=== PATIENT | male | born 1960 | race Caucasian/White ===

== ENCOUNTER → 2018-04-22 05:47 | Outpatient (CLI) | payer OTHER, SELFPAY ==
[2018-04-22 08:19] LABS: Hemoglobin A1c 6.1 % (4.2-6.3)
[2018-04-22 08:27] LABS: Microalbumin:Creatinine Ratio 58.2 mg/g CRE (<30 mg/g CRE)
[2018-04-22 08:35] LABS: ALB/GLOB Ratio 1.2 RATIO (0.9-2.4); AST(SGOT) 22 U/L (15-37); Alanine Aminotransfer ALT/SGPT 28 U/L (16-61); Albumin, Serum 4.3 g/dL (3.2-5.0); Alkaline Phosphatase 85 U/L (45-117); Anion Gap 7 (5-15); BUN 14 mg/dL (7-18); BUN/Creat Ratio 15.3 RATIO (10-20); Calcium,Total 9.4 mg/dL (8.5-10.1); Chloride 90 mmol/L (98-107); Cholesterol 161 mg/dL (200); Creatinine, Serum 0.92 mg/dL (0.70-1.30); EST Glomerular Filtration Rate 90 mL/min (>60); Est Glom Filt Rate - Afr Amer 109 mL/min (>60); Globulin 3.7 g/dL (2.2-4.2); Glucose 115 mg/dL (74-106); High Density Lipoprotein 64 mg/dL; Potassium 3.8 mmol/L (3.5-5.1); Sodium Level 126 mmol/L (136-145); Thyroid Stim Hormone (TSH) 2.23 uIU/mL (0.358-3.74); Triglycerides 52 mg/dL; Very Low Density Lipoprotein 10 mg/dL (5-40)
== END ==
PROVIDERS: Family Provider Family Medicine; PCP Family Medicine; Visit Provider Family Medicine
DX: I10 Essential (primary) hypertension (principal); E78.00 Pure hypercholesterolemia, unspecified; E11.69 Type 2 diabetes mellitus with other specified complication; R80.9 Proteinuria, unspecified
CPT/HCPCS: 36415; 80053; 80061; 82043; 82570; 83036; 84443

== ENCOUNTER → 2019-07-15 | Outpatient (CLI) | payer OTHER, SELFPAY ==
[2019-07-15 08:04] LABS: Microalbumin:Creatinine Ratio 56.5 mg/g CRE (<30 mg/g CRE)
[2019-07-15 08:13] LABS: ALB/GLOB Ratio 1.1 RATIO (0.9-2.4); AST(SGOT) 21 U/L (15-37); Alanine Aminotransfer ALT/SGPT 38 U/L (16-61); Alkaline Phosphatase 107 U/L (45-117); Anion Gap 10 (5-15); BUN 14 mg/dL (7-18); BUN/Creat Ratio 15.6 RATIO (10-20); Calcium,Total 9.4 mg/dL (8.5-10.1); Chloride 92 mmol/L (98-107); Cholesterol 148 mg/dL (200); EST Glomerular Filtration Rate 91 mL/min (>60); Est Glom Filt Rate - Afr Amer 110 mL/min (>60); Globulin 3.7 g/dL (2.2-4.2); Glucose 159 mg/dL (74-106); High Density Lipoprotein 42 mg/dL; Potassium 4.1 mmol/L (3.5-5.1); Protein, Total 7.7 g/dL (6.4-8.2); Sodium Level 130 mmol/L (136-145); Triglycerides 66 mg/dL; Very Low Density Lipoprotein 13 mg/dL (5-40)
[2019-07-15 08:32] LABS: Hemoglobin A1c 6.8 % (4.2-6.3)
[2019-07-27 12:07] LABS: Testosterone, Free 3.71 ng/dL (5.00-21.00)
[2019-07-27 16:50] LABS: Testosterone, % Free 1.67 % (1.50-4.20); Testosterone, Total 222 ng/dL (264-916)
== END | disposition home or self-care (01) ==
LOC: LAB 05:58
PROVIDERS: Family Provider Family Medicine; PCP Family Medicine; Referring Provider Family Medicine; Visit Provider Family Medicine
DX: I10 Essential (primary) hypertension (principal); E29.1 Testicular hypofunction; E11.29 Type 2 diabetes mellitus with other diabetic kidney complication; N28.9 Disorder of kidney and ureter, unspecified
CPT/HCPCS: 36415; 80053; 80061; 82043; 82570; 83036; 84402; 84403

== ENCOUNTER → 2019-09-16 06:07 | Outpatient (CLI) | payer OTHER, SELFPAY ==
[2019-09-16 07:46] LABS: Anion Gap 5 (5-15); BUN 11 mg/dL (7-18); BUN/Creat Ratio 11.6 RATIO (10-20); Calcium,Total 9.2 mg/dL (8.5-10.1); Chloride 95 mmol/L (98-107); Creatinine, Serum 0.95 mg/dL (0.70-1.30); EST Glomerular Filtration Rate 86 mL/min (>60); Est Glom Filt Rate - Afr Amer 104 mL/min (>60); Glucose 293 mg/dL (74-106); Potassium 4.1 mmol/L (3.5-5.1); Sodium Level 129 mmol/L (136-145)
[2019-09-16 08:28] LABS: Osmolality, Serum 283 mOsm/KG (280-301)
[2019-09-16 08:32] LABS: Osmolality, Urine 609 mOsm/KG
[2019-09-20 09:07] LABS: Testosterone, Free 5.63 ng/dL (5.00-21.00)
[2019-09-20 09:47] LABS: Testosterone, % Free 2.67 % (1.50-4.20); Testosterone, Total 211 ng/dL (264-916)
== END ==
PROVIDERS: Family Provider Family Medicine; PCP Family Medicine; Referring Provider Family Medicine; Visit Provider Family Medicine
DX: E87.1 Hypo-osmolality and hyponatremia (principal); R79.89 Other specified abnormal findings of blood chemistry; R53.83 Other fatigue
CPT/HCPCS: 36415; 80048; 83930; 83935; 84402; 84403

== ENCOUNTER → 2019-09-23 12:16 | Outpatient (CLI) | payer OTHER, SELFPAY ==
[2019-09-23 13:24] LABS: Absolute Lymphocyte Count 1.27 X10^3/uL (0.83-4.51); Absolute Neutrophil Count 3.7 X10^3/uL (2.0-7.7); Basophil# 0.09 X10^3/uL; Basophil% 1.5 % (0-1); Eosinophil# 0.22 X10^3/uL; Eosinophils% 3.8 % (0-5); Hematocrit 40.6 % (40-54); Hemoglobin 13.5 g/dL (13.0-16.5); Lymphocyte # 1.27 X10^3/ul (4.0); Lymphocyte % 21.8 % (19-41); Mean Corp Hgb Conc 33.3 g/dL (32-36); Mean Corpuscular Hgb 30.1 pg (27.0-32.0); Mean Corpuscular Volume 90.4 fL (80-94); Mean Platelet Vol. 10.8 fl (6.2-12.0); Monocyte# 0.55 X10^3/uL; Monocyte% 9.5 % (0-10); NRBC Flagged by Analyzer 0 % (0-5); Neutrophil # 3.68 X10^3/uL (2.7-7.7); Neutrophil % 63.2 % (47-70); Platelet Count 350 K/mm3 (150-450); RBC Distribution Width CV 12.8 % (11.6-14.6); RBC Distribution Width SD 42.3 fl (35.1-43.9); Red Blood Count 4.49 M/mm3 (4.6-6.2); White Blood Count 5.8 K/mm3 (4.4-11.0)
[2019-09-23 13:43] LABS: Hemoglobin A1c 9.1 % (4.2-6.3)
[2019-09-23 14:16] LABS: AST(SGOT) 21 U/L (15-37); Alanine Aminotransfer ALT/SGPT 54 U/L (16-61); Albumin, Serum 3.8 g/dL (3.2-5.0); Alkaline Phosphatase 122 U/L (45-117); Anion Gap 7 (5-15); BUN 17 mg/dL (7-18); Calcium,Total 9.1 mg/dL (8.5-10.1); Chloride 99 mmol/L (98-107); EST Glomerular Filtration Rate 81 mL/min (>60); Est Glom Filt Rate - Afr Amer 98 mL/min (>60); Globulin 3.9 g/dL (2.2-4.2); Glucose 239 mg/dL (74-106); Potassium 4.3 mmol/L (3.5-5.1); Protein, Total 7.7 g/dL (6.4-8.2); Sodium Level 132 mmol/L (136-145); Thyroid Stim Hormone (TSH) 1.66 uIU/mL (0.358-3.74)
[2019-09-23 14:39] LABS: Microalbumin:Creatinine Ratio 84.9 mg/g CRE (<30 mg/g CRE)
[2019-09-26 09:40] LABS: PSA,Total - Annual Screen 0.18 ng/mL (0.00-4.00)
== END ==
PROVIDERS: PCP Family Medicine; Referring Provider Family Medicine; Visit Provider Family Medicine
DX: I10 Essential (primary) hypertension (principal); E34.9 Endocrine disorder, unspecified; E11.21 Type 2 diabetes mellitus with diabetic nephropathy
CPT/HCPCS: 36415; 80053; 82043; 82570; 83036; 84153; 84443; 85025; G0103

== ENCOUNTER 2019-11-17 08:01 | Inpatient (IN) | payer OTHER, SELFPAY ==
[2019-11-17] VITALS (14 sets, daily range): BP systolic 135–193; BP diastolic 84–110; PULSE 71–105; RESP 17–27; TEMP 36.5–37.1; O2SAT 79–96; BMI 45.5; BMI 42.8
--- NOTE | 2019-11-17 08:12 | RAD_ITS ---
STUDY: X-RAY CHEST REASON FOR EXAM: Male, 59 years old. Increase SOB TECHNIQUE: Single AP portable view of the chest. COMPARISON: None. FINDINGS: EKG electrodes are seen. There is evidence of vascular congestion and increased interstitial markings in keeping with CHF. There is no demonstrated pleural abnormality. There is mild cardiac enlargement. Normal mediastinum and riana. Normal visualized pulmonary arteries. Normal visualized aortic arch and descending thoracic aorta. There are diffuse degenerative changes of the visualized thoracic spine. Normal visualized ribs, clavicles, and shoulders. There is no demonstrated abnormality of the visualized soft tissue structures of the upper abdomen. RAD/Chest 1 View (Portable) IMPRESSION: Mild cardiomegaly and CHF. Electronically Signed: Tutu Royal, at 8:43 EDT , Service support ,
--- NOTE | 2019-11-17 08:13 | EKG12_ITS ---
Test Reason : SOB Blood Pressure : / mmHG Vent. Rate : 102 BPM Atrial Rate : 102 BPM P-R Int : 208 ms QRS Dur : 102 ms QT Int : 342 ms P-R-T Axes : 000 048 037 degrees QTc Int : 445 ms Sinus tachycardia with occasional Premature ventricular complexes ST depression, consider subendocardial injury Abnormal ECG Confirmed by JOHN CHAPPELL, PHYLLIS ([id number]), editorial specialist SHAW HERNANDEZ ([id number]) on 11/18/2019 1:04:46 PM Referred By: ADELA Confirmed By:ROSALINDA LOPEZ MD
--- NOTE | 2019-11-17 08:15 | ED.VIS.GEN ---
History of Present Illness Chief Complaint: Shortness of Breath Informant: Patient Onset: Days Context: Gradual Onset Timing: Continuous Narrative: Patient is a 59 year old male with history of HTN and DM presenting from home for worsening shortness of breath. He states he is had worsening shortness of breath for the past week or so. He states he has had worsening dyspnea on exertion it was especially bad this morning which is why he came to the emergency room. He had a cough is been productive of sputum that is ranged from green to brown. He does have chest tightness and he states he has chest pain as if he just ran a lot and his lungs hurt. He states he has had some sweating associate with the shortness of breath but is not had any fever. He denies any nausea, vomiting or bowel changes. He denies any swelling of his legs or weight change. Denies any urinary symptoms. He denies any sick contacts. States he is never had problems with his breathing before. He denies any tobacco history. Past Medical History - Allergies and Home Meds Allergies/Adverse Reactions: Allergies No Known Allergies Allergy (Verified 11/17/19 08:02) Primary Care Physician: Josué Rodriguez MD [Primary Care Provider] - Past Medical History: - - Hypertension, hyperlipidemia Surgical History: noncontributory Smoking Status: Never smoker Alcohol: None Drugs: None Review of Systems General: Reports: Malaise, Sweats. Denies: Chills, Fever Eyes: Denies: Visual changes - bilaterally, Diplopia ENT: Denies: Rhinorrhea, Sore throat Cardiovascular: Reports: Chest pain. Denies: Palpitations Respiratory: Reports: Dyspnea, Cough, Sputum, Dyspnea on exertion Gastrointestinal: Denies: Abdominal pain, Nausea, Vomiting, Diarrhea, Melena, Hematochezia Genitourinary: Denies: Dysuria, Hematuria, Frequency Musculoskeletal: Denies: Back pain, Extremity Pain Skin: Denies: Rash, Wounds Neurological: Denies: Headache, Weakness, Numbness Physical Exam Vital Signs/Narrative: Vital Signs Temp Pulse Resp BP Pulse Ox 11/17/19 08:03 98.5 F 105 H 27 H 193/110 H 89 Inital Vital Signs reviewed: Yes General: Well nourished, Well developed, Obese, Acute Distress Head: Normocephalic, Atraumatic Eyes: Perrl, EOMI ENT: Moist mucous membranes, No rhinorrhea Neck: Supple, Nontender, No JVD Cardiovascular: Regular rhythm, No murmurs, Tachycardia Respiratory: Chest nontender, Diminished, Decreased Air Movement. Negative for: Wheezing, Retractions Abdomen: Soft, Nontender, Nondistended, Normal bowel sounds Back: Nontender, Normal Inspection Extremities: Nontender, No edema Skin: Normal color, No rash, Diaphoresis Neurological: Alert, Oriented x3, Cranial nerves II-XII grossly intact, Normal Strength, Normal Sensation Psychological: Normal affect, Normal Mood Diagnostic/Tx/Re-eval Chest X-Ray - ED: 1 View, Read by ED Physician, Read by Radiologist, Cardiomegaly, CHF Clinical Impression(s) from Imaging Studies Chest X-Ray 11/17/19 08:12 IMPRESSION: Mild cardiomegaly and CHF. Electronically Signed: Tutu Lele, at 8:43 EDT , Service support , Laboratory Data 11/17/19 11/17/19 11/17/19 08:10 08:10 08:10 WBC 11.5 H RBC 4.94 Hgb 14.8 Hct 45.5 MCV 92.1 MCH 30.0 MCHC 32.5 RDW Std Deviation 44.2 H RDW Coeff of [place] 13.2 Plt Count 384 MPV 10.9 Immature Gran % (Auto) 0.400 Neut % (Auto) 69.2 Lymph % (Auto) 18.0 L [place] % (Auto) 8.6 Eos % (Auto) 2.8 Baso % (Auto) 1.0 Absolute Neuts (auto) 7.9 H Absolute Lymphs (auto) 2.06 Nucleated RBC % 0 Sodium 136 Potassium 3.7 Chloride 102 Carbon Dioxide 26.0 Anion Gap 8 BUN 17 Creatinine 1.08 Estim Creat Clear Calc 76.50 Est GFR (MDRD) Af Amer 89 Est GFR (MDRD) Non-Af 74 BUN/Creatinine Ratio 15.7 Glucose 342 H Lactic Acid 3.8 H* Calcium 9.2 Troponin I 0.375 H B-Natriuretic Peptide 11/17/19 08:10 WBC RBC Hgb Hct MCV MCH MCHC RDW Std Deviation RDW Coeff of [place] Plt Count MPV Immature Gran % (Auto) Neut % (Auto) Lymph % (Auto) [place] % (Auto) Eos % (Auto) Baso % (Auto) Absolute Neuts (auto) Absolute Lymphs (auto) Nucleated RBC % Sodium Potassium Chloride Carbon Dioxide Anion Gap BUN Creatinine Estim Creat Clear Calc Est GFR (MDRD) Af Amer Est GFR (MDRD) Non-Af BUN/Creatinine Ratio Glucose Lactic Acid Calcium Troponin I B-Natriuretic Peptide 261.9 H - Rhythm Strip Rhythm Strip: Sinus Tach Rate: 102 Ectopy: PVC(s) - EKG Initial EKG Interpretation: Sinus Tachycardia, - - Sinus tachycardia at a rate of 102 with PVCs present Normal axis TX interval [address] depression in lateral leads, no reciprocal changes - Medical Decision Making Patient is evaluated for hypoxia and increased work of breathing. Patient is initially requiring 5 L of O2 it is still only at 90% saturation. Physical exam is more concerning for respiratory infection. Chest x-ray is consistent with cardiomegaly and pulmonary vascular congestion/CHF. His proBNP is also elevated. A fluids which were initially ordered are discontinued. Patient does have an elevated lactic acid but I suspect this is secondary to his hypoxia and not necessarily infectious. Because of the time of year with respiratory illnesses I did order a flu swab and respiratory viral panel however. Patient does have bumped troponin as well. He is given aspirin and IV Lasix in the emergency room. He does have improvement of his respiratory symptoms while in the emergency room and is weaned down on his oxygen. He will be admitted to the PCU for further cardiac evaluation. He is agreeable with this plan. He stable for PCU at time of disposition. Case is discussed with Dr. Wise. ED Disposition - Plan for ED Patient: Disposition: Acute Care Hospital [facility] Diagnosis: Acute exacerbation of CHF (congestive heart failure), Elevated troponin, Acute respiratory failure with hypoxia Referrals: Josué Rodriguez MD [Primary Care Provider] -
[2019-11-17 08:32] LABS: Absolute Lymphocyte Count 2.06 X10^3/uL (0.83-4.51); Absolute Neutrophil Count 7.9 X10^3/uL (2.0-7.7); Basophil# 0.12 X10^3/uL; Eosinophil# 0.32 X10^3/uL; Eosinophils% 2.8 % (0-5); Hematocrit 45.5 % (40-54); Hemoglobin 14.8 g/dL (13.0-16.5); Lymphocyte # 2.06 X10^3/ul (4.0); Mean Corp Hgb Conc 32.5 g/dL (32-36); Mean Corpuscular Volume 92.1 fL (80-94); Mean Platelet Vol. 10.9 fl (6.2-12.0); Monocyte# 0.99 X10^3/uL; Monocyte% 8.6 % (0-10); NRBC Flagged by Analyzer 0 % (0-5); Neutrophil # 7.91 X10^3/uL (2.7-7.7); Neutrophil % 69.2 % (47-70); Platelet Count 384 K/mm3 (150-450); RBC Distribution Width CV 13.2 % (11.6-14.6); RBC Distribution Width SD 44.2 fl (35.1-43.9); Red Blood Count 4.94 M/mm3 (4.6-6.2); White Blood Count 11.5 K/mm3 (4.4-11.0)
[2019-11-17 08:50] LABS: BNP,B-Type NATRIURETIC PEPTIDE 261.9 pg/mL (0-100)
[2019-11-17 08:52] LABS: Anion Gap 8 (5-15); BUN 17 mg/dL (7-18); BUN/Creat Ratio 15.7 RATIO (10-20); Calcium,Total 9.2 mg/dL (8.5-10.1); Chloride 102 mmol/L (98-107); Creatinine, Serum 1.08 mg/dL (0.70-1.30); EST Glomerular Filtration Rate 74 mL/min (>60); Est Glom Filt Rate - Afr Amer 89 mL/min (>60); Glucose 342 mg/dL (74-106); Potassium 3.7 mmol/L (3.5-5.1); Sodium Level 136 mmol/L (136-145)
[2019-11-17 08:53] LABS: Lactic Acid 3.8 mmol/L (0.4-1.9)
[2019-11-17] MEDS: Albuterol 2.5 MG/3 ML VIAL.NEB. INHALATION (08:53)
--- NOTE | 2019-11-17 09:10 | HP.PCM_ITS ---
History of Present Illness Date of Admission: 11/17/19 Chief Complaint: shortness of breath The patient is a 59 year old M with a past medical history which includes diabetes and high blood pressure. He was admitted through the ED on 11/17/2019 with a complaint of shortness of breath which have been going on for a few days but at worsened. Shortness of breath was worsened by exertion and relieved by rest. With exertion he also had chest tightness. He says he has been sleeping with 2 pillows for a while now because of shortness of breath but denied any PND. He did admit to swelling in his lower extremities. He denied any palpitations, dizziness, nausea vomiting or diarrhea. Review of systems other vázquez negative. On review, temperature was 98.8 with blood pressure of 149/90 and pulse rate of 88 as well as respiratory of 17. Blood pressure has been up at 193/110 at time he presented in the ED. Was saturating at 95% on 2 L of oxygen. Chemistry showed lactic acid of 3.8 and initial troponin of 0.375. BNP was 261.9. CBC showed WBC of 11.5 but was otherwise unremarkable. EKG showed mild ST depression in the lateral leads. Chest x-ray showed mild cardiomegaly and CHF. He has been admitted to be managed for acute heart failure with unknown EF and intermediate troponins. [] Past Medical History Past Medical History (Chronic Problems): Chronic Problems Acute exacerbation of CHF (congestive heart failure) (Chronic) Allergies No Known Allergies Allergy (Verified 11/17/19 08:02) Home Medications: Ambulatory Orders Medication Instructions Recorded Acarbose 100 mg PO QHS 11/17/19 Amlodipine [Norvasc] 10 mg PO DAILY 11/17/19 Atorvastatin Calcium [Lipitor] 80 mg PO QHS 11/17/19 Fluticasone 0.05% [Flonase Nasal 2 spray INHALATION DAILY 11/17/19 [place]] Glimepiride 2 mg PO DAILY 11/17/19 Ipratropium [place] 1 spray INHALATION DAILY 11/17/19 Levocetirizine Dihydrochloride 5 mg PO DAILY 11/17/19 Losartan Potassium 100 mg PO QHS 11/17/19 Temazepam 15 mg PO QHS PRN 11/17/19 Testosterone Cypionate 200 mg IM Q14D 11/17/19 metFORMIN HCl [Glucophage] 1,000 mg PO BIDCM 11/17/19 Surgical History: noncontributory Psychiatric History: No pertinent psych hx Lives: Spouse/ Significant Other Smoking Status: Never smoker Alcohol: None Drugs: None - *Family History Maternal History Items: Hypertension Paternal History Items: Heart Disease, Hypertension Review of Systems Constitutional: Denies: Chills, Fever, Malaise, Weakness, Weight Change Eyes: Denies: Blurred vision HEENT: Denies: Head Aches, Sinus Congestion, Sinus Drainage Cardiovascular: Reports: Chest Pressure, Edema. Denies: Chest Pain, Heaviness, Light Headedness, Orthopnea, Palpitations, Paroxysmal Noc. Dyspnea Respiratory: Reports: Shortness of Breath, Shortness of breath upon exertion. Denies: Cough, Shortness of breath at rest, Sputum production Gastrointestinal: Denies: Abdominal Pain, Nausea, Vomiting Genitourinary: Denies: Dysuria Musculoskeletal: Denies: Joint Pain, Joint Tenderness Skin: Denies: Rash, Wounds Neurological: Denies: Numbness, Tingling, Focal weakness Psychiatric: Denies: Anxiety, Depression, Homicidal Ideations, Suicidal Ideations Hematologic/ Lymphatic: Denies: Easy Bruising, Easy Bleeding VTE Information - Inpt Only VTE Present on Admission: No VTE Pharm Prophylaxis ordered?: Yes Patient Problems: Active and Suspected Problems Elevated troponin (Acute) Acute respiratory failure with hypoxia (Acute) - Physical Exam Vitals/I&O's: Vital Signs Temp Pulse Resp BP Pulse Ox 98 F 85 20 H 193/110 H 93 11/17/19 08:04 11/17/19 08:50 11/17/19 08:50 11/17/19 08:04 11/17/19 08:50 Oxygen Flow Rate (L/min) 3.5 Oxygen Delivery Method Nasal Cannula Weight: 326 lb 4.546 oz Body Mass Index (BMI) 45.5 General: Alert, Oriented x3, Cooperative, No apparent distress HEENT: Atraumatic, PERRLA, EOMI, Normocephalic Oral: Moist Mucosa Neck: Supple, No JVD, Negative Carotid Bruits Lungs: - - diminished breath sounds bibasally, no wheezes or crackles. on 2L of oxygen Cardiovascular: Regular rate, Regular Rhythm, Normal S1, Normal S2, No murmurs Abdomen: Bowel Sounds Present, Soft, Non Tender, Non-Distended, No Hepato- splenomegaly Extremities: No clubbing, No cyanosis, Capillary Refill Less than 3 Seconds, - - minimal 1+ pitting pedal edema Skin: No rashes, No breakdown Musculoskeletal: No Tenderness to Palpation of Joints or Extremities Lymphatic: No Cervical, Supraclavicular, or Inguinal Adenopathy Neurological: Cranial nerves II-XII grossly intact, Neuro grossly intact, Motor Exam 5/5 strength throughout Psych/Mental Status: Normal Affect, Appropriate, Alert and oriented to time, place, person, mood and affect Laboratory Results 11/17/19 08:10: WBC 11.5 H, RBC 4.94, Hgb 14.8, Hct 45.5, MCV 92.1, MCH 30.0, MCHC 32.5, RDW Std Deviation 44.2 H, RDW Coeff of [place] 13.2, Plt Count 384, MPV 10.9, Immature Gran % (Auto) 0.400, Neut % (Auto) 69.2, Lymph % (Auto) 18.0 L, [place] % (Auto) 8.6, Eos % (Auto) 2.8, Baso % (Auto) 1.0, Absolute Neuts (auto) 7.9 H, Absolute Lymphs (auto) 2.06, Nucleated RBC % 0 11/17/19 08:10: Sodium 136, Potassium 3.7, Chloride 102, Carbon Dioxide 26.0, Anion Gap 8, BUN 17, Creatinine 1.08, Estim Creat Clear Calc 76.50, Est GFR (MDRD) Af Amer 89, Est GFR (MDRD) Non-Af 74, BUN/Creatinine Ratio 15.7, Glucose 342 H, Calcium 9.2, Troponin I 0.375 H 11/17/19 08:10: Lactic Acid 3.8 H* 11/17/19 08:10: B-Natriuretic Peptide 261.9 H Diagnostic Data Chest X-Ray 11/17/19 08:12 IMPRESSION: Mild cardiomegaly and CHF. Electronically Signed: Tutu Royal, at 8:43 EDT , Service support , Assessment/Plan All Active Problems Elevated troponin (Acute) Acute respiratory failure with hypoxia (Acute) 59 y/o admitted with a complaint of shortness of breath adn chest tightness with exertion 1. Acute heart failure of unknown EF * BNP is 261, it must be noted the patient is obese. * Chest x-ray shows mild cardiomegaly and CHF. * Initial troponin was 0.375 and peaked at 0.384. * No echo on file and patient has no known history of CHF. * Admit to PCU with telemetry * Diuresed with IV Lasix 40 mg twice daily. Monitor intake and output. * Fluid restrictions thousand 500 cc daily. * 2D echo ordered. * Cardiology consulted in light of mild elevated troponins. * 2. Chest pain to r./o ACS * Does complain of exertional chest tightness relieved by rest and is associated with exertional shortness of breath. * Patient symptoms appear to be classic for chest pain of cardiac origin. Initial troponin was 0.375 and peaked at 0.384. * Consult cardiology. Patient is very high risk with his obesity and risk factors of hypertension and diabetes as well as high cholesterol. * I think he will benefit from a cath as he is already high risk. * 3. Hypertension: * Fully controlled * BP was 193/110 at time of admission in ED.On amlodipine 10 mg daily and indapamide 1.25 mg daily. * Also on losartan 100 mg nightly. * IV hydralazine PRN for blood pressure more than 1 60/110. * 4. Type 2 diabetes mellitus: * We will check A1c. * Hold home acarbose and home metformin as well as home glimepiride. * Insulin sliding scale. * Accu-Cheks AC at bedtime. 5. Hyperlipidemia: * We will check lipid panel. * On atorvastatin 80 mg nightly. * DVT prophylaxis; lovenox Code status: full code * Patient and counseled extensively about different types of CODE STATUS including full code, DNR CCA and DNR CCA. Patient elects to be full code. Total [id number] time 18 minutes. Inpatient E&M: 86495 Init Hosp L3 Procedures: 72142 Advncd Care Plan 30 Min
--- NOTE | 2019-11-17 09:13 | ED.RN ---
SEPSIS ALERT INITIATED, LACTIC AND CULTURES ALREADY DRAWN, PER DR CHAPMAN PT HAS CHF
[2019-11-17] MEDS: Furosemide 40 MG/4 ML Vial IV ×2 (09:25→17:25)
[2019-11-17 12:24] LABS: Reflex Lactate? Y
--- NOTE | 2019-11-17 13:17 | ECHOCS_ITS ---
Reason For Study: heart failure Procedure This was a 2D Doppler, Color Flow transthoracic echocardiogram. The study was technically difficult. Due to body habitus. Contrast injection was performed. Exam performed portable in patient room. Left Ventricle Normal LV size. Mild concentric left ventricular hypertrophy. Left ventricular systolic function is normal. The estimated ejection fraction is 65 %. Stage 2 diastolic dysfunction. No regional wall motion abnormalities noted. Right Ventricle Normal RV size. Normal systolic function. Atria The left atrium is moderately enlarged. Normal right atrium. Mitral Valve Mitral valve not well visualized. Tricuspid Valve The tricuspid valve is not well visualized. Aortic Valve The aortic valve is not well visualized. Peak aortic valve gradient 25 mmHg. Mean aortic valve gradient 15 mmHg. Mild aortic stenosis. Great Vessels Normal aortic root. Pericardium/Pleural No pericardial effusion. Medication Diluted definity 3.0ml given slow IV push to enhance endocardial definition. MMode/2D Measurements & Calculations LVIDd: 5.8 cm IVSd: 1.3 cm LVOT diam: 2.3 cm LVIDs: 4.7 cm LVPWd: 1.3 cm LVOT area: 4.3 cm2 RVDd: 3.3 cm FS: 18.8 % Ao root diam: 3.7 cm LAV(MOD-bp): 84.6 ml LA A4 area: 23.5 cm2 LAV(MOD-bp) Indexed: 32.6 ml/m2 LAV(MOD-sp2): 87.6 ml LAV(MOD-sp4): 82.0 ml LA dimension(2D): 5.0 cm RA A4 area: 17.2 cm2 Time Measurements MV dec time: 0.14 sec Doppler Measurements & Calculations MV E max nhan: 90.8 cm/sec Lat Peak E' Nhan: 11.4 cm/sec Med Peak E' Nhan: 5.1 cm/sec MV A max nhan: 75.3 cm/sec E/E' lat: 8.0 E/E' med: 17.9 MV E/A: 1.2 Ao V2 max: 258.5 cm/sec LV V1 max: 101.2 cm/sec SV(LVOT): 81.2 ml Ao max P.4 mmHg LV V1 max P.1 mmHg Ao V2 mean: 193.7 cm/sec LV V1 mean P.4 mmHg Ao mean P.1 mmHg LV V1 mean: 73.7 cm/sec Ao V2 VTI: 49.6 cm LV V1 VTI: 19.0 cm ALBINO(I,D): 1.6 cm2 ALBINO(V,D): 1.7 cm2 PA V2 max: 110.6 cm/sec Interpretation Summary Normal LV size. Mild concentric left ventricular hypertrophy. Left ventricular systolic function is normal. The estimated ejection fraction is 65 %. The left atrium is moderately enlarged. Stage 2 diastolic dysfunction. Ordering Physician: Marilyn Wise Referring Physician: Josué Rodriguez Performed By: Abi Koch, VANNESA, RVT
[2019-11-17 13:19] LABS: Lactic Acid 1.9 mmol/L (0.4-1.9)
[2019-11-17 13:58] LABS: Cholesterol 181 mg/dL (200); High Density Lipoprotein 42 mg/dL; Triglycerides 116 mg/dL; Very Low Density Lipoprotein 23 mg/dL (5-40)
[2019-11-17] MEDS: 0.9% Saline Lock 10 ML Syringe IV (17:25)
--- NOTE | 2019-11-17 17:31 | CON.PCM_ITS ---
Reason for Consult Date of Consultation: 11/17/19 Reason for Consultation: Shortness of breath and chest pain History of Present Illness: The patient is a 59 year old M with a past medical history which includes diabetes, hyperlipidemia, obesity and high blood pressure. He was admitted through the ED on 11/17/2019 with a complaint of shortness of breath which have been going on for a few days but at worsened. Shortness of breath was worsened by exertion and relieved by rest. With exertion he also had chest tightness. He says he has been sleeping with 2 pillows for a while now because of shortness of breath but denied any PND. He did admit to swelling in his lower extremit ies. He denied any palpitations, dizziness, nausea vomiting or diarrhea. He has not had any near syncope or syncope. He says that his exertional capacity has reduced quite a bit. Due to the concerns of the above he presented to the emergency room. He was evaluated he was noted to have mildly elevated blood pressure, elevated natruretic peptide level as well as EKG changes with lateral ST depression. Troponins were also noted to be abnormal. Cardiology was called for further evaluation and management. Past Medical History Allergies/Adverse Reactions: Allergies No Known Allergies Allergy (Verified 11/17/19 08:02) Home Medications: Ambulatory Orders Medication Instructions Recorded Acarbose 100 mg PO QHS 11/17/19 Amlodipine [Norvasc] 10 mg PO DAILY 11/17/19 Atorvastatin Calcium [Lipitor] 80 mg PO QHS 11/17/19 Fluticasone 0.05% [Flonase Nasal 2 spray INHALATION DAILY 11/17/19 [place]] Glimepiride 2 mg PO DAILY 11/17/19 Ipratropium [place] 1 spray INHALATION DAILY 11/17/19 Levocetirizine Dihydrochloride 5 mg PO DAILY 11/17/19 Losartan Potassium 100 mg PO QHS 11/17/19 Temazepam 15 mg PO QHS PRN 11/17/19 Testosterone Cypionate 200 mg IM Q14D 11/17/19 metFORMIN HCl [Glucophage] 1,000 mg PO BIDCM 11/17/19 Past Medical History (Chronic Problems): Chronic Problems Acute exacerbation of CHF (congestive heart failure) (Chronic) Surgical History: noncontributory Psychiatric History: No pertinent psych hx - *Family History Maternal History Items: Hypertension Paternal History Items: Heart Disease, Hypertension Lives: Spouse/ Significant Other Smoking Status: Never smoker Tobacco Use: Non-smoker Alcohol: None Drugs: None Review of Systems - Review of Systems General: Denies: Fever, Night Sweats, Fatigue HEENT: Denies: Vision Change Cardiovascular: Reports: Chest Discomfort, Chest Discomfort with Exertion, Shortness of Breath, Shortness of Breath at Rest, Shortness of Breath with Exertion, Peripheral Edema. Denies: Orthopnea, PND, Palpitations, Lightheadedness, Dizziness, Near Syncope, Syncope Respiratory: Denies: Cough, Sputum Production, Hemoptysis Gastrointestinal: Denies: Hematemesis, Hematochezia, Melena Genitourinary: Denies: Dysuria, Hematuria Muscoloskeletal: Denies: Myalgias Skin: Denies: Rash Neurological: Denies: Dizziness Psychiatric: Denies: Anxiety Endocrine: Denies: Unexplained Weight Loss Hematologic/ Lymphatic: Denies: Anemia Subjectve: Pleasant gentleman in no distress at this time sitting in bed Objective: Vital Signs Temp Pulse Resp BP Pulse Ox 97.7 F L 81 18 143/90 H 95 11/17/19 13:20 11/17/19 13:25 11/17/19 13:20 11/17/19 13:20 11/17/19 13:20 Oxygen Flow Rate (L/min) 2 Oxygen Delivery Method Room Air Weight: 307 lb 1.663 oz Body Mass Index (BMI) 42.8 Intake and Output for Last 24 Hours 11/15/19 11/16/19 11/17/19 23:59 23:59 23:59 Intake Total 240 / 240 Output Total 300 / 300 Balance -60 / -60 General: Awake, Alert, Oriented x 3 HEENT: PERRL, EOMI, Sclera Non Icteric Neck: Supple, Good ROM, No Lymph Node Enlargement Lungs: Diminished Sam Bases Cardiovascular: Regular Rhythm, Normal S1, Normal S2, No Murmurs, No Rubs, No Gallops Vascular: No Carotid Bruits, Normal Femoral Pulses, Normal Radial Pulses, Normal Dorsalis Pedal Pulse, Normal Posterior Tibial Pulses Abdomen: Bowel Sounds Present, Soft, Non Tender, No HSM, No Organomegaly Extremities: No Cyanosis, No Clubbing, Trace RLE Edema, Trace LLE Edema Musculoskeletal: No Erythema Skin: No Rashes Lymphatic: No Lymph Node Enlargement Neurological: No Focal Motor or Sensory Deficit Psych/Mental Status: Appropriate 11/17/19 08:10: WBC 11.5 H, RBC 4.94, Hgb 14.8, Hct 45.5, MCV 92.1, MCH 30.0, MCHC 32.5, Plt Count 384, MPV 10.9, Immature Gran % (Auto) 0.400, Neut % (Auto) 69.2, Lymph % (Auto) 18.0 L, [place] % (Auto) 8.6, Eos % (Auto) 2.8, Baso % (Auto) 1.0, Absolute Neuts (auto) 7.9 H, Nucleated RBC % 0 11/17/19 08:10: Sodium 136, Potassium 3.7, Chloride 102, Carbon Dioxide 26.0, An ion Gap 8, BUN 17, Creatinine 1.08, Est GFR (MDRD) Af Amer 89, Est GFR (MDRD) Non-Af 74, BUN/Creatinine Ratio 15.7, Glucose 342 H, Calcium 9.2, Troponin I 0.375 H 11/17/19 08:10: Lactic Acid 3.8 H* 11/17/19 08:10: B-Natriuretic Peptide 261.9 H 11/17/19 08:10: Triglycerides 116, Cholesterol 181, LDL Cholesterol 116, VLDL Cholesterol 23, HDL Cholesterol 42 11/17/19 12:10: Troponin I 0.368 H 11/17/19 12:35: Lactic Acid 1.9 11/17/19 15:08: Troponin I 0.384 H Rhythm: EKG: Normal sinus rhythm with lateral ST changes ECHO: Preserved left ventricular systolic function. Estimated EF 65% Stress Test: Cardiac Cath: PCI: CT Surgery: Holter monitor: EPS: PPM: CXR: Chest CT Scan: Assessment/Plan 1. Shortness of breath-congestive heart failure with preserved ejection fraction * Patient presents with progressive shortness of breath and noted to have an elevated natruretic peptide level. The above appears to be consistent with congestive heart failure with preserved ejection fraction. My recommendation would be to institute diuresis with intravenous Lasix. * The exact etiology is unclear at this particular time. It could be secondary to hypertension or occult coronary artery disease. * 2. Abnormal cardiac enzymes * Patient presents with shortness of breath and is noted to have abnormal cardiac enzymes together with EKG changes in the lateral leads. With his risk factors of obesity, hypertension, diabetes mellitus, hyperlipidemia my suspicion for coronary artery disease is high. I would recommend at this time that we consider a left heart catheterization. The risk benefits and alternatives of been explained to them they understand and agreed to proceed. This was discussed with the patient and his . * 3. Hypertension * Continue current medical therapy with amlodipine, losartan, and consider metoprolol 50 mg long-acting daily * 4. Risk factor modification * Patient will need aggressive risk factor modification. This would include diet, exercise as well as continuation of his lipid-lowering therapy. * * Thank you for allowing me to participate in the care of your patient. Please don't hesitate to call if any issues arise
[2019-11-17] MEDS: Insulin Lispro 100 UNIT/ML INSULN.PEN SC ×2 (18:05→21:10)
[2019-11-17 18:15] LABS: Bedside Glucose 228 mg/dL (70-110)
[2019-11-17] MEDS: Clopidogrel Bisulfate 300 MG Tablet PO (18:44)
[2019-11-17 20:21] LABS: Bacteria 0 SEEN /hpf (None Seen); Mucous, Urine 0 SEEN /hpf (<or=2+); Red Blood Cells-Urine 0 SEEN /hpf (0-5); Squamous Epithelial Cells - UA 0 SEEN /hpf (0-5); White Blood Cells 0 SEEN /hpf (0-5)
[2019-11-17 20:23] LABS: Color, Urine Yellow (Yellow); Glucose, Dipstick 250 mg/dl (Normal); Ketone-Dipstick Negative (Negative); Leukocyte Esterase-Dipstick Negative /ul (Negative); Nitrite-Dipstick Negative (Negative); Occult Blood-Urine 10 /ul (Negative); Protein-Dipstick 100 mg/dl (Negative); Specific Gravity, Urine 1.015 (1.002-1.030); Urine Bilirubin Dipstick Negative (Negative); Urine Clarity Sl. Cloudy (Clear); Urine Urobilinogen Normal (Normal)
[2019-11-17] MEDS: Metoprolol(XL)Succ 50 MG Tablet PO (21:00)
[2019-11-17] MEDS: Atorvastatin Calcium 80 MG Tablet PO (21:05)
[2019-11-17] MEDS: Losartan Potassium 100 MG Tablet PO (21:05)
[2019-11-17] MEDS: Temazepam 15 MG Capsule PO (21:10)
[2019-11-17 23:26] LABS: Bedside Glucose 271 mg/dL (70-110)
[2019-11-18] VITALS (17 sets, daily range): BP systolic 125–156; BP diastolic 78–106; PULSE 62–75; RESP 16–20; TEMP 36.6–36.8; O2SAT 90–97
--- NOTE | 2019-11-18 05:55 | EKG12_ITS ---
Test Reason : AM EKG Blood Pressure : / mmHG Vent. Rate : 069 BPM Atrial Rate : 069 BPM P-R Int : 246 ms QRS Dur : 100 ms QT Int : 422 ms P-R-T Axes : 038 033 064 degrees QTc Int : 452 ms Sinus rhythm with 1st degree A-V block Nonspecific ST and T wave abnormality Abnormal ECG When compared with ECG of 17-NOV-2019 08:07, MANUAL COMPARISON REQUIRED, DATA IS UNCONFIRMED Confirmed by ELDA CHAPPELL, GALI ([id number]), material expeditor SHAW HERNANDEZ ([id number]) on 11/22/2019 7:50:49 AM Referred By: CHELSEY Confirmed By:GALI SCHROEDER MD
[2019-11-18 05:58] LABS: Absolute Lymphocyte Count 1.31 X10^3/uL (0.83-4.51); Absolute Neutrophil Count 4.8 X10^3/uL (2.0-7.7); Basophil# 0.09 X10^3/uL; Basophil% 1.2 % (0-1); Eosinophil# 0.23 X10^3/uL; Eosinophils% 3.2 % (0-5); Hematocrit 40.3 % (40-54); Hemoglobin 13.1 g/dL (13.0-16.5); Lymphocyte # 1.31 X10^3/ul (4.0); Lymphocyte % 18.1 % (19-41); Mean Corp Hgb Conc 32.5 g/dL (32-36); Mean Corpuscular Hgb 29.8 pg (27.0-32.0); Mean Corpuscular Volume 91.6 fL (80-94); Mean Platelet Vol. 10.9 fl (6.2-12.0); Monocyte% 11.1 % (0-10); NRBC Flagged by Analyzer 0 % (0-5); Neutrophil # 4.78 X10^3/uL (2.7-7.7); Neutrophil % 66.1 % (47-70); Platelet Count 317 K/mm3 (150-450); RBC Distribution Width CV 13.2 % (11.6-14.6); RBC Distribution Width SD 44.2 fl (35.1-43.9); White Blood Count 7.2 K/mm3 (4.4-11.0)
[2019-11-18 06:45] LABS: Anion Gap 6 (5-15); BUN 17 mg/dL (7-18); BUN/Creat Ratio 15.9 RATIO (10-20); Calcium,Total 8.4 mg/dL (8.5-10.1); Chloride 100 mmol/L (98-107); Creatinine, Serum 1.07 mg/dL (0.70-1.30); EST Glomerular Filtration Rate 75 mL/min (>60); Est Glom Filt Rate - Afr Amer 90 mL/min (>60); Estimated Creatinine Clearance 77.22 ml/min; Glucose 258 mg/dL (74-106); Potassium 3.7 mmol/L (3.5-5.1); Sodium Level 136 mmol/L (136-145)
[2019-11-18] MEDS: Metoprolol(XL)Succ 50 MG Tablet PO (06:50)
[2019-11-18] MEDS: Clopidogrel Bisulfate 75 MG Tablet PO (06:50)
[2019-11-18] MEDS: amLODIPine 10 MG Tablet PO (06:50)
[2019-11-18] MEDS: Aspirin 81 MG TAB.CHEW PO (06:50)
[2019-11-18 07:21] LABS: Bedside Glucose 264 mg/dL (70-110)
[2019-11-18] MEDS: Insulin Lispro 100 UNIT/ML INSULN.PEN SC (07:21)
--- NOTE | 2019-11-18 09:13 | CASEMGMT ---
According to the [employer] website, the following are in-network tertiary facilities: [facility], [place], [place], [facility], [facility], [facility], and . Bakari PENNINGTON CM
[2019-11-18 11:15] LABS: Bedside Glucose 239 mg/dL (70-110)
--- NOTE | 2019-11-18 11:19 | NURSING ---
report called to catheterization laboratory technician.
--- NOTE | 2019-11-18 12:00 | CASEMGMT ---
This RN CM to room to complete CM assessment at this time and pt is out of the dept for heart cath at this time. Will attempt again later. SStlynda PENNINGTON CM
--- NOTE | 2019-11-18 12:49 | PN.CARD_ITS ---
Subjectve: patient seen and evaluated Objective: Vital Signs Temp Pulse Resp BP Pulse Ox 97.8 F 66 18 143/81 H 94 11/18/19 10:15 11/18/19 10:15 11/18/19 10:15 11/18/19 10:15 11/18/19 10:15 Oxygen Flow Rate (L/min) 2 Oxygen Delivery Method Room Air Weight: 308 lb 3.3 oz Body Mass Index (BMI) 42.8 Intake and Output for Last 24 Hours 11/16/19 11/17/19 11/18/19 23:59 23:59 23:59 Intake Total 480 / 480 Output Total 1700 / 1700 750 / 750 Balance -1220 / -1220 -750 / -750 General: Awake, Alert, Oriented x 3 HEENT: PERRL, EOMI, Sclera Non Icteric Neck: Supple, Good ROM, No Lymph Node Enlargement Lungs: Clear to auscultation Cardiovascular: Regular Rhythm, Normal S1, Normal S2, No Murmurs, No Rubs, No Gallops Vascular: No Carotid Bruits, Normal Femoral Pulses, Normal Radial Pulses, Normal Dorsalis Pedal Pulse, Normal Posterior Tibial Pulses Abdomen: Bowel Sounds Present, Soft, Non Tender, No HSM, No Organomegaly Extremities: No Cyanosis, No Clubbing, No edema Musculoskeletal: No Erythema Skin: No Rashes Lymphatic: No Lymph Node Enlargement Neurological: No Focal Motor or Sensory Deficit Psych/Mental Status: Appropriate 11/17/19 08:10: Triglycerides 116, Cholesterol 181, LDL Cholesterol 116, VLDL Cholesterol 23, HDL Cholesterol 42 11/17/19 12:35: Lactic Acid 1.9 11/17/19 15:08: Troponin I 0.384 H 11/17/19 16:25: Urine Color Yellow, Urine Clarity Sl. Cloudy, Urine pH 6.0, Ur Specific [place] 1.015, Urine Protein 100 H, Urine Glucose (UA) 250 H, Urine Ketones Negative, Urine Occult Blood 10 H, Urine Nitrite Negative, Urine Bilirubin Negative, Urine Urobilinogen Normal, Ur Leukocyte Esterase Negative, Urine RBC 0 SEEN, Urine WBC 0 SEEN 11/18/19 05:30: WBC 7.2, RBC 4.40 L, Hgb 13.1, Hct 40.3, MCV 91.6, MCH 29.8, MCHC 32.5, Plt Count 317, MPV 10.9, Immature Gran % (Auto) 0.300, Neut % (Auto) 66.1, Lymph % (Auto) 18.1 L, [place] % (Auto) 11.1 H, Eos % (Auto) 3.2, Baso % (Auto) 1.2 H, Absolute Neuts (auto) 4.8, Nucleated RBC % 0 11/18/19 05:30: Sodium 136, Potassium 3.7, Chloride 100, Carbon Dioxide 30.0, Anion Gap 6, BUN 17, Creatinine 1.07, Est GFR (MDRD) Af Amer 90, Est GFR (MDRD) Non-Af 75, BUN/Creatinine Ratio 15.9, Glucose 258 H, Calcium 8.4 L Rhythm: EKG: ECHO: Stress Test: Cardiac Cath: PCI: CT Surgery: Holter monitor: EPS: PPM: CXR: Chest CT Scan: Medical Necessity - Tobacco Use Smoking Status: Never smoker Tobacco Use: Non-smoker Assessment/Plan 1. Shortness of breath-congestive heart failure with preserved ejection fraction * Patient presents with progressive shortness of breath and noted to have an elevated natruretic peptide level. The above appears to be consistent with congestive heart failure with preserved ejection fraction. My recommendation would be to institute diuresis with intravenous Lasix. * The exact etiology is unclear at this particular time. It could be secondary to hypertension or occult coronary artery disease. * 2. Abnormal cardiac enzymes * Patient presents with shortness of breath and is noted to have abnormal cardiac enzymes together with EKG changes in the lateral leads. With his risk factors of obesity, hypertension, diabetes mellitus, hyperlipidemia my suspicion for coronary artery disease is high. * Cardiac catheterization demonstrated evidence of triple-vessel disease with a totally occluded right and severely diseased LAD and circumflex artery. Based on the above angiographic findings the patient will be considered for coronary artery bypass surgery electively. The patient will be discharged and followed up as an outpatient. The surgeon has been contacted. 3. Hypertension * Continue current medical therapy with amlodipine, losartan, and consider metoprolol 50 mg long-acting daily * 4. Risk factor modification * Patient will need aggressive risk factor modification. This would include diet, exercise as well as continuation of his lipid-lowering therapy. * * Thank you for allowing me to participate in the care of your patient. Please don't hesitate to call if any issues arise
[2019-11-18] MEDS: 0.9% Normal Saline 1,000 ML 75 ML IV (13:14)
[2019-11-18] MEDS: Furosemide 40 MG Tablet PO (13:58)
--- NOTE | 2019-11-18 14:39 | CL.D_ITS ---
Patient Name: HILARIA MOREIRA Study Date: 11/18/2019 Performing: Ian Rondon MD Ht: 71 inches 180 cm : 1960 Wt: 309.1 lbs 140 kg Age: 59 Gender: male BSA: 2.53 PROCEDURE(S) PERFORMED [id number] CLINICAL PROFILE AND INDICATIONS Indications: Suspected CAD Heart Failure: NYHA Class: 2, Newly Diagnosed: Yes, Heart Failure Type: Diastolic Stress/Imaging Stress/Image Study Performed: No CONCLUSIONS Triple-vessel disease involving a totally occluded dominant right coronary artery, moderately severe disease noted in the left anterior descending artery, ramus intermedius, and circumflex artery. Pres erved ejection fraction RECOMMENDATIONS Surgery consult for coronary revascularization DESCRIPTION OF PROCEDURE The patient arrived to the procedure lab. The risks and benefits of the procedure as well as a full d escription of our services here and current unavailability of surgical backup were fully explained to the patient and/or their significant other prior to the catheterization. The Timeout was completed, verifying the correct patient and procedure. The patient's procedural site was prepped and draped in the usual fashion. Local anesthetic was given subcutaneously to right radial region with Lidocaine 2% . Using a modified Seldinger technique, arterial access was obtained via the right radial artery, a 6 Fr sheath was inserted. Left Coronary Artery selective angiography was performed in multiple views u sing a 5 Fr. JL 5 catheter.The arterial sheath was pulled and a TR Band was applied for hemostasis CORONARY ANGIOGRAPHY DOMINANCE: Right Dominant LEFT HEART ASSESSMENT Left Ventricular Ejection Fraction: by Echo 65 % Normal LV wall motion LEFT MAIN: Moderate calcification LEFT ANTERIOR DESCENDING ARTERY: PROX LAD: Moderate calcification, 70 % Stenosis CIRCUMFLEX ARTERY: Diffusely diseased up to 70 % RAMUS: Moderate luminal irregularities up to 50% RIGHT CORONARY ARTERY: is occluded COLLATERAL FLOW: Collateral flow from Left to Right COMPLICATIONS No Complications PROCEDURE MEDICATIONS Versed 1 mg IV Fentanyl 50 mcg IV Heparin diluted in 23cc Heparinized saline. Patient given 10cc IA of this solution. 11/18/2019 12:10: 19 Verapamil 2.5mg, Ntg 100mcgs, 2000 units of Heparin diluted in 23cc Heparinized saline. Patient give n 10cc IA of this solution. 11/18/2019 12:10:19 SUMMARY OF HEMODYNAMIC DATA Time AIR REST ECG 11:51:39 AO 119/82 (98) SA 12:15:26 AO 133/83 (105) 12:33:39 Signed By Ian Rondon MD On 11/18/2019 14:38:09 Ian Rondon MD
--- NOTE | 2019-11-18 15:01 | PCM.DC ---
- Discharge Diagnoses Current Active Problems: Current Active and Chronic Problems Acute exacerbation of CHF (congestive heart failure) (Chronic) Elevated troponin (Acute) Acute respiratory failure with hypoxia (Acute) You will use the following diet at home:: Cardiac Discharge Activity: Return to Normal Activity Call your doctor if you observe: Shortness of breath, Dizziness, Fainting spells, Chest pain Additional Instructions: HOLD metformin 48 hours following heart cath. Allergies/Adverse Reactions: Allergies No Known Allergies Allergy (Verified 11/17/19 08:02) Medications to take at Discharge Acarbose 100 mg PO QHS 11/17/19 Amlodipine [Norvasc] 10 mg PO DAILY 11/17/19 Atorvastatin Calcium [Lipitor] 80 mg PO QHS 11/17/19 Fluticasone 0.05% [Flonase Nasal Jay] 2 spray INHALATION DAILY 11/17/19 Glimepiride 2 mg PO DAILY 11/17/19 Ipratropium [place] 1 spray INHALATION DAILY 11/17/19 Levocetirizine Dihydrochloride 5 mg PO DAILY 11/17/19 Losartan Potassium 100 mg PO QHS 11/17/19 Temazepam 15 mg PO QHS PRN 11/17/19 Testosterone Cypionate 200 mg IM Q14D 11/17/19 metFORMIN HCl [Glucophage] 1,000 mg PO BIDCM 11/17/19 Aspirin [Aspirin, Baby] 81 mg PO DAILY@0800 #30 tab.chew 11/18/19 Furosemide [Lasix] 40 mg PO BID@1000,1800 #60 tab 11/18/19 Metoprolol(XL)Succ [Toprol Xl (Beta Chidi)] 50 mg PO DAILY #30 tab 11/18/19 The following prescriptions were given: Aspirin [Aspirin, Baby] 81 mg PO DAILY@0800 #30 tab.chew Transmission Status: Pending to [facility] Furosemide [Lasix] 40 mg PO BID@1000,1800 #60 tab Transmission Status: Pending to [facility] Metoprolol(XL)Succ [Toprol Xl (Beta Chidi)] 50 mg PO DAILY #30 tab Transmission Status: Pending to [facility] Primary Care Physician: Josué Rodriguez MD [Primary Care Provider] - Please follow up with your Primary Care Physician in: 1 Week Test Results: Test results from this visit will be discussed in further detail at your follow-up appointment, if applicable. Please Follow Up With: Bishop Ledesma When: Office to call you to set up appt. Tentatively for Thursday Please Follow Up With: Ian Rondon MD When: 4-6 weeks following surgery for routine cardiology follow up Proposed Discharge Date: 11/18/19
--- NOTE | 2019-11-18 15:08 | PCM.DC.SUM ---
<Qian Mckeon - Last Filed: 11/18/19 15:22> Discharge Date and Diagnosis Date of Admission: 11/17/19 Date of Discharge: 11/18/19 - Primary Discharge Diagnosis Active and Suspected Problems 1. Acute heart failure with preserved ejection fraction with associated acute hypoxic respiratory insufficiency 2. Abnormal cardiac enzymes/CAD, triple-vessel disease 3. Type 2 diabetes mellitus 4. Hypertension 5. Hyperlipidemia 6. Morbid obesity - Secondary Discharge Diagnosis Chronic Problems History of left heart catheterization (Chronic 11/18/19) Triple-vessel disease involving a totally occluded dominant right coronary artery, moderately severe disease noted in the left anterior descending artery, ramus intermedius, and circumflex artery. Preserved ejection fraction. Surgery consult for coronary revascularization. 11/18/2019 per [employer] C[employer]TING SUPERVISOR @ [facility] Triple vessel coronary artery disease (Chronic) Arteriosclerotic cardiovascular disease (Chronic) Triple-vessel disease involving a totally occluded dominant right coronary artery, moderately severe disease noted in the left anterior descending artery, ramus intermedius, and circumflex artery. Preserved ejection fraction. Surgery consult for coronary revascularization. 11/18/2019 per CORD[employer] C[employer]TING SUPERVISOR @ [facility] Acute exacerbation of CHF (congestive heart failure) (Chronic) Hospital Course and Treatment Imaging Results: Diagnostic Data Chest X-Ray 11/17/19 08:12 IMPRESSION: Mild cardiomegaly and CHF. Electronically Signed: Tutu Royal, at 8:43 EDT , Service support , Dr. Rondon- Cardiology Operations: None Procedures: 2-D Echocardiogram, Cardiac catheterization Summary of Care Provided: The patient is a 59 year old M admitted 11/17/2019 due to shortness of breath. 1. Acute heart failure with preserved ejection fraction with associated acute hypoxic respiratory insufficiency-BNP 261. CXR with mild CHF. Echocardiogram demonstrated EF 65%, stage II diastolic dysfunction. IV Lasix during admission. Transition to oral Lasix 40 mg twice daily at discharge. Oxygen stable on room air. Walking pulse ox to be completed prior to discharge. Patient referred to tertiary facility on outpatient basis for coronary revascularization. Follow-up with primary care physician and cardiology upon discharge from surgery. 2. Abnormal cardiac enzymes/CAD, triple-vessel disease- Cardiac catheterization demonstrated triple-vessel disease involving a totally occluded dominant right coronary artery, moderately severe disease noted in the left anterior descending artery, ramus intermedius and circumflex artery. Referred to [facility], Dr. Ledesma for coronary revascularization. Patient will follow-up as outpatient to have this scheduled. Continue aspirin, statin, beta-chidi, losartan, Lasix. 3. Type 2 diabetes mellitus-continue home oral regimen. Hold metformin for 48 hours following cath. 4. Hypertension-stable, continue amlodipine, losartan. Additionally added on Lasix and metoprolol. 5. Hyperlipidemia-continue high-dose statin. 6. Morbid obesity-encouraged diet lifestyle modifications. Patient seen and examined prior to discharge. Physical assessment as noted below. Patient is stable for discharge with follow up recommendations as noted above. This patient was seen by ADALID Landeros under the supervision of Dr. Dejesus. - Physical Exam Vitals/I&O's: Vital Signs Temp Pulse Resp BP Pulse Ox 98.3 F 69 18 144/79 H 92 11/18/19 15:00 11/18/19 15:00 11/18/19 15:00 11/18/19 15:00 11/18/19 15:00 Oxygen Flow Rate (L/min) 2 Oxygen Delivery Method Room Air Weight: 308 lb 3.3 oz Body Mass Index (BMI) 42.8 Intake and Output for Last 24 Hours 11/16/19 11/17/19 11/18/19 23:59 23:59 23:59 Intake Total 480 / 480 Output Total 1700 / 1700 750 / 750 Balance -1220 / -1220 -750 / -750 General: Alert, Oriented x3, Cooperative HEENT: Atraumatic, PERRLA, EOMI, Normocephalic Neck: Supple, No JVD, Negative Carotid Bruits Lungs: Clear to auscultation, Normal air movement Cardiovascular: Regular rate, Regular Rhythm, Normal S1, Normal S2, No murmurs Abdomen: Bowel Sounds Present, Soft, Non Tender, Non-Distended, Obese Extremities: No clubbing, No cyanosis, No edema, Capillary Refill Less than 3 Seconds Skin: No rashes, No breakdown Musculoskeletal: No Tenderness to Palpation of Joints or Extremities Neurological: Cranial nerves II-XII grossly intact, Neuro grossly intact Psych/Mental Status: Normal Affect, Appropriate Microbiology Past 72 Hours 11/17/19 09:00 Mucosa - Throat Respiratory Panel (PCR) - Final 11/17/19 09:00 Mucosa - Nose Influenza Types A,B Direct FA (BRANDON) - Final Laboratory Results 11/17/19 15:08: Troponin I 0.384 H 11/17/19 16:25: Urine Color Yellow, Urine Clarity Sl. Cloudy, Urine pH 6.0, Ur Specific [place] 1.015, Urine Protein 100 H, Urine Glucose (UA) 250 H, Urine Ketones Negative, Urine Occult Blood 10 H, Urine Nitrite Negative, Urine Bilirubin Negative, Urine Urobilinogen Normal, Ur Leukocyte Esterase Negative, Urine RBC 0 SEEN, Urine WBC 0 SEEN, Ur Squamous Epith Cells 0 SEEN, Urine Bacteria 0 SEEN, Urine Mucus 0 SEEN 11/17/19 16:49: POC Glucose 228 H 11/17/19 21:07: POC Glucose 271 H 11/18/19 05:30: WBC 7.2, RBC 4.40 L, Hgb 13.1, Hct 40.3, MCV 91.6, MCH 29.8, MCHC 32.5, RDW Std Deviation 44.2 H, RDW Coeff of [place] 13.2, Plt Count 317, MPV 10.9, Immature Gran % (Auto) 0.300, Neut % (Auto) 66.1, Lymph % (Auto) 18.1 L, Major % (Auto) 11.1 H, Eos % (Auto) 3.2, Baso % (Auto) 1.2 H, Absolute Neuts (auto) 4.8, Absolute Lymphs (auto) 1.31, Nucleated RBC % 0 11/18/19 05:30: Sodium 136, Potassium 3.7, Chloride 100, Carbon Dioxide 30.0, Anion Gap 6, BUN 17, Creatinine 1.07, Estim Creat Clear Calc 77.22, Est GFR (MDRD) Af Amer 90, Est GFR (MDRD) Non-Af 75, BUN/Creatinine Ratio 15.9, Glucose 258 H, Calcium 8.4 L 11/18/19 06:48: POC Glucose 264 H 11/18/19 11:08: POC Glucose 239 H Current Medications Albuterol Sulfate (Ventolin Aerosols) 2.5 mg INHALATION Q2H PRN PRN PRN Reason: SOB/Wheezing Amlodipine Besylate (Norvasc) 10 mg PO DAILY [facility] Last Admin: 11/18/19 06:50 Dose: 10 mg Documented by: Aspirin (Aspirin, Baby) 81 mg PO DAILY@0800 [facility] Last Admin: 11/18/19 06:50 Dose: 81 mg Documented by: Atorvastatin Calcium (Lipitor) 80 mg PO QHS [facility] Last Admin: 11/17/19 21:05 Dose: 80 mg Documented by: Dextrose (D50w Syringe) 0 gm IV X1 PRN; Protocol PRN Reason: Hypoglycemia Enoxaparin Sodium (Lovenox) 40 mg SC DAILY [facility] Last Admin: 11/18/19 07:00 Dose: Not Given Documented by: Fluticasone Propionate (Flonase Nasal [place]) 2 spray NASAL DAILY [facility] Last Admin: 11/18/19 11:09 Dose: Not Given Documented by: Furosemide (Lasix) 40 mg PO BID@1000,1800 [facility] Last Admin: 11/18/19 13:58 Dose: 40 mg Documented by: Glucagon () 1 mg IM .X1 PRN PRN Reason: Hypoglycemia Sodium Chloride () 1,000 mls @ 0 mls/hr IV .Q0M [facility] Sodium Chloride () 1,000 mls @ 75 mls/hr IV .[id number] [facility] Last Admin: 11/18/19 13:14 Dose: 75 mls/hr Documented by: Insulin Human Lispro (Humalog Kwikpen (Bkc)) 0 unit SC ACHS [facility]; Protocol Last Admin: 11/18/19 11:13 Dose: Not Given Documented by: Ipratropium [place] (Atrovent Nasal [place] (G)) 1 spray NASAL DAILY [facility] Last Admin: 11/18/19 11:09 Dose: Not Given Documented by: Loratadine (Claritin) 10 mg PO DAILY [facility] Last Admin: 11/18/19 13:14 Dose: Not Given Documented by: Losartan Potassium (Cozaar) 100 mg PO QHS [facility] Last Admin: 11/17/19 21:05 Dose: 100 mg Documented by: Metoprolol Succinate (Toprol Xl (Beta Chidi)) 50 mg PO DAILY [facility] Last Admin: 11/18/19 06:50 Dose: 50 mg Documented by: Nitroglycerin (Nitrostat) 0.4 mg SUBLINGUAL Q5M PRN PRN Reason: CARDIAC/CHEST PAIN Ondansetron HCl (Zofran) 4 mg IV Q8H PRN PRN PRN Reason: NAUSEA/VOMITING Sodium Chloride () 10 - 40 ml IV UD PRN PRN Reason: SALINE FLUSH Last Admin: 11/17/19 17:25 Dose: 10 ml Documented by: Temazepam (Restoril) 15 mg PO QHS [facility] Last Admin: 11/17/19 21:10 Dose: 15 mg Documented by: Discharge Diet: Low fat/ Low Cholesterol, 1800 Calorie Control Diet, Carb Control Diet Discharge Activity: Return to Normal Activity Call your doctor if you observe: Shortness of breath, Dizziness, Fainting spells, Chest pain Home Medications: Medications to take at Discharge Acarbose 100 mg PO QHS 11/17/19 Amlodipine [Norvasc] 10 mg PO DAILY 11/17/19 Atorvastatin Calcium [Lipitor] 80 mg PO QHS 11/17/19 Fluticasone 0.05% [Flonase Nasal [place]] 2 spray INHALATION DAILY 11/17/19 Glimepiride 2 mg PO DAILY 11/17/19 Ipratropium [place] 1 spray INHALATION DAILY 11/17/19 Levocetirizine Dihydrochloride 5 mg PO DAILY 11/17/19 Losartan Potassium 100 mg PO QHS 11/17/19 Temazepam 15 mg PO QHS PRN 11/17/19 Testosterone Cypionate 200 mg IM Q14D 11/17/19 metFORMIN HCl [Glucophage] 1,000 mg PO BIDCM 11/17/19 Aspirin [Aspirin, Baby] 81 mg PO DAILY@0800 #30 tab.chew 11/18/19 Furosemide [Lasix] 40 mg PO BID@1000,1800 #60 tab 11/18/19 Metoprolol(XL)Succ [Toprol Xl (Beta Chidi)] 50 mg PO DAILY #30 tab 11/18/19 Following Prescrptions Were Given to Patient: Aspirin [Aspirin, Baby] 81 mg PO DAILY@0800 #30 tab.chew Transmission Status: Received by [facility] Furosemide [Lasix] 40 mg PO BID@1000,1800 #60 tab Transmission Status: Received by [facility] Metoprolol(XL)Succ [Toprol Xl (Beta Chidi)] 50 mg PO DAILY #30 tab Transmission Status: Received by [facility] Primary Care Physician: Josué Rodriguez MD [Primary Care Provider] - Please follow up with your Primary Care Physician in: 1 Week Please Follow Up With: Bishop Ledesma When: Office to call you to set up appt. Tentatively for Thursday Please Follow Up With: Ian Rondon MD When: 4-6 weeks following surgery for routine cardiology follow up Disposition: Home Minutes spent on discharge:: 35 Patient Condition:: Stable Medical Necessity - Tobacco Use Smoking Status: Never smoker Tobacco Use: Non-smoker Meaningful Use Info Meaningful Use Diagnoses (Choose all that apply): CHF - CHF KARISSA/ARB ordered at discharge?: Yes Documented LVEF (%): 65 <Jose Dejesus F - Last Filed: 11/18/19 16:23> Discharge Date and Diagnosis - Secondary Discharge Diagnosis Chronic Problems (Last Updated 11/18/19 @ 15:08 by ADALID Landeros) History of left heart catheterization (Chronic 11/18/19) Triple-vessel disease involving a totally occluded dominant right coronary artery, moderately severe disease noted in the left anterior descending artery, ramus intermedius, and circumflex artery. Preserved ejection fraction. Surgery consult for coronary revascularization. 11/18/2019 per [employer]ORD[employer] C[employer]TING SUPERVISOR @ [facility] Triple vessel coronary artery disease (Chronic) Arteriosclerotic cardiovascular disease (Chronic) Triple-vessel disease involving a totally occluded dominant right coronary artery, moderately severe disease noted in the left anterior descending artery, ramus intermedius, and circumflex artery. Preserved ejection fraction. Surgery consult for coronary revascularization. 11/18/2019 per CORD[employer]OY C[employer]TING SUPERVISOR @ [facility] Acute exacerbation of CHF (congestive heart failure) (Chronic) Hospital Course and Treatment Summary of Care Provided: The patient is a 59 year old M [] - Physical Exam Vitals/I&O's: Vital Signs Temp Pulse Resp BP Pulse Ox 97.8 F 71 18 152/97 H 92 11/18/19 16:09 11/18/19 16:09 11/18/19 16:09 11/18/19 16:09 11/18/19 16:09 Oxygen Flow Rate (L/min) [ 0 AMBULATING on Room Air] Oxygen Flow Rate (L/min) [At 0 REST on Room Air] Oxygen Flow Rate (L/min) 2 Oxygen Delivery Method Room Air Weight: 308 lb 3.3 oz Body Mass Index (BMI) 42.8 Intake and Output for Last 24 Hours 11/16/19 11/17/19 11/18/19 23:59 23:59 23:59 Intake Total 480 / 480 223.75 / 223.75 Output Total 1700 / 1700 750 / 750 Balance -1220 / -1220 -526.25 / -526.25 Microbiology Past 72 Hours 11/17/19 09:00 Mucosa - Throat Respiratory Panel (PCR) - Final 11/17/19 09:00 Mucosa - Nose Influenza Types A,B Direct FA (BRANDON) - Final Laboratory Results 11/17/19 16:25: Urine Color Yellow, Urine Clarity Sl. Cloudy, Urine pH 6.0, Ur Specific [place] 1.015, Urine Protein 100 H, Urine Glucose (UA) 250 H, Urine Ketones Negative, Urine Occult Blood 10 H, Urine Nitrite Negative, Urine Bilirubin Negative, Urine Urobilinogen Normal, Ur Leukocyte Esterase Negative, Urine RBC 0 SEEN, Urine WBC 0 SEEN, Ur Squamous Epith Cells 0 SEEN, Urine Bacteria 0 SEEN, Urine Mucus 0 SEEN 11/17/19 16:49: POC Glucose 228 H 11/17/19 21:07: POC Glucose 271 H 11/18/19 05:30: WBC 7.2, RBC 4.40 L, Hgb 13.1, Hct 40.3, MCV 91.6, MCH 29.8, MCHC 32.5, RDW Std Deviation 44.2 H, RDW Coeff of [place] 13.2, Plt Count 317, MPV 10.9, Immature Gran % (Auto) 0.300, Neut % (Auto) 66.1, Lymph % (Auto) 18.1 L, Major % (Auto) 11.1 H, Eos % (Auto) 3.2, Baso % (Auto) 1.2 H, Absolute Neuts (auto) 4.8, Absolute Lymphs (auto) 1.31, Nucleated RBC % 0 11/18/19 05:30: Sodium 136, Potassium 3.7, Chloride 100, Carbon Dioxide 30.0, Anion Gap 6, BUN 17, Creatinine 1.07, Estim Creat Clear Calc 77.22, Est GFR (MDRD) Af Amer 90, Est GFR (MDRD) Non-Af 75, BUN/Creatinine Ratio 15.9, Glucose 258 H, Calcium 8.4 L 11/18/19 06:48: POC Glucose 264 H 11/18/19 11:08: POC Glucose 239 H Current Medications Albuterol Sulfate (Ventolin Aerosols) 2.5 mg INHALATION Q2H PRN PRN PRN Reason: SOB/Wheezing Amlodipine Besylate (Norvasc) 10 mg PO DAILY [facility] Last Admin: 11/18/19 06:50 Dose: 10 mg Documented by: Aspirin (Aspirin, Baby) 81 mg PO DAILY@0800 [facility] Last Admin: 11/18/19 06:50 Dose: 81 mg Documented by: Atorvastatin Calcium (Lipitor) 80 mg PO QHS [facility] Last Admin: 11/17/19 21:05 Dose: 80 mg Documented by: Dextrose (D50w Syringe) 0 gm IV X1 PRN; Protocol PRN Reason: Hypoglycemia Enoxaparin Sodium (Lovenox) 40 mg SC DAILY [facility] Last Admin: 11/18/19 07:00 Dose: Not Given Documented by: Fluticasone Propionate (Flonase Nasal [place]) 2 spray NASAL DAILY [facility] Last Admin: 11/18/19 11:09 Dose: Not Given Documented by: Furosemide (Lasix) 40 mg PO BID@1000,1800 [facility] Last Admin: 11/18/19 13:58 Dose: 40 mg Documented by: Glucagon () 1 mg IM .X1 PRN PRN Reason: Hypoglycemia Sodium Chloride () 1,000 mls @ 0 mls/hr IV .Q0M [facility] Sodium Chloride () 1,000 mls @ 75 mls/hr IV .[id number] [facility] Last Infusion: 11/18/19 16:13 Dose: Infused Documented by: Insulin Human Lispro (Humalog Kwikpen (Bkc)) 0 unit SC ACHS [facility]; Protocol Last Admin: 11/18/19 11:13 Dose: Not Given Documented by: Ipratropium [place] (Atrovent Nasal [place] (G)) 1 spray NASAL DAILY [facility] Last Admin: 11/18/19 11:09 Dose: Not Given Documented by: Loratadine (Claritin) 10 mg PO DAILY [facility] Last Admin: 11/18/19 13:14 Dose: Not Given Documented by: Losartan Potassium (Cozaar) 100 mg PO QHS [facility] Last Admin: 11/17/19 21:05 Dose: 100 mg Documented by: Metoprolol Succinate (Toprol Xl (Beta Chidi)) 50 mg PO DAILY [facility] Last Admin: 11/18/19 06:50 Dose: 50 mg Documented by: Nitroglycerin (Nitrostat) 0.4 mg SUBLINGUAL Q5M PRN PRN Reason: CARDIAC/CHEST PAIN Ondansetron HCl (Zofran) 4 mg IV Q8H PRN PRN PRN Reason: NAUSEA/VOMITING Sodium Chloride () 10 - 40 ml IV UD PRN PRN Reason: SALINE FLUSH Last Admin: 11/17/19 17:25 Dose: 10 ml Documented by: Temazepam (Restoril) 15 mg PO QHS [facility] Last Admin: 11/17/19 21:10 Dose: 15 mg Documented by: Addendum: Dr. Dejesus I personally examined the patient and reviewed the chart. I agree with the above. 59-year-old male presents with lower extremity edema, chest tightness with exertion, and shortness of breath. His BNP was 261 and he never had a previous history of heart failure however he does have an echo which shows a normal EF and stage II diastolic dysfunction. He did have a slight troponin leak 12.375 that peaked 2.384. He was taken for cardiac cath today and found to have triple-vessel disease however because of the concern with coronavirus and his stability. He is discharged home on aggressive medical management cardiothoracic surgeon Leonel with consult to [facility] and they agreed to see him potentially on Thursday, for possible surgery on Thursday. We will continue with Lasix, losartan, metoprolol, Lipitor. Plan will be discharged today with outpatient follow-up with cardiothoracic surgery on Thursday. Inpatient E&M: 22525 Disch Hosp
--- NOTE | 2019-11-18 15:11 | CASEMGMT ---
ADITI SAINI assessment: Face to Face with patient for initial transition planning/care coordination assessment. ADITI SAINI introduced self and role at [facility], pt voices understanding and consents to assessment at this time. Pt is sitting up in bed in no distress at this time. Pt is A/Ox4 at this time and answers all questions appropriately at this time. Pt's is at bedside during assessment. Care providers, pharmacy, and demographics verified at this time. Presentation: Chronic SOB, worse within the last week, palpitations Admitting dx: HF PCP: Josué Rodriguez Specialists: Pt states no current specialists. Preferred Pharmacy: [facility]-pt states would like meds sent to [facility] today at discharge Insurance: [employer] Prescription Benefit: [employer] Living Will/HPOA: Pt states does not have LW/HPOA but would like info on AD's at this time. Pt provided with copy of LW/HPOA and SW rack card at this time. LNOK: Shirin Woo, Living Arrangements: Pt states lives with in 2 story home and states no concerns at home at this time. Pt states is independent with ADL's. Transportation: Pt states drives self and states no transportation concerns at this time. DME/HHC: Pt states does have a walker and w/c at home but does not use. Pt states no need for any further DME at this time. Pt states no hx of HHC or SNF at this time. Pt states no concerns with going home at time of discharge. 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 Pt states was drinking ETOH every weekend but quit about a week ago. Pt states does not smoke cigarettes. Pt states no further concerns/needs at this time. CM to follow for any further discharge planning/needs. Advised pt to ask for CM if any further questions/concerns/needs arise, voices understanding. Pt Goal: Home Plan[place] ADITI SAINI
== END 2019-11-18 16:40 | disposition home or self-care (01) | DRG 286 ==
LOC: ED 09:19 → PCU 12:35
PROVIDERS: Admitting Provider Student in an Organized Health Care Education/Training Program; Emergency Provider Emergency Medicine; PCP Family Medicine; Visit Provider Family Medicine
DX: I11.0 Hypertensive heart disease with heart failure (principal); I50.31 Acute diastolic (congestive) heart failure; Z68.41 Body mass index [BMI] 40.0-44.9, adult; I25.10 Atherosclerotic heart disease of native coronary artery without angina pectoris; E11.9 Type 2 diabetes mellitus without complications; R06.89 Other abnormalities of breathing; E78.5 Hyperlipidemia, unspecified; E66.01 Morbid (severe) obesity due to excess calories; R09.02 Hypoxemia; Z79.84 Long term (current) use of oral hypoglycemic drugs
CPT/HCPCS: 36415; 71045; 80048; 80061; 81001; 82962; 83605; 83880; 84484; 85025; 87040; 87633; 87804; 93005; 93306; 93454; 94640; 97802; 99152; 99153; 99285; J7030; J7040; Q9957; Q9967; A4216; C1769; C1894; C8929; J1940

== ENCOUNTER 2020-01-04 09:05 | Inpatient (IN) | payer OTHER, SELFPAY ==
[2019-11-17 13:16] VITALS: BMI 42.8
[2020-01-04] VITALS (33 sets, daily range): BP systolic 96–162; BP diastolic 62–114; PULSE 83–123; RESP 12–36; TEMP 36.1–37.4; O2SAT 94–100; BMI 46.0; BMI 46.1
--- NOTE | 2020-01-04 09:08 | RAD_ITS ---
STUDY: X-RAY CHEST REASON FOR EXAM: Male, 59 years old. aspiratory failure w/ hypoxia. CABG - DECEMBER 26, 2019 TECHNIQUE: Single AP portable view of the chest. COMPARISON: Comparison is made with prior examination dated November 17, 2019. FINDINGS: EKG electrodes are seen. There is evidence of vascular congestion and mild degree of CHF. Blunting of both arthritic angles. Mild increased markings at the lung bases suggestive of bibasilar atelectasis. Sternal cerclage wires and vascular clips are present from a prior sternotomy and coronary artery bypass graft procedure (CABG). Moderate degree of cardiomegaly. Normal mediastinum and riana. Normal visualized pulmonary arteries. Normal visualized aortic arch and descending thoracic aorta. There are diffuse degenerative changes of the visualized thoracic spine. Normal visualized ribs, clavicles, and shoulders. There is no demonstrated abnormality of the visualized soft tissue structures of the upper abdomen. RAD/Chest 1 View (Portable) IMPRESSION: Status post CABG with evidence of CHF and blunting of both costophrenic angle. Electronically Signed: Tutu Royal, at 10:08 EDT , Service support ,
--- NOTE | 2020-01-04 09:08 | EKG12_ITS ---
Test Reason : SOB Blood Pressure : / mmHG Vent. Rate : 116 BPM Atrial Rate : 352 BPM P-R Int : 000 ms QRS Dur : 082 ms QT Int : 308 ms P-R-T Axes : 000 023 048 degrees QTc Int : 428 ms Atrial flutter with variable A-V block Possible Inferior infarct , age undetermined Poor R wave progression Abnormal ECG Confirmed by TATIANA CHAPPELL, DAVINA ([id number]), supervising editor news reel RAGHAVENDRA MARCOS ([id number]) on 01/09/2020 2:14:54 PM Referred By: WILEY Confirmed By:DAVINA SIMPSON MD
--- NOTE | 2020-01-04 09:19 | ED.DCSUM_ITS ---
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 on December 25. He was discharged in the hospital on December 31. He presents because of shortness of breath. Squad states his saturation was as low as 70% on room air. He arrived wearing a nonrebreather mask. Pulse ox in the mid 90s. Patient is in obvious respiratory distress. Able to say 1 word at a time. He denies infectious symptoms. He denies chest discomfort. He does report shortness of breath. He also reports swelling. He states he is compliant with his meds. He denies GI symptoms. He does not know his EF. Prior similar symptoms: No Recent Illness/Hospitalization: Yes - Past Medical History (1) Type 2 diabetes mellitus Status: Chronic (2) Hypercholesterolemia Status: Chronic (3) Atherosclerosis of coronary artery of elim [place] heart without angina pectoris Status: Chronic (4) Chronic diastolic (congestive) heart failure Status: Chronic (5) Essential (primary) hypertension Status: Chronic (6) Nonrheumatic aortic (valve) stenosis Status: Chronic Comment: mild per echo 17519 Past Medical History - Allergies and Home Meds Allergies/Adverse Reactions: Allergies No Known Allergies Allergy (Verified 01/04/20 09:09) Primary Care Physician: Josué Rodriguez MD [Primary Care Provider] - Prior records reviewed: Yes Surgical History: noncontributory, coronary bypass surgery - Four-vessel bypass surgery December 25 Lives: Alone Smoking Status: Never smoker Alcohol: None Drugs: None - Family History Maternal Family History: Family History (Last Updated 12/03/19 @ 12:26 by Serena Wilson) Mother Hypertension Father Hypertension Heart disease Family History: Reports: Hypertension Paternal Family History: Family History (Last Updated 12/03/19 @ 12:26 by Serena Wilson) Mother Hypertension Father Hypertension Heart disease Family History: Reports: Heart Disease, Hypertension Review of Systems General: Reports: Malaise. Denies: Chills, Fever, Subjective, Sweats Eyes: Denies: Visual changes - bilaterally, Blurred Vision - bilaterally ENT: Denies: Rhinorrhea, Sore throat Cardiovascular: Reports: Heart racing. Denies: Chest pain, Palpitations Respiratory: Reports: Dyspnea, Dyspnea on exertion, Orthopnea. Denies: Cough Gastrointestinal: Denies: Abdominal pain, Nausea, Vomiting, Diarrhea, Melena, Hematochezia Genitourinary: Denies: Dysuria, Hematuria, Frequency Musculoskeletal: Reports: Swelling. Denies: Myalgias, Arthralgias, Neck pain, Back pain, Extremity Pain, -, - Endocrine: Denies: Polyuria, Polydipsia Hematologic: Denies: Easy bruising, Easy bleeding Allergy: Denies: Uticaria, Swelling of the mouth, Swelling of the tongue Physical Exam Vital Signs/Narrative: Vital Signs Temp Pulse Resp BP Pulse Ox 01/04/20 09:10 99.4 F H 115 H 28 H 161/77 H 96 Inital Vital Signs reviewed: Yes General: Well nourished, Well developed, Obese, Acute Distress Head: Normocephalic, Atraumatic Eyes: Perrl, EOMI. Negative for: Pale conjunctiva, Scleral icterus ENT: Moist mucous membranes, No rhinorrhea. Negative for: Nasal congestion Neck: Supple, Nontender, No lymphadenopathy, No JVD Cardiovascular: Regular rhythm, No murmurs, Normal S1, Normal S2, Tachycardia Respiratory: Chest nontender, Rales, Decreased Air Movement, - - There is use of accessory muscles and mild retractions.. Negative for: No distress, CTA bilaterally Abdomen: Soft, Nontender, Nondistended, Normal bowel sounds, No masses Rectal: Deferred Back: Nontender, Normal Inspection Extremities: Nontender, Edema - 2+ pitting, - - There is no asymmetry or discoloration. There is no palpable cords, tenderness on the distribution of deep venous system or distended leg veins.. Negative for: No edema Skin: Normal color, No rash, No Trauma. Negative for: Cyanosis, Diaphoresis, Jaundice Neurological: Alert, Oriented x3, Cranial nerves II-XII grossly intact, Normal Strength, Normal Sensation Psychological: Normal affect Diagnostic/Tx/Re-eval Chest X-Ray - ED: 1 View, Read by ED Physician, - - Single view chest x-ray was obtained. This is compared to x-ray performed on November 17, 2019. Expiratory volume is limited. There are sternal wires which were not noted prior x-ray. Study is limited because of the poor inspiratory volume. There appears to be bilateral pleural effusion and evidence of heart failure. This was interpreted by me at 0956 01/04/20 09:08 Chest 1 View (Portable) [RAD] Stat Laboratory Results 01/04/20 01/04/20 01/04/20 09:13 09:13 09:13 WBC 13.6 H RBC 3.75 L Hgb 10.9 L Hct 36.0 L MCV 96.0 H MCH 29.1 MCHC 30.3 L RDW Std Deviation 49.2 H RDW Coeff of [place] 14.1 Plt Count 574 H MPV 10.2 Immature Gran % (Auto) 1.100 H Neut % (Auto) 77.6 H Lymph % (Auto) 11.3 L Placer % (Auto) 7.9 Eos % (Auto) 1.4 Baso % (Auto) 0.7 Absolute Neuts (auto) 10.6 H Absolute Lymphs (auto) 1.54 Nucleated RBC % 0 Sodium 136 Potassium 5.4 H Chloride 100 Carbon Dioxide 32.0 Anion Gap 4 L BUN 25 H Creatinine 0.95 Estim Creat Clear Calc 86.97 Est GFR (MDRD) Af Amer 104 Est GFR (MDRD) Non-Af 86 BUN/Creatinine Ratio 26.4 H Glucose 144 H Lactic Acid 1.1 Calcium 8.7 Total Bilirubin 0.60 AST 86 H ALT 104 H Alkaline Phosphatase 109 Troponin I 0.137 H B-Natriuretic Peptide Total Protein 7.6 Albumin 2.6 L Globulin 5.0 H Albumin/Globulin Ratio 0.5 L POC Glucose 01/04/20 01/04/20 09:13 09:17 WBC RBC Hgb Hct MCV MCH MCHC RDW Std Deviation RDW Coeff of [place] Plt Count MPV Immature Gran % (Auto) Neut % (Auto) Lymph % (Auto) Placer % (Auto) Eos % (Auto) Baso % (Auto) Absolute Neuts (auto) Absolute Lymphs (auto) Nucleated RBC % Sodium Potassium Chloride Carbon Dioxide Anion Gap BUN Creatinine Estim Creat Clear Calc Est GFR (MDRD) Af Amer Est GFR (MDRD) Non-Af BUN/Creatinine Ratio Glucose Lactic Acid Calcium Total Bilirubin AST ALT Alkaline Phosphatase Troponin I B-Natriuretic Peptide 376.6 H Total Protein Albumin Globulin Albumin/Globulin Ratio POC Glucose 128 H Work is marked for an elevated glucose. CO2 and anion gap are normal. Renal function is normal. Troponin is slightly elevated which in all likelihood is due to the recent surgery. BNP is 376.6. ABG is pending. Patient did receive 40 mg of Lasix since he is clinically fluid overloaded. He has improved with regards to respiratory status after BiPAP. Page placed to call worker person to discuss treatment of his A. fib. ABG reveals a pH of 7.389, PCO2 50.1, PaO2 of 107, base excess 5 and bicarb of 30.3 with a saturation 98% on 35%. Case was discussed with Dr. Milner on-call for Dr. Ian Rondon. Plan is amiodarone. Stat echo to evaluate for pericardial effusion/tamponade. Until echo has been performed we will hold on heparin. In differential need to consider pulmonary embolus. - Rhythm Strip Rhythm Strip: A-fib Rate: 122 Ectopy: None - EKG Initial EKG Interpretation: Atrial Fibrillation - Patient has atrial fibrillation with a ventricular to 116. QRS duration 82 ms. QT duration 308 ms. [place] is normal. The ST segments and QRS morphology is unchanged from EKG that was performed on November 18, 2019. EKG revealed a sinus rhythm in November. - Medical Decision Making Presents with respiratory failure. Clinically he is fluid overloaded. Suspect congestive heart failure. Need to determine etiology. EKG, chest x-ray and appropriate blood work was ordered. His local physician is Dr. Josué Rodriguez. His local call worker person is Dr. Ian Rondon. Patient was informed he will require admission. He states he prefers to stay at [facility]. He was told he may require transfer back to [facility]. Stat echo does not reveal pericardial effusion. Therefore, will anticoagulate with heparin. Dr. Milner is presently seeing patient. The hospitalist has been paged for admission to ICU. - Critical Care Time Critical care time (excluding procedures): 30-74 minutes - Critical care time 37 minutes, Discussing w/Patient &/or Family/Impress Associate, Discussing w/Consultants, Arranging Admission or Transfer ED Disposition - Plan for ED Patient: Disposition: Acute Care Hospital [facility] Diagnosis: Respiratory failure with hypoxia and hypercapnia, Atrial fibrillation with rapid ventricular response, Type 2 diabetes mellitus Referrals: Josué Rodriguez MD [Primary Care Provider] -
--- NOTE | 2020-01-04 09:20 | NURSING ---
per MD, pt is to be placed on the Non respiratory side.
[2020-01-04 09:21] LABS: Bedside Glucose 128 mg/dL (70-110)
[2020-01-04 09:26] LABS: Absolute Lymphocyte Count 1.54 X10^3/uL (0.83-4.51); Absolute Neutrophil Count 10.6 X10^3/uL (2.0-7.7); Basophil# 0.09 X10^3/uL; Basophil% 0.7 % (0-1); Eosinophil# 0.19 X10^3/uL; Eosinophils% 1.4 % (0-5); Hemoglobin 10.9 g/dL (13.0-16.5); Lymphocyte # 1.54 X10^3/ul (4.0); Lymphocyte % 11.3 % (19-41); Mean Corp Hgb Conc 30.3 g/dL (32-36); Mean Corpuscular Hgb 29.1 pg (27.0-32.0); Mean Platelet Vol. 10.2 fl (6.2-12.0); Monocyte# 1.07 X10^3/uL; Monocyte% 7.9 % (0-10); NRBC Flagged by Analyzer 0 % (0-5); Neutrophil # 10.55 X10^3/uL (2.7-7.7); Neutrophil % 77.6 % (47-70); Platelet Count 574 K/mm3 (150-450); RBC Distribution Width CV 14.1 % (11.6-14.6); RBC Distribution Width SD 49.2 fl (35.1-43.9); Red Blood Count 3.75 M/mm3 (4.6-6.2); White Blood Count 13.6 K/mm3 (4.4-11.0)
[2020-01-04 09:46] LABS: International Normalized Ratio 1.2; Partial Thromboplast Time 32.4 Seconds (24.1-36.2); Prothrombin Time (Protime)PT. 14.7 SECONDS (11.7-14.9)
[2020-01-04 09:48] LABS: BNP,B-Type NATRIURETIC PEPTIDE 376.6 pg/mL (0-100)
[2020-01-04] MEDS: Furosemide 40 MG/4 ML Vial IV (09:53)
[2020-01-04 09:54] LABS: Lactic Acid 1.1 mmol/L (0.4-1.9)
[2020-01-04 09:55] LABS: ALB/GLOB Ratio 0.5 RATIO (0.9-2.4); AST(SGOT) 86 U/L (15-37); Alanine Aminotransfer ALT/SGPT 104 U/L (16-61); Albumin, Serum 2.6 g/dL (3.2-5.0); Alkaline Phosphatase 109 U/L (45-117); Anion Gap 4 (5-15); BUN 25 mg/dL (7-18); BUN/Creat Ratio 26.4 RATIO (10-20); Calcium,Total 8.7 mg/dL (8.5-10.1); Chloride 100 mmol/L (98-107); Creatinine, Serum 0.95 mg/dL (0.70-1.30); EST Glomerular Filtration Rate 86 mL/min (>60); Est Glom Filt Rate - Afr Amer 104 mL/min (>60); Estimated Creatinine Clearance 86.97 ml/min; Glucose 144 mg/dL (74-106); Potassium 5.4 mmol/L (3.5-5.1); Protein, Total 7.6 g/dL (6.4-8.2); Sodium Level 136 mmol/L (136-145)
[2020-01-04 10:26] LABS: Base Excess 5 mmol/L (-2 to +2); Bicarbonate 30.3 mmol/L (22-26); PO2 107 mmHG (75-100); SO2 98 % (95-99); Total Carbon Dioxide 32 mmol/L; pCO2 50.1 mmHg (35-45); pH 7.39 (7.35-7.45)
[2020-01-04 10:32] LABS: Allen Test POS; Blood Gas Specimen Type ART; SITE R RADIAL
[2020-01-04 10:33] LABS: O2 Delivery Device Bi Pap
[2020-01-04 10:34] LABS: EPAP 8; FI02 35; IPAP 16; Time Given 956
--- NOTE | 2020-01-04 10:46 | CON.PCM_ITS ---
Problem List (1) S/P CABG x 4 Status: Acute (2) Type 2 diabetes mellitus Status: Chronic (3) Hypercholesterolemia Status: Chronic (4) Respiratory failure with hypoxia and hypercapnia Status: Acute (5) Atrial fibrillation with rapid ventricular response Status: Acute (6) Atherosclerosis of coronary artery of [place] heart without angina pectoris Status: Chronic (7) Essential (primary) hypertension Status: Chronic Reason for Consult Date of Consultation: 01/04/20 Reason for Consultation: Atrial fibrillation with rapid ventricular response, respiratory distress, coronary disease status post recent CABG, hypertension, diabetes, hypercholesterolemia History of Present Illness: The patient is a 59 year old M, patient of Dr. Rondon's, with a history of hypertension, diabetes, hyperlipidemia, severe obesity, recently admitted to [facility] on 11/17/2019 with unstable anginal symptoms. Patient had abnormal troponins and underwent a left heart catheterization by Dr. Rondon which demonstrated an occluded right coronary artery, 70% LAD and 70% left circumflex. Patient was referred to Dr. Kent at [facility] and apparently underwent bypass surgery x4 per the patient on 12/26/2019. He remained there until 01/01/2020 and was subsequently sent home. To the best of his knowledge he had had no atrial fibrillation during his stay, and denies previous known atrial fibrillation. Patient symptoms began almost immediately after arriving home, and complained of progressively worsening shortness of breath, dyspnea, and tachypnea. The patien t sought medical attention in the emergency room this morning where he was found to be in atrial fibrillation with rapid ventricular response of unknown duration, tachycardia, and respiratory distress with hypercapnia. Patient was placed on BiPAP therapy. A chest x-ray was obtained which was suboptimal due to the angle, but he appears to have poor inspiratory effort, and possible bilateral subpulmonic effusions with loss of costophrenic angles as compared to chest x-rays from 2016. The patient denies any anginal symptoms and is tolerating BiPAP well conversing without difficulty. A stat limited bedside echo with Definity agent demonstrated normal LV function with an EF of 65%, relatively normal size of RV, no evidence of pericardial effusion. Patient was started on IV heparin drip, as well as IV amiodarone drip for heart rate and/or rhythm control. We do not have the records from his bypass surgery so it is uncertain whether she has had a atrial clip. Patient is currently hemodynamically stable and will be transferred to the ICU on BiPAP therapy. [] Past Medical History Allergies/Adverse Reactions: Allergies No Known Allergies Allergy (Verified 01/04/20 09:09) Home Medications: Ambulatory Orders Medication Instructions Recorded Acarbose 100 mg PO TIDCM 11/17/19 Atorvastatin Calcium [Lipitor] 80 mg PO QHS 11/17/19 Fluticasone 0.05% [Flonase Nasal 1 spray NASAL DAILY 11/17/19 [place]] Ipratropium [place] 1 spray INHALATION DAILY 11/17/19 Levocetirizine Dihydrochloride 5 mg PO DAILY 11/17/19 Losartan Potassium 50 mg PO DAILY 11/17/19 Temazepam 15 mg PO QHS PRN 11/17/19 Testosterone Cypionate 200 mg IM X1 11/17/19 metFORMIN HCl [Glucophage] 1,000 mg PO BIDCM 11/17/19 Acetaminophen [Acetaminophen Extra 1,000 mg PO Q6H PRN PRN 01/04/20 Strength] Aspirin [Aspirin, Baby] 2 tab PO DAILY@0800 01/04/20 Bisacodyl [Dulcolax] 10 mg PO QHS 01/04/20 Furosemide [Lasix] 40 mg PO DAILY 01/04/20 Gabapentin [Neurontin] 200 mg PO DAILY 01/04/20 Guaifenesin [Mucinex] 600 mg PO BID 01/04/20 Insulin Glargine [Lantus (BKC)] 45 units SUBCUT BID 01/04/20 Insulin Lispro [Insulin Lispro 22 unit SQ TIDCM 01/04/20 Kwikpen U-100] Lidocaine [Salonpas] 1 ea TP DAILY 01/04/20 Magnesium Oxide 400 mg PO DAILY 01/04/20 Metoprolol Tartrate [Lopressor 50 mg PO TID 01/04/20 (Beta Chidi)] Oxycodone [Oxyir] 5 mg PO Q6H PRN PRN 01/04/20 Polyethylene Glycol 3350 [Miralax] 17 gm PO DAILY 01/04/20 Sennosides [Senna] 8.6 mg PO BID 01/04/20 Past Medical History (Chronic Problems): Chronic Problems (Last Updated 12/03/19 @ 12:27 by Serena Wilson) Type 2 diabetes mellitus (Chronic) Hypercholesterolemia (Chronic) Atherosclerosis of coronary artery of campo heart without angina pectoris (Chronic) Chronic diastolic (congestive) heart failure (Chronic) Nonrheumatic aortic (valve) stenosis (Chronic) mild per echo [id number] Essential (primary) hypertension (Chronic) Surgical History: noncontributory, coronary bypass surgery - Four-vessel bypass surgery December 25 Psychiatric History: No pertinent psych hx - *Family History Maternal Family History: Family History (Last Updated 12/03/19 @ 12:26 by Serena Wilson) Mother Hypertension Father Hypertension Heart disease History Items: Hypertension Paternal Family History: Family History (Last Updated 12/03/19 @ 12:26 by Serena Wilson) Mother Hypertension Father Hypertension Heart disease History Items: Heart Disease, Hypertension Lives: Alone Smoking Status: Never smoker Tobacco Use: Non-smoker Alcohol: None Drugs: None Review of Systems - Review of Systems General: Denies: Fever, Night Sweats, Fatigue Cardiovascular: Reports: Shortness of Breath, Shortness of Breath at Rest, Orthopnea, PND, Peripheral Edema. Denies: Chest Discomfort, Palpitations, Lightheadedness, Dizziness, Near Syncope, Syncope Respiratory: Denies: Cough, Sputum Production, Hemoptysis Gastrointestinal: Denies: Hematemesis, Hematochezia, Melena Genitourinary: Denies: Dysuria, Hematuria Skin: Denies: Rash Subjectve: Patient currently on BiPAP therapy. His sternal wound is clean/dry/intact without evidence of crepitance, or instability. Hemodynamically stable. Objective: Vital Signs Temp Pulse Resp BP Pulse Ox 99.4 F H 115 H 22 H 162/69 H 97 01/04/20 09:10 01/04/20 09:48 01/04/20 09:48 01/04/20 09:48 01/04/20 09:48 Oxygen Flow Rate (L/min) 3.5 Oxygen Delivery Method Bi-pap Weight: 329 lb 12.984 oz Body Mass Index (BMI) 46.0 Finger Stick Blood Glucose 128 General: Awake, Alert, Oriented x 3 HEENT: PERRL, EOMI, Sclera Non Icteric Neck: Supple, Good ROM, No Lymph Node Enlargement Lungs: Diminished Sam Bases, Rales - Sam Bases Cardiovascular: Irregular Rhythm, Normal S1, Normal S2, No Murmurs, No Rubs, No Gallops Vascular: No Carotid Bruits, Normal Femoral Pulses, Normal Radial Pulses, Normal Dorsalis Pedal Pulse, Normal Posterior Tibial Pulses Abdomen: Bowel Sounds Present, Soft, Non Tender, No HSM, No Organomegaly Extremities: No Cyanosis, No Clubbing, Bilateral Edema +2 Neurological: No Focal Motor or Sensory Deficit 01/04/20 09:13: WBC 13.6 H, RBC 3.75 L, Hgb 10.9 L, Hct 36.0 L, MCV 96.0 H, MCH 29.1, MCHC 30.3 L, Plt Count 574 H, MPV 10.2, Immature Gran % (Auto) 1.100 H, Neut % (Auto) 77.6 H, Lymph % (Auto) 11.3 L, [place] % (Auto) 7.9, Eos % (Auto) 1.4, Baso % (Auto) 0.7, Absolute Neuts (auto) 10.6 H, Nucleated RBC % 0 01/04/20 09:13: Sodium 136, Potassium 5.4 H, Chloride 100, Carbon Dioxide 32.0, Anion Gap 4 L, BUN 25 H, Creatinine 0.95, Est GFR (MDRD) Af Amer 104, Est GFR (MDRD) Non-Af 86, BUN/Creatinine Ratio 26.4 H, Glucose 144 H, Calcium 8.7, Total Bilirubin 0.60, Troponin I 0.137 H 01/04/20 09:13: Lactic Acid 1.1 01/04/20 09:13: B-Natriuretic Peptide 376.6 H 01/04/20 09:56: pH 7.39, Bicarbonate Actual 30.3 H, POC Total CO2 32, Base Excess 5 H, O2 Saturation 98, ABG pCO2 50.1 H, ABG pO2 107 H, Gustavo Test POS Rhythm: EKG: ECHO: Stat limited bedside echo demonstrated intact LV function with an EF of 65%, no pericardial effusion, final result pending. Stress Test: Cardiac Cath: PCI: CT Surgery: Holter monitor: EPS: PPM: CXR: Chest CT Scan: Assessment/Plan 1. Atrial fibrillation: The patient presents with new onset atrial fibrillation of unknown duration with rapid ventricular response with associated respiratory distress, anasarca, and possible bilateral pleural effusions postop day #9 from multivessel bypass surgery at [facility]. Stat limited bedside echo demonstrates intact LV function with an EF of 65%, no significant RV enlargement noted although images were suboptimal, no evidence of pericardial effusion. At this point I would recommend starting patient on IV heparin drip to keep his PTT between 50?70, and IV amiodarone drip. We will attempt to get the patient's bypass report to determine how many vessels were bypassed, and whether or not he had left atrial clip device. If the patient does not spontaneously convert or chemically convert, he will require long-term anticoagulation therapy for at least 3 to 4 weeks time prior to elective DC cardioversion. 2. Coronary artery disease: The patient denies any chest pain symptoms, and his EKG other than atrial fibrillation has no significant dynamic changes. He is recently undergone multivessel bypass surgery on 12/26/2019. We will attempt to obtain that report. The meantime will continue baby aspirin, metoprolol 50 mg 3 times daily, and losartan 50 mg a day. Final echo result pending. 3. Fluid overload: Patient has evidence of anasarca with fluid overload and evidence of probable bilateral pleural effusions. Recommend starting him on Lasix 40 mg IV twice daily in an attempt to extract between 1.5 and 2 L of net negative fluid per day. Recommend keeping his potassium above 4.0 and magnesium of 2.0. 4. Hyperlipidemia: Continue statin based medications with Lipitor 80 mg p.o. nightly. 5. Patient may be followed up with Dr. Rondon. Thank you very much for the opportunity to participate in the cardiac care of your patient. Discussed with Dr. Cross. Inpatient E&M: 32395 Init Hosp L2
[2020-01-04] MEDS: Amiodarone 360 MG in Dextrose 5% Viaflo Bag 192.8 ML 33.3 MG CONT INF (10:47)
--- NOTE | 2020-01-04 11:13 | NURSING ---
DR CARMEN FOR DR JAMA
--- NOTE | 2020-01-04 11:14 | NURSING ---
ICU PAINTSIL RESP FAILURE, CHF, AFIB WITH RVR
[2020-01-04] MEDS: Heparin Injection (Vial) 5,000 UNIT/ML VIAL 12000 UNIT IV (11:40)
[2020-01-04] MEDS: HEPARIN/D5w 25,000 UNITS 25,000 UNITS/250 ML IV.SOLN. 19 UNITS IV (11:43)
--- NOTE | 2020-01-04 12:48 | EKG12_ITS ---
Test Reason : EKG CHANGE Blood Pressure : / mmHG Vent. Rate : 104 BPM Atrial Rate : 104 BPM P-R Int : 000 ms QRS Dur : 090 ms QT Int : 334 ms P-R-T Axes : 000 044 083 degrees QTc Int : 439 ms Atrial fibrillation Inferior infarct , possibly acute Lateral injury pattern * ACUTE PR Abnormal ECG Confirmed by TATIANA CHAPPELL, DAVINA ([id number]), proposal editor RAGHAVENDRA MARCOS ([id number] on 01/09/2020 3:00:00 PM Referred By: NELLA Confirmed By:DAVINA SIMPSON MD
--- NOTE | 2020-01-04 14:50 | CON.PCM_ITS ---
Problem List (1) Type 2 diabetes mellitus Status: Chronic Qualifiers: Diabetes mellitus fpc insulin use: with fpc use (2) Hypercholesterolemia Status: Chronic (3) Respiratory failure with hypoxia and hypercapnia Status: Acute Qualifiers: Chronicity: acute on chronic Qualified Code(s): J96.21 - Acute and chronic respiratory failure with hypoxia; J96.22 - Acute and chronic respiratory failure with hypercapnia (4) Atrial fibrillation with rapid ventricular response Status: Acute (5) S/P CABG x 4 Status: Acute (6) Nonrheumatic aortic (valve) stenosis Status: Chronic Comment: mild per echo 67628 (7) Essential (primary) hypertension Status: Chronic Reason for Consult Date of Consultation: 01/04/20 Reason for Consultation: ST elevation, possible intubation History of Present Illness: The patient is a 59 year old M, with past medical history listed below, who presented [facility] in 01/04/2020 secondary to shortness of breath. Patient was reportedly 70% on room air by EMS and arrived wearing a nonrebreather with adequate oxygenation. Patient had significant respiratory distress and had stated that he had just had surgery with a four-vessel bypass at [facility] on December 25. In the ER, patient was noted to have a slightly elevated glucose and a BNP of 376. ABG showed adequate oxygenation and ventilation on 35% FiO2. Patient did receive 40 mg of Lasix in the ER and was placed on BiPAP therapy. Patient was also placed on amiodarone. There was a stat limited echo completed in the ER showing no pericardial effusion or tamponade. Patient was then initiated on heparin and admitted to the intensive care unit for further evaluation. While I was in the intensive care unit, the patient had complained of worsening shortness of breath. An EKG was obtained showing changes. This was brought to me by the nurse and was consistent with significant ST elevation of the inferior leads and changes from presentation. Dr. Milner was called by myself personally and the case was discussed. There was some concern that the patient would not be able to lie flat, so I was asked to evaluate the patient for possible intubation. On presentation to the patient's room, he had reported a heaviness of the left chest that was initiated while on BiPAP therapy. Patient was placed flat in the bed and started to have some increased shortness of breath. BiPAP was increased from 16 to 20 cm of water IPAP. Patient was saturating well, so EPAP was not changed. Patient was able to tolerate this pressure well. Patient was personally escorted down to the Machines Technician by myself with intubation supplies. Patient was monitored during the cardiac catheterization and tolerated this well. No interventions were noted, but I did not discussed with Dr. Milner prior to leaving. Unable to obtain a full review of systems on presentation secondary to the acute nature of findings. Patient did have some conversational dyspnea noted even with BiPAP therapy. Past Medical History Past Medical History (Chronic Problems): Chronic Problems (Last Updated 12/03/19 @ 12:27 by Serena Wilson) Type 2 diabetes mellitus (Chronic) Hypercholesterolemia (Chronic) Atherosclerosis of coronary artery of [place] heart without angina pectoris (Chronic) Chronic diastolic (congestive) heart failure (Chronic) Nonrheumatic aortic (valve) stenosis (Chronic) mild per echo 07144 Essential (primary) hypertension (Chronic) Medical History: Medical History (Last Updated 12/03/19 @ 12:27 by Serena Wilson) Atherosclerosis of coronary artery of [place] heart without angina pectoris (Chronic) I25.10 Chronic diastolic (congestive) heart failure (Chronic) I50.32 Nonrheumatic aortic (valve) stenosis (Chronic) I35.0 mild per echo 73681 Essential (primary) hypertension (Chronic) I10 Obesity E66.9 Type 2 diabetes mellitus E11.9 Acute exacerbation of CHF (congestive heart failure) (Resolved) I50.9 Acute respiratory failure with hypoxia Onset Date: 11/17/19 J96.01 Elevated troponin Onset Date: 11/17/19 R79.89 Arteriosclerotic cardiovascular disease (Inactive) I25.10 Triple vessel coronary artery disease (Inactive) I25.10 Allergies No Known Allergies Allergy (Verified 01/04/20 09:09) Home Medications: Ambulatory Orders Medication Instructions Recorded Acarbose 100 mg PO TIDCM 11/17/19 Atorvastatin Calcium [Lipitor] 80 mg PO QHS 11/17/19 Fluticasone 0.05% [Flonase Nasal 1 spray NASAL DAILY 11/17/19 [place]] Ipratropium [place] 1 spray INHALATION DAILY 11/17/19 Levocetirizine Dihydrochloride 5 mg PO DAILY 11/17/19 Losartan Potassium 50 mg PO DAILY 11/17/19 Temazepam 15 mg PO QHS PRN 11/17/19 Testosterone Cypionate 200 mg IM X1 11/17/19 metFORMIN HCl [Glucophage] 1,000 mg PO BIDCM 11/17/19 Acetaminophen [Acetaminophen Extra 1,000 mg PO Q6H PRN PRN 01/04/20 Strength] Aspirin [Aspirin, Baby] 2 tab PO DAILY@0800 01/04/20 Bisacodyl [Dulcolax] 10 mg PO QHS 01/04/20 Furosemide [Lasix] 40 mg PO DAILY 01/04/20 Gabapentin [Neurontin] 200 mg PO DAILY 01/04/20 Guaifenesin [Mucinex] 600 mg PO BID 01/04/20 Insulin Glargine [Lantus (BKC)] 45 units SUBCUT BID 01/04/20 Insulin Lispro [Insulin Lispro 22 unit SQ TIDCM 01/04/20 Kwikpen U-100] Lidocaine [Salonpas] 1 ea TP DAILY 01/04/20 Magnesium Oxide 400 mg PO DAILY 01/04/20 Metoprolol Tartrate [Lopressor 50 mg PO TID 01/04/20 (Beta Chidi)] Oxycodone [Oxyir] 5 mg PO Q6H PRN PRN 01/04/20 Polyethylene Glycol 3350 [Miralax] 17 gm PO DAILY 01/04/20 Sennosides [Senna] 8.6 mg PO BID 01/04/20 Surgical History: Surgical History (Last Updated 12/03/19 @ 12:20 by Serena Wilson) History of left heart catheterization Onset Date: 11/18/19 Z98.890 Surgical History: noncontributory, coronary bypass surgery - Four-vessel bypass surgery December 25 Psychiatric History: No pertinent psych hx Lives: Alone Smoking Status: Never smoker Tobacco Use: Non-smoker Alcohol: None Drugs: None - *Family History Maternal Family History: Family History (Last Updated 12/03/19 @ 12:26 by Serena Wilson) Mother Hypertension Father Hypertension Heart disease History Items: Hypertension Paternal Family History: Family History (Last Updated 12/03/19 @ 12:26 by Serena Wilson) Mother Hypertension Father Hypertension Heart disease History Items: Heart Disease, Hypertension Review of Systems Unable to obtain accurate/complete ROS d/t: See HPI Patient Problems: Active and Suspected Problems (Last Updated 03/28/20 @ 12:20 by Serena Wilson) Respiratory failure with hypoxia and hypercapnia (Acute) Atrial fibrillation with rapid ventricular response (Acute) S/P CABG x 4 (Acute) - Physical Exam Vitals/I&O's: Vital Signs Temp Pulse Resp BP Pulse Ox 36.7 C 95 30 H 144/82 H 99 01/04/20 12:30 01/04/20 13:15 01/04/20 13:15 01/04/20 13:15 01/04/20 13:15 Oxygen Flow Rate (L/min) 4 Oxygen Delivery Method Bi-pap Weight: 149.6 kg Body Mass Index (BMI) 46.0 Finger Stick Blood Glucose 128 General: Alert, Oriented x3, Cooperative, - - Morbidly obese HEENT: Atraumatic, PERRLA, EOMI, Normocephalic Oral: No Gingival or Mucosal Lesions/ Ulcerations, Dry Mucosa Neck: Supple, No Nodes, Trachea Midline, JVD, Right Lungs: No rhonchi, No wheeze, No rales, Diminished Cardiovascular: Normal S1, Normal S2, Irregular Rate, - - Afib on tele. Sternal sutures are clean, dry and intact Abdomen: Bowel Sounds Present, Soft, Non Tender, Non-Distended, Obese Extremities: No clubbing, No cyanosis, Edema - 3+ lower extremity edema Skin: No rashes, No breakdown, Incision - Clean, dry and intact Musculoskeletal: No Tenderness to Palpation of Joints or Extremities Lymphatic: No Cervical, Supraclavicular, or Inguinal Adenopathy Neurological: Cranial nerves II-XII grossly intact, Neuro grossly intact, Motor Exam 5/5 strength throughout Psych/Mental Status: Alert and oriented to time, place, person, mood and affect Laboratory Results 01/04/20 09:13: WBC 13.6 H, RBC 3.75 L, Hgb 10.9 L, Hct 36.0 L, MCV 96.0 H, MCH 29.1, MCHC 30.3 L, RDW Std Deviation 49.2 H, RDW Coeff of [place] 14.1, Plt Count 574 H, MPV 10.2, Immature Gran % (Auto) 1.100 H, Neut % (Auto) 77.6 H, Lymph % (Auto) 11.3 L, [place] % (Auto) 7.9, Eos % (Auto) 1.4, Baso % (Auto) 0.7, Absolute Neuts (auto) 10.6 H, Absolute Lymphs (auto) 1.54, Nucleated RBC % 0 01/04/20 09:13: PT 14.7, INR 1.2, APTT 32.4 01/04/20 09:13: Sodium 136, Potassium 5.4 H, Chloride 100, Carbon Dioxide 32.0, Anion Gap 4 L, BUN 25 H, Creatinine 0.95, Estim Creat Clear Calc 86.97, Est GFR (MDRD) Af Amer 104, Est GFR (MDRD) Non-Af 86, BUN/Creatinine Ratio 26.4 H, Glucose 144 H, Calcium 8.7, Total Bilirubin 0.60, AST 86 H, ALT 104 H, Alkaline Phosphatase 109, Troponin I 0.137 H, Total Protein 7.6, Albumin 2.6 L, Globulin 5.0 H, Albumin/Globulin Ratio 0.5 L 01/04/20 09:13: Lactic Acid 1.1 01/04/20 09:13: B-Natriuretic Peptide 376.6 H 01/04/20 09:17: POC Glucose 128 H 01/04/20 09:56: Specimen Type ART, Sample Site R RADIAL, pH 7.39, Bicarbonate Actual 30.3 H, POC Total CO2 32, Base Excess 5 H, O2 Saturation 98, O2 % 35, ABG pCO2 50.1 H, ABG pO2 107 H, Gustavo Test POS, O2 Delivery Device Bi Pap, EPAP 8, IPAP 16, Blood Gas Notified Whom ED MD, Blood Gas Notified Time 956 01/04/20 13:30: Sodium Cancelled, Potassium Cancelled, Chloride Cancelled, Carbon Dioxide Cancelled, Anion Gap Cancelled, BUN Cancelled, Creatinine Cancelled, Estim Creat Clear Calc Cancelled, Est GFR (MDRD) Af Amer Cancelled, Est GFR (MDRD) Non-Af Cancelled, BUN/Creatinine Ratio Cancelled, Glucose Cancelled, Calcium Cancelled Current Medications Acetaminophen (Tylenol) 1,000 mg PO Q8H PRN PRN PRN Reason: Pain 1-10 or Fever Aspirin (Aspirin, Baby) 162 mg PO DAILY@0800 [facility] Atorvastatin Calcium (Lipitor) 80 mg PO QHS [facility] Bisacodyl (Dulcolax) 10 mg PO QHS [facility] Dextrose (D50w Syringe) 0 gm IV X1 PRN; Protocol PRN Reason: Hypoglycemia Fluticasone Propionate (Flonase Nasal [place]) 1 spray NASAL DAILY [facility] Furosemide (Lasix) 40 mg IV BID [facility] Last Admin: 01/04/20 13:22 Dose: Not Given Documented by: Gabapentin (Neurontin) 200 mg PO DAILY [facility] Glucagon () 1 mg IM .X1 PRN PRN Reason: Hypoglycemia Guaifenesin (Mucinex) 600 mg PO BID [facility] Heparin Sodium (Beef Lung) (Heparin 500 Unit/5 Ml (100/Ml)) 500 unit IV UD PRN PRN Reason: HEPARIN FLUSH Heparin Sodium (Porcine) (Heparin Na) 0 unit IV UD PRN; Protocol Amiodarone HCl 360 mg/ (Dextrose) 200 mls @ 33.333 mls/hr CONT INF .Q6H [facility] Stop: 01/04/20 16:09 Last Admin: 01/04/20 10:47 Dose: 1 mg/min, 33.3 mls/hr Documented by: Heparin Sodium/Dextrose () 25,000 units in 250 mls @ 19 mls/hr IV .[id number] [facility]; Protocol Last Admin: 01/04/20 11:43 Dose: 1,900 units/hr, 19 mls/hr Documented by: Sodium Chloride () 250 mls @ 15 mls/hr IV .[id number] PRN PRN Reason: Saline Flush Sodium Chloride () 250 mls @ 15 mls/hr IV .[id number] PRN PRN Reason: Additional IVPB Infusion Insulin Human Lispro (Humalog Kwikpen (Bkc)) 0 unit SC ACHS [facility]; Protocol Labetalol HCl (Trandate) 5 mg IV X1 PRN PRN Reason: SBP > 160 prior to sheath pull Stop: 01/06/20 14:48 Losartan Potassium (Cozaar) 50 mg PO DAILY [facility] Magnesium Oxide (Mag-Ox 400) 400 mg PO DAILY [facility] Metoprolol Tartrate (Lopressor (Beta Chidi)) 50 mg PO TID [facility] Ondansetron HCl (Zofran) 4 mg IV Q8H PRN PRN PRN Reason: NAUSEA/VOMITING Polyethylene Glycol (Miralax) 17 gm PO DAILY [facility] Senna (Senokot) 1 tablet PO BID [facility] Sodium Chloride () 10 - 40 ml IV UD PRN PRN Reason: SALINE FLUSH Clinical Impression(s) from Imaging Studies Chest X-Ray 01/04/20 09:08 IMPRESSION: Status post CABG with evidence of CHF and blunting of both costophrenic angle. Electronically Signed: Tutu Royal, at 10:08 EDT , Service support , Assessment/Plan Active and Suspected Problems (Last Updated 12/03/19 @ 12:20 by Serena Wilson) Respiratory failure with hypoxia and hypercapnia (Acute) Atrial fibrillation with rapid ventricular response (Acute) S/P CABG x 4 (Acute) RECOMMENDATIONS: 1. Appreciate cardiology recommendations 2. Decrease IPAP to 16 cm of water once back on the intensive care unit 3. Continue diuresis as tolerated 4. Wean oxygen as tolerated 5. Continue BiPAP with sleep. Okay to attempt breaks during the day while awake IMPRESSIONS: 1. Acute hypoxic respiratory failure secondary to acute on chronic diastolic congestive heart failure secondary to A. fib with RVR Patient appears to be clinically overloaded at this time. Patient is appropriately on diuretic therapy along with amiodarone. This does appear to be helping with rate control. Patient had preserved ejection fraction reported on previous echocardiogram. Continue to monitor in the intensive care unit. Patient should continue BiPAP with sleep, but may take breaks during the day. Patient does not have any history of smoking or other obstructive lung disease, so steroids are likely not indicated at this time. Patient has no external signs of complications of CABG at this time. 2. ST segment elevations on EKG with recent quadruple CABG secondary to CAD Unclear etiology. Patient did have some decreased flow noted through 1 of the grafts. Another possible etiology would be the increased intrathoracic pressure associated with BiPAP therapy leading to partial collapse of an immature vein graft. Would recommend decreasing IPAP to 16 cm of water once back in the intensive care unit. Breaks as tolerated. This may improve with continued diuresis. 3. Probable untreated obstructive sleep apnea Patient does not carry a diagnosis of obstructive sleep apnea that I have been able to find. Patient does have a body habitus suggestive of obstructive sleep apnea. Given patient's increased volume status, significant desaturation would be expected with untreated sleep apnea. Empiric BiPAP therapy would be indicated. 4. Hyperlipidemia/morbid obesity/diabetes mellitus type 2/hypertension Complicates care, management, recovery and prognosis. Will need to watch blood sugars closely given probable endogenous steroid production. Patient has received aspirin and statin. Monitor blood pressure closely. Echo does not show any tamponade physiology. TIME: 37 minutes critical care time spent addressing patient's acute hypoxic respiratory failure, ST elevations, review of all data and collaboration with care team. (2 PM to 3:17 PM) 9xxxx: [id number] Critical care first hour
[2020-01-04] MEDS: Nitroglycerin Infusion 250 ML 3 MG CONT INF (15:00)
--- NOTE | 2020-01-04 15:07 | CL.D_ITS ---
Patient Name: HILARIA MOREIRA Study Date: 01/04/2020 Performing: Olegario Milner MD Ht: 70.87 inches 180 cm : 1960 Wt: 330.69 lbs 150 kg Age: 59 Gender: male BSA: 2.61 PROCEDURE(S) PERFORMED [id number]/LV/CABG CLINICAL PROFILE AND INDICATIONS Indications: Stable Known CAD, Cardiac Arrythmia Heart Failure: NYHA Class: 3, Newly Diagnosed: Yes, Heart Failure Type: Diastolic Stress/Imaging Stress/Image Study Performed: No CAD Presentations: STEMI. Symptom onset Date/Time: 01/04/2020 1331 Comorbidities/Risk Factors: Hypertension Dyslipidemia Prior CABG Diabetes Mellitus: Diabetes Therapy: Oral CONCLUSIONS Normal Left Ventricular systolic function LVEF: by LV gram 65 % Elevated Left Ventricular End Diastolic Pressure Triple vessel CAD of the RCA, LAD and LCX/OM Widely patent ARREDONDO To LAD Widely patent composite graft of SVG attached to free ISAK, with grafts to DIAG and OM Widely patent SVG to PDA (small) with distal 60% anastamotic narrowing; no PCI recommended given rece nt CABG and anastomotic narrowing perfusing a small vessel,. No overt lesion that required PCI; ST elevation was most likely due to pt's cardiac supply/demand mi smatch due to rapid afib and outstripping L to R collaterals to previously known occluded RCA; not a true STEMI. RECOMMENDATIONS Management as per referring Railway Signal Operator Hold heparin gtt, start Nitro gtt, continue amio gtt. Attempt IV diuresis with IV lasix; wean bipap therapy. Successful Mynx Control to RFA. D/w Drs. Rondon and Audrey. DESCRIPTION OF PROCEDURE The patient arrived to the procedure lab. The risks and benefits of the procedure as well as a full d escription of our services here and current unavailability of surgical backup were fully explained to the patient and/or their significant other prior to the catheterization. The Timeout was completed, verifying the correct patient and procedure. The patient's procedural site was prepped and draped in the usual fashion. Local anesthetic was given subcutaneously to right groin region with Lidocaine 2%. Using a modified Seldinger technique, arterial access was obtained via the right femoral artery, a 6 Fr sheath was inserted. Left Coronary Artery selective angiography was performed in multiple views u sing a 6 Fr. JL4 catheter. Right Coronary Artery selective angiography was then performed in multiple views using a 6 Fr. 3DRC (Reg) catheter. Saphenous Vein graft to the RCA selective angiography was performed in multiple views using a 6 Fr. 3DRC (Reg) catheter. Saphenous Vein graft to the DIAG 1 selective angiography was performed in multiple views using a 6 Fr. 3DRC (Shashank alexandra) catheter. Left internal mammary artery graft to the LAD selective angiography was performed in mul tiple views using a 6 Fr. 3DRC (Reg) catheter. Left Ventriculography was performed in BOWLING projec tion using a 6 Fr. Pigtail catheter.Contrast was injected through the sheath and the Right Iliac and Femoral artery were assessed for possible closure device.The arterial sheath was pulled and a Mynx cl osure device was deployed for hemostasis CORONARY ANGIOGRAPHY DOMINANCE: Right Dominant LEFT HEART ASSESSMENT Left Ventricular Ejection Fraction: by LV Gram 65 % Inferior Basal Hypokinesis - Mild Normal Left Ventricular systolic function LVEDP: 21 mmHg Elevated Left Ventricular End Diastolic Pressure LEFT MAIN: Angiographically normal LEFT ANTERIOR DESCENDING ARTERY: PROX LAD: Mild calcification, 75 % Stenosis CIRCUMFLEX ARTERY: MID CIRC: Moderate luminal irregularities up to 50% RIGHT CORONARY ARTERY: DISTAL RCA: is occluded GRAFTS: ARREDONDO graft to the Mid LAD is patent Saphenous Vein graft to the RPDA is patent Saphenous Vein graft to the RPDA has a distal anastomotic lesion of 60 %, feeds a very small portion of PDA and has REID III flow. Sequential graft to the DIAG and OM is widely patent (composed of an SVG sutured into the free ISAK) COLLATERAL FLOW: Collateral flow from Left to Right COMPLICATIONS No Complications PROCEDURE MEDICATIONS Lasix 80 mg IV 01/04/2020 14:37:47 Heparin 25,000u / 250ml D5W @ discontinued 01/04/2020 14:44:00 SUMMARY OF HEMODYNAMIC DATA Time AIR REST AO 139/84 (105) SA 14:23:21 LV 164/-11, 21 14:31:31 LVp 166/-7, 19 14:31:42 AOp 138/63 (86) 14:31:47 Signed By Olegario Milner MD On 01/04/2020 15:10:43 Signed By Olegario Milner MD On 01/04/2020 15:06:50 Olegario Milner MD
[2020-01-04 15:16] LABS: ACT Activated Clotting Time 180 sec (74-137)
--- NOTE | 2020-01-04 15:20 | CPS ---
transferred back from pit laborer on BIPAP, pt maynor well.
--- NOTE | 2020-01-04 16:03 | PCM.HP.STD ---
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 (3) Hypercholesterolemia Status: Chronic (4) Respiratory failure with hypoxia and hypercapnia Status: Acute Qualifiers: Chronicity: acute on chronic Qualified Code(s): J96.21 - Acute and chronic respiratory failure with hypoxia; J96.22 - Acute and chronic respiratory failure with hypercapnia (5) Atherosclerosis of coronary artery of [place] heart without angina pectoris Status: Chronic Qualifiers: Coronary Disease-Associated Artery/Lesion type: unspecified vessel or lesion type Qualified Code(s): I25.10 - Atherosclerotic heart disease of [place] coronary artery without angina pectoris (6) Essential (primary) hypertension Status: Chronic History of Present Illness Date of Admission: 01/04/20 Chief Complaint: Shortness of breath - 2 day The patient is a 59 year old M with past medical history significant for CAD status post CABG x4, Hypertension, type II DM,, morbid obesity who rece he admits to orthopnea and PND with bilateral leg swelling. Patient had his CABG procedure done on 12/26/19. Patient recently had a left heart cath done which showed severe CAD involving LAD, ramus, circumflex with an occluded RCA. Patient was sent to [facility] for CABG. Patient was discharged on 12/31/19. Since his discharge he has been progressively short of breath. He admits to orthopnea, PND and bilateral leg swelling. In the ED, temperature was 90 9.4F, heart rate 115, blood pressure 161/77, respiratory rate 28, oxygen saturation was 96% on 4 L of oxygen. Is not on oxygen at baseline. BC count of 13.6, hemoglobin 10.9, platelet count 574, INR 1.2, urine was 136, potassium 5.4, chloride 100, bicarbonate 32, BUN 25, creatinine 0.95, glucose 144, lactic acid 1.1, LFTs showed elevated AST of 86, ALT 104, ALP 109, troponin was 0.137, BNPep was 376.6 Patient's initial EKG showed a flutter with RVR. He was seen by cardiology in the ED and started on IV amiodarone drip as well as IV heparin and Lasix. Admitting chest x-ray was consistent with acute CHF. Patient was also started on BiPAP with improvement in oxygenation. In the intensive care unit, patient however had chest pain with ST segment elevation in the inferolateral leads consistent with acute STEMI. Was taken to the [facility] and findings showed widely patent vessels except for distal 60% anastomotic narrowing of the SVG to PDA. No PCI was performed. Past Medical History Past Medical History (Chronic Problems): Chronic Problems (Last Updated 12/03/19 @ 12:27 by Serena Wilson) Type 2 diabetes mellitus (Chronic) Hypercholesterolemia (Chronic) Obesity (Chronic) History of left heart catheterization (Chronic 01/04/20) 11/18/19 per [facility]: Triple-vessel disease involving a totally occluded dominant right coronary artery, moderately severe disease noted in the left anterior descending artery, ramus intermedius, and circumflex artery. Recommend surgical consult for revascularization. 01/04/2020:Normal Left Ventricular systolic function; LVEF: by LV gram 65 %. Elevated Left Ventricular End Diastolic Pressure. Triple vessel CAD of the RCA, LAD and LCX/OM; Widely patent ARREDONDO To LAD Widely patent composite graft of SVG attached to free ISAK, with grafts to DIAG and OM; Widely patent SVG to PDA (small) with distal 60% anastamotic narrowing; no PCI recommended given recent CABG and anastomotic narrowing perfusing a small vessel. No overt lesion that required PCI; ST elevation was most likely due to pt's cardiac supply/demand mismatch due to rapid afib and outstripping L to R collaterals to previously known occluded RCA; not a true STEMI. 01/04/20 per [facility] Type 2 diabetes mellitus (Chronic) Atherosclerosis of coronary artery of [place] heart without angina pectoris (Chronic) Chronic diastolic (congestive) heart failure (Chronic) Nonrheumatic aortic (valve) stenosis (Chronic) mild per echo 74134 Essential (primary) hypertension (Chronic) Medical History: Medical History (Last Updated 12/03/19 @ 12:27 by Serena Wilson) Obesity (Chronic) E66.9 Type 2 diabetes mellitus (Chronic) E11.9 Atherosclerosis of coronary artery of [place] heart without angina pectoris (Chronic) I25.10 Chronic diastolic (congestive) heart failure (Chronic) I50.32 Nonrheumatic aortic (valve) stenosis (Chronic) I35.0 mild per echo 75808 Essential (primary) hypertension (Chronic) I10 Acute exacerbation of CHF (congestive heart failure) (Resolved) I50.9 Acute respiratory failure with hypoxia Onset Date: 11/17/19 J96.01 Elevated troponin Onset Date: 11/17/19 R79.89 Arteriosclerotic cardiovascular disease (Inactive) I25.10 Triple vessel coronary artery disease (Inactive) I25.10 Allergies No Known Allergies Allergy (Verified 01/04/20 09:09) Home Medications: Ambulatory Orders Medication Instructions Recorded Acarbose 100 mg PO TIDCM 11/17/19 Atorvastatin Calcium [Lipitor] 80 mg PO QHS 11/17/19 Fluticasone 0.05% [Flonase Nasal 1 spray NASAL DAILY 11/17/19 [place]] Ipratropium [place] 1 spray INHALATION DAILY 11/17/19 Levocetirizine Dihydrochloride 5 mg PO DAILY 11/17/19 Losartan Potassium 50 mg PO DAILY 11/17/19 Temazepam 15 mg PO QHS PRN 11/17/19 Testosterone Cypionate 200 mg IM X1 11/17/19 metFORMIN HCl [Glucophage] 1,000 mg PO BIDCM 11/17/19 Acetaminophen [Acetaminophen Extra 1,000 mg PO Q6H PRN PRN 01/04/20 Strength] Aspirin [Aspirin, Baby] 2 tab PO DAILY@0800 01/04/20 Bisacodyl [Dulcolax] 10 mg PO QHS 01/04/20 Furosemide [Lasix] 40 mg PO DAILY 01/04/20 Gabapentin [Neurontin] 200 mg PO DAILY 01/04/20 Guaifenesin [Mucinex] 600 mg PO BID 01/04/20 Insulin Glargine [Lantus (BKC)] 45 units SUBCUT BID 01/04/20 Insulin Lispro [Insulin Lispro 22 unit SQ TIDCM 01/04/20 Kwikpen U-100] Lidocaine [Salonpas] 1 ea TP DAILY 01/04/20 Magnesium Oxide 400 mg PO DAILY 01/04/20 Metoprolol Tartrate [Lopressor 50 mg PO TID 01/04/20 (Beta Chidi)] Oxycodone [Oxyir] 5 mg PO Q6H PRN PRN 04/29/20 Polyethylene Glycol 3350 [Miralax] 17 gm PO DAILY 01/04/20 Sennosides [Senna] 8.6 mg PO BID 01/04/20 Surgical History: Surgical History (Last Updated 01/04/20 @ 15:34 by Fiorella Cespedes) History of left heart catheterization (Chronic) Onset Date: 01/04/20 Z98.890 11/18/19 per [facility] @ [facility]: Triple-vessel disease involving a totally occluded dominant right coronary artery, moderately severe disease noted in the left anterior descending artery, ramus intermedius, and circumflex artery. Recommend surgical consult for revascularization. 01/04/2020:Normal Left Ventricular systolic function; LVEF: by LV gram 65 %. Elevated Left Ventricular End Diastolic Pressure. Triple vessel CAD of the RCA, LAD and LCX/OM; Widely patent ARREDONDO To LAD Widely patent composite graft of SVG attached to free ISAK, with grafts to DIAG and OM; Widely patent SVG to PDA (small) with distal 60% anastamotic narrowing; no PCI recommended given recent CABG and anastomotic narrowing perfusing a small vessel. No overt lesion that required PCI; ST elevation was most likely due to pt's cardiac supply/demand mismatch due to rapid afib and outstripping L to R collaterals to previously known occluded RCA; not a true STEMI. 01/04/20 per [facility] @ [facility] Surgical History: coronary bypass surgery - Four-vessel bypass surgery December 25 Psychiatric History: No pertinent psych hx Lives: Alone Smoking Status: Never smoker Tobacco Use: Non-smoker Alcohol: None Drugs: None - *Family History Maternal Family History: Family History (Last Updated 12/03/19 @ 12:26 by Serena Wilson) Mother Hypertension Father Hypertension Heart disease History Items: Cancer - breast cancer, Hypertension Paternal Family History: Family History (Last Updated 12/03/19 @ 12:26 by Serena Wilson) Mother Hypertension Father Hypertension Heart disease History Items: Heart Disease, Hypertension Review of Systems Constitutional: Reports: Weakness. Denies: Anorexia, Chills, Fever, Night Sweats, Malaise, Weight Change, Fatigue Eyes: Denies: Blurred vision, Cataracts, Conjunctivae Inflammation, Pain, Redness HEENT: Denies: Difficulty Hearing, Difficulty Swallowing, Head Aches, Hearing Changes, Sinus Congestion, Sinus Drainage Cardiovascular: Denies: Chest Pain, Claudication, Light Headedness, Orthopnea, Palpitations, Paroxysmal Noc. Dyspnea Respiratory: Reports: Cough, Shortness of Breath, Shortness of breath at rest, Shortness of breath upon exertion. Denies: Sputum production Gastrointestinal: Denies: Abdominal Pain, Constipation, Hematemesis, Hematochezia, Nausea, Vomiting Genitourinary: Denies: Dysuria, Frequency, Incontinence, Nocturia Musculoskeletal: Denies: Joint Pain, Joint stiffness, Joint swelling, Joint Tenderness Skin: Denies: Rash, Wounds Neurological: Denies: Difficulty swallowing, Focal weakness, Numbness, Tingling Psychiatric: Denies: Anxiety, Depression, Homicidal Ideations, Suicidal Ideations Hematologic/ Lymphatic: Denies: Easy Bruising, Easy Bleeding VTE Information - Inpt Only VTE Present on Admission: No VTE Pharm Prophylaxis ordered?: Yes Patient Problems: Active and Suspected Problems (Last Updated 01/04/20 @ 15:34 by Fiorella Cespedes) Atrial flutter with rapid ventricular response (Acute) Respiratory failure with hypoxia and hypercapnia (Acute) Atrial fibrillation with rapid ventricular response (Acute) S/P CABG x 4 (Acute) - Physical Exam Vitals/I&O's: Vital Signs Temp Pulse Resp BP Pulse Ox 98.1 F 93 28 H 110/75 100 01/04/20 15:00 01/04/20 16:00 01/04/20 15:45 01/04/20 15:45 01/04/20 15:45 Oxygen Flow Rate (L/min) 4 Oxygen Delivery Method Bi-pap Weight: 149.6 kg Body Mass Index (BMI) 46.1 Finger Stick Blood Glucose 128 General: Alert, Oriented x3, Cooperative, - - in moderate respiratory distress, RR >35, use of accessory muscles of respiration, super morbidly obese HEENT: Atraumatic, PERRLA, EOMI, Normocephalic Neck: Supple Lungs: Diminished, Rales - in the lower lung zones Cardiovascular: Regular rate, Regular Rhythm, Normal S1, Normal S2, No murmurs Abdomen: Bowel Sounds Present, Soft, Non Tender, Non-Distended, No Hepato-splenomegaly Extremities: No edema Skin: No rashes Musculoskeletal: No Tenderness to Palpation of Joints or Extremities Lymphatic: No Cervical, Supraclavicular, or Inguinal Adenopathy Neurological: Cranial nerves II-XII grossly intact, Neuro grossly intact Psych/Mental Status: Normal Affect, Appropriate Laboratory Results 01/04/20 09:13: WBC 13.6 H, RBC 3.75 L, Hgb 10.9 L, Hct 36.0 L, MCV 96.0 H, MCH 29.1, MCHC 30.3 L, RDW Std Deviation 49.2 H, RDW Coeff of [place] 14.1, Plt Count 574 H, MPV 10.2, Immature Gran % (Auto) 1.100 H, Neut % (Auto) 77.6 H, Lymph % (Auto) 11.3 L, [place] % (Auto) 7.9, Eos % (Auto) 1.4, Baso % (Auto) 0.7, Absolute Neuts (auto) 10.6 H, Absolute Lymphs (auto) 1.54, Nucleated RBC % 0 01/04/20 09:13: PT 14.7, INR 1.2, APTT 32.4 01/04/20 09:13: Sodium 136, Potassium 5.4 H, Chloride 100, Carbon Dioxide 32.0, Anion Gap 4 L, BUN 25 H, Creatinine 0.95, Estim Creat Clear Calc 86.97, Est GFR (MDRD) Af Amer 104, Est GFR (MDRD) Non-Af 86, BUN/Creatinine Ratio 26.4 H, Glucose 144 H, Calcium 8.7, Total Bilirubin 0.60, AST 86 H, ALT 104 H, Alkaline Phosphatase 109, Troponin I 0.137 H, Total Protein 7.6, Albumin 2.6 L, Globulin 5.0 H, Albumin/Globulin Ratio 0.5 L 01/04/20 09:13: Lactic Acid 1.1 01/04/20 09:13: B-Natriuretic Peptide 376.6 H 01/04/20 09:17: POC Glucose 128 H 01/04/20 09:56: Specimen Type ART, Sample Site R RADIAL, pH 7.39, Bicarbonate Actual 30.3 H, POC Total CO2 32, Base Excess 5 H, O2 Saturation 98, O2 % 35, ABG pCO2 50.1 H, ABG pO2 107 H, Gustavo Test POS, O2 Delivery Device Bi Pap, EPAP 8, IPAP 16, Blood Gas Notified Whom ED , Blood Gas Notified Time 956 01/04/20 13:30: Sodium Cancelled, Potassium Cancelled, Chloride Cancelled, Carbon Dioxide Cancelled, Anion Gap Cancelled, BUN Cancelled, Creatinine Cancelled, Estim Creat Clear Calc Cancelled, Est GFR (MDRD) Af Amer Cancelled, Est GFR (MDRD) Non-Af Cancelled, BUN/Creatinine Ratio Cancelled, Glucose Cancelled, Calcium Cancelled 01/04/20 14:20: Activated Clotting Time 180 H Current Medications Acetaminophen (Tylenol) 1,000 mg PO Q8H PRN PRN PRN Reason: Pain 1-10 or Fever Atorvastatin Calcium (Lipitor) 80 mg PO QHS [facility] Bisacodyl (Dulcolax) 10 mg PO QHS [facility] Dextrose (D50w Syringe) 0 gm IV X1 PRN; Protocol PRN Reason: Hypoglycemia Fluticasone Propionate (Flonase Nasal [place]) 1 spray NASAL DAILY [facility] Furosemide (Lasix) 80 mg IV BID@1000,1800 [facility] Gabapentin (Neurontin) 200 mg PO DAILY [facility] Glucagon () 1 mg IM .X1 PRN PRN Reason: Hypoglycemia Guaifenesin (Mucinex) 600 mg PO BID [facility] Heparin Sodium (Beef Lung) (Heparin 500 Unit/5 Ml (100/Ml)) 500 unit IV UD PRN PRN Reason: HEPARIN FLUSH Heparin Sodium (Porcine) (Heparin Na) 0 unit IV UD PRN; Protocol Amiodarone HCl 360 mg/ (Dextrose) 200 mls @ 33.333 mls/hr CONT INF .Q6H [facility] Stop: 01/04/20 16:09 Last Admin: 01/04/20 10:47 Dose: 1 mg/min, 33.3 mls/hr Documented by: Heparin Sodium/Dextrose () 25,000 units in 250 mls @ 19 mls/hr IV .[id number] [facility]; Protocol Last Admin: 01/04/20 11:43 Dose: 1,900 units/hr, 19 mls/hr Documented by: Sodium Chloride () 250 mls @ 15 mls/hr IV .[id number] PRN PRN Reason: Saline Flush Sodium Chloride () 250 mls @ 15 mls/hr IV .[id number] PRN PRN Reason: Additional IVPB Infusion Nitroglycerin/Dextrose () 250 mls @ 3 mls/hr CONT INF .[id number] [facility]; Protocol Insulin Human Lispro (Humalog Kwikpen (Bkc)) 0 unit SC ACHS [facility]; Protocol Labetalol HCl (Trandate) 5 mg IV X1 PRN PRN Reason: SBP > 160 prior to sheath pull Stop: 01/06/20 14:48 Magnesium Oxide (Mag-Ox 400) 400 mg PO DAILY [facility] Metoprolol Tartrate (Lopressor (Beta Chidi)) 50 mg PO TID [facility] Ondansetron HCl (Zofran) 4 mg IV Q8H PRN PRN PRN Reason: NAUSEA/VOMITING Polyethylene Glycol (Miralax) 17 gm PO DAILY [facility] Senna (Senokot) 1 tablet PO BID [facility] Sodium Chloride () 10 - 40 ml IV UD PRN PRN Reason: SALINE FLUSH Assessment/Plan All Active Problems (Last Updated 12/03/19 @ 12:27 by Serena Wilson) Atrial flutter with rapid ventricular response (Acute) Respiratory failure with hypoxia and hypercapnia (Acute) Atrial fibrillation with rapid ventricular response (Acute) S/P CABG x 4 (Acute) Acute exacerbation of CHF (congestive heart failure) (Resolved) 1. Acute inferolateral STEMI, status post cardiac cath No PCI performed. Recent CABG (12/26/19), widely patent grafts except for small region in SVG to PDA not amendable Discussed with cardiology; will discontinue aspirin, continue on heparin 6 hours after PCI 2. Acute CHF likely secondary to A flutter with RVR Started on IV Lasix, will continue on BiPAP and Lasix 3. A flutter with RVR, started on IV amiodarone, heparin Continue on metoprolol 4. Type II DM, on insulin Will hold home insulin regimen Continue on accuchecks with ISS 5. Hyperkalemia, potassium 5.4, likely secondary to fluid shifts Home losartan is held for now Will repeat BMP in am 6. Morbid obesity, BMI 46.2, probable VASILIY 7. DVT PPx- on heparin drip Inpatient E&M: [id number] [facility] L3
[2020-01-04 17:31] LABS: Bedside Glucose 72 mg/dL (70-110)
[2020-01-04] MEDS: Amiodarone 360 MG in Dextrose 5% Viaflo Bag 192.8 ML 16.7 MG CONT INF (17:33)
[2020-01-04] MEDS: Furosemide 100 MG/10 ML Vial 80 MG IV (18:21)
[2020-01-04] MEDS: Acetaminophen 500 MG Tablet 1000 MG PO (18:27)
[2020-01-04] MEDS: Temazepam 15 MG Capsule PO (21:37)
[2020-01-04] MEDS: Metoprolol Tartrate 50 MG Tablet PO (21:38)
[2020-01-04] MEDS: Atorvastatin Calcium 80 MG Tablet PO (21:38)
[2020-01-04] MEDS: Senna Tablet 1 TABLET PO (21:39)
[2020-01-04 22:01] LABS: Bedside Glucose 140 mg/dL (70-110)
[2020-01-05] VITALS (32 sets, daily range): BP systolic 96–158; BP diastolic 62–118; PULSE 71–97; RESP 18–38; TEMP 35.7–37.1; O2SAT 90–99
[2020-01-05] MEDS: Acetaminophen 500 MG Tablet 1000 MG PO ×3 (01:27→18:42)
[2020-01-05 03:49] LABS: Absolute Lymphocyte Count 1.34 X10^3/uL (0.83-4.51); Absolute Neutrophil Count 11.5 X10^3/uL (2.0-7.7); Basophil# 0.07 X10^3/uL; Basophil% 0.5 % (0-1); Eosinophil# 0.13 X10^3/uL; Eosinophils% 0.9 % (0-5); Hematocrit 31.8 % (40-54); Hemoglobin 9.9 g/dL (13.0-16.5); Lymphocyte # 1.34 X10^3/ul (4.0); Lymphocyte % 9.4 % (19-41); Mean Corp Hgb Conc 31.1 g/dL (32-36); Mean Corpuscular Volume 93.3 fL (80-94); Monocyte% 7.7 % (0-10); NRBC Flagged by Analyzer 0 % (0-5); Neutrophil # 11.45 X10^3/uL (2.7-7.7); Neutrophil % 80.6 % (47-70); Platelet Count 465 K/mm3 (150-450); RBC Distribution Width CV 14.2 % (11.6-14.6); RBC Distribution Width SD 48.6 fl (35.1-43.9); Red Blood Count 3.41 M/mm3 (4.6-6.2); White Blood Count 14.2 K/mm3 (4.4-11.0)
[2020-01-05 03:59] LABS: Partial Thromboplast Time 83.7 Seconds (24.1-36.2)
[2020-01-05 04:11] LABS: ALB/GLOB Ratio 0.5 RATIO (0.9-2.4); AST(SGOT) 146 U/L (15-37); Alanine Aminotransfer ALT/SGPT 96 U/L (16-61); Albumin, Serum 2.3 g/dL (3.2-5.0); Alkaline Phosphatase 99 U/L (45-117); Anion Gap 5 (5-15); BUN 28 mg/dL (7-18); BUN/Creat Ratio 26.7 RATIO (10-20); Calcium,Total 8.7 mg/dL (8.5-10.1); Chloride 98 mmol/L (98-107); Creatinine, Serum 1.05 mg/dL (0.70-1.30); EST Glomerular Filtration Rate 76 mL/min (>60); Est Glom Filt Rate - Afr Amer 92 mL/min (>60); Estimated Creatinine Clearance 76.28 ml/min; Globulin 4.7 g/dL (2.2-4.2); Glucose 138 mg/dL (74-106); Potassium 4.6 mmol/L (3.5-5.1); Sodium Level 136 mmol/L (136-145)
[2020-01-05] MEDS: Amiodarone 360 MG in Dextrose 5% Viaflo Bag 192.8 ML 16.7 MG CONT INF ×2 (06:13→18:40)
[2020-01-05] MEDS: Metoprolol Tartrate 50 MG Tablet PO ×3 (06:13→20:59)
[2020-01-05] MEDS: HEPARIN/D5w 25,000 UNITS 25,000 UNITS/250 ML IV.SOLN. 18 UNITS IV (06:19)
--- NOTE | 2020-01-05 07:34 | PN_ITS ---
Subjective: Patient did well overnight. Patient states he feels subjectively improved compared to yesterday. Patient was on nasal cannula yesterday evening and used BiPAP for approximately 2 hours overnight. Patient was on minimal nasal cannula this morning. Patient denied any chest pain, nausea or vomiting. Patient currently asking to go home. Objective: Discussed with Dr. Milner about heart catheterization. No intervention was required. ST segments had normalized by return to the intensive care unit General: Alert, Oriented x3, Cooperative, No apparent distress, - - Morbidly obese. Speaking in full sentences. HEENT: Atraumatic, PERRLA, EOMI, Normocephalic, - - No scleral icterus or injection noted Oral: Moist Mucosa, No Gingival or Mucosal Lesions/ Ulcerations Neck: Supple, No JVD, No Nodes, Trachea Midline Lungs: No rhonchi, No wheeze, No rales, Diminished, - - Symmetric expansion. No dullness to percussion. No cough with use of incentive spirometer. Cardiovascular: Regular Rhythm, Normal S1, Normal S2, No murmurs, No rub noted, No Gallop, Tachycardic, - - Sternotomy incision appears clean, dry and intact Abdomen: Bowel Sounds Present, Soft, Non Tender, Non-Distended, Obese Extremities: No clubbing, No cyanosis, Edema Skin: - - No change compared to yesterday Musculoskeletal: No Tenderness to Palpation of Joints or Extremities Lymphatic: No Cervical, Supraclavicular, or Inguinal Adenopathy Neurological: Cranial nerves II-XII grossly intact, Neuro grossly intact, Motor Exam 5/5 strength throughout Psych/Mental Status: Alert and oriented to time, place, person, mood and affect Vital Signs Temp Pulse Resp BP Pulse Ox 37.1 C 90 26 H 99/86 H 94 01/05/20 04:00 01/05/20 07:00 01/05/20 07:00 01/05/20 07:00 01/05/20 07:00 Oxygen Flow Rate (L/min) 2 Oxygen Delivery Method Room Air Weight: 149.6 kg Body Mass Index (BMI) 46.1 Finger Stick Blood Glucose 128 Intake and Output for Last 24 Hours 01/03/20 01/04/20 01/05/20 23:59 23:59 23:59 Intake Total 409.42 / 649.42 644.02 / 644.02 Output Total 1200 / 1900 900 / 900 Balance -790.58 / -1250.58 -255.98 / -255.98 Labs (Last 48 Hours) 01/04/20 01/04/20 01/04/20 09:13 09:13 09:13 WBC 13.6 H RBC 3.75 L Hgb 10.9 L Hct 36.0 L MCV 96.0 H MCH 29.1 MCHC 30.3 L RDW Std Deviation 49.2 H RDW Coeff of [place] 14.1 Plt Count 574 H MPV 10.2 Immature Gran % (Auto) 1.100 H Neut % (Auto) 77.6 H Lymph % (Auto) 11.3 L [place] % (Auto) 7.9 Eos % (Auto) 1.4 Baso % (Auto) 0.7 Absolute Neuts (auto) 10.6 H Absolute Lymphs (auto) 1.54 Nucleated RBC % 0 PT 14.7 INR 1.2 APTT 32.4 Activated Clotting Time Specimen Type Sample Site pH Bicarbonate Actual POC Total CO2 Base Excess O2 Saturation O2 % ABG pCO2 ABG pO2 Gustavo Test O2 Delivery Device EPAP IPAP Blood Gas Notified Whom Blood Gas Notified Time Sodium 136 Potassium 5.4 H Chloride 100 Carbon Dioxide 32.0 Anion Gap 4 L BUN 25 H Creatinine 0.95 Estim Creat Clear Calc 86.97 Est GFR (MDRD) Af Amer 104 Est GFR (MDRD) Non-Af 86 BUN/Creatinine Ratio 26.4 H Glucose 144 H Lactic Acid Calcium 8.7 Total Bilirubin 0.60 AST 86 H ALT 104 H Alkaline Phosphatase 109 Troponin I 0.137 H B-Natriuretic Peptide Total Protein 7.6 Albumin 2.6 L Globulin 5.0 H Albumin/Globulin Ratio 0.5 L POC Glucose 01/04/20 01/04/20 01/04/20 09:13 09:13 09:17 WBC RBC Hgb Hct MCV MCH MCHC RDW Std Deviation RDW Coeff of [place] Plt Count MPV Immature Gran % (Auto) Neut % (Auto) Lymph % (Auto) [place] % (Auto) Eos % (Auto) Baso % (Auto) Absolute Neuts (auto) Absolute Lymphs (auto) Nucleated RBC % PT INR APTT Activated Clotting Time Specimen Type Sample Site pH Bicarbonate Actual POC Total CO2 Base Excess O2 Saturation O2 % ABG pCO2 ABG pO2 Gustavo Test O2 Delivery Device EPAP IPAP Blood Gas Notified Whom Blood Gas Notified Time Sodium Potassium Chloride Carbon Dioxide Anion Gap BUN Creatinine Estim Creat Clear Calc Est GFR (MDRD) Af Amer Est GFR (MDRD) Non-Af BUN/Creatinine Ratio Glucose Lactic Acid 1.1 Calcium Total Bilirubin AST ALT Alkaline Phosphatase Troponin I B-Natriuretic Peptide 376.6 H Total Protein Albumin Globulin Albumin/Globulin Ratio POC Glucose 128 H 01/04/20 01/04/20 01/04/20 09:56 13:30 14:20 WBC RBC Hgb Hct MCV MCH MCHC RDW Std Deviation RDW Coeff of [place] Plt Count MPV Immature Gran % (Auto) Neut % (Auto) Lymph % (Auto) [place] % (Auto) Eos % (Auto) Baso % (Auto) Absolute Neuts (auto) Absolute Lymphs (auto) Nucleated RBC % PT INR APTT Activated Clotting Time 180 H Specimen Type ART Sample Site R RADIAL pH 7.39 Bicarbonate Actual 30.3 H POC Total CO2 32 Base Excess 5 H O2 Saturation 98 O2 % 35 ABG pCO2 50.1 H ABG pO2 107 H Gustavo Test POS O2 Delivery Device Bi Pap EPAP 8 IPAP 16 Blood Gas Notified Whom ED MD Blood Gas Notified Time 956 Sodium Cancelled Potassium Cancelled Chloride Cancelled Carbon Dioxide Cancelled Anion Gap Cancelled BUN Cancelled Creatinine Cancelled Estim Creat Clear Calc Cancelled Est GFR (MDRD) Af Amer Cancelled Est GFR (MDRD) Non-Af Cancelled BUN/Creatinine Ratio Cancelled Glucose Cancelled Lactic Acid Calcium Cancelled Total Bilirubin AST ALT Alkaline Phosphatase Troponin I B-Natriuretic Peptide Total Protein Albumin Globulin Albumin/Globulin Ratio POC Glucose 01/04/20 01/04/20 01/05/20 17:23 21:36 03:45 WBC 14.2 H RBC 3.41 L Hgb 9.9 L Hct 31.8 L MCV 93.3 MCH 29.0 MCHC 31.1 L RDW Std Deviation 48.6 H RDW Coeff of [place] 14.2 Plt Count 465 H MPV 10.0 Immature Gran % (Auto) 0.900 Neut % (Auto) 80.6 H Lymph % (Auto) 9.4 L [place] % (Auto) 7.7 Eos % (Auto) 0.9 Baso % (Auto) 0.5 Absolute Neuts (auto) 11.5 H Absolute Lymphs (auto) 1.34 Nucleated RBC % 0 PT INR APTT Activated Clotting Time Specimen Type Sample Site pH Bicarbonate Actual POC Total CO2 Base Excess O2 Saturation O2 % ABG pCO2 ABG pO2 Gustavo Test O2 Delivery Device EPAP IPAP Blood Gas Notified Whom Blood Gas Notified Time Sodium Potassium Chloride Carbon Dioxide Anion Gap BUN Creatinine Estim Creat Clear Calc Est GFR (MDRD) Af Amer Est GFR (MDRD) Non-Af BUN/Creatinine Ratio Glucose Lactic Acid Calcium Total Bilirubin AST ALT Alkaline Phosphatase Troponin I B-Natriuretic Peptide Total Protein Albumin Globulin Albumin/Globulin Ratio POC Glucose 72 140 H 01/05/20 01/05/20 03:45 03:45 WBC RBC Hgb Hct MCV MCH MCHC RDW Std Deviation RDW Coeff of [place] Plt Count MPV Immature Gran % (Auto) Neut % (Auto) Lymph % (Auto) [place] % (Auto) Eos % (Auto) Baso % (Auto) Absolute Neuts (auto) Absolute Lymphs (auto) Nucleated RBC % PT INR APTT 83.7 H Activated Clotting Time Specimen Type Sample Site pH Bicarbonate Actual POC Total CO2 Base Excess O2 Saturation O2 % ABG pCO2 ABG pO2 Gustavo Test O2 Delivery Device EPAP IPAP Blood Gas Notified Whom Blood Gas Notified Time Sodium 136 Potassium 4.6 Chloride 98 Carbon Dioxide 33.0 H Anion Gap 5 BUN 28 H Creatinine 1.05 Estim Creat Clear Calc 76.28 Est GFR (MDRD) Af Amer 92 Est GFR (MDRD) Non-Af 76 BUN/Creatinine Ratio 26.7 H Glucose 138 H Lactic Acid Calcium 8.7 Total Bilirubin 0.60 AST 146 H ALT 96 H Alkaline Phosphatase 99 Troponin I B-Natriuretic Peptide Total Protein 7.0 Albumin 2.3 L Globulin 4.7 H Albumin/Globulin Ratio 0.5 L POC Glucose Clinical Impression(s) from Imaging Studies Chest X-Ray 01/04/20 09:08 IMPRESSION: Status post CABG with evidence of CHF and blunting of both costophrenic angle. Electronically Signed: Tutu Royal, at 10:08 EDT , Service support , Medical Necessity - Tobacco Use Smoking Status: Never smoker Tobacco Use: Non-smoker Assessment/Plan All Active Problems (Last Updated 12/03/19 @ 12:27 by Serena Wilson) Atrial flutter with rapid ventricular response (Acute) Respiratory failure with hypoxia and hypercapnia (Acute) Atrial fibrillation with rapid ventricular response (Acute) S/P CABG x 4 (Acute) Acute exacerbation of CHF (congestive heart failure) (Resolved) RECOMMENDATIONS: 1. Appreciate cardiology recommendations 2. Patient should be evaluated for obstructive sleep apnea as an outpatient 3. Continue diuresis as tolerated 4. Walking oximetry prior to discharge 5. Okay to leave the intensive care unit from my perspective. Defer discharge to cardiology. IMPRESSIONS: 1. Acute hypoxic respiratory failure secondary to acute on chronic diastolic congestive heart failure secondary to A. fib with RVR Patient appears to be doing well at this time. Patient likely had an element of atelectasis and CHF. Patient has responded to diuretic therapy well. Heart catheterization showed no intervention was required. Clinical suspicion for underlying obstructive sleep apnea, so outpatient evaluation would be appropriate. 2. ST segment elevations on EKG with recent quadruple CABG secondary to CAD Unclear etiology. Patient did have some decreased flow noted through 1 of the grafts. Another possible etiology would be the increased intrathoracic pressure associated with BiPAP therapy leading to partial collapse of an immature vein graft. Patient has not required much BiPAP rescue since coming back from the intervention. 3. Probable untreated obstructive sleep apnea Patient does not carry a diagnosis of obstructive sleep apnea that I have been able to find. Patient does have a body habitus suggestive of obstructive sleep apnea. Given patient's increased volume status, significant desaturation would be expected with untreated sleep apnea. Empiric BiPAP therapy would be indicated. Happy to follow-up with patient as an outpatient for obstructive sleep apnea if requested. 4. Hyperlipidemia/morbid obesity/diabetes mellitus type 2/hypertension Complicates care, management, recovery and prognosis. Will need to watch blood sugars closely given probable endogenous steroid production. Patient has received aspirin and statin. Monitor blood pressure closely. Echo does not show any tamponade physiology. Inpatient E&M: 73383 Subs Hosp L2
--- NOTE | 2020-01-05 07:37 | PCM.PN.HOSP ---
Patient Problems: Active and Suspected Problems (Last Updated 01/04/20 @ 15:34 by Fiorella Cespedes) Atrial flutter with rapid ventricular response (Acute) Respiratory failure with hypoxia and hypercapnia (Acute) Atrial fibrillation with rapid ventricular response (Acute) S/P CABG x 4 (Acute) Reason for Visit: Follow-up on Acute CHF/A flutter with RVR/Hypoxic respiratory failure Subjective: Patient seen and examined. He denied any chest pain, dizziness. He is still slightly short of breath. Objective: Physical exam: General: Alert, Oriented x3, Cooperative, super morbidly obese, comfortable on room air HEENT: Atraumatic, PERRLA, EOMI, Normocephalic Neck: Supple Lungs: Diminished, Rales - in the lower lung zones Cardiovascular: Regular rate, Regular Rhythm, Normal S1, Normal S2, No murmurs Abdomen: Bowel Sounds Present, Soft, Non Tender, Non-Distended, No Hepato-splenomegaly Extremities: No edema Skin: No rashes Musculoskeletal: No Tenderness to Palpation of Joints or Extremities Lymphatic: No Cervical, Supraclavicular, or Inguinal Adenopathy Neurological: Cranial nerves II-XII grossly intact, Neuro grossly intact Psych/Mental Status: Normal Affect, Appropriate Vitals/I&O's: Vital Signs Temp Pulse Resp BP Pulse Ox 98.8 F 90 26 H 99/86 H 94 01/05/20 04:00 01/05/20 07:00 01/05/20 07:00 01/05/20 07:00 01/05/20 07:00 Oxygen Flow Rate (L/min) 2 Oxygen Delivery Method Room Air Weight: 149.6 kg Body Mass Index (BMI) 46.1 Finger Stick Blood Glucose 128 Intake and Output for Last 24 Hours 01/03/20 01/04/20 01/05/20 23:59 23:59 23:59 Intake Total 409.42 / 649.42 644.02 / 644.02 Output Total 1200 / 1900 900 / 900 Balance -790.58 / -1250.58 -255.98 / -255.98 Laboratory Results 01/04/20 09:13: WBC 13.6 H, RBC 3.75 L, Hgb 10.9 L, Hct 36.0 L, MCV 96.0 H, MCH 29.1, MCHC 30.3 L, RDW Std Deviation 49.2 H, RDW Coeff of [place] 14.1, Plt Count 574 H, MPV 10.2, Immature Gran % (Auto) 1.100 H, Neut % (Auto) 77.6 H, Lymph % (Auto) 11.3 L, [place] % (Auto) 7.9, Eos % (Auto) 1.4, Baso % (Auto) 0.7, Absolute Neuts (auto) 10.6 H, Absolute Lymphs (auto) 1.54, Nucleated RBC % 0 01/04/20 09:13: PT 14.7, INR 1.2, APTT 32.4 01/04/20 09:13: Sodium 136, Potassium 5.4 H, Chloride 100, Carbon Dioxide 32.0, Anion Gap 4 L, BUN 25 H, Creatinine 0.95, Estim Creat Clear Calc 86.97, Est GFR (MDRD) Af Amer 104, Est GFR (MDRD) Non-Af 86, BUN/Creatinine Ratio 26.4 H, Glucose 144 H, Calcium 8.7, Total Bilirubin 0.60, AST 86 H, ALT 104 H, Alkaline Phosphatase 109, Troponin I 0.137 H, Total Protein 7.6, Albumin 2.6 L, Globulin 5.0 H, Albumin/Globulin Ratio 0.5 L 01/04/20 09:13: Lactic Acid 1.1 01/04/20 09:13: B-Natriuretic Peptide 376.6 H 01/04/20 09:17: POC Glucose 128 H 01/04/20 09:56: Specimen Type ART, Sample Site R RADIAL, pH 7.39, Bicarbonate Actual 30.3 H, POC Total CO2 32, Base Excess 5 H, O2 Saturation 98, O2 % 35, ABG pCO2 50.1 H, ABG pO2 107 H, Gustavo Test POS, O2 Delivery Device Bi Pap, EPAP 8, IPAP 16, Blood Gas Notified Whom ED , Blood Gas Notified Time 956 01/04/20 13:30: Sodium Cancelled, Potassium Cancelled, Chloride Cancelled, Carbon Dioxide Cancelled, Anion Gap Cancelled, BUN Cancelled, Creatinine Cancelled, Estim Creat Clear Calc Cancelled, Est GFR (MDRD) Af Amer Cancelled, Est GFR (MDRD) Non-Af Cancelled, BUN/Creatinine Ratio Cancelled, Glucose Cancelled, Calcium Cancelled 01/04/20 14:20: Activated Clotting Time 180 H 01/04/20 17:23: POC Glucose 72 01/04/20 21:36: POC Glucose 140 H 01/05/20 03:45: WBC 14.2 H, RBC 3.41 L, Hgb 9.9 L, Hct 31.8 L, MCV 93.3, MCH 29.0, MCHC 31.1 L, RDW Std Deviation 48.6 H, RDW Coeff of [place] 14.2, Plt Count 465 H, MPV 10.0, Immature Gran % (Auto) 0.900, Neut % (Auto) 80.6 H, Lymph % (Auto) 9.4 L, [place] % (Auto) 7.7, Eos % (Auto) 0.9, Baso % (Auto) 0.5, Absolute Neuts (auto) 11.5 H, Absolute Lymphs (auto) 1.34, Nucleated RBC % 0 01/05/20 03:45: Sodium 136, Potassium 4.6, Chloride 98, Carbon Dioxide 33.0 H, Anion Gap 5, BUN 28 H, Creatinine 1.05, Estim Creat Clear Calc 76.28, Est GFR (MDRD) Af Amer 92, Est GFR (MDRD) Non-Af 76, BUN/Creatinine Ratio 26.7 H, Glucose 138 H, Calcium 8.7, Total Bilirubin 0.60, AST 146 H, ALT 96 H, Alkaline Phosphatase 99, Total Protein 7.0, Albumin 2.3 L, Globulin 4.7 H, Albumin/Globulin Ratio 0.5 L 01/05/20 03:45: APTT 83.7 H Current Medications Acetaminophen (Tylenol) 1,000 mg PO Q8H PRN PRN PRN Reason: Pain 1-10 or Fever Last Admin: 01/05/20 01:27 Dose: 1,000 mg Documented by: Atorvastatin Calcium (Lipitor) 80 mg PO QHS [facility] Last Admin: 01/04/20 21:38 Dose: 80 mg Documented by: Bisacodyl (Dulcolax) 10 mg PO QHS [facility] Last Admin: 01/04/20 21:37 Dose: Not Given Documented by: Dextrose (D50w Syringe) 0 gm IV X1 PRN; Protocol PRN Reason: Hypoglycemia Fluticasone Propionate (Flonase Nasal [place]) 1 spray NASAL DAILY [facility] Furosemide (Lasix) 80 mg IV BID@1000,1800 [facility] Last Admin: 01/04/20 18:21 Dose: 80 mg Documented by: Gabapentin (Neurontin) 200 mg PO DAILY [facility] Glucagon () 1 mg IM .X1 PRN PRN Reason: Hypoglycemia Guaifenesin (Mucinex) 600 mg PO BID [facility] Last Admin: 01/04/20 21:41 Dose: Not Given Documented by: Heparin Sodium (Beef Lung) (Heparin 500 Unit/5 Ml (100/Ml)) 500 unit IV UD PRN PRN Reason: HEPARIN FLUSH Heparin Sodium (Porcine) (Heparin Na) 0 unit IV UD PRN; Protocol Heparin Sodium/Dextrose () 25,000 units in 250 mls @ 19 mls/hr IV .[id number] [facility]; Protocol Last Admin: 01/05/20 06:19 Dose: 1,800 units/hr, 18 mls/hr Documented by: Sodium Chloride () 250 mls @ 15 mls/hr IV .[id number] PRN PRN Reason: Saline Flush Sodium Chloride () 250 mls @ 15 mls/hr IV .[id number] PRN PRN Reason: Additional IVPB Infusion Nitroglycerin/Dextrose () 250 mls @ 3 mls/hr CONT INF .[id number] [facility]; Protocol Last Titration: 01/04/20 20:00 Dose: 0 mcg/min, 0 mls/hr Documented by: Amiodarone HCl 360 mg/ (Dextrose) 200 mls @ 16.667 mls/hr CONT INF .Q12H [facility] Stop: 01/05/20 11:21 Last Admin: 01/05/20 06:13 Dose: 0.5 mg/min, 16.7 mls/hr Documented by: Insulin Human Lispro (Humalog Kwikpen (Bkc)) 0 unit SC ACHS [facility]; Protocol Last Admin: 01/04/20 21:37 Dose: Not Given Documented by: Labetalol HCl (Trandate) 5 mg IV X1 PRN PRN Reason: SBP > 160 prior to sheath pull Stop: 01/06/20 14:48 Magnesium Oxide (Mag-Ox 400) 400 mg PO DAILY [facility] Metoprolol Tartrate (Lopressor (Beta Chidi)) 50 mg PO TID [facility] Last Admin: 01/05/20 06:13 Dose: 50 mg Documented by: Ondansetron HCl (Zofran) 4 mg IV Q8H PRN PRN PRN Reason: NAUSEA/VOMITING Polyethylene Glycol (Miralax) 17 gm PO DAILY [facility] Senna (Senokot) 1 tablet PO BID [facility] Last Admin: 01/04/20 21:39 Dose: 1 tablet Documented by: Sodium Chloride () 10 - 40 ml IV UD PRN PRN Reason: SALINE FLUSH Temazepam (Restoril) 15 mg PO QHS PRN PRN Reason: INSOMNIA Last Admin: 01/04/20 21:37 Dose: 15 mg Documented by: STROKE Vital Signs/Narrative: Vital Signs Temp Pulse Resp BP Pulse Ox 01/05/20 07:00 90 26 H 99/86 H 94 01/05/20 06:13 93 01/05/20 06:00 81 28 H 131/95 H 96 01/05/20 05:00 78 20 H 124/84 H 96 01/05/20 04:00 98.8 F 76 20 H 130/72 H 99 Medical Necessity - Tobacco Use Smoking Status: Never smoker Tobacco Use: Non-smoker Assessment/Plan All Active Problems (Last Updated 12/03/19 @ 12:27 by Serena Wilson) Atrial flutter with rapid ventricular response (Acute) Respiratory failure with hypoxia and hypercapnia (Acute) Atrial fibrillation with rapid ventricular response (Acute) S/P CABG x 4 (Acute) Acute exacerbation of CHF (congestive heart failure) (Resolved) 1. Acute inferolateral STEMI, status post cardiac cath No PCI performed. Recent CABG (12/26/19), widely patent grafts except for small region in SVG to PDA not amendable Off heparin drip 2. Acute CHF likely secondary to A flutter with RVR On Lasix 40mg IV BID, will continue with CHF protocol 3. A flutter with RVR, rate controlled Continue on metoprolol, IV amiodarone, heparin 4. Type II DM, on insulin Will resume home insulin regimen but continue to hold metformin since patient received contrast Continue on accuchecks with ISS 5. Hyperkalemia, resolved Will resume home Losartan Repeat CBCD and CMP in am 6. Morbid obesity, BMI 46.2, probable VASILIY 7. DVT PPx- on heparin drip Inpatient E&M: 73220 Subs Hosp L2
[2020-01-05] MEDS: Furosemide 40 MG/4 ML Vial IV ×2 (09:44→17:27)
[2020-01-05] MEDS: APIXABAN 5 MG TABLET PO ×2 (09:44→20:59)
[2020-01-05] MEDS: Aspirin 81 MG TAB.CHEW PO (09:45)
[2020-01-05] MEDS: Isosorbide Mononitrate 30 MG Tablet PO (09:45)
[2020-01-05] MEDS: Gabapentin 100 MG Capsule 200 MG PO (09:45)
[2020-01-05] MEDS: Fluticasone 0.05% 1 SPRAY NASAL.SRY NASAL (09:46)
[2020-01-05] MEDS: Magnesium Oxide 400 MG Tablet PO (09:48)
--- NOTE | 2020-01-05 10:20 | CASEMGMT ---
RN CM Assessment Note Presentation: Afib, RVR. Hypoxia requiring Biapa on admission to ICU. Pt had CABG x 4 surgery on 12/26/19, returned home on 01/01/20. Intro role of CM and purpose of RN CM assessment. Demographics, PCP and Pharmacy verified. Pt returned home from [facility] 01/01/2020. States he has been short of breath on dc, but did not require home oxygen prior. Pt has HHC services through [facility] and nurse came out this week. -Heart Cath on 01/04/2020- no intervention. PCP: Dr. Josué Rodriguez Specialists: Dr. Kent, [facility]. Preferred Pharmacy: [facility], [place] Insurance: [employer] Prescription Benefit: yes. Pt will need Eliquis on dc. Savings card given and explained to patient for free trial. LNOK : , Shirin Woo Living Arrangements: Lives with in 2 story home. Since returning home from surgery, states has been assisting with any care needs. Pt states he is ambulating without assistive devices at home. Transportation: drives, but is on restriction and can drive if needed. DME: walker, cane- not using HHC: [facility]. Call to notify pt is here and they request notification on dc along with dc summary and instructions. H/P faxed to [facility]. PH: . FX: Patient DC goals: Home on discharge, resume Home Health. DC PLAN: Home, resume HHC. May need Home oxygen testing prior to dc. Pt states he has no preference as long as is In-Network @ insurance. Insurance provider lookup for DME/[employer]: Taty [facility], [facility]. Pt is agreeable to [facility]. RN CM advised to contact cm for any concerns/needs that may arise. Alok HAWKINSN RN ACM
--- NOTE | 2020-01-05 10:50 | PN.CARD_ITS ---
Subjectve: Patient seen and evaluated. Appears to be doing better this morning. Events of yesterday noted. He does not feel the atrial fibrillation. Objective: Vital Signs Temp Pulse Resp BP Pulse Ox 96.3 F L 74 35 H 119/75 98 01/05/20 08:00 01/05/20 10:00 01/05/20 10:00 01/05/20 10:00 01/05/20 10:40 Oxygen Flow Rate (L/min) 2 Oxygen Delivery Method Room Air Weight: 329 lb 12.984 oz Body Mass Index (BMI) 46.1 Finger Stick Blood Glucose 128 Intake and Output for Last 24 Hours 01/03/20 01/04/20 01/05/20 23:59 23:59 23:59 Intake Total 409.42 / 649.42 884.02 / 884.02 Output Total 1200 / 1900 900 / 900 Balance -790.58 / -1250.58 -15.98 / -15.98 General: Awake, Alert, Oriented x 3 HEENT: PERRL, EOMI, Sclera Non Icteric Neck: Supple, Good ROM, No Lymph Node Enlargement Lungs: Diminished Sam Bases Cardiovascular: Irregular Rhythm, Normal S1, Normal S2, No Murmurs, No Rubs, No Gallops Vascular: No Carotid Bruits, Normal Femoral Pulses, Normal Radial Pulses, Normal Dorsalis Pedal Pulse, Normal Posterior Tibial Pulses Abdomen: Bowel Sounds Present, Soft, Non Tender, No HSM, No Organomegaly Extremities: No Cyanosis, No Clubbing, No edema Musculoskeletal: No Erythema Skin: No Rashes Neurological: No Focal Motor or Sensory Deficit 01/04/20 13:30: Sodium Cancelled, Potassium Cancelled, Chloride Cancelled, Carbon Dioxide Cancelled, Anion Gap Cancelled, BUN Cancelled, Creatinine Cancelled, Est GFR (MDRD) Af Amer Cancelled, Est GFR (MDRD) Non-Af Cancelled, BUN/Creatinine Ratio Cancelled, Glucose Cancelled, Calcium Cancelled 01/05/20 03:45: WBC 14.2 H, RBC 3.41 L, Hgb 9.9 L, Hct 31.8 L, MCV 93.3, MCH 29.0, MCHC 31.1 L, Plt Count 465 H, MPV 10.0, Immature Gran % (Auto) 0.900, Neut % (Auto) 80.6 H, Lymph % (Auto) 9.4 L, [place] % (Auto) 7.7, Eos % (Auto) 0.9, Baso % (Auto) 0.5, Absolute Neuts (auto) 11.5 H, Nucleated RBC % 0 01/05/20 03:45: Sodium 136, Potassium 4.6, Chloride 98, Carbon Dioxide 33.0 H, Anion Gap 5, BUN 28 H, Creatinine 1.05, Est GFR (MDRD) Af Amer 92, Est GFR (MDRD) Non-Af 76, BUN/Creatinine Ratio 26.7 H, Glucose 138 H, Calcium 8.7, Total Bilirubin 0.60 01/05/20 03:45: APTT 83.7 H Rhythm: EKG: ECHO: Stress Test: Cardiac Cath: PCI: CT Surgery: Holter monitor: EPS: PPM: CXR: Chest CT Scan: Medical Necessity - Tobacco Use Smoking Status: Never smoker Tobacco Use: Non-smoker Assessment/Plan 1. Atrial fibrillation: The patient presents with new onset atrial fibrillation of unknown duration with rapid ventricular response with associated respiratory distress, anasarca, and possible bilateral pleural effusions postop day #9 from multivessel bypass surgery at [facility]. * His ejection fraction is noted to be preserved. His rate is better controlled at this time * Would recommend continuing the IV amiodarone at this time * Will start anticoagulation with Eliquis * Will continue beta-ronen * Will hope to wean of IV amiodarone in the next 24 hours * If patient does not convert within 3 to 4 weeks will consider DC cardioversion. * IV heparin can be discontinued 2. Coronary artery disease: The patient did develop EKG changes yesterday suggestive of an inferior myocardial infarction. An urgent cardiac catheterization demonstrated patency of the saphenous vein graft to the right coronary artery and patency of the saphenous vein graft to the diagonal vessel and obtuse marginal vessel. The [place] right coronary artery was subtotally occluded. It was determined to continue with aggressive medical therapy. * No intervention was performed * Anticoagulation will be continued * Aspirin will be resumed. 3. Fluid overload: Patient has evidence of anasarca with fluid overload and evidence of probable bilateral pleural effusions. Recommend starting him on Lasix 40 mg IV twice daily in an attempt to extract between 1.5 and 2 L of net negative fluid per day. Recommend keeping his potassium above 4.0 and magnesium of 2.0. 4. Hyperlipidemia: Continue statin based medications with Lipitor 80 mg p.o. nightly.
[2020-01-05] MEDS: Insulin Lispro 100 UNIT/ML INSULN.PEN SC ×3 (11:56→21:00)
[2020-01-05] MEDS: Losartan Potassium 100 MG Tablet PO (13:02)
[2020-01-05] MEDS: oxyCODONE 5 MG Tablet PO ×2 (13:02→20:11)
[2020-01-05] MEDS: Ipratropium/Albuterol Sulfate 3 ML AMPUL.NEB INHALATION ×2 (14:53→19:59)
[2020-01-05 16:40] LABS: Bedside Glucose 231 mg/dL (70-110)
[2020-01-05] MEDS: 0.9% Saline Lock 10 ML Syringe IV (17:25)
[2020-01-05] MEDS: Insulin Lispro 100 UNIT/ML INSULN.PEN 22 UNIT SC (17:26)
[2020-01-05] MEDS: Atorvastatin Calcium 80 MG Tablet PO (21:02)
[2020-01-05] MEDS: Temazepam 15 MG Capsule PO (21:06)
[2020-01-05 21:10] LABS: Bedside Glucose 176 mg/dL (70-110)
[2020-01-06] VITALS (29 sets, daily range): BP systolic 98–159; BP diastolic 52–100; PULSE 65–101; RESP 16–32; TEMP 36.3–36.9; O2SAT 93–100
--- NOTE | 2020-01-06 01:21 | CPS ---
pt declined use of bipap
[2020-01-06] MEDS: Acetaminophen 500 MG Tablet 1000 MG PO ×2 (03:18→15:58)
[2020-01-06] MEDS: Amiodarone 360 MG in Dextrose 5% Viaflo Bag 192.8 ML 16.7 MG CONT INF (05:11)
[2020-01-06 06:03] LABS: Absolute Lymphocyte Count 1.21 X10^3/uL (0.83-4.51); Absolute Neutrophil Count 10.9 X10^3/uL (2.0-7.7); Basophil# 0.09 X10^3/uL; Basophil% 0.7 % (0-1); Eosinophils% 1.5 % (0-5); Hematocrit 33.4 % (40-54); Hemoglobin 9.6 g/dL (13.0-16.5); Lymphocyte # 1.21 X10^3/ul (4.0); Mean Corp Hgb Conc 28.7 g/dL (32-36); Mean Corpuscular Hgb 28.3 pg (27.0-32.0); Mean Corpuscular Volume 98.5 fL (80-94); Mean Platelet Vol. 10.1 fl (6.2-12.0); Monocyte# 1.02 X10^3/uL; Monocyte% 7.5 % (0-10); NRBC Flagged by Analyzer 0 % (0-5); Neutrophil # 10.87 X10^3/uL (2.7-7.7); Neutrophil % 80.4 % (47-70); Platelet Count 513 K/mm3 (150-450); RBC Distribution Width CV 14.1 % (11.6-14.6); RBC Distribution Width SD 50.7 fl (35.1-43.9); Red Blood Count 3.39 M/mm3 (4.6-6.2); White Blood Count 13.5 K/mm3 (4.4-11.0)
[2020-01-06 06:39] LABS: ALB/GLOB Ratio 0.5 RATIO (0.9-2.4); AST(SGOT) 108 U/L (15-37); Alanine Aminotransfer ALT/SGPT 103 U/L (16-61); Albumin, Serum 2.2 g/dL (3.2-5.0); Alkaline Phosphatase 100 U/L (45-117); Anion Gap 8 (5-15); BUN 41 mg/dL (7-18); BUN/Creat Ratio 30.8 RATIO (10-20); Calcium,Total 8.3 mg/dL (8.5-10.1); Chloride 101 mmol/L (98-107); Creatinine, Serum 1.33 mg/dL (0.70-1.30); EST Glomerular Filtration Rate 58 mL/min (>60); Est Glom Filt Rate - Afr Amer 70 mL/min (>60); Estimated Creatinine Clearance 60.22 ml/min; Globulin 4.6 g/dL (2.2-4.2); Glucose 100 mg/dL (74-106); Potassium 4.7 mmol/L (3.5-5.1); Protein, Total 6.8 g/dL (6.4-8.2); Sodium Level 134 mmol/L (136-145)
[2020-01-06] MEDS: Ipratropium/Albuterol Sulfate 3 ML AMPUL.NEB INHALATION ×4 (06:45→19:01)
--- NOTE | 2020-01-06 07:52 | CPS ---
PT DECREASED TO 3 LPM...100%. NURSE AWARE OF CHANGE
[2020-01-06] MEDS: Insulin Lispro 100 UNIT/ML INSULN.PEN 22 UNIT SC ×3 (07:55→16:14)
[2020-01-06] MEDS: Loratadine 10 MG Tablet PO (08:02)
[2020-01-06] MEDS: Losartan Potassium 100 MG Tablet PO (08:03)
[2020-01-06] MEDS: Gabapentin 100 MG Capsule 200 MG PO (08:03)
[2020-01-06] MEDS: Magnesium Oxide 400 MG Tablet PO (08:03)
[2020-01-06] MEDS: APIXABAN 5 MG TABLET PO ×2 (08:03→21:59)
[2020-01-06] MEDS: Senna Tablet 1 TABLET PO ×2 (08:03→22:00)
[2020-01-06] MEDS: Fluticasone 0.05% 1 SPRAY NASAL.SRY NASAL (08:04)
[2020-01-06] MEDS: Furosemide 20 MG/2 ML VIAL IV (08:04)
[2020-01-06] MEDS: Isosorbide Mononitrate 30 MG Tablet PO (08:05)
[2020-01-06 08:15] LABS: Bedside Glucose 106 mg/dL (70-110)
--- NOTE | 2020-01-06 09:29 | PCM.PN.CARD ---
Subjectve: Patient continues to improve. Still has bilateral lower extremity edema. Breathing is much better. Atrial fibrillation is better controlled with IV amiodarone drip. Patient is been on IV amiodarone for 2 days. Telemetry shows atrial fibrillation/atrial flutter with controlled ventricular response. Objective: Vital Signs Temp Pulse Resp BP Pulse Ox 98.4 F 73 24 H 118/83 H 96 01/06/20 08:00 01/06/20 08:00 01/06/20 08:00 01/06/20 08:00 01/06/20 08:00 Oxygen Flow Rate (L/min) 3 Oxygen Delivery Method Nasal Cannula Weight: 329 lb 12.984 oz Body Mass Index (BMI) 46.1 Finger Stick Blood Glucose 128 Intake and Output for Last 24 Hours 01/04/20 01/05/20 01/06/20 23:59 23:59 23:59 Intake Total 409.42 / 649.42 1680.90 / 1697.60 150.30 / 150.30 Output Total 1200 / 1900 1150 / 1150 250 / 250 Balance -790.58 / -1250.58 530.90 / 547.60 -99.70 / -99.70 General: Awake, Alert, Oriented x 3 HEENT: PERRL, EOMI, Sclera Non Icteric Neck: Supple, Good ROM, No Lymph Node Enlargement Lungs: Clear to auscultation Cardiovascular: Irregular Rhythm, Normal S1, Normal S2, No Murmurs, No Rubs, No Gallops Vascular: No Carotid Bruits, Normal Femoral Pulses, Normal Radial Pulses, Normal Dorsalis Pedal Pulse, Normal Posterior Tibial Pulses Abdomen: Bowel Sounds Present, Soft, Non Tender, No HSM, No Organomegaly Extremities: No Cyanosis, No Clubbing, Bilateral Edema +1 Neurological: No Focal Motor or Sensory Deficit 01/06/20 05:32: WBC 13.5 H, RBC 3.39 L, Hgb 9.6 L, Hct 33.4 L, MCV 98.5 H D, MCH 28.3, MCHC 28.7 L D, Plt Count 513 H, MPV 10.1, Immature Gran % (Auto) 0.900, Neut % (Auto) 80.4 H, Lymph % (Auto) 9.0 L, [place] % (Auto) 7.5, Eos % (Auto) 1.5, Baso % (Auto) 0.7, Absolute Neuts (auto) 10.9 H, Nucleated RBC % 0 01/06/20 05:32: Sodium 134 L, Potassium 4.7, Chloride 101, Carbon Dioxide 25.0, Anion Gap 8, BUN 41 H, Creatinine 1.33 H, Est GFR (MDRD) Af Amer 70, Est GFR (MDRD) Non-Af 58 L, BUN/Creatinine Ratio 30.8 H, Glucose 100, Calcium 8.3 L, Total Bilirubin 0.40 Rhythm: EKG: ECHO: Stress Test: Cardiac Cath: PCI: CT Surgery: Holter monitor: EPS: PPM: CXR: Chest CT Scan: Medical Necessity - Tobacco Use Smoking Status: Never smoker Tobacco Use: Non-smoker Assessment/Plan 1. Atrial fibrillation: The patient presents with new onset atrial fibrillation of unknown duration with rapid ventricular response with associated respiratory distress, anasarca, and possible bilateral pleural effusions on postop day #9 from multivessel bypass surgery at [facility]. Stat limited bedside echo demonstrates intact LV function with an EF of 65%, no significant RV enlargement noted although images were suboptimal, no evidence of pericardial effusion. After the patient was admitted initially he developed left upper chest pain with associated inferior ST segment elevation. He was brought emergently to the [facility] under code STEMI protocol, and underwent emergent left heart catheterization with graft angiography. This demonstrated widely patent grafts except for a distal anastomotic stenosis of the saphenous vein graft to the PDA. Patient had REID-3 flow, and had no further pain, and his EKG had normalized. No PCI was performed given the newness of the patient's bypass surgery. His symptoms completely resolved and have not recurred. At this point I will continue the patient on baby aspirin, Eliquis. I do not believe he requires Plavix or Brilinta going forward. Should the patient have recurrent anginal symptoms, I have a low threshold for elective angioplasty and stenting of the distal saphenous vein graft to the PDA for symptomatic relief but would only do so after at least 2 to 3 months of healing. 2. Coronary artery disease: The patient denies any chest pain symptoms, and his EKG other than atrial fibrillation has no significant dynamic changes. He is recently undergone multivessel bypass surgery on 12/26/2019. The meantime will continue baby aspirin, metoprolol 50 mg 3 times daily, and losartan 50 mg a day. Echocardiogram dated 01/04/2020 is as follows: Normal LV size. Mild concentric left ventricular hypertrophy. Left ventricular systolic function is normal. The estimated ejection fraction is 65 %. The left atrium is moderately enlarged. Stage 2 diastolic dysfunction. 3. Fluid overload: Patient has evidence of anasarca with fluid overload and evidence of probable bilateral pleural effusions. Patient still has significant edema, recommend increasing Lasix to 40 mg IV twice daily till he has met his dry weight.. Recommend keeping his potassium above 4.0 and magnesium of 2.0. 4. Hyperlipidemia: Continue statin based medications with Lipitor 80 mg p.o. nightly. 5. Atrial fibrillation: The patient continues to have atrial fibrillation but it is better controlled on IV amiodarone. He has been on IV amiodarone for 48 hours. Recommend switching him to p.o. amiodarone 400 mg p.o. twice daily for 3 days followed by 200 mg a day. Assuming the patient does not chemically cardiovert on his own, he will be set up for elective DC cardioversion in 3 to 4 weeks time. 6. Thank you very much for the opportunity to participate in the cardiac care of your patient. Patient may follow-up with Dr. Rondon as an outpatient. Inpatient E&M: [id number] [facility] Hosp L2
[2020-01-06] MEDS: oxyCODONE 5 MG Tablet PO ×2 (10:15→22:02)
[2020-01-06] MEDS: guaiFENesin 600 MG Tablet PO ×2 (10:15→22:02)
[2020-01-06] MEDS: Furosemide 40 MG/4 ML Vial IV ×2 (10:16→17:00)
[2020-01-06] MEDS: Insulin Lispro 100 UNIT/ML INSULN.PEN SC (11:09)
[2020-01-06] MEDS: Amiodarone 200 MG Tablet 400 MG PO ×2 (11:10→21:59)
[2020-01-06 11:21] LABS: Bedside Glucose 163 mg/dL (70-110)
--- NOTE | 2020-01-06 11:47 | CPS ---
PT DECREASED TO 2 LPM....NURSE AWARE
--- NOTE | 2020-01-06 14:36 | PN_ITS ---
Patient Problems: Active and Suspected Problems (Last Updated 01/04/20 @ 15:34 by Fiorella Cespedes) Atrial flutter with rapid ventricular response (Acute) Respiratory failure with hypoxia and hypercapnia (Acute) Atrial fibrillation with rapid ventricular response (Acute) S/P CABG x 4 (Acute) Reason for Visit: Follow-up on Acute CHF/A flutter with RVR/Hypoxic respiratory failure Subjective: Patient was seen and examined. He feels improved. Slightly short of breath. HR is not controlled. Denies chest pain, dizziness, palpitations. Objective: Physical exam: General: Alert, Oriented x3, Cooperative, super morbidly obese, comfortable on room air HEENT: Atraumatic, PERRLA, EOMI, Normocephalic Neck: Supple Lungs: Diminished, Rales - in the lower lung zones Cardiovascular: Regular rate, Regular Rhythm, Normal S1, Normal S2, No murmurs Abdomen: Bowel Sounds Present, Soft, Non Tender, Non-Distended, No Hepato- splenomegaly Extremities: No edema Skin: No rashes Musculoskeletal: No Tenderness to Palpation of Joints or Extremities Lymphatic: No Cervical, Supraclavicular, or Inguinal Adenopathy Neurological: Cranial nerves II-XII grossly intact, Neuro grossly intact Psych/Mental Status: Normal Affect, Appropriate Vitals/I&O's: Vital Signs Temp Pulse Resp BP Pulse Ox 98.0 F 85 23 H 100/60 96 01/06/20 14:00 01/06/20 14:00 01/06/20 14:00 01/06/20 14:00 01/06/20 14:00 Oxygen Flow Rate (L/min) 2 Oxygen Delivery Method Nasal Cannula Weight: 149.6 kg Body Mass Index (BMI) 46.1 Finger Stick Blood Glucose 128 Intake and Output for Last 24 Hours 01/04/20 01/05/20 01/06/20 23:59 23:59 23:59 Intake Total 409.42 / 649.42 1680.90 / 1697.60 713.80 / 713.80 Output Total 1200 / 1900 1150 / 1150 735 / 735 Balance -790.58 / -1250.58 530.90 / 547.60 -21.20 / -21.20 Laboratory Results 01/05/20 16:36: POC Glucose 231 H 01/05/20 20:55: POC Glucose 176 H 01/06/20 05:32: WBC 13.5 H, RBC 3.39 L, Hgb 9.6 L, Hct 33.4 L, MCV 98.5 H D, MCH 28.3, MCHC 28.7 L D, RDW Std Deviation 50.7 H, RDW Coeff of [place] 14.1, Plt Count 513 H, MPV 10.1, Immature Gran % (Auto) 0.900, Neut % (Auto) 80.4 H, Lymph % (Auto) 9.0 L, [place] % (Auto) 7.5, Eos % (Auto) 1.5, Baso % (Auto) 0.7, Absolute Neuts (auto) 10.9 H, Absolute Lymphs (auto) 1.21, Nucleated RBC % 0 01/06/20 05:32: Sodium 134 L, Potassium 4.7, Chloride 101, Carbon Dioxide 25.0, Anion Gap 8, BUN 41 H, Creatinine 1.33 H, Estim Creat Clear Calc 60.22, Est GFR (MDRD) Af Amer 70, Est GFR (MDRD) Non-Af 58 L, BUN/Creatinine Ratio 30.8 H, Glucose 100, Calcium 8.3 L, Total Bilirubin 0.40, AST 108 H, ALT 103 H, Alkaline Phosphatase 100, Total Protein 6.8, Albumin 2.2 L, Globulin 4.6 H, Albumin/Globulin Ratio 0.5 L 01/06/20 07:45: POC Glucose 106 01/06/20 11:08: POC Glucose 163 H Current Medications Acarbose (Precose) 100 mg PO TIDCM [facility] Last Admin: 01/06/20 13:20 Dose: Not Given Documented by: Acetaminophen (Tylenol) 1,000 mg PO Q8H PRN PRN PRN Reason: Pain 1-10 or Fever Last Admin: 01/06/20 03:18 Dose: 1,000 mg Documented by: Albuterol/Ipratropium (Duoneb) 3 ml INHALATION Q4HWA.RT [facility] Last Admin: 01/06/20 10:56 Dose: 3 ml Documented by: Amiodarone HCl (Cordarone) 400 mg PO BID [facility] Stop: 01/09/20 10:00 Last Admin: 01/06/20 11:10 Dose: 400 mg Documented by: Apixaban (Eliquis) 5 mg PO BID [facility] Last Admin: 01/06/20 08:03 Dose: 5 mg Documented by: Atorvastatin Calcium (Lipitor) 80 mg PO QHS [facility] Last Admin: 01/05/20 21:02 Dose: 80 mg Documented by: Bisacodyl (Dulcolax) 10 mg PO QHS [facility] Last Admin: 01/05/20 20:09 Dose: Not Given Documented by: Dextrose (D50w Syringe) 0 gm IV X1 PRN; Protocol PRN Reason: Hypoglycemia Fluticasone Propionate (Flonase Nasal [place]) 1 spray NASAL DAILY [facility] Last Admin: 01/06/20 08:04 Dose: 1 spray Documented by: Furosemide (Lasix) 40 mg IV BID@1000,1800 [facility] Last Admin: 01/06/20 10:16 Dose: 20 mg Documented by: Gabapentin (Neurontin) 200 mg PO DAILY [facility] Last Admin: 01/06/20 08:03 Dose: 200 mg Documented by: Glucagon () 1 mg IM .X1 PRN PRN Reason: Hypoglycemia Guaifenesin (Mucinex) 600 mg PO BID [facility] Last Admin: 01/06/20 10:15 Dose: 600 mg Documented by: Sodium Chloride () 250 mls @ 15 mls/hr IV .[id number] PRN PRN Reason: Saline Flush Sodium Chloride () 250 mls @ 15 mls/hr IV .[id number] PRN PRN Reason: Additional IVPB Infusion Amiodarone HCl 360 mg/ (Dextrose) 200 mls @ 16.667 mls/hr CONT INF .Q12H [facility] Last Infusion: 01/06/20 13:00 Dose: 0.5 mg/min, 16.7 mls/hr Documented by: Insulin Glargine (Lantus (Bkc)) 45 units SC BIDAC [facility] Last Admin: 01/06/20 07:55 Dose: 45 u Documented by: Insulin Human Lispro (Humalog Kwikpen (Bkc)) 0 unit SC ACHS [facility]; Protocol Last Admin: 01/06/20 11:09 Dose: 1 u Documented by: Insulin Human Lispro (Humalog Kwikpen (Bkc)) 22 unit SC TIDCM [facility] Last Admin: 01/06/20 11:09 Dose: 22 u Documented by: Isosorbide Mononitrate (Imdur) 30 mg PO DAILY [facility] Last Admin: 01/06/20 08:05 Dose: 30 mg Documented by: Labetalol HCl (Trandate) 5 mg IV X1 PRN PRN Reason: SBP > 160 prior to sheath pull Stop: 01/06/20 14:48 Loratadine (Claritin) 10 mg PO DAILY [facility] Last Admin: 01/06/20 08:02 Dose: 10 mg Documented by: Losartan Potassium (Cozaar) 100 mg PO DAILY [facility] Last Admin: 01/06/20 08:03 Dose: 100 mg Documented by: Magnesium Oxide (Mag-Ox 400) 400 mg PO DAILY [facility] Last Admin: 01/06/20 08:03 Dose: 400 mg Documented by: Metoprolol Tartrate (Lopressor (Beta Chidi)) 50 mg PO TID [facility] Last Admin: 01/06/20 05:11 Dose: Not Given Documented by: Ondansetron HCl (Zofran) 4 mg IV Q8H PRN PRN PRN Reason: NAUSEA/VOMITING Oxycodone HCl (Oxyir) 5 mg PO Q6H PRN PRN PRN Reason: Pain Score 1-10/10 Last Admin: 01/06/20 10:15 Dose: 5 mg Documented by: Polyethylene Glycol (Miralax) 17 gm PO DAILY [facility] Last Admin: 01/06/20 08:03 Dose: Not Given Documented by: Senna (Senokot) 1 tablet PO BID [facility] Last Admin: 01/06/20 08:03 Dose: 1 tablet Documented by: Sodium Chloride () 10 - 40 ml IV UD PRN PRN Reason: SALINE FLUSH Last Admin: 01/05/20 17:25 Dose: 10 ml Documented by: Temazepam (Restoril) 15 mg PO QHS PRN PRN Reason: INSOMNIA Last Admin: 01/05/20 21:06 Dose: 15 mg Documented by: STROKE Vital Signs/Narrative: Vital Signs Temp Pulse Resp BP Pulse Ox 01/06/20 14:00 98.0 F 85 23 H 100/60 96 01/06/20 13:00 100 29 H 98/61 93 01/06/20 12:00 80 21 H 111/66 95 01/06/20 11:00 84 32 H 141/100 H 96 01/06/20 10:56 101 H 18 98 Medical Necessity - Tobacco Use Smoking Status: Never smoker Tobacco Use: Non-smoker Assessment/Plan All Active Problems (Last Updated 12/03/19 @ 12:27 by Serena Wilson) Atrial flutter with rapid ventricular response (Acute) Respiratory failure with hypoxia and hypercapnia (Acute) Atrial fibrillation with rapid ventricular response (Acute) S/P CABG x 4 (Acute) Acute exacerbation of CHF (congestive heart failure) (Resolved) 1. Acute inferolateral STEMI, status post cardiac cath No PCI performed. Recent CABG (12/26/19); widely patent grafts except for small region in SVG to PDA not amendable Off heparin drip 2. Acute CHF likely secondary to A.flutter with RVR, improving Slight increase in Cr, will decrease to Lasix 20mg IV BID, Will continue with CHF protocol 3. A flutter with RVR, on metoprolol, IV amiodarone, Eliquis Being switched to po amiodarone by cardiology 4. Hypertensive emergency, resolved BP is better controlled on Losartan, metoprolol Will continue to monitor 5. Type II DM, on insulin BS is controlled, continue on home insulin regimen Will resume metformin tomorrow Continue on accuchecks with ISS 6. Hyperkalemia, resolved 7. Morbid obesity, BMI 46.2, probable VASILIY 8. DVT PPx- on eliquis Inpatient E&M: [id number] Subs Hosp L2
[2020-01-06 16:21] LABS: Bedside Glucose 125 mg/dL (70-110)
[2020-01-06] MEDS: Atorvastatin Calcium 80 MG Tablet PO (22:01)
[2020-01-06] MEDS: Temazepam 15 MG Capsule PO (22:02)
[2020-01-06] MEDS: Metoprolol Tartrate 50 MG Tablet PO (22:02)
[2020-01-07] VITALS (9 sets, daily range): BP systolic 105–125; BP diastolic 52–72; PULSE 65–73; RESP 14–23; TEMP 36.4–36.9; O2SAT 86–97
[2020-01-07 00:16] LABS: Bedside Glucose 78 mg/dL (70-110)
[2020-01-07] MEDS: Acetaminophen 500 MG Tablet 1000 MG PO ×2 (02:14→10:30)
[2020-01-07] MEDS: Metoprolol Tartrate 50 MG Tablet PO ×2 (05:10→13:51)
[2020-01-07] MEDS: Ipratropium/Albuterol Sulfate 3 ML AMPUL.NEB INHALATION ×2 (07:04→11:12)
[2020-01-07] MEDS: Insulin Lispro 100 UNIT/ML INSULN.PEN 22 UNIT SC ×2 (08:01→11:46)
[2020-01-07] MEDS: Amiodarone 200 MG Tablet 400 MG PO (08:03)
[2020-01-07] MEDS: Loratadine 10 MG Tablet PO (08:03)
[2020-01-07] MEDS: Losartan Potassium 100 MG Tablet PO (08:04)
[2020-01-07] MEDS: Fluticasone 0.05% 1 SPRAY NASAL.SRY NASAL (08:04)
[2020-01-07] MEDS: APIXABAN 5 MG TABLET PO (08:04)
[2020-01-07] MEDS: Isosorbide Mononitrate 30 MG Tablet PO (08:05)
[2020-01-07] MEDS: Furosemide 40 MG/4 ML Vial IV (08:05)
[2020-01-07] MEDS: Magnesium Oxide 400 MG Tablet PO (08:06)
[2020-01-07] MEDS: guaiFENesin 600 MG Tablet PO (08:06)
[2020-01-07] MEDS: Gabapentin 100 MG Capsule 200 MG PO (08:07)
[2020-01-07] MEDS: Senna Tablet 1 TABLET PO (08:07)
[2020-01-07 08:42] LABS: Absolute Lymphocyte Count 1.06 X10^3/uL (0.83-4.51); Absolute Neutrophil Count 9.8 X10^3/uL (2.0-7.7); Basophil# 0.07 X10^3/uL; Basophil% 0.6 % (0-1); Eosinophil# 0.22 X10^3/uL; Eosinophils% 1.8 % (0-5); Hematocrit 32.2 % (40-54); Hemoglobin 9.4 g/dL (13.0-16.5); Lymphocyte # 1.06 X10^3/ul (4.0); Lymphocyte % 8.7 % (19-41); Mean Corp Hgb Conc 29.2 g/dL (32-36); Mean Corpuscular Hgb 28.3 pg (27.0-32.0); Mean Platelet Vol. 10.1 fl (6.2-12.0); Monocyte# 0.89 X10^3/uL; Monocyte% 7.3 % (0-10); NRBC Flagged by Analyzer 0 % (0-5); Neutrophil # 9.81 X10^3/uL (2.7-7.7); Neutrophil % 80.9 % (47-70); Platelet Count 585 K/mm3 (150-450); RBC Distribution Width CV 14.2 % (11.6-14.6); RBC Distribution Width SD 49.5 fl (35.1-43.9); Red Blood Count 3.32 M/mm3 (4.6-6.2); White Blood Count 12.1 K/mm3 (4.4-11.0)
[2020-01-07 09:11] LABS: Bedside Glucose 113 mg/dL (70-110)
[2020-01-07 09:11] LABS: ALB/GLOB Ratio 0.5 RATIO (0.9-2.4); AST(SGOT) 85 U/L (15-37); Alanine Aminotransfer ALT/SGPT 101 U/L (16-61); Albumin, Serum 2.3 g/dL (3.2-5.0); Alkaline Phosphatase 98 U/L (45-117); Anion Gap 3 (5-15); BUN 41 mg/dL (7-18); Calcium,Total 8.5 mg/dL (8.5-10.1); Chloride 101 mmol/L (98-107); Creatinine, Serum 1.28 mg/dL (0.70-1.30); EST Glomerular Filtration Rate 61 mL/min (>60); Est Glom Filt Rate - Afr Amer 73 mL/min (>60); Estimated Creatinine Clearance 62.58 ml/min; Globulin 4.7 g/dL (2.2-4.2); Glucose 111 mg/dL (74-106); Potassium 4.7 mmol/L (3.5-5.1); Sodium Level 136 mmol/L (136-145)
--- NOTE | 2020-01-07 09:41 | PCM.PN.HOSP ---
Patient Problems: Active and Suspected Problems (Last Updated 01/04/20 @ 15:34 by Fiorella Cespedes) Atrial flutter with rapid ventricular response (Acute) Respiratory failure with hypoxia and hypercapnia (Acute) Atrial fibrillation with rapid ventricular response (Acute) S/P CABG x 4 (Acute) Reason for Visit: Follow-up on Acute CHF/A flutter with RVR/Hypoxic respiratory failure Subjective: Patient seen and examined. He feels improved. Denies chest pain, dizziness, SOB. Objective: Physical exam: General: Alert, Oriented x3, Cooperative, super morbidly obese, comfortable on room air HEENT: Atraumatic, PERRLA, EOMI, Normocephalic Neck: Supple Lungs: Diminished, Rales - in the lower lung zones Cardiovascular: Regular rate, Regular Rhythm, Normal S1, Normal S2, No murmurs Abdomen: Bowel Sounds Present, Soft, Non Tender, Non-Distended, No Hepato-splenomegaly Extremities: No edema Skin: No rashes Musculoskeletal: No Tenderness to Palpation of Joints or Extremities Lymphatic: No Cervical, Supraclavicular, or Inguinal Adenopathy Neurological: Cranial nerves II-XII grossly intact, Neuro grossly intact Psych/Mental Status: Normal Affect, Appropriate Vitals/I&O's: Vital Signs Temp Pulse Resp BP Pulse Ox 97.5 F L 65 18 125/70 H 95 01/07/20 04:02 01/07/20 07:04 01/07/20 07:04 01/07/20 04:02 01/07/20 07:04 Oxygen Flow Rate (L/min) 2 Oxygen Delivery Method Room Air Weight: 149.6 kg Body Mass Index (BMI) 46.1 Finger Stick Blood Glucose 128 Intake and Output for Last 24 Hours 01/05/20 01/06/20 01/07/20 23:59 23:59 23:59 Intake Total 1680.90 / 1697.60 1276.41 / 1276.41 200 / 200 Output Total 1150 / 1150 1185 / 1185 Balance 530.90 / 547.60 91.41 / 91.41 200 / 200 Laboratory Results 01/06/20 11:08: POC Glucose 163 H 01/06/20 15:58: POC Glucose 125 H 01/06/20 21:57: POC Glucose 78 01/07/20 07:57: POC Glucose 113 H 01/07/20 08:23: WBC 12.1 H, RBC 3.32 L, Hgb 9.4 L, Hct 32.2 L, MCV 97.0 H, MCH 28.3, MCHC 29.2 L, RDW Std Deviation 49.5 H, RDW Coeff of [place] 14.2, Plt Count 585 H, MPV 10.1, Immature Gran % (Auto) 0.700, Neut % (Auto) 80.9 H, Lymph % (Auto) 8.7 L, [place] % (Auto) 7.3, Eos % (Auto) 1.8, Baso % (Auto) 0.6, Absolute Neuts (auto) 9.8 H, Absolute Lymphs (auto) 1.06, Nucleated RBC % 0 01/07/20 08:23: Sodium 136, Potassium 4.7, Chloride 101, Carbon Dioxide 32.0, Anion Gap 3 L, BUN 41 H, Creatinine 1.28, Estim Creat Clear Calc 62.58, Est GFR (MDRD) Af Amer 73, Est GFR (MDRD) Non-Af 61, BUN/Creatinine Ratio 32.0 H, Glucose 111 H, Calcium 8.5, Total Bilirubin 0.40, AST 85 H, ALT 101 H, Alkaline Phosphatase 98, Total Protein 7.0, Albumin 2.3 L, Globulin 4.7 H, Albumin/Globulin Ratio 0.5 L Current Medications Acarbose (Precose) 100 mg PO TIDCM [facility] Last Admin: 01/07/20 08:13 Dose: Not Given Documented by: Acetaminophen (Tylenol) 1,000 mg PO Q8H PRN PRN PRN Reason: Pain 1-10 or Fever Last Admin: 01/07/20 02:14 Dose: 1,000 mg Documented by: Albuterol/Ipratropium (Duoneb) 3 ml INHALATION Q4HWA.RT [facility] Last Admin: 01/07/20 07:04 Dose: 3 ml Documented by: Amiodarone HCl (Cordarone) 400 mg PO BID [facility] Stop: 01/09/20 10:00 Last Admin: 01/07/20 08:03 Dose: 400 mg Documented by: Apixaban (Eliquis) 5 mg PO BID [facility] Last Admin: 01/07/20 08:04 Dose: 5 mg Documented by: Atorvastatin Calcium (Lipitor) 80 mg PO QHS [facility] Last Admin: 01/06/20 22:01 Dose: 80 mg Documented by: Bisacodyl (Dulcolax) 10 mg PO QHS [facility] Last Admin: 01/06/20 21:53 Dose: Not Given Documented by: Dextrose (D50w Syringe) 0 gm IV X1 PRN; Protocol PRN Reason: Hypoglycemia Fluticasone Propionate (Flonase Nasal [place]) 1 spray NASAL DAILY [facility] Last Admin: 01/07/20 08:04 Dose: 1 spray Documented by: Furosemide (Lasix) 40 mg IV BID@1000,1800 [facility] Last Admin: 01/07/20 08:05 Dose: 40 mg Documented by: Gabapentin (Neurontin) 200 mg PO DAILY [facility] Last Admin: 01/07/20 08:07 Dose: 200 mg Documented by: Glucagon () 1 mg IM .X1 PRN PRN Reason: Hypoglycemia Guaifenesin (Mucinex) 600 mg PO BID [facility] Last Admin: 01/07/20 08:06 Dose: 600 mg Documented by: Sodium Chloride () 250 mls @ 15 mls/hr IV .[id number] PRN PRN Reason: Saline Flush Sodium Chloride () 250 mls @ 15 mls/hr IV .[id number] PRN PRN Reason: Additional IVPB Infusion Insulin Glargine (Lantus (Bkc)) 45 units SC BIDAC [facility] Last Admin: 01/07/20 08:01 Dose: 45 u Documented by: Insulin Human Lispro (Humalog Kwikpen (Bkc)) 0 unit SC ACHS [facility]; Protocol Last Admin: 01/07/20 07:59 Dose: Not Given Documented by: Insulin Human Lispro (Humalog Kwikpen (Bkc)) 22 unit SC TIDCM [facility] Last Admin: 01/07/20 08:01 Dose: 22 u Documented by: Isosorbide Mononitrate (Imdur) 30 mg PO DAILY [facility] Last Admin: 01/07/20 08:05 Dose: 30 mg Documented by: Loratadine (Claritin) 10 mg PO DAILY [facility] Last Admin: 01/07/20 08:03 Dose: 10 mg Documented by: Losartan Potassium (Cozaar) 100 mg PO DAILY [facility] Last Admin: 01/07/20 08:04 Dose: 100 mg Documented by: Magnesium Oxide (Mag-Ox 400) 400 mg PO DAILY [facility] Last Admin: 01/07/20 08:06 Dose: 400 mg Documented by: Metoprolol Tartrate (Lopressor (Beta Chidi)) 50 mg PO TID [facility] Last Admin: 01/07/20 05:10 Dose: 50 mg Documented by: Ondansetron HCl (Zofran) 4 mg IV Q8H PRN PRN PRN Reason: NAUSEA/VOMITING Oxycodone HCl (Oxyir) 5 mg PO Q6H PRN PRN PRN Reason: Pain Score 1-10/10 Last Admin: 01/06/20 22:02 Dose: 5 mg Documented by: Polyethylene Glycol (Miralax) 17 gm PO DAILY [facility] Last Admin: 01/07/20 08:06 Dose: Not Given Documented by: Senna (Senokot) 1 tablet PO BID [facility] Last Admin: 01/07/20 08:07 Dose: 1 tablet Documented by: Sodium Chloride () 10 - 40 ml IV UD PRN PRN Reason: SALINE FLUSH Last Admin: 01/05/20 17:25 Dose: 10 ml Documented by: Temazepam (Restoril) 15 mg PO QHS PRN PRN Reason: INSOMNIA Last Admin: 01/06/20 22:02 Dose: 15 mg Documented by: STROKE Vital Signs/Narrative: Vital Signs Pulse Resp Pulse Ox 01/07/20 07:04 65 18 95 01/07/20 07:00 65 Medical Necessity - Tobacco Use Smoking Status: Never smoker Tobacco Use: Non-smoker Assessment/Plan All Active Problems (Last Updated 12/03/19 @ 12:27 by Serena Wilson) Atrial flutter with rapid ventricular response (Acute) Respiratory failure with hypoxia and hypercapnia (Acute) Atrial fibrillation with rapid ventricular response (Acute) S/P CABG x 4 (Acute) Acute exacerbation of CHF (congestive heart failure) (Resolved) 1. Acute inferolateral STEMI, status post cardiac cath No PCI performed. Recent CABG (12/26/19); widely patent grafts except for small region in SVG to PDA not amendable Off heparin drip 2. Acute CHF likely secondary to A.flutter with RVR, improving On Lasix 40mg IV BID, cardiology following BMP in am 3. New onset A flutter, On metoprolol, IV amiodarone, Eliquis Being switched to po amiodarone by cardiology 4. Hypertensive emergency, resolved BP is better controlled on Losartan, metoprolol Will continue to monitor 5. Type II DM, on insulin BS is controlled, continue on home insulin regimen Restarted on metformin tomorrow Continue on accuchecks with ISS 6. Hyperkalemia, resolved 7. Morbid obesity, BMI 46.2, probable VASILIY 8. DVT PPx- on [facility] Inpatient E&M: [id number] Subs Hosp L2
[2020-01-07 11:46] LABS: Bedside Glucose 107 mg/dL (70-110)
--- NOTE | 2020-01-07 11:54 | PCM.DC ---
- Discharge Diagnoses Current Active Problems: Current Active and Chronic Problems (Last Updated 01/04/20 @ 15:34 by Fiorella Cespedes) Atrial flutter with rapid ventricular response (Acute) Type 2 diabetes mellitus (Chronic) Respiratory failure with hypoxia and hypercapnia (Acute) Atrial fibrillation with rapid ventricular response (Acute) S/P CABG x 4 (Acute) Reason(s) for Visit for Discharge Instructions: Shortness of breath You will use the following diet at home:: Calorie/Carbohydrate Controlled (specify 1200, 1400, etc) - 1800 calories, Cardiac Your food should be the consistency of: Regular Your liquids should be the consistency of: Regular/Thin Discharge Activity: Return to Normal Activity Additional Instructions: Follow-up with Dr. Rondon in 1-2 weeks. You need repeat blood work done to check on your kidney function within 1 week. Weigh your self everyday. 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 Follow-up with your cardio-thoracic surgeon as scheduled. Continue to remain active Allergies/Adverse Reactions: Allergies No Known Allergies Allergy (Verified 01/04/20 09:09) Medications to take at Discharge Atorvastatin Calcium [Lipitor] 80 mg PO QHS 11/17/19 Fluticasone 0.05% [Flonase Nasal [place]] 1 spray NASAL DAILY 11/17/19 Ipratropium [place] 1 spray INHALATION DAILY 11/17/19 Levocetirizine Dihydrochloride 5 mg PO DAILY 11/17/19 Losartan Potassium 50 mg PO DAILY 11/17/19 Temazepam 15 mg PO QHS PRN 11/17/19 Testosterone Cypionate 200 mg IM X1 11/17/19 metFORMIN HCl [Glucophage] 1,000 mg PO BIDCM 11/17/19 Acetaminophen [Acetaminophen Extra Strength] 1,000 mg PO Q6H PRN PRN 01/04/20 Aspirin [Aspirin, Baby] 2 tab PO DAILY@0800 01/04/20 Bisacodyl [Dulcolax] 10 mg PO QHS 01/04/20 Gabapentin [Neurontin] 200 mg PO DAILY 01/04/20 Guaifenesin [Mucinex] 600 mg PO BID 01/04/20 Insulin Glargine [Lantus SoloStar Pen] 45 units SUBCUT BID 01/04/20 Insulin Lispro [Insulin Lispro Kwikpen U-100] 22 unit SQ TIDCM 01/04/20 Lidocaine [Salonpas] 1 ea TP DAILY 01/04/20 Magnesium Oxide 400 mg PO DAILY 01/04/20 Metoprolol Tartrate [Lopressor (beta ronen)] 50 mg PO TID 01/04/20 Oxycodone [Oxyir] 5 mg PO Q6H PRN PRN 01/04/20 Polyethylene Glycol 3350 [Miralax] 17 gm PO DAILY 01/04/20 Sennosides [Senna] 8.6 mg PO BID 01/04/20 Amiodarone HCl 200 mg PO DAILY 30 Days #30 tab 01/07/20 Amiodarone HCl [Cordarone] 400 mg PO BID 2 Days #4 tab 01/07/20 Apixaban [Eliquis] 5 mg PO BID 30 Days #60 tab 01/07/20 Furosemide [Lasix] 40 mg PO BIDLX 30 Days #60 tab 01/07/20 The following prescriptions were given: Apixaban [Eliquis] 5 mg PO BID 30 Days #60 tab Transmission Status: [id number] Furosemide [Lasix] 40 mg PO BIDLX 30 Days #60 tab Transmission Status: [id number] Orders to be completed after discharge: Phase II, Outpatient Cardiac Rehab Location: None Selected Primary Care Physician: Josué Rodriguez MD [Primary Care Provider] - Please follow up with your Primary Care Physician in: within 1-2 weeks Test Results: Test results from this visit will be discussed in further detail at your follow-up appointment, if applicable. Please Follow Up With: Ian Rondon MD When: within 2 weeks When: Cardiothoracic surgery as scheduled Proposed Discharge Date: 01/07/20
--- NOTE | 2020-01-07 12:04 | PCM.DC.SUM ---
Discharge Date and Diagnosis - Problem List Patient Problems: Active and Suspected Problems (Last Updated 01/04/20 @ 15:34 by Fiorella Cespedes) Atrial flutter with rapid ventricular response (Acute) Respiratory failure with hypoxia and hypercapnia (Acute) Atrial fibrillation with rapid ventricular response (Acute) S/P CABG x 4 (Acute) Date of Admission: 01/04/20 Date of Discharge: 01/07/20 - Primary Discharge Diagnosis Active and Suspected Problems (Last Updated 01/04/20 @ 15:34 by Fiorella Cespedes) Atrial flutter with rapid ventricular response (Acute) Respiratory failure with hypoxia and hypercapnia (Acute) Acute inferolateral STEMI Acute CHF, diastolic, EF 65% - Secondary Discharge Diagnosis Chronic Problems (Last Updated 12/03/19 @ 12:27 by Serena Wilson) Type 2 diabetes mellitus (Chronic) Hypercholesterolemia (Chronic) Obesity (Chronic) History of left heart catheterization (Chronic 01/04/20) 11/18/19 per [facility] @ [facility]: Triple-vessel disease involving a totally occluded dominant right coronary artery, moderately severe disease noted in the left anterior descending artery, ramus intermedius, and circumflex artery. Recommend surgical consult for revascularization. 01/04/2020:Normal Left Ventricular systolic function; LVEF: by LV gram 65 %. Elevated Left Ventricular End Diastolic Pressure. Triple vessel CAD of the RCA, LAD and LCX/OM; Widely patent ARREDONDO To LAD Widely patent composite graft of SVG attached to free ISAK, with grafts to DIAG and OM; Widely patent SVG to PDA (small) with distal 60% anastamotic narrowing; no PCI recommended given recent CABG and anastomotic narrowing perfusing a small vessel. No overt lesion that required PCI; ST elevation was most likely due to pt's cardiac supply/demand mismatch due to rapid afib and outstripping L to R collaterals to previously known occluded RCA; not a true STEMI. 01/04/20 per DJN @ [facility] Type 2 diabetes mellitus (Chronic) Atherosclerosis of coronary artery of [place] heart without angina pectoris (Chronic) Chronic diastolic (congestive) heart failure (Chronic) Nonrheumatic aortic (valve) stenosis (Chronic) mild per echo 45260 Essential (primary) hypertension (Chronic) Hospital Course and Treatment Imaging Results: Clinical Impression(s) from Imaging Studies Chest X-Ray 01/04/20 09:08 IMPRESSION: Status post CABG with evidence of CHF and blunting of both costophrenic angle. Electronically Signed: Tutu Royal, at 10:08 EDT , Service support , Cardiology Critical care Operations: None Procedures: 2-D Echocardiogram, Cardiac catheterization Summary of Care Provided: 59 year old M with past medical history significant for recent CAD status post CABG x4 (done on 12/26/19), hypertension, type II DM, morbid obesity who presents with progressive shortness of breath, orthopnea and PND with bilateral leg swelling. Patient was discharged from [facility] on 12/31/19. He stated that since his discharge he has been progressively short of breath. His troponins were slightly elevated and CXR was suggestive of acute CHF. He was also found to be in A. flutter with RVR, started on amiodarone and heparin drip and started on Bipap and admitted to ICU. Cardiology was consulted from the ED. Soon after admission, patient developed chest pain and EKG was suggestive of acute inferolateral STEMI. Patient had an emergent cardiac cath which showed widely patent graft with widely patent SVG to PDA with distal 60% anastomotic narrowing, His STEMI was likely secondary to patient's cardiac supply/demand mismatch secondary to rapid A. fib and outstripping L to R collaterals to previously known occluded RCA; not a true STEMI. He improved and was transferred out of ICU the next day. 2D-ECHO shows EF 65%, unable to determine RVSP. Patient had ROBERT during this hospital stay that was related to hemodynamic instability. This improved but was not at his baseline at discharge. He was transitioned off IV Amiodarone to oral. Patient continued to do well. On the day of discharge, he was evaluated for home oxygen and qualified. Patient Problems: Active and Suspected Problems (Last Updated 01/04/20 @ 15:34 by Fiorella Cespedes) Atrial flutter with rapid ventricular response (Acute) Respiratory failure with hypoxia and hypercapnia (Acute) Atrial fibrillation with rapid ventricular response (Acute) S/P CABG x 4 (Acute) Subjective: See Progress note of the day Objective: See Progress note of the day - Physical Exam Vitals/I&O's: Vital Signs Temp Pulse Resp BP Pulse Ox 98.5 F 67 16 124/72 H 86 01/07/20 09:10 01/07/20 09:10 01/07/20 09:10 01/07/20 09:10 01/07/20 09:55 Oxygen Flow Rate (L/min) [ 3 AMBULATION with Oxygen] Oxygen Flow Rate (L/min) 2 Oxygen Delivery Method Room Air Weight: 149.6 kg Body Mass Index (BMI) 46.1 Finger Stick Blood Glucose 128 Intake and Output for Last 24 Hours 01/05/20 01/06/20 01/07/20 23:59 23:59 23:59 Intake Total 1680.90 / 1697.60 1276.41 / 1276.41 200 / 200 Output Total 1150 / 1150 1185 / 1185 Balance 530.90 / 547.60 91.41 / 91.41 200 / 200 Laboratory Results 01/06/20 15:58: POC Glucose 125 H 01/06/20 21:57: POC Glucose 78 01/07/20 07:57: POC Glucose 113 H 01/07/20 08:23: WBC 12.1 H, RBC 3.32 L, Hgb 9.4 L, Hct 32.2 L, MCV 97.0 H, MCH 28.3, MCHC 29.2 L, RDW Std Deviation 49.5 H, RDW Coeff of [place] 14.2, Plt Count 585 H, MPV 10.1, Immature Gran % (Auto) 0.700, Neut % (Auto) 80.9 H, Lymph % (Auto) 8.7 L, [place] % (Auto) 7.3, Eos % (Auto) 1.8, Baso % (Auto) 0.6, Absolute Neuts (auto) 9.8 H, Absolute Lymphs (auto) 1.06, Nucleated RBC % 0 01/07/20 08:23: Sodium 136, Potassium 4.7, Chloride 101, Carbon Dioxide 32.0, Anion Gap 3 L, BUN 41 H, Creatinine 1.28, Estim Creat Clear Calc 62.58, Est GFR (MDRD) Af Amer 73, Est GFR (MDRD) Non-Af 61, BUN/Creatinine Ratio 32.0 H, Glucose 111 H, Calcium 8.5, Total Bilirubin 0.40, AST 85 H, ALT 101 H, Alkaline Phosphatase 98, Total Protein 7.0, Albumin 2.3 L, Globulin 4.7 H, Albumin/Globulin Ratio 0.5 L 01/07/20 11:25: POC Glucose 107 Current Medications Acarbose (Precose) 100 mg PO TIDCM [facility] Last Admin: 01/07/20 10:27 Dose: Not Given Documented by: Acetaminophen (Tylenol) 1,000 mg PO Q8H PRN PRN PRN Reason: Pain 1-10 or Fever Last Admin: 01/07/20 10:30 Dose: 1,000 mg Documented by: Albuterol/Ipratropium (Duoneb) 3 ml INHALATION Q4HWA.RT [facility] Last Admin: 01/07/20 11:12 Dose: 3 ml Documented by: Amiodarone HCl (Cordarone) 400 mg PO BID [facility] Stop: 01/09/20 10:00 Last Admin: 01/07/20 08:03 Dose: 400 mg Documented by: Apixaban (Eliquis) 5 mg PO BID [facility] Last Admin: 01/07/20 08:04 Dose: 5 mg Documented by: Atorvastatin Calcium (Lipitor) 80 mg PO QHS [facility] Last Admin: 01/06/20 22:01 Dose: 80 mg Documented by: Bisacodyl (Dulcolax) 10 mg PO QHS [facility] Last Admin: 01/06/20 21:53 Dose: Not Given Documented by: Dextrose (D50w Syringe) 0 gm IV X1 PRN; Protocol PRN Reason: Hypoglycemia Fluticasone Propionate (Flonase Nasal [place]) 1 spray NASAL DAILY [facility] Last Admin: 01/07/20 08:04 Dose: 1 spray Documented by: Furosemide (Lasix) 40 mg IV BID@1000,1800 [facility] Last Admin: 01/07/20 08:05 Dose: 40 mg Documented by: Gabapentin (Neurontin) 200 mg PO DAILY [facility] Last Admin: 01/07/20 08:07 Dose: 200 mg Documented by: Glucagon () 1 mg IM .X1 PRN PRN Reason: Hypoglycemia Guaifenesin (Mucinex) 600 mg PO BID [facility] Last Admin: 01/07/20 08:06 Dose: 600 mg Documented by: Sodium Chloride () 250 mls @ 15 mls/hr IV .[id number] PRN PRN Reason: Saline Flush Sodium Chloride () 250 mls @ 15 mls/hr IV .[id number] PRN PRN Reason: Additional IVPB Infusion Insulin Glargine (Lantus (Bk)) 45 units SC BIDAC [facility] Last Admin: 01/07/20 08:01 Dose: 45 u Documented by: Insulin Human Lispro (Humalog Kwikpen ([facility])) 0 unit SC ACHS [facility]; Protocol Last Admin: 01/07/20 11:25 Dose: Not Given Documented by: Insulin Human Lispro (Humalog Kwikpen ([facility])) 22 unit SC TIDCM [facility] Last Admin: 01/07/20 11:46 Dose: 22 u Documented by: Isosorbide Mononitrate (Imdur) 30 mg PO DAILY [facility] Last Admin: 01/07/20 08:05 Dose: 30 mg Documented by: Loratadine (Claritin) 10 mg PO DAILY [facility] Last Admin: 01/07/20 08:03 Dose: 10 mg Documented by: Losartan Potassium (Cozaar) 100 mg PO DAILY [facility] Last Admin: 01/07/20 08:04 Dose: 100 mg Documented by: Magnesium Oxide (Mag-Ox 400) 400 mg PO DAILY [facility] Last Admin: 01/07/20 08:06 Dose: 400 mg Documented by: Metformin [facility] (Glucophage) [facility] Metoprolol Tartrate (Lopressor (Beta Chidi)) 50 mg PO TID [facility] Last Admin: 01/07/20 05:10 Dose: 50 mg Documented by: Ondansetron HCl (Zofran) 4 mg IV Q8H PRN PRN PRN Reason: NAUSEA/VOMITING Oxycodone HCl (Oxyir) 5 mg PO Q6H PRN PRN PRN Reason: Pain Score 1-10/10 Last Admin: 01/06/20 22:02 Dose: 5 mg Documented by: Polyethylene Glycol (Miralax) 17 gm PO DAILY [facility] Last Admin: 01/07/20 08:06 Dose: Not Given Documented by: Senna (Senokot) 1 tablet PO BID [facility] Last Admin: 01/07/20 08:07 Dose: 1 tablet Documented by: Sodium Chloride () 10 - 40 ml IV UD PRN PRN Reason: SALINE FLUSH Last Admin: 01/05/20 17:25 Dose: 10 ml Documented by: Temazepam (Restoril) 15 mg PO QHS PRN PRN Reason: INSOMNIA Last Admin: 01/06/20 22:02 Dose: 15 mg Documented by: Discharge Diet: Low fat/ Low Cholesterol, 8 Cup Fluid Restriciton, 2000 mg Sodium Diet Discharge Activity: Return to Normal Activity Home Medications: Medications to take at Discharge Atorvastatin Calcium [Lipitor] 80 mg PO QHS 11/17/19 Fluticasone 0.05% [Flonase Nasal [place]] 1 spray NASAL DAILY 11/17/19 Ipratropium [place] 1 spray INHALATION DAILY 11/17/19 Levocetirizine Dihydrochloride 5 mg PO DAILY 11/17/19 Losartan Potassium 50 mg PO DAILY 11/17/19 Temazepam 15 mg PO QHS PRN 11/17/19 Testosterone Cypionate 200 mg IM X1 11/17/19 metFORMIN HCl [Glucophage] 1,000 mg PO BIDCM 11/17/19 Acetaminophen [Acetaminophen Extra Strength] 1,000 mg PO Q6H PRN PRN 01/04/20 Aspirin [Aspirin, Baby] 2 tab PO DAILY@0800 01/04/20 Bisacodyl [Dulcolax] 10 mg PO QHS 01/04/20 Gabapentin [Neurontin] 200 mg PO DAILY 01/04/20 Guaifenesin [Mucinex] 600 mg PO BID 01/04/20 Insulin Glargine [Lantus SoloStar Pen] 45 units SUBCUT BID 01/04/20 Insulin Lispro [Insulin Lispro Kwikpen U-100] 22 unit SQ TIDCM 01/04/20 Lidocaine [Salonpas] 1 ea TP DAILY 01/04/20 Magnesium Oxide 400 mg PO DAILY 01/04/20 Metoprolol Tartrate [Lopressor (beta chidi)] 50 mg PO TID 01/04/20 Oxycodone [Oxyir] 5 mg PO Q6H PRN PRN 01/04/20 Polyethylene Glycol 3350 [Miralax] 17 gm PO DAILY 01/04/20 Sennosides [Senna] 8.6 mg PO BID 01/04/20 Amiodarone HCl 200 mg PO DAILY 30 Days #30 tab 01/07/20 Amiodarone HCl [Cordarone] 400 mg PO BID 2 Days #4 tab 01/07/20 Apixaban [Eliquis] 5 mg PO BID 30 Days #60 tab 01/07/20 Furosemide [Lasix] 40 mg PO BIDLX 30 Days #60 tab 01/07/20 Following Prescrptions Were Given to Patient: Amiodarone HCl 200 mg PO DAILY 30 Days #30 tab Transmission Status: Received by [facility]/pharmacy #[id number] Amiodarone HCl [Cordarone] 400 mg PO BID 2 Days #4 tab Transmission Status: Received by [facility]/pharmacy #[id number] Apixaban [Eliquis] 5 mg PO BID 30 Days #60 tab Transmission [facility]: [id number] Furosemide [Lasix] 40 mg PO BIDLX 30 Days #60 tab Transmission Status: Received by [facility]/pharmacy #[id number] Other Amb Orders: Phase II, Outpatient Cardiac Rehab Location: None Selected Primary Care Physician: Josué Rodriguez MD [Primary Care Provider] - Please follow up with your Primary Care Physician in: within 1-2 weeks Please Follow Up With: Ian Rondon MD When: within 2 weeks When: Cardiothoracic surgery as scheduled Disposition: Home Minutes spent on discharge:: 40 Patient Condition:: Stable Medical Necessity - Tobacco Use Smoking Status: Never smoker Tobacco Use: Non-smoker Meaningful Use Info Meaningful Use Diagnoses (Choose all that apply): CHF - CHF KARISSA/ARB ordered at discharge?: No Reason KARISSA/ARB not ordered?: Worsening renal function Documented LVEF (%): 65 Inpatient E&M: 44681 Disch Hosp
--- NOTE | 2020-01-07 12:31 | PCM.PN.CARD ---
Subjectve: The patient appears to be resting comfortably. He states overall he is doing better. He denies any ongoing chest discomfort separate from his postsurgical chest soreness. He notes his breathing has improved. He notes his lower extremity edema has improved. He requests release home for continued outpatient follow-up. Objective: Vital Signs Temp Pulse Resp BP Pulse Ox 98.5 F 70 18 124/72 H 86 01/07/20 09:10 01/07/20 11:12 01/07/20 11:12 01/07/20 09:10 01/07/20 09:55 Oxygen Flow Rate (L/min) [ 3 AMBULATION with Oxygen] Oxygen Flow Rate (L/min) 2 Oxygen Delivery Method Room Air Weight: 329 lb 12.984 oz Body Mass Index (BMI) 46.1 Finger Stick Blood Glucose 128 Intake and Output for Last 24 Hours 01/05/20 01/06/20 01/07/20 23:59 23:59 23:59 Intake Total 1680.90 / 1697.60 1276.41 / 1276.41 700 / 700 Output Total 1150 / 1150 1185 / 1185 Balance 530.90 / 547.60 91.41 / 91.41 700 / 700 General: Awake, Alert, Oriented x 3, Cooperative, No Acute Distress, Obese HEENT: Atraumatic, Normocephalic, PERRL, EOMI Oral: Moist Mucosa Neck: Supple, No JVD Chest Wall: Midline Sternotomy Incision Lungs: Clear to auscultation Cardiovascular: Irregular Rhythm, Normal S1, Normal S2 Abdomen: Bowel Sounds Present, Soft, Non Tender Extremities: - - Bilateral support stockings: Bilateral mild peripheral pitting edema (left greater than right) Neurological: No Focal Motor or Sensory Deficit Psych/Mental Status: Appropriate 01/07/20 08:23: WBC 12.1 H, RBC 3.32 L, Hgb 9.4 L, Hct 32.2 L, MCV 97.0 H, MCH 28.3, MCHC 29.2 L, Plt Count 585 H, MPV 10.1, Immature Gran % (Auto) 0.700, Neut % (Auto) 80.9 H, Lymph % (Auto) 8.7 L, [place] % (Auto) 7.3, Eos % (Auto) 1.8, Baso % (Auto) 0.6, Absolute Neuts (auto) 9.8 H, Nucleated RBC % 0 01/07/20 08:23: Sodium 136, Potassium 4.7, Chloride 101, Carbon Dioxide 32.0, Anion Gap 3 L, BUN 41 H, Creatinine 1.28, Est GFR (MDRD) Af Amer 73, Est GFR (MDRD) Non-Af 61, BUN/Creatinine Ratio 32.0 H, Glucose 111 H, Calcium 8.5, Total Bilirubin 0.40 Rhythm: Atrial flutter; PVCs Medical Necessity - Tobacco Use Smoking Status: Never smoker Tobacco Use: Non-smoker Assessment/Plan 1. CAD status post CABG The patient has undergone evaluation and care with recent CAD status post CABG. He did have concerns of a recurrent acute coronary syndrome. Thus he underwent repeat diagnostic cardiac catheterization. He did not require percutaneous revascularization therapy. He has been recuperating without any obvious recurrent symptoms. 2. Atrial fibrillation/flutter He appears to have atrial fibrillation/flutter. He has been on medical management. He will continue medical therapy and depending upon his future rate and rhythm consideration can be given to attempt at regaining sinus rhythm with synchronized biphasic DC cardioversion once he has had adequate anticoagulation therapy. 3. Hyperlipidemia He will continue risk factor modification medical management. 4. Hypertension He should continue to monitor his blood pressure and have his medications adjusted as deemed appropriate. Overall the patient appears to be symptomatically improved. He did request release home for continued outpatient follow-up. Comment: The patient's case was discussed and reviewed with patient and Dr. Ventura. This note was generated using a voice recognition system and there may be incorrect words, spelling or punctuation that were not noted when reviewing the office note prior to saving.
--- NOTE | 2020-01-07 12:32 | CASEMGMT ---
Addendum entered by Marito Simon 01/07/20 14:13: Attempted two calls to [facility] to verify time of delivery of portable tank. Rep was able to put CM through to project scheduler. They are currently going to meet pt's @ home to set up, then will bring portable tank to hospital. Pt updated. Alok CHAVES Addendum entered by Marito Simon 01/07/20 14:04: Information for 30 day free Eliquis trial called to Pt's pharmacy. Per pharmacist, card went through. Original Note: RN PARVEEN Note: reintroduced role of CM to patient who will be dc'd today, needs home oxygen. Has Eliquis card. Updated that [facility] is [facility] and pt is agreeable to this. Script/Demographics, Insurance card and testing faxed to Riccardo @ [phone]. Physician documentation for home oxygen will be faxed when available. Call to [facility] answering service to update on oxygen need. Alok SMITHM
== END 2020-01-07 15:00 | disposition home or self-care (01) | DRG 189 ==
LOC: ED 10:38 → ICU 11:34 → PCU 01-05 11:21
PROVIDERS: Admitting Provider Internal Medicine; Emergency Provider Emergency Medicine; PCP Family Medicine; Visit Provider Internal Medicine
DX: J96.21 Acute and chronic respiratory failure with hypoxia (principal); I21.19 ST elevation (STEMI) myocardial infarction involving other coronary artery of inferior wall; I50.33 Acute on chronic diastolic (congestive) heart failure; I48.92 Unspecified atrial flutter; Z68.42 Body mass index [BMI] 45.0-49.9, adult; I25.810 Atherosclerosis of coronary artery bypass graft(s) without angina pectoris; I16.1 Hypertensive emergency; N17.9 Acute kidney failure, unspecified; J96.22 Acute and chronic respiratory failure with hypercapnia; I48.91 Unspecified atrial fibrillation; Z95.1 Presence of aortocoronary bypass graft; Z79.4 Long term (current) use of insulin; E78.00 Pure hypercholesterolemia, unspecified; I35.0 Nonrheumatic aortic (valve) stenosis; I25.10 Atherosclerotic heart disease of native coronary artery without angina pectoris; E66.01 Morbid (severe) obesity due to excess calories; Z79.51 Long term (current) use of inhaled steroids; Z79.82 Long term (current) use of aspirin; Z79.899 Other long term (current) drug therapy; I11.0 Hypertensive heart disease with heart failure; E11.69 Type 2 diabetes mellitus with other specified complication; E87.5 Hyperkalemia
CPT/HCPCS: 36415; 36600; 71045; 80053; 82803; 82962; 83605; 83880; 84484; 85025; 85347; 85610; 85730; 93005; 93308; 93459; 94002; 94640; 94762; 99251; 99285; C1760; Q9957; Q9967; A4216; C1769; C8924; G0463; J1940

== ENCOUNTER 2020-01-09 07:40 | Inpatient (IN) | payer OTHER, SELFPAY ==
[2020-01-04 12:09] VITALS: BMI 46.1
[2020-01-09] VITALS (29 sets, daily range): BP systolic 70–186; BP diastolic 50–122; PULSE 62–86; RESP 12–32; TEMP 35.4–38.4; O2SAT 88–100; BMI 46.0; BMI 45.0; BMI 45.1
--- NOTE | 2020-01-09 07:46 | EKG12_ITS ---
Test Reason : Blood Pressure : / mmHG Vent. Rate : 060 BPM Atrial Rate : 250 BPM P-R Int : 000 ms QRS Dur : 110 ms QT Int : 392 ms P-R-T Axes : 000 046 069 degrees QTc Int : 392 ms Undetermined rhythm Otherwise normal ECG Confirmed by YUNG ENRIQUEZ ([id number]), web editor SHAW HERNANDEZ ([id number]) on 01/12/2020 3:11:31 PM Referred By: SOUMYA Confirmed By:YUNG ENRIQUEZ
--- NOTE | 2020-01-09 07:46 | RAD_ITS ---
STUDY: X-RAY CHEST REASON FOR EXAM: Male, 59 years old. RESPIRATORY DISTRESS, ARRIVES ON NON-REBREATHER, ALTERED CONSCIOUSNESS TECHNIQUE: Single AP portable view of the chest. COMPARISON: Comparison is made with prior examination dated January 04, 2020. FINDINGS: EKG electrodes are seen. There is evidence of vascular congestion mild CHF with superimposed bibasilar atelectasis and/or infiltrates more prominent on the left side. This has worsened as compared to prior study. Blunting of both costophrenic angles. Sternal cerclage wires and vascular clips are present from a prior sternotomy and coronary artery bypass graft procedure (CABG). Cardiomegaly. Normal mediastinum and riana. Normal visualized pulmonary arteries. There is atherosclerotic tortuosity of the aortic arch and descending thoracic aorta. Normal visualized thoracic spine. Normal visualized ribs, clavicles, and shoulders. There is no demonstrated abnormality of the visualized soft tissue structures of the upper abdomen. RAD/Chest 1 View (Portable) IMPRESSION: Status post CABG. Vascular congestion and mild CHF with small bilateral pleural effusions and bibasilar atelectasis and/or infiltrates worse on the left side. This has worsened as compared to prior study. Electronically Signed: Tutu Royal, at 8:29 EDT , Service support ,
--- NOTE | 2020-01-09 07:54 | ED.DCSUM_ITS ---
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 Patient was actually just seen here and discharged 2 days ago. At that point, he was found to be in new onset atrial fibrillation with rapid ventricular response. The patient underwent repeat heart catheterization which showed patent grafts. There was no percutaneous intervention necessary. The patient was diuresed and was feeling improved. He was discharged home. Today, squad was called because the patient could not breathe. On arrival, the patient was found to have a pulse ox in the 70s. Squad states that he had a difficult time following commands. He denies any fevers or chills. He denies any chest pain. He states this feels very similar to when he was hospitalized the last time. Prior similar symptoms: Yes Recent Illness/Hospitalization: Yes Past Medical History - Allergies and Home Meds Allergies/Adverse Reactions: Allergies No Known Allergies Allergy (Verified 01/09/20 07:48) Prior records reviewed: Yes Past Medical History: - - Hypertension, hyperlipidemia Surgical History: coronary bypass surgery - Four-vessel bypass surgery December 25 Smoking Status: Never smoker - Family History Maternal Family History: Family History (Last Updated 12/03/19 @ 12:26 by Serena Wilson) Mother Hypertension Father Hypertension Heart disease Family History: Reports: Cancer - breast cancer, Hypertension Paternal Family History: Family History (Last Updated 12/03/19 @ 12:26 by Serena Wilson) Mother Hypertension Father Hypertension Heart disease Family History: Reports: Heart Disease, Hypertension Review of Systems General: Denies: Chills, Fever, Sweats Eyes: Denies: Visual changes - bilaterally, Diplopia ENT: Denies: Rhinorrhea, Sore throat Cardiovascular: Denies: Chest pain, Palpitations Respiratory: Reports: Dyspnea, Cough, Dyspnea on exertion Gastrointestinal: Denies: Abdominal pain, Nausea, Vomiting, Diarrhea, Melena, H ematochezia Genitourinary: Denies: Dysuria, Hematuria, Frequency Musculoskeletal: Denies: Back pain, Extremity Pain Skin: Denies: Rash, Wounds Neurological: Denies: Headache, Weakness, Numbness Physical Exam Vital Signs/Narrative: Vital Signs Temp Pulse Resp BP Pulse Ox 01/09/20 07:41 95.8 F L 78 29 H 157/64 H 100 Inital Vital Signs reviewed: Yes General: Well nourished, Well developed, Acute Distress Head: Normocephalic, Atraumatic Eyes: Perrl, EOMI ENT: Moist mucous membranes, No rhinorrhea Neck: Supple, Nontender Cardiovascular: Regular rate, Regular rhythm, No murmurs Respiratory: No distress, Chest nontender, Rales, Decreased Air Movement Abdomen: Soft, Nontender, Nondistended, Normal bowel sounds Back: Nontender, Normal Inspection Extremities: Nontender, Edema Skin: Normal color, No rash Neurological: Alert, Cranial nerves II-XII grossly intact, Normal Strength, Normal Sensation Psychological: Normal affect, Normal Mood Diagnostic/Tx/Re-eval Chest X-Ray - ED: 1 View, Cardiomegaly, CHF, Right Effusion, Left Effusion Clinical Impression(s) from Imaging Studies Chest X-Ray 01/09/20 07:46 IMPRESSION: Status post CABG. Vascular congestion and mild CHF with small bilateral pleural effusions and bibasilar atelectasis and/or infiltrates worse on the left side. This has worsened as compared to prior study. Electronically Signed: Tutu Royal, at 8:29 EDT , Service support , Abnormal Lab Results 01/09/20 01/09/20 01/09/20 07:45 07:45 07:45 WBC 19.2 H RBC 3.40 L Hgb 9.8 L Hct 35.1 L MCV 103.2 H D MCH 28.8 MCHC 27.9 L RDW Std Deviation 53.7 H RDW Coeff of [place] 14.2 Plt Count 798 H* MPV 9.6 Immature Gran % (Auto) 1.100 H Neut % (Auto) 84.1 H Lymph % (Auto) 7.3 L Whitfield % (Auto) 6.9 Eos % (Auto) 0.2 Baso % (Auto) 0.4 Absolute Neuts (auto) 16.1 H Absolute Lymphs (auto) 1.40 Nucleated RBC % 0 Differential Comment SCANNED Platelet Estimate MKD INC PT 16.7 H INR 1.4 Specimen Type Sample Site pH Bicarbonate Actual POC Total CO2 Base Excess O2 Saturation O2 % ABG pCO2 ABG pO2 Gustavo Test Respiration Rate O2 Delivery Device EPAP IPAP Blood Gas Notified Whom Blood Gas Notified Time Sodium 135 L Potassium 6.8 H* Chloride 99 Carbon Dioxide 36.0 H Anion Gap 0 L BUN 35 H Creatinine 1.22 Estim Creat Clear Calc 67.72 Est GFR (MDRD) Af Amer 78 Est GFR (MDRD) Non-Af 64 BUN/Creatinine Ratio 28.7 H Glucose 179 H Lactic Acid Calcium 8.8 Total Bilirubin 0.30 AST 56 H ALT 101 H Alkaline Phosphatase 122 H Troponin I 4.410 H* B-Natriuretic Peptide Total Protein 8.0 Albumin 2.7 L Globulin 5.3 H Albumin/Globulin Ratio 0.5 L Urine Color Urine Clarity Urine pH Ur Specific [place] Urine Protein Urine Glucose (UA) Urine Ketones Urine Occult Blood Urine Nitrite Urine Bilirubin Urine Urobilinogen Ur Leukocyte Esterase Urine RBC Urine WBC Ur Squamous Epith Cells Urine Bacteria Urine Mucus 01/09/20 01/09/20 01/09/20 07:45 07:45 08:00 WBC RBC Hgb Hct MCV MCH MCHC RDW Std Deviation RDW Coeff of [place] Plt Count MPV Immature Gran % (Auto) Neut % (Auto) Lymph % (Auto) [place] % (Auto) Eos % (Auto) Baso % (Auto) Absolute Neuts (auto) Absolute Lymphs (auto) Nucleated RBC % Differential Comment Platelet Estimate PT INR Specimen Type Sample Site pH Bicarbonate Actual POC Total CO2 Base Excess O2 Saturation O2 % ABG pCO2 ABG pO2 Gustavo Test Respiration Rate O2 Delivery Device EPAP IPAP Blood Gas Notified Whom Blood Gas Notified Time Sodium Potassium Chloride Carbon Dioxide Anion Gap BUN Creatinine Estim Creat Clear Calc Est GFR (MDRD) Af Amer Est GFR (MDRD) Non-Af BUN/Creatinine Ratio Glucose Lactic Acid 0.8 Calcium Total Bilirubin AST ALT Alkaline Phosphatase Troponin I B-Natriuretic Peptide 635.8 H Total Protein Albumin Globulin Albumin/Globulin Ratio Urine Color Yellow Urine Clarity Clear Urine pH 6.0 Ur Specific [place] 1.020 Urine Protein 15 H Urine Glucose (UA) Normal Urine Ketones Negative Urine Occult Blood 10 H Urine Nitrite Positive H Urine Bilirubin Negative Urine Urobilinogen Normal Ur Leukocyte Esterase 25 H Urine RBC 0-5 SEEN Urine WBC 5-10 SEEN Ur Squamous Epith Cells 0 SEEN Urine Bacteria 3+ Urine Mucus 0 SEEN 01/09/20 08:05 WBC RBC Hgb Hct MCV MCH MCHC RDW Std Deviation RDW Coeff of [place] Plt Count MPV Immature Gran % (Auto) Neut % (Auto) Lymph % (Auto) [place] % (Auto) Eos % (Auto) Baso % (Auto) Absolute Neuts (auto) Absolute Lymphs (auto) Nucleated RBC % Differential Comment Platelet Estimate PT INR Specimen Type ART Sample Site L RADIAL pH 7.18 L* Bicarbonate Actual 35.1 H POC Total CO2 38 Base Excess 7 H O2 Saturation 92 L O2 % 60 ABG pCO2 94.6 H* ABG pO2 82 Gustavo Test POS Respiration Rate 12 O2 Delivery Device Bi Pap EPAP 10 IPAP 18 Blood Gas Notified Whom ED MD Blood Gas Notified Time 805 Sodium Potassium Chloride Carbon Dioxide Anion Gap BUN Creatinine Estim Creat Clear Calc Est GFR (MDRD) Af Amer Est GFR (MDRD) Non-Af BUN/Creatinine Ratio Glucose Lactic Acid Calcium Total Bilirubin AST ALT Alkaline Phosphatase Troponin I B-Natriuretic Peptide Total Protein Albumin Globulin Albumin/Globulin Ratio Urine Color Urine Clarity Urine pH Ur Specific [place] Urine Protein Urine Glucose (UA) Urine Ketones Urine Occult Blood Urine Nitrite Urine Bilirubin Urine Urobilinogen Ur Leukocyte Esterase Urine RBC Urine WBC Ur Squamous Epith Cells Urine Bacteria Urine Mucus - Rhythm Strip Rhythm Strip: A-fib Rate: 65 Ectopy: PAC(s) - EKG Initial EKG Interpretation: Atrial Fibrillation, Non-Specific ST Changes Prior: Unchanged - Medical Decision Making The patient presents to the emergency department with significant shortness of breath, hypoxia, and confusion. He did not have a fever. His symptoms do seem consistent with volume overload. Chest x-ray was obtained. It does show significant cephalization with large effusions and CHF. EKG demonstrated atrial fibrillation without rapid ventricular response. There was some slight elevation in lead II and III, but unchanged from prior. The patient recently had heart catheterization with no requirement of intervention. He was placed on BiPAP and ABG was obtained. This did demonstrate hypercapnic respiratory failure. With the BiPAP, his mental status had continued to improve. Patient was found to have leukocytosis and a urinary tract infection. Blood cultures and urine culture was obtained. His cardiac enzymes are elevated, but he also had recent catheterization and was globally hypoxic. The patient was discussed with cardiology, the radiology rn, and the hospitalist. He will be admitted at this time. Impression 1. Acute hypoxic and hypercapnic respiratory failure 2. Decompensated CHF 3. Elevated troponin 4. Hyperkalemia 5. Urinary tract infection 6. Sepsis - Critical Care Time Critical care time (excluding procedures): 30-74 minutes, Discussing w/Patient &/or Family/Product Safety Manager, Discussing w/Consultants, Arranging Admission or Transfer, Performing Direct Patient Care at Bedside ED Disposition - Plan for ED Patient:
[2020-01-09 08:00] LABS: Absolute Neutrophil Count 16.1 X10^3/uL (2.0-7.7); Basophil# 0.08 X10^3/uL; Basophil% 0.4 % (0-1); Eosinophil# 0.04 X10^3/uL; Eosinophils% 0.2 % (0-5); Hematocrit 35.1 % (40-54); Hemoglobin 9.8 g/dL (13.0-16.5); Lymphocyte % 7.3 % (19-41); Mean Corp Hgb Conc 27.9 g/dL (32-36); Mean Corpuscular Hgb 28.8 pg (27.0-32.0); Mean Corpuscular Volume 103.2 fL (80-94); Mean Platelet Vol. 9.6 fl (6.2-12.0); Monocyte# 1.32 X10^3/uL; Monocyte% 6.9 % (0-10); NRBC Flagged by Analyzer 0 % (0-5); Neutrophil # 16.14 X10^3/uL (2.7-7.7); Neutrophil % 84.1 % (47-70); POSITIVE COUNT YES; RBC Distribution Width CV 14.2 % (11.6-14.6); RBC Distribution Width SD 53.7 fl (35.1-43.9); White Blood Count 19.2 K/mm3 (4.4-11.0)
[2020-01-09 08:02] LABS: Differential Indicated SCAN CRITERIA MET; Platelet Count 798 K/mm3 (150-450)
[2020-01-09 08:08] LABS: Mucous, Urine 0 SEEN /hpf (<or=2+); Squamous Epithelial Cells - UA 0 SEEN /hpf (0-5)
[2020-01-09 08:09] LABS: Color, Urine Yellow (Yellow); Glucose, Dipstick Normal (Normal); Ketone-Dipstick Negative (Negative); Leukocyte Esterase-Dipstick 25 /ul (Negative); Nitrite-Dipstick Positive (Negative); Occult Blood-Urine 10 /ul (Negative); Protein-Dipstick 15 mg/dl (Negative); Urine Bilirubin Dipstick Negative (Negative); Urine Clarity Clear (Clear); Urine Urobilinogen Normal (Normal)
[2020-01-09] MEDS: Nitroglycerin Infusion 250 ML 6 MG CONT INF (08:13)
[2020-01-09 08:14] LABS: White Blood Cells 5-10 SEEN /hpf (0-5)
[2020-01-09 08:15] LABS: Bacteria 3+ /hpf (None Seen); Red Blood Cells-Urine 0-5 SEEN /hpf (0-5)
[2020-01-09 08:16] LABS: Base Excess 7 mmol/L (-2 to +2); Bicarbonate 35.1 mmol/L (22-26); PO2 82 mmHG (75-100); SO2 92 % (95-99); Total Carbon Dioxide 38 mmol/L
[2020-01-09 08:18] LABS: Differential Comment SCANNED; Platelet Estimate MKD INC (ADEQ)
[2020-01-09 08:20] LABS: BNP,B-Type NATRIURETIC PEPTIDE 635.8 pg/mL (0-100); International Normalized Ratio 1.4; Prothrombin Time (Protime)PT. 16.7 SECONDS (11.7-14.9)
[2020-01-09 08:21] LABS: Allen Test POS; Blood Gas Specimen Type ART; SITE L RADIAL
[2020-01-09 08:22] LABS: ALB/GLOB Ratio 0.5 RATIO (0.9-2.4); AST(SGOT) 56 U/L (15-37); Alanine Aminotransfer ALT/SGPT 101 U/L (16-61); Albumin, Serum 2.7 g/dL (3.2-5.0); Alkaline Phosphatase 122 U/L (45-117); Anion Gap 0 (5-15); BUN 35 mg/dL (7-18); BUN/Creat Ratio 28.7 RATIO (10-20); Calcium,Total 8.8 mg/dL (8.5-10.1); Chloride 99 mmol/L (98-107); Creatinine, Serum 1.22 mg/dL (0.70-1.30); EST Glomerular Filtration Rate 64 mL/min (>60); Est Glom Filt Rate - Afr Amer 78 mL/min (>60); Estimated Creatinine Clearance 67.72 ml/min; Globulin 5.3 g/dL (2.2-4.2); Glucose 179 mg/dL (74-106); Potassium 6.8 mmol/L (3.5-5.1); Sodium Level 135 mmol/L (136-145)
[2020-01-09 08:22] LABS: EPAP 10; FI02 60; IPAP 18; O2 Delivery Device Bi Pap; RR 12; Time Given 805
[2020-01-09 08:23] LABS: Lactic Acid 0.8 mmol/L (0.4-1.9)
[2020-01-09 08:23] LABS: pCO2 94.6 mmHg (35-45); pH 7.18 (7.35-7.45)
--- NOTE | 2020-01-09 08:55 | PCM.HP.STD ---
History of Present Illness Date of Admission: 01/09/20 Chief Complaint: shortness of breath, fever The patient is a 59 year old M with an extensive past medical history as outlined was admitted through the ED on 01/09/2020 with a complaint of acute onset shortness of breath. Patient recently had CABG done in November at [facility]. He had been seen at [facility] and discharged just 2 days prior to this presentation when he presented for new onset A. fib with RVR. He had a repeat heart cath which showed patent grafts not requiring any PCI. He was also diuresed and improved and was discharged home on on 01/09/2020. However patient states he became acutely short of breath today and when the squad arrived, he was found to have a pulse ox in the 70s. He was also confused. Patient also said that he had had some subjective fever and a new onset cough which is productive of clear sputum. He denied any nausea vomiting or diarrhea. Review of symptoms otherwise negative. On admission in the ED, she had a low-grade fever of 99.6 Fahrenheit. He was tachypneic with respiratory rate going up into the 30s. Pulse rate was normal at 74 and blood pressure was 109/58. Patient had to be emergently put on BiPAP. Labs done in the ED showed potassium of 6.8 with sodium of 135 and bicarb of 36. BNP was 635.8. Initial troponin was 4.41 because it was 0.8. CBC showed white cell count of 19.2 with hemoglobin of 9.8 and platelets of 798. ABG done emergently in the ED also patient was on BiPAP showed pH of 7.18 with bicarb of 35.1 and PCO2 of 94.6 with PO2 of 82. Repeat ABG done in the ED after patient had been on BiPAP for about an hour still showed pH of 7.18 with PCO2 of 91.9 and PO2 of 111. Urinalysis showed 3+ bacteria and positive nitrites. Chest x-ray done showed vascular congestion and mild CHF with small bilateral pleural effusions and bibasilar atelectasis and/or infiltrates worse on the left side which had worsened compared to prior study. Patient was admitted to the ICU and is being managed for acute hypercapnic respiratory failure due to CHF exacerbation and pneumonia to rule out COVID as well as UTI. [] Past Medical History Past Medical History (Chronic Problems): Chronic Problems (Last Updated 12/03/19 @ 12:27 by Serena Wilson) Type 2 diabetes mellitus (Chronic) Hypercholesterolemia (Chronic) Obesity (Chronic) History of left heart catheterization (Chronic 01/04/20) 11/18/19 per [facility]: Triple-vessel disease involving a totally occluded dominant right coronary artery, moderately severe disease noted in the left anterior descending artery, ramus intermedius, and circumflex artery. Recommend surgical consult for revascularization. 01/04/2020:Normal Left Ventricular systolic function; LVEF: by LV gram 65 %. Elevated Left Ventricular End Diastolic Pressure. Triple vessel CAD of the RCA, LAD and LCX/OM; Widely patent ARREDONDO To LAD Widely patent composite graft of SVG attached to free ISAK, with grafts to DIAG and OM; Widely patent SVG to PDA (small) with distal 60% anastamotic narrowing; no PCI recommended given recent CABG and anastomotic narrowing perfusing a small vessel. No overt lesion that required PCI; ST elevation was most likely due to pt's cardiac supply/demand mismatch due to rapid afib and outstripping L to R collaterals to previously known occluded RCA; not a true STEMI. 01/04/20 per [facility] Type 2 diabetes mellitus (Chronic) Atherosclerosis of coronary artery of [place] heart without angina pectoris (Chronic) Chronic diastolic (congestive) heart failure (Chronic) Nonrheumatic aortic (valve) stenosis (Chronic) mild per echo 70844 Essential (primary) hypertension (Chronic) Medical History: Medical History (Last Updated 12/03/19 @ 12:27 by Serena Wilson) Obesity (Chronic) E66.9 Type 2 diabetes mellitus (Chronic) E11.9 Atherosclerosis of coronary artery of [place] heart without angina pectoris (Chronic) I25.10 Chronic diastolic (congestive) heart failure (Chronic) I50.32 Nonrheumatic aortic (valve) stenosis (Chronic) I35.0 mild per echo 38562 Essential (primary) hypertension (Chronic) I10 Acute exacerbation of CHF (congestive heart failure) (Resolved) I50.9 Acute respiratory failure with hypoxia Onset Date: 11/17/19 J96.01 Elevated troponin Onset Date: 11/17/19 R79.89 Arteriosclerotic cardiovascular disease (Inactive) I25.10 Triple vessel coronary artery disease (Inactive) I25.10 Allergies No Known Allergies Allergy (Verified 01/09/20 07:48) Home Medications: Ambulatory Orders Medication Instructions Recorded Atorvastatin Calcium [Lipitor] 80 mg PO QHS 11/17/19 Fluticasone 0.05% [Flonase Nasal 1 spray NASAL DAILY 11/17/19 [place]] Ipratropium [place] 1 spray INHALATION DAILY 11/17/19 Levocetirizine Dihydrochloride 5 mg PO DAILY 11/17/19 Losartan Potassium 50 mg PO DAILY 11/17/19 Temazepam 15 mg PO QHS PRN 11/17/19 Testosterone Cypionate 200 mg IM X1 11/17/19 metFORMIN HCl [Glucophage] 1,000 mg PO BIDCM 11/17/19 Acetaminophen [Acetaminophen Extra 1,000 mg PO Q6H PRN PRN 01/04/20 Strength] Aspirin [Aspirin, Baby] 2 tab PO DAILY@0800 01/04/20 Bisacodyl [Dulcolax] 10 mg PO QHS 01/04/20 Gabapentin [Neurontin] 200 mg PO DAILY 01/04/20 Guaifenesin [Mucinex] 600 mg PO BID 01/04/20 Insulin Glargine [Lantus SoloStar 45 units SUBCUT BID 01/04/20 Pen] Insulin Lispro [Insulin Lispro 22 unit SQ TIDCM 01/04/20 Kwikpen U-100] Lidocaine [Salonpas] 1 ea TP DAILY 01/04/20 Magnesium Oxide 400 mg PO DAILY 01/04/20 Metoprolol Tartrate [Lopressor 50 mg PO TID 01/04/20 (beta ronen)] Oxycodone [Oxyir] 5 mg PO Q6H PRN PRN 01/04/20 Polyethylene Glycol 3350 [Miralax] 17 gm PO DAILY 01/04/20 Sennosides [Senna] 8.6 mg PO BID 01/04/20 Amiodarone HCl 200 mg PO DAILY 30 Days #30 tab 01/07/20 Amiodarone HCl [Cordarone] 400 mg PO BID 2 Days #4 tab 01/07/20 Apixaban [Eliquis] 5 mg PO BID 30 Days #60 tab 01/07/20 Furosemide [Lasix] 40 mg PO BIDLX 30 Days #60 tab 01/07/20 Surgical History: Surgical History (Last Updated 01/04/20 @ 15:34 by Fiorella Cespedes) History of left heart catheterization (Chronic) Onset Date: 01/04/20 Z98.890 11/18/19 per [facility] @ [facility]: Triple-vessel disease involving a totally occluded dominant right coronary artery, moderately severe disease noted in the left anterior descending artery, ramus intermedius, and circumflex artery. Recommend surgical consult for revascularization. 01/04/2020:Normal Left Ventricular systolic function; LVEF: by LV gram 65 %. Elevated Left Ventricular End Diastolic Pressure. Triple vessel CAD of the RCA, LAD and LCX/OM; Widely patent ARREDONDO To LAD Widely patent composite graft of SVG attached to free ISAK, with grafts to DIAG and OM; Widely patent SVG to PDA (small) with distal 60% anastamotic narrowing; no PCI recommended given recent CABG and anastomotic narrowing perfusing a small vessel. No overt lesion that required PCI; ST elevation was most likely due to pt's cardiac supply/demand mismatch due to rapid afib and outstripping L to R collaterals to previously known occluded RCA; not a true STEMI. 01/04/20 per [facility] @ [facility] Surgical History: coronary bypass surgery - Four-vessel bypass surgery December 25 Psychiatric History: No pertinent psych hx Smoking Status: Never smoker - *Family History Maternal Family History: Family History (Last Updated 12/03/19 @ 12:26 by Serena Wilson) Mother Hypertension Father Hypertension Heart disease History Items: Cancer - breast cancer, Hypertension Paternal Family History: Family History (Last Updated 12/03/19 @ 12:26 by Serena Wilson) Mother Hypertension Father Hypertension Heart disease History Items: Heart Disease, Hypertension Review of Systems Constitutional: Reports: Chills, Fever, Malaise, Weakness, Fatigue. Denies: Anorexia, Weight Change Eyes: Denies: Blurred vision HEENT: Denies: Head Aches, Sinus Congestion, Sinus Drainage Cardiovascular: Denies: Chest Pain, Chest Pressure, Heaviness, Light Headedness, Orthopnea, Palpitations, Paroxysmal Noc. Dyspnea, Syncope Respiratory: Reports: Cough, Shortness of Breath, Shortness of breath at rest, Shortness of breath upon exertion, Sputum production Gastrointestinal: Denies: Abdominal Pain, Nausea, Vomiting Genitourinary: Denies: Dysuria Musculoskeletal: Denies: Joint Pain, Joint Tenderness Skin: Denies: Rash, Wounds Neurological: Denies: Numbness, Tingling, Focal weakness Psychiatric: Denies: Anxiety, Depression, Homicidal Ideations, Suicidal Ideations Hematologic/ Lymphatic: Denies: Easy Bruising, Easy Bleeding VTE Information - Inpt Only VTE Present on Admission: No VTE Pharm Prophylaxis ordered?: Yes - Physical Exam Vitals/I&O's: Vital Signs Temp Pulse Resp BP Pulse Ox 99.3 F H 68 30 H 163/68 H 97 01/09/20 08:22 01/09/20 08:22 01/09/20 08:22 01/09/20 08:22 01/09/20 08:22 Oxygen Delivery Method Bi-pap Weight: 330 lb 4.039 oz Body Mass Index (BMI) 46.0 Finger Stick Blood Glucose 128 General: Alert, Oriented x3, Cooperative, - - on BIPAP HEENT: Atraumatic, PERRLA, EOMI, Normocephalic Oral: Dry Mucosa Neck: Supple Lungs: - - markedly diminished breath sounds in all lung roe, no wheezes or crackles. On BIPAP Cardiovascular: Regular rate, Regular Rhythm, Normal S1, Normal S2, No murmurs Abdomen: Bowel Sounds Present, Soft, Non Tender, Non-Distended, No Hepato-splenomegaly, Obese Extremities: No clubbing, No cyanosis, Capillary Refill Less than 3 Seconds, - - bipedal 2+ pitting edema Skin: No rashes, No breakdown Musculoskeletal: No Tenderness to Palpation of Joints or Extremities Lymphatic: No Cervical, Supraclavicular, or Inguinal Adenopathy Neurological: Cranial nerves II-XII grossly intact, Neuro grossly intact, Motor Exam 5/5 strength throughout Psych/Mental Status: Normal Affect, Appropriate, Alert and oriented to time, place, person, mood and affect Laboratory Results 01/09/20 07:45: WBC 19.2 H, RBC 3.40 L, Hgb 9.8 L, Hct 35.1 L, MCV 103.2 H D, MCH 28.8, MCHC 27.9 L, RDW Std Deviation 53.7 H, RDW Coeff of [place] 14.2, Plt Count 798 H*, MPV 9.6, Immature Gran % (Auto) 1.100 H, Neut % (Auto) 84.1 H, Lymph % (Auto) 7.3 L, [place] % (Auto) 6.9, Eos % (Auto) 0.2, Baso % (Auto) 0.4, Absolute Neuts (auto) 16.1 H, Absolute Lymphs (auto) 1.40, Nucleated RBC % 0, Differential Comment SCANNED, Platelet Estimate MKD INC 01/09/20 07:45: PT 16.7 H, INR 1.4 01/09/20 07:45: Sodium 135 L, Potassium 6.8 H*, Chloride 99, Carbon Dioxide 36.0 H, Anion Gap 0 L, BUN 35 H, Creatinine 1.22, Estim Creat Clear Calc 67.72, Est GFR (MDRD) Af Amer 78, Est GFR (MDRD) Non-Af 64, BUN/Creatinine Ratio 28.7 H, Glucose 179 H, Calcium 8.8, Total Bilirubin 0.30, AST 56 H, ALT 101 H, Alkaline Phosphatase 122 H, Troponin I 4.410 H*, Total Protein 8.0, Albumin 2.7 L, Globulin 5.3 H, Albumin/Globulin Ratio 0.5 L 01/09/20 07:45: Lactic Acid 0.8 01/09/20 07:45: B-Natriuretic Peptide 635.8 H 01/09/20 08:00: Urine Color Yellow, Urine Clarity Clear, Urine pH 6.0, Ur Specific [place] 1.020, Urine Protein 15 H, Urine Glucose (UA) Normal, Urine Ketones Negative, Urine Occult Blood 10 H, Urine Nitrite Positive H, Urine Bilirubin Negative, Urine Urobilinogen Normal, Ur Leukocyte Esterase 25 H, Urine RBC 0-5 SEEN, Urine WBC 5-10 SEEN, Ur Squamous Epith Cells 0 SEEN, Urine Bacteria 3+, Urine Mucus 0 SEEN 01/09/20 08:05: Specimen Type ART, Sample Site L RADIAL, pH 7.18 L*, Bicarbonate Actual 35.1 H, POC Total CO2 38, Base Excess 7 H, O2 Saturation 92 L, O2 % 60, ABG pCO2 94.6 H*, ABG pO2 82, Gustavo Test POS, Respiration Rate 12, O2 Delivery Device Bi Pap, EPAP 10, IPAP 18, Blood Gas Notified Whom ED , Blood Gas Notified Time 805 Diagnostic Data Chest X-Ray 01/09/20 07:46 IMPRESSION: Status post CABG. Vascular congestion and mild CHF with small bilateral pleural effusions and bibasilar atelectasis and/or infiltrates worse on the left side. This has worsened as compared to prior study. Electronically Signed: Tutu Royal, at 8:29 EDT , Service support , Current Medications Nitroglycerin/Dextrose () 250 mls @ 6 mls/hr CONT INF .[id number] [facility]; Protocol Last Admin: 01/09/20 08:13 Dose: 10 mcg/min, 6 mls/hr Documented by: Ceftriaxone Sodium (Rocephin) 1 gm in 50 mls @ 100 mls/hr IV X1 ONE Stop: 01/09/20 08:58 Assessment/Plan All Active Problems (Last Updated 12/03/19 @ 12:27 by Serena Wilson) Atrial flutter with rapid ventricular response (Acute) Respiratory failure with hypoxia and hypercapnia (Acute) Atrial fibrillation with rapid ventricular response (Acute) S/P CABG x 4 (Acute) Acute exacerbation of CHF (congestive heart failure) (Resolved) 59-year-old admitted with a complaint of acute onset shortness of breath and mild fever. 1. Acute hypoxic and hypercapnic respiratory failure likely due to heart failure and health associated pneumonia and probable COVID infection admit to ICU continue BIPAP. Inspiratory pressure increased to [id number] due to elevated pCO2 per ABG give breathing treatments with duonebs get blood culture, sputum cultre, urine for strep and legionella consult critical care on IV vancomycin and zosyn 2. Nonstemi Troponin was up to 4.4. This is likely due to demand ischemia from severe hypoxia. Patient recently had a cath a few days ago which showed patent grafts and did not require PCI. Troponin has also trended down to 3.3. Cardiology on board. Advocated conservative management for now. On board, atorvastatin and Lipitor as well as metoprolol losartan. 3. Acute on chronic HFpEF BNP was around 635. Being diuresed with IV Lasix 40 mg twice daily. Monitor intake and output. Fluid restrictions thousand 500 cc daily. 4. UTI: UA showed 3+ bacteria. Currently on IV vancomycin and Zosyn. Blood cultures and urine cultures ordered. 5. Sepsis due to UTI and health associated pneumonia As under 1. We will hold off on IV fluid hydration due to CHF. 6. Health associated pneumonia, to r/o COVID Was recently discharged from the hospital 2 days ago. Chest x-ray showed vascular congestion and mild CHF with small bilateral pleural effusions and bibasilar atelectasis and/or infiltrates worse on the left side Currently on IV vancomycin and Zosyn. Blood cultures and sputum cultures are pending. COVID screen pending. 7. Hyperkalemia: K was 6.8. Patient received some depleting cocktail in the ED and received Kayexalate. We will repeat potassium level. 8. Type 2 diabetes mellitus: on lantus. ISS. Accuchecks ACHS 9. A. fib: Currently rate controlled. On amiodarone and metoprolol as well as Eliquis DVT prophylaxis: Already on Eliquis CODE STATUS: Full code Patient counseled extensively about different types of CODE STATUS including full code, DNR CCA and DNR CCA. Patient elects to be full code. Total [id number] time 17 minutes. Inpatient E&M: 17960 Init Hosp L3 Procedures: 29515 Advncd Care Plan 30 Min
[2020-01-09] MEDS: Calcium Gluconate 1 GM/10 ML Vial IV (09:22)
[2020-01-09] MEDS: Dextrose 50%-Water 25 GM/50 ML DISP.SYRIN IV (09:22)
[2020-01-09] MEDS: Insulin Lispro 5 UNIT in Syringe 0 ML 3 UNIT IV (09:22)
[2020-01-09] MEDS: Furosemide 40 MG/4 ML Vial IV (09:23)
[2020-01-09] MEDS: Ceftriaxone 1 GM/50 ML BAG IV (09:23)
--- NOTE | 2020-01-09 09:30 | CPS ---
CRITICAL PH VALUE OF 7.[address]. DR[address] DOOLEY AWARE
[2020-01-09 09:35] LABS: Base Excess 6 mmol/L (-2 to +2); Bicarbonate 34.5 mmol/L (22-26); PO2 111 mmHG (75-100); SO2 96 % (95-99); Total Carbon Dioxide 37 mmol/L; pCO2 91.9 mmHg (35-45); pH 7.18 (7.35-7.45)
[2020-01-09] MEDS: Sodium Polystyrene Sulfonate 15 GM/60 ML UDC 30 GM PO ×2 (09:36→19:07)
[2020-01-09 09:55] LABS: Allen Test POS; Blood Gas Specimen Type ART; O2 Delivery Device Bi Pap; SITE L RADIAL
[2020-01-09 09:56] LABS: EPAP 10; FI02 60; IPAP 18; RR 12; Time Given 919
[2020-01-09 11:40] LABS: Base Excess 8 mmol/L (-2 to +2); Bicarbonate 35.1 mmol/L (22-26); PO2 67 mmHG (75-100); SO2 89 % (95-99); Total Carbon Dioxide 37 mmol/L; pH 7.26 (7.35-7.45)
--- NOTE | 2020-01-09 11:43 | CON.PCM_ITS ---
Reason for Consult Date of Consultation: 01/09/20 Reason for Consultation: Acute combined respiratory failure History of Present Illness: The patient is a 59-year-old male, with a history as outlined below, who presented to the emergency department on January 08 with complaints of shortness of breath. The patient was just admitted to the hospital January 03 through January 06 after having been admitted for atrial fibrillation, respiratory failure, ST segment elevation GA and acute decompensated heart failure. In addition to the aforementioned, the patient recently underwent a four-vessel bypass surgery on December 25 at [facility]. On presentation to the emergency department, the patient was noted to be afebrile and hemodynamically stable. He was, nevertheless tachypneic and hypoxemic. Laboratory evaluation revealed an elevated white blood cell count to 19,000. Platelet count was elevated to 798,000. Troponin was elevated to 4.4. BNP was increased to 635. Urinalysis was positive for nitrites, leukocyte esterase and 3+ urine bacteria. Chest x-ray was of relatively poor quality but did reveal bilateral pleural effusions along with pulmonary vascular congestion and a possible left-sided pulmonary infiltrate. The patient was subsequently placed on BiPAP therapy and provided with antimicrobials. He was then admitted to the medical intensive care unit for further management. The patient was maintained on noninvasive positive pressure ventilatory support for several hours following his arrival to the ICU. However, at approximately 1400 hrs., I was notified by nursing staff that the patient had become combative and was no longer tolerating BiPAP therapy. He was also significantly hypertensive at that time. Therefore, the decision was made to proceed with emergent intubation. The patient was transferred to a negative airflow room in preparation. Intubation Indication: Impending respiratory failure Consent was obtained from: Done emergently The patient was placed in the appropriate sniffing position. Preoxygenated sedation via BIPAP was provided for a minimum of 3 minutes. The patient had continuous cardiac as well as pulse oximetry monitoring during the procedure. Procedure sedation was provided by the administration of 4 mg of Versed and 20 mg of etomidate. Video laryngoscopy was then performed using a number 4 MAC blade, which revealed a grade 1 view. A 8.0 mm endotracheal tube was visualized advancing between the cords to the level of 22 cm at the lip. The stylette was then removed and discarded. Tube placement was confirmed by fogging in the tube along with equal and bilateral breath sounds. Colorimetric change was visualized on the CO2 meter. The cuff was then inflated and the tube secured using a commercially available device. A good pulse oximetry waveform was seen on the monitor throughout the procedure. A portable chest x-ray has been ordered to confirm appropriate placement. The patient tolerated the procedure well. Past Medical History Past Medical History (Chronic Problems): Chronic Problems (Last Updated 12/03/19 @ 12:27 by Serena Wilson) Type 2 diabetes mellitus (Chronic) Hypercholesterolemia (Chronic) Obesity (Chronic) History of left heart catheterization (Chronic 01/04/20) 11/18/19 per [facility]: Triple-vessel disease involving a totally occluded dominant right coronary artery, moderately severe disease noted in the left anterior descending artery, ramus intermedius, and circumflex artery. Recommend surgical consult for revascularization. 01/04/2020:Normal Left Ventricular systolic function; LVEF: by LV gram 65 %. Elevated Left Ventricular End Diastolic Pressure. Triple vessel CAD of the RCA, LAD and LCX/OM; Widely patent ARREDONDO To LAD Widely patent composite graft of SVG attached to free ISAK, with grafts to DIAG and OM; Widely patent SVG to PDA (small) with distal 60% anastamotic narrowing; no PCI recommended given recent CABG and anastomotic narrowing perfusing a small vessel. No overt lesion that required PCI; ST elevation was most likely due to pt's cardiac supply/demand mismatch due to rapid afib and outstripping L to R collaterals to previously known occluded RCA; not a true STEMI. 01/04/20 per [facility] Type 2 diabetes mellitus (Chronic) Atherosclerosis of coronary artery of [place] heart without angina pectoris (Chronic) Chronic diastolic (congestive) heart failure (Chronic) Nonrheumatic aortic (valve) stenosis (Chronic) mild per echo 70840 Essential (primary) hypertension (Chronic) Medical History: Medical History (Last Updated 12/03/19 @ 12:27 by Serena Wilson) Obesity (Chronic) E66.9 Type 2 diabetes mellitus (Chronic) E11.9 Atherosclerosis of coronary artery of [place] heart without angina pectoris (Chronic) I25.10 Chronic diastolic (congestive) heart failure (Chronic) I50.32 Nonrheumatic aortic (valve) stenosis (Chronic) I35.0 mild per echo 35184 Essential (primary) hypertension (Chronic) I10 Acute exacerbation of CHF (congestive heart failure) (Resolved) I50.9 Acute respiratory failure with hypoxia Onset Date: 11/17/19 J96.01 Elevated troponin Onset Date: 11/17/19 R79.89 Arteriosclerotic cardiovascular disease (Inactive) I25.10 Triple vessel coronary artery disease (Inactive) I25.10 Allergies No Known Allergies Allergy (Verified 01/09/20 07:48) Home Medications: Ambulatory Orders Medication Instructions Recorded Atorvastatin Calcium [Lipitor] 80 mg PO QHS 11/17/19 Fluticasone 0.05% [Flonase Nasal 1 spray NASAL DAILY 11/17/19 [place]] Ipratropium [place] 1 spray INHALATION DAILY 11/17/19 Levocetirizine Dihydrochloride 5 mg PO DAILY 11/17/19 Losartan Potassium 50 mg PO DAILY 11/17/19 Temazepam 15 mg PO QHS PRN 11/17/19 Testosterone Cypionate 200 mg IM X1 11/17/19 metFORMIN HCl [Glucophage] 1,000 mg PO BIDCM 11/17/19 Acetaminophen [Acetaminophen Extra 1,000 mg PO Q6H PRN PRN 01/04/20 Strength] Aspirin [Aspirin, Baby] 2 tab PO DAILY@0800 01/04/20 Bisacodyl [Dulcolax] 10 mg PO QHS 01/04/20 Gabapentin [Neurontin] 200 mg PO DAILY 01/04/20 Guaifenesin [Mucinex] 600 mg PO BID 01/04/20 Insulin Glargine [Lantus SoloStar 45 units SUBCUT BID 01/04/20 Pen] Insulin Lispro [Insulin Lispro 22 unit SQ TIDCM 01/04/20 Kwikpen U-100] Lidocaine [Salonpas] 1 ea TP DAILY 01/04/20 Magnesium Oxide 400 mg PO DAILY 01/04/20 Metoprolol Tartrate [Lopressor 50 mg PO TID 01/04/20 (beta chidi)] Oxycodone [Oxyir] 5 mg PO Q6H PRN PRN 01/04/20 Polyethylene Glycol 3350 [Miralax] 17 gm PO DAILY 01/04/20 Sennosides [Senna] 8.6 mg PO BID 01/04/20 Amiodarone HCl 200 mg PO DAILY 30 Days #30 tab 01/07/20 Amiodarone HCl [Cordarone] 400 mg PO BID 2 Days #4 tab 01/07/20 Apixaban [Eliquis] 5 mg PO BID 30 Days #60 tab 01/07/20 Furosemide [Lasix] 40 mg PO BIDLX 30 Days #60 tab 01/07/20 Surgical History: Surgical History (Last Updated 01/04/20 @ 15:34 by Fiorella Cespedes) History of left heart catheterization (Chronic) Onset Date: 01/04/20 Z98.890 11/18/19 per [facility] @ [facility]: Triple-vessel disease involving a totally occluded dominant right coronary artery, moderately severe disease noted in the left anterior descending artery, ramus intermedius, and circumflex artery. Recommend surgical consult for revascularization. 01/04/2020:Normal Left Ventricular systolic function; LVEF: by LV gram 65 %. Elevated Left Ventricular End Diastolic Pressure. Triple vessel CAD of the RCA, LAD and LCX/OM; Widely patent ARREDONDO To LAD Widely patent composite graft of SVG attached to free ISAK, with grafts to DIAG and OM; Widely patent SVG to PDA (small) with distal 60% anastamotic narrowing; no PCI recommended given recent CABG and anastomotic narrowing perfusing a small vessel. No overt lesion that required PCI; ST elevation was most likely due to pt's cardiac supply/demand mismatch due to rapid afib and outstripping L to R collaterals to previously known occluded RCA; not a true STEMI. 01/04/20 per [facility] @ [facility] Surgical History: coronary bypass surgery - Four-vessel bypass surgery December 25 Psychiatric History: No pertinent psych hx Smoking Status: Never smoker - *Family History Maternal Family History: Family History (Last Updated 12/03/19 @ 12:26 by Serena Wilson) Mother Hypertension Father Hypertension Heart disease History Items: Cancer - breast cancer, Hypertension Paternal Family History: Family History (Last Updated 12/03/19 @ 12:26 by Serena Wilson) Mother Hypertension Father Hypertension Heart disease History Items: Heart Disease, Hypertension Review of Systems Constitutional: Denies: Chills, Fever Eyes: Denies: Blurred vision, Double vision HEENT: Denies: Head Aches, Sinus Congestion, Sinus Drainage Cardiovascular: Reports: Edema. Denies: Chest Pain Respiratory: Reports: Cough, Shortness of Breath Gastrointestinal: Denies: Abdominal Pain, Nausea, Vomiting Genitourinary: Denies: Dysuria Musculoskeletal: Denies: Joint Pain, Joint Tenderness Skin: Denies: Rash, Wounds Neurological: Denies: Numbness, Tingling, Focal weakness Psychiatric: Denies: Anxiety, Depression, Homicidal Ideations, Suicidal Ideations Hematologic/ Lymphatic: Denies: Easy Bruising, Easy Bleeding Objective: The patient's most recent lab work, culture data and imaging studies have all been personally reviewed. - Physical Exam Vitals/I&O's: Vital Signs Temp Pulse Resp BP Pulse Ox 99.7 F H 71 21 H 145/65 H 88 01/09/20 09:50 01/09/20 10:17 01/09/20 10:17 01/09/20 09:50 01/09/20 10:17 Oxygen Delivery Method Bi-pap Weight: 321 lb 13.998 oz Body Mass Index (BMI) 45.0 Finger Stick Blood Glucose 128 Intake and Output for Last 24 Hours 01/07/20 01/08/20 01/09/20 23:59 23:59 23:59 Intake Total 50.05 / 50.05 Balance 50.05 / 50.05 General: - - The patient is somnolent but arousable to verbal stimulation. Morbidly obese. HEENT: Atraumatic, PERRLA, Normocephalic Oral: No Gingival or Mucosal Lesions/ Ulcerations Neck: Supple, No Nodes, Trachea Midline Lungs: No rhonchi, No wheeze, No rales, Diminished Cardiovascular: Normal S1, Normal S2, Irregular Rate Abdomen: Bowel Sounds Present, Soft, Non Tender, Obese Extremities: No clubbing, No cyanosis, Edema Skin: No breakdown Musculoskeletal: No Muscle Wasting Lymphatic: No Cervical, Supraclavicular, or Inguinal Adenopathy Neurological: - - No focal neurological deficits. Psych/Mental Status: Flat Affect Labs (Last 48 Hours) 01/09/20 01/09/20 01/09/20 07:45 07:45 07:45 WBC 19.2 H RBC 3.40 L Hgb 9.8 L Hct 35.1 L MCV 103.2 H D MCH 28.8 MCHC 27.9 L RDW Std Deviation 53.7 H RDW Coeff of [place] 14.2 Plt Count 798 H* MPV 9.6 Immature Gran % (Auto) 1.100 H Neut % (Auto) 84.1 H Lymph % (Auto) 7.3 L [place]elope % (Auto) 6.9 Eos % (Auto) 0.2 Baso % (Auto) 0.4 Absolute Neuts (auto) 16.1 H Absolute Lymphs (auto) 1.40 Nucleated RBC % 0 Differential Comment SCANNED Platelet Estimate MKD INC PT 16.7 H INR 1.4 Specimen Type Sample Site pH Bicarbonate Actual POC Total CO2 Base Excess O2 Saturation O2 % ABG pCO2 ABG pO2 Gustavo Test Respiration Rate O2 Delivery Device EPAP IPAP Blood Gas Notified Whom Blood Gas Notified Time Sodium 135 L Potassium 6.8 H* Chloride 99 Carbon Dioxide 36.0 H Anion Gap 0 L BUN 35 H Creatinine 1.22 Estim Creat Clear Calc 67.72 Est GFR (MDRD) Af Amer 78 Est GFR (MDRD) Non-Af 64 BUN/Creatinine Ratio 28.7 H Glucose 179 H Lactic Acid Calcium 8.8 Total Bilirubin 0.30 AST 56 H ALT 101 H Alkaline Phosphatase 122 H Troponin I 4.410 H* B-Natriuretic Peptide Total Protein 8.0 Albumin 2.7 L Globulin 5.3 H Albumin/Globulin Ratio 0.5 L Urine Color Urine Clarity Urine pH Ur Specific [place] Urine Protein Urine Glucose (UA) Urine Ketones Urine Occult Blood Urine Nitrite Urine Bilirubin Urine Urobilinogen Ur Leukocyte Esterase Urine RBC Urine WBC Ur Squamous Epith Cells Urine Bacteria Urine Mucus 01/09/20 01/09/20 01/09/20 07:45 07:45 08:00 WBC RBC Hgb Hct MCV MCH MCHC RDW Std Deviation RDW Coeff of [place] Plt Count MPV Immature Gran % (Auto) Neut % (Auto) Lymph % (Auto) [place]elope % (Auto) Eos % (Auto) Baso % (Auto) Absolute Neuts (auto) Absolute Lymphs (auto) Nucleated RBC % Differential Comment Platelet Estimate PT INR Specimen Type Sample Site pH Bicarbonate Actual POC Total CO2 Base Excess O2 Saturation O2 % ABG pCO2 ABG pO2 Gustavo Test Respiration Rate O2 Delivery Device EPAP IPAP Blood Gas Notified Whom Blood Gas Notified Time Sodium Potassium Chloride Carbon Dioxide Anion Gap BUN Creatinine Estim Creat Clear Calc Est GFR (MDRD) Af Amer Est GFR (MDRD) Non-Af BUN/Creatinine Ratio Glucose Lactic Acid 0.8 Calcium Total Bilirubin AST ALT Alkaline Phosphatase Troponin I B-Natriuretic Peptide 635.8 H Total Protein Albumin Globulin Albumin/Globulin Ratio Urine Color Yellow Urine Clarity Clear Urine pH 6.0 Ur Specific [place] 1.020 Urine Protein 15 H Urine Glucose (UA) Normal Urine Ketones Negative Urine Occult Blood 10 H Urine Nitrite Positive H Urine Bilirubin Negative Urine Urobilinogen Normal Ur Leukocyte Esterase 25 H Urine RBC 0-5 SEEN Urine WBC 5-10 SEEN Ur Squamous Epith Cells 0 SEEN Urine Bacteria 3+ Urine Mucus 0 SEEN 01/09/20 01/09/20 01/09/20 08:05 09:19 10:45 WBC RBC Hgb Hct MCV MCH MCHC RDW Std Deviation RDW Coeff of [place] Plt Count MPV Immature Gran % (Auto) Neut % (Auto) Lymph % (Auto) [place] % (Auto) Eos % (Auto) Baso % (Auto) Absolute Neuts (auto) Absolute Lymphs (auto) Nucleated RBC % Differential Comment Platelet Estimate PT INR Specimen Type ART ART Sample Site L RADIAL L RADIAL pH 7.18 L* 7.18 L* Bicarbonate Actual 35.1 H 34.5 H POC Total CO2 38 37 Base Excess 7 H 6 H O2 Saturation 92 L 96 O2 % 60 60 ABG pCO2 94.6 H* 91.9 H* ABG pO2 82 111 H Gustavo Test POS POS Respiration Rate 12 12 O2 Delivery Device Bi Pap Bi Pap EPAP 10 10 IPAP 18 18 Blood Gas Notified Whom ED MD ED MD Blood Gas Notified Time 805 919 Sodium Potassium Chloride Carbon Dioxide Anion Gap BUN Creatinine Estim Creat Clear Calc Est GFR (MDRD) Af Amer Est GFR (MDRD) Non-Af BUN/Creatinine Ratio Glucose Lactic Acid Calcium Total Bilirubin AST ALT Alkaline Phosphatase Troponin I Pending B-Natriuretic Peptide Total Protein Albumin Globulin Albumin/Globulin Ratio Urine Color Urine Clarity Urine pH Ur Specific [place] Urine Protein Urine Glucose (UA) Urine Ketones Urine Occult Blood Urine Nitrite Urine Bilirubin Urine Urobilinogen Ur Leukocyte Esterase Urine RBC Urine WBC Ur Squamous Epith Cells Urine Bacteria Urine Mucus 01/09/20 11:27 WBC RBC Hgb Hct MCV MCH MCHC RDW Std Deviation RDW Coeff of [place] Plt Count MPV Immature Gran % (Auto) Neut % (Auto) Lymph % (Auto) [place] % (Auto) Eos % (Auto) Baso % (Auto) Absolute Neuts (auto) Absolute Lymphs (auto) Nucleated RBC % Differential Comment Platelet Estimate PT INR Specimen Type Sample Site pH 7.26 L Bicarbonate Actual 35.1 H POC Total CO2 37 Base Excess 8 H O2 Saturation 89 L O2 % ABG pCO2 78.0 H* ABG pO2 67 L Gustavo Test Respiration Rate O2 Delivery Device EPAP IPAP Blood Gas Notified Whom Blood Gas Notified Time Sodium Potassium Chloride Carbon Dioxide Anion Gap BUN Creatinine Estim Creat Clear Calc Est GFR (MDRD) Af Amer Est GFR (MDRD) Non-Af BUN/Creatinine Ratio Glucose Lactic Acid Calcium Total Bilirubin AST ALT Alkaline Phosphatase Troponin I B-Natriuretic Peptide Total Protein Albumin Globulin Albumin/Globulin Ratio Urine Color Urine Clarity Urine pH Ur Specific [place] Urine Protein Urine Glucose (UA) Urine Ketones Urine Occult Blood Urine Nitrite Urine Bilirubin Urine Urobilinogen Ur Leukocyte Esterase Urine RBC Urine WBC Ur Squamous Epith Cells Urine Bacteria Urine Mucus Clinical Impression(s) from Imaging Studies Chest X-Ray 01/09/20 07:46 IMPRESSION: Status post CABG. Vascular congestion and mild CHF with small bilateral pleural effusions and bibasilar atelectasis and/or infiltrates worse on the left side. This has worsened as compared to prior study. Electronically Signed: Tutu Royal, at 8:29 EDT , Service support , Current Medications Amiodarone HCl (Cordarone) 200 mg PO DAILY [facility] Amiodarone HCl (Cordarone) 400 mg PO BID [facility] Apixaban (Eliquis) 5 mg PO BID [facility] Aspirin (Aspirin, Baby) 162 mg PO DAILY@0800 [facility] Atorvastatin Calcium (Lipitor) 80 mg PO QHS [facility] Bisacodyl (Dulcolax) 10 mg PO QHS [facility] Fluticasone Propionate (Flonase Nasal [place]) 1 spray NASAL DAILY [facility] Furosemide (Lasix) 40 mg PO BIDLX [facility] Furosemide (Lasix) 40 mg IV BID@1000,1800 [facility] Gabapentin (Neurontin) 200 mg PO DAILY [facility] Guaifenesin (Mucinex) 600 mg PO BID [facility] Nitroglycerin/Dextrose () 250 mls @ 6 mls/hr CONT INF .[id number] [facility]; Protocol Last Admin: 01/09/20 08:13 Dose: 10 mcg/min, 6 mls/hr Documented by: Vancomycin IV Pharmacy to Dose (1 ea/ Sodium Chloride) 500 mls @ 250 mls/hr IV X1 PRN; Protocol PRN Reason: Rx to Dose Piperacillin Sod/Tazobactam (Sod 3.375 gm/ Sodium Chloride) 50 mls @ 12.5 mls/hr IV Q8 [facility] Vancomycin HCl 2,000 mg/ (Sodium Chloride) 540 mls @ 250 mls/hr IV X1 ONE Stop: 01/09/20 14:09 Sodium Chloride () 250 mls @ 15 mls/hr IV .[id number] PRN PRN Reason: Saline Flush Sodium Chloride () 250 mls @ 15 mls/hr IV .[id number] PRN PRN Reason: Additional IVPB Infusion Insulin Glargine (Lantus (Bkc)) 45 units SC BID [facility] Insulin Human Lispro (Humalog Kwikpen (Bk)) 22 unit SC TIDCM [facility] Loratadine (Claritin) 5 mg PO DAILY [facility] Losartan Potassium (Cozaar) 50 mg PO DAILY [facility] Magnesium Oxide (Mag-Ox 400) 400 mg PO DAILY [facility] Metoprolol Tartrate (Lopressor (Beta Chidi)) 50 mg PO TID [facility] Non-Formulary Medication (Lidocaine [Salonpas]) 1 ea TP DAILY [facility] Non-Formulary Medication (Testosterone Cypionate) 200 mg IM X1 [facility] Polyethylene Glycol (Miralax) 17 gm PO DAILY [facility] Senna (Senokot) 1 tablet PO BID [facility] Sodium Chloride () 10 - 40 ml IV UD PRN PRN Reason: SALINE FLUSH Temazepam (Restoril) 15 mg PO QHS PRN PRN Reason: INSOMNIA Assessment/Plan RECOMMENDATIONS: 1. Broaden antimicrobials to include vancomycin and Zosyn. Check MRSA screen as well. 2. Check strep and urine Legionella antigens. COVID testing is currently pending. 3. Start scheduled diuretic therapy. 4. Transition from BiPAP to AVAPS, given suboptimal tidal volumes. Low threshold for intubation. 5. Continue amiodarone, beta-blockade and Eliquis per cardiology recommendations. IMPRESSIONS: 1. Acute combined respiratory failure Unclear precipitating etiology. However, the patient does appear to be in a state of CHF exacerbation. I cannot definitively rule out the possibility of an underlying pulmonary infectious etiology either. Therefore, the patient will remain on empiric antimicrobial therapy along with scheduled diuretics. He seems to be responding to the use of noninvasive positive pressure ventilatory support. Nevertheless, given his suboptimal tidal volumes noted on BiPAP, will transition the patient to AVAPS. Plan to obtain repeat arterial blood gas with any change in mentation. 2. Acute decompensated heart failure/troponin elevation Cardiology is currently following. Continue current medical management with amiodarone, beta-chidi and scheduled diuretic therapy. The patient will also remain on systemic anticoagulation. 3. Severe sepsis Appears to be either secondary to a urinary tract source of infection or underlying healthcare associated pneumonia. The patient is on appropriate antimicrobials at this time. Fluid resuscitation is not indicated over concerns for decompensated heart failure. The patient is currently hemodynamically stable. 4. Thrombocytosis Unclear etiology. Platelet count appears to have been increasing since the end of December. Will monitor clinically. If indicated, consultation will be obtained from hematology. 5. Hyperkalemia Continue medical management of hyperkalemia. Recheck potassium level. 6. Probable obstructive sleep apnea The patient would be considered high risk for underlying sleep disordered breathing. I would recommend an outpatient polysomnogram be completed upon discharge from the hospital. 7. Morbid obesity/hypertension/hyperlipidemia/diabetes mellitus Complicates care, management, recovery and prognosis. Hold long-acting insulin, given n.p.o. status. TIME: 65 minutes of critical care time, inclusive of procedures, was spent addressing the patient's acute combined respiratory failure, acute decompensated heart failure, severe sepsis, thrombocytosis, hyperkalemia,, review of all data and collaboration with the care team. [phone], [phone]) [phone]: [id number] Critical care first hour
--- NOTE | 2020-01-09 11:52 | CON.PCM_ITS ---
Reason for Consult Date of Consultation: 01/09/20 Reason for Consultation: Shortness of breath History of Present Illness: The patient is a 59 year old M with a known cardiac history who had undergone cardiac catheterization in November 2019. He had triple-vessel disease and underwent a cardiac bypass surgery in December 2019. He was discharged and was recently admitted to the hospital on 01/04/2020. He was noted to be dyspneic when he presented was noted to be in atrial fibrillation with a rapid ventricular response rate had evidence of respiratory distress and hypercapnia poor inspiratory effort requiring BiPAP. He was evaluated and underwent an echocardiogram which demonstrated preserved ejection fraction of 65% normal RV size and no evidence of pericardial effusion. He was treated with intravenous heparin and amiodarone and during the hospitalization developed chest pain and EKG changes necessitating an emergent cardiac catheterization. It demonstrated a patent left internal mammary artery to the left anterior descending artery, a saphenous vein graft attached to the right internal mammary artery and subsequently attached to the diagonal vessel and obtuse marginal vessels which were patent and a saphenous vein graft to the right coronary artery. The anastomotic zone was noted to have a probable moderate to severe stenosis but it was determined that it should be left on touched due to distal mild disease as well as small vessels. He recovered and was subsequently discharged. He presented back to the hospital 2 days later with shortness of breath was noted to be hypercapnic requiring BiPAP and still had elevated troponin. His EKG demonstrated atrial fibrillation with a controlled ventricular response rate no acute EKG changes were noted. Cardiology was called for further evaluation and management. [] Past Medical History Allergies/Adverse Reactions: Allergies No Known Allergies Allergy (Verified 01/09/20 07:48) Home Medications: Ambulatory Orders Medication Instructions Recorded Atorvastatin Calcium [Lipitor] 80 mg PO QHS 11/17/19 Fluticasone 0.05% [Flonase Nasal 1 spray NASAL DAILY 11/17/19 [place]] Ipratropium [place] 1 spray INHALATION DAILY 11/17/19 Levocetirizine Dihydrochloride 5 mg PO DAILY 11/17/19 Losartan Potassium 50 mg PO DAILY 11/17/19 Temazepam 15 mg PO QHS PRN 11/17/19 Testosterone Cypionate 200 mg IM X1 11/17/19 metFORMIN HCl [Glucophage] 1,000 mg PO BIDCM 11/17/19 Acetaminophen [Acetaminophen Extra 1,000 mg PO Q6H PRN PRN 01/04/20 Strength] Aspirin [Aspirin, Baby] 2 tab PO DAILY@0800 01/04/20 Bisacodyl [Dulcolax] 10 mg PO QHS 01/04/20 Gabapentin [Neurontin] 200 mg PO DAILY 01/04/20 Guaifenesin [Mucinex] 600 mg PO BID 01/04/20 Insulin Glargine [Lantus SoloStar 45 units SUBCUT BID 01/04/20 Pen] Insulin Lispro [Insulin Lispro 22 unit SQ TIDCM 01/04/20 Kwikpen U-100] Lidocaine [Salonpas] 1 ea TP DAILY 01/04/20 Magnesium Oxide 400 mg PO DAILY 01/04/20 Metoprolol Tartrate [Lopressor 50 mg PO TID 01/04/20 (beta ronen)] Oxycodone [Oxyir] 5 mg PO Q6H PRN PRN 01/04/20 Polyethylene Glycol 3350 [Miralax] 17 gm PO DAILY 01/04/20 Sennosides [Senna] 8.6 mg PO BID 01/04/20 Amiodarone HCl 200 mg PO DAILY 30 Days #30 tab 01/07/20 Amiodarone HCl [Cordarone] 400 mg PO BID 2 Days #4 tab 01/07/20 Apixaban [Eliquis] 5 mg PO BID 30 Days #60 tab 01/07/20 Furosemide [Lasix] 40 mg PO BIDLX 30 Days #60 tab 01/07/20 Past Medical History (Chronic Problems): Chronic Problems (Last Updated 12/03/19 @ 12:27 by Serena Wilson) Type 2 diabetes mellitus (Chronic) Hypercholesterolemia (Chronic) Obesity (Chronic) History of left heart catheterization (Chronic 01/04/20) 11/18/19 per [facility] @ [facility]: Triple-vessel disease involving a totally occluded dominant right coronary artery, moderately severe disease noted in the left anterior descending artery, ramus intermedius, and circumflex artery. Recommend surgical consult for revascularization. 01/04/2020:Normal Left Ventricular systolic function; LVEF: by LV gram 65 %. Elevated Left Ventricular End Diastolic Pressure. Triple vessel CAD of the RCA, LAD and LCX/OM; Widely patent ARREDONDO To LAD Widely patent composite graft of SVG attached to free ISAK, with grafts to DIAG and OM; Widely patent SVG to PDA (small) with distal 60% anastamotic narrowing; no PCI recommended given recent CABG and anastomotic narrowing perfusing a small vessel. No overt lesion that required PCI; ST elevation was most likely due to pt's cardiac supply/demand mismatch due to rapid afib and outstripping L to R collaterals to previously known occluded RCA; not a true STEMI. 01/04/20 per [facility] @ [facility] Type 2 diabetes mellitus (Chronic) Atherosclerosis of coronary artery of [place] heart without angina pectoris (Chronic) Chronic diastolic (congestive) heart failure (Chronic) Nonrheumatic aortic (valve) stenosis (Chronic) mild per echo [id number] Essential (primary) hypertension (Chronic) Surgical History: coronary bypass surgery - Four-vessel bypass surgery December 25 Psychiatric History: No pertinent psych hx - *Family History Maternal Family History: Family History (Last Updated 12/03/19 @ 12:26 by Serena Wilson) Mother Hypertension Father Hypertension Heart disease History Items: Cancer - breast cancer, Hypertension Paternal Family History: Family History (Last Updated 12/03/19 @ 12:26 by Serena Wilson) Mother Hypertension Father Hypertension Heart disease History Items: Heart Disease, Hypertension Smoking Status: Never smoker Alcohol: None Drugs: None Review of Systems - Review of Systems General: Denies: Fever, Night Sweats, Fatigue HEENT: Denies: Vision Change Cardiovascular: Reports: Shortness of Breath, Shortness of Breath at Rest, Shortness of Breath with Exertion, Peripheral Edema. Denies: Chest Discomfort, Orthopnea, PND, Palpitations, Lightheadedness, Dizziness, Near Syncope, Syncope Respiratory: Denies: Cough, Sputum Production, Hemoptysis Gastrointestinal: Denies: Indigestion, Hematemesis, Hematochezia, Melena Genitourinary: Denies: Dysuria, Hematuria Muscoloskeletal: Denies: Myalgias Skin: Denies: Rash Neurological: Denies: Dizziness Psychiatric: Denies: Anxiety Hematologic/ Lymphatic: Reports: Anemia Subjectve: Pleasant gentleman in no distress Objective: Vital Signs Temp Pulse Resp BP Pulse Ox 99.7 F H 71 21 H 145/65 H 88 01/09/20 09:50 01/09/20 10:17 01/09/20 10:17 01/09/20 09:50 01/09/20 10:17 Oxygen Delivery Method Bi-pap Weight: 321 lb 13.998 oz Body Mass Index (BMI) 45.0 Finger Stick Blood Glucose 128 Intake and Output for Last 24 Hours 01/07/20 01/08/20 01/09/20 23:59 23:59 23:59 Intake Total 50.05 / 50.05 Balance 50.05 / 50.05 General: Awake, Alert, Oriented x 3 HEENT: PERRL, EOMI, Sclera Non Icteric Neck: Supple, Good ROM, No Lymph Node Enlargement Lungs: Diminished Sam Bases Cardiovascular: Irregular Rhythm, Normal S1, Normal S2, No Murmurs, No Rubs, No Gallops Vascular: No Carotid Bruits, Normal Femoral Pulses, Normal Radial Pulses, Normal Dorsalis Pedal Pulse, Normal Posterior Tibial Pulses Abdomen: Bowel Sounds Present, Soft, Non Tender, No HSM, No Organomegaly Extremities: No Cyanosis, No Clubbing, Bilateral Edema +1 Musculoskeletal: No Erythema Skin: No Rashes Lymphatic: No Lymph Node Enlargement Neurological: No Focal Motor or Sensory Deficit Psych/Mental Status: Appropriate 01/09/20 07:45: WBC 19.2 H, RBC 3.40 L, Hgb 9.8 L, Hct 35.1 L, MCV 103.2 H D, MCH 28.8, MCHC 27.9 L, Plt Count 798 H*, MPV 9.6, Immature Gran % (Auto) 1.100 H , Neut % (Auto) 84.1 H, Lymph % (Auto) 7.3 L, [place] % (Auto) 6.9, Eos % (Auto) 0.2, Baso % (Auto) 0.4, Absolute Neuts (auto) 16.1 H, Nucleated RBC % 0 01/09/20 07:45: PT 16.7 H, INR 1.4 01/09/20 07:45: Sodium 135 L, Potassium 6.8 H*, Chloride 99, Carbon Dioxide 36.0 H, Anion Gap 0 L, BUN 35 H, Creatinine 1.22, Est GFR (MDRD) Af Amer 78, Est GFR (MDRD) Non-Af 64, BUN/Creatinine Ratio 28.7 H, Glucose 179 H, Calcium 8.8, Total Bilirubin 0.30, Troponin I 4.410 H* 01/09/20 07:45: Lactic Acid 0.8 01/09/20 07:45: B-Natriuretic Peptide 635.8 H 01/09/20 08:00: Urine Color Yellow, Urine Clarity Clear, Urine pH 6.0, Ur Specific [place] 1.020, Urine Protein 15 H, Urine Glucose (UA) Normal, Urine Ketones Negative, Urine Occult Blood 10 H, Urine Nitrite Positive H, Urine Bilirubin Negative, Urine Urobilinogen Normal, Ur Leukocyte Esterase 25 H, Urine RBC 0-5 SEEN, Urine WBC 5-10 SEEN 01/09/20 08:05: pH 7.18 L*, Bicarbonate Actual 35.1 H, POC Total CO2 38, Base Excess 7 H, O2 Saturation 92 L, ABG pCO2 94.6 H*, ABG pO2 82, Gustavo Test POS 01/09/20 09:19: pH 7.18 L*, Bicarbonate Actual 34.5 H, POC Total CO2 37, Base Excess 6 H, O2 Saturation 96, ABG pCO2 91.9 H*, ABG pO2 111 H, Gustavo Test POS 01/09/20 11:27: pH 7.26 L, Bicarbonate Actual 35.1 H, POC Total CO2 37, Base Excess 8 H, O2 Saturation 89 L, ABG pCO2 78.0 H*, ABG pO2 67 L Rhythm: EKG: Atrial fibrillation with controlled ventricular response rate. No acute changes noted ECHO: Previous echocardiogram demonstrated preserved left ventricular ejection fraction Stress Test: Cardiac Cath: PCI: CT Surgery: Holter monitor: EPS: PPM: CXR: Chest CT Scan: Assessment/Plan 1. Acute decompensated heart failure * He presents within 72 hours post discharge with a decompensation of his heart failure. The above appears to be diastolic in nature. The exact precipitating etiology is not entirely clear to me at this time. * Would recommend continuing intravenous Lasix for diuresis * Previous echocardiogram was reviewed * It does not appear that patient has had an acute ST elevation myocardial infarction but continued coronary ischemia cannot be completely excluded * Would resume beta-ronen * It appears COVID testing is pending 2. Hypertension * His blood pressure is under good control and no changes were made with respect to the above * 3. Atrial fibrillation * His ventricular response rate is controlled at this particular time. * We will continue with anticoagulation and the amiodarone * 4. Coronary artery disease * He has known coronary artery disease status post recent coronary artery bypass surgery. His bypass anatomy was recently evaluated. He does have a tenuous saphenous vein graft to the right coronary artery but it appears the distal vessel is small and intervention is not being contemplated based on his cardiac catheterization from a week ago. Will recommend aggressive medical therapy. * Continue intravenous nitrates for now * Will transition to oral nitrates * 5. Hyperlipidemia * Patient will continue with lipid-lowering risk factor modification
[2020-01-09 12:28] LABS: Blood Gas Specimen Type ART
[2020-01-09 12:29] LABS: Allen Test POS; EPAP 12; FI02 40; IPAP 24; O2 Delivery Device Bi Pap; RR 12; SITE L RADIAL; Time Given 1127
[2020-01-09] MEDS: Midazolam 2 MG/2 ML Syringe 4 MG IV (14:00)
[2020-01-09] MEDS: Etomidate 20 MG/10 ML Vial IV (14:02)
[2020-01-09] MEDS: fentaNYL drip 100 ML 5 MCG IV (14:06)
[2020-01-09] MEDS: Propofol 10MG/Ml 1,000 MG/100 ML Bottle 8.8 MG CONT INF (14:06)
--- NOTE | 2020-01-09 14:10 | NURSING ---
1340 Dr. Heaton notified patient is restless, pulling at lines/tubes and bipap, unable to redirect with diversion or leave patient in isolation with acute confusion. 1400 Pt transported to [id number] for emergent intubation per Dr. Heaton. This RN, Mauricio Perez, RN, Nidhi, RT at the bedside to assist. Pt verification done x2. 4mg IVP Versed given per Dr. Heaton's orders 1402 20mg IVP Etomidate given per Dr. Heaton's orders 1405 ETT tube inserted per Dr. Heaton, #7.5, 22 @ lip, positive color change noted, b/l breath sounds noted, tube secured with commercial tube bateman 1406 50mcg Propofol bolus via cont infusion vial given per Dr. Heaton d/t patient biting down on tube before bite block secured.
--- NOTE | 2020-01-09 14:48 | RAD_ITS ---
STUDY: X-RAY CHEST REASON FOR EXAM: Male, 59 years old. ETT PLACEMENT TECHNIQUE: Single AP portable view of the chest. COMPARISON: Comparison is made with prior radiograph done earlier in the day at 7:55 AM. FINDINGS: An endotracheal tube is in situ. The tip is at 5.9 cm proximal to the kyra. EKG electrodes are seen. Persistent vascular congestion and CHF. Blank in both breasts and angles with the bibasilar atelectasis worse on the left side. Sternal cerclage wires and vascular clips are present from a prior sternotomy and coronary artery bypass graft procedure (CABG). Cardiomegaly. Normal mediastinum and riana. Normal visualized pulmonary arteries. Normal visualized aortic arch and descending thoracic aorta. Normal visualized thoracic spine. Normal visualized ribs, clavicles, and shoulders. There is no demonstrated abnormality of the visualized soft tissue structures of the upper abdomen. RAD/Chest 1 View (Portable) IMPRESSION: Stable CHF with blunting of both costophrenic angles and bibasilar atelectasis worse on the left side. The tip of the endotracheal tube is at 5.9 cm proximal to the kyra. Electronically Signed: Tutu Royal, at 15:27 EDT , Service support ,
[2020-01-09 15:10] LABS: Anion Gap 2 (5-15); BUN 39 mg/dL (7-18); BUN/Creat Ratio 29.1 RATIO (10-20); Calcium,Total 8.4 mg/dL (8.5-10.1); Chloride 100 mmol/L (98-107); Creatinine, Serum 1.34 mg/dL (0.70-1.30); EST Glomerular Filtration Rate 58 mL/min (>60); Est Glom Filt Rate - Afr Amer 70 mL/min (>60); Estimated Creatinine Clearance 59.77 ml/min; Glucose 154 mg/dL (74-106); Sodium Level 136 mmol/L (136-145); Triglycerides 178 mg/dL
[2020-01-09 15:12] LABS: CPK Total, Creatine Kinase 123 U/L (39-308)
--- NOTE | 2020-01-09 15:18 | RAD_ITS ---
STUDY: X-RAY - ABDOMEN/PELVIS REASON FOR EXAM: Male, 59 years old. og placement TECHNIQUE: Single AP view of the abdomen / pelvis. COMPARISON: None. FINDINGS: The tip of the orogastric tube is in the body of the stomach just distal to the gastroesophageal junction. RAD/Abdomen Single View IMPRESSION: The tip of the oral gastric tube is in the body of the stomach just distal to the gastroesophageal junction. Electronically Signed: Tutu Royal, at 15:28 EDT , Service support ,
--- NOTE | 2020-01-09 15:34 | PCM.RX.CS ---
Consult Pharmacy has been consulted to manage selected antiobiotic: Vancomycin Type of Consult: New start Suspected Infection: Sepsis, Pneumonia Prior Doses of Antibiotics Received/Current Regimen: Received 2gm loading dose 01.09.20 @1430. Labs: Sodium 136 mmol/L (136-145) 01/09/20 14:25 Potassium 6.0 mmol/L (3.5-5.1) H* 01/09/20 14:25 Chloride 100 mmol/L (98-107) 01/09/20 14:25 Carbon Dioxide 34.0 mmol/L (21.0-32.0) H 01/09/20 14:25 Anion Gap 2 (5-15) L 01/09/20 14:25 BUN 39 mg/dL (7-18) H 01/09/20 14:25 Creatinine 1.34 mg/dL (0.70-1.30) H 01/09/20 14:25 Est GFR (MDRD) Af Amer 70 mL/min (>60) 01/09/20 14:25 Est GFR (MDRD) Non-Af 58 mL/min (>60) L 01/09/20 14:25 BUN/Creatinine Ratio 29.1 RATIO (10-20) H 01/09/20 14:25 Glucose 154 mg/dL (74-106) H 01/09/20 14:25 Microbiology: Microbiology 01/09/20 08:00 Urine Catheter - Catheter Legionella Antigen - Final 01/09/20 08:00 Urine Catheter - Catheter Streptococcus pneumoniae Antigen (M - Final Weight used for dosin kg Estimated Creatinine Clearance: ~60ml/min Goal Trough: 15-20 mcg/mL Pharmacy Plan for Drug Dosing: Will begin 1500mg iv q12h per pharmacokinetic protocol. Trough level ordered for before 4th total dose on 01.11.20. Pharmacy Service will continue to monitor and adjust dosing as required. Follow-Up Labs: Trough Vancomycin - .02.24@0130 before 0200 dose
--- NOTE | 2020-01-09 16:26 | CT_ITS ---
STUDY: CTA CHEST REASON FOR EXAM: Male, 59 years old. RESP FAILURE/? COVID RADIATION DOSAGE (If Supplied By Facility): CTDIvol = ( 38.11 ) mGy, DLP = ( 647.74 ) mGycm TECHNIQUE: The examination was performed with the intravenous administration of 100CC ISOVUE 370. Post-processing of the angiographic images was performed, with multiplanar reformation and 3D reconstruction. Individualized dose optimization techniques were used for this CT. COMPARISON: X-ray 01/09/2020. FINDINGS: ET tube 3.5 cm above the kyra. Nasogastric tube in the stomach. The heart and pericardium are normal. The aorta is normal in caliber. No aneurysm or dissection. There is no mediastinal mass or adenopathy. There is no hilar or axillary adenopathy. There is no evidence of pulmonary embolus. Moderate bilateral pleural effusions with upper lobe loculation on the right. Bilateral compressive atelectasis. There is no pulmonary consolidation. Visualized abdomen is unremarkable. There is no osseous abnormality. CT/CTA Chest W/WO Contrast IMPRESSION: 1. No pulmonary embolus or aortic dissection. 2. Bilateral pleural effusions. 3. No demonstrated pneumonia. Electronically Signed: Monica Worley MD at 17:56 EDT Tel , Service support ,
[2020-01-09 17:51] LABS: M R Staph aureus DNA By PCR Negative (Negative); Probe Check PASS; Specimen Processing Control PASS
[2020-01-09 19:15] LABS: Bedside Glucose 155 mg/dL (70-110)
[2020-01-09] MEDS: fentaNYL drip 100 ML 25 MCG IV (19:15)
[2020-01-09] MEDS: Dexmedetomidine 1,000 mcg in 0.9% NS 240 mL 18.3 MCG CONT INF (20:45)
[2020-01-09] MEDS: guaiFENesin 10 ML UDC (200MG/10ML) GT (23:18)
[2020-01-09] MEDS: Atorvastatin Calcium 80 MG Tablet GT (23:19)
[2020-01-09] MEDS: APIXABAN 5 MG TABLET GT (23:19)
[2020-01-09] MEDS: fentaNYL drip 100 ML 20 MCG IV (23:20)
[2020-01-10] VITALS (37 sets, daily range): BP systolic 78–168; BP diastolic 40–132; PULSE 66–121; RESP 12–33; TEMP 37.6–38.3; O2SAT 90–100; BMI 45.1
[2020-01-10 03:15] LABS: Absolute Lymphocyte Count 0.87 X10^3/uL (0.83-4.51); Absolute Neutrophil Count 10.1 X10^3/uL (2.0-7.7); Basophil# 0.06 X10^3/uL; Basophil% 0.5 % (0-1); Eosinophil# 0.09 X10^3/uL; Eosinophils% 0.7 % (0-5); Hematocrit 26.7 % (40-54); Hemoglobin 7.8 g/dL (13.0-16.5); Lymphocyte # 0.87 X10^3/ul (4.0); Lymphocyte % 7.2 % (19-41); Mean Corp Hgb Conc 29.2 g/dL (32-36); Mean Corpuscular Hgb 28.9 pg (27.0-32.0); Mean Corpuscular Volume 98.9 fL (80-94); Mean Platelet Vol. 9.9 fl (6.2-12.0); Monocyte# 0.87 X10^3/uL; Monocyte% 7.2 % (0-10); NRBC Flagged by Analyzer 0 % (0-5); Neutrophil # 10.06 X10^3/uL (2.7-7.7); Neutrophil % 83.7 % (47-70); Platelet Count 533 K/mm3 (150-450); RBC Distribution Width CV 14.2 % (11.6-14.6); RBC Distribution Width SD 50.5 fl (35.1-43.9)
[2020-01-10 03:31] LABS: Anion Gap 2 (5-15); BUN 45 mg/dL (7-18); BUN/Creat Ratio 26.5 RATIO (10-20); Calcium,Total 8.2 mg/dL (8.5-10.1); Chloride 101 mmol/L (98-107); EST Glomerular Filtration Rate 44 mL/min (>60); Est Glom Filt Rate - Afr Amer 53 mL/min (>60); Estimated Creatinine Clearance 47.12 ml/min; Glucose 146 mg/dL (74-106); Magnesium 2.4 mg/dL (1.6-2.6); Phosphorus 3.1 mg/dL (2.5-4.9); Potassium 5.3 mmol/L (3.5-5.1); Sodium Level 137 mmol/L (136-145)
--- NOTE | 2020-01-10 05:55 | PN_ITS ---
Subjective: The patient was seen and examined at the bedside this morning. Events from the last 24 hours have been reviewed. The patient is currently febrile with a T-max overnight of 101.1 ?F. The patient is hemodynamically stable on assist control mode of mechanical ventilation with an FiO2 requirement of 35% and PEEP of 5. The patient did decompensate yesterday afternoon on noninvasive positive pressure ventilatory support, requiring semi-emergent intubation. White blood cell count is improved this morning. However, hemoglobin has dropped by 2 g. Platelet count remains elevated at 533,000. Creatinine has increased to 1.7. Troponin peaked yesterday at 4.4. COVID testing is currently pending. CTA chest obtained yesterday afternoon revealed no evidence for pulmonary embolism. There was evidence of bilateral pleural effusions with some upper lobe loculation on the right side and associated compressive atelectasis. Due to issues with hypotension, the patient is currently only sedated on Precedex at 0.2 and fentanyl at 50 mcg. Objective: The patient's most recent lab work, culture data and imaging studies have all been personally reviewed. Surface echocardiogram revealed normal LV size and function with an ejection fraction of 65%. Pulmonary artery systolic pressure was estimated to be 42 mmHg. Strep and urine Legionella antigens were negative. MRSA screen was negative. Blood and urine cultures are pending. General: - - Intubated, minimally sedated and mechanically ventilated. HEENT: Atraumatic, PERRLA, Normocephalic Oral: No Gingival or Mucosal Lesions/ Ulcerations Neck: Supple, No Nodes, Trachea Midline Lungs: Diminished Cardiovascular: Normal S1, Normal S2, No murmurs, Irregular Rate Abdomen: Bowel Sounds Present, Soft, Non Tender, Obese Extremities: No clubbing, No cyanosis, Edema Skin: No breakdown Musculoskeletal: No Muscle Wasting Lymphatic: No Cervical, Supraclavicular, or Inguinal Adenopathy Neurological: - - No focal neurological deficits. Vital Signs Temp Pulse Resp BP Pulse Ox 100.3 F H 84 14 121/79 H 94 01/10/20 04:00 01/10/20 05:00 01/10/20 05:00 01/10/20 05:00 01/10/20 05:00 Oxygen Delivery Method Mechanical Ventilator Weight: 322 lb 8.58 oz Body Mass Index (BMI) 45.0 Finger Stick Blood Glucose 128 Intake and Output for Last 24 Hours 01/08/20 01/09/20 01/10/20 23:59 23:59 23:59 Intake Total 1234.32 / 1247.97 727.67 / 727.67 Output Total 1125 / 1125 Balance 109.32 / 122.97 727.67 / 727.67 Labs (Last 48 Hours) 01/09/20 01/09/20 01/09/20 07:45 07:45 07:45 WBC 19.2 H RBC 3.40 L Hgb 9.8 L Hct 35.1 L MCV 103.2 H D MCH 28.8 MCHC 27.9 L RDW Std Deviation 53.7 H RDW Coeff of [place] 14.2 Plt Count 798 H* MPV 9.6 Immature Gran % (Auto) 1.100 H Neut % (Auto) 84.1 H Lymph % (Auto) 7.3 L [place] % (Auto) 6.9 Eos % (Auto) 0.2 Baso % (Auto) 0.4 Absolute Neuts (auto) 16.1 H Absolute Lymphs (auto) 1.40 Nucleated RBC % 0 Differential Comment SCANNED Platelet Estimate MKD INC PT 16.7 H INR 1.4 Specimen Type Sample Site pH Bicarbonate Actual POC Total CO2 Base Excess O2 Saturation O2 % ABG pCO2 ABG pO2 Gustavo Test Respiration Rate O2 Delivery Device EPAP IPAP Blood Gas Notified Whom Blood Gas Notified Time Sodium 135 L Potassium 6.8 H* Chloride 99 Carbon Dioxide 36.0 H Anion Gap 0 L BUN 35 H Creatinine 1.22 Estim Creat Clear Calc 67.72 Est GFR (MDRD) Af Amer 78 Est GFR (MDRD) Non-Af 64 BUN/Creatinine Ratio 28.7 H Glucose 179 H Lactic Acid Calcium 8.8 Phosphorus Magnesium Total Bilirubin 0.30 AST 56 H ALT 101 H Alkaline Phosphatase 122 H Total Creatine Kinase Troponin I 4.410 H* B-Natriuretic Peptide Total Protein 8.0 Albumin 2.7 L Globulin 5.3 H Albumin/Globulin Ratio 0.5 L Triglycerides Urine Color Urine Clarity Urine pH Ur Specific [place] Urine Protein Urine Glucose (UA) Urine Ketones Urine Occult Blood Urine Nitrite Urine Bilirubin Urine Urobilinogen Ur Leukocyte Esterase Urine RBC Urine WBC Ur Squamous Epith Cells Urine Bacteria Urine Mucus COVID-19 ([place]) MRSA (PCR) POC Glucose 01/09/20 01/09/20 01/09/20 07:45 07:45 08:00 WBC RBC Hgb Hct MCV MCH MCHC RDW Std Deviation RDW Coeff of [place] Plt Count MPV Immature Gran % (Auto) Neut % (Auto) Lymph % (Auto) [place] % (Auto) Eos % (Auto) Baso % (Auto) Absolute Neuts (auto) Absolute Lymphs (auto) Nucleated RBC % Differential Comment Platelet Estimate PT INR Specimen Type Sample Site pH Bicarbonate Actual POC Total CO2 Base Excess O2 Saturation O2 % ABG pCO2 ABG pO2 Gustavo Test Respiration Rate O2 Delivery Device EPAP IPAP Blood Gas Notified Whom Blood Gas Notified Time Sodium Potassium Chloride Carbon Dioxide Anion Gap BUN Creatinine Estim Creat Clear Calc Est GFR (MDRD) Af Amer Est GFR (MDRD) Non-Af BUN/Creatinine Ratio Glucose Lactic Acid 0.8 Calcium Phosphorus Magnesium Total Bilirubin AST ALT Alkaline Phosphatase Total Creatine Kinase Troponin I B-Natriuretic Peptide 635.8 H Total Protein Albumin Globulin Albumin/Globulin Ratio Triglycerides Urine Color Yellow Urine Clarity Clear Urine pH 6.0 Ur Specific [place] 1.020 Urine Protein 15 H Urine Glucose (UA) Normal Urine Ketones Negative Urine Occult Blood 10 H Urine Nitrite Positive H Urine Bilirubin Negative Urine Urobilinogen Normal Ur Leukocyte Esterase 25 H Urine RBC 0-5 SEEN Urine WBC 5-10 SEEN Ur Squamous Epith Cells 0 SEEN Urine Bacteria 3+ Urine Mucus 0 SEEN COVID-19 ([place]) MRSA (PCR) POC Glucose 01/09/20 01/09/20 01/09/20 08:05 09:19 10:45 WBC RBC Hgb Hct MCV MCH MCHC RDW Std Deviation RDW Coeff of [place] Plt Count MPV Immature Gran % (Auto) Neut % (Auto) Lymph % (Auto) [place] % (Auto) Eos % (Auto) Baso % (Auto) Absolute Neuts (auto) Absolute Lymphs (auto) Nucleated RBC % Differential Comment Platelet Estimate PT INR Specimen Type ART ART Sample Site L RADIAL L RADIAL pH 7.18 L* 7.18 L* Bicarbonate Actual 35.1 H 34.5 H POC Total CO2 38 37 Base Excess 7 H 6 H O2 Saturation 92 L 96 O2 % 60 60 ABG pCO2 94.6 H* 91.9 H* ABG pO2 82 111 H Gustavo Test POS POS Respiration Rate 12 12 O2 Delivery Device Bi Pap Bi Pap EPAP 10 10 IPAP 18 18 Blood Gas Notified Whom ED MD ED MD Blood Gas Notified Time 805 919 Sodium Potassium Chloride Carbon Dioxide Anion Gap BUN Creatinine Estim Creat Clear Calc Est GFR (MDRD) Af Amer Est GFR (MDRD) Non-Af BUN/Creatinine Ratio Glucose Lactic Acid Calcium Phosphorus Magnesium Total Bilirubin AST ALT Alkaline Phosphatase Total Creatine Kinase Troponin I 3.650 H* B-Natriuretic Peptide Total Protein Albumin Globulin Albumin/Globulin Ratio Triglycerides Urine Color Urine Clarity Urine pH Ur Specific [place] Urine Protein Urine Glucose (UA) Urine Ketones Urine Occult Blood Urine Nitrite Urine Bilirubin Urine Urobilinogen Ur Leukocyte Esterase Urine RBC Urine WBC Ur Squamous Epith Cells Urine Bacteria Urine Mucus COVID-19 ([place]) MRSA (PCR) POC Glucose 01/09/20 01/09/20 01/09/20 11:27 14:25 14:25 WBC RBC Hgb Hct MCV MCH MCHC RDW Std Deviation RDW Coeff of [place] Plt Count MPV Immature Gran % (Auto) Neut % (Auto) Lymph % (Auto) [place] % (Auto) Eos % (Auto) Baso % (Auto) Absolute Neuts (auto) Absolute Lymphs (auto) Nucleated RBC % Differential Comment Platelet Estimate PT INR Specimen Type ART Sample Site L RADIAL pH 7.26 L Bicarbonate Actual 35.1 H POC Total CO2 37 Base Excess 8 H O2 Saturation 89 L O2 % 40 ABG pCO2 78.0 H* ABG pO2 67 L Gustavo Test POS Respiration Rate 12 O2 Delivery Device Bi Pap EPAP 12 IPAP 24 Blood Gas Notified Whom ICU Blood Gas Notified Time 1127 Sodium 136 Potassium 6.0 H* Chloride 100 Carbon Dioxide 34.0 H Anion Gap 2 L BUN 39 H Creatinine 1.34 H Estim Creat Clear Calc 59.77 Est GFR (MDRD) Af Amer 70 Est GFR (MDRD) Non-Af 58 L BUN/Creatinine Ratio 29.1 H Glucose 154 H Lactic Acid Calcium 8.4 L Phosphorus Magnesium Total Bilirubin AST ALT Alkaline Phosphatase Total Creatine Kinase Troponin I 3.360 H* B-Natriuretic Peptide Total Protein Albumin Globulin Albumin/Globulin Ratio Triglycerides 178 Urine Color Urine Clarity Urine pH Ur Specific [place] Urine Protein Urine Glucose (UA) Urine Ketones Urine Occult Blood Urine Nitrite Urine Bilirubin Urine Urobilinogen Ur Leukocyte Esterase Urine RBC Urine WBC Ur Squamous Epith Cells Urine Bacteria Urine Mucus COVID-19 ([place]) MRSA (PCR) Negative POC Glucose 01/09/20 01/09/20 01/09/20 14:25 14:30 19:00 WBC RBC Hgb Hct MCV MCH MCHC RDW Std Deviation RDW Coeff of [place] Plt Count MPV Immature Gran % (Auto) Neut % (Auto) Lymph % (Auto) [place] % (Auto) Eos % (Auto) Baso % (Auto) Absolute Neuts (auto) Absolute Lymphs (auto) Nucleated RBC % Differential Comment Platelet Estimate PT INR Specimen Type Sample Site pH Bicarbonate Actual POC Total CO2 Base Excess O2 Saturation O2 % ABG pCO2 ABG pO2 Gustavo Test Respiration Rate O2 Delivery Device EPAP IPAP Blood Gas Notified Whom Blood Gas Notified Time Sodium Potassium Chloride Carbon Dioxide Anion Gap BUN Creatinine Estim Creat Clear Calc Est GFR (MDRD) Af Amer Est GFR (MDRD) Non-Af BUN/Creatinine Ratio Glucose Lactic Acid Calcium Phosphorus Magnesium Total Bilirubin AST ALT Alkaline Phosphatase Total Creatine Kinase 123 Troponin I B-Natriuretic Peptide Total Protein Albumin Globulin Albumin/Globulin Ratio Triglycerides Urine Color Urine Clarity Urine pH Ur Specific [place] Urine Protein Urine Glucose (UA) Urine Ketones Urine Occult Blood Urine Nitrite Urine Bilirubin Urine Urobilinogen Ur Leukocyte Esterase Urine RBC Urine WBC Ur Squamous Epith Cells Urine Bacteria Urine Mucus COVID-19 ([place]) Pending MRSA (PCR) POC Glucose 155 H 01/10/20 01/10/20 03:00 03:00 WBC 12.0 H RBC 2.70 L Hgb 7.8 L Hct 26.7 L MCV 98.9 H MCH 28.9 MCHC 29.2 L RDW Std Deviation 50.5 H RDW Coeff of [place] 14.2 Plt Count 533 H MPV 9.9 Immature Gran % (Auto) 0.700 Neut % (Auto) 83.7 H Lymph % (Auto) 7.2 L [place] % (Auto) 7.2 Eos % (Auto) 0.7 Baso % (Auto) 0.5 Absolute Neuts (auto) 10.1 H Absolute Lymphs (auto) 0.87 Nucleated RBC % 0 Differential Comment Platelet Estimate PT INR Specimen Type Sample Site pH Bicarbonate Actual POC Total CO2 Base Excess O2 Saturation O2 % ABG pCO2 ABG pO2 Gustavo Test Respiration Rate O2 Delivery Device EPAP IPAP Blood Gas Notified Whom Blood Gas Notified Time Sodium 137 Potassium 5.3 H Chloride 101 Carbon Dioxide 34.0 H Anion Gap 2 L BUN 45 H Creatinine 1.70 H Estim Creat Clear Calc 47.12 Est GFR (MDRD) Af Amer 53 L Est GFR (MDRD) Non-Af 44 L BUN/Creatinine Ratio 26.5 H Glucose 146 H Lactic Acid Calcium 8.2 L Phosphorus 3.1 Magnesium 2.4 Total Bilirubin AST ALT Alkaline Phosphatase Total Creatine Kinase Troponin I B-Natriuretic Peptide Total Protein Albumin Globulin Albumin/Globulin Ratio Triglycerides Urine Color Urine Clarity Urine pH Ur Specific [place] Urine Protein Urine Glucose (UA) Urine Ketones Urine Occult Blood Urine Nitrite Urine Bilirubin Urine Urobilinogen Ur Leukocyte Esterase Urine RBC Urine WBC Ur Squamous Epith Cells Urine Bacteria Urine Mucus COVID-19 ([place]) MRSA (PCR) POC Glucose Microbiology 01/09/20 08:00 Urine Catheter - Catheter Legionella Antigen - Final 01/09/20 08:00 Urine Catheter - Catheter Streptococcus pneumoniae Antigen (M - Final Clinical Impression(s) from Imaging Studies Chest X-Ray 01/09/20 07:46 IMPRESSION: Status post CABG. Vascular congestion and mild CHF with small bilateral pleural effusions and bibasilar atelectasis and/or infiltrates worse on the left side. This has worsened as compared to prior study. Electronically Signed: Tutu Royal at 8:29 EDT , Service support , Chest CTA 01/09/20 16:26 IMPRESSION: 1. No pulmonary embolus or aortic dissection. 2. Bilateral pleural effusions. 3. No demonstrated pneumonia. Electronically Signed: Monica Worley MD at 17:56 EDT Tel , Service support , Medical Necessity - Tobacco Use Smoking Status: Never smoker Assessment/Plan All Active Problems (Last Updated 12/03/19 @ 12:27 by Serena Wilson) Atrial flutter with rapid ventricular response (Acute) Respiratory failure with hypoxia and hypercapnia (Acute) Atrial fibrillation with rapid ventricular response (Acute) S/P CABG x 4 (Acute) Acute exacerbation of CHF (congestive heart failure) (Resolved) RECOMMENDATIONS: 1. Continue empiric antimicrobials, pending infectious work-up. 2. Resume scheduled IV Lasix. 3. Wean FiO2 and PEEP to maintain oxygen saturations at or above 90%. 4. Continue patient on spontaneous mode of mechanical ventilation throughout t dinora. Place back on assist control for overnight support. 5. Start tube feeds today. 6. Continue appropriate ICU prophylaxis 7. Send type and screen, given anemia. IMPRESSIONS: 1. Acute combined respiratory failure Unclear precipitating etiology. However, the patient does appear to be in a state of CHF exacerbation. I cannot definitively rule out the possibility of an underlying pulmonary infectious etiology either. Therefore, the patient will remain on empiric antimicrobial therapy along with scheduled diuretics. Continue current supportive measures with invasive mechanical ventilatory support and wean FiO2 and PEEP to maintain oxygen saturations at or above 90%. Okay to begin tube feeds today. Plan for daily paired spontaneous awakening and breathing trials. 2. Acute decompensated heart failure/troponin elevation Cardiology is currently following. Continue current medical management with amiodarone, beta-ronen and scheduled diuretic therapy. The patient will also remain on systemic anticoagulation. 3. Severe sepsis Appears to be either secondary to a urinary tract source of infection or underlying healthcare associated pneumonia. The patient is on appropriate antimicrobials at this time. Fluid resuscitation is not indicated over concerns for decompensated heart failure. The patient is currently hemodynamically stable. 4. Thrombocytosis Unclear etiology. Platelet count appears to have been increasing since the end of December. Will monitor clinically. If indicated, consultation will be obtained from hematology. 5. Probable obstructive sleep apnea The patient would be considered high risk for underlying sleep disordered breathing. I would recommend an outpatient polysomnogram be completed upon discharge from the hospital. 6. Morbid obesity/hypertension/hyperlipidemia/diabetes mellitus Complicates care, management, recovery and prognosis. Continue basal and sliding scale insulin coverage. TIME: 40 minutes of critical care time, inclusive of procedures, was spent addressing the patient's acute combined respiratory failure, acute decompensated heart failure, severe sepsis, thrombocytosis, review of all data and collaboration with the care team. [id number]) [id number] Critical care first hour
[2020-01-10] MEDS: guaiFENesin 10 ML UDC (200MG/10ML) GT ×3 (06:38→17:38)
[2020-01-10] MEDS: fentaNYL drip 100 ML 5 MCG IV (06:53)
[2020-01-10] MEDS: Loratadine 10 MG Tablet 5 MG GT (08:49)
[2020-01-10] MEDS: Furosemide 40 MG/4 ML Vial IV ×2 (08:49→17:38)
[2020-01-10] MEDS: Gabapentin 100 MG Capsule 200 MG GT (08:50)
[2020-01-10] MEDS: Senna Tablet 1 TABLET GT (08:50)
[2020-01-10] MEDS: Aspirin 81 MG TAB.CHEW 162 MG GT (08:50)
[2020-01-10] MEDS: Losartan Potassium 50 MG Tablet GT (08:51)
[2020-01-10] MEDS: Amiodarone 200 MG Tablet GT (08:51)
[2020-01-10] MEDS: APIXABAN 5 MG TABLET GT ×2 (08:51→21:49)
[2020-01-10] MEDS: Magnesium Oxide 400 MG Tablet GT (08:51)
[2020-01-10] MEDS: Polyethylene Glycol 3350 17 GM PACKET GT (08:52)
[2020-01-10] MEDS: Fluticasone 0.05% 1 SPRAY NASAL.SRY NASAL (08:53)
[2020-01-10 09:25] LABS: Pathologist Review Reviewed
--- NOTE | 2020-01-10 10:17 | PCM.NTREPORT ---
Nutrition Therapy Report - History Nutrition Services has been consulted to:: Manage enteral nutrition Current diet / nutrition support order:: none ordered- intubated. - Anthropometric Measurements Height:: 5 ft 10.87 in Weight:: 146.3 kg Body Mass Index (BMI):: 45.1 - Relevant Labs Relevant Labs:: WBC 12.0 K/mm3 (4.4-11.0) H 01/10/20 03:00 RBC 2.70 M/mm3 (4.6-6.2) L 01/10/20 03:00 Hgb 7.8 g/dL (13.0-16.5) L 01/10/20 03:00 Hct 26.7 % (40-54) L 01/10/20 03:00 MCV 98.9 fL (80-94) H 01/10/20 03:00 MCHC 29.2 g/dL (32-36) L 01/10/20 03:00 RDW Std Deviation 50.5 fl (35.1-43.9) H 01/10/20 03:00 Plt Count 533 K/mm3 (150-450) H 01/10/20 03:00 Immature Gran % (Auto) 1.100 % (0.0-0.9) H 01/09/20 07:45 Neut % (Auto) 83.7 % (47-70) H 01/10/20 03:00 Lymph % (Auto) 7.2 % (19-41) L 01/10/20 03:00 Absolute Neuts (auto) 10.1 X10^3/uL (2.0-7.7) H 01/10/20 03:00 PT 16.7 SECONDS (11.7-14.9) H 01/09/20 07:45 Sodium 135 mmol/L (136-145) L 01/09/20 07:45 Potassium 5.3 mmol/L (3.5-5.1) H 01/10/20 03:00 Carbon Dioxide 34.0 mmol/L (21.0-32.0) H 01/10/20 03:00 Anion Gap 2 (5-15) L 01/10/20 03:00 BUN 45 mg/dL (7-18) H 01/10/20 03:00 Creatinine 1.70 mg/dL (0.70-1.30) H 01/10/20 03:00 Est GFR (MDRD) Af Amer 53 mL/min (>60) L 01/10/20 03:00 Est GFR (MDRD) Non-Af 44 mL/min (>60) L 01/10/20 03:00 BUN/Creatinine Ratio 26.5 RATIO (10-20) H 01/10/20 03:00 Glucose 146 mg/dL (74-106) H 01/10/20 03:00 Calcium 8.2 mg/dL (8.5-10.1) L 01/10/20 03:00 AST 56 U/L (15-37) H 01/09/20 07:45 ALT 101 U/L (16-61) H 01/09/20 07:45 Alkaline Phosphatase 122 U/L (45-117) H 01/09/20 07:45 Troponin I 3.360 ng/mL (<0.045) H* 01/09/20 14:25 B-Natriuretic Peptide 635.8 pg/mL (0-100) H 01/09/20 07:45 Albumin 2.7 g/dL (3.2-5.0) L 01/09/20 07:45 Globulin 5.3 g/dL (2.2-4.2) H 01/09/20 07:45 Albumin/Globulin Ratio 0.5 RATIO (0.9-2.4) L 01/09/20 07:45 - Assessment Food / Nutrition-Related History:: Discussed in ICU rounds. Pt intubated yesterday. OG in place. Currently in isolation pending COVID-19 testing. No plans for extubation today. Wt increase of 0.3 kg since last review. Has BLE 2+ pitting edema per nursing documentation. Pt familiar to this scientific technical writer from recent admission. During 01/04/20 admission- reported UBW as 310# w/ wt gain since CABG. Was SMBG 3-4x/day w/ high blood sugars since CABG. - Nutrition Diagnosis Problem / Etiology / Signs & Symptoms (PES):: Inadequate oral intake related to intubation as evidenced by no PO intake/nutrition support >24 hours Evidence of Malnutrition Exists:: No - Nutrition Intervention Nutrition Prescription:: 8089-8769 calories/day, 154-192 g protein/day - Food / Nutrient Delivery Interventions Summary of nutrition intervention:: Will order enteral nutrition support. Estimated nutritional needs using ASPEN guidelines for critically ill obese patients: 3265-6111 calories/day (11-14 calories/kg current wt) and 154-194 g protein/day (2-2.5 g protein/kg ideal body wt (77kg)). Nutrition support ordered as / adjusted to:: Vital AF 1.2 via OG at goal rate of 70mL/hour w/ 100mL H2O flush every 4 hours to provide 2016 calories, 126 g protein, and 1962mL total fluid/day. Would start tube feeds at 20mL/hour and increase by 15mL every 8 to 12 hours as pt tolerates until goal rate achieved. Nutrition education provided?: No - MNT Monitoring Further MNT monitoring and evaluation required?: Yes MNT Follow-up in:: 1-2 days
--- NOTE | 2020-01-10 10:23 | CASEMGMT ---
RN CM Readmission Note Previous Admission: 01/03-01/07/20 Diagnosis: CHF AFIB RVR (pt had CABG in November @ [facility], neg heart cath 01/03 @ [facility]) DC Disposition: Home w/HHC through [facility] Home Care and Home oxygen through [facility], [place] Current Admission Presentation: Respiratory Failure with intubatio/ventilator support. CHF, pneumonia, COVID-19 testing Intro role of CM and purpose of RN CM assessment to via phone. is able to assist with readmission assessment. states pt was having increasing shortness of breath. Pt was compliant with medications and home oxygen. She states pt would weigh daily, but did not have more than 2# weight gain. states [facility] nurse did visit one time prior to admission. [facility]: [facility] Call to notify pt is here and they request notification on dc along with dc summary and instructions. Resume order placed. PH: . FX: Patient DC goals: Home on discharge, resume Home Health. DC PLAN: undetermined. Pt on ventilator @ this time. Alok HAWKINSN RN ACM
--- NOTE | 2020-01-10 12:06 | PCM.PN.HOSP ---
Reason for Visit: Shortness of breath, acute hypoxic and hypercarbic combined respiratory failure, acute decompensated heart failure and severe sepsis Objective: Patient still having fever, T-max 101 Fahrenheit yesterday 4 PM and still 100.5 Fahrenheit. Patient was intubated. Respiratory rate 27. Blood pressure 111/51. Vitals/I&O's: Vital Signs Temp Pulse Resp BP Pulse Ox 100.2 F H 98 20 H 127/83 H 96 01/10/20 11:00 01/10/20 11:00 01/10/20 11:00 01/10/20 11:00 01/10/20 11:00 Oxygen Delivery Method Mechanical Ventilator Weight: 322 lb 8.58 oz Body Mass Index (BMI) 45.1 Finger Stick Blood Glucose 128 Intake and Output for Last 24 Hours 01/08/20 01/09/20 01/10/20 23:59 23:59 23:59 Intake Total 1234.32 / 1247.97 845.32 / 845.32 Output Total 1125 / 1125 450 / 450 Balance 109.32 / 122.97 395.32 / 395.32 General: - - Intubated. HEENT: Atraumatic, PERRLA, EOMI, Normocephalic, - - ET and OG tube Neck: Supple, No JVD, Negative Carotid Bruits Lungs: No wheeze, No rales, Diminished, Rhonchi Cardiovascular: Regular rate, Regular Rhythm, Normal S1, Normal S2, No murmurs Abdomen: Bowel Sounds Present, Soft, Non Tender, Non-Distended Extremities: No edema, Capillary Refill Less than 3 Seconds Musculoskeletal: Arthritic Changes Neurological: - - Neuro exam unobtainable because of Intubation and sedation Microbiology Past 72 Hours 01/10/20 06:45 Sputum, Tracheal Aspirate Gram Stain - Final 01/09/20 08:00 Urine Catheter - Catheter Urine Culture - Preliminary GNR lactose line leader 01/09/20 08:00 Urine Catheter - Catheter Legionella Antigen - Final 01/09/20 08:00 Urine Catheter - Catheter Streptococcus pneumoniae Antigen (M - Final Laboratory Results 01/09/20 07:45: Diff Path Review Reviewed 01/09/20 10:45: Troponin I 3.650 H* 01/09/20 11:27: Specimen Type ART, Sample Site L RADIAL, pH 7.26 L, Bicarbonate Actual 35.1 H, POC Total CO2 37, Base Excess 8 H, O2 Saturation 89 L, O2 % 40, ABG pCO2 78.0 H*, ABG pO2 67 L, Gustavo Test POS, Respiration Rate 12, O2 Delivery Device Bi Pap, EPAP 12, IPAP 24, Blood Gas Notified Whom ICU , Blood Gas Notified Time 1127 01/09/20 14:25: Sodium 136, Potassium 6.0 H*, Chloride 100, Carbon Dioxide 34.0 H, Anion Gap 2 L, BUN 39 H, Creatinine 1.34 H, Estim Creat Clear Calc 59.77, Est GFR (MDRD) Af Amer 70, Est GFR (MDRD) Non-Af 58 L, BUN/Creatinine Ratio 29.1 H, Glucose 154 H, Calcium 8.4 L, Troponin I 3.360 H*, Triglycerides 178 01/09/20 14:25: MRSA (PCR) Negative 01/09/20 14:25: Total Creatine Kinase 123 01/09/20 14:30: COVID-19 ([place]) Pending 01/09/20 19:00: POC Glucose 155 H 01/10/20 03:00: WBC 12.0 H, RBC 2.70 L, Hgb 7.8 L, Hct 26.7 L, MCV 98.9 H, MCH 28.9, MCHC 29.2 L, RDW Std Deviation 50.5 H, RDW Coeff of Clayton 14.2, Plt Count 533 H, MPV 9.9, Immature Gran % (Auto) 0.700, Neut % (Auto) 83.7 H, Lymph % (Auto) 7.2 L, Cook % (Auto) 7.2, Eos % (Auto) 0.7, Baso % (Auto) 0.5, Absolute Neuts (auto) 10.1 H, Absolute Lymphs (auto) 0.87, Nucleated RBC % 0 01/10/20 03:00: Sodium 137, Potassium 5.3 H, Chloride 101, Carbon Dioxide 34.0 H, Anion Gap 2 L, BUN 45 H, Creatinine 1.70 H, Estim Creat Clear Calc 47.12, Est GFR (MDRD) Af Amer 53 L, Est GFR (MDRD) Non-Af 44 L, BUN/Creatinine Ratio 26.5 H, Glucose 146 H, Calcium 8.2 L, Phosphorus 3.1, Magnesium 2.4 01/10/20 08:30: Blood Type O POSITIVE, Antibody Screen NEGATIVE Current Medications Acetaminophen (Tylenol) 650 mg RECTAL Q6H PRN PRN PRN Reason: FEVER Amiodarone HCl (Cordarone) 200 mg GT DAILY [facility] Last Admin: 01/10/20 08:51 Dose: 200 mg Documented by: Apixaban (Eliquis) 5 mg GT BID [facility] Last Admin: 01/10/20 08:51 Dose: 5 mg Documented by: Aspirin (Aspirin, Baby) 162 mg GT DAILY@0800 [facility] Last Admin: 01/10/20 08:50 Dose: 162 mg Documented by: Atorvastatin Calcium (Lipitor) 80 mg GT QHS [facility] Last Admin: 01/09/20 23:19 Dose: 80 mg Documented by: Bisacodyl (Dulcolax) 10 mg PO QHS [facility] Last Admin: 01/09/20 22:43 Dose: Not Given Documented by: Fluticasone Propionate (Flonase Nasal [place]) 1 spray NASAL DAILY [facility] Last Admin: 01/10/20 08:53 Dose: 1 spray Documented by: Furosemide (Lasix) 40 mg IV BID@1000,1800 [facility] Last Admin: 01/10/20 08:49 Dose: 40 mg Documented by: Gabapentin (Neurontin) 200 mg GT DAILYCM [facility] Last Admin: 01/10/20 08:50 Dose: 200 mg Documented by: Guaifenesin (Robitussin) 10 ml GT Q6 [facility] Last Admin: 01/10/20 06:38 Dose: 10 ml Documented by: Vancomycin IV Pharmacy to Dose (1 ea/ Sodium Chloride) 500 mls @ 250 mls/hr IV PRN PRN; Protocol PRN Reason: Rx to Dose Piperacillin Sod/Tazobactam (Sod 3.375 gm/ Sodium Chloride) 50 mls @ 12.5 mls/hr IV Q8 [facility] Last Infusion: 01/10/20 11:23 Dose: Infused Documented by: Sodium Chloride () 250 mls @ 15 mls/hr IV .[id number] PRN PRN Reason: Saline Flush Sodium Chloride () 250 mls @ 15 mls/hr IV .[id number] PRN PRN Reason: Additional IVPB Infusion Fentanyl () 100 mls @ 5 mls/hr IV UD [facility]; Protocol Last Titration: 01/10/20 11:00 Dose: 50 mcg/hr, 5 mls/hr Documented by: Vancomycin HCl 1,500 mg/ (Sodium Chloride) 530 mls @ 250 mls/hr IV Q12H [facility] Last Infusion: 01/10/20 05:55 Dose: Infused Documented by: Dexmedetomidine HCl 1,000 mcg/ (Sodium Chloride) 250 mls @ 18.25 mls/hr CONT INF .[id number] [facility]; Protocol Last Titration: 01/10/20 11:00 Dose: 0.2 mcg/kg/hr, 7.3 mls/hr Documented by: Enteral Nutritional Formula (Vital Af 1.2 Alli Liquid) 1,000 mls @ 70 mls/hr GT .[id number] [facility] Insulin Glargine (Lantus ([facility])) 45 units SC BID@0800,1700 [facility] Last Admin: 01/10/20 10:07 Dose: Not Given Documented by: Insulin Human Lispro (Humalog Kwikpen ([facility])) 22 unit SC TIDCM [facility] Last Admin: 01/10/20 10:06 Dose: Not Given Documented by: Lidocaine (Lidoderm Patch) 1 patch TOPICAL DAILY PRN PRN Reason: PAIN 1-06/16 Loratadine (Claritin) 5 mg GT DAILY [facility] Last Admin: 01/10/20 08:49 Dose: 5 mg Documented by: Losartan Potassium (Cozaar) 50 mg GT DAILY [facility] Last Admin: 01/10/20 08:51 Dose: 50 mg Documented by: Magnesium Oxide (Mag-Ox 400) 400 mg GT DAILY [facility] Last Admin: 01/10/20 08:51 Dose: 400 mg Documented by: Metoprolol Tartrate (Lopressor (Beta Chidi)) 50 mg GT TID [facility] Last Admin: 01/10/20 04:04 Dose: Not Given Documented by: Polyethylene Glycol (Miralax) 17 gm GT DAILY [facility] Last Admin: 01/10/20 08:52 Dose: 17 gm Documented by: Senna (Senokot) 1 tablet GT BID [facility] Last Admin: 01/10/20 08:50 Dose: 1 tablet Documented by: Sodium Chloride () 10 - 40 ml IV UD PRN PRN Reason: SALINE FLUSH Temazepam (Restoril) 15 mg GT QHS PRN PRN Reason: INSOMNIA STROKE Vital Signs/Narrative: Vital Signs Temp Pulse Resp BP Pulse Ox 01/10/20 11:00 100.2 F H 98 20 H 127/83 H 96 01/10/20 10:00 99.9 F H 90 18 114/90 H 95 01/10/20 09:00 100.1 F H 91 20 H 120/55 L 95 Medical Necessity - Tobacco Use Smoking Status: Never smoker Assessment/Plan All Active Problems (Last Updated 12/03/19 @ 12:27 by Serena Wilson) Atrial flutter with rapid ventricular response (Acute) Respiratory failure with hypoxia and hypercapnia (Acute) Atrial fibrillation with rapid ventricular response (Acute) S/P CABG x 4 (Acute) Acute exacerbation of CHF (congestive heart failure) (Resolved) This is a 59-year-old admitted with a complaint of acute onset shortness of breath and mild fever. 1. Acute hypoxic and hypercapnic respiratory failure status post intubation: Currently patient is on 35% FiO2, PEEP 5. Vent management as per soyfreeze operator. ABG 7.26/78/67 on BiPAP 24/12 on 40% FiO2 on 01/09/2020. 2. Severe sepsis possible secondary to healthcare associated pneumonia or UTI: On IV vancomycin and Zosyn. Patient was discharged 2 days ago. Chest x-ray independently reviewed and shows vascular congestion and mild CHF with small bilateral pleural effusion, bibasilar atelectasis and/or infiltrate worse on the left side. Patient has leukocytosis and thrombocytosis which is improving. UA shows WBC 5-10 cells, positive nitrite and LE 25. 3+ bacteria. Urine culture shows preliminary more than 100,000 gram-negative flavio lactose line leader. Micky antigens are negative. COVID test pending. Gram stain of sputum culture shows 3+ WBC, rare gram-negative rods. Lactic acid normal. 3. Nonstemi with history of coronary artery disease status post CAB.4, trended down to 3.3. Seems secondary to demand ischemia from severe hypoxia. Patient recently had a cath few days ago showed patent graft and did not require PCI. Troponin was up to 4.4. This is likely due to demand ischemia from severe hypoxia. Patient recently had a cath a few days ago which showed patent grafts and did not require PCI. System Operator on board. On Lipitor and atorvastatin. On aspirin, Eliquis, metoprolol, losartan. 4. Acute on chronic HFpEF BNP was around 635. Continue IV Lasix 40 mg twice daily. Monitor intake and output. Fluid restrictions 1500 cc daily. 5. Hyperkalemia: K was 6.8. Patient had Kayexalate. Repeat K5.3. 6 Type 2 diabetes mellitus: on lantus. ISS. Accuchecks ACHS 7 Chronic A. fib: Currently rate controlled. On amiodarone and metoprolol as well as Eliquis 8 DVT prophylaxis: Already on Eliquis CODE STATUS: Full code Active Medications Acetaminophen (Tylenol) 650 mg RECTAL Q6H PRN PRN PRN Reason: FEVER Amiodarone HCl (Cordarone) 200 mg GT DAILY [facility] Last Admin: 01/10/20 08:51 Dose: 200 mg Documented by: Apixaban (Eliquis) 5 mg GT BID [facility] Last Admin: 01/10/20 08:51 Dose: 5 mg Documented by: Aspirin (Aspirin, Baby) 162 mg GT DAILY@0800 [facility] Last Admin: 01/10/20 08:50 Dose: 162 mg Documented by: Atorvastatin Calcium (Lipitor) 80 mg GT QHS [facility] Last Admin: 01/09/20 23:19 Dose: 80 mg Documented by: Bisacodyl (Dulcolax) 10 mg PO QHS [facility] Last Admin: 01/09/20 22:43 Dose: Not Given Documented by: Fluticasone Propionate (Flonase Nasal [place]) 1 spray NASAL DAILY [facility] Last Admin: 01/10/20 08:53 Dose: 1 spray Documented by: Furosemide (Lasix) 40 mg IV BID@1000,1800 [facility] Last Admin: 01/10/20 08:49 Dose: 40 mg Documented by: Gabapentin (Neurontin) 200 mg GT DAILYCM [facility] Last Admin: 01/10/20 08:50 Dose: 200 mg Documented by: Guaifenesin (Robitussin) 10 ml GT Q6 [facility] Last Admin: 01/10/20 13:08 Dose: 10 ml Documented by: Vancomycin IV Pharmacy to Dose (1 ea/ Sodium Chloride) 500 mls @ 250 mls/hr IV PRN PRN; Protocol PRN Reason: Rx to Dose Piperacillin Sod/Tazobactam (Sod 3.375 gm/ Sodium Chloride) 50 mls @ 12.5 mls/hr IV Q8 [facility] Last Admin: 01/10/20 13:05 Dose: 12.5 mls/hr Documented by: Sodium Chloride () 250 mls @ 15 mls/hr IV .[id number] PRN PRN Reason: Saline Flush Sodium Chloride () 250 mls @ 15 mls/hr IV .[id number] PRN PRN Reason: Additional IVPB Infusion Fentanyl () 100 mls @ 5 mls/hr IV UD [facility]; Protocol Last Titration: 01/10/20 15:00 Dose: 50 mcg/hr, 5 mls/hr Documented by: Vancomycin HCl 1,500 mg/ (Sodium Chloride) 530 mls @ 250 mls/hr IV Q12H [facility] Last Infusion: 01/10/20 15:29 Dose: Infused Documented by: Dexmedetomidine HCl 1,000 mcg/ (Sodium Chloride) 250 mls @ 18.25 mls/hr CONT INF .[id number] [facility]; Protocol Last Titration: 01/10/20 15:05 Dose: 0.01 mcg/kg/hr, 0.2 mls/hr Documented by: Enteral Nutritional Formula (Vital Af 1.2 Alli Liquid) 1,000 mls @ 70 mls/hr GT .[id number] [facility] Last Admin: 01/10/20 13:08 Dose: 70 mls/hr Documented by: Insulin Glargine (Lantus ([facility])) 45 units SC BID@0800,1700 [facility] Last Admin: 01/10/20 10:07 Dose: Not Given Documented by: Insulin Human Lispro (Humalog Kwikpen ([facility])) 22 unit SC TIDCM [facility] Last Admin: 01/10/20 13:09 Dose: 22 u Documented by: Lidocaine (Lidoderm Patch) 1 patch TOPICAL DAILY PRN PRN Reason: PAIN 1-06/16 Loratadine (Claritin) 5 mg GT DAILY [facility] Last Admin: 01/10/20 08:49 Dose: 5 mg Documented by: Losartan Potassium (Cozaar) 50 mg GT DAILY [facility] Last Admin: 01/10/20 08:51 Dose: 50 mg Documented by: Magnesium Oxide (Mag-Ox 400) 400 mg GT DAILY [facility] Last Admin: 01/10/20 08:51 Dose: 400 mg Documented by: Metoprolol Tartrate (Lopressor (Beta Chidi)) 50 mg GT TID [facility] Last Admin: 01/10/20 12:53 Dose: Not Given Documented by: Polyethylene Glycol (Miralax) 17 gm GT DAILY [facility] Last Admin: 01/10/20 08:52 Dose: 17 gm Documented by: Merritt (Senokot) 1 tablet GT BID [facility] Last Admin: 01/10/20 08:50 Dose: 1 tablet Documented by: Sodium Chloride () 10 - 40 ml IV UD PRN PRN Reason: SALINE FLUSH Temazepam (Restoril) 15 mg GT QHS PRN PRN Reason: INSOMNIA Inpatient E&M: 80550 Subs Hosp L3
[2020-01-10] MEDS: Vital AF 1.2 Cal Liquid 1,000 ML 70 ML GT (13:08)
[2020-01-10] MEDS: Insulin Lispro 100 UNIT/ML INSULN.PEN 22 UNIT SC ×2 (13:09→17:38)
[2020-01-10 17:25] LABS: Bedside Glucose 164 mg/dL (70-110)
[2020-01-10 17:50] LABS: Bedside Glucose 160 mg/dL (70-110)
[2020-01-10] MEDS: Dexmedetomidine 1,000 mcg in 0.9% NS 240 mL 3.7 MCG CONT INF (20:46)
[2020-01-10] MEDS: Atorvastatin Calcium 80 MG Tablet GT (21:49)
[2020-01-10] MEDS: Metoprolol Tartrate 50 MG Tablet GT (21:49)
[2020-01-11] VITALS (37 sets, daily range): BP systolic 95–187; BP diastolic 31–108; PULSE 71–122; RESP 12–31; TEMP 37.7–38; O2SAT 92–100
[2020-01-11] MEDS: guaiFENesin 10 ML UDC (200MG/10ML) GT ×3 (00:07→11:04)
[2020-01-11 00:11] LABS: Bedside Glucose 76 mg/dL (70-110)
[2020-01-11 01:47] LABS: Vancomycin, Trough Level 16.8 ug/mL (5.0-15.0)
[2020-01-11] MEDS: fentaNYL drip 100 ML 5 MCG IV (02:07)
--- NOTE | 2020-01-11 02:09 | PHA.PHARE_ITS ---
Consult Pharmacy has been consulted to manage selected antiobiotic: Vancomycin Type of Consult: Follow-up Suspected Infection: Sepsis, Pneumonia Prior Doses of Antibiotics Received/Current Regimen: Medications Vancomycin HCl 1,500 mg/ (Sodium Chloride) 530 mls @ 250 mls/hr IV Q12H [facility] Last Admin: 01/11/20 02:05 Dose: 250 mls/hr Labs: Sodium 137 mmol/L (136-145) 01/10/20 03:00 Potassium 5.3 mmol/L (3.5-5.1) H 01/10/20 03:00 Chloride 101 mmol/L (98-107) 01/10/20 03:00 Carbon Dioxide 34.0 mmol/L (21.0-32.0) H 01/10/20 03:00 Anion Gap 2 (5-15) L 01/10/20 03:00 BUN 45 mg/dL (7-18) H 01/10/20 03:00 Creatinine 1.70 mg/dL (0.70-1.30) H 01/10/20 03:00 Est GFR (MDRD) Af Amer 53 mL/min (>60) L 01/10/20 03:00 Est GFR (MDRD) Non-Af 44 mL/min (>60) L 01/10/20 03:00 BUN/Creatinine Ratio 26.5 RATIO (10-20) H 01/10/20 03:00 Glucose 146 mg/dL (74-106) H 01/10/20 03:00 Vancomycin Trough 16.8 ug/mL (5.0-15.0) H 01/11/20 01:00 Microbiology: Microbiology 01/10/20 06:45 Sputum, Tracheal Aspirate Gram Stain - Final 01/09/20 08:00 Urine Catheter - Catheter Urine Culture - Preliminary GNR lactose teacher of the handicapped 01/09/20 08:00 Urine Catheter - Catheter Legionella Antigen - Final 01/09/20 08:00 Urine Catheter - Catheter Streptococcus pneumoniae Antigen (M - Final Weight used for dosin kg Estimated Creatinine Clearance: 47 Goal Trough: 15-20 mcg/mL Pharmacy Plan for Drug Dosing: Vancomycin trough was 16.8, within target range of 15-20. Will continue same dosing and re-draw trough 01/14/20. Pharmacy Service will continue to monitor and adjust dosing as required. Follow-Up Labs: Trough Vancomycin Labs to be done on [date and time ordered]: 01/14/20 @[id number]
[2020-01-11 02:54] LABS: Absolute Lymphocyte Count 1.22 X10^3/uL (0.83-4.51); Absolute Neutrophil Count 11.5 X10^3/uL (2.0-7.7); Basophil# 0.07 X10^3/uL; Basophil% 0.5 % (0-1); Eosinophil# 0.09 X10^3/uL; Eosinophils% 0.6 % (0-5); Lymphocyte # 1.22 X10^3/ul (4.0); Lymphocyte % 8.6 % (19-41); Mean Corp Hgb Conc 29.6 g/dL (32-36); Mean Corpuscular Hgb 28.6 pg (27.0-32.0); Mean Corpuscular Volume 96.4 fL (80-94); Mean Platelet Vol. 9.5 fl (6.2-12.0); Monocyte# 1.11 X10^3/uL; Monocyte% 7.9 % (0-10); NRBC Flagged by Analyzer 0 % (0-5); Neutrophil # 11.51 X10^3/uL (2.7-7.7); Neutrophil % 81.6 % (47-70); Platelet Count 596 K/mm3 (150-450); RBC Distribution Width CV 14.2 % (11.6-14.6); RBC Distribution Width SD 50.4 fl (35.1-43.9); White Blood Count 14.1 K/mm3 (4.4-11.0)
[2020-01-11 03:08] LABS: ALB/GLOB Ratio 0.4 RATIO (0.9-2.4); AST(SGOT) 51 U/L (15-37); Alanine Aminotransfer ALT/SGPT 76 U/L (16-61); Alkaline Phosphatase 95 U/L (45-117); Anion Gap 5 (5-15); BUN 42 mg/dL (7-18); BUN/Creat Ratio 31.1 RATIO (10-20); Calcium,Total 7.8 mg/dL (8.5-10.1); Chloride 103 mmol/L (98-107); Creatinine, Serum 1.35 mg/dL (0.70-1.30); EST Glomerular Filtration Rate 57 mL/min (>60); Est Glom Filt Rate - Afr Amer 69 mL/min (>60); Estimated Creatinine Clearance 59.33 ml/min; Ferritin 682 ng/mL (26-388); Globulin 4.6 g/dL (2.2-4.2); Glucose 90 mg/dL (74-106); Protein, Total 6.6 g/dL (6.4-8.2); Sodium Level 141 mmol/L (136-145)
[2020-01-11 05:35] LABS: Bedside Glucose 94 mg/dL (70-110)
[2020-01-11] MEDS: Metoprolol Tartrate 50 MG Tablet GT (05:39)
--- NOTE | 2020-01-11 05:57 | PN_ITS ---
Subjective: The patient was seen and examined at the bedside this morning. Events from the last 24 hours have been reviewed. The patient continues to have low-grade fevers, but remains hemodynamically stable. The patient passed his spontaneous awakening and breathing trials this morning. He is currently documented to be overall net -348 mL's for the hospital admission. COVID testing is still pending. The patient remains on twice daily scheduled IV Lasix, along with vancomycin and Zosyn. The patient is currently alert on pressure support mode mechanical ventilation. He is following commands appropriately. Objective: The patient's most recent lab work, culture data and imaging studies have all been personally reviewed. Surface echocardiogram revealed normal LV size and function with an ejection fraction of 65%. Pulmonary artery systolic pressure was estimated to be 42 mmHg. Strep and urine Legionella antigens were negative. MRSA screen was negative. Blood and urine cultures are pending. General: Alert, Cooperative, No apparent distress, - - Remains intubated and mechanically ventilated. HEENT: Atraumatic, PERRLA, Normocephalic Oral: No Gingival or Mucosal Lesions/ Ulcerations, - - Endotracheal and OG tubes remain in place. Neck: Supple, No Nodes, Trachea Midline Lungs: No rhonchi, No wheeze, No rales, Diminished Cardiovascular: Normal S1, Normal S2, No murmurs, Irregular Rate Abdomen: Bowel Sounds Present, Soft, Non Tender, Distended, Obese Extremities: No clubbing, No cyanosis, Edema Skin: No breakdown Musculoskeletal: No Muscle Wasting Lymphatic: No Cervical, Supraclavicular, or Inguinal Adenopathy Neurological: - - No focal neurological deficits. Currently alert and following commands appropriately. Vital Signs Temp Pulse Resp BP Pulse Ox 100.0 F H 101 H 22 H 157/66 H 99 01/11/20 05:00 01/11/20 05:39 01/11/20 05:00 01/11/20 05:39 01/11/20 05:00 Oxygen Delivery Method Mechanical Ventilator Weight: 322 lb 8.58 oz Body Mass Index (BMI) 45.1 Finger Stick Blood Glucose 128 Intake and Output for Last 24 Hours 01/09/20 01/10/20 01/11/20 23:59 23:59 23:59 Intake Total 1234.32 / 1247.97 1513.25 / 1581.12 678.97 / 678.97 Output Total 1125 / 1125 2200 / 2200 450 / 450 Balance 109.32 / 122.97 -686.75 / -618.88 228.97 / 228.97 Labs (Last 48 Hours) 01/09/20 01/09/20 01/09/20 07:45 07:45 07:45 WBC 19.2 H RBC 3.40 L Hgb 9.8 L Hct 35.1 L MCV 103.2 H D MCH 28.8 MCHC 27.9 L RDW Std Deviation 53.7 H RDW Coeff of [place] 14.2 Plt Count 798 H* MPV 9.6 Immature Gran % (Auto) 1.100 H Neut % (Auto) 84.1 H Lymph % (Auto) 7.3 L [place] % (Auto) 6.9 Eos % (Auto) 0.2 Baso % (Auto) 0.4 Absolute Neuts (auto) 16.1 H Absolute Lymphs (auto) 1.40 Nucleated RBC % 0 Differential Comment SCANNED Diff Path Review Reviewed Platelet Estimate MKD INC PT 16.7 H INR 1.4 Specimen Type Sample Site pH Bicarbonate Actual POC Total CO2 Base Excess O2 Saturation O2 % ABG pCO2 ABG pO2 Gustavo Test Respiration Rate O2 Delivery Device EPAP IPAP Blood Gas Notified Whom Blood Gas Notified Time Sodium 135 L Potassium 6.8 H* Chloride 99 Carbon Dioxide 36.0 H Anion Gap 0 L BUN 35 H Creatinine 1.22 Estim Creat Clear Calc 67.72 Est GFR (MDRD) Af Amer 78 Est GFR (MDRD) Non-Af 64 BUN/Creatinine Ratio 28.7 H Glucose 179 H Lactic Acid Calcium 8.8 Phosphorus Magnesium Ferritin Total Bilirubin 0.30 AST 56 H ALT 101 H Alkaline Phosphatase 122 H Total Creatine Kinase Troponin I 4.410 H* C-React Prot Ext Range B-Natriuretic Peptide Total Protein 8.0 Albumin 2.7 L Globulin 5.3 H Albumin/Globulin Ratio 0.5 L Triglycerides Urine Color Urine Clarity Urine pH Ur Specific [place] Urine Protein Urine Glucose (UA) Urine Ketones Urine Occult Blood Urine Nitrite Urine Bilirubin Urine Urobilinogen Ur Leukocyte Esterase Urine RBC Urine WBC Ur Squamous Epith Cells Urine Bacteria Urine Mucus Vancomycin Trough COVID-19 ([place]) MRSA (PCR) POC Glucose Blood Type Antibody Screen 01/09/20 01/09/20 01/09/20 07:45 07:45 08:00 WBC RBC Hgb Hct MCV MCH MCHC RDW Std Deviation RDW Coeff of [place] Plt Count MPV Immature Gran % (Auto) Neut % (Auto) Lymph % (Auto) [place] % (Auto) Eos % (Auto) Baso % (Auto) Absolute Neuts (auto) Absolute Lymphs (auto) Nucleated RBC % Differential Comment Diff Path Review Platelet Estimate PT INR Specimen Type Sample Site pH Bicarbonate Actual POC Total CO2 Base Excess O2 Saturation O2 % ABG pCO2 ABG pO2 Gustavo Test Respiration Rate O2 Delivery Device EPAP IPAP Blood Gas Notified Whom Blood Gas Notified Time Sodium Potassium Chloride Carbon Dioxide Anion Gap BUN Creatinine Estim Creat Clear Calc Est GFR (MDRD) Af Amer Est GFR (MDRD) Non-Af BUN/Creatinine Ratio Glucose Lactic Acid 0.8 Calcium Phosphorus Magnesium Ferritin Total Bilirubin AST ALT Alkaline Phosphatase Total Creatine Kinase Troponin I C-React Prot Ext Range B-Natriuretic Peptide 635.8 H Total Protein Albumin Globulin Albumin/Globulin Ratio Triglycerides Urine Color Yellow Urine Clarity Clear Urine pH 6.0 Ur Specific [place] 1.020 Urine Protein 15 H Urine Glucose (UA) Normal Urine Ketones Negative Urine Occult Blood 10 H Urine Nitrite Positive H Urine Bilirubin Negative Urine Urobilinogen Normal Ur Leukocyte Esterase 25 H Urine RBC 0-5 SEEN Urine WBC 5-10 SEEN Ur Squamous Epith Cells 0 SEEN Urine Bacteria 3+ Urine Mucus 0 SEEN Vancomycin Trough COVID-19 ([place]) MRSA (PCR) POC Glucose Blood Type Antibody Screen 01/09/20 01/09/20 01/09/20 08:05 09:19 10:45 WBC RBC Hgb Hct MCV MCH MCHC RDW Std Deviation RDW Coeff of [place] Plt Count MPV Immature Gran % (Auto) Neut % (Auto) Lymph % (Auto) [place] % (Auto) Eos % (Auto) Baso % (Auto) Absolute Neuts (auto) Absolute Lymphs (auto) Nucleated RBC % Differential Comment Diff Path Review Platelet Estimate PT INR Specimen Type ART ART Sample Site L RADIAL L RADIAL pH 7.18 L* 7.18 L* Bicarbonate Actual 35.1 H 34.5 H POC Total CO2 38 37 Base Excess 7 H 6 H O2 Saturation 92 L 96 O2 % 60 60 ABG pCO2 94.6 H* 91.9 H* ABG pO2 82 111 H Gustavo Test POS POS Respiration Rate 12 12 O2 Delivery Device Bi Pap Bi Pap EPAP 10 10 IPAP 18 18 Blood Gas Notified Whom ED ED Blood Gas Notified Time 805 919 Sodium Potassium Chloride Carbon Dioxide Anion Gap BUN Creatinine Estim Creat Clear Calc Est GFR (MDRD) Af Amer Est GFR (MDRD) Non-Af BUN/Creatinine Ratio Glucose Lactic Acid Calcium Phosphorus Magnesium Ferritin Total Bilirubin AST ALT Alkaline Phosphatase Total Creatine Kinase Troponin I 3.650 H* C-React Prot Ext Range B-Natriuretic Peptide Total Protein Albumin Globulin Albumin/Globulin Ratio Triglycerides Urine Color Urine Clarity Urine pH Ur Specific [place] Urine Protein Urine Glucose (UA) Urine Ketones Urine Occult Blood Urine Nitrite Urine Bilirubin Urine Urobilinogen Ur Leukocyte Esterase Urine RBC Urine WBC Ur Squamous Epith Cells Urine Bacteria Urine Mucus Vancomycin Trough COVID-19 ([place]) MRSA (PCR) POC Glucose Blood Type Antibody Screen 01/09/20 01/09/20 01/09/20 11:27 14:25 14:25 WBC RBC Hgb Hct MCV MCH MCHC RDW Std Deviation RDW Coeff of [place] Plt Count MPV Immature Gran % (Auto) Neut % (Auto) Lymph % (Auto) [place] % (Auto) Eos % (Auto) Baso % (Auto) Absolute Neuts (auto) Absolute Lymphs (auto) Nucleated RBC % Differential Comment Diff Path Review Platelet Estimate PT INR Specimen Type ART Sample Site L RADIAL pH 7.26 L Bicarbonate Actual 35.1 H POC Total CO2 37 Base Excess 8 H O2 Saturation 89 L O2 % 40 ABG pCO2 78.0 H* ABG pO2 67 L Gustavo Test POS Respiration Rate 12 O2 Delivery Device Bi Pap EPAP 12 IPAP 24 Blood Gas Notified Whom ICU Blood Gas Notified Time 1127 Sodium 136 Potassium 6.0 H* Chloride 100 Carbon Dioxide 34.0 H Anion Gap 2 L BUN 39 H Creatinine 1.34 H Estim Creat Clear Calc 59.77 Est GFR (MDRD) Af Amer 70 Est GFR (MDRD) Non-Af 58 L BUN/Creatinine Ratio 29.1 H Glucose 154 H Lactic Acid Calcium 8.4 L Phosphorus Magnesium Ferritin Total Bilirubin AST ALT Alkaline Phosphatase Total Creatine Kinase Troponin I 3.360 H* C-React Prot Ext Range B-Natriuretic Peptide Total Protein Albumin Globulin Albumin/Globulin Ratio Triglycerides 178 Urine Color Urine Clarity Urine pH Ur Specific [place] Urine Protein Urine Glucose (UA) Urine Ketones Urine Occult Blood Urine Nitrite Urine Bilirubin Urine Urobilinogen Ur Leukocyte Esterase Urine RBC Urine WBC Ur Squamous Epith Cells Urine Bacteria Urine Mucus Vancomycin Trough COVID-19 ([place]) MRSA (PCR) Negative POC Glucose Blood Type Antibody Screen 01/09/20 01/09/20 01/09/20 14:25 14:30 19:00 WBC RBC Hgb Hct MCV MCH MCHC RDW Std Deviation RDW Coeff of [place] Plt Count MPV Immature Gran % (Auto) Neut % (Auto) Lymph % (Auto) [place] % (Auto) Eos % (Auto) Baso % (Auto) Absolute Neuts (auto) Absolute Lymphs (auto) Nucleated RBC % Differential Comment Diff Path Review Platelet Estimate PT INR Specimen Type Sample Site pH Bicarbonate Actual POC Total CO2 Base Excess O2 Saturation O2 % ABG pCO2 ABG pO2 Gustavo Test Respiration Rate O2 Delivery Device EPAP IPAP Blood Gas Notified Whom Blood Gas Notified Time Sodium Potassium Chloride Carbon Dioxide Anion Gap BUN Creatinine Estim Creat Clear Calc Est GFR (MDRD) Af Amer Est GFR (MDRD) Non-Af BUN/Creatinine Ratio Glucose Lactic Acid Calcium Phosphorus Magnesium Ferritin Total Bilirubin AST ALT Alkaline Phosphatase Total Creatine Kinase 123 Troponin I C-React Prot Ext Range B-Natriuretic Peptide Total Protein Albumin Globulin Albumin/Globulin Ratio Triglycerides Urine Color Urine Clarity Urine pH Ur Specific [place] Urine Protein Urine Glucose (UA) Urine Ketones Urine Occult Blood Urine Nitrite Urine Bilirubin Urine Urobilinogen Ur Leukocyte Esterase Urine RBC Urine WBC Ur Squamous Epith Cells Urine Bacteria Urine Mucus Vancomycin Trough COVID-19 ([place]) Pending MRSA (PCR) POC Glucose 155 H Blood Type Antibody Screen 01/10/20 01/10/20 01/10/20 03:00 03:00 08:30 WBC 12.0 H RBC 2.70 L Hgb 7.8 L Hct 26.7 L MCV 98.9 H MCH 28.9 MCHC 29.2 L RDW Std Deviation 50.5 H RDW Coeff of [place] 14.2 Plt Count 533 H MPV 9.9 Immature Gran % (Auto) 0.700 Neut % (Auto) 83.7 H Lymph % (Auto) 7.2 L [place] % (Auto) 7.2 Eos % (Auto) 0.7 Baso % (Auto) 0.5 Absolute Neuts (auto) 10.1 H Absolute Lymphs (auto) 0.87 Nucleated RBC % 0 Differential Comment Diff Path Review Platelet Estimate PT INR Specimen Type Sample Site pH Bicarbonate Actual POC Total CO2 Base Excess O2 Saturation O2 % ABG pCO2 ABG pO2 Gustavo Test Respiration Rate O2 Delivery Device EPAP IPAP Blood Gas Notified Whom Blood Gas Notified Time Sodium 137 Potassium 5.3 H Chloride 101 Carbon Dioxide 34.0 H Anion Gap 2 L BUN 45 H Creatinine 1.70 H Estim Creat Clear Calc 47.12 Est GFR (MDRD) Af Amer 53 L Est GFR (MDRD) Non-Af 44 L BUN/Creatinine Ratio 26.5 H Glucose 146 H Lactic Acid Calcium 8.2 L Phosphorus 3.1 Magnesium 2.4 Ferritin Total Bilirubin AST ALT Alkaline Phosphatase Total Creatine Kinase Troponin I C-React Prot Ext Range B-Natriuretic Peptide Total Protein Albumin Globulin Albumin/Globulin Ratio Triglycerides Urine Color Urine Clarity Urine pH Ur Specific [place] Urine Protein Urine Glucose (UA) Urine Ketones Urine Occult Blood Urine Nitrite Urine Bilirubin Urine Urobilinogen Ur Leukocyte Esterase Urine RBC Urine WBC Ur Squamous Epith Cells Urine Bacteria Urine Mucus Vancomycin Trough COVID-19 ([place]) MRSA (PCR) POC Glucose Blood Type O POSITIVE Antibody Screen NEGATIVE 01/10/20 01/10/20 01/10/20 13:02 17:34 23:59 WBC RBC Hgb Hct MCV MCH MCHC RDW Std Deviation RDW Coeff of [place] Plt Count MPV Immature Gran % (Auto) Neut % (Auto) Lymph % (Auto) [place] % (Auto) Eos % (Auto) Baso % (Auto) Absolute Neuts (auto) Absolute Lymphs (auto) Nucleated RBC % Differential Comment Diff Path Review Platelet Estimate PT INR Specimen Type Sample Site pH Bicarbonate Actual POC Total CO2 Base Excess O2 Saturation O2 % ABG pCO2 ABG pO2 Gustavo Test Respiration Rate O2 Delivery Device EPAP IPAP Blood Gas Notified Whom Blood Gas Notified Time Sodium Potassium Chloride Carbon Dioxide Anion Gap BUN Creatinine Estim Creat Clear Calc Est GFR (MDRD) Af Amer Est GFR (MDRD) Non-Af BUN/Creatinine Ratio Glucose Lactic Acid Calcium Phosphorus Magnesium Ferritin Total Bilirubin AST ALT Alkaline Phosphatase Total Creatine Kinase Troponin I C-React Prot Ext Range B-Natriuretic Peptide Total Protein Albumin Globulin Albumin/Globulin Ratio Triglycerides Urine Color Urine Clarity Urine pH Ur Specific [place] Urine Protein Urine Glucose (UA) Urine Ketones Urine Occult Blood Urine Nitrite Urine Bilirubin Urine Urobilinogen Ur Leukocyte Esterase Urine RBC Urine WBC Ur Squamous Epith Cells Urine Bacteria Urine Mucus Vancomycin Trough COVID-19 ([place]) MRSA (PCR) POC Glucose 164 H 160 H 76 Blood Type Antibody Screen 01/11/20 01/11/2020 01:00 02:40 02:40 WBC 14.1 H RBC 2.80 L Hgb 8.0 L Hct 27.0 L MCV 96.4 H MCH 28.6 MCHC 29.6 L RDW Std Deviation 50.4 H RDW Coeff of [place] 14.2 Plt Count 596 H MPV 9.5 Immature Gran % (Auto) 0.800 Neut % (Auto) 81.6 H Lymph % (Auto) 8.6 L [place] % (Auto) 7.9 Eos % (Auto) 0.6 Baso % (Auto) 0.5 Absolute Neuts (auto) 11.5 H Absolute Lymphs (auto) 1.22 Nucleated RBC % 0 Differential Comment Diff Path Review Platelet Estimate PT INR Specimen Type Sample Site pH Bicarbonate Actual POC Total CO2 Base Excess O2 Saturation O2 % ABG pCO2 ABG pO2 Gustavo Test Respiration Rate O2 Delivery Device EPAP IPAP Blood Gas Notified Whom Blood Gas Notified Time Sodium 141 Potassium 4.0 Chloride 103 Carbon Dioxide 33.0 H Anion Gap 5 BUN 42 H Creatinine 1.35 H Estim Creat Clear Calc 59.33 Est GFR (MDRD) Af Amer 69 Est GFR (MDRD) Non-Af 57 L BUN/Creatinine Ratio 31.1 H Glucose 90 Lactic Acid Calcium 7.8 L Phosphorus Magnesium Ferritin 682 H Total Bilirubin 0.60 AST 51 H ALT 76 H Alkaline Phosphatase 95 Total Creatine Kinase Troponin I C-React Prot Ext Range 141.00 H B-Natriuretic Peptide Total Protein 6.6 Albumin 2.0 L Globulin 4.6 H Albumin/Globulin Ratio 0.4 L Triglycerides Urine Color Urine Clarity Urine pH Ur Specific [place] Urine Protein Urine Glucose (UA) Urine Ketones Urine Occult Blood Urine Nitrite Urine Bilirubin Urine Urobilinogen Ur Leukocyte Esterase Urine RBC Urine WBC Ur Squamous Epith Cells Urine Bacteria Urine Mucus Vancomycin Trough 16.8 H COVID-19 ([place]) MRSA (PCR) POC Glucose Blood Type Antibody Screen 01/11/20 05:26 WBC RBC Hgb Hct MCV MCH MCHC RDW Std Deviation RDW Coeff of [place] Plt Count MPV Immature Gran % (Auto) Neut % (Auto) Lymph % (Auto) [place] % (Auto) Eos % (Auto) Baso % (Auto) Absolute Neuts (auto) Absolute Lymphs (auto) Nucleated RBC % Differential Comment Diff Path Review Platelet Estimate PT INR Specimen Type Sample Site pH Bicarbonate Actual POC Total CO2 Base Excess O2 Saturation O2 % ABG pCO2 ABG pO2 Gustavo Test Respiration Rate O2 Delivery Device EPAP IPAP Blood Gas Notified Whom Blood Gas Notified Time Sodium Potassium Chloride Carbon Dioxide Anion Gap BUN Creatinine Estim Creat Clear Calc Est GFR (MDRD) Af Amer Est GFR (MDRD) Non-Af BUN/Creatinine Ratio Glucose Lactic Acid Calcium Phosphorus Magnesium Ferritin Total Bilirubin AST ALT Alkaline Phosphatase Total Creatine Kinase Troponin I C-React Prot Ext Range B-Natriuretic Peptide Total Protein Albumin Globulin Albumin/Globulin Ratio Triglycerides Urine Color Urine Clarity Urine pH Ur Specific [place] Urine Protein Urine Glucose (UA) Urine Ketones Urine Occult Blood Urine Nitrite Urine Bilirubin Urine Urobilinogen Ur Leukocyte Esterase Urine RBC Urine WBC Ur Squamous Epith Cells Urine Bacteria Urine Mucus Vancomycin Trough COVID-19 ([place]) MRSA (PCR) POC Glucose 94 Blood Type Antibody Screen Microbiology 01/10/20 06:45 Sputum, Tracheal Aspirate Gram Stain - Final 01/09/20 08:00 Urine Catheter - Catheter Urine Culture - Preliminary GNR lactose filter helper 01/09/20 08:00 Urine Catheter - Catheter Legionella Antigen - Final 01/09/20 08:00 Urine Catheter - Catheter Streptococcus pneumoniae Antigen (M - Final Clinical Impression(s) from Imaging Studies Chest X-Ray 01/09/20 07:46 IMPRESSION: Status post CABG. Vascular congestion and mild CHF with small bilateral pleural effusions and bibasilar atelectasis and/or infiltrates worse on the left side. This has worsened as compared to prior study. Electronically Signed: Tutu Royal, at 8:29 EDT , Service support , Chest X-Ray 01/09/20 14:48 IMPRESSION: Stable CHF with blunting of both costophrenic angles and bibasilar atelectasis worse on the left side. The tip of the endotracheal tube is at 5.9 cm proximal to the kyra. Electronically Signed: Tutu Royal, at 15:27 EDT , Service support , KUB X-Ray 01/09/20 15:18 IMPRESSION: The tip of the oral gastric tube is in the body of the stomach just distal to the gastroesophageal junction. Electronically Signed: Tutu Lele, at 15:28 EDT , Service support , Chest CTA 01/09/20 16:26 IMPRESSION: 1. No pulmonary embolus or aortic dissection. 2. Bilateral pleural effusions. 3. No demonstrated pneumonia. Electronically Signed: Monica Worley MD at 17:56 EDT Tel , Service support , Medical Necessity - Tobacco Use Smoking Status: Never smoker Assessment/Plan All Active Problems (Last Updated 12/03/19 @ 12:27 by Serena Wilson) Atrial flutter with rapid ventricular response (Acute) Respiratory failure with hypoxia and hypercapnia (Acute) Atrial fibrillation with rapid ventricular response (Acute) S/P CABG x 4 (Acute) Acute exacerbation of CHF (congestive heart failure) (Resolved) RECOMMENDATIONS: 1. Proceed with a trial of extubation this morning. Once extubated, wean supplemental oxygen to maintain saturations at or above 90%. 2. Perform bedside swallow evaluation and advance diet accordingly. 3. Recommend empiric BiPAP utilization with naps and nightly. 4. Continue Zosyn. We will plan to discontinue vancomycin today. 5. Continue scheduled IV Lasix. 6. Continue appropriate ICU prophylaxis. 7. Encourage incentive spirometer use once extubated and mobilize patient as tolerated. IMPRESSIONS: 1. Acute combined respiratory failure Unclear precipitating etiology. However, the patient does appear to be in a state of CHF exacerbation. I cannot definitively rule out the possibility of an underlying pulmonary infectious etiology either. Therefore, the patient will remain on empiric antimicrobial therapy along with scheduled diuretics. Continue current supportive measures with invasive mechanical ventilatory support and wean FiO2 and PEEP to maintain oxygen saturations at or above 90%. The patient is currently a candidate for a trial of extubation. 2. Acute decompensated heart failure/troponin elevation Cardiology is currently following. Continue current medical management with amiodarone, beta-ronen and scheduled diuretic therapy. The patient will also remain on systemic anticoagulation. 3. Severe sepsis Appears to be either secondary to a urinary tract source of infection or underlying healthcare associated pneumonia. The patient is on appropriate antimicrobials at this time. Fluid resuscitation is not indicated over concerns for decompensated heart failure. The patient is currently hemodynamically stable. 4. Thrombocytosis Unclear etiology. Platelet count appears to have been increasing since the end of December. Will monitor clinically. If indicated, consultation will be obtained from hematology. 5. Probable obstructive sleep apnea The patient would be considered high risk for underlying sleep disordered breathing. I would recommend an outpatient polysomnogram be completed upon discharge from the hospital. 6. Morbid obesity/hypertension/hyperlipidemia/diabetes mellitus Complicates care, management, recovery and prognosis. Continue basal and sliding scale insulin coverage. TIME: 40 minutes of critical care time, inclusive of procedures, was spent addressing the patient's acute combined respiratory failure, acute decompensated heart failure, severe sepsis, thrombocytosis, review of all data and collaboration with the care team. [id number]) [phone] Critical care first hour
--- NOTE | 2020-01-11 09:30 | CASEMGMT ---
RN PARVEEN Note: Participated in ICU interdisciplinary rounding. Pt has been extubated and is now w/O2 via N/C @ 2 L/M. PT/OT to work with pt today. CM will continue to follow and assist with transition of care. Christelle BSN RN CM
[2020-01-11] MEDS: Aspirin 81 MG TAB.CHEW 162 MG GT (10:59)
[2020-01-11] MEDS: Gabapentin 100 MG Capsule 200 MG GT (11:01)
[2020-01-11] MEDS: Loratadine 10 MG Tablet 5 MG GT (11:02)
[2020-01-11] MEDS: Amiodarone 200 MG Tablet GT (11:02)
[2020-01-11] MEDS: Losartan Potassium 50 MG Tablet GT (11:03)
[2020-01-11] MEDS: Fluticasone 0.05% 1 SPRAY NASAL.SRY NASAL (11:03)
[2020-01-11] MEDS: APIXABAN 5 MG TABLET GT (11:03)
[2020-01-11] MEDS: Magnesium Oxide 400 MG Tablet GT (11:04)
[2020-01-11] MEDS: Furosemide 40 MG/4 ML Vial IV ×2 (11:04→17:09)
[2020-01-11 11:30] LABS: Bedside Glucose 118 mg/dL (70-110)
[2020-01-11] MEDS: Albuterol 2.5 MG/3 ML VIAL.NEB. INHALATION ×3 (13:20→21:50)
--- NOTE | 2020-01-11 13:47 | PCM.PN.HOSP ---
Reason for Visit: Acute hypoxic respiratory failure Low-grade fever, T-max 100.8 Fahrenheit Vitals/I&O's: Vital Signs Temp Pulse Resp BP Pulse Ox 99.9 F H 122 H 25 H 164/69 H 98 01/11/20 12:00 01/11/20 13:20 01/11/20 13:20 01/11/20 13:00 01/11/20 13:00 Oxygen Flow Rate (L/min) 2 Oxygen Delivery Method Nasal Cannula Weight: 322 lb 8.58 oz Body Mass Index (BMI) 45.1 Finger Stick Blood Glucose 128 Intake and Output for Last 24 Hours 01/09/20 01/10/20 01/11/20 23:59 23:59 23:59 Intake Total 1234.32 / 1247.97 1513.25 / 1581.12 968.97 / 968.97 Output Total 1125 / 1125 2200 / 2200 800 / 800 Balance 109.32 / 122.97 -686.75 / -618.88 168.97 / 168.97 General: Alert, Oriented x3, Cooperative HEENT: Atraumatic, PERRLA, EOMI, Normocephalic Oral: - - Was extubated. Neck: Supple, No JVD, Negative Carotid Bruits Lungs: Diminished, Rhonchi, - - On rescue BiPAP as needed Cardiovascular: Regular rate, Regular Rhythm, Normal S1, Normal S2, No murmurs Abdomen: Bowel Sounds Present, Soft, Non Tender, Non-Distended Extremities: Capillary Refill Less than 3 Seconds, Edema Skin: No rashes, No breakdown Musculoskeletal: No Tenderness to Palpation of Joints or Extremities, Arthritic Changes Neurological: Cranial nerves II-XII grossly intact, Deep Tendon Reflexes 2+/4 and Symmetrical, Neuro grossly intact Psych/Mental Status: Normal Affect, Appropriate Microbiology Past 72 Hours 01/10/20 06:45 Sputum, Tracheal Aspirate Gram Stain - Final 01/10/20 06:45 Sputum, Tracheal Aspirate Respiratory Culture - Preliminary Culture exhibits no growth. 01/09/20 07:45 Blood Culture (Wb) - Anticubital Left Blood Culture - Preliminary No growth in 48 hours. 01/09/20 07:45 Blood Culture (Wb) - Anticubital Right Blood Culture - Preliminary No growth in 48 hours. 01/09/20 08:00 Urine Catheter - Catheter Urine Culture - Final Klebsiella pneumoniae sp pneum 01/09/20 08:00 Urine Catheter - Catheter Legionella Antigen - Final 01/09/20 08:00 Urine Catheter - Catheter Streptococcus pneumoniae Antigen (M - Final Laboratory Results 01/09/20 14:30: COVID-19 ([place]) Not Detected 01/10/20 13:02: POC Glucose 164 H 01/10/20 17:34: POC Glucose 160 H 01/10/20 23:59: POC Glucose 76 01/11/20 01:00: Vancomycin Trough 16.8 H 01/11/20 02:40: WBC 14.1 H, RBC 2.80 L, Hgb 8.0 L, Hct 27.0 L, MCV 96.4 H, MCH 28.6, MCHC 29.6 L, RDW Std Deviation 50.4 H, RDW Coeff of [place] 14.2, Plt Count 596 H, MPV 9.5, Immature Gran % (Auto) 0.800, Neut % (Auto) 81.6 H, Lymph % (Auto) 8.6 L, Ector % (Auto) 7.9, Eos % (Auto) 0.6, Baso % (Auto) 0.5, Absolute Neuts (auto) 11.5 H, Absolute Lymphs (auto) 1.22, Nucleated RBC % 0 01/11/20 02:40: Sodium 141, Potassium 4.0, Chloride 103, Carbon Dioxide 33.0 H, Anion Gap 5, BUN 42 H, Creatinine 1.35 H, Estim Creat Clear Calc 59.33, Est GFR (MDRD) Af Amer 69, Est GFR (MDRD) Non-Af 57 L, BUN/Creatinine Ratio 31.1 H, Glucose 90, Calcium 7.8 L, Ferritin 682 H, Total Bilirubin 0.60, AST 51 H, ALT 76 H, Alkaline Phosphatase 95, C-React Prot Ext Range 141.00 H, Total Protein 6.6, Albumin 2.0 L, Globulin 4.6 H, Albumin/Globulin Ratio 0.4 L 01/11/20 05:26: POC Glucose 94 01/11/20 10:56: POC Glucose 118 H Current Medications Acetaminophen (Tylenol) 650 mg RECTAL Q6H PRN PRN PRN Reason: FEVER Albuterol Sulfate (Ventolin Aerosols) 2.5 mg INHALATION Q2H PRN PRN PRN Reason: SOB &/OR WHEEZING Last Admin: 01/11/20 13:20 Dose: 2.5 mg Documented by: Amiodarone HCl (Cordarone) 200 mg PO DAILY [facility] Apixaban (Eliquis) 5 mg PO BID [facility] Aspirin (Aspirin, Baby) 162 mg PO DAILY@0800 [facility] Atorvastatin Calcium (Lipitor) 80 mg PO QHS [facility] Bisacodyl (Dulcolax) 10 mg PO QHS [facility] Last Admin: 01/10/20 21:33 Dose: Not Given Documented by: Fluticasone Propionate (Flonase Nasal [place]) 1 spray NASAL DAILY [facility] Last Admin: 01/11/20 11:03 Dose: 1 spray Documented by: Furosemide (Lasix) 40 mg IV BID@1000,1800 [facility] Last Admin: 01/11/20 11:04 Dose: 40 mg Documented by: Gabapentin (Neurontin) 200 mg [facility] Guaifenesin (Mucinex) 600 mg PO BID [facility] Piperacillin Sod/Tazobactam (Sod 3.375 gm/ Sodium Chloride) 50 mls @ 12.5 mls/hr IV Q8 [facility] Last Infusion: 01/11/20 09:39 Dose: Infused Documented by: Sodium Chloride () 250 mls @ 15 mls/hr IV .[id number] PRN PRN Reason: Saline Flush Sodium Chloride () 250 mls @ 15 mls/hr IV .[id number] PRN PRN Reason: Additional IVPB Infusion Insulin Glargine (Lantus ([facility])) 45 units SC BID@0800,1700 [facility] Last Admin: 01/11/20 11:01 Dose: Not Given Documented by: Insulin Human Lispro (Humalog Kwikpen ([facility])) 22 unit SC TIDCM [facility] Last Admin: 01/11/20 11:50 Dose: Not Given Documented by: Lidocaine (Lidoderm Patch) 1 patch TOPICAL DAILY PRN PRN Reason: PAIN 1-06/16 Loratadine (Claritin) 5 mg PO DAILY [facility] Losartan Potassium (Cozaar) 50 mg PO DAILY [facility] Magnesium Oxide (Mag-Ox 400) 400 mg PO DAILY [facility] Metoprolol Tartrate (Lopressor (Beta Chidi)) 50 mg PO TID [facility] Polyethylene Glycol (Miralax) 17 gm PO DAILY [facility] Senna (Senokot) 1 tablet PO BID [facility] Sodium Chloride () 10 - 40 ml IV UD PRN PRN Reason: SALINE FLUSH Temazepam (Restoril) 15 mg PO QHS PRN PRN Reason: INSOMNIA STROKE Vital Signs/Narrative: Vital Signs Temp Pulse Resp BP BP Pulse Ox 01/11/20 13:20 122 H 25 H 01/11/20 13:00 109 H 31 H 164/69 H 98 01/11/20 12:01 115 H 01/11/20 12:00 99.9 F H 109 H 30 H 141/69 H 98 01/11/20 11:00 100.1 F H 112 H 22 H 187/72 H 94 01/11/20 10:00 100.1 F H 106 H 28 H 164/69 H 95 Medical Necessity - Tobacco Use Smoking Status: Never smoker Assessment/Plan All Active Problems (Last Updated 12/03/19 @ 12:27 by Serena Wilson) Atrial flutter with rapid ventricular response (Acute) Respiratory failure with hypoxia and hypercapnia (Acute) Atrial fibrillation with rapid ventricular response (Acute) S/P CABG x 4 (Acute) Acute exacerbation of CHF (congestive heart failure) (Resolved) This is a 59-year-old admitted with a complaint of acute onset shortness of breath and mild fever. 1. Acute hypoxic and hypercapnic respiratory failure status post intubation: Currently patient is on 35% FiO2, PEEP 5. Vent management as per train crew member. ABG 7.26/78/67 on BiPAP 24/12 on 40% FiO2 on 01/09/2020. 5/6: Patient is extubated on supplemental oxygen. BiPAP rescue therapy as needed. 2. Severe sepsis possible secondary to healthcare associated pneumonia or UTI: On IV vancomycin and Zosyn. Patient was discharged 2 days ago. Chest x-ray independently reviewed and shows vascular congestion and mild CHF with small bilateral pleural effusion, bibasilar atelectasis and/or infiltrate worse on the left side. Patient has leukocytosis and thrombocytosis which is improving. UA shows WBC 5-10 cells, positive nitrite and LE 25. 3+ bacteria. 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 Urinary antigens are negative. COVID test pending. Gram stain of sputum culture shows 3+ WBC, rare gram-negative rods. Lactic acid normal. 5/6: Continue IV antibiotic. Urine culture Klebsiella pneumoniae. Sputum culture, tracheal aspirate preliminary shows no growth. Blood cultures no growth for more than 48 hours. Leukocytosis improving. 3. Nonstemi with history of coronary artery disease status post CAB.4, trended down to 3.3. Seems secondary to demand ischemia from severe hypoxia. Patient recently had a cath few days ago showed patent graft and did not require PCI. Troponin was up to 4.4. This is likely due to demand ischemia from severe hypoxia. Patient recently had a cath a few days ago which showed patent grafts and did not require PCI. Eyelet Maker on board. On Lipitor and atorvastatin. On aspirin, Eliquis, metoprolol, losartan. 4. Acute on chronic HFpEF BNP was around 635. Continue IV Lasix 40 mg twice daily. Monitor intake and output. Fluid restrictions 1500 cc daily. 5/6: Echo reported as normal LV size with EF 65%. Mild to moderate TR, PASP 42 mmHg 5. Hyperkalemia: K was 6.8. Patient had Kayexalate. Repeat K5.3. 6 Type 2 diabetes mellitus: on lantus. ISS. Accuchecks ACHS 7 Chronic A. fib: Currently rate controlled. On amiodarone and metoprolol as well as Eliquis 8 normocytic normochromic anemia, acute on chronic: Stool for occult blood ordered. Hemoglobin dropped from 9.8-8.0. DVT prophylaxis: Already on Eliquis CODE STATUS: Full code Microbiology Past 72 Hours 01/10/20 06:45 Sputum, Tracheal Aspirate Gram Stain - Final 01/10/20 06:45 Sputum, Tracheal Aspirate Respiratory Culture - Preliminary Culture exhibits no growth. 01/09/20 07:45 Blood Culture (Wb) - Anticubital Left Blood Culture - Preliminary No growth in 48 hours. 01/09/20 07:45 Blood Culture (Wb) - Anticubital Right Blood Culture - Preliminary No growth in 48 hours. 01/09/20 08:00 Urine Catheter - Catheter Urine Culture - Final Klebsiella pneumoniae sp pneum 01/09/20 08:00 Urine Catheter - Catheter Legionella Antigen - Final 01/09/20 08:00 Urine Catheter - Catheter Streptococcus pneumoniae Antigen (M - Final Laboratory Results 01/09/20 14:30: COVID-19 ([place]) Not Detected 01/10/20 13:02: POC Glucose 164 H 01/10/20 17:34: POC Glucose 160 H 01/10/20 23:59: POC Glucose 76 01/11/20 01:00: Vancomycin Trough 16.8 H 01/11/20 02:40: WBC 14.1 H, RBC 2.80 L, Hgb 8.0 L, Hct 27.0 L, MCV 96.4 H, MCH 28.6, MCHC 29.6 L, RDW Std Deviation 50.4 H, RDW Coeff of [place] 14.2, Plt Count 596 H, MPV 9.5, Immature Gran % (Auto) 0.800, Neut % (Auto) 81.6 H, Lymph % (Auto) 8.6 L, Ector % (Auto) 7.9, Eos % (Auto) 0.6, Baso % (Auto) 0.5, Absolute Neuts (auto) 11.5 H, Absolute Lymphs (auto) 1.22, Nucleated RBC % 0 01/11/20 02:40: Sodium 141, Potassium 4.0, Chloride 103, Carbon Dioxide 33.0 H, Anion Gap 5, BUN 42 H, Creatinine 1.35 H, Estim Creat Clear Calc 59.33, Est GFR (MDRD) Af Amer 69, Est GFR (MDRD) Non-Af 57 L, BUN/Creatinine Ratio 31.1 H, Glucose 90, Calcium 7.8 L, Ferritin 682 H, Total Bilirubin 0.60, AST 51 H, ALT 76 H, Alkaline Phosphatase 95, C-React Prot Ext Range 141.00 H, Total Protein 6.6, Albumin 2.0 L, Globulin 4.6 H, Albumin/Globulin Ratio 0.4 L 01/11/20 05:26: POC Glucose 94 01/11/20 10:56: POC Glucose 118 H Active Medications Acetaminophen (Tylenol) 650 mg RECTAL Q6H PRN PRN PRN Reason: FEVER Albuterol Sulfate (Ventolin Aerosols) 2.5 mg INHALATION Q2H PRN PRN PRN Reason: SOB &/OR WHEEZING Last Admin: 01/11/20 13:20 Dose: 2.5 mg Documented by: Amiodarone HCl (Cordarone) 200 mg PO DAILY [facility] Apixaban (Eliquis) 5 mg PO BID [facility] Aspirin (Aspirin, Baby) 162 mg PO DAILY@0800 [facility] Atorvastatin Calcium (Lipitor) 80 mg PO QHS [facility] Bisacodyl (Dulcolax) 10 mg PO QHS [facility] Last Admin: 01/10/20 21:33 Dose: Not Given Documented by: Fluticasone Propionate (Flonase Nasal [place]) 1 spray NASAL DAILY [facility] Last Admin: 01/11/20 11:03 Dose: 1 spray Documented by: Furosemide (Lasix) 40 mg IV BID@1000,1800 [facility] Last Admin: 01/11/20 11:04 Dose: 40 mg Documented by: Gabapentin (Neurontin) 200 mg [facility] Guaifenesin (Mucinex) 600 mg PO BID [facility] Piperacillin Sod/Tazobactam (Sod 3.375 gm/ Sodium Chloride) 50 mls @ 12.5 mls/hr IV Q8 [facility] Last Infusion: 01/11/20 09:39 Dose: Infused Documented by: Sodium Chloride () 250 mls @ 15 mls/hr IV .[id number] PRN PRN Reason: Saline Flush Sodium Chloride () 250 mls @ 15 mls/hr IV .[id number] PRN PRN Reason: Additional IVPB Infusion Insulin Glargine (Lantus ([facility])) 45 units SC BID@0800,1700 [facility] Last Admin: 01/11/20 11:01 Dose: Not Given Documented by: Insulin Human Lispro (Humalog Kwikpen ([facility])) 22 unit SC TIDCM [facility] Last Admin: 01/11/20 11:50 Dose: Not Given Documented by: Lidocaine (Lidoderm Patch) 1 patch TOPICAL DAILY PRN PRN Reason: PAIN 1-06/16 Loratadine (Claritin) 5 mg PO DAILY [facility] Losartan Potassium (Cozaar) 50 mg PO DAILY [facility] Magnesium Oxide (Mag-Ox 400) 400 mg PO DAILY [facility] Metoprolol Tartrate (Lopressor (Beta Chidi)) 50 mg PO TID [facility] Polyethylene Glycol (Miralax) 17 gm PO DAILY [facility] Senna (Senokot) 1 tablet PO BID [facility] Sodium Chloride () 10 - 40 ml IV UD PRN PRN Reason: SALINE FLUSH Temazepam (Restoril) 15 mg PO QHS PRN PRN Reason: INSOMNIA Inpatient E&M: 33429 [facility] L3
--- NOTE | 2020-01-11 14:56 | PN.CARD_ITS ---
Subjectve: Patient seen and evaluated. Recently extubated and appears to be doing much better at this time. Objective: Vital Signs Temp Pulse Resp BP Pulse Ox 100.1 F H 116 H 20 H 144/62 H 99 01/11/20 14:00 01/11/20 14:00 01/11/20 14:00 01/11/20 14:00 01/11/20 14:00 Oxygen Flow Rate (L/min) 2 Oxygen Delivery Method Nasal Cannula Weight: 322 lb 8.58 oz Body Mass Index (BMI) 45.1 Finger Stick Blood Glucose 128 Intake and Output for Last 24 Hours 01/09/20 01/10/20 01/11/20 23:59 23:59 23:59 Intake Total 1234.32 / 1247.97 1513.25 / 1581.12 968.97 / 968.97 Output Total 1125 / 1125 2200 / 2200 800 / 800 Balance 109.32 / 122.97 -686.75 / -618.88 168.97 / 168.97 General: Awake, Alert, Oriented x 3 HEENT: PERRL, EOMI, Sclera Non Icteric Neck: Supple, Good ROM, No Lymph Node Enlargement Extremities: Bilateral Edema +2 Skin: No Rashes 01/11/20 02:40: WBC 14.1 H, RBC 2.80 L, Hgb 8.0 L, Hct 27.0 L, MCV 96.4 H, MCH 28.6, MCHC 29.6 L, Plt Count 596 H, MPV 9.5, Immature Gran % (Auto) 0.800, Neut % (Auto) 81.6 H, Lymph % (Auto) 8.6 L, [place] % (Auto) 7.9, Eos % (Auto) 0.6, Baso % (Auto) 0.5, Absolute Neuts (auto) 11.5 H, Nucleated RBC % 0 01/11/20 02:40: Sodium 141, Potassium 4.0, Chloride 103, Carbon Dioxide 33.0 H, Anion Gap 5, BUN 42 H, Creatinine 1.35 H, Est GFR (MDRD) Af Amer 69, Est GFR (MDRD) Non-Af 57 L, BUN/Creatinine Ratio 31.1 H, Glucose 90, Calcium 7.8 L, Ferritin 682 H, Total Bilirubin 0.60 Rhythm: EKG: ECHO: Stress Test: Cardiac Cath: PCI: CT Surgery: Holter monitor: EPS: PPM: CXR: Chest CT Scan: Medical Necessity - Tobacco Use Smoking Status: Never smoker Assessment/Plan 1. Acute decompensated heart failure * He presented within 72 hours post discharge with a decompensation of his heart failure. The above appears to be diastolic in nature. The exact precipitating etiology is not entirely clear to me at this time. * Would recommend continuing intravenous Lasix for diuresis * Previous echocardiogram was reviewed, and a repeat echocardiogram demonstrated preserved ejection fraction. * It does not appear that patient has had an acute ST elevation myocardial infarction but continued coronary ischemia cannot be completely excluded * Would resume beta-ronen * Will continue fluid restriction. 2. Hypertension * His blood pressure is under good control and no changes were made with respect to the above * 3. Atrial fibrillation * His ventricular response rate is controlled at this particular time. * We will continue with anticoagulation and the amiodarone * 4. Coronary artery disease * He has known coronary artery disease status post recent coronary artery bypass surgery. His bypass anatomy was recently evaluated. He does have a tenuous saphenous vein graft to the right coronary artery but it appears the distal vessel is small and intervention is not being contemplated based on his cardiac catheterization from a week ago. Will recommend aggressive medical therapy. * Continue nitrates for now * Will transition to oral nitrates * 5. Hyperlipidemia * Patient will continue with lipid-lowering risk factor modification * * Overall he appears to be doing fairly well. It is not quite clear to me why he decompensates at this time.
[2020-01-11] MEDS: Metoprolol Tartrate 50 MG Tablet PO ×2 (15:49→21:14)
[2020-01-11] MEDS: 0.9% Saline Lock 10 ML Syringe IV ×3 (15:50→17:09)
[2020-01-11] MEDS: Insulin Lispro 100 UNIT/ML INSULN.PEN 22 UNIT SC (17:08)
[2020-01-11 17:21] LABS: Bedside Glucose 218 mg/dL (70-110)
[2020-01-11] MEDS: Atorvastatin Calcium 80 MG Tablet PO (21:14)
[2020-01-11] MEDS: APIXABAN 5 MG TABLET PO (21:14)
[2020-01-11] MEDS: guaiFENesin 600 MG Tablet PO (21:14)
[2020-01-11 21:35] LABS: Bedside Glucose 198 mg/dL (70-110)
[2020-01-12] VITALS (24 sets, daily range): BP systolic 100–126; BP diastolic 49–83; PULSE 70–101; RESP 12–25; TEMP 36.7–37.7; O2SAT 93–99
[2020-01-12] MEDS: 0.9% Saline Lock 10 ML Syringe IV ×3 (04:27→23:37)
[2020-01-12 04:31] LABS: Absolute Lymphocyte Count 0.87 X10^3/uL (0.83-4.51); Absolute Neutrophil Count 8.2 X10^3/uL (2.0-7.7); Basophil# 0.04 X10^3/uL; Basophil% 0.4 % (0-1); Eosinophil# 0.22 X10^3/uL; Eosinophils% 2.2 % (0-5); Lymphocyte # 0.87 X10^3/ul (4.0); Lymphocyte % 8.6 % (19-41); Mean Corp Hgb Conc 29.6 g/dL (32-36); Mean Corpuscular Hgb 28.7 pg (27.0-32.0); Mean Corpuscular Volume 96.8 fL (80-94); Mean Platelet Vol. 9.9 fl (6.2-12.0); Monocyte# 0.78 X10^3/uL; Monocyte% 7.7 % (0-10); NRBC Flagged by Analyzer 0 % (0-5); Neutrophil # 8.15 X10^3/uL (2.7-7.7); Neutrophil % 80.4 % (47-70); Platelet Count 584 K/mm3 (150-450); RBC Distribution Width CV 14.3 % (11.6-14.6); RBC Distribution Width SD 50.9 fl (35.1-43.9); Red Blood Count 2.79 M/mm3 (4.6-6.2); White Blood Count 10.1 K/mm3 (4.4-11.0)
[2020-01-12 04:49] LABS: ALB/GLOB Ratio 0.4 RATIO (0.9-2.4); AST(SGOT) 65 U/L (15-37); Alanine Aminotransfer ALT/SGPT 80 U/L (16-61); Alkaline Phosphatase 98 U/L (45-117); Anion Gap 4 (5-15); BUN 35 mg/dL (7-18); Calcium,Total 8.2 mg/dL (8.5-10.1); Chloride 100 mmol/L (98-107); Creatinine, Serum 1.25 mg/dL (0.70-1.30); EST Glomerular Filtration Rate 62 mL/min (>60); Est Glom Filt Rate - Afr Amer 75 mL/min (>60); Estimated Creatinine Clearance 64.08 ml/min; Globulin 4.6 g/dL (2.2-4.2); Glucose 201 mg/dL (74-106); Potassium 4.1 mmol/L (3.5-5.1); Protein, Total 6.6 g/dL (6.4-8.2); Sodium Level 140 mmol/L (136-145)
[2020-01-12] MEDS: Metoprolol Tartrate 50 MG Tablet PO ×3 (05:00→22:49)
--- NOTE | 2020-01-12 06:17 | PCM.PN.INT ---
Subjective: The patient was seen and examined at the bedside this morning. Events from the last 24 hours have been reviewed. The patient is currently afebrile, hemodynamically stable and maintaining appropriate oxygen saturations on 2 L/min via nasal cannula. The patient has done well from a respiratory perspective following extubation yesterday. The patient did tolerate BiPAP overnight with a pressure support of 18/8 centimeters of water. Objective: The patient's most recent lab work, culture data and imaging studies have all been personally reviewed. Surface echocardiogram revealed normal LV size and function with an ejection fraction of 65%. Pulmonary artery systolic pressure was estimated to be 42 mmHg. Strep and urine Legionella antigens were negative. MRSA screen was negative. Blood and urine cultures have shown no growth to date. General: Alert, No apparent distress HEENT: Atraumatic, Normocephalic Oral: No Gingival or Mucosal Lesions/ Ulcerations Neck: Supple, No Nodes, Trachea Midline Lungs: No rhonchi, No wheeze, No rales, Diminished Cardiovascular: Normal S1, Normal S2, Irregular Rate Abdomen: Bowel Sounds Present, Soft, Non Tender, Obese Extremities: No clubbing, No cyanosis Skin: No breakdown Musculoskeletal: No Muscle Wasting Lymphatic: No Cervical, Supraclavicular, or Inguinal Adenopathy Neurological: Neuro grossly intact Psych/Mental Status: Normal Affect, Appropriate Vital Signs Temp Pulse Resp BP Pulse Ox 99.0 F 85 25 H 118/72 99 01/12/20 06:00 01/12/20 06:00 01/12/20 06:00 01/12/20 06:00 01/12/20 06:00 Oxygen Flow Rate (L/min) 2 Oxygen Delivery Method Nasal Cannula Weight: 316 lb 9.341 oz Body Mass Index (BMI) 45.1 Finger Stick Blood Glucose 128 Intake and Output for Last 24 Hours 01/10/20 01/11/20 01/12/20 23:59 23:59 23:59 Intake Total 1513.25 / 1581.12 1618.97 / 1618.97 290 / 290 Output Total 2200 / 2200 2850 / 2850 400 / 400 Balance -686.75 / -618.88 -1231.03 / -1231.03 -110 / -110 Labs (Last 48 Hours) 01/09/20 01/09/20 01/10/20 07:45 14:30 08:30 WBC RBC Hgb Hct MCV MCH MCHC RDW Std Deviation RDW Coeff of [place] Plt Count MPV Immature Gran % (Auto) Neut % (Auto) Lymph % (Auto) [place] % (Auto) Eos % (Auto) Baso % (Auto) Absolute Neuts (auto) Absolute Lymphs (auto) Nucleated RBC % Diff Path Review Reviewed Sodium Potassium Chloride Carbon Dioxide Anion Gap BUN Creatinine Estim Creat Clear Calc Est GFR (MDRD) Af Amer Est GFR (MDRD) Non-Af BUN/Creatinine Ratio Glucose Calcium Ferritin Total Bilirubin AST ALT Alkaline Phosphatase C-React Prot Ext Range Total Protein Albumin Globulin Albumin/Globulin Ratio Vancomycin Trough COVID-19 ([place]) Not Detected POC Glucose Blood Type O POSITIVE Antibody Screen NEGATIVE 01/10/20 01/10/20 01/10/20 13:02 17:34 23:59 WBC RBC Hgb Hct MCV MCH MCHC RDW Std Deviation RDW Coeff of [place] Plt Count MPV Immature Gran % (Auto) Neut % (Auto) Lymph % (Auto) [place] % (Auto) Eos % (Auto) Baso % (Auto) Absolute Neuts (auto) Absolute Lymphs (auto) Nucleated RBC % Diff Path Review Sodium Potassium Chloride Carbon Dioxide Anion Gap BUN Creatinine Estim Creat Clear Calc Est GFR (MDRD) Af Amer Est GFR (MDRD) Non-Af BUN/Creatinine Ratio Glucose Calcium Ferritin Total Bilirubin AST ALT Alkaline Phosphatase C-React Prot Ext Range Total Protein Albumin Globulin Albumin/Globulin Ratio Vancomycin Trough COVID-19 ([place]) POC Glucose 164 H 160 H 76 Blood Type Antibody Screen 01/11/20 01/11/20 01/11/20 01:00 02:40 02:40 WBC 14.1 H RBC 2.80 L Hgb 8.0 L Hct 27.0 L MCV 96.4 H MCH 28.6 MCHC 29.6 L RDW Std Deviation 50.4 H RDW Coeff of [place] 14.2 Plt Count 596 H MPV 9.5 Immature Gran % (Auto) 0.800 Neut % (Auto) 81.6 H Lymph % (Auto) 8.6 L [place] % (Auto) 7.9 Eos % (Auto) 0.6 Baso % (Auto) 0.5 Absolute Neuts (auto) 11.5 H Absolute Lymphs (auto) 1.22 Nucleated RBC % 0 [address] Review Sodium 141 Potassium 4.0 Chloride 103 Carbon Dioxide 33.0 H Anion Gap 5 BUN 42 H Creatinine 1.35 H Estim Creat Clear Calc 59.33 Est GFR (MDRD) Af Amer 69 Est GFR (MDRD) Non-Af 57 L BUN/Creatinine Ratio 31.1 H Glucose 90 Calcium 7.8 L Ferritin 682 H Total Bilirubin 0.60 AST 51 H ALT 76 H Alkaline Phosphatase 95 C-React Prot Ext Range 141.00 H Total Protein 6.6 Albumin 2.0 L Globulin 4.6 H Albumin/Globulin Ratio 0.4 L Vancomycin Trough 16.8 H COVID-19 ([place]) POC Glucose Blood Type Antibody Screen 01/11/20 01/11/20 01/11/20 05:26 10:56 17:05 WBC RBC Hgb Hct MCV MCH MCHC RDW Std Deviation RDW Coeff of [place] Plt Count MPV Immature Gran % (Auto) Neut % (Auto) Lymph % (Auto) [place] % (Auto) Eos % (Auto) Baso % (Auto) Absolute Neuts (auto) Absolute Lymphs (auto) Nucleated RBC % Diff Path Review Sodium Potassium Chloride Carbon Dioxide Anion Gap BUN Creatinine Estim Creat Clear Calc Est GFR (MDRD) Af Amer Est GFR (MDRD) Non-Af BUN/Creatinine Ratio Glucose Calcium Ferritin Total Bilirubin AST ALT Alkaline Phosphatase C-React Prot Ext Range Total Protein Albumin Globulin Albumin/Globulin Ratio Vancomycin Trough COVID-19 ([place]) POC Glucose 94 118 H 218 H Blood Type Antibody Screen 01/11/20 01/12/20 01/12/20 21:31 04:20 04:20 WBC 10.1 RBC 2.79 L Hgb 8.0 L Hct 27.0 L MCV 96.8 H MCH 28.7 MCHC 29.6 L RDW Std Deviation 50.9 H RDW Coeff of [place] 14.3 Plt Count 584 H MPV 9.9 Immature Gran % (Auto) 0.700 Neut % (Auto) 80.4 H Lymph % (Auto) 8.6 L [place] % (Auto) 7.7 Eos % (Auto) 2.2 Baso % (Auto) 0.4 Absolute Neuts (auto) 8.2 H Absolute Lymphs (auto) 0.87 Nucleated RBC % [address] Review Sodium 140 Potassium 4.1 Chloride 100 Carbon Dioxide 36.0 H Anion Gap 4 L BUN 35 H Creatinine 1.25 Estim Creat Clear Calc 64.08 Est GFR (MDRD) Af Amer 75 Est GFR (MDRD) Non-Af 62 BUN/Creatinine Ratio 28.0 H Glucose 201 H Calcium 8.2 L Ferritin Total Bilirubin 0.40 AST 65 H ALT 80 H Alkaline Phosphatase 98 C-React Prot Ext Range Total Protein 6.6 Albumin 2.0 L Globulin 4.6 H Albumin/Globulin Ratio 0.4 L Vancomycin Trough COVID-19 ([place]) POC Glucose 198 H Blood Type Antibody Screen Microbiology 01/10/20 06:45 Sputum, Tracheal Aspirate Gram Stain - Final 01/10/20 06:45 Sputum, Tracheal Aspirate Respiratory Culture - Preliminary Culture exhibits no growth. 01/09/20 07:45 Blood Culture (Wb) - Anticubital Left Blood Culture - Preliminary No growth in 48 hours. 01/09/20 07:45 Blood Culture (Wb) - Anticubital Right Blood Culture - Preliminary No growth in 48 hours. 01/09/20 08:00 Urine Catheter - Catheter Urine Culture - Final Klebsiella pneumoniae sp pneum Clinical Impression(s) from Imaging Studies Chest X-Ray 01/09/20 07:46 IMPRESSION: Status post CABG. Vascular congestion and mild CHF with small bilateral pleural effusions and bibasilar atelectasis and/or infiltrates worse on the left side. This has worsened as compared to prior study. Electronically Signed: Tutu Royal at 8:29 EDT , Service support , Chest X-Ray 01/09/20 14:48 IMPRESSION: Stable CHF with blunting of both costophrenic angles and bibasilar atelectasis worse on the left side. The tip of the endotracheal tube is at 5.9 cm proximal to the kyra. Electronically Signed: Tutu Royal at 15:27 EDT , Service support , KUB X-Ray 01/09/20 15:18 IMPRESSION: The tip of the oral gastric tube is in the body of the stomach just distal to the gastroesophageal junction. Electronically Signed: Tutu Royal at 15:28 EDT , Service support , Chest CTA 01/09/20 16:26 IMPRESSION: 1. No pulmonary embolus or aortic dissection. 2. Bilateral pleural effusions. 3. No demonstrated pneumonia. Electronically Signed: Monica Worley MD at 17:56 EDT Tel , Service support , Medical Necessity - Tobacco Use Smoking Status: Never smoker Assessment/Plan All Active Problems (Last Updated 12/03/19 @ 12:27 by Serena Wilson) Atrial flutter with rapid ventricular response (Acute) Respiratory failure with hypoxia and hypercapnia (Acute) Atrial fibrillation with rapid ventricular response (Acute) S/P CABG x 4 (Acute) Acute exacerbation of CHF (congestive heart failure) (Resolved) RECOMMENDATIONS: 1. Consider de-escalation of Zosyn to p.o. Levaquin to complete 7-day treatment course. 2. Continue amiodarone, Eliquis, diuretics and beta-ronen per cardiology recommendations. 3. Wean supplemental oxygen to maintain saturations at or above 90%. 4. Encourage incentive spirometer use and mobilize patient as tolerated. 5. Perform walking oximetry study prior to consideration for discharge home. 6. Recommend outpatient pulmonary follow-up and dedicated polysomnogram to establish diagnosis of sleep apnea. 7. Given the lack of further ICU needs, will sign off. Please call with any additional questions. IMPRESSIONS: 1. Acute combined respiratory failure Improved. Unclear precipitating etiology. However, the patient does appear to be in a state of CHF exacerbation. I cannot definitively rule out the possibility of an underlying pulmonary infectious etiology either. Therefore, the patient will remain on empiric antimicrobial therapy along with scheduled diuretics. The patient has done well from a respiratory perspective following extubation on January 10. Continue to wean supplemental oxygen as tolerated to maintain saturations at or above 90%. Encourage incentive spirometer use and mobilize patient as tolerated. 2. Acute decompensated heart failure/troponin elevation Cardiology is currently following. Continue current medical management with amiodarone, beta-ronen and scheduled diuretic therapy. The patient will also remain on systemic anticoagulation. 3. Severe sepsis Appears to be either secondary to a urinary tract source of infection or underlying healthcare associated pneumonia. The patient is on appropriate antimicrobials at this time. Given the patient's urine culture results, he can likely be transitioned to p.o. Levaquin to complete a 7-day treatment course. The patient remains hemodynamically stable. 4. Thrombocytosis Unclear etiology. Platelet count appears to have been increasing since the end of December. Will monitor clinically. If indicated, consultation will be obtained from hematology. 5. Probable obstructive sleep apnea The patient would be considered high risk for underlying sleep disordered breathing. I would recommend an outpatient polysomnogram be completed upon discharge from the hospital. 6. Morbid obesity/hypertension/hyperlipidemia/diabetes mellitus Complicates care, management, recovery and prognosis. Continue basal and sliding scale insulin coverage. This note was generated with [employer] dictation software. It may contain incorrect words, spelling, and punctuation that were not noted in checking the note before signing. Inpatient E&M: [id number] [facility] Hosp L3
[2020-01-12] MEDS: Albuterol 2.5 MG/3 ML VIAL.NEB. INHALATION ×3 (06:59→19:05)
--- NOTE | 2020-01-12 07:13 | NURSING ---
Report given to Hua buck on pcu at this time.
[2020-01-12] MEDS: Insulin Lispro 100 UNIT/ML INSULN.PEN 22 UNIT SC ×3 (08:39→17:06)
[2020-01-12] MEDS: Fluticasone 0.05% 1 SPRAY NASAL.SRY NASAL (08:43)
[2020-01-12] MEDS: Furosemide 40 MG/4 ML Vial IV ×2 (08:43→17:10)
[2020-01-12] MEDS: Gabapentin 100 MG Capsule 200 MG PO (08:46)
[2020-01-12] MEDS: Loratadine 10 MG Tablet 5 MG PO (08:47)
[2020-01-12] MEDS: Amiodarone 200 MG Tablet PO (08:48)
[2020-01-12] MEDS: Aspirin 81 MG TAB.CHEW 162 MG PO (08:48)
[2020-01-12] MEDS: Magnesium Oxide 400 MG Tablet PO (08:48)
[2020-01-12] MEDS: guaiFENesin 600 MG Tablet PO ×2 (08:49→22:49)
[2020-01-12] MEDS: APIXABAN 5 MG TABLET PO ×2 (08:49→22:50)
[2020-01-12] MEDS: Losartan Potassium 50 MG Tablet PO (08:49)
--- NOTE | 2020-01-12 08:59 | PN.CARD_ITS ---
Subjectve: patient seen and evaluated Objective: Vital Signs Temp Pulse Resp BP Pulse Ox 98.0 F 74 16 113/72 97 01/12/20 08:42 01/12/20 08:42 01/12/20 08:42 01/12/20 08:42 01/12/20 08:42 Oxygen Flow Rate (L/min) 2 Oxygen Delivery Method Nasal Cannula Weight: 316 lb 9.341 oz Body Mass Index (BMI) 45.1 Finger Stick Blood Glucose 128 Intake and Output for Last 24 Hours 01/10/20 01/11/20 01/12/20 23:59 23:59 23:59 Intake Total 1513.25 / 1581.12 1618.97 / 1618.97 290 / 290 Output Total 2200 / 2200 2850 / 2850 400 / 400 Balance -686.75 / -618.88 -1231.03 / -1231.03 -110 / -110 General: Awake, Alert, Oriented x 3 HEENT: PERRL, EOMI, Sclera Non Icteric Neck: Supple, Good ROM, No Lymph Node Enlargement Lungs: Clear to auscultation Cardiovascular: Irregular Rhythm, Normal S1, Normal S2, No Murmurs, No Rubs, No Gallops Vascular: No Carotid Bruits, Normal Femoral Pulses, Normal Radial Pulses, Normal Dorsalis Pedal Pulse, Normal Posterior Tibial Pulses Abdomen: Bowel Sounds Present, Soft, Non Tender, No HSM, No Organomegaly Extremities: No Cyanosis, No Clubbing, No edema Neurological: No Focal Motor or Sensory Deficit 01/12/20 04:20: WBC 10.1, RBC 2.79 L, Hgb 8.0 L, Hct 27.0 L, MCV 96.8 H, MCH 28.7, MCHC 29.6 L, Plt Count 584 H, MPV 9.9, Immature Gran % (Auto) 0.700, Neut % (Auto) 80.4 H, Lymph % (Auto) 8.6 L, [place] % (Auto) 7.7, Eos % (Auto) 2.2, Baso % (Auto) 0.4, Absolute Neuts (auto) 8.2 H, Nucleated RBC % 0 01/12/20 04:20: Sodium 140, Potassium 4.1, Chloride 100, Carbon Dioxide 36.0 H, Anion Gap 4 L, BUN 35 H, Creatinine 1.25, Est GFR (MDRD) Af Amer 75, Est GFR (MDRD) Non-Af 62, BUN/Creatinine Ratio 28.0 H, Glucose 201 H, Calcium 8.2 L, Total Bilirubin 0.40 Rhythm: EKG: ECHO: Stress Test: Cardiac Cath: PCI: CT Surgery: Holter monitor: EPS: PPM: CXR: Chest CT Scan: Medical Necessity - Tobacco Use Smoking Status: Never smoker Assessment/Plan 1. Acute decompensated heart failure * He presented within 72 hours post discharge with a decompensation of his heart failure. The above appears to be diastolic in nature. The exact precipit ating etiology is not entirely clear to me at this time. * Would recommend continuing intravenous Lasix for diuresis * Previous echocardiogram was reviewed, and a repeat echocardiogram demonstrated preserved ejection fraction. * It does not appear that patient has had an acute ST elevation myocardial infarction but continued coronary ischemia cannot be completely excluded * Would resume beta-ronen * Will continue fluid restriction. 2. Hypertension * His blood pressure is under good control and no changes were made with respect to the above * 3. Atrial fibrillation * His ventricular response rate is controlled at this particular time. * We will continue with anticoagulation and the amiodarone * 4. Coronary artery disease * He has known coronary artery disease status post recent coronary artery bypass surgery. His bypass anatomy was recently evaluated. He does have a tenuous saphenous vein graft to the right coronary artery but it appears the distal vessel is small and intervention is not being contemplated based on his cardiac catheterization from a week ago. Will recommend aggressive medical therapy. * Continue nitrates for now * Will transition to oral nitrates * 5. Hyperlipidemia * Patient will continue with lipid-lowering risk factor modification * * Overall he appears to be doing fairly well.
[2020-01-12 09:06] LABS: Bedside Glucose 175 mg/dL (70-110)
[2020-01-12 12:05] LABS: Bedside Glucose 204 mg/dL (70-110)
[2020-01-12] MEDS: oxyCODONE 5 MG Tablet PO (14:30)
--- NOTE | 2020-01-12 16:02 | PCM.PN.HOSP ---
Reason for Visit: Acute hypoxic and hypercarbic respiratory failure, severe sepsis with acute on chronic heart failure Objective: Seen and examined. Patient shortness of breath is better but he still gets dyspneic on exertion. Morbid obesity. Possible sleep apnea and COPD also is a non-smoker but had PFT or sleep study No fever or chills. Pulse ox 94% on 2 L of oxygen. General: Alert, Oriented x3, Cooperative HEENT: Atraumatic, PERRLA, EOMI, Normocephalic Oral: -Oral mucosa moist. Neck: Supple, No JVD, Negative Carotid Bruits Lungs: Diminished air entry and bilateral lung bases, Rhonchi, On rescue BiPAP as needed Cardiovascular: Regular rate, Regular Rhythm, Normal S1, Normal S2, No murmurs Abdomen: Bowel Sounds Present, Soft, Non Tender, Non-Distended Extremities: Capillary Refill Less than 3 Seconds, lateral leg edema Skin: No rashes, No breakdown Musculoskeletal: No Tenderness to Palpation of Joints or Extremities, Arthritic Changes Neurological: Cranial nerves II-XII grossly intact, Deep Tendon Reflexes 2+/4 and Symmetrical, Neuro grossly intact Psych/Mental Status: Normal Affect, Appropriate Vitals/I&O's: Vital Signs Temp Pulse Resp BP Pulse Ox 98.3 F 98 18 113/59 L 94 01/12/20 14:29 01/12/20 14:30 01/12/20 14:29 01/12/20 14:29 01/12/20 14:29 Oxygen Flow Rate (L/min) 2 Oxygen Delivery Method Nasal Cannula Weight: 316 lb 9.341 oz Body Mass Index (BMI) 45.1 Finger Stick Blood Glucose 128 Intake and Output for Last 24 Hours 01/10/20 01/11/20 01/12/20 23:59 23:59 23:59 Intake Total 1513.25 / 1581.12 1618.97 / 1618.97 1090 / 1090 Output Total 2200 / 2200 2850 / 2850 900 / 900 Balance -686.75 / -618.88 -1231.03 / -1231.03 190 / 190 Microbiology Past 72 Hours 01/10/20 06:45 Sputum, Tracheal Aspirate Gram Stain - Final 01/10/20 06:45 Sputum, Tracheal Aspirate Respiratory Culture - Preliminary Culture exhibits no growth. 01/09/20 07:45 Blood Culture (Wb) - Anticubital Left Blood Culture - Preliminary No growth in 48 hours. 01/09/20 07:45 Blood Culture (Wb) - Anticubital Right Blood Culture - Preliminary No growth in 48 hours. 01/09/20 08:00 Urine Catheter - Catheter Urine Culture - Final Klebsiella pneumoniae sp pneum 01/09/20 08:00 Urine Catheter - Catheter Legionella Antigen - Final 01/09/20 08:00 Urine Catheter - Catheter Streptococcus pneumoniae Antigen (M - Final Laboratory Results 01/11/20 17:05: POC Glucose 218 H 01/11/20 21:31: POC Glucose 198 H 01/12/20 04:20: WBC 10.1, RBC 2.79 L, Hgb 8.0 L, Hct 27.0 L, MCV 96.8 H, MCH 28.7, MCHC 29.6 L, RDW Std Deviation 50.9 H, RDW Coeff of [place] 14.3, Plt Count 584 H, MPV 9.9, Immature Gran % (Auto) 0.700, Neut % (Auto) 80.4 H, Lymph % (Auto) 8.6 L, [place] % (Auto) 7.7, Eos % (Auto) 2.2, Baso % (Auto) 0.4, Absolute Neuts (auto) 8.2 H, Absolute Lymphs (auto) 0.87, Nucleated RBC % 0 01/12/20 04:20: Sodium 140, Potassium 4.1, Chloride 100, Carbon Dioxide 36.0 H, Anion Gap 4 L, BUN 35 H, Creatinine 1.25, Estim Creat Clear Calc 64.08, Est GFR (MDRD) Af Amer 75, Est GFR (MDRD) Non-Af 62, BUN/Creatinine Ratio 28.0 H, Glucose 201 H, Calcium 8.2 L, Total Bilirubin 0.40, AST 65 H, ALT 80 H, Alkaline Phosphatase 98, Total Protein 6.6, Albumin 2.0 L, Globulin 4.6 H, Albumin/Globulin Ratio 0.4 L 01/12/20 08:31: POC Glucose 175 H 01/12/20 11:58: POC Glucose 204 H Current Medications Acetaminophen (Tylenol) 650 mg PO Q6H PRN PRN PRN Reason: Pain Score 1-3 /Temp>100.7 Albuterol Sulfate (Ventolin Aerosols) 2.5 mg INHALATION Q2H PRN PRN PRN Reason: SOB &/OR WHEEZING Last Admin: 01/12/20 14:06 Dose: 2.5 mg Documented by: Amiodarone HCl (Cordarone) 200 mg PO DAILY [facility] Last Admin: 01/12/20 08:48 Dose: 200 mg Documented by: Apixaban (Eliquis) 5 mg PO BID [facility] Last Admin: 01/12/20 08:49 Dose: 5 mg Documented by: Aspirin (Aspirin, Baby) 162 mg PO DAILY@0800 [facility] Last Admin: 01/12/20 08:48 Dose: 162 mg Documented by: Atorvastatin Calcium (Lipitor) 80 mg PO QHS [facility] Last Admin: 01/11/20 21:14 Dose: 80 mg Documented by: Bisacodyl (Dulcolax) 10 mg PO QHS [facility] Last Admin: 01/11/20 21:15 Dose: Not Given Documented by: Fluticasone Propionate (Flonase Nasal [place]) 1 spray NASAL DAILY [facility] Last Admin: 01/12/20 08:43 Dose: 1 spray Documented by: Furosemide (Lasix) 40 mg IV BID@1000,1800 [facility] Last Admin: 01/12/20 08:43 Dose: 40 mg Documented by: Gabapentin (Neurontin) 200 mg PO DAILYCM [facility] Last Admin: 01/12/20 08:46 Dose: 200 mg Documented by: Guaifenesin (Mucinex) 600 mg PO BID [facility] Last Admin: 01/12/20 08:49 Dose: 600 mg Documented by: Piperacillin Sod/Tazobactam (Sod 3.375 gm/ Sodium Chloride) 50 mls @ 12.5 mls/hr IV Q8 [facility] Last Admin: 01/12/20 14:30 Dose: 12.5 mls/hr Documented by: Sodium Chloride () 250 mls @ 15 mls/hr IV .[id number] PRN PRN Reason: Saline Flush Sodium Chloride () 250 mls @ 15 mls/hr IV .[id number] PRN PRN Reason: Additional IVPB Infusion Insulin Glargine (Lantus ([facility])) 45 units SC BID@0800,1700 [facility] Last Admin: 01/12/20 08:39 Dose: 45 units Documented by: Insulin Human Lispro (Humalog Kwikpen (Bkc)) 22 unit SC TIDCM [facility] Last Admin: 01/12/20 11:59 Dose: 22 u Documented by: Lidocaine (Lidoderm Patch) 1 patch TOPICAL DAILY PRN PRN Reason: PAIN 1-10/10 Loratadine (Claritin) 5 mg PO DAILY [facility] Last Admin: 01/12/20 08:47 Dose: 5 mg Documented by: Losartan Potassium (Cozaar) 50 mg PO DAILY [facility] Last Admin: 01/12/20 08:49 Dose: 50 mg Documented by: Magnesium Oxide (Mag-Ox 400) 400 mg PO DAILY [facility] Last Admin: 01/12/20 08:48 Dose: 400 mg Documented by: Metoprolol Tartrate (Lopressor (Beta Chidi)) 50 mg PO TID [facility] Last Admin: 01/12/20 14:30 Dose: 50 mg Documented by: Morphine Sulfate () 1 - 2 mg IV Q4H PRN PRN PRN Reason: Pain Score 6-10/10 Oxycodone HCl (Oxyir) 5 mg PO Q4H PRN PRN PRN Reason: Pain Score 4-5/10 Last Admin: 01/12/20 14:30 Dose: 5 mg Documented by: Polyethylene Glycol (Miralax) 17 gm PO DAILY [facility] Last Admin: 01/12/20 08:33 Dose: Not Given Documented by: Senna (Senokot) 1 tablet PO BID [facility] Last Admin: 01/12/20 08:33 Dose: Not Given Documented by: Sodium Chloride () 10 - 40 ml IV UD PRN PRN Reason: SALINE FLUSH Last Admin: 01/12/20 04:27 Dose: 20 ml Documented by: Temazepam (Restoril) 15 mg PO QHS PRN PRN Reason: INSOMNIA STROKE Vital Signs/Narrative: Vital Signs Temp Pulse Resp BP Pulse Ox 01/12/20 14:30 98 01/12/20 14:29 98.3 F 98 18 113/59 L 94 01/12/20 14:06 101 H 16 Medical Necessity - Tobacco Use Smoking Status: Never smoker Assessment/Plan All Active Problems (Last Updated 12/03/19 @ 12:27 by Serena Wilson) Atrial flutter with rapid ventricular response (Acute) Respiratory failure with hypoxia and hypercapnia (Acute) Atrial fibrillation with rapid ventricular response (Acute) S/P CABG x 4 (Acute) Acute exacerbation of CHF (congestive heart failure) (Resolved) This is a 59-year-old admitted with a complaint of acute onset shortness of breath and mild fever. 1. Acute hypoxic and hypercapnic respiratory failure status post intubation: Currently patient is on 35% FiO2, PEEP 5. Vent management as per metallurgical inspector. ABG 7.26/78/67 on BiPAP 24/12 on 40% FiO2 on 01/09/2020. 01/10: Patient is extubated on supplemental oxygen. BiPAP rescue therapy as needed. 2. Severe sepsis possible secondary to healthcare associated pneumonia or UTI: On IV vancomycin and Zosyn. Patient was discharged 2 days ago. Chest x-ray independently reviewed and shows vascular congestion and mild CHF with small bilateral pleural effusion, bibasilar atelectasis and/or infiltrate worse on the left side. Patient has leukocytosis and thrombocytosis which is improving. UA shows WBC 5-10 cells, positive nitrite and LE 25. 3+ bacteria. 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 Urinary antigens are negative. COVID test pending. Gram stain of sputum culture shows 3+ WBC, rare gram-negative rods. Lactic acid normal. 01/10: Continue IV antibiotic. Urine culture Klebsiella pneumoniae. Sputum culture, tracheal aspirate preliminary shows no growth. Blood cultures no growth for more than 48 hours. Leukocytosis improving. 01/11: Patient is on antibiotic. Narrow down antibiotic to IV ceftriaxone. 3. Nonstemi with history of coronary artery disease status post CAB.4, trended down to 3.3. Seems secondary to demand ischemia from severe hypoxia. Patient recently had a cath few days ago showed patent graft and did not require PCI. Troponin was up to 4.4. This is likely due to demand ischemia from severe hypoxia. Patient recently had a cath a few days ago which showed patent grafts and did not require PCI. Cereal Maker on board. On Lipitor and atorvastatin. On aspirin, Eliquis, metoprolol, losartan. 4. Acute on chronic HFpEF BNP was around 635. Continue IV Lasix 40 mg twice daily. Monitor intake and output. Fluid restrictions 1500 cc daily. 56: Echo reported as normal LV size with EF 65%. Mild to moderate TR, PASP 42 mmHg 5. Hyperkalemia: K was 6.8. Patient had Kayexalate. Repeat K5.3. 6 Type 2 diabetes mellitus: on lantus. ISS. Accuchecks ACHS 7 Chronic A. fib: Currently rate controlled. On amiodarone and metoprolol as well as Eliquis 8 normocytic normochromic anemia, acute on chronic: Stool for occult blood ordered. Hemoglobin dropped from 9.8-8.0. DVT prophylaxis: Already on Eliquis CODE STATUS: Full code Patient is eager to have outpatient sleep study and PFT. Discussed with Dr. Heaton and caser shoe parts. Microbiology Past 72 Hours 01/10/20 06:45 Sputum, Tracheal Aspirate Gram Stain - Final 01/10/20 06:45 Sputum, Tracheal Aspirate Respiratory Culture - Preliminary Culture exhibits no growth. 01/09/20 07:45 Blood Culture (Wb) - Anticubital Left Blood Culture - Preliminary No growth in 48 hours. 01/09/20 07:45 Blood Culture (Wb) - Anticubital Right Blood Culture - Preliminary No growth in 48 hours. 01/09/20 08:00 Urine Catheter - Catheter Urine Culture - Final Klebsiella pneumoniae sp pneum 01/09/20 08:00 Urine Catheter - Catheter Legionella Antigen - Final 01/09/20 08:00 Urine Catheter - Catheter Streptococcus pneumoniae Antigen (M - Final Laboratory Results 01/11/20 17:05: POC Glucose 218 H 01/11/20 21:31: POC Glucose 198 H 01/12/20 04:20: WBC 10.1, RBC 2.79 L, Hgb 8.0 L, Hct 27.0 L, MCV 96.8 H, MCH 28.7, MCHC 29.6 L, RDW Std Deviation 50.9 H, RDW Coeff of [place] 14.3, Plt Count 584 H, MPV 9.9, Immature Gran % (Auto) 0.700, Neut % (Auto) 80.4 H, Lymph % (Auto) 8.6 L, [place] % (Auto) 7.7, Eos % (Auto) 2.2, Baso % (Auto) 0.4, Absolute Neuts (auto) 8.2 H, Absolute Lymphs (auto) 0.87, Nucleated RBC % 0 01/12/20 04:20: Sodium 140, Potassium 4.1, Chloride 100, Carbon Dioxide 36.0 H, Anion Gap 4 L, BUN 35 H, Creatinine 1.25, Estim Creat Clear Calc 64.08, Est GFR (MDRD) Af Amer 75, Est GFR (MDRD) Non-Af 62, BUN/Creatinine Ratio 28.0 H, Glucose 201 H, Calcium 8.2 L, Total Bilirubin 0.40, AST 65 H, ALT 80 H, Alkaline Phosphatase 98, Total Protein 6.6, Albumin 2.0 L, Globulin 4.6 H, Albumin/Globulin Ratio 0.4 L 01/12/20 08:31: POC Glucose 175 H 01/12/20 11:58: POC Glucose 204 H Inpatient E&M: 76204 Subs Hosp L2
[2020-01-12 17:26] LABS: Bedside Glucose 122 mg/dL (70-110)
[2020-01-12] MEDS: Acetaminophen 325 MG Tablet 650 MG PO (20:32)
[2020-01-12] MEDS: Atorvastatin Calcium 80 MG Tablet PO (22:49)
[2020-01-12 23:06] LABS: Bedside Glucose 45 mg/dL (70-110)
[2020-01-12 23:26] LABS: Bedside Glucose 38 mg/dL (70-110)
[2020-01-12] MEDS: Dextrose 50%-Water 25 GM/50 ML DISP.SYRIN IV (23:30)
[2020-01-12 23:51] LABS: Bedside Glucose 99 mg/dL (70-110)
[2020-01-13] VITALS (21 sets, daily range): BP systolic 97–127; BP diastolic 46–84; PULSE 70–140; RESP 12–40; TEMP 36.6–37; O2SAT 92–98
[2020-01-13 00:09] LABS: Glucose 106 mg/dL (74-106)
[2020-01-13 01:00] LABS: Bedside Glucose 93 mg/dL (70-110)
[2020-01-13] MEDS: 0.9% Saline Lock 10 ML Syringe IV ×2 (02:21→05:17)
[2020-01-13] MEDS: Dicyclomine 10 MG Capsule 20 MG PO (02:21)
[2020-01-13] MEDS: Morphine 2 MG/ML Syringe IV (02:22)
[2020-01-13 02:31] LABS: Bedside Glucose 90 mg/dL (70-110)
--- NOTE | 2020-01-13 05:00 | RAD_ITS ---
STUDY: X-RAY - ABDOMEN/PELVIS REASON FOR EXAM: Male, 59 years old. Patient complains of lower abdominal pain TECHNIQUE: Single AP view of the abdomen / pelvis. COMPARISON: January 09, 2020 abdomen study FINDINGS: The lung bases are mostly on the [id number]. Is a nonspecific bowel gas pattern is moderate stool within the colon. There is no demonstrated free abdominal air. Allowing for technique the renal silhouettes are not well-visualized. There is a suggestion of a stone overlying the left renal silhouette a visualized. There are calcified phleboliths in the pelvis. There are diffuse degenerative changes of the visualized lumbar spine. There is visualized degenerative change in the SI joints and bilateral hip joints. RAD/Abdomen Single View IMPRESSION: Limited study. Constipation nonspecific bowel gas pattern. Findings suggest possible punctate stone left kidney. Electronically Signed: Barbara Read MD at 5:29 EDT Tel , Service support ,
[2020-01-13] MEDS: Morphine 4 MG/ML Syringe IV (05:16)
[2020-01-13] MEDS: Metoprolol Tartrate 50 MG Tablet PO (05:29)
[2020-01-13 06:12] LABS: Absolute Lymphocyte Count 0.46 X10^3/uL (0.83-4.51); Basophil# 0.02 X10^3/uL; Basophil% 0.3 % (0-1); Eosinophil# 0.05 X10^3/uL; Eosinophils% 0.7 % (0-5); Hematocrit 30.1 % (40-54); Lymphocyte # 0.46 X10^3/ul (4.0); Lymphocyte % 6.6 % (19-41); Mean Corp Hgb Conc 29.9 g/dL (32-36); Mean Corpuscular Hgb 28.2 pg (27.0-32.0); Mean Corpuscular Volume 94.4 fL (80-94); Mean Platelet Vol. 9.4 fl (6.2-12.0); Monocyte# 0.38 X10^3/uL; Monocyte% 5.5 % (0-10); NRBC Flagged by Analyzer 0 % (0-5); Neutrophil # 6.04 X10^3/uL (2.7-7.7); Neutrophil % 86.6 % (47-70); POSITIVE DIFFERENTIAL YES; POSITIVE MORPHOLOGY YES; Platelet Count 654 K/mm3 (150-450); RBC Distribution Width CV 14.4 % (11.6-14.6); RBC Distribution Width SD 48.6 fl (35.1-43.9); Red Blood Count 3.19 M/mm3 (4.6-6.2)
[2020-01-13 06:16] LABS: Differential Indicated SCAN CRITERIA MET
[2020-01-13 06:34] LABS: Differential Comment SCANNED; Reactive Lymphocyte RARE
[2020-01-13 06:38] LABS: Anion Gap 5 (5-15); BUN 35 mg/dL (7-18); BUN/Creat Ratio 25.5 RATIO (10-20); Calcium,Total 8.3 mg/dL (8.5-10.1); Chloride 100 mmol/L (98-107); Creatinine, Serum 1.37 mg/dL (0.70-1.30); EST Glomerular Filtration Rate 56 mL/min (>60); Est Glom Filt Rate - Afr Amer 68 mL/min (>60); Estimated Creatinine Clearance 58.47 ml/min; Glucose 109 mg/dL (74-106); Potassium 3.8 mmol/L (3.5-5.1); Sodium Level 138 mmol/L (136-145)
[2020-01-13 07:11] LABS: Bedside Glucose 92 mg/dL (70-110)
[2020-01-13] MEDS: Albuterol 2.5 MG/3 ML VIAL.NEB. INHALATION ×3 (07:25→18:58)
--- NOTE | 2020-01-13 08:55 | PN.CARD_ITS ---
Subjectve: Patient seen and evaluated. Appears to be doing well from the cardiac standpoint. Still in A. fib unbeknownst to him. Complaining of abdominal dis tention. Objective: Vital Signs Temp Pulse Resp BP Pulse Ox 98.1 F 103 H 18 118/73 92 01/13/20 06:56 01/13/20 07:25 01/13/20 07:25 01/13/20 06:56 01/13/20 07:25 Oxygen Flow Rate (L/min) 2.5 Oxygen Delivery Method Nasal Cannula Weight: 317 lb 14.505 oz Body Mass Index (BMI) 45.1 Finger Stick Blood Glucose 128 Intake and Output for Last 24 Hours 01/11/20 01/12/20 01/13/20 23:59 23:59 23:59 Intake Total 1618.97 / 1618.97 1565 / 1565 480 / 480 Output Total 2850 / 2850 1225 / 1225 500 / 500 Balance -1231.03 / -1231.03 340 / 340 -20 / -20 General: Awake, Alert, Oriented x 3 HEENT: PERRL, EOMI, Sclera Non Icteric Neck: Supple, Good ROM, No Lymph Node Enlargement Lungs: Clear to auscultation Cardiovascular: Regular Rhythm, Normal S1, Normal S2, No Murmurs, No Rubs, No Gallops Vascular: No Carotid Bruits, Normal Femoral Pulses, Normal Radial Pulses, Normal Dorsalis Pedal Pulse, Normal Posterior Tibial Pulses Abdomen: Bowel Sounds Present, Soft, Non Tender, No HSM, No Organomegaly, Distended Extremities: No Cyanosis, No Clubbing, Bilateral Edema +1 Neurological: No Focal Motor or Sensory Deficit Psych/Mental Status: Appropriate 01/12/20 23:45: Glucose 106 01/13/20 06:05: WBC 7.0, RBC 3.19 L, Hgb 9.0 L, Hct 30.1 L, MCV 94.4 H, MCH 28.2, MCHC 29.9 L, Plt Count 654 H, MPV 9.4, Immature Gran % (Auto) 0.300, Neut % (Auto) 86.6 H, Lymph % (Auto) 6.6 L, [place] % (Auto) 5.5, Eos % (Auto) 0.7, Baso % (Auto) 0.3, Absolute Neuts (auto) 6.0, Nucleated RBC % 0 01/13/20 06:05: Sodium 138, Potassium 3.8, Chloride 100, Carbon Dioxide 33.0 H, Anion Gap 5, BUN 35 H, Creatinine 1.37 H, Est GFR (MDRD) Af Amer 68, Est GFR (MDRD) Non-Af 56 L, BUN/Creatinine Ratio 25.5 H, Glucose 109 H, Calcium 8.3 L, Magnesium 2.0 Rhythm: EKG: ECHO: Stress Test: Cardiac Cath: PCI: CT Surgery: Holter monitor: EPS: PPM: CXR: Chest CT Scan: Medical Necessity - Tobacco Use Smoking Status: Never smoker Assessment/Plan 1. Acute decompensated heart failure * He presented within 72 hours post discharge with a decompensation of his heart failure. The above appears to be diastolic in nature. The exact precipitating etiology is not entirely clear to me at this time. * Would recommend continuing Lasix which would be converted to oral. * Previous echocardiogram was reviewed, and a repeat echocardiogram demonstrated preserved ejection fraction. * It does not appear that patient has had an acute ST elevation myocardial infarction but continued coronary ischemia cannot be completely excluded * Would resume beta-ronen * Will continue fluid restriction. 2. Hypertension * His blood pressure is under good control and no changes were made with respect to the above * 3. Atrial fibrillation * His ventricular response rate is uncontrolled at this particular time. * We will continue with anticoagulation and the amiodarone * I would suggest increasing the metoprolol to 100 twice daily instead of 75 mg 3 times daily 4. Coronary artery disease * He has known coronary artery disease status post recent coronary artery bypass surgery. His bypass anatomy was recently evaluated. He does have a tenuous saphenous vein graft to the right coronary artery but it appears the distal vessel is small and intervention is not being contemplated based on his cardiac catheterization from 2 week ago. Will recommend aggressive medical therapy. * Continue nitrates for now * Will transition to oral nitrates as well * 5. Hyperlipidemia * Patient will continue with lipid-lowering risk factor modification * * Overall he appears to be doing fairly well. I will however suggest that we keep him in the hospital for at least another day.
[2020-01-13] MEDS: Aspirin 81 MG TAB.CHEW 162 MG PO (09:15)
[2020-01-13] MEDS: Gabapentin 100 MG Capsule 200 MG PO (09:16)
[2020-01-13] MEDS: Loratadine 10 MG Tablet 5 MG PO (09:16)
[2020-01-13] MEDS: Losartan Potassium 50 MG Tablet PO (09:17)
[2020-01-13] MEDS: Amiodarone 200 MG Tablet PO (09:17)
[2020-01-13] MEDS: guaiFENesin 600 MG Tablet PO ×2 (09:18→20:59)
[2020-01-13] MEDS: APIXABAN 5 MG TABLET PO ×2 (09:18→20:59)
[2020-01-13] MEDS: Magnesium Oxide 400 MG Tablet PO (09:18)
[2020-01-13] MEDS: Senna/Docusate Sodium 1 Tablet 2 TABLET PO ×2 (09:19→20:59)
[2020-01-13] MEDS: Insulin Lispro 100 UNIT/ML INSULN.PEN 18 UNIT SC (09:22)
[2020-01-13] MEDS: Fluticasone 0.05% 1 SPRAY NASAL.SRY NASAL (09:23)
[2020-01-13] MEDS: Polyethylene Glycol 3350 17 GM PACKET PO (11:44)
[2020-01-13] MEDS: Ceftriaxone 1 GM/50 ML BAG IV (11:44)
[2020-01-13] MEDS: Furosemide 20 MG Tablet 60 MG PO ×2 (11:44→17:28)
--- NOTE | 2020-01-13 12:06 | PCM.PROGNOTE ---
<Qian Mckeon - Last Filed: 01/13/20 12:31> Subjective: Patient seen and examined. Complains of abdominal distention and constipation. Denies shortness of breath, chest pain. - Physical Exam Vitals/I&O's: Vital Signs Temp Pulse Resp BP Pulse Ox 98.1 F 111 H 22 H 121/84 H 97 01/13/20 11:23 01/13/20 11:23 01/13/20 11:23 01/13/20 11:23 01/13/20 11:23 Oxygen Flow Rate (L/min) 2.5 Oxygen Delivery Method Bi-pap Weight: 317 lb 14.505 oz Body Mass Index (BMI) 45.1 Finger Stick Blood Glucose 128 Intake and Output for Last 24 Hours 01/11/20 01/12/20 01/13/20 23:59 23:59 23:59 Intake Total 1618.97 / 1618.97 1565 / 1565 720 / 720 Output Total 2850 / 2850 1225 / 1225 500 / 500 Balance -1231.03 / -1231.03 340 / 340 220 / 220 General: Alert, Oriented x3, Cooperative HEENT: Atraumatic, PERRLA, EOMI, Normocephalic Neck: Supple, No JVD, Negative Carotid Bruits Lungs: Clear to auscultation, Diminished Cardiovascular: - - Atrial fibrillation, tachycardic Abdomen: Bowel Sounds Present, Soft, Non Tender, Non-Distended, Distended, Obese Extremities: Capillary Refill Less than 3 Seconds, Edema - +2 bilateral lower extremities Skin: No rashes, No breakdown Musculoskeletal: No Tenderness to Palpation of Joints or Extremities Neurological: Cranial nerves II-XII grossly intact, Neuro grossly intact Psych/Mental Status: Normal Affect, Appropriate Microbiology Past 72 Hours 01/10/20 06:45 Sputum, Tracheal Aspirate Gram Stain - Final 01/10/20 06:45 Sputum, Tracheal Aspirate Respiratory Culture - Final Culture exhibits no growth. 01/09/20 07:45 Blood Culture (Wb) - Anticubital Left Blood Culture - Preliminary No growth in 48 hours. 01/09/20 07:45 Blood Culture (Wb) - Anticubital Right Blood Culture - Preliminary No growth in 48 hours. 01/09/20 08:00 Urine Catheter - Catheter Urine Culture - Final Klebsiella pneumoniae sp pneum Laboratory Results 01/12/20 17:03: POC Glucose 122 H 01/12/20 22:58: POC Glucose 45 L 01/12/20 23:21: POC Glucose 38 L* 01/12/20 23:43: POC Glucose 99 01/12/20 23:45: Glucose 106 01/13/20 00:55: POC Glucose 93 01/13/20 02:04: POC Glucose 90 01/13/20 06:05: WBC 7.0, RBC 3.19 L, Hgb 9.0 L, Hct 30.1 L, MCV 94.4 H, MCH 28.2, MCHC 29.9 L, RDW Std Deviation 48.6 H, RDW Coeff of [place] 14.4, Plt Count 654 H, MPV 9.4, Immature Gran % (Auto) 0.300, Neut % (Auto) 86.6 H, Lymph % (Auto) 6.6 L, [place] % (Auto) 5.5, Eos % (Auto) 0.7, Baso % (Auto) 0.3, Absolute Neuts (auto) 6.0, Absolute Lymphs (auto) 0.46 L, Nucleated RBC % 0, Differential Comment SCANNED, Reactive Lymphocytes RARE 01/13/20 06:05: Sodium 138, Potassium 3.8, Chloride 100, Carbon Dioxide 33.0 H, Anion Gap 5, BUN 35 H, Creatinine 1.37 H, Estim Creat Clear Calc 58.47, Est GFR (MDRD) Af Amer 68, Est GFR (MDRD) Non-Af 56 L, BUN/Creatinine Ratio 25.5 H, Glucose 109 H, Calcium 8.3 L, Magnesium 2.0 01/13/20 07:02: POC Glucose 92 Current Medications Acetaminophen (Tylenol) 650 mg PO Q6H PRN PRN PRN Reason: Pain Score 1-3 /Temp>100.7 Last Admin: 01/12/20 20:32 Dose: 650 mg Documented by: Albuterol Sulfate (Ventolin Aerosols) 2.5 mg INHALATION Q2H PRN PRN PRN Reason: SOB &/OR WHEEZING Last Admin: 01/13/20 11:09 Dose: 2.5 mg Documented by: Amiodarone HCl (Cordarone) 200 mg PO DAILY [facility] Last Admin: 01/13/20 09:17 Dose: 200 mg Documented by: Apixaban (Eliquis) 5 mg PO BID [facility] Last Admin: 01/13/20 09:18 Dose: 5 mg Documented by: Aspirin (Aspirin, Baby) 162 mg PO DAILY@0800 [facility] Last Admin: 01/13/20 09:15 Dose: 162 mg Documented by: Atorvastatin Calcium (Lipitor) 80 mg PO QHS [facility] Last Admin: 01/12/20 22:49 Dose: 80 mg Documented by: Bisacodyl (Dulcolax) 10 mg PO QHS [facility] Last Admin: 01/12/20 23:20 Dose: Not Given Documented by: Bisacodyl (Dulcolax) 10 mg RECTAL DAILY [facility] Stop: 01/14/20 10:01 Fluticasone Propionate (Flonase Nasal [place]) 1 spray NASAL DAILY [facility] Last Admin: 01/13/20 09:23 Dose: 1 spray Documented by: Furosemide (Lasix) 60 mg PO BID@1000,1800 [facility] Last Admin: 01/13/20 11:44 Dose: 60 mg Documented by: [facility] Last Admin: 01/13/20 09:16 Dose: 200 mg Documented by: Guaifenesin (Mucinex) 600 mg PO BID [facility] Last Admin: 01/13/20 09:18 Dose: 600 mg Documented by: Sodium Chloride () 250 mls @ 15 mls/hr IV .[id number] PRN PRN Reason: Saline Flush Sodium Chloride () 250 mls @ 15 mls/hr IV .[id number] PRN PRN Reason: Additional IVPB Infusion Ceftriaxone Sodium (Rocephin) 1 gm in 50 mls @ 100 mls/hr IV Q24 [facility] Last Admin: 01/13/20 11:44 Dose: 100 mls/hr Documented by: Insulin Glargine (Lantus (Bkc)) 30 units SC BID@0800,1700 [facility] Insulin Human Lispro (Humalog Kwikpen (Bkc)) 18 unit SC TIDCM [facility] Last Admin: 01/13/20 11:45 Dose: Not Given Documented by: Insulin Human Lispro (Humalog Kwikpen (Bkc)) 0 unit SC ACHS [facility]; Protocol Last Admin: 01/13/20 11:45 Dose: Not Given Documented by: Lidocaine (Lidoderm Patch) 1 patch TOPICAL DAILY PRN PRN Reason: PAIN 1-10 Loratadine (Claritin) 5 mg PO DAILY [facility] Last Admin: 01/13/20 09:16 Dose: 5 mg Documented by: Losartan Potassium (Cozaar) 50 mg PO DAILY [facility] Last Admin: 01/13/20 09:17 Dose: 50 mg Documented by: Magnesium Oxide (Mag-Ox 400) 400 mg PO DAILY [facility] Last Admin: 01/13/20 09:18 Dose: 400 mg Documented by: Metoprolol Tartrate (Lopressor (Beta Chidi)) 100 mg PO BID [facility] Morphine Sulfate () 2 - 4 mg IV Q4H PRN PRN PRN Reason: Pain Score 1-10 Last Admin: 01/13/20 05:16 Dose: 4 mg Documented by: Oxycodone HCl (Oxyir) 5 mg PO Q4H PRN PRN PRN Reason: Pain Score 4-510 Last Admin: 01/12/20 14:30 Dose: 5 mg Documented by: Polyethylene Glycol (Miralax) 17 gm PO DAILY [facility] Last Admin: 01/13/20 11:44 Dose: 17 gm Documented by: Senna/Docusate Sodium (Senokot-S, Leela-Colace) 2 tablet PO BID [facility] Last Admin: 01/13/20 09:19 Dose: 2 tablet Documented by: Sodium Chloride () 10 - 40 ml IV UD PRN PRN Reason: SALINE FLUSH Last Admin: 01/13/20 05:17 Dose: 20 ml Documented by: Temazepam (Restoril) 15 mg PO QHS PRN PRN Reason: INSOMNIA Medical Necessity - Tobacco Use Smoking Status: Never smoker Assessment/Plan All Active Problems (Last Updated 12/03/19 @ 12:27 by Serena Wilson) Atrial flutter with rapid ventricular response (Acute) Respiratory failure with hypoxia and hypercapnia (Acute) Atrial fibrillation with rapid ventricular response (Acute) S/P CABG x 4 (Acute) Acute exacerbation of CHF (congestive heart failure) (Resolved) 1. Acute combined hypoxic and hypercapnic respiratory failure secondary to acute on chronic CHF with preserved ejection fraction and suspected healthcare associated pneumonia-cardiology and pulmonary medicine following. Echocardiogram demonstrates an EF of 65%. Chest CT without PE or aortic dissection. Bilateral pleural effusions. BNP greater than 600. Patient with initial fever and leukocytosis which has improved. Patient extubated 01/11/2020. Oxygen now stable on nasal cannula and intermittent BiPAP. Transition from IV Zosyn to oral Levaquin to complete course of antibiotics. Continue Lasix. Strict I&O. Daily weight. Cayden wraps bilateral lower extremities. Ambulatory pulse ox prior to discharge. 2. Severe sepsis secondary to Klebsiella UTI and suspected healthcare associated pneumonia-transition from IV Zosyn to oral Levaquin to complete course as noted above. Blood culture showed no growth. 3. Constipation-KUB demonstrates nonspecific bowel gas pattern, constipation. Bowel regimen ordered. Encourage ambulation. 4. Recent new onset atrial fibrillation with RVR-rate improved. Continue Eliquis, amiodarone, metoprolol. 5. NSTEMI/CAD-recent CABG in November 2019 at [facility] due to triple vessel disease. Continue aspirin, metoprolol, statin, losartan. Cardiology following. 6. Thrombocytosis-unclear etiology. Trend CBC. Recommend outpatient follow-up with hematology. 7. Macrocytic anemia-stable. Trend CBC. Stool for occult blood pending. 8. Type 2 diabetes mellitus-continue insulin regimen. Lantus decreased to 30 units twice daily due to hypoglycemia overnight. Continue sliding scale and scheduled Humalog. 9. Hypertension-stable, continue amlodipine, losartan. Additionally added on Lasix and metoprolol. 10. Hyperlipidemia-continue high-dose statin. 11. Morbid obesity-encouraged diet lifestyle modifications. 12. Suspected VASILIY-recommend outpatient pulmonary follow-up, PSG. DVT prophylaxis- Eliquis This patient was seen by ADALID Landeros under the supervision of Dr. Perry. <Mark Perry - Last Filed: 01/13/20 14:08> Subjective: Patient complain of abdominal distention. Patient has history of constipation and has small inadequate bowel movement 1 to 2 days ago. Denies shortness of breath or chest pain. Complaining of bilateral lower quadrant abdominal pain. Discussed with the night hospitalist and had ordered KUB x-ray which was reviewed. Mild tachycardia and tachypnea probably secondary to pain. Pulse ox 96% on 2 L of oxygen Objective: On exam General: Alert, Oriented x3, Cooperative HEENT: Atraumatic, PERRLA, EOMI, Normocephalic Oral: -Oral mucosa moist. Neck: Supple, No JVD, Negative Carotid Bruits Lungs: Diminished air entry and bilateral lung bases, Rhonchi, On rescue BiPAP as needed Cardiovascular: Regular rate, Regular Rhythm, Normal S1, Normal S2, No murmurs Abdomen: Bowel Sounds Present but sluggish, distention of abdomen. Tenderness present on both lower quadrants mainly in the right side. Extremities: Capillary Refill Less than 3 Seconds, Bilateral leg edema Skin: No rashes, No breakdown Musculoskeletal: No Tenderness to Palpation of Joints or Extremities, Arthritic Changes Neurological: Cranial nerves II-XII grossly intact, Deep Tendon Reflexes 2+/4 and Symmetrical, Neuro grossly intact Psych/Mental Status: Normal Affect, Appropriate - Physical Exam Vitals/I&O's: Vital Signs Temp Pulse Resp BP Pulse Ox 97.9 F 140 H 22 H 109/79 96 01/13/20 12:57 01/13/20 13:31 01/13/20 12:57 01/13/20 12:57 01/13/20 12:57 Oxygen Flow Rate (L/min) 2 Oxygen Delivery Method Nasal Cannula Weight: 317 lb 14.505 oz Body Mass Index (BMI) 45.1 Finger Stick Blood Glucose 128 Intake and Output for Last 24 Hours 01/11/20 01/12/20 01/13/20 23:59 23:59 23:59 Intake Total 1618.97 / 1618.97 1565 / 1565 770 / 770 Output Total 2850 / 2850 1225 / 1225 500 / 500 Balance -1231.03 / -1231.03 340 / 340 270 / 270 Microbiology Past 72 Hours 01/10/20 06:45 Sputum, Tracheal Aspirate Gram Stain - Final 01/10/20 06:45 Sputum, Tracheal Aspirate Respiratory Culture - Final Culture exhibits no growth. 01/09/20 07:45 Blood Culture (Wb) - Anticubital Left Blood Culture - Preliminary No growth in 48 hours. 01/09/20 07:45 Blood Culture (Wb) - Anticubital Right Blood Culture - Preliminary No growth in 48 hours. 01/09/20 08:00 Urine Catheter - Catheter Urine Culture - Final Klebsiella pneumoniae sp pneum Laboratory Results 01/12/20 17:03: POC Glucose 122 H 01/12/20 22:58: POC Glucose 45 L 01/12/20 23:21: POC Glucose 38 L* 01/12/20 23:43: POC Glucose 99 01/12/20 23:45: Glucose 106 01/13/20 00:55: POC Glucose 93 01/13/20 02:04: POC Glucose 90 01/13/20 06:05: WBC 7.0, RBC 3.19 L, Hgb 9.0 L, Hct 30.1 L, MCV 94.4 H, MCH 28.2, MCHC 29.9 L, RDW Std Deviation 48.6 H, RDW Coeff of [place] 14.4, Plt Count 654 H, MPV 9.4, Immature Gran % (Auto) 0.300, Neut % (Auto) 86.6 H, Lymph % (Auto) 6.6 L, [place] % (Auto) 5.5, Eos % (Auto) 0.7, Baso % (Auto) 0.3, Absolute Neuts (auto) 6.0, Absolute Lymphs (auto) 0.46 L, Nucleated RBC % 0, Differential Comment SCANNED, Reactive Lymphocytes RARE 01/13/20 06:05: Sodium 138, Potassium 3.8, Chloride 100, Carbon Dioxide 33.0 H, Anion Gap 5, BUN 35 H, Creatinine 1.37 H, Estim Creat Clear Calc 58.47, Est GFR (MDRD) Af Amer 68, Est GFR (MDRD) Non-Af 56 L, BUN/Creatinine Ratio 25.5 H, Glucose 109 H, Calcium 8.3 L, Magnesium 2.0 01/13/20 07:02: POC Glucose 92 01/13/20 11:43: POC Glucose 104 01/13/20 13:35: POC Glucose 134 H Current Medications Acetaminophen (Tylenol) 650 mg PO Q6H PRN PRN PRN Reason: Pain Score 1-3 /Temp>100.7 Last Admin: 01/12/20 20:32 Dose: 650 mg Documented by: Albuterol Sulfate (Ventolin Aerosols) 2.5 mg INHALATION Q2H PRN PRN PRN Reason: SOB &/OR WHEEZING Last Admin: 01/13/20 11:09 Dose: 2.5 mg Documented by: Amiodarone HCl (Cordarone) 200 mg PO DAILY [facility] Last Admin: 01/13/20 09:17 Dose: 200 mg Documented by: Apixaban (Eliquis) 5 mg PO BID [facility] Last Admin: 01/13/20 09:18 Dose: 5 mg Documented by: Aspirin (Aspirin, Baby) 162 mg PO DAILY@0800 [facility] Last Admin: 01/13/20 09:15 Dose: 162 mg Documented by: Atorvastatin Calcium (Lipitor) 80 mg PO QHS [facility] Last Admin: 01/12/20 22:49 Dose: 80 mg Documented by: Bisacodyl (Dulcolax) 10 mg PO QHS [facility] Last Admin: 01/12/20 23:20 Dose: Not Given Documented by: Bisacodyl (Dulcolax) 10 mg RECTAL DAILY [facility] Stop: 01/14/20 10:01 Last Admin: 01/13/20 12:54 Dose: 10 mg Documented by: Calcium Carbonate (Tums) 500 mg PO Q6H PRN PRN PRN Reason: INDIGESTION Fluticasone Propionate (Flonase Nasal Marion) 1 spray NASAL DAILY [facility] Last Admin: 01/13/20 09:23 Dose: 1 spray Documented by: Furosemide (Lasix) 60 mg PO BID@1000,1800 [facility] Last Admin: 01/13/20 11:44 Dose: 60 mg Documented by: [facility]) [facility] Last Admin: 01/13/20 09:16 Dose: 200 mg Documented by: Guaifenesin (Mucinex) 600 mg PO BID [facility] Last Admin: 01/13/20 09:18 Dose: 600 mg Documented by: Sodium Chloride () 250 mls @ 15 mls/hr IV .[id number] PRN PRN Reason: Saline Flush Sodium Chloride () 250 mls @ 15 mls/hr IV .[id number] PRN PRN Reason: Additional IVPB Infusion Insulin Glargine (Lantus (Bkc)) 30 units SC BID@0800,1700 [facility] Insulin Human Lispro (Humalog Kwikpen (Bkc)) 18 unit SC TIDCM [facility] Last Admin: 01/13/20 11:45 Dose: Not Given Documented by: Insulin Human Lispro (Humalog Kwikpen (Bkc)) 0 unit SC ACHS [facility]; Protocol Last Admin: 01/13/20 11:45 Dose: Not Given Documented by: Levofloxacin (Levaquin Tablet) 750 mg PO DAILY@0600 [facility] Stop: 01/17/20 06:01 Lidocaine (Lidoderm Patch) 1 patch TOPICAL DAILY PRN PRN Reason: PAIN 1-10/10 Loratadine (Claritin) 5 mg PO DAILY [facility] Last Admin: 01/13/20 09:16 Dose: 5 mg Documented by: Losartan Potassium (Cozaar) 50 mg PO DAILY [facility] Last Admin: 01/13/20 09:17 Dose: 50 mg Documented by: Magnesium Oxide (Mag-Ox 400) 400 mg PO DAILY [facility] Last Admin: 01/13/20 09:18 Dose: 400 mg Documented by: Metoprolol Tartrate (Lopressor (Beta Chidi)) 100 mg PO BID [facility] Morphine Sulfate () 2 - 4 mg IV Q4H PRN PRN PRN Reason: Pain Score 1-10/10 Last Admin: 01/13/20 05:16 Dose: 4 mg Documented by: Oxycodone HCl (Oxyir) 5 mg PO Q4H PRN PRN PRN Reason: Pain Score 4-5/10 Last Admin: 01/12/20 14:30 Dose: 5 mg Documented by: Polyethylene Glycol (Miralax) 17 gm PO DAILY [facility] Last Admin: 01/13/20 11:44 Dose: 17 gm Documented by: Senna/Docusate Sodium (Senokot-S, Leela-Colace) 2 tablet PO BID [facility] Last Admin: 01/13/20 09:19 Dose: 2 tablet Documented by: Sodium Chloride () 10 - 40 ml IV UD PRN PRN Reason: SALINE FLUSH Last Admin: 01/13/20 05:17 Dose: 20 ml Documented by: Temazepam (Restoril) 15 mg PO QHS PRN PRN Reason: INSOMNIA Assessment/Plan This patient was seen in conjunction with INTERNAL CONTROL SPECIALIST, Qian. I have independently interviewed and examined the patient and reviewed pertinent history, examination findings, laboratory and plan of management. I have reviewed the note and agree with the documented findings with the few additional points. This is a 59-year-old admitted with a complaint of acute onset shortness of breath and mild fever. 1. Acute hypoxic and hypercapnic respiratory failure status post intubation: Currently patient is on 35% FiO2, PEEP 5. Vent management as per source water protection specialist. ABG 7.26/78/67 on BiPAP 24/12 on 40% FiO2 on 01/09/2020. The patient was extubated on 01/10 and is on rescue BiPAP therapy as needed and at night. 2. Severe sepsis possible secondary to suspected healthcare associated pneumonia and/or Klebsiella pneumoniae UTI: On IV vancomycin and Zosyn. Patient was discharged 2 days ago. Chest x-ray independently reviewed and shows vascular congestion and mild CHF with small bilateral pleural effusion, bibasilar atelectasis and/or infiltrate worse on the left side. Patient has leukocytosis and thrombocytosis which is improving. UA shows WBC 5-10 cells, positive nitrite and LE 25. 3+ bacteria.Urinary antigens are negative. COVID test negative. Sputum tracheal aspirate shows no growth. Lactic acid normal. Urine culture shows Klebsiella pneumonia. On IV ceftriaxone. 3. Nonstemi with history of coronary artery disease status post CAB.4, trended down to 3.3. Seems secondary to demand ischemia from severe hypoxia. Patient recently had a cath few days ago showed patent graft and did not require PCI. Troponin was up to 4.4. This is likely due to demand ischemia from severe hypoxia. Patient recently had a cath a few days ago which showed patent grafts and did not require PCI. 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 On Lipitor and atorvastatin. On aspirin, Eliquis, metoprolol, losartan. Nitrate added. 4. Acute on chronic HFpEF BNP was around 635. Continue IV Lasix 40 mg twice daily. Monitor intake and output. Fluid restrictions 1500 cc daily. 5/6: Echo reported as normal LV size with EF 65%. Mild to moderate TR, PASP 42 mmHg 5. Hyperkalemia: K was 6.8. Patient had Kayexalate. Repeat K5.3. 6 Type 2 diabetes mellitus: on lantus. ISS. Accuchecks ACHS 7 recent A. fib during early postoperative CABG: Currently rate controlled. On amiodarone and metoprolol as well as Eliquis 8 normocytic normochromic anemia, acute on chronic: Stool for occult blood ordered. Hemoglobin dropped from 9.8-8.0. 9. Abdominal pain distention mostly secondary to his severe constipation. KUB reviewed. Shows nonspecific bowel gas and colonic feces. On bowel regimen of senna S, Dulcolax suppository and soapsuds enema. If not better, will add Dulcolax tablets. DVT prophylaxis: Already on Eliquis CODE STATUS: Full code Patient want outpatient sleep study and PFT. Discussed with Dr. Heaton and skilled nursing case manager. I have discussed my assessment with INTERNAL CONTROL SPECIALIST, Qian and orders have been reviewed. Inpatient E&M: 86789 Subs Hosp L2
[2020-01-13] MEDS: Bisacodyl 10 MG Suppository RECTAL (12:54)
[2020-01-13 13:01] LABS: Bedside Glucose 104 mg/dL (70-110)
[2020-01-13] MEDS: Magnesium Citrate 300 ML PO (13:25)
[2020-01-13 13:40] LABS: Bedside Glucose 134 mg/dL (70-110)
--- NOTE | 2020-01-13 13:58 | CASEMGMT ---
Per Dr. Perry/Dr. Heaton, they would like pt set up for OP sleep study after discharge. This RN CM spoke with Felisha in the sleep lab and she states that pt will need precert for sleep study and the soonest opening is 01/26/2020 at 2000. Pt set up for this time and Sleep study instructions as well as date/time provided to pt at this time and copy left on pt chart for reference. Hang FIRST GRADE TEACHER-C updated at this time, voices understanding. H&P faxed to [facility] at this time. Green sheet left on pt chart for [facility]. Bakari PENNINGTON CM
[2020-01-13] MEDS: Insulin Lispro 100 UNIT/ML INSULN.PEN SC (17:25)
[2020-01-13 17:35] LABS: Bedside Glucose 194 mg/dL (70-110)
[2020-01-13] MEDS: Calcium Carbonate 500 MG Tablet PO (18:16)
[2020-01-13] MEDS: Atorvastatin Calcium 80 MG Tablet PO (20:59)
[2020-01-13] MEDS: Bisacodyl 5 MG Tablet 10 MG PO (20:59)
[2020-01-13] MEDS: Metoprolol Tartrate 100 MG Tablet PO (21:01)
[2020-01-13 21:40] LABS: Bedside Glucose 196 mg/dL (70-110)
[2020-01-14] VITALS (43 sets, daily range): BP systolic 78–111; BP diastolic 37–88; PULSE 50–100; RESP 12–41; TEMP 35.9–37.4; O2SAT 91–100
[2020-01-14] MEDS: levoFLOXacin 750 MG Tablet PO (05:56)
[2020-01-14 06:55] LABS: Absolute Lymphocyte Count 0.72 X10^3/uL (0.83-4.51); Absolute Neutrophil Count 13.4 X10^3/uL (2.0-7.7); Basophil# 0.04 X10^3/uL; Basophil% 0.3 % (0-1); Eosinophil# 0.02 X10^3/uL; Eosinophils% 0.1 % (0-5); Hematocrit 27.7 % (40-54); Hemoglobin 8.1 g/dL (13.0-16.5); Lymphocyte # 0.72 X10^3/ul (4.0); Lymphocyte % 4.7 % (19-41); Mean Corp Hgb Conc 29.2 g/dL (32-36); Mean Corpuscular Hgb 27.8 pg (27.0-32.0); Mean Corpuscular Volume 95.2 fL (80-94); Mean Platelet Vol. 9.8 fl (6.2-12.0); Monocyte# 0.87 X10^3/uL; Monocyte% 5.7 % (0-10); NRBC Flagged by Analyzer 0 % (0-5); Neutrophil # 13.42 X10^3/uL (2.7-7.7); Neutrophil % 88.3 % (47-70); POSITIVE MORPHOLOGY YES; Platelet Count 546 K/mm3 (150-450); RBC Distribution Width CV 14.5 % (11.6-14.6); RBC Distribution Width SD 50.3 fl (35.1-43.9); Red Blood Count 2.91 M/mm3 (4.6-6.2); White Blood Count 15.2 K/mm3 (4.4-11.0)
[2020-01-14 06:56] LABS: Differential Indicated SCAN CRITERIA MET
[2020-01-14 07:12] LABS: Differential Comment SCANNED
[2020-01-14 07:15] LABS: Anion Gap 6 (5-15); BUN 44 mg/dL (7-18); BUN/Creat Ratio 15.3 RATIO (10-20); Calcium,Total 8.2 mg/dL (8.5-10.1); Chloride 95 mmol/L (98-107); Creatinine, Serum 2.88 mg/dL (0.70-1.30); EST Glomerular Filtration Rate 24 mL/min (>60); Est Glom Filt Rate - Afr Amer 29 mL/min (>60); Estimated Creatinine Clearance 27.81 ml/min; Glucose 199 mg/dL (74-106); Potassium 5.2 mmol/L (3.5-5.1); Sodium Level 134 mmol/L (136-145)
[2020-01-14] MEDS: Albuterol 2.5 MG/3 ML VIAL.NEB. INHALATION (07:37)
[2020-01-14 08:20] LABS: Bedside Glucose 188 mg/dL (70-110)
[2020-01-14] MEDS: Aspirin 81 MG TAB.CHEW 162 MG PO (08:25)
[2020-01-14] MEDS: Insulin Lispro 100 UNIT/ML INSULN.PEN 18 UNIT SC ×2 (08:27→12:26)
[2020-01-14] MEDS: Insulin Lispro 100 UNIT/ML INSULN.PEN SC ×2 (08:28→12:27)
[2020-01-14] MEDS: Gabapentin 100 MG Capsule 200 MG PO (08:35)
--- NOTE | 2020-01-14 09:49 | PN.CARD_ITS ---
Subjectve: Patient seen and evaluated. Appears to be doing well. Breathing better. Objective: Vital Signs Temp Pulse Resp BP Pulse Ox 98.9 F 100 20 H 94/50 L 95 01/14/20 08:39 01/14/20 08:39 01/14/20 08:39 01/14/20 08:39 01/14/20 08:39 Oxygen Flow Rate (L/min) 3 Oxygen Delivery Method Nasal Cannula Weight: 317 lb 14.505 oz Body Mass Index (BMI) 45.1 Finger Stick Blood Glucose 128 Intake and Output for Last 24 Hours 01/12/20 01/13/20 01/14/20 23:59 23:59 23:59 Intake Total 1565 / 1565 1700 / 1700 200 / 200 Output Total 1225 / 1225 500 / 500 0 / 0 Balance 340 / 340 1200 / 1200 200 / 200 General: Awake, Alert, Oriented x 3 HEENT: PERRL, EOMI, Sclera Non Icteric Neck: Supple, Good ROM, No Lymph Node Enlargement Lungs: Clear to auscultation Cardiovascular: Irregular Rhythm, Normal S1, Normal S2, No Murmurs, No Rubs, No Gallops Vascular: No Carotid Bruits, Normal Femoral Pulses, Normal Radial Pulses, Normal Dorsalis Pedal Pulse, Normal Posterior Tibial Pulses Abdomen: Bowel Sounds Present, Soft, Non Tender, No HSM, No Organomegaly Extremities: No Cyanosis, No Clubbing, Trace RLE Edema, Trace LLE Edema Musculoskeletal: No Erythema Skin: No Rashes Lymphatic: No Lymph Node Enlargement Neurological: No Focal Motor or Sensory Deficit Psych/Mental Status: Appropriate 01/14/20 06:32: WBC 15.2 H, RBC 2.91 L, Hgb 8.1 L, Hct 27.7 L, MCV 95.2 H, MCH 27.8, MCHC 29.2 L, Plt Count 546 H, MPV 9.8, Immature Gran % (Auto) 0.900, Neut % (Auto) 88.3 H, Lymph % (Auto) 4.7 L, [place] % (Auto) 5.7, Eos % (Auto) 0.1, Baso % (Auto) 0.3, Absolute Neuts (auto) 13.4 H, Nucleated RBC % 0 01/14/20 06:32: Sodium 134 L, Potassium 5.2 H, Chloride 95 L, Carbon Dioxide 33.0 H, Anion Gap 6, BUN 44 H, Creatinine 2.88 H, Est GFR (MDRD) Af Amer 29 L, Est GFR (MDRD) Non-Af 24 L, BUN/Creatinine Ratio 15.3, Glucose 199 H, Calcium 8.2 L Rhythm: EKG: ECHO: Stress Test: Cardiac Cath: PCI: CT Surgery: Holter monitor: EPS: PPM: CXR: Chest CT Scan: Medical Necessity - Tobacco Use Smoking Status: Never smoker Assessment/Plan 1. Acute decompensated heart failure * He presented within 72 hours post discharge with a decompensation of his heart failure. The above appears to be diastolic in nature. The exact precipitating etiology is not entirely clear to me at this time. * Would recommend continuing Lasix which would be converted to oral. * Previous echocardiogram was reviewed, and a repeat echocardiogram demonstrated preserved ejection fraction. * It does not appear that patient has had an acute ST elevation myocardial infarction but continued coronary ischemia cannot be completely excluded * Would resume beta-ronen * Will continue fluid restriction. 2. Hypertension * His blood pressure is under good control and no changes were made with respect to the above * 3. Atrial fibrillation * His ventricular response rate is uncontrolled at this particular time. * We will continue with anticoagulation and the amiodarone * I would suggest increasing the metoprolol to 100 twice daily 4. Coronary artery disease * He has known coronary artery disease status post recent coronary artery bypass surgery. His bypass anatomy was recently evaluated. He does have a tenuous saphenous vein graft to the right coronary artery but it appears the distal vessel is small and intervention is not being contemplated based on his cardiac catheterization from 2 week ago. Will recommend aggressive medical therapy. * Continue nitrates for now * Will transition to oral nitrates as well * 5. Hyperlipidemia * Patient will continue with lipid-lowering risk factor modification * * Overall he appears to be doing fairly well. I will however suggest that he be followed up as an outpatient
--- NOTE | 2020-01-14 09:56 | RAD_ITS ---
STUDY: X-RAY - ABDOMEN/PELVIS REASON FOR EXAM: Male, 59 years old. DISTENTION TECHNIQUE: 3 views COMPARISON: None. FINDINGS: Slight effusion/atelectasis at the visualized lung bases. There is an unremarkable bowel gas pattern. There is no demonstrated free abdominal air. Possible 5 mm stone over the lower pole of the left kidney. Normal soft tissue structures. The degenerative vertebral changes. RAD/Abdomen Single View IMPRESSION: No sign of bowel obstruction. Mild effusion/atelectasis at the lung bases. Possible left renal calculus. Electronically Signed: Valdez Parekh DO at 11:02 EDT Tel [phone], Service support ,
--- NOTE | 2020-01-14 10:30 | RAD_ITS ---
STUDY: X-RAY CHEST REASON FOR EXAM: Male, 59 years old. SOB, LEUKOCYTOSIS TECHNIQUE: Frontal and lateral views COMPARISON: January 09, 2020 FINDINGS: Stable sternotomy wires. The lungs are not fully expanded. Left basilar effusion with infiltrate/atelectasis. Cardiomegaly. Normal mediastinum and riana. Normal visualized pulmonary arteries. Normal visualized aortic arch and descending thoracic aorta. Normal visualized thoracic spine. Normal visualized ribs, clavicles, and shoulders. There is no demonstrated abnormality of the visualized soft tissue structures of the upper abdomen. RAD/Chest PA and Lateral IMPRESSION: Left basilar effusion with infiltrate/atelectasis, left more than right. Cardiomegaly. Electronically Signed: Valdez Parekh DO at 11:02 EDT Tel [phone], Service support ,
[2020-01-14] MEDS: Aspirin 81 MG TAB.CHEW PO (11:06)
[2020-01-14] MEDS: APIXABAN 5 MG TABLET PO (11:06)
[2020-01-14] MEDS: Amiodarone 200 MG Tablet PO (11:06)
[2020-01-14] MEDS: Metoprolol Tartrate 100 MG Tablet PO (11:06)
[2020-01-14] MEDS: Magnesium Oxide 400 MG Tablet PO (11:06)
[2020-01-14] MEDS: Loratadine 10 MG Tablet 5 MG PO (11:07)
[2020-01-14] MEDS: Fluticasone 0.05% 1 SPRAY NASAL.SRY NASAL (11:08)
[2020-01-14] MEDS: guaiFENesin 600 MG Tablet PO (11:08)
[2020-01-14 12:31] LABS: Bedside Glucose 200 mg/dL (70-110)
--- NOTE | 2020-01-14 12:46 | PN_ITS ---
<Qian Mckoen - Last Filed: 01/14/20 13:06> Subjective: Patient seen and examined. Has had multiple bowel movements overnight and this morning. Denies further abdominal pain. Patient appears dyspneic however states he does not feel short of breath. Denies cough, fever, chills. Denies chest pain. Patient very adamant that he would like to go home today, discussed in length that his kidney function has significantly increased and feel he should stay another day to have this monitored closely. Plan to repeat lab work this afternoon and pending repeat results, will discuss this further. - Physical Exam Vitals/I&O's: Vital Signs Temp Pulse Resp BP Pulse Ox 98.6 F 70 20 H 95/51 L 94 01/14/20 12:13 01/14/20 12:13 01/14/20 12:13 01/14/20 12:13 01/14/20 12:13 Oxygen Flow Rate (L/min) 3 Oxygen Delivery Method Nasal Cannula Weight: 317 lb 14.505 oz Body Mass Index (BMI) 45.1 Finger Stick Blood Glucose 128 Intake and Output for Last 24 Hours 01/12/20 01/13/20 01/14/20 23:59 23:59 23:59 Intake Total 1565 / 1565 1700 / 1700 680 / 680 Output Total 1225 / 1225 500 / 500 0 / 0 Balance 340 / 340 1200 / 1200 680 / 680 General: Alert, Oriented x3, Cooperative HEENT: Atraumatic, PERRLA, EOMI, Normocephalic Neck: Supple, No JVD, Negative Carotid Bruits Lungs: Clear to auscultation, Diminished, Tachypneic Cardiovascular: - - Atrial fibrillation, rate controlled Abdomen: Bowel Sounds Present, Soft, Non Tender, Non-Distended, Obese Extremities: No clubbing, No cyanosis, Edema - +2 bilateral lower extremities Skin: No rashes, No breakdown Musculoskeletal: No Tenderness to Palpation of Joints or Extremities Neurological: Cranial nerves II-XII grossly intact, Neuro grossly intact Psych/Mental Status: Anxious Microbiology Past 72 Hours 01/13/20 18:40 Sputum, Expectorated/Coughed Gram Stain - Final 01/09/20 07:45 Blood Culture (Wb) - Anticubital Left Blood Culture - Final No growth in 5 days. 01/09/20 07:45 Blood Culture (Wb) - Anticubital Right Blood Culture - Final No growth in 5 days. 01/10/20 06:45 Sputum, Tracheal Aspirate Gram Stain - Final 01/10/20 06:45 Sputum, Tracheal Aspirate Respiratory Culture - Final Culture exhibits no growth. Laboratory Results 01/13/20 11:43: POC Glucose 104 01/13/20 13:35: POC Glucose 134 H 01/13/20 17:21: POC Glucose 194 H 01/13/20 20:54: POC Glucose 196 H 01/14/20 06:32: WBC 15.2 H, RBC 2.91 L, Hgb 8.1 L, Hct 27.7 L, MCV 95.2 H, MCH 27.8, MCHC 29.2 L, RDW Std Deviation 50.3 H, RDW Coeff of [place] 14.5, Plt Count 546 H, MPV 9.8, Immature Gran % (Auto) 0.900, Neut % (Auto) 88.3 H, Lymph % (Auto) 4.7 L, [place] % (Auto) 5.7, Eos % (Auto) 0.1, Baso % (Auto) 0.3, Absolute Neuts (auto) 13.4 H, Absolute Lymphs (auto) 0.72 L, Nucleated RBC % 0, Differential Comment SCANNED 01/14/20 06:32: Sodium 134 L, Potassium 5.2 H, Chloride 95 L, Carbon Dioxide 33.0 H, Anion Gap 6, BUN 44 H, Creatinine 2.88 H, Estim Creat Clear Calc 27.81, Est GFR (MDRD) Af Amer 29 L, Est GFR (MDRD) Non-Af 24 L, BUN/Creatinine Ratio 15.3, Glucose 199 H, Calcium 8.2 L 01/14/20 08:16: POC Glucose 188 H 01/14/20 12:25: POC Glucose 200 H Current Medications Acetaminophen (Tylenol) 650 mg PO Q6H PRN PRN PRN Reason: Pain Score 1-3 /Temp>100.7 Last Admin: 01/12/20 20:32 Dose: 650 mg Documented by: Albuterol Sulfate (Ventolin Aerosols) 2.5 mg INHALATION Q2H PRN PRN PRN Reason: SOB &/OR WHEEZING Last Admin: 01/14/20 07:37 Dose: 2.5 mg Documented by: Amiodarone HCl (Cordarone) 200 mg PO DAILY [facility] Last Admin: 01/14/20 11:06 Dose: 200 mg Documented by: Apixaban (Eliquis) 5 mg PO BID [facility] Last Admin: 01/14/20 11:06 Dose: 5 mg Documented by: Aspirin (Aspirin, Baby) 81 mg PO DAILY@0800 [facility] Last Admin: 01/14/20 11:06 Dose: 81 mg Documented by: Atorvastatin Calcium (Lipitor) 80 mg PO QHS [facility] Last Admin: 01/13/20 20:59 Dose: 80 mg Documented by: Calcium Carbonate (Tums) 500 mg PO Q6H PRN PRN PRN Reason: INDIGESTION Last Admin: 01/13/20 18:16 Dose: 500 mg Documented by: Fluticasone Propionate (Flonase Nasal [place]) 1 spray NASAL DAILY [facility] Last Admin: 01/14/20 11:08 Dose: 1 spray Documented by: [facility] Last Admin: 01/14/20 08:35 Dose: 200 mg Documented by: Guaifenesin (Mucinex) 600 mg PO BID [facility] Last Admin: 01/14/20 11:08 Dose: 600 mg Documented by: Sodium Chloride () 250 mls @ 15 mls/hr IV .[id number] PRN PRN Reason: Saline Flush Sodium Chloride () 250 mls @ 15 mls/hr IV .[id number] PRN PRN Reason: Additional IVPB Infusion Insulin Glargine (Lantus (Bkc)) 30 units SC BID@0800,1700 [facility] Last Admin: 01/14/20 08:29 Dose: 30 u Documented by: Insulin Human Lispro (Humalog Kwikpen (Bkc)) 18 unit SC TIDCM [facility] Last Admin: 01/14/20 12:26 Dose: 18 u Documented by: Insulin Human Lispro (Humalog Kwikpen (Bkc)) 0 unit SC ACHS [facility]; Protocol Last Admin: 01/14/20 12:27 Dose: 4 u Documented by: Levofloxacin (Levaquin Tablet) 750 mg PO DAILY@0600 [facility] Stop: 01/17/20 06:01 Last Admin: 01/14/20 05:56 Dose: 750 mg Documented by: Lidocaine (Lidoderm Patch) 1 patch TOPICAL DAILY PRN PRN Reason: PAIN 1-06/16 Loratadine (Claritin) 5 mg PO DAILY [facility] Last Admin: 01/14/20 11:07 Dose: 5 mg Documented by: Losartan Potassium (Cozaar) 50 mg PO DAILY [facility] Last Admin: 01/13/20 09:17 Dose: 50 mg Documented by: Magnesium Oxide (Mag-Ox 400) 400 mg PO DAILY [facility] Last Admin: 01/14/20 11:06 Dose: 400 mg Documented by: Metoprolol Tartrate (Lopressor (Beta Chidi)) 100 mg PO BID [facility] Last Admin: 01/14/20 11:06 Dose: 100 mg Documented by: Morphine Sulfate () 2 - 4 mg IV Q4H PRN PRN PRN Reason: Pain Score 1-10 Last Admin: 01/13/20 05:16 Dose: 4 mg Documented by: Oxycodone HCl (Oxyir) 5 mg PO Q4H PRN PRN PRN Reason: Pain Score 4-10 Last Admin: 01/12/20 14:30 Dose: 5 mg Documented by: Sodium Chloride () 10 - 40 ml IV UD PRN PRN Reason: SALINE FLUSH Last Admin: 01/13/20 05:17 Dose: 20 ml Documented by: Temazepam (Restoril) 15 mg PO QHS PRN PRN Reason: INSOMNIA Medical Necessity - Tobacco Use Smoking Status: Never smoker Assessment/Plan All Active Problems (Last Updated 12/03/19 @ 12:27 by Serena Wilson) Atrial flutter with rapid ventricular response (Acute) Respiratory failure with hypoxia and hypercapnia (Acute) Atrial fibrillation with rapid ventricular response (Acute) S/P CABG x 4 (Acute) Acute exacerbation of CHF (congestive heart failure) (Resolved) 1. Acute combined hypoxic and hypercapnic respiratory failure secondary to acute on chronic CHF with preserved ejection fraction and suspected healthcare associated pneumonia-cardiology and pulmonary medicine following. Echocardiogram demonstrates an EF of 65%. Chest CT without PE or aortic dissection. Bilateral pleural effusions. BNP greater than 600. Patient with initial fever and leukocytosis which has improved. Patient extubated 01/11/2020. Oxygen now stable on nasal cannula and intermittent BiPAP. Transition from IV Zosyn to oral Levaquin to complete course of antibiotics. Lasix held today due to acute kidney injury. Strict I&O. Daily weight. Cayden wraps bilateral lower extremities. Ambulatory pulse ox prior to discharge. Patient has upcoming sleep study scheduled for 01/26/2020. Repeat chest x-ray today shows left basilar effusion with infiltrate/atelectasis, left more than right. 2. Severe sepsis secondary to Klebsiella UTI and suspected healthcare associated pneumonia-transition from IV Zosyn to oral Levaquin to complete course as noted above. Blood culture showed no growth. 3. Constipation-KUB demonstrates nonspecific bowel gas pattern, constipation. Bowel regimen ordered. Patient has since had multiple bowel movements. 4. Acute kidney injury with hyperkalemia-suspect secondary to diuretic regimen along with multiple episodes of diarrhea. Plan to hold diuretic regimen today, repeat BMP in a.m. Consult nephrology. 5. Recent new onset atrial fibrillation with RVR-rate improved. Continue Eliquis, amiodarone, metoprolol. 6. NSTEMI/CAD-recent CABG in November 2019 at [facility] due to triple vessel disease. Continue aspirin, metoprolol, statin, losartan. Cardiology following. 7. Thrombocytosis-unclear etiology. Trend CBC. Recommend outpatient follow-up with hematology. 8. Macrocytic anemia-stable. Trend CBC. Stool for occult blood pending. 9. Type 2 diabetes mellitus-continue insulin regimen. Lantus decreased to 30 units twice daily due to hypoglycemia overnight. Continue sliding scale and scheduled Humalog. 10. Hypertension-stable, continue amlodipine, losartan. Additionally added on Lasix and metoprolol. 11. Hyperlipidemia-continue high-dose statin. 12. Morbid obesity-encouraged diet lifestyle modifications. 13. Suspected VASILIY-recommend outpatient pulmonary follow-up, PSG. Patient has sleep study scheduled 01/26/2020. DVT prophylaxis- Eliquis This patient was seen by ADALID Landeros under the supervision of Dr. Perry. <Mark Perry - Last Filed: 01/14/20 14:32> Subjective: Seen and examined. Patient had multiple bowel movements after he was given stool softener, magnesium citrate and Dulcolax suppository. Patient denies abdominal pain but has mild abdominal gaseous distention. Patient denies shortness of breath but is short of breath on observation. Objective: On physical exam Blood pressure is slightly on the lower side 95/51 has been negative for last 2 days. Pulse ox 94% on 3 L and uses BiPAP at night. General: Alert, Oriented x3, Cooperative HEENT: Atraumatic, PERRLA, EOMI, Normocephalic Oral: -Oral mucosa moist. Neck: Supple, No JVD, Negative Carotid Bruits Lungs: Diminished air entry and bilateral lung bases, Rhonchi, On rescue BiPAP as needed and at night Cardiovascular: Regular rate, Regular Rhythm, Normal S1, Normal S2, No murmurs. CABG scar is healing. Abdomen: Bowel Sounds Present but gaseous distention of abdomen. No tenderness. Extremities: Capillary Refill Less than 3 Seconds, Bilateral leg edema Skin: No rashes, No breakdown Musculoskeletal: No Tenderness to Palpation of Joints or Extremities, Arthritic Changes Neurological: Cranial nerves II-XII grossly intact, Deep Tendon Reflexes 2+/4 and Symmetrical, Neuro grossly intact Psych/Mental Status: Normal Affect, Appropriate - Physical Exam Vitals/I&O's: Vital Signs Temp Pulse Resp BP Pulse Ox 98.6 F 70 22 H 95/51 L 94 01/14/20 12:13 01/14/20 12:13 01/14/20 13:15 01/14/20 12:13 01/14/20 12:13 Oxygen Flow Rate (L/min) 3 Oxygen Delivery Method Nasal Cannula Weight: 317 lb 14.505 oz Body Mass Index (BMI) 45.1 Finger Stick Blood Glucose 128 Intake and Output for Last 24 Hours 01/12/20 01/13/20 01/14/20 23:59 23:59 23:59 Intake Total 1565 / 1565 1700 / 1700 680 / 680 Output Total 1225 / 1225 500 / 500 0 / 0 Balance 340 / 340 1200 / 1200 680 / 680 Microbiology Past 72 Hours 01/13/20 18:40 Sputum, Expectorated/Coughed Gram Stain - Final 01/09/20 07:45 Blood Culture (Wb) - Anticubital Left Blood Culture - Final No growth in 5 days. 01/09/20 07:45 Blood Culture (Wb) - Anticubital Right Blood Culture - Final No growth in 5 days. 01/10/20 06:45 Sputum, Tracheal Aspirate Gram Stain - Final 01/10/20 06:45 Sputum, Tracheal Aspirate Respiratory Culture - Final Culture exhibits no growth. Laboratory Results 01/13/20 17:21: POC Glucose 194 H 01/13/20 20:54: POC Glucose 196 H 01/14/20 06:32: WBC 15.2 H, RBC 2.91 L, Hgb 8.1 L, Hct 27.7 L, MCV 95.2 H, MCH 27.8, MCHC 29.2 L, RDW Std Deviation 50.3 H, RDW Coeff of [place] 14.5, Plt Count 546 H, MPV 9.8, Immature Gran % (Auto) 0.900, Neut % (Auto) 88.3 H, Lymph % (Auto) 4.7 L, [place] % (Auto) 5.7, Eos % (Auto) 0.1, Baso % (Auto) 0.3, Absolute Neuts (auto) 13.4 H, Absolute Lymphs (auto) 0.72 L, Nucleated RBC % 0, Differential Comment SCANNED 01/14/20 06:32: Sodium 134 L, Potassium 5.2 H, Chloride 95 L, Carbon Dioxide 33.0 H, Anion Gap 6, BUN 44 H, Creatinine 2.88 H, Estim Creat Clear Calc 27.81, Est GFR (MDRD) Af Amer 29 L, Est GFR (MDRD) Non-Af 24 L, BUN/Creatinine Ratio 15.3, Glucose 199 H, Calcium 8.2 L 01/14/20 08:16: POC Glucose 188 H 01/14/20 12:25: POC Glucose 200 H 01/14/20 13:50: WBC 16.4 H, RBC 2.73 L, Hgb 7.7 L, Hct 25.9 L, MCV 94.9 H, MCH 28.2, MCHC 29.7 L, RDW Std Deviation 50.1 H, RDW Coeff of [place] 14.6, Plt Count 529 H, MPV 9.6 01/14/20 13:50: Sodium 134 L, Potassium 4.2, Chloride 95 L, Carbon Dioxide 33.0 H, Anion Gap 6, BUN 54 H, Creatinine 2.69 H, Estim Creat Clear Calc 29.78, Est GFR (MDRD) Af Amer 31 L, Est GFR (MDRD) Non-Af 26 L, BUN/Creatinine Ratio 20.1 H , Glucose 169 H, Calcium 8.3 L Current Medications Acetaminophen (Tylenol) 650 mg PO Q6H PRN PRN PRN Reason: Pain Score 1-3 /Temp>100.7 Last Admin: 01/12/20 20:32 Dose: 650 mg Documented by: Albuterol Sulfate (Ventolin Aerosols) 2.5 mg INHALATION Q2H PRN PRN PRN Reason: SOB &/OR WHEEZING Last Admin: 01/14/20 07:37 Dose: 2.5 mg Documented by: Amiodarone HCl (Cordarone) 200 mg PO DAILY [facility] Last Admin: 01/14/20 11:06 Dose: 200 mg Documented by: Aspirin (Aspirin, Baby) 81 mg PO DAILY@0800 [facility] Last Admin: 01/14/20 11:06 Dose: 81 mg Documented by: Atorvastatin Calcium (Lipitor) 80 mg PO QHS [facility] Last Admin: 01/13/20 20:59 Dose: 80 mg Documented by: Calcium Carbonate (Tums) 500 mg PO Q6H PRN PRN PRN Reason: INDIGESTION Last Admin: 01/13/20 18:16 Dose: 500 mg Documented by: Fluticasone Propionate (Flonase Nasal [place]) 1 spray NASAL DAILY [facility] Last Admin: 01/14/20 11:08 Dose: 1 spray Documented by: Gabapentin (Neurontin) 200 mg PO DAILYCM [facility] Last Admin: 01/14/20 08:35 Dose: 200 mg Documented by: Guaifenesin (Mucinex) 600 mg PO BID [facility] Last Admin: 01/14/20 11:08 Dose: 600 mg Documented by: Sodium Chloride () 250 mls @ 15 mls/hr IV .[id number] PRN PRN Reason: Saline Flush Sodium Chloride () 250 mls @ 15 mls/hr IV .[id number] PRN PRN Reason: Additional IVPB Infusion Pantoprazole Sodium 40 mg/ (Sodium Chloride) 110 mls @ 330 mls/hr IV Q12 [facility] Insulin Glargine (Lantus (Bkc)) 30 units SC BID@0800,1700 [facility] Last Admin: 01/14/20 08:29 Dose: 30 u Documented by: Insulin Human Lispro (Humalog Kwikpen (Bkc)) 18 unit SC TIDCM [facility] Last Admin: 01/14/20 12:26 Dose: 18 u Documented by: Insulin Human Lispro (Humalog Kwikpen (Bkc)) 0 unit SC ACHS [facility]; Protocol Last Admin: 01/14/20 12:27 Dose: 4 u Documented by: Levofloxacin (Levaquin Tablet) 750 mg PO DAILY@0600 [facility] Stop: 01/17/20 06:01 Last Admin: 01/14/20 05:56 Dose: 750 mg Documented by: Lidocaine (Lidoderm Patch) 1 patch TOPICAL DAILY PRN PRN Reason: PAIN 1-06/16 Loratadine (Claritin) 5 mg PO DAILY [facility] Last Admin: 01/14/20 11:07 Dose: 5 mg Documented by: Losartan Potassium (Cozaar) 50 mg PO DAILY [facility] Last Admin: 01/13/20 09:17 Dose: 50 mg Documented by: Magnesium Oxide (Mag-Ox 400) 400 mg PO DAILY [facility] Last Admin: 01/14/20 11:06 Dose: 400 mg Documented by: Metoprolol Tartrate (Lopressor (Beta Chidi)) 100 mg PO BID [facility] Last Admin: 01/14/20 11:06 Dose: 100 mg Documented by: Morphine Sulfate () 2 - 4 mg IV Q4H PRN PRN PRN Reason: Pain Score 1-1010 Last Admin: 01/13/20 05:16 Dose: 4 mg Documented by: Oxycodone HCl (Oxyir) 5 mg PO Q4H PRN PRN PRN Reason: Pain Score 4-5/10 Last Admin: 01/12/20 14:30 Dose: 5 mg Documented by: Sodium Chloride () 10 - 40 ml IV UD PRN PRN Reason: SALINE FLUSH Last Admin: 01/13/20 05:17 Dose: 20 ml Documented by: Temazepam (Restoril) 15 mg PO QHS PRN PRN Reason: INSOMNIA Assessment/Plan This patient was seen in conjunction with FLANGING MACHINE OPERATORQian. I have independently interviewed and examined the patient and reviewed pertinent history, examination findings, laboratory and plan of management. I have reviewed the note and agree with the documented findings with the few additional points. This is a 59-year-old admitted with a complaint of acute onset shortness of breath and mild fever. 1. Acute hypoxic and hypercapnic respiratory failure status post intubation: Currently patient is on 35% FiO2, PEEP 5. Vent management as per spray i painter. ABG 7.26/78/67 on BiPAP 24/12 on 40% FiO2 on 01/09/2020. The patient was extubated on 01/10 and is on rescue BiPAP therapy as needed and at night. 2. Severe sepsis possible secondary to suspected healthcare associated pneumonia and/or Klebsiella pneumoniae UTI: Initially, patient started on IV vancomycin and Zosyn. Chest x-ray independently reviewed and shows vascular congestion and mild CHF with small bilateral pleural effusion, bibasilar atelectasis and/or infiltrate worse on the left side. UA shows WBC 5-10 cells, positive nitrite and LE 25. 3+ bacteria.Urinary antigens are negative. COVID test negative. Sputum tracheal aspirate shows no growth. Lactic acid normal. Urine culture shows Klebsiella pneumonia. Antibiotic changed to Levaquin 3. Acute kidney injury on CKD stage II with hyperkalemia: Potassium went up to 5.2 but repeat BMP in afternoon shows 4.2. Increasing BUN/creatinine most probably over diuresis. Lasix discontinued. Patient adamant about going home although advised and strongly recommended to stay because of acute kidney injury and anemia. Jackscrew Worker is consulted and discussed with Dr. Robles and informed Dr. Grant will see the patient. If patient wants to leave he has to sign AMA 4. Acute on chronic anemia, normocytic normochromic in nature with leukocytosis: Etiology of leukocytosis unclear but may be related to abdomen as patient had abdominal pain which is resolved now but is still abdominal distention. CT abdomen and pelvis with oral contrast ordered. If significant positive finding in CT abdomen will consult general surgery. Eliquis on hold for now. Closely monitor H&H about 2200 hrs. 5. Nonstemi with history of coronary artery disease status post CAB.4, trended down to 3.3. Seems secondary to demand ischemia from severe hypoxia. Patient recently had a cath few days ago showed patent graft and did not require PCI. * Troponin was up to 4.4. This is likely due to demand ischemia from severe hyp oxia. Patient recently had a cath a few days ago which showed patent grafts and did not require PCI. * Harvest Worker on board. On Lipitor and atorvastatin. On aspirin, metoprolol, losartan. Nitrate added. 4. Acute on chronic HFpEF * BNP was around 635. Continue IV Lasix 40 mg twice daily. * Monitor intake and output. Fluid restrictions 1500 cc daily. 5/6: Echo reported as normal LV size with EF 65%. Mild to moderate TR, PASP 42 mmHg 5. Hyperkalemia: K was 6.8. Patient had Kayexalate. Patient had repeat hyperkalemia, 5.2 but repeat shows normal 4.2. Exact etiology unclear but patient was getting hypokalemia. 6 Type 2 diabetes mellitus: on lantus. ISS. Accuchecks ACHS 7 recent A. fib during early postoperative CABG: Currently rate controlled. On amiodarone and metoprolol as well as Eliquis 8 normocytic normochromic anemia, acute on chronic: Stool for occult blood ordered. Hemoglobin dropped from 9.8-8.0. 9. Abdominal pain distention mostly secondary to his severe constipation. KUB reviewed. Shows nonspecific bowel gas and colonic feces. On bowel regimen of senna S, Dulcolax suppository and soapsuds enema. And on Dulcolax tablets. As mentioned above, CT abdomen is ordered. DVT prophylaxis: Bilateral SCDs CODE STATUS: Full code Outpatient sleep study has been scheduled. Total time of the visit including total time spent in counseling or coordination of care, (more than 50% of the total time, spent in obtaining medical information from nurses and other ancillary care providers), discussion with benefits consultant, doctor of nurse anesthesia practice and campaign management specialist, review of labs and imaging is 30 minutes Inpatient E&M: [id number] [facility] L[facility]
[2020-01-14 13:56] LABS: Hematocrit 25.9 % (40-54); Hemoglobin 7.7 g/dL (13.0-16.5); Mean Corp Hgb Conc 29.7 g/dL (32-36); Mean Corpuscular Hgb 28.2 pg (27.0-32.0); Mean Corpuscular Volume 94.9 fL (80-94); Mean Platelet Vol. 9.6 fl (6.2-12.0); Platelet Count 529 K/mm3 (150-450); RBC Distribution Width CV 14.6 % (11.6-14.6); RBC Distribution Width SD 50.1 fl (35.1-43.9); Red Blood Count 2.73 M/mm3 (4.6-6.2); White Blood Count 16.4 K/mm3 (4.4-11.0)
--- NOTE | 2020-01-14 14:04 | CT_ITS ---
STUDY: CT ABDOMEN AND PELVIS WITHOUT CONTRAST REASON FOR EXAM: Male, 59 years old. Abdominal pain. Distention. RADIATION DOSAGE (If Supplied By Facility): CTDIvol = ( 24.18 ) mGy, DLP = ( 1437.76 ) mGycm TECHNIQUE: Transaxial images were obtained from the dome of the diaphragm to the symphysis pubis without oral contrast, and without intravenous contrast. Sagittal and coronal images were reconstructed. Individualized dose optimization techniques were used for this CT. COMPARISON: None. FINDINGS: Exam is limited by improper positioning of the patient''s arms alongside the torso. Limited views through the lower chest show bilateral small to moderate pleural effusions and prominent compressive atelectasis of both lower lobes. Mild cardiomegaly. Previous CABG. Small pericardial effusion. Images through the abdomen and pelvis are limited by improper positioning of the patient''s arms and also degraded by patient''s size causing decreased resolution and artifact. Grossly negative liver. Incompletely distended gallbladder, there may be gallstones. Pancreas and spleen are unremarkable. Adrenal glands are unremarkable. No gross acute abnormality of the kidneys. Bilateral small nonobstructing renal stones. No gross renal masses. Evaluation of the GI tract is limited by absence of oral contrast. Cannot exclude stomach wall thickening. No dilated loops of bowel or evidence for obstruction. Cannot exclude segmental thickening of the wilder of the small or large bowel. Cannot exclude enteritis or colitis. Moderate diffuse fecal retention. Appendix within normal limits. There is diffuse atherosclerotic calcification of the abdominal aorta, without a demonstrated aneurysm. Normal inferior vena cava. Normal retroperitoneum. A small amount of fluid is seen adjacent to the inferior edge of the liver along the right paracolic gutter, the left paracolic gutter, and with small pools of fluid in the pelvis. There is a Pimentel catheter emptying the bladder. . Normal abdominal wall. There are diffuse degenerative changes of the visualized lumbar spine. CT/Abdomen/Pel W ORAL Cont Only IMPRESSION: Exam limited by patient''s size and improper positioning of the patient''s arms. Bilateral [id number] pleural effusions and compressive atelectasis of the lower lobes. Small amounts of free fluid in the abdomen and pelvis. No evidence of retroperitoneal hemorrhage. Bilateral nonobstructing renal stones. Electronically Signed: Gbariel Chang MD at 23:33 EDT , Service support ,
[2020-01-14 14:09] LABS: Anion Gap 6 (5-15); BUN 54 mg/dL (7-18); BUN/Creat Ratio 20.1 RATIO (10-20); Calcium,Total 8.3 mg/dL (8.5-10.1); Chloride 95 mmol/L (98-107); Creatinine, Serum 2.69 mg/dL (0.70-1.30); EST Glomerular Filtration Rate 26 mL/min (>60); Est Glom Filt Rate - Afr Amer 31 mL/min (>60); Estimated Creatinine Clearance 29.78 ml/min; Glucose 169 mg/dL (74-106); Potassium 4.2 mmol/L (3.5-5.1); Sodium Level 134 mmol/L (136-145)
[2020-01-14 15:11] LABS: Base Excess 9 mmol/L (-2 to +2); Bicarbonate 34.7 mmol/L (22-26); PO2 90 mmHG (75-100); SO2 96 % (95-99); Total Carbon Dioxide 37 mmol/L; pCO2 66.4 mmHg (35-45); pH 7.33 (7.35-7.45)
[2020-01-14 15:13] LABS: Allen Test POS; Blood Gas Specimen Type ART; O2 Delivery Device Nasal Can; SITE R RADIAL; Time Given 1448
[2020-01-14] MEDS: 0.9% Normal Saline 1,000 ML 999 ML IV (16:04)
--- NOTE | 2020-01-14 16:13 | PCM.HOSP.N ---
Hospitalist Note Patient is more short of breath in the afternoon, blood pressure very dropped from 94/50 to 80/61, respiratory rate 32/min, pulse ox 96% on 3 L of oxygen and afebrile. I came and examined the patient. Patient denies chest pain or tightness but obviously very short of breath and tachypneic. He does not want to get intubated and that was explained to the patient. He wants his blood pressure resuscitation, vasopressor if needed. Therefore DNR CCA no intubation. On exam Air entry bilateral equal. Heart rate is controlled. Recommendations Patient is moved to the ICU. IV fluid normal saline 1 L bolus is ordered along with troponin, EKG, H&H. Afternoon CBC shows H&H dropping from 9 g to 7.7, leukocytosis 16.4 thousand. ABG 7.33/60 6/90 on 3 to of oxygen. BMP shows BUN/creatinine 54/2.69. Lasix and Eliquis are already been discontinued in the morning. Aspirin discontinued. Stool for occult blood ordered. ICU owner professional engineer was texted and called and notified.
--- NOTE | 2020-01-14 16:24 | NURSING ---
1543 pt vss and breathing changed, BP-80/61 resp 32, pox 96% on 3L, pulse 88. pt breath sounds decreased in bases, working hard to breath, using accessory muscles. Qian Mckeon NP notified via text. Isaac Malin RN
--- NOTE | 2020-01-14 16:28 | NURSING ---
1600 Dr Rizvi up to see pt, ordered 1000cc NS bolus now, see MAR. pt will be transferred to ICU. Isaac Malin RN
--- NOTE | 2020-01-14 16:35 | RAD_ITS ---
STUDY: X-RAY CHEST REASON FOR EXAM: Male, 59 years old. INCREASED SOB TECHNIQUE: Single AP portable view of the chest. COMPARISON: Same day, 10:43 AM. FINDINGS: Definite change since earlier today. Low lung volumes. Prominent atelectasis or infiltrate of the mid and lower left lung. Probable small left pleural effusion. Moderate cardiomegaly. RAD/Chest 1 View (Portable) IMPRESSION: No change since earlier today. Electronically Signed: Gabriel Chang MD at 17:13 EDT , Service support ,
[2020-01-14 17:12] LABS: Hematocrit 24.3 % (40-54); Hemoglobin 7.2 g/dL (13.0-16.5)
--- NOTE | 2020-01-14 17:17 | PCM.CONS.R ---
Consultation - Renal 01/14/20 PCP/ Referring MD: Requesting physician: [] Primary care physician: Dr. Josué Rodriguez MD Reason for Consultation:: chris - History of Present Illness History of Present Illness: The patient is a 59 year old M pmh of coronary artery disease s/p CABG 3 weeks ago who presented with a chief complaint of's of breath after discharge just 2 days prior for A. fib RVR. He ruled out for COVID-19 mission. He was initially intubated now extubated. After diuresis yesterday evening his blood pressure started to drop in the 90s and her creatinine went up from 1.37 in the 2 range which prompted renal consult. Currently the patient is in the ICU for hypotension. He received a liter of fluid normal saline with improvement in his blood pressure from 80-98 but right now his blood pressure is dropping again in the low 90s high 80s. The patient is confused he can be aroused with strong painful or verbal stimuli. Except some abdominal discomfort but not pain denies nausea vomiting diarrhea shortness of breath or chest pain. He denies dysuria hematuria. His creatinine on admission was 1.2. He has no complaints but again the patient is currently confused. - Allergies Allergies: Allergies No Known Allergies Allergy (Verified 01/09/20 07:48) - Current Medications Current Medications: Current Medications Acetaminophen (Tylenol) 650 mg PO Q6H PRN PRN PRN Reason: Pain Score 1-3 /Temp>100.7 Last Admin: 01/12/20 20:32 Dose: 650 mg Documented by: Albuterol Sulfate (Ventolin Aerosols) 2.5 mg INHALATION Q2H PRN PRN PRN Reason: SOB &/OR WHEEZING Last Admin: 01/14/20 07:37 Dose: 2.5 mg Documented by: Amiodarone HCl (Cordarone) 200 mg PO DAILY [facility] Last Admin: 01/14/20 11:06 Dose: 200 mg Documented by: Atorvastatin Calcium (Lipitor) 80 mg PO QHS [facility] Last Admin: 01/13/20 20:59 Dose: 80 mg Documented by: Calcium Carbonate (Tums) 500 mg PO Q6H PRN PRN PRN Reason: INDIGESTION Last Admin: 01/13/20 18:16 Dose: 500 mg Documented by: Fluticasone Propionate (Flonase Nasal [place]) 1 spray NASAL DAILY [facility] Last Admin: 01/14/20 11:08 Dose: 1 spray Documented by: Gabapentin (Neurontin) 200 mg PO DAILYCM [facility] Last Admin: 01/14/20 08:35 Dose: 200 mg Documented by: Guaifenesin (Mucinex) 600 mg PO BID [facility] Last Admin: 01/14/20 11:08 Dose: 600 mg Documented by: Sodium Chloride () 250 mls @ 15 mls/hr IV .[id number] PRN PRN Reason: Saline Flush Sodium Chloride () 250 mls @ 15 mls/hr IV .[id number] PRN PRN Reason: Additional IVPB Infusion Pantoprazole Sodium 40 mg/ (Sodium Chloride) 110 mls @ 330 mls/hr IV Q12 [facility] Piperacillin Sod/Tazobactam (Sod 3.375 gm/ Sodium Chloride) 50 mls @ 12.5 mls/hr IV Q8 [facility] Piperacillin Sod/Tazobactam (Sod 3.375 gm/ Sodium Chloride) 50 mls @ 100 mls/hr IV X1 ONE Stop: 01/14/20 17:29 Insulin Glargine (Lantus (Bkc)) 30 units SC BID@0800,1700 [facility] Last Admin: 01/14/20 08:29 Dose: 30 u Documented by: Insulin Human Lispro (Humalog Kwikpen (Bkc)) 18 unit SC TIDCM [facility] Last Admin: 01/14/20 12:26 Dose: 18 u Documented by: Insulin Human Lispro (Humalog Kwikpen (Bkc)) 0 unit SC ACHS [facility]; Protocol Last Admin: 01/14/20 12:27 Dose: 4 u Documented by: Levofloxacin (Levaquin Tablet) 750 mg PO DAILY@0600 [facility] Stop: 01/17/20 06:01 Last Admin: 01/14/20 05:56 Dose: 750 mg Documented by: Lidocaine (Lidoderm Patch) 1 patch TOPICAL DAILY PRN PRN Reason: PAIN -06/16 Loratadine (Claritin) 5 mg PO DAILY [facility] Last Admin: 01/14/20 11:07 Dose: 5 mg Documented by: Losartan Potassium (Cozaar) 50 mg PO DAILY [facility] Last Admin: 01/13/20 09:17 Dose: 50 mg Documented by: Magnesium Oxide (Mag-Ox 400) 400 mg PO DAILY [facility] Last Admin: 01/14/20 11:06 Dose: 400 mg Documented by: Metoprolol Tartrate (Lopressor (Beta Chidi)) 100 mg PO BID [facility] Last Admin: 01/14/20 11:06 Dose: 100 mg Documented by: Morphine Sulfate () 2 - 4 mg IV Q4H PRN PRN PRN Reason: Pain Score 1-10/10 Last Admin: 01/13/20 05:16 Dose: 4 mg Documented by: Oxycodone HCl (Oxyir) 5 mg PO Q4H PRN PRN PRN Reason: Pain Score 4-5/10 Last Admin: 01/12/20 14:30 Dose: 5 mg Documented by: Sodium Chloride () 10 - 40 ml IV UD PRN PRN Reason: SALINE FLUSH Last Admin: 01/13/20 05:17 Dose: 20 ml Documented by: Temazepam (Restoril) 15 mg PO QHS PRN PRN Reason: INSOMNIA - Past Medical History Past Medical History (Chronic Problems): Chronic Problems (Last Updated 12/03/19 @ 12:27 by Serena Wilson) Type 2 diabetes mellitus (Chronic) Hypercholesterolemia (Chronic) Obesity (Chronic) History of left heart catheterization (Chronic 01/04/20) 11/18/19 per [facility] @ [facility]: Triple-vessel disease involving a totally occluded dominant right coronary artery, moderately severe disease noted in the left anterior descending artery, ramus intermedius, and circumflex artery. Recommend surgical consult for revascularization. 01/04/2020:Normal Left Ventricular systolic function; LVEF: by LV gram 65 %. Elevated Left Ventricular End Diastolic Pressure. Triple vessel CAD of the RCA, LAD and LCX/OM; Widely patent ARREDONDO To LAD Widely patent composite graft of SVG attached to free ISAK, with grafts to DIAG and OM; Widely patent SVG to PDA (small) with distal 60% anastamotic narrowing; no PCI recommended given recent CABG and anastomotic narrowing perfusing a small vessel. No overt lesion that required PCI; ST elevation was most likely due to pt's cardiac supply/demand mismatch due to rapid afib and outstripping L to R collaterals to previously known occluded RCA; not a true STEMI. 01/04/20 per [facility] @ [facility] Type 2 diabetes mellitus (Chronic) Atherosclerosis of coronary artery of [place] heart without angina pectoris (Chronic) Chronic diastolic (congestive) heart failure (Chronic) Nonrheumatic aortic (valve) stenosis (Chronic) mild per echo [id number] Essential (primary) hypertension (Chronic) - Past Surgical History Surgical History: coronary bypass surgery - Social History Smoking Status: Never smoker Alcohol: None Drugs: None - Family History Maternal Family History: Family History (Last Updated 12/03/19 @ 12:26 by Serena Wilson) Mother Hypertension Father Hypertension Heart disease History Items: Cancer - breast cancer, Hypertension Paternal Family History: Family History (Last Updated 12/03/19 @ 12:26 by Serena Wilson) Mother Hypertension Father Hypertension Heart disease History Items: Heart Disease, Hypertension Review of Systems Eyes: Reports: - - As per HPI otherwise essentially negative - Physical Exam Vitals/I&O's: Vital Signs Temp Pulse Resp BP Pulse Ox 98.2 F 96 28 H 80/61 L 95 01/14/20 15:35 01/14/20 16:20 01/14/20 16:20 01/14/20 15:35 01/14/20 16:20 Oxygen Flow Rate (L/min) 3 Oxygen Delivery Method Nasal Cannula Weight: 144.2 kg Body Mass Index (BMI) 45.1 Finger Stick Blood Glucose 128 Intake and Output for Last 24 Hours 01/12/20 01/13/20 01/14/20 23:59 23:59 23:59 Intake Total 1565 / 1565 1700 / 1700 680 / 680 Output Total 1225 / 1225 500 / 500 0 / 0 Balance 340 / 340 1200 / 1200 680 / 680 General: Alert HEENT: Atraumatic, PERRLA, EOMI, Normocephalic Neck: Supple, No JVD, Negative Carotid Bruits Lungs: Clear to auscultation, Normal air movement Cardiovascular: No murmurs, Irregular Rate Abdomen: Bowel Sounds Present, Soft, Non Tender, Obese Extremities: Capillary Refill Less than 3 Seconds, Edema Skin: No rashes Musculoskeletal: No Tenderness to Palpation of Joints or Extremities Neurological: Cranial nerves II-XII grossly intact, - - The patient is snoring and he can be aroused with strong verbal stimuli but falls asleep almost immediately Psych/Mental Status: Normal Affect, Appropriate Microbiology Past 72 Hours 01/13/20 18:40 Sputum, Expectorated/Coughed Gram Stain - Final 01/09/20 07:45 Blood Culture (Wb) - Anticubital Left Blood Culture - Final No growth in 5 days. 01/09/20 07:45 Blood Culture (Wb) - Anticubital Right Blood Culture - Final No growth in 5 days. 01/10/20 06:45 Sputum, Tracheal Aspirate Gram Stain - Final 01/10/20 06:45 Sputum, Tracheal Aspirate Respiratory Culture - Final Culture exhibits no growth. Laboratory Results 01/13/20 17:21: POC Glucose 194 H 01/13/20 20:54: POC Glucose 196 H 01/14/20 06:32: WBC 15.2 H, RBC 2.91 L, Hgb 8.1 L, Hct 27.7 L, MCV 95.2 H, MCH 27.8, MCHC 29.2 L, RDW Std Deviation 50.3 H, RDW Coeff of [place] 14.5, Plt Count 546 H, MPV 9.8, Immature Gran % (Auto) 0.900, Neut % (Auto) 88.3 H, Lymph % (Auto) 4.7 L, [facility] % (Auto) 5.7, Eos % (Auto) 0.1, Baso % (Auto) 0.3, Absolute Neuts (auto) 13.4 H, Absolute Lymphs (auto) 0.72 L, Nucleated RBC % 0, Differential Comment SCANNED 01/14/20 06:32: Sodium 134 L, Potassium 5.2 H, Chloride 95 L, Carbon Dioxide 33.0 H, Anion Gap 6, BUN 44 H, Creatinine 2.88 H, Estim Creat Clear Calc 27.81, Est GFR (MDRD) Af Amer 29 L, Est GFR (MDRD) Non-Af 24 L, BUN/Creatinine Ratio 15.3, Glucose 199 H, Calcium 8.2 L 01/14/20 08:16: POC Glucose 188 H 01/14/20 12:25: POC Glucose 200 H 01/14/20 13:50: WBC 16.4 H, RBC 2.73 L, Hgb 7.7 L, Hct 25.9 L, MCV 94.9 H, MCH 28.2, MCHC 29.7 L, RDW Std Deviation 50.1 H, RDW Coeff of [place] 14.6, Plt Count 529 H, MPV 9.6 01/14/20 13:50: Sodium 134 L, Potassium 4.2, Chloride 95 L, Carbon Dioxide 33.0 H, Anion Gap 6, BUN 54 H, Creatinine 2.69 H, Estim Creat Clear Calc 29.78, Est GFR (MDRD) Af Amer 31 L, Est GFR (MDRD) Non-Af 26 L, BUN/Creatinine Ratio 20.1 H, Glucose 169 H, Calcium 8.3 L 01/14/20 14:48: Specimen Type ART, Sample Site R RADIAL, pH 7.33 L, Bicarbonate Actual 34.7 H, POC Total CO2 37, Base Excess 9 H, O2 Saturation 96, ABG pCO2 66.4 H, ABG pO2 90, Gustavo Test POS, O2 Delivery Device Nasal Can, Liter Flow 3.0, Blood Gas Notified Whom OTHER, Blood Gas Notified Time 1448 01/14/20 15:46: Blood Type O POSITIVE, Antibody Screen NEGATIVE, Crossmatch See Detail 01/14/20 17:00: Hgb 7.2 L, Hct 24.3 L 01/14/20 17:00: Troponin I Pending 01/14/20 17:00: PT Pending, INR Pending, APTT Pending Current Medications Acetaminophen (Tylenol) 650 mg PO Q6H PRN PRN PRN Reason: Pain Score 1-3 /Temp>100.7 Last Admin: 01/12/20 20:32 Dose: 650 mg Documented by: Albuterol Sulfate (Ventolin Aerosols) 2.5 mg INHALATION Q2H PRN PRN PRN Reason: SOB &/OR WHEEZING Last Admin: 01/14/20 07:37 Dose: 2.5 mg Documented by: Amiodarone HCl (Cordarone) 200 mg PO DAILY [facility] Last Admin: 01/14/20 11:06 Dose: 200 mg Documented by: Atorvastatin Calcium (Lipitor) 80 mg PO QHS [facility] Last Admin: 01/13/20 20:59 Dose: 80 mg Documented by: Calcium Carbonate (Tums) 500 mg PO Q6H PRN PRN PRN Reason: INDIGESTION Last Admin: 01/13/20 18:16 Dose: 500 mg Documented by: Fluticasone Propionate (Flonase Nasal [place]) 1 spray NASAL DAILY [facility] Last Admin: 01/14/20 11:08 Dose: 1 spray Documented by: [facility] Last Admin: 01/14/20 08:35 Dose: 200 mg Documented by: Guaifenesin (Mucinex) 600 mg PO BID [facility] Last Admin: 01/14/20 11:08 Dose: 600 mg Documented by: Sodium Chloride () 250 mls @ 15 mls/hr IV .[id number] PRN PRN Reason: Saline Flush Sodium Chloride () 250 mls @ 15 mls/hr IV .[id number] PRN PRN Reason: Additional IVPB Infusion Pantoprazole Sodium 40 mg/ (Sodium Chloride) 110 mls @ 330 mls/hr IV Q12 [facility] Piperacillin Sod/Tazobactam (Sod 3.375 gm/ Sodium Chloride) 50 mls @ 12.5 mls/hr IV Q8 [facility] Piperacillin Sod/Tazobactam (Sod 3.375 gm/ Sodium Chloride) 50 mls @ 100 mls/hr IV X1 ONE Stop: 01/14/20 17:29 Insulin Glargine (Lantus (Bkc)) 30 units SC BID@0800,1700 [facility] Last Admin: 01/14/20 08:29 Dose: 30 u Documented by: Insulin Human Lispro (Humalog Kwikpen (Bkc)) 18 unit SC TIDCM [facility] Last Admin: 01/14/20 12:26 Dose: 18 u Documented by: Insulin Human Lispro (Humalog Kwikpen (Bkc)) 0 unit SC ACHS [facility]; Protocol Last Admin: 01/14/20 12:27 Dose: 4 u Documented by: Levofloxacin (Levaquin Tablet) 750 mg PO DAILY@0600 [facility] Stop: 01/17/20 06:01 Last Admin: 01/14/20 05:56 Dose: 750 mg Documented by: Lidocaine (Lidoderm Patch) 1 patch TOPICAL DAILY PRN PRN Reason: PAIN 1-06/16 Loratadine (Claritin) 5 mg PO DAILY [facility] Last Admin: 01/14/20 11:07 Dose: 5 mg Documented by: Losartan Potassium (Cozaar) 50 mg PO DAILY [facility] Last Admin: 01/13/20 09:17 Dose: 50 mg Documented by: Magnesium Oxide (Mag-Ox 400) 400 mg PO DAILY [facility] Last Admin: 01/14/20 11:06 Dose: 400 mg Documented by: Metoprolol Tartrate (Lopressor (Beta Chidi)) 100 mg PO BID [facility] Last Admin: 01/14/20 11:06 Dose: 100 mg Documented by: Morphine Sulfate () 2 - 4 mg IV Q4H PRN PRN PRN Reason: Pain Score 1-1010 Last Admin: 01/13/20 05:16 Dose: 4 mg Documented by: Oxycodone HCl (Oxyir) 5 mg PO Q4H PRN PRN PRN Reason: Pain Score 4-5/10 Last Admin: 01/12/20 14:30 Dose: 5 mg Documented by: Sodium Chloride () 10 - 40 ml IV UD PRN PRN Reason: SALINE FLUSH Last Admin: 01/13/20 05:17 Dose: 20 ml Documented by: Temazepam (Restoril) 15 mg PO QHS PRN PRN Reason: INSOMNIA Assessment/Plan All Active Problems (Last Updated 12/03/19 @ 12:27 by Serena Wilson) Atrial flutter with rapid ventricular response (Acute) Respiratory failure with hypoxia and hypercapnia (Acute) Atrial fibrillation with rapid ventricular response (Acute) S/P CABG x 4 (Acute) Acute exacerbation of CHF (congestive heart failure) (Resolved) CHRIS?likely ATN with hypotension and overdiuresis Lower extremity edema Hypotension Leukocytosis Respiratory failure Anemia Coronary artery disease A. fib Check renal ultrasound UA FENA Hold ARB all blood pressure meds hold diuretics keep MAP>65 might need pressors now on ivf avoid nephrotoxins Further work-up and management as indicated by clinical course check PVR d/w with Dr. Perry and JARROD Laughlin Thank you for consult. We will follow-up.
[2020-01-14 17:18] LABS: International Normalized Ratio 2.3; Prothrombin Time (Protime)PT. 24.5 SECONDS (11.7-14.9)
[2020-01-14 17:20] LABS: Partial Thromboplast Time 55.6 Seconds (24.1-36.2)
--- NOTE | 2020-01-14 18:00 | NURSING ---
Pt's in to visit as pt was DNRCC-A w/no intubation and very critical upon transfer to ICU. After visiting w/, pt stated he would be willing to be a full code for his families sake. He did not like being intubated and being awake. Assured pt that sedation meds would be used but also explained ICU liberation and how we work to get patients off the ventilator sooner rather than later. Pt verbalizes understanding as well as . Dr Perry was paged and came to talk w/ & patient. Both & patient are agreeable to full code status. 1st unit of blood was transfused wide open w/MD in room w/pt. 2nd unit to be hung in normal fashion as bp has stabilized per Dr. Perry. Pt remains drowsy but is arousable to name calling and is alert and oriented.
[2020-01-14 20:46] LABS: Bacteria 0 SEEN /hpf (None Seen); Mucous, Urine 0 SEEN /hpf (<or=2+); White Blood Cells 0 SEEN /hpf (0-5)
--- NOTE | 2020-01-14 20:52 | NURSING ---
Zosyn bolus dose due at 1700 which was not given, discussed with pharmacy and will hold bolus dose and give zosyn 2200 dose as scheduled.
[2020-01-14 21:08] LABS: Urine Sodium 11 mmol/L (Not Establ.)
[2020-01-14 21:16] LABS: Color, Urine Yellow (Yellow); Glucose, Dipstick Normal (Normal); Ketone-Dipstick 5 mg/dl (Negative); Leukocyte Esterase-Dipstick Negative /ul (Negative); Nitrite-Dipstick Negative (Negative); Occult Blood-Urine 10 /ul (Negative); Protein-Dipstick 30 mg/dl (Negative); Specific Gravity, Urine 1.025 (1.002-1.030); Urine Bilirubin Dipstick Negative (Negative); Urine Clarity Sl. Cloudy (Clear); Urine Urobilinogen Normal (Normal)
[2020-01-14 21:19] LABS: Red Blood Cells-Urine 0-5 SEEN /hpf (0-5); Squamous Epithelial Cells - UA 0-5 SEEN /hpf (0-5)
[2020-01-14 21:20] LABS: Fine Granular Cast- Urine 0-5 SEEN /lpf (0-5); Hyaline Cast 5-10 SEEN /lpf (0-5)
--- NOTE | 2020-01-14 23:15 | NURSING ---
This RN and respiratory therapist transferred patient to CT at 2240 and returned to floor at 2312.
[2020-01-15] VITALS (35 sets, daily range): BP systolic 92–151; BP diastolic 41–98; PULSE 74–122; RESP 12–37; TEMP 36.9–37.7; O2SAT 92–100
[2020-01-15 01:06] LABS: Bedside Glucose 95 mg/dL (70-110)
[2020-01-15 01:36] LABS: Bedside Glucose 72 mg/dL (70-110)
[2020-01-15 03:26] LABS: Bedside Glucose 75 mg/dL (70-110)
[2020-01-15 05:05] LABS: Hematocrit 30.5 % (40-54); Hemoglobin 9.3 g/dL (13.0-16.5); Mean Corp Hgb Conc 30.5 g/dL (32-36); Mean Corpuscular Hgb 28.4 pg (27.0-32.0); Mean Corpuscular Volume 93.3 fL (80-94); Mean Platelet Vol. 9.7 fl (6.2-12.0); Platelet Count 467 K/mm3 (150-450); RBC Distribution Width CV 14.8 % (11.6-14.6); RBC Distribution Width SD 50.7 fl (35.1-43.9); Red Blood Count 3.27 M/mm3 (4.6-6.2); White Blood Count 14.8 K/mm3 (4.4-11.0)
[2020-01-15] MEDS: 0.9% Saline Lock 10 ML Syringe IV (05:16)
[2020-01-15 05:32] LABS: Anion Gap 6 (5-15); BUN 57 mg/dL (7-18); BUN/Creat Ratio 27.3 RATIO (10-20); Chloride 97 mmol/L (98-107); Creatinine, Serum 2.09 mg/dL (0.70-1.30); EST Glomerular Filtration Rate 34 mL/min (>60); Est Glom Filt Rate - Afr Amer 42 mL/min (>60); Estimated Creatinine Clearance 38.32 ml/min; Glucose 82 mg/dL (74-106); Sodium Level 136 mmol/L (136-145)
--- NOTE | 2020-01-15 06:07 | PN_ITS ---
Subjective: The patient was seen and examined at the bedside this morning. Events from the last 24 hours have been reviewed. The patient is currently afebrile, hemodynamically stable and maintaining appropriate oxygen saturations on 4 L/min via nasal cannula. The patient was transferred back to the medical intensive care unit yesterday afternoon with increased work of breathing and hypotension. The patient was anemic with a hemoglobin of 7.2 g/dL. He was subsequently transfused 3 units of packed red blood cells overnight. Hemoglobin this morning was noted to be 9.3 g/dL. The patient tolerated BiPAP overnight with a pressure support of 18/8. He has since been weaned back to nasal cannula supplemental oxygen as of this morning. Creatinine has improved. Lasix, Eliquis and losartan are currently on hold. CT abdomen obtained yesterday revealed small to moderate size pleural effusions with associated compressive atelectasis. A small amount of free fluid in the abdomen and pelvis was noted without evidence of retroperitoneal hemorrhage. Bilateral nonobstructing renal stones were also noted. General surgery has been consulted to evaluate the patient as well. The patient denies any shortness of breath or cough this morning. Objective: The patient's most recent lab work, culture data and imaging studies have all been personally reviewed. Surface echocardiogram revealed normal LV size and function with an ejection fraction of 65%. Pulmonary artery systolic pressure was estimated to be 42 mmHg. Strep and urine Legionella antigens were negative. MRSA screen was negative. Urine culture was positive for Klebsiella pneumonia. General: Alert, Cooperative, - - Morbidly obese. HEENT: Atraumatic, PERRLA, Normocephalic Oral: Moist Mucosa Neck: Supple, No Nodes, Trachea Midline Lungs: No rhonchi, No wheeze, No rales, Diminished Cardiovascular: Normal S1, Normal S2, Irregular Rate, - - + Sternotomy scar Abdomen: Soft, Hypoactive Bowel Sounds, Distended, Obese Extremities: No clubbing, No cyanosis, Edema Skin: - - No significant change from previous Musculoskeletal: No Muscle Wasting Lymphatic: No Cervical, Supraclavicular, or Inguinal Adenopathy Neurological: Cranial nerves II-XII grossly intact, Neuro grossly intact Psych/Mental Status: Normal Affect, Appropriate Vital Signs Temp Pulse Resp BP Pulse Ox 98.7 F 91 25 H 109/51 L 98 01/15/20 04:00 01/15/20 06:00 01/15/20 06:00 01/15/20 06:00 01/15/20 06:00 Oxygen Flow Rate (L/min) 4 Oxygen Delivery Method Nasal Cannula Weight: 328 lb 7.82 oz Body Mass Index (BMI) 45.1 Finger Stick Blood Glucose 128 Intake and Output for Last 24 Hours 01/13/20 01/14/20 01/15/20 23:59 23:59 23:59 Intake Total 1700 / 1700 2700 / 2700 450 / 450 Output Total 500 / 500 250 / 250 300 / 300 Balance 1200 / 1200 2450 / 2450 150 / 150 Labs (Last 48 Hours) 01/13/20 01/13/20 01/13/20 06:05 06:05 07:02 WBC 7.0 RBC 3.19 L Hgb 9.0 L Hct 30.1 L MCV 94.4 H MCH 28.2 MCHC 29.9 L RDW Std Deviation 48.6 H RDW Coeff of [place] 14.4 Plt Count 654 H MPV 9.4 Immature Gran % (Auto) 0.300 Neut % (Auto) 86.6 H Lymph % (Auto) 6.6 L [place] % (Auto) 5.5 Eos % (Auto) 0.7 Baso % (Auto) 0.3 Absolute Neuts (auto) 6.0 Absolute Lymphs (auto) 0.46 L Nucleated RBC % 0 Differential Comment SCANNED Reactive Lymphocytes RARE PT INR APTT Specimen Type Sample Site pH Bicarbonate Actual POC Total CO2 Base Excess O2 Saturation ABG pCO2 ABG pO2 Gustavo Test O2 Delivery Device Liter Flow Blood Gas Notified Whom Blood Gas Notified Time Sodium 138 Potassium 3.8 Chloride 100 Carbon Dioxide 33.0 H Anion Gap 5 BUN 35 H Creatinine 1.37 H Estim Creat Clear Calc 58.47 Est GFR (MDRD) Af Amer 68 Est GFR (MDRD) Non-Af 56 L BUN/Creatinine Ratio 25.5 H Glucose 109 H Calcium 8.3 L Magnesium 2.0 Troponin I Urine Color Urine Clarity Urine pH Ur Specific [place] Urine Protein Urine Glucose (UA) Urine Ketones Urine Occult Blood Urine Nitrite Urine Bilirubin Urine Urobilinogen Ur Leukocyte Esterase Urine RBC Urine WBC Ur Squamous Epith Cells Urine Bacteria Hyaline Casts Fine Granular Casts Urine Mucus Ur Random Sodium Urine Creatinine POC Glucose 92 Blood Type Antibody Screen Crossmatch 01/13/20 01/13/20 01/13/20 11:43 13:35 17:21 WBC RBC Hgb Hct MCV MCH MCHC RDW Std Deviation RDW Coeff of [place] Plt Count MPV Immature Gran % (Auto) Neut % (Auto) Lymph % (Auto) [place] % (Auto) Eos % (Auto) Baso % (Auto) Absolute Neuts (auto) Absolute Lymphs (auto) Nucleated RBC % Differential Comment Reactive Lymphocytes PT INR APTT Specimen Type Sample Site pH Bicarbonate Actual POC Total CO2 Base Excess O2 Saturation ABG pCO2 ABG pO2 Gustavo Test O2 Delivery Device Liter Flow Blood Gas Notified Whom Blood Gas Notified Time Sodium Potassium Chloride Carbon Dioxide Anion Gap BUN Creatinine Estim Creat Clear Calc Est GFR (MDRD) Af Amer Est GFR (MDRD) Non-Af BUN/Creatinine Ratio Glucose Calcium Magnesium Troponin I Urine Color Urine Clarity Urine pH Ur Specific [place] Urine Protein Urine Glucose (UA) Urine Ketones Urine Occult Blood Urine Nitrite Urine Bilirubin Urine Urobilinogen Ur Leukocyte Esterase Urine RBC Urine WBC Ur Squamous Epith Cells Urine Bacteria Hyaline Casts Fine Granular Casts Urine Mucus Ur Random Sodium Urine Creatinine POC Glucose 104 134 H 194 H Blood Type Antibody Screen Crossmatch 01/13/20 01/14/20 01/14/20 20:54 06:32 06:32 WBC 15.2 H RBC 2.91 L Hgb 8.1 L Hct 27.7 L MCV 95.2 H MCH 27.8 MCHC 29.2 L RDW Std Deviation 50.3 H RDW Coeff of [place] 14.5 Plt Count 546 H MPV 9.8 Immature Gran % (Auto) 0.900 Neut % (Auto) 88.3 H Lymph % (Auto) 4.7 L [place] % (Auto) 5.7 Eos % (Auto) 0.1 Baso % (Auto) 0.3 Absolute Neuts (auto) 13.4 H Absolute Lymphs (auto) 0.72 L Nucleated RBC % 0 Differential Comment SCANNED Reactive Lymphocytes PT INR APTT Specimen Type Sample Site pH Bicarbonate Actual POC Total CO2 Base Excess O2 Saturation ABG pCO2 ABG pO2 Gustavo Test O2 Delivery Device Liter Flow Blood Gas Notified Whom Blood Gas Notified Time Sodium 134 L Potassium 5.2 H Chloride 95 L Carbon Dioxide 33.0 H Anion Gap 6 BUN 44 H Creatinine 2.88 H Estim Creat Clear Calc 27.81 Est GFR (MDRD) Af Amer 29 L Est GFR (MDRD) Non-Af 24 L BUN/Creatinine Ratio 15.3 Glucose 199 H Calcium 8.2 L Magnesium Troponin I Urine Color Urine Clarity Urine pH Ur Specific [place] Urine Protein Urine Glucose (UA) Urine Ketones Urine Occult Blood Urine Nitrite Urine Bilirubin Urine Urobilinogen Ur Leukocyte Esterase Urine RBC Urine WBC Ur Squamous Epith Cells Urine Bacteria Hyaline Casts Fine Granular Casts Urine Mucus Ur Random Sodium Urine Creatinine POC Glucose 196 H Blood Type Antibody Screen Crossmatch 01/14/20 01/14/20 01/14/20 08:16 12:25 13:50 WBC 16.4 H RBC 2.73 L Hgb 7.7 L Hct 25.9 L MCV 94.9 H MCH 28.2 MCHC 29.7 L RDW Std Deviation 50.1 H RDW Coeff of [place] 14.6 Plt Count 529 H MPV 9.6 Immature Gran % (Auto) Neut % (Auto) Lymph % (Auto) [place] % (Auto) Eos % (Auto) Baso % (Auto) Absolute Neuts (auto) Absolute Lymphs (auto) Nucleated RBC % Differential Comment Reactive Lymphocytes PT INR APTT Specimen Type Sample Site pH Bicarbonate Actual POC Total CO2 Base Excess O2 Saturation ABG pCO2 ABG pO2 Gustavo Test O2 Delivery Device Liter Flow Blood Gas Notified Whom Blood Gas Notified Time Sodium Potassium Chloride Carbon Dioxide Anion Gap BUN Creatinine Estim Creat Clear Calc Est GFR (MDRD) Af Amer Est GFR (MDRD) Non-Af BUN/Creatinine Ratio Glucose Calcium Magnesium Troponin I Urine Color Urine Clarity Urine pH Ur Specific [place] Urine Protein Urine Glucose (UA) Urine Ketones Urine Occult Blood Urine Nitrite Urine Bilirubin Urine Urobilinogen Ur Leukocyte Esterase Urine RBC Urine WBC Ur Squamous Epith Cells Urine Bacteria Hyaline Casts Fine Granular Casts Urine Mucus Ur Random Sodium Urine Creatinine POC Glucose 188 H 200 H Blood Type Antibody Screen Crossmatch 01/14/20 01/14/20 01/14/20 13:50 14:48 15:46 WBC RBC Hgb Hct MCV MCH MCHC RDW Std Deviation RDW Coeff of [place] Plt Count MPV Immature Gran % (Auto) Neut % (Auto) Lymph % (Auto) [place] % (Auto) Eos % (Auto) Baso % (Auto) Absolute Neuts (auto) Absolute Lymphs (auto) Nucleated RBC % Differential Comment Reactive Lymphocytes PT INR APTT Specimen Type ART Sample Site R RADIAL pH 7.33 L Bicarbonate Actual 34.7 H POC Total CO2 37 Base Excess 9 H O2 Saturation 96 ABG pCO2 66.4 H ABG pO2 90 Gustavo Test POS O2 Delivery Device Nasal Can Liter Flow 3.0 Blood Gas Notified Whom OTHER Blood Gas Notified Time 1448 Sodium 134 L Potassium 4.2 Chloride 95 L Carbon Dioxide 33.0 H Anion Gap 6 BUN 54 H Creatinine 2.69 H Estim Creat Clear Calc 29.78 Est GFR (MDRD) Af Amer 31 L Est GFR (MDRD) Non-Af 26 L BUN/Creatinine Ratio 20.1 H Glucose 169 H Calcium 8.3 L Magnesium Troponin I Urine Color Urine Clarity Urine pH Ur Specific [place] Urine Protein Urine Glucose (UA) Urine Ketones Urine Occult Blood Urine Nitrite Urine Bilirubin Urine Urobilinogen Ur Leukocyte Esterase Urine RBC Urine WBC Ur Squamous Epith Cells Urine Bacteria Hyaline Casts Fine Granular Casts Urine Mucus Ur Random Sodium Urine Creatinine POC Glucose Blood Type O POSITIVE Antibody Screen NEGATIVE Crossmatch See Detail 01/14/20 01/14/20 01/14/20 15:46 15:46 17:00 WBC RBC Hgb 7.2 L Hct 24.3 L MCV MCH MCHC RDW Std Deviation RDW Coeff of [place] Plt Count MPV Immature Gran % (Auto) Neut % (Auto) Lymph % (Auto) [place] % (Auto) Eos % (Auto) Baso % (Auto) Absolute Neuts (auto) Absolute Lymphs (auto) Nucleated RBC % Differential Comment Reactive Lymphocytes PT INR APTT Specimen Type Sample Site pH Bicarbonate Actual POC Total CO2 Base Excess O2 Saturation ABG pCO2 ABG pO2 Gustavo Test O2 Delivery Device Liter Flow Blood Gas Notified Whom Blood Gas Notified Time Sodium Potassium Chloride Carbon Dioxide Anion Gap BUN Creatinine Estim Creat Clear Calc Est GFR (MDRD) Af Amer Est GFR (MDRD) Non-Af BUN/Creatinine Ratio Glucose Calcium Magnesium Troponin I Urine Color Urine Clarity Urine pH Ur Specific [place] Urine Protein Urine Glucose (UA) Urine Ketones Urine Occult Blood Urine Nitrite Urine Bilirubin Urine Urobilinogen Ur Leukocyte Esterase Urine RBC Urine WBC Ur Squamous Epith Cells Urine Bacteria Hyaline Casts Fine Granular Casts Urine Mucus Ur Random Sodium Urine Creatinine POC Glucose Blood Type Antibody Screen Crossmatch See Detail See Detail 01/14/20 01/14/20 01/14/20 17:00 17:00 20:30 WBC RBC Hgb Hct MCV MCH MCHC RDW Std Deviation RDW Coeff of [place] Plt Count MPV Immature Gran % (Auto) Neut % (Auto) Lymph % (Auto) [place] % (Auto) Eos % (Auto) Baso % (Auto) Absolute Neuts (auto) Absolute Lymphs (auto) Nucleated RBC % Differential Comment Reactive Lymphocytes PT 24.5 H INR 2.3 APTT 55.6 H Specimen Type Sample Site pH Bicarbonate Actual POC Total CO2 Base Excess O2 Saturation ABG pCO2 ABG pO2 Gustavo Test O2 Delivery Device Liter Flow Blood Gas Notified Whom Blood Gas Notified Time Sodium Potassium Chloride Carbon Dioxide Anion Gap BUN Creatinine Estim Creat Clear Calc Est GFR (MDRD) Af Amer Est GFR (MDRD) Non-Af BUN/Creatinine Ratio Glucose Calcium Magnesium Troponin I 0.176 H Urine Color Yellow Urine Clarity Sl. Cloudy Urine pH 5.0 Ur Specific [place] 1.025 Urine Protein 30 H Urine Glucose (UA) Normal Urine Ketones 5 H Urine Occult Blood 10 H Urine Nitrite Negative Urine Bilirubin Negative Urine Urobilinogen Normal Ur Leukocyte Esterase Negative Urine RBC 0-5 SEEN Urine WBC 0 SEEN Ur Squamous Epith Cells 0-5 SEEN Urine Bacteria 0 SEEN Hyaline Casts 5-10 SEEN Fine Granular Casts 0-5 SEEN Urine Mucus 0 SEEN Ur Random Sodium Urine Creatinine POC Glucose Blood Type Antibody Screen Crossmatch 01/14/20 01/14/20 01/14/20 20:30 20:30 21:46 WBC RBC Hgb Hct MCV MCH MCHC RDW Std Deviation RDW Coeff of [place] Plt Count MPV Immature Gran % (Auto) Neut % (Auto) Lymph % (Auto) [place] % (Auto) Eos % (Auto) Baso % (Auto) Absolute Neuts (auto) Absolute Lymphs (auto) Nucleated RBC % Differential Comment Reactive Lymphocytes PT INR APTT Specimen Type Sample Site pH Bicarbonate Actual POC Total CO2 Base Excess O2 Saturation ABG pCO2 ABG pO2 Gustavo Test O2 Delivery Device Liter Flow Blood Gas Notified Whom Blood Gas Notified Time Sodium Potassium Chloride Carbon Dioxide Anion Gap BUN Creatinine Estim Creat Clear Calc Est GFR (MDRD) Af Amer Est GFR (MDRD) Non-Af BUN/Creatinine Ratio Glucose Calcium Magnesium Troponin I Urine Color Urine Clarity Urine pH Ur Specific [place] Urine Protein Urine Glucose (UA) Urine Ketones Urine Occult Blood Urine Nitrite Urine Bilirubin Urine Urobilinogen Ur Leukocyte Esterase Urine RBC Urine WBC Ur Squamous Epith Cells Urine Bacteria Hyaline Casts Fine Granular Casts Urine Mucus Ur Random Sodium 11 Urine Creatinine 295.00 POC Glucose 95 Blood Type Antibody Screen Crossmatch 01/15/20 01/15/20 01/15/20 01:29 03:17 04:40 WBC 14.8 H RBC 3.27 L Hgb 9.3 L Hct 30.5 L MCV 93.3 MCH 28.4 MCHC 30.5 L RDW Std Deviation 50.7 H RDW Coeff of [place] 14.8 H Plt Count 467 H MPV 9.7 Immature Gran % (Auto) Neut % (Auto) Lymph % (Auto) [place] % (Auto) Eos % (Auto) Baso % (Auto) Absolute Neuts (auto) Absolute Lymphs (auto) Nucleated RBC % Differential Comment Reactive Lymphocytes PT INR APTT Specimen Type Sample Site pH Bicarbonate Actual POC Total CO2 Base Excess O2 Saturation ABG pCO2 ABG pO2 Gustavo Test O2 Delivery Device Liter Flow Blood Gas Notified Whom Blood Gas Notified Time Sodium Potassium Chloride Carbon Dioxide Anion Gap BUN Creatinine Estim Creat Clear Calc Est GFR (MDRD) Af Amer Est GFR (MDRD) Non-Af BUN/Creatinine Ratio Glucose Calcium Magnesium Troponin I Urine Color Urine Clarity Urine pH Ur Specific [place] Urine Protein Urine Glucose (UA) Urine Ketones Urine Occult Blood Urine Nitrite Urine Bilirubin Urine Urobilinogen Ur Leukocyte Esterase Urine RBC Urine WBC Ur Squamous Epith Cells Urine Bacteria Hyaline Casts Fine Granular Casts Urine Mucus Ur Random Sodium Urine Creatinine POC Glucose 72 75 Blood Type Antibody Screen Crossmatch 01/15/20 04:40 WBC RBC Hgb Hct MCV MCH MCHC RDW Std Deviation RDW Coeff of [place] Plt Count MPV Immature Gran % (Auto) Neut % (Auto) Lymph % (Auto) [place] % (Auto) Eos % (Auto) Baso % (Auto) Absolute Neuts (auto) Absolute Lymphs (auto) Nucleated RBC % Differential Comment Reactive Lymphocytes PT INR APTT Specimen Type Sample Site pH Bicarbonate Actual POC Total CO2 Base Excess O2 Saturation ABG pCO2 ABG pO2 Gustavo Test O2 Delivery Device Liter Flow Blood Gas Notified Whom Blood Gas Notified Time Sodium 136 Potassium 4.0 Chloride 97 L Carbon Dioxide 33.0 H Anion Gap 6 BUN 57 H Creatinine 2.09 H Estim Creat Clear Calc 38.32 Est GFR (MDRD) Af Amer 42 L Est GFR (MDRD) Non-Af 34 L BUN/Creatinine Ratio 27.3 H Glucose 82 Calcium 8.0 L Magnesium Troponin I Urine Color Urine Clarity Urine pH Ur Specific [place] Urine Protein Urine Glucose (UA) Urine Ketones Urine Occult Blood Urine Nitrite Urine Bilirubin Urine Urobilinogen Ur Leukocyte Esterase Urine RBC Urine WBC Ur Squamous Epith Cells Urine Bacteria Hyaline Casts Fine Granular Casts Urine Mucus Ur Random Sodium Urine Creatinine POC Glucose Blood Type Antibody Screen Crossmatch Microbiology 01/13/20 18:40 Sputum, Expectorated/Coughed Gram Stain - Final 01/09/20 07:45 Blood Culture (Wb) - Anticubital Left Blood Culture - Final No growth in 5 days. 01/09/20 07:45 Blood Culture (Wb) - Anticubital Right Blood Culture - Final No growth in 5 days. 01/10/20 06:45 Sputum, Tracheal Aspirate Gram Stain - Final 01/10/20 06:45 Sputum, Tracheal Aspirate Respiratory Culture - Final Culture exhibits no growth. Clinical Impression(s) from Imaging Studies Chest X-Ray 01/09/20 07:46 IMPRESSION: Status post CABG. Vascular congestion and mild CHF with small bilateral pleural effusions and bibasilar atelectasis and/or infiltrates worse on the left side. This has worsened as compared to prior study. Electronically Signed: Tutu Royal, at 8:29 EDT , Service support , Chest X-Ray 01/09/20 14:48 IMPRESSION: Stable CHF with blunting of both costophrenic angles and bibasilar atelectasis worse on the left side. The tip of the endotracheal tube is at 5.9 cm proximal to the kyra. Electronically Signed: Tutu Royal, at 15:27 EDT , Service support , KUB X-Ray 01/09/20 15:18 IMPRESSION: The tip of the oral gastric tube is in the body of the stomach just distal to the gastroesophageal junction. Electronically Signed: Tutu Royal, at 15:28 EDT , Service support , Chest CTA 01/09/20 16:26 IMPRESSION: 1. No pulmonary embolus or aortic dissection. 2. Bilateral pleural effusions. 3. No demonstrated pneumonia. Electronically Signed: Monica Worley MD at 17:56 EDT Tel , Service support , KUB X-Ray 01/13/20 05:00 IMPRESSION: Limited study. Constipation nonspecific bowel gas pattern. Findings suggest possible punctate stone left kidney. Electronically Signed: Barbara Read MD at 5:29 EDT Tel , Service support , KUB X-Ray 01/14/20 09:56 IMPRESSION: No sign of bowel obstruction. Mild effusion/atelectasis at the lung bases. Possible left renal calculus. Electronically Signed: Valdez Parekh DO at 11:02 EDT Tel [phone], Service support , Chest X-Ray 01/14/20 10:30 IMPRESSION: Left basilar effusion with infiltrate/atelectasis, left more than right. Cardiomegaly. Electronically Signed: Valdez Parekh DO at 11:02 EDT Tel [phone], Service support , Abdomen CT 01/14/20 14:04 IMPRESSION: Exam limited by patient''s size and improper positioning of the patient''s arms. Bilateral [id number] pleural effusions and compressive atelectasis of the lower lobes. Small amounts of free fluid in the abdomen and pelvis. No evidence of retroperitoneal hemorrhage. Bilateral nonobstructing renal stones. Electronically Signed: Gabriel Chang MD at 23:33 EDT , Service support , ADDENDUM: 01/15/20 0005 Chest X-Ray 01/14/20 16:35 IMPRESSION: No change since earlier today. Electronically Signed: Gabriel Chang MD at 17:13 EDT , Service support , Medical Necessity - Tobacco Use Smoking Status: Never smoker Assessment/Plan All Active Problems (Last Updated 12/03/19 @ 12:27 by Serena Wilson) Atrial flutter with rapid ventricular response (Acute) Respiratory failure with hypoxia and hypercapnia (Acute) Atrial fibrillation with rapid ventricular response (Acute) S/P CABG x 4 (Acute) Acute exacerbation of CHF (congestive heart failure) (Resolved) RECOMMENDATIONS: 1. Continue antimicrobials. 2. Continue twice daily PPI therapy. 3. Resume Eliquis, diuretics and beta-ronen therapy once medically appropriate. 4. Monitor blood counts daily and transfuse if hemoglobin drops below 7 g/dL. 5. Await general surgery evaluation. 6. Continue empiric BiPAP therapy nightly. Plan for outpatient polysomnogram later this month. 7. Wean supplemental oxygen to maintain saturations at or above 90%. 8. Encourage incentive spirometer use and mobilize patient as tolerated. IMPRESSIONS: 1. Acute combined respiratory failure The patient was initially admitted to the ICU with respiratory failure of unclear precipitating etiology. However, it was felt to be mostly secondary to a state of CHF exacerbation, as opposed to a pulmonary infectious etiology. The patient was able to be weaned from invasive mechanical ventilatory support on January 10. He was maintained on empiric antimicrobials along with scheduled diuretics and transferred out of the ICU on the . He then developed increased work of breathing and anemia, which prompted his transfer back to the ICU on January 13. He remained stable from a respiratory perspective on nasal cannula supplemental oxygen and empiric BiPAP therapy nightly, over concerns for obstructive sleep apnea. We will plan to wean supplemental oxygen to maintain saturations at or above 90%. Encourage incentive spirometer use and mobilize patient as tolerated. 2. Acute decompensated heart failure/troponin elevation Cardiology is currently following. Continue current medical management. The patient's Eliquis, Lasix, beta-ronen and ARB are currently on hold due to hypotension, anemia and renal insufficiency. 3. Anemia The patient presented to the hospital on January 03 with a hemoglobin of 10.9. There has been a slow downward decline in his blood counts over the course of the hospitalization with a rebekah hemoglobin of 7.2 g/dL on January 13. The patient has received a total of 3 units of packed red blood cells. Hemoglobin has improved to 9.3 this morning. The patient remains on twice daily PPI therapy with general surgery evaluation pending. There are no overt signs of active blood loss at this time. 4. Severe sepsis Resolved. Appeared to be either secondary to a urinary tract source of infection or underlying healthcare associated pneumonia. The patient is on appropriate antimicrobials at this time. The patient was initially completing a treatment course of Levaquin due to Klebsiella isolated from his urine culture. His antibiotics were subsequently broadened upon his transfer back to the ICU. 5. Thrombocytosis Unclear etiology. Platelet count appears to have been increasing since the end of December. Will monitor clinically. If indicated, consultation will be obtained from hematology. 6. Probable obstructive sleep apnea The patient would be considered high risk for underlying sleep disordered breat sonal. I would recommend an outpatient polysomnogram be completed upon discharge from the hospital. He is currently scheduled to undergo a diagnostic polysomnogram on January 25. 7. Morbid obesity/hypertension/hyperlipidemia/diabetes mellitus Complicates care, management, recovery and prognosis. Continue basal and sliding scale insulin coverage. This note was generated with [employer] dictation software. It may contain incorrect words, spelling, and punctuation that were not noted in checking the note before signing. Inpatient E&M: [id number] [facility] L3
--- NOTE | 2020-01-15 08:55 | PN.CARD_ITS ---
Subjectve: Patient seen and evaluated. Events of yesterday noted. Overall appears to have improved since yesterday. Objective: Vital Signs Temp Pulse Resp BP Pulse Ox 98.7 F 96 32 H 126/49 H 97 01/15/20 04:00 01/15/20 07:00 01/15/20 07:00 01/15/20 07:00 01/15/20 07:00 Oxygen Flow Rate (L/min) 4 Oxygen Delivery Method Nasal Cannula Weight: 328 lb 7.82 oz Body Mass Index (BMI) 45.1 Finger Stick Blood Glucose 128 Intake and Output for Last 24 Hours 01/13/20 01/14/20 01/15/20 23:59 23:59 23:59 Intake Total 1700 / 1700 2700 / 2700 450 / 450 Output Total 500 / 500 250 / 250 300 / 300 Balance 1200 / 1200 2450 / 2450 150 / 150 General: Awake, Alert HEENT: PERRL, EOMI, Sclera Non Icteric Neck: Supple, Good ROM, No Lymph Node Enlargement Cardiovascular: Regular Rhythm Abdomen: Distended Extremities: Bilateral Edema +1 Psych/Mental Status: Appropriate 01/14/20 13:50: WBC 16.4 H, RBC 2.73 L, Hgb 7.7 L, Hct 25.9 L, MCV 94.9 H, MCH 28.2, MCHC 29.7 L, Plt Count 529 H, MPV 9.6 01/14/20 13:50: Sodium 134 L, Potassium 4.2, Chloride 95 L, Carbon Dioxide 33.0 H, Anion Gap 6, BUN 54 H, Creatinine 2.69 H, Est GFR (MDRD) Af Amer 31 L, Est GFR (MDRD) Non-Af 26 L, BUN/Creatinine Ratio 20.1 H, Glucose 169 H, Calcium 8.3 L 01/14/20 14:48: pH 7.33 L, Bicarbonate Actual 34.7 H, POC Total CO2 37, Base Excess 9 H, O2 Saturation 96, ABG pCO2 66.4 H, ABG pO2 90, Gustavo Test POS 01/14/20 17:00: Hgb 7.2 L, Hct 24.3 L 01/14/20 17:00: Troponin I 0.176 H 01/14/20 17:00: PT 24.5 H, INR 2.3, APTT 55.6 H 01/14/20 20:30: Urine Color Yellow, Urine Clarity Sl. Cloudy, Urine pH 5.0, Ur Specific [place] 1.025, Urine Protein 30 H, Urine Glucose (UA) Normal, Urine Ketones 5 H, Urine Occult Blood 10 H, Urine Nitrite Negative, Urine Bilirubin Negative, Urine Urobilinogen Normal, Ur Leukocyte Esterase Negative, Urine RBC 0-5 SEEN, Urine WBC 0 SEEN 01/15/20 04:40: WBC 14.8 H, RBC 3.27 L, Hgb 9.3 L, Hct 30.5 L, MCV 93.3, MCH 28.4, MCHC 30.5 L, Plt Count 467 H, MPV 9.7 01/15/20 04:40: Sodium 136, Potassium 4.0, Chloride 97 L, Carbon Dioxide 33.0 H, Anion Gap 6, BUN 57 H, Creatinine 2.09 H, Est GFR (MDRD) Af Amer 42 L, Est GFR (MDRD) Non-Af 34 L, BUN/Creatinine Ratio 27.3 H, Glucose 82, Calcium 8.0 L Rhythm: EKG: ECHO: Stress Test: Cardiac Cath: PCI: CT Surgery: Holter monitor: EPS: PPM: CXR: Chest CT Scan: Medical Necessity - Tobacco Use Smoking Status: Never smoker Assessment/Plan 1. Acute decompensated heart failure * He presented within 72 hours post discharge with a decompensation of his heart failure. The above appears to be diastolic in nature. The exact precipitating etiology is not entirely clear to me at this time. It appears that he had a similar event last night which may have been worsened by his anemia * Would recommend discontinuing Lasix for now due to the worsening renal function. This appears to have improved somewhat since his blood transfusion. * Previous echocardiogram was reviewed, and a repeat echocardiogram demonstrated preserved ejection fraction. * It does not appear that patient has had an acute ST elevation myocardial infarction but continued coronary ischemia cannot be completely excluded * Would resume beta-ronen later this evening * Will continue fluid restriction. 2. Hypertension * His blood pressure is under good control and no changes were made with respect to the above * 3. Atrial fibrillation * His ventricular response rate is uncontrolled at this particular time. * We will continue with the amiodarone * I would suggest increasing the metoprolol to 100 twice daily but would hold off giving this until later this evening when his blood pressure has stabilized * He appears to have developed a severe anemia. This will be presumed to be from a GI bleed. I would therefore recommend that we hold the Eliquis at this particular time. * 4. Coronary artery disease * He has known coronary artery disease status post recent coronary artery bypass surgery. His bypass anatomy was recently evaluated. He does have a tenuous saphenous vein graft to the right coronary artery but it appears the distal vessel is small and intervention is not being contemplated based on his cardiac catheterization from 2 week ago. Will recommend aggressive medical therapy. * DisContinue nitrates for now * 5. Hyperlipidemia * Patient will continue with lipid-lowering risk factor modification * 6. Anemia * The etiology of the above is likely secondary to a GI pathology. * Would recommend holding Eliquis at this particular time. * * Overall currently stable.
--- NOTE | 2020-01-15 11:37 | PCM.PROGNOTE ---
<Qian Mckeon - Last Filed: 01/15/20 12:15> Subjective: Patient seen and examined. Reports improvement in breathing. Alert and talking appropriately. Placed on nasal cannula early this morning with intermittent BiPAP. Denies chest pain. - Physical Exam Vitals/I&O's: Vital Signs Temp Pulse Resp BP Pulse Ox 98.7 F 96 32 H 126/49 H 97 01/15/20 04:00 01/15/20 07:00 01/15/20 07:00 01/15/20 07:00 01/15/20 07:00 Oxygen Flow Rate (L/min) 4 Oxygen Delivery Method Nasal Cannula Weight: 328 lb 7.82 oz Body Mass Index (BMI) 45.1 Finger Stick Blood Glucose 128 Intake and Output for Last 24 Hours 01/13/20 01/14/20 01/15/20 23:59 23:59 23:59 Intake Total 1700 / 1700 2700 / 2700 500 / 500 Output Total 500 / 500 250 / 250 300 / 300 Balance 1200 / 1200 2450 / 2450 200 / 200 General: Alert, Oriented x3, Cooperative, No apparent distress HEENT: Atraumatic, PERRLA, EOMI, Normocephalic Neck: Supple, No JVD, Negative Carotid Bruits Lungs: Clear to auscultation, Diminished, Tachypneic Cardiovascular: - - a.fib, rate controlled Abdomen: Bowel Sounds Present, Soft, Non Tender, Non-Distended, Obese Extremities: No clubbing, No cyanosis, Edema - +2 BLLE Skin: No rashes, No breakdown Musculoskeletal: No Tenderness to Palpation of Joints or Extremities Neurological: Cranial nerves II-XII grossly intact, Neuro grossly intact Psych/Mental Status: Normal Affect, Appropriate Microbiology Past 72 Hours 01/13/20 18:40 Sputum, Expectorated/Coughed Gram Stain - Final 01/13/20 18:40 Sputum, Expectorated/Coughed Respiratory Culture - Preliminary Appears to be normal respiratory triny. Further studies to follow. 01/09/20 07:45 Blood Culture (Wb) - Anticubital Left Blood Culture - Final No growth in 5 days. 01/09/20 07:45 Blood Culture (Wb) - Anticubital Right Blood Culture - Final No growth in 5 days. 01/10/20 06:45 Sputum, Tracheal Aspirate Gram Stain - Final 01/10/20 06:45 Sputum, Tracheal Aspirate Respiratory Culture - Final Culture exhibits no growth. Laboratory Results 01/14/20 12:25: POC Glucose 200 H 01/14/20 13:50: WBC 16.4 H, RBC 2.73 L, Hgb 7.7 L, Hct 25.9 L, MCV 94.9 H, MCH 28.2, MCHC 29.7 L, RDW Std Deviation 50.1 H, RDW Coeff of Clayton 14.6, Plt Count 529 H, MPV 9.6 01/14/20 13:50: Sodium 134 L, Potassium 4.2, Chloride 95 L, Carbon Dioxide 33.0 H, Anion Gap 6, BUN 54 H, Creatinine 2.69 H, Estim Creat Clear Calc 29.78, Est GFR (MDRD) Af Amer 31 L, Est GFR (MDRD) Non-Af 26 L, BUN/Creatinine Ratio 20.1 H, Glucose 169 H, Calcium 8.3 L 01/14/20 14:48: Specimen Type ART, Sample Site R RADIAL, pH 7.33 L, Bicarbonate Actual 34.7 H, POC Total CO2 37, Base Excess 9 H, O2 Saturation 96, ABG pCO2 66.4 H, ABG pO2 90, Gustavo Test POS, O2 Delivery Device Nasal Can, Liter Flow 3.0, Blood Gas Notified Whom OTHER, Blood Gas Notified Time 1448 01/14/20 15:46: Blood Type O POSITIVE, Antibody Screen NEGATIVE, Crossmatch See Detail 01/14/20 15:46: Crossmatch See Detail 01/14/20 15:46: Crossmatch See Detail 01/14/20 17:00: Hgb 7.2 L, Hct 24.3 L 01/14/20 17:00: Troponin I 0.176 H 01/14/20 17:00: PT 24.5 H, INR 2.3, APTT 55.6 H 01/14/20 20:30: Urine Color Yellow, Urine Clarity Sl. Cloudy, Urine pH 5.0, Ur Specific Mart 1.025, Urine Protein 30 H, Urine Glucose (UA) Normal, Urine Ketones 5 H, Urine Occult Blood 10 H, Urine Nitrite Negative, Urine Bilirubin Negative, Urine Urobilinogen Normal, Ur Leukocyte Esterase Negative, Urine RBC 0-5 SEEN, Urine WBC 0 SEEN, Ur Squamous Epith Cells 0-5 SEEN, Urine Bacteria 0 SEEN, Hyaline Casts 5-10 SEEN, Fine Granular Casts 0-5 SEEN, Urine Mucus 0 SEEN 01/14/20 20:30: Urine Creatinine 295.00 01/14/20 20:30: Ur Random Sodium 11 01/14/20 21:46: POC Glucose 95 01/15/20 01:29: POC Glucose 72 01/15/20 03:17: POC Glucose 75 01/15/20 04:40: WBC 14.8 H, RBC 3.27 L, Hgb 9.3 L, Hct 30.5 L, MCV 93.3, MCH 28.4, MCHC 30.5 L, RDW Std Deviation 50.7 H, RDW Coeff of Clayton 14.8 H, Plt Count 467 H, MPV 9.7 01/15/20 04:40: Sodium 136, Potassium 4.0, Chloride 97 L, Carbon Dioxide 33.0 H, Anion Gap 6, BUN 57 H, Creatinine 2.09 H, Estim Creat Clear Calc 38.32, Est GFR (MDRD) Af Amer 42 L, Est GFR (MDRD) Non-Af 34 L, BUN/Creatinine Ratio 27.3 H, Glucose 82, Calcium 8.0 L Current Medications Acetaminophen (Tylenol) 650 mg PO Q6H PRN PRN PRN Reason: Pain Score 1-3 /Temp>100.7 Last Admin: 01/12/20 20:32 Dose: 650 mg Documented by: Albuterol Sulfate (Ventolin Aerosols) 2.5 mg INHALATION Q2H PRN PRN PRN Reason: SOB &/OR WHEEZING Last Admin: 01/14/20 07:37 Dose: 2.5 mg Documented by: Amiodarone HCl (Cordarone) 200 mg PO DAILY [facility] Last Admin: 01/14/20 11:06 Dose: 200 mg Documented by: Atorvastatin Calcium (Lipitor) 80 mg PO QHS [facility] Last Admin: 01/14/20 21:39 Dose: Not Given Documented by: Calcium Carbonate (Tums) 500 mg PO Q6H PRN PRN PRN Reason: INDIGESTION Last Admin: 01/13/20 18:16 Dose: 500 mg Documented by: Fluticasone Propionate (Flonase Nasal [place]) 1 spray NASAL DAILY [facility] Last Admin: 01/14/20 11:08 Dose: 1 spray Documented by: Furosemide (Lasix) 40 mg IV X1 PRN PRN Reason: SOB/resp distress Gabapentin (Neurontin) 200 mg PO DAILYCM [facility] Last Admin: 01/14/20 08:35 Dose: 200 mg Documented by: Sodium Chloride () 250 mls @ 15 mls/hr IV .[id number] PRN PRN Reason: Saline Flush Sodium Chloride () 250 mls @ 15 mls/hr IV .[id number] PRN PRN Reason: Additional IVPB Infusion Pantoprazole Sodium 40 mg/ (Sodium Chloride) 110 mls @ 330 mls/hr IV Q12 [facility] Last Infusion: 01/14/20 22:20 Dose: Infused Documented by: Piperacillin Sod/Tazobactam (Sod 3.375 gm/ Sodium Chloride) 50 mls @ 12.5 mls/hr IV Q8 [facility] Last Infusion: 01/15/20 09:15 Dose: Infused Documented by: Insulin Glargine (Lantus (Bk)) 30 units SC BID@0800,1700 [facility] Last Admin: 01/15/20 11:33 Dose: Not Given Documented by: Insulin Human Lispro (Humalog Kwikpen (Bk)) 0 unit SC Q6H [facility]; Protocol Levofloxacin (Levaquin Tablet) 750 mg PO DAILY@0600 [facility] Stop: 01/17/20 06:01 Last Admin: 01/15/20 05:15 Dose: Not Given Documented by: Lidocaine (Lidoderm Patch) 1 patch TOPICAL DAILY PRN PRN Reason: PAIN 1-10/10 Loratadine (Claritin) 5 mg PO DAILY [facility] Last Admin: 01/14/20 11:07 Dose: 5 mg Documented by: Losartan Potassium (Cozaar) 50 mg PO DAILY [facility] Last Admin: 01/13/20 09:17 Dose: 50 mg Documented by: Magnesium Oxide (Mag-Ox 400) 400 mg PO DAILY [facility] Last Admin: 01/14/20 11:06 Dose: 400 mg Documented by: Metoprolol Tartrate (Lopressor (Beta Chidi)) 100 mg PO BID [facility] Last Admin: 01/14/20 21:39 Dose: Not Given Documented by: Morphine Sulfate () 2 - 4 mg IV Q4H PRN PRN PRN Reason: Pain Score 1-10/10 Last Admin: 01/13/20 05:16 Dose: 4 mg Documented by: Oxycodone HCl (Oxyir) 5 mg PO Q4H PRN PRN PRN Reason: Pain Score 4-01/14 Last Admin: 01/12/20 14:30 Dose: 5 mg Documented by: Sodium Chloride () 10 - 40 ml IV UD PRN PRN Reason: SALINE FLUSH Last Admin: 01/15/20 05:16 Dose: 40 ml Documented by: Temazepam (Restoril) 15 mg PO QHS PRN PRN Reason: INSOMNIA Medical Necessity - Tobacco Use Smoking Status: Never smoker Assessment/Plan All Active Problems (Last Updated 12/03/19 @ 12:27 by Serena Wilson) Atrial flutter with rapid ventricular response (Acute) Respiratory failure with hypoxia and hypercapnia (Acute) Atrial fibrillation with rapid ventricular response (Acute) S/P CABG x 4 (Acute) Acute exacerbation of CHF (congestive heart failure) (Resolved) 1. Acute combined hypoxic and hypercapnic respiratory failure secondary to acute on chronic CHF with preserved ejection fraction and suspected healthcare associated pneumonia-cardiology and pulmonary medicine following. Echocardiogram demonstrates an EF of 65%. Chest CT without PE or aortic dissection. Bilateral pleural effusions. BNP greater than 600. Patient with initial fever and leukocytosis which has improved. Patient extubated 01/11/2020. Patient developed increased shortness of breath 01/14/2020 and was transferred to intensive care unit. Patient placed on BiPAP with improvement this morning. Continue IV Zosyn. Lasix on hold due to acute kidney injury. Strict I&O. Daily weight. Cayden wraps bilateral lower extremities. Ambulatory pulse ox prior to discharge. Patient has upcoming sleep study scheduled for 01/26/2020. Repeat chest x-ray 01/14/2020 showed left basilar effusion with infiltrate/atelectasis, left more than right. 2. Acute on chronic macrocytic anemia, suspect GI bleed with associated hypotension-stool for occult blood pending. Status post 3 units PRBC for hemoglobin 7.2. Hemoglobin now stable. Trend H&H. Continue IV PPI. Continue holding aspirin, Eliquis. Dr. Qiu consulted. 3. Severe sepsis secondary to Klebsiella UTI and suspected healthcare associated pneumonia-resume IV Zosyn given ICU transition. Blood culture showed no growth. Patient remains afebrile. 4. Acute kidney injury-Lasix on hold. Nephrology consulted. Renal ultrasound pending. FENa 0.1% suggesting prerenal. Creatinine improving. 5. Recent new onset atrial fibrillation with RVR-rate improved. Continue amiodarone, metoprolol with BP hold parameters. Eliquis on hold due to acute anemia. 6. NSTEMI/CAD-recent CABG in November 2019 at [facility] due to triple vessel disease. On aspirin, metoprolol, statin, losartan. Cardiology following. Aspirin on hold. BP regimen on hold pending improvement in hypotension. 7. Thrombocytosis-unclear etiology. Trend CBC. Recommend outpatient follow-up with hematology. 8. Constipation-KUB demonstrates nonspecific bowel gas pattern, constipation. Resolved following initiation of bowel regimen. 9. Type 2 diabetes mellitus-continue insulin regimen. Lantus decreased to 20 units twice daily due to hypoglycemia overnight. Continue sliding scale insulin. 10. Hypertension-resume BP regimen when hypotension improved. 11. Hyperlipidemia-continue high-dose statin. 12. Morbid obesity-encouraged diet lifestyle modifications. 13. Suspected VASILIY-recommend outpatient pulmonary follow-up, PSG. Patient has sleep study scheduled 01/26/2020 at 2000. DVT prophylaxis-SCDs, Eliquis on hold This patient was seen by ADALID Landeros under the supervision of Dr. Perry. <Mark Perry - Last Filed: 01/15/20 12:50> Subjective: Afebrile. On 4 L of oxygen, pulse ox 97%. Respiratory 25 to 32/min. Blood pressure is stable. Overnight events were noted. Patient had 3 PRBC transfusion and hemoglobin increased from 7.2-9.3. Patient also had multiple bowel movement, responded good with stool softeners after had constipation. No abdominal pain. Patient was on BiPAP yesterday night. Patient feels better. Denies obvious external GI bleed, melena hematochezia or hematemesis. Seen by surgeon Dr. Qiu. Total positive fluid balance 2.3 L. Objective: General: Alert, Oriented x3, Cooperative HEENT: Atraumatic, PERRLA, EOMI, Normocephalic Neck: Supple, No JVD, Negative Carotid Bruits Lungs: air entry diminished in bilateral posterior half lungs. Bilateral pleural effusion, Tachypneic, no crepitations Cardiovascular: - Atrial fibrillation, rate controlled Abdomen: Bowel Sounds Present, Soft, Non Tender, Non-Distended, Obese Extremities: No clubbing, No cyanosis, Edema - +2 bilateral lower extremities Skin: No rashes, No breakdown Musculoskeletal: No Tenderness to Palpation of Joints or Extremities Neurological: Cranial nerves II-XII grossly intact, Neuro grossly intact Psych/Mental Status: Anxious - Physical Exam Vitals/I&O's: Vital Signs Temp Pulse Resp BP Pulse Ox 98.7 F 96 32 H 126/49 H 97 01/15/20 04:00 01/15/20 07:00 01/15/20 07:00 01/15/20 07:00 01/15/20 07:00 Oxygen Flow Rate (L/min) 4 Oxygen Delivery Method Nasal Cannula Weight: 328 lb 7.82 oz Body Mass Index (BMI) 45.1 Finger Stick Blood Glucose 128 Intake and Output for Last 24 Hours 01/13/20 01/14/20 01/15/20 23:59 23:59 23:59 Intake Total 1700 / 1700 2700 / 2700 500 / 500 Output Total 500 / 500 250 / 250 300 / 300 Balance 1200 / 1200 2450 / 2450 200 / 200 Microbiology Past 72 Hours 01/13/20 18:40 Sputum, Expectorated/Coughed Gram Stain - Final 01/13/20 18:40 Sputum, Expectorated/Coughed Respiratory Culture - Preliminary Appears to be normal respiratory triny. Further studies to follow. 01/09/20 07:45 Blood Culture (Wb) - Anticubital Left Blood Culture - Final No growth in 5 days. 01/09/20 07:45 Blood Culture (Wb) - Anticubital Right Blood Culture - Final No growth in 5 days. 01/10/20 06:45 Sputum, Tracheal Aspirate Gram Stain - Final 01/10/20 06:45 Sputum, Tracheal Aspirate Respiratory Culture - Final Culture exhibits no growth. Laboratory Results 01/14/20 13:50: WBC 16.4 H, RBC 2.73 L, Hgb 7.7 L, Hct 25.9 L, MCV 94.9 H, MCH 28.2, MCHC 29.7 L, RDW Std Deviation 50.1 H, RDW Coeff of Clayton 14.6, Plt Count 529 H, MPV 9.6 01/14/20 13:50: Sodium 134 L, Potassium 4.2, Chloride 95 L, Carbon Dioxide 33.0 H, Anion Gap 6, BUN 54 H, Creatinine 2.69 H, Estim Creat Clear Calc 29.78, Est GFR (MDRD) Af Amer 31 L, Est GFR (MDRD) Non-Af 26 L, BUN/Creatinine Ratio 20.1 H, Glucose 169 H, Calcium 8.3 L 01/14/20 14:48: Specimen Type ART, Sample Site R RADIAL, pH 7.33 L, Bicarbonate Actual 34.7 H, POC Total CO2 37, Base Excess 9 H, O2 Saturation 96, ABG pCO2 66.4 H, ABG pO2 90, Gustavo Test POS, O2 Delivery Device Nasal Can, Liter Flow 3.0, Blood Gas Notified Whom OTHER, Blood Gas Notified Time 1448 01/14/20 15:46: Blood Type O POSITIVE, Antibody Screen NEGATIVE, Crossmatch See Detail 01/14/20 15:46: Crossmatch See Detail 01/14/20 15:46: Crossmatch See Detail 01/14/20 17:00: Hgb 7.2 L, Hct 24.3 L 01/14/20 17:00: Troponin I 0.176 H 01/14/20 17:00: PT 24.5 H, INR 2.3, APTT 55.6 H 01/14/20 20:30: Urine Color Yellow, Urine Clarity Sl. Cloudy, Urine pH 5.0, Ur Specific Mart 1.025, Urine Protein 30 H, Urine Glucose (UA) Normal, Urine Ketones 5 H, Urine Occult Blood 10 H, Urine Nitrite Negative, Urine Bilirubin Negative, Urine Urobilinogen Normal, Ur Leukocyte Esterase Negative, Urine RBC 0-5 SEEN, Urine WBC 0 SEEN, Ur Squamous Epith Cells 0-5 SEEN, Urine Bacteria 0 SEEN, Hyaline Casts 5-10 SEEN, Fine Granular Casts 0-5 SEEN, Urine Mucus 0 SEEN 01/14/20 20:30: Urine Creatinine 295.00 01/14/20 20:30: Ur Random Sodium 11 01/14/20 21:46: POC Glucose 95 01/15/20 01:29: POC Glucose 72 01/15/20 03:17: POC Glucose 75 01/15/20 04:40: WBC 14.8 H, RBC 3.27 L, Hgb 9.3 L, Hct 30.5 L, MCV 93.3, MCH 28.4, MCHC 30.5 L, RDW Std Deviation 50.7 H, RDW Coeff of Clayton 14.8 H, Plt Count 467 H, MPV 9.7 01/15/20 04:40: Sodium 136, Potassium 4.0, Chloride 97 L, Carbon Dioxide 33.0 H, Anion Gap 6, BUN 57 H, Creatinine 2.09 H, Estim Creat Clear Calc 38.32, Est GFR (MDRD) Af Amer 42 L, Est GFR (MDRD) Non-Af 34 L, BUN/Creatinine Ratio 27.3 H, Glucose 82, Calcium 8.0 L Current Medications Acetaminophen (Tylenol) 650 mg PO Q6H PRN PRN PRN Reason: Pain Score 1-3 /Temp>100.7 Last Admin: 01/12/20 20:32 Dose: 650 mg Documented by: Albuterol Sulfate (Ventolin Aerosols) 2.5 mg INHALATION Q2H PRN PRN PRN Reason: SOB &/OR WHEEZING Last Admin: 01/14/20 07:37 Dose: 2.5 mg Documented by: Amiodarone HCl (Cordarone) 200 mg PO DAILY [facility] Last Admin: 01/14/20 11:06 Dose: 200 mg Documented by: Atorvastatin Calcium (Lipitor) 80 mg PO QHS [facility] Last Admin: 01/14/20 21:39 Dose: Not Given Documented by: Calcium Carbonate (Tums) 500 mg PO Q6H PRN PRN PRN Reason: INDIGESTION Last Admin: 01/13/20 18:16 Dose: 500 mg Documented by: Fluticasone Propionate (Flonase Nasal [place]) 1 spray NASAL DAILY [facility] Last Admin: 01/14/20 11:08 Dose: 1 spray Documented by: Furosemide (Lasix) 40 mg IV X1 PRN PRN Reason: SOB/resp distress [facility]) [facility] Last Admin: 01/14/20 08:35 Dose: 200 mg Documented by: Sodium Chloride () 250 mls @ 15 mls/hr IV .[id number] PRN PRN Reason: Saline Flush Sodium Chloride () 250 mls @ 15 mls/hr IV .[id number] PRN PRN Reason: Additional IVPB Infusion Pantoprazole Sodium 40 mg/ (Sodium Chloride) 110 mls @ 330 mls/hr IV Q12 [facility] Last Infusion: 01/14/20 22:20 Dose: Infused Documented by: Piperacillin Sod/Tazobactam (Sod 3.375 gm/ Sodium Chloride) 50 mls @ 12.5 mls/hr IV Q8 [facility] Last Infusion: 01/15/20 09:15 Dose: Infused Documented by: Insulin Glargine (Lantus (Bk)) 20 units SC BID@0800,1700 [facility] Insulin Human Lispro (Humalog Kwikpen ([facility])) 0 unit SC Q6H [facility]; Protocol Lidocaine (Lidoderm Patch) 1 patch TOPICAL DAILY PRN PRN Reason: PAIN 1-06/16 Loratadine (Claritin) 5 mg PO DAILY [facility] Last Admin: 01/14/20 11:07 Dose: 5 mg Documented by: Losartan Potassium (Cozaar) 50 mg PO DAILY [facility] Last Admin: 01/13/20 09:17 Dose: 50 mg Documented by: Magnesium Oxide (Mag-Ox 400) 400 mg PO DAILY [facility] Last Admin: 01/14/20 11:06 Dose: 400 mg Documented by: Metoprolol Tartrate (Lopressor (Beta Chidi)) 100 mg PO BID [facility] Last Admin: 01/14/20 21:39 Dose: Not Given Documented by: Morphine Sulfate () 2 - 4 mg IV Q4H PRN PRN PRN Reason: Pain Score 1-10/10 Last Admin: 01/13/20 05:16 Dose: 4 mg Documented by: Oxycodone HCl (Oxyir) 5 mg PO Q4H PRN PRN PRN Reason: Pain Score 4-5/10 Last Admin: 01/12/20 14:30 Dose: 5 mg Documented by: Sodium Chloride () 10 - 40 ml IV UD PRN PRN Reason: SALINE FLUSH Last Admin: 01/15/20 05:16 Dose: 40 ml Documented by: Temazepam (Restoril) 15 mg PO QHS PRN PRN Reason: INSOMNIA Assessment/Plan This patient was seen in conjunction with RN COMPLEX CAREQian. I have independently interviewed and examined the patient and reviewed pertinent history, examination findings, laboratory and plan of management. I have reviewed the note and agree with the documented findings This is a 59-year-old admitted with a complaint of acute onset shortness of breath and mild fever. 1. Acute hypoxic and hypercapnic respiratory failure status post intubation: Currently patient is on 35% FiO2, PEEP 5. Vent management as per electrical instrument repairer. ABG 7.26/78/67 on BiPAP 24/12 on 40% FiO2 on 01/09/2020. The patient was extubated on 01/10 and is on rescue BiPAP therapy as needed and at night. Patient was transferred to ICU yesterday afternoon and was on BiPAP at night. Currently on nasal cannula, 4 L/min. Respiratory status improved as compared to yesterday 2. Acute on chronic macrocytic anemia suspected GI bleed in view of Eliquis and baby aspirin associated with hypotension: Blood pressure has recovered with 1 L of normal saline bolus. Repeat H&H 9.3 from 7.2 after 3 units of PRBC. Seen by Dr. Qiu. Severe sepsis possible secondary to suspected healthcare associated pneumonia and/or Klebsiella pneumoniae UTI: Initially, patient started on IV vancomycin and Zosyn. Chest x-ray independently reviewed and shows vascular congestion and mild CHF with small bilateral pleural effusion, bibasilar atelectasis and/or infiltrate worse on the left side. UA shows WBC 5-10 cells, positive nitrite and LE 25. 3+ bacteria.Urinary antigens are negative. COVID test negative. Sputum tracheal aspirate shows no growth. Lactic acid normal. Urine culture shows Klebsiella pneumonia. 01/14: Yesterday antibiotic was broadened from Levaquin to Zosyn. Patient did not had fever but had significant leukocytosis from 7000-16,400 on 01/13 and today 14.8 thousand. 3. Acute kidney injury on CKD stage II with hyperkalemia: Potassium went up to 5.2 but repeat BMP in afternoon shows 4.2. Increasing BUN/creatinine most probably over diuresis. Lasix discontinued. 01/14: Patient was seen by java programmer. Pimentel catheter was reinserted after initial removal. UA shows hyaline cast 5-12, few granular 0-5 otherwise bland microscopic colitis. WBC 07. LE and nitrite negative. FeNa less than 1, 0.07 possible prerenal or diuretic effect. BUN/creatinine 57/2.09 improved since yesterday. 4. Acute on chronic anemia, normocytic normochromic in nature with leukocytosis: Etiology of leukocytosis unclear but may be related to abdomen as patient had abdominal pain which is resolved now but is still abdominal distention. CT abdomen and pelvis with oral contrast ordered. If significant positive finding in CT abdomen will consult general surgery. Eliquis on hold for now. C 01/14: H&H improved, 9.3 after series PRBC transfusion. 5. Nonstemi with history of coronary artery disease status post CAB.4, trended down to 3.3. Seems secondary to demand ischemia from severe hypoxia. Patient recently had a cath few days ago showed patent graft and did not require PCI. Troponin was up to 4.4. This is likely due to demand ischemia from severe hypoxia. Patient recently had a cath a few days ago which showed patent grafts and did not require PCI. It Communications Manager on board. On Lipitor and atorvastatin. On aspirin, metoprolol, losartan. Nitrate added. 4. Acute on chronic HFpEF BNP was around 635. Continue IV Lasix 40 mg twice daily. Monitor intake and output. Fluid restrictions 1500 cc daily. 01/10: Echo reported as normal LV size with EF 65%. Mild to moderate TR, PASP 42 mmHg 01/14: Discussed with Dr. Rondon. If patient gets more short of breath, Lasix 40 mg IVP PRN ordered. May resume scheduled Lasix from tomorrow a.m. 5. Hyperkalemia: K was 6.8. Patient had Kayexalate. Patient had repeat hyperkalemia, 5.2 but repeat shows normal 4.2. 01/14: Repeat potassium 4.0 today. 6 Type 2 diabetes mellitus: on lantus. ISS. Accuchecks ACHS 01/14: Blood sugars are running low. Discontinue scheduled Lantus and Humalog scale 7 recent A. fib during early postoperative CABG: Currently rate controlled. On amiodarone and metoprolol as well as Eliquis 8. Abdominal pain distention mostly secondary to his severe constipation. KUB reviewed. Shows nonspecific bowel gas and colonic feces. On bowel regimen of senna S, Dulcolax suppository and soapsuds enema. And on Dulcolax tablets. 01/14: CT scan imaging reviewed. Bilateral moderate pleural effusion and compressive atelectasis of lower lobes. No evidence of retroperitoneal hemorrhage. Oral contrast which is in the right lower quadrant. Nondilated bowel loops or evidence of obstruction. Moderate diffuse fecal retention. Patient had good bowel movement. DVT prophylaxis: Bilateral SCDs CODE STATUS: Full code Outpatient sleep study has been scheduled. Total time of the visit including total time spent in counseling or coordination of care, (more than 50% of the total time, spent in obtaining medical information from nurses and other ancillary care providers), discussion with vendor management consultant, dining room helper and java programmer, review of labs and imaging is 30 minutes Inpatient E&M: [id number] [place] [id number]
[2020-01-15] MEDS: Fluticasone 0.05% 1 SPRAY NASAL.SRY NASAL (12:38)
[2020-01-15] MEDS: Amiodarone 200 MG Tablet PO (12:39)
[2020-01-15] MEDS: Loratadine 10 MG Tablet 5 MG PO (12:39)
[2020-01-15] MEDS: Gabapentin 100 MG Capsule 200 MG PO (12:39)
[2020-01-15] MEDS: Magnesium Oxide 400 MG Tablet PO (12:39)
[2020-01-15 12:51] LABS: Bedside Glucose 82 mg/dL (70-110)
--- NOTE | 2020-01-15 15:32 | PCM.CONS.GEN ---
Problem List (1) Anemia Status: Acute Qualifiers: Anemia type: iron deficiency Iron deficiency anemia type: unspecified iron deficiency Qualified Code(s): D50.9 - Iron deficiency anemia, unspecified Reason for Consult Date of Consultation: 01/15/20 History of Present Illness: The patient is a 59 year old M with an extensive past medical history as outlined was admitted through the ED on 01/09/2020 with a complaint of acute onset shortness of breath. Patient recently had CABG done in November at [facility]. He had been seen at [facility] and discharged just 2 days prior to this presentation when he presented for new onset A. fib with RVR. He had a repeat heart cath which showed patent grafts not requiring any PCI. He was also diuresed and improved and was discharged home on on 01/09/2020. However patient states he became acutely short of breath today and when the squad arrived, he was found to have a pulse ox in the 70s. He was also confused. Patient also said that he had had some subjective fever and a new onset cough which is productive of clear sputum. He denied any nausea vomiting or diarrhea. Review of symptoms otherwise negative. On admission in the ED, she had a low-grade fever of 99.6 Fahrenheit. He was tachypneic with respiratory rate going up into the 30s. Pulse rate was normal at 74 and blood pressure was 109/58. Patient had to be emergently put on BiPAP. Labs done in the ED showed potassium of 6.8 with sodium of 135 and bicarb of 36. BNP was 635.8. Initial troponin was 4.41 because it was 0.8. CBC showed white cell count of 19.2 with hemoglobin of 9.8 and platelets of 798. ABG done emergently in the ED also patient was on BiPAP showed pH of 7.18 with bicarb of 35.1 and PCO2 of 94.6 with PO2 of 82. Repeat ABG done in the ED after patient had been on BiPAP for about an hour still showed pH of 7.18 with PCO2 of 91.9 and PO2 of 111. Urinalysis showed 3+ bacteria and positive nitrites. Chest x-ray done showed vascular congestion and mild CHF with small bilateral pleural effusions and bibasilar atelectasis and/or infiltrates worse on the left side which had worsened compared to prior study. Patient was admitted to the ICU and is being managed for acute hypercapnic respiratory failure due to CHF exacerbation and pneumonia to rule out COVID as well as UTI. During his hospitalization he had a drop in his hemoglobin which required 3 units of blood. Patient states that he has not been having any hematemesis he has not had any dark or black stools. And his stool for occult blood has been negative. He is on IV Protonix. Past Medical History Past Medical History (Chronic Problems): Chronic Problems (Last Updated 12/03/19 @ 12:27 by Serena Wilson) Type 2 diabetes mellitus (Chronic) Hypercholesterolemia (Chronic) Obesity (Chronic) History of left heart catheterization (Chronic 01/04/20) 11/18/19 per [facility] @ [facility]: Triple-vessel disease involving a totally occluded dominant right coronary artery, moderately severe disease noted in the left anterior descending artery, ramus intermedius, and circumflex artery. Recommend surgical consult for revascularization. 01/04/2020:Normal Left Ventricular systolic function; LVEF: by LV gram 65 %. Elevated Left Ventricular End Diastolic Pressure. Triple vessel CAD of the RCA, LAD and LCX/OM; Widely patent ARREDONDO To LAD Widely patent composite graft of SVG attached to free ISAK, with grafts to DIAG and OM; Widely patent SVG to PDA (small) with distal 60% anastamotic narrowing; no PCI recommended given recent CABG and anastomotic narrowing perfusing a small vessel. No overt lesion that required PCI; ST elevation was most likely due to pt's cardiac supply/demand mismatch due to rapid afib and outstripping L to R collaterals to previously known occluded RCA; not a true STEMI. 01/04/20 per [facility] @ [facility] Type 2 diabetes mellitus (Chronic) Atherosclerosis of coronary artery of [place] heart without angina pectoris (Chronic) Chronic diastolic (congestive) heart failure (Chronic) Nonrheumatic aortic (valve) stenosis (Chronic) mild per echo 65153 Essential (primary) hypertension (Chronic) Medical History: Medical History (Last Reviewed 01/15/20 @ 15:[address] Olegario Qiu MD) Obesity (Chronic) E66.9 Type 2 diabetes mellitus (Chronic) E11.9 Atherosclerosis of coronary artery of [place] heart without angina pectoris (Chronic) I25.10 Chronic diastolic (congestive) heart failure (Chronic) I50.32 Nonrheumatic aortic (valve) stenosis (Chronic) I35.0 mild per echo 49548 Essential (primary) hypertension (Chronic) I10 Acute exacerbation of CHF (congestive heart failure) (Resolved) I50.9 Acute respiratory failure with hypoxia Onset Date: 11/17/19 J96.01 Elevated troponin Onset Date: 11/17/19 R79.89 Arteriosclerotic cardiovascular disease (Inactive) I25.10 Triple vessel coronary artery disease (Inactive) I25.10 Allergies No Known Allergies Allergy (Verified 01/09/20 07:48) Home Medications: Ambulatory Orders Medication Instructions Recorded Atorvastatin Calcium [Lipitor] 80 mg PO QHS 11/17/19 Fluticasone 0.05% [Flonase Nasal 1 spray NASAL DAILY 11/17/19 [place]] Ipratropium [place] 1 spray INHALATION DAILY 11/17/19 Levocetirizine Dihydrochloride 5 mg PO DAILY 11/17/19 Losartan Potassium 50 mg PO DAILY 11/17/19 Temazepam 15 mg PO QHS PRN 11/17/19 Testosterone Cypionate 200 mg IM X1 11/17/19 metFORMIN HCl [Glucophage] 1,000 mg PO BIDCM 11/17/19 Acetaminophen [Acetaminophen Extra 1,000 mg PO Q6H PRN PRN 01/04/20 Strength] Aspirin [Aspirin, Baby] 2 tab PO DAILY@0800 01/04/20 Bisacodyl [Dulcolax] 10 mg PO QHS 01/04/20 Gabapentin [Neurontin] 200 mg PO DAILY 01/04/20 Guaifenesin [Mucinex] 600 mg PO BID 01/04/20 Insulin Glargine [Lantus SoloStar 45 units SUBCUT BID 01/04/20 Pen] Insulin Lispro [Insulin Lispro 22 unit SQ TIDCM 01/04/20 Kwikpen U-100] Lidocaine [Salonpas] 1 ea TP DAILY 01/04/20 Magnesium Oxide 400 mg PO DAILY 01/04/20 Metoprolol Tartrate [Lopressor 50 mg PO TID 01/04/20 (beta chidi)] Oxycodone [Oxyir] 5 mg PO Q6H PRN PRN 01/04/20 Polyethylene Glycol 3350 [Miralax] 17 gm PO DAILY 01/04/20 Sennosides [Senna] 8.6 mg PO BID 01/04/20 Amiodarone HCl 200 mg PO DAILY 30 Days #30 tab 01/07/20 Amiodarone HCl [Cordarone] 400 mg PO BID 2 Days #4 tab 01/07/20 Apixaban [Eliquis] 5 mg PO BID 30 Days #60 tab 01/07/20 Furosemide [Lasix] 40 mg PO BIDLX 30 Days #60 tab 01/07/20 Surgical History: Surgical History (Last Reviewed 01/15/20 @ 15:[address] Olegario Qiu MD) History of left heart catheterization (Chronic) Onset Date: 01/04/20 Z98.890 11/18/19 per [facility] @ [facility]: Triple-vessel disease involving a totally occluded dominant right coronary artery, moderately severe disease noted in the left anterior descending artery, ramus intermedius, and circumflex artery. Recommend surgical consult for revascularization. 01/04/2020:Normal Left Ventricular systolic function; LVEF: by LV gram 65 %. Elevated Left Ventricular End Diastolic Pressure. Triple vessel CAD of the RCA, LAD and LCX/OM; Widely patent ARREDONDO To LAD Widely patent composite graft of SVG attached to free ISAK, with grafts to DIAG and OM; Widely patent SVG to PDA (small) with distal 60% anastamotic narrowing; no PCI recommended given recent CABG and anastomotic narrowing perfusing a small vessel. No overt lesion that required PCI; ST elevation was most likely due to pt's cardiac supply/demand mismatch due to rapid afib and outstripping L to R collaterals to previously known occluded RCA; not a true STEMI. 01/04/20 per [facility] @ [facility] Surgical History: coronary bypass surgery Psychiatric History: No pertinent psych hx Smoking Status: Never smoker Alcohol: None Drugs: None - *Family History Maternal Family History: Family History (Last Updated 12/03/19 @ 12:26 by Serena Wilson) Mother Hypertension Father Hypertension Heart disease History Items: Cancer - breast cancer, Hypertension Paternal Family History: Family History (Last Updated 12/03/19 @ 12:26 by Serena Wilson) Mother Hypertension Father Hypertension Heart disease History Items: Heart Disease, Hypertension Review of Systems Constitutional: Reports: Malaise Respiratory: Reports: Shortness of Breath Gastrointestinal: Denies: Abdominal Pain, Constipation, Diarrhea, Hematemesis, Nausea, Melena, Vomiting Patient Problems: Active and Suspected Problems (Last Updated 12/03/19 @ 12:27 by Serena Wilson) Anemia (Acute) - Physical Exam Vitals/I&O's: Vital Signs Temp Pulse Resp BP Pulse Ox 98.7 F 93 25 H 126/49 H 94 01/15/20 04:00 01/15/20 11:00 01/15/20 11:00 01/15/20 07:00 01/15/20 11:00 Oxygen Flow Rate (L/min) 4 Oxygen Delivery Method Nasal Cannula Weight: 328 lb 7.82 oz Body Mass Index (BMI) 45.1 Finger Stick Blood Glucose 128 Intake and Output for Last 24 Hours 01/13/20 01/14/20 01/15/20 23:59 23:59 23:59 Intake Total 1700 / 1700 2700 / 2700 500 / 500 Output Total 500 / 500 250 / 250 300 / 300 Balance 1200 / 1200 2450 / 2450 200 / 200 General: Alert, Oriented x3 Lungs: Clear to auscultation Cardiovascular: Regular rate, Regular Rhythm, No murmurs, Tachycardic Abdomen: Bowel Sounds Present, Soft, Non Tender, Obese Microbiology Past 72 Hours 01/15/20 12:15 Stool Stool Occult Blood (BRANDON) - Final 01/13/20 18:40 Sputum, Expectorated/Coughed Gram Stain - Final 01/13/20 18:40 Sputum, Expectorated/Coughed Respiratory Culture - Preliminary Appears to be normal respiratory triny. Further studies to follow. 01/09/20 07:45 Blood Culture (Wb) - Anticubital Left Blood Culture - Final No growth in 5 days. 01/09/20 07:45 Blood Culture (Wb) - Anticubital Right Blood Culture - Final No growth in 5 days. 01/10/20 06:45 Sputum, Tracheal Aspirate Gram Stain - Final 01/10/20 06:45 Sputum, Tracheal Aspirate Respiratory Culture - Final Culture exhibits no growth. Laboratory Results 01/14/20 15:46: Blood Type O POSITIVE, Antibody Screen NEGATIVE, Crossmatch See Detail 01/14/20 15:46: Crossmatch See Detail 01/14/20 15:46: Crossmatch See Detail 01/14/20 17:00: Hgb 7.2 L, Hct 24.3 L 01/14/20 17:00: Troponin I 0.176 H 01/14/20 17:00: PT 24.5 H, INR 2.3, APTT 55.6 H 01/14/20 20:30: Urine Color Yellow, Urine Clarity Sl. Cloudy, Urine pH 5.0, Ur Specific [place] 1.025, Urine Protein 30 H, Urine Glucose (UA) Normal, Urine Ketones 5 H, Urine Occult Blood 10 H, Urine Nitrite Negative, Urine Bilirubin Negative, Urine Urobilinogen Normal, Ur Leukocyte Esterase Negative, Urine RBC 0-5 SEEN, Urine WBC 0 SEEN, Ur Squamous Epith Cells 0-5 SEEN, Urine Bacteria 0 SEEN, Hyaline Casts 5-10 SEEN, Fine Granular Casts 0-5 SEEN, Urine Mucus 0 SEEN 01/14/20 20:30: Urine Creatinine 295.00 01/14/20 20:30: Ur Random Sodium 11 01/14/20 21:46: POC Glucose 95 01/15/20 01:29: POC Glucose 72 01/15/20 03:17: POC Glucose 75 01/15/20 04:40: WBC 14.8 H, RBC 3.27 L, Hgb 9.3 L, Hct 30.5 L, MCV 93.3, MCH 28.4, MCHC 30.5 L, RDW Std Deviation 50.7 H, RDW Coeff of [place] 14.8 H, Plt Count 467 H, MPV 9.7 01/15/20 04:40: Sodium 136, Potassium 4.0, Chloride 97 L, Carbon Dioxide 33.0 H, Anion Gap 6, BUN 57 H, Creatinine 2.09 H, Estim Creat Clear Calc 38.32, Est GFR (MDRD) Af Amer 42 L, Est GFR (MDRD) Non-Af 34 L, BUN/Creatinine Ratio 27.3 H, Glucose 82, Calcium 8.0 L 01/15/20 12:09: POC Glucose 82 Current Medications Acetaminophen (Tylenol) 650 mg PO Q6H PRN PRN PRN Reason: Pain Score 1-3 /Temp>100.7 Last Admin: 01/12/20 20:32 Dose: 650 mg Documented by: Albuterol Sulfate (Ventolin Aerosols) 2.5 mg INHALATION Q2H PRN PRN PRN Reason: SOB &/OR WHEEZING Last Admin: 01/14/20 07:37 Dose: 2.5 mg Documented by: Amiodarone HCl (Cordarone) 200 mg PO DAILY [facility] Last Admin: 01/15/20 12:39 Dose: 200 mg Documented by: Atorvastatin Calcium (Lipitor) 80 mg PO QHS [facility] Last Admin: 01/14/20 21:39 Dose: Not Given Documented by: Calcium Carbonate (Tums) 500 mg PO Q6H PRN PRN PRN Reason: INDIGESTION Last Admin: 01/13/20 18:16 Dose: 500 mg Documented by: Furosemide (Lasix) 40 mg IV X1 PRN PRN Reason: SOB/resp distress Gabapentin (Neurontin) 200 mg PO DAILYCM [facility] Last Admin: 01/15/20 12:39 Dose: 200 mg Documented by: Sodium Chloride () 250 mls @ 15 mls/hr IV .[id number] PRN PRN Reason: Saline Flush Sodium Chloride () 250 mls @ 15 mls/hr IV .[id number] PRN PRN Reason: Additional IVPB Infusion Pantoprazole Sodium 40 mg/ (Sodium Chloride) 110 mls @ 330 mls/hr IV Q12 [facility] Last Admin: 01/15/20 14:07 Dose: 330 mls/hr Documented by: Piperacillin Sod/Tazobactam (Sod 3.375 gm/ Sodium Chloride) 50 mls @ 12.5 mls/hr IV Q8 [facility] Last Infusion: 01/15/20 09:15 Dose: Infused Documented by: Insulin Human Lispro (Humalog Kwikpen (Bkc)) 0 unit SC Q6H [facility]; Protocol Last Admin: 01/15/20 12:44 Dose: Not Given Documented by: Lidocaine (Lidoderm Patch) 1 patch TOPICAL DAILY PRN PRN Reason: PAIN -06/16 Loratadine (Claritin) 5 mg PO DAILY [facility] Last Admin: 01/15/20 12:39 Dose: 5 mg Documented by: Losartan Potassium (Cozaar) 50 mg PO DAILY [facility] Last Admin: 01/13/20 09:17 Dose: 50 mg Documented by: Magnesium Oxide (Mag-Ox 400) 400 mg PO DAILY [facility] Last Admin: 01/15/20 12:39 Dose: 400 mg Documented by: Metoprolol Tartrate (Lopressor (Beta Chidi)) 100 mg PO BID [facility] Last Admin: 01/14/20 21:39 Dose: Not Given Documented by: Morphine Sulfate () 2 - 4 mg IV Q4H PRN PRN PRN Reason: Pain Score 1-1010 Last Admin: 01/13/20 05:16 Dose: 4 mg Documented by: Oxycodone HCl (Oxyir) 5 mg PO Q4H PRN PRN PRN Reason: Pain Score 4-5/10 Last Admin: 01/12/20 14:30 Dose: 5 mg Documented by: Sodium Chloride () 10 - 40 ml IV UD PRN PRN Reason: SALINE FLUSH Last Admin: 01/15/20 05:16 Dose: 40 ml Documented by: Temazepam (Restoril) 15 mg PO QHS PRN PRN Reason: INSOMNIA Assessment/Plan All Active Problems (Last Updated 12/03/19 @ 12:27 by Serena Wilson) Atrial flutter with rapid ventricular response (Acute) Anemia (Acute) Respiratory failure with hypoxia and hypercapnia (Acute) Atrial fibrillation with rapid ventricular response (Acute) S/P CABG x 4 (Acute) Acute exacerbation of CHF (congestive heart failure) (Resolved) At this point I do not think that performing an upper scope was then his benefit. He really does not show any signs of active bleeding. Once he is recovered from this hospitalization possibly doing an upper and lower scope might show some benefit but at the present time with his condition being in the intensive care unit I think observation is the better course of hua here. If he were to develop melanotic stool then possibly doing an upper scope on him on a semiurgent nature would be benefit but at the present time I am going to hold. Office Visits / Consults: [id number] IP Consult L4
[2020-01-15] MEDS: Albuterol 2.5 MG/3 ML VIAL.NEB. INHALATION (16:20)
[2020-01-15 17:50] LABS: Hematocrit 30.5 % (40-54); Hemoglobin 9.6 g/dL (13.0-16.5)
[2020-01-15 19:26] LABS: Bedside Glucose 85 mg/dL (70-110)
[2020-01-15] MEDS: Atorvastatin Calcium 80 MG Tablet PO (21:00)
[2020-01-15] MEDS: Metoprolol Tartrate 100 MG Tablet PO (21:01)
[2020-01-16] VITALS (32 sets, daily range): BP systolic 94–145; BP diastolic 46–88; PULSE 79–109; RESP 12–33; TEMP 36.7–37.4; O2SAT 91–99
[2020-01-16 03:11] LABS: Bedside Glucose 141 mg/dL (70-110)
[2020-01-16 03:45] LABS: Absolute Lymphocyte Count 0.77 X10^3/uL (0.83-4.51); Absolute Neutrophil Count 13.3 X10^3/uL (2.0-7.7); Basophil# 0.02 X10^3/uL; Basophil% 0.1 % (0-1); Eosinophil# 0.13 X10^3/uL; Eosinophils% 0.9 % (0-5); Hematocrit 29.6 % (40-54); Hemoglobin 9.1 g/dL (13.0-16.5); Lymphocyte # 0.77 X10^3/ul (4.0); Mean Corp Hgb Conc 30.7 g/dL (32-36); Mean Corpuscular Hgb 28.5 pg (27.0-32.0); Mean Corpuscular Volume 92.8 fL (80-94); Mean Platelet Vol. 9.5 fl (6.2-12.0); Monocyte% 5.2 % (0-10); NRBC Flagged by Analyzer 0 % (0-5); Neutrophil # 13.28 X10^3/uL (2.7-7.7); Platelet Count 483 K/mm3 (150-450); RBC Distribution Width CV 14.5 % (11.6-14.6); RBC Distribution Width SD 49.1 fl (35.1-43.9); Red Blood Count 3.19 M/mm3 (4.6-6.2); White Blood Count 15.3 K/mm3 (4.4-11.0)
[2020-01-16 04:05] LABS: ALB/GLOB Ratio 0.3 RATIO (0.9-2.4); AST(SGOT) 47 U/L (15-37); Alanine Aminotransfer ALT/SGPT 50 U/L (16-61); Albumin, Serum 1.6 g/dL (3.2-5.0); Alkaline Phosphatase 92 U/L (45-117); Anion Gap 5 (5-15); BUN 48 mg/dL (7-18); BUN/Creat Ratio 33.3 RATIO (10-20); Calcium,Total 8.2 mg/dL (8.5-10.1); Chloride 97 mmol/L (98-107); Creatinine, Serum 1.44 mg/dL (0.70-1.30); EST Glomerular Filtration Rate 53 mL/min (>60); Est Glom Filt Rate - Afr Amer 64 mL/min (>60); Estimated Creatinine Clearance 55.62 ml/min; Globulin 4.9 g/dL (2.2-4.2); Glucose 136 mg/dL (74-106); Potassium 4.1 mmol/L (3.5-5.1); Protein, Total 6.5 g/dL (6.4-8.2); Sodium Level 136 mmol/L (136-145)
[2020-01-16 05:16] LABS: Bedside Glucose 134 mg/dL (70-110)
--- NOTE | 2020-01-16 06:49 | PN_ITS ---
Subjective: Patient did okay overnight. Patient slept in the chair for most of the evening. Patient was compliant with BiPAP therapy. No bleeding has been reported. Patient reports he has not walked much recently, but does feel somewhat weak with standing Patient continues to be noted by nursing to have witnessed apneas and snoring when not on empiric BiPAP therapy. Patient does report significant sleepiness during the day prior to hospitalization. General: Alert, Oriented x3, Cooperative, No apparent distress, Well developed, Well nourished, - - Morbidly obese. Speaking in full sentences. HEENT: Atraumatic, PERRLA, EOMI, Normocephalic, - - No scleral icterus or injection noted Oral: Moist Mucosa, No Gingival or Mucosal Lesions/ Ulcerations Neck: Supple, No JVD, No Nodes, Trachea Midline Lungs: No rhonchi, No wheeze, No rales, Diminished, - - Symmetric expansion. Cardiovascular: Regular rate, Regular Rhythm, Normal S1, Normal S2, No murmurs, No rub noted, No Gallop, - - Sternum is healing well Abdomen: Bowel Sounds Present, Soft, Non Tender, Non-Distended, Obese Extremities: No clubbing, No cyanosis, Edema - Cayden bandages in place Skin: - - No change compared to previous Musculoskeletal: No Tenderness to Palpation of Joints or Extremities Lymphatic: No Cervical, Supraclavicular, or Inguinal Adenopathy Neurological: Cranial nerves II-XII grossly intact, Neuro grossly intact, Motor Exam 5/5 strength throughout Psych/Mental Status: Alert and oriented to time, place, person, mood and affect Vital Signs Temp Pulse Resp BP Pulse Ox 37.3 C H 79 27 H 116/49 L 93 01/16/20 05:00 01/16/20 06:00 01/16/20 06:00 01/16/20 06:00 01/16/20 06:00 Oxygen Flow Rate (L/min) 4 Oxygen Delivery Method Nasal Cannula Weight: 148.5 kg Body Mass Index (BMI) 45.1 Finger Stick Blood Glucose 128 Intake and Output for Last 24 Hours 01/14/20 01/15/20 01/16/20 23:59 23:59 23:59 Intake Total 2700 / 2700 1390 / 1390 240 / 240 Output Total 250 / 250 1650 / 1650 350 / 350 Balance 2450 / 2450 -260 / -260 -110 / -110 Labs (Last 48 Hours) 01/14/20 01/14/20 01/14/20 06:32 06:32 08:16 WBC 15.2 H RBC 2.91 L Hgb 8.1 L Hct 27.7 L MCV 95.2 H MCH 27.8 MCHC 29.2 L RDW Std Deviation 50.3 H RDW Coeff of [place] 14.5 Plt Count 546 H MPV 9.8 Immature Gran % (Auto) 0.900 Neut % (Auto) 88.3 H Lymph % (Auto) 4.7 L [place] % (Auto) 5.7 Eos % (Auto) 0.1 Baso % (Auto) 0.3 Absolute Neuts (auto) 13.4 H Absolute Lymphs (auto) 0.72 L Nucleated RBC % 0 Differential Comment SCANNED PT INR APTT Specimen Type Sample Site pH Bicarbonate Actual POC Total CO2 Base Excess O2 Saturation ABG pCO2 ABG pO2 Gustavo Test O2 Delivery Device Liter Flow Blood Gas Notified Whom Blood Gas Notified Time Sodium 134 L Potassium 5.2 H Chloride 95 L Carbon Dioxide 33.0 H Anion Gap 6 BUN 44 H Creatinine 2.88 H Estim Creat Clear Calc 27.81 Est GFR (MDRD) Af Amer 29 L Est GFR (MDRD) Non-Af 24 L BUN/Creatinine Ratio 15.3 Glucose 199 H Calcium 8.2 L Total Bilirubin AST ALT Alkaline Phosphatase Troponin I Total Protein Albumin Globulin Albumin/Globulin Ratio Urine Color Urine Clarity Urine pH Ur Specific [place] Urine Protein Urine Glucose (UA) Urine Ketones Urine Occult Blood Urine Nitrite Urine Bilirubin Urine Urobilinogen Ur Leukocyte Esterase Urine RBC Urine WBC Ur Squamous Epith Cells Urine Bacteria Hyaline Casts Fine Granular Casts Urine Mucus Ur Random Sodium Urine Creatinine POC Glucose 188 H Blood Type Antibody Screen Crossmatch 01/14/20 01/14/20 01/14/20 12:25 13:50 13:50 WBC 16.4 H RBC 2.73 L Hgb 7.7 L Hct 25.9 L MCV 94.9 H MCH 28.2 MCHC 29.7 L RDW Std Deviation 50.1 H RDW Coeff of [place] 14.6 Plt Count 529 H MPV 9.6 Immature Gran % (Auto) Neut % (Auto) Lymph % (Auto) [place] % (Auto) Eos % (Auto) Baso % (Auto) Absolute Neuts (auto) Absolute Lymphs (auto) Nucleated RBC % Differential Comment PT INR APTT Specimen Type Sample Site pH Bicarbonate Actual POC Total CO2 Base Excess O2 Saturation ABG pCO2 ABG pO2 Gustavo Test O2 Delivery Device Liter Flow Blood Gas Notified Whom Blood Gas Notified Time Sodium 134 L Potassium 4.2 Chloride 95 L Carbon Dioxide 33.0 H Anion Gap 6 BUN 54 H Creatinine 2.69 H Estim Creat Clear Calc 29.78 Est GFR (MDRD) Af Amer 31 L Est GFR (MDRD) Non-Af 26 L BUN/Creatinine Ratio 20.1 H Glucose 169 H Calcium 8.3 L Total Bilirubin AST ALT Alkaline Phosphatase Troponin I Total Protein Albumin Globulin Albumin/Globulin Ratio Urine Color Urine Clarity Urine pH Ur Specific [place] Urine Protein Urine Glucose (UA) Urine Ketones Urine Occult Blood Urine Nitrite Urine Bilirubin Urine Urobilinogen Ur Leukocyte Esterase Urine RBC Urine WBC Ur Squamous Epith Cells Urine Bacteria Hyaline Casts Fine Granular Casts Urine Mucus Ur Random Sodium Urine Creatinine POC Glucose 200 H Blood Type Antibody Screen Crossmatch 01/14/20 01/14/20 01/14/20 14:48 15:46 15:46 WBC RBC Hgb Hct MCV MCH MCHC RDW Std Deviation RDW Coeff of [place] Plt Count MPV Immature Gran % (Auto) Neut % (Auto) Lymph % (Auto) [place] % (Auto) Eos % (Auto) Baso % (Auto) Absolute Neuts (auto) Absolute Lymphs (auto) Nucleated RBC % Differential Comment PT INR APTT Specimen Type ART Sample Site R RADIAL pH 7.33 L Bicarbonate Actual 34.7 H POC Total CO2 37 Base Excess 9 H O2 Saturation 96 ABG pCO2 66.4 H ABG pO2 90 Gustavo Test POS O2 Delivery Device Nasal Can Liter Flow 3.0 Blood Gas Notified Whom OTHER Blood Gas Notified Time 1448 Sodium Potassium Chloride Carbon Dioxide Anion Gap BUN Creatinine Estim Creat Clear Calc Est GFR (MDRD) Af Amer Est GFR (MDRD) Non-Af BUN/Creatinine Ratio Glucose Calcium Total Bilirubin AST ALT Alkaline Phosphatase Troponin I Total Protein Albumin Globulin Albumin/Globulin Ratio Urine Color Urine Clarity Urine pH Ur Specific [place] Urine Protein Urine Glucose (UA) Urine Ketones Urine Occult Blood Urine Nitrite Urine Bilirubin Urine Urobilinogen Ur Leukocyte Esterase Urine RBC Urine WBC Ur Squamous Epith Cells Urine Bacteria Hyaline Casts Fine Granular Casts Urine Mucus Ur Random Sodium Urine Creatinine POC Glucose Blood Type O POSITIVE Antibody Screen NEGATIVE Crossmatch See Detail See Detail 01/14/20 01/14/20 01/14/20 15:46 17:00 17:00 WBC RBC Hgb 7.2 L Hct 24.3 L MCV MCH MCHC RDW Std Deviation RDW Coeff of [place] Plt Count MPV Immature Gran % (Auto) Neut % (Auto) Lymph % (Auto) [place] % (Auto) Eos % (Auto) Baso % (Auto) Absolute Neuts (auto) Absolute Lymphs (auto) Nucleated RBC % Differential Comment PT INR APTT Specimen Type Sample Site pH Bicarbonate Actual POC Total CO2 Base Excess O2 Saturation ABG pCO2 ABG pO2 Gustavo Test O2 Delivery Device Liter Flow Blood Gas Notified Whom Blood Gas Notified Time Sodium Potassium Chloride Carbon Dioxide Anion Gap BUN Creatinine Estim Creat Clear Calc Est GFR (MDRD) Af Amer Est GFR (MDRD) Non-Af BUN/Creatinine Ratio Glucose Calcium Total Bilirubin AST ALT Alkaline Phosphatase Troponin I 0.176 H Total Protein Albumin Globulin Albumin/Globulin Ratio Urine Color Urine Clarity Urine pH Ur Specific [place] Urine Protein Urine Glucose (UA) Urine Ketones Urine Occult Blood Urine Nitrite Urine Bilirubin Urine Urobilinogen Ur Leukocyte Esterase Urine RBC Urine WBC Ur Squamous Epith Cells Urine Bacteria Hyaline Casts Fine Granular Casts Urine Mucus Ur Random Sodium Urine Creatinine POC Glucose Blood Type Antibody Screen Crossmatch See Detail 01/14/20 01/14/20 01/14/20 17:00 20:30 20:30 WBC RBC Hgb Hct MCV MCH MCHC RDW Std Deviation RDW Coeff of [place] Plt Count MPV Immature Gran % (Auto) Neut % (Auto) Lymph % (Auto) [place] % (Auto) Eos % (Auto) Baso % (Auto) Absolute Neuts (auto) Absolute Lymphs (auto) Nucleated RBC % Differential Comment PT 24.5 H INR 2.3 APTT 55.6 H Specimen Type Sample Site pH Bicarbonate Actual POC Total CO2 Base Excess O2 Saturation ABG pCO2 ABG pO2 Gustavo Test O2 Delivery Device Liter Flow Blood Gas Notified Whom Blood Gas Notified Time Sodium Potassium Chloride Carbon Dioxide Anion Gap BUN Creatinine Estim Creat Clear Calc Est GFR (MDRD) Af Amer Est GFR (MDRD) Non-Af BUN/Creatinine Ratio Glucose Calcium Total Bilirubin AST ALT Alkaline Phosphatase Troponin I Total Protein Albumin Globulin Albumin/Globulin Ratio Urine Color Yellow Urine Clarity Sl. Cloudy Urine pH 5.0 Ur Specific [place] 1.025 Urine Protein 30 H Urine Glucose (UA) Normal Urine Ketones 5 H Urine Occult Blood 10 H Urine Nitrite Negative Urine Bilirubin Negative Urine Urobilinogen Normal Ur Leukocyte Esterase Negative Urine RBC 0-5 SEEN Urine WBC 0 SEEN Ur Squamous Epith Cells 0-5 SEEN Urine Bacteria 0 SEEN Hyaline Casts 5-10 SEEN Fine Granular Casts 0-5 SEEN Urine Mucus 0 SEEN Ur Random Sodium Urine Creatinine 295.00 POC Glucose Blood Type Antibody Screen Crossmatch 01/14/20 01/14/20 01/15/20 20:30 21:46 01:29 WBC RBC Hgb Hct MCV MCH MCHC RDW Std Deviation RDW Coeff of [place] Plt Count MPV Immature Gran % (Auto) Neut % (Auto) Lymph % (Auto) [place] % (Auto) Eos % (Auto) Baso % (Auto) Absolute Neuts (auto) Absolute Lymphs (auto) Nucleated RBC % Differential Comment PT INR APTT Specimen Type Sample Site pH Bicarbonate Actual POC Total CO2 Base Excess O2 Saturation ABG pCO2 ABG pO2 Gustavo Test O2 Delivery Device Liter Flow Blood Gas Notified Whom Blood Gas Notified Time Sodium Potassium Chloride Carbon Dioxide Anion Gap BUN Creatinine Estim Creat Clear Calc Est GFR (MDRD) Af Amer Est GFR (MDRD) Non-Af BUN/Creatinine Ratio Glucose Calcium Total Bilirubin AST ALT Alkaline Phosphatase Troponin I Total Protein Albumin Globulin Albumin/Globulin Ratio Urine Color Urine Clarity Urine pH Ur Specific [place] Urine Protein Urine Glucose (UA) Urine Ketones Urine Occult Blood Urine Nitrite Urine Bilirubin Urine Urobilinogen Ur Leukocyte Esterase Urine RBC Urine WBC Ur Squamous Epith Cells Urine Bacteria Hyaline Casts Fine Granular Casts Urine Mucus Ur Random Sodium 11 Urine Creatinine POC Glucose 95 72 Blood Type Antibody Screen Crossmatch 01/15/20 01/15/20 01/15/20 03:17 04:40 04:40 WBC 14.8 H RBC 3.27 L Hgb 9.3 L Hct 30.5 L MCV 93.3 MCH 28.4 MCHC 30.5 L RDW Std Deviation 50.7 H RDW Coeff of [place] 14.8 H Plt Count 467 H MPV 9.7 Immature Gran % (Auto) Neut % (Auto) Lymph % (Auto) [place] % (Auto) Eos % (Auto) Baso % (Auto) Absolute Neuts (auto) Absolute Lymphs (auto) Nucleated RBC % Differential Comment PT INR APTT Specimen Type Sample Site pH Bicarbonate Actual POC Total CO2 Base Excess O2 Saturation ABG pCO2 ABG pO2 Gustavo Test O2 Delivery Device Liter Flow Blood Gas Notified Whom Blood Gas Notified Time Sodium 136 Potassium 4.0 Chloride 97 L Carbon Dioxide 33.0 H Anion Gap 6 BUN 57 H Creatinine 2.09 H Estim Creat Clear Calc 38.32 Est GFR (MDRD) Af Amer 42 L Est GFR (MDRD) Non-Af 34 L BUN/Creatinine Ratio 27.3 H Glucose 82 Calcium 8.0 L Total Bilirubin AST ALT Alkaline Phosphatase Troponin I Total Protein Albumin Globulin Albumin/Globulin Ratio Urine Color Urine Clarity Urine pH Ur Specific [place] Urine Protein Urine Glucose (UA) Urine Ketones Urine Occult Blood Urine Nitrite Urine Bilirubin Urine Urobilinogen Ur Leukocyte Esterase Urine RBC Urine WBC Ur Squamous Epith Cells Urine Bacteria Hyaline Casts Fine Granular Casts Urine Mucus Ur Random Sodium Urine Creatinine POC Glucose 75 Blood Type Antibody Screen Crossmatch 01/15/20 01/15/20 01/15/20 12:09 17:45 19:23 WBC RBC Hgb 9.6 L Hct 30.5 L MCV MCH MCHC RDW Std Deviation RDW Coeff of [place] Plt Count MPV Immature Gran % (Auto) Neut % (Auto) Lymph % (Auto) [place] % (Auto) Eos % (Auto) Baso % (Auto) Absolute Neuts (auto) Absolute Lymphs (auto) Nucleated RBC % Differential Comment PT INR APTT Specimen Type Sample Site pH Bicarbonate Actual POC Total CO2 Base Excess O2 Saturation ABG pCO2 ABG pO2 Gustavo Test O2 Delivery Device Liter Flow Blood Gas Notified Whom Blood Gas Notified Time Sodium Potassium Chloride Carbon Dioxide Anion Gap BUN Creatinine Estim Creat Clear Calc Est GFR (MDRD) Af Amer Est GFR (MDRD) Non-Af BUN/Creatinine Ratio Glucose Calcium Total Bilirubin AST ALT Alkaline Phosphatase Troponin I Total Protein Albumin Globulin Albumin/Globulin Ratio Urine Color Urine Clarity Urine pH Ur Specific [place] Urine Protein Urine Glucose (UA) Urine Ketones Urine Occult Blood Urine Nitrite Urine Bilirubin Urine Urobilinogen Ur Leukocyte Esterase Urine RBC Urine WBC Ur Squamous Epith Cells Urine Bacteria Hyaline Casts Fine Granular Casts Urine Mucus Ur Random Sodium Urine Creatinine POC Glucose 82 85 Blood Type Antibody Screen Crossmatch 01/15/20 01/16/20 01/16/20 23:16 03:30 03:30 WBC 15.3 H RBC 3.19 L Hgb 9.1 L Hct 29.6 L MCV 92.8 MCH 28.5 MCHC 30.7 L RDW Std Deviation 49.1 H RDW Coeff of [place] 14.5 Plt Count 483 H MPV 9.5 Immature Gran % (Auto) 1.800 H Neut % (Auto) 87.0 H Lymph % (Auto) 5.0 L [place] % (Auto) 5.2 Eos % (Auto) 0.9 Baso % (Auto) 0.1 Absolute Neuts (auto) 13.3 H Absolute Lymphs (auto) 0.77 L Nucleated RBC % 0 Differential Comment PT INR APTT Specimen Type Sample Site pH Bicarbonate Actual POC Total CO2 Base Excess O2 Saturation ABG pCO2 ABG pO2 Gustavo Test O2 Delivery Device Liter Flow Blood Gas Notified Whom Blood Gas Notified Time Sodium 136 Potassium 4.1 Chloride 97 L Carbon Dioxide 34.0 H Anion Gap 5 BUN 48 H Creatinine 1.44 H Estim Creat Clear Calc 55.62 Est GFR (MDRD) Af Amer 64 Est GFR (MDRD) Non-Af 53 L BUN/Creatinine Ratio 33.3 H Glucose 136 H Calcium 8.2 L Total Bilirubin 0.50 AST 47 H ALT 50 Alkaline Phosphatase 92 Troponin I Total Protein 6.5 Albumin 1.6 L Globulin 4.9 H Albumin/Globulin Ratio 0.3 L Urine Color Urine Clarity Urine pH Ur Specific [place] Urine Protein Urine Glucose (UA) Urine Ketones Urine Occult Blood Urine Nitrite Urine Bilirubin Urine Urobilinogen Ur Leukocyte Esterase Urine RBC Urine WBC Ur Squamous Epith Cells Urine Bacteria Hyaline Casts Fine Granular Casts Urine Mucus Ur Random Sodium Urine Creatinine POC Glucose 141 H Blood Type Antibody Screen Crossmatch 01/16/20 04:56 WBC RBC Hgb Hct MCV MCH MCHC RDW Std Deviation RDW Coeff of [place] Plt Count MPV Immature Gran % (Auto) Neut % (Auto) Lymph % (Auto) [place] % (Auto) Eos % (Auto) Baso % (Auto) Absolute Neuts (auto) Absolute Lymphs (auto) Nucleated RBC % Differential Comment PT INR APTT Specimen Type Sample Site pH Bicarbonate Actual POC Total CO2 Base Excess O2 Saturation ABG pCO2 ABG pO2 Gustavo Test O2 Delivery Device Liter Flow Blood Gas Notified Whom Blood Gas Notified Time Sodium Potassium Chloride Carbon Dioxide Anion Gap BUN Creatinine Estim Creat Clear Calc Est GFR (MDRD) Af Amer Est GFR (MDRD) Non-Af BUN/Creatinine Ratio Glucose Calcium Total Bilirubin AST ALT Alkaline Phosphatase Troponin I Total Protein Albumin Globulin Albumin/Globulin Ratio Urine Color Urine Clarity Urine pH Ur Specific [place] Urine Protein Urine Glucose (UA) Urine Ketones Urine Occult Blood Urine Nitrite Urine Bilirubin Urine Urobilinogen Ur Leukocyte Esterase Urine RBC Urine WBC Ur Squamous Epith Cells Urine Bacteria Hyaline Casts Fine Granular Casts Urine Mucus Ur Random Sodium Urine Creatinine POC Glucose 134 H Blood Type Antibody Screen Crossmatch Microbiology 01/15/20 12:15 Stool Stool Occult Blood (BRANDON) - Final 01/13/20 18:40 Sputum, Expectorated/Coughed Gram Stain - Final 01/13/20 18:40 Sputum, Expectorated/Coughed Respiratory Culture - Preliminary Appears to be normal respiratory triny. Further studies to follow. 01/09/20 07:45 Blood Culture (Wb) - Anticubital Left Blood Culture - Final No growth in 5 days. 01/09/20 07:45 Blood Culture (Wb) - Anticubital Right Blood Culture - Final No growth in 5 days. Medical Necessity - Tobacco Use Smoking Status: Never smoker Assessment/Plan All Active Problems (Last Reviewed 01/15/20 @ 15:[address] Olegario Qiu MD) Atrial flutter with rapid ventricular response (Acute) Anemia (Acute) Respiratory failure with hypoxia and hypercapnia (Acute) Atrial fibrillation with rapid ventricular response (Acute) S/P CABG x 4 (Acute) Acute exacerbation of CHF (congestive heart failure) (Resolved) RECOMMENDATIONS: 1. Patient can likely be taken off of antibiotics after completion of a 7- day course 2. Continue twice daily PPI therapy. 3. Okay to resume Eliquis, diuretics and beta-ronen therapy from my perspective 4. Monitor blood counts daily and transfuse if hemoglobin drops below 7 g/dL. 5. Possibly transfer from the intensive care unit if okay with surgery 6. Continue empiric BiPAP therapy nightly. Plan for outpatient polysomnogram later this month. 7. Wean supplemental oxygen to maintain saturations at or above 90%. 8. Encourage incentive spirometer use and mobilize patient as tolerated. IMPRESSIONS: 1. Acute combined respiratory failure The patient was initially admitted to the ICU with respiratory failure of unclear precipitating etiology. However, it was felt to be mostly secondary to a state of CHF exacerbation, as opposed to a pulmonary infectious etiology. The patient was able to be weaned from invasive mechanical ventilatory support on January 10. He was maintained on empiric antimicrobials along with scheduled diuretics and transferred out of the ICU on the . He then developed in creased work of breathing and anemia, which prompted his transfer back to the ICU on January 13. He remained stable from a respiratory perspective on nasal cannula supplemental oxygen and empiric BiPAP therapy nightly, over concerns for obstructive sleep apnea. We will plan to wean supplemental oxygen to maintain saturations at or above 90%. Encourage incentive spirometer use and mobilize patient as tolerated. 2. Acute decompensated heart failure/troponin elevation Cardiology is currently following. Continue current medical management. Likely okay to reinitiate patient's Eliquis from my perspective. Diuretics and beta-ronen can be reinitiated in a stepwise fashion. Renal function continues to improve. 3. Anemia The patient presented to the hospital on January 03 with a hemoglobin of 10.9. There has been a slow downward decline in his blood counts over the course of the hospitalization with a rebekah hemoglobin of 7.2 g/dL on January 13. The patient has received a total of 3 units of packed red blood cells. Hemoglobin has improved to 9.1 this morning. The patient remains on twice daily PPI therapy. If okay with surgery, would recommend transfer from the intensive care unit there are no overt signs of active blood loss at this time. 4. Severe sepsis Resolved. Appeared to be either secondary to a urinary tract source of infection or underlying healthcare associated pneumonia. The patient is on appropriate antimicrobials at this time. The patient was initially completing a treatment course of Levaquin due to Klebsiella isolated from his urine culture. Patient can likely be taken off of antibiotics from my perspective. 5. Thrombocytosis Unclear etiology. Platelet count appears to have been increasing since the end of December. Possible consumptive process versus sequestration. Will monitor clinically. If indicated, consultation will be obtained from hematology. 6. Probable obstructive sleep apnea The patient would be considered high risk for underlying sleep disordered breathing. I would recommend an outpatient polysomnogram be completed upon discharge from the hospital. He is currently scheduled to undergo a diagnostic polysomnogram on January 25. 7. Morbid obesity/hypertension/hyperlipidemia/diabetes mellitus Complicates care, management, recovery and prognosis. Continue basal and sliding scale insulin coverage. Inpatient E&M: 44077 [facility] L[facility]
--- NOTE | 2020-01-16 07:00 | US_ITS ---
STUDY: RENAL ULTRASOUND - COMPLETE REASON FOR EXAM: Male, 59 years old. ARF TECHNIQUE: Ultrasound evaluation of the kidneys was performed with real-time and static khalil-scale imaging. COMPARISON: None. FINDINGS: RIGHT KIDNEY: Normal location of the right kidney, which is normal in size. The right kidney measures 13.5 cm x 7 cm x 6.8 cm. There is a normal cortex of the right kidney. The renal cortex measures 1.8 cm. There is no right renal mass or cyst. There are no right renal calculi. There is no right hydronephrosis. DISTAL RIGHT URETER: There is non-visualization of the distal right ureter. There is no demonstrated right ureterovesical junction calculus. There is no demonstrated right ureteral jet. LEFT KIDNEY: Normal location of the left kidney, which is normal in size. The left kidney measures 13.4 cm x 6.3 cm x 7.1 cm. There is a normal cortex of the left kidney. The renal cortex measures 2.1 cm. There is no left renal mass or cyst. A 5 mm nonobstructive intrarenal calculus is seen. There is no left hydronephrosis. DISTAL LEFT URETER: There is non-visualization of the distal left ureter. There is no demonstrated left ureterovesical junction calculus. There is no demonstrated left ureteral jet. BLADDER: A Pimentel catheter is seen within the urinary bladder. Urinary bladder is empty. US/Kidney and Bladder IMPRESSION: 5 mm nonobstructive left intrarenal calculus. Electronically Signed: Tutu Royal, at 8:42 EDT , Service support ,
[2020-01-16] MEDS: Loratadine 10 MG Tablet 5 MG PO (09:12)
[2020-01-16] MEDS: Gabapentin 100 MG Capsule 200 MG PO (09:12)
[2020-01-16] MEDS: Magnesium Oxide 400 MG Tablet PO (09:12)
[2020-01-16] MEDS: Metoprolol Tartrate 100 MG Tablet PO ×2 (09:12→21:56)
[2020-01-16] MEDS: Amiodarone 200 MG Tablet PO (09:12)
--- NOTE | 2020-01-16 09:48 | CASEMGMT ---
This RN CM received message from Viji at [facility] to call her back. Viji's call back # [phone]. This RN CM placed call back to Viji at this time and message left for her to call this RN CM back directly. Bakari PENNINGTON CM
[2020-01-16] MEDS: guaiFENesin 1,200 MG Tablet 1200 MG PO ×2 (10:07→21:57)
[2020-01-16] MEDS: Albuterol 2.5 MG/3 ML VIAL.NEB. INHALATION ×2 (10:42→21:05)
[2020-01-16 11:06] LABS: Bedside Glucose 184 mg/dL (70-110)
[2020-01-16] MEDS: Insulin Lispro 100 UNIT/ML INSULN.PEN SC ×3 (11:34→21:54)
--- NOTE | 2020-01-16 13:41 | PN_ITS ---
<Qian Mckeon - Last Filed: 01/16/20 14:19> Patient Problems: Active and Suspected Problems (Last Reviewed 01/15/20 @ 15:[address] Olegario Qiu MD) Anemia (Acute) Subjective: Patient seen and examined. Denies shortness of breath. Reports he feels improved. - Physical Exam Vitals/I&O's: Vital Signs Temp Pulse Resp BP Pulse Ox 99.4 F H 105 H 24 H 144/88 H 94 01/16/20 12:00 01/16/20 12:00 01/16/20 12:00 01/16/20 12:00 01/16/20 12:00 Oxygen Flow Rate (L/min) 2 Oxygen Delivery Method Nasal Cannula Weight: 327 lb 6.183 oz Body Mass Index (BMI) 45.1 Finger Stick Blood Glucose 128 Intake and Output for Last 24 Hours 01/14/20 01/15/20 01/16/20 23:59 23:59 23:59 Intake Total 2700 / 2700 1390 / 1390 880 / 880 Output Total 250 / 250 1650 / 1650 650 / 650 Balance 2450 / 2450 -260 / -260 230 / 230 General: Alert, Oriented x3, Cooperative HEENT: Atraumatic, PERRLA, EOMI, Normocephalic Neck: Supple, No JVD, Negative Carotid Bruits Lungs: Clear to auscultation, Normal air movement Cardiovascular: - - Atrial fibrillation, rate controlled Abdomen: Bowel Sounds Present, Soft, Non Tender, Non-Distended, Obese Extremities: No clubbing, No cyanosis, Edema - +2 bilateral lower extremities Skin: No rashes, No breakdown Musculoskeletal: No Tenderness to Palpation of Joints or Extremities Neurological: Cranial nerves II-XII grossly intact, Neuro grossly intact Psych/Mental Status: Normal Affect, Appropriate Microbiology Past 72 Hours 01/13/20 18:40 Sputum, Expectorated/Coughed Gram Stain - Final 01/13/20 18:40 Sputum, Expectorated/Coughed Respiratory Culture - Final 01/15/20 12:15 Stool Stool Occult Blood (BRANDON) - Final 01/09/20 07:45 Blood Culture (Wb) - Anticubital Left Blood Culture - Final No growth in 5 days. 01/09/20 07:45 Blood Culture (Wb) - Anticubital Right Blood Culture - Final No growth in 5 days. Laboratory Results 01/14/20 15:46: Crossmatch See Detail 01/15/20 17:45: Hgb 9.6 L, Hct 30.5 L 01/15/20 19:23: POC Glucose 85 01/15/20 23:16: POC Glucose 141 H 01/16/20 03:30: WBC 15.3 H, RBC 3.19 L, Hgb 9.1 L, Hct 29.6 L, MCV 92.8, MCH 28.5, MCHC 30.7 L, RDW Std Deviation 49.1 H, RDW Coeff of Clayton 14.5, Plt Count 483 H, MPV 9.5, Immature Gran % (Auto) 1.800 H, Neut % (Auto) 87.0 H, Lymph % (Auto) 5.0 L, Snyder % (Auto) 5.2, Eos % (Auto) 0.9, Baso % (Auto) 0.1, Absolute Neuts (auto) 13.3 H, Absolute Lymphs (auto) 0.77 L, Nucleated RBC % 0 01/16/20 03:30: Sodium 136, Potassium 4.1, Chloride 97 L, Carbon Dioxide 34.0 H, Anion Gap 5, BUN 48 H, Creatinine 1.44 H, Estim Creat Clear Calc 55.62, Est GFR (MDRD) Af Amer 64, Est GFR (MDRD) Non-Af 53 L, BUN/Creatinine Ratio 33.3 H, Glucose 136 H, Calcium 8.2 L, Total Bilirubin 0.50, AST 47 H, ALT 50, Alkaline Phosphatase 92, Total Protein 6.5, Albumin 1.6 L, Globulin 4.9 H, Albumin/Globulin Ratio 0.3 L 01/16/20 04:56: POC Glucose 134 H 01/16/20 10:57: POC Glucose 184 H Current Medications Acetaminophen (Tylenol) 650 mg PO Q6H PRN PRN PRN Reason: Pain Score 1-3 /Temp>100.7 Last Admin: 01/12/20 20:32 Dose: 650 mg Documented by: Albuterol Sulfate (Ventolin Aerosols) 2.5 mg INHALATION Q2H PRN PRN PRN Reason: SOB &/OR WHEEZING Last Admin: 01/16/20 10:42 Dose: 2.5 mg Documented by: Amiodarone HCl (Cordarone) 200 mg PO DAILY [facility] Last Admin: 01/16/20 09:12 Dose: 200 mg Documented by: Atorvastatin Calcium (Lipitor) 80 mg PO QHS [facility] Last Admin: 01/15/20 21:00 Dose: 80 mg Documented by: Calcium Carbonate (Tums) 500 mg PO Q6H PRN PRN PRN Reason: INDIGESTION Last Admin: 01/13/20 18:16 Dose: 500 mg Documented by: Furosemide (Lasix) 40 mg IV X1 PRN PRN Reason: SOB/resp distress Gabapentin (Neurontin) 200 mg PO DAILYCM [facility] Last Admin: 01/16/20 09:12 Dose: 200 mg Documented by: Guaifenesin (Mucinex) 1,200 mg PO BID PRN PRN PRN Reason: COUGH Last Admin: 01/16/20 10:07 Dose: 1,200 mg Documented by: Sodium Chloride () 250 mls @ 15 mls/hr IV .[id number] PRN PRN Reason: Saline Flush Sodium Chloride () 250 mls @ 15 mls/hr IV .[id number] PRN PRN Reason: Additional IVPB Infusion Piperacillin Sod/Tazobactam (Sod 3.375 gm/ Sodium Chloride) 50 mls @ 12.5 mls/hr IV Q8 [facility] Stop: 01/16/20 22:01 Last Infusion: 01/16/20 09:02 Dose: Infused Documented by: Insulin Human Lispro (Humalog Kwikpen (Bkc)) 0 unit SC [facility]; Protocol Last Admin: 01/16/20 11:34 Dose: 1 u Documented by: Lidocaine (Lidoderm Patch) 1 patch TOPICAL DAILY PRN PRN Reason: PAIN -06/16 Loratadine (Claritin) 5 mg PO DAILY [facility] Last Admin: 01/16/20 09:12 Dose: 5 mg Documented by: Losartan Potassium (Cozaar) 50 mg PO DAILY [facility] Last Admin: 01/13/20 09:17 Dose: 50 mg Documented by: Magnesium Oxide (Mag-Ox 400) 400 mg PO DAILY [facility] Last Admin: 01/16/20 09:12 Dose: 400 mg Documented by: Metoprolol Tartrate (Lopressor (Beta Chidi)) 100 mg PO BID [facility] Last Admin: 01/16/20 09:12 Dose: 100 mg Documented by: Morphine Sulfate () 2 - 4 mg IV Q4H PRN PRN PRN Reason: Pain Score 1-10/10 Last Admin: 01/13/20 05:16 Dose: 4 mg Documented by: Oxycodone HCl (Oxyir) 5 mg PO Q4H PRN PRN PRN Reason: Pain Score 4-5/10 Last Admin: 01/12/20 14:30 Dose: 5 mg Documented by: Pantoprazole Sodium (Protonix) 40 mg PO Q12 [facility] Sodium Chloride () 10 - 40 ml IV UD PRN PRN Reason: SALINE FLUSH Last Admin: 01/15/20 05:16 Dose: 40 ml Documented by: Temazepam (Restoril) 15 mg PO QHS PRN PRN Reason: INSOMNIA Medical Necessity - Tobacco Use Smoking Status: Never smoker Assessment/Plan All Active Problems (Last Reviewed 01/15/20 @ 15:[address] Olegario Qiu MD) Atrial flutter with rapid ventricular response (Acute) Anemia (Acute) Respiratory failure with hypoxia and hypercapnia (Acute) Atrial fibrillation with rapid ventricular response (Acute) S/P CABG x 4 (Acute) Acute exacerbation of CHF (congestive heart failure) (Resolved) 1. Acute combined hypoxic and hypercapnic respiratory failure secondary to acute on chronic CHF with preserved ejection fraction and suspected healthcare associated pneumonia-cardiology and pulmonary medicine following. Echocardiogram demonstrates an EF of 65%. Chest CT without PE or aortic dissection. Bilateral pleural effusions. BNP greater than 600. Patient with initial fever and leukocytosis which has improved. Patient extubated 01/11/2020. Patient developed increased shortness of breath 01/14/2020 and was transferred to intensive care unit. Continue IV Zosyn. Lasix on hold due to acute kidney injury. Strict I&O. Daily weight. Cayden wraps bilateral lower extremities. Ambulatory pulse ox prior to discharge. Patient has upcoming sleep study scheduled for 01/26/2020. Repeat chest x-ray 01/14/2020 showed left basilar effusion with infiltrate/atelectasis, left more than right. 2. Acute on chronic macrocytic anemia, suspect GI bleed with associated hypotension-stool for occult blood negative. Status post 3 units PRBC for hemoglobin 7.2. Hemoglobin now stable. Trend CBC. Continue IV PPI. Continue holding aspirin, Eliquis. Dr. Qiu consulted. Given hemoglobin stable, plan for outpatient scopes. If H&H stable in a.m., plan to resume aspirin/Eliquis. 3. Severe sepsis secondary to Klebsiella UTI and suspected healthcare associated pneumonia-continue IV Zosyn. Blood culture showed no growth. Patient remains afebrile. Discontinue antibiotics following 7-day course. 4. Acute kidney injury-Lasix on hold. Nephrology consulted. Renal ultrasound demonstrates 5 mm nonobstructive left intrarenal calculus. FENa 0.1% suggesting prerenal. Creatinine improved. Plan to resume Lasix in a.m. 5. Recent new onset atrial fibrillation with RVR-rate improved. Continue amiodarone, metoprolol with BP hold parameters. Eliquis on hold due to acute anemia. 6. NSTEMI/CAD-recent CABG in November [address] [facility] due to triple vessel disease. On aspirin, metoprolol, statin, losartan. Cardiology following. Aspirin on hold. 7. Thrombocytosis-unclear etiology. Trend CBC. Recommend outpatient follow-up with hematology. 8. Constipation-KUB demonstrates nonspecific bowel gas pattern, constipation. Resolved following initiation of bowel regimen. 9. Type 2 diabetes mellitus-continue insulin regimen. Lantus discontinued due to hypoglycemia. Continue sliding scale insulin. 10. Hypertension-stable, continue current regimen. 11. Hyperlipidemia-continue high-dose statin. 12. Morbid obesity-encouraged diet lifestyle modifications. 13. Suspected VASILIY-recommend outpatient pulmonary follow-up, PSG. Patient has sleep study scheduled 01/26/2020 at 2000. DVT prophylaxis-SCDs, Eliquis on hold This patient was seen by ADALID Landeros under the supervision of Dr. Ventura. <Maria Del Carmen Ventura - Last Filed: 01/16/20 15:06> - Physical Exam Vitals/I&O's: Vital Signs Temp Pulse Resp BP Pulse Ox 99.4 F H 105 H 24 H 144/88 H 94 01/16/20 12:00 01/16/20 12:00 01/16/20 12:00 01/16/20 12:00 01/16/20 12:00 Oxygen Flow Rate (L/min) 2 Oxygen Delivery Method Nasal Cannula Weight: 148.5 kg Body Mass Index (BMI) 45.1 Finger Stick Blood Glucose 128 Intake and Output for Last 24 Hours 0501/15/20 01/16/20 23:59 23:59 23:59 Intake Total 2700 / 2700 1390 / 1390 1120.75 / 1120.75 Output Total 250 / 250 1650 / 1650 650 / 650 Balance 2450 / 2450 -260 / -260 470.75 / 470.75 Microbiology Past 72 Hours 01/13/20 18:40 Sputum, Expectorated/Coughed Gram Stain - Final 01/13/20 18:40 Sputum, Expectorated/Coughed Respiratory Culture - Final 01/15/20 12:15 Stool Stool Occult Blood (BRANDON) - Final 01/09/20 07:45 Blood Culture (Wb) - Anticubital Left Blood Culture - Final No growth in 5 days. 01/09/20 07:45 Blood Culture (Wb) - Anticubital Right Blood Culture - Final No growth in 5 days. Laboratory Results 01/14/20 15:46: Crossmatch See Detail 01/15/20 17:45: Hgb 9.6 L, Hct 30.5 L 01/15/20 19:23: POC Glucose 85 01/15/20 23:16: POC Glucose 141 H 01/16/20 03:30: WBC 15.3 H, RBC 3.19 L, Hgb 9.1 L, Hct 29.6 L, MCV 92.8, MCH 28.5, MCHC 30.7 L, RDW Std Deviation 49.1 H, RDW Coeff of Clayton 14.5, Plt Count 483 H, MPV 9.5, Immature Gran % (Auto) 1.800 H, Neut % (Auto) 87.0 H, Lymph % (Auto) 5.0 L, Snyder % (Auto) 5.2, Eos % (Auto) 0.9, Baso % (Auto) 0.1, Absolute Neuts (auto) 13.3 H, Absolute Lymphs (auto) 0.77 L, Nucleated RBC % 0 01/16/20 03:30: Sodium 136, Potassium 4.1, Chloride 97 L, Carbon Dioxide 34.0 H, Anion Gap 5, BUN 48 H, Creatinine 1.44 H, Estim Creat Clear Calc 55.62, Est GFR (MDRD) Af Amer 64, Est GFR (MDRD) Non-Af 53 L, BUN/Creatinine Ratio 33.3 H, Glucose 136 H, Calcium 8.2 L, Total Bilirubin 0.50, AST 47 H, ALT 50, Alkaline Phosphatase 92, Total Protein 6.5, Albumin 1.6 L, Globulin 4.9 H, Albumin/Globulin Ratio 0.3 L 01/16/20 04:56: POC Glucose 134 H 01/16/20 10:57: POC Glucose 184 H 01/16/20 14:33: POC Glucose 187 H Current Medications Acetaminophen (Tylenol) 650 mg PO Q6H PRN PRN PRN Reason: Pain Score 1-3 /Temp>100.7 Last Admin: 01/12/20 20:32 Dose: 650 mg Documented by: Albuterol Sulfate (Ventolin Aerosols) 2.5 mg INHALATION Q2H PRN PRN PRN Reason: SOB &/OR WHEEZING Last Admin: 01/16/20 10:42 Dose: 2.5 mg Documented by: Amiodarone HCl (Cordarone) 200 mg PO DAILY [facility] Last Admin: 01/16/20 09:12 Dose: 200 mg Documented by: Atorvastatin Calcium (Lipitor) 80 mg PO QHS [facility] Last Admin: 01/15/20 21:00 Dose: 80 mg Documented by: Calcium Carbonate (Tums) 500 mg PO Q6H PRN PRN PRN Reason: INDIGESTION Last Admin: 01/13/20 18:16 Dose: 500 mg Documented by: Furosemide (Lasix) 40 mg IV X1 PRN PRN Reason: SOB/resp distress [facility] Last Admin: 01/16/20 09:12 Dose: 200 mg Documented by: Guaifenesin (Mucinex) 1,200 mg PO BID PRN PRN PRN Reason: COUGH Last Admin: 01/16/20 10:07 Dose: 1,200 mg Documented by: Sodium Chloride () 250 mls @ 15 mls/hr IV .[id number] PRN PRN Reason: Saline Flush Last Infusion: 01/16/20 14:40 Dose: 0 mls/hr Documented by: Sodium Chloride () 250 mls @ 15 mls/hr IV .[id number] PRN PRN Reason: Additional IVPB Infusion Piperacillin Sod/Tazobactam (Sod 3.375 gm/ Sodium Chloride) 50 mls @ 12.5 mls/hr IV Q8 [facility] Stop: 01/16/20 22:01 Last Admin: 01/16/20 14:32 Dose: 12.5 mls/hr Documented by: Insulin Human Lispro (Humalog Kwikpen (Bkc)) 0 unit SC [facility]; Protocol Last Admin: 01/16/20 11:34 Dose: 1 u Documented by: Lidocaine (Lidoderm Patch) 1 patch TOPICAL DAILY PRN PRN Reason: PAIN 1-06/16 Loratadine (Claritin) 5 mg PO DAILY [facility] Last Admin: 01/16/20 09:12 Dose: 5 mg Documented by: Losartan Potassium (Cozaar) 50 mg PO DAILY [facility] Last Admin: 01/13/20 09:17 Dose: 50 mg Documented by: Magnesium Oxide (Mag-Ox 400) 400 mg PO DAILY [facility] Last Admin: 01/16/20 09:12 Dose: 400 mg Documented by: Metoprolol Tartrate (Lopressor (Beta Chidi)) 100 mg PO BID [facility] Last Admin: 01/16/20 09:12 Dose: 100 mg Documented by: Morphine Sulfate () 2 - 4 mg IV Q4H PRN PRN PRN Reason: Pain Score 1-10/10 Last Admin: 01/13/20 05:16 Dose: 4 mg Documented by: Oxycodone HCl (Oxyir) 5 mg PO Q4H PRN PRN PRN Reason: Pain Score 4-5/10 Last Admin: 01/12/20 14:30 Dose: 5 mg Documented by: Pantoprazole Sodium (Protonix) 40 mg PO Q12 [facility] Sodium Chloride () 10 - 40 ml IV UD PRN PRN Reason: SALINE FLUSH Last Admin: 01/16/20 14:32 Dose: 10 ml Documented by: Temazepam (Restoril) 15 mg PO QHS PRN PRN Reason: INSOMNIA Assessment/Plan This patient was seen in conjunction with Qian Mckeon NP. I have independently interviewed and examined the patient and reviewed pertinent histo rical, laboratory, and other data. Please refer to her note for patient's presentation, findings, and recommendations. Patient was seen and examined. No acute events overnight. Admits to breathing a little better today. Denies any chest pain or dizziness or palpitations Remains in atrial flutter, rate controlled. Vitals were reviewed -stable Physical Exam: Gen: Morbidly obese, comfortable, not pale, not jaundiced, alert oriented x3, on 2 L of oxygen CVS:HS I +II, regular, no murmurs RESP: Diminished at lung bases GI: BS present and normal, nontender, no palpable organs EXT: Bilateral lower extremity edema, Cayden wrap Labs reviewed: ASSESSMENT: 1. Acute on chronic anemia 2. Acute on chronic combined respiratory failure status post extubation on 01/10 3. Severe sepsis secondary to pneumonia/UTI 4. ROBERT on CKD stage III 5. Hyperkalemia 6. NSTEMI 7. Type II DM 8. A flutter, rate controlled 9. Right intrarenal calculus, 5mm Meds reviewed Plan: We will continue to wean off oxygen Continue with CHF protocol Complete antibiotics Will continue PPI Will trend BMP in am Continue with PRN Inpatient E&M: 26404 Subs Hosp L2
[2020-01-16] MEDS: 0.9% Saline Lock 10 ML Syringe IV ×2 (14:32→19:50)
[2020-01-16 14:41] LABS: Bedside Glucose 187 mg/dL (70-110)
--- NOTE | 2020-01-16 14:44 | PN.RENAL_ITS ---
Patient Problems: Active and Suspected Problems (Last Reviewed 01/15/20 @ 15:[address] Olegario Qiu MD) Anemia (Acute) Subjective: no new complaints. on nasal cannula. munoz in. breathing is ok. slept ok. LE edema present - Physical Exam Vitals/I&O's: Vital Signs Temp Pulse Resp BP Pulse Ox 99.4 F H 105 H 24 H 144/88 H 94 01/16/20 12:00 01/16/20 12:00 01/16/20 12:00 01/16/20 12:00 01/16/20 12:00 Oxygen Flow Rate (L/min) 2 Oxygen Delivery Method Nasal Cannula Weight: 148.5 kg Body Mass Index (BMI) 45.1 Finger Stick Blood Glucose 128 Intake and Output for Last 24 Hours 01/14/20 01/15/20 01/16/20 23:59 23:59 23:59 Intake Total 2700 / 2700 1390 / 1390 1120.75 / 1120.75 Output Total 250 / 250 1650 / 1650 650 / 650 Balance 2450 / 2450 -260 / -260 470.75 / 470.75 General: Alert, Oriented x3, Cooperative HEENT: Atraumatic, PERRLA, EOMI, Normocephalic Neck: Supple, No JVD, Negative Carotid Bruits Lungs: Clear to auscultation, Normal air movement Cardiovascular: Regular rate, No murmurs Abdomen: Bowel Sounds Present, Soft, Non Tender Extremities: Capillary Refill Less than 3 Seconds, Edema Skin: No rashes, No breakdown Musculoskeletal: No Tenderness to Palpation of Joints or Extremities Neurological: Cranial nerves II-XII grossly intact Psych/Mental Status: Normal Affect, Appropriate Microbiology Past 72 Hours 01/13/20 18:40 Sputum, Expectorated/Coughed Gram Stain - Final 01/13/20 18:40 Sputum, Expectorated/Coughed Respiratory Culture - Final 01/15/20 12:15 Stool Stool Occult Blood (BRANDON) - Final 01/09/20 07:45 Blood Culture (Wb) - Anticubital Left Blood Culture - Final No growth in 5 days. 01/09/20 07:45 Blood Culture (Wb) - Anticubital Right Blood Culture - Final No growth in 5 days. Laboratory Results 01/14/20 15:46: Crossmatch See Detail 01/15/20 17:45: Hgb 9.6 L, Hct 30.5 L 01/15/20 19:23: POC Glucose 85 01/15/20 23:16: POC Glucose 141 H 01/16/20 03:30: WBC 15.3 H, RBC 3.19 L, Hgb 9.1 L, Hct 29.6 L, MCV 92.8, MCH 28.5, MCHC 30.7 L, RDW Std Deviation 49.1 H, RDW Coeff of Clayton 14.5, Plt Count 483 H, MPV 9.5, Immature Gran % (Auto) 1.800 H, Neut % (Auto) 87.0 H, Lymph % (Auto) 5.0 L, Walton % (Auto) 5.2, Eos % (Auto) 0.9, Baso % (Auto) 0.1, Absolute Neuts (auto) 13.3 H, Absolute Lymphs (auto) 0.77 L, Nucleated RBC % 0 01/16/20 03:30: Sodium 136, Potassium 4.1, Chloride 97 L, Carbon Dioxide 34.0 H, Anion Gap 5, BUN 48 H, Creatinine 1.44 H, Estim Creat Clear Calc 55.62, Est GFR (MDRD) Af Amer 64, Est GFR (MDRD) Non-Af 53 L, BUN/Creatinine Ratio 33.3 H, Glucose 136 H, Calcium 8.2 L, Total Bilirubin 0.50, AST 47 H, ALT 50, Alkaline Phosphatase 92, Total Protein 6.5, Albumin 1.6 L, Globulin 4.9 H, Albumin/Globulin Ratio 0.3 L 01/16/20 04:56: POC Glucose 134 H 01/16/20 10:57: POC Glucose 184 H 01/16/20 14:33: POC Glucose 187 H Current Medications Acetaminophen (Tylenol) 650 mg PO Q6H PRN PRN PRN Reason: Pain Score 1-3 /Temp>100.7 Last Admin: 01/12/20 20:32 Dose: 650 mg Documented by: Albuterol Sulfate (Ventolin Aerosols) 2.5 mg INHALATION Q2H PRN PRN PRN Reason: SOB &/OR WHEEZING Last Admin: 01/16/20 10:42 Dose: 2.5 mg Documented by: Amiodarone HCl (Cordarone) 200 mg PO DAILY [facility] Last Admin: 01/16/20 09:12 Dose: 200 mg Documented by: Atorvastatin Calcium (Lipitor) 80 mg PO QHS [facility] Last Admin: 01/15/20 21:00 Dose: 80 mg Documented by: Calcium Carbonate (Tums) 500 mg PO Q6H PRN PRN PRN Reason: INDIGESTION Last Admin: 01/13/20 18:16 Dose: 500 mg Documented by: Furosemide (Lasix) 40 mg IV X1 PRN PRN Reason: SOB/resp distress [facility]) [facility] Last Admin: 01/16/20 09:12 Dose: 200 mg Documented by: Guaifenesin (Mucinex) 1,200 mg PO BID PRN PRN PRN Reason: COUGH Last Admin: 01/16/20 10:07 Dose: 1,200 mg Documented by: Sodium Chloride () 250 mls @ 15 mls/hr IV .[id number] PRN PRN Reason: Saline Flush Last Infusion: 01/16/20 14:40 Dose: 0 mls/hr Documented by: Sodium Chloride () 250 mls @ 15 mls/hr IV .[id number] PRN PRN Reason: Additional IVPB Infusion Piperacillin Sod/Tazobactam (Sod 3.375 gm/ Sodium Chloride) 50 mls @ 12.5 mls/hr IV Q8 [facility] Stop: 01/16/20 22:01 Last Admin: 01/16/20 14:32 Dose: 12.5 mls/hr Documented by: Insulin Human Lispro (Humalog Kwikpen (Bkc)) 0 unit SC [facility]; Protocol Last Admin: 01/16/20 11:34 Dose: 1 u Documented by: Lidocaine (Lidoderm Patch) 1 patch TOPICAL DAILY PRN PRN Reason: PAIN -06/16 Loratadine (Claritin) 5 mg PO DAILY [facility] Last Admin: 01/16/20 09:12 Dose: 5 mg Documented by: Losartan Potassium (Cozaar) 50 mg PO DAILY [facility] Last Admin: 01/13/20 09:17 Dose: 50 mg Documented by: Magnesium Oxide (Mag-Ox 400) 400 mg PO DAILY [facility] Last Admin: 01/16/20 09:12 Dose: 400 mg Documented by: Metoprolol Tartrate (Lopressor (Beta Chidi)) 100 mg PO BID [facility] Last Admin: 01/16/20 09:12 Dose: 100 mg Documented by: Morphine Sulfate () 2 - 4 mg IV Q4H PRN PRN PRN Reason: Pain Score 1-1010 Last Admin: 01/13/20 05:16 Dose: 4 mg Documented by: Oxycodone HCl (Oxyir) 5 mg PO Q4H PRN PRN PRN Reason: Pain Score 4-5/10 Last Admin: 01/12/20 14:30 Dose: 5 mg Documented by: Pantoprazole Sodium (Protonix) 40 mg PO Q12 [facility] Sodium Chloride () 10 - 40 ml IV UD PRN PRN Reason: SALINE FLUSH Last Admin: 01/16/20 14:32 Dose: 10 ml Documented by: Temazepam (Restoril) 15 mg PO QHS PRN PRN Reason: INSOMNIA Medical Necessity - Tobacco Use Smoking Status: Never smoker Assessment/Plan All Active Problems (Last Reviewed 01/15/20 @ 15:[address] Olegario Qiu MD) Atrial flutter with rapid ventricular response (Acute) Anemia (Acute) Respiratory failure with hypoxia and hypercapnia (Acute) Atrial fibrillation with rapid ventricular response (Acute) S/P CABG x 4 (Acute) Acute exacerbation of CHF (congestive heart failure) (Resolved) ROBERT CKD 3 volume overload recent CABG clinically significantly better renal US shows non obstructive stone UA shows trace protein and blood, not very impressive isauro 99.4 F noted. munoz can come out still clinically overloaded. can resume lasix if ok with cardiology
[2020-01-16 16:45] LABS: Bedside Glucose 181 mg/dL (70-110)
--- NOTE | 2020-01-16 18:13 | PN.CARD_ITS ---
Subjectve: Patient seen and evaluated. Appears to be doing well. Breathing on his own Objective: Vital Signs Temp Pulse Resp BP Pulse Ox 98.1 F 83 20 H 110/59 L 99 01/16/20 15:33 01/16/20 15:33 01/16/20 15:33 01/16/20 15:33 01/16/20 15:33 Oxygen Flow Rate (L/min) 2 Oxygen Delivery Method Nasal Cannula Weight: 327 lb 6.183 oz Body Mass Index (BMI) 45.1 Finger Stick Blood Glucose 128 Intake and Output for Last 24 Hours 01/14/20 01/15/20 01/16/20 23:59 23:59 23:59 Intake Total 2700 / 2700 1390 / 1390 1120.75 / 1120.75 Output Total 250 / 250 1650 / 1650 650 / 650 Balance 2450 / 2450 -260 / -260 470.75 / 470.75 General: Awake, Alert, Oriented x 3 HEENT: PERRL, EOMI, Sclera Non Icteric Neck: Supple, Good ROM, No Lymph Node Enlargement Lungs: Diminished Sam Bases Cardiovascular: Regular Rhythm, Normal S1, Normal S2, No Murmurs, No Rubs, No Gallops Vascular: No Carotid Bruits, Normal Femoral Pulses, Normal Radial Pulses, Normal Dorsalis Pedal Pulse, Normal Posterior Tibial Pulses Abdomen: Bowel Sounds Present, Soft, Non Tender, No HSM, No Organomegaly Extremities: No Cyanosis, No Clubbing, Bilateral Edema +1 Musculoskeletal: No Erythema Skin: No Rashes Lymphatic: No Lymph Node Enlargement Neurological: No Focal Motor or Sensory Deficit Psych/Mental Status: Appropriate 01/16/20 03:30: WBC 15.3 H, RBC 3.19 L, Hgb 9.1 L, Hct 29.6 L, MCV 92.8, MCH 28.5, MCHC 30.7 L, Plt Count 483 H, MPV 9.5, Immature Gran % (Auto) 1.800 H, Neut % (Auto) 87.0 H, Lymph % (Auto) 5.0 L, [place] % (Auto) 5.2, Eos % (Auto) 0.9, Baso % (Auto) 0.1, Absolute Neuts (auto) 13.3 H, Nucleated RBC % 0 01/16/20 03:30: Sodium 136, Potassium 4.1, Chloride 97 L, Carbon Dioxide 34.0 H, Anion Gap 5, BUN 48 H, Creatinine 1.44 H, Est GFR (MDRD) Af Amer 64, Est GFR (MDRD) Non-Af 53 L, BUN/Creatinine Ratio 33.3 H, Glucose 136 H, Calcium 8.2 L, Total Bilirubin 0.50 Rhythm: EKG: ECHO: Stress Test: Cardiac Cath: PCI: CT Surgery: Holter monitor: EPS: PPM: CXR: Chest CT Scan: Medical Necessity - Tobacco Use Smoking Status: Never smoker Assessment/Plan 1. Acute decompensated heart failure * He presented within 72 hours post discharge with a decompensation of his heart failure. The above appears to be diastolic in nature. The exact precipitating etiology is not entirely clear to me at this time. It appears that he had a similar event in hospital which may have been worsened by his anemia * Would recommend resuming Lasix now at 40 mg twice a day. His renal function appears to have improved. Also concur with renal inputs. * Previous echocardiogram was reviewed, and a repeat echocardiogram demonstrated preserved ejection fraction. * It does not appear that patient has had an acute ST elevation myocardial infarction but continued coronary ischemia cannot be completely excluded * Would resume beta-ronen * Will continue fluid restriction. 2. Hypertension * His blood pressure is under good control and no changes were made with respect to the above * 3. Atrial fibrillation * His ventricular response rate is uncontrolled at this particular time. * We will continue with the amiodarone * I would suggest increasing the metoprolol to 100 twice daily but would hold off giving this until later this evening when his blood pressure has stabilized * He appears to have developed a severe anemia. This will be presumed to be from a GI bleed. I would therefore recommend that we hold the Eliquis at this particular time. * 4. Coronary artery disease * He has known coronary artery disease status post recent coronary artery bypass surgery. His bypass anatomy was recently evaluated. He does have a tenuous saphenous vein graft to the right coronary artery but it appears the distal vessel is small and intervention is not being contemplated based on his cardiac catheterization from 2 week ago. Will recommend aggressive medical therapy. * DisContinue nitrates for now * 5. Hyperlipidemia * Patient will continue with lipid-lowering risk factor modification * 6. Anemia * The etiology of the above is likely secondary to a GI pathology. * Would recommend holding Eliquis at this particular time. * Surgeons notes seen. No EGD or colonoscopy at this particular time. * Overall currently stable.
[2020-01-16] MEDS: Furosemide 40 MG/4 ML Vial IV (19:50)
[2020-01-16] MEDS: Atorvastatin Calcium 80 MG Tablet PO (21:56)
[2020-01-16] MEDS: Pantoprazole Sodium 40 MG Tablet PO (21:57)
[2020-01-16 22:05] LABS: Bedside Glucose 202 mg/dL (70-110)
[2020-01-17] VITALS (15 sets, daily range): BP systolic 125–153; BP diastolic 54–98; PULSE 65–96; RESP 12–32; TEMP 36.5–37.2; O2SAT 92–100
[2020-01-17] MEDS: Insulin Lispro 100 UNIT/ML INSULN.PEN SC ×4 (06:54→21:14)
[2020-01-17 08:28] LABS: Absolute Neutrophil Count 7.2 X10^3/uL (2.0-7.7); Basophil# 0.02 X10^3/uL; Basophil% 0.2 % (0-1); Eosinophil# 0.11 X10^3/uL; Eosinophils% 1.2 % (0-5); Hemoglobin 10.2 g/dL (13.0-16.5); Lymphocyte % 6.8 % (19-41); Mean Corp Hgb Conc 30.9 g/dL (32-36); Mean Corpuscular Hgb 28.5 pg (27.0-32.0); Mean Corpuscular Volume 92.2 fL (80-94); Mean Platelet Vol. 9.7 fl (6.2-12.0); Monocyte# 0.86 X10^3/uL; Monocyte% 9.7 % (0-10); NRBC Flagged by Analyzer 0 % (0-5); Neutrophil # 7.19 X10^3/uL (2.7-7.7); Neutrophil % 81.5 % (47-70); POSITIVE DIFFERENTIAL YES; Platelet Count 489 K/mm3 (150-450); RBC Distribution Width CV 14.6 % (11.6-14.6); RBC Distribution Width SD 48.9 fl (35.1-43.9); Red Blood Count 3.58 M/mm3 (4.6-6.2); White Blood Count 8.8 K/mm3 (4.4-11.0)
[2020-01-17 08:29] LABS: Differential Indicated SCAN CRITERIA MET
[2020-01-17 08:56] LABS: Hypochromasia 1+; Platelet Estimate ADEQUATE (ADEQ)
[2020-01-17] MEDS: Amiodarone 200 MG Tablet PO (08:56)
[2020-01-17] MEDS: Gabapentin 100 MG Capsule 200 MG PO (08:56)
[2020-01-17] MEDS: guaiFENesin 1,200 MG Tablet 1200 MG PO ×2 (08:56→21:13)
[2020-01-17] MEDS: Magnesium Oxide 400 MG Tablet PO (08:57)
[2020-01-17] MEDS: Metoprolol Tartrate 100 MG Tablet PO ×2 (08:57→21:12)
[2020-01-17] MEDS: Loratadine 10 MG Tablet 5 MG PO (08:57)
[2020-01-17] MEDS: Losartan Potassium 50 MG Tablet PO (08:57)
[2020-01-17] MEDS: Furosemide 40 MG Tablet PO ×2 (08:59→17:07)
[2020-01-17] MEDS: Pantoprazole Sodium 40 MG Tablet PO ×2 (08:59→21:13)
--- NOTE | 2020-01-17 09:31 | PN.SURG_ITS ---
Patient Problems: Active and Suspected Problems (Last Reviewed 01/15/20 @ 15:[address] Olegario Qiu MD) Anemia (Acute) Subjective: No bleeding identified patient states stools are brown. Objective: No physical exam today. - Physical Exam Vitals/I&O's: Vital Signs Temp Pulse Resp BP Pulse Ox 98.7 F 96 22 H 137/54 H 94 01/17/20 09:00 01/17/20 09:00 01/17/20 09:00 01/17/20 09:00 01/17/20 09:00 Oxygen Flow Rate (L/min) 2 Oxygen Delivery Method Nasal Cannula Weight: 321 lb 3.416 oz Body Mass Index (BMI) 45.1 Finger Stick Blood Glucose 128 Intake and Output for Last 24 Hours 01/15/20 01/16/20 01/17/20 23:59 23:59 23:59 Intake Total 1390 / 1390 1542.00 / 1542.00 260 / 260 Output Total 1650 / 1650 975 / 975 Balance -260 / -260 567.00 / 567.00 260 / 260 Microbiology Past 72 Hours 01/13/20 18:40 Sputum, Expectorated/Coughed Gram Stain - Final 01/13/20 18:40 Sputum, Expectorated/Coughed Respiratory Culture - Final 01/15/20 12:15 Stool Stool Occult Blood (BRANDON) - Final 01/09/20 07:45 Blood Culture (Wb) - Anticubital Left Blood Culture - Final No growth in 5 days. 01/09/20 07:45 Blood Culture (Wb) - Anticubital Right Blood Culture - Final No growth in 5 days. Laboratory Results 01/14/20 15:46: Crossmatch See Detail 01/16/20 10:57: POC Glucose 184 H 01/16/20 14:33: POC Glucose 187 H 01/16/20 16:26: POC Glucose 181 H 01/16/20 21:50: POC Glucose 202 H 01/17/20 08:17: WBC 8.8, RBC 3.58 L, Hgb 10.2 L, Hct 33.0 L, MCV 92.2, MCH 28.5, MCHC 30.9 L, RDW Std Deviation 48.9 H, RDW Coeff of [place] 14.6, Plt Count 489 H, MPV 9.7, Immature Gran % (Auto) 0.600, Neut % (Auto) 81.5 H, Lymph % (Auto) 6.8 L, [place] % (Auto) 9.7, Eos % (Auto) 1.2, Baso % (Auto) 0.2, Absolute Neuts (auto) 7.2, Absolute Lymphs (auto) 0.60 L, Nucleated RBC % 0, Platelet Estimate ADEQUATE, Hypochromasia 1+ 01/17/20 08:17: Sodium Pending, Potassium Pending, Chloride Pending, Carbon Dioxide Pending, Anion Gap Pending, BUN Pending, Creatinine Pending, Est GFR (MDRD) Af Amer Pending, Est GFR (MDRD) Non-Af Pending, BUN/Creatinine Ratio Pending, Glucose Pending, Calcium Pending, Total Bilirubin Pending, AST Pending, ALT Pending, Alkaline Phosphatase Pending, Total Protein Pending, Albumin Pending Current Medications Acetaminophen (Tylenol) 650 mg PO Q6H PRN PRN PRN Reason: Pain Score 1-3 /Temp>100.7 Last Admin: 01/12/20 20:32 Dose: 650 mg Documented by: Albuterol Sulfate (Ventolin Aerosols) 2.5 mg INHALATION Q2H PRN PRN PRN Reason: SOB &/OR WHEEZING Last Admin: 01/16/20 21:05 Dose: 2.5 mg Documented by: Amiodarone HCl (Cordarone) 200 mg PO DAILY [facility] Last Admin: 01/17/20 08:56 Dose: 200 mg Documented by: Atorvastatin Calcium (Lipitor) 80 mg PO QHS [facility] Last Admin: 01/16/20 21:56 Dose: 80 mg Documented by: Calcium Carbonate (Tums) 500 mg PO Q6H PRN PRN PRN Reason: INDIGESTION Last Admin: 01/13/20 18:16 Dose: 500 mg Documented by: Furosemide (Lasix) 40 mg PO BID@1000,1800 [facility] Last Admin: 01/17/20 08:59 Dose: 40 mg Documented by: [facility] Last Admin: 01/17/20 08:56 Dose: 200 mg Documented by: Guaifenesin (Mucinex) 1,200 mg PO BID PRN PRN PRN Reason: COUGH Last Admin: 05/12/20 08:56 Dose: 1,200 mg Documented by: Sodium Chloride () 250 mls @ 15 mls/hr IV .[id number] PRN PRN Reason: Saline Flush Last Infusion: 01/17/20 01:57 Dose: 15 mls/hr Documented by: Sodium Chloride () 250 mls @ 15 mls/hr IV .[id number] PRN PRN Reason: Additional IVPB Infusion Insulin Human Lispro (Humalog Kwikpen (Bkc)) 0 unit SC ACHS [facility]; Protocol Last Admin: 01/17/20 06:54 Dose: 1 u Documented by: Lidocaine (Lidoderm Patch) 1 patch TOPICAL DAILY PRN PRN Reason: PAIN 1-1010 Loratadine (Claritin) 5 mg PO DAILY [facility] Last Admin: 01/17/20 08:57 Dose: 5 mg Documented by: Losartan Potassium (Cozaar) 50 mg PO DAILY [facility] Last Admin: 01/17/20 08:57 Dose: 50 mg Documented by: Magnesium Oxide (Mag-Ox 400) 400 mg PO DAILY [facility] Last Admin: 01/17/20 08:57 Dose: 400 mg Documented by: Metoprolol Tartrate (Lopressor (Beta Chidi)) 100 mg PO BID [facility] Last Admin: 01/17/20 08:57 Dose: 100 mg Documented by: Morphine Sulfate () 2 - 4 mg IV Q4H PRN PRN PRN Reason: Pain Score 1-10/10 Last Admin: 01/13/20 05:16 Dose: 4 mg Documented by: Oxycodone HCl (Oxyir) 5 mg PO Q4H PRN PRN PRN Reason: Pain Score 4-5/10 Last Admin: 01/12/20 14:30 Dose: 5 mg Documented by: Pantoprazole Sodium (Protonix) 40 mg PO Q12 [facility] Last Admin: 01/17/20 08:59 Dose: 40 mg Documented by: Sodium Chloride () 10 - 40 ml IV UD PRN PRN Reason: SALINE FLUSH Last Admin: 01/16/20 19:50 Dose: 20 ml Documented by: Temazepam (Restoril) 15 mg PO QHS PRN PRN Reason: INSOMNIA Medical Necessity - Tobacco Use Smoking Status: Never smoker Assessment/Plan All Active Problems (Last Reviewed 01/15/20 @ 15:[address] Olegario Qiu MD) Atrial flutter with rapid ventricular response (Acute) Anemia (Acute) Respiratory failure with hypoxia and hypercapnia (Acute) Atrial fibrillation with rapid ventricular response (Acute) S/P CABG x 4 (Acute) Acute exacerbation of CHF (congestive heart failure) (Resolved) We will see the patient in our patient setting and schedule him for colonoscopy and upper scope at that time. We will sign off now.
[2020-01-17 09:50] LABS: ALB/GLOB Ratio 0.2 RATIO (0.9-2.4); AST(SGOT) 60 U/L (15-37); Alanine Aminotransfer ALT/SGPT 60 U/L (16-61); Albumin, Serum 1.3 g/dL (3.2-5.0); Alkaline Phosphatase 96 U/L (45-117); Anion Gap 4 (5-15); BUN 33 mg/dL (7-18); BUN/Creat Ratio 28.2 RATIO (10-20); Calcium,Total 8.6 mg/dL (8.5-10.1); Chloride 99 mmol/L (98-107); Creatinine, Serum 1.17 mg/dL (0.70-1.30); EST Glomerular Filtration Rate 67 mL/min (>60); Est Glom Filt Rate - Afr Amer 81 mL/min (>60); Estimated Creatinine Clearance 68.46 ml/min; Globulin 5.8 g/dL (2.2-4.2); Glucose 186 mg/dL (74-106); Potassium 3.6 mmol/L (3.5-5.1); Protein, Total 7.1 g/dL (6.4-8.2); Sodium Level 137 mmol/L (136-145)
--- NOTE | 2020-01-17 09:54 | PN_ITS ---
Patient Problems: Active and Suspected Problems (Last Reviewed 01/15/20 @ 15:[address] Olegario Qiu MD) Anemia (Acute) Subjective: Patient did well overnight. Patient reports no subjective change in overall condition. Still requiring minimal nasal cannula oxygen at rest. Patient did use BiPAP overnight. - Physical Exam Vitals/I&O's: Vital Signs Temp Pulse Resp BP Pulse Ox 37.1 C 96 22 H 137/54 H 94 01/17/20 09:00 01/17/20 09:00 01/17/20 09:00 01/17/20 09:00 01/17/20 09:00 Oxygen Flow Rate (L/min) 2 Oxygen Delivery Method Nasal Cannula Weight: 145.7 kg Body Mass Index (BMI) 45.1 Finger Stick Blood Glucose 128 Intake and Output for Last 24 Hours 01/15/20 01/16/20 01/17/20 23:59 23:59 23:59 Intake Total 1390 / 1390 1542.00 / 1542.00 260 / 260 Output Total 1650 / 1650 975 / 975 Balance -260 / -260 567.00 / 567.00 260 / 260 General: Alert, Oriented x3, Cooperative, No apparent distress, - - Morbidly obese. Speaking in full sentences. HEENT: Atraumatic, PERRLA, EOMI, Normocephalic, - - No scleral icterus or injection noted Oral: Moist Mucosa, No Gingival or Mucosal Lesions/ Ulcerations Neck: Supple, No JVD, No Nodes, Trachea Midline Lungs: No rhonchi, No wheeze, No rales, Diminished, - - Symmetric expansion Cardiovascular: Regular rate, Regular Rhythm, Normal S1, Normal S2, No murmurs, No rub noted, No Gallop Abdomen: Bowel Sounds Present, Soft, Non Tender, Non-Distended, Obese Extremities: No clubbing, No cyanosis, Edema - Trace Skin: - - No change compared to previous Musculoskeletal: No Tenderness to Palpation of Joints or Extremities Lymphatic: No Cervical, Supraclavicular, or Inguinal Adenopathy Neurological: Cranial nerves II-XII grossly intact, Neuro grossly intact, Motor Exam 5/5 strength throughout Psych/Mental Status: Alert and oriented to time, place, person, mood and affect Microbiology Past 72 Hours 01/13/20 18:40 Sputum, Expectorated/Coughed Gram Stain - Final 01/13/20 18:40 Sputum, Expectorated/Coughed Respiratory Culture - Final 01/15/20 12:15 Stool Stool Occult Blood (BRANDON) - Final 01/09/20 07:45 Blood Culture (Wb) - Anticubital Left Blood Culture - Final No growth in 5 days. 01/09/20 07:45 Blood Culture (Wb) - Anticubital Right Blood Culture - Final No growth in 5 days. Laboratory Results 01/14/20 15:46: Crossmatch See Detail 01/16/20 10:57: POC Glucose 184 H 01/16/20 14:33: POC Glucose 187 H 01/16/20 16:26: POC Glucose 181 H 01/16/20 21:50: POC Glucose 202 H 01/17/20 08:17: WBC 8.8, RBC 3.58 L, Hgb 10.2 L, Hct 33.0 L, MCV 92.2, MCH 28.5, MCHC 30.9 L, RDW Std Deviation 48.9 H, RDW Coeff of [place] 14.6, Plt Count 489 H, MPV 9.7, Immature Gran % (Auto) 0.600, Neut % (Auto) 81.5 H, Lymph % (Auto) 6.8 L, [place] % (Auto) 9.7, Eos % (Auto) 1.2, Baso % (Auto) 0.2, Absolute Neuts (auto) 7.2, Absolute Lymphs (auto) 0.60 L, Nucleated RBC % 0, Platelet Estimate ADEQUATE, Hypochromasia 1+ 01/17/20 08:17: Sodium 137, Potassium 3.6, Chloride 99, Carbon Dioxide 34.0 H, Anion Gap 4 L, BUN 33 H, Creatinine 1.17, Estim Creat Clear Calc 68.46, Est GFR (MDRD) Af Amer 81, Est GFR (MDRD) Non-Af 67, BUN/Creatinine Ratio 28.2 H, Glucose 186 H, Calcium 8.6, Total Bilirubin 0.50, AST 60 H, ALT 60, Alkaline Phosphatase 96, Total Protein 7.1, Albumin 1.3 L, Globulin 5.8 H, Albumin/Globulin Ratio 0.2 L Current Medications Acetaminophen (Tylenol) 650 mg PO Q6H PRN PRN PRN Reason: Pain Score 1-3 /Temp>100.7 Last Admin: 01/12/20 20:32 Dose: 650 mg Documented by: Albuterol Sulfate (Ventolin Aerosols) 2.5 mg INHALATION Q2H PRN PRN PRN Reason: SOB &/OR WHEEZING Last Admin: 01/16/20 21:05 Dose: 2.5 mg Documented by: Amiodarone HCl (Cordarone) 200 mg PO DAILY [facility] Last Admin: 01/17/20 08:56 Dose: 200 mg Documented by: Atorvastatin Calcium (Lipitor) 80 mg PO QHS [facility] Last Admin: 01/16/20 21:56 Dose: 80 mg Documented by: Calcium Carbonate (Tums) 500 mg PO Q6H PRN PRN PRN Reason: INDIGESTION Last Admin: 01/13/20 18:16 Dose: 500 mg Documented by: Furosemide (Lasix) 40 mg PO BID@1000,1800 [facility] Last Admin: 01/17/20 08:59 Dose: 40 mg Documented by: [facility] Last Admin: 01/17/20 08:56 Dose: 200 mg Documented by: Guaifenesin (Mucinex) 1,200 mg PO BID PRN PRN PRN Reason: COUGH Last Admin: 01/17/20 08:56 Dose: 1,200 mg Documented by: Sodium Chloride () 250 mls @ 15 mls/hr IV .[id number] PRN PRN Reason: Saline Flush Last Infusion: 01/17/20 01:57 Dose: 15 mls/hr Documented by: Sodium Chloride () 250 mls @ 15 mls/hr IV .[id number] PRN PRN Reason: Additional IVPB Infusion Insulin Human Lispro (Humalog Kwikpen (Bkc)) 0 unit SC ACHS [facility]; Protocol Last Admin: 01/17/20 06:54 Dose: 1 u Documented by: Lidocaine (Lidoderm Patch) 1 patch TOPICAL DAILY PRN PRN Reason: PAIN 1-10 Loratadine (Claritin) 5 mg PO DAILY [facility] Last Admin: 01/17/20 08:57 Dose: 5 mg Documented by: Losartan Potassium (Cozaar) 50 mg PO DAILY [facility] Last Admin: 01/17/20 08:57 Dose: 50 mg Documented by: Magnesium Oxide (Mag-Ox 400) 400 mg PO DAILY [facility] Last Admin: 01/17/20 08:57 Dose: 400 mg Documented by: Metoprolol Tartrate (Lopressor (Beta Chidi)) 100 mg PO BID [facility] Last Admin: 01/17/20 08:57 Dose: 100 mg Documented by: Morphine Sulfate () 2 - 4 mg IV Q4H PRN PRN PRN Reason: Pain Score 1-10/10 Last Admin: 01/13/20 05:16 Dose: 4 mg Documented by: Oxycodone HCl (Oxyir) 5 mg PO Q4H PRN PRN PRN Reason: Pain Score 4-5/10 Last Admin: 01/12/20 14:30 Dose: 5 mg Documented by: Pantoprazole Sodium (Protonix) 40 mg PO Q12 [facility] Last Admin: 01/17/20 08:59 Dose: 40 mg Documented by: Sodium Chloride () 10 - 40 ml IV UD PRN PRN Reason: SALINE FLUSH Last Admin: 01/16/20 19:50 Dose: 20 ml Documented by: Temazepam (Restoril) 15 mg PO QHS PRN PRN Reason: INSOMNIA Medical Necessity - Tobacco Use Smoking Status: Never smoker Assessment/Plan All Active Problems (Last Reviewed 01/15/20 @ 15:[address] Olegario Qiu MD) Atrial flutter with rapid ventricular response (Acute) Anemia (Acute) Respiratory failure with hypoxia and hypercapnia (Acute) Atrial fibrillation with rapid ventricular response (Acute) S/P CABG x 4 (Acute) Acute exacerbation of CHF (congestive heart failure) (Resolved) RECOMMENDATIONS: 1. Pleated antibiotic course 2. Continue twice daily PPI therapy. 3. Okay to resume Eliquis, diuretics and beta-chidi therapy from my perspective 4. Monitor blood counts daily and transfuse if hemoglobin drops below 7 g/dL. 5. Walking oximetry prior to discharge 6. Continue empiric BiPAP therapy nightly. Plan for outpatient polysomnogram later this month. 7. Wean supplemental oxygen to maintain saturations at or above 90%. 8. Encourage incentive spirometer use and mobilize patient as tolerated. IMPRESSIONS: 1. Acute combined respiratory failure The patient was initially admitted to the ICU with respiratory failure of unclear precipitating etiology. However, it was felt to be mostly secondary to a state of CHF exacerbation, as opposed to a pulmonary infectious etiology. The patient was able to be weaned from invasive mechanical ventilatory support on January 10. He was maintained on empiric antimicrobials along with scheduled diuretics and transferred out of the ICU on the . He then developed increased work of breathing and anemia, which prompted his transfer back to the ICU on January 13. He remained stable from a respiratory perspective on nasal cannula supplemental oxygen and empiric BiPAP therapy nightly, over concerns for obstructive sleep apnea. We will plan to wean supplemental oxygen to maintain saturations at or above 90%. Encourage incentive spirometer use and mobilize patient as tolerated. 2. Acute decompensated heart failure/troponin elevation Cardiology is currently following. Continue current medical management. Likely okay to reinitiate patient's Eliquis from my perspective. Defer to surgery. Diuretics and beta-chidi can be reinitiated in a stepwise fashion. Renal function continues to improve. 3. Anemia The patient presented to the hospital on January 03 with a hemoglobin of 10.9. There has been a slow downward decline in his blood counts over the course of the hospitalization with a rebekah hemoglobin of 7.2 g/dL on January 13. The patient has received a total of 3 units of packed red blood cells. Hemoglobin has improved to 10.2 this morning. The patient remains on twice daily PPI therapy. If okay with surgery, would recommend transfer from the intensive care unit there are no overt signs of active blood loss at this time. 4. Severe sepsis Resolved. Appeared to be either secondary to a urinary tract source of infection or underlying healthcare associated pneumonia. The patient is on appropriate antimicrobials at this time. The patient was initially completing a treatment course of Levaquin due to Klebsiella isolated from his urine culture. Patient can likely be taken off of antibiotics from my perspective. 5. Thrombocytosis Unclear etiology. Platelet count appears to have been increasing since the end of December. Possible consumptive process versus sequestration. Will monitor clinically. If indicated, consultation will be obtained from hematol goyo. 6. Probable obstructive sleep apnea The patient would be considered high risk for underlying sleep disordered breathing. I would recommend an outpatient polysomnogram be completed upon discharge from the hospital. He is currently scheduled to undergo a diagnostic polysomnogram on January 25. 7. Morbid obesity/hypertension/hyperlipidemia/diabetes mellitus Complicates care, management, recovery and prognosis. Continue basal and sliding scale insulin coverage. Inpatient E&M: 36715 Subs Hosp L2
[2020-01-17 11:26] LABS: Bedside Glucose 175 mg/dL (70-110)
--- NOTE | 2020-01-17 11:47 | PCM.PROGNOTE ---
<Qian Mckeon - Last Filed: 01/17/20 12:02> Patient Problems: Active and Suspected Problems (Last Reviewed 01/15/20 @ 15:[address] Olegario Qiu MD) Anemia (Acute) Subjective: Patient seen and examined. Feels improved. Denies significant shortness of breath. Denies chest pain. - Physical Exam Vitals/I&O's: Vital Signs Temp Pulse Resp BP Pulse Ox 98.7 F 96 22 H 137/54 H 94 01/17/20 09:00 01/17/20 09:00 01/17/20 09:00 01/17/20 09:00 01/17/20 09:00 Oxygen Flow Rate (L/min) 2 Oxygen Delivery Method Nasal Cannula Weight: 321 lb 3.416 oz Body Mass Index (BMI) 45.1 Finger Stick Blood Glucose 128 Intake and Output for Last 24 Hours 01/15/20 01/16/20 01/17/20 23:59 23:59 23:59 Intake Total 1390 / 1390 1542.00 / 1542.00 260 / 260 Output Total 1650 / 1650 975 / 975 Balance -260 / -260 567.00 / 567.00 260 / 260 General: Alert, Oriented x3, Cooperative HEENT: Atraumatic, PERRLA, EOMI, Normocephalic Neck: Supple, No JVD, Negative Carotid Bruits Lungs: Clear to auscultation, Diminished Cardiovascular: - - Atrial fibrillation, rate controlled Abdomen: Bowel Sounds Present, Soft, Non Tender, Non-Distended, Obese Extremities: No clubbing, No cyanosis, Edema - Bilateral lower extremities, improved Skin: No rashes, No breakdown Musculoskeletal: No Tenderness to Palpation of Joints or Extremities Neurological: Cranial nerves II-XII grossly intact, Neuro grossly intact Psych/Mental Status: Normal Affect, Appropriate Microbiology Past 72 Hours 01/13/20 18:40 Sputum, Expectorated/Coughed Gram Stain - Final 01/13/20 18:40 Sputum, Expectorated/Coughed Respiratory Culture - Final 01/15/20 12:15 Stool Stool Occult Blood (BRANDON) - Final 01/09/20 07:45 Blood Culture (Wb) - Anticubital Left Blood Culture - Final No growth in 5 days. 01/09/20 07:45 Blood Culture (Wb) - Anticubital Right Blood Culture - Final No growth in 5 days. Laboratory Results 01/16/20 14:33: POC Glucose 187 H 01/16/20 16:26: POC Glucose 181 H 01/16/20 21:50: POC Glucose 202 H 01/17/20 06:52: POC Glucose 175 H 01/17/20 08:17: WBC 8.8, RBC 3.58 L, Hgb 10.2 L, Hct 33.0 L, MCV 92.2, MCH 28.5, MCHC 30.9 L, RDW Std Deviation 48.9 H, RDW Coeff of [place] 14.6, Plt Count 489 H, MPV 9.7, Immature Gran % (Auto) 0.600, Neut % (Auto) 81.5 H, Lymph % (Auto) 6.8 L, Lawrence % (Auto) 9.7, Eos % (Auto) 1.2, Baso % (Auto) 0.2, Absolute Neuts (auto) 7.2, Absolute Lymphs (auto) 0.60 L, Nucleated RBC % 0, Platelet Estimate ADEQUATE, Hypochromasia 1+ 01/17/20 08:17: Sodium 137, Potassium 3.6, Chloride 99, Carbon Dioxide 34.0 H, Anion Gap 4 L, BUN 33 H, Creatinine 1.17, Estim Creat Clear Calc 68.46, Est GFR (MDRD) Af Amer 81, Est GFR (MDRD) Non-Af 67, BUN/Creatinine Ratio 28.2 H, Glucose 186 H, Calcium 8.6, Total Bilirubin 0.50, AST 60 H, ALT 60, Alkaline Phosphatase 96, Total Protein 7.1, Albumin 1.3 L, Globulin 5.8 H, Albumin/Globulin Ratio 0.2 L Current Medications Acetaminophen (Tylenol) 650 mg PO Q6H PRN PRN PRN Reason: Pain Score 1-3 /Temp>100.7 Last Admin: 01/12/20 20:32 Dose: 650 mg Documented by: Albuterol Sulfate (Ventolin Aerosols) 2.5 mg INHALATION Q2H PRN PRN PRN Reason: SOB &/OR WHEEZING Last Admin: 01/16/20 21:05 Dose: 2.5 mg Documented by: Amiodarone HCl (Cordarone) 200 mg PO DAILY [facility] Last Admin: 01/17/20 08:56 Dose: 200 mg Documented by: Atorvastatin Calcium (Lipitor) 80 mg PO QHS COUNTS INCLUDE 234 BEDS AT [facility] Last Admin: 01/16/20 21:56 Dose: 80 mg Documented by: Calcium Carbonate (Tums) 500 mg PO Q6H PRN PRN PRN Reason: INDIGESTION Last Admin: 01/13/20 18:16 Dose: 500 mg Documented by: Furosemide (Lasix) 40 mg PO BID@1000,1800 COUNTS INCLUDE 234 BEDS AT [facility] Last Admin: 01/17/20 08:59 Dose: 40 mg Documented by: [facility] Last Admin: 01/17/20 08:56 Dose: 200 mg Documented by: Guaifenesin (Mucinex) 1,200 mg PO BID PRN PRN PRN Reason: COUGH Last Admin: 01/17/20 08:56 Dose: 1,200 mg Documented by: Sodium Chloride () 250 mls @ 15 mls/hr IV .[id number] PRN PRN Reason: Saline Flush Last Infusion: 01/17/20 01:57 Dose: 15 mls/hr Documented by: Sodium Chloride () 250 mls @ 15 mls/hr IV .[id number] PRN PRN Reason: Additional IVPB Infusion Insulin Human Lispro (Humalog Kwikpen (Bkc)) 0 unit SC [facility]; Protocol Last Admin: 01/17/20 06:54 Dose: 1 u Documented by: Lidocaine (Lidoderm Patch) 1 patch TOPICAL DAILY PRN PRN Reason: PAIN 1-10/10 Loratadine (Claritin) 5 mg PO DAILY COUNTS INCLUDE 234 BEDS AT [facility] Last Admin: 01/17/20 08:57 Dose: 5 mg Documented by: Losartan Potassium (Cozaar) 50 mg PO DAILY COUNTS INCLUDE 234 BEDS AT [facility] Last Admin: 01/17/20 08:57 Dose: 50 mg Documented by: Magnesium Oxide (Mag-Ox 400) 400 mg PO DAILY COUNTS INCLUDE 234 BEDS AT [facility] Last Admin: 01/17/20 08:57 Dose: 400 mg Documented by: Metoprolol Tartrate (Lopressor (Beta Chidi)) 100 mg PO BID COUNTS INCLUDE 234 BEDS AT [facility] Last Admin: 01/17/20 08:57 Dose: 100 mg Documented by: Morphine Sulfate () 2 - 4 mg IV Q4H PRN PRN PRN Reason: Pain Score 1-10/10 Last Admin: 01/13/20 05:16 Dose: 4 mg Documented by: Oxycodone HCl (Oxyir) 5 mg PO Q4H PRN PRN PRN Reason: Pain Score 4-5/10 Last Admin: 01/12/20 14:30 Dose: 5 mg Documented by: Pantoprazole Sodium (Protonix) 40 mg PO Q12 [facility] Last Admin: 01/17/20 08:59 Dose: 40 mg Documented by: Sodium Chloride () 10 - 40 ml IV UD PRN PRN Reason: SALINE FLUSH Last Admin: 01/16/20 19:50 Dose: 20 ml Documented by: Temazepam (Restoril) 15 mg PO QHS PRN PRN Reason: INSOMNIA Medical Necessity - Tobacco Use Smoking Status: Never smoker Assessment/Plan All Active Problems (Last Reviewed 01/15/20 @ 15:[address] Olegario Qiu MD) Atrial flutter with rapid ventricular response (Acute) Anemia (Acute) Respiratory failure with hypoxia and hypercapnia (Acute) Atrial fibrillation with rapid ventricular response (Acute) S/P CABG x 4 (Acute) Acute exacerbation of CHF (congestive heart failure) (Resolved) 1. Acute combined hypoxic and hypercapnic respiratory failure secondary to acute on chronic CHF with preserved ejection fraction and suspected healthcare associated pneumonia-cardiology and pulmonary medicine following. Echocardiogram demonstrates an EF of 65%. Chest CT without PE or aortic dissection. Bilateral pleural effusions. BNP greater than 600. Patient with initial fever and leukocytosis which has improved. Patient extubated 01/11/2020. Patient developed increased shortness of breath 01/14/2020 and was transferred to intensive care unit. Patient now improved and transitioned back to progressive care unit. Further antibiotics discontinued. Resume Lasix 40 mg p.o. twice daily. Strict I&O. Daily weight. Cayden wraps to lower extremities. Amatory pulse ox prior to discharge. Patient has upcoming sleep study scheduled for 01/26/2020. 2. Acute on chronic macrocytic anemia, suspect GI bleed with associated hypotension-stool for occult blood negative. Status post 3 units PRBC for hemoglobin 7.2. Hemoglobin now stable. Trend CBC. Continue twice daily PPI. Will resume aspirin, Eliquis today and monitor CBC. Dr. Qiu consulted. Given hemoglobin stable, plan for outpatient evaluation for scopes. Hypotension resolved. 3. Severe sepsis secondary to Klebsiella UTI and suspected healthcare associated pneumonia-Blood culture showed no growth. Patient remains afebrile. Discontinue antibiotics following 7-day course. 4. Acute kidney injury-Nephrology consulted. Renal ultrasound demonstrates 5 mm nonobstructive left intrarenal calculus. FENa 0.1% suggesting prerenal. Creatinine now normal. Lasix resumed. Spoke with Dr. Loja regarding renal calculus, plan for outpatient follow-up. Trend BMP. 5. Recent new onset atrial fibrillation with RVR-Continue amiodarone, metoprolol, Eliquis. 6. NSTEMI/CAD-recent CABG in November 2019 at [facility] due to triple vessel disease. On aspirin, metoprolol, statin, losartan. Cardiology following. 7. Thrombocytosis-unclear etiology. Trend CBC. Recommend outpatient follow-up with hematology. 8. Constipation-KUB demonstrates nonspecific bowel gas pattern, constipation. Resolved following initiation of bowel regimen. 9. Type 2 diabetes [id number]-[id number] with sliding scale insulin. Lantus 10 units nightly. 10. Hypertension-stable, continue current regimen. 11. Hyperlipidemia-continue high-dose statin. 12. Morbid obesity-encouraged diet lifestyle modifications. 13. Suspected VASILIY-recommend outpatient pulmonary follow-up, PSG. Patient has sleep study scheduled 01/26/2020 at 2000. DVT prophylaxis-Eliquis This patient was seen by ADALID Landeros under the supervision of Dr. Ventura. <Maria Del Carmen Ventura - Last Filed: 01/17/20 16:44> - Physical Exam Vitals/I&O's: Vital Signs Temp Pulse Resp BP Pulse Ox 98.7 F 80 22 H 137/54 H 94 01/17/20 09:00 01/17/20 14:47 01/17/20 09:00 01/17/20 09:00 01/17/20 09:00 Oxygen Flow Rate (L/min) 2 Oxygen Delivery Method Nasal Cannula Weight: 145.7 kg Body Mass Index (BMI) 45.1 Finger Stick Blood Glucose 128 Intake and Output for Last 24 Hours 01/15/20 01/16/20 01/17/20 23:59 23:59 23:59 Intake Total 1390 / 1390 1542.00 / 1542.00 450.75 / 450.75 Output Total 1650 / 1650 975 / 975 Balance -260 / -260 567.00 / 567.00 450.75 / 450.75 Microbiology Past 72 Hours 01/13/20 18:40 Sputum, Expectorated/Coughed Gram Stain - Final 01/13/20 18:40 Sputum, Expectorated/Coughed Respiratory Culture - Final 01/15/20 12:15 Stool Stool Occult Blood (BRANDON) - Final Laboratory Results 01/16/20 16:26: POC Glucose 181 H 01/16/20 21:50: POC Glucose 202 H 01/17/20 06:52: POC Glucose 175 H 01/17/20 08:17: WBC 8.8, RBC 3.58 L, Hgb 10.2 L, Hct 33.0 L, MCV 92.2, MCH 28.5, MCHC 30.9 L, RDW Std Deviation 48.9 H, RDW Coeff of [place] 14.6, Plt Count 489 H, MPV 9.7, Immature Gran % (Auto) 0.600, Neut % (Auto) 81.5 H, Lymph % (Auto) 6.8 L, Lawrence % (Auto) 9.7, Eos % (Auto) 1.2, Baso % (Auto) 0.2, Absolute Neuts (auto) 7.2, Absolute Lymphs (auto) 0.60 L, Nucleated RBC % 0, Platelet Estimate ADEQUATE, Hypochromasia 1+ 01/17/20 08:17: Sodium 137, Potassium 3.6, Chloride 99, Carbon Dioxide 34.0 H, Anion Gap 4 L, BUN 33 H, Creatinine 1.17, Estim Creat Clear Calc 68.46, Est GFR (MDRD) Af Amer 81, Est GFR (MDRD) Non-Af 67, BUN/Creatinine Ratio 28.2 H, Glucose 186 H, Calcium 8.6, Total Bilirubin 0.50, AST 60 H, ALT 60, Alkaline Phosphatase 96, Total Protein 7.1, Albumin 1.3 L, Globulin 5.8 H, Albumin/Globulin Ratio 0.2 L 01/17/20 12:18: POC Glucose 190 H Current Medications Acetaminophen (Tylenol) 650 mg PO Q6H PRN PRN PRN Reason: Pain Score 1-3 /Temp>100.7 Last Admin: 01/12/20 20:32 Dose: 650 mg Documented by: Albuterol Sulfate (Ventolin Aerosols) 2.5 mg INHALATION Q2H PRN PRN PRN Reason: SOB &/OR WHEEZING Last Admin: 01/16/20 21:05 Dose: 2.5 mg Documented by: Amiodarone HCl (Cordarone) 200 mg PO DAILY COUNTS INCLUDE 234 BEDS AT [facility] Last Admin: 01/17/20 08:56 Dose: 200 mg Documented by: Apixaban (Eliquis) 5 mg PO BID COUNTS INCLUDE 234 BEDS AT [facility] Last Admin: 01/17/20 14:08 Dose: 5 mg Documented by: Aspirin (Ecotrin) 81 mg PO DAILY@0800 COUNTS INCLUDE 234 BEDS AT [facility] Atorvastatin Calcium (Lipitor) 80 mg PO QHS COUNTS INCLUDE 234 BEDS AT [facility] Last Admin: 01/16/20 21:56 Dose: 80 mg Documented by: Calcium Carbonate (Tums) 500 mg PO Q6H PRN PRN PRN Reason: INDIGESTION Last Admin: 01/13/20 18:16 Dose: 500 mg Documented by: Furosemide (Lasix) 40 mg PO BID@1000,1800 COUNTS INCLUDE 234 BEDS AT [facility] Last Admin: 01/17/20 08:59 Dose: 40 mg Documented by: [facility]) [facility] Last Admin: 01/17/20 08:56 Dose: 200 mg Documented by: Guaifenesin (Mucinex) 1,200 mg PO BID PRN PRN PRN Reason: COUGH Last Admin: 01/17/20 08:56 Dose: 1,200 mg Documented by: Sodium Chloride () 250 mls @ 15 mls/hr IV .[id number] PRN PRN Reason: Saline Flush Last Infusion: 01/17/20 14:40 Dose: Infused Documented by: Sodium Chloride () 250 mls @ 15 mls/hr IV .[id number] PRN PRN Reason: Additional IVPB Infusion Insulin Glargine (Lantus (Bkc)) 10 units SC QHS COUNTS INCLUDE 234 BEDS AT [facility] Insulin Human Lispro (Humalog Kwikpen (Bkc)) 0 unit SC [facility]; Protocol Last Admin: 01/17/20 12:20 Dose: 2 u Documented by: Lidocaine (Lidoderm Patch) 1 patch TOPICAL DAILY PRN PRN Reason: PAIN 1-1010 Loratadine (Claritin) 5 mg PO DAILY COUNTS INCLUDE 234 BEDS AT [facility] Last Admin: 01/17/20 08:57 Dose: 5 mg Documented by: Losartan Potassium (Cozaar) 50 mg PO DAILY COUNTS INCLUDE 234 BEDS AT [facility] Last Admin: 01/17/20 08:57 Dose: 50 mg Documented by: Magnesium Oxide (Mag-Ox 400) 400 mg PO DAILY COUNTS INCLUDE 234 BEDS AT [facility] Last Admin: 01/17/20 08:57 Dose: 400 mg Documented by: Metoprolol Tartrate (Lopressor (Beta Chidi)) 100 mg PO BID COUNTS INCLUDE 234 BEDS AT [facility] Last Admin: 01/17/20 08:57 Dose: 100 mg Documented by: Morphine Sulfate () 2 - 4 mg IV Q4H PRN PRN PRN Reason: Pain Score 1-10/10 Last Admin: 01/13/20 05:16 Dose: 4 mg Documented by: Oxycodone HCl (Oxyir) 5 mg PO Q4H PRN PRN PRN Reason: Pain Score 4-5/10 Last Admin: 01/12/20 14:30 Dose: 5 mg Documented by: Pantoprazole Sodium (Protonix) 40 mg PO Q12 COUNTS INCLUDE 234 BEDS AT [facility] Last Admin: 01/17/20 08:59 Dose: 40 mg Documented by: Sodium Chloride () 10 - 40 ml IV UD PRN PRN Reason: SALINE FLUSH Last Admin: 01/16/20 19:50 Dose: 20 ml Documented by: Temazepam (Restoril) 15 mg PO QHS PRN PRN Reason: INSOMNIA Assessment/Plan This patient was seen in conjunction with Qian Mckeon [employer]. I have independently interviewed and examined the patient and reviewed pertinent historical, laboratory, and other data. Please refer to her note for patient's presentation, findings, and recommendations. Patient was seen and examined. No acute events overnight. Feels improved Physical Exam: Gen: Morbidly obese, comfortable, not pale, not jaundiced, alert oriented x3, on 2 L of oxygen CVS:HS I +II, regular, no murmurs RESP: Diminished at lung bases GI: BS present and normal, nontender, no palpable organs EXT: Bilateral lower extremity edema, Cayden wrap Labs reviewed: ASSESSMENT: 1. Acute on chronic anemia 2. Acute on chronic combined respiratory failure status post extubation on 01/10 3. Severe sepsis secondary to pneumonia/UTI 4. ROBERT on CKD stage III 5. Hyperkalemia 6. NSTEMI 7. Type II DM 8. A flutter, rate controlled 9. Right intrarenal calculus, 5mm 10. Morbid obesity Meds reviewed Plan: Completed antibiotics. Continue on resumed Lasix Repeat blood work in am Daily weight Inpatient E&M: 00180 Subs Hosp L2
[2020-01-17 12:35] LABS: Bedside Glucose 190 mg/dL (70-110)
[2020-01-17] MEDS: APIXABAN 5 MG TABLET PO ×2 (14:08→21:11)
--- NOTE | 2020-01-17 16:27 | PCM.PN.REN ---
Patient Problems: Active and Suspected Problems (Last Reviewed 01/15/20 @ 15:[address] Olegario Qiu MD) Anemia (Acute) Subjective: no new complaints edema better still on O2 munoz out - Physical Exam Vitals/I&O's: Vital Signs Temp Pulse Resp BP Pulse Ox 98.7 F 80 22 H 137/54 H 94 01/17/20 09:00 01/17/20 14:47 01/17/20 09:00 01/17/20 09:00 01/17/20 09:00 Oxygen Flow Rate (L/min) 2 Oxygen Delivery Method Nasal Cannula Weight: 145.7 kg Body Mass Index (BMI) 45.1 Finger Stick Blood Glucose 128 Intake and Output for Last 24 Hours 01/15/20 01/16/20 01/17/20 23:59 23:59 23:59 Intake Total 1390 / 1390 1542.00 / 1542.00 450.75 / 450.75 Output Total 1650 / 1650 975 / 975 Balance -260 / -260 567.00 / 567.00 450.75 / 450.75 General: Alert, Oriented x3, Cooperative HEENT: Atraumatic, PERRLA, EOMI, Normocephalic Neck: Supple, No JVD, Negative Carotid Bruits Lungs: Clear to auscultation, Normal air movement Cardiovascular: Regular rate, No murmurs Abdomen: Bowel Sounds Present, Soft, Non Tender Extremities: No edema, Capillary Refill Less than 3 Seconds Skin: No rashes, No breakdown Musculoskeletal: No Tenderness to Palpation of Joints or Extremities Neurological: Cranial nerves II-XII grossly intact Psych/Mental Status: Normal Affect, Appropriate Microbiology Past 72 Hours 01/13/20 18:40 Sputum, Expectorated/Coughed Gram Stain - Final 01/13/20 18:40 Sputum, Expectorated/Coughed Respiratory Culture - Final 01/15/20 12:15 Stool Stool Occult Blood (BRANDON) - Final Laboratory Results 01/16/20 16:26: POC Glucose 181 H 01/16/20 21:50: POC Glucose 202 H 01/17/20 06:52: POC Glucose 175 H 01/17/20 08:17: WBC 8.8, RBC 3.58 L, Hgb 10.2 L, Hct 33.0 L, MCV 92.2, MCH 28.5, MCHC 30.9 L, RDW Std Deviation 48.9 H, RDW Coeff of [place] 14.6, Plt Count 489 H, MPV 9.7, Immature Gran % (Auto) 0.600, Neut % (Auto) 81.5 H, Lymph % (Auto) 6.8 L, [place] % (Auto) 9.7, Eos % (Auto) 1.2, Baso % (Auto) 0.2, Absolute Neuts (auto) 7.2, Absolute Lymphs (auto) 0.60 L, Nucleated RBC % 0, Platelet Estimate ADEQUATE, Hypochromasia 1+ 01/17/20 08:17: Sodium 137, Potassium 3.6, Chloride 99, Carbon Dioxide 34.0 H, Anion Gap 4 L, BUN 33 H, Creatinine 1.17, Estim Creat Clear Calc 68.46, Est GFR (MDRD) Af Amer 81, Est GFR (MDRD) Non-Af 67, BUN/Creatinine Ratio 28.2 H, Glucose 186 H, Calcium 8.6, Total Bilirubin 0.50, AST 60 H, ALT 60, Alkaline Phosphatase 96, Total Protein 7.1, Albumin 1.3 L, Globulin 5.8 H, Albumin/Globulin Ratio 0.2 L 01/17/20 12:18: POC Glucose 190 H Current Medications Acetaminophen (Tylenol) 650 mg PO Q6H PRN PRN PRN Reason: Pain Score 1-3 /Temp>100.7 Last Admin: 01/12/20 20:32 Dose: 650 mg Documented by: Albuterol Sulfate (Ventolin Aerosols) 2.5 mg INHALATION Q2H PRN PRN PRN Reason: SOB &/OR WHEEZING Last Admin: 01/16/20 21:05 Dose: 2.5 mg Documented by: Amiodarone HCl (Cordarone) 200 mg PO DAILY [facility] Last Admin: 01/17/20 08:56 Dose: 200 mg Documented by: Apixaban (Eliquis) 5 mg PO BID [facility] Last Admin: 01/17/20 14:08 Dose: 5 mg Documented by: Aspirin (Ecotrin) 81 mg PO DAILY@0800 [facility] Atorvastatin Calcium (Lipitor) 80 mg PO QHS [facility] Last Admin: 01/16/20 21:56 Dose: 80 mg Documented by: Calcium Carbonate (Tums) 500 mg PO Q6H PRN PRN PRN Reason: INDIGESTION Last Admin: 01/13/20 18:16 Dose: 500 mg Documented by: Furosemide (Lasix) 40 mg PO BID@1000,1800 [facility] Last Admin: 01/17/20 08:59 Dose: 40 mg Documented by: [facility]) [facility] Last Admin: 01/17/20 08:56 Dose: 200 mg Documented by: Guaifenesin (Mucinex) 1,200 mg PO BID PRN PRN PRN Reason: COUGH Last Admin: 01/17/20 08:56 Dose: 1,200 mg Documented by: Sodium Chloride () 250 mls @ 15 mls/hr IV .[id number] PRN PRN Reason: Saline Flush Last Infusion: 01/17/20 14:40 Dose: Infused Documented by: Sodium Chloride () 250 mls @ 15 mls/hr IV .[id number] PRN PRN Reason: Additional IVPB Infusion Insulin Glargine (Lantus (Bkc)) 10 units SC QHS [facility] Insulin Human Lispro (Humalog Kwikpen (Bkc)) [facility]; Protocol Last Admin: 01/17/20 12:20 Dose: 2 u Documented by: Lidocaine (Lidoderm Patch) 1 patch TOPICAL DAILY PRN PRN Reason: PAIN 1-1010 Loratadine (Claritin) 5 mg PO DAILY [facility] Last Admin: 01/17/20 08:57 Dose: 5 mg Documented by: Losartan Potassium (Cozaar) 50 mg PO DAILY [facility] Last Admin: 01/17/20 08:57 Dose: 50 mg Documented by: Magnesium Oxide (Mag-Ox 400) 400 mg PO DAILY [facility] Last Admin: 01/17/20 08:57 Dose: 400 mg Documented by: Metoprolol Tartrate (Lopressor (Beta Chidi)) 100 mg PO BID [facility] Last Admin: 01/17/20 08:57 Dose: 100 mg Documented by: Morphine Sulfate () 2 - 4 mg IV Q4H PRN PRN PRN Reason: Pain Score 1-10/10 Last Admin: 01/13/20 05:16 Dose: 4 mg Documented by: Oxycodone HCl (Oxyir) 5 mg PO Q4H PRN PRN PRN Reason: Pain Score 4-5/10 Last Admin: 01/12/20 14:30 Dose: 5 mg Documented by: Pantoprazole Sodium (Protonix) 40 mg PO Q12 [facility] Last Admin: 01/17/20 08:59 Dose: 40 mg Documented by: Sodium Chloride () 10 - 40 ml IV UD PRN PRN Reason: SALINE FLUSH Last Admin: 01/16/20 19:50 Dose: 20 ml Documented by: Temazepam (Restoril) 15 mg PO QHS PRN PRN Reason: INSOMNIA Medical Necessity - Tobacco Use Smoking Status: Never smoker Assessment/Plan All Active Problems (Last Reviewed 01/15/20 @ 15:[address] Olegario Qiu MD) Atrial flutter with rapid ventricular response (Acute) Anemia (Acute) Respiratory failure with hypoxia and hypercapnia (Acute) Atrial fibrillation with rapid ventricular response (Acute) S/P CABG x 4 (Acute) Acute exacerbation of CHF (congestive heart failure) (Resolved) ROBERT CKD 3 volume overload recent CABG clinically significantly better renal US shows non obstructive stone UA shows trace protein and blood, not very impressive started back on lasix 40 mg BID
[2020-01-17 17:30] LABS: Bedside Glucose 204 mg/dL (70-110)
[2020-01-17] MEDS: Atorvastatin Calcium 80 MG Tablet PO (21:13)
[2020-01-17 22:51] LABS: Bedside Glucose 210 mg/dL (70-110)
[2020-01-18] VITALS (7 sets, daily range): BP systolic 127–132; BP diastolic 64–70; PULSE 69–86; RESP 20; TEMP 36.4–36.7; O2SAT 86–100
[2020-01-18 05:51] LABS: Hematocrit 35.9 % (40-54); Hemoglobin 10.7 g/dL (13.0-16.5); Mean Corp Hgb Conc 29.8 g/dL (32-36); Mean Corpuscular Hgb 27.9 pg (27.0-32.0); Mean Corpuscular Volume 93.7 fL (80-94); Platelet Count 532 K/mm3 (150-450); RBC Distribution Width CV 14.6 % (11.6-14.6); RBC Distribution Width SD 49.9 fl (35.1-43.9); Red Blood Count 3.83 M/mm3 (4.6-6.2); White Blood Count 10.5 K/mm3 (4.4-11.0)
[2020-01-18 06:14] LABS: Anion Gap 7 (5-15); BUN 26 mg/dL (7-18); BUN/Creat Ratio 26.6 RATIO (10-20); Calcium,Total 8.6 mg/dL (8.5-10.1); Chloride 99 mmol/L (98-107); Creatinine, Serum 0.98 mg/dL (0.70-1.30); EST Glomerular Filtration Rate 83 mL/min (>60); Est Glom Filt Rate - Afr Amer 100 mL/min (>60); Estimated Creatinine Clearance 81.73 ml/min; Glucose 191 mg/dL (74-106); Potassium 3.7 mmol/L (3.5-5.1); Sodium Level 140 mmol/L (136-145)
[2020-01-18] MEDS: Insulin Lispro 100 UNIT/ML INSULN.PEN SC (06:30)
[2020-01-18 06:35] LABS: Bedside Glucose 166 mg/dL (70-110)
[2020-01-18] MEDS: guaiFENesin 1,200 MG Tablet 1200 MG PO (08:02)
[2020-01-18] MEDS: Furosemide 40 MG Tablet PO (08:02)
[2020-01-18] MEDS: Gabapentin 100 MG Capsule 200 MG PO (08:02)
[2020-01-18] MEDS: Loratadine 10 MG Tablet 5 MG PO (08:03)
[2020-01-18] MEDS: Amiodarone 200 MG Tablet PO (08:03)
[2020-01-18] MEDS: Metoprolol Tartrate 100 MG Tablet PO (08:04)
[2020-01-18] MEDS: Losartan Potassium 50 MG Tablet PO (08:04)
[2020-01-18] MEDS: Pantoprazole Sodium 40 MG Tablet PO (08:04)
[2020-01-18] MEDS: APIXABAN 5 MG TABLET PO (08:05)
[2020-01-18] MEDS: Magnesium Oxide 400 MG Tablet PO (08:05)
[2020-01-18] MEDS: Aspirin E.C. 81 MG Tablet PO (08:06)
--- NOTE | 2020-01-18 08:58 | PCM.DC ---
- Discharge Diagnoses Current Active Problems: Current Active and Chronic Problems (Last Reviewed 01/15/20 @ 15:[address] Olegario Qiu MD) 1. Acute combined hypoxic and hypercapnic respiratory failure secondary to acute on chronic heart failure and healthcare associated pneumonia 2. Acute on chronic anemia 3. Severe sepsis secondary to Klebsiella UTI and healthcare associated pneumonia 4. Acute kidney injury 5. Recent new onset atrial fibrillation with RVR 6. NSTEMI/CAD-recent CABG in November 2019 7. Suspected VASILIY You will use the following diet at home:: Calorie/Carbohydrate Controlled (specify 1200, 1400, etc), Cardiac Discharge Activity: Return to Normal Activity Call your doctor if you observe: Shortness of breath, Dizziness, Fainting spells, Chest pain Allergies/Adverse Reactions: Allergies No Known Allergies Allergy (Verified 01/09/20 07:48) Medications to take at Discharge Atorvastatin Calcium [Lipitor] 80 mg PO QHS 11/17/19 Ipratropium [place] 1 spray INHALATION DAILY 11/17/19 Levocetirizine Dihydrochloride 5 mg PO DAILY 11/17/19 Losartan Potassium 50 mg PO DAILY 11/17/19 Temazepam 15 mg PO QHS PRN 11/17/19 Testosterone Cypionate 200 mg IM X1 11/17/19 metFORMIN HCl [Glucophage] 1,000 mg PO BIDCM 11/17/19 Aspirin [Aspirin, Baby] 2 tab PO DAILY@0800 01/04/20 Gabapentin [Neurontin] 200 mg PO DAILY 01/04/20 Magnesium Oxide 400 mg PO DAILY 01/04/20 Polyethylene Glycol 3350 [Miralax] 17 gm PO DAILY 01/04/20 Amiodarone HCl 200 mg PO DAILY 30 Days #30 tab 01/07/20 Apixaban [Eliquis] 5 mg PO BID 30 Days #60 tab 01/07/20 Furosemide [Lasix] 40 mg PO BIDLX 30 Days #60 tab 01/07/20 Insulin Glargine [Lantus SoloStar Pen] 10 units SUBCUT QHS pen 01/18/20 Metoprolol Tartrate [Lopressor (beta ronen)] 100 mg PO BID #60 tab 01/18/20 Pantoprazole Sodium [Protonix] 40 mg PO Q12 #60 tab 01/18/20 The following prescriptions were given: Metoprolol Tartrate [Lopressor (beta ronen)] 100 mg PO BID #60 tab Transmission Status: Received by [facility][id number] Pantoprazole Sodium [Protonix] 40 mg PO Q12 #60 tab Transmission Status: Received by [id number] Primary Care Physician: Josué Rodriguez MD [Primary Care Provider] - Please follow up with your Primary Care Physician in: 1 Week Test Results: Test results from this visit will be discussed in further detail at your follow-up appointment, if applicable. Please Follow Up With: Ian Rondon MD When: As scheduled 01/20/2020 Please Follow Up With: Kelvin Heaton DO When: Sleep study 01/26/2020 at 8pm Please Follow Up With: Morro Loja MD When: 1 Week, call to establish for follow up 5 mm left kidney stone Proposed Discharge Date: 01/18/20
--- NOTE | 2020-01-18 08:59 | PCM.PN.PUL ---
Patient Problems: Active and Suspected Problems (Last Reviewed 01/15/20 @ 15:[address] Olegario Qiu MD) Anemia (Acute) Subjective: Patient did well overnight. Patient reports subjective improvement in dyspnea. No significant pain has been reported. Patient reports he was able to walk in the hallway yesterday. Patient does have stairs in his home, but was able to tolerate this previously on discharge. - Physical Exam Vitals/I&O's: Vital Signs Temp Pulse Resp BP Pulse Ox 36.7 C 86 20 H 127/64 H 90 01/18/20 08:27 01/18/20 08:27 01/18/20 08:27 01/18/20 08:27 01/18/20 08:28 Oxygen Flow Rate (L/min) [ 2 AMBULATION with Oxygen] Oxygen Flow Rate (L/min) 2 Oxygen Delivery Method Nasal Cannula Weight: 144.4 kg Body Mass Index (BMI) 45.1 Finger Stick Blood Glucose 128 Intake and Output for Last 24 Hours 01/16/20 01/17/20 01/18/20 23:59 23:59 23:59 Intake Total 1542.00 / 1542.00 1170.75 / 1170.75 220 / 220 Output Total 975 / 975 625 / 625 Balance 567.00 / 567.00 1170.75 / 1170.75 -405 / -405 General: Alert, Oriented x3, Cooperative, No apparent distress, - - Morbidly obese. Speaking in full sentences HEENT: Atraumatic, PERRLA, EOMI, Normocephalic, - - Nasal cannula in place. No epistaxis noted. Oral: Moist Mucosa, No Gingival or Mucosal Lesions/ Ulcerations, - - Crowded posterior pharynx Neck: Supple, No JVD, No Nodes, Trachea Midline Lungs: No rhonchi, No wheeze, No rales, Diminished, - - Symmetric expansion Cardiovascular: Regular rate, Regular Rhythm, Normal S1, Normal S2, No murmurs, No rub noted, No Gallop Abdomen: Bowel Sounds Present, Soft, Non Tender, Non-Distended, Obese Extremities: No clubbing, No cyanosis, Edema - Wrapped with Cayden bandages lower extremities Skin: - - No change compared to previous Musculoskeletal: No Tenderness to Palpation of Joints or Extremities Lymphatic: No Cervical, Supraclavicular, or Inguinal Adenopathy Neurological: Cranial nerves II-XII grossly intact, Neuro grossly intact, Motor Exam 5/5 strength throughout Psych/Mental Status: Alert and oriented to time, place, person, mood and affect Microbiology Past 72 Hours 01/13/20 18:40 Sputum, Expectorated/Coughed Gram Stain - Final 01/13/20 18:40 Sputum, Expectorated/Coughed Respiratory Culture - Final 01/15/20 12:15 Stool Stool Occult Blood (BRANDON) - Final Laboratory Results 01/17/20 06:52: POC Glucose 175 H 01/17/20 08:17: Sodium 137, Potassium 3.6, Chloride 99, Carbon Dioxide 34.0 H, Anion Gap 4 L, BUN 33 H, Creatinine 1.17, Estim Creat Clear Calc 68.46, Est GFR (MDRD) Af Amer 81, Est GFR (MDRD) Non-Af 67, BUN/Creatinine Ratio 28.2 H, Glucose 186 H, Calcium 8.6, Total Bilirubin 0.50, AST 60 H, ALT 60, Alkaline Phosphatase 96, Total Protein 7.1, Albumin 1.3 L, Globulin 5.8 H, Albumin/Globulin Ratio 0.2 L 01/17/20 12:18: POC Glucose 190 H 01/17/20 16:40: POC Glucose 204 H 01/17/20 21:09: POC Glucose 210 H 01/18/20 05:24: WBC 10.5, RBC 3.83 L, Hgb 10.7 L, Hct 35.9 L, MCV 93.7, MCH 27.9, MCHC 29.8 L, RDW Std Deviation 49.9 H, RDW Coeff of [place] 14.6, Plt Count 532 H, MPV 10.0 01/18/20 05:24: Sodium 140, Potassium 3.7, Chloride 99, Carbon Dioxide 34.0 H, Anion Gap 7, BUN 26 H, Creatinine 0.98, Estim Creat Clear Calc 81.73, Est GFR (MDRD) Af Amer 100, Est GFR (MDRD) Non-Af 83, BUN/Creatinine Ratio 26.6 H, Glucose 191 H, Calcium 8.6 01/18/20 06:28: POC Glucose 166 H Current Medications Acetaminophen (Tylenol) 650 mg PO Q6H PRN PRN PRN Reason: Pain Score 1-3 /Temp>100.7 Last Admin: 01/12/20 20:32 Dose: 650 mg Documented by: Albuterol Sulfate (Ventolin Aerosols) 2.5 mg INHALATION Q2H PRN PRN PRN Reason: SOB &/OR WHEEZING Last Admin: 01/16/20 21:05 Dose: 2.5 mg Documented by: Amiodarone HCl (Cordarone) 200 mg PO DAILY [facility] Last Admin: 01/18/20 08:03 Dose: 200 mg Documented by: Apixaban (Eliquis) 5 mg PO BID [facility] Last Admin: 01/18/20 08:05 Dose: 5 mg Documented by: Aspirin (Ecotrin) 81 mg PO DAILY@0800 [facility] Last Admin: 01/18/20 08:06 Dose: 81 mg Documented by: Atorvastatin Calcium (Lipitor) 80 mg PO QHS [facility] Last Admin: 01/17/20 21:13 Dose: 80 mg Documented by: Calcium Carbonate (Tums) 500 mg PO Q6H PRN PRN PRN Reason: INDIGESTION Last Admin: 01/13/20 18:16 Dose: 500 mg Documented by: Furosemide (Lasix) 40 mg PO BID@1000,1800 [facility] Last Admin: 01/18/20 08:02 Dose: 40 mg Documented by: [facility] Admin: 01/18/20 08:02 Dose: 200 mg Documented by: Guaifenesin (Mucinex) 1,200 mg PO BID PRN PRN PRN Reason: COUGH Last Admin: 01/18/20 08:02 Dose: 1,200 mg Documented by: Sodium Chloride () 250 mls @ 15 mls/hr IV .[id number] PRN PRN Reason: Saline Flush Last Infusion: 01/17/20 14:40 Dose: Infused Documented by: Sodium Chloride () 250 mls @ 15 mls/hr IV .[id number] PRN PRN Reason: Additional IVPB Infusion Insulin Glargine (Lantus (Bk)) 10 units SC QHS [facility] Last Admin: 01/17/20 21:15 Dose: 10 units Documented by: Insulin Human Lispro (Humalog Kwikpen (Bk)) 0 unit SC ACHS [facility]; Protocol Last Admin: 01/18/20 06:30 Dose: 1 u Documented by: Lidocaine (Lidoderm Patch) 1 patch TOPICAL DAILY PRN PRN Reason: PAIN 1-10 Loratadine (Claritin) 5 mg PO DAILY [facility] Last Admin: 01/18/20 08:03 Dose: 5 mg Documented by: Losartan Potassium (Cozaar) 50 mg PO DAILY [facility] Last Admin: 01/18/20 08:04 Dose: 50 mg Documented by: Magnesium Oxide (Mag-Ox 400) 400 mg PO DAILY [facility] Last Admin: 01/18/20 08:05 Dose: 400 mg Documented by: Metoprolol Tartrate (Lopressor (Beta Chidi)) 100 mg PO BID [facility] Last Admin: 01/18/20 08:04 Dose: 100 mg Documented by: Morphine Sulfate () 2 - 4 mg IV Q4H PRN PRN PRN Reason: Pain Score 1-10 Last Admin: 01/13/20 05:16 Dose: 4 mg Documented by: Oxycodone HCl (Oxyir) 5 mg PO Q4H PRN PRN PRN Reason: Pain Score 4-5/10 Last Admin: 01/12/20 14:30 Dose: 5 mg Documented by: Pantoprazole Sodium (Protonix) 40 mg PO Q12 [facility] Last Admin: 01/18/20 08:04 Dose: 40 mg Documented by: Sodium Chloride () 10 - 40 ml IV UD PRN PRN Reason: SALINE FLUSH Last Admin: 01/16/20 19:50 Dose: 20 ml Documented by: Temazepam (Restoril) 15 mg PO QHS PRN PRN Reason: INSOMNIA Medical Necessity - Tobacco Use Smoking Status: Never smoker Assessment/Plan All Active Problems (Last Reviewed 01/15/20 @ 15:[address] Olegario Qiu MD) Atrial flutter with rapid ventricular response (Acute) Anemia (Acute) Respiratory failure with hypoxia and hypercapnia (Acute) Atrial fibrillation with rapid ventricular response (Acute) S/P CABG x 4 (Acute) Acute exacerbation of CHF (congestive heart failure) (Resolved) RECOMMENDATIONS: 1. Completed antibiotic course 2. Continue twice daily PPI therapy. 3. Continue Eliquis, diuretics and beta-chidi therapy from my perspective 4. Monitor blood counts daily and transfuse if hemoglobin drops below 7 g/dL. 5. Walking oximetry prior to discharge 6. Continue empiric BiPAP therapy nightly. Plan for outpatient polysomnogram later this month. 7. Wean supplemental oxygen to maintain saturations at or above 90%. 8. Encourage incentive spirometer use and mobilize patient as tolerated. IMPRESSIONS: 1. Acute combined respiratory failure The patient was initially admitted to the ICU with respiratory failure of unclear precipitating etiology. However, it was felt to be mostly secondary to a state of CHF exacerbation, as opposed to a pulmonary infectious etiology. The patient was able to be weaned from invasive mechanical ventilatory support on January 10. He was maintained on empiric antimicrobials along with scheduled diuretics and transferred out of the ICU on the . He then developed increased work of breathing and anemia, which prompted his transfer back to the ICU on January 13. He remained stable from a respiratory perspective on nasal cannula supplemental oxygen and empiric BiPAP therapy nightly, over concerns for obstructive sleep apnea. We will plan to wean supplemental oxygen to maintain saturations at or above 90%. Encourage incentive spirometer use and mobilize patient as tolerated. Do anticipate supplemental oxygen requirements at discharge 2. Acute decompensated heart failure/troponin elevation Cardiology is currently following. Continue current medical management. Continue patient's Eliquis from my perspective. Defer to surgery. Renal function has normalized. 3. Anemia The patient presented to the hospital on January 03 with a hemoglobin of 10.9. There has been a slow downward decline in his blood counts over the course of the hospitalization with a rebekah hemoglobin of 7.2 g/dL on January 13. The patient has received a total of 3 units of packed red blood cells. Hemoglobin has improved to 10.7 this morning. The patient remains on twice daily PPI therapy. 4. Severe sepsis Resolved. Appeared to be either secondary to a urinary tract source of infection or underlying healthcare associated pneumonia. The patient is on appropriate antimicrobials at this time. The patient was initially completing a treatment course of Levaquin due to Klebsiella isolated from his urine culture. Patient can likely be taken off of antibiotics from my perspective. 5. Thrombocytosis Resolved. Unclear etiology. Platelet count appears to have been increasing since the end of December. Possible consumptive process versus sequestration. Will monitor clinically. If indicated, consultation will be obtained from hematology. 6. Probable obstructive sleep apnea The patient would be considered high risk for underlying sleep disordered breathing. I would recommend an outpatient polysomnogram be completed upon discharge from the hospital. He is currently scheduled to undergo a diagnostic polysomnogram on January 25. Patient should use supplemental oxygen with sleep until sleep study is performed if BiPAP is not available on discharge 7. Morbid obesity/hypertension/hyperlipidemia/diabetes mellitus Complicates care, management, recovery and prognosis. Continue basal and sliding scale insulin coverage. Inpatient E&M: 25365 Subs Hosp L2
--- NOTE | 2020-01-18 09:22 | CASEMGMT ---
Addendum entered by Catie Guy 01/18/20 10:26: This ADITI CM to room to discuss discharge plan with pt at this time. Pt is aware that [facility] to resume and states has sleep study paper and study scheduled for 01/26/2020 at 2000, voices understanding. Pt aware to continue on 2-3liters home oxygen as previously prescribed, voices understanding. Pt voices no further questions/concerns/needs at this time. Bakari PENNINGTON CM Original Note: H&P and discharge instructions faxed to [facility] at this time. Message left with Viji at [facility] in regards to same with this ADITI SAINI's contact info. Pt still requires 2liters home oxygen via nc and he was set up with oxygen during last visit. Bakari PENNINGTON CM
--- NOTE | 2020-01-18 10:03 | PCA ---
Dr. Loja's office is only open Thursday, Thursday, and , left a message for them to call patient to schedule apt.
--- NOTE | 2020-01-18 10:23 | PCM.DC.SUM ---
<Qian Mckeon - Last Filed: 01/18/20 11:03> Discharge Date and Diagnosis Date of Admission: 01/09/20 Date of Discharge: 01/18/20 - Primary Discharge Diagnosis Active and Suspected Problems (Last Reviewed 01/15/20 @ 15:[address] Olegario Qiu MD) 1. Acute combined hypoxic and hypercapnic respiratory failure secondary to acute on chronic CHF with preserved ejection fraction and suspected healthcare associated pneumonia 2. Acute on chronic macrocytic anemia, suspect GI bleed with associated hypotension 3. Severe sepsis secondary to Klebsiella UTI and suspected healthcare associated pneumonia 4. Acute kidney injury 5. Recent new onset atrial fibrillation with RVR 6. NSTEMI/CAD-recent CABG in November 2019 at [facility] due to triple vessel disease. 7. Thrombocytosis-unclear etiology. 8. Constipation-resolved. 9. Type 2 diabetes mellitus 10. Hypertension 11. Hyperlipidemia 12. Morbid obesity 13. Suspected VASILIY - Secondary Discharge Diagnosis Chronic Problems (Last Reviewed 01/15/20 @ 15:[address] Olegario Qiu MD) Type 2 diabetes mellitus (Chronic) Hypercholesterolemia (Chronic) Obesity (Chronic) History of left heart catheterization (Chronic 01/04/20) 11/18/19 per DJN @ [facility]: Triple-vessel disease involving a totally occluded dominant right coronary artery, moderately severe disease noted in the left anterior descending artery, ramus intermedius, and circumflex artery. Recommend surgical consult for revascularization. 01/04/2020:Normal Left Ventricular systolic function; LVEF: by LV gram 65 %. Elevated Left Ventricular End Diastolic Pressure. Triple vessel CAD of the RCA, LAD and LCX/OM; Widely patent ARREDONDO To LAD Widely patent composite graft of SVG attached to free ISAK, with grafts to DIAG and OM; Widely patent SVG to PDA (small) with distal 60% anastamotic narrowing; no PCI recommended given recent CABG and anastomotic narrowing perfusing a small vessel. No overt lesion that required PCI; ST elevation was most likely due to pt's cardiac supply/demand mismatch due to rapid afib and outstripping L to R collaterals to previously known occluded RCA; not a true STEMI. 01/04/20 per DJN @ [facility] Type 2 diabetes mellitus (Chronic) Atherosclerosis of coronary artery of [place] heart without angina pectoris (Chronic) Chronic diastolic (congestive) heart failure (Chronic) Nonrheumatic aortic (valve) stenosis (Chronic) mild per echo 30168 Essential (primary) hypertension (Chronic) Hospital Course and Treatment Imaging Results: Diagnostic Data Chest CTA 01/09/20 16:26 IMPRESSION: 1. No pulmonary embolus or aortic dissection. 2. Bilateral pleural effusions. 3. No demonstrated pneumonia. Electronically Signed: Monica Worley MD at 17:56 EDT Tel , Service support , KUB X-Ray 01/14/20 09:56 IMPRESSION: No sign of bowel obstruction. Mild effusion/atelectasis at the lung bases. Possible left renal calculus. Electronically Signed: Valdez Parekh DO at 11:02 EDT Tel [phone], Service support , Abdomen CT 01/14/20 14:04 IMPRESSION: Exam limited by patient''s size and improper positioning of the patient''s arms. Bilateral [id number] pleural effusions and compressive atelectasis of the lower lobes. Small amounts of free fluid in the abdomen and pelvis. No evidence of retroperitoneal hemorrhage. Bilateral nonobstructing renal stones. Electronically Signed: Gabriel Chang MD at 23:33 EDT , Service support , ADDENDUM: 01/15/20 0005 Chest X-Ray 01/14/20 16:35 IMPRESSION: No change since earlier today. Electronically Signed: Gabriel Chang MD at 17:13 EDT , Service support , Renal Ultrasound 01/16/20 07:00 IMPRESSION: 5 mm nonobstructive left intrarenal calculus. Electronically Signed: Tutu Royal, at 8:42 EDT , Service support , [facility]- Cardiology Dr. Grant- Nephrology Dr. Qiu- General surgery Operations: None Procedures: 2-D Echocardiogram Summary of Care Provided: The patient is a 59 year old M admitted 01/09/2020 due to shortness of breath, fever. 1. Acute combined hypoxic and hypercapnic respiratory failure secondary to acute on chronic CHF with preserved ejection fraction and suspected healthcare associated pneumonia-cardiology and pulmonary medicine following. Echocardiogram demonstrates an EF of 65%. Chest CT without PE or aortic dissection. Bilateral pleural effusions. BNP greater than 600. Patient with initial fever and leukocytosis resolved. Patient extubated 01/11/2020. Patient developed increased shortness of breath 01/14/2020 and was transferred to intensive care unit. Patient significantly improved and has remained stable on PCU. Further antibiotics discontinued following 7-day course. Resume Lasix 40 mg p.o. twice daily. Patient recently prescribed home O2 which he will still require at discharge. Continue supplement oxygen to maintain O2 sat above 90%. 2. Acute on chronic macrocytic anemia, suspect GI bleed with associated hypotension-stool for occult blood negative. Status post 3 units PRBC for hemoglobin 7.2. Hemoglobin has since remained stable. Hemoglobin at discharge 10.7. Continue twice daily PPI. Aspirin, Eliquis resumed and repeat CBC remained stable. Dr. Qiu consulted during admission. Given hemoglobin stable, plan for outpatient evaluation for scopes. Hypotension resolved. Patient will call Dr. Qiu's office for further outpatient follow-up. 3. Severe sepsis secondary to Klebsiella UTI and suspected healthcare associated pneumonia-Blood culture showed no growth. Patient remains afebrile. Discontinued antibiotics following 7-day course. 4. Acute kidney injury-Nephrology consulted. Renal ultrasound demonstrates 5 mm nonobstructive left intrarenal calculus. FENa 0.1% suggesting prerenal. Creatinine now normal. Lasix resumed. Spoke with Dr. Loja regarding renal calculus, plan for outpatient follow-up. 5. Recent new onset atrial fibrillation with RVR-Continue amiodarone, metoprolol, Eliquis. 6. NSTEMI/CAD-recent CABG in November 2019 at [facility] due to triple vessel disease. On aspirin, metoprolol, statin, losartan. Cardiology following. 7. Thrombocytosis-unclear etiology. Trend CBC. Recommend outpatient follow-up with hematology. This referral can be arranged by primary care provider. 8. Constipation-KUB demonstrates nonspecific bowel gas pattern, constipation. Resolved following initiation of bowel regimen. Continue daily MiraLAX at discharge. 9. Type 2 diabetes mellitus-hemoglobin A1c 9.1% in September 2019. Continue home metformin regimen 1000 mg twice daily. Lantus 10 units nightly. Recommend repeat hemoglobin A1c by primary care provider. He may require further adjustment of insulin pending repeat A1c. 10. Hypertension-stable, continue current regimen. 11. Hyperlipidemia-continue high-dose statin. 12. Morbid obesity-encouraged diet lifestyle modifications. 13. Suspected VASILIY-recommend outpatient pulmonary follow-up, PSG. Patient has sleep study scheduled 01/26/2020 at 2000. General: Alert, Oriented x3, Cooperative HEENT: Atraumatic, PERRLA, EOMI, Normocephalic Neck: Supple, No JVD, Negative Carotid Bruits Lungs: Clear to auscultation, Diminished Cardiovascular: Atrial fibrillation, rate controlled Abdomen: Bowel Sounds Present, Soft, Non Tender, Non-Distended, Obese Extremities: No clubbing, No cyanosis, Edema - Bilateral lower extremities, improved Skin: No rashes, No breakdown Musculoskeletal: No Tenderness to Palpation of Joints or Extremities Neurological: Cranial nerves II-XII grossly intact, Neuro grossly intact Psych/Mental Status: Normal Affect, Appropriate Patient seen and examined prior to discharge. Physical assessment as noted above. Patient is stable for discharge with follow up recommendations as noted above. This patient was seen by ADALID Landeros under the supervision of Dr. Ventura. - Physical Exam Vitals/I&O's: Vital Signs Temp Pulse Resp BP Pulse Ox 98.0 F 86 20 H 127/64 H 90 01/18/20 08:27 01/18/20 08:27 01/18/20 08:27 01/18/20 08:27 01/18/20 08:28 Oxygen Flow Rate (L/min) [ 2 AMBULATION with Oxygen] Oxygen Flow Rate (L/min) 2 Oxygen Delivery Method Nasal Cannula Weight: 318 lb 5.56 oz Body Mass Index (BMI) 45.1 Finger Stick Blood Glucose 128 Intake and Output for Last 24 Hours 01/16/20 01/17/20 01/18/20 23:59 23:59 23:59 Intake Total 1542.00 / 1542.00 1170.75 / 1170.75 220 / 220 Output Total 975 / 975 625 / 625 Balance 567.00 / 567.00 1170.75 / 1170.75 -405 / -405 Microbiology Past 72 Hours 01/13/20 18:40 Sputum, Expectorated/Coughed Gram Stain - Final 01/13/20 18:40 Sputum, Expectorated/Coughed Respiratory Culture - Final 01/15/20 12:15 Stool Stool Occult Blood (BRANDON) - Final Laboratory Results 01/17/20 06:52: POC Glucose 175 H 01/17/20 12:18: POC Glucose 190 H 01/17/20 16:40: POC Glucose 204 H 01/17/20 21:09: POC Glucose 210 H 01/18/20 05:24: WBC 10.5, RBC 3.83 L, Hgb 10.7 L, Hct 35.9 L, MCV 93.7, MCH 27.9, MCHC 29.8 L, RDW Std Deviation 49.9 H, RDW Coeff of [place] 14.6, Plt Count 532 H, MPV 10.0 01/18/20 05:24: Sodium 140, Potassium 3.7, Chloride 99, Carbon Dioxide 34.0 H, Anion Gap 7, BUN 26 H, Creatinine 0.98, Estim Creat Clear Calc 81.73, Est GFR (MDRD) Af Amer 100, Est GFR (MDRD) Non-Af 83, BUN/Creatinine Ratio 26.6 H, Glucose 191 H, Calcium 8.6 01/18/20 06:28: POC Glucose 166 H Current Medications Acetaminophen (Tylenol) 650 mg PO Q6H PRN PRN PRN Reason: Pain Score 1-3 /Temp>100.7 Last Admin: 01/12/20 20:32 Dose: 650 mg Documented by: Albuterol Sulfate (Ventolin Aerosols) 2.5 mg INHALATION Q2H PRN PRN PRN Reason: SOB &/OR WHEEZING Last Admin: 01/16/20 21:05 Dose: 2.5 mg Documented by: Amiodarone HCl (Cordarone) 200 mg PO DAILY [facility] Last Admin: 01/18/20 08:03 Dose: 200 mg Documented by: Apixaban (Eliquis) 5 mg PO BID [facility] Last Admin: 01/18/20 08:05 Dose: 5 mg Documented by: Aspirin (Ecotrin) 81 mg PO DAILY@0800 [facility] Last Admin: 01/18/20 08:06 Dose: 81 mg Documented by: Atorvastatin Calcium (Lipitor) 80 mg PO QHS [facility] Last Admin: 01/17/20 21:13 Dose: 80 mg Documented by: Calcium Carbonate (Tums) 500 mg PO Q6H PRN PRN PRN Reason: INDIGESTION Last Admin: 01/13/20 18:16 Dose: 500 mg Documented by: Furosemide (Lasix) 40 mg PO BID@1000,1800 [facility] Last Admin: 01/18/20 08:02 Dose: 40 mg Documented by: Gabapentin (Neurontin) 200 mg PO DAILYCM [facility] Last Admin: 01/18/20 08:02 Dose: 200 mg Documented by: Guaifenesin (Mucinex) 1,200 mg PO BID PRN PRN PRN Reason: COUGH Last Admin: 01/18/20 08:02 Dose: 1,200 mg Documented by: Sodium Chloride () 250 mls @ 15 mls/hr IV .[id number] PRN PRN Reason: Saline Flush Last Infusion: 01/17/20 14:40 Dose: Infused Documented by: Sodium Chloride () 250 mls @ 15 mls/hr IV .[id number] PRN PRN Reason: Additional IVPB Infusion Insulin Glargine (Lantus (Bkc)) 10 units SC QHS [facility] Last Admin: 01/17/20 21:15 Dose: 10 units Documented by: Insulin Human Lispro (Humalog Kwikpen (Bk)) 0 unit SC [facility]; Protocol Last Admin: 01/18/20 06:30 Dose: 1 u Documented by: Lidocaine (Lidoderm Patch) 1 patch TOPICAL DAILY PRN PRN Reason: PAIN 1-06/16 Loratadine (Claritin) 5 mg PO DAILY [facility] Last Admin: 01/18/20 08:03 Dose: 5 mg Documented by: Losartan Potassium (Cozaar) 50 mg PO DAILY [facility] Last Admin: 01/18/20 08:04 Dose: 50 mg Documented by: Magnesium Oxide (Mag-Ox 400) 400 mg PO DAILY [facility] Last Admin: 01/18/20 08:05 Dose: 400 mg Documented by: Metoprolol Tartrate (Lopressor (Beta Chidi)) 100 mg PO BID [facility] Last Admin: 01/18/20 08:04 Dose: 100 mg Documented by: Morphine Sulfate () 2 - 4 mg IV Q4H PRN PRN PRN Reason: Pain Score 1-10/10 Last Admin: 01/13/20 05:16 Dose: 4 mg Documented by: Oxycodone HCl (Oxyir) 5 mg PO Q4H PRN PRN PRN Reason: Pain Score 4-5/10 Last Admin: 01/12/20 14:30 Dose: 5 mg Documented by: Pantoprazole Sodium (Protonix) 40 mg PO Q12 [facility] Last Admin: 01/18/20 08:04 Dose: 40 mg Documented by: Sodium Chloride () 10 - 40 ml IV UD PRN PRN Reason: SALINE FLUSH Last Admin: 01/16/20 19:50 Dose: 20 ml Documented by: Temazepam (Restoril) 15 mg PO QHS PRN PRN Reason: INSOMNIA Discharge Diet: Low fat/ Low Cholesterol, Carb Control Diet Discharge Activity: Return to Normal Activity Call your doctor if you observe: Shortness of breath, Dizziness, Fainting spells, Chest pain Home Medications: Medications to take at Discharge Atorvastatin Calcium [Lipitor] 80 mg PO QHS 11/17/19 Ipratropium [place] 1 spray INHALATION DAILY 11/17/19 Levocetirizine Dihydrochloride 5 mg PO DAILY 11/17/19 Losartan Potassium 50 mg PO DAILY 11/17/19 Temazepam 15 mg PO QHS PRN 11/17/19 Testosterone Cypionate 200 mg IM X1 11/17/19 metFORMIN HCl [Glucophage] 1,000 mg PO BIDCM 11/17/19 Aspirin [Aspirin, Baby] 2 tab PO DAILY@0800 01/04/20 Gabapentin [Neurontin] 200 mg PO DAILY 01/04/20 Magnesium Oxide 400 mg PO DAILY 01/04/20 Polyethylene Glycol 3350 [Miralax] 17 gm PO DAILY 01/04/20 Amiodarone HCl 200 mg PO DAILY 30 Days #30 tab 01/07/20 Apixaban [Eliquis] 5 mg PO BID 30 Days #60 tab 01/07/20 Furosemide [Lasix] 40 mg PO BIDLX 30 Days #60 tab 01/07/20 Insulin Glargine [Lantus SoloStar Pen] 10 units SUBCUT QHS pen 01/18/20 Metoprolol Tartrate [Lopressor (beta chidi)] 100 mg PO BID #60 tab 01/18/20 Pantoprazole Sodium [Protonix] 40 mg PO BID #60 tab 01/18/20 Following Prescrptions Were Given to Patient: Metoprolol Tartrate [Lopressor (beta chidi)] 100 mg PO BID #60 tab Transmission Status: Received by [facility]/pharmacy #[id number] Pantoprazole Sodium [Protonix] 40 mg PO BID #60 tab Transmission Status: Received by [facility] Primary Care Physician: Josué Rodriguez MD [Primary Care Provider] - Please follow up with your Primary Care Physician in: 1 Week Please Follow Up With: Ian Rondon MD When: As scheduled 01/20/2020 Please Follow Up With: Kelvin Heaton DO When: Sleep study 01/26/2020 at 8pm Please Follow Up With: Morro Loja MD When: 1 Week, call to establish for follow up 5 mm left kidney stone Please Follow Up With: Olegario Qiu MD When: Call for follow-up regarding outpatient scopes Disposition: Home Minutes spent on discharge:: 35 Patient Condition:: Stable Medical Necessity - Tobacco Use Smoking Status: Never smoker Meaningful Use Info Meaningful Use Diagnoses (Choose all that apply): CHF - CHF CAYDEN/ARB ordered at discharge?: Yes Documented LVEF (%): 65 <Audrey,Adams - Last Filed: 01/18/20 13:49> Discharge Date and Diagnosis - Secondary Discharge Diagnosis Chronic Problems (Last Reviewed 01/15/20 @ 15:[address] Olegario Qiu MD) Type 2 diabetes mellitus (Chronic) Hypercholesterolemia (Chronic) Obesity (Chronic) History of left heart catheterization (Chronic 01/04/20) 11/18/19 per DJN @ [facility]: Triple-vessel disease involving a totally occluded dominant right coronary artery, moderately severe disease noted in the left anterior descending artery, ramus intermedius, and circumflex artery. Recommend surgical consult for revascularization. 01/04/2020:Normal Left Ventricular systolic function; LVEF: by LV gram 65 %. Elevated Left Ventricular End Diastolic Pressure. Triple vessel CAD of the RCA, LAD and LCX/OM; Widely patent ARREDONDO To LAD Widely patent composite graft of SVG attached to free ISAK, with grafts to DIAG and OM; Widely patent SVG to PDA (small) with distal 60% anastamotic narrowing; no PCI recommended given recent CABG and anastomotic narrowing perfusing a small vessel. No overt lesion that required PCI; ST elevation was most likely due to pt's cardiac supply/demand mismatch due to rapid afib and outstripping L to R collaterals to previously known occluded RCA; not a true STEMI. 01/04/20 per DJN @ [facility] Type 2 diabetes mellitus (Chronic) Atherosclerosis of coronary artery of [place] heart without angina pectoris (Chronic) Chronic diastolic (congestive) heart failure (Chronic) Nonrheumatic aortic (valve) stenosis (Chronic) mild per echo 52877 Essential (primary) hypertension (Chronic) Hospital Course and Treatment Summary of Care Provided: This patient was seen in conjunction with Qian Mckeon NP. I have independently interviewed and examined the patient and reviewed pertinent historical, laboratory, and other data. Please refer to her note for patient's presentation, findings, and recommendations. 59-year-old male with past medical history of CAD status post recent CABG, recent atrial flutter/atrial fibrillation, who comes in with progressive acute combined hypercapnic respiratory failure secondary to acute and chronic CHF with preserved EF and presumed pneumonia. Patient was recently discharged and readmitted with progressive worsening shortness of breath. He was resumed on Lasix. He was transferred to ICU during this hospital stay on 01/14/20, monitored, improved and transferred back to PCU. He developed acute kidney injury for which Lasix was put on hold briefly and resumed at discharge. He completed antibiotics for severe sepsis secondary to Klebsiella UTI and pneumonia. Cardiology, pulmonology, nephrology were consulted during this hospital stay. Patient's creatinine was back to the baseline at the time of discharge. He required the use of BiPAP throughout his stay and has outpatient plan sleep study for later on in the month. He was reevaluated for oxygen and qualified for home oxygen. He will continue to be on oxygen [id number]. He will follow-up with cardiology, pulmonology and nephrology as well as his primary care doctor On the day of discharge, patient was seen and examined. Denied any new complaints. Seems to have lost 4 kg of fluid from 01/16/20 Physical Exam: Gen: Morbidly obese, comfortable, not pale, not jaundiced, alert oriented x3, on 2 L of oxygen CVS:HS I +II, regular, no murmurs RESP: Diminished at lung bases GI: BS present and normal, nontender, no palpable organs EXT: Bilateral lower extremity edema, Cayden wrap - Physical Exam Vitals/I&O's: Vital Signs Temp Pulse Resp BP Pulse Ox 98.0 F 86 20 H 127/64 H 90 01/18/20 08:27 01/18/20 08:27 01/18/20 08:27 01/18/20 08:27 01/18/20 08:28 Oxygen Flow Rate (L/min) [ 2 AMBULATION with Oxygen] Oxygen Flow Rate (L/min) 2 Oxygen Delivery Method Nasal Cannula Weight: 144.4 kg Body Mass Index (BMI) 45.1 Finger Stick Blood Glucose 128 Intake and Output for Last 24 Hours 01/16/20 01/17/20 01/18/20 23:59 23:59 23:59 Intake Total 1542.00 / 1542.00 1170.75 / 1170.75 220 / 220 Output Total 975 / 975 625 / 625 Balance 567.00 / 567.00 1170.75 / 1170.75 -405 / -405 Microbiology Past 72 Hours 01/13/20 18:40 Sputum, Expectorated/Coughed Gram Stain - Final 01/13/20 18:40 Sputum, Expectorated/Coughed Respiratory Culture - Final 01/15/20 12:15 Stool Stool Occult Blood (BRANDON) - Final Laboratory Results 01/17/20 16:40: POC Glucose 204 H 01/17/20 21:09: POC Glucose 210 H 01/18/20 05:24: WBC 10.5, RBC 3.83 L, Hgb 10.7 L, Hct 35.9 L, MCV 93.7, MCH 27.9, MCHC 29.8 L, RDW Std Deviation 49.9 H, RDW Coeff of [place] 14.6, Plt Count 532 H, MPV 10.0 01/18/20 05:24: Sodium 140, Potassium 3.7, Chloride 99, Carbon Dioxide 34.0 H, Anion Gap 7, BUN 26 H, Creatinine 0.98, Estim Creat Clear Calc 81.73, Est GFR (MDRD) Af Amer 100, Est GFR (MDRD) Non-Af 83, BUN/Creatinine Ratio 26.6 H, Glucose 191 H, Calcium 8.6 01/18/20 06:28: POC Glucose 166 H Inpatient E&M: 75263 Disch Hosp
--- NOTE | 2020-01-18 11:03 | PHA.DC.MC ---
Pharmacy Service has performed discharge medication reconciliation and counseling for this patient. 1. METOPROLOL TARTRATE 100MG PO BID 2. PANTOPRAZOLE 40MG PO BID The patient's discharge medication list was reviewed for discrepancies and discrepancies were resolved. Qian asked this PharmD to have the meds transferred from [facility] to [facility]. I called [facility] and they will call [facility]. Home Medications Atorvastatin Calcium [Lipitor] 80 mg PO QHS 11/17/19 Ipratropium [place] 1 spray INHALATION DAILY 11/17/19 Levocetirizine Dihydrochloride 5 mg PO DAILY 11/17/19 Losartan Potassium 50 mg PO DAILY 11/17/19 Temazepam 15 mg PO QHS PRN 11/17/19 Testosterone Cypionate 200 mg IM X1 11/17/19 metFORMIN HCl [Glucophage] 1,000 mg PO BIDCM 11/17/19 Aspirin [Aspirin, Baby] 2 tab PO DAILY@0800 01/04/20 Gabapentin [Neurontin] 200 mg PO DAILY 01/04/20 Magnesium Oxide 400 mg PO DAILY 01/04/20 Polyethylene Glycol 3350 [Miralax] 17 gm PO DAILY 01/04/20 Amiodarone HCl 200 mg PO DAILY 30 Days #30 tab 01/07/20 Apixaban [Eliquis] 5 mg PO BID 30 Days #60 tab 01/07/20 Furosemide [Lasix] 40 mg PO BIDLX 30 Days #60 tab 01/07/20 Insulin Glargine [Lantus SoloStar Pen] 10 units SUBCUT QHS pen 01/18/20 Metoprolol Tartrate [Lopressor (beta ronen)] 100 mg PO BID #60 tab 01/18/20 Pantoprazole Sodium [Protonix] 40 mg PO Q12 #60 tab 01/18/20 The patient was counseled on the following discharge medications and changes in medications for homegoing were reviewed. The Reason for Use, instructions for use, and potential side effects were reviewed for all new medications. The patient's questions regarding all of their medications were answered. The patient was able to verbally demonstrate an understanding of their discharge medications.
--- NOTE | 2020-01-18 11:43 | PCM.PN.REN ---
Subjective: No new complaints - Physical Exam Vitals/I&O's: Vital Signs Temp Pulse Resp BP Pulse Ox 98.0 F 86 20 H 127/64 H 90 01/18/20 08:27 01/18/20 08:27 01/18/20 08:27 01/18/20 08:27 01/18/20 08:28 Oxygen Flow Rate (L/min) [ 2 AMBULATION with Oxygen] Oxygen Flow Rate (L/min) 2 Oxygen Delivery Method Nasal Cannula Weight: 144.4 kg Body Mass Index (BMI) 45.1 Finger Stick Blood Glucose 128 Intake and Output for Last 24 Hours 01/16/20 01/17/20 01/18/20 23:59 23:59 23:59 Intake Total 1542.00 / 1542.00 1170.75 / 1170.75 220 / 220 Output Total 975 / 975 625 / 625 Balance 567.00 / 567.00 1170.75 / 1170.75 -405 / -405 General: Alert, Oriented x3, Cooperative HEENT: Atraumatic, PERRLA, EOMI, Normocephalic Neck: Supple, No JVD, Negative Carotid Bruits Lungs: Clear to auscultation, Normal air movement Cardiovascular: Regular rate, No murmurs Abdomen: Bowel Sounds Present, Soft, Non Tender Extremities: No edema, Capillary Refill Less than 3 Seconds Skin: No rashes, No breakdown Musculoskeletal: No Tenderness to Palpation of Joints or Extremities Neurological: Cranial nerves II-XII grossly intact Psych/Mental Status: Normal Affect, Appropriate Microbiology Past 72 Hours 01/13/20 18:40 Sputum, Expectorated/Coughed Gram Stain - Final 01/13/20 18:40 Sputum, Expectorated/Coughed Respiratory Culture - Final 01/15/20 12:15 Stool Stool Occult Blood (BRANDON) - Final Laboratory Results 01/17/20 12:18: POC Glucose 190 H 01/17/20 16:40: POC Glucose 204 H 01/17/20 21:09: POC Glucose 210 H 01/18/20 05:24: WBC 10.5, RBC 3.83 L, Hgb 10.7 L, Hct 35.9 L, MCV 93.7, MCH 27.9, MCHC 29.8 L, RDW Std Deviation 49.9 H, RDW Coeff of [place] 14.6, Plt Count 532 H, MPV 10.0 01/18/20 05:24: Sodium 140, Potassium 3.7, Chloride 99, Carbon Dioxide 34.0 H, Anion Gap 7, BUN 26 H, Creatinine 0.98, Estim Creat Clear Calc 81.73, Est GFR (MDRD) Af Amer 100, Est GFR (MDRD) Non-Af 83, BUN/Creatinine Ratio 26.6 H, Glucose 191 H, Calcium 8.6 01/18/20 06:28: POC Glucose 166 H Medical Necessity - Tobacco Use Smoking Status: Never smoker Assessment/Plan All Active Problems (Last Reviewed 01/15/20 @ 15:[address] Olegario Qiu MD) Atrial flutter with rapid ventricular response (Acute) Anemia (Acute) Respiratory failure with hypoxia and hypercapnia (Acute) Atrial fibrillation with rapid ventricular response (Acute) S/P CABG x 4 (Acute) Acute exacerbation of CHF (congestive heart failure) (Resolved) ROBERT CKD 3 volume overload recent CABG clinically significantly better renal US shows non obstructive stone UA shows trace protein and blood, not very impressive started back on lasix 40 mg BID dc today
--- NOTE | 2020-01-19 15:14 | CASEMGMT ---
Addendum entered by Catie Scruggs 01/19/20 15:19: ADITI SAINI received call back from patient. He states that he is tired. Patient had no questions or concerns regarding discharge instructions and was able to fill prescriptions without any issues. Patient states that C has been out today to see patient. Patient had no further questions or concerns at this time. Original Note: ADITI SAINI Discharge Follow-up Phone Call: VICTOR MANUEL: 15 Strata: 4 Call Date: 01/19/2020 Discharge Date: 01/18/2020 Time of Call: 1515 Duration: 1 min Admitting Diagnosis: Acute Respiratory Failure, CHF exacerbation, UTI ADITI SAINI attempted to complete follow-up phone call after recent hospitalization. No answer, voice message left with return contact information. Patient had follow-up appts scheduled prior to discharge. HHC resumed at discharge.
== END 2020-01-18 11:41 | disposition home or self-care (01) | DRG 208 ==
LOC: ED 08:04 → ICU 09:45 → PCU 01-12 12:48 → ICU 01-14 16:15 → PCU 01-18 07:11
PROVIDERS: Internal Medicine; Internal Medicine Critical Care Medicine; Nurse Practitioner Family; Admitting Provider Student in an Organized Health Care Education/Training Program; Emergency Provider Emergency Medicine; PCP Family Medicine; Visit Provider Internal Medicine
DX: J96.21 Acute and chronic respiratory failure with hypoxia (principal); A41.59 Other Gram-negative sepsis; I50.33 Acute on chronic diastolic (congestive) heart failure; I21.A1 Myocardial infarction type 2; J18.9 Pneumonia, unspecified organism; N17.0 Acute kidney failure with tubular necrosis; R65.20 Severe sepsis without septic shock; N39.0 Urinary tract infection, site not specified; I13.0 Hypertensive heart and chronic kidney disease with heart failure and stage 1 through stage 4 chronic kidney disease, or unspecified chronic kidney disease; Z68.42 Body mass index [BMI] 45.0-49.9, adult; I48.20 Chronic atrial fibrillation, unspecified; I48.92 Unspecified atrial flutter; J96.22 Acute and chronic respiratory failure with hypercapnia; Z95.1 Presence of aortocoronary bypass graft; I25.10 Atherosclerotic heart disease of native coronary artery without angina pectoris; K59.00 Constipation, unspecified; N18.3 Chronic kidney disease, stage 3 (moderate); E11.22 Type 2 diabetes mellitus with diabetic chronic kidney disease; E78.5 Hyperlipidemia, unspecified; E66.01 Morbid (severe) obesity due to excess calories; E87.5 Hyperkalemia; Z79.4 Long term (current) use of insulin; Z79.899 Other long term (current) drug therapy; Z79.82 Long term (current) use of aspirin; Z79.02 Long term (current) use of antithrombotics/antiplatelets; Y95 Nosocomial condition; D47.3 Essential (hemorrhagic) thrombocythemia; B96.1 Klebsiella pneumoniae [K. pneumoniae] as the cause of diseases classified elsewhere; I95.9 Hypotension, unspecified; N20.0 Calculus of kidney; D50.9 Iron deficiency anemia, unspecified
CPT/HCPCS: 31720; 36415; 36600; 51702; 71045; 71046; 71275; 74018; 74176; 76770; 80048; 80053; 80202; 81001; 82274; 82550; 82570; 82728; 82803; 82947; 82962; 83605; 83735; 83880; 84100; 84300; 84478; 84484; 85014; 85018; 85025; 85027; 85610; 85730; 86140; 86850; 86900; 86901; 86920; 86922; 87040; 87070; 87077; 87086; 87088; 87186; 87205; 87449; 87635; 87641; 93005; 93308; 94002; 94003; 94640; 94660; 96365; 97116; 97162; 97166; 97530; 97802; 97803; 99251; 99285; J7030; J7040; J7050; P9016; Q9957; Q9967; A4216; C8924; G0463; J0610; J1940; U0004

== ENCOUNTER 2020-01-20 16:17 | Inpatient (IN) | payer OTHER, SELFPAY ==
[2020-01-20] VITALS (29 sets, daily range): BP systolic 65–166; BP diastolic 38–126; PULSE 60–98; RESP 8–33; TEMP 36.8–38.6; O2SAT 83–100; BMI 44.3; BMI 44.4; BMI 44.6
[2020-01-20] MEDS: Etomidate 20 MG/10 ML Vial IV (16:25)
[2020-01-20] MEDS: Rocuronium Bromide 50 MG/5 ML Vial 100 MG IV (16:25)
--- NOTE | 2020-01-20 16:34 | EKG12_ITS ---
Test Reason : UNRESPONSIVE Blood Pressure : / mmHG Vent. Rate : 093 BPM Atrial Rate : 258 BPM P-R Int : 000 ms QRS Dur : 096 ms QT Int : 340 ms P-R-T Axes : 000 161 076 degrees QTc Int : 422 ms Atrial flutter with variable A-V block with premature ventricular or aberrantly conducted complexes Left posterior fascicular block Inferior infarct , age undetermined Abnormal ECG Confirmed by JOHN CHAPPELL, PHYLLIS ([id number]), content editor RAGHAVENDRA MARCOS ([id number]) on 01/24/2020 3:17:30 PM Referred By: YESY Confirmed By:ROSALINDA LOPEZ MD
[2020-01-20 16:49] LABS: Absolute Lymphocyte Count 0.76 X10^3/uL (0.83-4.51); Absolute Neutrophil Count 9.4 X10^3/uL (2.0-7.7); Basophil# 0.05 X10^3/uL; Basophil% 0.5 % (0-1); Eosinophil# 0.05 X10^3/uL; Eosinophils% 0.5 % (0-5); Hematocrit 39.9 % (40-54); Lymphocyte # 0.76 X10^3/ul (4.0); Lymphocyte % 6.9 % (19-41); Mean Corp Hgb Conc 27.6 g/dL (32-36); Mean Corpuscular Hgb 28.1 pg (27.0-32.0); Mean Platelet Vol. 10.1 fl (6.2-12.0); Monocyte# 0.58 X10^3/uL; Monocyte% 5.3 % (0-10); NRBC Flagged by Analyzer 0 % (0-5); Neutrophil # 9.41 X10^3/uL (2.7-7.7); Neutrophil % 85.3 % (47-70); Platelet Count 652 K/mm3 (150-450); RBC Distribution Width CV 14.2 % (11.6-14.6); Red Blood Count 3.91 M/mm3 (4.6-6.2)
--- NOTE | 2020-01-20 16:50 | RAD_ITS ---
STUDY: X-RAY CHEST REASON FOR EXAM: Male, 59 years old. et tube placement TECHNIQUE: Single frontal view of the chest. COMPARISON: 01/14/2020 FINDINGS: Endotracheal tube tip is 4.7 cm from kyra. Enteric tube tip is excluded from view in the abdomen. Median sternotomy wires and plates. Stable bilateral alveolar disease and bilateral pleural effusions, more extensive on the left. Stable cardiomediastinal silhouette. Normal mediastinum and riana. Normal visualized pulmonary arteries. Normal visualized aortic arch and descending thoracic aorta. Normal visualized thoracic spine. Normal visualized ribs, clavicles, and shoulders. There is no demonstrated abnormality of the visualized soft tissue structures of the upper abdomen. RAD/Chest 1 View (Portable) IMPRESSION: Endotracheal tube tip is 4.7 cm from kyra. Stable bilateral alveolar disease and bilateral pleural effusions, more extensive on the left. Electronically Signed: Shashank Bustamante MD at 17:10 EDT Tel , Service support ,
--- NOTE | 2020-01-20 16:50 | CM.ED ---
Social Work Consult: Support Telephone call to patient spouse, Shirin. Support provided. [place] stating to have family with her. [place] voicing no further questions. Doctor to call [place] with patient update when able, [place] updated to this. Confirming contact number for [place]. This social service liaison provided Dr. Merino with contact number for [place]. Yuan LEON, ERIS
--- NOTE | 2020-01-20 16:57 | RAD_ITS ---
STUDY: X-RAY - ABDOMEN/PELVIS REASON FOR EXAM: Male, 59 years old. og placement TECHNIQUE: Single AP view of the abdomen / pelvis. COMPARISON: 01/14/2020 FINDINGS: Enteric tube tip excluded from view in the mid to lower abdomen. Median sternotomy wires and plates. Visualized bowel gas pattern is nonobstructive in appearance. Bilateral pleural effusions. Prominent cardiac silhouette. No free air is visible. RAD/Abdomen Single View IMPRESSION: Enteric tube tip excluded from view in the mid to lower abdomen. Electronically Signed: Shashank Bustamante MD at 17:09 EDT Tel , Service support ,
[2020-01-20 17:01] LABS: Lactic Acid 0.9 mmol/L (0.4-1.9)
[2020-01-20 17:09] LABS: ALB/GLOB Ratio 0.3 RATIO (0.9-2.4); AST(SGOT) 29 U/L (15-37); Alanine Aminotransfer ALT/SGPT 39 U/L (16-61); Albumin, Serum 1.9 g/dL (3.2-5.0); Alkaline Phosphatase 97 U/L (45-117); Anion Gap 2 (5-15); BUN 32 mg/dL (7-18); BUN/Creat Ratio 18.9 RATIO (10-20); Calcium,Total 8.6 mg/dL (8.5-10.1); Chloride 96 mmol/L (98-107); Creatinine, Serum 1.69 mg/dL (0.70-1.30); EST Glomerular Filtration Rate 44 mL/min (>60); Est Glom Filt Rate - Afr Amer 53 mL/min (>60); Estimated Creatinine Clearance 50.38 ml/min; Globulin 5.6 g/dL (2.2-4.2); Glucose 256 mg/dL (74-106); Potassium 5.2 mmol/L (3.5-5.1); Protein, Total 7.5 g/dL (6.4-8.2); Sodium Level 136 mmol/L (136-145)
[2020-01-20 17:10] LABS: BNP,B-Type NATRIURETIC PEPTIDE 548.4 pg/mL (0-100)
--- NOTE | 2020-01-20 17:17 | CPS ---
Critical CO2 value of 73.1 Dr. Merino aware
--- NOTE | 2020-01-20 17:28 | RAD_ITS ---
STUDY: X-RAY CHEST REASON FOR EXAM: Male, 59 years old. line placement TECHNIQUE: Single frontal view of the chest. COMPARISON: 4:40 PM FINDINGS: Right central catheter tip in right atrium. If SVC location is desired, withdrawal of the catheter by 3 to 4 cm. The other support devices are stable. Median sternotomy plates and wires. Stable left basilar alveolar disease and bilateral pleural effusions. Stable cardiomediastinal silhouette. Normal mediastinum and riana. Normal visualized pulmonary arteries. Normal visualized aortic arch and descending thoracic aorta. Normal visualized thoracic spine. Remote right rib trauma. There is no demonstrated abnormality of the visualized soft tissue structures of the upper abdomen. RAD/Chest 1 View (Portable) IMPRESSION: Right central catheter tip in right atrium. If SVC location is desired, withdrawal of the catheter by 3 to 4 cm. Stable left basilar alveolar disease and bilateral pleural effusions. There is no demonstrated pleural abnormality. Electronically Signed: Shashank Bustamante MD at 17:54 EDT Tel , Service support ,
[2020-01-20] MEDS: Albuterol 2.5 MG/3 ML VIAL.NEB. INHALATION ×3 (17:34→17:35)
[2020-01-20] MEDS: fentaNYL 100 MCG/2 ML Ampul IV (17:42)
[2020-01-20 17:49] LABS: Mucous, Urine 0 SEEN /hpf (<or=2+); Squamous Epithelial Cells - UA 0 SEEN /hpf (0-5)
[2020-01-20] MEDS: Etomidate 20 MG/10 ML Vial 10 MG IV (17:55)
[2020-01-20 17:57] LABS: Color, Urine Yellow (Yellow); Glucose, Dipstick Normal (Normal); Ketone-Dipstick Negative (Negative); Leukocyte Esterase-Dipstick Negative /ul (Negative); Nitrite-Dipstick Negative (Negative); Occult Blood-Urine 10 /ul (Negative); Protein-Dipstick 30 mg/dl (Negative); Specific Gravity, Urine 1.025 (1.002-1.030); Urine Bilirubin Dipstick Negative (Negative); Urine Clarity Cloudy (Clear); Urine Urobilinogen Normal (Normal)
[2020-01-20 18:00] LABS: Base Excess 10 mmol/L (-2 to +2); Bicarbonate 36.3 mmol/L (22-26); PO2 144 mmHG (75-100); SO2 99 % (95-99); Total Carbon Dioxide 38 mmol/L; pCO2 73.1 mmHg (35-45)
--- NOTE | 2020-01-20 18:03 | ED.VIS.GEN ---
History of Present Illness Chief Complaint: Unresponsive Informant: Family, Significant Other, Tack Cleaner Limited by: Coma Onset: Today Context: Sudden Onset Timing: Continuous Current Severity: Severe Maximum Severity: Severe Narrative: The patient is a 59-year-old male who cannot give any history given severe respiratory distress. Patient's history is gathered from review of the records. He does have a history of four-vessel bypass done at [facility] in November. The patient was admitted with pulmonary edema at the end of December. He had a repeat heart catheterization which was negative for ischemic change, but was in A. fib RVR. This was thought to be the cause of his edema. Patient was diuresed and discharged home. He returned here 2 days later with worsening edema and hypercapnia. He was placed on BiPAP, but did not tolerate it. He was then intubated, diuresed, and able to be transitioned to nasal cannula. The patient was discharged from this facility 2 days ago. The patient has been at home. He had a virtual visit with cardiology today. He was complaining of increasing dyspnea lower extremity edema. Shortly thereafter his visit, he became acutely dyspneic and unresponsive. Squad was called. He was found to be rather significantly hypoxic and hypercapnic. He was placed on CPAP and brought in. On arrival, the patient is in distress so no further history was able to be gathered. Prior similar symptoms: Yes Recent Illness/Hospitalization: Yes Past Medical History - Allergies and Home Meds Allergies/Adverse Reactions: Allergies No Known Allergies Allergy (Verified 01/20/20 08:35) Primary Care Physician: Josué Rodriguez MD [Primary Care Provider] - Prior records reviewed: Yes Past Medical History: - - Coronary vascular disease, CHF, acute kidney injury, atrial flutter Surgical History: coronary bypass surgery Smoking Status: Never smoker - Family History Maternal Family History: Family History (Last Reviewed 01/20/20 @ 09:[address] Ian Rondon MD) Mother Hypertension Father Hypertension Heart disease Family History: Reports: Cancer - breast cancer, Hypertension Paternal Family History: Family History (Last Reviewed 01/20/20 @ 09:[address] Ian Rondon MD) Mother Hypertension Father Hypertension Heart disease Family History: Reports: Heart Disease, Hypertension Review of Systems ROS: Unable to Obtain Physical Exam Vital Signs/Narrative: Vital Signs Temp Pulse Resp BP Pulse Ox 01/20/20 17:35 90 18 01/20/20 16:30 90 18 100 01/20/20 16:23 90 33 H 135/82 H 90 01/20/20 16:18 98.7 F Inital Vital Signs reviewed: Yes General: Well developed, Obese, Acute Distress Head: Normocephalic, Atraumatic Eyes: Perrl, EOMI ENT: Moist mucous membranes, No rhinorrhea Neck: Supple, Nontender. Negative for: No JVD Cardiovascular: Regular rhythm, No murmurs, Irregular Respiratory: Chest nontender, Rales, Diminished, Retractions Abdomen: Soft, Nontender, Nondistended, Normal bowel sounds Back: Nontender, Normal Inspection Extremities: Nontender, Edema Skin: No rash, Cyanosis Neurological: Confused, Disoriented, Lethargic Diagnostic/Tx/Re-eval - Medical Decision Making The patient presents in acute respiratory distress. Decision was made to intubate him emergently. He was intubated with an 8-0 tube with a glide scope. There was good color change and bilateral breath sounds. X-ray did confirm placement of the tube. He was mildly hypertensive on arrival, but after intubation became hypotensive. I did place ultrasound-guided right IJ. There was small hematoma, but the x-ray shows no pneumothorax and good placement. Broad metabolic work-up was pursued. EKG shows atrial flutter with intermittent conduction, but no acute ischemia. Screening labs do show mild kidney disease, mild hyperkalemia, but his hemoglobin has improved. X-ray does show florid pulmonary edema with a left lower lobe infiltrate. The patient was covered with broad-spectrum antibiotics. He was discussed with cardiology, ICU, and the hospitalist. He will be admitted to the ICU at this time. Impression 1. Acute respiratory failure 2. Hypercapnia 3. Acute decompensated CHF 4. HCAP 5. History of CABG 6. Intubation by ED physician 7. Ultrasound-guided central line by ED physician - Critical Care Time Critical care time (excluding procedures): 30-74 minutes, Discussing w/Patient &/or Family/Glass Processing Worker, Discussing w/Consultants, Arranging Admission or Transfer, Performing Direct Patient Care at Bedside ED Disposition - Plan for ED Patient: Referrals: Josué Rodriguez MD [Primary Care Provider] -
--- NOTE | 2020-01-20 18:04 | NURSING ---
ICU PAINTSIL ACUTE RESP FAILURE
[2020-01-20 18:06] LABS: Allen Test POS; Blood Gas Specimen Type ART; FI02 100; Mode A-C; PEEP 10; RR 18; SITE L RADIAL; Vt 500
[2020-01-20] MEDS: fentaNYL drip 100 ML 5 MCG IV (18:06)
[2020-01-20 18:07] LABS: Time Given 1545
--- NOTE | 2020-01-20 18:09 | CPS ---
CRITICAL RESULTS GIVEN TO DR. DOOLEY BY HAND IN ED AT [id number]
[2020-01-20 18:23] LABS: Fine Granular Cast- Urine 5-10 SEEN /lpf (0-5)
[2020-01-20 18:24] LABS: Hyaline Cast 10-25 SEEN /lpf (0-5)
--- NOTE | 2020-01-20 18:24 | PCM.HP.STD ---
Problem List (1) Respiratory failure with hypoxia and hypercapnia Status: Chronic Qualifiers: Chronicity: acute on chronic Qualified Code(s): J96.21 - Acute and chronic respiratory failure with hypoxia; J96.22 - Acute and chronic respiratory failure with hypercapnia (2) History of non-ST elevation myocardial infarction (NSTEMI) Status: Chronic Comment: 11/17/2019, 01/04/2020 (3) Atherosclerosis of coronary artery of [place] heart without angina pectoris Status: Chronic Qualifiers: Coronary Disease-Associated Artery/Lesion type: unspecified vessel or lesion type Qualified Code(s): I25.10 - Atherosclerotic heart disease of [place] coronary artery without angina pectoris (4) H/O coronary artery bypass surgery Status: Chronic Comment: CABG x 4: ARREDONDO-LAD, Free ISAK from the D1 SVG-OM1, SVG-D1, SVG-RPDA 12/26/19 (5) Chronic diastolic (congestive) heart failure Status: Chronic (6) Secondary pulmonary arterial hypertension Status: Chronic (7) Essential (primary) hypertension Status: Chronic (8) Anemia Status: Chronic Qualifiers: Anemia type: iron deficiency Iron deficiency anemia type: unspecified iron deficiency Qualified Code(s): D50.9 - Iron deficiency anemia, unspecified History of Present Illness Date of Admission: 01/20/20 Chief Complaint: Altered mental status, syncope - 1 day The patient is a 59 year old M with PMHx of CAD status post CABG, newly diagnosed atrial fibrillation, chronic diastolic CHF, hypertension, type II DM, recently discharged on 01/18/20 after a long and tortuous hospital stay for hypercapnic respiratory failure, acute on chronic CHF, severe anemia. Patient was intubated on the day of admission(01/09/20). He was later extubated and managed on BiPAP which he used mostly during the day and also at night. Patient however could not be discharged home on BiPAP because the earliest date for sleep study was 01/31/20. Acute kidney injury as well as his anemia had improved and was stable at the time of discharge. Patient reportedly was not feeling well at home since discharge. 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 Patient reportedly after the visit had a syncopal episode in the EMS was called. In the ED, patient was found to be minimally responsive on CPAP and subsequently intubated. Labs in the ED showed temperature of 90 8.7F, heart rate 90, blood pressure 135/82, respiratory rate was 33, SPO2 was 90% on venturi mask. His WBC count 11.0, hemoglobin 11.0, platelets 652, pH was 7.30, PO2 100%, PCO2 of 73.1, sodium was 136, chloride 96, potassium 5.2, bicarbonate 38, BUN 32, creatinine 1.69, baseline creatinine 0.98, BNPep was 548.4 Chest X-ray showed bilateral alveolar disease and bilateral pleural effusions. Past Medical History Past Medical History (Chronic Problems): Chronic Problems (Last Reviewed 01/20/20 @ 09:[address] Ian Rondon MD) Respiratory failure with hypoxia and hypercapnia (Chronic) History of non-ST elevation myocardial infarction (NSTEMI) (Chronic 01/04/20) 11/17/2019, 01/04/2020 Atherosclerosis of coronary artery of [place] heart without angina pectoris (Chronic) H/O coronary artery bypass surgery (Chronic 12/26/19) CABG x 4: ARREDONDO-LAD, Free ISAK from the D1 SVG-OM1, SVG-D1, SVG-RPDA 12/26/19 Chronic diastolic (congestive) heart failure (Chronic) Secondary pulmonary arterial hypertension (Chronic) Essential (primary) hypertension (Chronic) Hypercholesterolemia (Chronic) Anemia (Chronic) Medical History: Medical History (Last Reviewed 01/20/20 @ 09:[address] Ian Rondon MD) Respiratory failure with hypoxia and hypercapnia (Chronic) J96.91, J96.92 History of non-ST elevation myocardial infarction (NSTEMI) (Chronic) Onset Date: 01/04/20 I25.2 11/17/2019, 01/04/2020 Atherosclerosis of coronary artery of [place] heart without angina pectoris (Chronic) I25.10 Chronic diastolic (congestive) heart failure (Chronic) I50.32 Secondary pulmonary arterial hypertension (Chronic) I27.21 Essential (primary) hypertension (Chronic) I10 Hypercholesterolemia (Chronic) E78.00 Anemia (Chronic) D64.9 Thrombocytosis (Acute) D47.3 Nonrheumatic aortic (valve) stenosis I35.0 mild Obesity E66.9 Type 2 diabetes mellitus E11.9 Acute exacerbation of CHF (congestive heart failure) (Resolved) I50.9 Acute respiratory failure with hypoxia Onset Date: 11/17/19 J96.01 Atrial fibrillation with rapid ventricular response Onset Date: 01/04/20 I48.91 Elevated troponin Onset Date: 11/17/19 R79.89 Atrial flutter with rapid ventricular response I48.92 Arteriosclerotic cardiovascular disease (Inactive) I25.10 Triple vessel coronary artery disease (Inactive) I25.10 Allergies No Known Allergies Allergy (Verified 01/20/20 08:35) Home Medications: Ambulatory Orders Medication Instructions Recorded Atorvastatin Calcium [Lipitor] 80 mg PO QHS 11/17/19 Ipratropium Magnolia 0.06% 1 spray INHALATION DAILY PRN PRN 11/17/19 [ATROVENT NASAL SPRAY] Temazepam 15 mg PO QHS PRN PRN 11/17/19 Gabapentin [Neurontin] 200 mg PO DAILY 01/04/20 Magnesium Oxide 400 mg PO DAILY 01/04/20 Polyethylene Glycol 3350 [Miralax] 17 gm PO DAILY 01/04/20 Amiodarone HCl 200 mg PO DAILY 01/20/20 Apixaban [Eliquis] 5 mg PO BID 01/20/20 Furosemide 40 mg PO DAILY@1500 01/20/20 Insulin Glargine [Lantus SoloStar 10 units SUBCUT QHS 01/20/20 Pen] Metoprolol Tartrate [Lopressor 100 mg PO BID 01/20/20 (beta ronen)] Pantoprazole Sodium [Protonix] 40 mg PO BID 01/20/20 aspirin 81 mg chewable tablet 1 tab PO DAILY@0800 tab 01/20/20 furosemide 40 mg tablet 80 mg PO DAILY@0900 tab 01/20/20 levocetirizine 5 mg tablet 5 mg PO DAILY 01/20/20 losartan 50 mg tablet 50 mg PO DAILY 01/20/20 metformin 1,000 mg tablet 1,000 mg PO BIDCM tab 01/20/20 Surgical History: Surgical History (Last Reviewed 01/20/20 @ 09:[address] Ian Rondon MD) H/O coronary artery bypass surgery (Chronic) Onset Date: 12/26/19 Z95.1 CABG x 4: ARREDONDO-LAD, Free ISAK from the D1 SVG-OM1, SVG-D1, SVG-RPDA 12/26/19 History of left heart catheterization Onset Date: 01/04/20 Z98.890 11/18/2019, 01/04/20 Surgical History: coronary bypass surgery Psychiatric History: No pertinent psych hx Smoking Status: Never smoker - *Family History Maternal Family History: Family History (Last Reviewed 01/20/20 @ 09:[address] Ian Rondon MD) Mother Hypertension Father Hypertension Heart disease History Items: Cancer - breast cancer, Hypertension Paternal Family History: Family History (Last Reviewed 01/20/20 @ 09:[address] Ian Rondon MD) Mother Hypertension Father Hypertension Heart disease History Items: Heart Disease, Hypertension Review of Systems Cardiovascular: Denies: Chest Pain Respiratory: Reports: Cough Unable to obtain accurate/complete ROS d/t: Unable to do review of system because patient is intubated VTE Information - Inpt Only VTE Present on Admission: No VTE Pharm Prophylaxis ordered?: Yes Patient Problems: Active and Suspected Problems (Last Reviewed 01/20/20 @ 09:[address] Ian Rondon MD) Thrombocytosis (Acute) - Physical Exam Vitals/I&O's: Vital Signs Temp Pulse Resp BP Pulse Ox 98.7 F 90 18 135/82 H 100 01/20/20 16:18 01/20/20 17:35 01/20/20 17:35 01/20/20 16:23 01/20/20 16:30 Oxygen Flow Rate (L/min) 15 Oxygen Delivery Method Venturi Mask Weight: 148.7 kg Body Mass Index (BMI) 44.4 Finger Stick Blood Glucose 128 General: Alert, Lethargic, - - intubated, on mechanical ventilator, sedated HEENT: Atraumatic, PERRLA, EOMI, Normocephalic Oral: Moist Mucosa Neck: Supple Lungs: Diminished Cardiovascular: Regular rate, Regular Rhythm, Normal S1, Normal S2, Irregular Rate Abdomen: Bowel Sounds Present, Soft, Non Tender, No Hepato-splenomegaly, Distended, Obese Extremities: Edema - Bipedal edema +1-2 Skin: No rashes Musculoskeletal: No Tenderness to Palpation of Joints or Extremities Lymphatic: No Cervical, Supraclavicular, or Inguinal Adenopathy Neurological: Cranial nerves II-XII grossly intact, Neuro grossly intact Psych/Mental Status: Normal Affect Laboratory Results 01/20/20 16:20: WBC 11.0, RBC 3.91 L, Hgb 11.0 L, Hct 39.9 L, MCV 102.0 H D, MCH 28.1, MCHC 27.6 L D, RDW Std Deviation 53.0 H, RDW Coeff of [place] 14.2, Plt Count 652 H, MPV 10.1, Immature Gran % (Auto) 1.500 H, Neut % (Auto) 85.3 H, Lymph % (Auto) 6.9 L, Motley % (Auto) 5.3, Eos % (Auto) 0.5, Baso % (Auto) 0.5, Absolute Neuts (auto) 9.4 H, Absolute Lymphs (auto) 0.76 L, Nucleated RBC % 0 01/20/20 16:20: Sodium 136, Potassium 5.2 H, Chloride 96 L, Carbon Dioxide 38.0 H, Anion Gap 2 L, BUN 32 H, Creatinine 1.69 H, Estim Creat Clear Calc 50.38, Est GFR (MDRD) Af Amer 53 L, Est GFR (MDRD) Non-Af 44 L, BUN/Creatinine Ratio 18.9, Glucose 256 H, Calcium 8.6, Total Bilirubin 0.30, AST 29, ALT 39, Alkaline Phosphatase 97, Troponin I 0.051 H, Total Protein 7.5, Albumin 1.9 L, Globulin 5.6 H, Albumin/Globulin Ratio 0.3 L 01/20/20 16:20: Lactic Acid 0.9 01/20/20 16:20: B-Natriuretic Peptide 548.4 H 01/20/20 16:43: COVID-19 ([facility]) Cancelled 01/20/20 17:04: Specimen Type ART, Sample Site L RADIAL, pH 7.30 L, Bicarbonate Actual 36.3 H, POC Total CO2 38, Base Excess 10 H, O2 Saturation 99, O2 % 100, ABG pCO2 73.1 H*, ABG pO2 144 H, Gustavo Test POS, Respiration Rate 18, Minute Volume 9.00, Vent Mode A-C, Tidal Volume 500, POC PEEP 10, Blood Gas Notified Whom ED , Blood Gas Notified Time 1545 01/20/20 17:40: Urine Color Yellow, Urine Clarity Cloudy, Urine pH 6.0, Ur Specific Bennett 1.025, Urine Protein 30 H, Urine Glucose (UA) Normal, Urine Ketones Negative, Urine Occult Blood 10 H, Urine Nitrite Negative, Urine Bilirubin Negative, Urine Urobilinogen Normal, Ur Leukocyte Esterase Negative, Urine RBC Pending, Urine WBC Pending, Ur Squamous Epith Cells Pending, Urine Bacteria Pending, Urine Mucus Pending Current Medications Propofol (Diprivan) 1,000 mg in 100 mls @ 8.922 mls/hr CONT INF .[id number] [facility]; Protocol Vancomycin HCl 2,000 mg/ (Sodium Chloride) 540 mls @ 250 mls/hr IV X1 ONE Stop: 01/20/20 20:09 Fentanyl () 100 mls @ 5 mls/hr IV UD [facility]; Protocol Norepinephrine Bitartrate 8 mg (/ Sodium Chloride) 250 mls @ 9.375 mls/hr CONT INF .[id number] [facility]; Protocol Assessment/Plan All Active Problems (Last Reviewed 01/20/20 @ 09:[address] Ian Rondon MD) Thrombocytosis (Acute) Acute exacerbation of CHF (congestive heart failure) (Resolved) 59 year old M with PMHx of CAD status post CABG, atrial fibrillation, chronic diastolic CHF, hypertension, type II DM, recently discharged on 01/18/20 comes in with worsening shortness of breath and has been intubated today 01/20/20. 1. Acute combined respiratory failure secondary to CO2 retention/acute on chronic diastolic CHF/undiagnosed VASILIY Patient was on BiPAP during the last hospital stay. Fortunately BiPAP could not be arranged for him on discharge because he needed a sleep study He has sleep study was 01/31/20. Patient was discharged on oxygen Comes in with respiratory acidosis and has been intubated; patient had a drop in blood pressure soon after start of sedatives, started on levophed via RIJ Continue mechanical ventilator, numerical control nesting operator consult 2. ROBERT, admitting creatinine 1.69, likely prerenal, Discharge at baseline creatinine 0.98 Would hold off Lasix for tonight Repeat blood work, resume Lasix in a.m. Nephrology consult 3. Hyperkalemia, K 5.2, likely secondary to #2 Repeat blood work in a.m. 4. Acute on chronic diastolic CHF, Patient had to be off Lasix in the last admission on account of ROBERT Resumed on oral Lasix 2 days before discharge. 5. CAD status post CABG/atrial fibrillation, rate controlled/hypertension, all remain stable Will continue on aspirin, apixaban, amiodarone, statin Will hold off on losartan on account of current hypotension 6. Type II DM, on insulin and metformin Will hold both; continue with blood glucose checks with insulin sliding scale every 6 hourly 7. DVT prophylaxis-apixaban Inpatient E&M: 50907 In Hosp L3
[2020-01-20 18:26] LABS: Amorphous Sediment 1+
--- NOTE | 2020-01-20 18:26 | NURSING ---
ICU 1
[2020-01-20 18:27] LABS: Calcium Oxalate Crystals Ur 1+ /hpf (<or=2+); Red Blood Cells-Urine 0-5 SEEN /hpf (0-5); White Blood Cells 0-5 SEEN /hpf (0-5)
[2020-01-20 18:28] LABS: Bacteria RARE /hpf (None Seen); Renal Epithelial Cells 0-5 SEEN /hpf (0-5)
[2020-01-20] MEDS: Propofol 10MG/Ml 1,000 MG/100 ML Bottle 8.9 MG CONT INF (18:42)
[2020-01-20] MEDS: Ipratropium/Albuterol Sulfate 3 ML AMPUL.NEB INHALATION (23:24)
[2020-01-20] MEDS: 0.9% Saline Lock 10 ML Syringe IV (23:54)
[2020-01-21] VITALS (51 sets, daily range): BP systolic 72–146; BP diastolic 48–81; PULSE 83–114; RESP 18–20; TEMP 37.3–38.6; O2SAT 88–100; BMI 44.6
[2020-01-21] MEDS: Chlorhexidine 15 ML PO ×3 (00:05→21:34)
[2020-01-21] MEDS: Insulin Lispro 100 UNIT/ML INSULN.PEN SC ×5 (00:24→21:22)
[2020-01-21 00:36] LABS: Bedside Glucose 175 mg/dL (70-110)
[2020-01-21] MEDS: Propofol 10MG/Ml 1,000 MG/100 ML Bottle 9 MG CONT INF ×3 (00:56→22:28)
[2020-01-21] MEDS: Ipratropium/Albuterol Sulfate 3 ML AMPUL.NEB INHALATION ×6 (02:48→23:10)
[2020-01-21 04:12] LABS: Absolute Lymphocyte Count 1.21 X10^3/uL (0.83-4.51); Basophil# 0.06 X10^3/uL; Basophil% 0.5 % (0-1); Eosinophil# 0.26 X10^3/uL; Eosinophils% 2.3 % (0-5); Hemoglobin 9.5 g/dL (13.0-16.5); Lymphocyte # 1.21 X10^3/ul (4.0); Lymphocyte % 10.6 % (19-41); Mean Corp Hgb Conc 29.7 g/dL (32-36); Mean Corpuscular Hgb 28.4 pg (27.0-32.0); Mean Corpuscular Volume 95.5 fL (80-94); Mean Platelet Vol. 10.1 fl (6.2-12.0); Monocyte# 0.74 X10^3/uL; Monocyte% 6.5 % (0-10); NRBC Flagged by Analyzer 0 % (0-5); Neutrophil % 78.9 % (47-70); Platelet Count 623 K/mm3 (150-450); RBC Distribution Width CV 14.2 % (11.6-14.6); Red Blood Count 3.35 M/mm3 (4.6-6.2); White Blood Count 11.4 K/mm3 (4.4-11.0)
[2020-01-21 04:15] LABS: POSITIVE COUNT NO; POSITIVE DIFFERENTIAL NO; POSITIVE MORPHOLOGY NO
[2020-01-21 04:38] LABS: ALB/GLOB Ratio 0.3 RATIO (0.9-2.4); AST(SGOT) 24 U/L (15-37); Alanine Aminotransfer ALT/SGPT 31 U/L (16-61); Albumin, Serum 1.6 g/dL (3.2-5.0); Alkaline Phosphatase 84 U/L (45-117); Anion Gap 7 (5-15); BUN 34 mg/dL (7-18); BUN/Creat Ratio 23.1 RATIO (10-20); Calcium,Total 7.8 mg/dL (8.5-10.1); Chloride 97 mmol/L (98-107); Creatinine, Serum 1.47 mg/dL (0.70-1.30); EST Glomerular Filtration Rate 52 mL/min (>60); Est Glom Filt Rate - Afr Amer 63 mL/min (>60); Estimated Creatinine Clearance 57.92 ml/min; Globulin 4.9 g/dL (2.2-4.2); Glucose 203 mg/dL (74-106); Potassium 3.8 mmol/L (3.5-5.1); Protein, Total 6.5 g/dL (6.4-8.2); Sodium Level 137 mmol/L (136-145)
--- NOTE | 2020-01-21 07:27 | PN_ITS ---
Patient Problems: Active and Suspected Problems (Last Reviewed 01/20/20 @ 09:[address] Ian Rondon MD) Thrombocytosis (Acute) Reason for Visit: Follow-up on respiratory failure/Acute on chronic CHF Subjective: Patient was seen and examined. He remains intubated, sedated. Remains hypotensive, on vasopressors. Objective: Physical exam: General: Alert, Lethargic, - - intubated, on mechanical ventilator, sedated HEENT: Atraumatic, PERRLA, EOMI, Normocephalic Oral: Moist Mucosa Neck: Supple Lungs: Diminished Cardiovascular: Regular rate, Regular Rhythm, Normal S1, Normal S2, Irregular Rate Abdomen: Bowel Sounds Present, Soft, Non Tender, No Hepato-splenomegaly, Distended, Obese Extremities: Edema - Bipedal edema +1-2 Skin: No rashes Musculoskeletal: No Tenderness to Palpation of Joints or Extremities Lymphatic: No Cervical, Supraclavicular, or Inguinal Adenopathy Neurological: Cranial nerves II-XII grossly intact, Neuro grossly intact Psych/Mental Status: Normal Affect Vitals/I&O's: Vital Signs Temp Pulse Resp BP Pulse Ox 100.3 F H 96 18 91/57 L 96 01/21/20 06:00 01/21/20 06:00 01/21/20 06:00 01/21/20 06:00 01/21/20 06:00 Oxygen Flow Rate (L/min) 15 Oxygen Delivery Method Mechanical Ventilator Weight: 149.5 kg Body Mass Index (BMI) 44.6 Finger Stick Blood Glucose 128 Intake and Output for Last 24 Hours 01/19/20 01/20/20 01/21/20 23:59 23:59 23:59 Intake Total 775.95 / 808.65 242.58 / 242.58 Output Total 725 / 725 Balance 775.95 / 308.65 -482.42 / -482.42 Microbiology Past 72 Hours 01/20/20 16:43 Mucosa - Nasopharyngeal Coronavirus COVID-19 PCR - Final Laboratory Results 01/20/20 16:20: WBC 11.0, RBC 3.91 L, Hgb 11.0 L, Hct 39.9 L, MCV 102.0 H D, MCH 28.1, MCHC 27.6 L D, RDW Std Deviation 53.0 H, RDW Coeff of [place] 14.2, Plt Count 652 H, MPV 10.1, Immature Gran % (Auto) 1.500 H, Neut % (Auto) 85.3 H, Lymph % (Auto) 6.9 L, [place] % (Auto) 5.3, Eos % (Auto) 0.5, Baso % (Auto) 0.5, Absolute Neuts (auto) 9.4 H, Absolute Lymphs (auto) 0.76 L, Nucleated RBC % 0 01/20/20 16:20: Sodium 136, Potassium 5.2 H, Chloride 96 L, Carbon Dioxide 38.0 H, Anion Gap 2 L, BUN 32 H, Creatinine 1.69 H, Estim Creat Clear Calc 50.38, Est GFR (MDRD) Af Amer 53 L, Est GFR (MDRD) Non-Af 44 L, BUN/Creatinine Ratio 18.9, Glucose 256 H, Calcium 8.6, Total Bilirubin 0.30, AST 29, ALT 39, Alkaline Phosphatase 97, Troponin I 0.051 H, Total Protein 7.5, Albumin 1.9 L, Globulin 5.6 H, Albumin/Globulin Ratio 0.3 L 01/20/20 16:20: Lactic Acid 0.9 01/20/20 16:20: B-Natriuretic Peptide 548.4 H 01/20/20 16:43: COVID-19 ([facility]) Cancelled 01/20/20 17:04: Specimen Type ART, Sample Site L RADIAL, pH 7.30 L, Bicarbonate Actual 36.3 H, POC Total CO2 38, Base Excess 10 H, O2 Saturation 99, O2 % 100, ABG pCO2 73.1 H*, ABG pO2 144 H, Gustavo Test POS, Respiration Rate 18, Minute Vo lume 9.00, Vent Mode A-C, Tidal Volume 500, POC PEEP 10, Blood Gas Notified Whom ED , Blood Gas Notified Time 1545 01/20/20 17:40: Urine Color Yellow, Urine Clarity Cloudy, Urine pH 6.0, Ur Specific [place] 1.025, Urine Protein 30 H, Urine Glucose (UA) Normal, Urine Ketones Negative, Urine Occult Blood 10 H, Urine Nitrite Negative, Urine Bilirubin Negative, Urine Urobilinogen Normal, Ur Leukocyte Esterase Negative, Urine RBC 0-5 SEEN, Urine WBC 0-5 SEEN, Ur Squamous Epith Cells 0 SEEN, Ur Renal Epithelial Cell 0-5 SEEN, Calcium Oxalate Crystal 1+, Amorphous Sediment 1+, Urine Bacteria RARE, Hyaline Casts 10-25 SEEN, Fine Granular Casts 5-10 SEEN, Urine Mucus 0 SEEN 01/21/20 00:22: POC Glucose 175 H 01/21/20 03:50: WBC 11.4 H, RBC 3.35 L, Hgb 9.5 L, Hct 32.0 L, MCV 95.5 H D, MCH 28.4, MCHC 29.7 L D, RDW Std Deviation 50.0 H, RDW Coeff of [place] 14.2, Plt Count 623 H, MPV 10.1, Immature Gran % (Auto) 1.200 H, Neut % (Auto) 78.9 H, Lymph % (Auto) 10.6 L, [place] % (Auto) 6.5, Eos % (Auto) 2.3, Baso % (Auto) 0.5, Absolute Neuts (auto) 9.0 H, Absolute Lymphs (auto) 1.21, Nucleated RBC % 0 01/21/20 03:50: Sodium 137, Potassium 3.8, Chloride 97 L, Carbon Dioxide 33.0 H, Anion Gap 7, BUN 34 H, Creatinine 1.47 H, Estim Creat Clear Calc 57.92, Est GFR (MDRD) Af Amer 63, Est GFR (MDRD) Non-Af 52 L, BUN/Creatinine Ratio 23.1 H, Glucose 203 H, Calcium 7.8 L, Total Bilirubin 0.60, AST 24, ALT 31, Alkaline Phosphatase 84, Total Protein 6.5, Albumin 1.6 L, Globulin 4.9 H, Albumin/Globulin Ratio 0.3 L Current Medications Acetaminophen (Tylenol) 650 mg RECTAL Q4H PRN PRN PRN Reason: Pain Score 1-10/Temp > 100.7 F Albuterol/Ipratropium (Duoneb) 3 ml INHALATION Q4H.RT [facility] Last Admin: 01/21/20 07:12 Dose: 3 ml Documented by: Amiodarone HCl (Cordarone) 200 mg GT DAILY [facility] Apixaban (Eliquis) 5 mg GT BID [facility] Last Admin: 01/20/20 22:44 Dose: Not Given Documented by: Aspirin (Aspirin, Baby) 81 mg GT DAILY@0800 [facility] Atorvastatin Calcium (Lipitor) 80 mg GT QHS [facility] Last Admin: 01/20/20 22:44 Dose: Not Given Documented by: Chlorhexidine Gluconate () 15 ml PO BID [facility] Last Admin: 01/21/20 00:05 Dose: 15 ml Documented by: Dextrose (D50w Syringe) 0 gm IV X1 PRN; Protocol PRN Reason: Hypoglycemia Furosemide (Lasix) 40 mg IV Q8@0200,1000,1800 [facility]) [facility] Glucagon () 1 mg IM .X1 PRN PRN Reason: Hypoglycemia Fentanyl () 100 mls @ 5 mls/hr IV UD [facility]; Protocol Last Titration: 01/21/20 06:00 Dose: 50 mcg/hr, 5 mls/hr Documented by: Norepinephrine Bitartrate 8 mg (/ Sodium Chloride) 250 mls @ 9.375 mls/hr CONT INF .[id number] [facility]; Protocol Last Titration: 01/21/20 06:00 Dose: 15 mcg/min, 28.1 mls/hr Documented by: Sodium Chloride () 250 mls @ 15 mls/hr IV .[id number] PRN PRN Reason: Saline Flush Sodium Chloride () 250 mls @ 15 mls/hr IV .[id number] PRN PRN Reason: Additional IVPB Infusion Propofol (Diprivan) 1,000 mg in 100 mls @ 8.97 mls/hr CONT INF .Q11H9M [facility]; Protocol Last Titration: 01/21/20 06:00 Dose: 10 mcg/kg/min, 9 mls/hr Documented by: Insulin Human Lispro (Humalog Litopen (Bkc)) 0 unit SC Q6 [facility]; Protocol Last Admin: 01/21/20 05:49 Dose: 1 units Documented by: Polyethylene Glycol (Miralax) 17 gm GT DAILY [facility] Potassium Chloride (K-Dur) 20 meq [facility] Sodium Chloride () 10 - 40 ml IV UD PRN PRN Reason: SALINE FLUSH Last Admin: 01/20/20 23:54 Dose: 10 ml Documented by: STROKE Vital Signs/Narrative: Vital Signs Temp Pulse Resp BP Pulse Ox 01/21/20 06:00 100.3 F H 96 18 91/57 L 96 01/21/20 05:45 97 01/21/20 05:29 99 20 H 94 01/21/20 05:14 20 H 01/21/20 05:00 100.4 F H 105 H 18 121/65 H 93 01/21/20 04:00 100.6 F H 101 H 18 95/65 92 01/21/20 03:45 100.6 F H 95 20 H 111/64 94 01/21/20 03:30 100.7 F H 101 H 18 94/53 L 94 Medical Necessity - Tobacco Use Smoking Status: Smoker, status unknown Tobacco Use: Non-smoker Assessment/Plan All Active Problems (Last Reviewed 01/20/20 @ 09:[address] Ian Rondon MD) Thrombocytosis (Acute) Acute exacerbation of CHF (congestive heart failure) (Resolved) 59 year old M with PMHx of CAD status post CABG, atrial fibrillation, chronic diastolic CHF, hypertension, type II DM, recently discharged on 01/18/20 comes in with worsening shortness of breath and has been intubated 01/20/20. 1. Acute combined respiratory failure secondary to CO2 retention/acute on chronic diastolic CHF/undiagnosed VASILIY Patient was on BiPAP during the last hospital stay. Fortunately BiPAP could not be arranged for him on discharge because he needed a sleep study. The earliest scheduled sleep study date was 10 days from last discharge. Patient was discharged on oxygen Admitted with respiratory acidosis and has been intubated Continue mechanical ventilator, tool liaison consulted 2. Hypotension, likely sedative medication side-effects( propofol) Remains on pressors, will continue to wean off propofol and increase fentanyl 2. ROBERT, admitting creatinine 1.69, likely prerenal, improving Cr today is 1.47. Recent creatinine at discharge was 0.98 Resumed on Lasix, will follow-up with labs in am 3. Hyperkalemia, resolved, K is 3.8 Repeat blood work in a.m. 4. Acute on chronic diastolic CHF, on Lasix, Will trend labs 5. CAD status post CABG/atrial fibrillation, rate controlled/hypertension, all remain stable Will continue on aspirin, apixaban, amiodarone, statin Will hold off on losartan on account of current hypotension 6. Type II DM, on insulin and metformin Will hold both; continue with blood glucose checks with insulin sliding scale every 6 hourly 7. DVT prophylaxis-apixaban Patient will need a sleep study scheduled before discharge so he can be discharge directly to it. He cannot be without Bipap. Inpatient E&M: 25145 Subs Hosp L2
--- NOTE | 2020-01-21 07:45 | CON.PCM_ITS ---
Problem List (1) Respiratory failure with hypoxia and hypercapnia Status: Chronic Qualifiers: Chronicity: acute on chronic Qualified Code(s): J96.21 - Acute and chronic respiratory failure with hypoxia; J96.22 - Acute and chronic respiratory failure with hypercapnia (2) History of non-ST elevation myocardial infarction (NSTEMI) Status: Chronic Comment: 11/17/2019, 01/04/2020 (3) H/O coronary artery bypass surgery Status: Chronic Comment: CABG x 4: ARREDONDO-LAD, Free ISAK from the D1 SVG-OM1, SVG-D1, SVG-RPDA 12/26/19 (4) Chronic diastolic (congestive) heart failure Status: Chronic (5) Secondary pulmonary arterial hypertension Status: Chronic (6) Essential (primary) hypertension Status: Chronic (7) Hypercholesterolemia Status: Chronic (8) Anemia Status: Chronic Qualifiers: Anemia type: iron deficiency Iron deficiency anemia type: unspecified iron deficiency Qualified Code(s): D50.9 - Iron deficiency anemia, unspecified (9) Thrombocytosis Status: Acute Reason for Consult Date of Consultation: 01/21/20 Reason for Consultation: Respiratory failure History of Present Illness: The patient is a 59 year old M, with past medical history listed below and well- known to me from recent hospitalizations, who presented to [facility] on 01/20/2020 secondary to severe respiratory distress. Patient had a four-vessel CABG completed at [facility] in November and has had multiple admissions since that time. Patient has had issues with A. fib with RVR in the past that was thought to be secondary to anasarca. Patient was diuresed and responded well. Patient was just recently discharged 2 days ago and had a virtual visit with cardiology. Patient was noted to have significant dyspnea and lower extremity edema. EMS was called and patient was placed on CPAP and brought in. On arrival to the emergency room, patient respiratory status was severe. ABG showed combined respiratory failure, so patient was intubated emergently without complications. Following intubation, patient became hypotensive, so a central line and pressors were initiated. Chest x-ray shows fluid with residual left lower lobe infiltrate, so patient was placed on broad-spectrum antibiotics and admitted to the intensive care unit. Overnight, patient did have a fever and has required pressor therapy throughout. Patient's oxygenation status has done okay on minimal O2, but patient was only able to tolerate 20 to 30 minutes of a spontaneous breathing trial this morning before asking to go back on sedation. Patient was not able to provide a review of systems secondary to his acute status and sedation. Of note, patient has gained 5 kg since his discharge 2 days ago. Patient was noted to have significant anasarca without new skin wounds. Past Medical History Past Medical History (Chronic Problems): Chronic Problems (Last Reviewed 01/20/20 @ 09:[address] Ian Rondon MD) Respiratory failure with hypoxia and hypercapnia (Chronic) History of non-ST elevation myocardial infarction (NSTEMI) (Chronic 01/04/20) 11/17/2019, 01/04/2020 Atherosclerosis of coronary artery of [place] heart without angina pectoris (Chronic) H/O coronary artery bypass surgery (Chronic 12/26/19) CABG x 4: ARREDONDO-LAD, Free ISAK from the D1 SVG-OM1, SVG-D1, SVG-RPDA 12/26/19 Chronic diastolic (congestive) heart failure (Chronic) Secondary pulmonary arterial hypertension (Chronic) Essential (primary) hypertension (Chronic) Hypercholesterolemia (Chronic) Anemia (Chronic) Medical History: Medical History (Last Reviewed 01/20/20 @ 09:[address] Ian Rondon MD) Respiratory failure with hypoxia and hypercapnia (Chronic) J96.91, J96.92 History of non-ST elevation myocardial infarction (NSTEMI) (Chronic) Onset Date: 01/04/20 I25.2 11/17/2019, 01/04/2020 Atherosclerosis of coronary artery of [place] heart without angina pectoris (Chronic) I25.10 Chronic diastolic (congestive) heart failure (Chronic) I50.32 Secondary pulmonary arterial hypertension (Chronic) I27.21 Essential (primary) hypertension (Chronic) I10 Hypercholesterolemia (Chronic) E78.00 Anemia (Chronic) D64.9 Thrombocytosis (Acute) D47.3 Nonrheumatic aortic (valve) stenosis I35.0 mild Obesity E66.9 Type 2 diabetes mellitus E11.9 Acute exacerbation of CHF (congestive heart failure) (Resolved) I50.9 Acute respiratory failure with hypoxia Onset Date: 11/17/19 J96.01 Atrial fibrillation with rapid ventricular response Onset Date: 01/04/20 I48.91 Elevated troponin Onset Date: 11/17/19 R79.89 Atrial flutter with rapid ventricular response I48.92 Arteriosclerotic cardiovascular disease (Inactive) I25.10 Triple vessel coronary artery disease (Inactive) I25.10 Allergies No Known Allergies Allergy (Verified 01/20/20 08:35) Home Medications: Ambulatory Orders Medication Instructions Recorded Atorvastatin Calcium [Lipitor] 80 mg PO QHS 11/17/19 Ipratropium [place] 0.06% 1 spray INHALATION DAILY PRN PRN 11/17/19 [ATROVENT NASAL SPRAY] Temazepam 15 mg PO QHS PRN PRN 11/17/19 Gabapentin [Neurontin] 200 mg PO DAILY 01/04/20 Magnesium Oxide 400 mg PO DAILY 01/04/20 Polyethylene Glycol 3350 [Miralax] 17 gm PO DAILY 01/04/20 Amiodarone HCl 200 mg PO DAILY 01/20/20 Apixaban [Eliquis] 5 mg PO BID 01/20/20 Furosemide 40 mg PO DAILY@1500 01/20/20 Insulin Glargine [Lantus SoloStar 10 units SUBCUT QHS 01/20/20 Pen] Metoprolol Tartrate [Lopressor 100 mg PO BID 01/20/20 (beta ronen)] Pantoprazole Sodium [Protonix] 40 mg PO BID 01/20/20 aspirin 81 mg chewable tablet 1 tab PO DAILY@0800 tab 01/20/20 furosemide 40 mg tablet 80 mg PO DAILY@0900 tab 01/20/20 levocetirizine 5 mg tablet 5 mg PO DAILY 01/20/20 losartan 50 mg tablet 50 mg PO DAILY 01/20/20 metformin 1,000 mg tablet 1,000 mg PO BIDCM tab 01/20/20 Surgical History: Surgical History (Last Reviewed 01/20/20 @ 09:[address] Ian Rondon MD) H/O coronary artery bypass surgery (Chronic) Onset Date: 12/26/19 Z95.1 CABG x 4: ARREDONDO-LAD, Free ISAK from the D1 SVG-OM1, SVG-D1, SVG-RPDA 12/26/19 History of left heart catheterization Onset Date: 01/04/20 Z98.890 11/18/2019, 01/04/20 Surgical History: coronary bypass surgery Psychiatric History: No pertinent psych hx Lives: Spouse/ Significant Other Smoking Status: Smoker, status unknown Tobacco Use: Non-smoker Alcohol: None Drugs: None - *Family History Maternal Family History: Family History (Last Reviewed 01/20/20 @ 09:[address] Ian Rondon MD) Mother Hypertension Father Hypertension Heart disease History Items: Cancer - breast cancer, Hypertension Paternal Family History: Family History (Last Reviewed 01/20/20 @ 09:[address] Ian Rondon MD) Mother Hypertension Father Hypertension Heart disease History Items: Heart Disease, Hypertension Review of Systems Unable to obtain accurate/complete ROS d/t: Intubated and sedated Patient Problems: Active and Suspected Problems (Last Reviewed 01/20/20 @ 09:[address] Ian Rondon MD) Thrombocytosis (Acute) Objective: All imaging was personally reviewed. Chest x-ray appears unchanged in the left lower lobe, but does have cephalization consistent with overload. Central line is in the right atrium. - Physical Exam Vitals/I&O's: Vital Signs Temp Pulse Resp BP Pulse Ox 37.9 C H 89 18 121/59 H 96 01/21/20 06:00 01/21/20 07:00 01/21/20 07:00 01/21/20 07:00 01/21/20 07:00 Oxygen Flow Rate (L/min) 15 Oxygen Delivery Method Mechanical Ventilator Weight: 149.5 kg Body Mass Index (BMI) 44.6 Finger Stick Blood Glucose 128 Intake and Output for Last 24 Hours 01/19/20 01/20/20 01/21/20 23:59 23:59 23:59 Intake Total 775.95 / 808.65 284.68 / 284.68 Output Total 725 / 725 Balance 775.95 / 308.65 -440.32 / -440.32 General: - - Intubated and sedated. Anasarca. Appears older than stated age. Good vent synchrony. HEENT: Atraumatic, PERRLA, EOMI, Normocephalic, - - Slight scleral injection without icterus Oral: Moist Mucosa, No Gingival or Mucosal Lesions/ Ulcerations Neck: Supple, No Nodes, Trachea Midline, - - Some hematoma associated with right IJ Lungs: No rhonchi, No wheeze, Diminished, Rales - Bilateral Cardiovascular: Normal S1, Normal S2, No murmurs, Irregular Rate, No rub noted, No Gallop, - - A. fib noted on telemetry Abdomen: Bowel Sounds Present, Soft, Non Tender, Distended, Obese, - - Potential fluid wave noted. Difficult to assess secondary to body habitus Extremities: No clubbing, No cyanosis, Edema - 3-4+ anasarca noted Skin: No rashes, No breakdown Musculoskeletal: No Tenderness to Palpation of Joints or Extremities Lymphatic: No Cervical, Supraclavicular, or Inguinal Adenopathy Neurological: Cranial nerves II-XII grossly intact, Neuro grossly intact, Motor Exam 5/5 strength throughout Psych/Mental Status: Appropriate, Flat Affect Microbiology Past 72 Hours 01/20/20 16:43 Mucosa - Nasopharyngeal Coronavirus COVID-19 PCR - Final Laboratory Results 01/20/20 16:20: WBC 11.0, RBC 3.91 L, Hgb 11.0 L, Hct 39.9 L, MCV 102.0 H D, MCH 28.1, MCHC 27.6 L D, RDW Std Deviation 53.0 H, RDW Coeff of [place] 14.2, Plt Count 652 H, MPV 10.1, Immature Gran % (Auto) 1.500 H, Neut % (Auto) 85.3 H, Lymph % (Auto) 6.9 L, Coles % (Auto) 5.3, Eos % (Auto) 0.5, Baso % (Auto) 0.5, Absolute Neuts (auto) 9.4 H, Absolute Lymphs (auto) 0.76 L, Nucleated RBC % 0 01/20/20 16:20: Sodium 136, Potassium 5.2 H, Chloride 96 L, Carbon Dioxide 38.0 H, Anion Gap 2 L, BUN 32 H, Creatinine 1.69 H, Estim Creat Clear Calc 50.38, Est GFR (MDRD) Af Amer 53 L, Est GFR (MDRD) Non-Af 44 L, BUN/Creatinine Ratio 18.9, Glucose 256 H, Calcium 8.6, Total Bilirubin 0.30, AST 29, ALT 39, Alkaline Phosphatase 97, Troponin I 0.051 H, Total Protein 7.5, Albumin 1.9 L, Globulin 5.6 H, Albumin/Globulin Ratio 0.3 L 01/20/20 16:20: Lactic Acid 0.9 01/20/20 16:20: B-Natriuretic Peptide 548.4 H 01/20/20 16:43: COVID-19 ([place]) Cancelled 01/20/20 17:04: Specimen Type ART, Sample Site L RADIAL, pH 7.30 L, Bicarbonate Actual 36.3 H, POC Total CO2 38, Base Excess 10 H, O2 Saturation 99, O2 % 100, ABG pCO2 73.1 H*, ABG pO2 144 H, Gustavo Test POS, Respiration Rate 18, Minute Volume 9.00, Vent Mode A-C, Tidal Volume 500, POC PEEP 10, Blood Gas Notified Whom ED , Blood Gas Notified Time 1545 01/20/20 17:40: Urine Color Yellow, Urine Clarity Cloudy, Urine pH 6.0, Ur Specific [place] 1.025, Urine Protein 30 H, Urine Glucose (UA) Normal, Urine Ketones Negative, Urine Occult Blood 10 H, Urine Nitrite Negative, Urine Bilirubin Negative, Urine Urobilinogen Normal, Ur Leukocyte Esterase Negative, Urine RBC 0-5 SEEN, Urine WBC 0-5 SEEN, Ur Squamous Epith Cells 0 SEEN, Ur Renal Epithelial Cell 0-5 SEEN, Calcium Oxalate Crystal 1+, Amorphous Sediment 1+, Urine Bacteria RARE, Hyaline Casts 10-25 SEEN, Fine Granular Casts 5-10 SEEN, Urine Mucus 0 SEEN 01/21/20 00:22: POC Glucose 175 H 01/21/20 03:50: WBC 11.4 H, RBC 3.35 L, Hgb 9.5 L, Hct 32.0 L, MCV 95.5 H D, MCH 28.4, MCHC 29.7 L D, RDW Std Deviation 50.0 H, RDW Coeff of [place] 14.2, Plt Count 623 H, MPV 10.1, Immature Gran % (Auto) 1.200 H, Neut % (Auto) 78.9 H, Lymph % (Auto) 10.6 L, Coles % (Auto) 6.5, Eos % (Auto) 2.3, Baso % (Auto) 0.5, Absolute Neuts (auto) 9.0 H, Absolute Lymphs (auto) 1.21, Nucleated RBC % 0 01/21/20 03:50: Sodium 137, Potassium 3.8, Chloride 97 L, Carbon Dioxide 33.0 H, Anion Gap 7, BUN 34 H, Creatinine 1.47 H, Estim Creat Clear Calc 57.92, Est GFR (MDRD) Af Amer 63, Est GFR (MDRD) Non-Af 52 L, BUN/Creatinine Ratio 23.1 H, Glucose 203 H, Calcium 7.8 L, Total Bilirubin 0.60, AST 24, ALT 31, Alkaline Phosphatase 84, Total Protein 6.5, Albumin 1.6 L, Globulin 4.9 H, Albumin/Globulin Ratio 0.3 L Current Medications Acetaminophen (Tylenol) 650 mg RECTAL Q4H PRN PRN PRN Reason: Pain Score 1-10/Temp > 100.7 F Albuterol/Ipratropium (Duoneb) 3 ml INHALATION Q4H.RT [facility] Last Admin: 01/21/20 07:12 Dose: 3 ml Documented by: Amiodarone HCl (Cordarone) 200 mg GT DAILY [facility] Apixaban (Eliquis) 5 mg GT BID [facility] Last Admin: 01/20/20 22:44 Dose: Not Given Documented by: Aspirin (Aspirin, Baby) 81 mg GT DAILY [facility] Atorvastatin Calcium (Lipitor) 80 mg GT QHS [facility] Last Admin: 01/20/20 22:44 Dose: Not Given Documented by: Chlorhexidine Gluconate () 15 ml PO BID [facility] Last Admin: 01/21/20 00:05 Dose: 15 ml Documented by: Dextrose (D50w Syringe) 0 gm IV X1 PRN; Protocol PRN Reason: Hypoglycemia Furosemide (Lasix) 40 mg IV Q8@0200,1000,1800 [facility] Gabapentin (Neurontin) 200 mg GT DAILY [facility] Glucagon () 1 mg IM .X1 PRN PRN Reason: Hypoglycemia Fentanyl () 100 mls @ 5 mls/hr IV UD [facility]; Protocol Last Titration: 01/21/20 07:00 Dose: 50 mcg/hr, 5 mls/hr Documented by: Norepinephrine Bitartrate 8 mg (/ Sodium Chloride) 250 mls @ 9.375 mls/hr CONT INF .[id number] [facility]; Protocol Last Titration: 01/21/20 07:00 Dose: 15 mcg/min, 28.1 mls/hr Documented by: Sodium Chloride () 250 mls @ 15 mls/hr IV .[id number] PRN PRN Reason: Saline Flush Sodium Chloride () 250 mls @ 15 mls/hr IV .[id number] PRN PRN Reason: Additional IVPB Infusion Propofol (Diprivan) 1,000 mg in 100 mls @ 8.97 mls/hr CONT INF .Q11H9M [facility]; Protocol Last Titration: 01/21/20 07:00 Dose: 10 mcg/kg/min, 9 mls/hr Documented by: Insulin Human Lispro (Humalog Kwikpen (Bkc)) 0 unit SC Q6H [facility]; Protocol Polyethylene Glycol (Miralax) 17 gm GT DAILY [facility] Potassium Chloride (K-Dur) 20 meq PO DAILY [facility] Sodium Chloride () 10 - 40 ml IV UD PRN PRN Reason: SALINE FLUSH Last Admin: 01/20/20 23:54 Dose: 10 ml Documented by: Clinical Impression(s) from Imaging Studies Chest X-Ray 01/20/20 16:50 IMPRESSION: Endotracheal tube tip is 4.7 cm from kyra. Stable bilateral alveolar disease and bilateral pleural effusions, more extensive on the left. Electronically Signed: Shashank Bustamante MD at 17:10 EDT Tel , Service support , KUB X-Ray 01/20/20 16:57 IMPRESSION: Enteric tube tip excluded from view in the mid to lower abdomen. Electronically Signed: Shashank Bustamante MD at 17:09 EDT Tel , Service support , Chest X-Ray 01/20/20 17:28 IMPRESSION: Right central catheter tip in right atrium. If SVC location is desired, withdrawal of the catheter by 3 to 4 cm. Stable left basilar alveolar disease and bilateral pleural effusions. There is no demonstrated pleural abnormality. Electronically Signed: Shashank Bustamante MD at 17:54 EDT Tel , Service support , Assessment/Plan Active and Suspected Problems (Last Reviewed 01/20/20 @ 09:[address] Ian Rondon MD) Thrombocytosis (Acute) RECOMMENDATIONS: 1. Consider cardiology consult 2. Initiate active diuresis 3. Spontaneous breathing and awakening trials per protocol 4. Wean oxygen as tolerated 5. Continue empiric antibiotics until culture negative 6. Wean pressors as tolerated IMPRESSIONS: 1. Acute hypoxic respiratory failure secondary to acute on chronic diastolic congestive heart failure secondary to A. fib with RVR Patient appears to be clinically overloaded at this time. Patient with significant weight gain over the last 2 days following discharge. Previous echocardiograms have shown preserved ejection fraction. It is unclear if this needs to be repeated. Patient may have an element of worsening secondary to RVR associated with uncontrolled sleep apnea. Low clinical suspicion for coronavirus as an etiology. 2. Shock Unclear etiology. Patient may have an element of cardiogenic shock secondary to significant fluid overload with 5 kg of weight gain over the last 2 days. Will attempt diuresis with pressors. Patient should be covered with empiric antibiotics. Patient has not had MRSA cultured in the past, so vancomycin is likely not necessary. Patient may have an element of adrenal insufficiency, but will monitor and only initiate stress dose steroids if patient starts to need increased pressor requirements. Another possibility is medication effect, but patient has persisted in hypotension for some time after intubation. 3. Probable untreated obstructive sleep apnea Patient does not carry a diagnosis of obstructive sleep apnea that I have been able to find. Patient does have a body habitus suggestive of obstructive sleep apnea. Patient had a sleep study scheduled for the . Patient currently intubated. Likely will need to be discharged to the sleep center to ensure that noninvasive therapy can be continued to avoid future complications. 4. Acute kidney injury Clinical suspicion for prerenal etiology. Clinically, patient is overloaded and this may be secondary to poor [place] forces with poor renal perfusion. Will attempt Lasix therapy given high volume status noted on physical exam. Patient will be given some potassium, but this will need to be monitored. 5. Hyperlipidemia/morbid obesity/diabetes mellitus type 2/hypertension Complicates care, management, recovery and prognosis. Will need to watch blood sugars closely given probable endogenous steroid production. Patient has received aspirin and statin. Monitor blood pressure closely. Echo does not show any tamponade physiology. TIME: 45 minutes critical care time spent addressing patient's acute hypoxic respiratory failure, shock, review of all data and collaboration with care team. (2 PM to 3:17 PM) [phone]: [id number] Critical care first hour
[2020-01-21] MEDS: Aspirin 81 MG TAB.CHEW GT (09:52)
[2020-01-21] MEDS: Amiodarone 200 MG Tablet GT (09:52)
[2020-01-21] MEDS: Polyethylene Glycol 3350 17 GM PACKET GT (09:52)
[2020-01-21] MEDS: Gabapentin 100 MG Capsule 200 MG GT (09:52)
[2020-01-21] MEDS: APIXABAN 5 MG TABLET GT ×2 (09:52→21:22)
--- NOTE | 2020-01-21 09:55 | PCM.NTREPORT ---
Nutrition Therapy Report - History Nutrition Services has been consulted to:: Manage enteral nutrition Current diet / nutrition support order:: NPO - Anthropometric Measurements Height:: 6 ft 0.05 in Weight:: 149.5 kg Body Mass Index (BMI):: 44.6 - Relevant Labs Relevant Labs:: WBC 11.4 K/mm3 (4.4-11.0) H 01/21/20 03:50 RBC 3.35 M/mm3 (4.6-6.2) L 01/21/20 03:50 Hgb 9.5 g/dL (13.0-16.5) L 01/21/20 03:50 Hct 32.0 % (40-54) L 01/21/20 03:50 MCV 95.5 fL (80-94) H D 01/21/20 03:50 MCHC 29.7 g/dL (32-36) L D 01/21/20 03:50 RDW Std Deviation 50.0 fl (35.1-43.9) H 01/21/20 03:50 Plt Count 623 K/mm3 (150-450) H 01/21/20 03:50 Immature Gran % (Auto) 1.200 % (0.0-0.9) H 01/21/20 03:50 Neut % (Auto) 78.9 % (47-70) H 01/21/20 03:50 Lymph % (Auto) 10.6 % (19-41) L 01/21/20 03:50 Absolute Neuts (auto) 9.0 X10^3/uL (2.0-7.7) H 01/21/20 03:50 Absolute Lymphs (auto) 0.76 X10^3/uL (0.83-4.51) L 01/20/20 16:20 Potassium 5.2 mmol/L (3.5-5.1) H 01/20/20 16:20 Chloride 97 mmol/L (98-107) L 01/21/20 03:50 Carbon Dioxide 33.0 mmol/L (21.0-32.0) H 01/21/20 03:50 Anion Gap 2 (5-15) L 01/20/20 16:20 BUN 34 mg/dL (7-18) H 01/21/20 03:50 Creatinine 1.47 mg/dL (0.70-1.30) H 01/21/20 03:50 Est GFR (MDRD) Af Amer 53 mL/min (>60) L 01/20/20 16:20 Est GFR (MDRD) Non-Af 52 mL/min (>60) L 01/21/20 03:50 BUN/Creatinine Ratio 23.1 RATIO (10-20) H 01/21/20 03:50 Glucose 203 mg/dL (74-106) H 01/21/20 03:50 Calcium 7.8 mg/dL (8.5-10.1) L 01/21/20 03:50 Troponin I 0.051 ng/mL (<0.045) H 01/20/20 16:20 B-Natriuretic Peptide 548.4 pg/mL (0-100) H 01/20/20 16:20 Albumin 1.6 g/dL (3.2-5.0) L 01/21/20 03:50 Globulin 4.9 g/dL (2.2-4.2) H 01/21/20 03:50 Albumin/Globulin Ratio 0.3 RATIO (0.9-2.4) L 01/21/20 03:50 - Assessment Food / Nutrition-Related History:: RDN familiar w/ pt from recent admin- discharged 01/17. Pt intubated w/ OG in place. Per Dr. Koko velasquez for RDN to order TF, TF to be intiated today. Pt wt 11/17/19 306.5#, 01/04/20 329.1#- CBW 329.6#. Per RN note pt w/ BLE 3+ pitting edema- anticipate wt loss as fluid status improves. 01/04/20 admission pt reported UBW as 310# w/ wt gain since CABG. Was SMBG 3-4x/day w/ high blood sugars since CABG. - Nutrition Diagnosis Problem / Etiology / Signs & Symptoms (PES):: Inadequate oral intake related to respiratory failure resulting in intubation as evidenced by NPO status w/ OG in place. Evidence of Malnutrition Exists:: No - Nutrition Intervention Nutrition Prescription:: 3414-4421 calories, 160-200 g protein - Food / Nutrient Delivery Interventions Summary of nutrition intervention:: Estimated nutritional needs using ASPEN guidelines for critically ill obese patients: 7116-9745 calories/day (11-14 calories/kg current wt) and 160-200 g protein/day (2-2.5 g protein/kg ideal body wt (80kg)). Nutrition support ordered as / adjusted to:: Vital AF 1.2 at goal rate of 70ml/hour w/ 70ml H2O flush every 4 hours to provide 2016 calories, 126 g protein, and 1783 total fluid/day. Would start tube feeds at 20mL/hour and increase by 20mL every 8 to 12 hours as pt tolerates until goal rate achieved. Nutrition education provided?: No - MNT Monitoring Further MNT monitoring and evaluation required?: Yes MNT Follow-up in:: 3-5 days
[2020-01-21 10:36] LABS: Bedside Glucose 179 mg/dL (70-110)
[2020-01-21] MEDS: Vital AF 1.2 Cal Liquid 1,000 ML 70 ML GT (12:24)
--- NOTE | 2020-01-21 13:49 | CASEMGMT ---
ADITI SAINI Chart Review: Patient was admitted 01/09/20-01/18/20 for respiratory failure, CHF, UTI. Patient was discharged home with with resumption of HHC and home oxgyen. Patient had telehealth follow-up with sheet cutter on 01/20/20, increased lower extremity swelling. After visit had syncopal episode and EMS was called. Patient was minimally responsive on Cpap and was intubated. Patient was scheduled to have sleep study on 01/31/20 for Bipap setup. Patient is currently intubated with FIO2 @ 30%. CM will continue to follow this patient and plan for a safe discharge. Disposition Plan: TBD
[2020-01-21] MEDS: Furosemide 40 MG/4 ML Vial IV ×2 (14:07→21:22)
[2020-01-21] MEDS: fentaNYL drip 100 ML 5 MCG IV (15:16)
--- NOTE | 2020-01-21 16:29 | PCM.CONS.R ---
Consultation - Renal PCP/ Referring MD: Requesting physician: [] Primary care physician: Dr. Josué Rodriguez MD - History of Present Illness History of Present Illness: The patient is a 59 year old M with past medical history of morbid obesity, recent CABG at [facility], diastolic heart failure, hypertension, and diabetes, patient was discharged 2 days ago after he was treated for acute respiratory failure, and acute kidney injury. Kidney function improved with a blood pressure improvement and holding diuretics patient was discharged with nasal cannula and Lasix 40 mg twice a day. Patient presented again for confusion. He was found to have hypoxic and hypercapnic respiratory failure and was intubated. Blood pressure dropped with sedation. Patient admitted to the ICU and started on Levophed. Patient presented with a serum creatinine 1.6 mg/dL. 2 days ago at discharge creatinine was 0.98. Kidney function improved today. Patient has 1300 cc urine output. Lasix was started by Dr. Phi Sutherland this morning. Patient is currently intubated. Levophed dose is 5 MCG per minute Patient had thousand cc urine output so far today. Patient is awake alert follows command but cannot talk because he is intubated. He is asking for the tube to come out. No recent IV contrast exposure. No NSAIDs use. Patient has Pimentel catheter. Review of system: Unobtainable because the patient is intubated. Patient denied acute complaints by gestures [] - Allergies Allergies: Allergies No Known Allergies Allergy (Verified 01/20/20 08:35) - Current Medications Current Medications: Current Medications Acetaminophen (Tylenol) 650 mg RECTAL Q4H PRN PRN PRN Reason: Pain Score 1-10/Temp > 100.7 F Albuterol/Ipratropium (Duoneb) 3 ml INHALATION Q4H.RT [facility] Last Admin: 01/21/20 15:28 Dose: 3 ml Documented by: Amiodarone HCl (Cordarone) 200 mg GT DAILY [facility] Last Admin: 01/21/20 09:52 Dose: 200 mg Documented by: Apixaban (Eliquis) 5 mg GT BID [facility] Last Admin: 01/21/20 09:52 Dose: 5 mg Documented by: Aspirin (Aspirin, Baby) 81 mg GT DAILY [facility] Last Admin: 01/21/20 09:52 Dose: 81 mg Documented by: Atorvastatin Calcium (Lipitor) 80 mg GT QHS [facility] Last Admin: 01/20/20 22:44 Dose: Not Given Documented by: Chlorhexidine Gluconate () 15 ml PO BID [facility] Last Admin: 01/21/20 10:33 Dose: 15 ml Documented by: Dextrose (D50w Syringe) 0 gm IV X1 PRN; Protocol PRN Reason: Hypoglycemia Furosemide (Lasix) 40 mg IV Q8 [facility] Last Admin: 01/21/20 14:07 Dose: 40 mg Documented by: Gabapentin (Neurontin) 200 mg GT DAILY [facility] Last Admin: 01/21/20 09:52 Dose: 200 mg Documented by: Glucagon () 1 mg IM .X1 PRN PRN Reason: Hypoglycemia Fentanyl () 100 mls @ 5 mls/hr IV UD [facility]; Protocol Last Titration: 01/21/20 16:00 Dose: 100 mcg/hr, 10 mls/hr Documented by: Norepinephrine Bitartrate 8 mg (/ Sodium Chloride) 250 mls @ 9.375 mls/hr CONT INF .[id number] [facility]; Protocol Last Titration: 01/21/20 16:00 Dose: 5 mcg/min, 9.4 mls/hr Documented by: Sodium Chloride () 250 mls @ 15 mls/hr IV .[id number] PRN PRN Reason: Saline Flush Sodium Chloride () 250 mls @ 15 mls/hr IV .[id number] PRN PRN Reason: Additional IVPB Infusion Propofol (Diprivan) 1,000 mg in 100 mls @ 8.97 mls/hr CONT INF .Q11H9M [facility]; Protocol Last Titration: 01/21/20 16:00 Dose: 5.57 mcg/kg/min, 5 mls/hr Documented by: Piperacillin Sod/Tazobactam (Sod 3.375 gm/ Sodium Chloride) 50 mls @ 12.5 mls/hr IV Q8 [facility] Last Admin: 01/21/20 14:07 Dose: 12.5 mls/hr Documented by: Enteral Nutritional Formula (Vital Af 1.2 Alli Liquid) 1,000 mls @ 70 mls/hr GT .[id number] [facility] Last Admin: 01/21/20 12:24 Dose: 70 mls/hr Documented by: Insulin Human Lispro (Humalog Kwikpen (Bkc)) 0 unit SC Q6H [facility]; Protocol Last Admin: 01/21/20 10:39 Dose: 1 u Documented by: Polyethylene Glycol (Miralax) 17 gm GT DAILY [facility] Last Admin: 01/21/20 09:52 Dose: 17 gm Documented by: Potassium Chloride (K-Dur) 20 meq PO DAILY [facility] Last Admin: 01/21/20 09:52 Dose: 20 meq Documented by: Sodium Chloride () 10 - 40 ml IV UD PRN PRN Reason: SALINE FLUSH Last Admin: 01/20/20 23:54 Dose: 10 ml Documented by: - Past Medical History Past Medical History (Chronic Problems): Chronic Problems (Last Reviewed 01/20/20 @ 09:[address] Ian Rondon MD) Respiratory failure with hypoxia and hypercapnia (Chronic) History of non-ST elevation myocardial infarction (NSTEMI) (Chronic 01/04/20) 11/17/2019, 01/04/2020 Atherosclerosis of coronary artery of [place] heart without angina pectoris (Chronic) H/O coronary artery bypass surgery (Chronic 12/26/19) CABG x 4: ARREDONDO-LAD, Free ISAK from the D1 SVG-OM1, SVG-D1, SVG-RPDA 12/26/19 Chronic diastolic (congestive) heart failure (Chronic) Secondary pulmonary arterial hypertension (Chronic) Essential (primary) hypertension (Chronic) Hypercholesterolemia (Chronic) Anemia (Chronic) - Past Surgical History Surgical History: coronary bypass surgery - Social History Smoking Status: Smoker, status unknown Alcohol: None Drugs: None - Family History Maternal Family History: Family History (Last Reviewed 01/20/20 @ 09:[address] Ian Rondon MD) Mother Hypertension Father Hypertension Heart disease History Items: Cancer - breast cancer, Hypertension Paternal Family History: Family History (Last Reviewed 01/20/20 @ 09:[address] Ian Rondon MD) Mother Hypertension Father Hypertension Heart disease History Items: Heart Disease, Hypertension Patient Problems: Active and Suspected Problems (Last Reviewed 01/20/20 @ 09:[address] Ian Rondon MD) Thrombocytosis (Acute) - Physical Exam Vitals/I&O's: Vital Signs Temp Pulse Resp BP Pulse Ox 99.7 F H 92 18 105/70 98 01/21/20 16:00 01/21/20 16:00 01/21/20 16:00 01/21/20 16:00 01/21/20 16:00 Oxygen Flow Rate (L/min) 15 Oxygen Delivery Method Mechanical Ventilator Weight: 149.5 kg Body Mass Index (BMI) 44.6 Finger Stick Blood Glucose 128 Intake and Output for Last 24 Hours 01/19/20 01/20/20 01/21/20 23:59 23:59 23:59 Intake Total 775.95 / 808.65 527.02 / 527.02 Output Total 1325 / 1325 Balance 775.95 / 308.65 -797.98 / -797.98 General: Cooperative, - - Intubated HEENT: Atraumatic Oral: Moist Mucosa Neck: Supple, No JVD Lungs: - - Bilateral rhonchi. Equal air entry Cardiovascular: Regular rate, Regular Rhythm, Normal S1, Normal S2 Abdomen: - - Abdomen is distended no tenderness. No rebound tenderness. Positive bowel sounds Extremities: No clubbing, No cyanosis Skin: No rashes Musculoskeletal: No Tenderness to Palpation of Joints or Extremities Lymphatic: No Cervical, Supraclavicular, or Inguinal Adenopathy Psych/Mental Status: Normal Affect, - Microbiology Past 72 Hours 01/20/20 16:43 Mucosa - Nasopharyngeal Coronavirus COVID-19 PCR - Final Laboratory Results 01/20/20 16:20: WBC 11.0, RBC 3.91 L, Hgb 11.0 L, Hct 39.9 L, MCV 102.0 H D, MCH 28.1, MCHC 27.6 L D, RDW Std Deviation 53.0 H, RDW Coeff of [place] 14.2, Plt Count 652 H, MPV 10.1, Immature Gran % (Auto) 1.500 H, Neut % (Auto) 85.3 H, Lymph % (Auto) 6.9 L, [place] % (Auto) 5.3, Eos % (Auto) 0.5, Baso % (Auto) 0.5, Absolute Neuts (auto) 9.4 H, Absolute Lymphs (auto) 0.76 L, Nucleated RBC % 0 01/20/20 16:20: Sodium 136, Potassium 5.2 H, Chloride 96 L, Carbon Dioxide 38.0 H, Anion Gap 2 L, BUN 32 H, Creatinine 1.69 H, Estim Creat Clear Calc 50.38, Est GFR (MDRD) Af Amer 53 L, Est GFR (MDRD) Non-Af 44 L, BUN/Creatinine Ratio 18.9, Glucose 256 H, Calcium 8.6, Total Bilirubin 0.30, AST 29, ALT 39, Alkaline Phosphatase 97, Troponin I 0.051 H, Total Protein 7.5, Albumin 1.9 L, Globulin 5.6 H, Albumin/Globulin Ratio 0.3 L 01/20/20 16:20: Lactic Acid 0.9 01/20/20 16:20: B-Natriuretic Peptide 548.4 H 01/20/20 16:43: COVID-19 ([place]) Cancelled 01/20/20 17:04: Specimen Type ART, Sample Site L RADIAL, pH 7.30 L, Bicarbonate Actual 36.3 H, POC Total CO2 38, Base Excess 10 H, O2 Saturation 99, O2 % 100, ABG pCO2 73.1 H*, ABG pO2 144 H, Gustavo Test POS, Respiration Rate 18, Minute Volume 9.00, Vent Mode A-C, Tidal Volume 500, POC PEEP 10, Blood Gas Notified Whom ED , Blood Gas Notified Time 1545 01/20/20 17:40: Urine Color Yellow, Urine Clarity Cloudy, Urine pH 6.0, Ur Specific [place] 1.025, Urine Protein 30 H, Urine Glucose (UA) Normal, Urine Ketones Negative, Urine Occult Blood 10 H, Urine Nitrite Negative, Urine Bilirubin Negative, Urine Urobilinogen Normal, Ur Leukocyte Esterase Negative, Urine RBC 0-5 SEEN, Urine WBC 0-5 SEEN, Ur Squamous Epith Cells 0 SEEN, Ur Renal Epithelial Cell 0-5 SEEN, Calcium Oxalate Crystal 1+, Amorphous Sediment 1+, Urine Bacteria RARE, Hyaline Casts 10-25 SEEN, Fine Granular Casts 5-10 SEEN, Urine Mucus 0 SEEN 01/21/20 00:22: POC Glucose 175 H 01/21/20 03:50: WBC 11.4 H, RBC 3.35 L, Hgb 9.5 L, Hct 32.0 L, MCV 95.5 H D, MCH 28.4, MCHC 29.7 L D, RDW Std Deviation 50.0 H, RDW Coeff of [place] 14.2, Plt Count 623 H, MPV 10.1, Immature Gran % (Auto) 1.200 H, Neut % (Auto) 78.9 H, Lymph % (Auto) 10.6 L, [place] % (Auto) 6.5, Eos % (Auto) 2.3, Baso % (Auto) 0.5, Absolute Neuts (auto) 9.0 H, Absolute Lymphs (auto) 1.21, Nucleated RBC % 0 01/21/20 03:50: Sodium 137, Potassium 3.8, Chloride 97 L, Carbon Dioxide 33.0 H, Anion Gap 7, BUN 34 H, Creatinine 1.47 H, Estim Creat Clear Calc 57.92, Est GFR (MDRD) Af Amer 63, Est GFR (MDRD) Non-Af 52 L, BUN/Creatinine Ratio 23.1 H, Glucose 203 H, Calcium 7.8 L, Total Bilirubin 0.60, AST 24, ALT 31, Alkaline Phosphatase 84, Total Protein 6.5, Albumin 1.6 L, Globulin 4.9 H, Albumin/Globulin Ratio 0.3 L 01/21/20 10:19: POC Glucose 179 H Current Medications Acetaminophen (Tylenol) 650 mg RECTAL Q4H PRN PRN PRN Reason: Pain Score 1-10/Temp > 100.7 F Albuterol/Ipratropium (Duoneb) 3 ml INHALATION Q4H.RT [facility] Last Admin: 01/21/20 15:28 Dose: 3 ml Documented by: Amiodarone HCl (Cordarone) 200 mg GT DAILY [facility] Last Admin: 01/21/20 09:52 Dose: 200 mg Documented by: Apixaban (Eliquis) 5 mg GT BID [facility] Last Admin: 01/21/20 09:52 Dose: 5 mg Documented by: Aspirin (Aspirin, Baby) 81 mg GT DAILY [facility] Last Admin: 01/21/20 09:52 Dose: 81 mg Documented by: Atorvastatin Calcium (Lipitor) 80 mg GT QHS [facility] Last Admin: 01/20/20 22:44 Dose: Not Given Documented by: Chlorhexidine Gluconate () 15 ml PO BID [facility] Last Admin: 01/21/20 10:33 Dose: 15 ml Documented by: Dextrose (D50w Syringe) 0 gm IV X1 PRN; Protocol PRN Reason: Hypoglycemia Furosemide (Lasix) 40 mg IV Q8 [facility] Last Admin: 01/21/20 14:07 Dose: 40 mg Documented by: Gabapentin (Neurontin) 200 mg GT DAILY [facility] Last Admin: 01/21/20 09:52 Dose: 200 mg Documented by: Glucagon () 1 mg IM .X1 PRN PRN Reason: Hypoglycemia Fentanyl () 100 mls @ 5 mls/hr IV UD [facility]; Protocol Last Titration: 01/21/20 16:00 Dose: 100 mcg/hr, 10 mls/hr Documented by: Norepinephrine Bitartrate 8 mg (/ Sodium Chloride) 250 mls @ 9.375 mls/hr CONT INF .[id number] [facility]; Protocol Last Titration: 01/21/20 16:00 Dose: 5 mcg/min, 9.4 mls/hr Documented by: Sodium Chloride () 250 mls @ 15 mls/hr IV .[id number] PRN PRN Reason: Saline Flush Sodium Chloride () 250 mls @ 15 mls/hr IV .[id number] PRN PRN Reason: Additional IVPB Infusion Propofol (Diprivan) 1,000 mg in 100 mls @ 8.97 mls/hr CONT INF .Q11H9M [facility]; Protocol Last Titration: 01/21/20 16:00 Dose: 5.57 mcg/kg/min, 5 mls/hr Documented by: Piperacillin Sod/Tazobactam (Sod 3.375 gm/ Sodium Chloride) 50 mls @ 12.5 mls/hr IV Q8 [facility] Last Admin: 01/21/20 14:07 Dose: 12.5 mls/hr Documented by: Enteral Nutritional Formula (Vital Af 1.2 Alli Liquid) 1,000 mls @ 70 mls/hr GT .[id number] [facility] Last Admin: 01/21/20 12:24 Dose: 70 mls/hr Documented by: Insulin Human Lispro (Humalog Kwikpen (Bkc)) 0 unit SC Q6H [facility]; Protocol Last Admin: 01/21/20 10:39 Dose: 1 u Documented by: Polyethylene Glycol (Miralax) 17 gm GT DAILY [facility] Last Admin: 01/21/20 09:52 Dose: 17 gm Documented by: Potassium Chloride (K-Dur) 20 meq PO DAILY [facility] Last Admin: 01/21/20 09:52 Dose: 20 meq Documented by: Sodium Chloride () 10 - 40 ml IV UD PRN PRN Reason: SALINE FLUSH Last Admin: 01/20/20 23:54 Dose: 10 ml Documented by: Assessment/Plan All Active Problems (Last Reviewed 01/20/20 @ 09:[address] Ian Rondon MD) Thrombocytosis (Acute) Acute exacerbation of CHF (congestive heart failure) (Resolved) 1-acute kidney injury. Creatinine was 0.98 mg/dL on January 16. ROBERT is likely prerenal from hemodynamic instability related to dynamic shock. Serum creatinine peaked at 1.6 at admission and improved to 1.4 this morning. Patient is making adequate amount of urine. I am okay to resume diuretics as long map more than 65. No need for renal placement therapy. I will continue to monitor renal function panel and urine output. Please avoid KARISSA inhibitor or ARB for now. No IV contrast unless absolutely necessary. 2-acute hypoxic and hypercapnic respiratory failure. Okay to diuresis patient from nephrology standpoint. I will defer vent management to the material engineer. 3-hemodynamic shock. Likely related to sedation. Patient might also be septic possible pneumonia. I will defer hemodynamic support and IV antibiotics to the ICU team. Thank you for the consult, renal team will continue to follow. Please call if any question at [phone] Braden Whitley MD
[2020-01-21 17:05] LABS: Bedside Glucose 194 mg/dL (70-110)
[2020-01-21] MEDS: Atorvastatin Calcium 80 MG Tablet GT (21:23)
[2020-01-21] MEDS: 0.9% Saline Lock 10 ML Syringe IV (21:24)
[2020-01-21 21:31] LABS: Bedside Glucose 201 mg/dL (70-110)
[2020-01-22] VITALS (38 sets, daily range): BP systolic 84–152; BP diastolic 50–83; PULSE 18–132; RESP 18–26; TEMP 37.2–37.7; O2SAT 91–99
[2020-01-22] MEDS: fentaNYL drip 100 ML 10 MCG IV ×2 (00:49→14:00)
[2020-01-22 00:50] LABS: Bedside Glucose 221 mg/dL (70-110)
[2020-01-22] MEDS: Ipratropium/Albuterol Sulfate 3 ML AMPUL.NEB INHALATION ×6 (02:41→22:10)
[2020-01-22 04:38] LABS: Absolute Lymphocyte Count 1.26 X10^3/uL (0.83-4.51); Absolute Neutrophil Count 9.3 X10^3/uL (2.0-7.7); Basophil# 0.04 X10^3/uL; Basophil% 0.3 % (0-1); Eosinophils% 1.7 % (0-5); Hematocrit 29.9 % (40-54); Hemoglobin 9.2 g/dL (13.0-16.5); Lymphocyte # 1.26 X10^3/ul (4.0); Lymphocyte % 10.9 % (19-41); Mean Corp Hgb Conc 30.8 g/dL (32-36); Mean Corpuscular Hgb 28.2 pg (27.0-32.0); Mean Corpuscular Volume 91.7 fL (80-94); Mean Platelet Vol. 10.3 fl (6.2-12.0); Monocyte# 0.62 X10^3/uL; Monocyte% 5.4 % (0-10); NRBC Flagged by Analyzer 0 % (0-5); Neutrophil # 9.27 X10^3/uL (2.7-7.7); Neutrophil % 80.6 % (47-70); Platelet Count 459 K/mm3 (150-450); RBC Distribution Width CV 14.6 % (11.6-14.6); RBC Distribution Width SD 49.1 fl (35.1-43.9); Red Blood Count 3.26 M/mm3 (4.6-6.2); White Blood Count 11.5 K/mm3 (4.4-11.0)
[2020-01-22 04:49] LABS: ALB/GLOB Ratio 0.3 RATIO (0.9-2.4); AST(SGOT) 27 U/L (15-37); Alanine Aminotransfer ALT/SGPT 29 U/L (16-61); Albumin, Serum 1.6 g/dL (3.2-5.0); Alkaline Phosphatase 81 U/L (45-117); Anion Gap 8 (5-15); BUN 32 mg/dL (7-18); Calcium,Total 7.8 mg/dL (8.5-10.1); Chloride 96 mmol/L (98-107); Creatinine, Serum 1.39 mg/dL (0.70-1.30); EST Glomerular Filtration Rate 55 mL/min (>60); Est Glom Filt Rate - Afr Amer 67 mL/min (>60); Estimated Creatinine Clearance 61.25 ml/min; Globulin 4.7 g/dL (2.2-4.2); Glucose 256 mg/dL (74-106); Potassium 3.6 mmol/L (3.5-5.1); Protein, Total 6.3 g/dL (6.4-8.2); Sodium Level 138 mmol/L (136-145)
--- NOTE | 2020-01-22 05:15 | EKG12_ITS ---
Test Reason : TACHYCARDIA Blood Pressure : / mmHG Vent. Rate : 118 BPM Atrial Rate : 144 BPM P-R Int : 000 ms QRS Dur : 108 ms QT Int : 336 ms P-R-T Axes : 000 035 250 degrees QTc Int : 470 ms Atrial fibrillation Inferior infarct , age undetermined ST & T wave abnormality, consider lateral ischemia or digitalis effect Abnormal ECG When compared with ECG of 20-JAN-2020 17:24, MANUAL COMPARISON REQUIRED, DATA IS UNCONFIRMED Confirmed by ELDA CHAPPELL, GALI ([id number]), editor trade journal RAGHAVENDRA MARCOS ([id number] on 01/24/2020 3:50:45 PM Referred By: NELLA Confirmed By:GALI SCHROEDER MD
[2020-01-22] MEDS: Insulin Lispro 100 UNIT/ML INSULN.PEN SC ×4 (05:39→21:22)
[2020-01-22] MEDS: Furosemide 40 MG/4 ML Vial IV ×3 (05:40→21:21)
--- NOTE | 2020-01-22 06:52 | PCM.PN.INT ---
Subjective: Patient did okay overnight. Patient was able to come off of pressor therapy despite diuretics. Patient did have a spontaneous breathing trial this morning, but was unable to complete a full hour, so was reinitiated on sedation. Patient has remained in A. fib with intermittent RVR. Patient is tolerating tube feeds. No fevers have been noted. General: Alert, Cooperative, No apparent distress, - - Good vent synchrony. RASS -1. HEENT: Atraumatic, PERRLA, EOMI, Normocephalic, - - No scleral icterus or injection noted Oral: Moist Mucosa, No Gingival or Mucosal Lesions/ Ulcerations Neck: Supple, No Nodes, Trachea Midline, JVD, Right Lungs: No rhonchi, No wheeze, Diminished, Rales, - - Symmetric expansion. Cardiovascular: Normal S1, Normal S2, No murmurs, Irregular Rate, No rub noted, No Gallop Abdomen: Bowel Sounds Present, Soft, Non Tender, Distended, Obese, - - Possible fluid wave Extremities: No clubbing, No cyanosis, Capillary Refill Less than 3 Seconds, Edema - 3+ anasarca Skin: No rashes, No breakdown Musculoskeletal: No Tenderness to Palpation of Joints or Extremities Lymphatic: No Cervical, Supraclavicular, or Inguinal Adenopathy Neurological: Cranial nerves II-XII grossly intact, Neuro grossly intact, Motor Exam 5/5 strength throughout Psych/Mental Status: Normal Affect, Appropriate Vital Signs Temp Pulse Resp BP Pulse Ox 37.4 C H 115 H 18 115/70 95 01/22/20 06:00 01/22/20 06:00 01/22/20 06:00 01/22/20 06:00 01/22/20 06:00 Oxygen Flow Rate (L/min) 15 Oxygen Delivery Method Mechanical Ventilator Weight: 147.7 kg Body Mass Index (BMI) 44.6 Finger Stick Blood Glucose 128 Intake and Output for Last 24 Hours 01/20/20 01/21/20 01/22/20 23:59 23:59 23:59 Intake Total 775.95 / 808.65 693.69 / 782.69 1051.00 / 1051.00 Output Total 5 / 5 1850 / 1850 Balance 775.95 / 308.65 -1331.31 / -2342.31 -799.00 / -799.00 Labs (Last 48 Hours) 01/20/20 01/20/20 01/20/20 16:20 16:20 16:20 WBC 11.0 RBC 3.91 L Hgb 11.0 L Hct 39.9 L MCV 102.0 H D MCH 28.1 MCHC 27.6 L D RDW Std Deviation 53.0 H RDW Coeff of [place] 14.2 Plt Count 652 H MPV 10.1 Immature Gran % (Auto) 1.500 H Neut % (Auto) 85.3 H Lymph % (Auto) 6.9 L [place] % (Auto) 5.3 Eos % (Auto) 0.5 Baso % (Auto) 0.5 Absolute Neuts (auto) 9.4 H Absolute Lymphs (auto) 0.76 L Nucleated RBC % 0 Specimen Type Sample Site pH Bicarbonate Actual POC Total CO2 Base Excess O2 Saturation O2 % ABG pCO2 ABG pO2 Gustavo Test Respiration Rate Minute Volume Vent Mode Tidal Volume POC PEEP Blood Gas Notified Whom Blood Gas Notified Time Sodium 136 Potassium 5.2 H Chloride 96 L Carbon Dioxide 38.0 H Anion Gap 2 L BUN 32 H Creatinine 1.69 H Estim Creat Clear Calc 50.38 Est GFR (MDRD) Af Amer 53 L Est GFR (MDRD) Non-Af 44 L BUN/Creatinine Ratio 18.9 Glucose 256 H Lactic Acid 0.9 Calcium 8.6 Total Bilirubin 0.30 AST 29 ALT 39 Alkaline Phosphatase 97 Troponin I 0.051 H B-Natriuretic Peptide Total Protein 7.5 Albumin 1.9 L Globulin 5.6 H Albumin/Globulin Ratio 0.3 L Urine Color Urine Clarity Urine pH Ur Specific [place] Urine Protein Urine Glucose (UA) Urine Ketones Urine Occult Blood Urine Nitrite Urine Bilirubin Urine Urobilinogen Ur Leukocyte Esterase Urine RBC Urine WBC Ur Squamous Epith Cells Ur Renal Epithelial Cell Calcium Oxalate Crystal Amorphous Sediment Urine Bacteria Hyaline Casts Fine Granular Casts Urine Mucus COVID-19 ([place]) POC Glucose 01/20/20 01/20/20 01/20/20 16:20 16:43 17:04 WBC RBC Hgb Hct MCV MCH MCHC RDW Std Deviation RDW Coeff of [place] Plt Count MPV Immature Gran % (Auto) Neut % (Auto) Lymph % (Auto) [place] % (Auto) Eos % (Auto) Baso % (Auto) Absolute Neuts (auto) Absolute Lymphs (auto) Nucleated RBC % Specimen Type ART Sample Site L RADIAL pH 7.30 L Bicarbonate Actual 36.3 H POC Total CO2 38 Base Excess 10 H O2 Saturation 99 O2 % 100 ABG pCO2 73.1 H* ABG pO2 144 H Gustavo Test POS Respiration Rate 18 Minute Volume 9.00 Vent Mode A-C Tidal Volume 500 POC PEEP 10 Blood Gas Notified Whom ED MD Blood Gas Notified Time 1545 Sodium Potassium Chloride Carbon Dioxide Anion Gap BUN Creatinine Estim Creat Clear Calc Est GFR (MDRD) Af Amer Est GFR (MDRD) Non-Af BUN/Creatinine Ratio Glucose Lactic Acid Calcium Total Bilirubin AST ALT Alkaline Phosphatase Troponin I B-Natriuretic Peptide 548.4 H Total Protein Albumin Globulin Albumin/Globulin Ratio Urine Color Urine Clarity Urine pH Ur Specific [place] Urine Protein Urine Glucose (UA) Urine Ketones Urine Occult Blood Urine Nitrite Urine Bilirubin Urine Urobilinogen Ur Leukocyte Esterase Urine RBC Urine WBC Ur Squamous Epith Cells Ur Renal Epithelial Cell Calcium Oxalate Crystal Amorphous Sediment Urine Bacteria Hyaline Casts Fine Granular Casts Urine Mucus COVID-19 ([place]) Cancelled POC Glucose 01/20/20 01/21/20 01/21/20 17:40 00:22 03:50 WBC 11.4 H RBC 3.35 L Hgb 9.5 L Hct 32.0 L MCV 95.5 H D MCH 28.4 MCHC 29.7 L D RDW Std Deviation 50.0 H RDW Coeff of [place] 14.2 Plt Count 623 H MPV 10.1 Immature Gran % (Auto) 1.200 H Neut % (Auto) 78.9 H Lymph % (Auto) 10.6 L [place] % (Auto) 6.5 Eos % (Auto) 2.3 Baso % (Auto) 0.5 Absolute Neuts (auto) 9.0 H Absolute Lymphs (auto) 1.21 Nucleated RBC % 0 Specimen Type Sample Site pH Bicarbonate Actual POC Total CO2 Base Excess O2 Saturation O2 % ABG pCO2 ABG pO2 Gustavo Test Respiration Rate Minute Volume Vent Mode Tidal Volume POC PEEP Blood Gas Notified Whom Blood Gas Notified Time Sodium Potassium Chloride Carbon Dioxide Anion Gap BUN Creatinine Estim Creat Clear Calc Est GFR (MDRD) Af Amer Est GFR (MDRD) Non-Af BUN/Creatinine Ratio Glucose Lactic Acid Calcium Total Bilirubin AST ALT Alkaline Phosphatase Troponin I B-Natriuretic Peptide Total Protein Albumin Globulin Albumin/Globulin Ratio Urine Color Yellow Urine Clarity Cloudy Urine pH 6.0 Ur Specific [place] 1.025 Urine Protein 30 H Urine Glucose (UA) Normal Urine Ketones Negative Urine Occult Blood 10 H Urine Nitrite Negative Urine Bilirubin Negative Urine Urobilinogen Normal Ur Leukocyte Esterase Negative Urine RBC 0-5 SEEN Urine WBC 0-5 SEEN Ur Squamous Epith Cells 0 SEEN Ur Renal Epithelial Cell 0-5 SEEN Calcium Oxalate Crystal 1+ Amorphous Sediment 1+ Urine Bacteria RARE Hyaline Casts 10-25 SEEN Fine Granular Casts 5-10 SEEN Urine Mucus 0 SEEN COVID-19 ([place]) POC Glucose 175 H 01/21/20 01/21/20 01/21/20 03:50 10:19 17:01 WBC RBC Hgb Hct MCV MCH MCHC RDW Std Deviation RDW Coeff of [place] Plt Count MPV Immature Gran % (Auto) Neut % (Auto) Lymph % (Auto) [place] % (Auto) Eos % (Auto) Baso % (Auto) Absolute Neuts (auto) Absolute Lymphs (auto) Nucleated RBC % Specimen Type Sample Site pH Bicarbonate Actual POC Total CO2 Base Excess O2 Saturation O2 % ABG pCO2 ABG pO2 Gustavo Test Respiration Rate Minute Volume Vent Mode Tidal Volume POC PEEP Blood Gas Notified Whom Blood Gas Notified Time Sodium 137 Potassium 3.8 Chloride 97 L Carbon Dioxide 33.0 H Anion Gap 7 BUN 34 H Creatinine 1.47 H Estim Creat Clear Calc 57.92 Est GFR (MDRD) Af Amer 63 Est GFR (MDRD) Non-Af 52 L BUN/Creatinine Ratio 23.1 H Glucose 203 H Lactic Acid Calcium 7.8 L Total Bilirubin 0.60 AST 24 ALT 31 Alkaline Phosphatase 84 Troponin I B-Natriuretic Peptide Total Protein 6.5 Albumin 1.6 L Globulin 4.9 H Albumin/Globulin Ratio 0.3 L Urine Color Urine Clarity Urine pH Ur Specific [place] Urine Protein Urine Glucose (UA) Urine Ketones Urine Occult Blood Urine Nitrite Urine Bilirubin Urine Urobilinogen Ur Leukocyte Esterase Urine RBC Urine WBC Ur Squamous Epith Cells Ur Renal Epithelial Cell Calcium Oxalate Crystal Amorphous Sediment Urine Bacteria Hyaline Casts Fine Granular Casts Urine Mucus COVID-19 ([place]) POC Glucose 179 H 194 H 01/21/20 01/22/20 01/22/20 21:21 00:42 04:15 WBC 11.5 H RBC 3.26 L Hgb 9.2 L Hct 29.9 L MCV 91.7 MCH 28.2 MCHC 30.8 L RDW Std Deviation 49.1 H RDW Coeff of [place] 14.6 Plt Count 459 H MPV 10.3 Immature Gran % (Auto) 1.100 H Neut % (Auto) 80.6 H Lymph % (Auto) 10.9 L [place] % (Auto) 5.4 Eos % (Auto) 1.7 Baso % (Auto) 0.3 Absolute Neuts (auto) 9.3 H Absolute Lymphs (auto) 1.26 Nucleated RBC % 0 Specimen Type Sample Site pH Bicarbonate Actual POC Total CO2 Base Excess O2 Saturation O2 % ABG pCO2 ABG pO2 Gustavo Test Respiration Rate Minute Volume Vent Mode Tidal Volume POC PEEP Blood Gas Notified Whom Blood Gas Notified Time Sodium Potassium Chloride Carbon Dioxide Anion Gap BUN Creatinine Estim Creat Clear Calc Est GFR (MDRD) Af Amer Est GFR (MDRD) Non-Af BUN/Creatinine Ratio Glucose Lactic Acid Calcium Total Bilirubin AST ALT Alkaline Phosphatase Troponin I B-Natriuretic Peptide Total Protein Albumin Globulin Albumin/Globulin Ratio Urine Color Urine Clarity Urine pH Ur Specific [place] Urine Protein Urine Glucose (UA) Urine Ketones Urine Occult Blood Urine Nitrite Urine Bilirubin Urine Urobilinogen Ur Leukocyte Esterase Urine RBC Urine WBC Ur Squamous Epith Cells Ur Renal Epithelial Cell Calcium Oxalate Crystal Amorphous Sediment Urine Bacteria Hyaline Casts Fine Granular Casts Urine Mucus COVID-19 ([place]) POC Glucose 201 H 221 H 01/22/20 04:15 WBC RBC Hgb Hct MCV MCH MCHC RDW Std Deviation RDW Coeff of [place] Plt Count MPV Immature Gran % (Auto) Neut % (Auto) Lymph % (Auto) [place] % (Auto) Eos % (Auto) Baso % (Auto) Absolute Neuts (auto) Absolute Lymphs (auto) Nucleated RBC % Specimen Type Sample Site pH Bicarbonate Actual POC Total CO2 Base Excess O2 Saturation O2 % ABG pCO2 ABG pO2 Gustavo Test Respiration Rate Minute Volume Vent Mode Tidal Volume POC PEEP Blood Gas Notified Whom Blood Gas Notified Time Sodium 138 Potassium 3.6 Chloride 96 L Carbon Dioxide 34.0 H Anion Gap 8 BUN 32 H Creatinine 1.39 H Estim Creat Clear Calc 61.25 Est GFR (MDRD) Af Amer 67 Est GFR (MDRD) Non-Af 55 L BUN/Creatinine Ratio 23.0 H Glucose 256 H Lactic Acid Calcium 7.8 L Total Bilirubin 0.60 AST 27 ALT 29 Alkaline Phosphatase 81 Troponin I B-Natriuretic Peptide Total Protein 6.3 L Albumin 1.6 L Globulin 4.7 H Albumin/Globulin Ratio 0.3 L Urine Color Urine Clarity Urine pH Ur Specific [place] Urine Protein Urine Glucose (UA) Urine Ketones Urine Occult Blood Urine Nitrite Urine Bilirubin Urine Urobilinogen Ur Leukocyte Esterase Urine RBC Urine WBC Ur Squamous Epith Cells Ur Renal Epithelial Cell Calcium Oxalate Crystal Amorphous Sediment Urine Bacteria Hyaline Casts Fine Granular Casts Urine Mucus COVID-19 ([place]) POC Glucose Microbiology 01/20/20 16:43 Mucosa - Nasopharyngeal Coronavirus COVID-19 PCR - Final Medical Necessity - Tobacco Use Smoking Status: Smoker, status unknown Tobacco Use: Non-smoker Assessment/Plan All Active Problems (Last Reviewed 01/20/20 @ 09:[address] Ian Rondon MD) Thrombocytosis (Acute) Acute exacerbation of CHF (congestive heart failure) (Resolved) RECOMMENDATIONS: 1. Consider cardiology consult 2. Continue active diuresis 3. Spontaneous breathing and awakening trials per protocol 4. Wean oxygen as tolerated 5. Discontinue antibiotics 6. Potassium supplementation given active diuresis IMPRESSIONS: 1. Acute hypoxic respiratory failure secondary to acute on chronic diastolic congestive heart failure secondary to A. fib with RVR Patient appears to be clinically overloaded at this time. Patient with significant weight gain of over 5 kg over the last 2 days following discharge. Previous echocardiograms have shown preserved ejection fraction. It is unclear if this needs to be repeated. Patient may have an element of worsening secondary to RVR associated with uncontrolled sleep apnea. Low clinical suspicion for infectious etiology, so will discontinue antibiotics. Spontaneous breathing and awakening trials per protocol 2. Shock Resolved. Patient may have an element of cardiogenic shock secondary to significant fluid overload with 5 kg of weight gain over the last 2 days. Patient currently is off of pressor therapy despite active diuresis indicating probable cardiac distention with cardiogenic shock as an etiology. Continue active diuresis. 3. Probable untreated obstructive sleep apnea Patient does not carry a diagnosis of obstructive sleep apnea that I have been able to find. Patient does have a body habitus suggestive of obstructive sleep apnea. Patient had a sleep study scheduled for the . Patient currently intubated. Likely will need to be discharged to the sleep center to ensure that noninvasive therapy can be continued to avoid future complications. 4. Acute kidney injury Clinical suspicion for prerenal etiology. Clinically, improving with diuresis indicating patient is overloaded and this may be secondary to poor [place] forces with poor renal perfusion. Will continue Lasix therapy given high volume status noted on physical exam. Patient will be given some potassium, but this will need to be monitored. 5. Hyperlipidemia/morbid obesity/diabetes mellitus type 2/hypertension Complicates care, management, recovery and prognosis. Will need to watch blood sugars closely given probable endogenous steroid production. Patient has received aspirin and statin. Monitor blood pressure closely. Echo has not shown any tamponade physiology. TIME: 37 minutes critical care time spent addressing patient's acute hypoxic respiratory failure, shock, review of all data and collaboration with care team. (5:30 AM to 6:30 AM) 9xxxx: [id number] Critical care first hour
--- NOTE | 2020-01-22 07:39 | PN_ITS ---
Patient Problems: Active and Suspected Problems (Last Reviewed 01/20/20 @ 09:[address] Ian Rondon MD) Thrombocytosis (Acute) Reason for Visit: Follow-up on respiratory failure/Acute on chronic CHF Subjective: Patient seen and examined. He is alert, interactive. Off pressors. No otehr acute events overnight. Objective: Physical exam: General: Alert, Lethargic, - - intubated, on mechanical ventilator HEENT: Atraumatic, PERRLA, EOMI, Normocephalic Oral: Moist Mucosa Neck: Supple Lungs: Diminished Cardiovascular: Regular rate, Regular Rhythm, Normal S1, Normal S2, Irregular Rate Abdomen: Bowel Sounds Present, Soft, Non Tender, No Hepato-splenomegaly, Distended, Obese Extremities: Edema - Bipedal edema +1-2 Skin: No rashes Musculoskeletal: No Tenderness to Palpation of Joints or Extremities Lymphatic: No Cervical, Supraclavicular, or Inguinal Adenopathy Neurological: Cranial nerves II-XII grossly intact, Neuro grossly intact Psych/Mental Status: Normal Affect Vitals/I&O's: Vital Signs Temp Pulse Resp BP Pulse Ox 99.3 F H 107 H 18 118/77 97 01/22/20 07:09 01/22/20 07:09 01/22/20 07:09 01/22/20 07:09 01/22/20 07:09 Oxygen Flow Rate (L/min) 15 Oxygen Delivery Method Mechanical Ventilator Weight: 147.7 kg Body Mass Index (BMI) 44.6 Finger Stick Blood Glucose 128 Intake and Output for Last 24 Hours 01/20/20 01/21/20 01/22/20 23:59 23:59 23:59 Intake Total 775.95 / 808.65 693.69 / 782.69 1070.00 / 1070.00 Output Total 5 / 5 1850 / 1850 Balance 775.95 / 308.65 -1331.31 / -2342.31 -780.00 / -780.00 Microbiology Past 72 Hours 01/20/20 16:43 Mucosa - Nasopharyngeal Coronavirus COVID-19 PCR - Final Laboratory Results 01/21/20 10:19: POC Glucose 179 H 01/21/20 17:01: POC Glucose 194 H 01/21/20 21:21: POC Glucose 201 H 01/22/20 00:42: POC Glucose 221 H 01/22/20 04:15: WBC 11.5 H, RBC 3.26 L, Hgb 9.2 L, Hct 29.9 L, MCV 91.7, MCH 28.2, MCHC 30.8 L, RDW Std Deviation 49.1 H, RDW Coeff of [place] 14.6, Plt Count 459 H, MPV 10.3, Immature Gran % (Auto) 1.100 H, Neut % (Auto) 80.6 H, Lymph % (Auto) 10.9 L, [place] % (Auto) 5.4, Eos % (Auto) 1.7, Baso % (Auto) 0.3, Absolute Neuts (auto) 9.3 H, Absolute Lymphs (auto) 1.26, Nucleated RBC % 0 01/22/20 04:15: Sodium 138, Potassium 3.6, Chloride 96 L, Carbon Dioxide 34.0 H, Anion Gap 8, BUN 32 H, Creatinine 1.39 H, Estim Creat Clear Calc 61.25, Est GFR (MDRD) Af Amer 67, Est GFR (MDRD) Non-Af 55 L, BUN/Creatinine Ratio 23.0 H, Glucose 256 H, Calcium 7.8 L, Total Bilirubin 0.60, AST 27, ALT 29, Alkaline Phosphatase 81, Total Protein 6.3 L, Albumin 1.6 L, Globulin 4.7 H, Albumin/Globulin Ratio 0.3 L Current Medications Acetaminophen (Tylenol) 650 mg RECTAL Q4H PRN PRN PRN Reason: Pain Score 1-10/Temp > 100.7 F Albuterol/Ipratropium (Duoneb) 3 ml INHALATION Q4H.RT [facility] Last Admin: 01/22/20 07:05 Dose: 3 ml Documented by: Amiodarone HCl (Cordarone) 200 mg GT DAILY [facility] Last Admin: 01/21/20 09:52 Dose: 200 mg Documented by: Apixaban (Eliquis) 5 mg GT BID [facility] Last Admin: 01/21/20 21:22 Dose: 5 mg Documented by: Aspirin (Aspirin, Baby) 81 mg GT DAILY [facility] Last Admin: 01/21/20 09:52 Dose: 81 mg Documented by: Atorvastatin Calcium (Lipitor) 80 mg GT QHS [facility] Last Admin: 01/21/20 21:23 Dose: 80 mg Documented by: Chlorhexidine Gluconate () 15 ml PO BID [facility] Last Admin: 01/21/20 21:34 Dose: 15 ml Documented by: Dextrose (D50w Syringe) 0 gm IV X1 PRN; Protocol PRN Reason: Hypoglycemia Furosemide (Lasix) 40 mg IV Q8 [facility] Last Admin: 01/22/20 05:40 Dose: 40 mg Documented by: Gabapentin (Neurontin) 200 mg GT DAILY [facility] Last Admin: 01/21/20 09:52 Dose: 200 mg Documented by: Glucagon () 1 mg IM .X1 PRN PRN Reason: Hypoglycemia Fentanyl () 100 mls @ 5 mls/hr IV UD [facility]; Protocol Last Titration: 01/22/20 07:00 Dose: 100 mcg/hr, 10 mls/hr Documented by: Sodium Chloride () 250 mls @ 15 mls/hr IV .[id number] PRN PRN Reason: Saline Flush Sodium Chloride () 250 mls @ 15 mls/hr IV .[id number] PRN PRN Reason: Additional IVPB Infusion Propofol (Diprivan) 1,000 mg in 100 mls @ 8.97 mls/hr CONT INF .[id number] [facility]; Protocol Last Admin: 01/22/20 07:35 Dose: Not Given Documented by: Enteral Nutritional Formula (Vital Af 1.2 Alli Liquid) 1,000 mls @ 70 mls/hr GT .[id number] [facility] Last Admin: 01/22/20 01:33 Dose: Not Given Documented by: Insulin Human Lispro (Humalog Kwikpen (Bkc)) 0 unit SC Q6H [facility]; Protocol Last Admin: 01/22/20 05:39 Dose: 2 u Documented by: Polyethylene Glycol (Miralax) 17 gm GT DAILY [facility] Last Admin: 01/21/20 09:52 Dose: 17 gm Documented by: Potassium Chloride (Potassium Chl Soln) 20 meq GT BIDCM [facility] Sodium Chloride () 10 - 40 ml IV UD PRN PRN Reason: SALINE FLUSH Last Admin: 01/21/20 21:24 Dose: 10 ml Documented by: STROKE Vital Signs/Narrative: Vital Signs Temp Pulse Resp BP BP Pulse Ox 01/22/20 07:09 99.3 F H 107 H 18 118/77 97 01/22/20 07:00 99.3 F H 107 H 18 118/77 97 01/22/20 06:00 99.3 F H 115 H 18 115/70 95 01/22/20 05:00 99.0 F 129 H 18 152/83 H 91 01/22/20 04:30 130 H 22 H 92 01/22/20 04:00 99.0 F 101 H 18 106/57 L 94 01/22/20 03:47 94 Medical Necessity - Tobacco Use Smoking Status: Smoker, status unknown Tobacco Use: Non-smoker Assessment/Plan All Active Problems (Last Reviewed 01/20/20 @ 09:[address] Ian Rondon MD) Thrombocytosis (Acute) Acute exacerbation of CHF (congestive heart failure) (Resolved) 59 year old M with PMHx of CAD status post CABG, atrial fibrillation, chronic diastolic CHF, hypertension, type II DM, recently discharged on 01/18/20 comes in with worsening shortness of breath and has been intubated 01/20/20. 1. Acute combined respiratory failure secondary to CO2 retention/acute on chronic diastolic CHF/undiagnosed VASILIY Patient was on BiPAP during the last hospital stay. Fortunately BiPAP could not be arranged for him on discharge because he needed a sleep study. The earliest scheduled sleep study date was 10 days from last discharge. Patient was discharged on oxygen Admitted with respiratory acidosis and has been intubated Continue mechanical ventilator, patient transition specialist consulted 2. Hypotension, likely sedative medication side-effects( propofol), improved Off pressors, will continue to monitor 2. ROBERT, admitting creatinine 1.69, likely prerenal, improving Cr today is 1.39. Recent creatinine at discharge was 0.98 Continue on Lasix, will follow-up with labs in am 3. Hyperkalemia, resolved Repeat blood work in a.m. 4. Acute on chronic diastolic CHF, on Lasix, Will trend labs 5. CAD status post CABG/atrial fibrillation, rate controlled/hypertension, all remain stable Will continue on aspirin, apixaban, amiodarone, statin Will hold off on losartan on account of current hypotension 6. Type II DM, on insulin and metformin Will hold both; continue with blood glucose checks with insulin sliding scale every 6 hourly 7. DVT prophylaxis-apixaban Will need to be discharged directly to a sleep study. He cannot be without Bipap. Inpatient E&M: [id number] [facility] Hosp L2
[2020-01-22] MEDS: Polyethylene Glycol 3350 17 GM PACKET GT (08:25)
[2020-01-22] MEDS: Chlorhexidine 15 ML PO ×2 (08:25→21:19)
[2020-01-22] MEDS: Gabapentin 100 MG Capsule 200 MG GT (08:26)
[2020-01-22] MEDS: APIXABAN 5 MG TABLET GT ×2 (08:26→21:22)
[2020-01-22] MEDS: Amiodarone 200 MG Tablet GT (08:26)
[2020-01-22] MEDS: Aspirin 81 MG TAB.CHEW GT (08:26)
[2020-01-22] MEDS: Propofol 10MG/Ml 1,000 MG/100 ML Bottle 9 MG CONT INF (09:28)
[2020-01-22] MEDS: 0.9% Saline Lock 10 ML Syringe IV ×3 (09:29→21:21)
[2020-01-22] MEDS: Famotidine 20 MG Tablet GT ×2 (09:29→21:23)
[2020-01-22 09:46] LABS: Bedside Glucose 276 mg/dL (70-110)
[2020-01-22] MEDS: Senna/Docusate Sodium 1 Tablet 2 TABLET GT ×2 (12:09→21:20)
[2020-01-22] MEDS: Propofol 10MG/Ml 1,000 MG/100 ML Bottle 13.3 MG CONT INF ×2 (15:07→21:33)
[2020-01-22] MEDS: Vital AF 1.2 Cal Liquid 1,000 ML 70 ML GT (15:57)
[2020-01-22 16:16] LABS: Bedside Glucose 280 mg/dL (70-110)
[2020-01-22] MEDS: Atorvastatin Calcium 80 MG Tablet GT (21:21)
[2020-01-22 21:31] LABS: Bedside Glucose 244 mg/dL (70-110)
[2020-01-23] VITALS (50 sets, daily range): BP systolic 77–142; BP diastolic 46–74; PULSE 66–121; RESP 14–27; TEMP 36.8–37.7; O2SAT 91–100
--- NOTE | 2020-01-23 00:45 | NURSING ---
Tube feed residual high (>250) for last two checks. Dr. Davidson informed. Tube feed on hold and will restart when residual is <100.
[2020-01-23] MEDS: fentaNYL drip 100 ML 10 MCG IV (00:52)
[2020-01-23] MEDS: Insulin Lispro 100 UNIT/ML INSULN.PEN SC ×4 (03:12→22:40)
[2020-01-23 03:16] LABS: Bedside Glucose 274 mg/dL (70-110)
[2020-01-23] MEDS: Ipratropium/Albuterol Sulfate 3 ML AMPUL.NEB INHALATION ×5 (03:23→19:10)
[2020-01-23 04:09] LABS: Absolute Lymphocyte Count 1.19 X10^3/uL (0.83-4.51); Absolute Neutrophil Count 8.9 X10^3/uL (2.0-7.7); Basophil# 0.05 X10^3/uL; Basophil% 0.5 % (0-1); Eosinophil# 0.13 X10^3/uL; Eosinophils% 1.2 % (0-5); Hematocrit 29.8 % (40-54); Hemoglobin 9.2 g/dL (13.0-16.5); Lymphocyte # 1.19 X10^3/ul (4.0); Lymphocyte % 10.9 % (19-41); Mean Corp Hgb Conc 30.9 g/dL (32-36); Mean Corpuscular Hgb 28.2 pg (27.0-32.0); Mean Corpuscular Volume 91.4 fL (80-94); Mean Platelet Vol. 10.3 fl (6.2-12.0); Monocyte# 0.54 X10^3/uL; NRBC Flagged by Analyzer 0 % (0-5); Neutrophil # 8.89 X10^3/uL (2.7-7.7); Neutrophil % 81.7 % (47-70); Platelet Count 433 K/mm3 (150-450); RBC Distribution Width CV 14.8 % (11.6-14.6); RBC Distribution Width SD 49.5 fl (35.1-43.9); Red Blood Count 3.26 M/mm3 (4.6-6.2); White Blood Count 10.9 K/mm3 (4.4-11.0)
[2020-01-23 04:23] LABS: Anion Gap 6 (5-15); BUN 31 mg/dL (7-18); BUN/Creat Ratio 22.1 RATIO (10-20); Calcium,Total 7.9 mg/dL (8.5-10.1); Chloride 98 mmol/L (98-107); EST Glomerular Filtration Rate 55 mL/min (>60); Est Glom Filt Rate - Afr Amer 66 mL/min (>60); Estimated Creatinine Clearance 60.82 ml/min; Glucose 266 mg/dL (74-106); Magnesium 1.7 mg/dL (1.6-2.6); Phosphorus 2.8 mg/dL (2.5-4.9); Potassium 3.6 mmol/L (3.5-5.1); Sodium Level 139 mmol/L (136-145)
[2020-01-23] MEDS: Furosemide 40 MG/4 ML Vial IV ×2 (05:36→22:35)
[2020-01-23] MEDS: 0.9% Saline Lock 10 ML Syringe IV ×2 (05:37→14:42)
[2020-01-23] MEDS: Propofol 10MG/Ml 1,000 MG/100 ML Bottle 13.3 MG CONT INF (06:38)
--- NOTE | 2020-01-23 07:09 | PCM.PN.INT ---
Subjective: The patient was seen and examined at the bedside this morning. Events from the last 24 hours have been reviewed. The patient currently has a low-grade fever with borderline hemodynamics. The patient failed his spontaneous breathing trial this morning as he developed significant SVT. Ventilator parameters are stable with an FiO2 requirement of 30% and PEEP of 5. Creatinine is stable at 1.4. The patient has not been diuresing well. He is currently documented to be less than 1 L negative overall for the hospital admission. The patient is currently scheduled to undergo a sleep study on the evening of January 25. Objective: The patient's most recent lab work, culture data and imaging studies have all been personally reviewed. Surface echocardiogram dated January 08 revealed normal LV size and function with an ejection fraction of 65%. Pulmonary artery systolic pressure was estimated to be 42 mmHg. Coronavirus PCR was negative. General: - - Intubated, sedated and mechanically ventilated. HEENT: Atraumatic, PERRLA, Normocephalic Oral: No Gingival or Mucosal Lesions/ Ulcerations, - - Endotracheal and OG tubes in place Neck: Supple, No Nodes, Trachea Midline Lungs: Diminished Cardiovascular: Normal S1, Normal S2, Irregular Rate Abdomen: Bowel Sounds Present, Soft, Distended, Obese Extremities: No clubbing, No cyanosis, Edema Skin: No breakdown Musculoskeletal: No Tenderness to Palpation of Joints or Extremities Lymphatic: No Cervical, Supraclavicular, or Inguinal Adenopathy Neurological: - - No focal neurological deficits. Currently sedated with a RASS of -1 Vital Signs Temp Pulse Resp BP Pulse Ox 99.6 F H 98 18 95/46 L 99 01/23/20 07:00 01/23/20 07:00 01/23/20 07:00 01/23/20 07:00 01/23/20 07:00 Oxygen Flow Rate (L/min) 15 Oxygen Delivery Method Mechanical Ventilator Weight: 323 lb 13.745 oz Body Mass Index (BMI) 44.6 Finger Stick Blood Glucose 128 Intake and Output for Last 24 Hours 01/21/20 01/22/20 01/23/20 23:59 23:59 23:59 Intake Total 693.69 / 782.69 2544.58 / 3015.88 620.01 / 620.01 Output Total 2024 / 3125 2700 / 3100 625 / 625 Balance -1331.31 / -2342.31 -155.42 / -84.12 -4.99 / -4.99 Labs (Last 48 Hours) 01/21/20 01/21/20 01/21/20 10:19 17:01 21:21 WBC RBC Hgb Hct MCV MCH MCHC RDW Std Deviation RDW Coeff of [place] Plt Count MPV Immature Gran % (Auto) Neut % (Auto) Lymph % (Auto) [place] % (Auto) Eos % (Auto) Baso % (Auto) Absolute Neuts (auto) Absolute Lymphs (auto) Nucleated RBC % Sodium Potassium Chloride Carbon Dioxide Anion Gap BUN Creatinine Estim Creat Clear Calc Est GFR (MDRD) Af Amer Est GFR (MDRD) Non-Af BUN/Creatinine Ratio Glucose Calcium Phosphorus Magnesium Total Bilirubin AST ALT Alkaline Phosphatase Total Protein Albumin Globulin Albumin/Globulin Ratio POC Glucose 179 H 194 H 201 H 01/22/20 01/22/20 01/22/20 00:42 04:15 04:15 WBC 11.5 H RBC 3.26 L Hgb 9.2 L Hct 29.9 L MCV 91.7 MCH 28.2 MCHC 30.8 L RDW Std Deviation 49.1 H RDW Coeff of [place] 14.6 Plt Count 459 H MPV 10.3 Immature Gran % (Auto) 1.100 H Neut % (Auto) 80.6 H Lymph % (Auto) 10.9 L [place] % (Auto) 5.4 Eos % (Auto) 1.7 Baso % (Auto) 0.3 Absolute Neuts (auto) 9.3 H Absolute Lymphs (auto) 1.26 Nucleated RBC % 0 Sodium 138 Potassium 3.6 Chloride 96 L Carbon Dioxide 34.0 H Anion Gap 8 BUN 32 H Creatinine 1.39 H Estim Creat Clear Calc 61.25 Est GFR (MDRD) Af Amer 67 Est GFR (MDRD) Non-Af 55 L BUN/Creatinine Ratio 23.0 H Glucose 256 H Calcium 7.8 L Phosphorus Magnesium Total Bilirubin 0.60 AST 27 ALT 29 Alkaline Phosphatase 81 Total Protein 6.3 L Albumin 1.6 L Globulin 4.7 H Albumin/Globulin Ratio 0.3 L POC Glucose 221 H 01/22/20 01/22/20 01/22/20 09:35 16:00 21:19 WBC RBC Hgb Hct MCV MCH MCHC RDW Std Deviation RDW Coeff of [place] Plt Count MPV Immature Gran % (Auto) Neut % (Auto) Lymph % (Auto) [place] % (Auto) Eos % (Auto) Baso % (Auto) Absolute Neuts (auto) Absolute Lymphs (auto) Nucleated RBC % Sodium Potassium Chloride Carbon Dioxide Anion Gap BUN Creatinine Estim Creat Clear Calc Est GFR (MDRD) Af Amer Est GFR (MDRD) Non-Af BUN/Creatinine Ratio Glucose Calcium Phosphorus Magnesium Total Bilirubin AST ALT Alkaline Phosphatase Total Protein Albumin Globulin Albumin/Globulin Ratio POC Glucose 276 H 280 H 244 H 01/23/20 01/23/20 01/23/20 03:10 04:00 04:00 WBC 10.9 RBC 3.26 L Hgb 9.2 L Hct 29.8 L MCV 91.4 MCH 28.2 MCHC 30.9 L RDW Std Deviation 49.5 H RDW Coeff of [place] 14.8 H Plt Count 433 MPV 10.3 Immature Gran % (Auto) 0.700 Neut % (Auto) 81.7 H Lymph % (Auto) 10.9 L [place] % (Auto) 5.0 Eos % (Auto) 1.2 Baso % (Auto) 0.5 Absolute Neuts (auto) 8.9 H Absolute Lymphs (auto) 1.19 Nucleated RBC % 0 Sodium 139 Potassium 3.6 Chloride 98 Carbon Dioxide 35.0 H Anion Gap 6 BUN 31 H Creatinine 1.40 H Estim Creat Clear Calc 60.82 Est GFR (MDRD) Af Amer 66 Est GFR (MDRD) Non-Af 55 L BUN/Creatinine Ratio 22.1 H Glucose 266 H Calcium 7.9 L Phosphorus 2.8 Magnesium 1.7 Total Bilirubin AST ALT Alkaline Phosphatase Total Protein Albumin Globulin Albumin/Globulin Ratio POC Glucose 274 H Clinical Impression(s) from Imaging Studies Chest X-Ray 01/20/20 16:50 IMPRESSION: Endotracheal tube tip is 4.7 cm from kyra. Stable bilateral alveolar disease and bilateral pleural effusions, more extensive on the left. Electronically Signed: Shashank Bustamante MD at 17:10 EDT Tel , Service support , KUB X-Ray 01/20/20 16:57 IMPRESSION: Enteric tube tip excluded from view in the mid to lower abdomen. Electronically Signed: Shashank Bustamante MD at 17:09 EDT Tel , Service support , Chest X-Ray 01/20/20 17:28 IMPRESSION: Right central catheter tip in right atrium. If SVC location is desired, withdrawal of the catheter by 3 to 4 cm. Stable left basilar alveolar disease and bilateral pleural effusions. There is no demonstrated pleural abnormality. Electronically Signed: Shashank Bustamante MD at 17:54 EDT Tel , Service support , Medical Necessity - Tobacco Use Smoking Status: Smoker, status unknown Tobacco Use: Non-smoker Assessment/Plan All Active Problems (Last Reviewed 01/20/20 @ 09:[address] Ian Rondon MD) Thrombocytosis (Acute) Acute exacerbation of CHF (congestive heart failure) (Resolved) RECOMMENDATIONS: 1. Transition patient from propofol to Precedex to facilitate weaning from invasive mechanical ventilatory support. 2. Wean FiO2 to maintain oxygen saturations at or above 90%. 3. Continue diuretic therapy as tolerated by renal function and hemodynamics. 4. Continue amiodarone and systemic anticoagulation with Eliquis. 5. Transition from Pepcid to Protonix for GI prophylaxis. 6. Continue to hold tube feeds. 7. Plan for spontaneous awakening and breathing trial tomorrow morning. IMPRESSIONS: 1. Acute on chronic combined respiratory failure secondary to chronic heart failure with preserved ejection fraction and atrial fibrillation with RVR The patient presented to the hospital in the volume overloaded state with 5 kg of weight gain. The patient is clinically in a state of heart failure exacerbation. He was also noted to be in atrial fibrillation with a rapid ventricular rate, which may have been worsened by his uncontrolled sleep apnea. Low clinical index of suspicion for underlying pulmonary infectious process. Recommend continuing volume optimization with IV diuretic therapy as tolerated by renal function and hemodynamic status. Wean FiO2 to maintain oxygen saturations at or above 90%. 2. Probable untreated obstructive sleep apnea The patient is currently scheduled for a sleep study on January 25. The patient can most likely be discharged directly from the hospital to the sleep lab to facilitate the completion of testing. 3. Hyperlipidemia/morbid obesity/diabetes mellitus/hypertension Complicates care, management, recovery and prognosis. Continue home medications as indicated. TIME: 38 minutes of critical care time, independent of procedures, was spent addressing the patient's acute on chronic combined respiratory failure, heart failure with preserved ejection fraction, atrial fibrillation with rapid ventricular rate, probable untreated sleep apnea, review of all data and collaboration with the care team. ([id number]) [id number] Critical care first hour
--- NOTE | 2020-01-23 07:22 | CON.PCM_ITS ---
Reason for Consult Date of Consultation: 01/23/20 Reason for Consultation: Shortness of breath History of Present Illness: The patient is a 59 year old M who was readmitted to the hospital this weekend on the day after his Zoom office visit. He is rather complicated and has had a stormy postoperative course. He is a gentleman with a known cardiac history who had undergone cardiac catheterization in November 2019. He had triple-vessel disease and underwent a cardiac bypass surgery in December 2019. He was discharged and was recently admitted to the hospital on 01/04/2020. He was noted to be dyspneic when he presented was noted to be in atrial fibrillation with a rapid ventricular response rate had evidence of respiratory distress and hypercapnia poor inspiratory effort requiring BiPAP. He was evaluated and underwent an echocardiogram which demonstrated preserved ejection fraction of 65% normal RV size and no evidence of pericardial effusion. He was treated with intravenous heparin and amiodarone and during the hospitalization developed chest pain and EKG changes necessitating an emergent cardiac catheterization. It demonstrated a patent left internal mammary artery to the left anterior descending artery, a saphenous vein graft attached to the right internal mammary artery and subsequently attached to the diagonal vessel and obtuse marginal vessels which were patent and a saphenous vein graft to the right coronary artery. The anastomotic zone was noted to have a probable moderate to severe stenosis but it was determined that it should be left on touched due to distal mild disease as well as small vessels. He recovered and was subsequently discharged. He presented back to the hospital 2 days later with shortness of breath was noted to be hypercapnic requiring BiPAP and still had elevated troponin. His EKG demonstrated atrial fibrillation with a controlled ventricular response rate no acute EKG changes were noted. He was treated medically and subsequently transferred to the progressive care unit. He developed acute respiratory failure severe anemia with a hemoglobin down to 7.2 and needed to be transferred back to the intensive care unit. He was transfused with 3 units of packed red blood cells. COVID testing was negative again. There was a plan to possibly perform an endoscopy but this was deferred by the surgeon. He did better after his transfusion was diuresed his kidney function which had deteriorated actually improved and on the day of discharge his creatinine was noted to be 0.98. His hemoglobin was up to 10.7. He did participate in an office visit and then later on his apparently found him unresponsive his CO2 was noted to be markedly elevated he was brought into the hospital appeared to be in pulmonary edema once again was transferred to the ICU and intubated. His hemoglobin has been stable and his renal status also stable. Past Medical History Allergies/Adverse Reactions: Allergies No Known Allergies Allergy (Verified 01/20/20 08:35) Home Medications: Ambulatory Orders Medication Instructions Recorded Atorvastatin Calcium [Lipitor] 80 mg PO QHS 11/17/19 Ipratropium [place] 0.06% 1 spray INHALATION DAILY PRN PRN 11/17/19 [ATROVENT NASAL SPRAY] Temazepam 15 mg PO QHS PRN PRN 11/17/19 Gabapentin [Neurontin] 200 mg PO DAILY 01/04/20 Magnesium Oxide 400 mg PO DAILY 01/04/20 Polyethylene Glycol 3350 [Miralax] 17 gm PO DAILY 01/04/20 Amiodarone HCl 200 mg PO DAILY 01/20/20 Apixaban [Eliquis] 5 mg PO BID 01/20/20 Furosemide 40 mg PO DAILY@1500 01/20/20 Insulin Glargine [Lantus SoloStar 10 units SUBCUT QHS 01/20/20 Pen] Metoprolol Tartrate [Lopressor 100 mg PO BID 01/20/20 (beta ronen)] Pantoprazole Sodium [Protonix] 40 mg PO BID 01/20/20 aspirin 81 mg chewable tablet 1 tab PO DAILY@0800 tab 01/20/20 furosemide 40 mg tablet 80 mg PO DAILY@0900 tab 01/20/20 levocetirizine 5 mg tablet 5 mg PO DAILY 01/20/20 losartan 50 mg tablet 50 mg PO DAILY 01/20/20 metformin 1,000 mg tablet 1,000 mg PO BIDCM tab 01/20/20 Past Medical History (Chronic Problems): Chronic Problems (Last Reviewed 01/20/20 @ 09:[address] Ian Rondon MD) Respiratory failure with hypoxia and hypercapnia (Chronic) History of non-ST elevation myocardial infarction (NSTEMI) (Chronic 01/04/20) 11/17/2019, 01/04/2020 Atherosclerosis of coronary artery of [place] heart without angina pectoris (Chronic) H/O coronary artery bypass surgery (Chronic 12/26/19) CABG x 4: ARREDONDO-LAD, Free ISAK from the D1 SVG-OM1, SVG-D1, SVG-RPDA 12/26/19 Chronic diastolic (congestive) heart failure (Chronic) Secondary pulmonary arterial hypertension (Chronic) Essential (primary) hypertension (Chronic) Hypercholesterolemia (Chronic) Anemia (Chronic) Surgical History: coronary bypass surgery Psychiatric History: No pertinent psych hx - *Family History Maternal Family History: Family History (Last Reviewed 01/20/20 @ 09:[address] Ian Rondon MD) Mother Hypertension Father Hypertension Heart disease History Items: Cancer - breast cancer, Hypertension Paternal Family History: Family History (Last Reviewed 01/20/20 @ 09:[address] Ian Rondon MD) Mother Hypertension Father Hypertension Heart disease History Items: Heart Disease, Hypertension Lives: Spouse/ Significant Other Smoking Status: Smoker, status unknown Tobacco Use: Non-smoker Alcohol: None Drugs: None Review of Systems - Review of Systems General: Denies: Fever, Night Sweats, Fatigue HEENT: Denies: Vision Change Cardiovascular: Reports: Shortness of Breath. Denies: Chest Discomfort, Orthopnea, PND, Peripheral Edema, Palpitations, Lightheadedness, Dizziness, Near Syncope, Syncope Respiratory: Denies: Cough, Sputum Production, Hemoptysis Gastrointestinal: Denies: Hematemesis, Hematochezia, Melena Genitourinary: Denies: Dysuria, Hematuria Skin: Denies: Rash Psychiatric: Reports: Anxiety Hematologic/ Lymphatic: Reports: Anemia Subjectve: Intubated in no distress Objective: Vital Signs Temp Pulse Resp BP Pulse Ox 99.6 F H 98 18 95/46 L 99 01/23/20 07:00 01/23/20 07:00 01/23/20 07:00 01/23/20 07:00 01/23/20 07:00 Oxygen Flow Rate (L/min) 15 Oxygen Delivery Method Mechanical Ventilator Weight: 323 lb 13.745 oz Body Mass Index (BMI) 44.6 Finger Stick Blood Glucose 128 Intake and Output for Last 24 Hours 01/21/20 01/22/20 01/23/20 23:59 23:59 23:59 Intake Total 693.69 / 782.69 2544.58 / 3015.88 620.01 / 620.01 Output Total 2024 / 5 2700 / 3100 625 / 625 Balance -1331.31 / -2342.31 -155.42 / -84.12 -4.99 / -4.99 HEENT: PERRL, EOMI, Sclera Non Icteric Neck: Supple, Good ROM, No Lymph Node Enlargement Lungs: Clear to auscultation Cardiovascular: Regular Rhythm, Normal S1, Normal S2, No Murmurs, No Rubs, No Gallops 01/23/20 04:00: Sodium 139, Potassium 3.6, Chloride 98, Carbon Dioxide 35.0 H, Anion Gap 6, BUN 31 H, Creatinine 1.40 H, Est GFR (MDRD) Af Amer 66, Est GFR (MDRD) Non-Af 55 L, BUN/Creatinine Ratio 22.1 H, Glucose 266 H, Calcium 7.9 L, Phosphorus 2.8, Magnesium 1.7 01/23/20 04:00: WBC 10.9, RBC 3.26 L, Hgb 9.2 L, Hct 29.8 L, MCV 91.4, MCH 28.2, MCHC 30.9 L, Plt Count 433, MPV 10.3, Immature Gran % (Auto) 0.700, Neut % (Auto) 81.7 H, Lymph % (Auto) 10.9 L, [place] % (Auto) 5.0, Eos % (Auto) 1.2, Baso % (Auto) 0.5, Absolute Neuts (auto) 8.9 H, Nucleated RBC % 0 Rhythm: EKG: ECHO: Stress Test: Cardiac Cath: PCI: CT Surgery: Holter monitor: EPS: PPM: CXR: Chest CT Scan: Assessment/Plan 1. Acute on chronic diastolic (congestive) heart failure I50.32 He does appear to have chronic congestive heart failure which is diastolic. He has clearly had 2 acute events which have led to rehospitalization's as well as an event during the hospital. In all these episodes it appears that he has CO2 issues. He has had echocardiograms performed twice in the last month both of which have demonstrated ejection fractions of 65%. The exact precipitating factor of these events is not entirely clear but it ap pears to be secondary to respiratory depression leading to CO2 elevation and narcosis and then pulmonary edema. He has undergone cardiac catheterization recently which has not demonstrated ischemia as an etiology. His hemoglobin also remains fairly stable. On discussion with the hospitalist as well as the high school drafting teacher it may be important for him to have a BiPAP or CPAP mask before he leaves the hospital. * Will continue with aggressive diuresis at this time. Discussed with high school drafting teacher. 2. H/O coronary artery bypass surgery Z95.1 CABG x 4: ARREDONDO-LAD, Free ISAK from the D1 SVG-OM1, SVG-D1, SVG-RPDA 12/26/19 Plan He is status post coronary artery bypass surgery as noted above. His bypass grafts were recently evaluated and were noted to be patent. The saphenous vein graft to the posterior descending artery has an anastomotic lesion but this is being treated medically. 3. History of non-ST elevation myocardial infarction (NSTEMI) I25.2 11/17/2019, 01/04/2020 Plan He had a recent non-ST elevation myocardial infarction. I recommendation at this time is to continue with medical therapy. No changes will be made. 4. Essential (primary) hypertension I10 Plan He does have a history of hypertension which appears to be under good control on the current medical therapy. I would not suggest that we make any changes at this particular time. He remains on metoprolol as well as losartan. 5. Iron deficiency anemia, unspecified iron deficiency anemia type D50.9 Plan He does have evidence of anemia. The exact precipitating etiology is not known I suspect it was due to the Eliquis. However we did not scope him and so we do not know where the source of bleeding may be. I will recommend that we obtain a hemoglobin in approximately a week. 6. Atrial fibrillation I48.91 Plan He does have atrial fibrillation the rate of which is controlled at this time it was seen in the emergency room and in the hospital to be fairly controlled I would like him to be on the 200 mg once a day and continue to monitor his heart rate and pulse. Further recommendations will be made after his next visit. He is also on metoprolol 100 mg twice a day.
--- NOTE | 2020-01-23 07:58 | RAD_ITS ---
STUDY: X-RAY CHEST REASON FOR EXAM: Male, 59 years old. Respiratory Failure TECHNIQUE: Single AP portable view of the chest. COMPARISON: June 21, 2020 FINDINGS: Right central catheter tip in right atrium. The other support devices are stable. Median sternotomy plates and wires. Stable left basilar alveolar disease and bilateral pleural effusions. Stable cardiomediastinal silhouette. Normal mediastinum and riana. Normal visualized pulmonary arteries. Normal visualized aortic arch and descending thoracic aorta. Normal visualized thoracic spine. Remote right rib trauma. There is no demonstrated abnormality of the visualized soft tissue structures of the upper abdomen. RAD/Chest 1 View (Portable) IMPRESSION: Stable left basilar alveolar disease and bilateral pleural effusions. There is no demonstrated pleural abnormality. Electronically Signed: Andreas Thacker, at 9:42 EDT Tel , Service support ,
--- NOTE | 2020-01-23 08:02 | PCM.PN.HOSP ---
Reason for Visit: Acute hypoxic and hypercarbic combined respiratory failure, status post intubation. CHF exacerbation Objective: Patient was discharged last week and will be admitted 2 days on 19 January. Had prolonged hospital stay last time with A. fib with RVR, acute hypoxic respiratory failure intubation, ileus with constipation, hypotension with severe anemia which required 3 unit of PRBC transfusion and fluid overload. Vitals/I&O's: Vital Signs Temp Pulse Resp BP Pulse Ox 99.6 F H 104 H 18 95/46 L 99 01/23/20 07:00 01/23/20 07:00 01/23/20 07:00 01/23/20 07:00 01/23/20 07:00 Oxygen Flow Rate (L/min) 15 Oxygen Delivery Method Mechanical Ventilator Weight: 323 lb 13.745 oz Body Mass Index (BMI) 44.6 Finger Stick Blood Glucose 128 Intake and Output for Last 24 Hours 01/21/20 01/22/20 01/23/20 23:59 23:59 23:59 Intake Total 693.69 / 782.69 2544.58 / 3015.88 620.01 / 620.01 Output Total 2025 / 3125 2700 / 3100 625 / 625 Balance -1331.31 / -2342.31 -155.42 / -84.12 -4.99 / -4.99 General: Alert, Cooperative, - - Intubated but awake follow simple command. HEENT: Atraumatic, PERRLA, EOMI, Normocephalic Oral: - - ET and OG tube Neck: Supple, No JVD, Negative Carotid Bruits Lungs: - - On vent support. Cardiovascular: Regular rate, Normal S1, Normal S2, No murmurs, - - panel monitor shows pulses bigeminy. Frequent PVCs. Sinus rhythm Abdomen: Bowel Sounds Present, Soft, Non Tender Extremities: Capillary Refill Less than 3 Seconds, Edema Skin: No rashes, No breakdown Musculoskeletal: No Tenderness to Palpation of Joints or Extremities, Arthritic Changes Neurological: Cranial nerves II-XII grossly intact, Neuro grossly intact Psych/Mental Status: Normal Affect, Appropriate Microbiology Past 72 Hours 01/20/20 16:43 Mucosa - Nasopharyngeal Coronavirus COVID-19 PCR - Final Laboratory Results 01/22/20 09:35: POC Glucose 276 H 01/22/20 16:00: POC Glucose 280 H 01/22/20 21:19: POC Glucose 244 H 01/23/20 03:10: POC Glucose 274 H 01/23/20 04:00: Sodium 139, Potassium 3.6, Chloride 98, Carbon Dioxide 35.0 H, Anion Gap 6, BUN 31 H, Creatinine 1.40 H, Estim Creat Clear Calc 60.82, Est GFR (MDRD) Af Amer 66, Est GFR (MDRD) Non-Af 55 L, BUN/Creatinine Ratio 22.1 H, Glucose 266 H, Calcium 7.9 L, Phosphorus 2.8, Magnesium 1.7 01/23/20 04:00: WBC 10.9, RBC 3.26 L, Hgb 9.2 L, Hct 29.8 L, MCV 91.4, MCH 28.2, MCHC 30.9 L, RDW Std Deviation 49.5 H, RDW Coeff of [place] 14.8 H, Plt Count 433, MPV 10.3, Immature Gran % (Auto) 0.700, Neut % (Auto) 81.7 H, Lymph % (Auto) 10.9 L, [place] % (Auto) 5.0, Eos % (Auto) 1.2, Baso % (Auto) 0.5, Absolute Neuts (auto) 8.9 H, Absolute Lymphs (auto) 1.19, Nucleated RBC % 0 Current Medications Acetaminophen (Tylenol) 650 mg RECTAL Q4H PRN PRN PRN Reason: Pain Score 1-10/Temp > 100.7 F Albuterol/Ipratropium (Duoneb) 3 ml INHALATION Q4H.RT [facility] Last Admin: 01/23/20 06:51 Dose: 3 ml Documented by: Amiodarone HCl (Cordarone) 200 mg GT DAILY [facility] Last Admin: 01/22/20 08:26 Dose: 200 mg Documented by: Apixaban (Eliquis) 5 mg GT BID [facility] Last Admin: 01/22/20 21:22 Dose: 5 mg Documented by: Aspirin (Aspirin, Baby) 81 mg GT DAILY [facility] Last Admin: 01/22/20 08:26 Dose: 81 mg Documented by: Atorvastatin Calcium (Lipitor) 80 mg GT QHS [facility] Last Admin: 01/22/20 21:21 Dose: 80 mg Documented by: Chlorhexidine Gluconate () 15 ml PO BID [facility] Last Admin: 01/22/20 21:19 Dose: 15 ml Documented by: Dextrose (D50w Syringe) 0 gm IV X1 PRN; Protocol PRN Reason: Hypoglycemia Famotidine (Pepcid) 20 mg GT BID [facility] Last Admin: 01/22/20 21:23 Dose: 20 mg Documented by: Furosemide (Lasix) 40 mg IV Q8 [facility] Last Admin: 01/23/20 05:36 Dose: 40 mg Documented by: Gabapentin (Neurontin) 200 mg GT DAILY [facility] Last Admin: 01/22/20 08:26 Dose: 200 mg Documented by: Glucagon () 1 mg IM .X1 PRN PRN Reason: Hypoglycemia Fentanyl () 100 mls @ 5 mls/hr IV UD [facility]; Protocol Last Titration: 01/23/20 06:38 Dose: 100 mcg/hr, 10 mls/hr Documented by: Sodium Chloride () 250 mls @ 15 mls/hr IV .[id number] PRN PRN Reason: Saline Flush Sodium Chloride () 250 mls @ 15 mls/hr IV .[id number] PRN PRN Reason: Additional IVPB Infusion Propofol (Diprivan) 1,000 mg in 100 mls @ 8.862 mls/hr CONT INF .[id number] [facility]; Protocol Last Admin: 01/23/20 06:38 Dose: 15 mcg/kg/min, 13.3 mls/hr Documented by: Enteral Nutritional Formula (Vital Af 1.2 Alli Liquid) 1,000 mls @ 70 mls/hr GT .[id number] [facility] Last Admin: 01/23/20 07:10 Dose: Not Given Documented by: Insulin Human Lispro (Humalog Kwikpen (Bkc)) 0 unit SC Q6H [facility]; Protocol Last Admin: 01/23/20 03:12 Dose: 6 u Documented by: Polyethylene Glycol (Miralax) 17 gm GT DAILY PRN PRN PRN Reason: CONSTIPATION Potassium Chlor[facility] ([facility]l [facility]n) [facility] Last Admin: 01/22/20 16:02 Dose: 20 meq Documented by: Senna/Docusate Sodium (Senokot-S, Leela-Colace) 2 tablet GT BID [facility] Last Admin: 01/22/20 21:20 Dose: 2 tablet Documented by: Sodium Chloride () 10 - 40 ml IV UD PRN PRN Reason: SALINE FLUSH Last Admin: 01/23/20 05:37 Dose: 10 ml Documented by: STROKE Vital Signs/Narrative: Vital Signs Temp Pulse Resp BP Pulse Ox 01/23/20 07:00 99.6 F H 104 H 18 95/46 L 99 01/23/20 06:51 108 H 18 01/23/20 06:42 115 H 21 H 91 01/23/20 06:00 99.2 F H 121 H 19 H 126/59 H 92 01/23/20 05:00 99.4 F H 93 16 142/56 H 97 Medical Necessity - Tobacco Use Smoking Status: Smoker, status unknown Tobacco Use: Non-smoker Assessment/Plan All Active Problems (Last Reviewed 01/20/20 @ 09:[address] Ian Rondon MD) Thrombocytosis (Acute) Acute exacerbation of CHF (congestive heart failure) (Resolved) This is a 59 year old M with PMHx of CAD status post CABG, atrial fibrillation, chronic diastolic CHF with EF 65%, hypertension, type II DM, recently discharged on 01/18/20 after prolonged hospital stay was admitted with progressive worsening shortness of breath, consistent with acute combined respiratory failure secondary to acute on chronic diastolic heart failure. 1. Acute combined respiratory failure secondary to CO2 retention/acute on chronic diastolic CHF/undiagnosed VASILIY: Patient was intubated on 01/20/2020. Last time patient was discharged on oxygen. Currently intubated. On mechanical ventilator. FiO2 30%. Higher Education Administrator consulted. Patient will need direct sleep study after discharge. At home, patient cannot live with on BiPAP. 2. Hypotension, likely sedative medication side-effects( propofol), improved: Patient is off pressors. Blood pressure 105/65. Will continue to monitor 2. ROBERT, admitting creatinine 1.69, likely prerenal, improving: Last night patient creatinine went up to 2.88 which was resolved to normal at time of discharge 0.98. This time admitted with creatinine 1.69. Creatinine is 1.4.continue Lasix. Electrolytes within acceptable limits. CO2 35 Continue on Lasix, follow-up labs. 3. Hyperkalemia, resolved 4. Acute on chronic diastolic CHF, on Lasix, On amiodarone, aspirin. Not on beta-ronen and KARISSA/ARB because of acute kidney injury and blood pressure on lower side and fluid overload/CHF exacerbation. Once euvolemic, consider beta-ronen. 5. CAD status post CABG/atrial fibrillation, rate controlled/hypertension, all remain stable. CABG x 4: ARREDONDO-LAD, Free ISAK from the D1 SVG-OM1, SVG-D1, SVG-RPDA 12/26/19 continue on aspirin, apixaban, amiodarone, statin. panel monitor shows pulses bigeminy with frequent PVCs. hold off on losartan on account of current hypotension 6. Type II DM, on insulin and metformin continue with blood glucose checks with insulin sliding scale every 6 hourly. Hold oral hypoglycemic agents. 7. Iron deficiency anemia with episode of recent possible acute blood loss anemia status post 2 units of transfusion during previous hospital stay. Patient was not scoped secondary to hemodynamic instability. DVT prophylaxis-apixaban Inpatient E&M: [id number] [facility] Hosp L3
--- NOTE | 2020-01-23 09:45 | NURSING ---
Called pt's Shirin and updated on pt's status. Also that pt is requesting his cell phone.
[2020-01-23] MEDS: Chlorhexidine 15 ML PO ×2 (10:26→22:35)
[2020-01-23] MEDS: Amiodarone 200 MG Tablet GT (10:26)
[2020-01-23] MEDS: Aspirin 81 MG TAB.CHEW GT (10:26)
[2020-01-23] MEDS: APIXABAN 5 MG TABLET GT ×2 (10:26→22:36)
[2020-01-23] MEDS: Famotidine 20 MG Tablet GT (10:27)
[2020-01-23] MEDS: Gabapentin 100 MG Capsule 200 MG GT (10:27)
[2020-01-23] MEDS: Polyethylene Glycol 3350 17 GM PACKET GT (10:28)
[2020-01-23] MEDS: Senna/Docusate Sodium 1 Tablet 2 TABLET GT ×2 (10:33→22:36)
[2020-01-23 11:01] LABS: Bedside Glucose 259 mg/dL (70-110)
--- NOTE | 2020-01-23 11:23 | CASEMGMT ---
RN PARVEEN Note: participated in ICU rounds. Pt remains on ventilator. Pt has sleep study appointment on 01/26/20- ADITI SAINI called to sleep lab, spoke with Felisha to update pt is in hospital, on ventilator. Per Dr. Heaton, plan is to extubate and if pt is medically ready, can dc to sleep lab for study. Updated that pt has oxygen @ home through [facility]. Felisha will check insurance. Per Felisha, if pt requires equipment, they attempt to get this to patient same day or next day if able to process through insurance. Alok HAWKINSN RN ACM
--- NOTE | 2020-01-23 13:03 | PN.RENAL_ITS ---
Subjective: The patient is intubated cannot obtain review of systems. - Physical Exam Vitals/I&O's: Vital Signs Temp Pulse Resp BP Pulse Ox 99.8 F H 94 18 102/52 L 99 01/23/20 11:00 01/23/20 11:21 01/23/20 11:00 01/23/20 11:00 01/23/20 11:00 Oxygen Flow Rate (L/min) 15 Oxygen Delivery Method Mechanical Ventilator Weight: 146.9 kg Body Mass Index (BMI) 44.6 Finger Stick Blood Glucose 128 Intake and Output for Last 24 Hours 01/21/20 01/22/20 01/23/20 23:59 23:59 23:59 Intake Total 693.69 / 782.69 2544.58 / 3015.88 822.86 / 822.86 Output Total 2024 / 3124 2700 / 3100 1625 / 1625 Balance -1331.31 / -2342.31 -155.42 / -84.12 -802.14 / -802.14 General: Alert, Cooperative HEENT: Atraumatic, - - Intubated Neck: Supple, Trachea Midline Lungs: Clear to auscultation, Normal air movement, - - Breath sounds anteriorly are coarse Abdomen: Bowel Sounds Present, Soft, Obese Extremities: Edema Microbiology Past 72 Hours 01/20/20 16:43 Mucosa - Nasopharyngeal Coronavirus COVID-19 PCR - Final Laboratory Results 01/22/20 16:00: POC Glucose 280 H 01/22/20 21:19: POC Glucose 244 H 01/23/20 03:10: POC Glucose 274 H 01/23/20 04:00: Sodium 139, Potassium 3.6, Chloride 98, Carbon Dioxide 35.0 H, Anion Gap 6, BUN 31 H, Creatinine 1.40 H, Estim Creat Clear Calc 60.82, Est GFR (MDRD) Af Amer 66, Est GFR (MDRD) Non-Af 55 L, BUN/Creatinine Ratio 22.1 H, Glucose 266 H, Calcium 7.9 L, Phosphorus 2.8, Magnesium 1.7 01/23/20 04:00: WBC 10.9, RBC 3.26 L, Hgb 9.2 L, Hct 29.8 L, MCV 91.4, MCH 28.2, MCHC 30.9 L, RDW Std Deviation 49.5 H, RDW Coeff of [place] 14.8 H, Plt Count 433, MPV 10.3, Immature Gran % (Auto) 0.700, Neut % (Auto) 81.7 H, Lymph % (Auto) 10.9 L, [place] % (Auto) 5.0, Eos % (Auto) 1.2, Baso % (Auto) 0.5, Absolute Neuts (auto) 8.9 H, Absolute Lymphs (auto) 1.19, Nucleated RBC % 0 01/23/20 10:35: POC Glucose 259 H Current Medications Acetaminophen (Tylenol) 650 mg RECTAL Q4H PRN PRN PRN Reason: Pain Score 1-10/Temp > 100.7 F Albuterol/Ipratropium (Duoneb) 3 ml INHALATION Q4H.RT [facility] Last Admin: 01/23/20 10:25 Dose: 3 ml Documented by: Amiodarone HCl (Cordarone) 200 mg GT DAILY [facility] Last Admin: 01/23/20 10:26 Dose: 200 mg Documented by: Apixaban (Eliquis) 5 mg GT BID [facility] Last Admin: 01/23/20 10:26 Dose: 5 mg Documented by: Aspirin (Aspirin, Baby) 81 mg GT DAILY [facility] Last Admin: 01/23/20 10:26 Dose: 81 mg Documented by: Atorvastatin Calcium (Lipitor) 80 mg GT QHS [facility] Last Admin: 01/22/20 21:21 Dose: 80 mg Documented by: Chlorhexidine Gluconate () 15 ml PO BID [facility] Last Admin: 01/23/20 10:26 Dose: 15 ml Documented by: Dextrose (D50w Syringe) 0 gm IV X1 PRN; Protocol PRN Reason: Hypoglycemia Furosemide (Lasix) 40 mg IV Q8 [facility] Last Admin: 01/23/20 05:36 Dose: 40 mg Documented by: Gabapentin (Neurontin) 200 mg GT DAILY [facility] Last Admin: 01/23/20 10:27 Dose: 200 mg Documented by: Glucagon () 1 mg IM .X1 PRN PRN Reason: Hypoglycemia Fentanyl () 100 mls @ 5 mls/hr IV UD [facility]; Protocol Last Titration: 01/23/20 12:00 Dose: 100 mcg/hr, 10 mls/hr Documented by: Sodium Chloride () 250 mls @ 15 mls/hr IV .[id number] PRN PRN Reason: Saline Flush Sodium Chloride () 250 mls @ 15 mls/hr IV .[id number] PRN PRN Reason: Additional IVPB Infusion Propofol (Diprivan) 1,000 mg in 100 mls @ 8.862 mls/hr CONT INF .[id number] [facility]; Protocol Last Titration: 01/23/20 12:15 Dose: 0 mcg/kg/min, 0 mls/hr Documented by: Enteral Nutritional Formula (Vital Af 1.2 Alli Liquid) 1,000 mls @ 70 mls/hr GT .[id number] [facility] Last Admin: 01/23/20 07:10 Dose: Not Given Documented by: Dexmedetomidine HCl 400 mcg/ (Sodium Chloride) 100 mls @ 18.363 mls/hr CONT INF .[id number] [facility]; Protocol Last Titration: 01/23/20 12:15 Dose: 0.5 mcg/kg/hr, 18.4 mls/hr Documented by: Pantoprazole Sodium 40 mg/ (Sodium Chloride) 110 mls @ 330 mls/hr IV Q12 [facility] Insulin Human Lispro (Humalog Kwikpen (Bkc)) 0 unit SC Q6H [facility]; Protocol Last Admin: 01/23/20 10:37 Dose: 4 u Documented by: Polyethylene Glycol (Miralax) 17 gm GT DAILY PRN PRN PRN Reason: CONSTIPATION Last Admin: 01/23/20 10:28 Dose: 17 gm Documented by: Potassium Chloride (Potassium Chl Soln) [facility] meq [facility] Last Admin: 01/23/20 10:25 Dose: 20 meq Documented by: Senna/Docusate Sodium (Senokot-S, Leela-Colace) 2 tablet GT BID [facility] Last Admin: 01/23/20 10:33 Dose: 2 tablet Documented by: Sodium Chloride () 10 - 40 ml IV UD PRN PRN Reason: SALINE FLUSH Last Admin: 01/23/20 05:37 Dose: 10 ml Documented by: Medical Necessity - Tobacco Use Smoking Status: Smoker, status unknown Tobacco Use: Non-smoker Assessment/Plan All Active Problems (Last Reviewed 01/20/20 @ 09:[address] Ian Rondon MD) Thrombocytosis (Acute) Acute exacerbation of CHF (congestive heart failure) (Resolved) ROBERT prerenal ATN with hypotension Respiratory failure s/p intubation Scr 1.4 stable On Lasix IV good urine output he has a Pimentel catheter in place. keep MAP more than 65 Avoid nephrotoxins and overdiuresis
[2020-01-23] MEDS: fentaNYL drip 100 ML 7.5 MCG IV (16:00)
[2020-01-23] MEDS: Dexmedetomidine 1,000 mcg in 0.9% NS 240 mL 18.4 MCG CONT INF (16:13)
[2020-01-23 17:45] LABS: Bedside Glucose 237 mg/dL (70-110)
[2020-01-23] MEDS: Atorvastatin Calcium 80 MG Tablet GT (22:36)
[2020-01-23 22:51] LABS: Bedside Glucose 228 mg/dL (70-110)
[2020-01-24] VITALS (40 sets, daily range): BP systolic 92–138; BP diastolic 43–91; PULSE 62–106; RESP 12–29; TEMP 35.9–37.9; O2SAT 20–100
[2020-01-24] MEDS: Dexmedetomidine 1,000 mcg in 0.9% NS 240 mL 22 MCG CONT INF (03:02)
[2020-01-24] MEDS: Metoprolol Tartrate 25 MG Tablet GT (04:18)
[2020-01-24 04:26] LABS: Absolute Lymphocyte Count 0.84 X10^3/uL (0.83-4.51); Absolute Neutrophil Count 7.1 X10^3/uL (2.0-7.7); Basophil# 0.05 X10^3/uL; Basophil% 0.6 % (0-1); Eosinophil# 0.18 X10^3/uL; Eosinophils% 2.1 % (0-5); Hematocrit 30.3 % (40-54); Hemoglobin 9.1 g/dL (13.0-16.5); Lymphocyte # 0.84 X10^3/ul (4.0); Lymphocyte % 9.7 % (19-41); Mean Corpuscular Hgb 28.1 pg (27.0-32.0); Mean Corpuscular Volume 93.5 fL (80-94); Monocyte# 0.45 X10^3/uL; Monocyte% 5.2 % (0-10); NRBC Flagged by Analyzer 0 % (0-5); Neutrophil # 7.06 X10^3/uL (2.7-7.7); Neutrophil % 81.8 % (47-70); Platelet Count 423 K/mm3 (150-450); RBC Distribution Width CV 14.6 % (11.6-14.6); RBC Distribution Width SD 49.8 fl (35.1-43.9); Red Blood Count 3.24 M/mm3 (4.6-6.2); White Blood Count 8.6 K/mm3 (4.4-11.0)
[2020-01-24 04:44] LABS: ALB/GLOB Ratio 0.3 RATIO (0.9-2.4); AST(SGOT) 25 U/L (15-37); Alanine Aminotransfer ALT/SGPT 32 U/L (16-61); Albumin, Serum 1.6 g/dL (3.2-5.0); Alkaline Phosphatase 84 U/L (45-117); Anion Gap 5 (5-15); BUN 26 mg/dL (7-18); Calcium,Total 8.3 mg/dL (8.5-10.1); Chloride 99 mmol/L (98-107); Creatinine, Serum 1.13 mg/dL (0.70-1.30); EST Glomerular Filtration Rate 70 mL/min (>60); Est Glom Filt Rate - Afr Amer 85 mL/min (>60); Estimated Creatinine Clearance 75.35 ml/min; Globulin 5.1 g/dL (2.2-4.2); Glucose 226 mg/dL (74-106); Potassium 3.9 mmol/L (3.5-5.1); Protein, Total 6.7 g/dL (6.4-8.2); Sodium Level 140 mmol/L (136-145)
[2020-01-24] MEDS: Furosemide 40 MG/4 ML Vial IV ×3 (05:53→21:12)
[2020-01-24] MEDS: Insulin Lispro 100 UNIT/ML INSULN.PEN SC ×4 (05:53→21:16)
--- NOTE | 2020-01-24 06:11 | PCM.PN.INT ---
Subjective: The patient was seen and examined at the bedside this morning. Events from the last 24 hours have been reviewed. The patient is currently afebrile, hemodynamically stable and maintaining appropriate oxygen saturations with an FiO2 requirement of 30%. The patient is currently documented to be overall net -1.9 L for the hospital admission. Creatinine has improved this morning to 1.13. The patient passed his spontaneous breathing trial this morning as well. He is currently alert, appropriately interactive and following commands. Objective: The patient's most recent lab work, culture data and imaging studies have all been personally reviewed. Coronavirus PCR was negative. Blood cultures have shown no growth to date. General: - - Remains intubated and mechanically ventilated. Currently tolerating spontaneous mode of mechanical ventilation. HEENT: Atraumatic, PERRLA, Normocephalic Oral: No Gingival or Mucosal Lesions/ Ulcerations, - - Endotracheal and OG tubes remain in place Neck: Supple, No Nodes, Trachea Midline Lungs: No rhonchi, No wheeze, No rales, Diminished Cardiovascular: Normal S1, Normal S2, Irregular Rate Abdomen: Bowel Sounds Present, Soft, Obese Extremities: No clubbing, No cyanosis, Edema Skin: - - No significant change from previous. Musculoskeletal: No Muscle Wasting Lymphatic: No Cervical, Supraclavicular, or Inguinal Adenopathy Neurological: Cranial nerves II-XII grossly intact, Neuro grossly intact, - - Alert and following commands appropriately. Vital Signs Temp Pulse Resp BP Pulse Ox 96.6 F L 68 16 121/81 H 98 01/24/20 02:00 01/24/20 06:00 01/24/20 06:00 01/24/20 06:00 01/24/20 06:00 Oxygen Flow Rate (L/min) 15 Oxygen Delivery Method Mechanical Ventilator Weight: 323 lb 13.745 oz Body Mass Index (BMI) 44.6 Finger Stick Blood Glucose 128 Intake and Output for Last 24 Hours 01/22/20 01/23/20 01/24/20 23:59 23:59 23:59 Intake Total 2544.58 / 3015.88 1506.68 / 1506.68 297.75 / 297.75 Output Total 2700 / 3100 2075 / 2075 950 / 950 Balance -155.42 / -84.12 -568.32 / -568.32 -652.25 / -652.25 Labs (Last 48 Hours) 01/22/20 01/22/20 01/22/20 09:35 16:00 21:19 WBC RBC Hgb Hct MCV MCH MCHC RDW Std Deviation RDW Coeff of [place] Plt Count MPV Immature Gran % (Auto) Neut % (Auto) Lymph % (Auto) [place] % (Auto) Eos % (Auto) Baso % (Auto) Absolute Neuts (auto) Absolute Lymphs (auto) Nucleated RBC % Sodium Potassium Chloride Carbon Dioxide Anion Gap BUN Creatinine Estim Creat Clear Calc Est GFR (MDRD) Af Amer Est GFR (MDRD) Non-Af BUN/Creatinine Ratio Glucose Calcium Phosphorus Magnesium Total Bilirubin AST ALT Alkaline Phosphatase Total Protein Albumin Globulin Albumin/Globulin Ratio POC Glucose 276 H 280 H 244 H 01/23/20 01/23/20 01/23/20 03:10 04:00 04:00 WBC 10.9 RBC 3.26 L Hgb 9.2 L Hct 29.8 L MCV 91.4 MCH 28.2 MCHC 30.9 L RDW Std Deviation 49.5 H RDW Coeff of [place] 14.8 H Plt Count 433 MPV 10.3 Immature Gran % (Auto) 0.700 Neut % (Auto) 81.7 H Lymph % (Auto) 10.9 L [place] % (Auto) 5.0 Eos % (Auto) 1.2 Baso % (Auto) 0.5 Absolute Neuts (auto) 8.9 H Absolute Lymphs (auto) 1.19 Nucleated RBC % 0 Sodium 139 Potassium 3.6 Chloride 98 Carbon Dioxide 35.0 H Anion Gap 6 BUN 31 H Creatinine 1.40 H Estim Creat Clear Calc 60.82 Est GFR (MDRD) Af Amer 66 Est GFR (MDRD) Non-Af 55 L BUN/Creatinine Ratio 22.1 H Glucose 266 H Calcium 7.9 L Phosphorus 2.8 Magnesium 1.7 Total Bilirubin AST ALT Alkaline Phosphatase Total Protein Albumin Globulin Albumin/Globulin Ratio POC Glucose 274 H 01/23/20 01/23/20 01/23/20 10:35 17:16 22:39 WBC RBC Hgb Hct MCV MCH MCHC RDW Std Deviation RDW Coeff of [place] Plt Count MPV Immature Gran % (Auto) Neut % (Auto) Lymph % (Auto) [place] % (Auto) Eos % (Auto) Baso % (Auto) Absolute Neuts (auto) Absolute Lymphs (auto) Nucleated RBC % Sodium Potassium Chloride Carbon Dioxide Anion Gap BUN Creatinine Estim Creat Clear Calc Est GFR (MDRD) Af Amer Est GFR (MDRD) Non-Af BUN/Creatinine Ratio Glucose Calcium Phosphorus Magnesium Total Bilirubin AST ALT Alkaline Phosphatase Total Protein Albumin Globulin Albumin/Globulin Ratio POC Glucose 259 H 237 H 228 H 01/24/20 01/24/20 04:20 04:20 WBC 8.6 RBC 3.24 L Hgb 9.1 L Hct 30.3 L MCV 93.5 MCH 28.1 MCHC 30.0 L RDW Std Deviation 49.8 H RDW Coeff of [place] 14.6 Plt Count 423 MPV 10.0 Immature Gran % (Auto) 0.600 Neut % (Auto) 81.8 H Lymph % (Auto) 9.7 L [place] % (Auto) 5.2 Eos % (Auto) 2.1 Baso % (Auto) 0.6 Absolute Neuts (auto) 7.1 Absolute Lymphs (auto) 0.84 Nucleated RBC % 0 Sodium 140 Potassium 3.9 Chloride 99 Carbon Dioxide 36.0 H Anion Gap 5 BUN 26 H Creatinine 1.13 Estim Creat Clear Calc 75.35 Est GFR (MDRD) Af Amer 85 Est GFR (MDRD) Non-Af 70 BUN/Creatinine Ratio 23.0 H Glucose 226 H Calcium 8.3 L Phosphorus Magnesium Total Bilirubin 0.40 AST 25 ALT 32 Alkaline Phosphatase 84 Total Protein 6.7 Albumin 1.6 L Globulin 5.1 H Albumin/Globulin Ratio 0.3 L POC Glucose Microbiology 01/20/20 16:45 Blood Culture (Wb) #2 - Anticubital Right Blood Culture - Preliminary No growth in 48 hours. 01/20/20 16:20 Blood Culture (Wb) - Anticubital Right Blood Culture - Preliminary No growth in 48 hours. Clinical Impression(s) from Imaging Studies Chest X-Ray 01/20/20 16:50 IMPRESSION: Endotracheal tube tip is 4.7 cm from kyra. Stable bilateral alveolar disease and bilateral pleural effusions, more extensive on the left. Electronically Signed: Shashank Bustamante MD at 17:10 EDT Tel , Service support , KUB X-Ray 01/20/20 16:57 IMPRESSION: Enteric tube tip excluded from view in the mid to lower abdomen. Electronically Signed: Shashank Bustamante MD at 17:09 EDT Tel , Service support , Chest X-Ray 01/20/20 17:28 IMPRESSION: Right central catheter tip in right atrium. If SVC location is desired, withdrawal of the catheter by 3 to 4 cm. Stable left basilar alveolar disease and bilateral pleural effusions. There is no demonstrated pleural abnormality. Electronically Signed: Shashank Bustamante MD at 17:54 EDT Tel , Service support , Chest X-Ray 01/23/20 07:58 IMPRESSION: Stable left basilar alveolar disease and bilateral pleural effusions. There is no demonstrated pleural abnormality. Electronically Signed: Andreas Thacker at 9:42 EDT Tel , Service support , Medical Necessity - Tobacco Use Smoking Status: Smoker, status unknown Tobacco Use: Non-smoker Assessment/Plan All Active Problems (Last Reviewed 01/20/20 @ 09:[address] Ian Rondon MD) Thrombocytosis (Acute) Acute exacerbation of CHF (congestive heart failure) (Resolved) RECOMMENDATIONS: 1. Proceed with a trial of extubation this morning. 2. Once extubated, wean supplemental oxygen as tolerated. Perform bedside swallow evaluation and advance diet accordingly. 3. Recommend BiPAP utilization with naps and nightly. 4. Continue amiodarone and Eliquis as ordered. 5. Continue scheduled Lasix as tolerated by renal function and hemodynamics. 6. Physical therapy to work with the patient. 7. Recommend discharge directly to sleep lab for a polysomnogram on January 25, if feasible. IMPRESSIONS: 1. Acute on chronic combined respiratory failure secondary to chronic heart failure with preserved ejection fraction and atrial fibrillation with RVR The patient presented to the hospital in the volume overloaded state with 5 kg of weight gain. The patient is clinically in a state of heart failure exacerbation. He was also noted to be in atrial fibrillation with a rapid ventricular rate, which may have been worsened by his uncontrolled sleep apnea. Low clinical index of suspicion for underlying pulmonary infectious process. Recommend continuing volume optimization with IV diuretic therapy as tolerated by renal function and hemodynamic status. The patient is currently a candidate for a trial of extubation this morning. Once extubated, supplemental oxygen will be weaned accordingly. Bedside swallow evaluation will be performed and diet advanced accordingly. 2. Probable untreated obstructive sleep apnea The patient is currently scheduled for a sleep study on January 25. The patient can most likely be discharged directly from the hospital to the sleep lab to facilitate the completion of testing. 3. Hyperlipidemia/morbid obesity/diabetes mellitus/hypertension Complicates care, management, recovery and prognosis. Continue home medications as indicated. TIME: 38 minutes of critical care time, independent of procedures, was spent addressing the patient's acute on chronic combined respiratory failure, heart failure with preserved ejection fraction, atrial fibrillation with rapid ventricular rate, probable untreated sleep apnea, review of all data and collaboration with the care team. ([id number]) [id number] Critical care first hour
[2020-01-24] MEDS: Ipratropium/Albuterol Sulfate 3 ML AMPUL.NEB INHALATION ×4 (06:35→22:27)
--- NOTE | 2020-01-24 07:56 | PN.CARD_ITS ---
Subjectve: Patient seen and evaluated. Appears to be doing better. Recently extubated. Objective: Vital Signs Temp Pulse Resp BP Pulse Ox 96.6 F L 62 19 H 108/77 20 01/24/20 02:00 01/24/20 07:00 01/24/20 07:00 01/24/20 07:00 01/24/20 07:00 Oxygen Flow Rate (L/min) 2 Oxygen Delivery Method Nasal Cannula Weight: 321 lb 6.943 oz Body Mass Index (BMI) 44.6 Finger Stick Blood Glucose 128 Intake and Output for Last 24 Hours 01/22/20 01/23/20 01/24/20 23:59 23:59 23:59 Intake Total 2544.58 / 3015.88 1506.68 / 1506.68 314.25 / 314.25 Output Total 2700 / 3100 2075 / 2075 950 / 950 Balance -155.42 / -84.12 -568.32 / -568.32 -635.75 / -635.75 General: Awake, Alert, Oriented x 3 HEENT: PERRL, EOMI, Sclera Non Icteric Neck: Supple, Good ROM, No Lymph Node Enlargement Lungs: Diminished Sam Bases Cardiovascular: Irregular Rhythm, Normal S1, Normal S2, No Murmurs, No Rubs, No Gallops Vascular: No Carotid Bruits, Normal Femoral Pulses, Normal Radial Pulses, Normal Dorsalis Pedal Pulse, Normal Posterior Tibial Pulses Abdomen: Bowel Sounds Present, Soft, Non Tender, No HSM, No Organomegaly Extremities: No Cyanosis, No Clubbing, Bilateral Edema +1 Musculoskeletal: No Erythema Neurological: No Focal Motor or Sensory Deficit Psych/Mental Status: Appropriate 01/24/20 04:20: WBC 8.6, RBC 3.24 L, Hgb 9.1 L, Hct 30.3 L, MCV 93.5, MCH 28.1, MCHC 30.0 L, Plt Count 423, MPV 10.0, Immature Gran % (Auto) 0.600, Neut % (Auto) 81.8 H, Lymph % (Auto) 9.7 L, [place] % (Auto) 5.2, Eos % (Auto) 2.1, Baso % (Auto) 0.6, Absolute Neuts (auto) 7.1, Nucleated RBC % 0 01/24/20 04:20: Sodium 140, Potassium 3.9, Chloride 99, Carbon Dioxide 36.0 H, Anion Gap 5, BUN 26 H, Creatinine 1.13, Est GFR (MDRD) Af Amer 85, Est GFR (MDRD) Non-Af 70, BUN/Creatinine Ratio 23.0 H, Glucose 226 H, Calcium 8.3 L, Total Bilirubin 0.40 Rhythm: EKG: ECHO: Stress Test: Cardiac Cath: PCI: CT Surgery: Holter monitor: EPS: PPM: CXR: Chest CT Scan: Medical Necessity - Tobacco Use Smoking Status: Smoker, status unknown Tobacco Use: Non-smoker Assessment/Plan 1. Acute on chronic diastolic (congestive) heart failure I50.32 He does appear to have chronic congestive heart failure which is diastolic. He has clearly had 2 acute events which have led to rehospitalization's as well as an event during the hospital. In all these episodes it appears that he has CO2 issues. He has had echocardiograms performed twice in the last month both of which have demonstrated ejection fractions of 65%. The exact precipitating factor of these events is not entirely clear but it appears to be secondary to respiratory depression leading to CO2 elevation and narcosis and then pulmonary edema. He has undergone cardiac catheterization recently which has not demonstrated ischemia as an etiology. His hemoglobin also remains fairly stable. On discussion with the hospitalist as well as the spray unit feeder it may be important for him to have a BiPAP or CPAP mask before he leaves the hospital. * Will continue with aggressive diuresis at this time. 2. H/O coronary artery bypass surgery Z95.1 CABG x 4: ARREDONDO-LAD, Free ISAK from the D1 SVG-OM1, SVG-D1, SVG-RPDA 12/26/19 Plan He is status post coronary artery bypass surgery as noted above. His bypass grafts were recently evaluated and were noted to be patent. The saphenous vein graft to the posterior descending artery has an anastomotic lesion but this is being treated medically. 3. History of non-ST elevation myocardial infarction (NSTEMI) I25.2 11/17/2019, 01/04/2020 Plan He had a recent non-ST elevation myocardial infarction. I recommendation at this time is to continue with medical therapy. No changes will be made. 4. Essential (primary) hypertension I10 Plan He does have a history of hypertension which appears to be under good control on the current medical therapy. I would not suggest that we make any changes at this particular time. He remains on metoprolol as well as losartan. 5. Iron deficiency anemia, unspecified iron deficiency anemia type D50.9 Plan He does have evidence of anemia. The exact precipitating etiology is not known I suspect it was due to the Eliquis. However we did not scope him and so we do not know where the source of bleeding may be. I will recommend that we obtain a hemoglobin in approximately a week. 6. Atrial fibrillation I48.91 Plan He does have atrial fibrillation the rate of which is controlled at this time it was seen in the emergency room and in the hospital to be fairly controlled I would like him to be on the 200 mg once a day and continue to monitor his heart rate and pulse. He is also on metoprolol 100 mg twice a day. Thank you for allowing me to participate in the care of your patient. Please don't hesitate to call if any issues arise.
--- NOTE | 2020-01-24 10:12 | CASEMGMT ---
RN CM Note: participated in ICU interdisciplinary rounds. Pt is extubated, on Bipap currently. Passed mobility screen. Per physician, recommendation is to see if pt can go to sleep study on 01/26/2020, then to TCU. MOR Weinstein working with dc plan to TCU. Alok HAWKINSN RN ACM
--- NOTE | 2020-01-24 10:20 | CASEMGMT ---
Patient has had numerous readmissions due to not having equipment at home for his sleep apnea. However, he cannot get the equipment until he has a sleep study and his insurance approves it. Therefore, SW spoke with patient about going to [facility] TCU after his sleep study for rehab and when his home equipment is set up he would go home. He was in agreement with this plan as he does not want to keep coming back and forth to the hospital until he has the home equipment. He asked SW to call his and let her know. SW called patient's and explained the plan and she was in agreement. SW did explain to both patient and his that insurance will have to approve in order to do this plan. They verbalized understanding. MOR spoke with Rae in [place] and she will work on obtaining insurance authorization. Plan: d/c to [facility] sleep lab on the then d/c to [facility] TCU Thursday pending insurance approval. Bety LEON
--- NOTE | 2020-01-24 10:59 | PN_ITS ---
Reason for Visit: Acute combined respiratory failure secondary to pulmonary edema/obstructive sleep apnea/obesity hypoventilation syndrome Subjective: Seen and examined. Patient extubated in the morning. Has mild cough although weak. Advised to do incentive spirometry and pep. On 3 L of oxygen with rescue BiPAP during nap naps and night On exam General: Alert, Cooperative, Morbid obesity HEENT: Atraumatic, PERRLA, EOMI, Normocephalic Oral: Oral mucosa dry. Neck: Supple, No JVD, Negative Carotid Bruits Lungs: -Air entry diminished bilateral lungs. No crepitation/rhonchi.. Cardiovascular: Regular rate, Normal S1, Normal S2, No murmurs, esters and emulsifiers supervisor shows Frequent PVCs. Sinus rhythm Abdomen: Bowel Sounds Present, Soft, Non Tender Extremities: Capillary Refill Less than 3 Seconds, 2+ bilateral lower legs edema Skin: No rashes, No breakdown Musculoskeletal: No Tenderness to Palpation of Joints or Extremities, Arthritic Changes Neurological: Cranial nerves II-XII grossly intact, Neuro grossly intact Psych/Mental Status: Normal Affect, Appropriate Vitals/I&O's: Vital Signs Temp Pulse Resp BP Pulse Ox 98.1 F 76 16 134/91 H 99 01/24/20 08:00 01/24/20 10:55 01/24/20 10:55 01/24/20 10:00 01/24/20 10:55 Oxygen Flow Rate (L/min) 3 Oxygen Delivery Method Nasal Cannula Weight: 321 lb 6.943 oz Body Mass Index (BMI) 44.6 Finger Stick Blood Glucose 128 Intake and Output for Last 24 Hours 01/22/20 01/23/20 01/24/20 23:59 23:59 23:59 Intake Total 2544.58 / 3015.88 1506.68 / 1506.68 314.25 / 314.25 Output Total 2700 / 3100 2075 / 2075 950 / 950 Balance -155.42 / -84.12 -568.32 / -568.32 -635.75 / -635.75 Microbiology Past 72 Hours 01/20/20 16:45 Blood Culture (Wb) #2 - Anticubital Right Blood Culture - Preliminary No growth in 48 hours. 01/20/20 16:20 Blood Culture (Wb) - Anticubital Right Blood Culture - Preliminary No growth in 48 hours. Laboratory Results 01/23/20 10:35: POC Glucose 259 H 01/23/20 17:16: POC Glucose 237 H 01/23/20 22:39: POC Glucose 228 H 01/24/20 04:20: WBC 8.6, RBC 3.24 L, Hgb 9.1 L, Hct 30.3 L, MCV 93.5, MCH 28.1, MCHC 30.0 L, RDW Std Deviation 49.8 H, RDW Coeff of [place] 14.6, Plt Count 423, MPV 10.0, Immature Gran % (Auto) 0.600, Neut % (Auto) 81.8 H, Lymph % (Auto) 9.7 L, [place] % (Auto) 5.2, Eos % (Auto) 2.1, Baso % (Auto) 0.6, Absolute Neuts (auto) 7.1, Absolute Lymphs (auto) 0.84, Nucleated RBC % 0 01/24/20 04:20: Sodium 140, Potassium 3.9, Chloride 99, Carbon Dioxide 36.0 H, Anion Gap 5, BUN 26 H, Creatinine 1.13, Estim Creat Clear Calc 75.35, Est GFR (MDRD) Af Amer 85, Est GFR (MDRD) Non-Af 70, BUN/Creatinine Ratio 23.0 H, Glucose 226 H, Calcium 8.3 L, Total Bilirubin 0.40, AST 25, ALT 32, Alkaline P hosphatase 84, Total Protein 6.7, Albumin 1.6 L, Globulin 5.1 H, Albumin/Globulin Ratio 0.3 L Current Medications Acetaminophen (Tylenol) 650 mg RECTAL Q4H PRN PRN PRN Reason: Pain Score 1-10/Temp > 100.7 F Albuterol/Ipratropium (Duoneb) 3 ml INHALATION Q4H.RT [facility] Last Admin: 01/24/20 10:54 Dose: 3 ml Documented by: Amiodarone HCl (Cordarone) 200 mg GT DAILY [facility] Last Admin: 01/23/20 10:26 Dose: 200 mg Documented by: Apixaban (Eliquis) 5 mg GT BID [facility] Last Admin: 01/23/20 22:36 Dose: 5 mg Documented by: Aspirin (Aspirin, Baby) 81 mg GT DAILY [facility] Last Admin: 01/23/20 10:26 Dose: 81 mg Documented by: Atorvastatin Calcium (Lipitor) 80 mg GT QHS [facility] Last Admin: 01/23/20 22:36 Dose: 80 mg Documented by: Chlorhexidine Gluconate () 15 ml PO BID [facility] Last Admin: 01/23/20 22:35 Dose: 15 ml Documented by: Dextrose (D50w Syringe) 0 gm IV X1 PRN; Protocol PRN Reason: Hypoglycemia Furosemide (Lasix) 40 mg IV Q8 [facility] Last Admin: 01/24/20 05:53 Dose: 40 mg Documented by: Gabapentin (Neurontin) 200 mg GT DAILY [facility] Last Admin: 01/23/20 10:27 Dose: 200 mg Documented by: Glucagon () 1 mg IM .X1 PRN PRN Reason: Hypoglycemia Sodium Chloride () 250 mls @ 15 mls/hr IV .[id number] PRN PRN Reason: Saline Flush Last Infusion: 01/23/20 14:42 Dose: 0 mls/hr Documented by: Sodium Chloride () 250 mls @ 15 mls/hr IV .[id number] PRN PRN Reason: Additional IVPB Infusion Pantoprazole Sodium 40 mg/ (Sodium Chloride) 110 mls @ 330 mls/hr IV Q12 [facility] Last Infusion: 01/23/20 23:08 Dose: Infused Documented by: Insulin Human Lispro (Humalog Kwikpen (Bkc)) 0 unit SC Q6H [facility]; Protocol Last Admin: 01/24/20 05:53 Dose: 4 u Documented by: Polyethylene Glycol (Miralax) 17 gm GT DAILY PRN PRN PRN Reason: CONSTIPATION Last Admin: 01/23/20 10:28 Dose: 17 gm Documented by: Potassium Chloride (Potassium Chl Soln) 20 meq GT BIDCM [facility] Last Admin: 01/23/20 17:20 Dose: 20 meq Documented by: Senna/Docusate Sodium (Senokot-S, Leela-Colace) 2 tablet GT BID [facility] Last Admin: 01/23/20 22:36 Dose: 2 tablet Documented by: Sodium Chloride () 10 - 40 ml IV UD PRN PRN Reason: SALINE FLUSH Last Admin: 01/23/20 14:42 Dose: 10 ml Documented by: STROKE Vital Signs/Narrative: Vital Signs Temp Pulse Resp BP Pulse Ox 01/24/20 10:55 76 16 99 01/24/20 10:13 72 17 97 01/24/20 10:00 74 24 H 134/91 H 99 01/24/20 09:30 68 18 99 01/24/20 09:00 70 17 109/76 99 01/24/20 08:00 98.1 F 71 14 101/63 100 01/24/20 07:00 70 19 H 108/77 20 Medical Necessity - Tobacco Use Smoking Status: Smoker, status unknown Tobacco Use: Non-smoker Assessment/Plan All Active Problems (Last Reviewed 01/20/20 @ 09:[address] Ian Rondon MD) Thrombocytosis (Acute) Acute exacerbation of CHF (congestive heart failure) (Resolved) This is a 59 year old M with PMHx of CAD status post CABG, atrial fibrillation, chronic diastolic CHF with EF 65%, hypertension, type II DM, recently discharged on 01/18/20 after prolonged hospital stay was admitted with progressive worsening shortness of breath, consistent with acute combined respiratory failure secondary to acute on chronic diastolic heart failure. 1. Acute combined respiratory failure secondary to CO2 retention/acute on chronic diastolic CHF/undiagnosed VASILIY: Patient was intubated on 01/20/2020. Last time patient was discharged on oxygen. Currently intubated. On mechanical ventilator. FiO2 30%. Network Support Administrator consulted. Patient will need direct sleep study after discharge. At home, patient cannot live with on BiPAP. 01/23: Patient extubated. On rescue BiPAP and at night. Continue diuresis. Incentive spirometry and pep. 2. Hypotension, likely sedative medication side-effects( propofol), improved: Patient is off pressors. Blood pressure 105/65. 01/23: Patient blood pressure is better. 2. ROBERT, admitting creatinine 1.69, likely prerenal, improving: Last night patient creatinine went up to 2.88 which was resolved to normal at time of discharge 0.98. This time admitted with creatinine 1.69. Creatinine is 1.4.continue Lasix. Electrolytes within acceptable limits. CO2 35 01/23: Kidney function is improving. BUN/creatinine 26/1.13. Urine output 2000 mL in last 24 hours. Fluid balance net negative -1800 mL. Seen by extraction operator. 3. Hyperkalemia, resolved 4. Acute on chronic diastolic CHF, on Lasix, On amiodarone, aspirin. Not on beta-ronen and KARISSA/ARB because of acute kidney injury and blood pressure on lower side and fluid overload/CHF exacerbat ion. 01/23: Metoprolol resumed. 5. CAD status post CABG/atrial fibrillation, rate controlled/hypertension, all remain stable. CABG x 4: ARERDONDO-LAD, Free ISAK from the D1 SVG-OM1, SVG-D1, SVG- RPDA 12/26/19 continue on aspirin, apixaban, amiodarone, statin. esters and emulsifiers supervisor shows pulses bigeminy with frequent PVCs. hold off on losartan on account of current hypotension 6. Type II DM, on insulin and metformin continue with blood glucose checks with insulin sliding scale every 6 hourly. Hold oral hypoglycemic agents. 7. Iron deficiency anemia with episode of recent possible acute blood loss anemia status post 2 units of transfusion during previous hospital stay. Patient was not scoped secondary to hemodynamic instability. DVT prophylaxis-apixaban Inpatient E&M: [id number] [facility] Hosp L3
[2020-01-24] MEDS: Amiodarone 200 MG Tablet GT (12:26)
[2020-01-24] MEDS: Gabapentin 100 MG Capsule 200 MG GT (12:26)
[2020-01-24] MEDS: Aspirin 81 MG TAB.CHEW GT (12:26)
[2020-01-24] MEDS: APIXABAN 5 MG TABLET GT (12:26)
--- NOTE | 2020-01-24 12:41 | PCM.PN.REN ---
Subjective: The patient was just extubated this morning at 6:45 AM. He denies shortness of breath or chest pain or any complaints at this time. - Physical Exam Vitals/I&O's: Vital Signs Temp Pulse Resp BP Pulse Ox 98.1 F 76 16 134/91 H 99 01/24/20 08:00 01/24/20 10:55 01/24/20 10:55 01/24/20 10:00 01/24/20 10:55 Oxygen Flow Rate (L/min) 3 Oxygen Delivery Method Nasal Cannula Weight: 145.8 kg Body Mass Index (BMI) 44.6 Finger Stick Blood Glucose 128 Intake and Output for Last 24 Hours 01/22/20 01/23/20 01/24/20 23:59 23:59 23:59 Intake Total 2544.58 / 3015.88 1506.68 / 1506.68 314.25 / 314.25 Output Total 2700 / 3100 2075 / 2075 950 / 950 Balance -155.42 / -84.12 -568.32 / -568.32 -635.75 / -635.75 General: Alert, Cooperative HEENT: Atraumatic, Normocephalic Oral: Moist Mucosa Neck: Supple, Trachea Midline Lungs: Clear to auscultation, No rhonchi Cardiovascular: Regular rate, Regular Rhythm, Normal S1, Normal S2 Abdomen: Bowel Sounds Present, Soft, Obese Microbiology Past 72 Hours 01/20/20 16:45 Blood Culture (Wb) #2 - Anticubital Right Blood Culture - Preliminary No growth in 48 hours. 01/20/20 16:20 Blood Culture (Wb) - Anticubital Right Blood Culture - Preliminary No growth in 48 hours. Laboratory Results 01/23/20 17:16: POC Glucose 237 H 01/23/20 22:39: POC Glucose 228 H 01/24/20 04:20: WBC 8.6, RBC 3.24 L, Hgb 9.1 L, Hct 30.3 L, MCV 93.5, MCH 28.1, MCHC 30.0 L, RDW Std Deviation 49.8 H, RDW Coeff of [place] 14.6, Plt Count 423, MPV 10.0, Immature Gran % (Auto) 0.600, Neut % (Auto) 81.8 H, Lymph % (Auto) 9.7 L, [place] % (Auto) 5.2, Eos % (Auto) 2.1, Baso % (Auto) 0.6, Absolute Neuts (auto) 7.1, Absolute Lymphs (auto) 0.84, Nucleated RBC % 0 01/24/20 04:20: Sodium 140, Potassium 3.9, Chloride 99, Carbon Dioxide 36.0 H, Anion Gap 5, BUN 26 H, Creatinine 1.13, Estim Creat Clear Calc 75.35, Est GFR (MDRD) Af Amer 85, Est GFR (MDRD) Non-Af 70, BUN/Creatinine Ratio 23.0 H, Glucose 226 H, Calcium 8.3 L, Total Bilirubin 0.40, AST 25, ALT 32, Alkaline Phosphatase 84, Total Protein 6.7, Albumin 1.6 L, Globulin 5.1 H, Albumin/Globulin Ratio 0.3 L Current Medications Acetaminophen (Tylenol) 650 mg RECTAL Q4H PRN PRN PRN Reason: Pain Score 1-10/Temp > 100.7 F Albuterol/Ipratropium (Duoneb) 3 ml INHALATION Q4H.RT [facility] Last Admin: 01/24/20 10:54 Dose: 3 ml Documented by: Amiodarone HCl (Cordarone) 200 mg GT DAILY [facility] Last Admin: 01/24/20 12:26 Dose: 200 mg Documented by: Apixaban (Eliquis) 5 mg GT BID [facility] Last Admin: 01/24/20 12:26 Dose: 5 mg Documented by: Aspirin (Aspirin, Baby) 81 mg GT DAILY [facility] Last Admin: 01/24/20 12:26 Dose: 81 mg Documented by: Atorvastatin Calcium (Lipitor) 80 mg GT QHS [facility] Last Admin: 01/23/20 22:36 Dose: 80 mg Documented by: Chlorhexidine Gluconate () 15 ml PO BID [facility] Last Admin: 01/23/20 22:35 Dose: 15 ml Documented by: Dextrose (D50w Syringe) 0 gm IV X1 PRN; Protocol PRN Reason: Hypoglycemia Furosemide (Lasix) 40 mg IV Q8 [facility] Last Admin: 01/24/20 05:53 Dose: 40 mg Documented by: Gabapentin (Neurontin) 200 mg GT DAILY [facility] Last Admin: 01/24/20 12:26 Dose: 200 mg Documented by: Glucagon () 1 mg IM .X1 PRN PRN Reason: Hypoglycemia Sodium Chloride () 250 mls @ 15 mls/hr IV .[id number] PRN PRN Reason: Saline Flush Last Infusion: 01/23/20 14:42 Dose: 0 mls/hr Documented by: Sodium Chloride () 250 mls @ 15 mls/hr IV .[id number] PRN PRN Reason: Additional IVPB Infusion Pantoprazole Sodium 40 mg/ (Sodium Chloride) 110 mls @ 330 mls/hr IV Q12 [facility] Last Infusion: 01/23/20 23:08 Dose: Infused Documented by: Insulin Human Lispro (Humalog Kwikpen (Bkc)) 0 unit SC Q6H [facility]; Protocol Last Admin: 01/24/20 05:53 Dose: 4 u Documented by: Polyethylene Glycol (Miralax) 17 gm GT DAILY PRN PRN PRN Reason: CONSTIPATION Last Admin: 01/23/20 10:28 Dose: 17 gm Documented by: Potassium Chloride ([facility]l [facility]n) [facility] Last Admin: 01/23/20 17:20 Dose: 20 meq Documented by: Senna/Docusate Sodium (Senokot-S, Leela-Colace) 2 tablet GT BID [facility] Last Admin: 01/23/20 22:36 Dose: 2 tablet Documented by: Sodium Chloride () 10 - 40 ml IV UD PRN PRN Reason: SALINE FLUSH Last Admin: 01/23/20 14:42 Dose: 10 ml Documented by: Medical Necessity - Tobacco Use Smoking Status: Smoker, status unknown Tobacco Use: Non-smoker Assessment/Plan All Active Problems (Last Reviewed 01/20/20 @ 09:[address] Ian Rondon MD) Thrombocytosis (Acute) Acute exacerbation of CHF (congestive heart failure) (Resolved) ROBERT prerenal ATN with hypotension Respiratory failure s/p intubation Scr 1.1 better On Lasix IV rec to switch to po in 1-2 days and decrease overall dose keep MAP more than 65 Avoid nephrotoxins and overdiuresis
[2020-01-24] MEDS: 0.9% Saline Lock 10 ML Syringe IV ×3 (13:01→21:17)
[2020-01-24 13:11] LABS: Bedside Glucose 191 mg/dL (70-110)
[2020-01-24] MEDS: Metoprolol Tartrate 25 MG Tablet PO (13:40)
[2020-01-24] MEDS: Acetaminophen 325 MG Tablet 650 MG PO ×2 (13:41→21:12)
--- NOTE | 2020-01-24 13:55 | CASEMGMT ---
ADITI CM Note: Call received from [facility]. They have hospital bed reserved for pt on . Updated that current dc plan is for pt to go to sleep lab on 01.26.2020 if medically stable, then referral is being made for transfer from sleep lab to TCU pending insurance precert. Bipap will be available for pt on TCU, and 48 hours prior to TCU discharge, Riccardo can be updated to set up Bipap for pt to go home with. ADITI Fonseca and MOR Albert updated. Alok HAWKINSN RN ACM
[2020-01-24 17:15] LABS: Bedside Glucose 234 mg/dL (70-110)
[2020-01-24] MEDS: APIXABAN 5 MG TABLET PO (21:10)
[2020-01-24] MEDS: Atorvastatin Calcium 80 MG Tablet PO (21:11)
[2020-01-24] MEDS: Pantoprazole Sodium 40 MG Tablet PO (21:11)
[2020-01-24] MEDS: Metoprolol Tartrate 50 MG Tablet PO (21:11)
[2020-01-24 21:30] LABS: Bedside Glucose 250 mg/dL (70-110)
[2020-01-25] VITALS (31 sets, daily range): BP systolic 90–133; BP diastolic 50–86; PULSE 47–107; RESP 12–28; TEMP 37.1–37.3; O2SAT 88–100
[2020-01-25 03:13] LABS: Absolute Neutrophil Count 6.3 X10^3/uL (2.0-7.7); Basophil# 0.04 X10^3/uL; Basophil% 0.5 % (0-1); Eosinophil# 0.17 X10^3/uL; Eosinophils% 2.1 % (0-5); Hematocrit 29.3 % (40-54); Hemoglobin 8.9 g/dL (13.0-16.5); Lymphocyte % 13.4 % (19-41); Mean Corp Hgb Conc 30.4 g/dL (32-36); Mean Corpuscular Hgb 28.2 pg (27.0-32.0); Mean Corpuscular Volume 92.7 fL (80-94); Mean Platelet Vol. 10.4 fl (6.2-12.0); Monocyte% 7.3 % (0-10); NRBC Flagged by Analyzer 0 % (0-5); Neutrophil # 6.27 X10^3/uL (2.7-7.7); Neutrophil % 76.3 % (47-70); Platelet Count 456 K/mm3 (150-450); RBC Distribution Width CV 14.6 % (11.6-14.6); RBC Distribution Width SD 49.3 fl (35.1-43.9); Red Blood Count 3.16 M/mm3 (4.6-6.2); White Blood Count 8.2 K/mm3 (4.4-11.0)
[2020-01-25 03:26] LABS: Anion Gap 3 (5-15); BUN 24 mg/dL (7-18); BUN/Creat Ratio 20.5 RATIO (10-20); Chloride 99 mmol/L (98-107); Creatinine, Serum 1.17 mg/dL (0.70-1.30); EST Glomerular Filtration Rate 67 mL/min (>60); Est Glom Filt Rate - Afr Amer 81 mL/min (>60); Estimated Creatinine Clearance 72.77 ml/min; Glucose 229 mg/dL (74-106); Magnesium 1.8 mg/dL (1.6-2.6); Potassium 3.7 mmol/L (3.5-5.1); Sodium Level 140 mmol/L (136-145)
[2020-01-25] MEDS: Furosemide 40 MG/4 ML Vial IV (05:23)
[2020-01-25] MEDS: 0.9% Saline Lock 10 ML Syringe IV ×2 (05:24→18:33)
[2020-01-25] MEDS: Insulin Lispro 100 UNIT/ML INSULN.PEN SC ×4 (05:24→21:06)
--- NOTE | 2020-01-25 06:16 | PCM.PN.INT ---
Subjective: The patient was seen and examined at the bedside this morning. Events from the last 24 hours have been reviewed. The patient is currently afebrile, hemodynamically stable and maintaining appropriate oxygen saturations on 2 L/min via nasal cannula. The patient once again tolerated BiPAP all night. He is currently documented to be overall net -2.4 L for the hospital admission. Creatinine remains stable. Objective: The patient's most recent lab work, culture data and imaging studies have all been personally reviewed. Coronavirus PCR was negative. Blood cultures have shown no growth to date. General: Alert, Cooperative HEENT: Atraumatic, Normocephalic Oral: No Gingival or Mucosal Lesions/ Ulcerations Neck: Supple, No Nodes, Trachea Midline Lungs: No rhonchi, No wheeze, No rales, Diminished Cardiovascular: Normal S1, Normal S2, Irregular Rate Abdomen: Bowel Sounds Present, Soft, Non Tender, Distended, Obese Extremities: No clubbing, No cyanosis, Edema Skin: - - No significant change from previous Musculoskeletal: No Tenderness to Palpation of Joints or Extremities, No Muscle Wasting Lymphatic: No Cervical, Supraclavicular, or Inguinal Adenopathy Neurological: Cranial nerves II-XII grossly intact, Neuro grossly intact Psych/Mental Status: Normal Affect, Appropriate Vital Signs Temp Pulse Resp BP Pulse Ox 98.8 F 71 21 H 96/53 L 100 01/25/20 06:00 01/25/20 06:00 01/25/20 06:00 01/25/20 06:00 01/25/20 06:00 Oxygen Flow Rate (L/min) 2 Oxygen Delivery Method Bi-pap Weight: 319 lb 0.142 oz Body Mass Index (BMI) 44.6 Finger Stick Blood Glucose 128 Intake and Output for Last 24 Hours 01/23/20 01/24/20 01/25/20 23:59 23:59 23:59 Intake Total 1506.68 / 1506.68 1124.25 / 1364.25 480 / 480 Output Total 2075 / 2075 2075 / 2425 725 / 725 Balance -568.32 / -568.32 -950.75 / -1060.75 -245 / -245 Labs (Last 48 Hours) 01/23/20 01/23/20 01/23/20 10:35 17:16 22:39 WBC RBC Hgb Hct MCV MCH MCHC RDW Std Deviation RDW Coeff of [place] Plt Count MPV Immature Gran % (Auto) Neut % (Auto) Lymph % (Auto) [place] % (Auto) Eos % (Auto) Baso % (Auto) Absolute Neuts (auto) Absolute Lymphs (auto) Nucleated RBC % Sodium Potassium Chloride Carbon Dioxide Anion Gap BUN Creatinine Estim Creat Clear Calc Est GFR (MDRD) Af Amer Est GFR (MDRD) Non-Af BUN/Creatinine Ratio Glucose Calcium Magnesium Total Bilirubin AST ALT Alkaline Phosphatase Total Protein Albumin Globulin Albumin/Globulin Ratio POC Glucose 259 H 237 H 228 H 01/24/20 01/24/20 01/24/20 04:20 04:20 12:47 WBC 8.6 RBC 3.24 L Hgb 9.1 L Hct 30.3 L MCV 93.5 MCH 28.1 MCHC 30.0 L RDW Std Deviation 49.8 H RDW Coeff of [place] 14.6 Plt Count 423 MPV 10.0 Immature Gran % (Auto) 0.600 Neut % (Auto) 81.8 H Lymph % (Auto) 9.7 L [place] % (Auto) 5.2 Eos % (Auto) 2.1 Baso % (Auto) 0.6 Absolute Neuts (auto) 7.1 Absolute Lymphs (auto) 0.84 Nucleated RBC % 0 Sodium 140 Potassium 3.9 Chloride 99 Carbon Dioxide 36.0 H Anion Gap 5 BUN 26 H Creatinine 1.13 Estim Creat Clear Calc 75.35 Est GFR (MDRD) Af Amer 85 Est GFR (MDRD) Non-Af 70 BUN/Creatinine Ratio 23.0 H Glucose 226 H Calcium 8.3 L Magnesium Total Bilirubin 0.40 AST 25 ALT 32 Alkaline Phosphatase 84 Total Protein 6.7 Albumin 1.6 L Globulin 5.1 H Albumin/Globulin Ratio 0.3 L POC Glucose 191 H 01/24/20 01/24/20 01/25/20 17:03 21:15 03:00 WBC 8.2 RBC 3.16 L Hgb 8.9 L Hct 29.3 L MCV 92.7 MCH 28.2 MCHC 30.4 L RDW Std Deviation 49.3 H RDW Coeff of [place] 14.6 Plt Count 456 H MPV 10.4 Immature Gran % (Auto) 0.400 Neut % (Auto) 76.3 H Lymph % (Auto) 13.4 L [place] % (Auto) 7.3 Eos % (Auto) 2.1 Baso % (Auto) 0.5 Absolute Neuts (auto) 6.3 Absolute Lymphs (auto) 1.10 Nucleated RBC % 0 Sodium Potassium Chloride Carbon Dioxide Anion Gap BUN Creatinine Estim Creat Clear Calc Est GFR (MDRD) Af Amer Est GFR (MDRD) Non-Af BUN/Creatinine Ratio Glucose Calcium Magnesium Total Bilirubin AST ALT Alkaline Phosphatase Total Protein Albumin Globulin Albumin/Globulin Ratio POC Glucose 234 H 250 H 01/25/20 03:00 WBC RBC Hgb Hct MCV MCH MCHC RDW Std Deviation RDW Coeff of [place] Plt Count MPV Immature Gran % (Auto) Neut % (Auto) Lymph % (Auto) [place] % (Auto) Eos % (Auto) Baso % (Auto) Absolute Neuts (auto) Absolute Lymphs (auto) Nucleated RBC % Sodium 140 Potassium 3.7 Chloride 99 Carbon Dioxide 38.0 H Anion Gap 3 L BUN 24 H Creatinine 1.17 Estim Creat Clear Calc 72.77 Est GFR (MDRD) Af Amer 81 Est GFR (MDRD) Non-Af 67 BUN/Creatinine Ratio 20.5 H Glucose 229 H Calcium 8.0 L Magnesium 1.8 Total Bilirubin AST ALT Alkaline Phosphatase Total Protein Albumin Globulin Albumin/Globulin Ratio POC Glucose Microbiology 01/20/20 16:45 Blood Culture (Wb) #2 - Anticubital Right Blood Culture - Preliminary No growth in 48 hours. 01/20/20 16:20 Blood Culture (Wb) - Anticubital Right Blood Culture - Preliminary No growth in 48 hours. Clinical Impression(s) from Imaging Studies Chest X-Ray 01/20/20 16:50 IMPRESSION: Endotracheal tube tip is 4.7 cm from kyra. Stable bilateral alveolar disease and bilateral pleural effusions, more extensive on the left. Electronically Signed: Shashank Bustamante MD at 17:10 EDT Tel , Service support , [facility] X-Ray 01/20/20 16:57 IMPRESSION: Enteric tube tip excluded from view in the mid to lower abdomen. Electronically Signed: Shashank Bustamante MD at 17:09 EDT Tel , Service support , Chest X-Ray 01/20/20 17:28 IMPRESSION: Right central catheter tip in right atrium. If SVC location is desired, withdrawal of the catheter by 3 to 4 cm. Stable left basilar alveolar disease and bilateral pleural effusions. There is no demonstrated pleural abnormality. Electronically Signed: Shashank Bustamante MD at 17:54 EDT Tel , Service support , Chest X-Ray 01/23/20 07:58 IMPRESSION: Stable left basilar alveolar disease and bilateral pleural effusions. There is no demonstrated pleural abnormality. Electronically Signed: Andreas Thacker, at 9:42 EDT Tel , Service support , Medical Necessity - Tobacco Use Smoking Status: Smoker, status unknown Tobacco Use: Non-smoker Assessment/Plan All Active Problems (Last Reviewed 01/20/20 @ 09:[address] Ian Rondon MD) Thrombocytosis (Acute) Acute exacerbation of CHF (congestive heart failure) (Resolved) RECOMMENDATIONS: 1. Continue to wean supplemental oxygen as tolerated. Encourage incentive spirometer use and mobilize patient as tolerated. 2. Continue amiodarone and systemic anticoagulation with Eliquis. 3. Continue scheduled Lasix. Consider transitioning to p.o. regimen. 4. Continue BiPAP utilization with naps and nightly. 5. The patient is currently scheduled for his sleep study tomorrow evening. IMPRESSIONS: 1. Acute on chronic combined respiratory failure secondary to chronic heart failure with preserved ejection fraction and atrial fibrillation with RVR Improved. The patient presented to the hospital in the volume overloaded state with 5 kg of weight gain. The patient is clinically in a state of heart failure exacerbation. He was also noted to be in atrial fibrillation with a rapid ventricular rate, which may have been worsened by his uncontrolled sleep apnea. Low clinical index of suspicion for underlying pulmonary infectious process. Recommend continuing volume optimization with IV diuretic therapy as tolerated by renal function and hemodynamic status. Continue to wean supplemental oxygen to maintain saturations at or above 90%. Encourage incentive spirometer use and mobilize patient as tolerated. 2. Probable untreated obstructive sleep apnea The patient is currently scheduled for a sleep study on January 25. The patient can most likely be discharged directly from the hospital to the sleep lab to facilitate the completion of testing. 3. Hyperlipidemia/morbid obesity/diabetes mellitus/hypertension Complicates care, management, recovery and prognosis. Continue home medications as indicated. This note was generated with [employer] software. It may contain incorrect words, spelling, and punctuation that were not noted in checking the note before signing. Inpatient E&M: 41914 Subs Hosp L3
[2020-01-25] MEDS: Ipratropium/Albuterol Sulfate 3 ML AMPUL.NEB INHALATION ×4 (07:08→19:31)
--- NOTE | 2020-01-25 08:20 | PCM.PN.CARD ---
Subjectve: Patient seen and evaluated. Appears to be doing well. Sitting in chair today on nasal cannula oxygen. Objective: Vital Signs Temp Pulse Resp BP Pulse Ox 98.8 F 71 21 H 96/53 L 100 01/25/20 06:00 01/25/20 06:00 01/25/20 06:00 01/25/20 06:00 01/25/20 06:00 Oxygen Flow Rate (L/min) 2 Oxygen Delivery Method Bi-pap Weight: 319 lb 0.142 oz Body Mass Index (BMI) 44.6 Finger Stick Blood Glucose 128 Intake and Output for Last 24 Hours 01/23/20 01/24/20 01/25/20 23:59 23:59 23:59 Intake Total 1506.68 / 1506.68 1124.25 / 1364.25 480 / 480 Output Total 2075 / 2075 2075 / 2425 725 / 725 Balance -568.32 / -568.32 -950.75 / -1060.75 -245 / -245 General: Awake, Alert, Oriented x 3 HEENT: PERRL, EOMI, Sclera Non Icteric Neck: Supple, Good ROM, No Lymph Node Enlargement Lungs: Clear to auscultation Cardiovascular: Irregular Rhythm, Normal S1, Normal S2, No Murmurs, No Rubs, No Gallops Vascular: No Carotid Bruits, Normal Femoral Pulses, Normal Radial Pulses, Normal Dorsalis Pedal Pulse, Normal Posterior Tibial Pulses Abdomen: Bowel Sounds Present, Soft, Non Tender, No HSM, No Organomegaly Extremities: No Cyanosis, No Clubbing, No edema Lymphatic: No Lymph Node Enlargement Neurological: No Focal Motor or Sensory Deficit Psych/Mental Status: Appropriate 01/25/20 03:00: WBC 8.2, RBC 3.16 L, Hgb 8.9 L, Hct 29.3 L, MCV 92.7, MCH 28.2, MCHC 30.4 L, Plt Count 456 H, MPV 10.4, Immature Gran % (Auto) 0.400, Neut % (Auto) 76.3 H, Lymph % (Auto) 13.4 L, [place] % (Auto) 7.3, Eos % (Auto) 2.1, Baso % (Auto) 0.5, Absolute Neuts (auto) 6.3, Nucleated RBC % 0 01/25/20 03:00: Sodium 140, Potassium 3.7, Chloride 99, Carbon Dioxide 38.0 H, Anion Gap 3 L, BUN 24 H, Creatinine 1.17, Est GFR (MDRD) Af Amer 81, Est GFR (MDRD) Non-Af 67, BUN/Creatinine Ratio 20.5 H, Glucose 229 H, Calcium 8.0 L, Magnesium 1.8 Rhythm: EKG: ECHO: Stress Test: Cardiac Cath: PCI: CT Surgery: Holter monitor: EPS: PPM: CXR: Chest CT Scan: Medical Necessity - Tobacco Use Smoking Status: Smoker, status unknown Tobacco Use: Non-smoker Assessment/Plan 1. Acute on chronic diastolic (congestive) heart failure I50.32 He does appear to have chronic congestive heart failure which is diastolic. He has clearly had 2 acute events which have led to rehospitalization's as well as an event during the hospital. In all these episodes it appears that he has CO2 issues. He has had echocardiograms performed twice in the last month both of which have demonstrated ejection fractions of 65%. The exact precipitating factor of these events is not entirely clear but it appears to be secondary to respiratory depression leading to CO2 elevation and narcosis and then pulmonary edema. He has undergone cardiac catheterization recently which has not demonstrated ischemia as an etiology. His hemoglobin also remains fairly stable. On discussion with the hospitalist as well as the energy infrastructure engineer it may be important for him to have a BiPAP or CPAP mask before he leaves the hospital. Will continue with aggressive diuresis at this time. Overall status appears to be improved 2. H/O coronary artery bypass surgery Z95.1 CABG x 4: ARREDONDO-LAD, Free ISAK from the D1 SVG-OM1, SVG-D1, SVG-RPDA 12/26/19 Plan He is status post coronary artery bypass surgery as noted above. His bypass grafts were recently evaluated and were noted to be patent. The saphenous vein graft to the posterior descending artery has an anastomotic lesion but this is being treated medically. 3. History of non-ST elevation myocardial infarction (NSTEMI) I25.2 11/17/2019, 01/04/2020 Plan He had a recent non-ST elevation myocardial infarction. I recommendation at this time is to continue with medical therapy. No changes will be made. 4. Essential (primary) hypertension I10 Plan He does have a history of hypertension which appears to be under good control on the current medical therapy. I would not suggest that we make any changes at this particular time. He remains on metoprolol as well as losartan. 5. Iron deficiency anemia, unspecified iron deficiency anemia type D50.9 Plan He does have evidence of anemia. The exact precipitating etiology is not known I suspect it was due to the Eliquis. However we did not scope him and so we do not know where the source of bleeding may be. I will recommend that we obtain a hemoglobin in approximately a week. 6. Atrial fibrillation I48.91 Plan He does have atrial fibrillation the rate of which is controlled at this time it was seen in the emergency room and in the hospital to be fairly controlled I would like him to be on the 200 mg once a day and continue to monitor his heart rate and pulse. He is also on metoprolol 100 mg twice a day. Thank you for allowing me to participate in the care of your patient. Please don't hesitate to call if any issues arise. The patient can probably be discharged to the progressive care unit today
[2020-01-25] MEDS: Aspirin 81 MG TAB.CHEW PO (08:40)
[2020-01-25] MEDS: Senna/Docusate Sodium 1 Tablet 2 TABLET PO (08:41)
[2020-01-25] MEDS: Pantoprazole Sodium 40 MG Tablet PO ×2 (08:41→21:09)
[2020-01-25] MEDS: Amiodarone 200 MG Tablet PO (08:41)
[2020-01-25] MEDS: Gabapentin 100 MG Capsule 200 MG PO (08:42)
[2020-01-25] MEDS: Metoprolol Tartrate 50 MG Tablet PO ×2 (08:48→21:08)
[2020-01-25] MEDS: Loratadine 10 MG Tablet 5 MG PO (08:48)
[2020-01-25] MEDS: Furosemide 100 MG/10 ML Vial 80 MG IV ×2 (08:49→18:33)
[2020-01-25 09:05] LABS: Bedside Glucose 182 mg/dL (70-110)
--- NOTE | 2020-01-25 09:20 | CASEMGMT ---
Patient was approved by insurance to go to TCU. SW will update patient and staff during ICU rounds this am. Plan: Sleep study 01-25 and then discharge to TCU 01-26. Bety LEON
--- NOTE | 2020-01-25 09:50 | PN.RENAL_ITS ---
Subjective: no sob/cp - Physical Exam Vitals/I&O's: Vital Signs Temp Pulse Resp BP Pulse Ox 98.8 F 87 21 H 96/53 L 100 01/25/20 06:00 01/25/20 08:48 01/25/20 06:00 01/25/20 06:00 01/25/20 06:00 Oxygen Flow Rate (L/min) 2 Oxygen Delivery Method Bi-pap Weight: 144.7 kg Body Mass Index (BMI) 44.6 Finger Stick Blood Glucose 128 Intake and Output for Last 24 Hours 01/23/20 01/24/20 01/25/20 23:59 23:59 23:59 Intake Total 1506.68 / 1506.68 1124.25 / 1364.25 480 / 480 Output Total 2075 / 2075 2075 / 2425 725 / 725 Balance -568.32 / -568.32 -950.75 / -1060.75 -245 / -245 General: Alert, Cooperative HEENT: Atraumatic, Normocephalic Oral: Moist Mucosa Neck: Supple, Trachea Midline Lungs: Clear to auscultation, Normal air movement Cardiovascular: Regular rate, Regular Rhythm Abdomen: Bowel Sounds Present, Soft Extremities: No clubbing, Edema Microbiology Past 72 Hours 01/20/20 16:45 Blood Culture (Wb) #2 - Anticubital Right Blood Culture - Preliminary No growth in 48 hours. 01/20/20 16:20 Blood Culture (Wb) - Anticubital Right Blood Culture - Preliminary No growth in 48 hours. Laboratory Results 01/24/20 12:47: POC Glucose 191 H 01/24/20 17:03: POC Glucose 234 H 01/24/20 21:15: POC Glucose 250 H 01/25/20 03:00: WBC 8.2, RBC 3.16 L, Hgb 8.9 L, Hct 29.3 L, MCV 92.7, MCH 28.2, MCHC 30.4 L, RDW Std Deviation 49.3 H, RDW Coeff of [place] 14.6, Plt Count 456 H, MPV 10.4, Immature Gran % (Auto) 0.400, Neut % (Auto) 76.3 H, Lymph % (Auto) 13.4 L, [place] % (Auto) 7.3, Eos % (Auto) 2.1, Baso % (Auto) 0.5, Absolute Neuts (auto) 6.3, Absolute Lymphs (auto) 1.10, Nucleated RBC % 0 01/25/20 03:00: Sodium 140, Potassium 3.7, Chloride 99, Carbon Dioxide 38.0 H, Anion Gap 3 L, BUN 24 H, Creatinine 1.17, Estim Creat Clear Calc 72.77, Est GFR (MDRD) Af Amer 81, Est GFR (MDRD) Non-Af 67, BUN/Creatinine Ratio 20.5 H, Glucose 229 H, Calcium 8.0 L, Magnesium 1.8 01/25/20 08:37: POC Glucose 182 H Current Medications Acetaminophen (Tylenol) 650 mg PO Q4H PRN PRN PRN Reason: Pain or Fever Last Admin: 01/24/20 21:12 Dose: 650 mg Documented by: Albuterol/Ipratropium (Duoneb) 3 ml INHALATION Q4H.RT [facility] Last Admin: 01/25/20 07:08 Dose: 3 ml Documented by: Amiodarone HCl (Cordarone) 200 mg PO DAILY [facility] Last Admin: 01/25/20 08:41 Dose: 200 mg Documented by: Aspirin (Aspirin, Baby) 81 mg PO DAILY [facility] Last Admin: 01/25/20 08:40 Dose: 81 mg Documented by: Atorvastatin Calcium (Lipitor) 80 mg PO QHS [facility] Last Admin: 01/24/20 21:11 Dose: 80 mg Documented by: Dextrose (D50w Syringe) 0 gm IV X1 PRN; Protocol PRN Reason: Hypoglycemia Furosemide (Lasix) 80 mg IV BID@1000,1800 [facility] Last Admin: 01/25/20 08:49 Dose: 80 mg Documented by: Gabapentin (Neurontin) 200 mg PO DAILY [facility] Last Admin: 01/25/20 08:42 Dose: 200 mg Documented by: Glucagon () 1 mg IM .X1 PRN PRN Reason: Hypoglycemia Sodium Chloride () 250 mls @ 15 mls/hr IV .[id number] PRN PRN Reason: Saline Flush Last Infusion: 01/23/20 14:42 Dose: 0 mls/hr Documented by: Sodium Chloride () 250 mls @ 15 mls/hr IV .[id number] PRN PRN Reason: Additional IVPB Infusion Insulin Human Lispro (Humalog Kwikpen (Bkc)) 0 unit SC ACHS [facility]; Protocol Last Admin: 01/25/20 05:24 Dose: 4 units Documented by: Loratadine (Claritin) 5 mg PO DAILY [facility] Last Admin: 01/25/20 08:48 Dose: 5 mg Documented by: Metoprolol Tartrate (Lopressor (Beta Chidi)) 50 mg PO BID [facility] Last Admin: 01/25/20 08:48 Dose: 50 mg Documented by: Pantoprazole Sodium (Protonix) 40 mg PO BID [facility] Last Admin: 01/25/20 08:41 Dose: 40 mg Documented by: Polyethylene Glycol (Miralax) 17 gm PO DAILY PRN PRN PRN Reason: CONSTIPATION Potassium Ch[facility]ide (K[facility]Dur) [facility] Admin: 01/25/20 08:42 Dose: 20 meq Documented by: Senna/Docusate Sodium (Senokot-S, Leela-Colace) 2 tablet PO BID [facility] Last Admin: 01/25/20 08:41 Dose: 2 tablet Documented by: Sodium Chloride () 10 - 40 ml IV UD PRN PRN Reason: SALINE FLUSH Last Admin: 01/25/20 05:24 Dose: 30 ml Documented by: Medical Necessity - Tobacco Use Smoking Status: Smoker, status unknown Tobacco Use: Non-smoker Assessment/Plan All Active Problems (Last Reviewed 01/20/20 @ 09:[address] Ian Rondon MD) Thrombocytosis (Acute) Acute exacerbation of CHF (congestive heart failure) (Resolved) ROBERT prerenal ATN with hypotension LE edema HF Respiratory failure s/p intubation Scr 1.1 stable On Lasix IV rec to switch to po in 1-2 days to 80 mg po bid. Might need to add thiazide if no significant improvement with loop diuretics alone keep MAP more than 65 Avoid nephrotoxins and overdiuresis d/w dr. Perry and patient.
[2020-01-25 12:41] LABS: Bedside Glucose 237 mg/dL (70-110)
--- NOTE | 2020-01-25 13:30 | CASEMGMT ---
ADITI CM Note: call received from [facility] requesting TCU be updated that pt will leave sleep lab between 5:30 and 6 am. Corinna updated and will contact TCU re post sleep lab arrangements. Alok PORTER RN ACM
--- NOTE | 2020-01-25 17:06 | PCM.PN.HOSP ---
Reason for Visit: Follow-up for acute combined respiratory failure secondary to pulmonary edema. Subjective: Patient blood pressure 133/64. In ICU patient was on the room air. Downgraded to PCU. General: Alert, Cooperative, Morbid obesity HEENT: Atraumatic, PERRLA, EOMI, Normocephalic Oral: Oral mucosa dry. Neck: Supple, No JVD, Negative Carotid Bruits Lungs: -Air entry diminished bilateral lungs. No crepitation/rhonchi.. Cardiovascular: Regular rate, Normal S1, Normal S2, No murmurs, residential monitor shows Frequent PVCs. Sinus rhythm Abdomen: Bowel Sounds Present, Soft, Non Tender Extremities: Capillary Refill Less than 3 Seconds, 2+ bilateral lower legs edema Skin: No rashes, No breakdown Musculoskeletal: No Tenderness to Palpation of Joints or Extremities, Arthritic Changes Neurological: Cranial nerves II-XII grossly intact, Neuro grossly intact Psych/Mental Status: Normal Affect, Appropriate Vitals/I&O's: Vital Signs Temp Pulse Resp BP Pulse Ox 99.0 F 79 20 H 97/55 L 96 01/25/20 14:35 01/25/20 15:18 01/25/20 15:18 01/25/20 14:35 01/25/20 16:45 Oxygen Flow Rate (L/min) 2 Oxygen Delivery Method Nasal Cannula Weight: 319 lb 0.142 oz Body Mass Index (BMI) 44.6 Finger Stick Blood Glucose 128 Intake and Output for Last 24 Hours 01/23/20 01/24/20 01/25/20 23:59 23:59 23:59 Intake Total 1506.68 / 1506.68 1124.25 / 1364.25 780 / 780 Output Total 2075 / 2075 2075 / 2425 1200 / 1200 Balance -568.32 / -568.32 -950.75 / -1060.75 -420 / -420 Microbiology Past 72 Hours 01/20/20 16:45 Blood Culture (Wb) #2 - Anticubital Right Blood Culture - Preliminary No growth in 48 hours. 01/20/20 16:20 Blood Culture (Wb) - Anticubital Right Blood Culture - Preliminary No growth in 48 hours. Laboratory Results 01/24/20 17:03: POC Glucose 234 H 01/24/20 21:15: POC Glucose 250 H 01/25/20 03:00: WBC 8.2, RBC 3.16 L, Hgb 8.9 L, Hct 29.3 L, MCV 92.7, MCH 28.2, MCHC 30.4 L, RDW Std Deviation 49.3 H, RDW Coeff of Clayton 14.6, Plt Count 456 H, MPV 10.4, Immature Gran % (Auto) 0.400, Neut % (Auto) 76.3 H, Lymph % (Auto) 13.4 L, [place] % (Auto) 7.3, Eos % (Auto) 2.1, Baso % (Auto) 0.5, Absolute Neuts (auto) 6.3, Absolute Lymphs (auto) 1.10, Nucleated RBC % 0 01/25/20 03:00: Sodium 140, Potassium 3.7, Chloride 99, Carbon Dioxide 38.0 H, Anion Gap 3 L, BUN 24 H, Creatinine 1.17, Estim Creat Clear Calc 72.77, Est GFR (MDRD) Af Amer 81, Est GFR (MDRD) Non-Af 67, BUN/Creatinine Ratio 20.5 H, Glucose 229 H, Calcium 8.0 L, Magnesium 1.8 01/25/20 08:37: POC Glucose 182 H 01/25/20 12:29: POC Glucose 237 H Current Medications Acetaminophen (Tylenol) 650 mg PO Q4H PRN PRN PRN Reason: Pain or Fever Last Admin: 01/24/20 21:12 Dose: 650 mg Documented by: Albuterol/Ipratropium (Duoneb) 3 ml INHALATION Q4H.RT [facility] Last Admin: 01/25/20 15:18 Dose: 3 ml Documented by: Amiodarone HCl (Cordarone) 200 mg PO DAILY [facility] Last Admin: 01/25/20 08:41 Dose: 200 mg Documented by: Aspirin (Aspirin, Baby) 81 mg PO DAILY [facility] Last Admin: 01/25/20 08:40 Dose: 81 mg Documented by: Atorvastatin Calcium (Lipitor) 80 mg PO QHS [facility] Last Admin: 01/24/20 21:11 Dose: 80 mg Documented by: Dextrose (D50w Syringe) 0 gm IV X1 PRN; Protocol PRN Reason: Hypoglycemia Furosemide (Lasix) 80 mg IV BID@1000,1800 [facility] Last Admin: 01/25/20 08:49 Dose: 80 mg Documented by: Gabapentin (Neurontin) 200 mg PO DAILY [facility] Last Admin: 01/25/20 08:42 Dose: 200 mg Documented by: Glucagon () 1 mg IM .X1 PRN PRN Reason: Hypoglycemia Sodium Chloride () 250 mls @ 15 mls/hr IV .[id number] PRN PRN Reason: Saline Flush Last Infusion: 01/23/20 14:42 Dose: 0 mls/hr Documented by: Sodium Chloride () 250 mls @ 15 mls/hr IV .[id number] PRN PRN Reason: Additional IVPB Infusion Insulin Glargine (Lantus (Bkc)) 10 units SC QHS [facility] Insulin Human Lispro (Humalog Kwikpen ([facility])) 0 unit SC ACHS [facility]; Protocol Last Admin: 01/25/20 12:30 Dose: 4 units Documented by: Loratadine (Claritin) 5 mg PO DAILY [facility] Last Admin: 01/25/20 08:48 Dose: 5 mg Documented by: Metoprolol Tartrate (Lopressor (Beta Chidi)) 50 mg PO BID [facility] Last Admin: 01/25/20 08:48 Dose: 50 mg Documented by: Pantoprazole Sodium (Protonix) 40 mg PO BID [facility] Last Admin: 01/25/20 08:41 Dose: 40 mg Documented by: Polyethylene Glycol (Miralax) 17 gm PO DAILY PRN PRN PRN Reason: CONSTIPATION Potassium [facility] ([facility]) [facility] Last Admin: 01/25/20 08:42 Dose: 20 meq Documented by: Senna/Docusate Sodium (Senokot-S, Leela-Colace) 2 tablet PO BID [facility] Last Admin: 01/25/20 08:41 Dose: 2 tablet Documented by: Sodium Chloride () 10 - 40 ml IV UD PRN PRN Reason: SALINE FLUSH Last Admin: 01/25/20 05:24 Dose: 30 ml Documented by: STROKE Vital Signs/Narrative: Vital Signs Temp Pulse Resp BP Pulse Ox 01/25/20 16:45 96 01/25/20 15:18 79 20 H 01/25/20 14:35 99.0 F 76 18 97/55 L 95 Medical Necessity - Tobacco Use Smoking Status: Smoker, status unknown Tobacco Use: Non-smoker Assessment/Plan All Active Problems (Last Reviewed 01/20/20 @ 09:[address] Ian Rondon MD) Thrombocytosis (Acute) Acute exacerbation of CHF (congestive heart failure) (Resolved) This is a 59 year old M with PMHx of CAD status post CABG, atrial fibrillation, chronic diastolic CHF with EF 65%, hypertension, type II DM, recently discharged on 01/18/20 after prolonged hospital stay was admitted with progressive worsening shortness of breath, consistent with acute combined respiratory failure secondary to acute on chronic diastolic heart failure. 1. Acute combined respiratory failure secondary to CO2 retention/acute on chronic diastolic CHF/undiagnosed VASILIY: Patient was intubated on 01/20/2020. Last time patient was discharged on oxygen. Currently intubated. On mechanical ventilator. FiO2 30%. Grouter Helper consulted. Patient will need direct sleep study after discharge. At home, patient cannot live with on BiPAP. 01/23: Patient extubated. On rescue BiPAP and at night. Continue diuresis. Incentive spirometry and pep. 01/24: Patient downgraded to PCU. Will need sleep study test while in hospital and plan for discharge to SNF in few days 2. Hypotension, likely sedative medication side-effects( propofol), improved: Patient is off pressors. Blood pressure 105/65. 01/23: Patient blood pressure is better. 01/24: Lasix changed to 80 mg p.o. twice daily. Discussed with sales and service engineer. Since patient achieved his lean body weight. CO2 38. Will maintain on Lasix 80 mg twice daily. 2. ROBERT, admitting creatinine 1.69, likely prerenal, improving: Last night patient creatinine went up to 2.88 which was resolved to normal at time of discharge 0.98. This time admitted with creatinine 1.69. Creatinine is 1.4.continue Lasix. Electrolytes within acceptable limits. CO2 35 01/23: Kidney function is improving. BUN/creatinine 26/1.13. Urine output 2000 mL in last 24 hours. Fluid balance net negative -1800 mL. Seen by sales and service engineer. 01/24: Renal function is holding up on diuretics. 3. Hyperkalemia, resolved 4. Acute on chronic diastolic CHF, on Lasix, On amiodarone, aspirin. Not on beta-chidi and KARISSA/ARB because of acute kidney injury and blood pressure on lower side and fluid overload/CHF exacerbation. 01/23: Metoprolol resumed. 5. CAD status post CABG/atrial fibrillation, rate controlled/hypertension, all remain stable. CABG x 4: ARREDONDO-LAD, Free ISAK from the D1 SVG-OM1, SVG-D1, SVG-RPDA 12/26/19 continue on aspirin, apixaban, amiodarone, statin. residential monitor shows pulses bigeminy with frequent PVCs. hold off on losartan on account of current hypotension 6. Type II DM, on insulin and metformin continue with blood glucose checks with insulin sliding scale every 6 hourly. Hold oral hypoglycemic agents. 7. Iron deficiency anemia with episode of recent possible acute blood loss anemia status post 2 units of transfusion during previous hospital stay. Patient was not scoped secondary to hemodynamic instability. DVT prophylaxis-apixaban Inpatient E&M: 97298 Subs Hosp L2
[2020-01-25 17:56] LABS: Bedside Glucose 259 mg/dL (70-110)
[2020-01-25] MEDS: Atorvastatin Calcium 80 MG Tablet PO (21:08)
[2020-01-25 22:26] LABS: Bedside Glucose 262 mg/dL (70-110)
[2020-01-26] VITALS (15 sets, daily range): BP systolic 114–128; BP diastolic 57–74; PULSE 60–97; RESP 12–20; TEMP 36.7–37.3; O2SAT 91–99
[2020-01-26] MEDS: Insulin Lispro 100 UNIT/ML INSULN.PEN SC ×3 (06:52→17:02)
[2020-01-26 06:58] LABS: Absolute Lymphocyte Count 1.06 X10^3/uL (0.83-4.51); Absolute Neutrophil Count 5.5 X10^3/uL (2.0-7.7); Basophil# 0.06 X10^3/uL; Basophil% 0.8 % (0-1); Eosinophil# 0.23 X10^3/uL; Eosinophils% 3.1 % (0-5); Hematocrit 30.9 % (40-54); Hemoglobin 9.2 g/dL (13.0-16.5); Lymphocyte # 1.06 X10^3/ul (4.0); Lymphocyte % 14.2 % (19-41); Mean Corp Hgb Conc 29.8 g/dL (32-36); Mean Corpuscular Hgb 27.7 pg (27.0-32.0); Mean Corpuscular Volume 93.1 fL (80-94); Mean Platelet Vol. 10.7 fl (6.2-12.0); NRBC Flagged by Analyzer 0 % (0-5); Neutrophil % 73.6 % (47-70); Platelet Count 488 K/mm3 (150-450); RBC Distribution Width CV 14.6 % (11.6-14.6); RBC Distribution Width SD 49.2 fl (35.1-43.9); Red Blood Count 3.32 M/mm3 (4.6-6.2); White Blood Count 7.5 K/mm3 (4.4-11.0)
[2020-01-26 07:05] LABS: Bedside Glucose 206 mg/dL (70-110)
--- NOTE | 2020-01-26 07:13 | PCM.PN.PUL ---
Subjective: The patient was seen and examined at the bedside this morning. Events from the last 24 hours have been reviewed. The patient is currently afebrile, hemodynamically stable and maintaining appropriate oxygen saturations on 2 L/min via nasal cannula. The patient once again tolerated BiPAP overnight. There are plans for the patient to be discharged directly to the sleep lab this evening to complete a split-night sleep study. Upon discharge from the sleep lab on the morning of January 26, he will be admitted to the TCU. BiPAP will be continued on the transitional care unit while equipment has been set up for his home use. The patient is currently documented to be overall net -3.2 L for the hospital admission. Objective: The patient's most recent lab work, culture data and imaging studies have all been personally reviewed. Coronavirus PCR was negative. Blood cultures have shown no growth to date. - Physical Exam Vitals/I&O's: Vital Signs Temp Pulse Resp BP Pulse Ox 98.8 F 72 18 128/74 H 98 01/26/20 06:54 01/26/20 06:54 01/26/20 06:54 01/26/20 06:54 01/26/20 06:54 Oxygen Flow Rate (L/min) 2 Oxygen Delivery Method Nasal Cannula Weight: 319 lb 7.197 oz Body Mass Index (BMI) 44.6 Finger Stick Blood Glucose 128 Intake and Output for Last 24 Hours 01/24/20 01/25/20 01/26/20 23:59 23:59 23:59 Intake Total 1124.25 / 1364.25 1140 / 1140 240 / 240 Output Total 2075 / 2425 2024 / 2024 350 / 350 Balance -950.75 / -1060.75 -885 / -885 -110 / -110 General: Alert, Cooperative, No apparent distress, - - Sitting in bedside recliner. Morbidly obese. HEENT: Atraumatic, Normocephalic Oral: No Gingival or Mucosal Lesions/ Ulcerations Neck: Supple, No Nodes, Trachea Midline Lungs: No rhonchi, No wheeze, No rales, Diminished Cardiovascular: Normal S1, Normal S2, No murmurs, Irregular Rate Abdomen: Bowel Sounds Present, Soft, Non Tender, Obese Extremities: No clubbing, No cyanosis, Edema Skin: - - No significant change from previous Musculoskeletal: No Tenderness to Palpation of Joints or Extremities, No Muscle Wasting Lymphatic: No Cervical, Supraclavicular, or Inguinal Adenopathy Neurological: Cranial nerves II-XII grossly intact, Neuro grossly intact Psych/Mental Status: Alert and oriented to time, place, person, mood and affect Labs (Last 48 Hours) 01/24/20 01/24/20 01/24/20 12:47 17:03 21:15 WBC RBC Hgb Hct MCV MCH MCHC RDW Std Deviation RDW Coeff of Clayton Plt Count MPV Immature Gran % (Auto) Neut % (Auto) Lymph % (Auto) Rich % (Auto) Eos % (Auto) Baso % (Auto) Absolute Neuts (auto) Absolute Lymphs (auto) Nucleated RBC % Sodium Potassium Chloride Carbon Dioxide Anion Gap BUN Creatinine Estim Creat Clear Calc Est GFR (MDRD) Af Amer Est GFR (MDRD) Non-Af BUN/Creatinine Ratio Glucose Calcium Magnesium POC Glucose 191 H 234 H 250 H 01/25/20 01/25/20 01/25/20 03:00 03:00 08:37 WBC 8.2 RBC 3.16 L Hgb 8.9 L Hct 29.3 L MCV 92.7 MCH 28.2 MCHC 30.4 L RDW Std Deviation 49.3 H RDW Coeff of Clayton 14.6 Plt Count 456 H MPV 10.4 Immature Gran % (Auto) 0.400 Neut % (Auto) 76.3 H Lymph % (Auto) 13.4 L Rich % (Auto) 7.3 Eos % (Auto) 2.1 Baso % (Auto) 0.5 Absolute Neuts (auto) 6.3 Absolute Lymphs (auto) 1.10 Nucleated RBC % 0 Sodium 140 Potassium 3.7 Chloride 99 Carbon Dioxide 38.0 H Anion Gap 3 L BUN 24 H Creatinine 1.17 Estim Creat Clear Calc 72.77 Est GFR (MDRD) Af Amer 81 Est GFR (MDRD) Non-Af 67 BUN/Creatinine Ratio 20.5 H Glucose 229 H Calcium 8.0 L Magnesium 1.8 POC Glucose 182 H 01/25/20 01/25/20 01/25/20 12:29 16:42 21:05 WBC RBC Hgb Hct MCV MCH MCHC RDW Std Deviation RDW Coeff of Clayton Plt Count MPV Immature Gran % (Auto) Neut % (Auto) Lymph % (Auto) Rich % (Auto) Eos % (Auto) Baso % (Auto) Absolute Neuts (auto) Absolute Lymphs (auto) Nucleated RBC % Sodium Potassium Chloride Carbon Dioxide Anion Gap BUN Creatinine Estim Creat Clear Calc Est GFR (MDRD) Af Amer Est GFR (MDRD) Non-Af BUN/Creatinine Ratio Glucose Calcium Magnesium POC Glucose 237 H 259 H 262 H 01/26/20 01/26/20 01/26/20 06:25 06:25 06:50 WBC 7.5 RBC 3.32 L Hgb 9.2 L Hct 30.9 L MCV 93.1 MCH 27.7 MCHC 29.8 L RDW Std Deviation 49.2 H RDW Coeff of Clayton 14.6 Plt Count 488 H MPV 10.7 Immature Gran % (Auto) 0.300 Neut % (Auto) 73.6 H Lymph % (Auto) 14.2 L Rich % (Auto) 8.0 Eos % (Auto) 3.1 Baso % (Auto) 0.8 Absolute Neuts (auto) 5.5 Absolute Lymphs (auto) 1.06 Nucleated RBC % 0 Sodium Pending Potassium Pending Chloride Pending Carbon Dioxide Pending Anion Gap Pending BUN Pending Creatinine Pending Estim Creat Clear Calc Est GFR (MDRD) Af Amer Pending Est GFR (MDRD) Non-Af Pending BUN/Creatinine Ratio Pending Glucose Pending Calcium Pending Magnesium POC Glucose 206 H Clinical Impression(s) from Imaging Studies Chest X-Ray 01/20/20 16:50 IMPRESSION: Endotracheal tube tip is 4.7 cm from kyra. Stable bilateral alveolar disease and bilateral pleural effusions, more extensive on the left. Electronically Signed: Shashank Bustamante MD at 17:10 EDT Tel , Service support , KUB X-Ray 01/20/20 16:57 IMPRESSION: Enteric tube tip excluded from view in the mid to lower abdomen. Electronically Signed: Shashank Bustamante MD at 17:09 EDT Tel , Service support , Chest X-Ray 01/20/20 17:28 IMPRESSION: Right central catheter tip in right atrium. If SVC location is desired, withdrawal of the catheter by 3 to 4 cm. Stable left basilar alveolar disease and bilateral pleural effusions. There is no demonstrated pleural abnormality. Electronically Signed: Shashank Bustamante MD at 17:54 EDT Tel , Service support , Chest X-Ray 01/23/20 07:58 IMPRESSION: Stable left basilar alveolar disease and bilateral pleural effusions. There is no demonstrated pleural abnormality. Electronically Signed: Andreas Thacker, at 9:42 EDT Tel , Service support , Current Medications Acetaminophen (Tylenol) 650 mg PO Q4H PRN PRN PRN Reason: Pain or Fever Last Admin: 01/24/20 21:12 Dose: 650 mg Documented by: Albuterol/Ipratropium (Duoneb) 3 ml INHALATION Q4H.RT [facility] Last Admin: 01/26/20 03:00 Dose: Not Given Documented by: Amiodarone HCl (Cordarone) 200 mg PO DAILY [facility] Last Admin: 01/25/20 08:41 Dose: 200 mg Documented by: Aspirin (Aspirin, Baby) 81 mg PO DAILY [facility] Last Admin: 01/25/20 08:40 Dose: 81 mg Documented by: Atorvastatin Calcium (Lipitor) 80 mg PO QHS [facility] Last Admin: 01/25/20 21:08 Dose: 80 mg Documented by: Dextrose (D50w Syringe) 0 gm IV X1 PRN; Protocol PRN Reason: Hypoglycemia Furosemide (Lasix) 80 mg PO BID@1000,1800 [facility] Gabapentin (Neurontin) 200 mg PO DAILY [facility] Last Admin: 01/25/20 08:42 Dose: 200 mg Documented by: Glucagon () 1 mg IM .X1 PRN PRN Reason: Hypoglycemia Sodium Chloride () 250 mls @ 15 mls/hr IV .[id number] PRN PRN Reason: Saline Flush Last Infusion: 01/23/20 14:42 Dose: 0 mls/hr Documented by: Sodium Chloride () 250 mls @ 15 mls/hr IV .[id number] PRN PRN Reason: Additional IVPB Infusion Insulin Glargine (Lantus (Bkc)) 10 units SC QHS [facility] Last Admin: 01/25/20 21:07 Dose: 10 u Documented by: Insulin Human Lispro (Humalog Kwikpen (Bk)) 0 unit SC ACHS [facility]; Protocol Last Admin: 01/26/20 06:52 Dose: 4 units Documented by: Loratadine (Claritin) 5 mg PO DAILY [facility] Last Admin: 01/25/20 08:48 Dose: 5 mg Documented by: Metoprolol Tartrate (Lopressor (Beta Chidi)) 50 mg PO BID [facility] Last Admin: 01/25/20 21:08 Dose: 50 mg Documented by: Pantoprazole Sodium (Protonix) 40 mg PO BID [facility] Last Admin: 01/25/20 21:09 Dose: 40 mg Documented by: Polyethylene Glycol (Miralax) 17 gm PO DAILY PRN PRN PRN Reason: CONSTIPATION Potassium Chloride (K-Dur) [facility] Last Admin: 01/25/20 18:34 Dose: 20 meq Documented by: Senna/Docusate Sodium (Senokot-S, Leela-Colace) 2 tablet PO BID [facility] Last Admin: 01/25/20 21:09 Dose: Not Given Documented by: Sodium Chloride () 10 - 40 ml IV UD PRN PRN Reason: SALINE FLUSH Last Admin: 01/25/20 18:33 Dose: 10 ml Documented by: Medical Necessity - Tobacco Use Smoking Status: Smoker, status unknown Tobacco Use: Non-smoker Assessment/Plan All Active Problems (Last Reviewed 01/20/20 @ 09:[address] Ian Rondon MD) Thrombocytosis (Acute) Acute exacerbation of CHF (congestive heart failure) (Resolved) RECOMMENDATIONS: 1. Continue to wean supplemental oxygen as tolerated. Encourage incentive spirometer use and mobilize patient as tolerated. 2. Continue scheduled Lasix. 3. Continue BiPAP utilization with naps and nightly. 4. The patient is currently scheduled for his sleep study this evening. 5. Upon admission to the TCU, I would recommend that BiPAP be continued with a pressure support of 18/8 with naps and nightly. 6. The patient will need to follow-up in the pulmonary medicine clinic upon discharge from the TCU. IMPRESSIONS: 1. Acute on chronic combined respiratory failure secondary to chronic heart failure with preserved ejection fraction and atrial fibrillation with RVR Improved. The patient presented to the hospital in the volume overloaded state with 5 kg of weight gain. The patient is clinically in a state of heart failure exacerbation. He was also noted to be in atrial fibrillation with a rapid ventricular rate, which may have been worsened by his uncontrolled sleep apnea. Low clinical index of suspicion for underlying pulmonary infectious process. Recommend continuing volume optimization with IV diuretic therapy as tolerated by renal function and hemodynamic status. Continue to wean supplemental oxygen to maintain saturations at or above 90%. Encourage incentive spirometer use and mobilize patient as tolerated. 2. Probable untreated obstructive sleep apnea The patient is currently scheduled for a sleep study on January 25. The plan is for the patient to be discharged directly this evening to the sleep lab to complete his split-night sleep study. 3. Hyperlipidemia/morbid obesity/diabetes mellitus/hypertension Complicates care, management, recovery and prognosis. Continue home medications as indicated. This note was generated with [employer] dictation software. It may contain incorrect words, spelling, and punctuation that were not noted in checking the note before signing. Inpatient E&M: 01353 Subs Hosp L2
[2020-01-26 07:21] LABS: Anion Gap 2 (5-15); BUN 19 mg/dL (7-18); BUN/Creat Ratio 16.2 RATIO (10-20); Calcium,Total 8.2 mg/dL (8.5-10.1); Chloride 100 mmol/L (98-107); Creatinine, Serum 1.17 mg/dL (0.70-1.30); EST Glomerular Filtration Rate 67 mL/min (>60); Est Glom Filt Rate - Afr Amer 81 mL/min (>60); Estimated Creatinine Clearance 72.77 ml/min; Glucose 229 mg/dL (74-106); Potassium 3.8 mmol/L (3.5-5.1); Sodium Level 139 mmol/L (136-145)
[2020-01-26] MEDS: Ipratropium/Albuterol Sulfate 3 ML AMPUL.NEB INHALATION ×4 (07:34→19:23)
--- NOTE | 2020-01-26 08:00 | SLEEP ---
Spoke with patient to explain procedure for tonight's sleep study and answer any questions he had. He is agreeable to proceeding and understands the benefits of pap therapy to [facility]. Per Kathleen RN and Sara LINDSEY, pt is SBA, using walker for stability, and pretty self sufficient in his own care. Aware he needs any meds prior to SL arrival at 8pm. He is aware and agreeable to dc to TCU with use of hospital pap as per Dr. Heaton, until his study is interpreted and pap therapy is prescribed and able to be s/u.
--- NOTE | 2020-01-26 08:57 | PN.RENAL_ITS ---
Subjective: Chest is lower extremity edema is improving he denies any shortness of breath or chest pain - Physical Exam Vitals/I&O's: Vital Signs Temp Pulse Resp BP Pulse Ox 98.8 F 68 16 128/74 H 92 01/26/20 06:54 01/26/20 07:34 01/26/20 07:34 01/26/20 06:54 01/26/20 07:34 Oxygen Flow Rate (L/min) 2 Oxygen Delivery Method Nasal Cannula Weight: 144.9 kg Body Mass Index (BMI) 44.6 Finger Stick Blood Glucose 128 Intake and Output for Last 24 Hours 01/24/20 01/25/20 01/26/20 23:59 23:59 23:59 Intake Total 1124.25 / 1364.25 1140 / 1140 240 / 240 Output Total 2074 / 2424 2024 / 2024 350 / 350 Balance -950.75 / -1060.75 -885 / -885 -110 / -110 General: Alert, Cooperative HEENT: Atraumatic, EOMI Oral: Moist Mucosa Neck: Supple, Trachea Midline Lungs: Clear to auscultation, Normal air movement Cardiovascular: Regular rate, Regular Rhythm, Normal S1, Normal S2 Abdomen: Bowel Sounds Present, Soft, Obese Microbiology Past 72 Hours 01/20/20 16:45 Blood Culture (Wb) #2 - Anticubital Right Blood Culture - Final No growth in 5 days. 01/20/20 16:20 Blood Culture (Wb) - Anticubital Right Blood Culture - Final No growth in 5 days. Laboratory Results 01/25/20 08:37: POC Glucose 182 H 01/25/20 12:29: POC Glucose 237 H 01/25/20 16:42: POC Glucose 259 H 01/25/20 21:05: POC Glucose 262 H 01/26/20 06:25: WBC 7.5, RBC 3.32 L, Hgb 9.2 L, Hct 30.9 L, MCV 93.1, MCH 27.7, MCHC 29.8 L, RDW Std Deviation 49.2 H, RDW Coeff of Clayton 14.6, Plt Count 488 H, MPV 10.7, Immature Gran % (Auto) 0.300, Neut % (Auto) 73.6 H, Lymph % (Auto) 14.2 L, [place] % (Auto) 8.0, Eos % (Auto) 3.1, Baso % (Auto) 0.8, Absolute Neuts (auto) 5.5, Absolute Lymphs (auto) 1.06, Nucleated RBC % 0 01/26/20 06:25: Sodium 139, Potassium 3.8, Chloride 100, Carbon Dioxide 37.0 H, Anion Gap 2 L, BUN 19 H, Creatinine 1.17, Estim Creat Clear Calc 72.77, Est GFR (MDRD) Af Amer 81, Est GFR (MDRD) Non-Af 67, BUN/Creatinine Ratio 16.2, Glucose 229 H, Calcium 8.2 L 01/26/20 06:50: POC Glucose 206 H Current Medications Acetaminophen (Tylenol) 650 mg PO Q4H PRN PRN PRN Reason: Pain or Fever Last Admin: 01/24/20 21:12 Dose: 650 mg Documented by: Albuterol/Ipratropium (Duoneb) 3 ml INHALATION Q4H.RT [facility] Last Admin: 01/26/20 07:34 Dose: 3 ml Documented by: Amiodarone HCl (Cordarone) 200 mg PO DAILY [facility] Last Admin: 01/25/20 08:41 Dose: 200 mg Documented by: Aspirin (Aspirin, Baby) 81 mg PO DAILY [facility] Last Admin: 01/25/20 08:40 Dose: 81 mg Documented by: Atorvastatin Calcium (Lipitor) 80 mg PO QHS [facility] Last Admin: 01/25/20 21:08 Dose: 80 mg Documented by: Dextrose (D50w Syringe) 0 gm IV X1 PRN; Protocol PRN Reason: Hypoglycemia Furosemide (Lasix) 80 mg PO BID@1000,1800 [facility] Gabapentin (Neurontin) 200 mg PO DAILY [facility] Last Admin: 01/25/20 08:42 Dose: 200 mg Documented by: Glucagon () 1 mg IM .X1 PRN PRN Reason: Hypoglycemia Sodium Chloride () 250 mls @ 15 mls/hr IV .[id number] PRN PRN Reason: Saline Flush Last Infusion: 01/23/20 14:42 Dose: 0 mls/hr Documented by: Sodium Chloride () 250 mls @ 15 mls/hr IV .[id number] PRN PRN Reason: Additional IVPB Infusion Insulin Glargine (Lantus (Bkc)) 10 units SC QHS [facility] Last Admin: 01/25/20 21:07 Dose: 10 u Documented by: Insulin Human Lispro (Humalog Kwikpen (Bkc)) 0 unit SC [facility]; Protocol Last Admin: 01/26/20 06:52 Dose: 4 units Documented by: Loratadine (Claritin) 5 mg PO DAILY [facility] Last Admin: 01/25/20 08:48 Dose: 5 mg Documented by: Metoprolol Tartrate (Lopressor (Beta Chidi)) 50 mg PO BID [facility] Last Admin: 01/25/20 21:08 Dose: 50 mg Documented by: Pantoprazole Sodium (Protonix) 40 mg PO BID [facility] Last Admin: 01/25/20 21:09 Dose: 40 mg Documented by: Polyethylene Glycol (Miralax) 17 gm PO DAILY PRN PRN PRN Reason: CONSTIPATION Potassium Ch[facility] ([facility]Dur[facility] Last Admin: 01/25/20 18:34 Dose: 20 meq Documented by: Senna/Docusate Sodium (Senokot-S, Leela-Colace) 2 tablet PO BID [facility] Last Admin: 01/25/20 21:09 Dose: Not Given Documented by: Sodium Chloride () 10 - 40 ml IV UD PRN PRN Reason: SALINE FLUSH Last Admin: 01/25/20 18:33 Dose: 10 ml Documented by: Medical Necessity - Tobacco Use Smoking Status: Smoker, status unknown Tobacco Use: Non-smoker Assessment/Plan All Active Problems (Last Reviewed 01/20/20 @ 09:[address] Ian Rondon MD) Thrombocytosis (Acute) Acute exacerbation of CHF (congestive heart failure) (Resolved) ROBERT prerenal ATN with hypotension LE edema HF Respiratory failure s/p intubation Scr 1.1 stable On Lasix IV rec to switch to 80 mg po bid on discharge Might need to add thiazide if no significant improvement with loop diuretics alone keep MAP more than 65 Avoid nephrotoxins and overdiuresis d/w dr. Perry and patient and RN
[2020-01-26] MEDS: Aspirin 81 MG TAB.CHEW PO (09:01)
[2020-01-26] MEDS: Amiodarone 200 MG Tablet PO (09:01)
[2020-01-26] MEDS: Loratadine 10 MG Tablet 5 MG PO (09:01)
[2020-01-26] MEDS: Metoprolol Tartrate 50 MG Tablet PO ×2 (09:02→18:26)
[2020-01-26] MEDS: Gabapentin 100 MG Capsule 200 MG PO (09:02)
[2020-01-26] MEDS: Pantoprazole Sodium 40 MG Tablet PO ×2 (09:02→18:27)
[2020-01-26] MEDS: Senna/Docusate Sodium 1 Tablet 2 TABLET PO (09:03)
--- NOTE | 2020-01-26 10:09 | NURSING ---
RIJ removed at this time. removed tegaderm. 2 sutures removed, line removed without resistance, tip intact, pressure applied for 5 minutes, applied gauze with petroleum and opsite. pt left supine. pt tolerated well.
[2020-01-26] MEDS: guaiFENesin 1,200 MG Tablet 1200 MG PO ×2 (11:03→18:25)
[2020-01-26] MEDS: Furosemide 100 MG/10 ML Vial 80 MG IV ×2 (11:03→17:02)
--- NOTE | 2020-01-26 11:24 | DCINST_ITS ---
You will use the following diet at home:: Cardiac Discharge Activity: Return to Normal Activity Call your doctor if you observe: Shortness of breath, Dizziness, Fainting spells, Chest pain Additional Instructions: HOLD Eliquis until follow-up with cardiology. Allergies/Adverse Reactions: Allergies No Known Allergies Allergy (Verified 01/20/20 08:35) Medications to take at Discharge Atorvastatin Calcium [Lipitor] 80 mg PO QHS 11/17/19 Ipratropium [place] 0.06% [ATROVENT NASAL SPRAY] 1 spray INHALATION DAILY PRN PRN 11/17/19 Temazepam 15 mg PO QHS PRN PRN 11/17/19 Gabapentin [Neurontin] 200 mg PO DAILY 01/04/20 Magnesium Oxide 400 mg PO DAILY 01/04/20 Polyethylene Glycol 3350 [Miralax] 17 gm PO DAILY 01/04/20 Amiodarone HCl 200 mg PO DAILY 01/20/20 Furosemide 40 mg PO DAILY@1500 01/20/20 Insulin Glargine [Lantus SoloStar Pen] 10 units SUBCUT QHS 01/20/20 Metoprolol Tartrate [Lopressor (beta ronen)] 100 mg PO BID 01/20/20 Pantoprazole Sodium [Protonix] 40 mg PO BID 01/20/20 aspirin 81 mg chewable tablet 1 tab PO DAILY@0800 tab 01/20/20 furosemide 40 mg tablet 80 mg PO DAILY@0900 tab 01/20/20 levocetirizine 5 mg tablet 5 mg PO DAILY 01/20/20 losartan 50 mg tablet 50 mg PO DAILY 01/20/20 metformin 1,000 mg tablet 1,000 mg PO BIDCM tab 01/20/20 Insulin Lispro [Humalog KwikPen] See Protocol SC ACHS insuln.pen 01/26/20 Potassium Chloride [K-Dur] 20 meq PO DAILY tablet 01/26/20 Primary Care Physician: Josué Rodriguez MD [Primary Care Provider] - Please follow up with your Primary Care Physician in: 1 Week Test Results: Test results from this visit will be discussed in further detail at your follow- up appointment, if applicable. Please Follow Up With: Ian Rondon MD When: 1-2 Weeks Please Follow Up With: Sleep Lab When: As scheduled 01/26/2020 Please Follow Up With: Kika Mendoza NP-C When: 02/09/2020 Please Follow Up With: Olegario Qiu MD When: 2 Weeks, call for follow up regarding outpatient EGD/colonoscopy. Please Follow Up With: Morro Loja MD When: 1 Week, call to establish for follow up 5 mm left kidney stone Proposed Discharge Date: 01/26/20
[2020-01-26] MEDS: Acetaminophen 325 MG Tablet 650 MG PO (11:57)
--- NOTE | 2020-01-26 12:14 | PHA.DC.MR ---
Pharmacy Service has performed discharge medication reconciliation for this patient. The patient's discharge medication list was reviewed for discrepancies and discrepancies were resolved. Home Medications Atorvastatin Calcium [Lipitor] 80 mg PO QHS 11/17/19 Ipratropium [place] 0.06% [ATROVENT NASAL SPRAY] 1 spray INHALATION DAILY PRN PRN 11/17/19 Temazepam 15 mg PO QHS PRN PRN 11/17/19 Gabapentin [Neurontin] 200 mg PO DAILY 01/04/20 Magnesium Oxide 400 mg PO DAILY 01/04/20 Polyethylene Glycol 3350 [Miralax] 17 gm PO DAILY 01/04/20 Amiodarone HCl 200 mg PO DAILY 01/20/20 Furosemide 40 mg PO DAILY@1500 01/20/20 Insulin Glargine [Lantus SoloStar Pen] 10 units SUBCUT QHS 01/20/20 Metoprolol Tartrate [Lopressor (beta ronen)] 100 mg PO BID 01/20/20 Pantoprazole Sodium [Protonix] 40 mg PO BID 01/20/20 aspirin 81 mg chewable tablet 1 tab PO DAILY@0800 tab 01/20/20 furosemide 40 mg tablet 80 mg PO DAILY@0900 tab 01/20/20 levocetirizine 5 mg tablet 5 mg PO DAILY 01/20/20 losartan 50 mg tablet 50 mg PO DAILY 01/20/20 metformin 1,000 mg tablet 1,000 mg PO BIDCM tab 01/20/20 Insulin Lispro [Humalog KwikPen] See Protocol SUBCUT ACHS insuln.pen 01/26/20 Potassium Chloride [K-Dur] 20 meq PO DAILY tab 01/26/20
[2020-01-26 12:25] LABS: Bedside Glucose 216 mg/dL (70-110)
--- NOTE | 2020-01-26 12:59 | NURSING ---
nurse to nurse report called to Priyanka in TCU. To leave PIV in pt. Pt to go to TCU bed 17.
--- NOTE | 2020-01-26 13:58 | CASEMGMT ---
Per Felisha in sleep lab, pt needs all evening meds prior to d/c and transport to sleep lab. Kathleen PENNINGTON aware, voices understanding. Bakari PENNINGTON CM
--- NOTE | 2020-01-26 15:10 | PCM.DC.SUM ---
<Qian Mckeon - Last Filed: 01/26/20 15:23> Discharge Date and Diagnosis Date of Admission: 01/20/20 Date of Discharge: 01/26/20 - Primary Discharge Diagnosis Acute Problems: 1. Acute combined hypoxic and hypercapnic respiratory failure secondary to acute on chronic CHF with preserved ejection fraction 2. Acute on chronic macrocytic anemia, recent suspected GI bleed 3. Suspected VASILIY 4. Acute kidney injury 5. Recent new onset atrial fibrillation with RVR 6. NSTEMI/CAD-recent CABG in November 2019 at [facility] due to triple vessel disease. 7. Thrombocytosis 8. Type 2 diabetes mellitus 9. Hypertension 10. Hyperlipidemia 11. Morbid obesity - Secondary Discharge Diagnosis Chronic Problems: Chronic Problems (Last Reviewed 01/20/20 @ 09:[address] Ian Rondon MD) Respiratory failure with hypoxia and hypercapnia (Chronic) History of non-ST elevation myocardial infarction (NSTEMI) (Chronic 01/04/20) 11/17/2019, 01/04/2020 Atherosclerosis of coronary artery of [place] heart without angina pectoris (Chronic) H/O coronary artery bypass surgery (Chronic 12/26/19) CABG x 4: ARREDONDO-LAD, Free ISAK from the D1 SVG-OM1, SVG-D1, SVG-RPDA 12/26/19 Chronic diastolic (congestive) heart failure (Chronic) Secondary pulmonary arterial hypertension (Chronic) Essential (primary) hypertension (Chronic) Hypercholesterolemia (Chronic) Anemia (Chronic) Hospital Course and Treatment Imaging Results: Diagnostic Data KUB X-Ray 01/20/20 16:57 IMPRESSION: Enteric tube tip excluded from view in the mid to lower abdomen. Electronically Signed: Shashank Bustamante MD at 17:09 EDT Tel , Service support , Chest X-Ray 01/23/20 07:58 IMPRESSION: Stable left basilar alveolar disease and bilateral pleural effusions. There is no demonstrated pleural abnormality. Electronically Signed: Andreas Thacker at 9:42 EDT Tel , Service support , Dr. Rondon- Cardiology Dr. Sutherland- Pulmonary Operations: None Procedures: None Summary of Care Provided: The patient is a 59 year old M admitted 01/20/2020 due to altered mental status, syncope. 1. Acute combined hypoxic and hypercapnic respiratory failure secondary to acute on chronic CHF with preserved ejection fraction-cardiology and pulmonary medicine following. Recent Echocardiogram demonstrates an EF of 65%. IV Lasix. Strict I&O. Daily weight. Continue supplement oxygen to maintain O2 at or above 90%. BiPAP nightly and with naps. Discharged directly to sleep lab at discharge. 2. Acute on chronic macrocytic anemia, recent suspected GI bleed-hemoglobin currently stable. Trend CBC. Continue aspirin. Eliquis currently on hold. Will reevaluate resuming Eliquis with cardiology as outpatient. Patient to follow-up with Dr. Qiu as outpatient once stable for scope. 3. Suspected VASILIY-Patient has sleep study scheduled 01/26/2020 at 2000. Patient will be discharged directly to sleep lab and following sleep lab will discharge to transitional care unit pending BiPAP set up at home. 4. Acute kidney injury-recent nephrology consult. Renal ultrasound demonstrates 5 mm nonobstructive left intrarenal calculus. Creatinine now normal. Lasix resumed. Spoke with Dr. Loja regarding renal calculus, plan for outpatient follow-up. 5. Recent new onset atrial fibrillation with RVR-Continue amiodarone, metoprolol. Eliquis on hold. 6. NSTEMI/CAD-recent CABG in November 2019 at [facility] due to triple vessel disease. On aspirin, metoprolol, statin, losartan. Cardiology following. 7. Thrombocytosis-unclear etiology. Trend CBC. Recommend outpatient follow-up with hematology. This referral can be arranged by primary care provider. 8. Type 2 diabetes mellitus-hemoglobin A1c 9.1% in September 2019. Continue home metformin regimen 1000 mg twice daily. Lantus 10 units nightly. Recommend repeat hemoglobin A1c by primary care provider. He may require further adjustment of insulin pending repeat A1c. 9. Hypertension-stable, continue current regimen. 10. Hyperlipidemia-continue high-dose statin. 11. Morbid obesity-encouraged diet lifestyle modifications. General: Alert, Cooperative HEENT: Atraumatic, PERRLA, EOMI, Normocephalic Oral: Moist mucosa Neck: Supple, No JVD, Negative Carotid Bruits Lungs: -Air entry diminished bilateral lungs. No crepitation/rhonchi.. Cardiovascular: Regular rate, Normal S1, Normal S2, No murmurs Abdomen: Bowel Sounds Present, Soft, Non Tender, obese Extremities: Capillary Refill Less than 3 Seconds, 2+ bilateral lower leg edema Skin: No rashes, No breakdown Musculoskeletal: No Tenderness to Palpation of Joints or Extremities, Arthritic Changes Neurological: Cranial nerves II-XII grossly intact, Neuro grossly intact Psych/Mental Status: Normal Affect, Appropriate Patient seen and examined prior to discharge. Physical assessment as noted above. Patient is stable for discharge with follow up recommendations as noted above. This patient was seen by ADALID Landeros under the supervision of Dr. Perry. - Physical Exam Vitals/I&O's: Vital Signs Temp Pulse Resp BP Pulse Ox 98.1 F 96 18 116/57 L 94 01/26/20 11:53 01/26/20 11:53 01/26/20 11:53 01/26/20 11:53 01/26/20 11:53 Oxygen Flow Rate (L/min) 2 Oxygen Delivery Method Nasal Cannula Weight: 319 lb 7.197 oz Body Mass Index (BMI) 44.6 Finger Stick Blood Glucose 128 Intake and Output for Last 24 Hours 01/24/20 01/25/20 01/26/20 23:59 23:59 23:59 Intake Total 1124.25 / 1364.25 1140 / 1140 1080 / 1080 Output Total 2075 / 2425 2024 / 2024 350 / 350 Balance -950.75 / -1060.75 -885 / -885 730 / 730 Microbiology Past 72 Hours 01/20/20 16:45 Blood Culture (Wb) #2 - Anticubital Right Blood Culture - Final No growth in 5 days. 01/20/20 16:20 Blood Culture (Wb) - Anticubital Right Blood Culture - Final No growth in 5 days. Laboratory Results 01/25/20 16:42: POC Glucose 259 H 01/25/20 21:05: POC Glucose 262 H 01/26/20 06:25: WBC 7.5, RBC 3.32 L, Hgb 9.2 L, Hct 30.9 L, MCV 93.1, MCH 27.7, MCHC 29.8 L, RDW Std Deviation 49.2 H, RDW Coeff of [place] 14.6, Plt Count 488 H, MPV 10.7, Immature Gran % (Auto) 0.300, Neut % (Auto) 73.6 H, Lymph % (Auto) 14.2 L, [place] % (Auto) 8.0, Eos % (Auto) 3.1, Baso % (Auto) 0.8, Absolute Neuts (auto) 5.5, Absolute Lymphs (auto) 1.06, Nucleated RBC % 0 01/26/20 06:25: Sodium 139, Potassium 3.8, Chloride 100, Carbon Dioxide 37.0 H, Anion Gap 2 L, BUN 19 H, Creatinine 1.17, Estim Creat Clear Calc 72.77, Est GFR (MDRD) Af Amer 81, Est GFR (MDRD) Non-Af 67, BUN/Creatinine Ratio 16.2, Glucose 229 H, Calcium 8.2 L 01/26/20 06:50: POC Glucose 206 H 01/26/20 11:19: POC Glucose 216 H Current Medications Acetaminophen (Tylenol) 650 mg PO Q4H PRN PRN PRN Reason: Pain or Fever Last Admin: 01/26/20 11:57 Dose: 650 mg Documented by: Albuterol/Ipratropium (Duoneb) 3 ml INHALATION Q4H.RT [facility] Last Admin: 01/26/20 11:09 Dose: 3 ml Documented by: Amiodarone HCl (Cordarone) 200 mg PO DAILY [facility] Last Admin: 01/26/20 09:01 Dose: 200 mg Documented by: Aspirin (Aspirin, Baby) 81 mg PO DAILY [facility] Last Admin: 01/26/20 09:01 Dose: 81 mg Documented by: Atorvastatin Calcium (Lipitor) 80 mg PO QHS [facility] Last Admin: 01/25/20 21:08 Dose: 80 mg Documented by: Dextrose (D50w Syringe) 0 gm IV X1 PRN; Protocol PRN Reason: Hypoglycemia Furosemide (Lasix) 80 mg IV BID@1000,1800 [facility] Last Admin: 01/26/20 11:03 Dose: 80 mg Documented by: Gabapentin (Neurontin) 200 mg PO DAILY [facility] Last Admin: 01/26/20 09:02 Dose: 200 mg Documented by: Glucagon () 1 mg IM .X1 PRN PRN Reason: Hypoglycemia Guaifenesin (Mucinex) 1,200 mg PO BID [facility] Last Admin: 01/26/20 11:03 Dose: 1,200 mg Documented by: Sodium Chloride () 250 mls @ 15 mls/hr IV .[id number] PRN PRN Reason: Saline Flush Last Infusion: 01/26/20 10:35 Dose: Infused Documented by: Sodium Chloride () 250 mls @ 15 mls/hr IV .[id number] PRN PRN Reason: Additional IVPB Infusion Insulin Glargine (Lantus ([facility])) [facility] Last Admin: 01/25/20 21:07 Dose: 10 u Documented by: Insulin Human Lispro (Humalog Kwikpen ([facility])) 0 unit SC [facility]; Protocol Last Admin: 01/26/20 11:51 Dose: 4 units Documented by: Loratadine (Claritin) 5 mg PO DAILY [facility] Last Admin: 01/26/20 09:01 Dose: 5 mg Documented by: Metoprolol Tartrate (Lopressor (Beta Chidi)) 50 mg PO BID [facility] Last Admin: 01/26/20 09:02 Dose: 50 mg Documented by: Pantoprazole Sodium (Protonix) 40 mg PO BID [facility] Last Admin: 01/26/20 09:02 Dose: 40 mg Documented by: Polyethylene Glycol (Miralax) 17 gm PO DAILY PRN PRN PRN Reason: CONSTIPATION Potassium Chloride (K[facility]Dur) [facility] Last Admin: 01/26/20 09:01 Dose: 20 meq Documented by: Senna/Docusate Sodium (Senokot-S, Leela-Colace) 2 tablet PO BID [facility] Last Admin: 01/26/20 09:03 Dose: 2 tablet Documented by: Sodium Chloride () 10 - 40 ml IV UD PRN PRN Reason: SALINE FLUSH Last Admin: 01/25/20 18:33 Dose: 10 ml Documented by: Discharge Diet: Low fat/ Low Cholesterol Discharge Activity: Return to Normal Activity Call your doctor if you observe: Shortness of breath, Dizziness, Fainting spells, Chest pain Home Medications: Medications to take at Discharge Atorvastatin Calcium [Lipitor] 80 mg PO QHS 11/17/19 Ipratropium [place] 0.06% [ATROVENT NASAL SPRAY] 1 spray INHALATION DAILY PRN PRN 11/17/19 Temazepam 15 mg PO QHS PRN PRN 11/17/19 Gabapentin [Neurontin] 200 mg PO DAILY 01/04/20 Magnesium Oxide 400 mg PO DAILY 01/04/20 Polyethylene Glycol 3350 [Miralax] 17 gm PO DAILY 01/04/20 Amiodarone HCl 200 mg PO DAILY 01/20/20 Furosemide 40 mg PO DAILY@1500 01/20/20 Insulin Glargine [Lantus SoloStar Pen] 10 units SUBCUT QHS 01/20/20 Metoprolol Tartrate [Lopressor (beta chidi)] 100 mg PO BID 01/20/20 Pantoprazole Sodium [Protonix] 40 mg PO BID 01/20/20 aspirin 81 mg chewable tablet 1 tab PO DAILY@0800 tab 01/20/20 furosemide 40 mg tablet 80 mg PO DAILY@0900 tab 01/20/20 levocetirizine 5 mg tablet 5 mg PO DAILY 01/20/20 losartan 50 mg tablet 50 mg PO DAILY 01/20/20 metformin 1,000 mg tablet 1,000 mg PO BIDCM tab 01/20/20 Insulin Lispro [Humalog KwikPen] See Protocol SUBCUT ACHS insuln.pen 01/26/20 Potassium Chloride [K-Dur] 20 meq PO DAILY tab 01/26/20 Primary Care Physician: Josué Rodriguez MD [Primary Care Provider] - Please follow up with your Primary Care Physician in: 1 Week Please Follow Up With: Ian Rondon MD When: 1-2 Weeks Please Follow Up With: Sleep Lab When: As scheduled 01/26/2020 Please Follow Up With: Kika Mendoza NP-C When: 02/09/2020 Please Follow Up With: Olegario Qiu MD When: 2 Weeks, call for follow up regarding outpatient EGD/colonoscopy. Please Follow Up With: Morro Loja MD When: 1 Week, call to establish for follow up 5 mm left kidney stone Disposition: Home Minutes spent on discharge:: 35 Patient Condition:: Stable Medical Necessity - Tobacco Use Smoking Status: Smoker, status unknown Tobacco Use: Non-smoker Meaningful Use Info Meaningful Use Diagnoses (Choose all that apply): CHF - CHF KARISSA/ARB ordered at discharge?: Yes Documented LVEF (%): 65 <Mark Perry - Last Filed: 01/26/20 16:12> Discharge Date and Diagnosis - Secondary Discharge Diagnosis Chronic Problems: Chronic Problems (Last Reviewed 01/20/20 @ 09:[address] Ian Rondon MD) Respiratory failure with hypoxia and hypercapnia (Chronic) History of non-ST elevation myocardial infarction (NSTEMI) (Chronic 01/04/20) 11/17/2019, 01/04/2020 Atherosclerosis of coronary artery of [place] heart without angina pectoris (Chronic) H/O coronary artery bypass surgery (Chronic 12/26/19) CABG x 4: ARREDONDO-LAD, Free ISAK from the D1 SVG-OM1, SVG-D1, SVG-RPDA 12/26/19 Chronic diastolic (congestive) heart failure (Chronic) Secondary pulmonary arterial hypertension (Chronic) Essential (primary) hypertension (Chronic) Hypercholesterolemia (Chronic) Anemia (Chronic) Hospital Course and Treatment Summary of Care Provided: This patient was seen in conjunction with KELP GATHERER, Qian. I have independently interviewed and examined the patient and reviewed pertinent history, examination findings, laboratory and plan of management. I have reviewed the note and agree with the documented findings with the few additional points. In brief, patient is admitted for acute combined hypoxic and hypercarbic respiratory failure secondary to acute on chronic diastolic heart failure/HFpEF/undiagnosed obstructive sleep apnea/obesity hypoventilation syndrome: Patient was admitted in ICU, intubated. Patient was also in shock most probably cardiogenic shock, might be adrenal insufficiency/medication effect and required diuresis with pressors in the ICU. Patient also had acute kidney injury most likely prerenal/cardiorenal syndrome from heart failure. Has coronary artery disease with recent CABG, A. fib. Patient also had recent acute blood loss anemia most probably from GI side although he did not had endoscopy secondary to hemodynamic instability. Follow-up with GI/surgeon in 1 to 2 weeks. Eliquis was discontinued by cardiology as he required 3 units of PRBC during recent admission about 2 weeks ago. Other chronic comorbidities include diabetes mellitus type 2, chronic iron deficiency anemia hypertension, morbid obesity: Medication optimization was done. Patient was seen by professor of apologetics, para operator and welding setter. There is plan for patient to be discharged directly in the evening to the sleep lab for a split-night sleep study and then admitted to TCU on BiPAP tomorrow morning. Discharge medication reconciliation done. Discharge follow-up instructions completed. Discharge process discussed with the patient and all questions were answered to patient's satisfaction. Total time spent, exact 35 minutes on discharge meds reconciliation, examination, coordination of care with nurses and ancillary staff, review of imaging and blood test and discussion with the patient on follow-up instructions. I have discussed my assessment with KELP GATHERERQian and orders have been reviewed. [] Objective: Seen and examined along with para operator. Blood pressure is controlled. On Lasix 80 mg twice daily. On exam General: Alert, Cooperative, Morbid obesity HEENT: Atraumatic, PERRLA, EOMI, Normocephalic Oral: Oral mucosa dry. Neck: Supple, No JVD, Negative Carotid Bruits Lungs: -Air entry diminished bilateral lungs. No crepitation/rhonchi. On 2 L of oxygen through nasal cannula Cardiovascular: Regular rate, Normal S1, Normal S2, No murmurs, quality assurance monitor final shows Frequent PVCs. Sinus rhythm Abdomen: Bowel Sounds Present, Soft, Non Tender Extremities: Capillary Refill Less than 3 Seconds, improvement of bilateral lower legs edema Skin: No rashes, No breakdown Musculoskeletal: No Tenderness to Palpation of Joints or Extremities, Arthritic Changes Neurological: Cranial nerves II-XII grossly intact, Neuro grossly intact Psych/Mental Status: Normal Affect, Appropriate - Physical Exam Vitals/I&O's: Vital Signs Temp Pulse Resp BP Pulse Ox 98.1 F 60 16 116/57 L 94 01/26/20 11:53 01/26/20 15:32 01/26/20 15:32 01/26/20 11:53 01/26/20 11:53 Oxygen Flow Rate (L/min) 2 Oxygen Delivery Method Nasal Cannula Weight: 319 lb 7.197 oz Body Mass Index (BMI) 44.6 Finger Stick Blood Glucose 128 Intake and Output for Last 24 Hours 01/24/20 01/25/20 01/26/20 23:59 23:59 23:59 Intake Total 1124.25 / 1364.25 1140 / 1140 1080 / 1080 Output Total 2074 / 2425 2024 350 / 350 Balance -950.75 / -1060.75 -885 / -885 730 / 730 Microbiology Past 72 Hours 01/20/20 16:45 Blood Culture (Wb) #2 - Anticubital Right Blood Culture - Final No growth in 5 days. 01/20/20 16:20 Blood Culture (Wb) - Anticubital Right Blood Culture - Final No growth in 5 days. Laboratory Results 01/25/20 16:42: POC Glucose 259 H 01/25/20 21:05: POC Glucose 262 H 01/26/20 06:25: WBC 7.5, RBC 3.32 L, Hgb 9.2 L, Hct 30.9 L, MCV 93.1, MCH 27.7, MCHC 29.8 L, RDW Std Deviation 49.2 H, RDW Coeff of [place] 14.6, Plt Count 488 H, MPV 10.7, Immature Gran % (Auto) 0.300, Neut % (Auto) 73.6 H, Lymph % (Auto) 14.2 L, [place] % (Auto) 8.0, Eos % (Auto) 3.1, Baso % (Auto) 0.8, Absolute Neuts (auto) 5.5, Absolute Lymphs (auto) 1.06, Nucleated RBC % 0 01/26/20 06:25: Sodium 139, Potassium 3.8, Chloride 100, Carbon Dioxide 37.0 H, Anion Gap 2 L, BUN 19 H, Creatinine 1.17, Estim Creat Clear Calc 72.77, Est GFR (MDRD) Af Amer 81, Est GFR (MDRD) Non-Af 67, BUN/Creatinine Ratio 16.2, Glucose 229 H, Calcium 8.2 L 01/26/20 06:50: POC Glucose 206 H 01/26/20 11:19: POC Glucose 216 H Current Medications Acetaminophen (Tylenol) 650 mg PO Q4H PRN PRN PRN Reason: Pain or Fever Last Admin: 01/26/20 11:57 Dose: 650 mg Documented by: Albuterol/Ipratropium (Duoneb) 3 ml INHALATION Q4H.RT [facility] Last Admin: 01/26/20 15:32 Dose: 3 ml Documented by: Amiodarone HCl (Cordarone) 200 mg PO DAILY [facility] Last Admin: 01/26/20 09:01 Dose: 200 mg Documented by: Aspirin (Aspirin, Baby) 81 mg PO DAILY [facility] Last Admin: 01/26/20 09:01 Dose: 81 mg Documented by: Atorvastatin Calcium (Lipitor) 80 mg PO QHS [facility] Last Admin: 01/25/20 21:08 Dose: 80 mg Documented by: Dextrose (D50w Syringe) 0 gm IV X1 PRN; Protocol PRN Reason: Hypoglycemia Furosemide (Lasix) 80 mg IV BID@1000,1800 [facility] Last Admin: 01/26/20 11:03 Dose: 80 mg Documented by: Gabapentin (Neurontin) 200 mg PO DAILY [facility] Last Admin: 01/26/20 09:02 Dose: 200 mg Documented by: Glucagon () 1 mg IM .X1 PRN PRN Reason: Hypoglycemia Guaifenesin (Mucinex) 1,200 mg PO BID [facility] Last Admin: 01/26/20 11:03 Dose: 1,200 mg Documented by: Sodium Chloride () 250 mls @ 15 mls/hr IV .[id number] PRN PRN Reason: Saline Flush Last Infusion: 01/26/20 10:35 Dose: Infused Documented by: Sodium Chloride () 250 mls @ 15 mls/hr IV .[id number] PRN PRN Reason: Additional IVPB Infusion Insulin Glargine (Lantus ([facility])) 10 units SC QHS [facility] Last Admin: 01/25/20 21:07 Dose: 10 u Documented by: Insulin Human Lispro (Humalog Kwikpen ([facility])) 0 unit SC ACHS [facility]; Protocol Last Admin: 01/26/20 11:51 Dose: 4 units Documented by: Loratadine (Claritin) 5 mg PO DAILY [facility] Last Admin: 01/26/20 09:01 Dose: 5 mg Documented by: Metoprolol Tartrate (Lopressor (Beta Chidi)) 50 mg PO BID [facility] Last Admin: 01/26/20 09:02 Dose: 50 mg Documented by: Pantoprazole Sodium (Protonix) 40 mg PO BID [facility] Last Admin: 01/26/20 09:02 Dose: 40 mg Documented by: Polyethylene Glycol (Miralax) 17 gm PO DAILY PRN PRN PRN Reason: CONSTIPATION Potassium Chloride (K-Dur) [facility] Last Admin: 01/26/20 09:01 Dose: 20 meq Documented by: Senna/Docusate Sodium (Senokot-S, Leela-Colace) 2 tablet PO BID [facility] Last Admin: 01/26/20 09:03 Dose: 2 tablet Documented by: Sodium Chloride () 10 - 40 ml IV UD PRN PRN Reason: SALINE FLUSH Last Admin: 01/25/20 18:33 Dose: 10 ml Documented by: Inpatient E&M: [id number] Disch Hosp
[2020-01-26 16:36] LABS: Bedside Glucose 211 mg/dL (70-110)
[2020-01-26] MEDS: 0.9% Saline Lock 10 ML Syringe IV (17:03)
[2020-01-26] MEDS: Atorvastatin Calcium 80 MG Tablet PO (18:26)
--- NOTE | 2020-01-27 08:52 | CASEMGMT ---
[facility] updated on pt transfer to TCU this am after OP sleep study last pm, voices understanding. Bakari PENNINGTON CM
== END 2020-01-26 19:55 | disposition skilled nursing facility (03) | DRG 280 ==
LOC: ED 16:40 → ICU 18:22 → PCU 01-25 14:32
PROVIDERS: Family Medicine; Internal Medicine Critical Care Medicine; Admitting Provider Internal Medicine; Emergency Provider Emergency Medicine; PCP Family Medicine; Visit Provider Internal Medicine
DX: I11.0 Hypertensive heart disease with heart failure (principal); I21.4 Non-ST elevation (NSTEMI) myocardial infarction; J96.21 Acute and chronic respiratory failure with hypoxia; J96.22 Acute and chronic respiratory failure with hypercapnia; N17.0 Acute kidney failure with tubular necrosis; I22.2 Subsequent non-ST elevation (NSTEMI) myocardial infarction; I21.9 Acute myocardial infarction, unspecified; R57.0 Cardiogenic shock; E87.2 Acidosis; Z68.41 Body mass index [BMI] 40.0-44.9, adult; E66.2 Morbid (severe) obesity with alveolar hypoventilation; D62 Acute posthemorrhagic anemia; I47.1 Supraventricular tachycardia; I50.33 Acute on chronic diastolic (congestive) heart failure; I35.0 Nonrheumatic aortic (valve) stenosis; I49.3 Ventricular premature depolarization; I48.91 Unspecified atrial fibrillation; E87.5 Hyperkalemia; I25.10 Atherosclerotic heart disease of native coronary artery without angina pectoris; I27.21 Secondary pulmonary arterial hypertension; D50.9 Iron deficiency anemia, unspecified; E78.00 Pure hypercholesterolemia, unspecified; Z79.01 Long term (current) use of anticoagulants; Z79.4 Long term (current) use of insulin; Z79.82 Long term (current) use of aspirin; Z79.899 Other long term (current) drug therapy; Z95.1 Presence of aortocoronary bypass graft
CPT/HCPCS: 31500; 31720; 36415; 36600; 71045; 74018; 80048; 80053; 81001; 82803; 82962; 83605; 83735; 83880; 84100; 84484; 85025; 87040; 87635; 93005; 94002; 94003; 94640; 94660; 96365; 96366; 96375; 96376; 97110; 97116; 97162; 97163; 97166; 97530; 97535; 97802; 97803; 99251; 99285; G2023; J7030; J7040; J7050; A4216; C1751; G0463; J1940; U0002

== ENCOUNTER → 2020-01-26 20:39 | Outpatient (CLI) | payer OTHER, SELFPAY ==
[2020-01-13 13:44] VITALS: BMI 45.1
[2020-01-21 10:05] VITALS: BMI 44.6
== END ==
PROVIDERS: PCP Family Medicine; Visit Provider Internal Medicine Critical Care Medicine
DX: G47.10 Hypersomnia, unspecified (principal)
CPT/HCPCS: 95811

== ENCOUNTER 2020-01-27 05:54 | Inpatient (IN) | payer OTHER, SELFPAY ==
[2020-01-21 10:05] VITALS: BMI 44.6
[2020-01-27 06:06] VITALS: BP 117/59; PULSE 70; PULSE 82; RESP 16; RESP 18; TEMP 37.4; O2SAT 96; O2SAT 97; BMI 43.2
--- NOTE | 2020-01-27 06:14 | SLEEP ---
Patient taken to TCU 17 by w/c after sleep study, on 2LPM. Reported off to nightshift RN as well as daytime RT. Patient tolerated sleep study well and knows he will be set up on bipap for home use. He also required 2LPM bleed in to bipap during his study.
[2020-01-27 06:40] LABS: Bedside Glucose 270 mg/dL (70-110)
[2020-01-27 07:24] LABS: Absolute Lymphocyte Count 0.93 X10^3/uL (0.83-4.51); Absolute Neutrophil Count 5.4 X10^3/uL (2.0-7.7); Basophil# 0.05 X10^3/uL; Basophil% 0.7 % (0-1); Eosinophil# 0.21 X10^3/uL; Eosinophils% 2.9 % (0-5); Hemoglobin 9.6 g/dL (13.0-16.5); Lymphocyte # 0.93 X10^3/ul (4.0); Lymphocyte % 12.9 % (19-41); Mean Corpuscular Hgb 27.5 pg (27.0-32.0); Mean Corpuscular Volume 91.7 fL (80-94); Mean Platelet Vol. 10.5 fl (6.2-12.0); Monocyte# 0.62 X10^3/uL; Monocyte% 8.6 % (0-10); NRBC Flagged by Analyzer 0 % (0-5); Neutrophil # 5.36 X10^3/uL (2.7-7.7); Neutrophil % 74.6 % (47-70); Platelet Count 468 K/mm3 (150-450); RBC Distribution Width CV 14.4 % (11.6-14.6); RBC Distribution Width SD 48.2 fl (35.1-43.9); Red Blood Count 3.49 M/mm3 (4.6-6.2); White Blood Count 7.2 K/mm3 (4.4-11.0)
[2020-01-27 07:39] VITALS: BMI 43.3
[2020-01-27 07:47] LABS: Anion Gap 2 (5-15); BUN 16 mg/dL (7-18); Calcium,Total 8.4 mg/dL (8.5-10.1); Chloride 98 mmol/L (98-107); Creatinine, Serum 1.07 mg/dL (0.70-1.30); EST Glomerular Filtration Rate 75 mL/min (>60); Est Glom Filt Rate - Afr Amer 90 mL/min (>60); Estimated Creatinine Clearance 79.57 ml/min; Glucose 253 mg/dL (74-106); Sodium Level 137 mmol/L (136-145)
--- NOTE | 2020-01-27 08:26 | HP.PCM_ITS ---
Problem List (1) Debility Status: Acute (2) Unresponsiveness Status: Acute (3) Acute respiratory failure Status: Acute (4) Obstructive sleep apnea Status: Chronic (5) Acute kidney injury Status: Acute (6) Acute on chronic anemia Status: Chronic (7) Atrial fibrillation with rapid ventricular response Status: Chronic (8) Pulmonary edema Status: Acute (9) Coronary artery disease Status: Chronic (10) Acute on chronic diastolic congestive heart failure Status: Acute (11) Pulmonary hypertension Status: Chronic (12) Hypertension Status: Chronic (13) Hyperlipidemia Status: Chronic (14) Neuropathic pain Status: Chronic (15) Diabetes mellitus Status: Chronic (16) GERD (gastroesophageal reflux disease) Status: Chronic (17) Allergic rhinitis Status: Chronic (18) Body mass index (BMI) 40.0-44.9, adult Status: Chronic History of Present Illness Date of Admission: 01/27/20 Chief Complaint: Here for rehabilitation, strengthening, prior to discharge home with . 01/20/2020 The patient is a 59 year old Male with below past medical history presented to [facility] Emergency Department with unresponsiveness. 01/20/2020 KUB enteric tube tip, excluded from view. 01/20/2020 EKG atrial flutter with variable A-V block with premature ventricular or aberrantly conducted complexes, left posterior fascicular block, inferior infarct, age undetermined. November, CABG x 4. December, Admitted for pulmonary edema, heart cath negative for stenosis, BiPAP intolerable. Severe respiratory distress. Increasing lower extremity edema. Shortness of breath, unresponsive, significant hypoxia, hypercapnia. CPAP applied. Patient emergently intubated, right IJ line placed. Chest X-ray shows florid pulmonary edema, left lower lobe infiltrate. Broad intravenous antibiotics given. 01/20/2020 Admit to ICU. Levophed for hypotension. Hold Lasix, Hold Losartan for hypotension. 01/21/2020 Dr. Sutherland recommended diuresis. Recommended sleep study. 01/21/2020 Dr. Whitley recommended holding ACEI, ARB. Ok to restart diuretics if blood pressure tolerating. 01/23/2020 Dr. Rondon recommended aggressive diuresis. Needs BiPAP or CPAP. Lasix IV for diuresis. Sleep study on discharge to facilitate BiPAP/CPAP. Eliquis held due to acute on chronic macrocytic anemia. Acute kidney injury resolved. A1c 9.1%, continue to adjust diabetes medications to reach goal A1c < 7.0%. 01/26/2020 Sleep study. 01/27/2020 Admit to TCU with debility, here for rehabilitation, strengthening, prior to discharge home with . Past Medical History Past Medical History (Chronic Problems): Chronic Problems (Last Reviewed 01/20/20 @ 09:[address] Ian Rondon MD) Obstructive sleep apnea (Chronic) Acute on chronic anemia (Chronic) Atrial fibrillation with rapid ventricular response (Chronic) Coronary artery disease (Chronic) Pulmonary hypertension (Chronic) Hypertension (Chronic) Hyperlipidemia (Chronic) Neuropathic pain (Chronic) Diabetes mellitus (Chronic) GERD (gastroesophageal reflux disease) (Chronic) Allergic rhinitis (Chronic) Body mass index (BMI) 40.0-44.9, adult (Chronic) Respiratory failure with hypoxia and hypercapnia (Chronic) History of non-ST elevation myocardial infarction (NSTEMI) (Chronic 01/04/20) 11/17/2019, 01/04/2020 Atherosclerosis of coronary artery of [place] heart without angina pectoris (Chronic) H/O coronary artery bypass surgery (Chronic 12/26/19) CABG x 4: ARREDONDO-LAD, Free ISAK from the D1 SVG-OM1, SVG-D1, SVG-RPDA 12/26/19 Chronic diastolic (congestive) heart failure (Chronic) Secondary pulmonary arterial hypertension (Chronic) Essential (primary) hypertension (Chronic) Hypercholesterolemia (Chronic) Anemia (Chronic) Medical History: Medical History (Last Reviewed 01/20/20 @ 09:[address] Ian Rondon MD) Respiratory failure with hypoxia and hypercapnia (Chronic) J96.91, J96.92 History of non-ST elevation myocardial infarction (NSTEMI) (Chronic) Onset Date: 01/04/20 I25.2 11/17/2019, 01/04/2020 Atherosclerosis of coronary artery of [place] heart without angina pectoris (Chronic) I25.10 Chronic diastolic (congestive) heart failure (Chronic) I50.32 Secondary pulmonary arterial hypertension (Chronic) I27.21 Essential (primary) hypertension (Chronic) I10 Hypercholesterolemia (Chronic) E78.00 Anemia (Chronic) D64.9 Thrombocytosis (Acute) D47.3 Nonrheumatic aortic (valve) stenosis I35.0 mild Obesity E66.9 Type 2 diabetes mellitus E11.9 Acute exacerbation of CHF (congestive heart failure) (Resolved) I50.9 Acute respiratory failure with hypoxia Onset Date: 11/17/19 J96.01 Atrial fibrillation with rapid ventricular response Onset Date: 01/04/20 I48.91 Elevated troponin Onset Date: 11/17/19 R79.89 Atrial flutter with rapid ventricular response I48.92 Arteriosclerotic cardiovascular disease (Inactive) I25.10 Triple vessel coronary artery disease (Inactive) I25.10 Allergies No Known Allergies Allergy (Verified 01/20/20 08:35) Home Medications: Ambulatory Orders Medication Instructions Recorded Atorvastatin Calcium [Lipitor] 80 mg PO QHS 11/17/19 Ipratropium [place] 0.06% 1 spray INHALATION DAILY PRN PRN 11/17/19 [ATROVENT NASAL SPRAY] Temazepam 15 mg PO QHS PRN PRN 11/17/19 Gabapentin [Neurontin] 200 mg PO DAILY 01/04/20 Magnesium Oxide 400 mg PO DAILY 01/04/20 Polyethylene Glycol 3350 [Miralax] 17 gm PO DAILY 01/04/20 Amiodarone HCl 200 mg PO DAILY 01/20/20 Furosemide 40 mg PO DAILY@1500 01/20/20 Insulin Glargine [Lantus SoloStar 10 units SUBCUT QHS 01/20/20 Pen] Metoprolol Tartrate [Lopressor 100 mg PO BID 01/20/20 (beta chidi)] Pantoprazole Sodium [Protonix] 40 mg PO BID 01/20/20 aspirin 81 mg chewable tablet 1 tab PO DAILY@0800 tab 01/20/20 furosemide 40 mg tablet 80 mg PO DAILY@0900 tab 01/20/20 levocetirizine 5 mg tablet 5 mg PO DAILY 01/20/20 losartan 50 mg tablet 50 mg PO DAILY 01/20/20 metformin 1,000 mg tablet 1,000 mg PO BIDCM tab 01/20/20 Insulin Lispro [Humalog KwikPen] See Protocol SUBCUT ACHS 01/27/20 Potassium Chloride [K-Dur] 20 meq PO DAILY 01/27/20 Surgical History: Surgical History (Last Reviewed 01/20/20 @ 09:[address] Ian Rondon MD) H/O coronary artery bypass surgery (Chronic) Onset Date: 12/26/19 Z95.1 CABG x 4: ARREDONDO-LAD, Free ISAK from the D1 SVG-OM1, SVG-D1, SVG-RPDA 12/26/19 History of left heart catheterization Onset Date: 01/04/20 Z98.890 11/18/2019, 01/04/20 Surgical History: coronary bypass surgery - x 4. Psychiatric History: No pertinent psych hx Lives: Spouse/ Significant Other Smoking Status: Never smoker Tobacco Use: Non-smoker Alcohol: None Drugs: None - *Family History Maternal Family History: Family History (Last Reviewed 01/20/20 @ 09:[address] Ian Rondon MD) Mother Hypertension Father Hypertension Heart disease History Items: Cancer - breast cancer, Hypertension Paternal Family History: Family History (Last Reviewed 01/20/20 @ 09:[address] Ian Rondon MD) Mother Hypertension Father Hypertension Heart disease History Items: Heart Disease, Hypertension Review of Systems Constitutional: Denies: Chills, Fever, Weight Change HEENT: Denies: Head Aches, Sinus Congestion, Sinus Drainage Cardiovascular: Denies: Chest Pain, Palpitations Respiratory: Reports: Shortness of Breath. Denies: Cough, Shortness of breath at rest, Sputum production Gastrointestinal: Denies: Abdominal Pain, Nausea, Vomiting Genitourinary: Denies: Dysuria Musculoskeletal: Denies: Joint Pain, Joint Tenderness Skin: Denies: Rash, Wounds Neurological: Denies: Numbness, Tingling, Focal weakness Psychiatric: Denies: Anxiety, Depression, Homicidal Ideations, Suicidal Ideations Hematologic/ Lymphatic: Denies: Easy Bruising, Easy Bleeding VTE Information - Inpt Only VTE Present on Admission: No VTE Mechan Device Prophylaxis: Knee High TESS Hose VTE Pharm Prophylaxis ordered?: No Reason prophylaxis not ordered:: Treatment Not Indicated Patient Problems: Active and Suspected Problems (Last Reviewed 01/20/20 @ 09:[address] Ian Rondon MD) Debility (Acute) Unresponsiveness (Acute) Acute respiratory failure (Acute) Acute kidney injury (Acute) Pulmonary edema (Acute) Acute on chronic diastolic congestive heart failure (Acute) - Physical Exam Vitals/I&O's: Vital Signs Temp Pulse Resp BP Pulse Ox 99.4 F H 70 16 117/59 L 97 01/27/20 06:06 01/27/20 06:06 01/27/20 06:06 01/27/20 06:06 01/27/20 06:06 Oxygen Flow Rate (L/min) 2 Oxygen Delivery Method Nasal Cannula Weight: 144.674 kg Body Mass Index (BMI) 43.2 Finger Stick Blood Glucose 128 General: Alert, Oriented x3, Cooperative HEENT: Atraumatic, PERRLA, EOMI, Normocephalic Neck: Supple, No JVD, Negative Carotid Bruits Lungs: Diminished - bilateral 1/2 lung roe. Cardiovascular: Regular rate, No murmurs Abdomen: Bowel Sounds Present, Soft, Non Tender Extremities: No edema, Capillary Refill Less than 3 Seconds Skin: No rashes, No breakdown Musculoskeletal: No Tenderness to Palpation of Joints or Extremities Neurological: Cranial nerves II-XII grossly intact Psych/Mental Status: Normal Affect, Appropriate Laboratory Results 01/27/20 06:38: POC Glucose 270 H 01/27/20 07:13: WBC 7.2, RBC 3.49 L, Hgb 9.6 L, Hct 32.0 L, MCV 91.7, MCH 27.5, MCHC 30.0 L, RDW Std Deviation 48.2 H, RDW Coeff of [place] 14.4, Plt Count 468 H, MPV 10.5, Immature Gran % (Auto) 0.300, Neut % (Auto) 74.6 H, Lymph % (Auto) 12.9 L, [place] % (Auto) 8.6, Eos % (Auto) 2.9, Baso % (Auto) 0.7, Absolute Neuts (auto) 5.4, Absolute Lymphs (auto) 0.93, Nucleated RBC % 0 01/27/20 07:13: Sodium 137, Potassium 4.0, Chloride 98, Carbon Dioxide 37.0 H, Anion Gap 2 L, BUN 16, Creatinine 1.07, Estim Creat Clear Calc 79.57, Est GFR (MDRD) Af Amer 90, Est GFR (MDRD) Non-Af 75, BUN/Creatinine Ratio 15.0, Glucose 253 H, Calcium 8.4 L Current Medications Amiodarone HCl (Cordarone) 200 mg PO DAILY [facility] Aspirin (Aspirin, Baby) 81 mg PO DAILY@0800 [facility] Atorvastatin Calcium (Lipitor) 80 mg PO QHS [facility] Calamine/Phenol (Calmoseptine Ointment) 1 applic TOPICAL 0600,2200 [facility]; Protocol Dextrose (D50w Syringe) 0 gm IV X1 PRN; Protocol PRN Reason: Hypoglycemia Furosemide (Lasix) 40 mg PO DAILY@1500 [facility] Furosemide (Lasix) 80 mg PO DAILY@0900 [facility] Gabapentin (Neurontin) 200 mg PO DAILY [facility] Glucagon () 1 mg IM .X1 PRN PRN Reason: Hypoglycemia Insulin Glargine (Lantus (Bkc)) 10 units SC QHS [facility] Insulin Human Lispro (Humalog Kwikpen (Bkc)) 0 unit SC ACHS [facility]; Protocol Ipratropium [place] (Atrovent Nasal [place] (G)) 1 spray NASAL DAILY PRN PRN PRN Reason: ALLERGIES Loratadine (Claritin) 5 mg PO DAILY [facility] Losartan Potassium (Cozaar) 50 mg PO DAILY [facility] Magnesium Oxide (Mag-Ox 400) 400 mg PO DAILY [facility] Metformin HCl (Glucophage) 1,000 mg PO BIDCM [facility] Metoprolol Tartrate (Lopressor (Beta Chidi)) 100 mg PO BID [facility] Multi-Ingredient Cream (Eucerin) 1 applic TOPICAL QHS [facility]; Protocol Nystatin (Mycostatin Powder) 1 applic TOPICAL 0600,2200 [facility]; Protocol Pantoprazole Sodium (Protonix) 40 mg PO BID [facility] Polyethylene Glycol (Miralax) 17 gm PO DAILY [facility] Potassium Chloride (K-Dur) 20 meq PO DAILY [facility] Sodium Chloride () 10 - 40 ml IV UD PRN PRN Reason: SALINE FLUSH Temazepam (Restoril) 15 mg PO QHS PRN PRN PRN Reason: INSOMNIA Tuberculin PPD (Tubersol, Aplisol, Ppd) 5 tu ID X1 ONE Stop: 01/28/20 10:01 Tuberculin PPD (Tubersol, Aplisol, Ppd) 5 tu ID X1 ONE Stop: 02/04/20 10:01 Assessment/Plan All Active Problems (Last Reviewed 01/20/20 @ 09:[address] Ian Rondon MD) Debility (Acute) Unresponsiveness (Acute) Acute respiratory failure (Acute) Acute kidney injury (Acute) Pulmonary edema (Acute) Acute on chronic diastolic congestive heart failure (Acute) Thrombocytosis (Acute) Acute exacerbation of CHF (congestive heart failure) (Resolved) 59 year old male with below past medical history hospitalized for acute respiratory failure requiring intubation secondary to right sided heart failure from undiagnosed obstructive sleep apnea, complicated by acute kidney injury, acute on chronic anemia, admitted to TCU with debility, here for rehabilitation, strengthening, prior to discharge home with . * Debility - PT/OT. * Pain - Tylenol 1000MG Q6H PRN pain (1-10). * Bowel - Miralax 17GM daily, Senna/colace 1 tablet BID, Dulcolax 10MG daily PRN. * Adult immunization - Administer Prevnar 13, Pneumovax 23, Fluzone as appropriate. * DVT prophylaxis - Hold, anemia. * Obstructive sleep apnea - Non invasive positive pressure ventilation when sleeping, napping. He is trying to tolerate CPAP with oxygen. * Atrial Fibrillation - Metoprolol 100MG BID, Amiodarone 200MG daily, Restart Eliquis 5MG BID. * Coronary artery disease status post CABG - Metoprolol 100MG twice daily, Losartan 50MG daily, Restart Eliquis 5MG BID, Aspirin 81MG daily. * Hyperlipidemia - High intensity Atorvastatin 80MG QHS. * Chronic diastolic congestive heart failure - Metoprolol 100MG BID, Losartan 50MG daily, Lasix 80MG IV BID. * Neuropathic pain - Gabapentin 200MG daily. * Diabetes Mellitus II - Metformin 1000MG BID, Lantus 10 units QHS, Glucagon 1MG IM x 1 PRN hypoglycemia. * Allergic Rhinitis - Loratadine 10MG daily, Ipratropium nasal spray 1 spray daily. * Hypomagnesemia - Magnesium Oxide 400MG daily. * Skin irritation - Calmoseptine BID, Eucerin QHS. * Tinea Corporis - Nystatin powder BID. * GERD - Pantoprazole 40MG BID. * Hypokalemia - KCL 20MEQ daily. * Insomnia - Temazepam 15MG QHS PRN, (Beer's list drugs, chronic manager terminal use, consider discontinuation with primary care provider).
[2020-01-27] MEDS: Insulin Lispro 100 UNIT/ML INSULN.PEN SC (08:46)
[2020-01-27 08:47] VITALS: PULSE 70
[2020-01-27] MEDS: Amiodarone 200 MG Tablet PO (08:47)
[2020-01-27] MEDS: metFORMIN HCl 1,000 MG Tablet 1000 MG PO ×2 (08:47→17:45)
[2020-01-27] MEDS: Gabapentin 100 MG Capsule 200 MG PO (08:47)
[2020-01-27] MEDS: Losartan Potassium 50 MG Tablet PO (08:47)
[2020-01-27] MEDS: Magnesium Oxide 400 MG Tablet PO (08:47)
[2020-01-27] MEDS: Metoprolol Tartrate 100 MG Tablet PO ×2 (08:47→17:46)
[2020-01-27] MEDS: Pantoprazole Sodium 40 MG Tablet PO ×2 (08:48→17:46)
[2020-01-27] MEDS: Furosemide 80 MG Tablet PO (08:48)
[2020-01-27] MEDS: Aspirin 81 MG TAB.CHEW PO (08:48)
[2020-01-27 09:55] VITALS: O2SAT 97
[2020-01-27 11:20] LABS: Bedside Glucose 238 mg/dL (70-110)
--- NOTE | 2020-01-27 12:55 | CASEMGMT ---
Social Work Discussed code status with pt. Pt confirmed full code. MOLST form completed and placed in chart. Niyah Abrams MSW UROLOGIST
--- NOTE | 2020-01-27 12:55 | CASEMGMT ---
Social Work Spoke with sleep lab and pt is set up with sleep machine in room. Will monitor through the weekend, /u Thursday and order new machine for DC home. Pt wearing 2 LPM of O2 continuously currently. Will continue to follow. EDWARD McmillanW
--- NOTE | 2020-01-27 13:17 | SLEEP ---
PT S/U WITH HOME BIPAP UNIT( w 3LPM bleed in)plugged in to RED outlet. HE WAS INSTRUCTED ON MASK USE AND ADJUSTMENT. ALSO INSTRUCTED ON NOT EATING OR DRINKING WHILE USING THE DEVICE D/T ASPIRATION RISK. WILL LIKELY REQUIRE REASSURANCE OR ASSISTANCE BY STAFF HE ACCLIMATES TO WEARING OVER THE WEEKEND. PLAN TO RE-EDUCATE THURSDAY OR PRIOR TO DC. ENCOURAGED USE FOR ALL SLEEP. NOTE LEFT ON COMMUNICATION BOARD IN HIS ROOM, RT AWARE WELL.
[2020-01-27 15:05] VITALS: BP 132/68; PULSE 68; RESP 24; TEMP 36.2; O2SAT 93
[2020-01-27 17:01] LABS: Bedside Glucose 163 mg/dL (70-110)
[2020-01-27] MEDS: Furosemide 100 MG/10 ML Vial 80 MG IV (17:45)
[2020-01-27] MEDS: APIXABAN 5 MG TABLET PO (17:45)
[2020-01-27 17:46] VITALS: PULSE 70
[2020-01-27] MEDS: Senna/Docusate Sodium 1 Tablet PO (17:46)
[2020-01-27] MEDS: Atorvastatin Calcium 80 MG Tablet PO (21:06)
[2020-01-27] MEDS: Nystatin Powder 15gm Bottle 1 APPLIC TOPICAL (21:13)
[2020-01-27] MEDS: Menthol/Lanolin/Calamine/Znox 113 GM Tube 1 APPLIC TOPICAL (21:14)
[2020-01-27 21:45] LABS: Bedside Glucose 264 mg/dL (70-110)
[2020-01-28 05:23] VITALS: BP 125/75; PULSE 71; RESP 18; TEMP 36.3; O2SAT 94
[2020-01-28 05:28] VITALS: BP 125/75; PULSE 71
[2020-01-28] MEDS: Metoprolol Tartrate 100 MG Tablet PO ×2 (05:28→17:48)
[2020-01-28] MEDS: Magnesium Oxide 400 MG Tablet PO (05:28)
[2020-01-28] MEDS: Amiodarone 200 MG Tablet PO (05:29)
[2020-01-28] MEDS: Pantoprazole Sodium 40 MG Tablet PO ×2 (05:29→17:49)
[2020-01-28] MEDS: APIXABAN 5 MG TABLET PO ×2 (05:29→17:49)
[2020-01-28] MEDS: Losartan Potassium 50 MG Tablet PO (05:29)
[2020-01-28] MEDS: Loratadine 10 MG Tablet 5 MG PO (05:29)
[2020-01-28] MEDS: Gabapentin 100 MG Capsule 200 MG PO (05:31)
[2020-01-28] MEDS: Menthol/Lanolin/Calamine/Znox 113 GM Tube 1 APPLIC TOPICAL ×2 (05:32→20:57)
[2020-01-28] MEDS: Nystatin Powder 15gm Bottle 1 APPLIC TOPICAL ×2 (05:32→20:57)
[2020-01-28 07:06] LABS: Bedside Glucose 203 mg/dL (70-110)
[2020-01-28 08:18] VITALS: O2SAT 95
[2020-01-28] MEDS: metFORMIN HCl 1,000 MG Tablet 1000 MG PO ×2 (08:33→17:48)
[2020-01-28] MEDS: Aspirin 81 MG TAB.CHEW PO (08:33)
[2020-01-28 11:21] LABS: Bedside Glucose 230 mg/dL (70-110)
[2020-01-28] MEDS: Furosemide 100 MG/10 ML Vial 80 MG IV ×2 (11:56→17:48)
[2020-01-28] MEDS: Tuberculin,Purif.prot.deriv. 50 TU/ML Vial 5 ML ID (12:13)
[2020-01-28 13:49] VITALS: O2SAT 95
[2020-01-28 14:05] VITALS: BP 136/56; PULSE 77; RESP 16; TEMP 36.8; O2SAT 95
[2020-01-28 17:00] LABS: Bedside Glucose 201 mg/dL (70-110)
[2020-01-28 17:48] VITALS: PULSE 77
[2020-01-28] MEDS: Senna/Docusate Sodium 1 Tablet PO (17:49)
[2020-01-28] MEDS: Atorvastatin Calcium 80 MG Tablet PO (20:56)
[2020-01-28] MEDS: 0.9% Saline Lock 10 ML Syringe IV (21:09)
[2020-01-28 21:15] LABS: Bedside Glucose 214 mg/dL (70-110)
[2020-01-29 06:23] VITALS: BP 134/82; PULSE 75; RESP 20; TEMP 36.1; O2SAT 97
[2020-01-29 06:25] LABS: Bedside Glucose 169 mg/dL (70-110)
[2020-01-29 06:31] VITALS: BP 134/82; PULSE 75
[2020-01-29] MEDS: Pantoprazole Sodium 40 MG Tablet PO ×2 (06:31→17:16)
[2020-01-29] MEDS: Gabapentin 100 MG Capsule 200 MG PO (06:31)
[2020-01-29] MEDS: Metoprolol Tartrate 100 MG Tablet PO ×2 (06:31→17:16)
[2020-01-29] MEDS: APIXABAN 5 MG TABLET PO ×2 (06:32→17:16)
[2020-01-29] MEDS: Loratadine 10 MG Tablet 5 MG PO (06:32)
[2020-01-29] MEDS: Losartan Potassium 50 MG Tablet PO (06:32)
[2020-01-29] MEDS: Amiodarone 200 MG Tablet PO (06:32)
[2020-01-29] MEDS: Magnesium Oxide 400 MG Tablet PO (06:33)
[2020-01-29] MEDS: Menthol/Lanolin/Calamine/Znox 113 GM Tube 1 APPLIC TOPICAL ×2 (06:35→22:11)
[2020-01-29] MEDS: Nystatin Powder 15gm Bottle 1 APPLIC TOPICAL ×2 (06:35→22:11)
[2020-01-29 06:36] VITALS: O2SAT 96
[2020-01-29 06:37] LABS: Anion Gap 5 (5-15); BUN 23 mg/dL (7-18); BUN/Creat Ratio 18.4 RATIO (10-20); Calcium,Total 8.5 mg/dL (8.5-10.1); Chloride 92 mmol/L (98-107); Creatinine, Serum 1.25 mg/dL (0.70-1.30); EST Glomerular Filtration Rate 62 mL/min (>60); Est Glom Filt Rate - Afr Amer 75 mL/min (>60); Estimated Creatinine Clearance 68.12 ml/min; Glucose 186 mg/dL (74-106); Potassium 3.8 mmol/L (3.5-5.1); Sodium Level 136 mmol/L (136-145)
[2020-01-29] MEDS: metFORMIN HCl 1,000 MG Tablet 1000 MG PO ×2 (08:09→17:16)
[2020-01-29] MEDS: Aspirin 81 MG TAB.CHEW PO (08:09)
--- NOTE | 2020-01-29 10:13 | PHA.CONS_ITS ---
Progress Note - Pharmacy Subjective: [] TCU Admission Objective: Allergies No Known Allergies Allergy (Verified 01/20/20 08:35) Current Medications Generic Name Dose Route Start Last Admin Trade Name Freq PRN Reason Stop Dose Admin Acetaminophen 1,000 mg 01/27/20 08:51 Tylenol PO Q6H PRN Pain Score 1-10/10 Amiodarone HCl 200 mg 01/27/20 08:00 01/29/20 06:32 Cordarone PO 200 mg DAILY [facility] Administration Apixaban 5 mg 01/27/20 18:00 01/29/20 06:32 Eliquis PO 5 mg BID [facility] Administration Aspirin 81 mg 01/27/20 08:00 01/29/20 08:09 Aspirin, Baby PO 81 mg DAILY@0800 [facility] Administration Atorvastatin Calcium 80 mg 01/27/20 22:00 01/28/20 20:56 Lipitor PO 80 mg QHS [facility] Administration Bisacodyl 10 mg 01/27/20 08:52 Dulcolax PO DAILY PRN Constipation Calamine/Phenol 1 applic 01/27/20 22:00 01/29/20 06:35 Calmoseptine Ointment TOPICAL 1 applicatio 0600,2200 [facility] Administration Protocol Dextrose 0 gm 01/27/20 06:27 D50w Syringe IV X1 PRN Hypoglycemia Protocol Furosemide 80 mg 01/27/20 18:00 01/28/20 17:48 Lasix IV 80 mg BID@1000,1800 [facility] Administration Gabapentin 200 mg 01/27/20 08:00 01/29/20 06:31 Neurontin PO 200 mg DAILY [facility] Administration Glucagon 1 mg 01/27/20 06:27 IM .X1 PRN Hypoglycemia Insulin Glargine 20 units 01/28/20 22:00 01/28/20 22:21 Lantus (Bkc) SC 10 units QHS [facility] Administration Ipratropium [place] 1 spray 01/27/20 06:12 Atrovent Nasal [place] (G) NASAL DAILY PRN PRN ALLERGIES Loratadine 5 mg 01/28/20 06:00 01/29/20 06:32 Claritin PO 5 mg DAILY [facility] Administration Losartan Potassium 50 mg 01/27/20 08:00 01/29/20 06:32 Cozaar PO 50 mg DAILY [facility] Administration Magnesium Oxide 400 mg 01/27/20 08:00 01/29/20 06:33 Mag-Ox 400 PO 400 mg DAILY [facility] Administration Metformin HCl 1,000 mg 01/27/20 08:00 01/29/20 08:09 Glucophage PO 1,000 mg BIDCM [facility] Administration Metoprolol Tartrate 100 mg 01/27/20 08:00 01/29/20 06:31 Lopressor (Beta Chidi) PO 100 mg BID [facility] Administration Multi-Ingredient Cream 1 applic 01/27/20 22:00 01/28/20 20:57 Eucerin TOPICAL 1 applicatio QHS [facility] Administration Protocol Nystatin 1 applic 01/27/20 22:00 01/29/20 06:35 Mycostatin Powder TOPICAL 1 applicatio 0600,2200 [facility] Administration Protocol Pantoprazole Sodium 40 mg 01/27/20 08:00 01/29/20 06:31 Protonix PO 40 mg BID [facility] Administration Polyethylene Glycol 17 gm 01/27/20 08:00 01/29/20 06:32 Miralax PO Not Given DAILY [facility] Potassium Chloride 20 meq 01/27/20 08:00 01/29/20 06:33 K-Dur PO 20 meq DAILY [facility] Administration Senna/Docusate Sodium 1 tablet 01/27/20 18:00 01/29/20 06:33 Senokot-S, Leela-Colace PO Not Given BID [facility] Sodium Chloride 10 - 40 ml 01/27/20 07:41 01/28/20 21:09 IV 10 ml UD PRN Administration SALINE FLUSH Temazepam 15 mg 01/27/20 06:12 Restoril PO QHS PRN PRN INSOMNIA Tuberculin PPD 5 tu 02/04/20 10:00 Tubersol, Aplisol, Ppd ID 02/04/20 10:01 X1 ONE Problem List (Last Reviewed 01/20/20 @ 09:[address] Ian Rondon MD) Debility (Acute) Unresponsiveness (Acute) Acute respiratory failure (Acute) Obstructive sleep apnea (Chronic) Acute kidney injury (Acute) Acute on chronic anemia (Chronic) Atrial fibrillation with rapid ventricular response (Chronic) Pulmonary edema (Acute) Coronary artery disease (Chronic) Acute on chronic diastolic congestive heart failure (Acute) Pulmonary hypertension (Chronic) Hypertension (Chronic) Hyperlipidemia (Chronic) Neuropathic pain (Chronic) Diabetes mellitus (Chronic) GERD (gastroesophageal reflux disease) (Chronic) Allergic rhinitis (Chronic) Body mass index (BMI) 40.0-44.9, adult (Chronic) Vital Signs Temp Pulse Resp BP Pulse Ox 97.0 F L 75 20 H 134/82 H 96 01/29/20 06:23 01/29/20 06:31 01/29/20 06:23 01/29/20 06:31 01/29/20 06:36 Oxygen Flow Rate (L/min) 2 Oxygen Delivery Method Nasal Cannula Weight: 144.674 kg Body Mass Index (BMI) 43.2 Finger Stick Blood Glucose 128 Sodium 136 mmol/L (136-145) 01/29/20 05:50 Potassium 3.8 mmol/L (3.5-5.1) 01/29/20 05:50 Chloride 92 mmol/L (98-107) L 01/29/20 05:50 Carbon Dioxide 39.0 mmol/L (21.0-32.0) H 01/29/20 05:50 Anion Gap 5 (5-15) 01/29/20 05:50 BUN 23 mg/dL (7-18) H 01/29/20 05:50 Creatinine 1.25 mg/dL (0.70-1.30) 01/29/20 05:50 Est GFR (MDRD) Af Amer 75 mL/min (>60) 01/29/20 05:50 Est GFR (MDRD) Non-Af 62 mL/min (>60) 01/29/20 05:50 BUN/Creatinine Ratio 18.4 RATIO (10-20) 01/29/20 05:50 Glucose 186 mg/dL (74-106) H 01/29/20 05:50 Assessment/Plan: 1) Pain: Acetaminophen 1000mg po q6h prn for pain 1-10. Please continue to monitor prn usage and for signs/symptoms of increased/decreased pain. 2) Hyperlipidemia: Atorvastatin 80mg po qhs. Please continue to monitor a yearly LFT and Lipid panel while the pt is on a statin. 3) GERD: Pantoprazole 40mg po bid. senior care use of PPis can interfere with vitamin absorption. Pt's last magnesium level was 1.8. Please continue to monitor. 4) Hypokalemia: Potassium 20meq po daily. Pt's last K+ level was 3.4 on 01/29/20. Please continue to monitor. 5) Hypomagnesemia: Mag-Ox 400mg po daily. Pt's last magnesium level was 1.8 on 01/25/20. Please continue to monitor. 6) Diabetes: Lantus 20units subq daily at bedtime, Metformin 1000mg po bid with food. Pt's GFR is 62. Please continue to monitor. Pt's average BS reading over the past 15 readings is 222.87. Please continue to monitor. 7) AFib, CHF: Metoprolol 100mg po bid, Eliquis 5mg po bid, Amiodarone 200mg po daily, Aspirin 81mg po daily, Losartan 50mg po daily. Pt's average pulse is 73 and average BP is 128.87/69.75. Please continue to monitor. Pt's SrCr is 1.25, BUN is 23, and K+ is 3.8. Please continue to monitor. 8) Neuropathic Pain: Gabapentin 200mg po daily. Pt is 59, not BEERS eligible. Please continue to monitor for signs/symptoms of neuropathy. Psychotropic Medications: Insomnia: Temazepam 15mg po qhs prn. Please continue to monitor prn usage. Unnecessary Medications: Bowel Regimen: Bisacodyl 10mg po daily prn for constipation, Miralax 17gm po daily, Senna/Docusate 1 tablet po bid. Please continue to monitor prn usage and for signs/symptoms of constipation/diarrhea. Date of Note:: 01/29/20 - Provider Comments Provider responsibility: Provider responsible to enter orders to implement recommendations
[2020-01-29] MEDS: Furosemide 100 MG/10 ML Vial 80 MG IV ×2 (10:37→17:06)
[2020-01-29] MEDS: 0.9% Saline Lock 10 ML Syringe IV ×2 (10:37→17:06)
[2020-01-29 10:45] VITALS: BP 104/61; PULSE 70; RESP 16; TEMP 36.8; O2SAT 96
[2020-01-29 11:31] LABS: Bedside Glucose 230 mg/dL (70-110)
[2020-01-29 16:11] LABS: Bedside Glucose 174 mg/dL (70-110)
[2020-01-29 17:16] VITALS: BP 104/61; PULSE 70
[2020-01-29] MEDS: Atorvastatin Calcium 80 MG Tablet PO (22:05)
[2020-01-29 22:15] LABS: Bedside Glucose 196 mg/dL (70-110)
[2020-01-30] MEDS: Loratadine 10 MG Tablet 5 MG PO (06:20)
[2020-01-30] MEDS: Gabapentin 100 MG Capsule 200 MG PO (06:20)
[2020-01-30] MEDS: Losartan Potassium 50 MG Tablet PO (06:20)
[2020-01-30 06:21] VITALS: BP 123/67; PULSE 76
[2020-01-30] MEDS: Metoprolol Tartrate 100 MG Tablet PO ×2 (06:21→17:09)
[2020-01-30] MEDS: Pantoprazole Sodium 40 MG Tablet PO ×2 (06:21→17:09)
[2020-01-30] MEDS: APIXABAN 5 MG TABLET PO ×2 (06:21→17:09)
[2020-01-30] MEDS: Magnesium Oxide 400 MG Tablet PO (06:21)
[2020-01-30] MEDS: Menthol/Lanolin/Calamine/Znox 113 GM Tube 1 APPLIC TOPICAL ×2 (06:22→20:31)
[2020-01-30] MEDS: Nystatin Powder 15gm Bottle 1 APPLIC TOPICAL ×2 (06:22→20:32)
[2020-01-30] MEDS: Amiodarone 200 MG Tablet PO (06:29)
[2020-01-30] MEDS: 0.9% Saline Lock 10 ML Syringe IV ×3 (06:31→17:10)
[2020-01-30 06:33] VITALS: RESP 19; TEMP 36.6; O2SAT 95
[2020-01-30 06:41] LABS: Bedside Glucose 185 mg/dL (70-110)
[2020-01-30 07:04] VITALS: O2SAT 91
[2020-01-30] MEDS: Furosemide 100 MG/10 ML Vial 80 MG IV ×2 (08:42→17:09)
[2020-01-30] MEDS: Aspirin 81 MG TAB.CHEW PO (08:42)
[2020-01-30] MEDS: metFORMIN HCl 1,000 MG Tablet 1000 MG PO ×2 (08:42→17:09)
[2020-01-30 09:12] VITALS: O2SAT 96
[2020-01-30 11:25] LABS: Bedside Glucose 229 mg/dL (70-110)
--- NOTE | 2020-01-30 14:08 | NURSING ---
Per patient, he speaks to his everyday on his phone.
[2020-01-30 15:36] VITALS: BP 113/65; PULSE 67; RESP 20; TEMP 36.2; O2SAT 97
[2020-01-30 17:05] LABS: Bedside Glucose 175 mg/dL (70-110)
[2020-01-30 17:09] VITALS: BP 113/65; PULSE 67
[2020-01-30] MEDS: Atorvastatin Calcium 80 MG Tablet PO (20:29)
[2020-01-30 20:46] LABS: Bedside Glucose 210 mg/dL (70-110)
[2020-01-31] VITALS (7 sets, daily range): BP systolic 102–124; BP diastolic 63–69; PULSE 68–73; RESP 18–20; TEMP 36.4; O2SAT 94–100
[2020-01-31 06:21] LABS: Bedside Glucose 163 mg/dL (70-110)
[2020-01-31] MEDS: APIXABAN 5 MG TABLET PO ×2 (06:25→16:35)
[2020-01-31] MEDS: Amiodarone 200 MG Tablet PO (06:26)
[2020-01-31] MEDS: Loratadine 10 MG Tablet 5 MG PO (06:26)
[2020-01-31] MEDS: Gabapentin 100 MG Capsule 200 MG PO (06:26)
[2020-01-31] MEDS: Magnesium Oxide 400 MG Tablet PO (06:27)
[2020-01-31] MEDS: Losartan Potassium 50 MG Tablet PO (06:27)
[2020-01-31] MEDS: Pantoprazole Sodium 40 MG Tablet PO ×2 (06:27→16:35)
[2020-01-31] MEDS: Metoprolol Tartrate 100 MG Tablet PO ×2 (06:27→16:36)
[2020-01-31] MEDS: Nystatin Powder 15gm Bottle 1 APPLIC TOPICAL ×2 (06:28→21:33)
[2020-01-31] MEDS: Menthol/Lanolin/Calamine/Znox 113 GM Tube 1 APPLIC TOPICAL ×2 (06:28→21:33)
[2020-01-31] MEDS: 0.9% Saline Lock 10 ML Syringe IV ×2 (11:16→16:39)
[2020-01-31] MEDS: Furosemide 100 MG/10 ML Vial 80 MG IV ×2 (11:17→16:34)
[2020-01-31] MEDS: metFORMIN HCl 1,000 MG Tablet 1000 MG PO ×2 (11:17→16:35)
[2020-01-31] MEDS: Aspirin 81 MG TAB.CHEW PO (11:18)
--- NOTE | 2020-01-31 12:21 | SLEEP ---
REVIEWED BIPAP AND USE WITH PT. CLEANING OF EQUIPMENT ALSO REVIEWED. FOLDER WITH [employer] CONTACT INFO WELL SLEEP LAB INFO IN BIPAP CARRY BAG. PT VERBALIZES NEED TO WEAR WITH SLEEP, INCLUDING NAPS. ALSO DISCUSSED HOW TO HOOK TO HIS OXYGEN CONCENTRATOR AT HOME. ENCOURAGED HIM TO REACH OUT WITH QUESTIONS OR IF PROBLEMS ARISE. PT THANKFUL FOR THE HELP AND EFFORT IN GETTING HIM TREATED, HE IS ANXIOUS TO GO BACK TO WORK.
--- NOTE | 2020-01-31 15:42 | CASEMGMT ---
Social Work Spoke with pt about DC plans. Pt requesting to DC home with 01/31 with [facility]. Referral made for PT/OT/SN. Sleep Lab setting up sleep machine through [facility] and are aware of DC date. No DME needs. Niyah Abrams, PV DESIGN AND INSTALLATION TECHNICIAN STREET SUPERVISOR
--- NOTE | 2020-01-31 20:31 | DCINST_ITS ---
- Discharge Diagnoses Current Active Problems: Current Active and Chronic Problems (Last Reviewed 01/20/20 @ 09:[address] Ian Rondon MD) Debility (Acute) Unresponsiveness (Acute) Acute respiratory failure (Acute) Obstructive sleep apnea (Chronic) Acute kidney injury (Acute) Acute on chronic anemia (Chronic) Atrial fibrillation with rapid ventricular response (Chronic) Pulmonary edema (Acute) Coronary artery disease (Chronic) Acute on chronic diastolic congestive heart failure (Acute) Pulmonary hypertension (Chronic) Hypertension (Chronic) Hyperlipidemia (Chronic) Neuropathic pain (Chronic) Diabetes mellitus (Chronic) GERD (gastroesophageal reflux disease) (Chronic) Allergic rhinitis (Chronic) Body mass index (BMI) 40.0-44.9, adult (Chronic) You will use the following diet at home:: No restrictions, Regular Your food should be the consistency of: Regular Your liquids should be the consistency of: Regular/Thin Discharge Activity: Return to Normal Activity, May Shower, Use Walker Weight Bearing Status: Weight bearing as tolerated Call your doctor if you observe: Fever of 101 or Higher, Inability to urinate, Inability to have a bowel movement, Shortness of breath, Chest pain, U ncontrolled pain Allergies/Adverse Reactions: Allergies No Known Allergies Allergy (Verified 01/20/20 08:35) Medications to take at Discharge Atorvastatin Calcium [Lipitor] 80 mg PO QHS 11/17/19 Ipratropium [place] 0.06% [ATROVENT NASAL SPRAY] 1 spray INHALATION DAILY PRN PRN 11/17/19 Temazepam 15 mg PO QHS PRN PRN 11/17/19 Gabapentin [Neurontin] 200 mg PO DAILY 01/04/20 Magnesium Oxide 400 mg PO DAILY 01/04/20 Amiodarone HCl 200 mg PO DAILY 01/20/20 Insulin Glargine [Lantus SoloStar Pen] 10 units SUBCUT QHS 01/20/20 Metoprolol Tartrate [Lopressor (beta ronen)] 100 mg PO BID 01/20/20 Pantoprazole Sodium [Protonix] 40 mg PO BID 01/20/20 aspirin 81 mg chewable tablet 1 tab PO DAILY@0800 tab 01/20/20 levocetirizine 5 mg tablet 5 mg PO DAILY 01/20/20 losartan 50 mg tablet 50 mg PO DAILY 01/20/20 metformin 1,000 mg tablet 1,000 mg PO BIDCM tab 01/20/20 Acetaminophen [Tylenol] 1,000 mg PO Q6H PRN tablet 01/31/20 Apixaban [Eliquis] 5 mg PO BID tablet 01/31/20 Furosemide [Lasix] 80 mg PO BIDLX #60 tab 01/31/20 Menthol/Lanolin/Calamine/Znox [Calmoseptine Ointment] 1 applic TOPICAL 0600,2200 tube 01/31/20 Mineral Oil/Petrolatum,White [Eucerin] 1 applic TOPICAL QHS jar 01/31/20 Nystatin Powder [Mycostatin Powder] 1 applic TOPICAL 0600,2200 bottle 01/31/20 Potassium Chloride [K-Dur] 20 meq PO DAILY #30 tab 01/31/20 The following prescriptions were given: Potassium Chloride [K-Dur] 20 meq PO DAILY #30 tab Transmission Status: Pending to [id number] Furosemide [Lasix] 80 mg PO BIDLX #60 tab Transmission Status: [id number] Orders to be completed after discharge: Basic Metabolic Profile (BMP) Time Frame: 2 Days, Facility: [facility], Location: Laboratory Primary Care Physician: Josué Rodriguez MD [Primary Care Provider] - Please follow up with your Primary Care Physician in: 1 weej, Test Results: Test results from this visit will be discussed in further detail at your follow- up appointment, if applicable. Please Follow Up With: Dr. Rondon When: 1-2 weeks Please Follow Up With: Dr. Kika Mendoza Please Follow Up With: Dr. Qiu When: 2 weeks Please Follow Up With: Dr. Loja When: 1 weeks Proposed Discharge Date: 02/01/20
--- NOTE | 2020-01-31 20:33 | DS.PCM_ITS ---
Discharge Date and Diagnosis - Problem List Patient Problems: Active and Suspected Problems (Last Reviewed 01/20/20 @ 09:[address] Ian Rondon MD) Debility (Acute) Unresponsiveness (Acute) Acute respiratory failure (Acute) Acute kidney injury (Acute) Pulmonary edema (Acute) Acute on chronic diastolic congestive heart failure (Acute) Date of Admission: 01/27/20 Date of Discharge: 02/01/20 - Primary Discharge Diagnosis Acute Problems: Active Problems (Last Reviewed 01/20/20 @ 09:[address] Ian Rondon MD) Debility (Acute) Unresponsiveness (Acute) Acute respiratory failure (Acute) Acute kidney injury (Acute) Pulmonary edema (Acute) Acute on chronic diastolic congestive heart failure (Acute) - Secondary Discharge Diagnosis Chronic Problems: Chronic Problems (Last Reviewed 01/20/20 @ 09:[address] Ian Rondon MD) Obstructive sleep apnea (Chronic) Acute on chronic anemia (Chronic) Atrial fibrillation with rapid ventricular response (Chronic) Coronary artery disease (Chronic) Pulmonary hypertension (Chronic) Hypertension (Chronic) Hyperlipidemia (Chronic) Neuropathic pain (Chronic) Diabetes mellitus (Chronic) GERD (gastroesophageal reflux disease) (Chronic) Allergic rhinitis (Chronic) Body mass index (BMI) 40.0-44.9, adult (Chronic) Respiratory failure with hypoxia and hypercapnia (Chronic) History of non-ST elevation myocardial infarction (NSTEMI) (Chronic 01/04/20) 11/17/2019, 01/04/2020 Atherosclerosis of coronary artery of [place] heart without angina pectoris (Chronic) H/O coronary artery bypass surgery (Chronic 12/26/19) CABG x 4: ARREDONDO-LAD, Free ISAK from the D1 SVG-OM1, SVG-D1, SVG-RPDA 12/26/19 Chronic diastolic (congestive) heart failure (Chronic) Secondary pulmonary arterial hypertension (Chronic) Essential (primary) hypertension (Chronic) Hypercholesterolemia (Chronic) Anemia (Chronic) Hospital Course and Treatment Imaging Results: 01/27/20 10:12 Diet: Cardiac: Calorie-Controlled Food consistency:: Regular Liquid Consistency:: Regular/Thin Dietary Modifications:: Fluid Restricted Diet Is pt able to select menu?: Yes Diet Comments: with 1500 cc FR/day How many daily calories?: 2000 calorie Labs (Last 48 Hours) 01/29/20 01/30/20 01/30/20 22:01 06:25 11:00 POC Glucose 196 H 185 H 229 H 01/30/20 01/30/20 01/31/20 16:54 20:27 06:08 POC Glucose 175 H 210 H 163 H Operations: None Procedures: None Summary of Care Provided: The patient is a 59 year old Male with below past medical history hospitalized for acute respiratory failure requiring intubation secondary to right sided heart failure from undiagnosed obstructive sleep apnea, complicated by acute kidney injury, acute on chronic anemia, admitted to TCU with debility, here for rehabilitation, strengthening, prior to discharge home with . Discharge home with , [facility] PT/OT/SN. Sleep lab setting up sleep machine thru [employer]. Consider referral for life saving bariatric surgery if Dallin unable to lose weight on his own. Patient Problems: Active and Suspected Problems (Last Reviewed 01/20/20 @ 09:[address] Ian Rondon MD) Debility (Acute) Unresponsiveness (Acute) Acute respiratory failure (Acute) Acute kidney injury (Acute) Pulmonary edema (Acute) Acute on chronic diastolic congestive heart failure (Acute) - Physical Exam Vitals/I&O's: Vital Signs Temp Pulse Resp BP Pulse Ox 97.6 F L 68 18 124/63 H 94 01/31/20 16:00 01/31/20 16:36 01/31/20 16:00 01/31/20 16:00 01/31/20 16:00 Oxygen Flow Rate (L/min) 2 Oxygen Delivery Method Nasal Cannula Weight: 135.171 kg Body Mass Index (BMI) 43.2 Finger Stick Blood Glucose 128 Intake and Output for Last 24 Hours 01/29/20 01/30/20 01/31/20 23:59 23:59 23:59 Intake Total 600 / 600 970 / 970 480 / 480 Output Total 900 / 900 200 / 200 Balance -300 / -300 770 / 770 480 / 480 Laboratory Results 01/30/20 20:27: POC Glucose 210 H 01/31/20 06:08: POC Glucose 163 H Current Medications Acetaminophen (Tylenol) 1,000 mg PO Q6H PRN PRN Reason: Pain Score 1-10/10 Amiodarone HCl (Cordarone) 200 mg PO DAILY [facility] Last Admin: 01/31/20 06:26 Dose: 200 mg Documented by: Apixaban (Eliquis) 5 mg PO BID [facility] Last Admin: 01/31/20 16:35 Dose: 5 mg Documented by: Aspirin (Aspirin, Baby) 81 mg PO DAILY@0800 [facility] Last Admin: 01/31/20 11:18 Dose: 81 mg Documented by: Atorvastatin Calcium (Lipitor) 80 mg PO QHS [facility] Last Admin: 01/30/20 20:29 Dose: 80 mg Documented by: Bisacodyl (Dulcolax) 10 mg PO DAILY PRN PRN Reason: Constipation Calamine/Phenol (Calmoseptine Ointment) 1 applic TOPICAL 0600,2200 [facility]; Protocol Last Admin: 01/31/20 06:28 Dose: 1 applicatio Documented by: Dextrose (D50w Syringe) 0 gm IV X1 PRN; Protocol PRN Reason: Hypoglycemia Furosemide (Lasix) 80 mg IV BID@0900,1700 [facility] Last Admin: 01/31/20 16:34 Dose: 80 mg Documented by: Gabapentin (Neurontin) 200 mg PO DAILY [facility] Last Admin: 01/31/20 06:26 Dose: 200 mg Documented by: Glucagon () 1 mg IM .X1 PRN PRN Reason: Hypoglycemia Insulin Glargine (Lantus (Bkc)) 20 units SC QHS [facility] Last Admin: 01/30/20 20:27 Dose: 20 units Documented by: Ipratropium [place] (Atrovent Nasal [place] (G)) 1 spray NASAL DAILY PRN PRN PRN Reason: ALLERGIES Loratadine (Claritin) 5 mg PO DAILY [facility] Last Admin: 01/31/20 06:26 Dose: 5 mg Documented by: Losartan Potassium (Cozaar) 50 mg PO DAILY [facility] Last Admin: 01/31/20 06:27 Dose: 50 mg Documented by: Magnesium Oxide (Mag-Ox 400) 400 mg PO DAILY [facility] Last Admin: 01/31/20 06:27 Dose: 400 mg Documented by: Met[facility] ([facility]) [facility] Last Admin: 01/31/20 16:35 Dose: 1,000 mg Documented by: Metoprolol Tartrate (Lopressor (Beta Chidi)) 100 mg PO BID [facility] Last Admin: 01/31/20 16:36 Dose: 100 mg Documented by: [facility]-Ingredient [facility] ([facility]ucerin) [facility]; Protocol Last Admin: 01/30/20 20:32 Dose: 1 applicatio Documented by: Nystatin (Mycostatin Powder) 1 applic TOPICAL 0600,2200 [facility]; Protocol Last Admin: 01/31/20 06:28 Dose: 1 applicatio Documented by: Pantoprazole Sodium (Protonix) 40 mg PO BID [facility] Last Admin: 01/31/20 16:35 Dose: 40 mg Documented by: Polyethylene Glycol (Miralax) 17 gm PO DAILY [facility] Last Admin: 01/31/20 06:26 Dose: Not Given Documented by: Potassium Chloride (K-Dur) 20 meq PO DAILY [facility] Last Admin: 01/31/20 06:27 Dose: 20 meq Documented by: Senna/Docusate Sodium (Senokot-S, Leela-Colace) 1 tablet PO BID [facility] Last Admin: 01/31/20 16:36 Dose: Not Given Documented by: Sodium Chloride () 10 - 40 ml IV UD PRN PRN Reason: SALINE FLUSH Last Admin: 01/31/20 16:39 Dose: 10 ml Documented by: Temazepam (Restoril) 15 mg PO QHS PRN PRN PRN Reason: INSOMNIA Tuberculin PPD (Tubersol, Aplisol, Ppd) 5 tu ID X1 ONE Stop: 02/04/20 10:01 Discharge Diet: 6 Cup Fluid Restriction Discharge Activity: Return to Normal Activity, May Shower, Use Walker Weight Bearing Status: Weight bearing as tolerated Call your doctor if you observe: Fever of 101 or Higher, Inability to urinate, Inability to have a bowel movement, Shortness of breath, Chest pain, Uncontrolled pain Home Medications: Medications to take at Discharge Atorvastatin Calcium [Lipitor] 80 mg PO QHS 11/17/19 Ipratropium [place] 0.06% [ATROVENT NASAL SPRAY] 1 spray INHALATION DAILY PRN PRN 11/17/19 Temazepam 15 mg PO QHS PRN PRN 11/17/19 Gabapentin [Neurontin] 200 mg PO DAILY 01/04/20 Magnesium Oxide 400 mg PO DAILY 01/04/20 Amiodarone HCl 200 mg PO DAILY 01/20/20 Insulin Glargine [Lantus SoloStar Pen] 10 units SUBCUT QHS 01/20/20 Metoprolol Tartrate [Lopressor (beta chidi)] 100 mg PO BID 01/20/20 Pantoprazole Sodium [Protonix] 40 mg PO BID 01/20/20 aspirin 81 mg chewable tablet 1 tab PO DAILY@0800 tab 01/20/20 levocetirizine 5 mg tablet 5 mg PO DAILY 01/20/20 losartan 50 mg tablet 50 mg PO DAILY 01/20/20 metformin 1,000 mg tablet 1,000 mg PO BIDCM tab 01/20/20 Acetaminophen [Tylenol] 1,000 mg PO Q6H PRN tablet 01/31/20 Apixaban [Eliquis] 5 mg PO BID tablet 01/31/20 Furosemide [Lasix] 80 mg PO BIDLX #60 tab 01/31/20 Menthol/Lanolin/Calamine/Znox [Calmoseptine Ointment] 1 applic TOPICAL 0600,2200 tube 01/31/20 Mineral Oil/Petrolatum,White [Eucerin] 1 applic TOPICAL QHS jar 01/31/20 Nystatin Powder [Mycostatin Powder] 1 applic TOPICAL 0600,2200 bottle 01/31/20 Potassium Chloride [K-Dur] 20 meq PO DAILY #30 tab 01/31/20 Following Prescrptions Were Given to Patient: Potassium Chloride [K-Dur] 20 meq PO DAILY #30 tab Transmission Status: [id number] Furosemide [Lasix] 80 mg PO BIDLX #60 tab Transmission Status: [id number] Other Amb Orders: Basic Metabolic Profile (BMP) Time Frame: 2 Days, Facility: [facility], Location: Laboratory Primary Care Physician: Josué Rodriguez MD [Primary Care Provider] - Please follow up with your Primary Care Physician in: 1 weej, Please Follow Up With: Dr. Rondon When: 1-2 weeks Please Follow Up With: Dr. Kika Mendoza Please Follow Up With: Dr. Qiu When: 2 weeks Please Follow Up With: Dr. Loja When: 1 weeks Disposition: Home with Home Health Minutes spent on discharge:: 35 Patient Condition:: Stable Medical Necessity - Tobacco Use Smoking Status: Never smoker Tobacco Use: Non-smoker Meaningful Use Info Meaningful Use Diagnoses (Choose all that apply): None applicable
[2020-01-31 21:15] LABS: Bedside Glucose 196 mg/dL (70-110)
[2020-01-31] MEDS: Atorvastatin Calcium 80 MG Tablet PO (21:35)
[2020-02-01] MEDS: Nystatin Powder 15gm Bottle 1 APPLIC TOPICAL (06:17)
[2020-02-01] MEDS: Menthol/Lanolin/Calamine/Znox 113 GM Tube 1 APPLIC TOPICAL (06:17)
[2020-02-01] MEDS: Magnesium Oxide 400 MG Tablet PO (06:18)
[2020-02-01] MEDS: Gabapentin 100 MG Capsule 200 MG PO (06:18)
[2020-02-01 06:19] VITALS: BP 122/71; PULSE 67
[2020-02-01] MEDS: Amiodarone 200 MG Tablet PO (06:19)
[2020-02-01] MEDS: Metoprolol Tartrate 100 MG Tablet PO (06:19)
[2020-02-01] MEDS: Loratadine 10 MG Tablet 5 MG PO (06:19)
[2020-02-01] MEDS: APIXABAN 5 MG TABLET PO (06:20)
[2020-02-01] MEDS: Losartan Potassium 50 MG Tablet PO (06:20)
[2020-02-01] MEDS: Pantoprazole Sodium 40 MG Tablet PO (06:20)
[2020-02-01 06:26] VITALS: RESP 20; TEMP 36.4; O2SAT 89
[2020-02-01 06:45] LABS: Bedside Glucose 156 mg/dL (70-110)
[2020-02-01] MEDS: metFORMIN HCl 1,000 MG Tablet 1000 MG PO (08:00)
[2020-02-01] MEDS: Aspirin 81 MG TAB.CHEW PO (08:00)
[2020-02-01 08:39] VITALS: PULSE 68; RESP 14; O2SAT 98
[2020-02-01 13:59] VITALS: O2SAT 98
--- NOTE | 2020-02-06 11:39 | MDS.RN ---
Information for the mds was obtained from review of the clinical record, interview of resident, staff, and direct observation of resident's care.
== END 2020-02-01 10:15 | disposition home health service (06) | DRG 292 ==
PROVIDERS: Admitting Provider Family Medicine Geriatric Medicine; PCP Family Medicine; Visit Provider Family Medicine Geriatric Medicine
DX: I11.0 Hypertensive heart disease with heart failure (principal); I48.20 Chronic atrial fibrillation, unspecified; J96.12 Chronic respiratory failure with hypercapnia; J96.11 Chronic respiratory failure with hypoxia; Z68.41 Body mass index [BMI] 40.0-44.9, adult; I50.32 Chronic diastolic (congestive) heart failure; G47.33 Obstructive sleep apnea (adult) (pediatric); I25.10 Atherosclerotic heart disease of native coronary artery without angina pectoris; E11.9 Type 2 diabetes mellitus without complications; K21.9 Gastro-esophageal reflux disease without esophagitis; E78.5 Hyperlipidemia, unspecified; Z95.1 Presence of aortocoronary bypass graft; I25.2 Old myocardial infarction; I27.21 Secondary pulmonary arterial hypertension; E66.9 Obesity, unspecified; B35.4 Tinea corporis; E87.6 Hypokalemia
CPT/HCPCS: 36415; 80048; 82962; 85025; 87635; 97110; 97116; 97162; 97165; 97530; 97535; 97802; G2023; A4216; J1940; U0004

== ENCOUNTER → 2020-01-31 13:24 | Outpatient (CLI) | payer OTHER, SELFPAY ==
[2020-01-27 06:06] VITALS: BMI 43.2
== END ==
PROVIDERS: PCP Family Medicine; Visit Provider Nurse Practitioner Acute Care
DX: G47.10 Hypersomnia, unspecified (principal)

== ENCOUNTER → 2020-02-06 | Outpatient (CLI) | payer OTHER, SELFPAY ==
[2020-01-27 06:06] VITALS: BMI 43.2
[2020-02-06 15:19] LABS: Absolute Lymphocyte Count 0.97 X10^3/uL (0.83-4.51); Absolute Neutrophil Count 2.7 X10^3/uL (2.0-7.7); Basophil# 0.08 X10^3/uL; Basophil% 1.8 % (0-1); Eosinophil# 0.26 X10^3/uL; Eosinophils% 5.9 % (0-5); Hematocrit 30.9 % (40-54); Hemoglobin 9.1 g/dL (13.0-16.5); Lymphocyte # 0.97 X10^3/ul (4.0); Lymphocyte % 21.9 % (19-41); Mean Corp Hgb Conc 29.4 g/dL (32-36); Mean Corpuscular Hgb 26.9 pg (27.0-32.0); Mean Corpuscular Volume 91.4 fL (80-94); Monocyte# 0.43 X10^3/uL; Monocyte% 9.7 % (0-10); NRBC Flagged by Analyzer 0 % (0-5); Neutrophil # 2.68 X10^3/uL (2.7-7.7); Neutrophil % 60.5 % (47-70); Platelet Count 406 K/mm3 (150-450); RBC Distribution Width CV 14.7 % (11.6-14.6); RBC Distribution Width SD 49.6 fl (35.1-43.9); Red Blood Count 3.38 M/mm3 (4.6-6.2); White Blood Count 4.4 K/mm3 (4.4-11.0)
[2020-02-06 15:38] LABS: Procalcitonin 0.13 ng/mL (0.00-0.09)
[2020-02-06 15:50] LABS: BNP,B-Type NATRIURETIC PEPTIDE 368.9 pg/mL (0-100)
[2020-02-06 20:51] LABS: ALB/GLOB Ratio 0.6 RATIO (0.9-2.4); AST(SGOT) 25 U/L (15-37); Alanine Aminotransfer ALT/SGPT 35 U/L (16-61); Albumin, Serum 2.7 g/dL (3.2-5.0); Alkaline Phosphatase 120 U/L (45-117); Anion Gap 11 (5-15); BUN 35 mg/dL (7-18); Calcium,Total 7.7 mg/dL (8.5-10.1); Chloride 94 mmol/L (98-107); Creatinine, Serum 1.59 mg/dL (0.70-1.30); EST Glomerular Filtration Rate 47 mL/min (>60); Est Glom Filt Rate - Afr Amer 57 mL/min (>60); Ferritin 585 ng/mL (26-388); Globulin 4.7 g/dL (2.2-4.2); Glucose 163 mg/dL (74-106); Iron 44 ug/dL (65-175); Iron Binding Capacity,Total 284 ug/dL (250-450); PERCENT IRON SATURATION 15.5 % (15.0-55.0); Potassium 5.2 mmol/L (3.5-5.1); Protein, Total 7.4 g/dL (6.4-8.2); Sodium Level 139 mmol/L (136-145)
== END | disposition home or self-care (01) ==
LOC: MFPLAB 10:48
PROVIDERS: PCP Family Medicine; Referring Provider Family Medicine; Visit Provider Family Medicine
DX: I50.33 Acute on chronic diastolic (congestive) heart failure (principal); D64.9 Anemia, unspecified; J18.9 Pneumonia, unspecified organism; I25.10 Atherosclerotic heart disease of native coronary artery without angina pectoris
CPT/HCPCS: 36415; 80053; 82728; 83540; 83550; 83880; 84145; 84153; 85025; 86140

== ENCOUNTER → 2020-02-15 | Outpatient (CLI) | payer OTHER, SELFPAY ==
[2020-02-09 08:00] VITALS: BMI 43.2
[2020-02-15 11:44] LABS: BNP,B-Type NATRIURETIC PEPTIDE 277.1 pg/mL (0-100)
[2020-02-15 11:49] LABS: ALB/GLOB Ratio 0.6 RATIO (0.9-2.4); AST(SGOT) 17 U/L (15-37); Alanine Aminotransfer ALT/SGPT 30 U/L (16-61); Albumin, Serum 3.1 g/dL (3.2-5.0); Alkaline Phosphatase 127 U/L (45-117); Anion Gap 9 (5-15); BUN 42 mg/dL (7-18); BUN/Creat Ratio 21.8 RATIO (10-20); Chloride 94 mmol/L (98-107); Creatinine, Serum 1.93 mg/dL (0.70-1.30); EST Glomerular Filtration Rate 38 mL/min (>60); Est Glom Filt Rate - Afr Amer 46 mL/min (>60); Globulin 4.9 g/dL (2.2-4.2); Glucose 225 mg/dL (74-106); Potassium 4.5 mmol/L (3.5-5.1); Sodium Level 136 mmol/L (136-145)
== END | disposition home or self-care (01) ==
LOC: LAB 10:27
PROVIDERS: PCP Family Medicine; Referring Provider Family Medicine; Visit Provider Family Medicine
DX: I10 Essential (primary) hypertension (principal)
CPT/HCPCS: 36415; 80053; 83880

== ENCOUNTER → 2020-02-21 | Outpatient (CLI) | payer OTHER, SELFPAY ==
[2020-02-09 08:00] VITALS: BMI 43.2
--- NOTE | 2020-02-21 14:13 | RAD_ITS ---
STUDY: X-RAY CHEST REASON FOR EXAM: Male, 59 years old. Decreased breath sounds TECHNIQUE: PA and lateral views of the chest. COMPARISON: Comparison is made with prior study of January 23, 2020. FINDINGS: There are now is evidence of a small right pleural effusion with right basilar atelectasis. The previously seen left pleural effusion and infiltrate has cleared. Sternal cerclage wires and vascular clips are present from a prior sternotomy and coronary artery bypass graft procedure (CABG). Cardiomegaly. Normal mediastinum and riana. Normal visualized pulmonary arteries. Normal visualized aortic arch and descending thoracic aorta. There are diffuse degenerative changes of the visualized thoracic spine. Normal visualized ribs, clavicles, and shoulders. There is no demonstrated abnormality of the visualized soft tissue structures of the upper abdomen. RAD/Chest PA and Lateral IMPRESSION: New small right pleural effusion with right basilar atelectasis and/or infiltrate. Electronically Signed: Tutu Royal, at 15:42 EDT , Service support ,
== END | disposition home or self-care (01) ==
LOC: MTRAD 14:11
PROVIDERS: PCP Family Medicine; Referring Provider Family Medicine; Visit Provider Family Medicine
DX: R06.89 Other abnormalities of breathing (principal)
CPT/HCPCS: 71046

== ENCOUNTER → 2020-02-29 | Outpatient (CLI) | payer OTHER, SELFPAY ==
[2020-02-09 08:00] VITALS: BMI 43.2
--- NOTE | 2020-02-29 14:10 | PFTCOMP ---
COMPLETE PULMONARY FUNCTION TEST INTERPRETATION Brief HPI: Patient is a 69 year old male, currently under the care of Kika Mendoza, who presents to [facility] for complete pulmonary function tests secondary to diagnosis of dyspnea. Respiratory therapist reports good effort and reproducible results. Interpretation: Forced expiration spirometry shows no large airways obstructive ventilatory defect with an FEV1 of 45% predicted. There is no significant bronchodilator response by strict ATS criteria. Spirograms are of good quality and plateau normally. The respiratory flow volume loop shows a normal pattern. Lung volumes by body plethysmography show a decreased total lung capacity at 3.63 L, 52% predicted. All other lung volumes are reduced symmetrically. Diffusion capacity by carbon monoxide is decreased at 69% predicted. The airway resistance is elevated. No previous pulmonary function tests were available for review. Impression: Moderate restrictive ventilatory defect with a symmetric reduction in diffusing capacity
== END | disposition home or self-care (01) ==
LOC: PSN 07:17
PROVIDERS: PCP Family Medicine; Referring Provider Nurse Practitioner Acute Care; Visit Provider Nurse Practitioner Acute Care
DX: R06.02 Shortness of breath (principal)
CPT/HCPCS: 94060; 94726; 94729

== ENCOUNTER → 2020-03-01 08:58 | Outpatient (CLI) | payer OTHER, SELFPAY ==
[2020-02-09 08:00] VITALS: BMI 43.2
--- NOTE | 2020-03-01 09:54 | PCM.CR.ITP ---
Diagnosis - General Information Admitting Diagnosis: S/P CABG x 4 Secondary Diagnosis: H/O NSTEMI, HYPERTENSION, HYPERLIPIDEMIA, ATRIAL FIBRILLATION, CHRONIC DIASTOLIC HEART FAILURE HFP EF 65%, RESPIRATORY FAILURE W/HYPOXIA, SECONDARY PULMONARY HYPERTENSION. Personal Learning Style:: Audio/Visual, Written Barriers to Learning: Vision Impairment Stage of change r/t lifestyle modifications:: Action Gave educational material for:: Treating Heart Disease, Emotions & Heart Disease, Stress Management & Relaxation, Sleep Disorders & Heart Disease, How The Heart Works, What it means to have Heart Disease, How Coronary Artery Disease is Diagnosed, Heart Procedures, What Heart Medications Do, Risk Factors & Modifications, Living an Active Life, Nutrition - Education/Goals Individual Counseling: Initial Assessment: Abnormal Cholesterol Levels, High Blood Pressure, Overweight/Obesity, Diabetes, Metabolic Syndrome (as evidenced by 3 of 5 A-E below), A. Fasting Blood Sugar >100 - GLUCOSE 225 A1C 9.1%, B. Waist Circumference >35/Females >40/Males - MORBID OBESITY 39.49, Hypertension - CONTROLLED, Sedentary Lifestyle Cardiac Rehabilitation Goals: 1. Maintain the individual as the primary focus of care. 2. To improve the patient's quality of life. 3. Identification of cardiac risk factors and provide cardiac risk factor management. 4. Enhance the psychosocial status of the patient. 5. Reconditioning enough to allow the patient to resume customary activities. 6. Control symptoms of cardiac disease Personal Goals: Initial Assessment: Improve management of stress and emotions, Improve energy level, Participate in home exercise program, Get back to work, or to resume activities faster, Improve knowledge of cardiac disease, Improve muscle strength and endurance, Improve diet and eating habits (eat healthier), Control risk factors (learn risk factor modification) Scale for measuring improvement of personal goals: Enter appropriate number in Comments. 2 = Unchanged. 3 = Slightly Better. 4 = Moderate Improvement. 5 = Met my Goal - Diagnosis & Disease Process Outcomes/Goals: Pt IDs own risk factors & lifestyle modifications by Session 10, Verbalizes symptoms of angina & response by session 3., Pt independently manages Plan/Interventions: Assist Pt to ID & engage in lifestyle modification to reduce CVD risk, Instruct on individual risk factors, Review symptoms of angina & emergency actions, Review secondary diagnosis & identify educational needs. - Safety Referral to Physical Therapy: No Referral to [facility] Case Management: No Fall Risk Assessed:: Yes Assistive Devices:: None Exercise - Initial Assessment - Visit Date of Eval: 03/01/20 Session #:: 0 - INITIAL EVALUATION Mets: Pre-: >5 METS for 30 minutes by discharge - Stress Test Date: 03/01/20 Protocol:: CORAZON Resting HR (bpm):: 96 Maximum HR (bpm):: 130 Blood Pressure: 148/80 Maximum Blood Pressure: 160/104 MET LEVEL:: 4.6 - Physician Prescribed Exercise Modalities: Treadmill, Airdyne, NuStep, SciFit Frequency: 3x/week for 12 weeks [36 sessions] Intensity: 60-80% maximum heart rate reserve from GXT Current METSs:: 3.0 Target Heart Rate:: 103-135 Resting Blood Pressure: 118/64 EKG Type: SINUS RHYTHM - Outcomes & Goals Goals:: Verbalizes understanding of THR, RPE & goal METS by session 6, Documents in home exercise log/reports 30 min aerobic 5 day/wk by DC, Demonstrates accurate pulse taking by DC - Intervention & Plan Exercise Program Goals: Instruct on personal THR & RPE, Instruct on MET level & personal MET goal, Instruct on home exercise - Physical Activity Home Exercise Physical Activity - Home Exercise: Safe Exercise, Warm-up, Self-monitoring, Cool-Down, Home Exercise > 30 min Daily, Sitting Time <3 hours/daily - Outcomes & Goals Outcomes/Goals: Demonstrates correct Warm-up/exercise Cool-Down (S3) if = 2.5 METs, Verbalizes symptoms of exercise intolerance by Session 3 (S3), Demonstrate safe equipment use (S3) & follows exercise prescrition (6) - Intervention & Plan Plan/Intervention: Instruct warm-up & cool-down if exercising at > 2 METs, Instruct on symptoms of exercise intolerance & actions to take, Assess intial functional capacity & safety risk Nutrition - Initial Assessment - Program Goals Nutrition Program Goals: LDL <100 optimal. 100 - 129 Near optimal. 130 - 159 Borderline High. 160 - 189 High. Total Cholesterol <200 desirable. 200 - 239 Borderline High. >/= 240 High. HDL < 40 Low >/=60 High. Triglycerides <150 desirable. <199 optimal. VlDL 5 - 40. HgbA1C <7%. BMI <25 Patient has diagnosis of Hyperlipidemia (ICD E78)?: Yes - Visit Date of Assessment:: 03/01/20 Session #:: 0 - INITIAL EVALUATION - Cholesterol/Lipids Determine presence & major risk factors that modify LDL goal: Hypertension or hypertensive medication, Family history of premature CHD in Male < 55 years: female <65 yearsFa, Age men > 45 years; women >/= 55 years Outcomes/Goals: Pt IDs own risk factors & lifestyle modifications by Session 10, Verbalizes symptoms of angina & response by session 3., Pt independently manages Intervention/Plan: Instruct on personal lipid levels & lipid goals/NCEP guidelines, Instruct on cholesterol Referral to dietitian:: Yes - MEDICAL NUTRITION THERAPY + DSM[facility] & MNT - Diabetes (Other Core Measures) Diabetes Type: Diagnosis Type II ICD-10 E11 Fasting blood glucose:: 225 Hgb A1C (4.2 - 6.3): 9.1 Insulin dependent injection/pump?: Yes - ONLY AT HS Non-Insulin Dependent?: Yes - METFORMIN 1,000MG BID Do you monitor your blood sugar at home?: Yes Referral to Diabetic Clinic:: Yes - [facility] & [facility] Outcomes/Goals:: Able to state symptoms of, Able to state, Able to state Intervention/Plan:: Instruct on, Refer to, Instruct on - Weight Mgt (Other Care) Not Applicable: No Height: 5 ft 11 in Weight:: 283 lb BMI: 39.4 Diagnosis Overweight/Obesity BMI> 30% ICD-10 E66: Yes Diagnosis High BMI/Morbid Obesity BMI> 35% ICD-10 Z68: Yes Outcomes/Goals: Pt sets, maintains & shows weight loss goal & trend during rehab Intervention/Plan: Instruct on ideal BMI & set weight loss goal w/patient, Assist pt to ID & incorporate diet changes for weight loss by S9, Refer to Structured Weight Loss program as appropriate, Encourage goal of using 250-300dcal per session for weight loss - Healthy Eating Habits Will attend diet classes:: Yes Outcomes/Goals:: Consume diet rich in vegs,fruits,whole grain/high fiber,fish,lean meat, Limit sat/trans fats,cholesterol & added salts & sugars Intervention/Plan:: Assess current eating habits - Education Gave educational materials for:: Signs & symptoms of hypoglycemia, Signs & symptoms of hyperglycemia, Relate diabetes to coronary artery disease, Healthy eating Medical - Initial Assessment - Visit Date of Eval: 03/01/20 Session #:: 0 - INITIAL EVALUATION - Medication Compliance Preventative Medication(s):: Statin/lipid, Beta ronen, Eliquis H/O mental health issues: depression, anxiety, or addiction?: No Doesn?t believe in the benefits of treatment?: No Believes medications are unnecessary or harmful?: No Has a concern about medication side effects?: No Expresses concern over the cost of medications?: No Outcomes/Goals: Verbalizes medications,desired effect & common side effects @ DC, Pt self-reports following medication regimen, Keeps card in wallet w/medications listed by DC Interventions/plans: Instruct on medication effects & side effects, Review medication list w/patient every two weeks, Instruct importance of taking meds as ordered & assist problem solving - Tobacco Use Tobacco Use: Non-smoker - Hypertension Hypertension Diagnosis:: Hypertension ICD-10 I10 Resting Blood Pressure:: 118/46 [place] [employer] Hypertension Guidelines: [place] [employer] Hypertension Guidelines. Normal BP Less than 120/80. Elevated BP 120/80. Hypertension Stage 1: BP 130-139/80-89. Hypertesnion Stage 2: BP 140 or higher/90 or higher. Hypertension Crisis: BP higher than 180/120 Peak Exercise Blood Pressure:: 160/104 Outcomes/Goals: Able to verbalize/achieve optimal blood pressure <130/80, Incorporates diet changes & exercise for blood pressure control by DC Interventions/plan: Instruct on optimal blood pressure, hypertension & medications, Instruct on effects of sodium, alcohol, stress, exercise &hypertension - Tobacco Cessation Referral Smoking Cessation Referral:: No Individual Education/Counseling:: No Education Schedule Given:: Yes Psychosocial - Initial Assess - VIsit Date of Eval: 03/01/20 Session #:: 0 - INITIAL EVALUATION Not Applicable: Yes History of previous Mental disease:: No - Target Goals Target Goals: Assess presence or absence of depression. Using a valid screening tool, maximizes coping skills. Positive support system - Psychosocial Test Tool Used:: Pamela Blanton QOL Cardiac, PHQ-9 Questionnaire phq-9 Severity: Severity. 1-4 Minimal Depression. 5-9 Mild Depression. 10-14 Moderate Depression. 15-19 Moderately Sever Depression. 20-27 Severe Depression. Rule: - Referral to Behavioral Health PS - Interventions: Yes Referral to Physician if PHQ-9 if score is 5-9: - REFER TO PCP FOR POSITIVE PHQ-9 SCORE OF 10 INDICATING MODERATE DEPRESSION, Yes Attend Stress Management Classes, No Referral to [facility] - Outcomes/Goals: See list Psychosocial Outcomes/Goals:: ID's personal stressors & 2 strategies to manage stress by discharge - Intervention/Plan: See List Interventions/Plan:: Assess stressors,coping strategies & signs of derpression on admission, Instruct/assist pt to develop coping & personal stress Mgt strategies, Instruct patient to recognize signs & symptoms of depression, Instruct patient to recog Patient Health Questionnaire Initial Assessment 1. Little interest or pleasure in doing things: Several days 2. Feeling down, depressed, or hopeless: More than half the days 3. Trouble falling or staying asleep, or sleeping too much: Several days 4. Feeling tired or having little energy: More than half the days 5. Poor appetite or overeating: Several days 6. Feeling bad about yourself -- or that you are a failure or have let yourself or your family down: More than half the days 7. Trouble concentrating on things, such as reading the newspaper or watching television: Several days 8. Moving or speaking so slowly that other people could have noticed. Or the opposite - being so fidgety or restless that you have been moving around a lot more than usual: Not at all 9. Thoughts that you would be better off , or of hurting yourself in some way: Not at all How difficult have these problems made it for you to do your work, take care of things at home, or get along with other people?: Somewhat difficult Total Score: 10 JANIE-Q SV Test - Statements CAD is a disease of the arteries in the heart: False Examples of risk factors for heart disease: True Angina is chest pain or discomfort: True The benefits of resistance training include: True Eating more meat and dairy products: False Anti-platelet medications such as aspirin are important: I Don't Know The only effective way to manage stress: False An exercise warm-up slowly increases heart rate: I Don't Know Prepared, processed foods usually have high sodium: True Depression is common after a heart attack: True The statin medications lower cholesterol: True To control blood pressure, lower the amount of sodium: True If someone gets chest discomfort during walking: False Transfats are partially hydrogenated vegetable oils: False Sleep apnea that is not treated increases the risk: False To control cholesterol, one should become a vegetarian: False Someone knows if he/she is exercising at the right level: I Don't Know Diabetes cannot be prevented with exercise & health eating: True Stress is a large risk for heart attack: True A diet that can help lower blood pressure is rich in: True - Total Score Total Correct Responses: 15 Self-Efficacy Initial Assessment We would like to know how confident you are in doing certain activities. Please select your confidence level for:: Select your confidence level for the following using the scale 1-10 where 1 is not at all confident and 10 is totally confident. Your score is the average of all 6 responses. Fatigue: How confident are you that you can keep the fatigue caused by your disease from interfering with the things you want to do? Select Number: 8 Physical Discomfort or Pain: How confident are you that you can keep the physical discomfort or pain of your disease from interfering with the things you want to do? Select Number: 8 Emotional Distress: How confident are you that you can keep the emotional distress caused by your disease from interfering with the things you want to do? Select Number: 6 Other Symptoms or Health Problems: How confident are you that you can keep other symptoms or health problems from interfering with the things you want to do? Select Number: 6 Different Tasks and Activities: How confident are you that you can do the different tasks and activities needed to manage your health condition so as to reduce your need to see a doctor? Select Number: 8 Medication: How confident are you that you can do things other than just taking medication to reduce how much your illness affects your everyday life? Select Number: 8 Total Score:: 7 Nutrition Survey - Nutrition Survey Instructions Scoring Instructions: Scoring is as follows: Yes = 1 points. No = 0 point. Patient score that is >/=12 is considered to be at potential nutritional risk and could benefit from a referral to a registered dietitian. - Nutrition Survey Initial Have you lost >10 lbs over the past 2 months without trying?: Yes Are you following a special diet at home for diabetes, low fat, or low salt?: Yes Are you interested in meeting with a dietitian for help understanding your diet?: No Do you eat less than 3 meals a day?: No Do you eat fatty meats (ragland, sausage, ribs, etc), fried foods, desserts, large amounts of salad dressings, margarine, butter, or cheese most days?: No Do you have food allergies? [Enter types in comment field]: No Do you eat in restaurants more than 3 times a week?: No Do you season food with salt, seasoning salt, or garlic salt?: No Do you used canned, boxed, frozen meals, or soups, seasoning packets?: No Total Score:: 2
--- NOTE | 2020-03-01 09:55 | CR.HP_ITS ---
CR - History & Physical - General Arrival date:: 03/01/20 Arrival time:: 09:59 Date of Referral:: 02/21/20 Date of CR Evaluation:: 03/01/20 Referring Physician: DR. GALI SCHROEDER Primary Diagnosis: S/P CABG x 4 DR. MACK @ [facility] - History of Present Cardiac Event Onset Date: Enter Onset Date of cardiac illnesses in Comment field below Coronary Artery Bypass Graft:: Yes - 12/26/2019 Heart Failure EF <35%:: Yes - CHRONIC DIASTOLIC (CONGESTIVE) HEART FAILURE Were there any complications?: HEART FAILURE & RESPIRATORY FAILURE W/HYPOXIA, PAROXYSMAL ATRIAL FIB - Medications Home Medications: Ambulatory Orders Medication Instructions Recorded Atorvastatin Calcium [Lipitor] 80 mg PO QHS 11/17/19 Ipratropium [place] 0.06% 1 spray INHALATION DAILY PRN PRN 11/17/19 [ATROVENT NASAL SPRAY] Temazepam 15 mg PO QHS PRN PRN 11/17/19 Insulin Glargine [Lantus SoloStar 10 units SUBCUT QHS 01/20/20 Pen] Metoprolol Tartrate [Lopressor 100 mg PO BID 01/20/20 (beta ronen)] Pantoprazole Sodium [Protonix] 40 mg PO BID 01/20/20 aspirin 81 mg chewable tablet 1 tab PO DAILY@0800 tab 01/20/20 levocetirizine 5 mg tablet 5 mg PO DAILY 01/20/20 losartan 50 mg tablet 50 mg PO DAILY 01/20/20 metformin 1,000 mg tablet 1,000 mg PO BIDCM tab 01/20/20 Acetaminophen [Tylenol] 1,000 mg PO Q6H PRN tab 01/31/20 Apixaban [Eliquis] 5 mg PO BID tab 01/31/20 Furosemide [Lasix] 80 mg PO BIDLX #60 tab 01/31/20 Menthol/Lanolin/Calamine/Znox 1 applic TOPICAL 0600,2200 tube 01/31/20 [Calmoseptine Ointment] Mineral Oil/Petrolatum,White 1 applic TOPICAL QHS jar 01/31/20 [Eucerin] Nystatin Powder [Mycostatin Powder] 1 applic TOPICAL 0600,2200 bottle 01/31/20 Potassium Chloride [K-Dur] 20 meq PO DAILY #30 tab 01/31/20 amiodarone 200 mg tablet 200 mg PO DAILY #90 tab 02/22/20 - Allergies Allergies/Adverse Reactions: Allergies No Known Allergies Allergy (Verified 02/09/20 08:05) - Sleep Disorder Evaluation Hx of Sleep Apnea: Yes Do you snore loudly (louder than talking or can be heard through closed doors)?: Yes - STARTED ON BiPAP DURING RECENT HOSPITAL STAY AND STUDY. SEEING SLEEP LAB TODAY. Do you often feel tired/ fatigued/ sleepy during daytime?: No Has anyone observed you stop breathing during sleep?: No History of Hypertension (for STOP score): Yes STOP Results: Positive Advanced Directives - Advanced Directives Power of Beater Engineer Helper: No Living Will: No Advance Directives Information Provided: Yes Advance Directives on File: No DNR Order?:: No - MOLST See MOLST form: No Past Medical History - Past Medical Illness Medical History: Past Medical History (Last Updated 02/22/20 @ 17:27 by Serena Wilson) Paroxysmal atrial fibrillation (Chronic) Onset Date: 12/2019 I48.0 Atherosclerosis of coronary artery of [place] heart without angina pectoris (Chronic) I25.10 Disruption of closure of sternum or sternotomy (Acute) T81.32XA History of non-ST elevation myocardial infarction (NSTEMI) (Chronic) Onset Date: 01/04/20 I25.2 11/17/2019, 01/04/2020 Chronic diastolic (congestive) heart failure (Chronic) I50.32 Secondary pulmonary arterial hypertension (Chronic) I27.21 Essential (primary) hypertension (Chronic) I10 Hypercholesterolemia (Chronic) E78.00 Anemia (Chronic) D64.9 Thrombocytosis (Chronic) D47.3 Respiratory failure with hypoxia and hypercapnia (Resolved) J96.91, J96.92 Obstructive sleep apnea (Chronic) G47.33 Allergic rhinitis (Chronic) J30.9 Acute on chronic anemia D64.9 Body mass index (BMI) 40.0-44.9, adult Z68.41 Debility R53.81 GERD (gastroesophageal reflux disease) K21.9 Neuropathic pain M79.2 Nonrheumatic aortic (valve) stenosis I35.0 mild Obesity E66.9 Type 2 diabetes mellitus E11.9 Acute exacerbation of CHF (congestive heart failure) (Resolved) I50.9 Acute kidney injury (Resolved) N17.9 Acute respiratory failure with hypoxia Onset Date: 11/17/19 J96.01 Atrial fibrillation with rapid ventricular response Onset Date: 01/04/20 I 48.91 Atrial fibrillation with rapid ventricular response I48.91 Elevated troponin Onset Date: 11/17/19 R79.89 Pulmonary edema J81.1 Atrial flutter with rapid ventricular response I48.92 Arteriosclerotic cardiovascular disease (Inactive) I25.10 Triple vessel coronary artery disease (Inactive) I25.10 - Past Surgical History Surgical History: Past Surgical History (Last Reviewed 02/09/20 @ 08:34 by ADALID Zaidi) H/O coronary artery bypass surgery (Chronic) Onset Date: 12/26/19 Z95.1 CABG x 4: ARREDONDO-LAD, Free ISAK from the D1 SVG-OM1, SVG-D1, SVG-RPDA 12/26/19 History of left heart catheterization Onset Date: 01/04/20 Z98.890 11/18/2019, 01/04/20 Surgical History: coronary bypass surgery - x 4. - Family History Summary Family History: Family History (Last Reviewed 02/09/20 @ 08:34 by ADALID Zaidi) Mother Hypertension Father Hypertension Heart disease Social History - Smoking History Smoking Status: Never smoker Hx Tobacco Use: No Hx Smoking Exposure: No - Alcohol Use Alcohol Usage: No - Substance Abuse Hx Substance Use: No - Occupation Occupation (List type of work in comments):: Employed Hours worked per day:: 8 - Hobbies, Recreation, Social Activities Hobbies: Sports - GOLFING, Reading, Other - GRANDDAUGHTERS BALL GAMES Recreational Activities: I am able to engage in a few activities Social Environment - Status Marital Status: - Current Living Arrangements Living Environment:: Spouse - Children How many children do you have?: 3 Do any of your children live nearby?: No - [place], [place] AND OUT OF STATE - Safety Do you feel safe in your surroundings?: Yes - Assistance Do you need any assistance at home?: NO Review of Systems - Review of Systems Hints: Right click = Denies ([place]). Left click = Reports ([place]) Review of Present Symptoms: Reports: Shortness of Breath with Exertion - O2 HOME THERAPY AT 2L/min, Operative Discomfort - STERNAL CHEST AREA, Wound Healing, Fatigue, Heart Arrhythmia/Irregularities - PAROXYSMAL ATRIAL FIBRILLATION, CONTROLLED IF TAKING METOPROLOL., Appetite - Normal, Appetite - Special Diet - LOW FAT, LOW COLESTEROL, LOW SODIUM., Sleep - Normal. Denies: Shortness of Breath at Rest, Dizziness/Lightheadedness - Pain Is Patient Pain Free?: Yes Pain Location: none Pain Level: 0/10 Risk Factor Assessment - Chief Complaint Chief Complaint: PATIENT IS A 59 YR OLD MALE OF DR. GALI SCHROEDER WHO RECENTLY HAD A 4 VESSEL CORONARY BYPASS DONE AT [facility] BY DR. MACK ON 12/26/2019. FOLLOWING SURGERY PATIENT EXPERIENCED COMPLICATIONS AND A WAS ADMITTED TO [facility] FOR RESPIRATORY FAILURE W/HYPOXIA SECONDARY TO CHRONIC DIASTOLIC HEART FAILURE. PATIENT IS NOW ON HOME OXYGEN THERAPY AT 2 L/min CONTINUOUS USE. - Vital Signs Temperature: 97.7 F Respiratory Rate: 18 Pulse Ox: 97 - ON 2 LITERS/min Blood Pressure: 118/64 - Pulse Pulse Rate: 85 Pulse Rhythm: Regular - Hypertension Blood Pressure Sitting - Left Arm: 118/64 - Diabetes Diabetic History: Type II, Medication Dependent - METFORMIN, Insulin Dependent - LANTUS INSULIN @ [facility] Nutrition Referral for Diabetes: Yes - Obesity Height: 5 ft 11 in Weight:: 283 lb Weight in Pounds: 283.0 lbs Weight Source: Stated by Patient Body Mass Index (BMI): 39.4 Nutritional Referral for Obesity: Yes - WHY WEIGHT PROGRAM STRUCTURED WEIGHT LOSS - Risk Stratification Risk Guidelines: Lowest Risk: Risk Factor for Smoking, Risk Factor for Hypertension - CONTROLLED, Risk Factor for Sedentary Lifestyle - LOW-MODERATE, Risk Factor for Depression, Moderate Risk: Risk Factor for Sedentary Lifestyle, Highest Risk: Risk Factor for Diabetes - GLUCOSE 225 A1C 9.1 , Risk Factor for Obesity - BMI 39.4 - For Smoking Smoking Risk Guidelines: Smoking Low Risk: None or quit greater than 6 months ago. Smoking Moderate Risk: Smoker or quit 6 months or less ago. Smoking High Risk: Smoker - For Dyslipidemia Dyslipidemia Risk Guidelines: Low Risk: Moderate Risk: High Risk: 15-25% fat 25.1-29% fat >/= 30% fat. <7% sat fat 7-9% sat fat >9% sat fat. <150 mg chol 150-299 mg chol >/= 300 mg chol. LDL <100 LDL 100-129 LDL >/= 130. Chol/HDL ratio <5.0 Chol/HDL ratio 5.0-6.0 Chol/HDL ratio >6.0. Triglycerides <100 Triglycerides 100-149 Triglycerides >/= 150 - For Diabetes Mellitus Diabetes Risk Guidelines: Diabetes Low Risk: HgA1c <6.5% and/or FBG <120. Diabetes Moderate Risk: HgA1c 6.6-7.9% and/or FBG 120-180. Diabetes High Risk: HgA1c >/= 8% and/or FBG >180 - For Obesity/Overweight Obesity/Overweight Risk Guidelines: Obesity Low Risk: BMI <25.0. Obesity Moderate Risk: BMI 25-29.9. Obesity High Risk: BMI >/= 30.0 - For Hypertension Hypertension Risk Guidelines: Hypertension Low Risk: Systolic <120 and Diastolic <80. Hypertension Moderate Risk: Systolic 120-139 and Diastolic 80-89. Hypertension High Risk: Systolic >/= 140 and Diastolic >/= 90 - For Sedentary Lifestyle Sedentary Lifestyle Risk Guidelines: Sedentary Lifestyle Low Risk: >/= 1,500 kcal/week. Sedentary Lifestyle Moderate Risk: 700-1,499 kcal/week. Sedentary Lifestyle High Risk: < 700 kcal/week - For Depression Depression Risk Guidelines: Depression Low Risk: Not clinically depressed. Depression Moderate Risk: Mildly depressed. Depression High Risk: Clinically depressed - Family History Family History: Family History (Last Reviewed 02/09/20 @ 08:34 by ADALID Zaidi) Mother Hypertension Father Hypertension Heart disease Motivation - Motivation to Participate On a scale of 1 to 10, how prepared are you to commit to attending program?: 10 What do you see as barriers to successfully being able to complete the program?: NOT AT THIS TIME What do you see as the benefits of succesfully completing the program? In other words, what do you hope to get out of participating in the program?: FEELING BETTER, GETTING HEALTHIER, RESUMING ACTIVITIES Are there issues you are dealing with that will interfere with completing the program?: OXYGEN Do you have a spouse or signficant other, family or friends who will help support you to complete the program?: YES.
[2020-03-01 10:30] VITALS: BP 118/64; PULSE 85; RESP 18; TEMP 36.5; O2SAT 97; BMI 39.4
[2020-03-01 11:16] VITALS: BP 118/46; BP 118/64; BP 148/80; BP 160/104; BMI 39.4
--- NOTE | 2020-03-01 12:48 | STRESSREP ---
Stress Test Report Exercise stress test--precardiac rehabilitation. Stress protocol: Resting EKG demonstrates atrial fibrillation with a rate of 93 bpm normal intervals are noted occasional premature ventricular complexes noted. The patient exercised according to regular Phi protocol for a total duration of 3 minutes. The maximum heart rate attained was 1 and 37 bpm which was 86% of maximum predicted heart rate the maximum workload was 4.6 metabolic equivalents. At rest there were no ST or T wave changes noted suggest ischemia peak exercise nonspecific ST-T wave changes were noted the patient maintained atrial fibrillation with occasional premature ventricular complexes noted. The resting blood pressure was 148/80 with a peak blood pressure 182/110 mmHg. No chest pain was noted the test was terminated due to shortness of breath. Conclusion: Pre-exercise rehabilitation stress test with no definitive criteria for ischemia. Atrial fibrillation noted. Patient can start cardiac rehabilitation.
== END ==
PROVIDERS: PCP Family Medicine; Referring Provider Internal Medicine Cardiovascular Disease; Visit Provider Internal Medicine Cardiovascular Disease
DX: Z95.1 Presence of aortocoronary bypass graft (principal)

== ENCOUNTER → 2020-03-01 | Outpatient (CLI) | payer OTHER, SELFPAY ==
[2020-02-09 08:00] VITALS: BMI 43.2
== END | disposition home or self-care (01) ==
LOC: SL 11:53
PROVIDERS: PCP Family Medicine; Referring Provider Nurse Practitioner Acute Care; Visit Provider Nurse Practitioner Acute Care
DX: G47.33 Obstructive sleep apnea (adult) (pediatric) (principal)
CPT/HCPCS: 98960; G0463

== ENCOUNTER → 2020-03-01 | Outpatient (CLI) | payer OTHER, SELFPAY ==
[2020-02-09 08:00] VITALS: BMI 43.2
== END | disposition home or self-care (01) ==
LOC: CVS 08:53
PROVIDERS: PCP Family Medicine
DX: Z95.1 Presence of aortocoronary bypass graft (principal)
CPT/HCPCS: 93017

== ENCOUNTER 2020-03-05 15:05 | Outpatient (RCR) | payer OTHER, SELFPAY ==
[2020-03-01 10:30] VITALS: BMI 39.4
[2020-03-01 11:16] VITALS: BMI 39.4
== END 2020-03-06 23:59 ==
LOC: CR 15:05
PROVIDERS: PCP Family Medicine; Referring Provider Internal Medicine Cardiovascular Disease; Visit Provider Internal Medicine Cardiovascular Disease
DX: Z95.1 Presence of aortocoronary bypass graft (principal)
CPT/HCPCS: 93798

== ENCOUNTER → 2020-03-19 | Outpatient (CLI) | payer OTHER, SELFPAY ==
[2020-02-09 08:00] VITALS: BMI 43.2
[2020-03-01 11:16] VITALS: BMI 39.4
[2020-03-08 11:01] VITALS: BMI 39.3
[2020-03-19 13:23] LABS: Absolute Lymphocyte Count 1.24 X10^3/uL (0.83-4.51); Absolute Neutrophil Count 3.3 X10^3/uL (2.0-7.7); Basophil# 0.07 X10^3/uL; Basophil% 1.3 % (0-1); Eosinophil# 0.18 X10^3/uL; Eosinophils% 3.3 % (0-5); Hematocrit 33.1 % (40-54); Hemoglobin 10.6 g/dL (13.0-16.5); Lymphocyte # 1.24 X10^3/ul (4.0); Mean Corpuscular Hgb 28.4 pg (27.0-32.0); Mean Corpuscular Volume 88.7 fL (80-94); Mean Platelet Vol. 11.3 fl (6.2-12.0); Monocyte# 0.55 X10^3/uL; Monocyte% 10.2 % (0-10); NRBC Flagged by Analyzer 0 % (0-5); Neutrophil # 3.34 X10^3/uL (2.7-7.7); Neutrophil % 61.8 % (47-70); Platelet Count 276 K/mm3 (150-450); RBC Distribution Width CV 15.9 % (11.6-14.6); RBC Distribution Width SD 51.7 fl (35.1-43.9); Red Blood Count 3.73 M/mm3 (4.6-6.2); White Blood Count 5.4 K/mm3 (4.4-11.0)
[2020-03-19 13:33] LABS: Anion Gap 9 (5-15); BUN 65 mg/dL (7-18); Calcium,Total 9.2 mg/dL (8.5-10.1); Chloride 92 mmol/L (98-107); Creatinine, Serum 2.32 mg/dL (0.70-1.30); EST Glomerular Filtration Rate 31 mL/min (>60); Est Glom Filt Rate - Afr Amer 37 mL/min (>60); Glucose 240 mg/dL (74-106); Potassium 4.9 mmol/L (3.5-5.1); Sodium Level 133 mmol/L (136-145)
[2020-03-19 13:50] VITALS: PULSE 66; PULSE 68; PULSE 71; PULSE 74; PULSE 83; PULSE 92; PULSE 93; PULSE 96; O2SAT 92; O2SAT 93; O2SAT 94; O2SAT 95; O2SAT 96
--- NOTE | 2020-03-20 14:02 | PCM.PSN.6M ---
PSN 6 Minute Walk Test - 6 Minute Walk Test 6 Minute Walk Test: 6 Minute Walk Test PSN:6-Minute Walk Test Start: 03/19/20 13:50 Freq: Status: Active Protocol: [id number].[id number] Document 03/19/20 13:50 [facility] (Rec: 03/19/20 13:54 [facility] [id number]) 6 Minute Walk Test Date Performed 03/19/20 Time Performed 13:30 Height 5 ft 11 in Weight: 282 lb Weight in Pounds 282.[address]: Kika Mendoza Assistive device used: None Pre-test Oxygen Delivery Method Room Air Pulse Ox (%) 96 Pulse Rate (60-100 beats/min) 66 Dyspnea Fabián Scale (0-10) 0 1st minute Oxygen Delivery Method Room Air Pulse Ox (%) 94 Pulse Rate (60-100 beats/min) 68 Dyspnea Fabián Scale (0-10) 0 Number of Rests Taken 0 2nd minute Oxygen Delivery Method Room Air Pulse Ox (%) 92 Pulse Rate (60-100 beats/min) 74 Dyspnea Fabián Scale (0-10) 1 Number of Rests Taken 0 3rd minute Oxygen Delivery Method Room Air Pulse Ox (%) 93 Pulse Rate (60-100 beats/min) 83 Dyspnea Fabián Scale (0-10) 1 Number of Rests Taken 0 4th minute Oxygen Delivery Method Room Air Pulse Ox (%) 92 Pulse Rate (60-100 beats/min) 92 Dyspnea Fabián Scale (0-10) 1 Number of Rests Taken 0 5th minute Oxygen Delivery Method Room Air Pulse Ox (%) 92 Pulse Rate (60-100 beats/min) 93 Dyspnea Fabián Scale (0-10) 1 Number of Rests Taken 0 6th minute Oxygen Delivery Method Room Air Pulse Ox (%) 93 Pulse Rate (60-100 beats/min) 96 Dyspnea Fabián Scale (0-10) 1 Number of Rests Taken 0 Post-test Oxygen Delivery Method Room Air Pulse Ox (%) 95 Pulse Rate (60-100 beats/min) 71 Dyspnea Fabián Scale (0-10) 0 Full Laps Walked 20 Partial Lap, Number of Tiles Walked 100 Total Distance Walked (ft) 1280 - Interpretation Interpretation: The patient ambulated 1280 feet over the course of 6 minutes beginning on room air without assistive devices or breaks. Pretesting oxygen saturation was noted to be 96% on room air. With ambulation, the rebekah oxygen saturation was 92%. There was no significant exertional oxygen desaturation. - Recommendations Recommendations: There is no indication for the use of supplemental oxygen at this time.
== END | disposition home or self-care (01) ==
LOC: PSN 12:59
PROVIDERS: Nurse Practitioner Family; PCP Family Medicine; Referring Provider Nurse Practitioner Acute Care; Visit Provider Nurse Practitioner Acute Care
DX: D64.9 Anemia, unspecified (principal); I25.10 Atherosclerotic heart disease of native coronary artery without angina pectoris; I48.0 Paroxysmal atrial fibrillation; I11.0 Hypertensive heart disease with heart failure; I50.32 Chronic diastolic (congestive) heart failure; Z95.1 Presence of aortocoronary bypass graft; R06.02 Shortness of breath
CPT/HCPCS: 36415; 80048; 85025; 94618

== ENCOUNTER → 2020-03-23 | Outpatient (CLI) | payer OTHER, SELFPAY ==
[2020-03-01 11:16] VITALS: BMI 39.4
[2020-03-08 11:01] VITALS: BMI 39.3
[2020-03-23 15:08] LABS: Anion Gap 4 (5-15); BUN 62 mg/dL (7-18); BUN/Creat Ratio 30.4 RATIO (10-20); Chloride 99 mmol/L (98-107); Creatinine, Serum 2.04 mg/dL (0.70-1.30); EST Glomerular Filtration Rate 35 mL/min (>60); Est Glom Filt Rate - Afr Amer 43 mL/min (>60); Glucose 270 mg/dL (74-106); Potassium 5.2 mmol/L (3.5-5.1); Sodium Level 133 mmol/L (136-145)
== END | disposition home or self-care (01) ==
LOC: LAB 14:14
PROVIDERS: PCP Family Medicine; Referring Provider Nurse Practitioner Family; Visit Provider Nurse Practitioner Family
DX: D64.9 Anemia, unspecified (principal); I25.10 Atherosclerotic heart disease of native coronary artery without angina pectoris; I50.32 Chronic diastolic (congestive) heart failure
CPT/HCPCS: 36415; 80048

== ENCOUNTER → 2020-03-30 | Outpatient (CLI) | payer OTHER, SELFPAY ==
[2020-03-01 11:16] VITALS: BMI 39.4
[2020-03-08 11:01] VITALS: BMI 39.3
[2020-03-30 15:26] LABS: Anion Gap 4 (5-15); BUN 41 mg/dL (7-18); BUN/Creat Ratio 23.4 RATIO (10-20); Chloride 95 mmol/L (98-107); Creatinine, Serum 1.75 mg/dL (0.70-1.30); EST Glomerular Filtration Rate 42 mL/min (>60); Est Glom Filt Rate - Afr Amer 51 mL/min (>60); Glucose 388 mg/dL (74-106); Potassium 4.1 mmol/L (3.5-5.1); Sodium Level 132 mmol/L (136-145)
== END | disposition home or self-care (01) ==
LOC: LAB 14:15
PROVIDERS: PCP Family Medicine; Referring Provider Nurse Practitioner Family; Visit Provider Nurse Practitioner Family
DX: I11.0 Hypertensive heart disease with heart failure (principal); I50.32 Chronic diastolic (congestive) heart failure; N28.9 Disorder of kidney and ureter, unspecified
CPT/HCPCS: 36415; 80048

== ENCOUNTER 2020-04-06 15:15 | Outpatient (RCR) | payer OTHER, SELFPAY ==
[2020-03-01 10:30] VITALS: BMI 39.4
[2020-03-01 11:16] VITALS: BMI 39.4
--- NOTE | 2020-04-04 08:08 | CR.ITP_ITS ---
Diagnosis - General Information Personal Learning Style:: Written Stage of change r/t lifestyle modifications:: Action Gave educational material for:: Treating Heart Disease, Emotions & Heart Disease, Stress Management & Relaxation, Sleep Disorders & Heart Disease, How T he Heart Works, What it means to have Heart Disease, How Coronary Artery Disease is Diagnosed, Heart Procedures, What Heart Medications Do, Risk Factors & Modifications, Living an Active Life, Nutrition - Education/Goals Cardiac Rehabilitation Goals: 1. Maintain the individual as the primary focus of care. 2. To improve the patient's quality of life. 3. Identification of cardiac risk factors and provide cardiac risk factor management. 4. Enhance the psychosocial status of the patient. 5. Reconditioning enough to allow the patient to resume customary activities. 6. Control symptoms of cardiac disease Scale for measuring improvement of personal goals: Enter appropriate number in Comments. 2 = Unchanged. 3 = Slightly Better. 4 = Moderate Improvement. 5 = Met my Goal - Diagnosis & Disease Process Outcomes/Goals: Pt IDs own risk factors & lifestyle modifications by Session 10, Verbalizes symptoms of angina & response by session 3., Pt independently manages Plan/Interventions: Assist Pt to ID & engage in lifestyle modification to reduce CVD risk, Instruct on individual risk factors, Review symptoms of angina & emergency actions, Review secondary diagnosis & identify educational needs. 30 day Reassessments:: Progressing - Safety Referral to Physical Therapy: No Referral to [facility] Case Management: No Fall Risk Assessed:: Yes Assistive Devices:: None Exercise - 30-day Assessment - Visit Date of Eval: 04/04/20 Session #:: 11 - Physician Prescribed Exercise Modalities: Treadmill, Airdyne, NuStep Frequency: 3x/week for 12 weeks [36 sessions] Intensity: 60-80% of age predicted maximum heart rate reserve Current METSs:: 3.0 Target Heart Rate:: 103-135 Current RPE:: 12-14 Maximum Excercise HR:: 104 Resting Blood Pressure: 128/76 Maximum Exercise Blood Pressure: 148/76 EKG Type: Atrial Fib wiht rare PVCs - Outcomes & Goals Goals:: Verbalizes understanding of THR, RPE & goal METS by session 6, Documents in home exercise log/reports 30 min aerobic 5 day/wk by DC, Demonstrates accurate pulse taking by DC - Intervention & Plan Exercise Program Goals: Instruct on personal THR & RPE, Instruct on MET level & personal MET goal, Show patient to take own pulse /validate performance until accurate, Instruct on home exercise - 30-day Reassessments 30 day Reassessments:: Progressing - Physical Activity Home Exercise Physical Activity - Home Exercise: Safe Exercise, Warm-up, Self-monitoring, Cool-Down, Home Exercise > 30 min Daily, Sitting Time <3 hours/daily - Outcomes & Goals Outcomes/Goals: Demonstrates correct Warm-up/exercise Cool-Down (S3) if = 2.5 METs, Verbalizes symptoms of exercise intolerance by Session 3 (S3), Demonstrate safe equipment use (S3) & follows exercise prescrition (6) - Intervention & Plan Plan/Intervention: Instruct warm-up & cool-down if exercising at > 2 METs, Instruct on symptoms of exercise intolerance & actions to take, Instruct & monitor on saf, Assess intial functional capacity & safety risk - 30-day Reassessments 30 day Reassessments:: Progressing Nutrition - 30-Day Assessment - Program Goals Nutrition Program Goals: LDL <100 optimal. 100 - 129 Near optimal. 130 - 159 Borderline High. 160 - 189 High. Total Cholesterol <200 desirable. 200 - 239 Borderline High. >/= 240 High. HDL < 40 Low >/=60 High. Triglycerides <150 desirable. <199 optimal. VlDL 5 - 40. HgbA1C <7%. BMI <25 Patient has diagnosis of Hyperlipidemia (ICD E78)?: Yes - Visit Date of Assessment:: 04/04/20 Session #:: 11 - Cholesterol/Lipids Triglycerides (mg/dL): 0 - not available Determine presence & major risk factors that modify LDL goal: Hypertension or hypertensive medication, Family history of premature CHD in Male < 55 years: f emale <65 yearsFa, Age men > 45 years; women >/= 55 years Outcomes/Goals: Pt IDs own risk factors & lifestyle modifications by Session 10, Verbalizes symptoms of angina & response by session 3., Pt independently manages Intervention/Plan: Instruct on personal lipid levels & lipid goals/NCEP guidelines, Instruct on cholesterol Referral to dietitian:: Yes - medical nutrition therapy 30-day Reassessments:: Progressing - Diabetes (Other Core Measures) Diabetes Type: Not Applicable - Weight Mgt (Other Care) Not Applicable: No Height: 5 ft 11 in Weight:: 280 lb BMI: 39.0 Diagnosis Overweight/Obesity BMI> 30% ICD-10 E66: Yes Diagnosis High BMI/Morbid Obesity BMI> 35% ICD-10 Z68: Yes Outcomes/Goals: Pt sets, maintains & shows weight loss goal & trend during rehab Intervention/Plan: Instruct on ideal BMI & set weight loss goal w/patient, Assist pt to ID & incorporate diet changes for weight loss by S9, Refer to Structured Weight Loss program as appropriate, Encourage goal of using 250- 300dcal per session for weight loss 30 day Reassessments:: Progressing - Healthy Eating Habits Will attend diet classes:: Yes Outcomes/Goals:: Consume diet rich in vegs,fruits,whole grain/high fiber,fish,lean meat, Limit sat/trans fats,cholesterol & added salts & sugars Intervention/Plan:: Assess current eating habits 30-day Reassessments:: Progressing - Education Gave educational materials for:: Healthy eating Medical- 30-Day Assessment - Visit Date of Eval: 04/04/20 Session #:: 11 - Medication Compliance Preventative Medication(s):: Aspirin, KARISSA inhibitor, Statin/lipid, Beta ronen H/O mental health issues: depression, anxiety, or addiction?: No Doesn?t believe in the benefits of treatment?: No Believes medications are unnecessary or harmful?: No Has a concern about medication side effects?: No Expresses concern over the cost of medications?: No Outcomes/Goals: Verbalizes medications,desired effect & common side effects @ DC, Pt self-reports following medication regimen, Keeps card in wallet w/medications listed by DC Interventions/plans: Instruct on medication effects & side effects, Review medication list w/patient every two weeks, Instruct importance of taking meds as ordered & assist problem solving 30-day Reassessments:: Progressing - Tobacco Use Tobacco Use: Non-smoker - Hypertension Hypertension Diagnosis:: Hypertension ICD-10 I10 Resting Blood Pressure:: 128/76 [place] [employer] Hypertension Guidelines: [place] [employer] Hypertension Guidelines. Normal BP Less than 120/80. Elevated BP 120/80. Hypertension Stage 1: BP 130-139/80-89. Hypertesnion Stage 2: BP 140 or higher/90 or higher. Hypertension Crisis: BP higher than 180/120 Peak Exercise Blood Pressure:: 148/76 Outcomes/Goals: Able to verbalize/achieve optimal blood pressure <130/80, Incorporates diet changes & exercise for blood pressure control by DC Interventions/plan: Instruct on optimal blood pressure, hypertension & med ications, Instruct on effects of sodium, alcohol, stress, exercise &hypertension 30 day Reassessments:: Progressing - Tobacco Cessation Referral Smoking Cessation Referral:: No Individual Education/Counseling:: No Education Schedule Given:: Yes Psychosocial - 30-Day Assess - VIsit Date of Eval: 04/04/20 Session #:: 11 Not Applicable: No History of previous Mental disease:: No - Target Goals Target Goals: Assess presence or absence of depression. Using a valid screening tool, maximizes coping skills. Positive support system - Psychosocial Test Tool Used:: Pamela Blanton QOL Cardiac, PHQ-9 Questionnaire phq-9 Severity: Severity. 1-4 Minimal Depression. 5-9 Mild Depression. 10-14 Moderate Depression. 15-19 Moderately Sever Depression. 20-27 Severe Depression. Rule: See PHQ-9 Score: 10 - PHQ-9 indicates Moderate Depression - Referral to Behavioral Health PS - Interventions: Yes Referral to Physician if PHQ-9 if score is 5-9: - Refer to Dr. Josué Rodriguez, Yes Attend Stress Management Classes, No Referral to Behavioral Health if PHQ-9 score >9:, No Referral to [facility] - Outcomes/Goals: See list Psychosocial Outcomes/Goals:: ID's personal stressors & 2 strategies to manage stress by discharge - Intervention/Plan: See List Interventions/Plan:: Assess stressors,coping strategies & signs of derpression on admission, Instruct/assist pt to develop coping & personal stress Mgt strategies, Instruct patient to recognize signs & symptoms of depression, Instruct patient to recog - 30-day Reassessments: 30 day Reassessments:: Progressing Patient Health Questionnaire 30-Day Re-eval Assessment 1. Little interest or pleasure in doing things: Several days 2. Feeling down, depressed, or hopeless: More than half the days 3. Trouble falling or staying asleep, or sleeping too much: Several days 4. Feeling tired or having little energy: More than half the days 5. Poor appetite or overeating: Several days 6. Feeling bad about yourself -- or that you are a failure or have let yourself or your family down: More than half the days 7. Trouble concentrating on things, such as reading the newspaper or watching television: Several days 8. Moving or speaking so slowly that other people could have noticed. Or the op posite - being so fidgety or restless that you have been moving around a lot more than usual: Not at all 9. Thoughts that you would be better off , or of hurting yourself in some way: Not at all How difficult have these problems made it for you to do your work, take care of things at home, or get along with other people?: Somewhat difficult Total Score: 10 Self-Efficacy 30-Day Re-eval Assessment We would like to know how confident you are in doing certain activities. Please select your confidence level for:: Select your confidence level for the following using the scale 1-10 where 1 is not at all confident and 10 is totally confident. Your score is the average of all 6 responses. Fatigue: How confident are you that you can keep the fatigue caused by your disease from interfering with the things you want to do? Select Number: 8 Physical Discomfort or Pain: How confident are you that you can keep the physical discomfort or pain of your disease from interfering with the things you want to do? Select Number: 8 Emotional Distress: How confident are you that you can keep the emotional distress caused by your disease from interfering with the things you want to do? Select Number: 8 Other Symptoms or Health Problems: How confident are you that you can keep other symptoms or health problems from interfering with the things you want to do? Select Number: 8 Different Tasks and Activities: How confident are you that you can do the different tasks and activities needed to manage your health condition so as to reduce your need to see a doctor? Select Number: 8 Medication: How confident are you that you can do things other than just taking medication to reduce how much your illness affects your everyday life? Select Number: 8 Total Score:: 8
[2020-04-04 08:20] VITALS: BP 128/76; BP 148/76; BMI 39.0
== END 2020-04-06 23:59 ==
LOC: CR 15:15
PROVIDERS: PCP Family Medicine; Referring Provider Internal Medicine Cardiovascular Disease; Visit Provider Internal Medicine Cardiovascular Disease
DX: Z95.1 Presence of aortocoronary bypass graft (principal)
CPT/HCPCS: 93798

== ENCOUNTER 2020-05-04 15:15 | Outpatient (RCR) | payer OTHER, SELFPAY ==
[2020-03-08 11:01] VITALS: BMI 39.3
[2020-04-04 08:20] VITALS: BMI 39.0
[2020-04-07 00:37] VITALS: BP 128/76; BP 148/76
--- NOTE | 2020-04-30 10:06 | CR.ITP_ITS ---
Exercise - 60-day Assessment - Visit Date of Eval: 04/30/20 Session #:: 21 - Physician Prescribed Exercise Modalities: Treadmill, Airdyne, NuStep Frequency: 3x/week for 12 weeks [36 sessions] Intensity: 60-80% of age predicted maximum heart rate reserve Current METSs:: 3.0 unchanged Target Heart Rate:: 103-135 Current RPE:: 12-13 Maximum Excercise HR:: 105 Resting Blood Pressure: 146/82 - uncontrolled with medication Maximum Exercise Blood Pressure: 180/80 EKG Type: atrial fibrillation w/controlled rate occasional ventricular ectopy. - Outcomes & Goals Goals:: Verbalizes understanding of THR, RPE & goal METS by session 6, Documents in home exercise log/reports 30 min aerobic 5 day/wk by DC, Demonstrates accurate pulse taking by DC - Intervention & Plan Exercise Program Goals: Instruct on personal THR & RPE, Instruct on MET level & personal MET goal, Show patient to take own pulse /validate performance until accurate, Instruct on home exercise - 30-day Reassessments 30 day Reassessments:: Progressing - Physical Activity Home Exercise Physical Activity - Home Exercise: Safe Exercise, Warm-up, Self-monitoring, Cool-Down, Home Exercise > 30 min Daily, Sitting Time <3 hours/daily - Outcomes & Goals Outcomes/Goals: Demonstrates correct Warm-up/exercise Cool-Down (S3) if = 2.5 METs, Verbalizes symptoms of exercise intolerance by Session 3 (S3), Demonstrate safe equipment use (S3) & follows exercise prescrition (6) - Intervention & Plan Plan/Intervention: Instruct warm-up & cool-down if exercising at > 2 METs, Instruct on symptoms of exercise intolerance & actions to take, Instruct & monitor on saf, Assess intial functional capacity & safety risk - 30-day Reassessments 30 day Reassessments:: Progressing Nutrition - 60-Day Assessment - Program Goals Nutrition Program Goals: LDL <100 optimal. 100 - 129 Near optimal. 130 - 159 Borderline High. 160 - 189 High. Total Cholesterol <200 desirable. 200 - 239 Borderline High. >/= 240 High. HDL < 40 Low >/=60 High. Triglycerides <150 desirable. <199 optimal. VlDL 5 - 40. HgbA1C <7%. BMI <25 Patient has diagnosis of Hyperlipidemia (ICD E78)?: Yes - Visit Date of Assessment:: 08/24/20 Session #:: 21 - no recent update to labs - Cholesterol/Lipids Determine presence & major risk factors that modify LDL goal: Hypertension or hypertensive medication, Age men > 45 years; women >/= 55 years Outcomes/Goals: Pt IDs own risk factors & lifestyle modifications by Session 10, Verbalizes symptoms of angina & response by session 3., Pt independently manages Intervention/Plan: Instruct on personal lipid levels & lipid goals/NCEP guidelines, Instruct on cholesterol Referral to dietitian:: Yes - Diabetes (Other Core Measures) Diabetes Type: Diagnosis Type II ICD-10 E11 Fasting blood glucose:: 225 Hgb A1C (4.2 -6.3): 9.1 Insulin dependent injection/pump?: Yes - lantus Non-Insulin Dependent?: Yes - metformin Do you monitor your blood sugar at home?: Yes Referral to Diabetic Clinic:: Yes Outcomes/Goals:: Able to state symptoms of, Able to state, Able to state Intervention/Plan:: Instruct on, Refer to, Instruct on 30-day Reassessments:: Progressing - Weight Mgt (Other Care) Not Applicable: No Height: 5 ft 11 in Weight:: 284 lb BMI: 39.6 Diagnosis Overweight/Obesity BMI> 30% ICD-10 E66: Yes Diagnosis High BMI/Morbid Obesity BMI> 35% ICD-10 Z68: Yes Outcomes/Goals: Pt sets, maintains & shows weight loss goal & trend during rehab Intervention/Plan: Instruct on ideal BMI & set weight loss goal w/patient, Assist pt to ID & incorporate diet changes for weight loss by S9, Refer to Structured Weight Loss program as appropriate, Encourage goal of using 250- 300dcal per session for weight loss 30 day Reassessments:: Not Met - Healthy Eating Habits Will attend diet classes:: Yes Outcomes/Goals:: Consume diet rich in vegs,fruits,whole grain/high fiber,fish,lean meat, Limit sat/trans fats,cholesterol & added salts & sugars Intervention/Plan:: Assess current eating habits 30-day Reassessments:: Progressing - Education Gave educational materials for:: Healthy eating Medical- 60-Day Assessment - Visit Date of Eval: 04/30/20 Session #:: 21 - Medication Compliance Preventative Medication(s):: Aspirin, Statin/lipid, Beta ronen, Eliquis H/O mental health issues: depression, anxiety, or addiction?: No Doesn?t believe in the benefits of treatment?: No Believes medications are unnecessary or harmful?: No Has a concern about medication side effects?: No Expresses concern over the cost of medications?: No Outcomes/Goals: Verbalizes medications,desired effect & common side effects @ DC, Pt self-reports following medication regimen, Keeps card in wallet w/medications listed by DC Interventions/plans: Instruct on medication effects & side effects, Review medication list w/patient every two weeks, Instruct importance of taking meds as ordered & assist problem solving 30-day Reassessments:: Progressing - Tobacco Use Tobacco Use: Non-smoker - Hypertension Hypertension Diagnosis:: Hypertension ICD-10 I10 Resting Blood Pressure:: 146/82 [place] [employer] Hypertension Guidelines: [place] [employer] Hypertension Guidelines. Normal BP Less than 120/80. Elevated BP 120/80. Hypertension Stage 1: BP 130-139/80-89. Hypertesnion Stage 2: BP 140 or higher/90 or higher. Hypertension Crisis: BP higher than 180/120 Peak Exercise Blood Pressure:: 180/80 Outcomes/Goals: Able to verbalize/achieve optimal blood pressure <130/80, Incorporates diet changes & exercise for blood pressure control by DC Interventions/plan: Instruct on optimal blood pressure, hypertension & medications, Instruct on effects of sodium, alcohol, stress, exercise &hypertension 30 day Reassessments:: Progressing - Tobacco Cessation Referral Smoking Cessation Referral:: No Individual Education/Counseling:: No Education Schedule Given:: Yes Psychosocial - 60-Day Assess - VIsit Date of Eval: 04/30/20 Session #:: 21 Not Applicable: Yes History of previous Mental disease:: No - Target Goals Target Goals: Assess presence or absence of depression. Using a valid screening tool, maximizes coping skills. Positive support system - Psychosocial Test Tool Used:: Pamela Blanton QOL Cardiac, PHQ-9 Questionnaire phq-9 Severity: Severity. 1-4 Minimal Depression. 5-9 Mild Depression. 10-14 Moderate Depression. 15-19 Moderately Sever Depression. 20-27 Severe Depre ssion. Rule: - Referral to Behavioral Health PS - Interventions: Yes Referral to Physician if PHQ-9 if score is 5-9: - Refer to PCP PHQ-9 indicates moderate depression score, Yes Attend Stress Management Classes, No Referral to Behavioral Health if PHQ-9 score >9:, No Referral to [facility] - Outcomes/Goals: See list Psychosocial Outcomes/Goals:: ID's personal stressors & 2 strategies to manage stress by discharge - Intervention/Plan: See List Interventions/Plan:: Assess stressors,coping strategies & signs of derpression on admission, Instruct/assist pt to develop coping & personal stress Mgt strategies, Instruct patient to recognize signs & symptoms of depression, Instruct patient to recog - 30-day Reassessments: 30 day Reassessments:: Progressing Patient Health Questionnaire 60-Day Re-eval Assessment 1. Little interest or pleasure in doing things: Several days 2. Feeling down, depressed, or hopeless: More than half the days 3. Trouble falling or staying asleep, or sleeping too much: Several days 4. Feeling tired or having little energy: More than half the days 5. Poor appetite or overeating: Several days 6. Feeling bad about yourself -- or that you are a failure or have let yourself or your family down: More than half the days 7. Trouble concentrating on things, such as reading the newspaper or watching television: Several days 8. Moving or speaking so slowly that other people could have noticed. Or the opposite - being so fidgety or restless that you have been moving around a lot more than usual: Not at all 9. Thoughts that you would be better off , or of hurting yourself in some way: Not at all How difficult have these problems made it for you to do your work, take care of things at home, or get along with other people?: Somewhat difficult Total Score: 10 Self-Efficacy 60-Day Re-eval Assessment We would like to know how confident you are in doing certain activities. Please select your confidence level for:: Select your confidence level for the following using the scale 1-10 where 1 is not at all confident and 10 is totally confident. Your score is the average of all 6 responses. Fatigue: How confident are you that you can keep the fatigue caused by your disease from interfering with the things you want to do? Select Number: 8 Physical Discomfort or Pain: How confident are you that you can keep the physical discomfort or pain of your disease from interfering with the things you want to do? Select Number: 9 Emotional Distress: How confident are you that you can keep the emotional distre ss caused by your disease from interfering with the things you want to do? Select Number: 9 Other Symptoms or Health Problems: How confident are you that you can keep other symptoms or health problems from interfering with the things you want to do? Select Number: 8 Different Tasks and Activities: How confident are you that you can do the different tasks and activities needed to manage your health condition so as to reduce your need to see a doctor? Select Number: 8 Medication: How confident are you that you can do things other than just taking medication to reduce how much your illness affects your everyday life? Select Number: 9 Total Score:: 8
[2020-04-30 10:16] VITALS: BP 146/82; BP 180/80; BMI 39.6
== END 2020-05-07 23:59 ==
LOC: CR 15:15
PROVIDERS: PCP Family Medicine; Referring Provider Internal Medicine Cardiovascular Disease; Visit Provider Internal Medicine Cardiovascular Disease
DX: Z95.1 Presence of aortocoronary bypass graft (principal)
CPT/HCPCS: 93798

== ENCOUNTER → 2020-05-29 | Outpatient (CLI) | payer OTHER, SELFPAY ==
[2020-04-30 10:16] VITALS: BMI 39.6
[2020-05-29 05:40] VITALS: BMI 39.2
--- NOTE | 2020-05-29 09:35 | RAD_ITS ---
STUDY: X-RAY CHEST REASON FOR EXAM: Male, 60 years old. Shortness of breath. TECHNIQUE: PA and lateral chest. COMPARISON: February 21, 2020. FINDINGS: Stable small to moderate right pleural effusion best appreciated on the lateral view. Left lung well aerated. No focal infiltrates. Stable mild cardiomegaly. Normal mediastinum and riana. Normal visualized pulmonary arteries. Normal visualized aortic arch and descending thoracic aorta. Normal visualized thoracic spine. Normal visualized ribs, clavicles, and shoulders. Sternal wires are present. There is no demonstrated abnormality of the visualized soft tissue structures of the upper abdomen. RAD/Chest PA and Lateral IMPRESSION: Stable small to moderate right pleural effusion. Stable mild cardiomegaly. Electronically Signed: Ravinder Warren MD at 0:10 EDT , Service support ,
== END | disposition home or self-care (01) ==
LOC: RAD 09:35
PROVIDERS: PCP Family Medicine; Referring Provider Internal Medicine Critical Care Medicine; Visit Provider Internal Medicine Critical Care Medicine
DX: G47.33 Obstructive sleep apnea (adult) (pediatric) (principal); I27.21 Secondary pulmonary arterial hypertension; I50.32 Chronic diastolic (congestive) heart failure
CPT/HCPCS: 71046

== ENCOUNTER 2020-06-01 15:15 | Outpatient (RCR) | payer OTHER, SELFPAY ==
[2020-03-08 11:01] VITALS: BMI 39.3
[2020-04-30 10:16] VITALS: BMI 39.6
[2020-05-08 00:38] VITALS: BP 146/82; BP 180/80
[2020-05-29 05:40] VITALS: BMI 39.2
--- NOTE | 2020-05-30 06:57 | PCM.CR.ITP ---
Exercise - 90-day Assessment - Visit Date of Eval: 05/30/20 Session #:: 34 - Physician Prescribed Exercise Modalities: Treadmill, Airdyne, NuStep Frequency: 3x/week for 12 weeks [36 sessions] Intensity: 60-80% of age predicted maximum heart rate reserve Current METSs:: 3.7 unchanged Target Heart Rate:: 103-135 Current RPE:: 14 Maximum Excercise HR:: 98 Resting Blood Pressure: 128/72 - controlled onmedication Maximum Exercise Blood Pressure: 148/72 EKG Type: NSR to sinus tach underlying atrail fib with rare PVC - Outcomes & Goals Goals:: Verbalizes understanding of THR, RPE & goal METS by session 6, Documents in home exercise log/reports 30 min aerobic 5 day/wk by DC, Demonstrates accurate pulse taking by DC - Intervention & Plan Exercise Program Goals: Instruct on personal THR & RPE, Instruct on MET level & personal MET goal, Show patient to take own pulse /validate performance until accurate, Instruct on home exercise - 30-day Reassessments 30 day Reassessments:: Met - Physical Activity Home Exercise Physical Activity - Home Exercise: Safe Exercise, Warm-up, Self-monitoring, Cool-Down, Home Exercise > 30 min Daily, Sitting Time <3 hours/daily - Outcomes & Goals Outcomes/Goals: Demonstrates correct Warm-up/exercise Cool-Down (S3) if = 2.5 METs, Verbalizes symptoms of exercise intolerance by Session 3 (S3), Demonstrate safe equipment use (S3) & follows exercise prescrition (6) - Intervention & Plan Plan/Intervention: Instruct warm-up & cool-down if exercising at > 2 METs, Instruct on symptoms of exercise intolerance & actions to take, Instruct & monitor on saf, Assess intial functional capacity & safety risk - 30-day Reassessments 30 day Reassessments:: Met Nutrition - 90-Day Assessment - Program Goals Nutrition Program Goals: LDL <100 optimal. 100 - 129 Near optimal. 130 - 159 Borderline High. 160 - 189 High. Total Cholesterol <200 desirable. 200 - 239 Borderline High. >/= 240 High. HDL < 40 Low >/=60 High. Triglycerides <150 desirable. <199 optimal. VlDL 5 - 40. HgbA1C <7%. BMI <25 Patient has diagnosis of Hyperlipidemia (ICD E78)?: Yes - Visit Date of Assessment:: 05/30/20 Session #:: 34 - no updated labs available - Cholesterol/Lipids Determine presence & major risk factors that modify LDL goal: Hypertension or hypertensive medication, Age men > 45 years; women >/= 55 years Outcomes/Goals: Pt IDs own risk factors & lifestyle modifications by Session 10, Verbalizes symptoms of angina & response by session 3., Pt independently manages Intervention/Plan: Instruct on personal lipid levels & lipid goals/NCEP guidelines, Instruct on cholesterol Referral to dietitian:: No 30-day Reassessments:: Progressing - Diabetes (Other Core Measures) Diabetes Type: Not Applicable - Weight Mgt (Other Care) Not Applicable: No Height: 5 ft 11 in Weight:: 281 lb BMI: 39.2 Diagnosis Overweight/Obesity BMI> 30% ICD-10 E66: Yes Diagnosis High BMI/Morbid Obesity BMI> 35% ICD-10 Z68: Yes Outcomes/Goals: Pt sets, maintains & shows weight loss goal & trend during rehab Intervention/Plan: Instruct on ideal BMI & set weight loss goal w/patient, Assist pt to ID & incorporate diet changes for weight loss by S9, Encourage goal of using 250-300dcal per session for weight loss 30 day Reassessments:: Progressing - Healthy Eating Habits Will attend diet classes:: Yes Outcomes/Goals:: Consume diet rich in vegs,fruits,whole grain/high fiber,fish,lean meat, Limit sat/trans fats,cholesterol & added salts & sugars Intervention/Plan:: Assess current eating habits 30-day Reassessments:: Progressing - Education Gave educational materials for:: Healthy eating Medical- 90-Day Assessment - Visit Date of Eval: 05/30/20 Session #:: 34 - Medication Compliance Preventative Medication(s):: Aspirin, Statin/lipid, Beta ronen H/O mental health issues: depression, anxiety, or addiction?: No Doesn?t believe in the benefits of treatment?: No Believes medications are unnecessary or harmful?: No Has a concern about medication side effects?: No Expresses concern over the cost of medications?: No Outcomes/Goals: Verbalizes medications,desired effect & common side effects @ DC, Pt self-reports following medication regimen, Keeps card in wallet w/medications listed by DC Interventions/plans: Instruct on medication effects & side effects, Review medication list w/patient every two weeks, Instruct importance of taking meds as ordered & assist problem solving - Tobacco Use Tobacco Use: Non-smoker - Hypertension Hypertension Diagnosis:: Hypertension ICD-10 I10 Resting Blood Pressure:: 128/72 [place] [employer] Hypertension Guidelines: [place] [employer] Hypertension Guidelines. Normal BP Less than 120/80. Elevated BP 120/80. Hypertension Stage 1: BP 130-139/80-89. Hypertesnion Stage 2: BP 140 or higher/90 or higher. Hypertension Crisis: BP higher than 180/120 Peak Exercise Blood Pressure:: 148/72 Outcomes/Goals: Able to verbalize/achieve optimal blood pressure <130/80, Incorporates diet changes & exercise for blood pressure control by DC Interventions/plan: Instruct on optimal blood pressure, hypertension & medications, Instruct on effects of sodium, alcohol, stress, exercise &hypertension 30 day Reassessments:: Progressing - Tobacco Cessation Referral Smoking Cessation Referral:: No Individual Education/Counseling:: No Education Schedule Given:: Yes Psychosocial - 90-Day Assess - VIsit Date of Eval: 05/30/20 Session #:: 34 Not Applicable: Yes - Target Goals Target Goals: Assess presence or absence of depression. Using a valid screening tool, maximizes coping skills. Positive support system - Psychosocial Test Tool Used:: PHQ-9 Questionnaire phq-9 Severity: Severity. 1-4 Minimal Depression. 5-9 Mild Depression. 10-14 Moderate Depression. 15-19 Moderately Sever Depression. 20-27 Severe Depression. Rule: - Referral to Behavioral Health PS - Interventions: Yes Attend Stress Management Classes, No Referral to Behavioral Health if PHQ-9 score >9:, No Referral to [facility], No Referral to Physician if PHQ-9 if score is 5-9: - Outcomes/Goals: See list Psychosocial Outcomes/Goals:: ID's personal stressors & 2 strategies to manage stress by discharge - Intervention/Plan: See List Interventions/Plan:: Assess stressors,coping strategies & signs of derpression on admission, Instruct/assist pt to develop coping & personal stress Mgt strategies, Instruct patient to recognize signs & symptoms of depression, Instruct patient to recog - 30-day Reassessments: 30 day Reassessments:: Progressing Patient Health Questionnaire 90-Day Re-eval Assessment 1. Little interest or pleasure in doing things: Several days 2. Feeling down, depressed, or hopeless: More than half the days 3. Trouble falling or staying asleep, or sleeping too much: Several days 4. Feeling tired or having little energy: More than half the days 5. Poor appetite or overeating: Several days 6. Feeling bad about yourself -- or that you are a failure or have let yourself or your family down: More than half the days 7. Trouble concentrating on things, such as reading the newspaper or watching television: Several days 8. Moving or speaking so slowly that other people could have noticed. Or the opposite - being so fidgety or restless that you have been moving around a lot more than usual: Not at all 9. Thoughts that you would be better off , or of hurting yourself in some way: Not at all How difficult have these problems made it for you to do your work, take care of things at home, or get along with other people?: Somewhat difficult Total Score: 10 Self-Efficacy 90-Day Re-eval Assessment We would like to know how confident you are in doing certain activities. Please select your confidence level for:: Select your confidence level for the following using the scale 1-10 where 1 is not at all confident and 10 is totally confident. Your score is the average of all 6 responses. Fatigue: How confident are you that you can keep the fatigue caused by your disease from interfering with the things you want to do? Select Number: 9 Physical Discomfort or Pain: How confident are you that you can keep the physical discomfort or pain of your disease from interfering with the things you want to do? Select Number: 9 Emotional Distress: How confident are you that you can keep the emotional distress caused by your disease from interfering with the things you want to do? Select Number: 10 Other Symptoms or Health Problems: How confident are you that you can keep other symptoms or health problems from interfering with the things you want to do? Select Number: 10 Different Tasks and Activities: How confident are you that you can do the different tasks and activities needed to manage your health condition so as to reduce your need to see a doctor? Select Number: 10 Medication: How confident are you that you can do things other than just taking medication to reduce how much your illness affects your everyday life? Select Number: 10 Total Score:: 9
[2020-05-30 07:03] VITALS: BP 128/72; BP 148/72; BMI 39.2
== END 2020-06-06 23:59 ==
LOC: CR 15:15
PROVIDERS: PCP Family Medicine; Referring Provider Internal Medicine Cardiovascular Disease; Visit Provider Internal Medicine Cardiovascular Disease
DX: Z95.1 Presence of aortocoronary bypass graft (principal)
CPT/HCPCS: 93798

== ENCOUNTER → 2020-06-20 | Outpatient (CLI) | payer OTHER, SELFPAY ==
[2020-05-30 07:03] VITALS: BMI 39.2
[2020-06-19 09:05] VITALS: BMI 38.9
[2020-06-20 09:57] LABS: Absolute Lymphocyte Count 1.35 X10^3/uL (0.83-4.51); Absolute Neutrophil Count 3.8 X10^3/uL (2.0-7.7); Basophil# 0.07 X10^3/uL; Basophil% 1.2 % (0-1); Eosinophil# 0.16 X10^3/uL; Eosinophils% 2.7 % (0-5); Hematocrit 34.6 % (40-54); Hemoglobin 10.9 g/dL (13.0-16.5); Lymphocyte # 1.35 X10^3/ul (4.0); Lymphocyte % 22.8 % (19-41); Mean Corp Hgb Conc 31.5 g/dL (32-36); Mean Corpuscular Hgb 29.9 pg (27.0-32.0); Mean Corpuscular Volume 94.8 fL (80-94); Mean Platelet Vol. 11.6 fl (6.2-12.0); Monocyte# 0.53 X10^3/uL; NRBC Flagged by Analyzer 0 % (0-5); Neutrophil # 3.79 X10^3/uL (2.7-7.7); Platelet Count 237 K/mm3 (150-450); RBC Distribution Width CV 13.4 % (11.6-14.6); RBC Distribution Width SD 46.7 fl (35.1-43.9); Red Blood Count 3.65 M/mm3 (4.6-6.2); White Blood Count 5.9 K/mm3 (4.4-11.0)
[2020-06-20 10:06] LABS: International Normalized Ratio 1.4; Prothrombin Time (Protime)PT. 16.5 SECONDS (11.7-14.9)
[2020-06-20 10:19] LABS: ALB/GLOB Ratio 0.9 RATIO (0.9-2.4); AST(SGOT) 15 U/L (15-37); Alanine Aminotransfer ALT/SGPT 25 U/L (16-61); Albumin, Serum 3.5 g/dL (3.2-5.0); Alkaline Phosphatase 112 U/L (45-117); Anion Gap 5 (5-15); BUN 54 mg/dL (7-18); BUN/Creat Ratio 27.1 RATIO (10-20); Calcium,Total 8.7 mg/dL (8.5-10.1); Chloride 99 mmol/L (98-107); Cholesterol 127 mg/dL (200); Creatinine, Serum 1.99 mg/dL (0.70-1.30); EST Glomerular Filtration Rate 36 mL/min (>60); Est Glom Filt Rate - Afr Amer 44 mL/min (>60); Glucose 182 mg/dL (74-106); High Density Lipoprotein 36 mg/dL; Potassium 4.4 mmol/L (3.5-5.1); Protein, Total 7.5 g/dL (6.4-8.2); Sodium Level 138 mmol/L (136-145); Triglycerides 102 mg/dL; Very Low Density Lipoprotein 20 mg/dL (5-40)
[2020-06-28 12:07] LABS: Testosterone, Free 3.78 ng/dL (5.00-21.00)
[2020-06-28 13:10] LABS: Testosterone, % Free 2.15 % (1.50-4.20); Testosterone, Total 176 ng/dL (264-916)
== END | disposition home or self-care (01) ==
LOC: MFPLAB 08:49
PROVIDERS: Nurse Practitioner Family; PCP Family Medicine; Referring Provider Family Medicine; Visit Provider Family Medicine
DX: I48.0 Paroxysmal atrial fibrillation (principal); E11.69 Type 2 diabetes mellitus with other specified complication; R80.9 Proteinuria, unspecified; E29.1 Testicular hypofunction
CPT/HCPCS: 36415; 80053; 80061; 84402; 84403; 84443; 85025; 85610

== ENCOUNTER 2020-07-13 10:19 | Day surgery (SDC) | payer OTHER, SELFPAY ==
[2020-05-30 07:03] VITALS: BMI 39.2
[2020-06-19 09:05] VITALS: BMI 38.9
[2020-07-12 09:35] VITALS: BMI 38.9
--- NOTE | 2020-07-13 06:11 | HP_ITS ---
[facility] History of Present Illness Details: The patient is a 60 year old M who presents today for a cardiovascular outpatient follow-up. He is rather complicated and has had a stormy postoperative course. He is a gentleman with a known cardiac history who had undergone cardiac catheterization in November 2019. He had triple-vessel disease and underwent a cardiac bypass surgery in December 2019. He was discharged and was admitted to the hospital on 01/04/2020. He was noted to be dyspneic when he presented was noted to be in atrial fibrillation with a rapid ventricular response rate had evidence of respiratory distress and hypercapnia poor inspiratory effort requiring BiPAP. He was evaluated and underwent an echocardiogram which demonstrated preserved ejection fraction of 65%, normal RV size, and no evidence of pericardial effusion. He was treated with intravenous heparin and amiodarone and during the hospitalization developed chest pain and EKG changes necessitating an emergent cardiac catheterization. It demonstrated a patent left internal mammary artery to the left anterior descending artery, a saphenous vein graft attached to the right internal mammary artery and subsequently attached to the diagonal vessel and obtuse marginal vessels which were patent and a saphenous vein graft to the right coronary artery. The anastomotic zone was noted to have a probable moderate to severe stenosis but it was determined that it should be left untouched due to distal mild disease as well as small vessels. He recovered and was subsequently discharged. He presented back to the hospital 2 days later with shortness of breath was noted to be hypercapnic requiring BiPAP and still had elevated troponin. His EKG demonstrated atrial fibrillation with a controlled ventricular response rate no acute EKG changes were noted. He was treated medically and subsequently transferred to the progressive care unit. He developed acute respiratory failure with severe anemia with a hemoglobin down to 7.2 and needed to be transferred back to the intensive care unit. He was transfused with 3 units of packed red blood cells. COVID testing was negative again. There was a plan to possibly perform an endoscopy but this was deferred by the surgeon. He did better after his transfusion and was diuresed. His kidney function which had deteriorated actually improved and on the day of discharge his creatinine was noted to be 0.98. His hemoglobin was up to 10.7. He underwent a stress EKG on 03/01/2020 that was negative for signs of ischemia and showed atrial fibrillation. He uses Bipap. Throughout cardiac rehab his heart rate has been well controlled. His blood pressure has also been well controlled, but fluctuated. His rhythm predominantly remained in atrial fibrillation. He states intermittent chest pain at incision site. He denies arm, jaw, or neck discomfort. His exercise tolerance is stable. He denies symptoms of CHF, palpitations, dizziness, near syncope, or syncopal episodes. He denies edema or claudication issues. He denies orthopnea, PND, blood in urine, blood in stool, or myalgia. He states every now and then that resolves on its own. He states one episode of lightheadedness with quick position change. Intake Vital Signs 06/19/20 Height 5 ft 11 in 06/19/20 Weight: 279 lb 06/19/20 BMI 38.9 06/19/20 BP 114/73 06/19/20 Blood Pressure Location Lt brachial 06/19/20 Position Sitting 06/19/20 Respiration 18 06/19/20 Pulse 63 06/19/20 Pulse Source Monitor 06/19/20 Pulse Oximetry (%) 97 Intake Visit Reasons: 3 M FU Cardiology Clinical Consultant Required: No Is patient in pain?: No Allergies No Known Allergies Allergy (Verified 06/19/20 09:03) [facility] Medical History (Updated 05/29/20 @ 09:[address] Phi Sutherland MD) Paroxysmal atrial fibrillation (Chronic 12/2019) Atherosclerosis of coronary artery of [place] heart without angina pectoris (Chronic) Disruption of closure of sternum or sternotomy (Acute) History of non-ST elevation myocardial infarction (NSTEMI) (Chronic 01/04/20) Chronic diastolic (congestive) heart failure (Chronic) Secondary pulmonary arterial hypertension (Chronic) Essential (primary) hypertension (Chronic) Hypercholesterolemia (Chronic) Anemia (Chronic) Thrombocytosis (Chronic) Respiratory failure with hypoxia and hypercapnia (Resolved) Obstructive sleep apnea (Chronic) Allergic rhinitis (Chronic) Acute on chronic anemia (Chronic) Body mass index (BMI) 40.0-44.9, adult (Chronic) Debility (Chronic) GERD (gastroesophageal reflux disease) (Chronic) Neuropathic pain (Chronic) Nonrheumatic aortic (valve) stenosis (Chronic) Obesity (Chronic) Type 2 diabetes mellitus (Chronic) Acute exacerbation of CHF (congestive heart failure) (Resolved) Acute kidney injury (Resolved) Acute respiratory failure with hypoxia (Resolved 11/17/19) Atrial fibrillation with rapid ventricular response (Resolved 01/04/20) Atrial fibrillation with rapid ventricular response (Resolved) Elevated troponin (Resolved 11/17/19) Pulmonary edema (Resolved) Atrial flutter with rapid ventricular response (Ruled-out) Arteriosclerotic cardiovascular disease (Inactive) Triple vessel coronary artery disease (Inactive) Surgical History H/O coronary artery bypass surgery (Chronic 12/26/19) History of left heart catheterization (Resolved 01/04/20) Family History Mother Hypertension Father Hypertension Heart disease Social History (Updated 06/19/20 @ 10:22 by Jefferson España INSPECTOR TOOL, INSPECTOR TOOL-C) Smoking Status: Never smoker ROS Const Const: Negative for fatigue, weakness, body ache, fever(s) or chills ENT ENT: Negative for dizziness Cardio Chest Pain: No Palpitations: No Edema: None Muscle aches with walking: None Resp Respiratory: Negative for SOB with activity, SOB at rest, SOB orthopnea\SOB lying down or paroxysmal nocturnal dyspnea GI GI: Negative nausea, vomiting blood/hematemesis, bright, red blood in stools or black,tarry stools : Negative for hematuria or frequent nighttime urination/ nocturia Musc Musc: Negative for muscle aches/ myalgia Skin Skin: Negative non-healing lesions or rash Neuro Neuro: Positive for lightheadedness; negative for dizziness, near syncope, syncope, orthostatic symptoms or weakness Endo Endo: Negative for fatigue Allergy Allergy/Immunology: Negative for rash Cardiology Exam Const Appearance: cooperative, healthy appearing, comfortable and no acute distress Nutritional Appearance: average body habitus and well nourished Orientation: alert, awake and oriented x3 Head Head: normal to inspection Ears: hearing grossly normal bilaterally Nose: external nose normal Face and Sinus: face symmetric Mouth: oral mucosae normal Eyes General: appearance normal, both eyes and all related structures Eyelids: eyelids normal EOM: EOM intact bilaterally Neck Neck: normal visual inspection and no JVD Carotids: normal carotid upstroke Chest Chest inspection: normal inspection of the chest, symmetric chest movement and normal respiratory effort; negative cough Auscultation: Bilateral: Clear to Auscultation Cardio Rate: regular rate Rhythm: irregularly irregular Heart sounds: S1 normal and S2 normal; negative rub, gallop or murmur GI GI: normal to inspection Neuro General: alert, awake, oriented x3 and CN's II-XI intact bilaterally Skin Skin: no rashes or lesions noted Extremities Pulses: Normal: Right Posterior Tibial Pulse, Left Posterior Tibial Pulse, Right Radial Pulse, Left Radial Pulse Lower Extremity Edema: None: Bilateral Psych Psychological: normal affect Assessment & Plan 1. Atherosclerosis of coronary artery of [place] heart without angina pectoris, unspecified vessel or lesion type I25.10 Plan Patient denies any chest pain, arm pain, jaw pain, neck pain, shortness of breath, or fatigue suggestive of angina at this time. We will continue to monitor. We will not make any medication regimen changes and will continue risk factor modification. 2. H/O coronary artery bypass surgery Z95.1 CABG x 4: ARREDONDO-LAD, Free ISAK from the D1 SVG-OM1, SVG-D1, SVG-RPDA 12/26/19 Plan He will continue risk factor and lifestyle modification. 3. Chronic diastolic (congestive) heart failure I50.32 Plan His last limited echocardiogram in January 2020 showed an ejection fraction of 65%. His echocardiogram November 2019 showed stage 2 diastolic dysfunction. He appears to be in [place] [employer] functional class I. He is not appear to be in an overt fluid volume overload state. He will continue current medical therapy which includes metoprolol tartrate, losartan, and Lasix. We will continue to monitor. 4. Paroxysmal atrial fibrillation I48.0 Plan His EKG in office continues to show atrial fibrillation/flutter at a rate of 65 bpm, QTC 442, and a QRS of 107. He will continue current medical therapy which includes metoprolol tartrate for rate control, amiodarone for rate and rhythm control, and Eliquis for CVA protection. His case will be reviewed with Dr. Rondon in regards to proceeding with cardioversion. His last echocardiogram did reveal moderately enlarged left atrium. Orders Orders: 12 Lead EKG performed by [facility] Today Basic Metabolic Profile (BMP) Today Prothrombin Time w/INR Today 5. Essential hypertension I10 Plan Patient's blood pressure is well-controlled. We will continue to monitor. We will not make any medication regimen changes. He was asked to monitor lightheadedness and change positions slowly. If this becomes a recurring issue, we can consider adjustment of medication such as down titrating Lasix therapy. 6. Hypercholesterolemia E78.00 Plan He believes this to be monitored by primary care physician. He will continue to have this evaluated routinely. He will continue current high-dose statin medication. Plan Detail Additional Comments Thank you for allowing us to participate in the patients plan of care, if you have any questions please do not hesitate to call. This note was generated using a voice recognition system and there may be incorrect words, spelling or punctuation that were not noted when reviewing the office note prior to saving. Coding Level of Care Code Off vis,est,level 4 Diagnoses Atherosclerosis of coronary artery of [place] heart without angina pectoris, unspecified vessel or lesion type I25.10 ??Coronary Disease-Associated Artery/Lesion type: unspecified vessel or lesion type H/O coronary artery bypass surgery Z95.1 Chronic diastolic (congestive) heart failure I50.32 Paroxysmal atrial fibrillation I48.0 Essential hypertension I10 Hypercholesterolemia E78.00 Coding Level of Care Code Off vis,est,level 4 Diagnoses Atherosclerosis of coronary artery of [place] heart without angina pectoris, unspecified vessel or lesion type I25.10 ??Coronary Disease-Associated Artery/Lesion type: unspecified vessel or lesion type H/O coronary artery bypass surgery Z95.1 Chronic diastolic (congestive) heart failure I50.32 Paroxysmal atrial fibrillation I48.0 Essential hypertension I10 Hypercholesterolemia E78.00 Supplemental Info Supplemental Information Heart catheterization from 01/04/2020: CONCLUSIONS Normal Left Ventricular systolic function LVEF: by LV gram 65 % Elevated Left Ventricular End Diastolic Pressure Triple vessel CAD of the RCA, LAD and LCX/OM Widely patent ARREDONDO To LAD Widely patent composite graft of SVG attached to free ISAK, with grafts to DIAG and OM Widely patent SVG to PDA (small) with distal 60% anastamotic narrowing; no PCI recommended given recent CABG and anastomotic narrowing perfusing a small vessel,. No overt lesion that required PCI; ST elevation was most likely due to pt's cardiac supply/demand mismatch due to rapid afib and outstripping L to R collaterals to previously known occluded RCA; not a true STEMI. RECOMMENDATIONS Management as per referring Door Installer Hold heparin gtt, start Nitro gtt, continue amio gtt. Attempt IV diuresis with IV lasix; wean bipap therapy. Successful Mynx Control to RFA. D/w Drs. Rondon and Audrey. CORONARY ANGIOGRAPHY DOMINANCE: Right Dominant LEFT HEART ASSESSMENT Left Ventricular Ejection Fraction: by LV Gram 65 % Inferior Basal Hypokinesis - Mild Normal Left Ventricular systolic function LVEDP: 21 mmHg Elevated Left Ventricular End Diastolic Pressure LEFT MAIN: Angiographically normal LEFT ANTERIOR DESCENDING ARTERY: PROX LAD: Mild calcification, 75 % Stenosis CIRCUMFLEX ARTERY: MID CIRC: Moderate luminal irregularities up to 50% RIGHT CORONARY ARTERY: DISTAL RCA: is occluded GRAFTS: ARREDONDO graft to the Mid LAD is patent Saphenous Vein graft to the RPDA is patent Saphenous Vein graft to the RPDA has a distal anastomotic lesion of 60 %, feeds a very small portion of PDA and has REID III flow. Sequential graft to the DIAG and OM is widely patent (composed of an SVG sutured into the free ISAK) COLLATERAL FLOW: Collateral flow from Left to Right Echocardiogram from 11/17/2019: Interpretation Summary Normal LV size. Mild concentric left ventricular hypertrophy. Left ventricular systolic function is normal. The estimated ejection fraction is 65 %. The left atrium is moderately enlarged. Stage 2 diastolic dysfunction. Limited Transthoracic Echocardiogram from 01/09/2020: Interpretation Summary Normal LV size. Left ventricular systolic function is normal. The estimated ejection fraction is 65%. Contrast injection was performed. The study was technically limited. Stress EKG from 03/01/2020: Conclusion: Pre-exercise rehabilitation stress test with no definitive criteria for ischemia. Atrial fibrillation noted. Patient can start cardiac rehabilitation. Labs LDL Cholesterol 116 mg/dL (0-130) 11/17/19 HDL Cholesterol 42 mg/dL (40-) 11/17/19 Triglycerides 178 mg/dL (-199) 01/09/20 VLDL Cholesterol 23 mg/dL (5-40) 11/17/19 Diagnostics Electrocardiogram 06/19/20 Echocardiogram 11/17/19 Stress Test 03/01/20 Cardiac Catheterization 01/04/20 Chest X-Ray 05/29/20 Pulmonary Pulmonary Function Test 02/29/20 Pulmonary Exercise Test 03/20/20
--- NOTE | 2020-07-13 13:40 | PRO.PCM_ITS ---
Procedure Report Date of Procedure: 07/13/20 CONSCIOUS SEDATION REPORT DATE OF SERVICE: July 13, 2020 BRIEF HISTORY OF PRESENT ILLNESS: The patient is a 60-year-old male who presented to [facility] for an elective outpatient cardioversion due to underlying atrial fibrillation. The patient has never previously undergone a prior cardioversion. He denies any known anesthesia complications in the past. The patient's last surface echocardiogram revealed an ejection fraction of approximately 65%. He is currently anticoagulated on Eliquis. He does have a known history of obstructive sleep apnea, for which he utilizes nocturnal BiPAP therapy. PHYSICAL EXAMINATION: VITAL SIGNS: Reviewed and were acceptable. GENERAL: The patient is an obese male, in no apparent distress, speaking in full sentences. HEENT: Normocephalic, atraumatic. Mucous membranes are moist and pink. Good mouth opening noted. Trachea is midline. Good neck mobility. CHEST: S1, S2 irregularly irregular. No murmurs, rubs or gallops were noted. LUNGS: Clear to auscultation bilaterally without appreciable wheezes, rales or rhonchi. ABDOMEN: Soft, nontender, nondistended. Positive bowel sounds. EXTREMITIES: There is no clubbing or cyanosis present. Lower extremity edema is evident. ASA Class: II DESCRIPTION OF PROCEDURE: After confirmation of informed consent, the patient's anesthesia plan was reviewed in detail. Propofol was chosen. Risks and benefits were reviewed and the patient agreed to proceed. At 1206, the patient was given his first bolus of propofol. In total, the patient required 80 mg of propofol to achieve an appropriate level of sedation, after which time, he was given a 200 joule synchronized cardioversion by Dr. Rondon at the bedside. This was successful in achieving normal sinus rhythm. The patient was monitored until 1217, at which time he reached his baseline mental status and function. The patient tolerated the procedure well. COMPLICATIONS: None ESTIMATED BLOOD LOSS: None RECOMMENDATIONS: Okay to recover in usual fashion. [id number]: Other Procedure See Report - [id number]
--- NOTE | 2020-07-13 13:47 | CARDIOVERS ---
Cardioversion Cardioversion: DC cardioversion. 60-year-old man with a history of persistent atrial fibrillation. The patient was brought into the cardiac catheterization lab in the postabsorptive nonsedated state. He was seen by Dr. Heaton of the cardiovascular critical care division. Informed consent was obtained. Anterior-posterior pads were applied. The patient was then administered 80 mg of intravenous propofol and 200 J of synchronized DC cardioversion energy were applied with prompt reversal to sinus rhythm. Patient tolerated the procedure well. Conclusion: Successful DC cardioversion to sinus rhythm. Continue current medications. We will see you in the office in a week.
== END 2020-07-13 13:20 | disposition home or self-care (01) ==
LOC: CLSP 10:20
PROVIDERS: PCP Family Medicine; Referring Provider Internal Medicine Cardiovascular Disease; Visit Provider Internal Medicine Cardiovascular Disease
DX: I48.0 Paroxysmal atrial fibrillation (principal); I25.10 Atherosclerotic heart disease of native coronary artery without angina pectoris; I11.0 Hypertensive heart disease with heart failure; I50.32 Chronic diastolic (congestive) heart failure; E78.00 Pure hypercholesterolemia, unspecified; Z95.1 Presence of aortocoronary bypass graft
CPT/HCPCS: 92960; 93005; J7040

== ENCOUNTER → 2020-07-20 10:05 | Outpatient (CLI) | payer OTHER, SELFPAY ==
[2020-05-30 07:03] VITALS: BMI 39.2
[2020-07-12 09:35] VITALS: BMI 38.9
[2020-07-23 04:46] LABS: Testosterone Free 15.1 pg/mL (6.6-18.1)
== END ==
PROVIDERS: PCP Family Medicine; Visit Provider Family Medicine
DX: E29.1 Testicular hypofunction (principal)
CPT/HCPCS: 36415; 84402; 84403

== ENCOUNTER → 2020-08-17 05:55 | Outpatient (CLI) | payer OTHER, SELFPAY ==
[2020-05-30 07:03] VITALS: BMI 39.2
[2020-08-21 11:16] LABS: Testosterone Free 20.5 pg/mL (6.6-18.1)
== END ==
PROVIDERS: PCP Family Medicine; Referring Provider Family Medicine; Visit Provider Family Medicine
DX: E29.1 Testicular hypofunction (principal)
CPT/HCPCS: 36415; 84402

== ENCOUNTER → 2020-08-28 09:22 | Outpatient (CLI) | payer OTHER, SELFPAY ==
[2020-04-30 10:16] VITALS: BMI 39.6
[2020-05-29 05:40] VITALS: BMI 39.2
[2020-05-30 07:03] VITALS: BMI 39.2
[2020-07-12 09:35] VITALS: BMI 38.9
--- NOTE | 2020-08-28 16:13 | PFTCOMP ---
COMPLETE PULMONARY FUNCTION TEST INTERPRETATION Brief HPI: Patient is a 60 year old male, currently under the care of myself, who presents to [facility] for complete pulmonary function tests secondary to diagnosis of respiratory failure. Respiratory therapist reports good effort and reproducible results. Interpretation: Forced expiration spirometry shows no large airways obstructive ventilatory defect with an FEV1 of 44% predicted. There is no significant bronchodilator response by strict ATS criteria. Spirograms are of good quality and plateau normally. The respiratory flow volume loop shows decreased expiratory flow rates at high lung volumes consistent with small airways obstruction. Lung volumes by body plethysmography show a decreased total lung capacity at 4.47 L, 63% predicted. All other lung volumes are reduced symmetrically. Diffusion capacity by carbon monoxide is decreased at 61% predicted. The airway resistance is elevated. Compared to previous pulmonary function tests from 02/28/2020, there is been a significant improvement in spirometry and lung volume measurements. Impression: Moderate restrictive ventilatory defect with a symmetric reduction in diffusion capacity, but some improvement compared to previous testing
== END ==
PROVIDERS: PCP Family Medicine; Referring Provider Internal Medicine Critical Care Medicine; Visit Provider Internal Medicine Critical Care Medicine
DX: I27.21 Secondary pulmonary arterial hypertension (principal); J96.91 Respiratory failure, unspecified with hypoxia; J96.92 Respiratory failure, unspecified with hypercapnia
CPT/HCPCS: 94060; 94726; 94729

== ENCOUNTER 2020-11-15 10:17 | Outpatient (RCR) | payer OTHER, SELFPAY ==
[2020-05-30 07:03] VITALS: BMI 39.2
[2020-09-04 10:01] VITALS: BMI 39.2
[2020-11-15] MEDS: COVID-19 VACC, MRNA(PFIZER)/PF 30 MCG/0.3 ML SYRINGE IM (07:53)
[2020-12-06] MEDS: COVID-19 VACC, MRNA(PFIZER)/PF 30 MCG/0.3 ML SYRINGE IM (07:42)
== END 2020-11-15 23:59 ==
LOC: IMMUN 10:17
PROVIDERS: PCP Family Medicine; Visit Provider Family Medicine
DX: Z23 Encounter for immunization (principal)
CPT/HCPCS: 0001A; 0002A; 91300

== ENCOUNTER → 2020-12-11 10:07 | Outpatient (CLI) | payer OTHER, SELFPAY ==
[2020-05-30 07:03] VITALS: BMI 39.2
[2020-12-11 08:39] VITALS: BMI 40.0
[2020-12-11 11:07] LABS: Basophil# 0.07 X10^3/uL; Basophil% 1.2 % (0-1); Eosinophil# 0.18 X10^3/uL; Hematocrit 36.7 % (40-54); Hemoglobin 10.8 g/dL (13.0-16.5); Mean Corp Hgb Conc 29.4 g/dL (32-36); Mean Corpuscular Hgb 26.3 pg (27.0-32.0); Mean Corpuscular Volume 89.5 fL (80-94); Mean Platelet Vol. 11.5 fl (6.2-12.0); Monocyte# 0.58 X10^3/uL; Monocyte% 9.7 % (0-10); NRBC Flagged by Analyzer 0 % (0-5); Neutrophil # 3.95 X10^3/uL (2.7-7.7); Neutrophil % 65.8 % (47-70); Platelet Count 311 K/mm3 (150-450); RBC Distribution Width SD 49.1 fl (35.1-43.9)
[2020-12-11 11:43] LABS: Anion Gap 5 (5-15); BUN 27 mg/dL (7-18); BUN/Creat Ratio 16.3 RATIO (10-20); Chloride 100 mmol/L (98-107); Creatinine, Serum 1.66 mg/dL (0.70-1.30); EST Glomerular Filtration Rate 45 mL/min (>60); Est Glom Filt Rate - Afr Amer 54 mL/min (>60); Glucose 149 mg/dL (74-106); Potassium 4.1 mmol/L (3.5-5.1); Sodium Level 137 mmol/L (136-145); Thyroid Stim Hormone (TSH) 7.19 uIU/mL (0.358-3.74)
== END ==
PROVIDERS: PCP Family Medicine; Referring Provider Internal Medicine Cardiovascular Disease; Visit Provider Internal Medicine Cardiovascular Disease
DX: I48.0 Paroxysmal atrial fibrillation (principal); Z95.1 Presence of aortocoronary bypass graft
CPT/HCPCS: 36415; 80048; 84443; 85025

== ENCOUNTER → 2021-07-12 05:51 | Outpatient (CLI) | payer OTHER, SELFPAY ==
[2020-05-30 07:03] VITALS: BMI 39.2
[2021-07-12 06:47] LABS: Absolute Lymphocyte Count 1.35 X10^3/uL (0.83-4.51); Basophil# 0.09 X10^3/uL; Basophil% 1.7 % (0-1); Eosinophil# 0.26 X10^3/uL; Eosinophils% 4.9 % (0-5); Hematocrit 26.4 % (40-54); Hemoglobin 7.5 g/dL (13.0-16.5); Lymphocyte # 1.35 X10^3/ul (0.83-4.51); Lymphocyte % 25.3 % (19-41); Mean Corp Hgb Conc 28.4 g/dL (32-36); Mean Corpuscular Hgb 22.8 pg (27.0-32.0); Mean Corpuscular Volume 80.2 fL (80-94); Mean Platelet Vol. 11.6 fl (6.2-12.0); Monocyte# 0.59 X10^3/uL; NRBC Flagged by Analyzer 0 % (0-5); Neutrophil # 3.04 X10^3/uL (2.7-7.7); Neutrophil % 56.9 % (47-70); Platelet Count 406 K/mm3 (150-450); RBC Distribution Width CV 18.9 % (11.6-14.6); RBC Distribution Width SD 54.7 fl (35.1-43.9); Red Blood Count 3.29 M/mm3 (4.6-6.2); White Blood Count 5.3 K/mm3 (4.4-11.0)
[2021-07-12 07:16] LABS: Hemoglobin A1c 7.2 % (3.8-5.6)
[2021-07-12 07:43] LABS: ALB/GLOB Ratio 0.9 RATIO (0.9-2.4); AST(SGOT) 19 U/L (15-37); Alanine Aminotransfer ALT/SGPT 22 U/L (16-61); Albumin, Serum 3.7 g/dL (3.2-5.0); Alkaline Phosphatase 83 U/L (45-117); Anion Gap 7 (5-15); BUN 49 mg/dL (7-18); BUN/Creat Ratio 19.3 RATIO (10-20); Calcium,Total 8.9 mg/dL (8.5-10.1); Chloride 100 mmol/L (98-107); Cholesterol 126 mg/dL (200); Creatinine, Serum 2.54 mg/dL (0.70-1.30); EST Glomerular Filtration Rate 27 mL/min (>60); Est Glom Filt Rate - Afr Amer 33 mL/min (>60); Free T3 2.1 pg/mL (2.18-3.98); Globulin 4.3 g/dL (2.2-4.2); Glucose 169 mg/dL (74-106); High Density Lipoprotein 36 mg/dL; Potassium 4.4 mmol/L (3.5-5.1); Sodium Level 137 mmol/L (136-145); T4 Free Direct 1.44 ng/dL (0.76-1.46); Thyroid Stim Hormone (TSH) 5.65 uIU/mL (0.358-3.74); Triglycerides 96 mg/dL; Very Low Density Lipoprotein 19 mg/dL (5-40)
== END ==
PROVIDERS: PCP Family Medicine; Referring Provider Family Medicine; Visit Provider Family Medicine
DX: I48.0 Paroxysmal atrial fibrillation (principal); E11.21 Type 2 diabetes mellitus with diabetic nephropathy
CPT/HCPCS: 36415; 80053; 80061; 83036; 84439; 84443; 84481; 85025

== ENCOUNTER → 2021-07-16 11:12 | Outpatient (CLI) | payer OTHER, SELFPAY ==
[2020-05-30 07:03] VITALS: BMI 39.2
[2021-07-16 12:14] LABS: Platelet Count 363 K/mm3 (150-450); RET-HE 21.8 pg (30-35); Reticulocyte Count 1.92 % (0.5-1.5)
[2021-07-16 12:45] LABS: Vitamin B12 474 pg/mL (211-911)
[2021-07-16 12:53] LABS: Anion Gap 4 (5-15); BUN 43 mg/dL (7-18); BUN/Creat Ratio 18.1 RATIO (10-20); Calcium,Total 9.2 mg/dL (8.5-10.1); Chloride 103 mmol/L (98-107); Creatinine, Serum 2.37 mg/dL (0.70-1.30); EST Glomerular Filtration Rate 30 mL/min (>60); Est Glom Filt Rate - Afr Amer 36 mL/min (>60); Ferritin 8 ng/mL (26-388); Glucose 104 mg/dL (74-106); Iron 22 ug/dL (65-175); Iron Binding Capacity,Total 492 ug/dL (250-450); Potassium 4.6 mmol/L (3.5-5.1); Sodium Level 137 mmol/L (136-145)
== END ==
PROVIDERS: PCP Family Medicine; Visit Provider Family Medicine
DX: D64.9 Anemia, unspecified (principal); N18.30 Chronic kidney disease, stage 3 unspecified; D63.1 Anemia in chronic kidney disease
CPT/HCPCS: 36415; 80048; 82607; 82728; 82746; 83540; 83550; 85045

== ENCOUNTER → 2021-08-16 05:55 | Outpatient (CLI) | payer OTHER, SELFPAY ==
[2020-05-30 07:03] VITALS: BMI 39.2
[2021-08-16 07:08] LABS: Absolute Lymphocyte Count 1.12 X10^3/uL (0.83-4.51); Absolute Neutrophil Count 2.8 X10^3/uL (2.0-7.7); Basophil# 0.07 X10^3/uL; Basophil% 1.5 % (0-1); Eosinophil# 0.14 X10^3/uL; Eosinophils% 2.9 % (0-5); Hematocrit 45.2 % (40-54); Lymphocyte # 1.12 X10^3/ul (0.83-4.51); Lymphocyte % 23.6 % (19-41); Mean Corp Hgb Conc 28.8 g/dL (32-36); Mean Corpuscular Hgb 29.2 pg (27.0-32.0); Mean Corpuscular Volume 101.6 fL (80-94); Mean Platelet Vol. 10.8 fl (6.2-12.0); Monocyte% 12.6 % (0-10); NRBC Flagged by Analyzer 0 % (0-5); Neutrophil # 2.81 X10^3/uL (2.7-7.7); Neutrophil % 59.2 % (47-70); POSITIVE MORPHOLOGY YES; Platelet Count 256 K/mm3 (150-450); Red Blood Count 4.45 M/mm3 (4.6-6.2); White Blood Count 4.8 K/mm3 (4.4-11.0)
[2021-08-16 07:41] LABS: Albumin, Serum 3.5 g/dL (3.2-5.0); BUN 16 mg/dL (7-18); BUN/Creat Ratio 9.7 RATIO (10-20); Calcium,Total 9.4 mg/dL (8.5-10.1); Chloride 98 mmol/L (98-107); Creatinine, Serum 1.65 mg/dL (0.70-1.30); EST Glomerular Filtration Rate 45 mL/min (>60); Est Glom Filt Rate - Afr Amer 54 mL/min (>60); Glucose 149 mg/dL (74-106); Phosphorus 3.6 mg/dL (2.5-4.9); Potassium 3.8 mmol/L (3.5-5.1); Sodium Level 141 mmol/L (136-145)
[2021-08-16 08:13] LABS: Differential Indicated SCAN CRITERIA MET
[2021-08-16 08:14] LABS: Anisocytosis 3+
== END ==
PROVIDERS: PCP Family Medicine; Referring Provider Family Medicine; Visit Provider Family Medicine
DX: N17.9 Acute kidney failure, unspecified (principal); I48.0 Paroxysmal atrial fibrillation
CPT/HCPCS: 36415; 80069; 85025

== ENCOUNTER 2021-10-15 08:16 | Outpatient (CLI) | payer OTHER, SELFPAY ==
[2020-05-30 07:03] VITALS: BMI 39.2
[2021-10-15 09:49] LABS: Free T3 2.4 pg/mL (2.18-3.98); T4 Free Direct 1.34 ng/dL (0.76-1.46); Thyroid Stim Hormone (TSH) 2.22 uIU/mL (0.358-3.74)
== END 2021-10-15 23:59 | disposition home or self-care (01) ==
LOC: LAB 08:17
PROVIDERS: PCP Family Medicine; Referring Provider Nurse Practitioner Gerontology; Visit Provider Nurse Practitioner Gerontology
DX: I48.0 Paroxysmal atrial fibrillation (principal)
CPT/HCPCS: 36415; 84439; 84443; 84481

== ENCOUNTER 2021-12-02 13:25 | Outpatient (CLI) | payer OTHER, SELFPAY ==
[2020-05-30 07:03] VITALS: BMI 39.2
--- NOTE | 2021-12-02 13:49 | US_ITS ---
STUDY: RENAL ULTRASOUND - COMPLETE REASON FOR EXAM: Male, 61 years old. ACUTE KIDNEY INJURY TECHNIQUE: Ultrasound evaluation of the kidneys was performed with real-time and static khalil-scale imaging. COMPARISON: Comparison is made with prior study dated 01/16/2020. FINDINGS: RIGHT KIDNEY: Normal location of the right kidney, which is normal in size. The right kidney measures 13.7 cm x 6.2 cm x 6.9 cm. There is a normal cortex of the right kidney. The renal cortex measures 1.4 cm. There is no right renal mass or cyst. There are no right renal calculi. There is no right hydronephrosis. DISTAL RIGHT URETER: There is non-visualization of the distal right ureter. There is no demonstrated right ureterovesical junction calculus. There is no demonstrated right ureteral jet. LEFT KIDNEY: Normal location of the left kidney, which is normal in size. The left kidney measures 13.7 cm x 6.2 cm x 6 cm. There is a normal cortex of the left kidney. The renal cortex measures 1.9 cm. There is a 2.4 cm x 1.9 cm x 1.5 cm left parapelvic cyst. There are no left renal calculi. There is no left hydronephrosis. DISTAL LEFT URETER: There is non-visualization of the distal left ureter. There is no demonstrated left ureterovesical junction calculus. There is no demonstrated left ureteral jet. BLADDER: The distended urinary bladder has a volume of 578 ml. There is a normal wall thickness of the distended urinary bladder. There is no demonstrated mass within the urinary bladder. There are no demonstrated bladder calculi. US/Kidney and Bladder IMPRESSION: 2.4 cm x 1.9 cm x 1.5 cm left parapelvic cyst. Electronically Signed: Tutu Royal MD at 9:14 EDT ,
[2021-12-02 14:02] LABS: Hematocrit 54.3 % (40-54); Hemoglobin 17.7 g/dL (13.0-16.5); Mean Corp Hgb Conc 32.6 g/dL (32-36); Mean Corpuscular Hgb 31.8 pg (27.0-32.0); Mean Corpuscular Volume 97.7 fL (80-94); Mean Platelet Vol. 10.6 fl (6.2-12.0); Platelet Count 222 K/mm3 (150-450); RBC Distribution Width CV 14.4 % (11.6-14.6); Red Blood Count 5.56 M/mm3 (4.6-6.2); White Blood Count 5.4 K/mm3 (4.4-11.0)
[2021-12-02 14:11] LABS: Protein, Urine (Random) 29.3 mg/dL (<11.9); Protein:Creat Ratio 767 mg/g CRE (0-200)
[2021-12-02 14:37] LABS: Anion Gap 5 (5-15); BUN 33 mg/dL (7-18); BUN/Creat Ratio 20.9 RATIO (10-20); Calcium,Total 8.8 mg/dL (8.5-10.1); Chloride 100 mmol/L (98-107); Creatinine, Serum 1.58 mg/dL (0.70-1.30); EST Glomerular Filtration Rate 47 mL/min (>60); Est Glom Filt Rate - Afr Amer 57 mL/min (>60); Glucose 157 mg/dL (74-106); Potassium 4.2 mmol/L (3.5-5.1); Sodium Level 138 mmol/L (136-145)
[2021-12-04 18:46] LABS: Anti-dsDNA Ab <1 IU/mL (0-9)
[2021-12-05 18:08] LABS: Free Kappa Light Chains 34.4 mg/L (3.3-19.4); PROEL- A/G Ratio 1.2 (0.7-1.7); PROEL- Alpha-1 Globulin 0.2 g/dL (0.0-0.4); PROEL- Alpha-2 Globulin 0.8 g/dL (0.4-1.0); PROEL- Gamma Globulin 1.3 g/dL (0.4-1.8); PROEL- Globulin, Total 3.3 g/dL (2.2-3.9); PROEL- TOTAL PROTEIN 7.3 g/dL (6.0-8.5)
[2021-12-05 18:42] LABS: Complement C3 124 mg/dL (82-167); Perinuclear Ab (P-ANCA) <1:20 titer (Neg:<1:20)
== END 2021-12-02 23:59 | disposition home or self-care (01) ==
LOC: LAB 13:26
PROVIDERS: PCP Family Medicine; Referring Provider Nurse Practitioner Adult Health; Visit Provider Nurse Practitioner Adult Health
DX: N17.9 Acute kidney failure, unspecified (principal)
CPT/HCPCS: 36415; 76770; 80048; 82570; 83883; 83970; 84156; 84165; 85027; 86160; 86225; 86256

== ENCOUNTER 2021-12-03 11:13 | Outpatient (CLI) | payer OTHER, SELFPAY ==
[2020-05-30 07:03] VITALS: BMI 39.2
[2021-12-03 11:18] LABS: Bacteria 0 SEEN /hpf (None Seen); Mucous, Urine 0 SEEN /hpf (<or=2+); Red Blood Cells-Urine 0 SEEN /hpf (0-5); Squamous Epithelial Cells - UA 0 SEEN /hpf (0-5)
[2021-12-03 12:34] LABS: Color, Urine Yellow (Yellow); Glucose, Dipstick Normal (Normal); Ketone-Dipstick Negative (Negative); Leukocyte Esterase-Dipstick 25 /ul (Negative); Nitrite-Dipstick Negative (Negative); Occult Blood-Urine Negative /ul (Negative); Protein-Dipstick 30 mg/dl (Negative); Urine Bilirubin Dipstick Negative (Negative); Urine Clarity Clear (Clear); Urine Urobilinogen Normal (Normal)
[2021-12-03 12:51] LABS: White Blood Cells 0-5 SEEN /hpf (0-5)
== END 2021-12-03 23:59 | disposition home or self-care (01) ==
LOC: LAB.FUTURE 11:13 → LAB 11:15
PROVIDERS: PCP Family Medicine; Visit Provider Nurse Practitioner Adult Health
DX: N17.9 Acute kidney failure, unspecified (principal)
CPT/HCPCS: 81001

== ENCOUNTER → 2022-06-03 | Outpatient (CLI) | payer OTHER, SELFPAY ==
[2020-05-30 07:03] VITALS: BMI 39.2
[2022-06-03 16:08] LABS: Red Blood Count 6.07 M/mm3 (4.6-6.2); White Blood Count 5.5 K/mm3 (4.4-11.0)
[2022-06-03 16:09] LABS: Mean Corp Hgb Conc 32.9 g/dL (32-36); Mean Corpuscular Hgb 31.5 pg (27.0-32.0); Mean Corpuscular Volume 95.6 fL (80-94); Platelet Count 206 K/mm3 (150-450); RBC Distribution Width CV 13.5 % (11.6-14.6); RBC Distribution Width SD 47.5 fl (35.1-43.9); Scan Indicated on CBC? Y/N YES- FLAGS NOTED
[2022-06-03 16:13] LABS: Protein:Creat Ratio 287 mg/g CRE (0-200)
[2022-06-03 16:26] LABS: Vitamin D,25 Hydroxy 42.8 ng/mL
[2022-06-03 16:27] LABS: BUN 36 mg/dL (7-18); BUN/Creat Ratio 19.9 RATIO (10-20); Calcium,Total 9.4 mg/dL (8.5-10.1); Chloride 99 mmol/L (98-107); Creatinine, Serum 1.81 mg/dL (0.70-1.30); EST Glomerular Filtration Rate 40 mL/min (>60); Est Glom Filt Rate - Afr Amer 49 mL/min (>60); Glucose 136 mg/dL (74-106); Phosphorus 3.5 mg/dL (2.5-4.9); Potassium 4.4 mmol/L (3.5-5.1); Sodium Level 136 mmol/L (136-145)
[2022-06-03 16:39] LABS: Hemoglobin 19.1 g/dL (13.0-16.5)
[2022-06-04 08:12] LABS: PTHIN 100.4 pg/mL (18.4-80.1)
[2022-06-04 12:12] LABS: Pathologist Review Reviewed
== END | disposition home or self-care (01) ==
PROVIDERS: PCP Family Medicine; Referring Provider Internal Medicine Nephrology; Visit Provider Internal Medicine Nephrology
DX: N18.31 Chronic kidney disease, stage 3a (principal)
CPT/HCPCS: 36415; 80069; 82306; 82570; 83970; 84156; 85027

== ENCOUNTER → 2022-06-20 | Outpatient (CLI) | payer OTHER, SELFPAY ==
[2020-05-30 07:03] VITALS: BMI 39.2
[2022-06-20 07:17] LABS: Absolute Lymphocyte Count 1.46 X10^3/uL (0.83-4.51); Basophil# 0.06 X10^3/uL; Eosinophil# 0.16 X10^3/uL; Eosinophils% 2.6 % (0-5); Hemoglobin 18.8 g/dL (13.0-16.5); Lymphocyte # 1.46 X10^3/ul (0.83-4.51); Lymphocyte % 23.4 % (19-41); Mean Corp Hgb Conc 31.8 g/dL (32-36); Mean Corpuscular Hgb 31.4 pg (27.0-32.0); Mean Corpuscular Volume 98.7 fL (80-94); Mean Platelet Vol. 11.2 fl (6.2-12.0); Monocyte# 0.54 X10^3/uL; Monocyte% 8.6 % (0-10); NRBC Flagged by Analyzer 0 % (0-5); Neutrophil # 4.01 X10^3/uL (2.7-7.7); Neutrophil % 64.1 % (47-70); Platelet Count 217 K/mm3 (150-450); RBC Distribution Width CV 13.2 % (11.6-14.6); RET-HE 35.9 pg (30-35); Red Blood Count 5.99 M/mm3 (4.6-6.2); White Blood Count 6.3 K/mm3 (4.4-11.0)
[2022-06-20 07:21] LABS: Hematocrit 59.1 % (40-54)
[2022-06-20 07:22] LABS: Differential Indicated SCAN CRITERIA MET
[2022-06-20 08:14] LABS: BUN 44 mg/dL (7-18); BUN/Creat Ratio 24.3 RATIO (10-20); Chloride 99 mmol/L (98-107); Cholesterol 174 mg/dL (200); Creatinine, Serum 1.81 mg/dL (0.70-1.30); EST Glomerular Filtration Rate 40 mL/min (>60); Est Glom Filt Rate - Afr Amer 49 mL/min (>60); Ferritin 230 ng/mL (26-388); Glucose 108 mg/dL (74-106); High Density Lipoprotein 40 mg/dL; Phosphorus 4.3 mg/dL (2.5-4.9); Potassium 4.9 mmol/L (3.5-5.1); Sodium Level 135 mmol/L (136-145); Triglycerides 149 mg/dL; Very Low Density Lipoprotein 30 mg/dL (5-40)
[2022-06-23 11:13] LABS: Pathologist Review Reviewed
[2022-07-02 14:09] LABS: Testosterone, Free 6.16 ng/dL (5.00-21.00)
[2022-07-02 18:08] LABS: Testosterone, % Free 3.48 % (1.50-4.20); Testosterone, Total 177 ng/dL (264-916)
== END | disposition home or self-care (01) ==
LOC: LAB 06:01
PROVIDERS: PCP Family Medicine; Referring Provider Family Medicine; Visit Provider Family Medicine
DX: Z00.00 Encounter for general adult medical examination without abnormal findings (principal); E78.00 Pure hypercholesterolemia, unspecified; D75.1 Secondary polycythemia
CPT/HCPCS: 36415; 80061; 80069; 82728; 84402; 84403; 85025; 85045

== ENCOUNTER → 2022-12-31 | Outpatient (CLI) | payer OTHER, SELFPAY ==
[2020-05-30 07:03] VITALS: BMI 39.2
[2022-12-31 10:37] LABS: Hematocrit 50.3 % (40-54); Hemoglobin 15.9 g/dL (13.0-16.5); Mean Corp Hgb Conc 31.6 g/dL (32-36); Mean Corpuscular Hgb 31.7 pg (27.0-32.0); Mean Corpuscular Volume 100.2 fL (80-94); Mean Platelet Vol. 10.9 fl (6.2-12.0); Platelet Count 262 K/mm3 (150-450); RBC Distribution Width CV 14.6 % (11.6-14.6); RBC Distribution Width SD 53.9 fl (35.1-43.9); Red Blood Count 5.02 M/mm3 (4.6-6.2); White Blood Count 5.3 K/mm3 (4.4-11.0)
[2022-12-31 10:47] LABS: Protein, Urine (Random) 11.9 mg/dL (<11.9); Protein:Creat Ratio 119 mg/g CRE (0-200)
[2022-12-31 10:52] LABS: Albumin, Serum 3.6 g/dL (3.2-5.0); BUN 37 mg/dL (7-18); BUN/Creat Ratio 19.3 RATIO (10-20); Calcium,Total 9.2 mg/dL (8.5-10.1); Chloride 100 mmol/L (98-107); Creatinine, Serum 1.92 mg/dL (0.70-1.30); EST Glomerular Filtration Rate 38 mL/min (>60); Est Glom Filt Rate - Afr Amer 46 mL/min (>60); Glucose 297 mg/dL (74-106); Phosphorus 2.9 mg/dL (2.5-4.9); Potassium 4.5 mmol/L (3.5-5.1); Sodium Level 131 mmol/L (136-145)
[2022-12-31 11:00] LABS: PTHIN 138.4 pg/mL (18.4-80.1); Vitamin D,25 Hydroxy 41.3 ng/mL
== END | disposition home or self-care (01) ==
LOC: MFPLAB 09:00
PROVIDERS: PCP Family Medicine; Visit Provider Nurse Practitioner Adult Health
DX: N18.31 Chronic kidney disease, stage 3a (principal)
CPT/HCPCS: 36415; 80069; 82306; 82570; 83970; 84156; 85027

== ENCOUNTER → 2023-05-01 | Outpatient (CLI) | payer OTHER, SELFPAY ==
[2020-05-30 07:03] VITALS: BMI 39.2
[2023-05-01 06:37] LABS: Absolute Neutrophil Count 3.2 X10^3/uL (2.0-7.7); Basophil# 0.07 X10^3/uL; Basophil% 1.3 % (0-1); Eosinophil# 0.19 X10^3/uL; Eosinophils% 3.4 % (0-5); Hemoglobin 15.1 g/dL (13.0-16.5); Lymphocyte % 27.1 % (19-41); Mean Corp Hgb Conc 32.1 g/dL (32-36); Mean Corpuscular Hgb 30.6 pg (27.0-32.0); Mean Corpuscular Volume 95.3 fL (80-94); Mean Platelet Vol. 10.8 fl (6.2-12.0); Monocyte# 0.54 X10^3/uL; Monocyte% 9.7 % (0-10); NRBC Flagged by Analyzer 0 % (0-5); Neutrophil # 3.21 X10^3/uL (2.7-7.7); Platelet Count 193 K/mm3 (150-450); RBC Distribution Width CV 13.9 % (11.6-14.6); RBC Distribution Width SD 48.4 fl (35.1-43.9); Red Blood Count 4.93 M/mm3 (4.6-6.2); White Blood Count 5.5 K/mm3 (4.4-11.0)
[2023-05-01 07:13] LABS: Microalbumin,Random Urine 6.5 mg/L (NO RANGE EST.); Microalbumin:Creatinine Ratio 7.1 mg/g CRE (<30 mg/g CRE)
[2023-05-01 07:19] LABS: ALB/GLOB Ratio 1.1 RATIO (0.9-2.4); AST(SGOT) 21 U/L (15-37); Alanine Aminotransfer ALT/SGPT 24 U/L (16-61); Albumin, Serum 3.8 g/dL (3.2-5.0); Alkaline Phosphatase 98 U/L (45-117); Anion Gap 5 (5-15); BUN 33 mg/dL (7-18); BUN/Creat Ratio 20.1 RATIO (10-20); Calcium,Total 9.2 mg/dL (8.5-10.1); Chloride 99 mmol/L (98-107); Cholesterol 121 mg/dL (200); Creatinine, Serum 1.64 mg/dL (0.70-1.30); EST Glomerular Filtration Rate 45 mL/min (>60); Est Glom Filt Rate - Afr Amer 55 mL/min (>60); Globulin 3.5 g/dL (2.2-4.2); Glucose 116 mg/dL (74-106); High Density Lipoprotein 41 mg/dL; Potassium 4.5 mmol/L (3.5-5.1); Protein, Total 7.3 g/dL (6.4-8.2); Sodium Level 134 mmol/L (136-145); Triglycerides 65 mg/dL; Very Low Density Lipoprotein 13 mg/dL (5-40)
[2023-05-01 08:42] LABS: Vitamin D,25 Hydroxy 49.5 ng/mL
== END | disposition home or self-care (01) ==
LOC: LAB 06:06
PROVIDERS: PCP Family Medicine; Referring Provider Family Medicine; Visit Provider Family Medicine
DX: N18.31 Chronic kidney disease, stage 3a (principal); E34.9 Endocrine disorder, unspecified
CPT/HCPCS: 36415; 80053; 80061; 82043; 82306; 82570; 84403; 85025

== ENCOUNTER → 2023-07-10 | Outpatient (CLI) | payer OTHER, SELFPAY ==
[2020-05-30 07:03] VITALS: BMI 39.2
[2023-07-10 07:10] LABS: Hemoglobin 14.1 g/dL (13.0-16.5); Mean Corp Hgb Conc 31.3 g/dL (32-36); Mean Corpuscular Hgb 30.9 pg (27.0-32.0); Mean Corpuscular Volume 98.5 fL (80-94); Mean Platelet Vol. 10.6 fl (6.2-12.0); Platelet Count 212 K/mm3 (150-450); RBC Distribution Width CV 14.2 % (11.6-14.6); RBC Distribution Width SD 51.8 fl (35.1-43.9); Red Blood Count 4.57 M/mm3 (4.6-6.2); White Blood Count 4.9 K/mm3 (4.4-11.0)
[2023-07-10 07:36] LABS: Protein, Urine (Random) 11.3 mg/dL (<11.9); Protein:Creat Ratio 111 mg/g CRE (0-200)
[2023-07-10 07:49] LABS: PTHIN 113.2 pg/mL (18.4-80.1)
[2023-07-10 07:52] LABS: Albumin, Serum 3.6 g/dL (3.2-5.0); BUN 28 mg/dL (7-18); BUN/Creat Ratio 17.1 RATIO (10-20); Calcium,Total 8.9 mg/dL (8.5-10.1); Chloride 98 mmol/L (98-107); Creatinine, Serum 1.64 mg/dL (0.70-1.30); EST Glomerular Filtration Rate 45 mL/min (>60); Est Glom Filt Rate - Afr Amer 55 mL/min (>60); Glucose 156 mg/dL (74-106); Phosphorus 3.5 mg/dL (2.5-4.9); Sodium Level 135 mmol/L (136-145); Vitamin D,25 Hydroxy 40.9 ng/mL
== END | disposition home or self-care (01) ==
LOC: LAB 05:51
PROVIDERS: PCP Family Medicine; Referring Provider Internal Medicine Nephrology; Visit Provider Internal Medicine Nephrology
DX: N18.31 Chronic kidney disease, stage 3a (principal); D64.9 Anemia, unspecified
CPT/HCPCS: 36415; 80069; 82306; 82570; 83970; 84156; 85027

== ENCOUNTER → 2023-12-29 | Outpatient (CLI) | payer OTHER, SELFPAY ==
[2020-05-30 07:03] VITALS: BMI 39.2
[2023-12-29 12:20] LABS: Hematocrit 42.8 % (40-54); Hemoglobin 13.9 g/dL (13.0-16.5); Mean Corp Hgb Conc 32.5 g/dL (32-36); Mean Corpuscular Volume 95.3 fL (80-94); Mean Platelet Vol. 11.3 fl (6.2-12.0); Platelet Count 217 K/mm3 (150-450); RBC Distribution Width CV 13.6 % (11.6-14.6); RBC Distribution Width SD 47.5 fl (35.1-43.9); Red Blood Count 4.49 M/mm3 (4.6-6.2); White Blood Count 5.3 K/mm3 (4.4-11.0)
[2023-12-29 12:56] LABS: ALB/GLOB Ratio 1.1 RATIO (0.9-2.4); AST(SGOT) 27 U/L (15-37); Alanine Aminotransfer ALT/SGPT 25 U/L (16-61); Albumin, Serum 3.9 g/dL (3.2-5.0); Alkaline Phosphatase 114 U/L (45-117); Anion Gap 6 (5-15); BUN 36 mg/dL (7-18); BUN/Creat Ratio 21.2 RATIO (10-20); Calcium,Total 9.7 mg/dL (8.5-10.1); Chloride 100 mmol/L (98-107); EST Glomerular Filtration Rate 43 mL/min (>60); Est Glom Filt Rate - Afr Amer 52 mL/min (>60); Globulin 3.6 g/dL (2.2-4.2); Glucose 99 mg/dL (74-106); Potassium 4.5 mmol/L (3.5-5.1); Protein, Total 7.5 g/dL (6.4-8.2); Sodium Level 137 mmol/L (136-145)
== END | disposition home or self-care (01) ==
LOC: MFPLAB 11:16
PROVIDERS: PCP Family Medicine; Visit Provider Family Medicine
DX: E11.8 Type 2 diabetes mellitus with unspecified complications (principal); I50.42 Chronic combined systolic (congestive) and diastolic (congestive) heart failure
CPT/HCPCS: 36415; 80053; 83880; 85027

== ENCOUNTER → 2024-07-06 | Outpatient (CLI) | payer MEDICARE, OTHER, SELFPAY ==
[2020-05-30 07:03] VITALS: BMI 39.2
[2024-07-06 12:31] LABS: Hematocrit 40.9 % (40-54); Hemoglobin 12.9 g/dL (13.0-16.5); Mean Corp Hgb Conc 31.5 g/dL (32-36); Mean Corpuscular Hgb 30.3 pg (27.0-32.0); Mean Platelet Vol. 10.8 fl (6.2-12.0); Platelet Count 212 K/mm3 (150-450); RBC Distribution Width CV 14.2 % (11.6-14.6); RBC Distribution Width SD 49.9 fl (35.1-43.9); Red Blood Count 4.26 M/mm3 (4.6-6.2); White Blood Count 5.4 K/mm3 (4.4-11.0)
[2024-07-06 12:44] LABS: Protein, Urine (Random) < 6.0 mg/dL (<11.9); Protein:Creat Ratio 120 mg/g CRE (0-200)
[2024-07-06 12:57] LABS: Albumin, Serum 3.7 g/dL (3.2-5.0); BUN 26 mg/dL (7-18); BUN/Creat Ratio 17.6 RATIO (10-20); Calcium,Total 9.3 mg/dL (8.5-10.1); Chloride 102 mmol/L (98-107); Creatinine, Serum 1.48 mg/dL (0.70-1.30); EST Glomerular Filtration Rate 51 mL/min (>60); Est Glom Filt Rate - Afr Amer 61 mL/min (>60); Glucose 121 mg/dL (74-106); Phosphorus 3.3 mg/dL (2.5-4.9); Potassium 4.4 mmol/L (3.5-5.1); Sodium Level 134 mmol/L (136-145)
[2024-07-06 13:01] LABS: Vitamin D,25 Hydroxy 25.8 ng/mL
== END | disposition home or self-care (01) ==
PROVIDERS: PCP Family Medicine; Referring Provider Internal Medicine Nephrology; Visit Provider Internal Medicine Nephrology
DX: N18.31 Chronic kidney disease, stage 3a (principal); D64.9 Anemia, unspecified
CPT/HCPCS: 36415; 80069; 82306; 82570; 83970; 84156; 85027

== ENCOUNTER → 2024-12-29 | Outpatient (CLI) | payer MEDICARE, OTHER, SELFPAY ==
[2020-05-30 07:03] VITALS: BMI 39.2
[2024-12-29 13:27] LABS: Cholesterol 129 mg/dL (<=200); High Density Lipoprotein 37 mg/dL; Low Density Lipoprotein Calc. 77 mg/dL; Triglycerides 75 mg/dL; Very Low Density Lipoprotein 15 mg/dL (5-40); cholesterol:hdl ratio screen 3.49
[2024-12-29 13:30] LABS: Hemoglobin A1c 6.7 % (<=5.6)
== END | disposition home or self-care (01) ==
PROVIDERS: PCP Family Medicine; Referring Provider Family Medicine; Visit Provider Family Medicine
DX: I25.10 Atherosclerotic heart disease of native coronary artery without angina pectoris (principal); E11.9 Type 2 diabetes mellitus without complications
CPT/HCPCS: 36415; 80061; 83036

== ENCOUNTER → 2025-01-26 | Outpatient (CLI) | payer MEDICARE, OTHER, SELFPAY ==
[2020-05-30 07:03] VITALS: BMI 39.2
[2025-01-26 15:33] LABS: Absolute Lymphocyte Count 1.68 X10^3/uL (0.83-4.51); Absolute Neutrophil Count 3.2 X10^3/uL (2.0-7.7); Basophil# 0.06 X10^3/uL; Basophil% 1.1 % (0-1); Eosinophil# 0.17 X10^3/uL; Eosinophils% 3.1 % (0-5); Hemoglobin 12.8 g/dL (13.0-16.5); Lymphocyte # 1.68 X10^3/ul (0.83-4.51); Lymphocyte % 30.2 % (19-41); Mean Corp Hgb Conc 31.2 g/dL (32-36); Mean Platelet Vol. 11.3 fl (6.2-12.0); Monocyte# 0.48 X10^3/uL; Monocyte% 8.6 % (0-10); NRBC Flagged by Analyzer 0 % (0-5); Neutrophil # 3.17 X10^3/uL (2.7-7.7); Neutrophil % 56.8 % (47-70); Platelet Count 212 K/mm3 (150-450); RBC Distribution Width CV 14.6 % (11.6-14.6); RBC Distribution Width SD 50.7 fl (35.1-43.9); Red Blood Count 4.27 M/mm3 (4.6-6.2); White Blood Count 5.6 K/mm3 (4.4-11.0)
[2025-01-26 17:34] LABS: Microalbumin,Random Urine < 12.0 mg/L (NO RANGE EST.); Microalbumin:Creatinine Ratio UNABLE TO CALCULATE mg/g CRE
[2025-01-26 18:11] LABS: ALB/GLOB Ratio 1.4 RATIO (0.9-2.4); AST(SGOT) 26 U/L (<=37); Alanine Aminotransfer ALT/SGPT 19 U/L (<=46); Albumin, Serum 4.2 g/dL (3.4-4.8); Alkaline Phosphatase 96 U/L (40-129); Anion Gap 11 (5-15); BUN 33 mg/dL (4-19); BUN/Creat Ratio 18.8 RATIO (10-20); Calcium,Total 9.4 mg/dL (7.6-11.0); Carbon Dioxide 26.9 mmol/L (21.0-32.0); Chloride 97 mmol/L (98-108); Creatinine, Serum 1.77 mg/dL (0.70-1.20); EST Glomerular Filtration Rate 42 (>60); Glucose 128 mg/dL (70-99); Potassium 4.6 mmol/L (3.3-5.1); Protein, Total 7.2 g/dL (5.9-8.4); Sodium Level 135 mmol/L (133-145); Total Bilirubin 0.52 mg/dL (0.00-1.30)
== END | disposition home or self-care (01) ==
LOC: MFPLAB 13:50
PROVIDERS: PCP Family Medicine; Referring Provider Family Medicine; Visit Provider Family Medicine
DX: E11.8 Type 2 diabetes mellitus with unspecified complications (principal)
CPT/HCPCS: 36415; 80053; 82043; 82570; 85025

== ENCOUNTER → 2025-03-07 | Outpatient (CLI) | payer MEDICARE, OTHER, SELFPAY ==
[2020-05-30 07:03] VITALS: BMI 39.2
--- NOTE | 2025-03-07 06:15 | ECHOCS_ITS ---
Reason For Study : Afib, Aflutter Procedure This was a 2D Doppler, Color Flow transthoracic echocardiogram. Contrast injection was performed. Exam performed in department. Left Ventricle Normal LV size. The left ventricular ejection fraction is 55 %. Stage 2 diastolic dysfunction. No regional wall motion abnormalities noted. Right Ventricle Normal RV size. Normal systolic function. Atria Normal left atrium. Normal right atrium. Mitral Valve Mitral valve not well visualized. Tricuspid Valve The tricuspid valve is not well visualized. Aortic Valve The aortic valve is not well visualized. Peak aortic valve gradient 49 mmHg. Mean aortic valve gradient 31 mmHg. Moderate aortic stenosis. Great Vessels Normal aortic root. Pericardium/Pleural No pericardial effusion. Medication Diluted definity 2ml given slow IV push to enhance endocardial definition. MMode/2D Measurements & Calculations LVIDd: 5.9 cm IVSd: 1.1 cm LVOT diam: 2.3 cm LVIDs: 5.0 cm LVPWd: 0.99 cm LVOT area: 4.1 cm2 RVDd: 4.3 cm FS: 16.1 % Ao root diam: 3.4 cm LAV(MOD-bp): 78.0 ml LVAd ap4: 53.2 cm2 LAV(MOD-bp) Indexed: 31.5 ml/m2 LVLd ap4: 10.0 cm LAV(MOD-sp2): 73.7 ml EDV(MOD-sp4): 232.0 ml LAV(MOD-sp4): 83.8 ml EDV(sp4-el): 239.6 ml LVAs ap4: 34.5 cm2 LVLs ap4: 8.2 cm ESV(MOD-sp4): 117.4 ml ESV(sp4-el): 122.9 ml EF(MOD-sp4): 49.4 % EF(sp4-el): 48.7 % SV(MOD-sp4): 114.6 ml SV(sp4-el): 116.7 ml LA A4 area: 24.6 cm2 SI(MOD-sp4): 46.3 ml/m2 LA dimension(2D): 5.0 cm RA A4 area: 17.3 cm2 TAPSE: 1.4 cm Time Measurements MV dec time: 0.15 sec Doppler Measurements & Calculations MV E max nhan: 89.0 cm/sec Lat Peak E' Nhan: 8.8 cm/sec Med Peak E' Nhan: 4.2 cm/sec MV A max nhan: 51.7 cm/sec E/E' lat: 10.1 E/E' med: 21.0 MV E/A: 1.7 Ao V2 max: 351.0 cm/sec LV V1 max: 114.1 cm/sec MV dec slope: 609.3 cm/sec2 Ao max P.4 mmHg LV V1 max P.2 mmHg Ao V2 mean: 272.1 cm/sec LV V1 mean P.1 mmHg Ao mean P.4 mmHg LV V1 mean: 84.0 cm/sec Ao V2 VTI: 96.9 cm LV V1 VTI: 30.3 cm AV (velocity ratio): 0.31 ALBINO(I,D): 1.3 cm2 ALBINO(V,D): 1.3 cm2 SV(LVOT): 123.5 ml PA V2 max: 104.7 cm/sec ECHO/Echo Complete W/ Contrast Interpretation Summary The left ventricular ejection fraction is 55 %. Normal LV size. No regional wall motion abnormalities noted. Mean aortic valve gradient 31 mmHg. Moderate aortic stenosis. Stage 2 diastolic dysfunction. Contrast injection was performed. Ordering Physician: Ian Rondon Referring Physician: Josué Rodriguez Performed By: Yelena España, VANNESA, RVT
--- OUTSIDE RECORDS SUMMARY | 2025-03-07 06:15 | XMS RPT_ITS | CCD ---
Author Organization [facility] Care Team Providers Care Obstetrics Specialist Name Role Phone Dr. Josué Rodriguez Primary Care Provider Dr. Josué Rodriguez Referring Provider [phone] Mendoza QUILL REAMER, QUILL REAMER-C Kika Attending Provider [phone] Taco QUILL REAMER, QUILL REAMER-C Jefferson Fletcher Attending Provider Dr. Josué Rodriguez Primary Care Provider [phone] Josué Rodriguez Referring Provider [phone] Dr. Phi Sutherland Attending Provider Dr. Josué Rodriguez Primary Care Provider [phone] Josué Rodriguez Referring Provider [phone] Roof QUILL REAMER, QUILL REAMER-C Jefferson Fletcher Attending Provider Dr. Josué Rodriguez Primary Care Provider [phone] Josué Rodriguez Referring Provider Dr. Phi Sutherland Attending Provider Dr. Josué Rodriguez Primary Care Provider [phone] Josué Rodriguez Referring Provider Taco QUILL REAMER, QUILL REAMER-C Jefferson Fletcher Attending Provider Kelly QUILL REAMER, QUILL REAMER-C Kika Attending Provider Dr. Josué Rodriguez MD Primary Care Provider Dr. Josué Rodriguez MD Attending Provider [phone] Josué Rodriguez MD Referring Provider [phone] Nela CHAPPELL, Dr. Sosa Attending Provider [phone] Josué Rodriguez Primary Care Unavailable Rodriguez, Josué Referring Unavailable Michael Josué Attending Unavailable Sharon Robles Attending Unavailable Rodriguez, Josué Primary Care Unavailable Sharon Robles Referring Unavailable Rodriguez, Josué Primary Care Unavailable Rodriguez, Josué Referring Unavailable Rodriguez, Josué Attending Unavailable Rodriguez, Josué Primary Care Unavailable NelaBuck naiduril Referring Unavailable NelaBuck naiduril Attending Unavailable Rodriguez, Josué Primary Care Unavailable Rodriguez, Josué Referring Unavailable Kika Mendoza Attending Unavailable Rodriguez, Josué Primary Care Unavailable Rodriguez, Josué Referring Unavailable NelaIan naidu Attending Unavailable Rodriguez, Josué Primary Care Unavailable Rodriguez, Josué Referring Unavailable NelaIan naidu Attending Unavailable Medications Current Medications Medication Drug Class(es) Dates Sig (Normalized) Sig (Original) acetaminophen 500 mg oral tablet (18 sources) Start: 01-31-2020 take 2 tablets by mouth every six hours as needed for pain Acetaminophen 500 MG tablet Active 1000 mg PO EVERY 6 HOURS as needed for Pain Score 1-06/16January 31, 2020 12:00am Start: 01-31-2020 take 1000 mg by mout h every six hours Acetaminophen Active 1000 MG PO EVERY 6 HOURS January 31, 2020 12:00am Start: 01-04-2020 End: 01-18-2020 take 2 tablets by mouth every six hours as needed for pain Acetaminophen 500 MG tablet Discontinued 1000 mg PO EVERY 6 HOURS NEEDED as needed for Pain Or Fever January 04, 2020 12:00am January 18, 2020 8:52am Start: 01-04-2020 End: 01-18-2020 take 1000 mg by mouth every six hours as needed Acetaminophen Discontinued 1000 MG PO EVERY 6 HOURS NEEDED January 04, 2020 12:00am January 18, 2020 8:52am atorvastatin 80 mg oral tablet (9 sources) HMG-CoA Reductase Inhibitor Start: 11-17-2019 take 1 tablet by mouth at bedtime Atorvastatin 80 mg tablet Active 80 mg PO AT BEDTIME November 17, 2019 12:00am busPIRone hydrochloride 10 mg oral tablet (9 sources) Start: 07-16-2021 take 1 tablet by mouth once daily Buspirone 10 mg tablet Active 10 mg PO DAILY July 16, 2021 1:00am empagliflozin 25 mg oral tablet (12 sources) Sodium-Glucose Cotransporter 2 Inhibitor Start: 08-05-2022 take 1 tablet by mouth once daily Empagliflozin (Jardiance) 25 mg tablet Active 25 mg PO DAILY August 05, 2022 1:00am Start: 05-14-2022 End: 08-05-2022 take 1 tablet by mouth once daily Empagliflozin (Jardiance) 10 mg tablet Discontinued 10 mg PO DAILY May 14, 2022 12:00am August 05, 2022 3:56pm famotidine 20 mg oral tablet (9 sources) Histamine-2 Receptor Antagonist Start: 10-15-2021 take 1 tablet by mouth once daily Famotidine 20 mg tablet Active 20 mg PO DAILY October 15, 2021 1:00am fluticasone propionate 0.05 mg/actuat metered dose nasal spray (20 sources) Corticosteroid Start: 12-11-2020 End: 08-05-2022 Fluticasone Propionate 50 mcg/actuation spray,suspension Active 2 NMA INTRANASAL DAILY August 05, 2022 3:59pm Start: 12-11-2020 End: 08-05-2022 Fluticasone Propionate Activ e 2 SPRAY INTRANASAL DAILY August 05, 2022 3:59pm Start: 11-17-2019 End: 01-18-2020 Fluticasone Propionate 50 mc g/actuation spray,suspension Discontinued 1 NMA NASAL DAILY November 17, 2019 12:00am January 18, 2020 9:58am Start: 11-17-2019 End: 01-18-2020 Fluticasone Propionate Disco ntinued 1 SPRAY NASAL DAILY November 17, 2019 12:00am January 18, 2020 9:58am furosemide 80 mg oral tablet (20 sources) Loop Diuretic Start: 07-16-2021 Furosemide 80 mg tablet Active 40 mg PO DAILY July 16, 2021 10:54am Start: 07-16-2021 take 40 mg by mouth once daily Furosemide Active 40 MG PO DAILY July 16, 2021 10:54am Start: 03-19-2020 End: 07-16-2021 take 1 tablet by mouth once daily Furosemide 80 mg tablet Discontinued 80 mg PO DAILY March 19, 2020 3:11pm July 16, 2021 10:58am Start: 01-31-2020 End: 03-19-2020 take 1 tablet by mouth twice daily Furosemide 80 mg tablet Discontinued 80 mg PO TWICE DAILY March 08, 2020 11:33am March 19, 2020 3:11pm Start: 01-20-2020 End: 01-31-2020 take 2 tablets by mouth once daily Furosemide 40 mg tablet Discontinued 80 mg PO DAILY@09January 20, 2020 8:53am January 31, 2020 8:29pm Start: 01-20-2020 End: 01-31-2020 take 80 mg by mouth once daily Furosemide Discontinued 80 MG PO DAILY@09January 20, 2020 8:53am January 31, 2020 8:29pm Start: 01-20-2020 End: 01-31-2020 take 1 tablet by mouth once daily Furosemide 40 MG tablet Discontinued 40 mg PO DAILY@1500 January 20, 2020 5:19pm January 31, 2020 8:29pm Start: 01-07-2020 End: 01-20-2020 take 1 tablet by mouth twice daily Furosemide 40 MG tablet Discontinued 40 mg PO TWICE DAILY 60 January 07, 2020 12:00am February 05, 2020 12:00am January 20, 2020 9:03am Start: 01-04-2020 End: 01-07-2020 take 1 tablet by mouth once daily Furosemide 40 MG tablet Discontinued 40 mg PO DAILY January 04, 2020 9:47am January 07, 2020 11:52am Start: 11-18-2019 End: 01-04-2020 take 1 tablet by mouth twice daily Furosemide 40 MG tablet Discontinued 40 mg PO BID@1000,1800 60 November 18, 2019 12:00am January 04, 2020 9:47am Insulin Glargine U-300 Conc (Toujeo Max U-300 Solostar) 300 unit/mL (3 mL) insulin pen (2 sources) Start: 12-01-2023 Insulin Glargi ne U-300 Conc (Toujeo Max U-300 Solostar) 300 unit/mL (3 mL) insulin pen Active 22 U SC DAILY December 01, 2023 12:00am Start: 12-01-2023 Insulin Glargi ne U-300 Conc (Toujeo Max U-300 Solostar) 300 unit/mL (3 mL) insulin pen Active 22 UNIT SC DAILY December 01, 2023 12:00am ipratropium bromide 0.042 mg/actuat metered dose nasal spray (9 sources) Anticholinergic Start: 11-17-2019 Ipratropium Br omide 42 mcg (0.06 %) spray,non-aerosol Active 1 NMA INHALATION DAILY NEEDED as needed for Allergies November 17, 2019 12:00am Start: 11-17-2019 take 1 spray(s) by i nhalation once daily as needed Ipratropium [place] Active 1 SPRAY INHALATION DAILY NEEDED November 17, 2019 12:00am levocetirizine dihydrochloride 5 mg oral tablet (18 sources) Histamine-1 Receptor Antagonist Start: 11-17-2019 End: 01-20-2020 take 1 tablet by mouth once daily Levocetirizine 5 mg tablet Active 5 mg PO DAILY January 20, 2020 8:58am levothyroxine sodium 0.05 mg oral tablet (9 sources) l-Thyroxine Start: 12-11-2020 take 1 tablet by mouth once daily Levothyroxine 50 mcg tablet Active 50 ug PO DAILY December 11, 2020 12:00am losartan potassium 25 mg oral tablet (20 sources) Angiotensin 2 Receptor Ronen Start: 08-05-2022 take 1 tablet by mouth at bedtime Losartan 25 mg tablet Active 25 mg PO AT BEDTIME August 05, 2022 1:00am Start: 10-16-2021 End: 08-05-2022 Losartan 50 mg tablet Discon tinued 25 mg PO DAILY October 16, 2021 1:00am August 05, 2022 3:57pm Start: 10-16-2021 End: 08-05-2022 take 25 mg by mouth once daily Losartan Discontinued 2 5 MG PO DAILY October 16, 2021 1:00am August 05, 2022 3:57pm Start: 01-20-2020 End: 07-16-2021 take 1 tablet by mouth once daily Losartan 50 mg tablet Discontinued 50 mg PO DAILY January 20, 2020 12:00am July 16, 2021 10:53am Start: 11-17-2019 End: 01-20-2020 Losartan 100 MG tablet Disco ntinued 50 mg PO DAILY November 17, 2019 12:00am January 20, 2020 9:00am Start: 11-17-2019 End: 01-20-2020 take 50 mg by mouth once daily Losartan Discontinued 5 0 MG PO DAILY November 17, 2019 12:00am January 20, 2020 9:00am metoprolol tartrate 50 mg oral tablet (20 sources) beta-Adrenergic Ronen Start: 08-05-2022 take 1 tablet by mouth twice daily Metoprolol Tartrate 50 mg tablet Active 50 mg PO TWICE A DAY August 05, 2022 1:00am Start: 07-16-2021 End: 08-05-2022 Metoprolol Tartrate 100 mg t ablet Discontinued 50 mg PO TWICE A DAY July 16, 2021 10:54am August 05, 2022 3:57pm Start: 07-16-2021 End: 08-05-2022 take 50 mg by mouth twice daily Metoprolol Tartrate Di scontinued 50 MG PO TWICE A DAY July 16, 2021 10:54am August 05, 2022 3:57pm Start: 01-18-2020 End: 07-16-2021 take 1 tablet by mouth twice daily Metoprolol Tartrate 100 MG tablet Discontinued 100 mg PO TWICE A DAY January 20, 2020 5:21pm July 16, 2021 10:58am Start: 01-04-2020 End: 01-18-2020 take 1 tablet by mouth three times daily Metoprolol Tartrate 50 MG tablet Discontinued 50 mg PO THREE TIMES A DAY January 04, 2020 12:00am January 18, 2020 8:46am pioglitazone 30 mg oral tablet (18 sources) Peroxisome Proliferator Receptor alpha Agonist, Peroxisome Proliferator Receptor gamma Agonist, Thiazolidinedione Start: 10-16-2021 take 1 tablet by mouth once daily Pioglitazone 30 mg tablet Active 30 mg PO DAILY October 16, 2021 1:00am Start: 12-11-2020 End: 10-16-2021 take 1 tablet by mouth once daily Pioglitazone 45 mg tablet Discontinued 45 mg PO DAILY December 11, 2020 12:00am October 16, 2021 10:03am Semaglutide (9 sources) Start: 10-16-2021 Semaglutide (O zempic) 1 mg/dose (4 mg/3 mL) pen injector Active 1 MG SC EVERY WEEK October 16, 2021 10:02am Start: 10-16-2021 End: 08-05-2022 Semaglutide (Ozempic) 1 mg/d ose (4 mg/3 mL) pen injector Discontinued 1 mg SC EVERY WEEK October 16, 2021 1:00am August 05, 2022 4:00pm Start: 10-16-2021 End: 08-05-2022 Semaglutide (Ozempic) 1 mg/d ose (4 mg/3 mL) pen injector Discontinued 1 MG SC EVERY WEEK October 16, 2021 12:00am August 05, 2022 3:00pm Start: 10-16-2021 End: 08-05-2022 Semaglutide (Ozempic) 1 mg/d ose (4 mg/3 mL) pen injector Discontinued 1 MG SC EVERY WEEK October 16, 2021 1:00am August 05, 2022 4:00pm Start: 10-16-2021 Semaglutide (O zempic) 1 mg/dose (4 mg/3 mL) pen injector Active 1 MG SC EVERY WEEK October 16, 2021 1:00am Semaglutide (Ozempic) 2 mg/dose (8 mg/3 mL) pen injector (1 source) Start: 01-05-2025 Semaglutide (Ozempic) 2 mg/dose (8 mg/3 mL) pen injector Active 2 mg SC EVERY WEEK January 05, 2025 12:00am temazepam 15 mg oral capsule (9 sources) Benzodiazepine Start: 11-17-2019 take 1 capsule by mouth at bedtime as needed Temazepam 15 MG capsule Active 15 mg PO AT BEDTIME NEEDED as needed for Insomnia November 17, 2019 12:00am Completed/Discontinued Medications Medication Drug Class(es) Dates Sig (Normalized) Sig (Original) amiodarone hydrochloride 200 mg oral tablet (20 sources) Antiarrhythmic Start: 01-07-2020 End: 01-18-2020 take 2 tablets by mouth twice daily Amiodarone 200 MG tablet Discontinued 400 mg PO TWICE A DAY 4 January 07, 2020 12:00am January 09, 2020 12:00am January 18, 2020 8:47am Start: 01-07-2020 End: 07-16-2021 take 1 tablet by mouth once daily Amiodarone 200 mg tablet Discontinued 200 mg PO DAILY February 05, 2021 1:12pm July 16, 2021 11:56am start from 01/10/20 Start: 01-07-2020 End: 01-18-2020 take 400 mg by mouth twice daily Amiodarone Discontinued 400 MG PO TWICE A DAY 4 January 07, 2020 12:00am January 18, 2020 8:47am apixaban 5 mg oral tablet (20 sources) Factor Xa Inhibitor Start: 07-11-2024 End: 01-05-2025 take 1 tablet by mouth twice daily Apixaban (Eliquis) 5 mg tablet Discontinued 5 mg PO TWICE A DAY September 02, 2024 2:24pm January 05, 2025 10:58am Start: 01-31-2020 End: 07-16-2021 take 1 tablet by mouth twice daily Apixaban 5 MG tablet Discontinued 5 mg PO TWICE A DAY January 31, 2020 12:00am July 16, 2021 11:56am Start: 01-07-2020 End: 01-26-2020 take 1 tablet by mouth twice daily Apixaban 5 MG tablet Discontinued 5 mg PO TWICE A DAY January 20, 2020 5:21pm January 26, 2020 11:21am aspirin 81 mg delayed release oral tablet (20 sources) Platelet Aggregation Inhibitor, Nonsteroidal Anti-inflammatory Drug Start: 12-08-2023 End: 01-05-2025 take 1 tablet by mouth once daily Aspirin 81 mg tablet,delayed release (DR/EC) Discontinued 81 mg PO DAILY December 08, 2023 12:00am January 05, 2025 10:24am Start: 10-16-2021 End: 12-01-2023 take 1 tablet by mouth once daily Aspirin (Adult Aspirin Regimen) 81 mg tablet,delayed release (DR/EC) Discontinued 81 mg PO daily October 16, 2021 1:00am December 01, 2023 10:09am Start: 01-04-2020 End: 07-16-2021 Aspirin 81 mg tablet,chewabl e Discontinued 1 {tbl} PO DAILY@0800 January 20, 2020 8:52am July 16, 2021 11:56am Start: 11-18-2019 End: 07-16-2021 take 1 tablet by mouth once daily Aspirin 81 MG tablet,chewable Discontinued 81 mg PO DAILY@0800 30 November 18, 2019 12:00am January 04, 2020 9:47am bisacodyl 5 mg delayed release oral tablet (9 sources) Stimulant Laxative Start: 01-04-2020 End: 01-18-2020 take 2 tablets by mouth at bedtime Bisacodyl 5 MG tablet Discontinued 10 mg PO AT BEDTIME January 04, 2020 12:00am January 18, 2020 8:52am Start: 01-04-2020 End: 01-18-2020 take 10 mg by mouth at bedtime Bisacodyl Discontinued 10 MG PO AT BEDTIME January 04, 2020 12:00am January 18, 2020 8:52am Dulaglutide (11 sources) GLP-1 Receptor Agonist Start: 08-12-2023 End: 01-05-2025 Dulaglutide (Trulicity) 4.5 mg/0.5 mL pen injector Discontinued 4.5 mg SC EVERY WEEK August 12, 2023 1:00am January 05, 2025 10:24am Start: 08-12-2023 Dulaglutide (T rulicity) 4.5 mg/0.5 mL pen injector Active 4.5 MG SC EVERY WEEK August 12, 2023 1:00am Start: 07-16-2021 End: 10-15-2021 Dulaglutide (Trulicity) 3 mg /0.5 mL pen injector Discontinued 3 MG SC EVERY WEEK July 16, 2021 10:55am October 15, 2021 8:39am Start: 07-16-2021 End: 10-15-2021 Dulaglutide (Trulicity) 3 mg /0.5 mL pen injector Discontinued 3 mg SC EVERY WEEK July 16, 2021 1:00am October 15, 2021 8:39am Start: 07-16-2021 End: 10-15-2021 Dulaglutide (Trulicity) 3 mg /0.5 mL pen injector Discontinued 3 MG SC EVERY WEEK July 16, 2021 12:00am October 15, 2021 7:39am Start: 07-16-2021 End: 10-15-2021 Dulaglutide (Trulicity) 3 mg /0.5 mL pen injector Discontinued 3 MG SC EVERY WEEK July 16, 2021 1:00am October 15, 2021 8:39am gabapentin 100 mg oral capsule (9 sources) Anti-epileptic Agent Start: 01-04-2020 End: 03-01-2020 take 2 capsules by mouth once daily Gabapentin 100 MG capsule Discontinued 200 mg PO DAILY January 04, 2020 12:00am March 01, 2020 10:23am Start: 01-04-2020 End: 03-01-2020 take 200 mg by mouth once daily Gabapentin Discontinued 200 MG PO DAILY January 04, 2020 12:00am March 01, 2020 10:23am 12 hr guaiFENesin 600 mg extended release oral tablet (9 sources) Start: 01-04-2020 End: 01-18-2020 take 1 tablet by mouth twice daily Guaifenesin 600 MG tablet extended release 12hr Discontinued 600 mg PO TWICE A DAY January 04, 2020 12:00am January 18, 2020 8:46am 3 ml insulin glargine 100 unt/ml pen injector (20 sources) Insulin Analog Start: 10-16-2021 End: 12-08-2023 Insulin Glargine 100 unit/mL (3 mL) insulin pen Discontinued 22 U SC AT BEDTIME October 16, 2021 10:01am December 08, 2023 8:11am Start: 01-20-2020 End: 10-16-2021 Insulin Glargine 100 UNITS/M L insulin pen Discontinued 10 U SC AT BEDTIME January 20, 2020 5:21pm October 16, 2021 10:05am Start: 01-20-2020 End: 10-16-2021 Insulin Glargine Discontinue d 10 UNITS SC AT BEDTIME January 20, 2020 5:21pm October 16, 2021 10:05am Start: 01-18-2020 End: 01-20-2020 inject 10 [IU] by subcutaneous injection at bedtime Insulin Glargine 100 UNITS/ML insulin pen Discontinued 10 U subcut AT BEDTIME January 18, 2020 12:00am January 20, 2020 5:22pm Start: 01-18-2020 End: 01-20-2020 inject 10 [IU] by subcutaneous injection at bedtime Insulin Glargine Discontinued 10 UNITS subcut AT BEDTIME January 18, 2020 12:00am January 20, 2020 5:22pm Start: 01-04-2020 End: 01-18-2020 inject 45 [IU] by subcutaneous injection twice daily before mealtime Insulin Glargine 100 UNITS/ML insulin pen Discontinued 45 U subcut TWICE A DAY January 04, 2020 12:00am January 18, 2020 8:46am before meals Start: 01-04-2020 End: 01-18-2020 inject 45 [IU] by subcutaneous injection twice daily before mealtime Insulin Glargine Discontinued 45 UNITS subcut TWICE A DAY January 04, 2020 12:00am January 18, 2020 8:46am before meals 3 ml insulin lispro 100 unt/ml pen injector (20 sources) Insulin Analog Start: 01-26-2020 End: 01-31-2020 Insulin Lispro 100 UNIT/ML insulin pen Discontinued 0 U SC BEFORE MEALS AND AT BEDTIME January 27, 2020 6:12am January 31, 2020 8:29pm Please contact the information source for Protocol details. Start: 01-04-2020 End: 01-18-2020 inject 22 [IU] by subcutaneous injection three times daily at mealtime Insulin Lispro 100 UNIT/ML insulin pen Discontinued 22 U SQ 3 TIMES DAILY WITH MEALS January 04, 2020 12:00am January 18, 2020 8:46am lidocaine 0.04 mg/mg medicated patch (9 sources) Antiarrhythmic, Amide Local Anesthetic Start: 01-04-2020 End: 01-18-2020 apply 1 dose transdermal route once daily Lidocaine 1 EACH adhesive patch,medicated Discontinued 1 NMA TP DAILY January 04, 2020 12:00am January 18, 2020 8:55am q24 hours. on for 12, off for 12. cut and put on either side of sternal incision. magnesium oxide 400 mg oral tablet (9 sources) Start: 01-04-2020 End: 03-01-2020 take 1 tablet by mouth once daily Magnesium Oxide 400 MG tablet Discontinued 400 mg PO DAILY January 04, 2020 12:00am March 01, 2020 10:23am menthol 0.0044 mg/mg / zinc oxide 0.206 mg/mg topical ointment (9 sources) Start: 01-31-2020 End: 12-11-2020 Menthol-Zinc Oxide 1 APPLIC ointment Discontinued 1 NMA TOPICAL January 31, 2020 12:00am December 11, 2020 9:40am Please contact the information source for Protocol details. Start: 01-31-2020 End: 12-11-2020 Menthol-Zinc Oxide Discontin ued 1 APPLIC TOPICAL January 31, 2020 12:00am December 11, 2020 9:40am metFORMIN hydrochloride 1000 mg oral tablet (20 sources) Biguanide Start: 12-01-2023 End: 01-05-2025 take 1 tablet by mouth twice daily Metformin 1,000 mg tablet Discontinued 1000 mg PO TWICE A DAY December 01, 2023 12:00am January 05, 2025 10:25am Start: 05-12-2023 End: 12-01-2023 take 1 tablet by mouth twice daily Metformin 500 mg tablet extended release 24hr Discontinued 500 mg PO TWICE A DAY May 12, 2023 12:00am December 01, 2023 9:35am Start: 05-14-2022 End: 03-03-2023 take 1 tablet by mouth twice daily Metformin 500 mg tablet Discontinued 500 mg PO TWICE A DAY May 14, 2022 12:00am March 03, 2023 8:33am Start: 11-17-2019 End: 07-16-2021 take 1 tablet by mouth twice daily at mealtime Metformin 1,000 mg tablet Discontinued 1000 mg PO TWICE DAILY WITH MEALS January 20, 2020 8:57am July 16, 2021 10:54am Mineral Oil/Petrolatum,White (Eucerin) 1 APPLIC Jar (9 sources) Start: 01-31-2020 End: 10-16-2021 Mineral Oil/Petrolatum,White (Eucerin) 1 APPLIC Jar Discontinued 1 APPLIC TOPICAL AT BEDTIME January 31, 2020 8:27pm October 16, 2021 10:05am Start: 01-31-2020 End: 10-16-2021 Mineral Oil/Petrolatum,White (Eucerin) 1 APPLIC Jar Discontinued 1 NMA TOPICAL AT BEDTIME January 31, 2020 12:00am October 16, 2021 10:05am Please contact the information source for Protocol details. Start: 01-31-2020 End: 10-16-2021 Mineral Oil/Petrolatum,White (Eucerin) 1 APPLIC Jar Discontinued 1 APPLIC TOPICAL AT BEDTIME January 30, 2020 11:00pm October 16, 2021 9:05am Start: 01-31-2020 End: 10-16-2021 Mineral Oil/Petrolatum,White (Eucerin) 1 APPLIC Jar Discontinued 1 APPLIC TOPICAL AT BEDTIME January 31, 2020 12:00am October 16, 2021 10:05am nystatin 100 unt/mg topical powder (9 sources) Polyene Antifungal Start: 01-31-2020 End: 03-08-2020 Nystatin 1 APPLIC bottle Discontinued 1 NMA TOPICAL 0600,2200 January 31, 2020 12:00am March 08, 2020 11:12am Please contact the information source for Protocol details. Start: 01-31-2020 End: 03-08-2020 Nystatin Discontinued 1 APPL IC TOPICAL 0600,2200 January 31, 2020 12:00am March 08, 2020 11:12am omeprazole 20 mg delayed release oral capsule (18 sources) Proton Pump Inhibitor Start: 03-08-2020 End: 10-16-2021 take 1 capsule by mouth once daily as needed Omeprazole 20 mg capsule,delayed release(DR/EC) Discontinued 20 mg PO DAILY as needed December 11, 2020 9:41am October 16, 2021 10:33am oxyCODONE hydrochloride 5 mg oral tablet (9 sources) Opioid Agonist Start: 01-04-2020 End: 01-18-2020 take 1 tablet by mouth every six hours as needed for pain Oxycodone 5 MG tablet Discontinued 5 mg PO EVERY 6 HOURS NEEDED as needed for Pain Score 1-06/16January 04, 2020 12:00am January 18, 2020 8:51am pantoprazole 40 mg delayed release oral tablet (18 sources) Proton Pump Inhibitor Start: 01-18-2020 End: 03-08-2020 take 1 tablet by mouth twice daily Pantoprazole 40 MG tablet Discontinued 40 mg PO TWICE A DAY January 20, 2020 5:19pm March 08, 2020 11:12am polyethylene glycol 3350 18608 mg powder for oral solution (9 sources) Osmotic Laxative Start: 01-04-2020 End: 01-31-2020 take 17 g by mouth once daily Polyethylene Glycol 3350 17 GM packet Discontinued 17 g PO DAILY January 04, 2020 12:00am January 31, 2020 8:28pm microencapsulated potassium chloride 20 meq extended release oral tablet (20 sources) Start: 01-26-2020 End: 03-08-2020 take 1 tablet by mouth once daily Potassium Chloride 20 MEQ tablet Discontinued 20 meq PO DAILY January 31, 2020 8:29pm March 08, 2020 11:12am potassium citrate 15 meq extended release oral tablet (9 sources) Start: 03-08-2020 End: 12-11-2020 take 1 tablet by mouth once daily Potassium Citrate 15 mEq tablet extended release Discontinued 15 meq PO DAILY March 08, 2020 12:00am December 11, 2020 9:41am rivaroxaban 20 mg oral tablet (4 sources) Factor Xa Inhibitor Start: 12-01-2023 End: 07-11-2024 take 1 tablet by mouth once daily at dinner Rivaroxaban (Xarelto) 20 mg tablet Discontinued 20 mg PO DAILY December 03, 2023 8:39am July 11, 2024 3:28pm must administer with evening meal 0.25 mg, 0.5 mg dose 1.5 ml semaglutide 1.34 mg/ml pen injector (9 sources) Start: 12-11-2020 End: 10-16-2021 Semaglutide 0.25 mg or 0.5 mg(2 mg/1.5 mL) pen injector Discontinued 0.25 mg SC EVERY WEEK December 11, 2020 12:00am October 16, 2021 10:02am sennosides, halfway 8.6 mg oral capsule (9 sources) Start: 01-04-2020 End: 01-18-2020 take 1 capsule by mouth twice daily Sennosides 8.6 MG capsule Discontinued 8.6 mg PO TWICE A DAY January 04, 2020 12:00am January 18, 2020 8:50am 1 ml testosterone cypionate 200 mg/ml injection (20 sources) Androgen Start: 12-08-2023 End: 01-05-2025 inject 400 mg by intramuscular injection every other week Testosterone Cypionate 200 mg/mL oil Discontinued 400 mg IM every 2 weeks December 08, 2023 12:00am January 05, 2025 10:25am Start: 12-08-2023 inject 400 mg by int ramuscular injection every other week Testosterone Cypionate Active 400 MG IM every 2 weeks December 08, 2023 12:00am Start: 12-11-2020 End: 08-05-2022 inject 200 mg by intramuscular injection every other week Testosterone Cypionate 200 mg/mL oil Discontinued 200 mg IM every 2 weeks December 11, 2020 12:00am August 05, 2022 4:00pm Start: 12-11-2020 End: 08-05-2022 inject 200 mg by intramuscular injection every other week Testosterone Cypionate Discontinued 200 MG IM every 2 weeks December 11, 2020 12:00am August 05, 2022 4:00pm Start: 11-17-2019 End: 01-20-2020 inject 200 mg by intramuscular injection every two months Testosterone Cypionate 200 MG/ML oil Discontinued 200 mg IM ONE TIME November 17, 2019 12:00am January 20, 2020 9:03am Q2 month Start: 11-17-2019 End: 01-20-2020 inject 200 mg by intramuscular injection every two months Testosterone Cypionate Discontinued 200 MG IM ONE TIME November 17, 2019 12:00am January 20, 2020 9:03am Q2 month Problems Problem Classification Problem Date Documented Da te Episodic/Chronic Acute and unspecified renal failure (9 sources) Injury of kidney; Translations: [Acute kidney failure, unspecified] 07-13-2020 Episodic Cardiac dysrhythmias (14 sources) Paroxysmal atrial fibrillation; Translations: [Paroxysmal atrial fibrillation] Onset: 12-07-2019 Chronic Chronic kidney disease (1 source) Chronic kidney disease; Translations: [Chronic kidney disease, stage 3a] Onset: 08-03-2024 Chronic ulcer of skin (9 sources) Pressure ulcer of unspecified site, unspecified stage; Translations: [Pressure injury of skin] 02-12-2021 Chronic Complications of surgical procedures or medical care (9 sources) Dehiscence of surgical wound; Translations: [Disruption of internal operation (surgical) wound, not elsewhere classified, initial encounter] 07-14-2020 Episodic Congestive heart failure; nonhypertensive (20 sources) Acute exacerbation of chronic congestive heart failure; Translations: [Heart failure, unspecified] Chronic Coronary atherosclerosis and other heart disease (20 sources) History of non-ST segment elevation myocardial infarction; Translations: [Old myocardial infarction] Onset: 01-04-2020 Chronic Comment on above: 11/17/2019, 01/04/2020 Coronary atherosclerosis and other heart disease (5 sources) Presence of aortocoronary bypass graft; Translations: [Aortocoronary bypass status] Onset: 12-26-2019 Episodic Deficiency and other anemia (9 sources) Anemia; Translations: [Anemia, unspecified] 01-19-2020 Episodic Diabetes mellitus with complications (1 source) Type 2 diabetes mellitus with unspecified complications; Translations: [Type 2 diabetes mellitus with unspecified complications] Onset: 02-02-2025 Chronic Disorders of lipid metabolism (14 sources) Hypercholesterolemia ; Translations: [Pure hypercholesterolemia , unspecified] Chronic Essential hypertension (14 sources) Essential hypertension; Translations: [Essential (primary) hypertension] Chronic Neoplasms of unspecified nature or uncertain behavior (9 sources) Thrombocytosis; Translations: [Thrombocythemia] 02-22-2020 Episodic Other nervous system disorders (9 sources) Unresponsive ; Translations: [Other symptoms and signs involving cognitive functions and awareness] 07-13-2020 Episodic Other nutritional; endocrine; and metabolic disorders (9 sources) Morbid obesity; Translations: [Obesity, unspecified] 12-11-2020 Chronic Other nutritional; endocrine; and metabolic disorders (6 sources) Obesity, unspecified; Translations: [Obesity, unspecified] Chronic Other screening for suspected conditions (not mental disorders or infectious disease) (12 sources) Lung function testing abnormal; Translations: [Abnormal results of pulmonary function studies] Episodic Other upper respiratory disease (9 sources) Allergic rhinitis; Translations: [Allergic rhinitis, unspecified] 07-13-2020 Chronic Pulmonary heart disease (12 sources) Pulmonary arterial hypertension; Translations: [Secondary pulmonary arterial hypertension] Chronic Residual codes; unclassified (9 sources) Obstructive sleep apnea syndrome; Translations: [Obstructive sleep apnea (adult) (pediatric)] 07-13-2020 Chronic Comment on above: BiPAP 20/16 cmH2O wi th a 2 L/min supplemental oxygen bleed Residual codes; unclassified (6 sources) Obstructive sleep apnea (adult) (pediatric); Translations: [Obstructive sleep apnea (adult)(pediatric)] Chronic Respiratory failure; insufficiency; arrest (adult) (20 sources) Acute respiratory failure; Translations: [Acute respiratory failure, unspecified whether with hypoxia or hypercapnia] Episodic Results Test Name Value Interpretation Reference Range Facility Absolute lymphocyte countOrd ered By: Josué Rodriguez on 01-26-2025 Lymphocytes Auto (Unsp spec) [#/Vol] 1.68 10*3/uL 0.83-4.51 [facility] Absolute neutrophil countOrd ered By: Josué Rodriguez on 01-26-2025 Neutrophils (Bld) [#/Vol] 3.2 10*3/uL 2.0-7.7 [facility] Anion gap in Serum or Plasma Ordered By: Josué Rodriguez on 01-26-2025 Anion gap [Moles/Vol] 11 mmol/L 5-15 [facility] Automated lymphocyte count a s percentage of total leukocytesOrdered By: Josué Rodriguez on 01-26-2025 Lymphocytes/100 WBC Auto (Unsp spec) 30.2 % -41 [facility] BUN/creatinine ratioOrdered By: Josué Rodriguez on 01-26-2025 Urea nitrogen/Creatinine [Mass ratio] 18.8 mg/mg 10-20 [facility] Basophil percentageOrdered B y: Josué Rodriguez on 01-26-2025 Basophils/100 WBC (Bld) 1.1 % High 0-1 [facility] Bilirubin, totalOrdered By: Josué Rodriguez on 01-26-2025 Bilirubin [Mass/Vol] 0.52 mg/dL 0.00-1.30 [facility] CBC W/Diff, Automatedon 01-06 Absolute Lymph 1.68 X10 3/uL Normal 0.83-4.51 [facility] Comment on above: Order Comment: Order Date: 01/10/25Order Info: 0184-1 - CBCD Performed By: #### L 500.4050, L100.0100 ####[facility] [address] [place], [address] Absolute Neut 3.2 X10 3/uL Normal 2.0-7.7 [facility] Comment on above: Order Comment: Order Date: 01/10/25Order Info: 0184-1 - CBCD Performed By: #### L 500.4050, L100.0100 ####[facility] [address] [place], [address] Basophils/100 WBC (Bld) 1.1 % High 0-1 [facility] Comment on above: Order Comment: Order Date: 01/10/25Order Info: 0184-1 - CBCD Performed By: #### L 500.4050, L100.0100 ####[facility] [address] [place], [address] Eosinophils/100 WBC (Bld) 3.1 % Normal 0-5 [facility] Comment on above: Order Comment: Order Date: 01/10/25Order Info: 0184-1 - CBCD Performed By: #### L 500.4050, L100.0100 ####[facility] [address] [place], [address] Erythrocyte distribution width (RBC) [Ratio] 14.6 % Normal 11.6-14.6 [facility] Comment on above: Order Comment: Order Date: 01/10/25Order Info: 0184-1 - CBCD Performed By: #### L 500.4050, L100.0100 ####[facility] [address] [place], [address] Hematocrit (Bld) [Volume fraction] 41.0 % Normal 40-54 [facility] Comment on above: Order Comment: Order Date: 01/10/25Order Info: 0184-1 - CBCD Performed By: #### L 500.4050, L100.0100 ####[facility] [address] [place], [address] Hemoglobin (Bld) [Mass/Vol] 12.8 g/dL Low 13.0-16.5 [facility] Comment on above: Order Comment: Order Date: 01/10/25Order Info: 0184-1 - CBCD Performed By: #### L 500.4050, L100.0100 ####[facility] [address] [place], [address] IG% 0.200 Normal 0.0-0.9 [facility] Comment on above: Order Comment: Order Date: 01/10/25Order Info: 0184-1 - CBCD Result Comment: IG% - Immature Granulocytes (promyelocytes, myelocytes and metamyelocytes) > 1% indicates that a LEFT SHIFT is Present. Performed By: #### L 500.4050, L100.0100 ####[facility] [address] [place], [address] Lymphocytes/100 WBC (Bld) 30.2 % Normal 19-41 [facility] Comment on above: Order Comment: Order Date: 01/10/25Order Info: 0184-1 - CBCD Performed By: #### L 500.4050, L100.0100 ####[facility] [address] [place], [address] MCH (RBC) [Entitic mass] 30.0 pg Normal 27.0-32.0 [facility] Comment on above: Order Comment: Order Date: 01/10/25Order Info: 0184-1 - CBCD Performed By: #### L 500.4050, L100.0100 ####[facility] [address] [place], [address] MCHC (RBC) [Mass/Vol] 31.2 g/dL Low 32-36 [facility] Comment on above: Order Comment: Order Date: 01/10/25Order Info: 0184-1 - CBCD Performed By: #### L 500.4050, L100.0100 ####[facility] [address] [place], [address] MCV (RBC) [Entitic vol] 96.0 fL High 80-94 [facility] Comment on above: Order Comment: Order Date: 01/10/25Order Info: 0184-1 - CBCD Performed By: #### L 500.4050, L100.0100 ####[facility] [address] [place], [address] Monocytes/100 WBC (Bld) 8.6 % Normal 0-10 [facility] Comment on above: Order Comment: Order Date: 01/10/25Order Info: 0184-1 - CBCD Performed By: #### L 500.4050, L100.0100 ####[facility] [address] [place], [address] Neutrophils/100 WBC (Bld) 56.8 % Normal 47-70 [facility] Comment on above: Order Comment: Order Date: 01/10/25Order Info: 0184-1 - CBCD Performed By: #### L 500.4050, L100.0100 ####[facility] [address] [place], [address] Nucleated RBC (Bld) [#/Vol] 0 10*3/uL Normal 0-5 [facility] Comment on above: Order Comment: Order Date: 01/10/25Order Info: 0184-1 - CBCD Performed By: #### L 500.4050, L100.0100 ####[facility] [address] [place], [address] Platelet mean volume (Bld) [Entitic vol] 11.3 fL Normal 6.2-12.0 [facility] Comment on above: Order Comment: Order Date: 01/10/25Order Info: 0184-1 - CBCD Performed By: #### L 500.4050, L100.0100 ####[facility] [address] [place], [address] Platelets (Bld) [#/Vol] 212 10*3/uL Normal 150-450 [facility] Comment on above: Order Comment: Order Date: 01/10/25Order Info: 0184-1 - CBCD Performed By: #### L 500.4050, L100.0100 ####[facility] [address] [place], [address] RBC (Bld) [#/Vol] 4.27 10*6/uL Low 4.6-6.2 [facility] Comment on above: Order Comment: Order Date: 01/10/25Order Info: 0184-1 - CBCD Performed By: #### L 500.4050, L100.0100 ####[facility] [address] [place], [address] RDW SD 50.7 fl High 35.1-43.9 [facility] Comment on above: Order Comment: Order Date: 01/10/25Order Info: 0184-1 - CBCD Performed By: #### L 500.4050, L100.0100 ####[facility] [address] [place], [address] WBC (Bld) [#/Vol] 5.6 10*3/uL Normal 4.4-11.0 [facility] Comment on above: Order Comment: Order Date: 01/10/25Order Info: 0184-1 - CBCD Performed By: #### L 500.4050, L100.0100 ####[facility] [address] [place], [address] Carbon dioxide, total [Moles /volume] in Central venous bloodOrdered By: Josué Rodriguez on 01-26-2025 CO2 [Moles/Vol] 26.9 mmol/L 21.0-32.0 [facility] Chloride assayOrdered By: Leonardo Rodriguez on 01-26-2025 Chloride [Moles/Vol] 97 mmol/L Low 98-108 [facility] Comprehensive Metabolic Prof ilon 01-26-2025 Albumin [Mass/Vol] 4.2 g/dL Normal 3.4-4.8 [facility] Comment on above: Order Comment: Order Date: 01/10/25Order Info: 0786-1 - CMP Performed By: #### L 500.4050, L100.0100 ####[facility] [address] [place], [address] Albumin/Globulin [Mass ratio] 1.4 {ratio} Normal 0.9-2.4 [facility] Comment on above: Order Comment: Order Date: 01/10/25Order Info: 0786-1 - CMP Performed By: #### L 500.4050, L100.0100 ####[facility] [address] [place], [address] ALK PHOS 96 U/L Normal 40-129 [facility] Comment on above: Order Comment: Order Date: 01/10/25Order Info: 0786-1 - CMP Performed By: #### L 500.4050, L100.0100 ####[facility] [address] [place], [address] ALT [Catalytic activity/Vol] 19 U/L Normal <=46 [facility] Comment on above: Order Comment: Order Date: 01/10/25Order Info: 0786-1 - CMP Performed By: #### L 500.4050, L100.0100 ####[facility] [address] [place], [address] AST [Catalytic activity/Vol] 26 U/L Normal <=37 [facility] Comment on above: Order Comment: Order Date: 01/10/25Order Info: 0786-1 - CMP Performed By: #### L 500.4050, L100.0100 ####[facility] [address] [place], [address] Bilirubin [Mass/Vol] 0.52 mg/dL Normal 0.00-1.30 [facility] Comment on above: Order Comment: Order Date: 01/10/25Order Info: 0786-1 - CMP Performed By: #### L 500.4050, L100.0100 ####[facility] [address] [place], [address] BUN/CRE 18.8 RATIO Normal 10-20 [facility] Comment on above: Order Comment: Order Date: 01/10/25Order Info: 0786-1 - CMP Performed By: #### L 500.4050, L100.0100 ####[facility] [address] [place], [address] Calcium [Mass/Vol] 9.4 mg/dL Normal 7.6-11.0 [facility] Comment on above: Order Comment: Order Date: 01/10/25Order Info: 0786-1 - CMP Performed By: #### L 500.4050, L100.0100 ####[facility] [address] [place], [address] Chloride [Moles/Vol] 97 mmol/L Low 98-108 [facility] Comment on above: Order Comment: Order Date: 01/10/25Order Info: 0786-1 - CMP Performed By: #### L 500.4050, L100.0100 ####[facility] [address] [place], [address] CO2 [Moles/Vol] 26.9 mmol/L Normal 21.0-32.0 [facility] Comment on above: Order Comment: Order Date: 01/10/25Order Info: 0786-1 - CMP Performed By: #### L 500.4050, L100.0100 ####[facility] [address] [place], [address] Creatinine [Mass/Vol] 1.77 mg/dL High 0.70-1.20 [facility] Comment on above: Order Comment: Order Date: 01/10/25Order Info: 0786-1 - CMP Performed By: #### L 500.4050, L100.0100 ####[facility] [address] [place], [address] GAP 11 Normal 5-15 [facility] Comment on above: Order Comment: Order Date: 01/10/25Order Info: 0786-1 - CMP Performed By: #### L 500.4050, L100.0100 ####[facility] [address] [place], [address] GFR/1.73 sq M.predicted among non-blacks MDRD (S/P/Bld) [Vol rate/Area] 42 mL/min/{1.73_m2} Low >60 [facility] Comment on above: Order Comment: Order Date: 01/10/25Order Info: 0786-1 - CMP Result Comment: mL/m in/1.73m2 CKD-EPI Creatinine Equation (2020) Performed By: #### L 500.4050, L100.0100 ####[facility] [address] [place] [place], [address] Globulin (S) [Mass/Vol] 3.0 g/dL Normal 2.2-4.2 [facility] Comment on above: Order Comment: Order Date: 01/10/25Order Info: 0786-1 - CMP Performed By: #### L 500.4050, L100.0100 ####[facility] [address] [place], [address] Glucose [Mass/Vol] 128 mg/dL High 70-99 [facility] Comment on above: Order Comment: Order Date: 01/10/25Order Info: 0786-1 - CMP Performed By: #### L 500.4050, L100.0100 ####[facility] [address] [place], [address] Potassium [Moles/Vol] 4.6 mmol/L Normal 3.3-5.1 [facility] Comment on above: Order Comment: Order Date: 01/10/25Order Info: 0786-1 - CMP Performed By: #### L 500.4050, L100.0100 ####[facility] [address] [place], [address] Sodium [Moles/Vol] 135 mmol/L Normal 133-145 [facility] Comment on above: Order Comment: Order Date: 01/10/25Order Info: 0786-1 - CMP Performed By: #### L 500.4050, L100.0100 ####[facility] [address] [place], [address] T PROT 7.2 g/dL Normal 5.9-8.4 [facility] Comment on above: Order Comment: Order Date: 01/10/25Order Info: 0786-1 - CMP Performed By: #### L 500.4050, L100.0100 ####[facility] [address] [place], [address] Urea nitrogen [Mass/Vol] 33 mg/dL High 4-19 [facility] Comment on above: Order Comment: Order Date: 01/10/25Order Info: 0786-1 - CMP Performed By: #### L 500.4050, L100.0100 ####[facility] [address] [place], [address] Eosinophil percentageOrdered By: Josué Rodriguez on 01-26-2025 Eosinophils/100 WBC (Bld) 3.1 % 0-5 [facility] Erythrocyte distribution wid th ratioOrdered By: Josué Rodriguez on 01-26-2025 Erythrocyte distribution width (RBC) [Ratio] 14.6 % 11.6-14.6 [facility] Erythrocyte distribution wid th standard deviationOrdered By: Josué Rodriguez on 01-26-2025 Erythrocyte distribution width (RBC) [Ratio] 50.7 fl High 35.1-43.9 [facility] Glomerular filtration rate ( GFR) estimation/1.73 sq m using serum, plasma, or whole bOrdered By: Josué Rodriguez on 01-26-2025 GFR/1.73 sq M.predicted among non-blacks MDRD (S/P/Bld) [Vol rate/Area] 42 mL/min/{1.73_m2} Low >60 [facility] Comment on above: mL/min/1.73m2 CKD-EP I Creatinine Equation (2020) Hematocrit Auto (Bld) [Volum e fraction]Ordered By: Josué Rodriguez on 01-26-2025 Hematocrit (Bld) [Volume fraction] 41.0 % 40-54 [facility] Hemoglobin measurementOrdere d By: Josué Rodriguez on 01-26-2025 Hemoglobin (Bld) [Mass/Vol] 12.8 g/dL Low 13.0-16.5 [facility] Immature granulocytes/100 WB C Auto (Bld)Ordered By: Josué Rodriguez on 01-26-2025 Immature granulocytes/100 WBC (Bld) 0.200 % 0.0-0.9 [facility] Comment on above: IG% - Immature Granu locytes (promyelocytes, myelocytes and metamyelocytes) > 1% indicates that a LEFT SHIFT is Present. Laboratory - Chemistry and C hemistry - challengeOrdered By: Josué Rodriguez on 01-26-2025 AST [Catalytic activity/Vol] 26 U/L <38 [facility] MCV (mean corpuscular volume ) determinationOrdered By: Josué Rodriguez on 01-26-2025 MCV (RBC) [Entitic vol] 96.0 fL High 80-94 [facility] Mean corpuscular hemoglobin (MCH) determinationOrdered By: Josué Rodriguez on 01-26-2025 MCH (RBC) [Entitic mass] 30.0 pg 27.0-32.0 [facility] Mean corpuscular hemoglobin concentration (MCHC) determinationOrdered By: Josué Rodriguez on 01-26-2025 MCHC (RBC) [Mass/Vol] 31.2 g/dL Low 32-36 [facility] Mean platelet volume determi nationOrdered By: Josué Rodriguez on 01-26-2025 Platelet mean volume (Bld) [Entitic vol] 11.3 fL 6.2-12.0 [facility] Microalb:Creat Ratio,Random URon 01-26-2025 Creatinine [Mass/Vol] 24.40 mg/dL Low 39.00-259.00 [facility] Comment on above: Order Comment: Order Date: 01/10/25 Order Info: [id number] - MIALB Performed By: #### L 502.0250 #### [facility] [address] [place], [address] MALB:CREAT UNABLE TO CALCULATE Normal [facility] Comment on above: Order Comment: Order Date: 01/10/25 Order Info: [id number] - MIALB Performed By: #### L 502.0250 #### [facility] [address] [place], [address] MICROALBUMIN,UR < 12.0 Normal NO RANGE EST. [facility] Comment on above: Order Comment: Order Date: 01/10/25 Order Info: [id number] - MIALB Performed By: #### L 502.0250 #### [facility] [address] [place], [address] Microalbumin/creat ratio urO rdered By: Josué Rodriguez on 01-26-2025 Urine microalbumin/creatinine ratio measurement UNABLE TO CALCULATE mg/g CRE [facility] Monocyte percentageOrdered B y: Josué Rodriguez on 01-26-2025 Monocytes/100 WBC (Bld) 8.6 % 0-10 [facility] Neutrophil percentageOrdered By: Josué Rodriguez on 01-26-2025 Neutrophils/100 WBC (Bld) 56.8 % 47-70 [facility] Nucleated red blood cell per centageOrdered By: Josué Rodriguez on 01-26-2025 Nucleated RBC/100 WBC (Bld) [Ratio] 0 % 0-5 [facility] Platelet countOrdered By: Leonardo Rodriguez on 01-26-2025 Platelets (Bld) [#/Vol] 212 10*3/uL 150-450 [facility] Potassium measurement (mass/ volume)Ordered By: Josué Rodriguez on 01-26-2025 Potassium (Unsp spec) [Mass/Vol] 4.6 mmol/L 3.3-5.1 [facility] RBC Auto (Bld) [#/Vol]Ordere d By: Josué Rodriguez on 01-26-2025 RBC (Bld) [#/Vol] 4.27 10*6/uL Low 4.6-6.2 [facility] Random urine creatinine mar urement (mass/volume)Ordered By: Josué Rodriguez on 01-26-2025 Creatinine Unsp time (U) [Mass/Vol] 24.40 mg/dL Low 39.00-259.00 [facility] Serum creatinine measurement (mass/volume)Ordered By: Josué Rodriguez on 01-26-2025 Creatinine [Mass/Vol] 1.77 mg/dL High 0.70-1.20 [facility] Serum globulin measurementOr dered By: Josué Rodriguez on 01-26-2025 Globulin (S) [Mass/Vol] 3.0 g/dL 2.2-4.2 [facility] Serum glucose measurement (m ass/volume)Ordered By: Josué Rodriguez on 01-26-2025 Glucose [Mass/Vol] 128 mg/dL High 70-99 [facility] Serum or plasma alanine muñoz otransferase (ALT) measurementOrdered By: Josué Rodriguez on 01-26-2025 ALT [Catalytic activity/Vol] 19 U/L <47 [facility] Serum or plasma albumin mar urement (mass/volume)Ordered By: Josué Rodriguez on 01-26-2025 Albumin [Mass/Vol] 4.2 g/dL 3.4-4.8 [facility] Serum or plasma albumin/glob ulin mass ratioOrdered By: Josué Rodriguez on 01-26-2025 Albumin/Globulin [Mass ratio] 1.4 {ratio} 0.9-2.4 [facility] Serum or plasma alkaline denzel sphatase measurementOrdered By: Josué Rodriguez on 01-26-2025 ALP [Catalytic activity/Vol] 96 U/L 40-129 [facility] Serum or plasma calcium mar urement (mass/volume)Ordered By: Josué Rodriguez on 01-26-2025 Calcium [Mass/Vol] 9.4 mg/dL 7.6-11.0 [facility] Serum or plasma urea nitroge n measurement (mass/volume)Ordered By: Josué Rodriguez on 01-26-2025 Urea nitrogen [Mass/Vol] 33 mg/dL High 4-19 [facility] Sodium levelOrdered By: Josué Rodriguez on 01-26-2025 Sodium [Moles/Vol] 135 mmol/L 133-145 [facility] Total proteinOrdered By: Bailee Rodriguez on 01-26-2025 Protein [Mass/Vol] 7.2 g/dL 5.9-8.4 [facility] Urine albumin measurement [facility] detection limit of 20 mg/L or less (mass/volume)Ordered By: Josué Rodriguez on 01-26-2025 Albumin DL <= 20 mg/L (U) [Mass/Vol] < 12.0 mg/L NO RANGE EST. [facility] White blood cell (WBC) count Ordered By: Josué Rodriguez on 01-26-2025 WBC (Bld) [#/Vol] 5.6 10*3/uL 4.4-11.0 [facility] Cardiology Visit Reporton Cardiology Visit Report [facility] [address] [place], [place] [address] OFFICE VISIT Date of Service: 01/05/25 MR#: [id number] Acct: [id number] Name: HILARIA WOO Rep #: [id number] : 1960 Provider: Dr. Ian Rondon MD Age/Sex: 64/M [facility] [facility] [place] [place] Status: Signed HPI HPI History of Present Illness Details: The patient is a 64 year old M who presents today for a cardiovascular outpatient follow-up. He is rather complicated, cardiac history and he is a gentleman with a known cardiac history who had undergone cardiac catheterization in November 2019. He had triple-vessel disease and underwent a cardiac bypass surgery in December 2019. He was discharged and was admitted to the hospital on 01/04/2020. He was noted to be dyspneic when he presented was noted to be in atrial fibrillation with a rapid ventricular response rate had evidence of respiratory distress and hypercapnia poor inspiratory effort requiring BiPAP. He was evaluated and underwent an echocardiogram which demonstrated preserved ejection fraction of 65%, normal RV size, and no evidence of pericardial effusion. He was treated with intravenous heparin and amiodarone and during the hospitalization developed chest pain and EKG changes necessitating an emergent cardiac catheterization. It demonstrated a patent left internal mammary artery to the left anterior descending artery, a saphenous vein graft attached to the right internal mammary artery and subsequently attached to the diagonal vessel and obtuse marginal vessels which were patent and a saphenous vein graft to the right coronary artery. The anastomotic zone was noted to have a probable moderate to severe stenosis but it was determined that it should be left untouched due to distal mild disease as well as small vessels. He recovered and was subsequently discharged. He presented back to the hospital 2 days later with shortness of breath was noted to be hypercapnic requiring BiPAP and still had elevated troponin. His EKG demonstrated atrial fibrillation with a controlled ventricular response rate no acute EKG changes were noted. He denies chest, arm, jaw, or neck discomfort. He denies palpitations. He denies bilateral lower extremity edema. He denies claudication. He denies shortness of breath activity, but he does acknowledge episodes in which she has to catch his breath. He denies shortness of breath at rest, orthopnea, or PND. He denies chronic cough. He denies significant, sudden weight gain. He denies lightheadedness, dizziness, near-syncope, or syncope. He denies blood in urine, blood in stool, or epistaxis. He denies fever with chills. He denies myalgia. He denies fatigue. His exercise level has remained stable. 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 Internship Required: No Accompanied by: Significant Other Is patient in pain?: No Allergies No Known Allergies Allergy (Verified 01/05/25 10:22) Medications ???Medication ???Instructions ???Recorded ???Confirmed ???Type atorvastatin 80 mg tablet 80 mg PO QHS cholesterol 11/17/19 01/05/25 History ipratropium bromide 42 mcg (0.06 1 spray inhalation DAILY PRN PRN 0 11/17/19 01/05/25 History %) nasal spray Allergies temazepam 15 mg capsule 15 mg PO QHS PRN PRN Insomnia 11/0501/05/25 History levocetirizine 5 mg tablet 5 mg PO DAILY allergy 01/20/2010/01 History acetaminophen 500 mg tablet 1,000 mg (2 x 500 mg) PO Q6H PRN 0 01/31/20 01/05/25 Rx Pain Score 1-06/16 levothyroxine 50 mcg tablet 50 mcg PO DAILY 12/11/20 01/05/25 History buspirone 10 mg tablet 10 mg PO DAILY 07/16/21 01/05/25 H istory furosemide 80 mg tablet 40 mg PO DAILY 07/16/21 01/05/25 H istory famotidine 20 mg tablet 20 mg PO DAILY 10/15/21 01/05/25 H istory pioglitazone 30 mg tablet 30 mg PO DAILY 10/16/21 01/05/25 H istory empagliflozin 25 mg tablet 25 mg PO DAILY 08/05/22 01/05/25 H istory (Jardiance) fluticasone propionate 50 2 spray intranasal DAILY 08/05/22 01/05/25 History mcg/actuation nasal spray,suspension losartan 25 mg tablet 25 mg PO QHS 08/05/22 01/05/25 His tory metoprolol tartrate 50 mg tablet 50 mg PO BID 08/05/22 01/05/25 His tory insulin glargine U-300 conc 300 22 unit subcut DAILY 12/01/23 05/0 1/25 History unit/mL (3 mL) subcutaneous pen (Toujeo Max U-300 SoloStar) semaglutide 2 mg/dose (8 mg/3 mL) 2 mg subcut QWEEK 01/05/25 (more content not included)... Normal [facility] Calculated very low density lipoprotein (VLDL) cholesterol measurementOrdered By: Josué Rodriguez on 12-29-2024 Calculated very low density lipoprotein (VLDL) cholesterol measurement 15 mg/dL 5-40 [facility] Hemoglobin A1con 12-29-2024 HbA1c (Bld) [Mass fraction] 6.7 % High <=5.6 [facility] Comment on above: Result Comment: Norm al < 5.7 % Prediabetic 5.7 - 6.4 % Diabetic >or= 6.5 % Please note range changes. Performed By: #### L 500.4100, L516.3514 ####[facility] [address] [place], [address] Hemoglobin A1c percentageOrd ered By: Josué Rodriguez on 12-29-2024 HbA1c (Bld) [Mass fraction] 6.7 % High <5.7 [facility] Comment on above: Normal < 5.7 % Predi abetic 5.7 - 6.4 % Diabetic >or= 6.5 % Please note range changes. LDL calc ser/plasOrdered By: Josué Rodriguez on 12-29-2024 Cholesterol in LDL [Mass/Vol] 77 mg/dL [facility] Comment on above: Eghxzaxsfi=092-811 m g/dL & Higher Ehdr=375 mg/dL or greater Lipid Profileon 12-29-2024 CHOL:HDL 3.49 Normal [facility] Comment on above: Performed By: #### L 500.4100, L501.9944 ####[facility] [address] [place], [address] Cholesterol [Mass/Vol] 129 mg/dL Normal <=200 [facility] Comment on above: Result Comment: Chol esterol level, Desirable <200 mg/dL Borderline high cholesterol 200-239 mg/dL High cholesterol >=240 mg/dL Recommendations of the NCEP Adult Treatment Panel for the following risk-cutoff thresholds for the [place] Citizen [place] population. Performed By: #### L 500.4100, L501.9985 ####[facility] [address] [place], [address] Cholesterol in HDL [Mass/Vol] 37 mg/dL Low [facility] Comment on above: Result Comment: [place] onal Cholesterol Education Program (NCEP) guidelines: <40 mg/dL: Low HDL-cholesterol (major risk factor for CHD) >= 60 mg/dL: High HDL-cholesterol (negative risk factor for CHD) HDL-cholesterol is affected by a number of factors, e.g. smoking, exercise, hormones, sex and age. Performed By: #### L 500.4100, L501.9985 ####[facility] [address] [place], [address] Cholesterol in LDL [Mass/Vol] 77 mg/dL Normal [facility] Comment on above: Result Comment: Bord nlhyhf=856-283 mg/dL Higher Xjbv=293 mg/dL or greater Performed By: #### L 500.4100, L501.9985 ####[facility] [address] [place], [address] Cholesterol in VLDL [Mass/Vol] 15 mg/dL Normal 5-40 [facility] Comment on above: Performed By: #### L 500.4100, L501.9985 ####[facility] [address] [place], [address] Triglyceride [Mass/Vol] 75 mg/dL Normal [facility] Comment on above: Result Comment: The drugs N-Acetylcysteine and Metamizole may falsely depress this assay. Normal range: <150 mg/dL Borderline High: 150-199 mg/dL High: 200-499 mg/dL Very High: >500 mg/dL Performed By: #### L 500.4100, L501.9985 ####[facility] [address] [place], [address] Screening total cholesterol/ high density lipoprotein (HDL) cholesterol ratioOrdered By: Josué Rodriguez on 12-29-2024 Cholesterol.total/Choles terol in HDL [Mass ratio] 3.49 {ratio} [facility] Serum or plasma cholesterol in HDL measurement (mass/volume)Ordered By: Josué Rodriguez on 12-29-2024 Cholesterol in HDL [Mass/Vol] 37 mg/dL Low >40 [facility] Comment on above: National Cholesterol Education Program (NCEP) guidelines:<40 mg/dL: Low HDL-cholesterol (major risk factor for CHD)>= 60 mg/dL: High HDL-cholesterol (negative risk factor for CHD)HDL-cholesterol is affected by a number of factors, e.g. smoking, exercise, hormones, sex and age. Serum or plasma cholesterol measurement (mass/volume)Ordered By: Josué Rodriguez on 12-29-2024 Cholesterol [Mass/Vol] 129 mg/dL <201 [facility] Comment on above: Cholesterol level, D esirable <200 mg/dLBorderline high cholesterol 200-239 mg/dLHigh cholesterol >=240 mg/dLRecommendations of the NCEP Adult Treatment Panel for the following risk-cutoff thresholds for the [place] Citizen [place] population. Triglycerides measurementOrd ered By: Josué Rodriguez on 12-29-2024 Triglyceride [Mass/Vol] 75 mg/dL <199 [facility] Comment on above: The drugs N-Acetylcy steine and Metamizole may falsely depress this assay. Normal range: <150 mg/dLBorderline High: 150-199 mg/dLHigh: 200-499 mg/dLVery High: >500 mg/dL Miscellaneous Lab Procedureo n 07-12-2024 [facility] [place] [facility] [place] Normal [facility] Comment on above: Order Comment: SERUM RMT [id number] Result Comment: TEST RESULTS LIMITS Anti-PR3 Antibodies <0.2 units 0.0-0.9 TESTING PERFORMED AT [facility]. ORIGINAL REPORT ON FILE IN LAB CONTAINS ADDITIONAL TEST SITE INFORMATION. Performed By: #### L 801.1543, L509.1000, L501.0900, L100.0500, L500.3600, L801.1541, L506.1000 #### [facility] [address] [place], [address] Miscellaneous Lab Procedure 2on 07-12-2024 [facility] [place] [facility] [place] 2 Normal [facility] Comment on above: Order Comment: WILEY Ling MT [id number] MPO Result Comment: TEST RESULTS LIMITS Anti-MPO Antibodies <0.2 units 0.0-0.9 TESTING PERFORMED AT [facility]. ORIGINAL REPORT ON FILE IN LAB CONTAINS ADDITIONAL TEST SITE INFORMATION. Performed By: #### L 801.1543, L509.1000, L501.0900, L100.0500, L500.3600, L801.1541, L506.1000 #### [facility] [address] [place] [place], [address] CBC-Complete Blood Cnt No Di ffon 07-06-2024 Erythrocyte distribution width (RBC) [Ratio] 14.2 % Normal 11.6-14.6 [facility] Comment on above: Performed By: #### L 801.1543, L509.1000, L501.0900, L100.0500, L500.3600, L801.1541, L506.1000 #### [facility] [address] [place], [address] Hematocrit (Bld) [Volume fraction] 40.9 % Normal 40-54 [facility] Comment on above: Performed By: #### L 801.1543, L509.1000, L501.0900, L100.0500, L500.3600, L801.1541, L506.1000 #### [facility] [address] [place] [place], [address] Hemoglobin (Bld) [Mass/Vol] 12.9 g/dL Low 13.0-16.5 [facility] Comment on above: Performed By: #### L 801.1543, L509.1000, L501.0900, L100.0500, L500.3600, L801.1541, L506.1000 #### [facility] [address] [place], [address] MCH (RBC) [Entitic mass] 30.3 pg Normal 27.0-32.0 [facility] Comment on above: Performed By: #### L 801.1543, L509.1000, L501.0900, L100.0500, L500.3600, L801.1541, L506.1000 #### [facility] [address] [place], [address] MCHC (RBC) [Mass/Vol] 31.5 g/dL Low 32-36 [facility] Comment on above: Performed By: #### L 801.1543, L509.1000, L501.0900, L100.0500, L500.3600, L801.1541, L506.1000 #### [facility] [address] [place], [address] MCV (RBC) [Entitic vol] 96.0 fL High 80-94 [facility] Comment on above: Performed By: #### L 801.1543, L509.1000, L501.0900, L100.0500, L500.3600, L801.1541, L506.1000 #### [facility] [address] [place], [address] Platelet mean volume (Bld) [Entitic vol] 10.8 fL Normal 6.2-12.0 [facility] Comment on above: Performed By: #### L 801.1543, L509.1000, L501.0900, L100.0500, L500.3600, L801.1541, L506.1000 #### [facility] [address] [place], [address] Platelets (Bld) [#/Vol] 212 10*3/uL Normal 150-450 [facility] Comment on above: Performed By: #### L 801.1543, L509.1000, L501.0900, L100.0500, L500.3600, L801.1541, L506.1000 #### [facility] [address] [place], [address] RBC (Bld) [#/Vol] 4.26 10*6/uL Low 4.6-6.2 [facility] Comment on above: Performed By: #### L 801.1543, L509.1000, L501.0900, L100.0500, L500.3600, L801.1541, L506.1000 #### [facility] [address] [place], [address] RDW SD 49.9 fl High 35.1-43.9 [facility] Comment on above: Performed By: #### L 801.1543, L509.1000, L501.0900, L100.0500, L500.3600, L801.1541, L506.1000 #### [facility] [address] [place], [address] WBC (Bld) [#/Vol] 5.4 10*3/uL Normal 4.4-11.0 [facility] Comment on above: Performed By: #### L 801.1543, L509.1000, L501.0900, L100.0500, L500.3600, L801.1541, L506.1000 #### [facility] [address] [place], [address] PTHINon 07-06-2024 PTH 108.0 pg/mL High 18.4-80.1 [facility] Comment on above: Performed By: #### L 801.1543, L509.1000, L501.0900, L100.0500, L500.3600, L801.1541, L506.1000 #### [facility] [address] [place], [address] Protein+Creatinine Ratio,Uri neon 07-06-2024 PROT:CRE RATIO 120 mg/g CRE Normal 0-200 [facility] Comment on above: Performed By: #### L 801.1543, L509.1000, L501.0900, L100.0500, L500.3600, L801.1541, L506.1000 #### [facility] [address] [place], [address] PROTEIN,UR.RAN. < 6.0 Normal <11.9 [facility] Comment on above: Performed By: #### L 801.1543, L509.1000, L501.0900, L100.0500, L500.3600, L801.1541, L506.1000 #### [facility] [address] [place], [address] UR CREAT 43.20 mg/dL Normal NO RANGE EST. [facility] Comment on above: Performed By: #### L 801.1543, L509.1000, L501.0900, L100.0500, L500.3600, L801.1541, L506.1000 #### [facility] [address] [place], [address] Renal Profileon 07-06-2024 Albumin [Mass/Vol] 3.7 g/dL Normal 3.2-5.0 [facility] Comment on above: Performed By: #### L 801.1543, L509.1000, L501.0900, L100.0500, L500.3600, L801.1541, L506.1000 #### [facility] [address] [place], [address] BUN/CRE 17.6 RATIO Normal 10-20 [facility] Comment on above: Performed By: #### L 801.1543, L509.1000, L501.0900, L100.0500, L500.3600, L801.1541, L506.1000 #### [facility] [address] [place], [address] CA,Total 9.3 mg/dL Normal 8.5-10.1 [facility] Comment on above: Performed By: #### L 801.1543, L509.1000, L501.0900, L100.0500, L500.3600, L801.1541, L506.1000 #### [facility] [address] [place], [address] Chloride [Moles/Vol] 102 mmol/L Normal 98-107 [facility] Comment on above: Performed By: #### L 801.1543, L509.1000, L501.0900, L100.0500, L500.3600, L801.1541, L506.1000 #### [facility] [address] [place], [address] CO2 [Moles/Vol] 29.0 mmol/L Normal 21.0-32.0 [facility] Comment on above: Performed By: #### L 801.1543, L509.1000, L501.0900, L100.0500, L500.3600, L801.1541, L506.1000 #### [facility] [address] [place], [address] Creatinine [Mass/Vol] 1.48 mg/dL High 0.70-1.30 [facility] Comment on above: Result Comment: The validity of the calculated GFR GFRAA in patients over 70 years has not been determined. Clinical correlation is essential. Performed By: #### L 801.1543, L509.1000, L501.0900, L100.0500, L500.3600, L801.1541, L506.1000 #### [facility] [address] [place], [address] EST GFR - AA 61 mL/min Normal >60 [facility] Comment on above: Result Comment: Afri can Citizen [place] GFR Calc Performed By: #### L 801.1543, L509.1000, L501.0900, L100.0500, L500.3600, L801.1541, L506.1000 #### [facility] [address] [place], [address] GFR/1.73 sq M.predicted among non-blacks MDRD (S/P/Bld) [Vol rate/Area] 51 mL/min/{1.73_m2} Low >60 [facility] Comment on above: Result Comment: Non- GFR Calc Performed By: #### L 801.1543, L509.1000, L501.0900, L100.0500, L500.3600, L801.1541, L506.1000 #### [facility] [address] [place], [address] Glucose [Mass/Vol] 121 mg/dL High 74-106 [facility] Comment on above: Result Comment: Fast ing Glucose result from 100 to 125 mg/dL suggests IMPAIRED HOMEOSTASIS per A.D.A. criteria. Performed By: #### L 801.1543, L509.1000, L501.0900, L100.0500, L500.3600, L801.1541, L506.1000 #### [facility] [address] [place], [address] Phosphate [Mass/Vol] 3.3 mg/dL Normal 2.5-4.9 [facility] Comment on above: Performed By: #### L 801.1543, L509.1000, L501.0900, L100.0500, L500.3600, L801.1541, L506.1000 #### [facility] [address] [place], [address] Potassium [Moles/Vol] 4.4 mmol/L Normal 3.5-5.1 [facility] Comment on above: Performed By: #### L 801.1543, L509.1000, L501.0900, L100.0500, L500.3600, L801.1541, L506.1000 #### [facility] [address] [place], [address] Sodium [Moles/Vol] 134 mmol/L Low 136-145 [facility] Comment on above: Performed By: #### L 801.1543, L509.1000, L501.0900, L100.0500, L500.3600, L801.1541, L506.1000 #### [facility] [address] [place], [address] Urea nitrogen [Mass/Vol] 26 mg/dL High 7-18 [facility] Comment on above: Performed By: #### L 801.1543, L509.1000, L501.0900, L100.0500, L500.3600, L801.1541, L506.1000 #### [facility] [address] [place], [address] Vitamin D,25 Hydroxyon 07-06 Vitamin D 25-OH 25.8 ng/mL Normal [facility] Comment on above: Result Comment: Violeta min D 25(OH) Status Range Deficiency <20 ng/mL (50nmol/L) Insufficiency 20 - 30 ng/mL (50 - 75 nmol/L) Sufficiency 30 - 100 ng/mL (75 - 250 nmol/L) Toxicity >100 ng/mL (>250 nmol/L) Performed By: #### L 801.1543, L509.1000, L501.0900, L100.0500, L500.3600, L801.1541, L506.1000 #### [facility] [address] [place], [address] Pulmonary Visit Reporton Pulmonary Visit Report [facility] [place] [address] [place] [address] OFFICE VISIT Date of Service: 06/08/24 MR#: [id number] Acct: [id number] Name: HILARIA WOO Rep #: [id number] : [id number] Provider: ADALID Mendoza Age/Sex: 64/M Location: [facility] [place] Status: Signed with Addenda ADDENDUM by ADALID Mendoza on 10/14/24 at 1333 Assessment and Plan Assessment and Plan (1) Obstructive sleep apnea: Status: Chronic Comment: BiPAP 20/16 cmH2O with a 2 L/min supplemental oxygen bleed Plan: For documentation clarification purposes, this patient is using and benefiting from a supplemental oxygen bleed into his PAP device. (2) Secondary pulmonary arterial hypertension: Status: Chronic (3) Chronic diastolic (congestive) heart failure: Status: Chronic (4) Super obese: Status: Chronic Medications: Discontinued rivaroxaban must administer with evening meal Discontinued Reason: Order Changed 20 mg PO DAILY 90 tabs 3RF Plan Details Follow Up: 1 Year ([facility]) 10/14/24 1333 Date Kika Mendoza NP cc: Dr. Josué Rodriguez MD * Signed Assessment and Plan Assessment and Plan (1) Obstructive sleep apnea: Status: Chronic Plan: Stable, he is using and benefiting from Pap therapy. No indication for titration study at this time. Contact the office for any new or worsening symptoms in the meantime. Follow-up in 1 year. (2) Secondary pulmonary arterial hypertension: Status: Chronic Plan: Asymptomatic at this time. No additional testing. (3) Chronic diastolic (congestive) heart failure: Status: Chronic Plan: Complicates exam, plan, care and prognosis. (4) Super obese: Status: Chronic Plan: Continue to encourage weight loss. Plan Details Follow Up: 1 Year ([facility]) HPI 6 M FU Chief Complaint: Routine follow-up HPI Comments Details: This patient presents to the office today for follow-up of his obstructive sleep apnea. He is ambulatory, currently on room air and accompanied today by his . 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 He has not recently been seen in the ED or urgent care for any respiratory illness. He has not required any antibiotics or prednisone for any breathing problems. He denies any difficulty with shortness of breath. He denies any cough, sputum production or hemoptysis. He does report seasonal allergies that cause him to have postnasal drip. He denies any wheezing, chest tightness, chest pain or palpitations. He also denies any fever, chills or body aches. He is feeling rested and refreshed with use of his PAP device. He states that the leaks are the best that they have ever been controlled. He is not having difficulty with dry mouth. He denies requiring naps. He is not nodding off to sleep unintentionally. He is not having excessive nocturia. He is pleased with his progress. Compliance report for the past 30 days shows 100% compliance with an average use of nearly 8 hours and 32 minutes per night. Current settings are 20/16 cm H2O with a residual AHI 6.7 events per hour. Leaks appear to be occurring nightly. Intake Vital Signs 12/08/23 07:40 06/08/24 07:39 Height 6 ft 6 ft Weight: 290 lb 288 lb BMI 39.3 39.0 BP 106/63 90/54 L Blood Pressure Location Lt brachial Lt brachial Position Sitting Sitting Respiration 18 20 H Pulse 63 64 Pulse Source Monitor Monitor Temp 97.1 F L 97.2 F L Temperature Source Temporal Artery Temporal Artery Pulse Oximetry (%) 99 96 Oxygen Delivery Method room air room air Intake Visit Reasons: 6 M FU Chief Complaint: resp. failure, pulmonary edema, CHF Consultant Internship Required: No DME Vendor: jeane mireles Accompanied by: Is patient in pain?: No Allergies No Known Allergies Allergy (Verified 06/08/24 07:41) Medications ???Medication ???Instructions ???Recorded ???Confirmed ???Type atorvastatin 80 mg tablet 80 mg PO QHS cholesterol 11/17/19 06/08/24 History ipratropium bromide 42 mcg (0.06 1 spray inhalation DAILY PRN PRN 11/17/19 06/08/24 History %) nasal spray Allergies temazepam 15 mg capsule 15 mg PO QHS PRN PRN Insomnia 11/17/19 06/08/24 History levocetirizine 5 mg tablet 5 mg PO DAILY allergy 01/20/20 06/08/24 History acetaminophen 500 mg tablet 1,000 mg (2 x 500 mg) PO Q6H PRN 01/31/20 06/08/24 Rx Pain Score 1-06/16 levothyroxine 50 mcg tablet 50 mcg PO DAILY 12/11/20 06/08/24 History buspirone 10 mg tablet 10 mg PO DAILY 07/16/21 06/08/24 History furosemide 80 mg tablet 40 mg PO DAILY 07/16/21 06/08/24 History famotidine 20 mg tablet 20 mg PO DAILY 10/15/21 06/08/24 History pioglitazone 30 mg tablet 30 mg PO DAILY 10/16/21 06/08/24 History empagliflozin 25 mg tablet (more content not included)... Normal [facility] Basophil percentageOrdered B y: Josuéchavo Rodriguez on 12-29-2023 Bilirubin [Mass/Vol] 0.70 mg/dL 0.20-1.00 [facility] Comment on above: For patients on eltr ombopag therapy, use of Dimension [place] TBIL is not recommended. Chloride [Moles/Vol] 100 mmol/L 98-107 [facility] Glucose [Mass/Vol] 99 mg/dL 74-106 [facility] Hemoglobin (Bld) [Mass/Vol] 13.9 g/dL 13.0-16.5 [facility] Potassium [Moles/Vol] 4.5 mmol/L 3.5-5.1 [facility] Protein [Mass/Vol] 7.5 g/dL 6.4-8.2 [facility] Sodium [Moles/Vol] 137 mmol/L 136-145 [facility] WBC (Bld) [#/Vol] 5.3 10*3/uL 4.4-11.0 [facility] Determination of erythrocyte mean corpuscular volume (MCV)Ordered By: Josué Rodriguez on 12-29-2023 MCV (RBC) [Entitic vol] 95.3 fL 80-94 [facility] Erythrocyte distribution wid th ratioOrdered By: Josué Rodriguez on 12-29-2023 Erythrocyte distribution width (RBC) [Ratio] 13.6 % 11.6-14.6 [facility] Erythrocyte distribution wid th standard deviationOrdered By: Josué Rodriguez on 12-29-2023 Erythrocyte distribution width (RBC) [Entitic vol] 47.5 fL 35.1-43.9 [facility] Hematocrit Auto (Bld) [Volum e fraction]Ordered By: Josué Rodriguez on 12-29-2023 Hematocrit (Bld) [Volume fraction] 42.8 % 40-54 [facility] Laboratory - Chemistry and C hemistry - challengeOrdered By: Josué Rodriguez on 12-29-2023 Albumin/Globulin [Mass ratio] 1.1 {ratio} 0.9-2.4 [facility] ALP [Catalytic activity/Vol] 114 U/L 45-117 [facility] ALT [Catalytic activity/Vol] 25 U/L 16-61 [facility] CO2 [Moles/Vol] 31.0 mmol/L 21.0-32.0 [facility] Globulin (S) [Mass/Vol] 3.6 g/dL 2.2-4.2 [facility] Natriuretic peptide B (Bld) [Mass/Vol] 260.0 pg/mL 0-100 [facility] Urea nitrogen/Creatinine [Mass ratio] 21.2 mg/mg 10-20 [facility] Laboratory - Hematology and Cell countsOrdered By: Josué Rodriguez on 12-29-2023 MCH (RBC) [Entitic mass] 31.0 pg 27.0-32.0 [facility] MCHC (RBC) [Mass/Vol] 32.5 g/dL 32-36 [facility] Platelet mean volume (Bld) [Entitic vol] 11.3 fL 6.2-12.0 [facility] Platelets (Bld) [#/Vol] 217 10*3/uL 150-450 [facility] No Panel InformationOrdered By: Josué Rodriguez on 12-29-2023 Estimated GFR (MDRD) Amer 52 mL/min >60 [facility] Comment on above: GFR Calc Estimated GFR (MDRD) Non-Af Amer 43 mL/min >60 [facility] Comment on above: Non- GFR Calc RBC Auto (Bld) [#/Vol]Ordere d By: Josué Rodriguez on 12-29-2023 RBC (Bld) [#/Vol] 4.49 10*6/uL 4.6-6.2 [facility] Serum or plasma calcium mar urement (mass/volume)Ordered By: Josué Rodriguez on 12-29-2023 Calcium [Mass/Vol] 9.7 mg/dL 8.5-10.1 [facility] Serum or plasma creatinine m easurement (mass/volume)Ordered By: Josué Rodriguez on 12-29-2023 Creatinine [Mass/Vol] 1.70 mg/dL 0.70-1.30 [facility] Comment on above: The validity of the calculated GFR & GFRAA in patients over 70 years has not been determined. Clinical correlation is essential. Serum or plasma urea nitroge n measurement (mass/volume)Ordered By: Josué Rodriguez on 12-29-2023 Urea nitrogen [Mass/Vol] 36 mg/dL 7-18 [facility] Thin prep Papanicolaou smear with manual screeningOrdered By: Josué Rodriguez on 12-29-2023 Thin prep Papanicolaou smear with manual screening 3.9 g/dL 3.2-5.0 [facility] Thin prep Papanicolaou smear with manual screening 27 U/L 15-37 [facility] Thin prep Papanicolaou smear with manual screening 6 5-15 [facility] Basophil percentageOrdered B y: Sharon Robles on 07-10-2023 Basophil percentage 3.5 mg/dL 2.5-4.9 [facility] Chloride [Moles/Vol] 98 mmol/L 98-107 [facility] Glucose [Mass/Vol] 156 mg/dL 74-106 [facility] Comment on above: Fasting Glucose resu lt greater than or equal to 126 mg/dL suggests DIABETES MELLITUS per A.D.A. criteria. Potassium [Moles/Vol] 4.0 mmol/L 3.5-5.1 [facility] Sodium [Moles/Vol] 135 mmol/L 136-145 [facility] WBC (Bld) [#/Vol] 4.9 10*3/uL 4.4-11.0 [facility] Blood erythrocytes count (nu mber/volume)Ordered By: Sharon Robles on 07-10-2023 RBC (Bld) [#/Vol] 4.57 10*6/uL 4.6-6.2 [facility] Blood hemoglobin measurement (mass/volume)Ordered By: Sharon Robles on 07-10-2023 Hemoglobin (Bld) [Mass/Vol] 14.1 g/dL 13.0-16.5 [facility] Blood platelet mean volumeOr dered By: Sharon Robles on 07-10-2023 Platelet mean volume (Bld) [Entitic vol] 10.6 fL 6.2-12.0 [facility] Determination of erythrocyte mean corpuscular volume (MCV)Ordered By: Sharon Robles on 07-10-2023 MCV (RBC) [Entitic vol] 98.5 fL 80-94 [facility] Hematocrit Auto (Bld) [Volum e fraction]Ordered By: Sharon Robles on 07-10-2023 Hematocrit (Bld) [Volume fraction] 45.0 % 40-54 [facility] Laboratory - Chemistry and C hemistry - challengeOrdered By: Sharon Robles on 07-10-2023 CO2 [Moles/Vol] 30.0 mmol/L 21.0-32.0 [facility] Urea nitrogen/Creatinine [Mass ratio] 17.1 mg/mg 10-20 [facility] Laboratory - Hematology and Cell countsOrdered By: Sharon Robles on 07-10-2023 Erythrocyte distribution width (RBC) [Entitic vol] 51.8 fL 35.1-43.9 [facility] Erythrocyte distribution width (RBC) [Ratio] 14.2 % 11.6-14.6 [facility] MCH (RBC) [Entitic mass] 30.9 pg 27.0-32.0 [facility] MCHC Auto (RBC) [Mass/Vol]Or dered By: Sharon Robles on 07-10-2023 MCHC (RBC) [Mass/Vol] 31.3 g/dL 32-36 [facility] No Panel InformationOrdered By: Sharon Robles on 07-10-2023 Estimated GFR (MDRD) Amer 55 mL/min >60 [facility] Comment on above: GFR Calc Estimated GFR (MDRD) Non-Af Amer 45 mL/min >60 [facility] Comment on above: Non- GFR Calc Parathyroid Hormone (Intact) 113.2 pg/mL 18.4-80.1 [facility] Vitamin D 25-Hydroxy 40.9 ng/mL [facility] Comment on above: Vitamin D 25(OH) Sta tus Range Deficiency <20 ng/mL (50nmol/L) Insufficiency 20 - 30 ng/mL (50 - 75 nmol/L) Sufficiency 30 - 100 ng/mL (75 - 250 nmol/L) Toxicity >100 ng/mL (>250 nmol/L) Platelets bldOrdered By: Christian Robles on 07-10-2023 Platelets (Bld) [#/Vol] 212 10*3/uL 150-450 [facility] Serum or plasma albumin mar urement (mass/volume)Ordered By: Sharon Robles on 07-10-2023 Albumin [Mass/Vol] 3.6 g/dL 3.2-5.0 [facility] Serum or plasma calcium mar urement (mass/volume)Ordered By: Sharon Robles on 07-10-2023 Calcium [Mass/Vol] 8.9 mg/dL 8.5-10.1 [facility] Serum or plasma creatinine m easurement (mass/volume)Ordered By: Sharon Robles on 07-10-2023 Creatinine [Mass/Vol] 1.64 mg/dL 0.70-1.30 [facility] Comment on above: The validity of the calculated GFR & GFRAA in patients over 70 years has not been determined. Clinical correlation is essential. Serum or plasma urea nitroge n measurement (mass/volume)Ordered By: Sharon Robles on 07-10-2023 Urea nitrogen [Mass/Vol] 28 mg/dL 7-18 [facility] Urine creatinine measurement (mass/volume)Ordered By: Sharon Robles on 07-10-2023 Creatinine (U) [Mass/Vol] 102.00 mg/dL NO RANGE EST. [facility] Urine protein measurement (m ass/volume)Ordered By: Sharon Robles on 07-10-2023 Protein (U) [Mass/Vol] 11.3 mg/dL 0.0-11.8 [facility] Urine protein/creatinine mas s ratioOrdered By: Sharon Robles on 07-10-2023 Protein/Creatinine (U) [Mass ratio] 111 mg/g CRE 0-200 [facility] Absolute lymphocyte countOrd ered By: Josué Rodriguez on 05-01-2023 Lymphocytes Auto (Unsp spec) [#/Vol] 1.50 10*3/uL 0.83-4.51 [facility] Basophil percentageOrdered B y: Josué Rodriguez on 05-01-2023 Basophils/100 WBC (Bld) 1.3 % 0-1 [facility] Bilirubin [Mass/Vol] 0.60 mg/dL 0.20-1.00 [facility] Comment on above: For patients on eltr ombopag therapy, use of Dim[place] TBIL is not recommended. Chloride [Moles/Vol] 99 mmol/L 98-107 [facility] Cholesterol [Mass/Vol] 121 mg/dL <200 [facility] Comment on above: <200 mg/dL Desirable 200-240 mg/dL Borderline >240 mg/dL High Risk Eosinophils/100 WBC (Bld) 3.4 % 0-5 [facility] Glucose [Mass/Vol] 116 mg/dL 74-106 [facility] Comment on above: Fasting Glucose resu lt from 100 to 125 mg/dL suggests IMPAIRED HOMEOSTASIS per A.D.A. criteria. Neutrophils (Bld) [#/Vol] 3.2 10*3/uL 2.0-7.7 [facility] Neutrophils/100 WBC (Bld) 58.0 % 47-70 [facility] Potassium [Moles/Vol] 4.5 mmol/L 3.5-5.1 [facility] Protein [Mass/Vol] 7.3 g/dL 6.4-8.2 [facility] Sodium [Moles/Vol] 134 mmol/L 136-145 [facility] Testosterone [Mass/Vol] 282.37 ng/dL [facility] Comment on above: CENTRAL 90% REFERENC E RANGES MALE AGE <50 197.44 - 669.58 ng/dL MALE AGE > or = 50 187.72 - 684.19 ng/dL FEMALE AGE <50 8.38 - 35.01 ng/dL FEMALE AGE > or = 50 <7.00 - 35.92 ng/dL Effective as of 04/02/21 Triglyceride [Mass/Vol] 65 mg/dL <199 [facility] Comment on above: The drugs N-Acetylcy steine and Metamizole may falsely depress this assay.Serum Triglycerides Reference Interval Normal <150 mg/dL Borderline high 150 - 199 mg/dL High 200 - 499 mg/dL Very High > or = 500 mg/dL WBC (Bld) [#/Vol] 5.5 10*3/uL 4.4-11.0 [facility] Blood erythrocytes count (nu mber/volume)Ordered By: Josué Rodriguez on 05-01-2023 RBC (Bld) [#/Vol] 4.93 10*6/uL 4.6-6.2 [facility] Blood hemoglobin measurement (mass/volume)Ordered By: Josué Rodriguez on 05-01-2023 Hemoglobin (Bld) [Mass/Vol] 15.1 g/dL 13.0-16.5 [facility] Blood lymphocytes/100 leukoc ytesOrdered By: Josué Rodriguez on 05-01-2023 Lymphocytes/100 WBC (Bld) 27.1 % 19-41 [facility] Blood monocytes/100 leukocyt esOrdered By: Josué Rodriguez on 05-01-2023 Monocytes/100 WBC (Bld) 9.7 % 0-10 [facility] Blood platelet mean volumeOr dered By: Josué Rodriguez on 05-01-2023 Platelet mean volume (Bld) [Entitic vol] 10.8 fL 6.2-12.0 [facility] Determination of erythrocyte mean corpuscular volume (MCV)Ordered By: Josué Rodriguez on 05-01-2023 MCV (RBC) [Entitic vol] 95.3 fL 80-94 [facility] Hematocrit Auto (Bld) [Volum e fraction]Ordered By: Josué Rodriguez on 05-01-2023 Hematocrit (Bld) [Volume fraction] 47.0 % 40-54 [facility] Laboratory - Chemistry and C hemistry - challengeOrdered By: Josué Rodriguez on 05-01-2023 ALP [Catalytic activity/Vol] 98 U/L 45-117 [facility] ALT [Catalytic activity/Vol] 24 U/L 16-61 [facility] CO2 [Moles/Vol] 30.0 mmol/L 21.0-32.0 [facility] Globulin (S) [Mass/Vol] 3.5 g/dL 2.2-4.2 [facility] Urea nitrogen/Creatinine [Mass ratio] 20.1 mg/mg 10-20 [facility] Laboratory - Hematology and Cell countsOrdered By: Josué Rodriguez on 05-01-2023 Erythrocyte distribution width (RBC) [Entitic vol] 48.4 fL 35.1-43.9 [facility] Erythrocyte distribution width (RBC) [Ratio] 13.9 % 11.6-14.6 [facility] Immature granulocytes/100 WBC (Bld) 0.500 % 0.0-0.9 [facility] Comment on above: IG% - Immature Granu locytes (promyelocytes, myelocytes and metamyelocytes) > 1% indicates that a LEFT SHIFT is Present. MCH (RBC) [Entitic mass] 30.6 pg 27.0-32.0 [facility] Nucleated RBC/100 WBC (Bld) [Ratio] 0 % 0-5 [facility] MCHC Auto (RBC) [Mass/Vol]Or dered By: Josué Rodriguez on 05-01-2023 MCHC (RBC) [Mass/Vol] 32.1 g/dL 32-36 [facility] No Panel InformationOrdered By: Josué Rodriguez on 05-01-2023 Estimated GFR (MDRD) Amer 55 mL/min >60 [facility] Comment on above: GFR Calc Estimated GFR (MDRD) Non-Af Amer 45 mL/min >60 [facility] Comment on above: Non- GFR Calc Urine Microalbumin/Creatinine Ratio 7.1 mg/g CRE <30 [facility] Vitamin D 25-Hydroxy 49.5 ng/mL [facility] Comment on above: Vitamin D 25(OH) Sta tus Range Deficiency <20 ng/mL (50nmol/L) Insufficiency 20 - 30 ng/mL (50 - 75 nmol/L) Sufficiency 30 - 100 ng/mL (75 - 250 nmol/L) Toxicity >100 ng/mL (>250 nmol/L) Platelets bldOrdered By: Bailee Rodriguez on 05-01-2023 Platelets (Bld) [#/Vol] 193 10*3/uL 150-450 [facility] Serum or plasma albumin mar urement (mass/volume)Ordered By: Josué Rodriguez on 05-01-2023 Albumin [Mass/Vol] 3.8 g/dL 3.2-5.0 [facility] Serum or plasma albumin/glob ulin mass ratioOrdered By: Josué Rodriguez on 05-01-2023 Albumin/Globulin [Mass ratio] 1.1 {ratio} 0.9-2.4 [facility] Serum or plasma calcium mar urement (mass/volume)Ordered By: Josué Rodriguez on 05-01-2023 Calcium [Mass/Vol] 9.2 mg/dL 8.5-10.1 [facility] Serum or plasma cholesterol in HDL measurement (mass/volume)Ordered By: Josué Rodriguez on 05-01-2023 Cholesterol in HDL [Mass/Vol] 41 mg/dL >40 [facility] Comment on above: The drugs N-Acetylcy steine and Metamizole may falsely depress this assay. Reference Range HDL <40 mg/dL Low HDL Cholesterol HDL >or= 60 mg/dL High HDL Cholesterol Serum or plasma cholesterol in VLDL measurement (mass/volume)Ordered By: Josué Rodriguez on 05-01-2023 Cholesterol in VLDL [Mass/Vol] 13 mg/dL 5-40 [facility] Serum or plasma creatinine m easurement (mass/volume)Ordered By: Josué Rodriguez on 05-01-2023 Creatinine [Mass/Vol] 1.64 mg/dL 0.70-1.30 [facility] Comment on above: The validity of the calculated GFR & GFRAA in patients over 70 years has not been determined. Clinical correlation is essential. Serum or plasma low density lipoprotein (LDL) cholesterol measurement (mass/volume)Ordered By: Josué Rodriguez on 05-01-2023 Cholesterol in LDL [Mass/Vol] 67 mg/dL 0-130 [facility] Serum or plasma urea nitroge n measurement (mass/volume)Ordered By: Josué Rodriguez on 05-01-2023 Urea nitrogen [Mass/Vol] 33 mg/dL 7-18 [facility] Thin prep Papanicolaou smear with manual screeningOrdered By: Josué Rodriguez on 05-01-2023 Thin prep Papanicolaou smear with manual screening 21 U/L 15-37 [facility] Thin prep Papanicolaou smear with manual screening 5 5-15 [facility] Thin prep Papanicolaou smear with manual screening 6.5 mg/L NO RANGE EST. [facility] Urine creatinine measurement (mass/volume)Ordered By: Josué Rodriguez on 05-01-2023 Creatinine (U) [Mass/Vol] 91.50 mg/dL NO RANGE EST. [facility] Basophil percentageOrdered B y: Elsa Saavedra on 12-31-2022 Basophil percentage 2.9 mg/dL 2.5-4.9 [facility] Chloride [Moles/Vol] 100 mmol/L 98-107 [facility] Glucose [Mass/Vol] 297 mg/dL 74-106 [facility] Comment on above: Glucose result great er than or equal to 200 mg/dLsuggests DIABETES MELLITUS per A.D.A. criteria. Potassium [Moles/Vol] 4.5 mmol/L 3.5-5.1 [facility] Sodium [Moles/Vol] 131 mmol/L 136-145 [facility] WBC (Bld) [#/Vol] 5.3 10*3/uL 4.4-11.0 [facility] Blood erythrocytes count (nu mber/volume)Ordered By: Elsa Saavedra on 12-31-2022 RBC (Bld) [#/Vol] 5.02 10*6/uL 4.6-6.2 [facility] Blood hemoglobin measurement (mass/volume)Ordered By: Elsa Saavedra on 12-31-2022 Hemoglobin (Bld) [Mass/Vol] 15.9 g/dL 13.0-16.5 [facility] Blood platelet mean volumeOr dered By: Elsa Saavedra on 12-31-2022 Platelet mean volume (Bld) [Entitic vol] 10.9 fL 6.2-12.0 [facility] Determination of erythrocyte mean corpuscular volume (MCV)Ordered By: Elsa Saavedra on 12-31-2022 MCV (RBC) [Entitic vol] 100.2 fL 80-94 [facility] Hematocrit Auto (Bld) [Volum e fraction]Ordered By: Elsa Saavedra on 12-31-2022 Hematocrit (Bld) [Volume fraction] 50.3 % 40-54 [facility] Laboratory - Chemistry and C hemistry - challengeOrdered By: Elsa Saavedra on 12-31-2022 CO2 [Moles/Vol] 29.0 mmol/L 21.0-32.0 [facility] Urea nitrogen/Creatinine [Mass ratio] 19.3 mg/mg 10-20 [facility] Laboratory - Hematology and Cell countsOrdered By: Elsa Saavedra on 12-31-2022 Erythrocyte distribution width (RBC) [Entitic vol] 53.9 fL 35.1-43.9 [facility] Erythrocyte distribution width (RBC) [Ratio] 14.6 % 11.6-14.6 [facility] MCH (RBC) [Entitic mass] 31.7 pg 27.0-32.0 [facility] MCHC Auto (RBC) [Mass/Vol]Or dered By: Elsa Saavedra on 12-31-2022 MCHC (RBC) [Mass/Vol] 31.6 g/dL 32-36 [facility] No Panel InformationOrdered By: Elsa Saavedra on 12-31-2022 Estimated GFR (MDRD) Amer 46 mL/min >60 [facility] Comment on above: GFR Calc Estimated GFR (MDRD) Non-Af Amer 38 mL/min >60 [facility] Comment on above: Non- GFR Calc Parathyroid Hormone (Intact) 138.4 pg/mL 18.4-80.1 [facility] Vitamin D 25-Hydroxy 41.3 ng/mL [facility] Comment on above: Vitamin D 25(OH) Sta tus Range Deficiency <20 ng/mL (50nmol/L) Insufficiency 20 - 30 ng/mL (50 - 75 nmol/L) Sufficiency 30 - 100 ng/mL (75 - 250 nmol/L) Toxicity >100 ng/mL (>250 nmol/L) Platelets bldOrdered By: Tigre Saavedra on 12-31-2022 Platelets (Bld) [#/Vol] 262 10*3/uL 150-450 [facility] Serum or plasma albumin mar urement (mass/volume)Ordered By: Elsa Saavedra on 12-31-2022 Albumin [Mass/Vol] 3.6 g/dL 3.2-5.0 [facility] Serum or plasma calcium mar urement (mass/volume)Ordered By: Elsa Saavedra on 12-31-2022 Calcium [Mass/Vol] 9.2 mg/dL 8.5-10.1 [facility] Serum or plasma creatinine m easurement (mass/volume)Ordered By: Elsa Saavedra on 12-31-2022 Creatinine [Mass/Vol] 1.92 mg/dL 0.70-1.30 [facility] Comment on above: The validity of the calculated GFR & GFRAA in patients over 70 years has not been determined. Clinical correlation is essential. Serum or plasma urea nitroge n measurement (mass/volume)Ordered By: Elsa Saavedra on 12-31-2022 Urea nitrogen [Mass/Vol] 37 mg/dL 7-18 [facility] Urine creatinine measurement (mass/volume)Ordered By: Elsa Saavedra on 12-31-2022 Creatinine (U) [Mass/Vol] 100.00 mg/dL NO RANGE EST. [facility] Urine protein measurement (m ass/volume)Ordered By: Elsa Saavedra on 12-31-2022 Protein (U) [Mass/Vol] 11.9 mg/dL 0.0-11.8 [facility] Urine protein/creatinine mas s ratioOrdered By: Elsa Saavedra on 12-31-2022 Protein/Creatinine (U) [Mass ratio] 119 mg/g CRE 0-200 [facility] Absolute lymphocyte counton 06-20-2022 Lymphocytes Auto (Unsp spec) [#/Vol] 1.46 10*3/uL 0.83-4.51 [facility] Work Phone: Basophil percentageon 2021 Basophil percentage 4.3 mg/dL 2.5-4.9 [facility] Work Phone: Basophils/100 WBC (Bld) 1.0 % 0-1 [facility] Work Phone: Chloride [Moles/Vol] 99 mmol/L 98-107 [facility] Work Phone: Cholesterol [Mass/Vol] 174 mg/dL <200 [facility] Work Phone: Comment on above: <200 mg/dL Desirable 200-240 mg/dL Borderline >240 mg/dL High Risk Eosinophils/100 WBC (Bld) 2.6 % 0-5 [facility] Work Phone: Glucose [Mass/Vol] 108 mg/dL 74-106 [facility] Work Phone: Comment on above: Fasting Glucose resu lt from 100 to 125 mg/dL suggests IMPAIRED HOMEOSTASIS per A.D.A. criteria. Neutrophils (Bld) [#/Vol] 4.0 10*3/uL 2.0-7.7 [facility] Work Phone: Neutrophils/100 WBC (Bld) 64.1 % 47-70 [facility] Work Phone: Potassium [Moles/Vol] 4.9 mmol/L 3.5-5.1 [facility] Work Phone: Sodium [Moles/Vol] 135 mmol/L 136-145 [facility] Work Phone: Triglyceride [Mass/Vol] 149 mg/dL <199 [facility] Work Phone: Comment on above: The drugs N-Acetylcy steine and Metamizole may falsely depress this assay.Serum Triglycerides Reference Interval Normal <150 mg/dL Borderline high 150 - 199 mg/dL High 200 - 499 mg/dL Very High > or = 500 mg/dL WBC (Bld) [#/Vol] 6.3 10*3/uL 4.4-11.0 [facility] Work Phone: Blood erythrocytes count (nu mber/volume)on 06-20-2022 RBC (Bld) [#/Vol] 5.99 10*6/uL 4.6-6.2 [facility] Work Phone: Blood hemoglobin measurement (mass/volume)on 06-20-2022 Hemoglobin (Bld) [Mass/Vol] 18.8 g/dL 13.0-16.5 [facility] Work Phone: Blood lymphocytes/100 leukoc yteson 06-20-2022 Lymphocytes/100 WBC (Bld) 23.4 % 19-41 [facility] Work Phone: Blood manual differential co mment interpretation (narrative result)on 06-20-2022 Manual differential comment Vinicio (Bld) [Interp] COMMENT [facility] Work Phone: Comment on above: SLIDE TO PATHOLOGY D UE TO CRITICAL HGB. Blood monocytes/100 leukocyt eson 06-20-2022 Monocytes/100 WBC (Bld) 8.6 % 0-10 [facility] Work Phone: [phone] Blood platelet mean volumeon 06-20-2022 Platelet mean volume (Bld) [Entitic vol] 11.2 fL 6.2-12.0 [facility] Work Phone: [phone] Determination of erythrocyte mean corpuscular volume (MCV)on 06-20-2022 MCV (RBC) [Entitic vol] 98.7 fL 80-94 [facility] Work Phone: [phone] Hematocrit Auto (Bld) [Volum e fraction]on 06-20-2022 Hematocrit (Bld) [Volume fraction] 59.1 % 40-54 [facility] Work Phone: [phone] Hemoglobin in reticulocytes (mass per reticulocyte)on 06-20-2022 Hemoglobin (Reticulocytes) [Entitic mass] 35.9 pg 30-35 [facility] Work Phone: [phone] Laboratory - Chemistry and C hemistry - challengeon 06-20-2022 CO2 [Moles/Vol] 30.0 mmol/L 21.0-32.0 [facility] [facility] Work Phone: [phone] Urea nitrogen/Creatinine [Mass ratio] 24.3 mg/mg 10-20 [facility] Work Phone: [phone] Laboratory - Hematology and Cell countson 06-20-2022 Erythrocyte distribution width (RBC) [Entitic vol] 48.0 fL 35.1-43.9 [facility] Work Phone: [phone] Erythrocyte distribution width (RBC) [Ratio] 13.2 % 11.6-14.6 [facility] Work Phone: [phone] Immature granulocytes/100 WBC (Bld) 0.300 % 0.0-0.9 [facility] Work Phone: [phone] Comment on above: IG% - Immature Granu locytes (promyelocytes, myelocytes and metamyelocytes) > 1% indicates that a LEFT SHIFT is Present. MCH (RBC) [Entitic mass] 31.4 pg 27.0-32.0 [facility] Work Phone: [phone] Nucleated RBC/100 WBC (Bld) [Ratio] 0 % 0-5 [facility] Work Phone: [phone] MCHC Auto (RBC) [Mass/Vol]on 06-20-2022 MCHC (RBC) [Mass/Vol] 31.8 g/dL 32-36 [facility] Work Phone: [phone] Panel Informationon 06-20 Estimated GFR (MDRD) Amer 49 mL/min >60 [facility] Work Phone: [phone] Comment on above: GFR Calc Estimated GFR (MDRD) Non-Af Amer 40 mL/min >60 [facility] Work Phone: Comment on above: Non- GFR Calc Immature Reticulocyte Fraction 6.80 % 3.00-15.90 [facility] Work Phone: Reticulocyte Count 1.00 % 0.5-1.5 [facility] Work Phone: Platelets bldon 06-20-2022 Platelets (Bld) [#/Vol] 217 10*3/uL 150-450 [facility] Work Phone: Review by pathologiston 06-07 Pathologist review Vinicio (Unsp spec) [Interp] Reviewed [facility] Work Phone: Comment on above: Previous reported re sult: Jeni chaves Edited by: RUEL on 06/23/22:1113Polycythemia Clinical correlation necessary.Raffaele Argueta M.D. 06/23/22 AMENDED REPORT 06/23/22 1113 PATH REV previously reported as: Jeni chaves Serum or plasma albumin mar urement (mass/volume)on 06-20-2022 Albumin [Mass/Vol] 4.0 g/dL 3.2-5.0 [facility] Work Phone: Serum or plasma calcium mar urement (mass/volume)on 06-20-2022 Calcium [Mass/Vol] 10.0 mg/dL 8.5-10.1 [facility] Work Phone: Serum or plasma cholesterol in HDL measurement (mass/volume)on 06-20-2022 Cholesterol in HDL [Mass/Vol] 40 mg/dL >40 [facility] Work Phone: Comment on above: The drugs N-Acetylcy steine and Metamizole may falsely depress this assay. Reference Range HDL <40 mg/dL Low HDL Cholesterol HDL >or= 60 mg/dL High HDL Cholesterol Serum or plasma cholesterol in VLDL measurement (mass/volume)on 06-20-2022 Cholesterol in VLDL [Mass/Vol] 30 mg/dL 5-40 [facility] Work Phone: [phone] Serum or plasma creatinine m easurement (mass/volume)on 06-20-2022 Creatinine [Mass/Vol] 1.81 mg/dL 0.70-1.30 [facility] Work Phone: Comment on above: The validity of the calculated GFR & GFRAA in patients over 70 years has not been determined. Clinical correlation is essential. Serum or plasma ferritin evan surement (mass/volume)on 06-20-2022 Ferritin [Mass/Vol] 230 ng/mL 26-388 [facility] Work Phone: [phone] Serum or plasma low density lipoprotein (LDL) cholesterol measurement (mass/volume)on 06-20-2022 Cholesterol in LDL [Mass/Vol] 104 mg/dL 0-130 [facility] Work Phone: [phone] Serum or plasma urea nitroge n measurement (mass/volume)on 06-20-2022 Urea nitrogen [Mass/Vol] 44 mg/dL 7-18 [facility] Work Phone: Basophil percentageon 2021 Basophil percentage 3.5 mg/dL 2.5-4.9 [facility] Work Phone: Chloride [Moles/Vol] 99 mmol/L 98-107 [facility] Work Phone: Glucose [Mass/Vol] 136 mg/dL 74-106 [facility] Work Phone: Comment on above: Fasting Glucose resu lt greater than or equal to 126 mg/dL suggests DIABETES MELLITUS per A.D.A. criteria. Potassium [Moles/Vol] 4.4 mmol/L 3.5-5.1 [facility] Work Phone: Sodium [Moles/Vol] 136 mmol/L 136-145 [facility] Work Phone: [phone] WBC (Bld) [#/Vol] 5.5 10*3/uL 4.4-11.0 [facility] Work Phone: [phone] Blood erythrocytes count (nu mber/volume)on 06-03-2022 RBC (Bld) [#/Vol] 6.07 10*6/uL 4.6-6.2 [facility] Work Phone: [phone] Blood hemoglobin measurement (mass/volume)on 06-03-2022 Hemoglobin (Bld) [Mass/Vol] 19.1 g/dL 13.0-16.5 [facility] Work Phone: [phone] Comment on above: CRITICAL VALUE VERIF IED. CALLED TO 06/03/22 1639 Eyad Jimenez.RESULTS READ BACK BY SAME . Blood platelet mean volumeon 06-03-2022 Platelet mean volume (Bld) [Entitic vol] 11.0 fL 6.2-12.0 [facility] Work Phone: [phone] Determination of erythrocyte mean corpuscular volume (MCV)on 06-03-2022 MCV (RBC) [Entitic vol] 95.6 fL 80-94 [facility] Work Phone: [phone] Hematocrit Auto (Bld) [Volum e fraction]on 06-03-2022 Hematocrit (Bld) [Volume fraction] 58.0 % 40-54 [facility] Work Phone: [phone] Laboratory - Chemistry and C hemistry - challengeon 06-03-2022 CO2 [Moles/Vol] 29.0 mmol/L 21.0-32.0 [facility] Work Phone: [phone] Urea nitrogen/Creatinine [Mass ratio] 19.9 mg/mg 10-20 [facility] Work Phone: [phone] Laboratory - Hematology and Cell countson 06-03-2022 Erythrocyte distribution width (RBC) [Entitic vol] 47.5 fL 35.1-43.9 [facility] Work Phone: [phone] Erythrocyte distribution width (RBC) [Ratio] 13.5 % 11.6-14.6 [facility] Work Phone: [phone] MCH (RBC) [Entitic mass] 31.5 pg 27.0-32.0 [facility] Work Phone: [phone] MCHC Auto (RBC) [Mass/Vol]on 06-03-2022 MCHC (RBC) [Mass/Vol] 32.9 g/dL 32-36 [facility] Work Phone: No Panel Informationon 06-03 Estimated GFR (MDRD) Amer 49 mL/min >60 [facility] Work Phone: Comment on above: GFR Calc Estimated GFR (MDRD) Non-Af Amer 40 mL/min >60 [facility] Work Phone: Comment on above: Non- GFR Calc Miscellaneous Test See comment [facility] Work Phone: Comment on above: TEST RESULT LIMITSAn ti-PR3 Antibodies <0.2 units 0.0-0.9 ___ TESTING PERFORMED AT [facility]. ORIGINAL REPORT ON FILE IN LAB CONTAINS ADDITIONAL TEST SITE INFORMATION. Parathyroid Hormone (Intact) 100.4 pg/mL 18.4-80.1 [facility] Work Phone: Vitamin D 25-Hydroxy 42.8 ng/mL [facility] Work Phone: Comment on above: Vitamin D 25(OH) Sta tus Range Deficiency <20 ng/mL (50nmol/L) Insufficiency 20 - 30 ng/mL (50 - 75 nmol/L) Sufficiency 30 - 100 ng/mL (75 - 250 nmol/L) Toxicity >100 ng/mL (>250 nmol/L) Platelets bldon 06-03-2022 Platelets (Bld) [#/Vol] 206 10*3/uL 150-450 [facility] Work Phone: Review by pathologiston 05-09 Pathologist review Vinicio (Unsp spec) [Interp] Reviewed [facility] Work Phone: Comment on above: Previous reported re sult: Jeni chaves Edited by: RUEL on 06/04/22:1212Polycythemia Clinical correlation necessary.Raffaele Argueta M.D. 06/04/22 AMENDED REPORT 06/04/22 1212 PATH REV previously reported as: Jeni chaves Serum or plasma albumin mar urement (mass/volume)on 06-03-2022 Albumin [Mass/Vol] 4.0 g/dL 3.2-5.0 [facility] Work Phone: Serum or plasma calcium mar urement (mass/volume)on 06-03-2022 Calcium [Mass/Vol] 9.4 mg/dL 8.5-10.1 [facility] Work Phone: Serum or plasma creatinine m easurement (mass/volume)on 06-03-2022 Creatinine [Mass/Vol] 1.81 mg/dL 0.70-1.30 [facility] Work Phone: Comment on above: The validity of the calculated GFR & GFRAA in patients over 70 years has not been determined. Clinical correlation is essential. Serum or plasma urea nitroge n measurement (mass/volume)on 06-03-2022 Urea nitrogen [Mass/Vol] 36 mg/dL 7-18 [facility] Work Phone: Urine creatinine measurement (mass/volume)on 06-03-2022 Creatinine (U) [Mass/Vol] 76.60 mg/dL NO RANGE EST. [facility] Work Phone: Urine protein measurement (m ass/volume)on 06-03-2022 Protein (U) [Mass/Vol] 22.0 mg/dL 0.0-11.8 [facility] Work Phone: Urine protein/creatinine mas s ratioon 06-03-2022 Protein/Creatinine (U) [Mass ratio] 287 mg/g CRE 0-200 [facility] Work Phone: Basophil percentageon 2021 Basophil percentage 0-5 SEEN /hpf [facility] Work Phone: Bilirubin Test strip Ql (U)o n 12-03-2021 Bilirubin Ql (U) Negative Negative [facility] Work Phone: Ketones Test strip Ql (U)on 12-03-2021 Ketones Ql (U) Negative Negative [facility] Work Phone: Mucus LM Ql (Urine sed)on Mucus Ql (Urine sed) 0 SEEN /hpf [facility] Work Phone: Nitrite Test strip Ql (U)on 12-03-2021 Nitrite Ql (U) Negative Negative [facility] Work Phone: Protein Test strip Ql (U)on 12-03-2021 Protein Ql (U) 30 mg/dl Negative [facility] Work Phone: Squamous epithelial cells de tection in urine sediment by light microscopyon 12-03-2021 Epithelial cells.squamous LM Ql (Urine sed) 0 SEEN /hpf [facility] Work Phone: Urine blood detectionon 11-06 RBC Ql (U) Negative Negative [facility] Work Phone: RBC Ql (U) 0 SEEN /hpf [facility] Work Phone: Urine clarityon 12-03-2021 Clarity (U) Clear Clear [facility] Work Phone: Urine color determinationon 12-03-2021 Color (U) Yellow Yellow [facility] Work Phone: Urine glucose detectionon Glucose Ql (U) Normal mg/dl Normal [facility] Work Phone: Urine leukocyte esterase det ection by dipstickon 12-03-2021 Leukocyte esterase Test strip Ql (U) 25 /ul Negative [facility] Work Phone: Urine pHon 12-03-2021 pH (U) 6.0 [pH] [facility] Work Phone: Urine sediment bacteria coun t by microscopy (number/high power field)on 12-03-2021 Bacteria LM.HPF (Urine sed) [#/Area] 0 /[HPF] None Seen [facility] Work Phone: [phone] Urine specific gravity measu rementon 12-03-2021 Specific gravity (U) [Rel density] 1.010 [facility] Work Phone: [phone] Urobilinogen Auto test strip Ql (U)on 12-03-2021 Urobilinogen Ql (U) Normal mg/dl Normal [facility] Work Phone: [phone] Atypical perinuclear antineu trophil cytoplasmic antibodies measurementon 12-02-2021 Neutrophil cytoplasmic Ab.perinuclear.atypical IF (S) [Titer] <1:20 titer Neg:<1:20 [facility] Work Phone: [phone] Comment on above: The atypical pANCA p attern has been observed in asignificant percentage of patients with ulcerative colitis,primary sclerosing cholangitis and autoimmune hepatitis. Basophil percentageon 2021 Chloride [Moles/Vol] 100 mmol/L 98-107 [facility] Work Phone: [phone] Glucose [Mass/Vol] 157 mg/dL 74-106 [facility] Work Phone: [phone] Comment on above: Fasting Glucose resu lt greater than or equal to 126 mg/dL suggests DIABETES MELLITUS per A.D.A. criteria. Potassium [Moles/Vol] 4.2 mmol/L 3.5-5.1 [facility] Work Phone: [phone] Sodium [Moles/Vol] 138 mmol/L 136-145 [facility] Work Phone: [phone] WBC (Bld) [#/Vol] 5.4 10*3/uL 4.4-11.0 [facility] Work Phone: [phone] Blood erythrocytes count (nu mber/volume)on 12-02-2021 RBC (Bld) [#/Vol] 5.56 10*6/uL 4.6-6.2 [facility] Work Phone: [phone] Blood hemoglobin measurement (mass/volume)on 12-02-2021 Hemoglobin (Bld) [Mass/Vol] 17.7 g/dL 13.0-16.5 [facility] Work Phone: [phone] Blood platelet mean volumeon 12-02-2021 Platelet mean volume (Bld) [Entitic vol] 10.6 fL 6.2-12.0 [facility] Work Phone: [phone] Determination of erythrocyte mean corpuscular volume (MCV)on 12-02-2021 MCV (RBC) [Entitic vol] 97.7 fL 80-94 [facility] Work Phone: [phone] Hematocrit Auto (Bld) [Volum e fraction]on 12-02-2021 Hematocrit (Bld) [Volume fraction] 54.3 % 40-54 [facility] Work Phone: [phone] Laboratory - Chemistry and C hemistry - challengeon 12-02-2021 Albumin [Mass/Vol] 4.0 g/dL [facility] Work Phone: [phone] CO2 [Moles/Vol] 33.0 mmol/L 21.0-32.0 [facility] Work Phone: [phone] Urea nitrogen/Creatinine [Mass ratio] 20.9 mg/mg 10-20 [facility] Work Phone: [phone] Laboratory - Hematology and Cell countson 12-02-2021 Erythrocyte distribution width (RBC) [Entitic vol] 52.0 fL 35.1-43.9 [facility] Work Phone: [phone] Erythrocyte distribution width (RBC) [Ratio] 14.4 % 11.6-14.6 [facility] Work Phone: [phone] MCH (RBC) [Entitic mass] 31.8 pg 27.0-32.0 [facility] Work Phone: [phone] MCHC Auto (RBC) [Mass/Vol]on 12-02-2021 MCHC (RBC) [Mass/Vol] 32.6 g/dL 32-36 [facility] Work Phone: [phone] No Panel Informationon 12-02 Addendum Document Comment [facility] Work Phone: [phone] Comment on above: The SPE pattern appe ars unremarkable. Evidence ofmonoclonal protein is not apparent. Bxaqc-1-Nkfsvypub 0.2 g/dL [facility] Work Phone: Cvcpt-9-Ubnobtecb 0.8 g/dL [facility] Work Phone: [phone] Estimated GFR (MDRD) Amer 57 mL/min >60 [facility] Work Phone: Comment on above: GFR Calc Estimated GFR (MDRD) Non-Af Amer 47 mL/min >60 [facility] Work Phone: [phone] Comment on above: Non- GFR Calc Free Lambda Light Chains, Quant 29.0 mg/L [facility] Work Phone: [phone] Gamma Globulins 1.3 g/dL [facility] Work Phone: [phone] Parathyroid Hormone (Intact) 98.0 pg/mL 18.4-80.1 [facility] Work Phone: [phone] Platelets bldon 12-02-2021 Platelets (Bld) [#/Vol] 222 10*3/uL 150-450 [facility] Work Phone: Protein Fractions Elph [Inte rp]on 12-02-2021 Protein Fractions [Interp] Comment [facility] Work Phone: [phone] Comment on above: Protein electrophore sis scan will follow via computer,mail, or city tax auditor delivery. Serum DNA double strand anti body assay (units/volume)on 12-02-2021 DNA double strand Ab Qn (S) [IU]/mL [facility] Work Phone: Comment on above: Negative <5 Equivoca l 5 - 9 Positive >9Performed at: - [facility] [id number] Director: Ravindra Harley PhD, Phone: [phone] Serum albumin to globulin ra orion by protein electrophoresison 12-02-2021 Albumin/Globulin Elph [Mass ratio] 1.2 [facility] Work Phone: [phone] Serum classic neutrophil cyt oplasmic antibody assay (units/volume)on 12-02-2021 Neutrophil cytoplasmic Ab.classic Qn (S) 1:640 titer Neg:<1:20 [facility] Work Phone: Serum globulin measurement ( mass/volume)on 12-02-2021 Globulin (S) [Mass/Vol] 3.3 g/dL [facility] Work Phone: Serum immunoglobulin kappa l ight chains/immunoglobulin lambda light chains mass ratioon 12-02-2021 Immunoglobulin light chains.kappa/Immunoglobu caitlin light chains.lambda (S) [Mass ratio] 1.19 [facility] Work Phone: Serum or plasma beta globuli n measurement by electrophoresis (mass/volume)on 12-02-2021 Beta globulin Elph [Mass/Vol] 1.0 g/dL [facility] Work Phone: [phone] Serum or plasma calcium mar urement (mass/volume)on 12-02-2021 Calcium [Mass/Vol] 8.8 mg/dL 8.5-10.1 [facility] Work Phone: Serum or plasma complement C 3 measurement (mass/volume)on 12-02-2021 Complement C3 [Mass/Vol] 124 mg/dL [facility] Work Phone: Comment on above: Performed at: [place] [id number] Director: Ravindra Harley PhD, Phone: [phone] Serum or plasma complement C 4 measurement (mass/volume)on 12-02-2021 Complement C4 [Mass/Vol] 28 mg/dL [facility] Work Phone: [phone] Serum or plasma creatinine m easurement (mass/volume)on 12-02-2021 Creatinine [Mass/Vol] 1.58 mg/dL 0.70-1.30 [facility] Work Phone: Comment on above: The validity of the calculated GFR & GFRAA in patients over 70 years has not been determined. Clinical correlation is essential. Serum or plasma immunoglobul in kappa light chains measurement (mass/volume)on 12-02-2021 Immunoglobulin light chains.kappa [Mass/Vol] 34.4 mg/L [facility] Work Phone: Serum or plasma urea nitroge n measurement (mass/volume)on 12-02-2021 Urea nitrogen [Mass/Vol] 33 mg/dL 7-18 [facility] Work Phone: [phone] Serum perinuclear neutrophil cytoplasmic antibody titer by immunofluorescenceon 12-02-2021 Neutrophil cytoplasmic Ab.perinuclear IF (S) [Titer] <1:20 titer Neg:<1:20 [facility] Work Phone: Comment on above: The presence of posi tive fluorescence exhibiting P-ANCA orC-ANCA patterns alone is not specific for the diagnosis ofWegener's Granulomatosis (WG) or microscopic polyangiitis.Decisions about treatment should not be based solely onANCA IFA results. The [employer] Consensusrecommends follow up testing of positive sera with both SC-3 and MPO-ANCA enzyme immunoassays. As many as 5% serumsamples are positive only by EIA. Ref. AM J Clin Mdusyo1609;111:507-513. Thin prep Papanicolaou smear with manual screeningon 12-02-2021 Thin prep Papanicolaou smear with manual screening 5 5-15 [facility] Work Phone: Thin prep Papanicolaou smear with manual screening See comment [facility] Work Phone: Comment on above: NOT OBSERVED Total protein bloodon 2021 Protein [Mass/Vol] 7.3 g/dL [facility] Work Phone: [phone] Urine creatinine measurement (mass/volume)on 12-02-2021 Creatinine (U) [Mass/Vol] 38.20 mg/dL NO RANGE EST. [facility] Work Phone: [phone] Urine protein measurement (m ass/volume)on 12-02-2021 Protein (U) [Mass/Vol] 29.3 mg/dL 0.0-11.8 [facility] Work Phone: [phone] Urine protein/creatinine mas s ratioon 12-02-2021 Protein/Creatinine (U) [Mass ratio] 767 mg/g CRE 0-200 [facility] Work Phone: [phone] Laboratory - Chemistry and C hemistry - challengeon 10-15-2021 Free T4 [Mass/Vol] 1.34 ng/dL 0.76-1.46 [facility] Work Phone: No Panel Informationon 10-15 Free Triiodothyronine (T3) pg/dL 2.4 pg/mL 2.18-3.98 [facility] Work Phone: Thyroid Stimulating Hormone (TSH) 2.22 uIU/mL 0.358-3.74 [facility] Work Phone: Absolute lymphocyte counton 08-16-2021 Lymphocytes Auto (Unsp spec) [#/Vol] 1.12 10*3/uL 0.83-4.51 [facility] Work Phone: Basophil percentageon 2020 Basophil percentage 3.6 mg/dL 2.5-4.9 [facility] Work Phone: Chloride [Moles/Vol] 98 mmol/L 98-107 [facility] Work [facility]: Eosinophils/100 WBC (Bld) 2.9 % 0-5 [facility] Work Phone: Glucose [Mass/Vol] 149 mg/dL 74-106 [facility] Work Phone: Comment on above: Fasting Glucose resu lt greater than or equal to 126 mg/dL suggests DIABETES MELLITUS per A.D.A. criteria.Please note revised GLUCOSE reference range effective 2017. Neutrophils (Bld) [#/Vol] 2.8 10*3/uL 2.0-7.7 [facility] Work Phone: Potassium [Moles/Vol] 3.8 mmol/L 3.5-5.1 [facility] Work Phone: Sodium [Moles/Vol] 141 mmol/L 136-145 [facility] Work Phone: WBC (Bld) [#/Vol] 4.8 10*3/uL 4.4-11.0 [facility] Work Phone: Blood erythrocytes count (nu mber/volume)on 08-16-2021 RBC (Bld) [#/Vol] 4.45 10*6/uL 4.6-6.2 [facility] Work Phone: Blood hemoglobin measurement (mass/volume)on 08-16-2021 Hemoglobin (Bld) [Mass/Vol] 13.0 g/dL 13.0-16.5 [facility] Work Phone: Blood lymphocytes/100 leukoc yteson 08-16-2021 Lymphocytes/100 WBC (Bld) 23.6 % 19-41 [facility] Work Phone: Blood monocytes/100 leukocyt eson 08-16-2021 Monocytes/100 WBC (Bld) 12.6 % 0-10 [facility] Work Phone: Blood platelet mean volumeon 08-16-2021 Platelet mean volume (Bld) [Entitic vol] 10.8 fL 6.2-12.0 [facility] Work Phone: Determination of erythrocyte mean corpuscular volume (MCV)on 08-16-2021 MCV (RBC) [Entitic vol] 101.6 fL 80-94 [facility] Work Phone: Hematocrit Auto (Bld) [Volum e fraction]on 08-16-2021 Hematocrit (Bld) [Volume fraction] 45.2 % 40-54 [facility] Work Phone: Laboratory - Chemistry and C hemistry - challengeon 08-16-2021 CO2 [Moles/Vol] 38.0 mmol/L 21.0-32.0 [facility] Work Phone: Urea nitrogen/Creatinine [Mass ratio] 9.7 mg/mg 10-20 [facility] Work Phone: Laboratory - Hematology and Cell countson 08-16-2021 Anisocytosis Ql (Bld) 3+ [facility] Work Phone: Comment on above: DIMPORPHIC POPULATIO N Basophils/100 WBC (Unsp spec) 1.5 % 0-1 [facility] Work Phone: Immature granulocytes/100 WBC (Bld) 0.200 % 0.0-0.9 [facility] Work Phone: Comment on above: IG% - Immature Granu locytes (promyelocytes, myelocytes and metamyelocytes) > 1% indicates that a LEFT SHIFT is Present. MCH (RBC) [Entitic mass] 29.2 pg 27.0-32.0 [facility] Work Phone: [phone] Neutrophils/100 WBC (Bld) 59.2 % 47-70 [facility] Work Phone: [phone] Nucleated RBC/100 WBC (Bld) [Ratio] 0 % 0-5 [facility] Work Phone: MCHC Auto (RBC) [Mass/Vol]on 08-16-2021 MCHC (RBC) [Mass/Vol] 28.8 g/dL 32-36 [facility] Work Phone: No Panel Informationon 08-16 Estimated GFR (MDRD) Amer 54 mL/min >60 [facility] Work Phone: Comment on above: GFR Calc Estimated GFR (MDRD) Non-Af Amer 45 mL/min >60 [facility] Work Phone: Comment on above: Non- GFR Calc RDW Coefficient of Variation Not Reportable [facility] Work Phone: RDW Standard Deviation Not Reportable [facility] Work Phone: Platelets bldon 08-16-2021 Platelets (Bld) [#/Vol] 256 10*3/uL 150-450 [facility] Work Phone: Serum or plasma albumin mar urement (mass/volume)on 08-16-2021 Albumin [Mass/Vol] 3.5 g/dL 3.2-5.0 [facility] Work Phone: Serum or plasma calcium mar urement (mass/volume)on 08-16-2021 Calcium [Mass/Vol] 9.4 mg/dL 8.5-10.1 [facility] Work Phone: Serum or plasma creatinine m easurement (mass/volume)on 08-16-2021 Creatinine [Mass/Vol] 1.65 mg/dL 0.70-1.30 [facility] Work Phone: Comment on above: The validity of the calculated GFR & GFRAA in patients over 70 years has not been determined. Clinical correlation is essential. Serum or plasma urea nitroge n measurement (mass/volume)on 08-16-2021 Urea nitrogen [Mass/Vol] 16 mg/dL 7- [facility] Work Phone: CNOVon 05-22-2020 CNOV Office Visit (AGVASACC) HILARIA WOO ([id number]) 1960 M Date Time Provider Department 05/22/20 10:00 AM UMANG GILLIAM (DAIRY [employer] SALES CONSULTANT, BULL WHEEL WORKER) DON During your visit today, we recorded the following information about you: Pulse Respiration Blood pressure Weight 66/minute 18/minute 120/66 127.9 kg Height 1.816 m Umang Gilliam APRN.CNP, CNP 05/22/2020 10:30 AM Signed No intervention. Please call us if anything changes! Thank you for coming to see me today! ABDIEL Sheth APRN.CNP, ANGE 05/22/2020 11:08 AM Signed [facility] Cardiothoracic Surgery Chief Complaint: Surgical follow-up, disruption of sternum post CABG HPI: Hilaria Woo is a 60 year old male with PMHx significant for coronary artery disease s/p CABG x4 (WOOD to LAD, ISAK to OM, SVG to diagonal, SVG to PDA, EVH) performed 12/26/[address] Mack. He is post-operative hospital recovery was unremarkable and he was discharged home on postop day 5. Then on 01/04/2020 Mr. Woo developed shortness of breath and presented to [facility] and was admitted for respiratory distress, atrial fibrillation, and CHF. He was discharged home on home to on 01/07/2020 but then returned on 01/09/2020 for respiratory distress requiring intubation, then discharged home again on 01/18/2020. He was seen by this office with a virtual visit on January 19, 2020. But then was subsequently readmitted to [facility] on 01/23/2020 and discharged home on 02/01/2020. During those multiple hospitalizations, he was closely followed by Dr. Rondon, his warp scouring vat tender. He was seen in this office on February 16, 2020 follow-up. In that visit he was noted to have a completely disrupted sternum. CT of his chest confirmed sternal disruption. Since those multiple readmissions this spring, Mr. Woo has continued to recover quite well. He has begun and now nearly completed cardiac rehab, he has returned to work. While he is aware of the sternal movement in his chest, it does not inhibit his ability to function. Today, Hilaria Woo, reports he is doing quite well, has returned to work, and has nearly completed cardiac rehab. ROS: Pain: He does note some pain that he indicates on bilateral anterior chest wall, likely associated with bilateral URIEL harvest. He states the pain is mild and resolves with Tylenol. CV: (Dizzy, palpitations, BP, Edema) denies any cardiovascular complaints SOB/HICKS: He does note some shortness of breath with activity, however he is not short of breath at rest Fever: Denies any fevers Incisions: Closed Weight: Weight has been stable Diet: Normal appetite Bowel: Regular bowels Activity: Active C/O: No complaints Cardiology F/U: Has followed up with Dr. Rondon Cardiac Rehab: Has nearly completed cardiac rehab Subjective: Current Outpatient Medications Medication Sig - amiodarone (PACERONE) 200 mg tablet 1 tablet daily - furosemide (LASIX) 40 mg tablet Take 2 tablets by mouth twice daily. - insulin glargine (LANTUS SOLOSTAR, BASAGLAR KWIKPEN) 100 unit/mL (3 mL) Inject 12 Units subcutaneously daily at bedtime. - metoprolol tartrate, short acting, (LOPRESSOR) 100 mg tablet Take 100 mg by mouth twice daily. - aspirin 81 mg chewable tablet Take 1 tablet by mouth once daily. - apixaban (ELIQUIS) 5 mg tab(s) Take 5 mg by mouth twice daily. - pantoprazole DR (PROTONIX) 40 mg tablet Take 40 mg by mouth twice daily. - losartan (COZAAR) 50 mg tablet Take 1 tablet by mouth once daily. - acetaminophen (TYLENOL) 500 mg tablet Take 2 tablets by mouth every 6 hours. - ACCU-CHEK GUIDE test strip USE TO CHECK BLOOD SUGAR UP TO 3 TIMES A DAY - ACCU-CHEK FASTCLIX LANCET DRUM lancets USE TO CHECK BLOOD SUGAR UP TO 3 TIMES A DAY - atorvastatin (LIPITOR) 80 mg tablet Take 80 mg by mouth once daily. - Levocetirizine 5 mg tablet Take 5 mg by mouth once daily. - metFORMIN (GLUCOPHAGE) 1,000 mg tablet Take 1,000 mg by mouth twice daily with meals. - potassium chloride 20 mEq TbER Take 1 tablet by mouth once daily. - OXYGEN, HOME THERAPY, 2 L/min by Nasal Cannula route continuous. 3 liters with BiPAP at night. No current facility-administered medications for this visit. Patient has no known allergies. PAST MEDICAL HISTORY Diagnosis Date - Abnormal cardiac enzyme level - CAD (coronary artery disease) - Cardiomegaly - Chest pain - CHF (congestive heart failure) (HCC) - Diabetes mellitus, type II (HCC) - DVT (deep venous thrombosis) (HCC) - HTN (hypertension) - Hyperlipidemia - Obesity - SOB (shortness of breath) PAST SURGICAL HISTORY Procedure Laterality Date - CABG (4) VEIN GRAFTS AND ARTERIAL GRAFT(S) 12/26/2019 - CARDIAC CATH 11/18/2019 [facility] - ECHO 11/17/2019 [facility] FAMILY HISTORY Problem Relation Age of Onset - Hypertension Mother - Heart disease Father - Hypertension Father Social History Tobacco Use - Smoking status: Never Smoker - Smokeless tobacco: Never Used Substance Use Topics - Alcohol use: Not Currently - Drug use: Never ROS Objective: Physical Examination: Vitals:BP 120/66 Pulse 66 Resp 18 Ht 5' 11.5 (1.82m) Wt 282 lb (127.9kg) SpO2 98% BMI 38.79 kg/(m2). BP w/Orthostatic Vitals Date and Time Orthostatic BP Orthostatic Pulse BP Pulse BP Position BP Site BP Cuff Size 05/22/2057 -- -- 120/66 66 Sitting Left Arm -- Peak Flow Date and Time PF Resp 05/22/20956 -- 18 Last 2 Encounter Wt Readings: Date: Wt: 05/22/2020 282 lb (127.9 kg) 02/17/2020 283 lb (128.4 kg) Physical Exam Constitutional: He is oriented to person, place, and time and well-developed, well-nourished, and in no distress. HENT: Head: Normocephalic. Eyes: Pupils are equal, round, and reactive to light. Cardiovascular: Normal rate, regular rhythm, S1 normal and S2 normal. No murmur heard. Pulmonary/Chest: Effort normal and breath sounds normal. Abdominal: Soft. Normal appearance and bowel sounds are normal. Musculoskeletal: Normal range of motion. General: No edema. Neurological: He is alert and oriented to person, place, and time. Gait normal. Skin: Skin is warm and intact. Midsternal incision clean dry, well approximated, no redness or drainage - Healed and closed Sternum is Complete disruption is noted Ct Sites Healed SVG site clean dry, no redness, drainage, or hematoma Psychiatric: Mood and affect normal. Assessment and Plan: ASSESSMENT/PLAN: 1. S/P CABG x 4 - ICD9: V45.81, ICD10: Z95.1 (primary diagnosis) - Continue medical therapy with ASA, Eliquis, metoprolol and atorvastatin 2. Adverse effect of treatment, subsequent encounter - ICD9: V58.89, ICD10: T88.9XXD -Completely disrupted sternum with closed wound. -No surgical intervention required -Follow up in this office as needed for pain, soft tissue dehiscence, loss of ability to function Umang Gilliam, DAIRY FE[employer] SALES CONSULTANT.BULL WHEEL WORKER In summary, Mr Woo has complete sternal disruption following coronary artery bypass grafting performed in December 2019. This does not seem to inhibit his ability to exercise with cardiac rehab or perform his job. He reports he is otherwise doing quite well and is not interested in pursuing any intervention at this time. He was advised to notify us should he develop pain, soft tissue dehiscence, or loss of ability to function with the sternal disruption. He should follow-up in this office as needed he is otherwise released to follow-up with his warp scouring vat tender and primary care physician. I spent 30 minutes in the visit, with more than 50% of the total [id number] time of the visit in counseling / coordination of care. Electronically signed by Umang Gilliam APRN.CNP on May 22, 2020, 11:07 AM (Time) Referring Provider: SELF [200] Allergies As of Date: 05/22/2020 (No Known Allergies) Date Reviewed: 05/22/2020 Reviewed by: Kyung Oreilly LPN - Fully Assessed Reason for Visit: Coronary Artery Disease [530] Cmt: Hilaria is here for 3 month follow up for sternal disruption Primary Visit Diagnosis:S/P CABG x 4 [Z95.1] Other Visit Diagnosis:Adverse effect of treatment, subsequent encounter [T88.9XXD] Comment:Disrupted sternum after CABG Prescriptions as of 05/22/2020 Sig: AMIODARONE 200 MG TABLET 1 tablet daily FUROSEMIDE 40 MG TABLET Take 2 tablets by mouth twice* INSULIN GLARGINE (U-100) 100 * Inject 12 Units subcutaneousl* METOPROLOL TARTRATE 100 MG TA* Take 100 mg by mouth twice da* ASPIRIN 81 MG CHEWABLE TABLET Take 1 tablet by mouth once d* APIXABAN 5 MG TABLET Take 5 mg by mouth twice tariq* PANTOPRAZOLE 40 MG TABLET,DEL* Take 40 mg by mouth twice miguel* LOSARTAN 50 MG TABLET Take 1 tablet by mouth once d* ACETAMINOPHEN 500 MG TABLET Take 2 tablets by mouth every* ACCU-CHEK GUIDE TEST STRIPS USE TO CHECK BLOOD SUGAR UP T* ACCU-CHEK FASTCLIX LANCET DRUM USE TO CHECK BLOOD SUGAR UP T* ATORVASTATIN 80 MG TABLET Take 80 mg by mouth once tariq* LEVOCETIRIZINE 5 MG TABLET Take 5 mg by mouth once daily* METFORMIN 1,000 MG TABLET Take 1,000 mg by mouth twice * POTASSIUM CHLORIDE ER 20 MEQ * Take 1 tablet by mouth once d* OXYGEN (HOME THERAPY) 2 L/min by Nasal Cannula rout* X TESTOSTERONE CYPIONATE 200 MG* Inject intramuscularly. Every* Problem List As Of Date 05/22/2020 Noted Resolved Obesity, Class III, BMI >= 40 [E66.01] 12/26/2019 CAD (coronary artery disease) [I25.10] 12/26/2019 S/P CABG x 4 [Z95.1] 12/27/2019 Other instructions from your clinician: No intervention. Please call us if anything changes! Thank you for coming to see me today! Umang Gilliam APRN.ANGE Disposition: Return if symptoms worsen or fail to improve. Follow-up and Disposition History Recorded Letter Text Encounter Status:Closed by UMANG GILLIAM CNP on 05/22/20 Normal [facility] PROGRESSon 05-22-2020 PROGRESS HNO ID: [id number] Author: Umang (Sanjuanita Cassidy) ANGE Gilliam Service: ? Author Type: Nurse Practitioner Type: Progress Notes Filed: 05/22/2020 11:08 AM Note Text: [facility] Cardiothoracic Surgery Chief Complaint: Surgical follow-up, disruption of sternum post CABG HPI: Hilaria Woo is a 60 year old male with PMHx significant for coronary artery disease s/p CABG x4 (WOOD to LAD, ISAK to OM, SVG to diagonal, SVG to PDA, EVH) performed 12/26/[address] Mack. He is post-operative hospital recovery was unremarkable and he was discharged home on postop day 5. Then on 01/04/2020 Mr. Woo developed shortness of breath and presented to [facility] and was admitted for respiratory distress, atrial fibrillation, and CHF. He was discharged home on home to on 01/07/2020 but then returned on 01/09/2020 for respiratory distress requiring intubation, then discharged home again on 01/18/2020. He was seen by this office with a virtual visit on January 19, 2020. But then was subsequently readmitted to [facility] on 01/23/2020 and discharged home on 02/01/2020. During those multiple hospitalizations, he was closely followed by Dr. Rondon, his warp scouring vat tender. He was seen in this office on February 16, 2020 follow-up. In that visit he was noted to have a completely disrupted sternum. CT of his chest confirmed sternal disruption. Since those multiple readmissions this spring, Mr. Woo has continued to recover quite well. He has begun and now nearly completed cardiac rehab, he has returned to work. While he is aware of the sternal movement in his chest, it does not inhibit his ability to function. Today, Hilaria Woo, reports he is doing quite well, has returned to work, and has nearly completed cardiac rehab. ROS: Pain: He does note some pain that he indicates on bilateral anterior chest wall, likely associated with bilateral URIEL harvest. He states the pain is mild and resolves with Tylenol. CV: (Dizzy, palpitations, BP, Edema) denies any cardiovascular complaints SOB/HICKS: He does note some shortness of breath with activity, however he is not short of breath at rest Fever: Denies any fevers Incisions: Closed Weight: Weight has been stable Diet: Normal appetite Bowel: Regular bowels Activity: Active C/O: No complaints Cardiology F/U: Has followed up with Dr. Rondon Cardiac Rehab: Has nearly completed cardiac rehab Subjective: Current Outpatient Medications Medication Sig - amiodarone (PACERONE) 200 mg tablet 1 tablet daily - furosemide (LASIX) 40 mg tablet Take 2 tablets by mouth twice daily. - insulin glargine (LANTUS SOLOSTAR, BASAGLAR KWIKPEN) 100 unit/mL (3 mL) Inject 12 Units subcutaneously daily at bedtime. - metoprolol tartrate, short acting, (LOPRESSOR) 100 mg tablet Take 100 mg by mouth twice daily. - aspirin 81 mg chewable tablet Take 1 tablet by mouth once daily. - apixaban (ELIQUIS) 5 mg tab(s) Take 5 mg by mouth twice daily. - pantoprazole DR (PROTONIX) 40 mg tablet Take 40 mg by mouth twice daily. - losartan (COZAAR) 50 mg tablet Take 1 tablet by mouth once daily. - acetaminophen (TYLENOL) 500 mg tablet Take 2 tablets by mouth every 6 hours. - ACCU-CHEK GUIDE test strip USE TO CHECK BLOOD SUGAR UP TO 3 TIMES A DAY - ACCU-CHEK FASTCLIX LANCET DRUM lancets USE TO CHECK BLOOD SUGAR UP TO 3 TIMES A DAY - atorvastatin (LIPITOR) 80 mg tablet Take 80 mg by mouth once daily. - Levocetirizine 5 mg tablet Take 5 mg by mouth once daily. - metFORMIN (GLUCOPHAGE) 1,000 mg tablet Take 1,000 mg by mouth twice daily with meals. - potassium chloride 20 mEq TbER Take 1 tablet by mouth once daily. - OXYGEN, HOME THERAPY, 2 L/min by Nasal Cannula route continuous. 3 liters with BiPAP at night. No current facility-administered medications for this visit. Patient has no known allergies. PAST MEDICAL HISTORY Diagnosis Date - Abnormal cardiac enzyme level - CAD (coronary artery disease) - Cardiomegaly - Chest pain - CHF (congestive heart failure) (HCC) - Diabetes mellitus, type II (HCC) - DVT (deep venous thrombosis) (HCC) - HTN (hypertension) - Hyperlipidemia - Obesity - SOB (shortness of breath) PAST SURGICAL HISTORY Procedure Laterality Date - CABG (4) VEIN GRAFTS AND ARTERIAL GRAFT(S) 12/26/2019 - CARDIAC CATH 11/18/2019 [facility] - ECHO 11/17/2019 [facility] FAMILY HISTORY Problem Relation Age of Onset - Hypertension Mother - Heart disease Father - Hypertension Father Social History Tobacco Use - Smoking status: Never Smoker - Smokeless tobacco: Never Used Substance Use Topics - Alcohol use: Not Currently - Drug use: Never ROS Objective: Physical Examination: Vitals:BP 120/66 Pulse 66 Resp 18 Ht 5' 11.5 (1.82m) Wt 282 lb (127.9kg) SpO2 98% BMI 38.79 kg/(m2). BP w/Orthostatic Vitals Date and Time Orthostatic BP Orthostatic Pulse BP Pulse BP Position BP Site BP Cuff Size 05/22/20 0957 -- -- 120/66 66 Sitting Left Arm -- Peak Flow Date and Time PF Resp 05/22/20 0957 -- 18 Last 2 Encounter Wt Readings: Date: Wt: 05/22/2020 282 lb (127.9 kg) 02/17/2020 283 lb (128.4 kg) Physical Exam Constitutional: He is oriented to person, place, and time and well-developed, well-nourished, and in no distress. HENT: Head: Normocephalic. Eyes: Pupils are equal, round, and reactive to light. Cardiovascular: Normal rate, regular rhythm, S1 normal and S2 normal. No murmur heard. Pulmonary/Chest: Effort normal and breath sounds normal. Abdominal: Soft. Normal appearance and bowel sounds are normal. Musculoskeletal: Normal range of motion. General: No edema. Neurological: He is alert and oriented to person, place, and time. Gait normal. Skin: Skin is warm and intact. Midsternal incision clean dry, well approximated, no redness or drainage - Healed and closed Sternum is Complete disruption is noted Ct Sites Healed SVG site clean dry, no redness, drainage, or hematoma Psychiatric: Mood and affect normal. Assessment and Plan: ASSESSMENT/PLAN: 1. S/P CABG x 4 - ICD9: V45.81, ICD10: Z95.1 (primary diagnosis) - Continue medical therapy with ASA, Eliquis, metoprolol and atorvastatin 2. Adverse effect of treatment, subsequent encounter - ICD9: V58.89, ICD10: T88.9XXD -Completely disrupted sternum with closed wound. -No surgical intervention required -Follow up in this office as needed for pain, soft tissue dehiscence, loss of ability to function Umang Gilliam APRN.ANGE In summary, Mr Woo has complete sternal disruption following coronary artery bypass grafting performed in December 2019. This does not seem to inhibit his ability to exercise with cardiac rehab or perform his job. He reports he is otherwise doing quite well and is not interested in pursuing any intervention at this time. He was advised to notify us should he develop pain, soft tissue dehiscence, or loss of ability to function with the sternal disruption. He should follow-up in this office as needed he is otherwise released to follow-up with his warp scouring vat tender and primary care physician. I spent 30 minutes in the visit, with more than 50% of the total [id number] time of the visit in counseling / coordination of care. Electronically signed by Umang Gilliam APRN.CNP on May 22, 2020, 11:07 AM (Time) [facility] [place] 02-21-2020 JESSICA Telephone ([employer] Financial[employer]AL) HILARIA WOO ([id number]) 1960 M Date Time Provider Department 02/21/20 BISHOP MACK During your visit today, we recorded the following information about you: Refugio Roca 02/21/2020 10:20 AM Signed [facility] cardiac rehab phone [phone] fax [phone]. Cardiac rehab order and records faxed Allergies As of Date: 02/21/2020 (No Known Allergies) Date Reviewed: 02/17/2020 Reviewed by: Nora (Rn) Most RN - Fully Assessed Reason for Visit: Cardiac Rehab [3551] Cmt: referral to [facility] Prescriptions as of 02/21/2020 Sig: AMIODARONE 200 MG TABLET 1 tablet daily FUROSEMIDE 40 MG TABLET Take 2 tablets by mouth twice* INSULIN GLARGINE (U-100) 100 * Inject 12 Units subcutaneousl* METOPROLOL TARTRATE 100 MG TA* Take 100 mg by mouth twice da* POTASSIUM CHLORIDE ER 20 MEQ * Take 1 tablet by mouth once d* OXYGEN (HOME THERAPY) 2 L/min by Nasal Cannula rout* ASPIRIN 81 MG CHEWABLE TABLET Take 1 tablet by mouth once d* APIXABAN 5 MG TABLET Take 5 mg by mouth twice tariq* PANTOPRAZOLE 40 MG TABLET,DEL* Take 40 mg by mouth twice miguel* LOSARTAN 50 MG TABLET Take 1 tablet by mouth once d* ACETAMINOPHEN 500 MG TABLET Take 2 tablets by mouth every* PEN NEEDLE, DIABETIC 31 GAUGE* 5 Each five times daily. ACCU-CHEK GUIDE TEST STRIPS USE TO CHECK BLOOD SUGAR UP T* ACCU-CHEK FASTCLIX LANCET DRUM USE TO CHECK BLOOD SUGAR UP T* ATORVASTATIN 80 MG TABLET Take 80 mg by mouth once tariq* LEVOCETIRIZINE 5 MG TABLET Take 5 mg by mouth once daily* METFORMIN 1,000 MG TABLET Take 1,000 mg by mouth twice * X TESTOSTERONE CYPIONATE 200 MG* Inject intramuscularly. Every* Problem List As Of Date 02/21/2020 Noted Resolved Obesity, Class III, BMI >= 40 [E66.01] 12/26/2019 CAD (coronary artery disease) [I25.10] 12/26/2019 S/P CABG x 4 [Z95.1] 12/27/2019 Encounter Status:Closed by REFUGIO ROCA on 02/21/20 [facility] OBSOLETEon 02-21-2020 OBSOLETE Refill (AGVASACC) HILARIA WOO ([id number]) 1960 M Date Time Provider Department 02/21/20 UMANG GILLIAM (ANGE GANN) [facility] During your visit today, we recorded the following information about you: Allergies As of Date: 02/21/2020 (No Known Allergies) Date Reviewed: 02/17/2020 Reviewed by: Nora (Rn) KATTY Cesar - Fully Assessed Reason for Visit: Refill Request [94] Prescriptions as of 02/21/2020 Sig: AMIODARONE 200 MG TABLET 1 tablet daily FUROSEMIDE 40 MG TABLET Take 2 tablets by mouth twice* INSULIN GLARGINE (U-100) 100 * Inject 12 Units subcutaneousl* METOPROLOL TARTRATE 100 MG TA* Take 100 mg by mouth twice da* POTASSIUM CHLORIDE ER 20 MEQ * Take 1 tablet by mouth once d* OXYGEN (HOME THERAPY) 2 L/min by Nasal Cannula rout* ASPIRIN 81 MG CHEWABLE TABLET Take 1 tablet by mouth once d* APIXABAN 5 MG TABLET Take 5 mg by mouth twice tariq* PANTOPRAZOLE 40 MG TABLET,DEL* Take 40 mg by mouth twice miguel* LOSARTAN 50 MG TABLET Take 1 tablet by mouth once d* ACETAMINOPHEN 500 MG TABLET Take 2 tablets by mouth every* PEN NEEDLE, DIABETIC 31 GAUGE* 5 Each five times daily. ACCU-CHEK GUIDE TEST STRIPS USE TO CHECK BLOOD SUGAR UP T* ACCU-CHEK FASTCLIX LANCET DRUM USE TO CHECK BLOOD SUGAR UP T* ATORVASTATIN 80 MG TABLET Take 80 mg by mouth once tariq* LEVOCETIRIZINE 5 MG TABLET Take 5 mg by mouth once daily* METFORMIN 1,000 MG TABLET Take 1,000 mg by mouth twice * X TESTOSTERONE CYPIONATE 200 MG* Inject intramuscularly. Every* Problem List As Of Date 02/21/2020 Noted Resolved Obesity, Class III, BMI >= 40 [E66.01] 12/26/2019 CAD (coronary artery disease) [I25.10] 12/26/2019 S/P CABG x 4 [Z95.1] 12/27/2019 Encounter Status:Closed by UMANG GILLIAM CNP on 02/21/20 [facility] CNOVon 02-16-2020 CNOV Office Visit (AGVASACC) HILARIA WOO ([id number]) 1960 M Date Time Provider Department 02/16/20 3:00 PM UMANG GILLIAM (DAIRY FEED SALES CONSULTANT, ANGE) DON During your visit today, we recorded the following information about you: Pulse Respiration Blood pressure Weight 75/minute 18/minute 118/64 128.4 kg Height 1.803 m Umang Gilliam APRN.ANGE CASSIDY 02/16/2020 4:45 PM Signed Chief Complaint: HPI: HISTORY OF PRESENT ILLNESS Hilaria Woo is a 59 year old male with a past medical history significant for coronary artery disease and obesity, seen for status post CABG x4 (WOOD to LAD, ISAK to OM, SVG to diagonal, SVG to PDA, EVH) done 12/26/[address] Mack. His postoperative hospital recovery was unremarkable and follow the usual pattern he was discharged on 12/31/2019 (postop day 5). And on 01/03, Mr. Woo complained of breathing difficulties and was advised to go to [facility] ER. At that time he was admitted for respiratory distress, atrial fibrillation, and CHF. He was later discharged home with home O2 on the second. But then again returned on January 08 for respiratory distress and required intubation at that admission because of the respiratory distress and need for intubation is not immediately clear. He was subsequently discharged home, again on home O2 on 01/18/2020. He was seen by this office with a virtual visit on January 18. And was subsequently readmitted to [facility] on 01/23/2020. And subsequently discharged home again on 02/01/2020. During these admissions he was evaluated by his primary warp scouring vat tender Dr. Rondon at [facility]. Today, Hilaria Woo, reports he is significantly improved over his last discharge from [facility]. He reports approximately 50 pound weight loss, primarily water. He continues to wear oxygen /, nocturnal BiPAP with O2 bleed. He is increasing his activity at home walking as much as he can. He did walk into the office today. ROS: Pain: He denies any pain CV: (Dizzy, palpitations, BP, Edema) denies any cardiovascular symptoms, reports lower extremity edema significantly improved SOB/HICKS: Does report shortness of breath with exertion, denies SOB at rest Fever: Denies fever Incisions: Incision incisions well-healed, scabbed chest tube sites Weight: 45 pound weight loss since discharge on 12/30 Diet: Good appetite Bowel: Normal bowels Activity: Increasing activity at home C/O: No complaints today Cardiology F/U: Was seen by Dr. Rondon While in the hospital, has yet to have outpatient follow-up Cardiac Rehab: Cardiac rehab ordered today, referral to be sent to [facility], may begin cardiac rehab when ready, cautioned against weightbearing activities for the time being. Subjective: Current Outpatient Medications Medication Sig - metoprolol tartrate, short acting, (LOPRESSOR) 100 mg tablet Take 100 mg by mouth twice daily. - potassium chloride 20 mEq TbER Take 1 tablet by mouth once daily. - OXYGEN, HOME THERAPY, 2 L/min by Nasal Cannula route continuous. 3 liters with BiPAP at night. - amiodarone (PACERONE) 200 mg tablet Take 1 tablet by mouth twice daily for 7 days, THEN 1 tablet once daily for 14 days. (Patient taking differently: 1 tablet daily) - aspirin 81 mg chewable tablet Take 1 tablet by mouth once daily. - apixaban (ELIQUIS) 5 mg tab(s) Take 5 mg by mouth twice daily. - pantoprazole DR (PROTONIX) 40 mg tablet Take 40 mg by mouth twice daily. - insulin glargine (LANTUS SOLOSTAR, BASAGLAR KWIKPEN) 100 unit/mL (3 mL) Inject 10 Units subcutaneously daily at bedtime. (Patient taking differently: Inject 12 Units subcutaneously daily at bedtime.) - furosemide (LASIX) 40 mg tablet Take 1 tablet by mouth twice daily. (Patient taking differently: Take 80 mg by mouth twice daily.) - losartan (COZAAR) 50 mg tablet Take 1 tablet by mouth once daily. - acetaminophen (TYLENOL) 500 mg tablet Take 2 tablets by mouth every 6 hours. - Insulin Maxwell, Disposable, (BD ULTRAFINE III MINI PEN) 31 gauge x 3/16 5 Each five times daily. - ACCU-CHEK GUIDE test strip USE TO CHECK BLOOD SUGAR UP TO 3 TIMES A DAY - ACCU-CHEK FASTCLIX LANCET DRUM lancets USE TO CHECK BLOOD SUGAR UP TO 3 TIMES A DAY - atorvastatin (LIPITOR) 80 mg tablet Take 80 mg by mouth once daily. - Levocetirizine 5 mg tablet Take 5 mg by mouth once daily. - metoprolol succinate ER (TOPROL XL) 50 mg 24 hr tablet Take 2 tablets by mouth twice daily. (Patient not taking: Reported on 02/02/2020) - gabapentin (NEURONTIN) 100 mg capsule Take 2 capsules by mouth once daily for 30 days. Do not start before January 01, 2020. - magnesium oxide (MAG-OX) 400 mg (241.3 mg magnesium) tablet Take 1 tablet by mouth once daily. - metFORMIN (GLUCOPHAGE) 1,000 mg tablet Take 1,000 mg by mouth twice daily with meals. No current facility-administered medications for this visit. Patient has no known allergies. PAST MEDICAL HISTORY Diagnosis Date - Abnormal cardiac enzyme level - CAD (coronary artery disease) - Cardiomegaly - Chest pain - CHF (congestive heart failure) (HCC) - Diabetes mellitus, type II (HCC) - DVT (deep venous thrombosis) (HCC) - HTN (hypertension) - Hyperlipidemia - Obesity - SOB (shortness of breath) PAST SURGICAL HISTORY Procedure Laterality Date - CABG (4) VEIN GRAFTS AND ARTERIAL GRAFT(S) 12/26/2019 - CARDIAC CATH 11/18/2019 [facility] - ECHO 11/17/2019 [facility] FAMILY HISTORY Problem Relation Age of Onset - Hypertension Mother - Heart disease Father - Hypertension Father Social History Tobacco Use - Smoking status: Never Smoker - Smokeless tobacco: Never Used Substance Use Topics - Alcohol use: Not Currently - Drug use: Never ROS Objective: One month post- op Chest X-ray is ordered today. Physical Examination: Vitals:BP 118/64 Pulse 75 Resp 18 Ht 5' 11 (1.80m) Wt 283 lb (128.4kg) SpO2 97% BMI 39.49 kg/(m2). BP w/Orthostatic Vitals Date and Time Orthostatic BP Orthostatic Pulse BP Pulse BP Position BP Site BP Cuff Size 02/16/20 1451 -- -- 118/64 75 Sitting Left Arm -- Peak Flow Date and Time PF Resp 02/16/20 1451 -- 18 Last 2 Encounter Wt Readings: Date: Wt: 02/16/2020 283 lb (128.4 kg) 02/14/2020 283 lb (128.4 kg) Physical Exam Constitutional: He is oriented to person, place, and time and well-developed, well-nourished, and in no distress. HENT: Head: Normocephalic. Eyes: Pupils are equal, round, and reactive to light. Cardiovascular: Normal rate, regular rhythm, S1 normal, S2 normal and intact distal pulses. No murmur heard. Pulmonary/Chest: Effort normal and breath sounds normal. Abdominal: Soft. Normal appearance and bowel sounds are normal. Musculoskeletal: Normal range of motion. General: No edema. Neurological: He is alert and oriented to person, place, and time. Gait normal. Skin: Skin is warm and intact. Midsternal incision clean dry, well approximated, no redness or drainage Sternum is is disrupted noted sternal separation with inspiration, palpated disruption with cough, denies any movement or separation or pain in his chest Ct Sites scabbed and healing SVG site clean dry, no redness, drainage, or hematoma Psychiatric: Mood and affect normal. Assessment and Plan: ASSESSMENT/PLAN: 1. S/P CABG x 4 - ICD9: V45.81, ICD10: Z95.1 (primary diagnosis) -Medical therapy with aspirin 81 mg, atorvastatin 80 mg, metoprolol 100 mg twice daily - CT CHEST WO IVCON --to evaluate sternal disruption - CARDIAC REHAB II OUT ([place], [place]) --referral to be sent to [facility] - EXERCISE STRESS ECG (WITHOUT IMAGING) - EXERCISE STRESS ECG (WITHOUT IMAGING) 2. Adverse effect of treatment, initial encounter - ICD9: 998.9, ICD10: T88.9XXA -Completely disrupted sternum - CT CHEST WO IVCON -Recommended to remain nonweightbearing, however he may drive +-Recommended sternal binding to support the sternum -Return to this office in 3 months for evaluation 3. Paroxysmal atrial fibrillation -RRR in office today -Continue amiodarone 200 mg daily 4. HFP EF -EF preoperatively 65% -Prolonged CHF with respiratory failure requiring intubation x2 at [facility] -Heart failure core measures including: Losartan 50 mg daily, metoprolol 100 mg twice daily, diuresis with Lasix 80 mg twice daily Umang Gilliam APRN.CNP In summary, Patient is doing fair overall after his CABG surgery, with no major complaints. Patient should start cardiac rehab from this point on. he should follow up with his warp scouring vat tender and PCP as scheduled. He should be seen in this office in approximately 3 months for sternal disruption. Thanks. Electronically signed by Umang Gilliam APRN.CNP on February 16, 2020, 3:01 PM Umang Gilliam APRN.CNP, CNP 02/16/2020 4:43 PM Addendum - You may drive! - Please begin cardiac rehab. They will arrange both the pre- and post- cardiac rehab stress tests. Please call them: [facility] Cardiac Rehabilitation Hours: Thursday, Thursday, Thursday: 8:00 am to 4:30 pm Thursday and : 6:00 am to 2:00 pm The cardiac rehabilitation department is located on the first floor of the hospital, near the [facility]. For more information, call . - Weight bearing restriction remains: No lifting more than 10 lbs. You may begin to gradually increase the amount of weight bearing. Cardiac rehab will help with this. - Please see your warp scouring vat tender regularly. They will take over medication management. - Please feel free to call us if you have any post-operative concerns. CT scan of the chest is scheduled for February 23 at [facility] Return to this office in 3 months for evaluation of sternal disruption Thank you for coming to see me today!! Umang Gilliam APRN.CNP Referring Provider: SELF [200] Allergies As of Date: 02/16/2020 (No Known Allergies) Date Reviewed: 02/16/2020 Reviewed by: Rebecca Israel) Yoshi - Fully Assessed Reason for Visit: Post Op [174] Cmt: s/p CABG 12/26/19 Primary Visit Diagnosis:S/P CABG x 4 [Z95.1] Other Visit Diagnoses:Adverse effect of treatment, initial encounter [T88.9XXA] PAF (paroxysmal atrial fibrillation) ([facility]) [I48.0] Chronic diastolic CHF (congestive heart failure) ([facility]) [I50.32] Order(s):CT CHEST [facility] [[id number]] Order #: [id number] FUTURE CARDIAC REHAB II OUTPT ([place], [place]) [[id number]] Order #: [id number]: 1 EXERCISE STRESS ECG (WITHOUT IMAGING) [[id number]] Order #: [id number]: 1 FUTURE EXERCISE STRESS ECG (WITHOUT IMAGING) [[id number]] Order #: [id number]: 1 FUTURE amiodarone (PACERONE) 200 mg tablet1 tablet dailyDisp: 28 tabletRfl: 0 furosemide (LASIX) 40 mg tabletTake 2 tablets by mouth twice daily.Disp: Rfl: insulin glargine (LANTUS SOLOSTAR, BASAGLAR KWIKPEN) 100 unit/mL (3 mL)Inject 12 Units subcutaneously daily at bedtime.Disp: Rfl: Prescriptions as of 02/16/2020 Sig: AMIODARONE 200 MG TABLET 1 tablet daily FUROSEMIDE 40 MG TABLET Take 2 tablets by mouth twice* INSULIN GLARGINE (U-100) 100 * Inject 12 Units subcutaneousl* METOPROLOL TARTRATE 100 MG TA* Take 100 mg by mouth twice da* POTASSIUM CHLORIDE ER 20 MEQ * Take 1 tablet by mouth once d* OXYGEN (HOME THERAPY) 2 L/min by Nasal Cannula rout* ASPIRIN 81 MG CHEWABLE TABLET Take 1 tablet by mouth once d* APIXABAN 5 MG TABLET Take 5 mg by mouth twice tariq* PANTOPRAZOLE 40 MG TABLET,DEL* Take 40 mg by mouth twice miguel* LOSARTAN 50 MG TABLET Take 1 tablet by mouth once d* ACETAMINOPHEN 500 MG TABLET Take 2 tablets by mouth every* PEN NEEDLE, DIABETIC 31 GAUGE* 5 Each five times daily. ACCU-CHEK GUIDE TEST STRIPS USE TO CHECK BLOOD SUGAR UP T* ACCU-CHEK FASTCLIX LANCET DRUM USE TO CHECK BLOOD SUGAR UP T* ATORVASTATIN 80 MG TABLET Take 80 mg by mouth once tariq* LEVOCETIRIZINE 5 MG TABLET Take 5 mg by mouth once daily* METFORMIN 1,000 MG TABLET Take 1,000 mg by mouth twice * X TESTOSTERONE CYPIONATE 200 MG* Inject intramuscularly. Every* Problem List As Of Date 02/16/2020 Noted Resolved Obesity, Class III, BMI >= 40 [E66.01] 12/26/2019 CAD (coronary artery disease) [I25.10] 12/26/2019 S/P CABG x 4 [Z95.1] 12/27/2019 Other instructions from your clinician: - You may drive! - Please begin cardiac rehab. They will arrange both the pre- and post- cardiac rehab stress tests. Please call them: [facility] Cardiac Rehabilitation Hours: Thursday, Thursday, Thursday: 8:00 am to 4:30 pm Thursday and : 6:00 am to 2:00 pm The cardiac rehabilitation department is located on the first floor of the hospital, near the [facility]. For more information, call . - Weight bearing restriction remains: No lifting more than 10 lbs. You may begin to gradually increase the amount of weight bearing. Cardiac rehab will help with this. - Please see your warp scouring vat tender regularly. They will take over medication management. - Please feel free to call us if you have any post-operative concerns. CT scan of the chest is scheduled for February 23 at [facility] Return to this office in 3 months for evaluation of sternal disruption Thank you for coming to see me today!! Umang Gilliam, SANJUANITA.BULL WHEEL WORKER Prescriptions ordered this encounter Disp Refills Start End AMIODARONE 200 MG TABLET 28 t* 0 02/16/2020 Class: Med Update Si tablet daily FUROSEMIDE 40 MG TABLET 02/16/2020 Class: Med Update Route: ORAL Sig: Take 2 tablets by mouth twice daily. INSULIN GLARGINE (U-100) 100 UNIT/ML* 02/16/2020 03/17/2020 Class: Med Update Route: SUBCUTANEOUS Sig: Inject 12 Units subcutaneously daily at bedtime. Medications Discontinued During This Encounter amiodarone (PACERONE) 200 mg tablet 28 t* 0 01/19/2020 02/16/2020 Route: ORAL Sig: Take 1 tablet by mouth twice daily for 7 days, THEN 1 tablet once daily for 14 days. Patient taking differently: 1 tablet daily Disc: Reason for discontinue is not on file. magnesium oxide (MAG-OX) 400 mg (241* 30 t* 0 01/01/2020 02/16/2020 Route: ORAL Sig: Take 1 tablet by mouth once daily. Disc: Course of therapy completed gabapentin (NEURONTIN) 100 mg capsule 60 c* 0 01/01/2020 02/16/2020 Route: ORAL Sig: Take 2 capsules by mouth once daily for 30 days. Do not start before January 01, 2020. Disc: Course of therapy completed metoprolol succinate ER (TOPROL XL) * 01/19/2020 02/16/2020 Class: Med Update Route: ORAL Sig: Take 2 tablets by mouth twice daily. Patient not taking: Reported on 02/02/2020 Disc: Course of therapy completed furosemide (LASIX) 40 mg tablet 60 t* 1 01/02/2020 02/16/2020 Route: ORAL Sig: Take 1 tablet by mouth twice daily. Patient taking differently: Take 80 mg by mouth twice daily. Disc: Reason for discontinue is not on file. insulin glargine (LANTUS SOLOSTAR, B* 9 Pen 0 01/19/2020 02/16/2020 Route: SUBCUTANEOUS Sig: Inject 10 Units subcutaneously daily at bedtime. Patient taking differently: Inject 12 Units subcutaneously daily at bedtime. Disc: Reason for discontinue is not on file. Disposition: Return in about 3 months (around 05/18/2020) for Wound Check. Follow-up and Disposition History Recorded Letter Text Encounter Status:Closed by UMANG GILLIAM CNP on 02/16/20 [facility] PROGRESSon 02-16-2020 PROGRESS HNO ID: [id number] Author: Umang (Sanjuanita Cassidy) ANGE Gilliam Service: ? Author Type: Nurse Practitioner Type: Progress Notes Filed: 02/16/2020 4:45 PM Note Text: Chief Complaint: HPI: HISTORY OF PRESENT ILLNESS Hilaria Woo is a 59 year old male with a past medical history significant for coronary artery disease and obesity, seen for status post CABG x4 (WOOD to LAD, ISAK to OM, SVG to diagonal, SVG to PDA, EVH) done 12/26/[address] Mack. His postoperative hospital recovery was unremarkable and follow the usual pattern he was discharged on 12/31/2019 (postop day 5). And on 01/03, Mr. Woo complained of breathing difficulties and was advised to go to [facility] ER. At that time he was admitted for respiratory distress, atrial fibrillation, and CHF. He was later discharged home with home O2 on the second. But then again returned on January 08 for respiratory distress and required intubation at that admission because of the respiratory distress and need for intubation is not immediately clear. He was subsequently discharged home, again on home O2 on 01/18/2020. He was seen by this office with a virtual visit on January 18. And was subsequently readmitted to [facility] on 01/23/2020. And subsequently discharged home again on 02/01/2020. During these admissions he was evaluated by his primary warp scouring vat tender Dr. Rondon at [facility]. Today, Hilaria Woo, reports he is significantly improved over his last discharge from [facility]. He reports approximately 50 pound weight loss, primarily water. He continues to wear oxygen /, nocturnal BiPAP with O2 bleed. He is increasing his activity at home walking as much as he can. He did walk into the office today. ROS: Pain: He denies any pain CV: (Dizzy, palpitations, BP, Edema) denies any cardiovascular symptoms, reports lower extremity edema significantly improved SOB/HICKS: Does report shortness of breath with exertion, denies SOB at rest Fever: Denies fever Incisions: Incision incisions well-healed, scabbed chest tube sites Weight: 45 pound weight loss since discharge on 12/30 Diet: Good appetite Bowel: Normal bowels Activity: Increasing activity at home C/O: No complaints today Cardiology F/U: Was seen by Dr. Rondon While in the hospital, has yet to have outpatient follow-up Cardiac Rehab: Cardiac rehab ordered today, referral to be sent to [facility], may begin cardiac rehab when ready, cautioned against weightbearing activities for the time being. Subjective: Current Outpatient Medications Medication Sig - metoprolol tartrate, short acting, (LOPRESSOR) 100 mg tablet Take 100 mg by mouth twice daily. - potassium chloride 20 mEq TbER Take 1 tablet by mouth once daily. - OXYGEN, HOME THERAPY, 2 L/min by Nasal Cannula route continuous. 3 liters with BiPAP at night. - amiodarone (PACERONE) 200 mg tablet Take 1 tablet by mouth twice daily for 7 days, THEN 1 tablet once daily for 14 days. (Patient taking differently: 1 tablet daily) - aspirin 81 mg chewable tablet Take 1 tablet by mouth once daily. - apixaban (ELIQUIS) 5 mg tab(s) Take 5 mg by mouth twice daily. - pantoprazole DR (PROTONIX) 40 mg tablet Take 40 mg by mouth twice daily. - insulin glargine (LANTUS SOLOSTAR, BASAGLAR KWIKPEN) 100 unit/mL (3 mL) Inject 10 Units subcutaneously daily at bedtime. (Patient taking differently: Inject 12 Units subcutaneously daily at bedtime.) - furosemide (LASIX) 40 mg tablet Take 1 tablet by mouth twice daily. (Patient taking differently: Take 80 mg by mouth twice daily.) - losartan (COZAAR) 50 mg tablet Take 1 tablet by mouth once daily. - acetaminophen (TYLENOL) 500 mg tablet Take 2 tablets by mouth every 6 hours. - Insulin Maxwell, Disposable, (BD ULTRAFINE III MINI PEN) 31 gauge x 3/16 5 Each five times daily. - ACCU-CHEK GUIDE test strip USE TO CHECK BLOOD SUGAR UP TO 3 TIMES A DAY - ACCU-CHEK FASTCLIX LANCET DRUM lancets USE TO CHECK BLOOD SUGAR UP TO 3 TIMES A DAY - atorvastatin (LIPITOR) 80 mg tablet Take 80 mg by mouth once daily. - Levocetirizine 5 mg tablet Take 5 mg by mouth once daily. - metoprolol succinate ER (TOPROL XL) 50 mg 24 hr tablet Take 2 tablets by mouth twice daily. (Patient not taking: Reported on 02/02/2020) - gabapentin (NEURONTIN) 100 mg capsule Take 2 capsules by mouth once daily for 30 days. Do not start before January 01, 2020. - magnesium oxide (MAG-OX) 400 mg (241.3 mg magnesium) tablet Take 1 tablet by mouth once daily. - metFORMIN (GLUCOPHAGE) 1,000 mg tablet Take 1,000 mg by mouth twice daily with meals. No current facility-administered medications for this visit. Patient has no known allergies. PAST MEDICAL HISTORY Diagnosis Date - Abnormal cardiac enzyme level - CAD (coronary artery disease) - Cardiomegaly - Chest pain - CHF (congestive heart failure) (HCC) - Diabetes mellitus, type II (HCC) - DVT (deep venous thrombosis) (HCC) - HTN (hypertension) - Hyperlipidemia - Obesity - SOB (shortness of breath) PAST SURGICAL HISTORY Procedure Laterality Date - CABG (4) VEIN GRAFTS AND ARTERIAL GRAFT(S) 12/26/2019 - CARDIAC CATH 11/18/2019 [facility] - ECHO 11/17/2019 [facility] FAMILY HISTORY Problem Relation Age of Onset - Hypertension Mother - Heart disease Father - Hypertension Father Social History Tobacco Use - Smoking status: Never Smoker - Smokeless tobacco: Never Used Substance Use Topics - Alcohol use: Not Currently - Drug use: Never ROS Objective: One month post- op Chest X-ray is ordered today. Physical Examination: Vitals:BP 118/64 Pulse 75 Resp 18 Ht 5' 11 (1.80m) Wt 283 lb (128.4kg) SpO2 97% BMI 39.49 kg/(m2). BP w/Orthostatic Vitals Date and Time Orthostatic BP Orthostatic Pulse BP Pulse BP Position BP Site BP Cuff Size 02/16/20 1451 -- -- 118/64 75 Sitting Left Arm -- Peak Flow Date and Time PF Resp 02/16/20 1451 -- 18 Last 2 Encounter Wt Readings: Date: Wt: 02/16/2020 283 lb (128.4 kg) 02/14/2020 283 lb (128.4 kg) Physical Exam Constitutional: He is oriented to person, place, and time and well-developed, well-nourished, and in no distress. HENT: Head: Normocephalic. Eyes: Pupils are equal, round, and reactive to light. Cardiovascular: Normal rate, regular rhythm, S1 normal, S2 normal and intact distal pulses. No murmur heard. Pulmonary/Chest: Effort normal and breath sounds normal. Abdominal: Soft. Normal appearance and bowel sounds are normal. Musculoskeletal: Normal range of motion. General: No edema. Neurological: He is alert and oriented to person, place, and time. Gait normal. Skin: Skin is warm and intact. Midsternal incision clean dry, well approximated, no redness or drainage Sternum is is disrupted noted sternal separation with inspiration, palpated disruption with cough, denies any movement or separation or pain in his chest Ct Sites scabbed and healing SVG site clean dry, no redness, drainage, or hematoma Psychiatric: Mood and affect normal. Assessment and Plan: ASSESSMENT/PLAN: 1. S/P CABG x 4 - ICD9: V45.81, ICD10: Z95.1 (primary diagnosis) -Medical therapy with aspirin 81 mg, atorvastatin 80 mg, metoprolol 100 mg twice daily - CT CHEST [facility] --to evaluate sternal disruption - CARDIAC REHAB II OUTPT ([place], [place]) --referral to be sent to [facility] - EXERCISE STRESS ECG (WITHOUT IMAGING) - EXERCISE STRESS ECG (WITHOUT IMAGING) 2. Adverse effect of treatment, initial encounter - ICD9: 998.9, ICD10: T88.9XXA -Completely disrupted sternum - CT CHEST WO IVCON -Recommended to remain nonweightbearing, however he may drive +-Recommended sternal binding to support the sternum -Return to this office in 3 months for evaluation 3. Paroxysmal atrial fibrillation -RRR in office today -Continue amiodarone 200 mg daily 4. HFP EF -EF preoperatively 65% -Prolonged CHF with respiratory failure requiring intubation x2 at [facility] -Heart failure core measures including: Losartan 50 mg daily, metoprolol 100 mg twice daily, diuresis with Lasix 80 mg twice daily Umang Gilliam APRN.ANGE In summary, Patient is doing fair overall after his CABG surgery, with no major complaints. Patient should start cardiac rehab from this point on. he should follow up with his warp scouring vat tender and PCP as scheduled. He should be seen in this office in approximately 3 months for sternal disruption. Thanks. Electronically signed by Umang Gilliam APRN.CNP on February 16, 2020, 3:01 PM Normal [facility] OBSOLETEon 02-02-2020 OBSOLETE Refill (AGVASACC) HILARIA WOO ([id number]) 1960 M Date Time Provider Department 02/02/20 UMANG GILLIAM (SANJUANITA, BULL WHEEL WORKER) AGVASACC During your visit today, we recorded the following information about you: Allergies As of Date: 02/02/2020 (No Known Allergies) Date Reviewed: 01/02/2020 Reviewed by: Sangeetha (Rn) KATTY Hernandez - Fully Assessed Reason for Visit: Refill Request [94] Prescriptions as of 02/02/2020 Sig: METOPROLOL TARTRATE 100 MG TA* Take 100 mg by mouth twice da* POTASSIUM CHLORIDE ER 20 MEQ * Take 1 tablet by mouth once d* OXYGEN (HOME THERAPY) 2 L/min by Nasal Cannula rout* AMIODARONE 200 MG TABLET Take 1 tablet by mouth twice * Patient taking differently: 1 tablet daily ASPIRIN 81 MG CHEWABLE TABLET Take 1 tablet by mouth once d* METOPROLOL SUCCINATE ER 50 MG* Take 2 tablets by mouth twice* Patient not taking: Reported on 02/02/2020 APIXABAN 5 MG TABLET Take 5 mg by mouth twice tariq* PANTOPRAZOLE 40 MG TABLET,DEL* Take 40 mg by mouth twice miguel* INSULIN GLARGINE (U-100) 100 * Inject 10 Units subcutaneousl* FUROSEMIDE 40 MG TABLET Take 1 tablet by mouth twice * Patient taking differently: Take 80 mg by mouth twice miguel* GABAPENTIN 100 MG CAPSULE Take 2 capsules by mouth once* LOSARTAN 50 MG TABLET Take 1 tablet by mouth once d* ACETAMINOPHEN 500 MG TABLET Take 2 tablets by mouth every* PEN NEEDLE, DIABETIC 31 GAUGE* 5 Each five times daily. MAGNESIUM OXIDE 400 MG (241.3* Take 1 tablet by mouth once d* ACCU-CHEK GUIDE TEST STRIPS USE TO CHECK BLOOD SUGAR UP T* ACCU-CHEK FASTCLIX LANCET DRUM USE TO CHECK BLOOD SUGAR UP T* ATORVASTATIN 80 MG TABLET Take 80 mg by mouth once tariq* LEVOCETIRIZINE 5 MG TABLET Take 5 mg by mouth once daily* METFORMIN 1,000 MG TABLET Take 1,000 mg by mouth twice * X TESTOSTERONE CYPIONATE 200 MG* Inject intramuscularly. Every* Problem List As Of Date 02/02/2020 Noted Resolved Obesity, Class III, BMI >= 40 [E66.01] 12/26/2019 CAD (coronary artery disease) [I25.10] 12/26/2019 S/P CABG x 4 [Z95.1] 12/27/2019 Encounter Status:Closed by UMANG GILLIAM CNP on 02/02/20 [facility] PROGRESSon 01-19-2020 PROGRESS HNO ID: [id number] Author: Umang (Industrial Waste Inspector Ange) ANGE Gilliam Service: ? Author Type: Nurse Practitioner Type: Progress Notes Filed: 01/19/2020 11:30 AM Note Text: [facility] [place] [facility] Department of Cardiovascular Medicine Virtual Video Visit ESTABLISHED Date: 01/19/2020 Patient: Hilaria Woo : 1960 This is a virtual video visit. It required patient-provider interaction for the medical decision making as documented below. Hilaria Woo has consented to this video encounter. HPI: Hilaria Woo is a 59 year old male with PMHx of CAD and obesity, seen for s/p CABG x4 (wood-lad; isak-om; svg-diag; svg-pda; evh) done 12/26/2019 by Ifeanyi. His post op hospital recovery was unremarkable and followed the usual pattern. He was discahrged on 12/31/2019 (POD 5). Then on 01/03, MR Woo complained of breathing difficulties and was advised to go to [facility] ER and he was admitted for respiratory distress, atrial fibrillation and CHF, and was discharged on home O2 on 01/06. But he returned on 01/08 for respiratory distress and required intubation. The cause of the respiratory distress and need for intubation is not immediately clear. PAST HISTORY REVIEWED: PAST MEDICAL HISTORY Diagnosis Date - Abnormal cardiac enzyme level - CAD (coronary artery disease) - Cardiomegaly - Chest pain - CHF (congestive heart failure) (HCC) - Diabetes mellitus, type II (HCC) - DVT (deep venous thrombosis) ([facility]) - HTN (hypertension) - Hyperlipidemia - Obesity - SOB (shortness of breath) PAST SURGICAL HISTORY Procedure Laterality Date - CABG (4) VEIN GRAFTS AND ARTERIAL GRAFT(S) 12/26/2019 - CARDIAC CATH 11/18/2019 [facility] - ECHO 11/17/2019 [facility] FAMILY HISTORY Problem Relation Age of Onset - Hypertension Mother - Heart disease Father - Hypertension Father Social History Tobacco Use - Smoking status: Never Smoker - Smokeless tobacco: Never Used Substance Use Topics - Alcohol use: Not Currently - Drug use: Never Current Outpatient Medications Medication Sig - furosemide (LASIX) 40 mg tablet Take 1 tablet by mouth twice daily. - aspirin 81 mg chewable tablet Take 2 tablets by mouth once daily. - insulin glargine (LANTUS SOLOSTAR, BASAGLAR KWIKPEN) 100 unit/mL (3 mL) Inject 45 Units subcutaneously twice daily before meals. - gabapentin (NEURONTIN) 100 mg capsule Take 2 capsules by mouth once daily for 30 days. Do not start before January 01, 2020. - losartan (COZAAR) 50 mg tablet Take 1 tablet by mouth once daily. - acetaminophen (TYLENOL) 500 mg tablet Take 2 tablets by mouth every 6 hours. - bisacodyl EC (DULCOLAX) 5 mg EC tablet Take 2 tablets by mouth daily at bedtime. - guaiFENesin (MUCINEX) 600 mg 12 hr tablet Take 1 tablet by mouth every 12 hours. - insulin lispro (HUMALOG KWIKPEN) 100 unit/mL Inject 22 Units subcutaneously w MEALS. - Insulin Maxwell, Disposable, (BD ULTRAFINE III MINI PEN) 31 gauge x 3/16 5 Each five times daily. - lidocaine (SALONPAS) 4 % patch Apply 1 Patch as directed once daily. Cut patch in half and apply to either side of the sternal incision. Remove after 12 hours. Leave off for 12 hours, then re-apply as needed. - magnesium oxide (MAG-OX) 400 mg (241.3 mg magnesium) tablet Take 1 tablet by mouth once daily. - metoprolol tartrate, short acting, (LOPRESSOR) 50 mg tablet Take 1 tablet by mouth every 8 hours. - polyethylene glycol 3350 (MIRALAX, GLYCOLAX) 17 gram packet Take 1 Packet by mouth once daily. - senna-docusate (SENNA-S) 8.6-50 mg per tablet Take 1 tablet by mouth twice daily. - ACCU-CHEK GUIDE test strip USE TO CHECK BLOOD SUGAR UP TO 3 TIMES A DAY - ACCU-CHEK FASTCLIX LANCET DRUM lancets USE TO CHECK BLOOD SUGAR UP TO 3 TIMES A DAY - IPRATROPIUM BROMIDE INHALATION Inhale 1 Surprise as instructed once daily. - fluticasone-emollient no.65 0.05 % ktot Apply 1 Surprise to affected area twice daily. - acarbose (PRECOSE) 100 mg tablet Take 100 mg by mouth three times daily with meals. - atorvastatin (LIPITOR) 80 mg tablet Take 80 mg by mouth once daily. - Levocetirizine 5 mg tablet Take 5 mg by mouth once daily. - metFORMIN (GLUCOPHAGE) 1,000 mg tablet Take 1,000 mg by mouth twice daily with meals. - temazepam (RESTORIL) 15 mg Take 15 mg by mouth daily at bedtime. - testosterone cypionate (DEPO-TESTOSTERONE) 200 mg/mL injection Inject intramuscularly. Every 2 months No current facility-administered medications for this visit. ALLERGIES No Known Allergies REVIEW OF SYSTEMS: Today, Hilaria Woo, reports: He had some intestinal bleeding while hospitalized and treated with PRBC, and started on protonix Pain: Denies CV: (Dizzy, palpitations, BP, Edema) Leg swelling is up, on lasix, BP is Pulse ox is 97%, HR is continuous afib. SOB/HICKS: SOB at rest on home O2, Requires sleep study 01/25 Fever: Denies Incisions: Healing well Weight: Stable Diet: poor appetite Bowel: regular Activity: Increasing to start home PT C/O: Insomnia Cardiology F/U: See Dr Rondon tomorrow Cardiac Rehab: May begin when ready at [facility] PHYSICAL EXAMINATION: VIDEO EXAM: (if completed, performed via video enabled technology) GENERAL: alert and appropriate, in no distress, well-hydrated, well nourished and happy, smiling, interactive SKIN: no rash noted RESPIRATORY: breathing non-labored, no grunting/flaring/retra ctions and Requiring O2 NEUROLOGIC: no obvious deficit Incisions with skin glue flaking off, chest tubes scabbed and healing ASSESSMENT: Mr. Woo is a 59 year old male status post CABG ?4 with a complicated postdischarge recovery. He has had respiratory distress, requiring home O2, atrial fibrillation, currently rate controlled A. fib on amiodarone and metoprolol and Eliquis, recent GI bleeding, status post PRBC ?3 noW treated with pantoprazole, and continuing on the Eliquis. PLAN: ASSESSMENT/PLAN: 1. S/P CABG x 4 - ICD9: V45.81, ICD10: Z95.1 - Continue medical therapy with aspirin 81 mg, metoprolol 50 mg daily, atorvastatin 80 mg, Eliquis 5 mg twice a day - Order placed for home PT and OT - To return for VV in 3-4 weeks Umang Gilliam APRN.ANGE I spent (Est Level 4) 20-34 minutes in total time involved in the care of this patient. Umang Gilliam APRN.ANGE January 19, 2020 8:39 AM Normal [facility] CNPOlya 01-13-2020 JESSICA Telephone (AGVASACC) HILARIA WOO ([id number]) 1960 M Date Time Provider Department 01/13/20 CORTEZ NAGEL (SANJUANITA, ANGE) AGVASACC During your visit today, we recorded the following information about you: Cortez Nagel APRN.ANGE CASSIDY 01/13/2020 10:45 AM Signed Patient's called back and informed me that Mr. Woo is currently still hospitalized in [facility] for CHFand respiratory failure. There is some plans in place to remove fluid in his lungs, and maybe starting on IV lasix and Cpap for sleep. He is no longer intubated and now on Oxygen. Emotion supported provided and will reschedule patient to have follow up with CTS next week instead. agreed. Cortez Nagel APRN.CNP Allergies As of Date: 01/13/2020 (No Known Allergies) Date Reviewed: 01/02/2020 Reviewed by: Sangeetha (Rn) KATTY Hernandez - Fully Assessed Reason for Visit: Appointment Rescheduled [1024] Prescriptions as of 01/13/2020 Sig: FUROSEMIDE 40 MG TABLET Take 1 tablet by mouth twice * ASPIRIN 81 MG CHEWABLE TABLET Take 2 tablets by mouth once * INSULIN GLARGINE (U-100) 100 * Inject 45 Units subcutaneousl* GABAPENTIN 100 MG CAPSULE Take 2 capsules by mouth once* LOSARTAN 50 MG TABLET Take 1 tablet by mouth once d* ACETAMINOPHEN 500 MG TABLET Take 2 tablets by mouth every* BISACODYL 5 MG TABLET,DELAYED* Take 2 tablets by mouth daily* GUAIFENESIN ER 600 MG TABLET,* Take 1 tablet by mouth every * INSULIN LISPRO (U-100) 100 UN* Inject 22 Units subcutaneousl* PEN NEEDLE, DIABETIC 31 GAUGE* 5 Each five times daily. LIDOCAINE 4 % TOPICAL PATCH Apply 1 Patch as directed onc* MAGNESIUM OXIDE 400 MG (241.3* Take 1 tablet by mouth once d* METOPROLOL TARTRATE 50 MG TAB* Take 1 tablet by mouth every * POLYETHYLENE GLYCOL 3350 17 G* Take 1 Packet by mouth once d* SENNOSIDES 8.6 MG-DOCUSATE SO* Take 1 tablet by mouth twice * ACCU-CHEK GUIDE STRIPS USE TO CHECK BLOOD SUGAR UP T* ACCU-CHEK FASTCLIX LANCET DRUM USE TO CHECK BLOOD SUGAR UP T* IPRATROPIUM BROMIDE INHALATION Inhale 1 Surprise as instructed * FLUTICASONE 0.05 % LOTION-EMO* Apply 1 Surprise to affected are* ACARBOSE 100 MG TABLET Take 100 mg by mouth three ti* ATORVASTATIN 80 MG TABLET Take 80 mg by mouth once tariq* LEVOCETIRIZINE 5 MG TABLET Take 5 mg by mouth once daily* METFORMIN 1,000 MG TABLET Take 1,000 mg by mouth twice * TEMAZEPAM 15 MG CAPSULE Take 15 mg by mouth daily at * TESTOSTERONE CYPIONATE 200 MG* Inject intramuscularly. Every* Problem List As Of Date 01/13/2020 Noted Resolved Obesity, Class III, BMI >= 40 [E66.01] 12/26/2019 CAD (coronary artery disease) [I25.10] 12/26/2019 S/P CABG x 4 [Z95.1] 12/27/2019 Encounter Status:Closed by CORTEZ NAGEL CNP on 01/13/20 [facility] CNPN Telephone (Cylex) HILARIA WOO ([id number]) 1960 M Date Time Provider Department 01/13/20 [facility] MACK [facility] During your visit today, we recorded the following information about you: Criss Chavira 01/13/2020 11:00 AM Signed LM about moving appointment to next 01/19/20 @ 10 with Umang Gilliam CNP for a VV follow up. If it doesn't work just let us know and we can move it around. Allergies As of Date: 01/13/2020 (No Known Allergies) Date Reviewed: 01/02/2020 Reviewed by: Sangeetha (Rn) KATTY Hernandez - Fully Assessed Reason for Visit: Appointment Rescheduled [1024] Cmt: lm about rs appointment Prescriptions as of 01/13/2020 Sig: FUROSEMIDE 40 MG TABLET Take 1 tablet by mouth twice * ASPIRIN 81 MG CHEWABLE TABLET Take 2 tablets by mouth once * INSULIN GLARGINE (U-100) 100 * Inject 45 Units subcutaneousl* GABAPENTIN 100 MG CAPSULE Take 2 capsules by mouth once* LOSARTAN 50 MG TABLET Take 1 tablet by mouth once d* ACETAMINOPHEN 500 MG TABLET Take 2 tablets by mouth every* BISACODYL 5 MG TABLET,DELAYED* Take 2 tablets by mouth daily* GUAIFENESIN ER 600 MG TABLET,* Take 1 tablet by mouth every * INSULIN LISPRO (U-100) 100 UN* Inject 22 Units subcutaneousl* PEN NEEDLE, DIABETIC 31 GAUGE* 5 Each five times daily. LIDOCAINE 4 % TOPICAL PATCH Apply 1 Patch as directed onc* MAGNESIUM OXIDE 400 MG (241.3* Take 1 tablet by mouth once d* METOPROLOL TARTRATE 50 MG TAB* Take 1 tablet by mouth every * POLYETHYLENE GLYCOL 3350 17 G* Take 1 Packet by mouth once d* SENNOSIDES 8.6 MG-DOCUSATE SO* Take 1 tablet by mouth twice * ACCU-CHEK GUIDE STRIPS USE TO CHECK BLOOD SUGAR UP T* ACCU-CHEK FASTCLIX LANCET DRUM USE TO CHECK BLOOD SUGAR UP T* IPRATROPIUM BROMIDE INHALATION Inhale 1 Surprise as instructed * FLUTICASONE 0.05 % LOTION-EMO* Apply 1 Surprise to affected are* ACARBOSE 100 MG TABLET Take 100 mg by mouth three ti* ATORVASTATIN 80 MG TABLET Take 80 mg by mouth once tariq* LEVOCETIRIZINE 5 MG TABLET Take 5 mg by mouth once daily* METFORMIN 1,000 MG TABLET Take 1,000 mg by mouth twice * TEMAZEPAM 15 MG CAPSULE Take 15 mg by mouth daily at * TESTOSTERONE CYPIONATE 200 MG* Inject intramuscularly. Every* Problem List As Of Date 01/13/2020 Noted Resolved Obesity, Class III, BMI >= 40 [E66.01] 12/26/2019 CAD (coronary artery disease) [I25.10] 12/26/2019 S/P CABG x 4 [Z95.1] 12/27/2019 Encounter Status:Closed by [facility] ([id number]) 1960 M Date Time Provider Department 01/13/20 CORTEZ NAGEL ([employer] SALES CONSULTANT, ANGE) AGVASACC During your visit today, we recorded the following information about you: Cortez Nagel APRN.CNP, CNP 01/13/2020 10:03 AM Signed Call made to both patient's house phone as well as his 's listed contact and [facility] for call back. Cortez Nagel APRN.CNP Allergies As of Date: 01/13/2020 (No Known Allergies) Date Reviewed: 01/02/2020 Reviewed by: Sangeetha (Rn) KATTY Hernandez - Fully Assessed Reason for Visit: Surgical Followup [104] Prescriptions as of 01/13/2020 Sig: FUROSEMIDE 40 MG TABLET Take 1 tablet by mouth twice * ASPIRIN 81 MG CHEWABLE TABLET Take 2 tablets by mouth once * INSULIN GLARGINE (U-100) 100 * Inject 45 Units subcutaneousl* GABAPENTIN 100 MG CAPSULE Take 2 capsules by mouth once* LOSARTAN 50 MG TABLET Take 1 tablet by mouth once d* ACETAMINOPHEN 500 MG TABLET Take 2 tablets by mouth every* BISACODYL 5 MG TABLET,DELAYED* Take 2 tablets by mouth daily* GUAIFENESIN ER 600 MG TABLET,* Take 1 tablet by mouth every * INSULIN LISPRO (U-100) 100 UN* Inject 22 Units subcutaneousl* PEN NEEDLE, DIABETIC 31 GAUGE* 5 Each five times daily. LIDOCAINE 4 % TOPICAL PATCH Apply 1 Patch as directed onc* MAGNESIUM OXIDE 400 MG (241.3* Take 1 tablet by mouth once d* METOPROLOL TARTRATE 50 MG TAB* Take 1 tablet by mouth every * POLYETHYLENE GLYCOL 3350 17 G* Take 1 Packet by mouth once d* SENNOSIDES 8.6 MG-DOCUSATE SO* Take 1 tablet by mouth twice * ACCU-CHEK GUIDE STRIPS USE TO CHECK BLOOD SUGAR UP T* ACCU-CHEK FASTCLIX LANCET DRUM USE TO CHECK BLOOD SUGAR UP T* IPRATROPIUM BROMIDE INHALATION Inhale 1 Surprise as instructed * FLUTICASONE 0.05 % LOTION-EMO* Apply 1 Surprise to affected are* ACARBOSE 100 MG TABLET Take 100 mg by mouth three ti* ATORVASTATIN 80 MG TABLET Take 80 mg by mouth once tariq* LEVOCETIRIZINE 5 MG TABLET Take 5 mg by mouth once daily* METFORMIN 1,000 MG TABLET Take 1,000 mg by mouth twice * TEMAZEPAM 15 MG CAPSULE Take 15 mg by mouth daily at * TESTOSTERONE CYPIONATE 200 MG* Inject intramuscularly. Every* Problem List As Of Date 01/13/2020 Noted Resolved Obesity, Class III, BMI >= 40 [E66.01] 12/26/2019 CAD (coronary artery disease) [I25.10] 12/26/2019 S/P CABG x 4 [Z95.1] 12/27/2019 Encounter Status:Closed by CORTEZ NAGEL CNP on 01/13/20 Normal [facility] CNPOlya 01-10-2020 JESSICA Telephone (AKPRAD) LILLIEHILARIA Malissa ([id number]) 1960 M Date Time Provider Department 01/10/20 UMANG GILLIAM (SANJUANITA, ANGE) [facility] During your visit today, we recorded the following information about you: Umang Gilliam APRN.CNP, CNP 01/10/2020 2:21 PM Signed LMTCB for an update on Mr Woo. Umang Gilliam APRN.CNP, CNP 01/11/2020 12:06 PM Signed Call made to Mrs Woo. Kiet was admitted to [facility] 01/03 to 01/06 (home with home O2) then returned to [facility] on 01/08 all for respiratory distress, intubated 01/08 and now extubated today, covid negative, echo normal and CT chest normal. He noted that he had an episode of irregular heart rhythm and treated with medications for that. The cause of the respiratory distress is not clear. He has a follow-up appointment scheduled with us 01/12. We will keep the appointment should he be home by then, otherwise we will move the appointment. Umang Gilliam APRN.CNP Allergies As of Date: 01/10/2020 (No Known Allergies) Date Reviewed: 01/02/2020 Reviewed by: Sangeetha JeffersRn) KATTY Hernandez - Fully Assessed Reason for Visit: Patient Update [1234] Cmt: Admitted to [facility] 01/04/2020 Reason For Visit History Recorded Prescriptions as of 01/10/2020 Sig: FUROSEMIDE 40 MG TABLET Take 1 tablet by mouth twice * ASPIRIN 81 MG CHEWABLE TABLET Take 2 tablets by mouth once * INSULIN GLARGINE (U-100) 100 * Inject 45 Units subcutaneousl* GABAPENTIN 100 MG CAPSULE Take 2 capsules by mouth once* LOSARTAN 50 MG TABLET Take 1 tablet by mouth once d* ACETAMINOPHEN 500 MG TABLET Take 2 tablets by mouth every* BISACODYL 5 MG TABLET,DELAYED* Take 2 tablets by mouth daily* GUAIFENESIN ER 600 MG TABLET,* Take 1 tablet by mouth every * INSULIN LISPRO (U-100) 100 UN* Inject 22 Units subcutaneousl* PEN NEEDLE, DIABETIC 31 GAUGE* 5 Each five times daily. LIDOCAINE 4 % TOPICAL PATCH Apply 1 Patch as directed onc* MAGNESIUM OXIDE 400 MG (241.3* Take 1 tablet by mouth once d* METOPROLOL TARTRATE 50 MG TAB* Take 1 tablet by mouth every * POLYETHYLENE GLYCOL 3350 17 G* Take 1 Packet by mouth once d* SENNOSIDES 8.6 MG-DOCUSATE SO* Take 1 tablet by mouth twice * ACCU-CHEK GUIDE STRIPS USE TO CHECK BLOOD SUGAR UP T* ACCU-CHEK FASTCLIX LANCET DRUM USE TO CHECK BLOOD SUGAR UP T* IPRATROPIUM BROMIDE INHALATION Inhale 1 Surprise as instructed * FLUTICASONE 0.05 % LOTION-EMO* Apply 1 Surprise to affected are* ACARBOSE 100 MG TABLET Take 100 mg by mouth three ti* ATORVASTATIN 80 MG TABLET Take 80 mg by mouth once tariq* LEVOCETIRIZINE 5 MG TABLET Take 5 mg by mouth once daily* METFORMIN 1,000 MG TABLET Take 1,000 mg by mouth twice * TEMAZEPAM 15 MG CAPSULE Take 15 mg by mouth daily at * TESTOSTERONE CYPIONATE 200 MG* Inject intramuscularly. Every* Problem List As Of Date 01/10/2020 Noted Resolved Obesity, Class III, BMI >= 40 [E66.01] 12/26/2019 CAD (coronary artery disease) [I25.10] 12/26/2019 S/P CABG x 4 [Z95.1] 12/27/2019 Encounter Status:Closed by UMANG GILLIAM CNP on 01/11/20 [facility] 01-05-2020 CNPN Telephone ([employer]) HILARIA WOO ([id number]) 1960 M Date Time Provider Department 01/05/20 BISHOP MACK [facility] During your visit today, we recorded the following information about you: Shahida Anat 01/05/2020 11:43 AM Signed Umang called to advise patient was in the hospital in [place], need to reschedule VV from 01/06/2020. LM advising patient VV rescheduled to 01/13/2020 10am w/ Ashleigh. Left office number if needing to reschedule. Allergies As of Date: 01/05/2020 (No Known Allergies) Date Reviewed: 01/02/2020 Reviewed by: Sangeetha (Rn) KATTY Hernandez - Fully Assessed Reason for Visit: Appointment Rescheduled [1024] Prescriptions as of 01/05/2020 Sig: FUROSEMIDE 40 MG TABLET Take 1 tablet by mouth twice * ASPIRIN 81 MG CHEWABLE TABLET Take 2 tablets by mouth once * INSULIN GLARGINE (U-100) 100 * Inject 45 Units subcutaneousl* GABAPENTIN 100 MG CAPSULE Take 2 capsules by mouth once* LOSARTAN 50 MG TABLET Take 1 tablet by mouth once d* ACETAMINOPHEN 500 MG TABLET Take 2 tablets by mouth every* BISACODYL 5 MG TABLET,DELAYED* Take 2 tablets by mouth daily* GUAIFENESIN ER 600 MG TABLET,* Take 1 tablet by mouth every * INSULIN LISPRO (U-100) 100 UN* Inject 22 Units subcutaneousl* PEN NEEDLE, DIABETIC 31 GAUGE* 5 Each five times daily. LIDOCAINE 4 % TOPICAL PATCH Apply 1 Patch as directed onc* MAGNESIUM OXIDE 400 MG (241.3* Take 1 tablet by mouth once d* METOPROLOL TARTRATE 50 MG TAB* Take 1 tablet by mouth every * OXYCODONE 5 MG TABLET Take 1 tablet by mouth every * Patient taking differently: Take 1 tablet by mouth every * POLYETHYLENE GLYCOL 3350 17 G* Take 1 Packet by mouth once d* SENNOSIDES 8.6 MG-DOCUSATE SO* Take 1 tablet by mouth twice * ACCU-CHEK GUIDE STRIPS USE TO CHECK BLOOD SUGAR UP T* ACCU-CHEK FASTCLIX LANCET DRUM USE TO CHECK BLOOD SUGAR UP T* IPRATROPIUM BROMIDE INHALATION Inhale 1 Surprise as instructed * FLUTICASONE 0.05 % LOTION-EMO* Apply 1 Surprise to affected are* ACARBOSE 100 MG TABLET Take 100 mg by mouth three ti* ATORVASTATIN 80 MG TABLET Take 80 mg by mouth once tariq* LEVOCETIRIZINE 5 MG TABLET Take 5 mg by mouth once daily* METFORMIN 1,000 MG TABLET Take 1,000 mg by mouth twice * TEMAZEPAM 15 MG CAPSULE Take 15 mg by mouth daily at * TESTOSTERONE CYPIONATE 200 MG* Inject intramuscularly. Every* Problem List As Of Date 01/05/2020 Noted Resolved Obesity, Class III, BMI >= 40 [E66.01] 12/26/2019 CAD (coronary artery disease) [I25.10] 12/26/2019 S/P CABG x 4 [Z95.1] 12/27/2019 Encounter Status:Closed by SHAHIDA DOVE on 01/05/20 [facility] 01-04-2020 JESSICA Tele[address] (AG[address] [employer]) HILARIA WOO ([id number]) 1960 M Date Time Provider Department 01/04/20 UMANG GILLIAM (SANJUANITA, ANGE) [facility] During your visit today, we recorded the following information about you: Umang Gilliam APRN.ANGE CASSIDY 01/04/2020 9:49 AM Signed I called Mrs Woo. Kiet presented to [facility] ER For SOB at the request of his PCP to rule out a blood clot. Kiet is currently at [facility] for evaluation. She will update me with his status. Contact information was provided. She verbalized understanding. Umang Gilliam APRN.[employer] WORK[employer] Allergies As of Date: 01/04/2020 (No Known Allergies) Date Reviewed: 01/02/2020 Reviewed by: Sangeetha (Rn) KATTY Hernandez - Fully Assessed Reason for Visit: Breathing Problem [17] Prescriptions as of 01/04/2020 Sig: FUROSEMIDE 40 MG TABLET Take 1 tablet by mouth twice * ASPIRIN 81 MG CHEWABLE TABLET Take 2 tablets by mouth once * INSULIN GLARGINE (U-100) 100 * Inject 45 Units subcutaneousl* GABAPENTIN 100 MG CAPSULE Take 2 capsules by mouth once* LOSARTAN 50 MG TABLET Take 1 tablet by mouth once d* ACETAMINOPHEN 500 MG TABLET Take 2 tablets by mouth every* BISACODYL 5 MG TABLET,DELAYED* Take 2 tablets by mouth daily* GUAIFENESIN ER 600 MG TABLET,* Take 1 tablet by mouth every * INSULIN LISPRO (U-100) 100 UN* Inject 22 Units subcutaneousl* PEN NEEDLE, DIABETIC 31 GAUGE* 5 Each five times daily. LIDOCAINE 4 % TOPICAL PATCH Apply 1 Patch as directed onc* MAGNESIUM OXIDE 400 MG (241.3* Take 1 tablet by mouth once d* METOPROLOL TARTRATE 50 MG TAB* Take 1 tablet by mouth every * OXYCODONE 5 MG TABLET Take 1 tablet by mouth every * Patient taking differently: Take 1 tablet by mouth every * POLYETHYLENE GLYCOL 3350 17 G* Take 1 Packet by mouth once d* SENNOSIDES 8.6 MG-DOCUSATE SO* Take 1 tablet by mouth twice * ACCU-CHEK GUIDE STRIPS USE TO CHECK BLOOD SUGAR UP T* ACCU-CHEK FASTCLIX LANCET DRUM USE TO CHECK BLOOD SUGAR UP T* IPRATROPIUM BROMIDE INHALATION Inhale 1 Surprise as instructed * FLUTICASONE 0.05 % LOTION-EMO* Apply 1 Surprise to affected are* ACARBOSE 100 MG TABLET Take 100 mg by mouth three ti* ATORVASTATIN 80 MG TABLET Take 80 mg by mouth once tariq* LEVOCETIRIZINE 5 MG TABLET Take 5 mg by mouth once daily* METFORMIN 1,000 MG TABLET Take 1,000 mg by mouth twice * TEMAZEPAM 15 MG CAPSULE Take 15 mg by mouth daily at * TESTOSTERONE CYPIONATE 200 MG* Inject intramuscularly. Every* Problem List As Of Date 01/04/2020 Noted Resolved Obesity, Class III, BMI >= 40 [E66.01] 12/26/2019 CAD (coronary artery disease) [I25.10] 12/26/2019 S/P CABG x 4 [Z95.1] 12/27/2019 Encounter Status:Closed by UMANG GILLIAM CNP on 01/04/20 [facility] 01-02-2020 CNPN Telephone (AGVASACC) HILARIA WOO ([id number]) 1960 M Date Time Provider Department 01/02/20 BISHOP MACK [facility] During your visit today, we recorded the following information about you: Kyung Oreilly LPN 01/02/2020 9:00 AM Signed Hilaria called AND left voice message stating he needs clarification on his furosemide dose AND also he is working with his PCP on issues with his insulin. He can be reached @ [phone]. Kyung Oreilly LPN Allergies As of Date: 01/02/2020 (No Known Allergies) Date Reviewed: 12/30/2019 Reviewed by: Dixie (Rn) KATTY Marie - Fully Assessed Reason for Visit: Medication Question [5958] Order(s):furosemide (LASIX) 40 mg tabletTake 1 tablet by mouth twice daily.Disp: 60 tabletRfl: 1 Prescriptions as of 01/02/2020 Sig: FUROSEMIDE 40 MG TABLET Take 1 tablet by mouth twice * ASPIRIN 81 MG CHEWABLE TABLET Take 2 tablets by mouth once * INSULIN GLARGINE (U-100) 100 * Inject 45 Units subcutaneousl* GABAPENTIN 100 MG CAPSULE Take 2 capsules by mouth once* LOSARTAN 50 MG TABLET Take 1 tablet by mouth once d* ACETAMINOPHEN 500 MG TABLET Take 2 tablets by mouth every* BISACODYL 5 MG TABLET,DELAYED* Take 2 tablets by mouth daily* GUAIFENESIN ER 600 MG TABLET,* Take 1 tablet by mouth every * INSULIN LISPRO (U-100) 100 UN* Inject 22 Units subcutaneousl* PEN NEEDLE, DIABETIC 31 GAUGE* 5 Each five times daily. LIDOCAINE 4 % TOPICAL PATCH Apply 1 Patch as directed onc* MAGNESIUM OXIDE 400 MG (241.3* Take 1 tablet by mouth once d* METOPROLOL TARTRATE 50 MG TAB* Take 1 tablet by mouth every * OXYCODONE 5 MG TABLET Take 1 tablet by mouth every * POLYETHYLENE GLYCOL 3350 17 G* Take 1 Packet by mouth once d* SENNOSIDES 8.6 MG-DOCUSATE SO* Take 1 tablet by mouth twice * ACCU-CHEK GUIDE STRIPS USE TO CHECK BLOOD SUGAR UP T* ACCU-CHEK FASTCLIX LANCET DRUM USE TO CHECK BLOOD SUGAR UP T* IPRATROPIUM BROMIDE INHALATION Inhale 1 Surprise as instructed * FLUTICASONE 0.05 % LOTION-EMO* Apply 1 Surprise to affected are* ACARBOSE 100 MG TABLET Take 100 mg by mouth three ti* ATORVASTATIN 80 MG TABLET Take 80 mg by mouth once tariq* LEVOCETIRIZINE 5 MG TABLET Take 5 mg by mouth once daily* METFORMIN 1,000 MG TABLET Take 1,000 mg by mouth twice * TEMAZEPAM 15 MG CAPSULE Take 15 mg by mouth daily at * TESTOSTERONE CYPIONATE 200 MG* Inject intramuscularly. Every* Problem List As Of Date 01/02/2020 Noted Resolved Obesity, Class III, BMI >= 40 [E66.01] 12/26/2019 CAD (coronary artery disease) [I25.10] 12/26/2019 S/P CABG x 4 [Z95.1] 12/27/2019 Prescriptions ordered this encounter Disp Refills Start End FUROSEMIDE 40 MG TABLET 60 t* 1 01/02/2020 Route: ORAL Sig: Take 1 tablet by mouth twice daily. Medications Discontinued During This Encounter furosemide (LASIX) 40 mg tablet 11/23/2019 01/02/2020 Class: Med Update Route: ORAL Sig: Take 1 tablet by mouth once daily. Disc: Reason for discontinue is not on file. Encounter Status:Closed by UMANG GILLIAM CNP on 01/02/20 [facility] JESSICA Telephone (AGENDPOB) LILLIEHILARIA Leonardo ([id number]) 1960 M Date Time Provider Department 01/02/20 KELLY JOLLY During your visit today, we recorded the following information about you: Gen Garcia MA 01/02/2020 9:09 AM Signed Called to let patient kow I spoke with [facility] and changed insulin to Basaglar and Novolog with the same directions per Dr. Jolly. Patient understands message. Gen Garcia MA Allergies As of Date: 01/02/2020 (No Known Allergies) Date Reviewed: 12/30/2019 Reviewed by: Dixie (Rn) KATTY Marie - Fully Assessed Reason for Visit: Medication Follow-up [270] Cmt: Insuline Coverage Prescriptions as of 01/02/2020 Sig: ASPIRIN 81 MG CHEWABLE TABLET Take 2 tablets by mouth once * INSULIN GLARGINE (U-100) 100 * Inject 45 Units subcutaneousl* GABAPENTIN 100 MG CAPSULE Take 2 capsules by mouth once* LOSARTAN 50 MG TABLET Take 1 tablet by mouth once d* ACETAMINOPHEN 500 MG TABLET Take 2 tablets by mouth every* BISACODYL 5 MG TABLET,DELAYED* Take 2 tablets by mouth daily* GUAIFENESIN ER 600 MG TABLET,* Take 1 tablet by mouth every * INSULIN LISPRO (U-100) 100 UN* Inject 22 Units subcutaneousl* PEN NEEDLE, DIABETIC 31 GAUGE* 5 Each five times daily. LIDOCAINE 4 % TOPICAL PATCH Apply 1 Patch as directed onc* MAGNESIUM OXIDE 400 MG (241.3* Take 1 tablet by mouth once d* METOPROLOL TARTRATE 50 MG TAB* Take 1 tablet by mouth every * OXYCODONE 5 MG TABLET Take 1 tablet by mouth every * POLYETHYLENE GLYCOL 3350 17 G* Take 1 Packet by mouth once d* SENNOSIDES 8.6 MG-DOCUSATE SO* Take 1 tablet by mouth twice * ACCU-CHEK GUIDE STRIPS USE TO CHECK BLOOD SUGAR UP T* ACCU-CHEK FASTCLIX LANCET DRUM USE TO CHECK BLOOD SUGAR UP T* FUROSEMIDE 40 MG TABLET Take 1 tablet by mouth once d* IPRATROPIUM BROMIDE INHALATION Inhale 1 Surprise as instructed * FLUTICASONE 0.05 % LOTION-EMO* Apply 1 Surprise to affected are* ACARBOSE 100 MG TABLET Take 100 mg by mouth three ti* ATORVASTATIN 80 MG TABLET Take 80 mg by mouth once tariq* LEVOCETIRIZINE 5 MG TABLET Take 5 mg by mouth once daily* METFORMIN 1,000 MG TABLET Take 1,000 mg by mouth twice * TEMAZEPAM 15 MG CAPSULE Take 15 mg by mouth daily at * TESTOSTERONE CYPIONATE 200 MG* Inject intramuscularly. Every* Problem List As Of Date 01/02/2020 Noted Resolved Obesity, Class III, BMI >= 40 [E66.01] 12/26/2019 CAD (coronary artery disease) [I25.10] 12/26/2019 S/P CABG x 4 [Z95.1] 12/27/2019 Encounter Status:Closed by GEN GARCIA MA on 01/02/20 [facility] CONSULT PROGon 12-31-2019 CONSULT PROG HNO ID: [id number] Author: Lina Lovelace Service: Endocrinology Author Type: Physician Type: Consult Progress Note Filed: 12/31/2019 11:24 AM Note Text: ENDOCRINOLOGY CONSULT PROGRESS NOTE SERVICE DATE: 12/31/2019 SERVICE TIME: 10:30 AM Subjective INTERVAL HPI: pt followed for diabetes mellitus type 2 uncontrolled; HbA1c 10.5; had CABG on 12/25. Was on iv insulin gtt per CABG protocol; now hyperglycemic on sq insulin ; BS's still elevated but improving. No pain, no SOB, no nausea. D/C plan for today. DIET HEART HEALTHY Recent Labs 12/31/19 0723 12/30/19 2114 12/30/19 1717 12/30/19 0310 12/29/19 0541 GLUC -- -- -- -- 147* -- 189* GLUCOSEMETER 123* 190* 194* < > -- < > -- < > = values in this interval not displayed. Current Facility-Administered Medications Medication Dose Route Frequency - ipratropium-albuterol 3 mL nebulizer solution (DUONEB) 3 mL INHALATION TID - atorvastatin 80 mg tab(s) (LIPITOR) 80 mg ORAL DAILY - lidocaine 4 % 1 Patch (SALONPAS) 1 Patch TRANSDERMAL DAILY And - lidocaine patch - REMOVE OTHER AT BEDTIME And - lidocaine - VERIFY PATCH OTHER q 8 H - magnesium oxide 400 mg tab(s) (MAG-OX) 400 mg ORAL DAILY - gabapentin 200 mg cap(s) (NEURONTIN) 200 mg ORAL DAILY - aspirin 162 mg chewable tab(s) 162 mg ORAL DAILY - acetaminophen 1,000 mg tab(s) (TYLENOL) 1,000 mg ORAL q 6 H - pantoprazole DR 40 mg tab(s) (PROTONIX) 40 mg ORAL DAILY (6 AM) - oxyCODONE IR 5-10 mg tab(s) (ROXICODONE) 5-10 mg ORAL q 3 H PRN - polyethylene glycol 3350 17 g packet (MIRALAX, GLYCOLAX) 17 g ORAL DAILY - senna-docusate 8.6-50 mg 1 tablet (SENNA-S) 1 tablet ORAL BID - dextrose 40 % 15 g 15 g ORAL PRN Or - glucagon 1 mg injection (GLUCAGEN) 1 mg INTRAMUSCULAR PRN Or - dextrose 50% in water 25 mL syringe 12.5 g INTRAVENOUS PRN - insulin lispro pen (rapid acting) (HumaLOG KWIKPEN) SUBCUTANEOUS w MEALS - enoxaparin 40 mg injection (LOVENOX) 40 mg SUBCUTANEOUS q 12 HR - NaCl 0.9% 2-10 mL 2-10 mL INTRAVENOUS q 12 H - melatonin 3 mg tab(s) 3 mg ORAL HS PRN - bisacodyl EC 10 mg tab(s) (DULCOLAX) 10 mg ORAL AT BEDTIME - guaiFENesin 600 mg ER tab(s) (MUCINEX) 600 mg ORAL q 12 H - albuterol 2.5 mg /3 mL (0.083 %) 2.5 mg (PROVENTIL) 2.5 mg INHALATION q 4 H PRN - metFORMIN 1,000 mg tab(s) (GLUCOPHAGE) 1,000 mg ORAL BID w MEALS - furosemide 40 mg tab(s) (LASIX) 40 mg ORAL BID 9a/5p - metoprolol tartrate (short acting) 50 mg tab(s) (LOPRESSOR) 50 mg ORAL q 8 H - insulin lispro 22 Units pen (rapid acting) (HumaLOG KWIKPEN) 22 Units SUBCUTANEOUS w MEALS - insulin glargine 45 Units pen (long acting) (LANTUS SOLOSTAR, BASAGLAR KWIKPEN) 45 Units SUBCUTANEOUS BID 8A/BEDTIME - losartan 50 mg tab(s) (COZAAR) 50 mg ORAL DAILY Objective PHYSICAL EXAM: BP 136/70 Pulse 68 Temp (Src) 98.1 (Oral) Resp 18 Ht 5' 11 (1.80m) Wt 316 lb 4.8 oz (143.5kg) SpO2 98% BMI 44.13 kg/(m2). O2 Therapy: Room Air, Liters: 2(decreased O2 to 1L) General: awake, alert, no distress Skin: skin color, texture, turgor normal, no rashes or lesions. Head: normocephalic, no masses, lesions, tenderness or abnormalities. Eyes: VIOLA Oropharynx: moist mm Neck: thick; no goiter Heart: RRR without murmur, gallop, or rubs. No ectopy Abdomen: soft, non-tender, positive bowel sounds Extremities: no edema, has stockings ? DATA: Diagnostic tests reviewed for today's visit: Most recent labs and imaging results. Assessment/Plan Diabetes mellitus type 2 uncontrolled; with severe complications; HbA1c 10.5; at home on glimepiride, metformin, victoza and lantus 20 units daily; was on iv insulin gtt per CABG protocol, was on 4 units per hour for glycemic control; added prandial humalog;transitioned to sq insulin. Check BS qac plus qhs. Increased Lantus 45 units bid, increase Humalog 22 units qac tid plus correction on 12/29. Increased metformin to 1000 mg bid on 12/29. BS better; watch on current Rx. D/W pt, re good glycemic control to promote healing. Pt will need Humalog Rx for home. No Amaryl/Victoza for home yet. Can resume Victoza in 4 weeks. D/W CTS RN. ? Obesity, Class III, BMI >= 40 POA: Unknown Assessment AND Plan: ? CAD (coronary artery disease) POA: Yes Assessment AND Plan:s/p CABG 12/26/19 ? ? SIGNATURE: Lina Lovelace MD PATIENT NAME: Hilaria Woo DATE: December 31, 2019 TIME: 11:24 AM PAGER: [phone] Normal [facility] Glucose Meteron 12-31-2019 Glucose [Mass/Vol] 166 mg/dL High 70-99 [facility] Comment on above: Result Comment: RN N OTIFIED Performed By: #### U RIN #### [place] [address] PROGRESSon 12-31-2019 PROGRESS HNO ID: [id number] Author: Bishop Mack Service: Cardiac Surgery Author Type: Physician Type: Progress Notes Filed: 12/31/2019 10:40 AM Note Text: CARDIOTHORACIC SURGERY POSTOP PROGRESS NOTE SERVICE DATE: 12/31/2019 SERVICE TIME: 10:31 AM Subjective S/P SURGERY: Procedure(s) (LRB): BYPASS GRAFT ARTERY CORONARY ON-PUMP TWO CORONARY ARTERIAL GRAFTS (N/A) BYPASS GRAFT ARTERY CORONARY ON-PUMP USING VENOUS GRAFT(S) AND ARTERIAL GRAFT(S); TWO VENOUS GRAFTS (N/A) ENDOSCOPIC HARVEST VEIN FOR CORONARY ARTERY BYPASS PROCEDURE (N/A) DATE OF SURGERY: 12/26/2019 POSTOP DAY #5 LOS: 5 INTERVAL EVENTS / PERTINENT ROS: Doing well. Off oxygen. Showered. +BM. Walking halls. Wants to go home. Objective Admission Weight: (!) 149 kg (328 lb 7.8 oz) BP 136/70 Pulse 68 Temp 36.7 ?C (98.1 ?F) (Oral) Resp 18 Ht 180.3 cm (5' 11) Wt (!) 143.5 kg (316 lb 4.8 oz) SpO2 93% BMI 44.11 kg/m? Body surface area is 2.68 meters squared. Min/Max/Average Temperature AND Blood Pressure: Temp (24hrs), Av.7 ?C (98.1 ?F), Min:36.6 ?C (97.9 ?F), Max:36.8 ?C (98.2 ?F) Systolic (24hrs), Av , Min:124 , Max:162 Diastolic (24hrs), Av, Min:59, Max:89 Intake/Output Summary (Last 24 hours) at 12/31/2019 1031 Last data filed at 12/31/2019 0500 Gross per 24 hour Intake 240 ml Output 850 ml Net -610 ml TELEMETRY: normal sinus rhythm PHYSICAL EXAM: On examination, the patient is awake, alert, and is breathing comfortably. Vital signs are: BP 137/77 Pulse 65 Temp 36.7 ?C (98.1 ?F) Resp 20 Ht 180.3 cm (5' 11) Wt 86.4 kg (190 lb 7.6 oz) SpO2 99% BMI 26.57 kg/m2. There is no JVD. Breath sounds are clear bilaterally. The sternal wound is intact and the sternum is stable. The cardiac rhythm is regular. There are no rubs, gallops, or murmurs. The carotid, subclavian, and radial pulses are 2+ and equal bilaterally. The abdomen is soft and non-tender. There are no abdominal masses. There is no hepatojugular reflux. The saphenous vein harvest sites are intact. There is no pretibial edema. There is no clubbing or cyanosis. The neuro exam is grossly non focal. Lines, Drains, and Airways Line Peripheral 12/26/19 0735 Right Antecubital 16 Gauge 5 days Peripheral 12/29/19 1001 Short Left Antecubital 20 Gauge 2 days DATA: Diagnostic tests reviewed for today's visit: Recent Labs 12/30/19 0310 12/29/19 0541 RBC 3.68* 3.59* WBC 9.48* 10.00* HB 10.8* 10.8* HCT 34.1* 32.8* PLT 279 212 NA 135* 132* K 5.1 5.3* CHLOR 96* 97 CO2 27 25 BUN 30* 28* CREAT 1.01 0.96 GLUC 147* 189* CA 8.9 8.6 TPROT 7.0 -- TBILI 0.6 -- ALKPHOS 83 -- ALT 19 -- AST 36 -- ANION 12 10 Assessment/Plan CAD s/p CABG x 4 -wood-lad; isak-om; svg-diag; svg-pda; evh -POD#45 -Continue ASA 162, atorvastatin 80mg,?metoprolol to 50mg BID -Heart healthy diet -Resume home Lasix of 40mg daily; additional 20 IV lasix later today? -Pain control with modified ERAS - Oxycodone 5-10 mg Q3 hours -discharge to home today.? Anticipated Post-op Respiratory Insufficiency -resolve, now on room air ? Hyperglycemia -HbA1c: 10.5 -Endo on consult; appreciate recs? ? Hypertension -Currently normotensive? -Lopressor to 50mg?>> TID -increase Losartan 50 mg for HTN -Home regiment includes amlodipine 10mg and losartan 100mg (consider adding when BB optimized) ? SIGNATURE: Bishop Mack MD PATIENT NAME: Hilaria Woo DATE: December 31, 2019 TIME: 10:31 AM PAGER/CONTACT #: [phone] [facility] ALLIED HEALTHon 12-30-2019 ALLIED HEALTH HNO ID: [id number] Author: Priyanka (Rn) KATTY Osei Service: Diabetes Education Author Type: Registered Nurse Type: Allied Health Filed: 12/30/2019 11:13 AM Note Text: DIABETES EDUCATION PROGRESS NOTE SERVICE DATE: 12/30/2019 SERVICE TIME: 1000 RECOMMENDATIONS: Patient needs to follow-up with primary care physician after discharge. Prescriptions for diabetic supplies - Humalog insulin pen and pen needles. Patient with Hx of diabetes and Basaglar insulin now new to Bolus insulin. Instructed patient on action and timing of insulin.Patient asked about use of sliding scale and this was explained. He has a glucometer at home and is willing to make changes for his health.Patient plans to follow-up with PCP. PATIENT HISTORY/ASSESSMENT: Previously diagnosed: Type 2 Treatment prior to hospitalization: Oral Agent(s): Metformin,Amaryl and Insulin: Basaglar, Victoza Has meter: Frequency of self-blood glucose monitorin times per day. Usual blood glucose results at home: 139. TOPIC(S): Survival Skills: Basic diabetes mellitus disease process Medication therapy: Oral agent(s) - Metformin (Glucophage) Injectables - Insulin lispro (Humalog), Insulin glargine (Lantus) and Victoza Acute complications: Hypoglycemia and Hyperglycemia Blood glucose monitoring: Timing techniques, Logging results Blood glucose targets: Type I/Type II: Pre-meal 70-130 mg/dl, Bedtime glucose 100-140 mg/dl Patient Education/Health Promotion: Complication prevention, Diet, Exercise and Self management and follow up Diabetes Management: Hemaglobin A1C and when to call the doctor EDUCATION: Cognitive ability: Alert and Oriented. Motivation to learn: Interested. Barriers to learning: None Family support: Unable to assess - Family not present Education Type: Individual instruction Written instruction - handouts Verbal instruction Response to education: States/Identifies. Education provided to: Patient. Teachback method used. Time Spent (Minutes): 30 SIGNATURE: Priyanka Osei RN PATIENT NAME: Hilaria Woo DATE: December 30, 2019 TIME: 11:06 AM PAGER: [phone] [facility] CASE MANAGEMon 12-30-2019 CASE MANAGEM HNO ID: [id number] Author: Kamila (Rn) KATTY Shaver Service: Care Management Author Type: Registered Nurse Type: Care Mgt Progress Note Filed: 12/30/2019 12:42 PM Note Text: CARE MANAGEMENT PROGRESS NOTE SERVICE DATE: 12/30/2019 SERVICE TIME: 12:40 PM LOS: 4 days Needs Prior to Discharge: Home Care Order Chart reviewed. Plan to dc home with [facility]. Home care order needed. SIGNATURE: Chanelle Shaver RN PATIENT NAME: Hilaria Woo DATE: December 30, 2019 TIME: 12:40 PM PAGER/CONTACT #: [phone] [facility] CONSULT PROGon 12-30-2019 CONSULT PROG HNO ID: [id number] Author: Kelly Jolly Service: Endocrinology Author Type: Physician Type: Consult Progress Note Filed: 12/30/2019 2:07 PM Note Text: ENDOCRINOLOGY CONSULT PROGRESS NOTE SERVICE DATE: 12/30/2019 SERVICE TIME: 1:00pm Subjective INTERVAL HPI: pt followed for diabetes mellitus type 2 uncontrolled; HbA1c 10.5; On iv insulin gtt per CABG protocol; now hyperglycemic on sq insulin ; BS's still elevated DIET HEART HEALTHY Recent Labs 12/30/19 1146 12/30/19 0755 12/30/19 0310 12/29/19 2206 12/29/19 0541 12/28/19 0456 GLUC -- -- 147* -- -- 189* -- 126* GLUCOSEMETER 239* 172* -- 188* < > -- < > -- < > = values in this interval not displayed. Current Facility-Administered Medications Medication Dose Route Frequency - ipratropium-albuterol 3 mL nebulizer solution (DUONEB) 3 mL INHALATION TID - atorvastatin 80 mg tab(s) (LIPITOR) 80 mg ORAL DAILY - ondansetron (PF) 4 mg injection (ZOFRAN) 4 mg INTRAVENOUS q 6 H PRN - lidocaine 4 % 1 Patch (SALONPAS) 1 Patch TRANSDERMAL DAILY And - lidocaine patch - REMOVE OTHER AT BEDTIME And - lidocaine - VERIFY PATCH OTHER q 8 H - magnesium oxide 400 mg tab(s) (MAG-OX) 400 mg ORAL DAILY - gabapentin 200 mg cap(s) (NEURONTIN) 200 mg ORAL DAILY - aspirin 162 mg chewable tab(s) 162 mg ORAL DAILY - acetaminophen 1,000 mg tab(s) (TYLENOL) 1,000 mg ORAL q 6 H - pantoprazole DR 40 mg tab(s) (PROTONIX) 40 mg ORAL DAILY (6 AM) - oxyCODONE IR 5-10 mg tab(s) (ROXICODONE) 5-10 mg ORAL q 3 H PRN - polyethylene glycol 3350 17 g packet (MIRALAX, GLYCOLAX) 17 g ORAL DAILY - senna-docusate 8.6-50 mg 1 tablet (SENNA-S) 1 tablet ORAL BID - dextrose 40 % 15 g 15 g ORAL PRN Or - glucagon 1 mg injection (GLUCAGEN) 1 mg INTRAMUSCULAR PRN Or - dextrose 50% in water 25 mL syringe 12.5 g INTRAVENOUS PRN - insulin lispro pen (rapid acting) (HumaLOG KWIKPEN) SUBCUTANEOUS w MEALS - enoxaparin 40 mg injection (LOVENOX) 40 mg SUBCUTANEOUS q 12 HR - NaCl 0.9% 2-10 mL 2-10 mL INTRAVENOUS q 12 H - melatonin 3 mg tab(s) 3 mg ORAL HS PRN - insulin lispro 20 Units pen (rapid acting) (HumaLOG KWIKPEN) 20 Units SUBCUTANEOUS w MEALS - insulin glargine 45 Units pen (long acting) (LANTUS SOLOSTAR, BASAGLAR KWIKPEN) 45 Units SUBCUTANEOUS BID 8A/BEDTIME - bisacodyl EC 10 mg tab(s) (DULCOLAX) 10 mg ORAL AT BEDTIME - guaiFENesin 600 mg ER tab(s) (MUCINEX) 600 mg ORAL q 12 H - albuterol 2.5 mg /3 mL (0.083 %) 2.5 mg (PROVENTIL) 2.5 mg INHALATION q 4 H PRN - metFORMIN 1,000 mg tab(s) (GLUCOPHAGE) 1,000 mg ORAL BID w MEALS - furosemide 40 mg tab(s) (LASIX) 40 mg ORAL BID 9a/5p - bisacodyl 10 mg suppository (DULCOLAX) 10 mg RECTAL ONCE - metoprolol tartrate (short acting) 50 mg tab(s) (LOPRESSOR) 50 mg ORAL q 8 H - losartan 12.5 mg tab(s) (COZAAR) 12.5 mg ORAL DAILY Objective PHYSICAL EXAM: BP 140/65 Pulse 76 Temp (Src) 98.2 (Oral) Resp 18 Ht 5' 11 (1.80m) Wt 319 lb 3.2 oz (144.8kg) SpO2 96% BMI 44.54 kg/(m2). O2 Therapy: Nasal Cannula, Liters: 3 General: awake, alert Skin: skin color, texture, turgor normal, no rashes or lesions. Head: normocephalic, no masses, lesions, tenderness or abnormalities. Eyes: VIOLA Oropharynx: moist mm Neck: thick; no goiter Heart: RRR without murmur, gallop, or rubs. No ectopy Abdomen: soft, non-tender, positive bowel sounds Extremities: no edema, no calluses or ulcers present. Peripheral Pulses: posterior tibial and doralis pedis pulses 2+ and symmetrical ? DATA: Diagnostic tests reviewed for today's visit: Most recent labs and imaging results. Assessment/Plan Diabetes mellitus type 2 uncontrolled; with severe complications; HbA1c 10.5; at home on glimepiride, metformin, victoza and lantus 20 units daily; now on iv insulin gtt per CABG protocol this am at 4 units per hour for glycemic control; added prandial humalog;transitioned to sq insulin , increase lantus 45 units bid, increase humalog 22 units qac tid plus correction; check BS qac plus qhs; increase metformin to 1000 mg bid. ? Obesity, Class III, BMI >= 40 POA: Unknown Assessment AND Plan: ? CAD (coronary artery disease) POA: Yes Assessment AND Plan:s/p CABG 12/26/19 ? ? SIGNATURE: Kelly Jolly MD PATIENT NAME: Hilaria Woo DATE: December 30, 2019 TIME: 2:02 PM PAGER: [phone] Normal [facility] Comprehensive Metabolic Pane abdifatah 12-30-2019 Albumin [Mass/Vol] 3.5 g/dL Low 3.9-4.9 [facility] Comment on above: Performed By: #### C MP #### [facility] [address] [place] [address] ALP [Catalytic activity/Vol] 83 U/L Normal 38-113 [facility] Comment on above: Performed By: #### C MP #### [facility] [address] [place], [place] [address] ALT [Catalytic activity/Vol] 19 U/L Normal 10-54 [facility] Comment on above: Performed By: #### C MP #### [facility] [address] [place], [place] [address] Anion gap [Moles/Vol] 12 mmol/L Normal 9-18 [facility] Comment on above: Performed By: #### C MP #### [facility] [address] [place], [place] [address] AST [Catalytic activity/Vol] 36 U/L Normal 14-40 [facility] Comment on above: Performed By: #### C MP #### [facility] [address] [place] [address] Bilirubin [Mass/Vol] 0.6 mg/dL Normal 0.2-1.3 [facility] Comment on above: Performed By: #### C MP #### [facility] [address] [place] [address] Calcium [Mass/Vol] 8.9 mg/dL Normal 8.5-10.2 [facility] Comment on above: Performed By: #### C MP #### [facility] [address] [place] [address] Chloride [Moles/Vol] 96 mmol/L Low 97-105 [facility] Comment on above: Performed By: #### C MP #### [facility] [address] [place] [address] CO2 Blood 27 mmol/L Normal 22-30 [facility] Comment on above: Performed By: #### C MP #### [facility] [address] [place], [place] [address] Creatinine [Mass/Vol] 1.01 mg/dL Normal 0.73-1.22 [facility] Comment on above: Performed By: #### C MP #### [facility] [address] [place], [place] [address] Glucose [Mass/Vol] 147 mg/dL High 74-99 [facility] Comment on above: Result Comment: The [place] Diabetes Association (ADA) provides guidance for cutoff values for fasting glucose and random glucose. The ADA defines fasting as no caloric intake for at least 8 hours.Fasting plasma glucose results between 100 to 125 mg/dL indicate increased risk for diabetes (prediabetes). Fasting plasma glucose results greater than or equal to 126 mg/dL meet the criteria for diagnosis of diabetes. In the absence of unequivocal hyperglycemia, results should be confirmed by repeat testing. In a patient with classic symptoms of hyperglycemia or hyperglycemic crisis, random plasma glucose results greater than or equal to 200 mg/dL meet the criteria for diagnosis of diabetes. Reference: Standards of Medical Care in Diabetes 2016; [place] Diabetes Association. Diabetes Care. 2016;39(Suppl 1). Performed By: #### C MP #### [facility] [address] [place], [place] [address] Potassium [Moles/Vol] 5.1 mmol/L Normal 3.7-5.1 [facility] Comment on above: Performed By: #### C MP #### [address] [address] Protein [Mass/Vol] 7.0 g/dL Normal 6.3-8.0 [facility] Comment on above: Performed By: #### C MP #### [facility] [address] [place], [place] [address] Sodium [Moles/Vol] 135 mmol/L Low 136-144 [facility] Comment on above: Performed By: #### C MP #### [facility] [address] [place], [place] [address] Urea nitrogen [Mass/Vol] 30 mg/dL High 9-24 [facility] Comment on above: Performed By: #### C MP #### [facility] [address] [place], [place] [address] Hemogramon 12-30-2019 Erythrocyte distribution width (RBC) [Ratio] 13.6 % Normal 11.6-14.4 [facility] Comment on above: Performed By: #### C MP #### [facility] [address] [place], [place] [address] Hematocrit (Bld) [Volume fraction] 34.1 % Low 40.1-51.0 [facility] Comment on above: Performed By: #### C MP #### [facility] [address] [place] [address] Hemoglobin (Bld) [Mass/Vol] 10.8 g/dL Low 13.7-17.5 [facility] Comment on above: Performed By: #### C MP #### [facility] [address] [place] [address] MCH (RBC) [Entitic mass] 29.3 pg Normal 25.7-32.2 [facility] Comment on above: Performed By: #### C MP #### [facility] [address] [place] [address] MCHC (RBC) [Mass/Vol] 31.7 % Low 32.3-36.5 [facility] Comment on above: Performed By: #### C MP #### [facility] [address] [place] [address] MCV (RBC) [Entitic vol] 92.7 fL Normal 83.2-95.6 [facility] Comment on above: Performed By: #### C MP #### [facility] [address] [place] [address] Platelet mean volume (Bld) [Entitic vol] 11.0 fL Normal 8.7-12.0 [facility] Comment on above: Performed By: #### C MP #### [facility] [address] [place] [address] Platelets (Bld) [#/Vol] 279 thou/cmm Normal 141-365 [facility] Comment on above: Performed By: #### C MP #### [facility] [address] [place] [address] RBC (Bld) [#/Vol] 3.68 mil/cmm Low 4.63-6.08 [facility] Comment on above: Performed By: #### C MP #### [facility] [address] [place] [address] RDW SD 46.4 fl High 36.1-45.8 [facility] Comment on above: Performed By: #### C MP #### [facility] [address] [place], [place] [address] WBC (Bld) [#/Vol] 9.48 thou/cmm High 4.23-9.07 [facility] Comment on above: Performed By: #### C MP #### [address] [address] MDRD GFRon 12-30-2019 GFR/1.73 sq M predicted among non-blacks MDRD (S/P/Bld) [Vol rate/Area] mL/min/{1.73_m2} Normal >60mL/min/1. 73m2 [facility] Comment on above: Result Comment: If t he patient is , multiply the result by 1.210. Performed By: #### P T #### [facility] [address] [place], [place] [address] PROGRESSon 12-30-2019 PROGRESS HNO ID: [id number] Author: Umang ([employer]rial [employer] Inspector Agne) ANGE Gilliam Service: Cardiac Surgery Author Type: Nurse Practitioner Type: Progress Notes Filed: 12/30/2019 11:48 AM Note Text: CARDIOTHORACIC SURGERY POSTOP PROGRESS NOTE SERVICE DATE: 12/30/2019 SERVICE TIME: 11:36 AM Subjective S/P SURGERY: Procedure(s) (LRB): CABG x 4 (WOOD-LAD, fRIMA-OM1, SVG-diag, SVG-PDA, EVH) DATE OF SURGERY: 12/26/2019 POSTOP DAY #4 LOS: 4 ? HPI: Hilaria Woo is a 59 year old man referred for evaluation of MV CAD and for consideration for MV CABG. He has no previous cardiac or vascular history. He has been developing progressive exertional dyspnea and chest tightness. He was admitted to [facility] last week with dyspnea and found to be in CHF with come pulmonary congestion and lower extremity edema. He responded well to medical therapy including diuresis. Left heart cath showed severe MV CAD including severe lesions in the LAD, ramus, and circumflex branches with an occluded RCA filling via left to right collaterals. Echo shows EF 65%, mild LVH, and mild . Risk factors for CAD include: +FH (brother); HTN; HLD; obesity; DM (poorly controlled). INTERVAL EVENTS / PERTINENT ROS: He was initially scheduled for CABG 12/20/2019, but presented with a fever, and test for Covid19 (negative) and sent home. He returned 12/25 and had CABG x [address] Mack. His post op ICU recovery was complicated by respiratory insufficiency. He was transferred to [facility] on POD 3. Today, he is seen resting in the chair and ambulating in his room. He complains of cough productive of thick sputum, also wants BM, c/o of abdominal distention. Objective Admission Weight: (!) 149 kg (328 lb 7.8 oz) BP 151/87 Pulse 113 Temp 36.9 ?C (98.4 ?F) (Oral) Resp 18 Ht 180.3 cm (5' 11) Wt (!) 144.8 kg (319 lb 3.2 oz) SpO2 96% BMI 44.52 kg/m? Body surface area is 2.69 meters squared. Min/Max/Average Temperature AND Blood Pressure: Temp (24hrs), Av ?C (98.6 ?F), Min:36.7 ?C (98.1 ?F), Max:37.8 ?C (100 ?F) Systolic (24hrs), Av , Min:112 , Max:159 Diastolic (24hrs), Av, Min:50, Max:87 Intake/Output Summary (Last 24 hours) at 12/30/2019 1136 Last data filed at 12/30/2019 0500 Gross per 24 hour Intake 240 ml Output 1525 ml Net -1285 ml TELEMETRY: sinus tachycardia PHYSICAL EXAM: General Appearance: well developed and no distress Skin: Midsternal incision dry AND intact. and SVG incisions dry AND intact. Lungs: clear and respiratory effort: normal Heart: S1, S2 normal Peripheral Vascular/Arteries: pulses intact Abdomen: firm, round and bowel sounds present Extremities: normal exam of the extremities and edema: non-pitting Lines, Drains, and Airways Line Peripheral 12/26/19 0735 Right Antecubital 16 Gauge 4 days Peripheral 12/29/19 1001 Short Left Antecubital 20 Gauge 1 day DATA: Diagnostic tests reviewed for today's visit: Significant Lab Results: As Below Chest X-RAY: . IMPRESSION: Interval removal of central venous catheter. No pneumothorax. Persistent small left pleural effusion with adjacent atelectasis/consolidat ion. Recent Labs 12/30/19 0310 12/29/19 0541 12/28/19 0456 RBC 3.68* 3.59* 3.81* WBC 9.48* 10.00* 12.29* HB 10.8* 10.8* 11.2* HCT 34.1* 32.8* 35.2* PLT 279 212 205 NA 135* 132* 132* K 5.1 5.3* 5.0 CHLOR 96* 97 97 CO2 27 25 26 BUN 30* 28* 27* CREAT 1.01 0.96 1.09 GLUC 147* 189* 126* CA 8.9 8.6 8.6 MG -- -- 2.4* TPROT 7.0 -- -- TBILI 0.6 -- -- ALKPHOS 83 -- -- ALT 19 -- -- AST 36 -- -- ANION 12 10 9 Assessment/Plan CAD s/p CABG x 4 -wood-lad; isak-om; svg-diag; svg-pda; evh -POD#4 -Continue ASA 162, atorvastatin 80mg,?metoprolol to 50mg BID -Heart healthy diet -Resume home Lasix of 40mg daily; additional 20 IV lasix later today -Pain control with modified ERAS - Oxycodone 5-10 mg Q3 hours -Advance bowel regimen to include Dulcolax tabs and suppository for abd distention. -Ambulate as tolerated -Post thorax vest ? Anticipated Post-op Respiratory Insufficiency -Currently 94% on?2LNC; continue to wean -Scheduled duonebs; lasix -Encourage deep breathing, IS, and cough ? Acute post-op blood-loss anemia -HANDH currently?10.8/32.8; no transfusion at this time -Continue to monitor ? Acute Post-op pain -Continue modified ERAS ? Hyperglycemia -HbA1c: 10.5 -Endo on consult; appreciate recs? ? Hypertension -Currently normotensive -Lopressor to 50mg?>> TID -Add Losartan 12.5 mg for HTN -Home regiment includes amlodipine 10mg and losartan 100mg (consider adding when BB optimized) ? ROBERT -Baseline Cr 0.85; .96 today -Adequate urine OP -Continue to monitor ? DVT ppx -Continue lovenox, SCDs, and russel hose ? GI ppx -Continue protonix Cardiac Rehab Educated or reinforced with patient cardiac risk factors, home activity recommendations, BP/pulse monitoring, symptom management, and follow- up appointment scheduling. Patient and/or family verbalizes understanding. ? Resolved -Respiratory acidosis -Hypotension -Leukocytosis ? Dispo: Home with home care when stable off O2 likely 24-48 hours ?Tests/Labs Ordered: 1. BMP SIGNATURE: Umang Gilliam APRN.CNP PATIENT NAME: Hilaria Woo DATE: December 30, 2019 TIME: 11:36 AM PAGER/CONTACT #: [phone] ETX [id number] Normal [facility] PROGRESS HNO ID: [id number] Author: Mirna Olmstead Service: Pulmonary Disease Author Type: Nurse Practitioner Type: Progress Notes Filed: 12/30/2019 9:24 AM Note Text: Attestation signed by Fifi Cisneros at 12/30/2019 4:[address] [facility] STAFF PHYSICIAN NOTE OF PERSONAL INVOLVEMENT IN CARE I have reviewed the progress note obtained and documented by the nurse practitioner and I personally participated in the diggs components. I have discussed the case and management of the patient's care. The following comments revise or confirm relevant diggs components of the note. SUBJECTIVE: - Follow-up acute anticipated postoperative respiratory insufficiency - Follow-up transfer out of CVICU - Patient without acute complaints Objective 12/30/19 1143 12/30/19 1403 12/30/19 1410 12/30/19 1536 BP: 140/65 124/69 129/59 Pulse: 76 106 76 Resp: 18 18 Temp: 36.8 ?C (98.2 ?F) 36.8 ?C (98.2 ?F) TempSrc: Oral Oral SpO2: 96% (!) 84% 93% 94% Weight: Height: On 2 L/m O2 PHYSICAL EXAM: General: Morbidly obese 59yo M. Sitting up in the chair. In pleasant spirits. Affect bright. NAD. BLEACHER LARD: Alert and oriented Eyes: PER Neck: Unremarkable; No adenopathy or JVD Cardiovascular: Regular rhythm. Thoracic vest applied. Respiratory: Clear to auscultation Abdomen: Soft and Nontender Extremities: Edema- No Skin: Abnormalities- No IMPRESSION - Acute anticipated postoperative respiratory insufficiency - S/P CABG ?4 POD #4 - BMI 44 PLAN -S/P CABG as per CVTS team - Wean O2 to keep SPO2 greater than 90% - Encourage ambulation - Pain control Fifi Cisneros MD PULMONARY/CCM PROGRESS NOTE [facility]AG SERVICE DATE: December 30, 2019 SERVICE TIME: 9:13 AM Subjective Had a rough night - chest pain was uncontrolled and had a hard time coughing Was finally able to bring up large mucus plug, greenish/clear, and felt better Continues to complain of right sided pain and midsternal incisional pain Denies shortness of breath, on 3LNC Denies fevers/chills/sweats, nausea/vomiting/diarrh ea Objective CURRENT MEDICATIONS Current Facility-Administered Medications Medication Dose Route Frequency Provider Last Rate Last Dose - NaCl 0.9% 2-10 mL 2-10 mL INTRAVENOUS q 12 H Jonathan Krueger (Pa) 10 mL at 12/29/19 2100 - melatonin 3 mg tab(s) 3 mg ORAL HS PRN Jonathan Krueger (Pa) - insulin lispro 20 Units pen (rapid acting) (HumaLOG KWIKPEN) 20 Units SUBCUTANEOUS w MEALS Kelly Ciltea 20 Units at 12/29/191832 - insulin glargine 45 Units pen (long acting) (LANTUS SOLOSTAR, BASAGLAR KWIKPEN) 45 Units SUBCUTANEOUS BID 8A/BEDTIME Kelly Ciltea 45 Units at 12/29/19 2210 - metFORMIN 500 mg tab(s) (GLUCOPHAGE) 500 mg ORAL BID w MEALS Kelly Ciltea 500 mg at 12/29/191831 - bisacodyl EC 10 mg tab(s) (DULCOLAX) 10 mg ORAL AT BEDTIME Umang Navarro Cnp) ANGE Gilliam 10 mg at 12/29/198 - dextrose 40 % 15 g 15 g ORAL PRN Jonathan (Artie) Or - glucagon 1 mg injection (GLUCAGEN) 1 mg INTRAMUSCULAR PRN Jonathan (Artie) Or - dextrose 50% in water 25 mL syringe 12.5 g INTRAVENOUS PRN Jonathan (Artie) - insulin lispro pen (rapid acting) (HumaLOG KWIKPEN) SUBCUTANEOUS w MEALS Jonathan (Artie) 2 Units at 12/29/19 1833 - enoxaparin 40 mg injection (LOVENOX) 40 mg SUBCUTANEOUS q 12 HR Jonathan (Artie) 40 mg at 12/29/19 2210 - metoprolol tartrate (short acting) 50 mg tab(s) (LOPRESSOR) 50 mg ORAL q 12 H Jonathan (Artie) 50 mg at 12/29/192210 - furosemide 40 mg tab(s) (LASIX) 40 mg ORAL DAILY Jonathan (Artie) 40 mg at 12/29/19 0749 - bisacodyl 10 mg suppository (DULCOLAX) 10 mg RECTAL DAILY PRN Jonathan (Artie) - polyethylene glycol 3350 17 g packet (MIRALAX, GLYCOLAX) 17 g ORAL DAILY Jonathan (Artie) 17 g at 12/29/19 0749 - senna-docusate 8.6-50 mg 1 tablet (SENNA-S) 1 tablet ORAL BID Jonathan (Artie) 1 tablet at 12/29/198 - ipratropium-albuterol 3 mL nebulizer solution (DUONEB) 3 mL INHALATION TID Jonathan (Artie) 3 mL at 12/30/19 0735 - atorvastatin 80 mg tab(s) (LIPITOR) 80 mg ORAL DAILY Jonathan (Artie) 80 mg at 12/29/19 2100 - ondansetron (PF) 4 mg injection (ZOFRAN) 4 mg INTRAVENOUS q 6 H PRN Jonathan (Artie) - lidocaine 4 % 1 Patch (SALONPAS) 1 Patch TRANSDERMAL DAILY Jonathan (Artie) 1 Patch at 12/29/19 0750 And - lidocaine patch - REMOVE OTHER AT BEDTIME Jonathan (Artie) And - lidocaine - VERIFY PATCH OTHER q 8 H Jonathan (Artie) - magnesium oxide 400 mg tab(s) (MAG-OX) 400 mg ORAL DAILY Jonathan Krueger (Pa) 400 mg at 12/29/19 0750 - gabapentin 200 mg cap(s) (NEURONTIN) 200 mg ORAL DAILY Jonathan Krueger (Pa) 200 mg at 12/29/19 0750 - aspirin 162 mg chewable tab(s) 162 mg ORAL DAILY Jonathan Krueger (Pa) 162 mg at 12/29/19 0749 - acetaminophen 1,000 mg tab(s) (TYLENOL) 1,000 mg ORAL q 6 H Jonathan Krueger (Pa) 1,000 mg at 12/30/19 0518 - pantoprazole DR 40 mg tab(s) (PROTONIX) 40 mg ORAL DAILY (6 AM) Jonathan Krueger (Pa) 40 mg at 12/30/19 0519 - oxyCODONE IR 5-10 mg tab(s) (ROXICODONE) 5-10 mg ORAL q 3 H PRN Jonathan Krueger (Pa) 10 mg at 12/30/19 0519 Intake/Output Summary (Last 24 hours) at 12/30/2019 0913 Last data filed at 12/30/2019 0500 Gross per 24 hour Intake 240 ml Output 1525 ml Net -1285 ml NEW LABS/MICRO DATA/RADIOLOGY FILMS MRSA SCREEN - negative COVID19 - negative BMP: Glucose (mg/dL) Date Value 12/30/2019 147 Potassium (mmol/L) Date Value 12/30/2019 5.1 Sodium (mmol/L) Date Value 12/30/2019 135 Chloride (mmol/L) Date Value 12/30/2019 96 CO2 (mmol/L) Date Value 12/30/2019 27 Creatinine (mg/dL) Date Value 12/30/2019 1.01 BUN (mg/dL) Date Value 12/30/2019 30 Anion Gap (mmol/L) Date Value 12/30/2019 12 Calcium (mg/dL) Date Value 12/30/2019 8.9 CBC: HGB (g/dL) Date Value 12/30/2019 10.8 12/29/2019 10.8 12/28/2019 11.2 Hematocrit (%) Date Value 12/30/2019 34.1 12/29/2019 32.8 12/28/2019 35.2 WBC (thou/cmm) Date Value 12/30/2019 9.48 12/29/2019 10.00 12/28/2019 12.29 CXR 12/27/2019 1. ?Status post extubation. 2. ?Low lung volumes with bibasilar atelectasis. CXR 12/28/2019 Probable small left pleural effusion with left basilar atelectasis. ?No Pneumothorax. CXR 12/29/2019 Limited single view chest. Interval removal of left-sided thoracostomy tube without evidence of left-sided pneumothorax. Apparent trace right apical pneumothorax with small pleural effusion. Left basilar atelectasis. Indeterminate left paravertebral linear density requiring correlation with subsequent chest radiographs. Stable moderate prominent cardiac silhouette. CXR 12/30/2019 Interval removal of central venous catheter. No pneumothorax. Persistent small left pleural effusion with adjacent atelectasis/consolidat ion. 12/30/19 0041 12/30/19 0254 12/30/19 0736 12/30/19 0907 BP: 136/72 134/73 151/87 Pulse: 68 71 86 113 Resp: 18 18 18 18 Temp: 37 ?C (98.6 ?F) 36.7 ?C (98.1 ?F) 36.9 ?C (98.4 ?F) TempSrc: Oral Oral Oral SpO2: 97% 97% 95% 96% Weight: (!) 144.8 kg (319 lb 3.2 oz) Height: PHYSICAL EXAM: VITALS: as above, reviewed. On 3LNC GENERAL: AAOx3, pleasant and conversant, obese, sitting up in bedside chair eating his breakfast, NAD RESPIRATORY: CTA with diminished breath sounds in the bases, even/unlabored respirations at rest. No accessory muscle use, no pursed lip breathing, no wheezing, no conversational dyspnea. On 3LNC. CARDIOVASCULAR: Normal S1S2, RRR. 2+ BLE edema. Midsternal incision healing, c/d/I. Post thorax vest in place. GI: Abdomen soft, nondistended, nontender, bowel sounds present EXTREMITIES: No clubbing or cyanosis. MAEx4. LLE graft sites c/d/i, RUSSEL hose in place ASSESSMENT AND PLAN: 1) Acute Anticipated Postoperative Respiratory Insufficiency - improved, s/p extubation and stable on 3LNC. Continue to wean O2 as able to room air, keep sats >90%. Increase activity as tolerated. Continue with Duonebs TID and Albuterol PRN. Add and encourage acapella. Will also add Mucinex to assist with mucus clearance. Check ambulatory pulse oximetry prior to hospital discharge. 2) Multivessel CAD - s/p CABG x4, POD #4 - management per CTS. Continue with ASA, Statin, BB. Continue with pain control. Diurese as able - now on Lasix 40 mg PO daily. 3) Small Right Apical Pneumothorax - monitor 4) Morbid Obesity - BMI 44.52. Patient would benefit from weight loss. 5) Leukocytosis - likely reactive and now resolving. Continue to monitor. Patient is afebrile. 6) Full Code 7) No new pulmonary/critical care recommendations. Stable out of CVICU. Will see PRN. Please call with questions or if patient's condition deteriorates. SIGNATURE: Mirna Olmstead APRN.CNP PATIENT NAME: Hilaria Woo DATE: December 30, 2019 TIME: 9:13 AM PAGER/CONTACT #: [phone] [facility] THERAPY NTon 12-30-2019 THERAPY NT HNO ID: [id number] Author: Janny (Pt) Stan Service: Physical Therapy Author Type: Physical Therapist Type: Therapy (PT/OT/Speech/Resp) Filed: 12/30/2019 3:51 PM Note Text: Physical Therapy Treatment SERVICE DATE: 12/30/2019 SERVICE TIME: 1445 to 1510 ROOM: [id number] Recommended Discharge Disposition: Home Recommended Discharge Disposition Comments: with assist from Anticipated Discharge Needs: Physical Assist at Home Physical Assist at Home for: Cleaning;Laundry;Meals ;Shopping;Transportati on PT Recommendations to Nursing: Ambulate without device;To bathroom;In halls;Transfer to/from chair;OOB for Meals;With assist of 1 person Device: No Device PT 6 Clicks Score: 20 Precautions/Activity Restrictions: Sternal;Fall Risk;Cardiac Precaution/Activity Restriction Comments: sternal vest ASSESSMENT : Patient progressing well toward goals. Patient continues to demonstrate safe functional mobility during ambulation and transfers. Continue to recommend home with assist from as needed. Patient Disposition at Start of Session: OOB in Chair;Call Gonzales in Reach Patient Disposition at End of Session: OOB in Chair;Call Gonzales in Reach Tolerated Full Session Physical Therapy Problem List: Pain;Safety Deficits;Decreased Activity Tolerance;Decreased Range Of Motion;Decreased Strength;Functional Mobility Impairment;Balance Impaired Patient /Caregiver Goals: Go Home Goals for Plan of Care: Rolling with: Independent Transfer supine to/from sit with: Independent Transfer sit to/from stand with: Independent Ambulate with: Independent Distance: 300ft Device: No Device Goal: able to recall 3/3 sternal precautions Progress Toward Goals: Progressing as expected Rehab Potential: Excellent PLAN: Treatment Frequency (times per week): 5(2-5) Current admission Treatment Interventions: Education;Strengthenin g;Functional Mobility Training;Balance Training;Neuromuscular Re-education Plan of Care developed with: Patient TREATMENT INTERVENTIONS: Therapy Diagnosis: Reduced mobility-other Interventions Provided: Therapeutic Activity (94292);Gait Training (68384) Therapeutic Activity (58258) Treatment Minutes: 10 1 unit Skilled Intervention(s): patient able to recall 2/3 sternal precautions when asked- no pushing, no pulling, no lifting more than 5-10lbs, no overhead motion, no reaching back. Patient demonstrates good understanding. Education on sternal precautions during functional mobility - no pushing, reaching forward or behind with upper extremities, use cough pillow to brace sternum when moving or coughing. Patient demonstrates good understanding. Education and cues for appropriate transfers. Instructed patient to cross arms over chest and initiate standing by pushing through bilateral lower extremities and utilizing momentum and forward weight shift as needed. Patient requires standby assist and demonstrates good understanding. Cues to back up to surface and feel surface behind legs. Cues to cross arms over chest and bend at waist for bowing motion. Patient requires standby assist and demonstrates good understanding. Cues for upright posture during ambulation. Vitals monitored during gait. Cues for deep breathing as appropriate. Cues for pacing as appropriate. Gait Training (52343) Treatment Minutes: 15 1 unit Skilled Intervention(s): Cues for upright posture during ambulation. Vitals monitored during gait. Cues for deep breathing as appropriate. Cues for pacing as appropriate. Cueign to take breaks in hallway as needed. Total Timed Code Treatment Minutes: 25 Total Treatment Time (minutes): 25 SUBJECTIVE: Current Hospital Course: Chart reviewed and no significant medical updates relevant to therapy were noted. Reason for Physical Therapy Consult : treatment Relevant Past Medical History: CAD, obesity, CHF Patient Report: Patient without complaints. States he has not worries about going home Home Environment Patient Lives With: Spouse Assistance Available: 24 Hour Entry To Home: Stairs Number Of Stairs Into Home: 3 Number Of Stairs To Bed/Bath: flight Equipment Owned: Cane;Wheeled Walker;Shower Chair Prior Functional Level: Within Functional Limits Prior Functional Level Comments: Patient reports typically active and independent prior to admission. States he still works OBJECTIVE: CURRENT FUNCTIONAL STATUS: Current Functional Mobility Assist Level Additional Information Sit to Stand Stand By Assistance Stand to Sit Stand By Assistance Gait Contact Guard Assistance Gait Device: None Gait Distance (feet): 300ft General Deviations/Observation s: Flexed trunk posture;Lateral sway increased;Wide base of support -HLM: 8: Walk 250 feet or more Please see discipline specific clinical documentation flowsheet for complete details for this therapy evaluation/treatment. SIGNATURE: Janny Pierce PT PATIENT NAME: Hilaria Woo DATE: December 30, 2019 TIME: 3:48 PM Normal [facility] XR CHEST 2V FRONTAL/LATon XR CHEST 2V FRONTAL/LAT * * *Final Repor t* * * DATE OF EXAM: Dec 30 2019 8:38AM AKX [id number] - XR CHEST 2V FRONTAL/LAT / PROCEDURE REASON: Post-operative / post-procedure assessment, asymptomatic * * * * Physician Interpretation * * * * EXAMINATION: CHEST RADIOGRAPH (2 VIEW FRONTAL & LATERAL) CLINICAL HISTORY: Post-operative / post-procedure assessment, asymptomatic MQ: [id number] EXAM DATE/TIME: 12/30/2019 8:38 AM COMPARISON: 12/29/2019 at 5:02 AM; 12/28/2019 at 5:28 AM RESULT: Lines, tubes, and devices: Interval removal of right IJ central venous catheter. Lungs and pleura: The pulmonary vasculature is normal. Persistent small left pleural effusion with adjacent atelectasis/consolidat ion. There is trace blunting of the right costophrenic angle, unchanged. No pneumothorax. Cardiomediastinal silhouette: Status post median sternotomy. Stable, enlarged cardiomediastinal silhouette. Bones and soft tissues: Degenerative changes are present within the thoracic spine. IMPRESSION: Interval removal of central venous catheter. No pneumothorax. Persistent small left pleural effusion with adjacent atelectasis/consolidat ion. Framing Machine Tender: KAYLEEN Transcribe Date/Time: Dec 30 2019 8:38A Dictated by : ASHANTI LARA MD This examination was interpreted and the report reviewed and electronically signed by: ASHANTI LARA MD on Dec 30 2019 8:43AM EST Normal [facility] Basic Metabolic Panelon - Anion gap [Moles/Vol] 10 mmol/L Normal 9-18 [facility] Comment on above: Performed By: #### C MP #### [facility] [address], [place] [address] Calcium [Mass/Vol] 8.6 mg/dL Normal 8.5-10.2 [facility] Comment on above: Performed By: #### C MP #### [facility] [address], [place] [address] Chloride [Moles/Vol] 97 mmol/L Normal 97-105 [facility] Comment on above: Performed By: #### C MP #### [facility] [address], [place] [address] CO2 Blood 25 mmol/L Normal 22-30 [facility] Comment on above: Performed By: #### C MP #### [facility] [address] [place], [place] [address] Creatinine [Mass/Vol] 0.96 mg/dL Normal 0.73-1.22 [facility] Comment on above: Performed By: #### C MP #### [facility] [address] [place], [place] [address] Glucose [Mass/Vol] 189 mg/dL High 74-99 [facility] Comment on above: Result Comment: The Citizen [place] Diabetes Association (ADA) provides guidance for cutoff values for fasting glucose and random glucose. The ADA defines fasting as no caloric intake for at least 8 hours.Fasting plasma glucose results between 100 to 125 mg/dL indicate increased risk for diabetes (prediabetes). Fasting plasma glucose results greater than or equal to 126 mg/dL meet the criteria for diagnosis of diabetes. In the absence of unequivocal hyperglycemia, results should be confirmed by repeat testing. In a patient with classic symptoms of hyperglycemia or hyperglycemic crisis, random plasma glucose results greater than or equal to 200 mg/dL meet the criteria for diagnosis of diabetes. Reference: Standards of Medical Care in Diabetes 2016; Citizen [place] Diabetes Association. Diabetes Care. 2016;39(Suppl 1). Performed By: #### C MP #### [facility] [address], [place] [address] Potassium [Moles/Vol] 5.3 mmol/L High 3.7-5.1 [facility] Comment on above: Performed By: #### C MP #### [facility] [address] [place], [place] [address] Sodium [Moles/Vol] 132 mmol/L Low 136-144 [facility] Comment on above: Performed By: #### C MP #### [facility] [address] [place], [place] [address] Urea nitrogen [Mass/Vol] 28 mg/dL High 9-24 [facility] Comment on above: Performed By: #### C MP #### [facility] [address] [place], [place] [address] CASE MANAGEMon 12-29-2019 CASE MANAGEM HNO ID: [id number] Author: Wendy (Rn) KATTY Chavarria Service: ? Author Type: Registered Nurse Type: Care Mgt Progress Note Filed: 12/29/2019 12:04 PM Note Text: CARE MANAGEMENT PROGRESS NOTE SERVICE DATE: 12/29/2019 SERVICE TIME: 10:25 AM LOS: 3 days Needs Prior to Discharge: Home Care Order;Discharge Prescriptions;Pharmacy Bedside Delivery [facility] has accepted and pt made aware. Disch Plan: Home with assist and [facility]. SIGNATURE: Wendy Chavarria RN PATIENT NAME: Hilaria Woo DATE: December 29, 2019 TIME: 10:24 AM PAGER/CONTACT #: [phone] Normal [facility] CONSULT PROGon 12-29-2019 CONSULT PROG HNO ID: [id number] Author: Kelly Jolly Service: Endocrinology Author Type: Physician Type: Consult Progress Note Filed: 12/29/2019 8:03 PM Note Text: ENDOCRINOLOGY CONSULT PROGRESS NOTE SERVICE DATE: 12/29/2019 SERVICE TIME: 5:40 PM Subjective INTERVAL HPI: pt followed for diabetes mellitus type 2 uncontrolled; HbA1c 10.5; On iv insulin gtt per CABG protocol; now hyperglycemic on sq insulin DIET HEART HEALTHY Recent Labs 12/29/19 1647 12/29/19 1201 12/29/19 0722 12/29/19 0541 12/28/19 0456 12/27/19 0430 GLUC -- -- -- 189* -- 126* -- 141* GLUCOSEMETER 191* 230* 184* -- < > -- < > -- < > = values in this interval not displayed. Current Facility-Administered Medications Medication Dose Route Frequency - ipratropium-albuterol 3 mL nebulizer solution (DUONEB) 3 mL INHALATION TID - atorvastatin 80 mg tab(s) (LIPITOR) 80 mg ORAL DAILY - ondansetron (PF) 4 mg injection (ZOFRAN) 4 mg INTRAVENOUS q 6 H PRN - lidocaine 4 % 1 Patch (SALONPAS) 1 Patch TRANSDERMAL DAILY And - lidocaine patch - REMOVE OTHER AT BEDTIME And - lidocaine - VERIFY PATCH OTHER q 8 H - magnesium oxide 400 mg tab(s) (MAG-OX) 400 mg ORAL DAILY - gabapentin 200 mg cap(s) (NEURONTIN) 200 mg ORAL DAILY - aspirin 162 mg chewable tab(s) 162 mg ORAL DAILY - acetaminophen 1,000 mg tab(s) (TYLENOL) 1,000 mg ORAL q 6 H - pantoprazole DR 40 mg tab(s) (PROTONIX) 40 mg ORAL DAILY (6 AM) - oxyCODONE IR 5-10 mg tab(s) (ROXICODONE) 5-10 mg ORAL q 3 H PRN - bisacodyl 10 mg suppository (DULCOLAX) 10 mg RECTAL DAILY PRN - polyethylene glycol 3350 17 g packet (MIRALAX, GLYCOLAX) 17 g ORAL DAILY - senna-docusate 8.6-50 mg 1 tablet (SENNA-S) 1 tablet ORAL BID - dextrose 40 % 15 g 15 g ORAL PRN Or - glucagon 1 mg injection (GLUCAGEN) 1 mg INTRAMUSCULAR PRN Or - dextrose 50% in water 25 mL syringe 12.5 g INTRAVENOUS PRN - insulin lispro pen (rapid acting) (HumaLOG KWIKPEN) SUBCUTANEOUS w MEALS - enoxaparin 40 mg injection (LOVENOX) 40 mg SUBCUTANEOUS q 12 HR - metoprolol tartrate (short acting) 50 mg tab(s) (LOPRESSOR) 50 mg ORAL q 12 H - furosemide 40 mg tab(s) (LASIX) 40 mg ORAL DAILY - NaCl 0.9% 2-10 mL 2-10 mL INTRAVENOUS q 12 H - melatonin 3 mg tab(s) 3 mg ORAL HS PRN - insulin lispro 20 Units pen (rapid acting) (HumaLOG KWIKPEN) 20 Units SUBCUTANEOUS w MEALS - insulin glargine 45 Units pen (long acting) (LANTUS SOLOSTAR, BASAGLAR KWIKPEN) 45 Units SUBCUTANEOUS BID 8A/BEDTIME - metFORMIN 500 mg tab(s) (GLUCOPHAGE) 500 mg ORAL BID w MEALS - bisacodyl EC 10 mg tab(s) (DULCOLAX) 10 mg ORAL AT BEDTIME Objective PHYSICAL EXAM: BP 135/66 Pulse 72 Temp (Src) 98.2 (Oral) Resp 18 Ht 5' 11 (1.80m) Wt 321 lb 10.4 oz (145.9kg) SpO2 98% BMI 44.88 kg/(m2). O2 Therapy: Nasal Cannula, Liters: 3 General: awake, alert Skin: skin color, texture, turgor normal, no rashes or lesions. Head: normocephalic, no masses, lesions, tenderness or abnormalities. Eyes: VIOLA Oropharynx: moist mm Neck: thick; no goiter Heart: RRR without murmur, gallop, or rubs. No ectopy Abdomen: soft, non-tender, positive bowel sounds Extremities: no edema, no calluses or ulcers present. Peripheral Pulses: posterior tibial and doralis pedis pulses 2+ and symmetrical ? DATA: Diagnostic tests reviewed for today's visit: Most recent labs and imaging results. Assessment/Plan Diabetes mellitus type 2 uncontrolled; with severe complications; HbA1c 10.5; at home on glimepiride, metformin, victoza and lantus 20 units daily; now on iv insulin gtt per CABG protocol this am at 4 units per hour for glycemic control; added prandial humalog;transitioned to sq insulin , increase lantus 45 units bid, humalog 20 units qac tid plus correction; check BS qac plus qhs; add metformin. ? Obesity, Class III, BMI >= 40 POA: Unknown Assessment AND Plan: ? CAD (coronary artery disease) POA: Yes Assessment AND Plan:s/p CABG 12/26/19 ? ? SIGNATURE: Kelly Jolly MD PATIENT NAME: Hilaria Woo DATE: December 29, 2019 TIME: 8:03 PM PAGER: [phone] Normal [facility] Hemogramon 12-29-2019 Erythrocyte distribution width (RBC) [Ratio] 13.5 % Normal 11.6-14.4 [facility] Comment on above: Performed By: #### C BC1 ####[facility] [place], [place] [address] Hematocrit (Bld) [Volume fraction] 32.8 % Low 40.1-51.0 [facility] Comment on above: Performed By: #### C BC1 ####[facility] [place], [place] [address] Hemoglobin (Bld) [Mass/Vol] 10.8 g/dL Low 13.7-17.5 [facility] Comment on above: Performed By: #### Adelaida BC1 ####[address] [address] MCH (RBC) [Entitic mass] 30.1 pg Normal 25.7-32.2 [facility] Comment on above: Performed By: #### C BC1 ####[address] [address] MCHC (RBC) [Mass/Vol] 32.9 % Normal 32.3-36.5 [facility] Comment on above: Performed By: #### C BC1 ####[address] [address] MCV (RBC) [Entitic vol] 91.4 fL Normal 83.2-95.6 [facility] Comment on above: Performed By: #### C BC1 ####[address] [address] Platelet mean volume (Bld) [Entitic vol] 11.0 fL Normal 8.7-12.0 [facility] Comment on above: Performed By: #### C BC1 ####[address] [address] Platelets (Bld) [#/Vol] 212 thou/cmm Normal 141-365 [facility] Comment on above: Performed By: #### C BC1 ####[address] [address] RBC (Bld) [#/Vol] 3.59 mil/cmm Low 4.63-6.08 [facility] Comment on above: Performed By: #### C BC1 ####[facility] [place], [place] [address] RDW SD 45.1 fl Normal 36.1-45.8 [facility] Comment on above: Performed By: #### C BC1 ####[facility] [place], [place] [address] WBC (Bld) [#/Vol] 10.00 thou/cmm High 4.23-9.07 [facility] Comment on above: Performed By: #### C BC1 ####[address] [address] NURSING PROGon 12-29-2019 NURSING PROG HNO ID: [id number] Author: Lonny (Katty) KATTY Maurice Service: Nursing Author Type: Registered Nurse Type: Nursing Progress Note Filed: 12/29/2019 1:10 PM Note Text: Nursing Progress Note Patient Name: Hilaria Woo Patient Location: [place] [address] [address] __ Transfer Note: Called report to Charlotte RN at 1230. Pt transferred from 3244 to 4219 at 1245. Vitals stable, with belongings. Pt placed on telemetry and sitting up in chair. Charlotte RN made aware pt in room. This note was completed by: Lonny Maurice RN [facility] PROGRESSon 12-29-2019 PROGRESS HNO ID: [id number] Author: Moiz Dumont Service: Pulmonary Disease Author Type: Physician Type: Progress Notes Filed: 12/29/2019 4:55 PM Note Text: MICU - PROGRESS NOTE SERVICE DATE: December 29, 2019 Admission Date: 12/26/2019 AGE: [age] year old LOS: 3 days Subjective No acute events overnight. Chest tubes out, pain better but has intermittent cough, unable to expectorate. Ambulated multiple times without difficulty. 4L 98% Objective PROBLEMS: ACTIVE PROBLEM LIST Obesity, Class III, BMI >= 40 Cad (Coronary Artery Disease) S/P Cabg X 4 PAST MEDICAL HISTORY Diagnosis Date - Abnormal cardiac enzyme level - CAD (coronary artery disease) - Cardiomegaly - Chest pain - CHF (congestive heart failure) (HCC) - Diabetes mellitus, type II (HCC) - DVT (deep venous thrombosis) (HCC) - HTN (hypertension) - Hyperlipidemia - Obesity - SOB (shortness of breath) PAST SURGICAL HISTORY Procedure Laterality Date - CARDIAC CATH 11/18/2019 [facility] - ECHO 11/17/2019 [facility] Social History Tobacco Use - Smoking status: Never Smoker - Smokeless tobacco: Never Used Substance Use Topics - Alcohol use: Not Currently - Drug use: Never VITAL SIGNS (last 24hrs min/max): Temp Av.6 ?C (97.8 ?F) Min: 35.5 ?C (95.9 ?F) Max: 37.8 ?C (100 ?F) Pulse Av.6 Min: 63 Max: 102 No data recorded Cuff BP Min: 90/54 Max: 138/92 Pain Level: 7 Vital signs reviewed. BP 135/66 Pulse 72 Temp (Src) 98.2 (Oral) Resp 18 Ht 5' 11 (1.80m) Wt 321 lb 10.4 oz (145.9kg) SpO2 98% BMI 44.88 kg/(m2). O2 Therapy: Nasal Cannula, Liters: 4 Temp (24hrs), Av.6 ?C (97.8 ?F), Min:35.5 ?C (95.9 ?F), Max:37.8 ?C (100 ?F) NET FLUID BALANCE Intake/Output Summary (Last 24 hours) at 12/29/2019 1648 Last data filed at 12/29/2019 1500 Gross per 24 hour Intake 800 ml Output 1900 ml Net -1100 ml MEDICATIONS Current Facility-Administered Medications Medication Dose Route Frequency - NaCl 0.9% 2-10 mL 2-10 mL INTRAVENOUS q 12 H - melatonin 3 mg tab(s) 3 mg ORAL HS PRN - insulin lispro 20 Units pen (rapid acting) (HumaLOG KWIKPEN) 20 Units SUBCUTANEOUS w MEALS - metFORMIN 500 mg tab(s) (GLUCOPHAGE) 500 mg ORAL BID w MEALS - dextrose 40 % 15 g 15 g ORAL PRN Or - glucagon 1 mg injection (GLUCAGEN) 1 mg INTRAMUSCULAR PRN Or - dextrose 50% in water 25 mL syringe 12.5 g INTRAVENOUS PRN - insulin lispro pen (rapid acting) (HumaLOG KWIKPEN) SUBCUTANEOUS w MEALS - enoxaparin 40 mg injection (LOVENOX) 40 mg SUBCUTANEOUS q 12 HR - metoprolol tartrate (short acting) 50 mg tab(s) (LOPRESSOR) 50 mg ORAL q 12 H - furosemide 40 mg tab(s) (LASIX) 40 mg ORAL DAILY - bisacodyl 10 mg suppository (DULCOLAX) 10 mg RECTAL DAILY PRN - polyethylene glycol 3350 17 g packet (MIRALAX, GLYCOLAX) 17 g ORAL DAILY - senna-docusate 8.6-50 mg 1 tablet (SENNA-S) 1 tablet ORAL BID - ipratropium-albuterol 3 mL nebulizer solution (DUONEB) 3 mL INHALATION TID - atorvastatin 80 mg tab(s) (LIPITOR) 80 mg ORAL DAILY - ondansetron (PF) 4 mg injection (ZOFRAN) 4 mg INTRAVENOUS q 6 H PRN - lidocaine 4 % 1 Patch (SALONPAS) 1 Patch TRANSDERMAL DAILY And - lidocaine patch - REMOVE OTHER AT BEDTIME And - lidocaine - VERIFY PATCH OTHER q 8 H - magnesium oxide 400 mg tab(s) (MAG-OX) 400 mg ORAL DAILY - gabapentin 200 mg cap(s) (NEURONTIN) 200 mg ORAL DAILY - aspirin 162 mg chewable tab(s) 162 mg ORAL DAILY - acetaminophen 1,000 mg tab(s) (TYLENOL) 1,000 mg ORAL q 6 H - pantoprazole DR 40 mg tab(s) (PROTONIX) 40 mg ORAL DAILY (6 AM) - oxyCODONE IR 5-10 mg tab(s) (ROXICODONE) 5-10 mg ORAL q 3 H PRN Lines, Drains, and Airways Line Peripheral 12/26/19 0735 Right Antecubital 16 Gauge 3 days Peripheral 12/29/19 1001 Short Left Antecubital 20 Gauge less than 1 day PHYSICAL EXAM PERFORMED: General: in chair, comfortable Cardiovascular: Regular rhythm Respiratory: Reduced breath sounds bilat Abdomen: Soft and Nontender Extremities: Edema- No Neurologic: Awake, oriented, Alert, Follows commands and Moving all extremities Respiratory/Nursing Documentation: O2 Therapy: Nasal Cannula (12/29/19 1516) HEMODYNAMIC DATA: Reviewed NUTRITION: Enteral Feeds: Yes Regular diet DATA: Diagnostic tests reviewed for today's visit, films/specimens were personally reviewed by me: Most recent labs and imaging results. CXR Interval removal of left-sided thoracostomy tube without evidence of left-sided pneumothorax. Apparent trace right apical pneumothorax with small pleural effusion. Left basilar atelectasis. Indeterminate left paravertebral linear density requiring correlation with subsequent chest radiographs. Stable moderate prominent cardiac silhouette. LABS: Recent Labs 12/29/19 0541 12/28/19 0456 WBC 10.00* 12.29* RBC 3.59* 3.81* HB 10.8* 11.2* HCT 32.8* 35.2* MCV 91.4 92.4 PLT 212 205 GLUC 189* 126* BUN 28* 27* CREAT 0.96 1.09 NA 132* 132* K 5.3* 5.0 CHLOR 97 97 CO2 25 26 CA 8.6 8.6 MG -- 2.4* ABG: Recent Labs 12/27/19 0630 12/26/19 1740 PH 7.366 7.304* PO2 78.1* 78.0* PCO2 41.8 46.9* Assessment/Plan IMPRESSION: ? S/p CABG x 4 on 12/26/19 ? Acute anticipated post op respiratory insufficiency ? Multivessel CAD ? Small apical PTX, montor ? Leucocytosis, reactive, improving ? DM?on insulin gtt ? HTN ? MMP ? Never smoker PLAN: ? Wean oxygen, keep spo2 90-95% ? continue ambulation/IS ? Add acapella ? Pain control ? DVT px: lovenox ? Transfer to floor SIGNATURE: Moiz Dumont MD PATIENT NAME: Hilraia Woo DATE: December 29, 2019 TIME: 4:48 PM Normal [facility] PROGRESS HNO ID: [id number] Author: Jonathan Krueger (Pa) Service: Cardiac Surgery Author Type: Physician [employer] Type: Progress Notes Filed: 12/29/2019 8:39 AM Note Text: CARDIOTHORACIC SURGERY POSTOP PROGRESS NOTE SERVICE DATE: 12/29/2019 SERVICE TIME: 7:35 AM Subjective S/P SURGERY: Procedure(s) (LRB): CABG x 4 DATE OF SURGERY: 12/26/2019 POSTOP DAY #3 LOS: 3 INTERVAL EVENTS / PERTINENT ROS: Patient seen and examined this morning. He states that he felt short of breath after lying in bed last night but that his SOB has now improved. He states that his pain is still present but is tolerable. Patient denies any N/V. Labs and images were reviewed. Objective Admission Weight: (!) 149 kg (328 lb 7.8 oz) BP 123/77 Pulse 68 Temp 36.6 ?C (97.9 ?F) (Oral) Resp 19 Ht 180.3 cm (5' 11) Wt (!) 145.9 kg (321 lb 10.4 oz) SpO2 96% BMI 44.86 kg/m? Body surface area is 2.7 meters squared. Min/Max/Average Temperature AND Blood Pressure: Temp (24hrs), Av ?C (96.8 ?F), Min:35.4 ?C (95.7 ?F), Max:36.6 ?C (97.9 ?F) Systolic (24hrs), Av , Min:90 , Max:150 Diastolic (24hrs), Av, Min:54, Max:120 Intake/Output Summary (Last 24 hours) at 12/29/2019 0733 Last data filed at 12/29/2019 0500 Gross per 24 hour Intake 1020 ml Output 1681 ml Net -661 ml TELEMETRY: normal sinus rhythm PHYSICAL EXAM: General Appearance: Patient is well appearing on 4 L NC. In NAD Skin: Midsternal incision and SVG incision are dry AND intact without any surrounding erythema, warmth, drainage. Neck: no JVD and supple Lungs: Patient has diminished breath sounds bilaterally L > R. Positive for mild conversational dyspnea. Heart: regular rhythm, S1, S2 normal and pacing wires present Peripheral Vascular/Arteries: pulses intact, dorsalis pedis 2+ and radial 3+ Abdomen: firm, round, non-tender and bowel sounds present Neurologic/Psychiatric : oriented to time, place and person, alert and tactical intelligence officer strength 5/5 Extremities: Mild non pitting edema of the upper and lower extremities bilaterally Lines, Drains, and Airways Line Central Line Quadruple Lumen 12/26/19 1200 Right Neck 2 days Peripheral 12/26/19 0735 Right Antecubital 16 Gauge 2 days DATA: Diagnostic tests reviewed for today's visit: Chest X-RAY: There is blunting of the lateral costophrenic angle. On the left, there is increased retrocardiac opacity suggesting postoperative atelectasis. There is no definite pneumothorax. Recent Labs 12/29/19 0541 12/28/19 0456 12/27/19 0430 12/26/19 1545 RBC 3.59* 3.81* 4.02* 4.17* WBC 10.00* 12.29* 13.11* 18.25* HB 10.8* 11.2* 11.8* 12.4* HCT 32.8* 35.2* 36.8* 38.1* PLT 212 205 281 271 INR -- -- -- 1.10 APTT -- -- -- 24.8 NA 132* 132* 136 138 K 5.3* 5.0 4.7 3.7 CHLOR 97 97 103 102 CO2 25 26 22 23 BUN 28* 27* 18 13 CREAT 0.96 1.09 1.29* 1.24* GLUC 189* 126* 141* 177* CA 8.6 8.6 8.6 8.5 MG -- 2.4* 2.0 1.7 ANION 10 9 11 13 Recent Labs 12/27/19 0630 12/26/19 1740 12/26/19 1645 12/26/19 1457 12/26/19 1422 12/26/19 1409 PH 7.366 7.304* 7.264* < > 7.360 7.356 7.359 PCO2 41.8 46.9* 48.4* < > -- -- -- PO2 78.1* 78.0* 87.0 < > 127.0* 79.0* 77.0* BE -1.4 -3.4* -5.4* < > -- -- -- HCO3 -- -- -- -- 23.0 24.3 24.6 < > = values in this interval not displayed. Assessment/Plan CAD s/p CABG x 4 -wood-lad; isak-om; svg-diag; svg-pda; evh -POD#3 -Continue ASA 162, atorvastatin 80mg, metoprolol to 50mg BID -D/c pacing wires and central line -Heart healthy diet with bowel regimen; nutrition on board -Resume home Lasix of 40mg daily; additional 20 IV lasix later today -Pain control with modified ERAS -Ambulate as tolerated -Post thorax vest ? Anticipated Post-op Respiratory Insufficiency -Currently 94% on 4LNC; continue to wean -Scheduled duonebs; lasix -Encourage deep breathing, IS, and cough ? Acute post-op blood-loss anemia -HANDH currently 10.8/32.8; no transfusion at this time -Continue to monitor ? Acute Post-op pain -Continue modified ERAS ? Hyperglycemia -HbA1c: 10.5 -Endo on consult; appreciate recs ? Hypertension -Currently normotensive -Lopressor to 50mg BID -Home regiment includes amlodipine 10mg and losartan 100mg (consider adding when BB optimized) ? ROBERT -Baseline Cr 0.85; .96 today -Adequate urine OP -Continue to monitor ? DVT ppx -Continue lovenox, SCDs, and russel hose ? GI ppx -Continue protonix ? Resolved -Respiratory acidosis -Hypotension -Leukocytosis ? Dispo -Transfer to 4200 this afternoon Plan was discussed with Dr. Mack and the CVICU team. ? Tests/Labs Ordered: 1. Chest X-ray 2. CBC 3. CMP SIGNATURE: Jonathan Krueger PA-C PATIENT NAME: Hilaria Woo DATE: December 29, 2019 TIME: 7:33 AM PAGER/CONTACT #:[phone] ETX [id number] Normal [facility] XR CHEST 1V FRONTALon 2019 XR CHEST 1V FRONTAL * * *Final Report* * * DATE OF EXAM: Dec 29 2019 5:57AM [id number] - XR CHEST 1V FRONTAL / PROCEDURE REASON: Post-operative / post-procedure assessment, asymptomatic * * * * Physician Interpretation * * * * EXAMINATION: CHEST RADIOGRAPH (SINGLE VIEW AP OR PA) CLINICAL HISTORY: Post-operative / post-procedure assessment. A right internal jugular central venous catheter remains. Other catheters and tubes have been removed in discussion with the ICU nurse. MQ: XC1_5 Comparison: 12/28/2019, 12/27/2019, 12/26/2019 and 12/13/2019. RESULT: Limitations: Body habitus and underpenetration. Lines, tubes, and devices: Monitoring wires overlie the chest. A right internal jugular central venous catheter remains in unaltered position. The left-sided thoracostomy tube is no longer visualized. There is a vertically oriented left paravertebral linear density. Lungs and pleura: On the right, there is upper lung opacity considered likely secondary to overlying radiopaque tubing. There is an apparent trace trace apical pneumothorax. There is blunting of the lateral costophrenic angle. On the left, there is increased retrocardiac opacity suggesting postoperative atelectasis. There is no definite pneumothorax. Cardiomediastinal silhouette: Stable moderate prominent cardiac silhouette. Other: Postoperative changes of median sternotomy with cerclage wires and stabilization plates. IMPRESSION: Limited single view chest. Interval removal of left-sided thoracostomy tube without evidence of left-sided pneumothorax. Apparent trace right apical pneumothorax with small pleural effusion. Left basilar atelectasis. Indeterminate left paravertebral linear density requiring correlation with subsequent chest radiographs. Stable moderate prominent cardiac silhouette. A summary of findings is discussed with the ICU nurse at time of dictation. Framing Machine Tender: KAYLEEN Transcribe Date/Time: Dec 29 2019 7:21A Dictated by : PAULA CENTENO MD This examination was interpreted and the report reviewed and electronically signed by: PAULA CENTENO MD on Dec 29 2019 8:18AM EST Normal [facility] Basic Metabolic Panelon 12-07 Anion gap [Moles/Vol] 9 mmol/L Normal 9-18 [facility] Comment on above: Performed By: #### B MP ####[address] [address] Calcium [Mass/Vol] 8.6 mg/dL Normal 8.5-10.2 [facility] Comment on above: Performed By: #### B MP ####[facility] [place], [place] [address] Chloride [Moles/Vol] 97 mmol/L Normal 97-105 [facility] Comment on above: Performed By: #### B MP ####[address] [address] CO2 Blood 26 mmol/L Normal 22-30 [facility] Comment on above: Performed By: #### B MP ####[facility] [place], [place] [address] Creatinine [Mass/Vol] 1.09 mg/dL Normal 0.73-1.22 [facility] Comment on above: Performed By: #### B MP ####[facility] [place], [place] [address] Glucose [Mass/Vol] 126 mg/dL High 74-99 [facility] Comment on above: Result Comment: The Citizen [place] Diabetes Association (ADA) provides guidance for cutoff values for fasting glucose and random glucose. The ADA defines fasting as no caloric intake for at least 8 hours.Fasting plasma glucose results between 100 to 125 mg/dL indicate increased risk for diabetes (prediabetes). Fasting plasma glucose results greater than or equal to 126 mg/dL meet the criteria for diagnosis of diabetes. In the absence of unequivocal hyperglycemia, results should be confirmed by repeat testing. In a patient with classic symptoms of hyperglycemia or hyperglycemic crisis, random plasma glucose results greater than or equal to 200 mg/dL meet the criteria for diagnosis of diabetes. Reference: Standards of Medical Care in Diabetes 2016; Citizen [place] Diabetes Association. Diabetes Care. 2016;39(Suppl 1). Performed By: #### B MP ####[address] [address] Potassium [Moles/Vol] 5.0 mmol/L Normal 3.7-5.1 [facility] Comment on above: Performed By: #### B MP ####[facility] [place], [place] [address] Sodium [Moles/Vol] 132 mmol/L Low 136-144 [facility] Comment on above: Performed By: #### B MP ####[facility] [place], [place] [address] Urea nitrogen [Mass/Vol] 27 mg/dL High 9-24 [facility] Comment on above: Performed By: #### B MP ####[address] [address] CONSULT PROGon 12-28-2019 CONSULT PROG HNO ID: [id number] Author: Kelly Jolly Service: Endocrinology Author Type: Physician Type: Consult Progress Note Filed: 12/28/2019 2:12 PM Note Text: ENDOCRINOLOGY CONSULT PROGRESS NOTE SERVICE DATE: 12/28/2019 SERVICE TIME: 1:53 PM Subjective INTERVAL HPI: pt followed for diabetes mellitus type 2 uncontrolled; HbA1c 10.5; On iv insulin gtt per CABG protocol; DIET HEART HEALTHY Recent Labs 12/28/19 1205 12/28/19 0956 12/28/19 0744 12/28/19 0456 12/27/19 0430 12/26/19 1545 GLUC -- -- -- -- 126* -- 141* -- 177* GLUCOSEMETER 139* 170* 144* < > -- < > -- < > -- < > = values in this interval not displayed. Current Facility-Administered Medications Medication Dose Route Frequency - ipratropium-albuterol 3 mL nebulizer solution (DUONEB) 3 mL INHALATION TID - atorvastatin 80 mg tab(s) (LIPITOR) 80 mg ORAL DAILY - potassium chloride iv piggyback 20 mEq/100 mL 20 mEq INTRAVENOUS PRN - magnesium sulfate in water 2 g in sterile water 50 ml 2 g INTRAVENOUS PRN(NO DISPENSE) - ondansetron (PF) 4 mg injection (ZOFRAN) 4 mg INTRAVENOUS q 6 H PRN - lidocaine 4 % 1 Patch (SALONPAS) 1 Patch TRANSDERMAL DAILY And - lidocaine patch - REMOVE OTHER AT BEDTIME And - lidocaine - VERIFY PATCH OTHER q 8 H - magnesium oxide 400 mg tab(s) (MAG-OX) 400 mg ORAL DAILY - gabapentin 200 mg cap(s) (NEURONTIN) 200 mg ORAL DAILY - NaCl 0.9% 250 mL iv bolus 250 mL INTRAVENOUS PRN - aspirin 162 mg chewable tab(s) 162 mg ORAL DAILY - acetaminophen 1,000 mg tab(s) (TYLENOL) 1,000 mg ORAL q 6 H - pantoprazole DR 40 mg tab(s) (PROTONIX) 40 mg ORAL DAILY (6 AM) - fentaNYL 50 mcg/mL 50 mcg injection (SUBLIMAZE) 50 mcg INTRAVENOUS q 2 H PRN - oxyCODONE IR 5-10 mg tab(s) (ROXICODONE) 5-10 mg ORAL q 3 H PRN - bisacodyl 10 mg suppository (DULCOLAX) 10 mg RECTAL DAILY PRN - polyethylene glycol 3350 17 g packet (MIRALAX, GLYCOLAX) 17 g ORAL DAILY - senna-docusate 8.6-50 mg 1 tablet (SENNA-S) 1 tablet ORAL BID - insulin glargine 65 Units pen (long acting) (LANTUS SOLOSTAR, BASAGLAR KWIKPEN) 65 Units SUBCUTANEOUS DAILY (8 AM) - insulin lispro 16 Units pen (rapid acting) (HumaLOG KWIKPEN) 16 Units SUBCUTANEOUS w MEALS - dextrose 40 % 15 g 15 g ORAL PRN Or - glucagon 1 mg injection (GLUCAGEN) 1 mg INTRAMUSCULAR PRN Or - dextrose 50% in water 25 mL syringe 12.5 g INTRAVENOUS PRN - insulin lispro pen (rapid acting) (HumaLOG KWIKPEN) SUBCUTANEOUS w MEALS - enoxaparin 40 mg injection (LOVENOX) 40 mg SUBCUTANEOUS q 12 HR - metoprolol tartrate (short acting) 50 mg tab(s) (LOPRESSOR) 50 mg ORAL q 12 H - furosemide 40 mg tab(s) (LASIX) 40 mg ORAL DAILY Objective PHYSICAL EXAM: BP 123/61 Pulse 72 Temp (Src) 95.7 (Temporal) Resp 17 Ht 5' 11 (1.80m) Wt 325 lb 13.4 oz (147.8kg) SpO2 97% BMI 45.47 kg/(m2). O2 Therapy: Nasal Cannula, Liters: 4 General: awake, alert Skin: skin color, texture, turgor normal, no rashes or lesions. Head: normocephalic, no masses, lesions, tenderness or abnormalities. Eyes: VIOLA Oropharynx: moist mm Neck: thick; no goiter Heart: RRR without murmur, gallop, or rubs. No ectopy Abdomen: soft, non-tender, positive bowel sounds Extremities: no edema, no calluses or ulcers present. Peripheral Pulses: posterior tibial and doralis pedis pulses 2+ and symmetrical ? DATA: Diagnostic tests reviewed for today's visit: Most recent labs and imaging results. Assessment/Plan Diabetes mellitus type 2 uncontrolled; with severe complications; HbA1c 10.5; at home on glimepiride, metformin, victoza and lantus 20 units daily; now on iv insulin gtt per CABG protocol this am at 4 units per hour for glycemic control; added prandial humalog;transition to sq insulin with lantus 65 units daily, humalog 16 units qac tid plus correction; check BS qac plus qhs. ? Obesity, Class III, BMI >= 40 POA: Unknown Assessment AND Plan: ? CAD (coronary artery disease) POA: Yes Assessment AND Plan:s/p CABG 12/26/19 ? ? SIGNATURE: Kelly Jolly MD PATIENT NAME: Hilaria Woo DATE: December 28, 2019 TIME: 1:53 PM PAGER: [phone] Normal [facility] Hemogramon 12-28-2019 Erythrocyte distribution width (RBC) [Ratio] 13.6 % Normal 11.6-14.4 [facility] Comment on above: Performed By: #### C BC1 ####[address] [address] Hematocrit (Bld) [Volume fraction] 35.2 % Low 40.1-51.0 [facility] Comment on above: Performed By: #### C BC1 ####[address] [address] Hemoglobin (Bld) [Mass/Vol] 11.2 g/dL Low 13.7-17.5 [facility] Comment on above: Performed By: #### C BC1 ####[address] [address] MCH (RBC) [Entitic mass] 29.4 pg Normal 25.7-32.2 [facility] Comment on above: Performed By: #### C BC1 ####[address] [address] MCHC (RBC) [Mass/Vol] 31.8 % Low 32.3-36.5 [facility] Comment on above: Performed By: #### C BC1 ####[address] [address] MCV (RBC) [Entitic vol] 92.4 fL Normal 83.2-95.6 [facility] Comment on above: Performed By: #### C BC1 ####[address] [address] Platelet mean volume (Bld) [Entitic vol] 11.2 fL Normal 8.7-12.0 [facility] Comment on above: Performed By: #### C BC1 ####[facility] [place], [place] [address] Platelets (Bld) [#/Vol] 205 thou/cmm Normal 141-365 [facility] Comment on above: Performed By: #### C BC1 ####[facility] [place], [place] [address] RBC (Bld) [#/Vol] 3.81 mil/cmm Low 4.63-6.08 [facility] Comment on above: Performed By: #### C BC1 ####[facility] [place], [place] [address] RDW SD 46.0 fl High 36.1-45.8 [facility] Comment on above: Performed By: #### C BC1 ####[address] [address] WBC (Bld) [#/Vol] 12.29 thou/cmm High 4.23-9.07 [facility] Comment on above: Performed By: #### C BC1 ####[address] [address] Magnesium Bloodon 12-28-2019 Magnesium [Mass/Vol] 2.4 mg/dL High 1.7-2.3 [facility] Comment on above: Performed By: #### M AG ####[address] [address] PROGRESSon 12-28-2019 PROGRESS HNO ID: [id number] Author: Moiz Dumont Service: Pulmonary Disease Author Type: Physician Type: Progress Notes Filed: 12/28/2019 3:57 PM Note Text: MICU - PROGRESS NOTE SERVICE DATE: December 28, 2019 Admission Date: 12/26/2019 AGE: [age] year old LOS: 2 days Subjective No acute events overnight. Hopeful for the chest tubes coming out today. Ambulated without much difficulty. No cough/dyspnea. On low flow nasal canula. Objective PROBLEMS: ACTIVE PROBLEM LIST Obesity, Class III, BMI >= 40 Cad (Coronary Artery Disease) S/P Cabg X 4 PAST MEDICAL HISTORY Diagnosis Date - Abnormal cardiac enzyme level - CAD (coronary artery disease) - Cardiomegaly - Chest pain - CHF (congestive heart failure) (HCC) - Diabetes mellitus, type II (HCC) - DVT (deep venous thrombosis) (HCC) - HTN (hypertension) - Hyperlipidemia - Obesity - SOB (shortness of breath) PAST SURGICAL HISTORY Procedure Laterality Date - CARDIAC CATH 11/18/2019 [facility] - ECHO 11/17/2019 [facility] Social History Tobacco Use - Smoking status: Never Smoker - Smokeless tobacco: Never Used Substance Use Topics - Alcohol use: Not Currently - Drug use: Never VITAL SIGNS (last 24hrs min/max): Temp Av.3 ?C (97.3 ?F) Min: 35.4 ?C (95.7 ?F) Max: 36.8 ?C (98.2 ?F) Pulse Av.8 Min: 69 Max: 99 No data recorded Cuff BP Min: 99/64 Max: 150/120 Pain Level: 7 Vital signs reviewed. BP 117/59 Pulse 72 Temp (Src) 95.7 (Temporal) Resp 21 Ht 5' 11 (1.80m) Wt 325 lb 13.4 oz (147.8kg) SpO2 98% BMI 45.47 kg/(m2). O2 Therapy: Nasal Cannula, Liters: 4 Temp (24hrs), Av.3 ?C (97.3 ?F), Min:35.4 ?C (95.7 ?F), Max:36.8 ?C (98.2 ?F) NET FLUID BALANCE Intake/Output Summary (Last 24 hours) at 12/28/2019 1552 Last data filed at 12/28/2019 1500 Gross per 24 hour Intake 1432.9 ml Output 1148 ml Net 284.9 ml MEDICATIONS Current Facility-Administered Medications Medication Dose Route Frequency - insulin glargine 65 Units pen (long acting) (LANTUS SOLOSTAR, BASAGLAR KWIKPEN) 65 Units SUBCUTANEOUS DAILY (8 AM) - insulin lispro 16 Units pen (rapid acting) (HumaLOG KWIKPEN) 16 Units SUBCUTANEOUS w MEALS - dextrose 40 % 15 g 15 g ORAL PRN Or - glucagon 1 mg injection (GLUCAGEN) 1 mg INTRAMUSCULAR PRN Or - dextrose 50% in water 25 mL syringe 12.5 g INTRAVENOUS PRN - insulin lispro pen (rapid acting) (HumaLOG KWIKPEN) SUBCUTANEOUS w MEALS - furosemide 40 mg tab(s) (LASIX) 40 mg ORAL DAILY - bisacodyl 10 mg suppository (DULCOLAX) 10 mg RECTAL DAILY PRN - polyethylene glycol 3350 17 g packet (MIRALAX, GLYCOLAX) 17 g ORAL DAILY - senna-docusate 8.6-50 mg 1 tablet (SENNA-S) 1 tablet ORAL BID - ipratropium-albuterol 3 mL nebulizer solution (DUONEB) 3 mL INHALATION TID - atorvastatin 80 mg tab(s) (LIPITOR) 80 mg ORAL DAILY - potassium chloride iv piggyback 20 mEq/100 mL 20 mEq INTRAVENOUS PRN - magnesium sulfate in water 2 g in sterile water 50 ml 2 g INTRAVENOUS PRN(NO DISPENSE) - ondansetron (PF) 4 mg injection (ZOFRAN) 4 mg INTRAVENOUS q 6 H PRN - lidocaine 4 % 1 Patch (SALONPAS) 1 Patch TRANSDERMAL DAILY And - lidocaine patch - REMOVE OTHER AT BEDTIME And - lidocaine - VERIFY PATCH OTHER q 8 H - magnesium oxide 400 mg tab(s) (MAG-OX) 400 mg ORAL DAILY - gabapentin 200 mg cap(s) (NEURONTIN) 200 mg ORAL DAILY - NaCl 0.9% 250 mL iv bolus 250 mL INTRAVENOUS PRN - aspirin 162 mg chewable tab(s) 162 mg ORAL DAILY - acetaminophen 1,000 mg tab(s) (TYLENOL) 1,000 mg ORAL q 6 H - pantoprazole DR 40 mg tab(s) (PROTONIX) 40 mg ORAL DAILY (6 AM) - fentaNYL 50 mcg/mL 50 mcg injection (SUBLIMAZE) 50 mcg INTRAVENOUS q 2 H PRN - oxyCODONE IR 5-10 mg tab(s) (ROXICODONE) 5-10 mg ORAL q 3 H PRN Lines, Drains, and Airways Line Central Line Quadruple Lumen 12/26/19 1200 Right Neck 2 days Peripheral 12/26/19 0735 Right Antecubital 16 Gauge 2 days Drain Chest Tube 12/26/19 1328 Left Pleural 28 Fr Tube #2 2 days Chest Tube 12/26/19 1328 Mediastinal Tube #1 2 days Chest Tube 12/26/19 1328 Right Pleural 28 Fr Tube #3 2 days Chest Tube 12/26/19 28 Fr Tube #4 2 days PHYSICAL EXAM PERFORMED: General: in chair, comfortable Cardiovascular: Regular rhythm Respiratory: Reduced breath sounds bilat Abdomen: Soft and Nontender Extremities: Edema- No Neurologic: Awake, oriented, Alert, Follows commands and Moving all extremities Respiratory/Nursing Documentation: O2 Therapy: Nasal Cannula (12/28/19 1305) HEMODYNAMIC DATA: Reviewed NUTRITION: Enteral Feeds: Yes Regular diet DATA: Diagnostic tests reviewed for today's visit, films/specimens were personally reviewed by me: Most recent labs and imaging results. CXR Probable small left pleural effusion with left basilar atelectasis. ?No pneumothorax. LABS: Recent Labs 12/28/19 0456 12/26/19 1545 WBC 12.29* < > 18.25* RBC 3.81* < > 4.17* HB 11.2* < > 12.4* HCT 35.2* < > 38.1* MCV 92.4 < > 91.4 PLT 205 < > 271 GLUC 126* < > 177* BUN 27* < > 13 CREAT 1.09 < > 1.24* NA 132* < > 138 K 5.0 < > 3.7 CHLOR 97 < > 102 CO2 26 < > 23 CA 8.6 < > 8.5 PTSEC -- -- 11.9 APTT -- -- 24.8 INR -- -- 1.10 MG 2.4* < > 1.7 < > = values in this interval not displayed. ABG: Recent Labs 12/27/19 0630 12/26/19 1740 12/26/19 1645 PH 7.366 7.304* 7.264* PO2 78.1* 78.0* 87.0 PCO2 41.8 46.9* 48.4* Assessment/Plan IMPRESSION: ? S/p CABG x 4 on 12/26/19 ? Acute anticipated post op respiratory insufficiency ? Multivessel CAD ? Leucocytosis, reactive, improving ? DM on insulin gtt ? HTN ? MMP ? Never smoker PLAN: ? Wean oxygen ? Chest tubes per CTVS ? Pain control ? DVT px: lovenox ? continue ambulation/IS ? Supportive care SIGNATURE: Moiz Dumont MD PATIENT NAME: Hilaria Woo DATE: December 28, 2019 TIME: 3:52 PM Normal [facility] PROGRESS HNO ID: [id number] Author: Jonathan Krueger (Pa) Service: Cardiac Surgery Author Type: Physician [employer]ter [employer] Type: Progress Notes Filed: 12/28/2019 4:44 PM Note Text: CARDIOTHORACIC SURGERY POSTOP PROGRESS NOTE SERVICE DATE: 12/28/2019 SERVICE TIME: 7:53 AM Subjective S/P SURGERY: Procedure(s) (LRB): S/p CABG x 4 DATE OF SURGERY: 12/26/2019 POSTOP DAY #2 LOS: 2 INTERVAL EVENTS / PERTINENT ROS: Patient seen and examined this morning. There were no acute events through the night. Patient reports only minimal pain and denies shortness of breath. Chest tubes will be pulled today. Labs and images were reviewed. Objective Admission Weight: (!) 149 kg (328 lb 7.8 oz) BP 129/60 Pulse 75 Temp 36.8 ?C (98.2 ?F) Resp 21 Ht 180.3 cm (5' 11) Wt (!) 147.8 kg (325 lb 13.4 oz) SpO2 95% BMI 45.45 kg/m? Body surface area is 2.72 meters squared. Min/Max/Average Temperature AND Blood Pressure: Temp (24hrs), Av.9 ?C (98.5 ?F), Min:36.4 ?C (97.5 ?F), Max:37.5 ?C (99.5 ?F) Systolic (24hrs), Av , Min:89 , Max:129 Diastolic (24hrs), Av, Min:53, Max:72 Intake/Output Summary (Last 24 hours) at 12/28/2019 0753 Last data filed at 12/28/2019 0600 Gross per 24 hour Intake 2023.3 ml Output 1175 ml Net 848.3 ml TELEMETRY: normal sinus rhythm PHYSICAL EXAM: General Appearance: Well developed and well nourished appearance. No acute distress. Midsternal AND SVG incision dry AND intact, without any surrounding erythema, warmth, drainage Lungs: Diminished breath sounds at the bases L > R; respiratory effort: normal Heart: regular rhythm, S1, S2 normal and pacing wires present Peripheral Vascular/Arteries: pulses intact; Radial 2+, DP 2+ Abdomen: soft, non-tender and bowel sounds present in all quadrants Neurologic/Psychiatric : Oriented to person, place, time. Normal affect. No gross focal neurologic deficits. Extremities: Mild non pitting edema to the LE bilaterally Lines, Drains, and Airways Line Peripheral 12/26/19 0735 Right Antecubital 16 Gauge 2 days Central Line Quadruple Lumen 12/26/19 1200 Right Neck 1 day Drain Chest Tube 12/26/19 28 Fr Tube #4 2 days Chest Tube 12/26/19 1328 Left Pleural 28 Fr Tube #2 1 day Chest Tube 12/26/19 1328 Mediastinal Tube #1 1 day Chest Tube 12/26/19 1328 Right Pleural 28 Fr Tube #3 1 day DATA: Diagnostic tests reviewed for today's visit: Chest X-RAY: Small left pleural effusion. ?There is atelectasis at the left lung base. ?No pneumothorax is visualized. Recent Labs 12/28/19 0456 12/27/19 0430 12/26/19 1545 RBC 3.81* 4.02* 4.17* WBC 12.29* 13.11* 18.25* HB 11.2* 11.8* 12.4* HCT 35.2* 36.8* 38.1* PLT 205 281 271 INR -- -- 1.10 APTT -- -- 24.8 NA 132* 136 138 K 5.0 4.7 3.7 CHLOR 97 103 102 CO2 26 22 23 BUN 27* 18 13 CREAT 1.09 1.29* 1.24* GLUC 126* 141* 177* CA 8.6 8.6 8.5 MG 2.4* 2.0 1.7 ANION 9 11 13 Recent Labs 12/27/19 0630 12/26/19 1740 12/26/19 1645 12/26/19 1457 12/26/19 1422 12/26/19 1409 PH 7.366 7.304* 7.264* < > 7.360 7.356 7.359 PCO2 41.8 46.9* 48.4* < > -- -- -- PO2 78.1* 78.0* 87.0 < > 127.0* 79.0* 77.0* BE -1.4 -3.4* -5.4* < > -- -- -- HCO3 -- -- -- -- 23.0 24.3 24.6 < > = values in this interval not displayed. Assessment/Plan CAD s/p CABG x 4 -wood-lad; isak-om; svg-diag; svg-pda; evh -POD#2 -Continue ASA 162, atorvastatin 80mg, increase metoprolol to 50mg BID -D/c chest tubes -Maintain central line, pacing wires -Heart healthy diet with bowel regimen; nutrition on board -Resume home Lasix of 40mg daily -Pain control with modified ERAS -Ambulate as tolerated -Post thorax vest ? Anticipated Post-op Respiratory Insufficiency -Currently 96% on 4LNC; continue to wean -Scheduled duonebs -Encourage deep breathing, IS, and cough ? Leukocytosis -Likely reactive; afebrile -Trending down 18.25>>13.11>>12.29 -Continue to monitor ? Acute post-op blood-loss anemia -HANDH currently 11.2/35.2; no transfusion at this time -Continue to monitor ? Acute Post-op pain -Continue modified ERAS ? Hyperglycemia -HbA1c: 10.5 -Endo on consult; appreciate recs ? Hypertension -Increase Lopressor to 50mg BID -Home regiment includes amlodipine 10mg and losartan 100mg (consider adding when BB optimized) ? ROBERT -Baseline Cr 0.85 -Currently trending down 1.29 >> 1.09 -Adequate urine OP -Continue to monitor ? DVT ppx -Continue lovenox, SCDs, and russel hose ? GI ppx -Continue protonix ? Resolved -respiratory acidosis -hypotension ? Dispo -Transfer to 4200 in AM Tests/Labs Ordered: 1. Chest X-ray 2. BMP 3. CBC SIGNATURE: Jonathan Krueger PA-C PATIENT NAME: Hilaria Woo DATE: December 28, 2019 TIME: 7:53 AM PAGER/CONTACT #:[id number] ETX [id number] Normal [facility] THERAPY NTon 12-28-2019 THERAPY NT HNO ID: [id number] Author: Janny (PtBerry Pierce Service: Physical Therapy Author Type: Physical Therapist Type: Therapy (PT/OT/Speech/Resp) Filed: 12/28/2019 9:20 AM Note Text: Physical Therapy Evaluation SERVICE DATE: 12/28/2019 SERVICE TIME: 840 to 04 ROOM: [place] [address] Recommended Discharge Disposition: Home Recommended Discharge Disposition Comments: with assist from Anticipated Discharge Needs: Physical Assist at Home Physical Assist at Home for: Cleaning;Laundry;Meals ;Shopping;Transportati on PT Recommendations to Nursing: Ambulate with device;To bathroom;In halls;Transfer to/from chair;OOB for Meals;With assist of 1 person Device: Wheeled Walker PT 6 Clicks Score: 18 Precautions/Activity Restrictions: Sternal;Fall Risk;Cardiac Precaution/Activity Restriction Comments: sternal vest ASSESSMENT : This patient was admitted for CABG, has the past medical history of CAD, obesity, CHF impacting current functional level, as well as the social factors complicating the discharge of multiple stairs to complete at home. This patient is below baseline functioning of able to ambulate independently and works and will benefit from continued skilled therapy in the hospital for treatment of the following body systems/impairments: musculoskeletal, cardiopulmonary (gait, transfers, bed mobility, balance, endurance, safety and strengthening). Patient Disposition at Start of Session: OOB in Chair;Call Gonzales in Reach Patient Disposition at End of Session: OOB in Chair;Call Gonzales in Reach Tolerated Full Session Physical Therapy Problem List: Pain;Safety Deficits;Decreased Activity Tolerance;Decreased Range Of Motion;Decreased Strength;Functional Mobility Impairment;Balance Impaired Patient /Caregiver Goals: Go Home Goals for Plan of Care: Rolling with: Independent Transfer supine to/from sit with: Independent Transfer sit to/from stand with: Independent Ambulate with: Independent Distance: 300ft Device: No Device Goal: able to recall 3/3 sternal precautions Rehab Potential: Excellent PLAN: Treatment Frequency (times per week): 5(2-5) Current admission Treatment Interventions: Education;Strengthenin g;Functional Mobility Training;Balance Training;Neuromuscular Re-education Plan of Care developed with: Patient TREATMENT INTERVENTIONS: Therapy Diagnosis: Reduced mobility-other Interventions Provided: Evaluation;Therapeutic Activity (12447) $ Evaluation-Moderate (55912) Billed Units: 1 unit History and examination of body systems see assessment section above. This patient?s clinical presentation is evolving. The patient required a moderate complexity evaluation. Therapeutic Activity (25370) Treatment Minutes: 8 1 unit Skilled Intervention(s): Education on sternal precautions - no pushing, no pulling, no lifting more than 5-10lbs, no overhead motion, no reaching back. Patient demonstrates fair understanding. Education on sternal precautions during functional mobility - no pushing, reaching forward or behind with upper extremities, use cough pillow to brace sternum when moving or coughing. Patient demonstrates good understanding. Education and cues for appropriate transfers. Instructed patient to cross arms over chest and initiate standing by pushing through bilateral lower extremities and utilizing momentum and forward weight shift as needed. Patient requires contact guard assist and demonstrates good understanding. Cues to back up to surface and feel surface behind legs. Cues to cross arms over chest and bend at waist for bowing motion. Patient requires contact guard assist and demonstrates good understanding. Cues for upright posture during ambulation. Vitals monitored during gait. Cues for deep breathing as appropriate. Cues for pacing as appropriate. Total Timed Code Treatment Minutes: 8 Total Treatment Time (minutes): 23 SUBJECTIVE: Current Hospital Course: Chart reviewed; Patient presents to the hospital with CAD an dis s/p CABGx 4 on 12/26/2019 Reason for Physical Therapy Consult : eval and treat Relevant Past Medical History: CAD, obesity, CHF Patient Report: Patient reports pain in chest area, denies dizziness or lightheadedness during ambulation Home Environment Patient Lives With: Spouse Assistance Available: 24 Hour Entry To Home: Stairs Number Of Stairs Into Home: 3 Number Of Stairs To Bed/Bath: flight Equipment Owned: Cane;Wheeled Walker;Shower Chair Prior Functional Level: Within Functional Limits Prior Functional Level Comments: Patient reports typically active and independent prior to admission. States he still works OBJECTIVE: Range of Motion: WFL Except;ROM Limitation Comments ROM Limitation Comments: within sternal precaution limitations Strength: WFL CURRENT FUNCTIONAL STATUS: Current Functional Mobility Assist Level Additional Information Sit to Stand Contact Guard Assistance Stand to Sit Contact Guard Assistance Gait Contact Guard Assistance Gait Device: (rolling cart CVICU) Gait Distance (feet): 300ft General Deviations/Observation s: Flexed trunk posture;Step length decreased JH-HLM: 8: Walk 250 feet or more Please see discipline specific clinical documentation flowsheet for complete details for this therapy evaluation/treatment. SIGNATURE: Janny Pierce PT PATIENT NAME: Hilaria Woo DATE: December 28, 2019 TIME: 9:17 AM Normal [facility] XR CHEST 1V FRONTALon 2019 XR CHEST 1V FRONTAL * * *Final Report* * * DATE OF EXAM: Dec 28 2019 5:45AM AKX 5290 - XR CHEST 1V FRONTAL / PROCEDURE REASON: Post-operative / post-procedure assessment, asymptomatic * * * * Physician Interpretation * * * * EXAMINATION: CHEST RADIOGRAPH (SINGLE VIEW AP OR PA) CLINICAL HISTORY: Post-operative / post-procedure assessment, asymptomatic MQ: XC1_5 Comparison: Recent prior studies including 12/27/2019 RESULT: Lines, tubes, and devices: Right IJ line and left thoracostomy tube remain in place. The right thoracostomy tube may have been removed. Lungs and pleura: Probable small left pleural effusion. There is atelectasis at the left lung base. No pneumothorax is visualized. Cardiomediastinal silhouette: Stable enlargement. Other: Status post median sternotomy. No acute bony abnormality. IMPRESSION: Probable small left pleural effusion with left basilar atelectasis. No pneumothorax. Framing Machine Tender: PSCB Transcribe Date/Time: Dec 28 2019 7:32A Dictated by : CHARITY MASON MD This examination was interpreted and the report reviewed and electronically signed by: CHARITY MASON MD on Dec 28 2019 7:34AM EST Normal [facility] Basic Metabolic Panelon 04- Anion gap [Moles/Vol] 11 mmol/L Normal 9-18 [facility] Comment on above: Performed By: #### B MP ####[address] [address] Calcium [Mass/Vol] 8.6 mg/dL Normal 8.5-10.2 [facility] Comment on above: Performed By: #### B MP ####[address] [address] Chloride [Moles/Vol] 103 mmol/L Normal 97-105 [facility] Comment on above: Performed By: #### B MP ####[facility] [place], [place] [address] CO2 Blood 22 mmol/L Normal 22-30 [facility] Comment on above: Performed By: #### B MP ####[facility] [place], [place] [address] Creatinine [Mass/Vol] 1.29 mg/dL High 0.73-1.22 [facility] Comment on above: Performed By: #### B MP ####[address] [address] Glucose [Mass/Vol] 141 mg/dL High 74-99 [facility] Comment on above: Result Comment: The Citizen [place] Diabetes Association (ADA) provides guidance for cutoff values for fasting glucose and random glucose. The ADA defines fasting as no caloric intake for at least 8 hours.Fasting plasma glucose results between 100 to 125 mg/dL indicate increased risk for diabetes (prediabetes). Fasting plasma glucose results greater than or equal to 126 mg/dL meet the criteria for diagnosis of diabetes. In the absence of unequivocal hyperglycemia, results should be confirmed by repeat testing. In a patient with classic symptoms of hyperglycemia or hyperglycemic crisis, random plasma glucose results greater than or equal to 200 mg/dL meet the criteria for diagnosis of diabetes. Reference: Standards of Medical Care in Diabetes 2016; Citizen [place] Diabetes Association. Diabetes Care. 2016;39(Suppl 1). Performed By: #### B MP ####[address] [address] Potassium [Moles/Vol] 4.7 mmol/L Normal 3.7-5.1 [facility] Comment on above: Performed By: #### B MP ####[address] [address] Sodium [Moles/Vol] 136 mmol/L Normal 136-144 [facility] Comment on above: Performed By: #### B MP ####[address] [address] Urea nitrogen [Mass/Vol] 18 mg/dL Normal 9-24 [facility] Comment on above: Performed By: #### B MP ####[address] [address] Blood Gas Arterialon 020 FIO2 Value Not Given Normal [facility] Comment on above: Performed By: #### A BG ####[address] [address] Base Excess -1.4 mmol/L Normal -3.0-3.0 [facility] Comment on above: Performed By: #### A BG ####[address] [address] HCO3 (Bld) [Moles/Vol] 23.2 mmol/L Normal 21.0-28.0 [facility] Comment on above: Performed By: #### A BG ####[facility] [place], [place] [address] O2% Sat Arterial 95.1 % Low 96.0-100.0 [facility] Comment on above: Performed By: #### A BG ####[facility] [place], [place] [address] PCO2 Arterial 41.8 mm Hg Normal 35.0-45.0 [facility] Comment on above: Performed By: #### A BG ####[facility] [place], [place] [address] pH Arterial 7.366 Normal 7.350-7.450 [facility] Comment on above: Performed By: #### A BG ####[address] [address] PO2 Arterial 78.1 mm Hg Low 83.0-108.0 [facility] Comment on above: Performed By: #### A BG ####[address] [address] CASE MGT INIT ASSESon 2019 CASE MGT INIT ASSES HNO ID: [id number] Author: Wendy (Rn) KATTY Chavarria Service: ? 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 Last discharge within 30 days: No Advance Directive: Current Advance Directive: None Package Delivery Room Service Runner Attempted to Assist with AD Completion: No Unable to Assist Due To:: (unable to reach pt by phone) Health LiteracyHow often do you need to have someone help you when you read instructions, pamphlets, or other written material from your doctor or pharmacy? : 1 - Never How confident are you filling out medical forms by yourself?: 1 - Extremely If Patient scores > 3 on either question, the following interventions were put into place:: Patient did not score > 3 on either question. Baseline Mental Status Prior to this Illness what was the patient's Baseline Mental Status?: Alert AND Oriented Prior to this illness, has anyone described the patient having any of the following behaviors?: Not Applicable Relationship of the informant to the patient:: Spouse Name of Informant: : Mel Functional Status: Independent Does Patient Currently Receive Any Community Services or Home Care?: None Equipment Prior to Admission: Glucometer;Other: See Comment(BP monitor) SOCIAL: Living Arrangements: Home Lives With: Spouse Financial Resources: EmployedPrimary Contact: Extended Emergency Contact Information Primary Emergency Contact: WooJanie Mobile Relation: Spouse Supportive Patient Contact:: Yes Contact Resources: Family Family Name/Phone: jenniffer Leal Social Needs Food insecurity Worry: Never true Inability: Never true Resources Needed: No Social Needs Financial resource strain: Not hard at all Social Needs Transportation needs Medical: No Non-medical: No Caregiver AssessmentCaregiver is ready, willing and able to meet the patient's needs as recommended by the inter-professional team:: Yes Does the patient have an acute stroke diagnosis, or has the patient had a stroke during this admission?: No Patient's transition needs and plan for meeting these needs: return home with chaim and [facility] Patient's perception of need for this admission: heart surgery Medication Adherance I am convinced of the importance of my prescription medication: 0 - Agree Completely I worry that my prescription medication will do more harm than good to me : 0 - Disagree Completely I feel financially burdened by my [id number] expenses for my prescription medication:: 0 - Disagree Completely Risk Score: 0 Patient is categorized as: Low risk < 2 Are you interested in bedside delivery of your medications? Yes Is Patient Psychosocially Complex?: No ASSESSMENT AND PLAN: Medical Needs: Medical Needs: None Psychosocial Needs: Psychosocial Needs: None FREEDOM OF CHOICE EXPLAINED: [place] of Choice Given: Yes Level of Care Discussed: Home Care Financial Disclosure Provided: Yes Financial Disclosure Comments: [facility] affiliation with [facility] Provider List: Home Care Provider list within the patient's requested geographic area shared with the patient/family: Yes within: 30 miles of zip code: [address] Quality and resource use metrics shared with the patient that are relevant to the patient's goals of care and treatment preferences:: Yes Metrics: Potentially Preventable 30-day Post Discharge Readmission Rates POTENTIAL TRANSITION PLANS Home Care Spoke with pt's by phone. 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 Discussed post CABG disch needs. She states she will be home to assist her at disch and she is agreeable to [facility]. She asked to choose [facility]. Infromed will start with [facility] and if unable to accept will look into other 5 star rated companies. SIGNATURE: Wendy Chavarria RN PATIENT NAME: Hilaria Woo DATE: December 27, 2019 TIME: 2:34 PM PAGER/CONTACT #: [phone] Normal [facility] CG8 Venous Panel (i-STAT)on 12-27-2019 Base Excess (i-STAT) 3.0 mmol/L Normal -2.0 to 3.0 [facility] Comment on above: Performed By: #### C G8IV ####[address] [address] Glucose [Mass/Vol] 187 mg/dL High 70-99 [facility] Comment on above: Performed By: #### C G8IV ####[address] [address] HCO3 (Bld) [Moles/Vol] 27.3 mmol/L Normal 23.0-28.0 [facility] Comment on above: Performed By: #### C G8IV ####[address] [address] Hematocrit (Bld) [Volume fraction] 30 %PCV Low 38-51 [facility] Comment on above: Performed By: #### C G8IV ####[address] [address] Hemoglobin (Bld) [Mass/Vol] 10.2 g/dL Low 12.0-17.0 [facility] Comment on above: Performed By: #### C G8IV ####[place] [address] Ionized Calcium (iSTAT) 4.2 mg/dL Low 4.5-5.3 [facility] Comment on above: Performed By: #### C G8IV ####[address] [address] O2% Sat. (i-STAT) 70.0 % Normal 35.0-85.0 [facility] Comment on above: Performed By: #### C G8IV ####[place] [id number] Oxygen (Bld) [Partial pressure] 37.0 mm Hg Normal 20.0-50.0 [facility] Comment on above: Performed By: #### C G8IV ####[place] [address] PCO2 (i-STAT) 43.7 mm Hg Normal 41.0-51.0 [facility] Comment on above: Performed By: #### C G8IV ####[place] [address] pH (Bld) 7.404 [pH] Normal 7.310-7.410 [facility] Comment on above: Performed By: #### C G8IV ####[place] [id number] Potassium [Moles/Vol] 4.7 mmol/L Normal 3.5-4.9 [facility] Comment on above: Performed By: #### C G8IV ####[place] [id number] Sodium [Moles/Vol] 134 mmol/L Low 138-146 [facility] Comment on above: Performed By: #### C G8IV ####[place] [id number] Total CO2 (i-STAT) 29 mmol/L Normal 24-29 [facility] Comment on above: Performed By: #### C G8IV ####[address] [address] CONSULTon 12-27-2019 CONSULT HNO ID: [id number] Author: Kelly Jolly Service: Endocrinology Author Type: Physician Type: Consults Filed: 12/28/2019 9:10 AM Note Text: DIABETES INITIAL CONSULT PATIENT NAME: Hilaria Woo SERVICE DATE: 12/27/2019 SERVICE TIME: 9:21 AM REASON FOR CONSULT: DM Type 2 REQUESTING PHYSICIAN:Bishop Mack MD 1 [facility] [address] [facility] [address] PRIMARY CARE PHYSICIAN: Josué Rodriguez MD Subjective HISTORY OF PRESENT ILLNESS: Mr. Woo is a 59 year old male presenting as a new patient to me regarding DM Type 2. He was initially diagnosed with diabetes years ago. He does not have a family history of diabetes mellitus . The patient has no known microvascular complications of diabetes. Hilaria reports the following diabetic macrovascular complications: CAD s/p CABG. He has been on insulin lantus 20 units daily. Regarding symptoms of hyperglycemia, he is not experiencing any symptoms such as polyuria, polydipsia, nocturia or rapid weight loss or blurry vision. found to have accelerating anginal symptoms and he was admitted with recent episode of diastolic heart failure. Cardiac cath showed severe CAD now s/p CABGx 4 on 12/26/2019. DIET HEART HEALTHY Recent Labs 12/27/19 0757 12/27/19 0622 12/27/19 0430 12/27/19 0406 12/26/19 1545 GLUC -- -- 141* -- -- 177* GLUCOSEMETER 108* 135* -- 150* < > -- < > = values in this interval not displayed. PAST MEDICAL HISTORY Diagnosis Date - Abnormal cardiac enzyme level - CAD (coronary artery disease) - Cardiomegaly - Chest pain - CHF (congestive heart failure) (HCC) - Diabetes mellitus, type II (HCC) - DVT (deep venous thrombosis) (HCC) - HTN (hypertension) - Hyperlipidemia - Obesity - SOB (shortness of breath) PAST SURGICAL HISTORY Procedure Laterality Date - CARDIAC CATH 11/18/2019 [facility] - ECHO 11/17/2019 [facility] FAMILY HISTORY Problem Relation Age of Onset - Hypertension Mother - Heart disease Father - Hypertension Father Social History Tobacco Use - Smoking status: Never Smoker - Smokeless tobacco: Never Used Substance Use Topics - Alcohol use: Not Currently - Drug use: Never CURRENT MEDICATION: Current Facility-Administered Medications Medication Dose Route Frequency Provider Last Rate Last Dose - bisacodyl 10 mg suppository (DULCOLAX) 10 mg RECTAL DAILY PRN Deborah (Pa) Anjali - polyethylene glycol 3350 17 g packet (MIRALAX, GLYCOLAX) 17 g ORAL DAILY Deborah (Pa) Anjali 17 g at 12/27/19 0812 - senna-docusate 8.6-50 mg 1 tablet (SENNA-S) 1 tablet ORAL BID Deborah (Pa) Anjali 1 tablet at 12/27/19 0812 - metoprolol tartrate (short acting) 25 mg tab(s) (LOPRESSOR) 25 mg ORAL q 12 H Deborah (Pa) Anjali - insulin lispro 8 Units pen (rapid acting) (HumaLOG KWIKPEN) 8 Units SUBCUTANEOUS w MEALS Kelly Ciltea - ipratropium-albuterol 3 mL nebulizer solution (DUONEB) 3 mL INHALATION TID Collin (Industrial Waste Inspector Silverware Buffing Machine Operator) Patchen 3 mL at 12/27/19 0822 - atorvastatin 80 mg tab(s) (LIPITOR) 80 mg ORAL DAILY Collin (Industrial Waste Inspector [employer] Buffing Machine Operator) Patchen 80 mg at 12/26/19 1843 - insulin regular iv infusion 100 units in NaCl 0.9% 100 mL - AK CARD SURG NOMOGRAM 0-12 Units/hr INTRAVENOUS CONTINUOUS Collin (Industrial Waste Inspector [employer] Buffing Machine Operator) Patchen 2 mL/hr at 12/27/19 0800 2 Units/hr at 12/27/19 0800 - insulin regular human iv bolus 10 Units 10 Units INTRAVENOUS PRN Collin (Industrial Waste Inspector Silver[employer] Buffing Machine Operator) Patchen - dextrose 50% in water 25 mL syringe 12.5 g INTRAVENOUS PRN Collin (Industrial Waste Inspector Silver[employer] Buffing Machine Operator) Patchen - potassium chloride iv piggyback 20 mEq/100 mL 20 mEq INTRAVENOUS PRN Collin (Industrial Waste Inspector Silverware Buffing Machine Operator) Patchen 100 mL/hr at 12/26/19 1736 20 mEq at 12/26/19 1736 - magnesium sulfate in water 2 g in sterile water 50 ml 2 g INTRAVENOUS PRN(NO DISPENSE) Collin (Industrial Waste Inspector [employer] Buffing Machine Operator) Patchen 25 mL/hr at 12/27/19 0812 2 g at 12/27/19 0812 - enoxaparin 40 mg injection (LOVENOX) 40 mg SUBCUTANEOUS DAILY Collin (Industrial Waste Inspector [employer] Buffing Machine Operator) Patchen 40 mg at 12/27/19 0812 - ondansetron (PF) 4 mg injection (ZOFRAN) 4 mg INTRAVENOUS q 6 H PRN Collin ([facility]) Patchen - lidocaine 4 % 1 Patch (SALONPAS) 1 Patch TRANSDERMAL DAILY Collin ([facility]) Patchen 1 Patch at 12/27/19 0816 And - lidocaine patch - REMOVE OTHER AT BEDTIME Collin ([facility]) Patchen And - lidocaine - VERIFY PATCH OTHER q 8 H Collin ([facility]) Patchen - magnesium oxide 400 mg tab(s) (MAG-OX) 400 mg ORAL DAILY Collin ([facility]) Patchen 400 mg at 12/27/19 0816 - gabapentin 200 mg cap(s) (NEURONTIN) 200 mg ORAL DAILY Collin ([facility]) Patchen 200 mg at 12/27/19 0816 - NaCl 0.9% 250 mL iv bolus 250 mL INTRAVENOUS PRN Collin ([facility]) Patchen - aspirin 162 mg chewable tab(s) 162 mg ORAL DAILY Collin ([facility]) Patchen 162 mg at 12/27/19 0809 - ceFAZolin 3 g in D5W 100 mL (ANCEF) 3 g INTRAVENOUS q 6 HR Collin ([facility]) Patchen 200 mL/hr at 12/27/19 0540 3 g at 12/27/19 0540 - acetaminophen 1,000 mg tab(s) (TYLENOL) 1,000 mg ORAL q 6 H Collin ([facility]) Patchen 1,000 mg at 12/27/19 0540 - pantoprazole DR 40 mg tab(s) (PROTONIX) 40 mg ORAL DAILY (6 AM) Collin ([facility]) Patchen 40 mg at 12/27/19 0540 - fentaNYL 50 mcg/mL 50 mcg injection (SUBLIMAZE) 50 mcg INTRAVENOUS q 2 H PRN Collin ([facility]) Patchen 50 mcg at 12/27/19 0136 - oxyCODONE IR 5-10 mg tab(s) (ROXICODONE) 5-10 mg ORAL q 3 H PRN Collin ([facility]) Patchen 10 mg at 12/27/19 0809 Allergies As of Date: 12/22/2019 (No Known Allergies) Fully Assessed 12/20/2019 General: no fever, chills or acute changes in weight in the last 6 months Skin: no rashes, pruritis or dry skin Eyes: no blurred or double vision or eye pain Cardiac: as per HPI Pulmonary: as per HPI GI: denies nausea, vomiting, diarrhea or constipation Neuro: denies numbnes/tingling in hands or feet and denies seizures Musc: denies history of upper or lower extremity weakness Endocrine: denies polyuria, polydipsia, nocturia, blurry vision or excessive fatigue Hematology: Negative for anemia, easy bleeding and bruising. Objective PHYSICAL EXAM: BP 145/75 Pulse 78 Temp 37.5 ?C (99.5 ?F) Resp 24 Ht 180.3 cm (5' 11) Wt 149 kg (328 lb 7.8 oz) SpO2 96% BMI 45.81 kg/m2 General: awake, alert Skin: skin color, texture, turgor normal, no rashes or lesions. Head: normocephalic, no masses, lesions, tenderness or abnormalities. Eyes: VIOLA Oropharynx: moist mm Neck: thick; no goiter Heart: RRR without murmur, gallop, or rubs. No ectopy Abdomen: soft, non-tender, positive bowel sounds Extremities: no edema, no calluses or ulcers present. Peripheral Pulses: posterior tibial and doralis pedis pulses 2+ and symmetrical DATA: Diagnostic tests reviewed for today's visit: Most recent labs and imaging results. Impression/Recommendat ions Diabetes mellitus type 2 uncontrolled; with severe complications; HbA1c 10.5; at home on glimepiride, metformin, victoza and lantus 20 units daily; now on iv insulin gtt per CABG protocol at 2 units per hour for glycemic control; add prandial humalog; cont iv insulin gtt today; check BS q 2 hours. Obesity, Class III, BMI >= 40 POA: Unknown Assessment AND Plan: CAD (coronary artery disease) POA: Yes Assessment AND Plan:s/p CABG 12/25 SIGNATURE: Kelly Jolly MD DATE: December 27, 2019 TIME: 9:21 AM Normal [facility] ECG COMPLETEon 12-27-2019 ECG COMPLETE NAME : HILARIA WOO PID : [id number] : 1960 Gender : Male Race : ORD : [id number] Procedure Date : Dec 27 2019 05:34:43 Edit Date : Dec 27 2019 17:53:19 Diagnosis:SINUS RHYTHM WITH 1ST DEGREE A-V BLOCK WITH OCCASIONAL PREMATURE VENTRICULAR COMPLEXES INFERIOR INFARCT (CITED ON OR BEFORE 26-DEC-2019) ABNORMAL ECG WHEN COMPARED WITH ECG OF 26-DEC-2019 15:24, SINUS RHYTHM HAS REPLACED JUNCTIONAL RHYTHM QRS DURATION HAS DECREASED ST ELEVATION NOW PRESENT IN INFERIOR LEADS ST ELEVATION NOW PRESENT IN LATERAL LEADS QT HAS SHORTENED Confirmed by MD ANDERSON VINAYAK ([id number]) on 12/27/2019 5:53:17 PM Ventricular Rate : 82 BPM Atrial Rate : 82 BPM P-R Interval : 210 ms QRS Duration : 98 ms Q-T Interval : 360 ms QTC Calculation(Bazett) : 420 ms P [place] : 41 degrees R [place] : 4 degrees T [place] : 30 degrees Test Reason : Post-OP Location : 6 : [place] [address] Overread By : MD ANDERSON VINAYAK Edited By : MD ANDERSON VINAYAK Referred By : BISHOP MACK Acquired by : RUDY ISLAS [facility] Hemogramon 12-27-2019 Erythrocyte distribution width (RBC) [Ratio] 13.3 % Normal 11.6-14.4 [facility] Comment on above: Performed By: #### P T #### [place] [address] Hematocrit (Bld) [Volume fraction] 36.8 % Low 40.1-51.0 [facility] Comment on above: Performed By: #### P T #### [place] [address] Hemoglobin (Bld) [Mass/Vol] 11.8 g/dL Low 13.7-17.5 [facility] Comment on above: Performed By: #### P T #### [place] [address] MCH (RBC) [Entitic mass] 29.4 pg Normal 25.7-32.2 [facility] Comment on above: Performed By: #### P T #### [place] [address] MCHC (RBC) [Mass/Vol] 32.1 % Low 32.3-36.5 [facility] Comment on above: Performed By: #### P T #### [address] [place] [address] MCV (RBC) [Entitic vol] 91.5 fL Normal 83.2-95.6 [facility] Comment on above: Performed By: #### P T #### [facility] [address] [place] [address] Platelet mean volume (Bld) [Entitic vol] 11.5 fL Normal 8.7-12.0 [facility] Comment on above: Performed By: #### P T #### [facility] [address] [place] [address] Platelets (Bld) [#/Vol] 281 thou/cmm Normal 141-365 [facility] Comment on above: Performed By: #### P T #### [facility] [address] [place] [address] RBC (Bld) [#/Vol] 4.02 mil/cmm Low 4.63-6.08 [facility] Comment on above: Performed By: #### P T #### [facility] [address] [place] [address] RDW SD 44.6 fl Normal 36.1-45.8 [facility] Comment on above: Performed By: #### P T #### [facility] [address] [place] [address] WBC (Bld) [#/Vol] 13.11 thou/cmm High 4.23-9.07 [facility] Comment on above: Performed By: #### P T #### [facility] [address] [place] [address] Magnesium Bloodon 12-27-2019 Magnesium [Mass/Vol] 2.0 mg/dL Normal 1.7-2.3 [facility] Comment on above: Performed By: #### M AG ####[facility] [place] [address] NUTRITIONon 12-27-2019 NUTRITION HNO ID: [id number] Author: Carolin Guerra Service: Nutrition Therapy Author Type: Registered Dietitian Type: Nutrition Filed: 12/27/2019 2:42 PM Note Text: NUTRITION THERAPY INITIAL ASSESSMENT SERVICE DATE: 12/27/2019 SERVICE TIME: 2:01 PM Nutrition Assessment: Recommended Malnutrition Diagnosis: No Malnutrition Identified Nutrition Diagnosis: Problem: Increased nutrient needs Related to: Acute illness As evidenced by: (S/p CABG 12/26/19) Estimated kilocalorie needs: 8471-6001 Calorie Calculation Method: 25-30 kcals/kg Estimated protein needs (grams): 117-156 Grams protein determined by: 1.5-2.0 g/kg Care Plan: Continue current diet Supplements: Impact AR BID for at least 5 days post-op Monitor and Evaluation: Meet greater than 75% of estimated needs;Monitor labs, I/Os, vital signs, weight;Monitor fluid/electrolyte balance;Monitor bowel function Discharge Recommendations: Diet Diet: Heart healthy, carb controlled --------- Reason for Assessment: Consult HPI: 59 year old male with CAD, HTN, DM2. S/p CABG x4 on 12/26/19. Diet advanced 12/26. Intake History: Nutrition Intake Prior to Admission: Greater than 75% estimated energy needs greater than or equal to 3 months Current Diet: DIET HEART HEALTHY Patient reported following drinking Ensure Surgery drinks for 5 days prior to his initial surgery date, however, it was rescheduled. He was able to drink Ensure pre-surgery the night prior to surgery. Agreeable to Impact AR. Discussed benefit. Reports fair appetite sp far, ate well at lunch. Denied any wt or appetite change DIRECTOR TRUST. Anthropometrics: Height: 180.3 cm (5' 11) Weight: (!) 149 kg (328 lb 7.8 oz) Dosing Weight: 78.2 kg (172 lb 6.4 oz)(IBW) Usual Weight: 140 kg (308 lb 10.3 oz) Body mass index is 45.81 kg/m?. Morbidly Obese Weight change percentage over time: Insignficant weight change. +fluid retention post-op. Last Wt 12/26/19 : (!) 149 kg (328 lb 7.8 oz) 12/13/19 : (!) 140.6 kg (310 lb) 11/23/19 : (!) 139.7 kg (308 lb) Physical Exam: Subcutaneous fat loss: No fat loss Muscle loss: No muscle loss Potential micronutrient deficiency: No deficiency identified Edema/Ascites: Generalized GI Symptoms: None Functional Status: Not related to malnutrition status Potential Signs of Inflammation: Hyperglycemia;Leukocyt osis;Chronic condition;Acute post-operative SIGNATURE: Carolin Guerra RD, LD PATIENT NAME: Hilaria Woo DATE: December 27, 2019 TIME: 2:01 PM PAGER: [phone] [facility] PLAN OF CAREon 12-27-2019 PLAN OF CARE HNO ID: [id number] Author: Angela Mancia (Marketing Technologist) Service: ? Author Type: ? Type: Plan of Care Filed: 12/27/2019 2:51 PM Note Text: SERVER PROGRAMMER BEDSIDE DELIVERY SURVEY 1. Patient to use [facility] Bedside Delivery - YES Insurance Information as follows: 2. Insurance card on file - YES 3. Credit card for payment - N/A Patient elected to use bedside delivery. No prescriptions currently written. Please call pharmacy bedside delivery at [phone] or [phone] when patient has discharge orders and prescriptions are ready to be filled and delivered prior to discharge. Thank you. Angela Mancia (Vizimax) [facility] PROGRESSon 12-27-2019 PROGRESS HNO ID: [id number] Author: Moiz Dumont Service: Pulmonary Disease Author Type: Physician Type: Progress Notes Filed: 12/27/2019 1:35 PM Note Text: MICU - PROGRESS NOTE SERVICE DATE: December 27, 2019 Admission Date: 12/26/2019 AGE: [age] year old LOS: 1 days Subjective Extubated overnight, no new events. On low flow NC, has not ambulated yet. C/o chest pain, no dyspnea/cough. Off pressors. Objective PROBLEMS: ACTIVE PROBLEM LIST Obesity, Class III, BMI >= 40 Cad (Coronary Artery Disease) S/P Cabg X 4 PAST MEDICAL HISTORY Diagnosis Date - Abnormal cardiac enzyme level - CAD (coronary artery disease) - Cardiomegaly - Chest pain - CHF (congestive heart failure) (HCC) - Diabetes mellitus, type II (HCC) - DVT (deep venous thrombosis) (HCC) - HTN (hypertension) - Hyperlipidemia - Obesity - SOB (shortness of breath) PAST SURGICAL HISTORY Procedure Laterality Date - CARDIAC CATH 11/18/2019 [facility] - ECHO 11/17/2019 [facility] Social History Tobacco Use - Smoking status: Never Smoker - Smokeless tobacco: Never Used Substance Use Topics - Alcohol use: Not Currently - Drug use: Never VITAL SIGNS (last 24hrs min/max): Temp Av.1 ?C (98.8 ?F) Min: 36.1 ?C (97 ?F) Max: 37.7 ?C (99.9 ?F) Pulse Av.2 Min: 62 Max: 83 Arterial BP 1 Min: 79/46 Max: 147/73 Cuff BP Min: 89/62 Max: 108/58 Pain Level: 7 Vital signs reviewed. BP 89/62 Pulse 70 Temp (Src) 97.7 (Axillary) Resp 18 Ht 5' 11 (1.80m) Wt 328 lb 7.8 oz (149.0kg) SpO2 98% BMI 45.83 kg/(m2). O2 Therapy: Nasal Cannula, Liters: (S) 4 Temp (24hrs), Av.1 ?C (98.8 ?F), Min:36.1 ?C (97 ?F), Max:37.7 ?C (99.9 ?F) NET FLUID BALANCE Intake/Output Summary (Last 24 hours) at 12/27/2019 1325 Last data filed at 12/27/2019 1030 Gross per 24 hour Intake 1359 ml Output 1770 ml Net -411 ml MEDICATIONS Current Facility-Administered Medications Medication Dose Route Frequency - bisacodyl 10 mg suppository (DULCOLAX) 10 mg RECTAL DAILY PRN - polyethylene glycol 3350 17 g packet (MIRALAX, GLYCOLAX) 17 g ORAL DAILY - senna-docusate 8.6-50 mg 1 tablet (SENNA-S) 1 tablet ORAL BID - metoprolol tartrate (short acting) 25 mg tab(s) (LOPRESSOR) 25 mg ORAL q 12 H - insulin lispro 8 Units pen (rapid acting) (HumaLOG KWIKPEN) 8 Units SUBCUTANEOUS w MEALS - ipratropium-albuterol 3 mL nebulizer solution (DUONEB) 3 mL INHALATION TID - atorvastatin 80 mg tab(s) (LIPITOR) 80 mg ORAL DAILY - insulin regular iv infusion 100 units in NaCl 0.9% 100 mL - [place] CARD SURG NOMOGRAM 0-12 Units/hr INTRAVENOUS CONTINUOUS - insulin regular human iv bolus 10 Units 10 Units INTRAVENOUS PRN - dextrose 50% in water 25 mL syringe 12.5 g INTRAVENOUS PRN - potassium chloride iv piggyback 20 mEq/100 mL 20 mEq INTRAVENOUS PRN - magnesium sulfate in water 2 g in sterile water 50 ml 2 g INTRAVENOUS PRN(NO DISPENSE) - enoxaparin 40 mg injection (LOVENOX) 40 mg SUBCUTANEOUS DAILY - ondansetron (PF) 4 mg injection (ZOFRAN) 4 mg INTRAVENOUS q 6 H PRN - lidocaine 4 % 1 Patch (SALONPAS) 1 Patch TRANSDERMAL DAILY And - lidocaine patch - REMOVE OTHER AT BEDTIME And - lidocaine - VERIFY PATCH OTHER q 8 H - magnesium oxide 400 mg tab(s) (MAG-OX) 400 mg ORAL DAILY - gabapentin 200 mg cap(s) (NEURONTIN) 200 mg ORAL DAILY - NaCl 0.9% 250 mL iv bolus 250 mL INTRAVENOUS PRN - aspirin 162 mg chewable tab(s) 162 mg ORAL DAILY - ceFAZolin 3 g in D5W 100 mL (ANCEF) 3 g INTRAVENOUS q 6 HR - acetaminophen 1,000 mg tab(s) (TYLENOL) 1,000 mg ORAL q 6 H - pantoprazole DR 40 mg tab(s) (PROTONIX) 40 mg ORAL DAILY (6 AM) - fentaNYL 50 mcg/mL 50 mcg injection (SUBLIMAZE) 50 mcg INTRAVENOUS q 2 H PRN - oxyCODONE IR 5-10 mg tab(s) (ROXICODONE) 5-10 mg ORAL q 3 H PRN Lines, Drains, and Airways Line Central Line Quadruple Lumen 12/26/19 1200 Right Neck 1 day Peripheral 12/26/19 0735 Right Antecubital 16 Gauge 1 day Drain Chest Tube 12/26/19 28 Fr Tube #4 1 day Chest Tube 12/26/19 1328 Left Pleural 28 Fr Tube #2 less than 1 day Chest Tube 12/26/19 1328 Mediastinal Tube #1 less than 1 day Chest Tube 12/26/19 1328 Right Pleural 28 Fr Tube #3 less than 1 day PHYSICAL EXAM PERFORMED: General: no acute distress, conversational, in chair Cardiovascular: Regular rhythm Respiratory: Reduced breath sounds bilat, chest tube with small bloody output Abdomen: Soft and Nontender Extremities: Edema- No Neurologic: Awake, oriented, Alert, Follows commands and Moving all extremities Respiratory/Nursing Documentation: O2 Therapy: Nasal Cannula (12/27/19 1156) HEMODYNAMIC DATA: Reviewed NUTRITION: Enteral Feeds: Yes PO diet DATA: Diagnostic tests reviewed for today's visit, films/specimens were personally reviewed by me: Most recent labs and imaging results. CXR: 1. ?Status post extubation. 2. ?Low lung volumes with bibasilar atelectasis. LABS: Recent Labs 12/27/19 0430 12/26/19 1545 WBC 13.11* 18.25* RBC 4.02* 4.17* HB 11.8* 12.4* HCT 36.8* 38.1* MCV 91.5 91.4 PLT 281 271 GLUC 141* 177* BUN 18 13 CREAT 1.29* 1.24* NA 136 138 K 4.7 3.7 CHLOR 103 102 CO2 22 23 CA 8.6 8.5 PTSEC -- 11.9 APTT -- 24.8 INR -- 1.10 MG 2.0 1.7 ABG: Recent Labs 12/27/19 0630 12/26/19 1740 12/26/19 1645 PH 7.366 7.304* 7.264* PO2 78.1* 78.0* 87.0 PCO2 41.8 46.9* 48.4* Assessment/Plan IMPRESSION: ? S/p CABG x 4 on 12/26/19 ? Acute anticipated post op respiratory insufficiency ? Multivessel CAD ? Leucocytosis, likely reactive, improving ? DM on insulin gtt ? HTN ? MMP ? Never smoker PLAN: ? Wean oxygen ? Chest tubes per CTVS ? Pain control ? DVT px: lovenox ? cefazolin ? Early ambulation/IS ? ICU monitoring ? Supportive care SIGNATURE: Moiz Dumont MD PATIENT NAME: Hilaria Woo DATE: December 27, 2019 TIME: 1:25 PM Normal [facility] PROGRESS HNO ID: [id number] Author: Deborah Alba (Pa) Service: Cardiovascular Surgery Author Type: Physician Setter [employer] Type: Progress Notes Filed: 12/27/2019 10:43 AM Note Text: CARDIOTHORACIC SURGERY POSTOP PROGRESS NOTE SERVICE DATE: 12/27/2019 SERVICE TIME: 6:55 AM Subjective S/P SURGERY: Procedure(s) (LRB): BYPASS GRAFT ARTERY CORONARY ON-PUMP THREE CORONARY ARTERIAL GRAFTS (N/A) DATE OF SURGERY: 12/26/2019 POSTOP DAY #1 LOS: 1 HPI: This is a 59 year old man referred for evaluation of MV CAD and for consideration for MV CABG. He has no previous cardiac or vascular history. He has been developing progressive exertional dyspnea and chest tightness. He was admitted to [facility] last week with dyspnea and found to be in CHF with come pulmonary congestion and lower extremity edema. He responded well to medical therapy including diuresis. Left heart cath showed severe MV CAD including severe lesions in the LAD, ramus, and circumflex branches with an occluded RCA filling via left to right collaterals. Echo shows EF 65%, mild LVH, and mild . Risk factors for CAD include: +FH (brother); HTN; HLD; obesity; DM (poorly controlled). ? INTERVAL EVENTS / PERTINENT ROS: Patient seen this AM in chair. Pain is controlled with modified ERAS. Denies chest pain, abdominal pain and shortness of breath. No events overnight. Objective Admission Weight: (!) 149 kg (328 lb 7.8 oz) BP 145/75 Pulse 82 Temp 37.6 ?C (99.7 ?F) Resp 24 Ht 180.3 cm (5' 11) Wt (!) 149 kg (328 lb 7.8 oz) SpO2 94% BMI 45.81 kg/m? Body surface area is 2.73 meters squared. Min/Max/Average Temperature AND Blood Pressure: Temp (24hrs), Av.1 ?C (98.7 ?F), Min:36.1 ?C (97 ?F), Max:37.7 ?C (99.9 ?F) No data recorded. No data recorded. Intake/Output Summary (Last 24 hours) at 12/27/2019 0654 Last data filed at 12/27/2019 0600 Gross per 24 hour Intake 737 ml Output 895 ml Net -158 ml TELEMETRY: normal sinus rhythm PHYSICAL EXAM: General Appearance: Well developed and well nourished appearance. No acute distress. Midsternal AND SVG incision dry AND intact, without redness, drainage or edema. Head/Eyes: Sclera clear, normal conjunctiva. EOMI Lungs: respiratory effort: normal Heart: regular rhythm, S1, S2 normal and pacing wires present Peripheral Vascular/Arteries: pulses intact Abdomen: soft, non-tender and bowel sounds present Neurologic/Psychiatric : Oriented to person, place, time. Normal affect. No gross focal neurologic deficits. Extremities: edema: non-pitting Lines, Drains, and Airways Line Arterial Line/Sheath 12/26/19 0826 Left Radial less than 1 day Central Line Quadruple Lumen 12/26/19 1200 Right Neck less than 1 day Peripheral 12/26/19 0735 Right Antecubital 16 Gauge less than 1 day Drain Chest Tube 12/26/19 28 Fr Tube #4 1 day Chest Tube 12/26/19 1328 Left Pleural 28 Fr Tube #2 less than 1 day Chest Tube 12/26/19 1328 Mediastinal Tube #1 less than 1 day Chest Tube 12/26/19 1328 Right Pleural 28 Fr Tube #3 less than 1 day Indwelling Urinary Catheter 12/26/19 0845 Temperature Monitoring 16 Fr less than 1 day DATA: Diagnostic tests reviewed for today's visit: Chest X-RAY: poor quality image; anticipated post op atelectasis b/l Recent Labs 12/27/19 0430 12/26/19 1545 12/26/19 1457 RBC 4.02* 4.17* -- WBC 13.11* 18.25* -- HB 11.8* 12.4* -- HCT 36.8* 38.1* 34* PLT 281 271 -- INR -- 1.10 -- APTT -- 24.8 -- NA 136 138 138 K 4.7 3.7 3.5 CHLOR 103 102 -- CO2 22 23 -- BUN 18 13 -- CREAT 1.29* 1.24* -- GLUC 141* 177* -- CA 8.6 8.5 -- MG 2.0 1.7 -- ANION 11 13 -- Recent Labs 12/27/19 0630 12/26/19 1740 12/26/19 1645 12/26/19 1457 12/26/19 1422 12/26/19 1409 PH 7.366 7.304* 7.264* < > 7.360 7.356 7.359 PCO2 41.8 46.9* 48.4* < > -- -- -- PO2 78.1* 78.0* 87.0 < > 127.0* 79.0* 77.0* BE -1.4 -3.4* -5.4* < > -- -- -- HCO3 -- -- -- -- 23.0 24.3 24.6 < > = values in this interval not displayed. Assessment/Plan CAD s/p CABG x 4 -POD#1 -wood-lad; isak-om; svg-diag; svg-pda; evh -Continue ASA 162, atorvastatin 80mg, start metoprolol 25mg BID -d/c pressors -continue abx prophylaxis -maintain central line, pacing wires and chest tubes -remove arterial line and pimentel catheter -advance diet -pain control with modified ERAS -start bowel regimen -ambulate as tolerated -post thorax vest Anticipated Post-op Respiratory Insufficiency -currently 96% on 5LNC; continue to wean -scheduled duonebs -encourage deep breathing, IS, and cough Leukocytosis -likely reactive -trending down 18.25>>13.11 -continue to monitor Acute post-op blood-loss anemia -HANDH currently 11.8/36.8; no transfusion at this time -continue to monitor Acute Post-op pain -continue modified ERAS Hyperglycemia -HbA1c: 10.5 -endo on consult Hypertension -start metoprolol 25 BID -home regiment includes amlodipine 10mg and losartan 100mg (consider adding when BB optimized) ROBERT -Baseline Cr 0.85 -currently trending up 1.24>>1.29 -adequate urine OP -continue to monitor DVT ppx -continue lovenox, SCDs, and russel hose GI ppx -continue protonix Resolved -respiratory acidosis -hypotension Dispo -remain in CVICU Tests/Labs Ordered: 1. Chest X-ray 2. BMP 3. CBC SIGNATURE: Deborah Alba PA-C PATIENT NAME: Hilaria Woo DATE: December 27, 2019 TIME: 6:54 AM PAGER/CONTACT #:[phone] ETX [id number] Normal [facility] THERAPY NTon 12-27-2019 THERAPY NT HNO ID: [id number] Author: Janny (Irma Pierce Service: Physical Therapy Author Type: Physical Therapist Type: Therapy (PT/OT/Speech/Resp) Filed: 12/27/2019 2:56 PM Note Text: PHYSICAL THERAPY MISSED VISIT SERVICE DATE: 12/27/2019 SERVICE TIME: 1455 to 1455 ROOM: [id number] Attempted Evaluation. Patient not seen due to (patient just finished ambulating with RN). SIGNATURE: Janny Pierce PT PATIENT NAME: Hilaria Woo DATE: December 27, 2019 TIME: 2:56 PM Normal [facility] THERAPY NT HNO ID: [id number] Author: Felisha Borjar/Richard Castañeda Service: Occupational Therapy Author Type: Occupational Therapist Type: Therapy (PT/OT/Speech/Resp) Filed: 12/27/2019 10:57 AM Note Text: Occupational Therapy Evaluation SERVICE DATE: 12/27/2019 SERVICE TIME: 1000 to 1035 ROOM: [id number] Recommended Discharge Disposition: Home Recommended Discharge Disposition Comments: anticipate patient will meet self care goals prior to d/c Anticipated Discharge Needs: Physical Assist at Home Physical Assist at Home for: Cleaning;Laundry;Meals ;Safety;Self Care;Shopping;Transpor tation OT Recommendations to Nursing: To Bathroom for ADL?s /and or Toileting;OOB for meals;With assist of 1 person Equipment: Wheeled Walker OT 6 Clicks Score: 16 Precautions/Activity Restrictions: Sternal;Fall Risk;Lines/Tubes/Drain s Precaution/Activity Restriction Comments: sternal vest ASSESSMENT: Patient presents with deficits in feeding, grooming, UE bathing/dressing, LE bathing/dressing, functional transfers, functional mobility, decreased safety awareness, and decreased insight to deficits after CABG x4. Requires skilled OT to maximize independence with ADLs and functional transfers. Patient Disposition at Start of Session: OOB in Chair;Call Gonzales in Reach Patient Disposition at End of Session: OOB in Chair;Call Gonzales in Reach Tolerated Full Session Occupational Therapy Problem List: Safety Deficits;Impaired Self Care;Decreased Activity Tolerance;Functional Mobility Impairment;Balance Impaired Patient /Caregiver Goals: Go Home Goals for Plan of Care: Grooming with: Independent(standing at the sink) Upper Body Bathing with: Stand By Assistance Upper Body Dressing with: Stand By Assistance(sternal vest) Lower Body Bathing with: Modified Independent Lower Body Dressing with: Modified Independent Toilet Hygiene with: Modified Independent Chair Transfer with: Supervision Toilet Transfer with: Supervision Car Transfer with: Supervision Tolerate (minutes of functional activity): 35 Functional Activity with: Supervision Demonstrate Competence With Education with: Supervision(safety/cathy rnal precautions ) Rehab Potential: Good PLAN: Treatment Frequency (times per week): 5(2-5) Current admission Treatment Interventions: Education;Self Care / Home Management;Energy Conservation Training;Functional Mobility Training;Balance Training Plan of Care developed with: Patient TREATMENT INTERVENTIONS: Therapy Diagnosis: Reduced mobility-other;Decreas ed activities of daily living (ADL);Muscle Weakness (generalized);Unsteadi ness on feet;General symptoms and signs-other Interventions Provided: Evaluation;Self Correction Management (39810) $ Evaluation-Moderate (09870) Billed Units: 1 unit OT Evaluation Moderate Complexity: Occupational Profile - Extended review of patient's medical record completed including patient's physical, cognitive, and psycho-social history (please see current hospital course of evaluation). Occupational Performance - Pt presents with deficits in feeding, grooming, UE bathing/dressing, LE bathing/dressing, functional transfers, functional mobility, decreased safety awareness, decreased insight into deficits Complexity in Clinical Decision Making - The extent of clinical reasoning was moderate, several treatment options present for the patient, need for modification during the evaluation was minimal/moderate, comorbidities affecting occupational performance: CAD Self Correction Management (11139) Treatment Minutes: 15 1 unit Skilled Intervention(s): . Educated on the role of OT in the acute care setting. Instructed in post-op instructions during ADLs after CABG. Discussed sternal precautions during ADLs and functional transfers. Instructed in energy conservation throughout, provided rest breaks as needed. Provided instruction, cuing and facilitation for upper body dressing using effective technique with sternal precaution. Advised on the importance of NOT reaching back for coat/shirt/vest. Provided instruction, cuing and facilitation for lower body dressing using the figure four technique to avoid excessive leaning/reaching forward. Education in proper don/doff technique and wear schedule of sternal vest. Provided verbal and demonstrative instruction on proper sequence for getting in and out of the car and shower within sternal restrictions. Discussed the benefit and value of using a shower seat to complete bathing activities in a safe manner after surgery. Also instructed on how to wash hair within given restrictions. Facilitated toilet transfer, educated on hand and body placement and the importance of hold a pillow and/or sternal vest with descent into surface. Total Timed Code Treatment Minutes: 15 Total Treatment Time (minutes): 35 SUBJECTIVE: Current Hospital Course: Chart reviewed; . 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 I walk fast! 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 OBJECTIVE: Cognition/Communicatio n Deficits Responsiveness: Alert Follows Commands: 2-step Commands Executive Function Deficits: Safety Awareness Safety Awareness Deficit: Minimal impairment CURRENT FUNCTIONAL STATUS: Current Activities of Daily Living Assist Level Feeding Independent Grooming Set Up Bathing Upper Body Minimal Assistance Bathing Lower Body Maximal Assistance Dressing Upper Body Minimal Assistance Dressing Lower Body Moderate Assistance Toileting Moderate Assistance Functional Mobility Assist Level Rolling Supine to Sit Sit to Supine Scooting Sit to Stand Contact Guard Assistance Stand to Sit Contact Guard Assistance Bed to Chair Toilet/Commode Contact Guard Assistance Functional Mobility Contact Guard Assistance Wheeled Walker Functional Mobility Comments: functional mobility in hallway Range of Motion: WFL Strength: (not tested due to sternal precautions) Balance: Static Standing;Dynamic Standing Static Standing Balance: Fair Patient able to maintain balance with handhold support, may require occasional minimal assistance Dynamic Standing Balance: Fair Patient accepts minimal challenge, able to maintain balance while turning head/trunk Please see discipline specific clinical documentation flowsheet for complete details for this therapy evaluation/treatment. SIGNATURE: Felisha Castañeda OTR/L PATIENT NAME: Hilaria Woo DATE: December 27, 2019 TIME: 10:55 AM Normal [facility] XR CHEST 1V FRONTALon 2019 XR CHEST 1V FRONTAL * * *Final Report* * * DATE OF EXAM: Dec 27 2019 4:21AM AKX [id number] - XR CHEST 1V FRONTAL / PROCEDURE REASON: Post-operative / post-procedure assessment, asymptomatic * * * * Physician Interpretation * * * * EXAMINATION: CHEST RADIOGRAPH (SINGLE VIEW AP OR PA) CLINICAL HISTORY: Post-operative / post-procedure assessment, asymptomatic MQ: XC1_5 Comparison: Previous studies with the most recent performed one day ago RESULT: Lines, tubes, and devices: Numerous leads and wires overlie the chest. The previously noted endotracheal tube is not currently visualized and it appears that the enteric tube has also been removed. Right central venous catheter remains in place as does a bilateral thoracostomy tube. Lungs and pleura: Low lung volumes. Atelectasis is noted at each lung base. There is no pneumothorax. Cardiomediastinal silhouette: Normal cardiomediastinal silhouette. Other: Intact sternotomy wires. No acute bony abnormality. IMPRESSION: 1. Status post extubation. 2. Low lung volumes with bibasilar atelectasis. Framing Machine Tender: PSCB Transcribe Date/Time: Dec 27 2019 7:05A Dictated by : CHARITY MASON MD This examination was interpreted and the report reviewed and electronically signed by: CHARITY MASON MD on Dec 27 2019 7:07AM EST Normal [facility] ACT Arterial Panel (i-STAT)o n 12-26-2019 Kaolin ACT ( i-STAT) 109 sec Normal 74-137 [facility] Comment on above: Performed By: #### U RIN #### [place] [address] ANES Kandy 12-26-2019 ANES POST HNO ID: [id number] Author: Bishop Hardy Service: Anesthesiology Author Type: Physician Type: Anesthesia PostOp Filed: 12/26/2019 3:54 PM Note Text: POST ANESTHESIA EVALUATION NOTE SERVICE DATE: 12/26/2019 SERVICE TIME: 3:53 PM : 1960 Vitals: 12/26/19 0654 Temp: 37 ?C (98.6 ?F) 12/26/19 0654 BP: 145/75 12/26/19 0654 Pulse: 77 12/26/19 0654 Resp: 16 12/26/19 0654 SpO2: 96% Validated Vital Signs: yes No significant anesthesia events. POST ANES STATUS: Stable. On vent in ICU debrief with surgeon unremarkable. Report to RN No further anesthesia follow up required Other Remarks: SIGNATURE: Bishop Hardy MD PATIENT NAME: Hilaria Woo DATE: December 26, 2019 TIME: 3:53 PM PAGER/CONTACT #: Ambrocio [facility] ANES PREOPon 12-26-2019 ANES PREOP HNO ID: [id number] Author: Josué Ge Service: Anesthesiology Author Type: Physician Type: Anesthesia PreOp Filed: 12/26/2019 7:38 AM Note Text: ANESTHESIOLOGY DAY OF SURGERY NOTE SERVICE DATE: 12/26/2019 SERVICE TIME: 7:37 AM : 1960 Procedure(s) (LRB): BYPASS GRAFT ARTERY CORONARY ON-PUMP THREE CORONARY ARTERIAL GRAFTS (N/A) Surgeon(s): Bishop Mack Estimated body mass index is 43.24 kg/m? as calculated from the following: Height as of 12/13/19: 180.3 cm (5' 11). Weight as of 12/13/19: 140.6 kg (310 lb). Most recent hematocrit and potassium results: Hematocrit 42.1 12/13/2019 Potassium 3.9 12/13/2019 ANES DOS/PREOP NOTE: Vitals: 12/26/19 0654 BP: 145/75 Pulse: 77 Resp: 16 Temp: 37 ?C (98.6 ?F) SpO2: 96% There is no problem list on file for this patient. PAST MEDICAL HISTORY Diagnosis Date - Abnormal cardiac enzyme level - CAD (coronary artery disease) - Cardiomegaly - Chest pain - CHF (congestive heart failure) (HCC) - Diabetes mellitus, type II (HCC) - DVT (deep venous thrombosis) ([facility]) - HTN (hypertension) - Hyperlipidemia - Obesity - SOB (shortness of breath) PAST SURGICAL HISTORY Procedure Laterality Date - CARDIAC CATH 11/18/2019 [facility] - ECHO 11/17/2019 [facility] FAMILY HISTORY Problem Relation Age of Onset - Hypertension Mother - Heart disease Father - Hypertension Father Social History: Social History Tobacco Use - Smoking status: Never Smoker - Smokeless tobacco: Never Used Substance Use Topics - Alcohol use: Not Currently - Drug use: Never No current facility-administered medications on file prior to encounter. Current Outpatient Medications on File Prior to Encounter Medication Sig - insulin glargine,hum.rec.anlog (BASAGLAR KWIKPEN U-100 INSULIN SUBCUTANEOUS) Inject 20 Units subcutaneously daily at bedtime. - liraglutide (VICTOZA) 0.6 mg/ 0.1 ml subcutaneous pen injector Inject 1.8 mg subcutaneously once daily. - aspirin 81 mg chewable tablet Take 81 mg by mouth once daily. - furosemide (LASIX) 40 mg tablet Take 1 tablet by mouth once daily. - metoprolol succinate ER (TOPROL XL) 25 mg 24 hr tablet Take 50 mg by mouth once daily. - IPRATROPIUM BROMIDE INHALATION Inhale 1 Surprise as instructed once daily. - acarbose (PRECOSE) 100 mg tablet Take 100 mg by mouth three times daily with meals. - amLODIPine (NORVASC) 10 mg tablet Take 10 mg by mouth once daily. - atorvastatin (LIPITOR) 80 mg tablet Take 80 mg by mouth once daily. - glimepiride (AMARYL) 2 mg tablet Take 2 mg by mouth daily with breakfast. - indapamide (LOZOL) 1.25 mg tablet Take 1.25 mg by mouth once daily. - Levocetirizine 5 mg tablet Take 5 mg by mouth once daily. - metFORMIN (GLUCOPHAGE) 1,000 mg tablet Take 1,000 mg by mouth twice daily with meals. - temazepam (RESTORIL) 15 mg Take 15 mg by mouth daily at bedtime. - gabapentin (NEURONTIN) 100 mg capsule Take 2 capsules by mouth once daily for 1 day. Take morning of surgery - ACCU-CHEK GUIDE test strip USE TO CHECK BLOOD SUGAR UP TO 3 TIMES A DAY - ACCU-CHEK FASTCLIX LANCET DRUM lancets USE TO CHECK BLOOD SUGAR UP TO 3 TIMES A DAY - gabapentin (NEURONTIN) 100 mg capsule Take 2 capsules by mouth one time only for 1 dose. - fluticasone-emollient no.65 0.05 % ktot Apply 1 Surprise to affected area twice daily. - losartan (COZAAR) 100 mg tablet Take 100 mg by mouth once daily. - testosterone cypionate (DEPO-TESTOSTERONE) 200 mg/mL injection Inject intramuscularly. Every 2 months Current Facility-Administered Medications Medication Dose Route Frequency Provider Last Rate Last Dose - ceFAZolin 3 g in D5W 100 mL (ANCEF) 3 g INTRAVENOUS ONCE Deborah (Pa) Anjali - cold induction cardioplegia solution 500 mL MISCELLANEOUS ONE TIME Bishop A Lahorra - maintenance cardioplegia solution 1,000 mL MISCELLANEOUS ONE TIME Bishop Lermahorrmalissa - heparin 3,000 Units in NaCl 0.9% 500 mL irrigation 3,000 Units IRRIGATION ONE TIME Bishop Mack - PHENYLephrine 20 mg in NaCl 0.9% 250 mL (YAMILKA-SYNEPHRINE) 25-300 mcg/min INTRAVENOUS ONE TIME Bishop Mack - aminocaproic acid 25 g in NaCl 0.9% 250 mL (AMicAR) 1 g/hr INTRAVENOUS ONE TIME Bishop Colóna - dexmedetomidine 400 mcg in NaCl 0.9% 100 mL (PRECEDEX) 0.2-0.7 mcg/kg/hr (Order-Specific) INTRAVENOUS ONE TIME Bishop Colóna - EPINEPHrine 4 mg in NaCl 0.9% 250 mL 0.5-10 mcg/min INTRAVENOUS ONE TIME Bishop Leonardo Lahorra - insulin regular iv infusion 100 units in NaCl 0.9% 100 mL - AK CARD SURG NOMOGRAM 0-12 Units/hr INTRAVENOUS ONE TIME Bishop Leonardo Lahorra - nitroglycerin 100 mg in D5W 250 mL 5-20 mcg/min INTRAVENOUS ONE TIME Bishop Leonardo Lahorra - NORepinephrine 16 mg in NaCl 0.9% 250 mL (LEVOPHED) 0-20 mcg/min INTRAVENOUS ONE TIME Bishop Leonardo Lahorra - PHENYLephrine iv infusion 10 mg in NaCl 0.9% 250 mL (YAMILKA-SYNEPHRINE) 0-100 mcg/min INTRAVENOUS ONE TIME Bishop Osunarra Allergies: ALLERGIES No Known Allergies DOS EXAM: Adequate NPO status: Yes Anesthetic risks, benefits, alternatives, personnel and consent discussed: Yes Patient agrees to proceed: Yes Previous Anesthesia: No history of adverse event. Airway Assessment: MP 2; Neck ROM: Full ROM without neurologic symptoms; Airway Evaluation: No significant abnormalities Symptoms of Sleep Apnea: None Dentition: Teeth intact Additional Physical Exam: Lungs: Patient health status unchanged since recent history and physical. See history and physical for exam findings. Cardiac: Patient health status unchanged since recent history and physical. See history and physical for exam findings. Additional Pertinent Findings: N/A Blood Products: Not anticipated for this procedure. Anesthetic Plan: General, Standard ASA Monitors, A line, CVP, TANK Pain Management Plan: Parenteral or Oral ASA Class: 4 Other Medical Problems: None Chronic Beta Ronen medication administered within 24 hours: N/A I have interviewed and examined the patient. I have reviewed the medical record and/or the pre-anesthesia evaluation, pertinent labs, and test results. Significant changes in the patient's condition since the History and Physical, not otherwise documented in primary service progress notes: No This contains updated information obtained within 48 hours of Surgery/Procedure. SIGNATURE: Josué Ge MD PATIENT NAME: Hilaria Woo DATE: December 26, 2019 TIME: 7:37 AM CSN: [id number] Normal [facility] Activated PTTon 12-26-2019 aPTT Coag (Bld) [Time] 24.8 s Normal 23.0-32.4 [facility] Comment on above: Result Comment: Unfr actionated Heparin Therapeutic Ranges: Standard Heparin Nomogram: 53 to 78 seconds (anti-Xa level of 0.3 to 0.7 U/mL) Low Dose/ACS Nomogram: 49 to 67 seconds (anti-Xa level of 0.2 to 0.5 U/mL) Stroke Treatment Nomogram: 49 to 67 seconds (anti-Xa level of 0.2 to 0.5 U/mL) Note: The APTT therapeutic range has been determined for the current lot of laboratory APTT reagent in use throughout the [facility]. Performed By: #### P T #### [place] [address] BRIEF OP NOTon 12-26-2019 BRIEF OP NOT HNO ID: [id number] Author: Bishop Mack Service: Cardiac Surgery Author Type: Physician Type: Brief Op Note Filed: 12/26/2019 3:01 PM Note Text: CARDIOTHORACIC BRIEF OP NOTE LOG ID: [id number] SURGERY/PROCEDURE DATE: 12/26/2019 INCISION/PROCEDURE START TIME: 9:14 AM INCISION CLOSE/PROCEDURE END TIME: SURGEON(S) AND LENS POLISHER(S): Surgeon(s) and Role: * Bishop Mack - Primary Physician Setter [employer]: Deborah Alba (Pa) Circulation Crew Leader: Kushal Hester SA PROCEDURES AND ANESTHESIA: Procedure(s) and Anesthesia Type: * BYPASS GRAFT ARTERY CORONARY ON-PUMP THREE CORONARY ARTERIAL GRAFTS - General Great Saphenous Vein, Left , Percutaneous endoscopic Internal Thoracic Artery, Bilateral, Open cabg x 4 (wood-lad; isak-om; svg-diag; svg-pda; evh) ANESTHESIA: General BRIEF FINDINGS: cardiomegaly normal LV funciton pre and post op excellent graft flows ESTIMATED BLOOD LOSS: 250 ml SPECIMENS: None COMPLICATIONS: None PREOPERATIVE DIAGNOSIS: coronary artery disease POSTOPERATIVE DIAGNOSIS: coronary artery disease SIGNATURE: Bishop Mack MD PATIENT NAME: Hilaria Woo DATE: December 26, 2019 TIME: 3:00 PM PAGER/CONTACT #: [phone] Normal [facility] Basic Metabolic Panelon 04-2 Anion gap [Moles/Vol] 13 mmol/L Normal 9-18 [facility] Comment on above: Performed By: #### P T #### [facility] [address] [place], [place] [address] Calcium [Mass/Vol] 8.5 mg/dL Normal 8.5-10.2 [facility] Comment on above: Performed By: #### P T #### [facility] [address] [place], [place] [address] Chloride [Moles/Vol] 102 mmol/L Normal 97-105 [facility] Comment on above: Performed By: #### P T #### [facility] [address] [place], [place] [address] CO2 Blood 23 mmol/L Normal 22-30 [facility] Comment on above: Performed By: #### P T #### [facility] [address] [place], [place] [address] Creatinine [Mass/Vol] 1.24 mg/dL High 0.73-1.22 [facility] Comment on above: Performed By: #### P T #### [facility] [address] [place], [place] [address] Glucose [Mass/Vol] 177 mg/dL High 74-99 [facility] Comment on above: Result Comment: The Citizen [place] Diabetes Association (ADA) provides guidance for cutoff values for fasting glucose and random glucose. The ADA defines fasting as no caloric intake for at least 8 hours.Fasting plasma glucose results between 100 to 125 mg/dL indicate increased risk for diabetes (prediabetes). Fasting plasma glucose results greater than or equal to 126 mg/dL meet the criteria for diagnosis of diabetes. In the absence of unequivocal hyperglycemia, results should be confirmed by repeat testing. In a patient with classic symptoms of hyperglycemia or hyperglycemic crisis, random plasma glucose results greater than or equal to 200 mg/dL meet the criteria for diagnosis of diabetes. Reference: Standards of Medical Care in Diabetes 2016; Citizen [place] Diabetes Association. Diabetes Care. 2016;39(Suppl 1). Performed By: #### P T #### [facility] [address] [place] [address] Potassium [Moles/Vol] 3.7 mmol/L Normal 3.7-5.1 [facility] Comment on above: Performed By: #### P T #### [facility] [address] [place] [address] Sodium [Moles/Vol] 138 mmol/L Normal 136-144 [facility] Comment on above: Performed By: #### P T #### [facility] [address] [place] [address] Urea nitrogen [Mass/Vol] 13 mg/dL Normal 9-24 [facility] Comment on above: Performed By: #### P T #### [facility] [address] [place] [address] Blood Gas Arterialon 020 Base Excess -3.4 mmol/L Low -3.0-3.0 [facility] Comment on above: Performed By: #### P T #### [facility] [address] [place] [address] HCO3 (Bld) [Moles/Vol] 22.7 mmol/L Normal 21.0-28.0 [facility] Comment on above: Performed By: #### P T #### [facility] [address] [place] [address] O2% Sat Arterial 93.6 % Low 96.0-100.0 [facility] Comment on above: Performed By: #### P T #### [facility] [address] [place] [address] PCO2 Arterial 46.9 mm Hg High 35.0-45.0 [facility] Comment on above: Performed By: #### P T #### [facility] [address] [place] [address] pH Arterial 7.304 Low 7.350-7.450 [facility] Comment on above: Performed By: #### P T #### [facility] [address] [place] [address] PO2 Arterial 78.0 mm Hg Low 83.0-108.0 [facility] Comment on above: Performed By: #### P T #### [facility] [address] [place] [address] FIO2 35 % Normal [facility] Comment on above: Performed By: #### P T #### [facility] [address] [place] [address] Base Excess -5.4 mmol/L Low -3.0-3.0 [facility] Comment on above: Performed By: #### P T #### [facility] [address] [place] [address] HCO3 (Bld) [Moles/Vol] 21.5 mmol/L Normal 21.0-28.0 [facility] Comment on above: Performed By: #### P T #### [facility] [address] [place] [address] O2% Sat Arterial 95.5 % Low 96.0-100.0 [facility] Comment on above: Performed By: #### P T #### [facility] [address] [place] [address] PCO2 Arterial 48.4 mm Hg High 35.0-45.0 [facility] Comment on above: Performed By: #### P T #### [facility] [address] [place] [address] pH Arterial 7.264 Low 7.350-7.450 [facility] Comment on above: Performed By: #### P T #### [facility] [address] [place] [address] PO2 Arterial 87.0 mm Hg Normal 83.0-108.0 [facility] Comment on above: Performed By: #### P T #### [facility] [address] [place] [address] FIO2 50 % Normal [facility] Comment on above: Performed By: #### P T #### [facility] [address] [place] [address] FIO2 Value Not Given Normal [facility] Comment on above: Performed By: #### U RIN #### [facility] [address] [place] [address] Base Excess -4.7 mmol/L Low -3.0-3.0 [facility] Comment on above: Performed By: #### U RIN #### [facility] [address] [place], [place] [address] HCO3 (Bld) [Moles/Vol] 22.5 mmol/L Normal 21.0-28.0 [facility] Comment on above: Performed By: #### U RIN #### [facility] [address] [place] [address] O2% Sat Arterial 94.6 % Low 96.0-100.0 [facility] Comment on above: Performed By: #### U RIN #### [facility] [address] [place] [address] PCO2 Arterial 53.5 mm Hg High 35.0-45.0 [facility] Comment on above: Performed By: #### U RIN #### [facility] [address] [place] [address] pH Arterial 7.248 Low 7.350-7.450 [facility] Comment on above: Performed By: #### U RIN #### [facility] [address] [place] [address] PO2 Arterial 91.2 mm Hg Normal 83.0-108.0 [facility] Comment on above: Performed By: #### U RIN #### [facility] [address] [place] [address] CG8 Arterial Panel (i-STAT)o n 12-26-2019 Base Excess (i-STAT) 3.0 mmol/L Normal -2.0 to 3.0 [facility] Comment on above: Performed By: #### U RIN #### [facility] [address] [place] [address] Glucose [Mass/Vol] 158 mg/dL High 70-99 [facility] Comment on above: Performed By: #### U RIN #### [facility] [address] [place] [address] HCO3 (Bld) [Moles/Vol] 27.2 mmol/L High 22.0-26.0 [facility] Comment on above: Performed By: #### U RIN #### [facility] [address] [place] [address] Hematocrit (Bld) [Volume fraction] 34 %PCV Low 38-51 [facility] Comment on above: Performed By: #### U RIN #### [facility] [address] [place] [address] Hemoglobin (Bld) [Mass/Vol] 11.6 g/dL Low 12.0-17.0 [facility] Comment on above: Performed By: #### U RIN #### [place] [address] Ionized Calcium (iSTAT) 4.5 mg/dL Normal 4.5-5.3 [facility] Comment on above: Performed By: #### U RIN #### [place] [address] O2% Sat. (i-STAT) 96.0 % Normal 95.0-98.0 [facility] Comment on above: Performed By: #### U RIN #### [place] [address] Oxygen (Bld) [Partial pressure] 79.0 mm Hg Low 80.0-105.0 [facility] Comment on above: Performed By: #### U RIN #### [place] [address] PCO2 (i-STAT) 41.0 mm Hg Normal 35.0-45.0 [facility] Comment on above: Performed By: #### U RIN #### [place] [address] pH (Bld) 7.430 [pH] Normal 7.350-7.450 [facility] Comment on above: Performed By: #### U RIN #### [place] [address] Potassium [Moles/Vol] 4.1 mmol/L Normal 3.5-4.9 [facility] Comment on above: Performed By: #### U RIN #### [facility] [address] [place], [place] [address] Sodium [Moles/Vol] 137 mmol/L Low 138-146 [facility] Comment on above: Performed By: #### U RIN #### [facility] [address] [place], [place] [address] Total CO2 (i-STAT) 28 mmol/L High 23-27 [facility] Comment on above: Performed By: #### U RIN #### [facility] [address] [place], [place] [address] CONSULTon 12-26-2019 CONSULT HNO ID: [id number] Author: Moiz Dumont Service: Pulmonary Disease Author Type: Physician Type: Consults Filed: 12/26/2019 4:36 PM Note Text: CRITICAL CARE CONSULT NOTE SERVICE DATE: 12/26/2019 SERVICE TIME: 4:25 PM REASON FOR CONSULT: S/P Surgery REQUESTING PHYSICIAN: Dr Mack? ADMITTING PROVIDER: Bishop Mack SERVICE DATE: 12/26/2019 SERVICE TIME: 4:25 PM Admission Date: 12/26/2019 AGE: [age] year old LOS: 0 days Subjective 59/M with MV CAD (severe lesions in the LAD, ramus, and circumflex branches with an occluded RCA filling via left to right collaterals. Echo shows EF 65%, mild LVH, and mild ) underwent CABG x 4. Was on high FiO2 during the surgery, otherwise no acute complications. Currently recovering from anesthesia, cough +. On FiO2 80%, PEEP 5. On epinephrine 4 mcg/min. Small output from chest tube. Objective PROBLEMS: ACTIVE PROBLEM LIST Obesity, Class III, BMI >= 40 Cad (Coronary Artery Disease) PAST MEDICAL HISTORY Diagnosis Date - Abnormal cardiac enzyme level - CAD (coronary artery disease) - Cardiomegaly - Chest pain - CHF (congestive heart failure) (HCC) - Diabetes mellitus, type II (HCC) - DVT (deep venous thrombosis) (HCC) - HTN (hypertension) - Hyperlipidemia - Obesity - SOB (shortness of breath) PAST SURGICAL HISTORY Procedure Laterality Date - CARDIAC CATH 11/18/2019 [facility] - ECHO 11/17/2019 [facility] Social History Tobacco Use - Smoking status: Never Smoker - Smokeless tobacco: Never Used Substance Use Topics - Alcohol use: Not Currently - Drug use: Never VITAL SIGNS (last 24hrs min/max): Temp Av.4 ?C (97.5 ?F) Min: 36.1 ?C (97 ?F) Max: 37 ?C (98.6 ?F) Pulse Av.2 Min: 62 Max: 77 Arterial BP 1 Min: 108/42 Max: 131/53 Cuff BP Min: 145/75 Max: 145/75 Pain Level: 9 Vital signs reviewed. BP 145/75 Pulse 66 Temp 97 Resp 24 Ht 5' 11 (1.80m) Wt 328 lb 7.8 oz (149.0kg) SpO2 96% BMI 45.83 kg/(m2). O2 Therapy: Ventilator, %FIO2: 60 Temp (24hrs), Av.4 ?C (97.5 ?F), Min:36.1 ?C (97 ?F), Max:37 ?C (98.6 ?F) NET FLUID BALANCE Intake/Output Summary (Last 24 hours) at 12/26/2019 1625 Last data filed at 12/26/2019 1600 Gross per 24 hour Intake ? Output 160 ml Net -160 ml MEDICATIONS Current Facility-Administered Medications Medication Dose Route Frequency - ipratropium-albuterol 3 mL nebulizer solution (DUONEB) 3 mL INHALATION TID - atorvastatin 80 mg tab(s) (LIPITOR) 80 mg ORAL DAILY - insulin regular iv infusion 100 units in NaCl 0.9% 100 mL - AK CARD SURG NOMOGRAM 0-12 Units/hr INTRAVENOUS CONTINUOUS - insulin regular human iv bolus 10 Units 10 Units INTRAVENOUS PRN - dextrose 50% in water 25 mL syringe 12.5 g INTRAVENOUS PRN - potassium chloride iv piggyback 20 mEq/100 mL 20 mEq INTRAVENOUS PRN - magnesium sulfate in water 2 g in sterile water 50 ml 2 g INTRAVENOUS PRN(NO DISPENSE) - acetaminophen 650 mg tab(s) (TYLENOL) 650 mg ORAL q 6 H PRN - lactated ringers infusion 50 mL/hr INTRAVENOUS CONTINUOUS - EPINEPHrine 4 mg in NaCl 0.9% 250 mL 0.5-10 mcg/min INTRAVENOUS CONTINUOUS - PHENYLephrine iv infusion 10 mg in NaCl 0.9% 250 mL (YAMILKA-SYNEPHRINE) 0-100 mcg/min INTRAVENOUS CONTINUOUS - ondansetron (PF) 4 mg injection (ZOFRAN) 4 mg INTRAVENOUS q 6 H PRN - lidocaine 4 % 1 Patch (SALONPAS) 1 Patch TRANSDERMAL DAILY - magnesium oxide 400 mg tab(s) (MAG-OX) 400 mg ORAL DAILY - gabapentin 200 mg cap(s) (NEURONTIN) 200 mg ORAL DAILY - NaCl 0.9% 250 mL iv bolus 250 mL INTRAVENOUS PRN - aspirin 162 mg chewable tab(s) 162 mg ORAL DAILY - ceFAZolin 3 g in D5W 100 mL (ANCEF) 3 g INTRAVENOUS q 6 HR - morphine 2-4 mg injection 2-4 mg INTRAVENOUS q 4 H PRN - fentaNYL 50 mcg/mL 50 mcg injection (SUBLIMAZE) 50 mcg INTRAVENOUS ONCE - midazolam (PF) 2 mg injection (VERSED) 2 mg INTRAVENOUS PRN Lines, Drains, and Airways Line Arterial Line/Sheath 12/26/19 0826 Left Radial less than 1 day Central Line Quadruple Lumen 12/26/19 1200 Right Neck less than 1 day Peripheral 12/26/19 0735 Right Antecubital 16 Gauge less than 1 day Drain Chest Tube 12/26/19 1328 Left Pleural 28 Fr Tube #2 less than 1 day Chest Tube 12/26/19 1328 Mediastinal Tube #1 less than 1 day Chest Tube 12/26/19 1328 Right Pleural 28 Fr Tube #3 less than 1 day Chest Tube 12/26/19 28 Fr Tube #4 less than 1 day Indwelling Urinary Catheter 12/26/19 0845 Temperature Monitoring 16 Fr less than 1 day PHYSICAL EXAM PERFORMED: Cardiovascular: Regular rhythm Respiratory: Reduced breath sounds bilat %FIO2 Min: 60 Max: 80 Abdomen: Soft and Nontender Extremities: Edema- No Neurologic: Sedated Respiratory/Nursing Documentation: O2 Therapy: Ventilator (12/26/19 1600) HEMODYNAMIC DATA: Reviewed NUTRITION: Enteral Feeds: No NPO DATA: Diagnostic tests reviewed for today's visit, films/specimens were personally reviewed by me: Most recent labs and imaging results. LABS: Recent Labs 12/26/19 1545 12/26/19 1457 WBC 18.25* -- RBC 4.17* -- HB 12.4* -- HCT 38.1* 34* MCV 91.4 -- PLT 271 -- NA -- 138 K -- 3.5 PTSEC 11.9 -- APTT 24.8 -- INR 1.10 -- ABG: Recent Labs 12/26/19 1548 12/26/19 1457 12/26/19 1422 PH 7.248* 7.360 7.356 PO2 91.2 127.0* 79.0* PCO2 53.5* -- -- CXR: post surgical changes, ETT, chest tube, central line. Scattered mild infiltrates, no significant effusion. Assessment/Plan IMPRESSION: Critical Care Documentation: The patient has the following organ/system impairment(s): s/p CABG x 4 ? S/p CABG x 4 on 12/26/19 ? Acute anticipated post op respiratory insufficiency ? Multivessel CAD ? Leucocytosis, likely reactive ? DM ? HTN ? MMP ? Never smoker CRITICAL CARE PLAN: ? Continue mechanical ventilation, vent settings changed ? Wean FiO2 ? Wean PEEP when fiO2 down to 40% ? Wean pressors as tolerated ? Chest tubes per CTVS ? Pain control ? Sedation: precedex, wean as able ? DVT px ? Early ambulation/IS ? ICU monitoring ? Supportive care This patient has a high probability of sudden, clinically significant deterioration, which requires the highest level of physician preparedness to intervene urgently. I managed/supervised life or organ supporting interventions that required frequent physician assessment. I devoted my full attention to the direct care of this patient for the amount of time indicated below. Time I spent with family or surrogate(s) is included only if the patient was incapable of providing the necessary information or participating in medical decision making. Time devoted to teaching is not included. Discussed with staff/patient/family Time spent providing critical care services: 40 minutes excluding procedures. SIGNATURE: Moiz Dumont MD PATIENT NAME: Hilaria Woo DATE: December 26, 2019 TIME: 4:25 PM Normal [facility] ECG COMPLETEon 12-26-2019 ECG COMPLETE NAME : HILARIA WOO PID : [id number] : 1960 Gender : Male Race : ORD : [id number] Procedure Date : Dec 26 2019 15:24:50 Edit Date : Dec 27 2019 17:40:39 Diagnosis:NORMAL SINUS RHYTHM WITH WITH OCCASIONAL PREMATURE VENTRICULAR COMPLEXES INFERIOR INFARCT , AGE UNDETERMINED PROLONGED QT ABNORMAL ECG NO PREVIOUS ECGS AVAILABLE Confirmed by MD MONICA, LUKE ([id number]) on 12/27/2019 5:40:37 PM Ventricular Rate : 69 BPM Atrial Rate : 0 BPM QRS Duration : 118 ms Q-T Interval : 474 ms QTC Calculation(Bazett) : 507 ms R [place] : 21 degrees T [place] : 46 degrees Test Reason : Post-OP Location : 6 : [place] [address] Overread By : MD ANDERSON VINAYAK Edited By : MD ANDERSON VINAYAK Referred By : BISHOP MACK Acquired by : ALANNA PASTRANA Normal [facility] Fibrinogenon 12-26-2019 Fibrinogen 273 mg/dL Normal 200-400 [facility] Comment on above: Performed By: #### U RIN #### [facility] [address] [place] [address] Hemogramon 12-26-2019 Erythrocyte distribution width (RBC) [Ratio] 13.0 % Normal 11.6-14.4 [facility] Comment on above: Performed By: #### P T #### [place] [address] Hematocrit (Bld) [Volume fraction] 38.1 % Low 40.1-51.0 [facility] Comment on above: Performed By: #### P T #### [place] [address] Hemoglobin (Bld) [Mass/Vol] 12.4 g/dL Low 13.7-17.5 [facility] Comment on above: Performed By: #### P T #### [place] [address] MCH (RBC) [Entitic mass] 29.7 pg Normal 25.7-32.2 [facility] Comment on above: Performed By: #### P T #### [place] [address] MCHC (RBC) [Mass/Vol] 32.5 % Normal 32.3-36.5 [facility] Comment on above: Performed By: #### P T #### [place] [id number] MCV (RBC) [Entitic vol] 91.4 fL Normal 83.2-95.6 [facility] Comment on above: Performed By: #### P T #### [place] [address] Platelet mean volume (Bld) [Entitic vol] 11.0 fL Normal 8.7-12.0 [facility] Comment on above: Performed By: #### P T #### [facility] [address] [place], [place] [address] Platelets (Bld) [#/Vol] 271 thou/cmm Normal 141-365 [facility] Comment on above: Performed By: #### P T #### [facility] [address] [place] [address] RBC (Bld) [#/Vol] 4.17 mil/cmm Low 4.63-6.08 [facility] Comment on above: Performed By: #### P T #### [facility] [address] [place], [place] [address] RDW SD 43.2 fl Normal 36.1-45.8 [facility] Comment on above: Performed By: #### P T #### [facility] [address] [place], [place] [address] WBC (Bld) [#/Vol] 18.25 thou/cmm High 4.23-9.07 [facility] Comment on above: Performed By: #### P T #### [facility] [address] [place], [place] [address] Magnesium Bloodon 12-26-2019 Magnesium [Mass/Vol] 1.7 mg/dL Normal 1.7-2.3 [facility] Comment on above: Performed By: #### P T #### [address] [address] NURSING PROGon 12-26-2019 NURSING PROG HNO ID: [id number] Author: Kyung (Rn) KATTY Bowles Service: ? Author Type: Registered Nurse Type: Nursing Progress Note Filed: 12/26/2019 7:05 AM Note Text: Mepeplex applied. Normal [facility] OPERATIVE NOon 12-26-2019 OPERATIVE NO HNO ID: [id number] Author: Bishop Mack Service: Cardiac Surgery Author Type: Physician Type: Operative Report Filed: 12/27/2019 7:44 AM Note Text: [facility] - Operative Report HILARIA WOO : 1960 AGE: 59. SEX: M PATIENT TYPE: I HOSP SVC: ORCA LOCATION: [id number] ATTENDING PHYSICIAN: BISHOP MACK CSN NUMBER: [id number] DATE OF SURGERY/PROCEDURE: 12/26/2019 INCISION/PROCEDURE START TIME: 9:14 AM INCISION CLOSE/PROCEDURE END TIME: 3:01 PM PREOPERATIVE DIAGNOSIS: Severe multivessel coronary disease, history of recent diastolic heart failure. POSTOPERATIVE DIAGNOSIS: Severe multivessel coronary disease, history of recent diastolic heart failure. SURGEON: Bishop Mack MD LENS POLISHER: 1. Mr. Hester. 2. Ms. Alba. SURGERY/PROCEDURE: Coronary bypass graft x4 with left internal mammary artery and left anterior descending artery; free right internal mammary graft to the first obtuse marginal branch; reversed saphenous vein graft to diagonal branch and posterior descending artery; with endoscopic vein harvesting. ANESTHESIA: Performed under general anesthesia. The cross-clamp time and the perfusion are per the perfusion record. FINDINGS: Included the following, rather significant cardiomegaly, but normal left ventricular function pre and postop. Very severe diffuse calcific atherosclerotic coronary disease; excellent graft flows on flow probe analysis. COMPLICATIONS: No complications. SPECIMENS: No specimens. ESTIMATED BLOOD LOSS: 250 cc. INDICATIONS: This is a 59-year-old man, found to have accelerating anginal symptoms and he was admitted with recent episode of diastolic heart failure. He was found to have on catheterization, severe lesions involving the proximal to mid LAD, large diagonal branch, and also the first obtuse marginal branch, ramus branch. The right coronary fills via collateral vessels which completely occluded. On echo, he has normal ejection fraction with LVH. We recommended myocardial revascularization. The procedure, intended benefits, potential complications, and staff indications were discussed at length. All questions were answered. He understood and consented to proceed. DESCRIPTION OF PROCEDURE: Preoperative huddle was performed. He was brought to the operating room and placed on the operating table in supine position. Central venous and radial artery accesses were obtained. He was given general anesthesia, intubated. A TANK probe was placed. A Pimentel catheter was placed. He was prepped and draped sterilely. He received perioperative IV antibiotics, beta-blockade, aspirin, IV heparin. A time-out was performed. Echocardiography was performed, revealed the aforementioned findings. There were no significant valvular lesions and LV function was normal. A median sternotomy was made. The left and right internal mammary arteries were harvested as skeletonized grafts. The right internal mammary was taken as a free graft. They both had excellent pulsatile flow. Simultaneously, portions of the left greater saphenous vein were harvested in endoscopic fashion. Vein was of good caliber, good quality, but thin. The sternal renewable energy consultant was placed in the wound and a pericardial well was made. The ascending aorta was free of any palpable atherosclerotic disease. LV function appeared well preserved, but this was a very large heavy heart. He was heparinized and cannulated for cardiopulmonary bypass via the aorta and right atrium. After adequate ACT was achieved, cardiopulmonary bypass was initiated and the ventilation was stopped. The aortic root was vented. The cross-clamp was applied and the heart was arrested with 1500 cc of cold antegrade and retrograde blood cardioplegia. Thereafter, boluses of cardioplegia were administered every 15 to [address] We attempted to place a retrograde cardioplegia cannula, but we were unsuccessful on the attempts and so banded this. The aforementioned distal anastomoses were completed with running 7-0 Prolene suture end-to-side. Prior to the completion of each anastomosis, each anastomosis was patent to 1 mm probe. Proximal anastomoses for the vein grafts were constructed with running 6-0 Prolene suture end-to-side. The free right internal mammary graft was anastomosed to the proximal portion of the vein graft to the diagonal branch end-to-side with running 7-0 Prolene suture. The left internal mammary artery was anastomosed to LAD with running 7-0 Prolene suture end-to-side QAMARKER] with the exception of the LAD were rather small and very heavily calcified. The cross-clamp was then removed and the heart regained spontaneous bradycardic rhythm. We noted that there was some bleeding from the graft to the obtuse marginal branch and so we re-clamped and we rested briefly to repair that. He also had some degloving of fat from the lateral wall due to the heavy weight of this heart and so this area was then cauterized and treated with CoSeal. The cross- clamp was then again removed. The heart regained spontaneous sinus rhythm. Ventilation was resumed. We then weaned from bypass on low-dose inotropic support, decannulated, and reversed heparin with protamine. TANK confirmed normal LV function. Graft flows excellent on flow probe analysis. Hemostasis was then very carefully obtained. The sternum was closed with wires with a combination of Biomet sternal plate x3. Left pleural tube, right pleural tube, and 2 mediastinal tubes have been placed and secured to the skin. RV pacing wires were then placed and secured to the skin. The pectoralis fascia, subcutaneous tissue, and skin were closed in layers with absorbable suture. Dry sterile dressings were applied. Sponge counts and needle counts were correct. The patient was then returned to CVICU in good condition. Bishop Mack MD JAL:[id number] /[id number] Normal [facility] PROGRESSon 12-26-2019 PROGRESS HNO ID: [id number] Author: Collin Buenrostro (Aprn Cnp) Service: Cardiac Surgery Author Type: Nurse Practitioner Type: Progress Notes Filed: 12/26/2019 4:17 PM Note Text: CARDIOTHORACIC SURGERY POSTOP PROGRESS NOTE SERVICE DATE: 12/26/2019 SERVICE TIME: 2:45 PM Subjective S/P SURGERY: Procedure(s) (LRB): BYPASS GRAFT ARTERY CORONARY ON-PUMP THREE CORONARY ARTERIAL GRAFTS (N/A) DATE OF SURGERY: 12/26/2019 POSTOP DAY #0 LOS: lumbosacral orthosis INTERVAL EVENTS: Seen and assessed patient upon arrival to the CVICU. Patient was intubated and on hemodynamic support with an epinephrine gtt. Review of Systems Review of Systems Unable to perform ROS: intubated Objective Admission Weight: (!) 149 kg (328 lb 7.8 oz) BP 145/75 Pulse 77 Temp 37 ?C (98.6 ?F) Resp 16 Ht 180.3 cm (5' 11) Wt (!) 149 kg (328 lb 7.8 oz) SpO2 96% BMI 45.81 kg/m? Body surface area is 2.73 meters squared. Min/Max/Average Temperature AND Blood Pressure: Temp (24hrs), Av ?C (98.6 ?F), Min:37 ?C (98.6 ?F), Max:37 ?C (98.6 ?F) Systolic (24hrs), Av , Min:145 , Max:145 Diastolic (24hrs), Av, Min:75, Max:75 No intake or output data in the 24 hours ending 12/26/19 1614 TELEMETRY: normal sinus rhythm PHYSICAL EXAM: General: No acute distress. Skin: No rash on chest, arms or legs. Warm, dry. Head/Eyes: Sclera clear, normal conjunctiva. PERRL Neck: No JVD. Supple. Lungs: Normal respiratory effort. Clear lungs without rhonchi, rales, wheezing. Heart: Normal PMI. No lifts or thrills. Regular rate and rhythm. Normal S1, S2. No S3. No S4. No murmurs. No rubs. Peripheral Vascular/Arteries: Carotid pulse normal without bruit. No abdominal bruits. No femoral bruits or hematoma. DP/Radial pulses normal. Abdomen: Soft abdomen, nontender, nondistended without mass. No hepatosplenomegaly. Normal bowel sounds. Musculoskeletal: No kyphoscoliosis. No joint deformities. Extremities: No clubbing or cyanosis. Generalized edema. Warm digits. Neurologic/Psychiatric : No gross focal neurologic deficits. Follows commands Lines, Drains, and Airways Line Arterial Line/Sheath 12/26/19 0826 Left Radial less than 1 day Central Line Quadruple Lumen 12/26/19 1200 Right Neck less than 1 day Peripheral 12/26/19 0735 Right Antecubital 16 Gauge less than 1 day Drain Chest Tube 12/26/19 1328 Left Pleural 28 Fr Tube #2 less than 1 day Chest Tube 12/26/19 1328 Mediastinal Tube #1 less than 1 day Chest Tube 12/26/19 1328 Right Pleural 28 Fr Tube #3 less than 1 day Chest Tube 12/26/19 28 Fr Tube #4 less than 1 day Indwelling Urinary Catheter 12/26/19 0845 Temperature Monitoring 16 Fr less than 1 day Labs Recent Labs 12/26/19 1545 12/26/19 1457 12/26/19 1422 12/26/19 1409 RBC 4.17* -- -- -- WBC 18.25* -- -- -- HB 12.4* -- -- -- HCT 38.1* 34* 33* 33* PLT 271 -- -- -- NA -- 138 137* 137* K -- 3.5 3.4* 3.4* Recent Labs 12/26/19 1548 12/26/19 1457 12/26/19 1422 12/26/19 1409 PH 7.248* 7.360 7.356 7.359 PCO2 53.5* -- -- -- PO2 91.2 127.0* 79.0* 77.0* BE -4.7* -- -- -- HCO3 -- 23.0 24.3 24.6 DAILY CVICU CHECKLIST Restraints needed: No Ventilator: See above under PULMONARY GI Prophylaxis: Yes VTE Prophylaxis: Pharmacologic Yes VTE Prophylaxis: Mechanical: Yes Glycemia Control: Insulin infusion per ICU protocol Is Nutrition at target levels: No Pacemaker: Temporary Epicardial: Yes - V wires Permanent Pacemaker and/or ICD: No Line infection prevention: Can CVC, PAC or arterial line be removed: No Continued need for urinary catheter: Yes - clinical indication: Patient post major surgery requiring fluid balance and input and output measurement. Pressure ulcers: No Reviewed Labs: Yes Reviewed Meds: Yes Plan reviewed with assigned RN: Yes Discharge needs assessed: Yes Assessment/Plan Coronary Artery Disease - S/p CABG x 4 (WOOD-LAD, ISAK-OM, SVG-Diag, SVG-PDA) with Dr. Mack on 12/26/2019 - POD #: 0 - Currently hemodynamically stable on Epi gtt at 2 mcg/min - Use PRN IVFB as needed - MS CTx2 and Pleural Chest tubes x2 - Ventricular Pacing wires (not being utilized) - Will start BB therapy when off vasopressor support - Continue ATB with cefazolin 3g q6h - ASA 162 mg ordered ? S/p CABG x4 - As above ? Hypotension - Anticipated in the immediate post op period - Continue on vasopressor support as above - Will wean as tolerated ? Anticipated Post-Op Respiratory Insufficiency - Patient is currently maintained on the ventilator - Pulmonary critical care is following - Wean towards early extubation protocol - Home ipratropium scheduled ? Respiratory Acidosis - pH 7.257 intra op (pC02 53.6/p02 286) - Post op pH 7.24 - Patient asynchronous with vent, administered pain medications AND sedation to achieve light sedation - Vent changes made with increased PEEP - Pulmonary Critical Care following Acute Post-Op Pain - ERAS Protocol ? Anemia - Likely 2/2 blood loss - Hbg/Hct 11/34.6 intra-op - Will check post-op along with coagulation factors (Fibrinogen AND Plt d/t intra-op bleeding) Leukocytosis - WBC 18.25 - Likely reactive - Will continue to monitor and observe for fever ? Hyperglycemia - Patient is uncontrolled diabetic at home - HbA1c: 10.5 - Continue insulin gtt per protocol - Consult endo for further recommendations AND management ? Dyslipidemia - Restarting home Atorvastatin 80mg ? At risk for Nutritional Deficiency - Nutrition Consulted ? GI Ppx - IV Protonix - Will switch to PO once extubated ? DVT Ppx - SCDs - Russel Hose - Enoxaparin 40mg starting tomorrow ? Dispo: Remain in CVICU Tests/Labs Ordered: 1. Chest X-ray 2. BMP 3. CBC 4. Potassium SIGNATURE: Collin Buenrostro APRN.CNP PATIENT NAME: Hilaria Woo DATE: December 26, 2019 TIME: 2:54 PM PAGER/CONTACT #:[phone] This patient has a high probability of sudden, clinically significant deterioration, which requires the highest level of provider preparedness to intervene urgently. I managed/supervised life or organ supporting interventions that required frequent provider assessment. I devoted my full attention to the direct care of this patient for the amount of time indicated below. Time I spent with family or surrogate(s) is included only if the patient was incapable of providing the necessary information or participating in medical decision making. Discussed with Dr. Mack, CVICU Bedside RN Time spent providing critical care services: 65 minutes [facility] PT EDon 12-26-2019 PT ED HNO ID: [id number] Author: Kyung (Rn) KATTY Bowles Service: ? Author Type: Registered Nurse Type: Patient Education Filed: 12/26/2019 6:59 AM Note Text: PRE OP LEARNING ASSESSMENT PROCEDURE/SURGERY: READINESS TO LEARN COGNITIVE ABILITY: Alert and oriented MOTIVATION TO LEARN: Eager FAMILY SUPPORT: Unable to assess - Family not present PATIENT LEARNS BEST BY: Individual Instruction FACTORS AFFECTING LEARNING: None PHYSICAL LIMITATIONS AFFECTING LEARNING: None Electronically Signed By: Kyung Bowles RN In Department: [place] SURGERY OR Normal [facility] [place] 12-26-2019 Platelets (Bld) [#/Vol] 259 thou/cmm Normal 141-365 [facility] Comment on above: Performed By: #### U RIN #### [facility] [address], [place] [address] Protimeon 12-26-2019 INR Coag (PPP) [Relative time] 1.10 {INR} Normal 0.90-1.30 [facility] Comment on above: Result Comment: Violeta min K Antagonist (VKA) Therapeutic Range: INR 2 to 3 (Target INR of 2.5) Note: For patients treated with VKA drugs, such as warfarin, the [place] [employer] 2012 Guideline recommends a therapeutic INR range of 2 to 3 (target INR of 2.5). This recommendation includes high-risk patients with antiphospholipid syndrome with previous arterial or venous thromboembolism, current-generation mechanical or bioprosthetic aortic heart valve replacement. Note: Patients with mechanical aortic valve replacement and additional risk factors for thromboembolic events (atrial fibrillation, previous thromboembolism, LV dysfunction, hypercoagulable conditions) or an older generation mechanical AVR (i.e., ball in-Cage) or any mechanical MVR should have a INR therapeutic range of 2.5 to 3.5 target INR of 3). Demetrio GH, et al. Chest 2012; 141:7S-47S Kathy RA et al. JACC 2017; 70: 252-289 Performed By: #### P T #### [facility] [address], [place] [address] PT Coag (PPP) [Time] 11.9 s Normal 9.7-13.0 [facility] Comment on above: Performed By: #### P T #### [address] [address] XR CHEST 1V FRONTALon 2019 XR CHEST 1V FRONTAL * * *Final Report* * * DATE OF EXAM: Dec 26 2019 4:22PM AKX [id number] - XR CHEST 1V FRONTAL / PROCEDURE REASON: Post-operative / post-procedure assessment, asymptomatic * * * * Physician Interpretation * * * * EXAMINATION: CHEST RADIOGRAPH (SINGLE VIEW AP OR PA) CLINICAL HISTORY: Post-operative / post-procedure assessment, asymptomatic MQ: [id number]_5 Comparison: Chest x-ray 12/13/2019 RESULT: Lines, tubes, and devices: Endotracheal tube terminates 2 cm from the kyra. Nasogastric tube terminates at or beyond the region of the left hemidiaphragm, however this is not well assessed on this exam.. There is a left-sided thoracostomy tube at the left thoracic base. Right IJ catheter terminates at the cavoatrial junction. There appears to be a mediastinal drain. Lungs and pleura: No pneumothorax. Shallow depth of inspiration limits the exam. Cardiomediastinal silhouette: Normal cardiomediastinal silhouette. Other: No acute bony abnormality is seen. IMPRESSION: Lines and tubes as detailed above. Distal extent of the nasogastric tube is difficult to determine. Framing Machine Tender: KAYLEEN Transcribe Date/Time: Dec 26 2019 4:32P Dictated by : ARPITA MOHAN MD This examination was interpreted and the report reviewed and electronically signed by: ARPITA MOHAN MD on Dec 26 2019 4:36PM EST Normal [facility] HOSPon 12-22-2019 HOSP Patient:Hilaria Woo MRN: Height:5' 11(1.803 m) Weight:310 lb (140.615 kg) Outpatient Medications as of 12/26/19: gabapentin (NEURONTIN) 100 mg capsule ACCU-CHEK GUIDE test strip ACCU-CHEK FASTCLIX LANCET DRUM lancets insulin glargine,hum.rec.anlog (BASAGLAR KWIKPEN U-100 INSULIN SUBCUTANEOUS) liraglutide (VICTOZA) 0.6 mg/ 0.1 ml subcutaneous pen injector gabapentin (NEURONTIN) 100 mg capsule aspirin 81 mg chewable tablet furosemide (LASIX) 40 mg tablet metoprolol succinate ER (TOPROL XL) 25 mg 24 hr tablet IPRATROPIUM BROMIDE INHALATION fluticasone-emollient no.65 0.05 % ktot acarbose (PRECOSE) 100 mg tablet amLODIPine (NORVASC) 10 mg tablet atorvastatin (LIPITOR) 80 mg tablet glimepiride (AMARYL) 2 mg tablet indapamide (LOZOL) 1.25 mg tablet losartan (COZAAR) 100 mg tablet Levocetirizine 5 mg tablet metFORMIN (GLUCOPHAGE) 1,000 mg tablet temazepam (RESTORIL) 15 mg testosterone cypionate (DEPO-TESTOSTERONE) 200 mg/mL injection Admission/Clinic Administered Medications as of 12/26/19: ceFAZolin 3 g in D5W 100 mL (ANCEF) cold induction cardioplegia solution 500 mL maintenance cardioplegia solution 1,000 mL heparin 3,000 Units in NaCl 0.9% 500 mL irrigation PHENYLephrine 20 mg in NaCl 0.9% 250 mL (YAMILKA-SYNEPHRINE) aminocaproic acid 25 g in NaCl 0.9% 250 mL (AMicAR) dexmedetomidine 400 mcg in NaCl 0.9% 100 mL (PRECEDEX) EPINEPHrine 4 mg in NaCl 0.9% 250 mL insulin regular iv infusion 100 units in NaCl 0.9% 100 mL - [place] CARD SURG NOMOGRAM nitroglycerin 100 mg in D5W 250 mL NORepinephrine 16 mg in NaCl 0.9% 250 mL (LEVOPHED) PHENYLephrine iv infusion 10 mg in NaCl 0.9% 250 mL (YAMILKA-SYNEPHRINE) Problem List: No problem list on file for this patient. Allergies: No Known Allergies Date Verified:12/26/19 Lab Values Lab Value Units Date High Low POTA* 3.9 mmol/L 12/13/2019 5.1 3.7 AUGUSTUS* 42.1 % 12/13/2019 51.0 40.1 Progress Notes ([facility]): Rebecca Belle LPN 12/14/2019 8:39 AM Signed Hilaria called stating that he would like Ashleigh to know that he has an appointment with his PCP today and would call her later with an update. Thanks, Rebecca Belle LPN Progress Notes ([facility]): Cortez Nagel APRN.BULL WHEEL WORKER, BULL WHEEL WORKER 12/13/2019 11:42 AM Signed UPDATED HISTORY AND PHYSICAL EXAMINATION SERVICE DATE: 12/13/2019 SERVICE TIME: 10:36 AM PHYSICAL EXAM MUST BE COMPLETED ON ADMISSION The History and Physical (completed in the past 30 days) has been reviewed and the patient has been examined. The contents accurately reflect the patient's condition with the following additions or revisions since the HANDP was completed. Examination indicates no changes. LUNGS: Lungs clear to auscultation, Good diaphragmatic excursion CARDIAC: Normal S1 and S2; no rubs, murmurs, or gallops Rhythm: regular rate and rhythm Rate: normal Provisional Diagnosis/Treatment Plan: CABG -surgery date on 12/19/[address] Mack - HAND P updated, and is consistent with recent evaluation with Dr. Mack -reviewed all pre-op labs, images and reports -MRSA swap done today in office -pre-op teaching and consultation done -CHG solution given to patient along with instructions -contact offered for further concerns -Pre-op nutritional drinks provided along with instruction - Patient is to take BB, ASA, Neurontin and Tylenol on AM DOS -MUPIROCIN script is given This HANDP can be found in the Electronic Medical Record dated 11/23/2019. SIGNATURE: Cortez Nagel APRN.CNP PATIENT NAME: Hilaria Woo DATE: December 13, 2019 TIME: 10:36 AM PAGER: [phone] Cortez Nagel APRN.CNP, CNP 12/13/2019 10:51 AM Addendum [facility] Pre-Admission Patient Instruction You are scheduled for surgery (Outpatient/Inpatient) located on the 2nd Floor on: 12/19/2019 Please report to the 2nd Floor Surgical Waiting Area at: 6 AM Do not stop at front entrance registration. Come in the Front Doors / Main Entrance 1. Do not eat or drink anything, including water and coffee, after 12 AM on the morning of your surgery. This is important because if you do, your surgery may have to be cancelled. Eat a light supper the evening before surgery or follow specific doctor's instructions. 2. Oral hygiene and a shower or bath is required the evening before or the morning of surgery. Use the Hibiclens body wash supplied to you today. 3. Do not chew gum the morning of surgery. 4. Notify your doctor if you develop a cold, sore throat, fever or other changes in your physical condition. 5. No alcohol 24 hours before or after surgery and refrain from smoking the morning of surgery and immediately following surgery. 6. Leave valuables such as rings, watches and money at home. Remove all make-up and nail vincentian before admission. We need to check your circulation. Remove jewelry from all piercings, tongue included, as no metal can go into surgery. Wear loose, comfortable clothing that will accommodate bandages. 7. You will be asked to remove glasses and contacts prior to surgery. Please bring a case. We will provide you a locker for your belongings. 8. Your length of stay will be determined by your surgeon and the anesthesiologist, as well as your post-op recovery. 9. Due to COVID 19 pandemic, no visitors is allowed in the hospital. You will to be dropped off at the hospital main entrance and provide us the point of contact for OR updates. On the morning of surgery, they will be instructed on how to download an ronal to their smart phone to receive updates through your surgery. 10. Please bring a list of any medication you are taking including dose and the condition for which you are being treated. Preparation for surgery: ? Please check your blood sugar prior to coming to the hospital on the day of your surgery. ? Stop Anticoagulant (blood thinners) NA ? Stop losartan 24 hours before surgery: 12/18/2019 Ensure Drinks Instruction: ? 2 protein shakes daily for 5 days ? 2 presurgical clear drinks the night before surgery ? 1 presurgical clear drink 2 hrs before surgery Medication Notes: (Please take these medications below with small sip of water on the morning of surgery) ? Aspirin 81 mg ? Beta Ronen: take your daily scheduled Metoprolol ? Mupirocin ointment: Please use a pea sized amount on a q-tip to apply inside your nose twice daily for five days prior to surgery. Start tomorrow ? Take 200 mg of Neurontin(gabapentin) along with 1000 mg of Tylenol 2 hrs before surgery. ? ALL DRINKS AND MEDICATION SHOULD BE TAKEN NO LATER THAN 5:30 AM Cortez Nagel APRN.BULL WHEEL WORKER Previous Version Normal [facility] Glucose [place] 12-20-2019 Glucose [Mass/Vol] 221 mg/dL High 70-99 [facility] Comment on above: Performed By: #### U RIN #### [place] [address] NURSING PROGon 12-20-2019 NURSING PROG HNO ID: [id number] Author: Emely JeffersRn) Arnulfo, KATTY Service: ? Author Type: Registered Nurse Type: Nursing Progress Note Filed: 12/20/2019 12:06 PM Note Text: Pt surgery cancelled due to temp. Blood Id removed and placed in chart. Normal [facility] NURSING PROG HNO ID: [id number] Author: Emely Donis) Arnulfo, KATTY Service: ? Author Type: Registered Nurse Type: Nursing Progress Note Filed: 12/20/2019 11:42 AM Note Text: Rechecked temp x 2 36.9 temporal 37.6 orally Normal [facility] NURSING PROG HNO ID: [id number] Author: Andria JeffersRn) KATTY Brown Service: Nursing Author Type: Registered Nurse Type: Nursing Progress Note Filed: 12/20/2019 11:07 AM Note Text: Telephone call to OR [address] Mack know pt's temperature is 99.7 F with no there symtoms. Normal [facility] PT EDon 12-20-2019 PT ED HNO ID: [id number] Author: Emely JeffersRn) KATTY Arredondo Service: ? Author Type: Registered Nurse Type: Patient Education Filed: 12/20/2019 11:22 AM Note Text: PRE OP LEARNING ASSESSMENT PROCEDURE/SURGERY: READINESS TO LEARN COGNITIVE ABILITY: Alert and oriented MOTIVATION TO LEARN: Eager FAMILY SUPPORT: High - Very involved in pt care PATIENT LEARNS BEST BY: Written Instruction - Hand-outs FACTORS AFFECTING LEARNING: Emotional Factors: Anxious PHYSICAL LIMITATIONS AFFECTING LEARNING: None Electronically Signed By: Emely Arredondo RN In Department: [place] SURGERY OR Normal [facility] Rapid, COVID 19on 12-20-2019 Rapid, COVID 19 Negative Normal Negative [facility] Comment on above: Result Comment: This test has been authorized by the FDA under an Emergency Use Authorization (EUA). Performed By: #### U RIN #### [place] [address] RBC Productson 12-17-2019 Xmatch Unit 1 see below Normal [facility] Comment on above: Result Comment: Comp atible Performed By: #### U RIN #### [place] [address] Xmatch Unit 2 see below Normal [facility] Comment on above: Result Comment: Comp atible Performed By: #### U RIN #### [place] [address] PT EDon 12-16-2019 PT ED HNO ID: [id number] Author: January JeffersRn) KATTY Huerta Service: Nursing Author Type: Registered Nurse Type: Patient Education Filed: 12/16/2019 3:34 PM Note Text: PRE OP LEARNING ASSESSMENT PROCEDURE/SURGERY: READINESS TO LEARN COGNITIVE ABILITY: Alert and oriented MOTIVATION TO LEARN: Eager FAMILY SUPPORT: Unable to assess - Family not present PATIENT LEARNS BEST BY: Multiple Methods FACTORS AFFECTING LEARNING: None PHYSICAL LIMITATIONS AFFECTING LEARNING: None Electronically Signed By: January Huerta RN In Department: [place] SURGERY OR Normal [facility] [place] 12-14-2019 JESSICA Telephone (Cylex) HILARIA WOO ([id number]) 1960 M Date Time Provider Department 12/14/19 BISHOP MACK During your visit today, we recorded the following information about you: Rebecca Belle LPN 12/14/2019 8:39 AM Signed Hilaria called stating that he would like Ashleigh to know that he has an appointment with his PCP today and would call her later with an update. Thanks, Rebecca Belle LPN Allergies As of Date: 12/14/2019 (No Known Allergies) Date Reviewed: 12/13/2019 Reviewed by: Rebecca Belle - Fully Assessed Reason for Visit: Clinical Update [1735] Prescriptions as of 12/14/2019 Sig: LIRAGLUTIDE 0.6 MG/0.1 ML (18* Inject 1.8 mg subcutaneously * MUPIROCIN 2 % TOPICAL OINTMENT Apply 1 application to affect* GABAPENTIN 100 MG CAPSULE Take 2 capsules by mouth one * ASPIRIN 81 MG CHEWABLE TABLET Take 81 mg by mouth once tariq* FUROSEMIDE 40 MG TABLET Take 1 tablet by mouth once d* METOPROLOL SUCCINATE ER 25 MG* Take 50 mg by mouth once tariq* IPRATROPIUM BROMIDE INHALATION Inhale 1 Puff as instructed o* FLUTICASONE 0.05 % LOTION-EMO* Apply 1 Surprise to affected are* ACARBOSE 100 MG TABLET Take 100 mg by mouth three ti* AMLODIPINE 10 MG TABLET Take 10 mg by mouth once tariq* ATORVASTATIN 80 MG TABLET Take 80 mg by mouth once tariq* GLIMEPIRIDE 2 MG TABLET Take 2 mg by mouth daily with* INDAPAMIDE 1.25 MG TABLET Take 1.25 mg by mouth once da* LOSARTAN 100 MG TABLET Take 100 mg by mouth once miguel* LEVOCETIRIZINE 5 MG TABLET Take 5 mg by mouth once daily* METFORMIN 1,000 MG TABLET Take 1,000 mg by mouth twice * PIOGLITAZONE 45 MG TABLET Take 45 mg by mouth once tariq* TEMAZEPAM 15 MG CAPSULE Take 15 mg by mouth daily at * TESTOSTERONE CYPIONATE 200 MG* Inject intramuscularly. Every* Problem List As Of Date: 12/14/2019 (None) Encounter Status:Closed by REBECCA BELLE LPN on 12/14/19 Normal [facility] CNOVon 12-13-2019 CNOV Office Visit (AGVASACC) HILARIA WOO ([id number]) 1960 M Date Time Provider Department 12/13/19 11:00 AM CORTEZ NAGEL (DAIRY FEED SALES CONSULTANT, BULL WHEEL WORKER) [facility] During your visit today, we recorded the following information about you: Temperature Pulse Respiration Blood pressure 98.4 degrees 79/minute 18/minute 148/82 Weight Height 140.6 kg 1.803 m Cortez Nagel APRN.ANGE CASSIDY 12/13/2019 11:42 AM Signed UPDATED HISTORY AND PHYSICAL EXAMINATION SERVICE DATE: 12/13/2019 SERVICE TIME: 10:36 AM PHYSICAL EXAM MUST BE COMPLETED ON ADMISSION The History and Physical (completed in the past 30 days) has been reviewed and the patient has been examined. The contents accurately reflect the patient's condition with the following additions or revisions since the [facility] was completed. Examination indicates no changes. LUNGS: Lungs clear to auscultation, Good diaphragmatic excursion CARDIAC: Normal S1 and S2; no rubs, murmurs, or gallops Rhythm: regular rate and rhythm Rate: normal Provisional Diagnosis/Treatment Plan: CABG -surgery date on 12/19/[address] Callie Leon updated, and is consistent with recent evaluation with Dr. Lahorra -reviewed all pre-op labs, images and reports -MRSA swap done today in office -pre-op teaching and consultation done -CHG solution given to patient along with instructions -contact offered for further concerns -Pre-op nutritional drinks provided along with instruction - Patient is to take BB, ASA, Neurontin and Tylenol on AM DOS -MUPIROCIN script is given This HANDP can be found in the Electronic Medical Record dated 11/23/2019. SIGNATURE: Cortez Nagel APRN.CNP PATIENT NAME: Hilaria Woo DATE: December 13, 2019 TIME: 10:36 AM PAGER: [phone] Cortez Nagel APRN.CNP, CNP 12/13/2019 10:51 AM Addendum [facility] Pre-Admission Patient Instruction You are scheduled for surgery (Outpatient/Inpatient) located on the 2nd Floor on: 12/19/2019 Please report to the 2nd Floor Surgical Waiting Area at: 6 AM Do not stop at front entrance registration. Come in the Front Doors / Main Entrance 1. Do not eat or drink anything, including water and coffee, after 12 AM on the morning of your surgery. This is important because if you do, your surgery may have to be cancelled. Eat a light supper the evening before surgery or follow specific doctor's instructions. 2. Oral hygiene and a shower or bath is required the evening before or the morning of surgery. Use the Hibiclens body wash supplied to you today. 3. Do not chew gum the morning of surgery. 4. Notify your doctor if you develop a cold, sore throat, fever or other changes in your physical condition. 5. No alcohol 24 hours before or after surgery and refrain from smoking the morning of surgery and immediately following surgery. 6. Leave valuables such as rings, watches and money at home. Remove all make-up and nail vincentian before admission. We need to check your circulation. Remove jewelry from all piercings, tongue included, as no metal can go into surgery. Wear loose, comfortable clothing that will accommodate bandages. 7. You will be asked to remove glasses and contacts prior to surgery. Please bring a case. We will provide you a locker for your belongings. 8. Your length of stay will be determined by your surgeon and the anesthesiologist, as well as your post-op recovery. 9. Due to COVID 19 pandemic, no visitors is allowed in the hospital. You will to be dropped off at the hospital main entrance and provide us the point of contact for OR updates. On the morning of surgery, they will be instructed on how to download an ronal to their smart phone to receive updates through your surgery. 10. Please bring a list of any medication you are taking including dose and the condition for which you are being treated. Preparation for surgery: ? Please check your blood sugar prior to coming to the hospital on the day of your surgery. ? Stop Anticoagulant (blood thinners) NA ? Stop losartan 24 hours before surgery: 12/18/2019 Ensure Drinks Instruction: ? 2 protein shakes daily for 5 days ? 2 presurgical clear drinks the night before surgery ? 1 presurgical clear drink 2 hrs before surgery Medication Notes: (Please take these medications below with small sip of water on the morning of surgery) ? Aspirin 81 mg ? Beta Ronen: take your daily scheduled Metoprolol ? Mupirocin ointment: Please use a pea sized amount on a q-tip to apply inside your nose twice daily for five days prior to surgery. Start tomorrow ? Take 200 mg of Neurontin(gabapentin) along with 1000 mg of Tylenol 2 hrs before surgery. ? ALL DRINKS AND MEDICATION SHOULD BE TAKEN NO LATER THAN 5:30 AM Cortez Nagel APRN.BULL WHEEL WORKER Referring Provider: SELF [200] Allergies As of Date: 12/13/2019 (No Known Allergies) Date Reviewed: 12/13/2019 Reviewed by: Rebecca (Idalmis) Yoshi - Fully Assessed Reason for Visit: Pre-Op Exam [87] Cmt: PAT 12/19/19 CABG Primary Visit Diagnosis:Preoperative testing [Z01.818] Other Visit Diagnoses:Coronary artery disease involving [place] coronary artery of [place] heart with unstable angina pectoris (HCC) [I25.110] Chronic diastolic CHF (congestive heart failure) (HCC) [I50.32] Diabetes mellitus without complication (HCC) [E11.9] Order(s):mupirocin (BACTROBAN) 2 % ointmentApply 1 application to affected area twice daily for 5 days.Disp: 22 gRfl: 0 gabapentin (NEURONTIN) 100 mg capsuleTake 2 capsules by mouth one time only for 1 dose.Disp: 2 capsuleRfl: 0 acetaminophen (TYLENOL EXTRA STRENGTH) 500 mg tabletTake 2 tablets by mouth one time only for 1 dose.Disp: 2 tabletRfl: 0 Prescriptions as of 12/13/2019 Sig: LIRAGLUTIDE 0.6 MG/0.1 ML (18* Inject 1.8 mg subcutaneously * ASPIRIN 81 MG CHEWABLE TABLET Take 81 mg by mouth once tariq* FUROSEMIDE 40 MG TABLET Take 1 tablet by mouth once d* METOPROLOL SUCCINATE ER 25 MG* Take 50 mg by mouth once tariq* IPRATROPIUM BROMIDE INHALATION Inhale 1 Puff as instructed o* FLUTICASONE 0.05 % LOTION-EMO* Apply 1 Surprise to affected are* ACARBOSE 100 MG TABLET Take 100 mg by mouth three ti* AMLODIPINE 10 MG TABLET Take 10 mg by mouth once tariq* ATORVASTATIN 80 MG TABLET Take 80 mg by mouth once tariq* GLIMEPIRIDE 2 MG TABLET Take 2 mg by mouth daily with* INDAPAMIDE 1.25 MG TABLET Take 1.25 mg by mouth once da* LOSARTAN 100 MG TABLET Take 100 mg by mouth once miguel* LEVOCETIRIZINE 5 MG TABLET Take 5 mg by mouth once daily* METFORMIN 1,000 MG TABLET Take 1,000 mg by mouth twice * TEMAZEPAM 15 MG CAPSULE Take 15 mg by mouth daily at * TESTOSTERONE CYPIONATE 200 MG* Inject intramuscularly. Every* MUPIROCIN 2 % TOPICAL OINTMENT Apply 1 application to affect* GABAPENTIN 100 MG CAPSULE Take 2 capsules by mouth one * ACETAMINOPHEN 500 MG TABLET Take 2 tablets by mouth one t* PIOGLITAZONE 45 MG TABLET Take 45 mg by mouth once tariq* Problem List As Of Date: 12/13/2019 (None) Other instructions from your clinician: [facility] Pre-Admission Patient Instruction You are scheduled for surgery (Outpatient/Inpatient) located on the 2nd Floor on: 12/19/2019 Please report to the 2nd Floor Surgical Waiting Area at: 6 AM Do not stop at front entrance registration. Come in the Front Doors / Main Entrance 1. Do not eat or drink anything, including water and coffee, after 12 AM on the morning of your surgery. This is important because if you do, your surgery may have to be cancelled. Eat a light supper the evening before surgery or follow specific doctor's instructions. 2. Oral hygiene and a shower or bath is required the evening before or the morning of surgery. Use the Hibiclens body wash supplied to you today. 3. Do not chew gum the morning of surgery. 4. Notify your doctor if you develop a cold, sore throat, fever or other changes in your physical condition. 5. No alcohol 24 hours before or after surgery and refrain from smoking the morning of surgery and immediately following surgery. 6. Leave valuables such as rings, watches and money at home. Remove all make-up and nail vincentian before admission. We need to check your circulation. Remove jewelry from all piercings, tongue included, as no metal can go into surgery. Wear loose, comfortable clothing that will accommodate bandages. 7. You will be asked to remove glasses and contacts prior to surgery. Please bring a case. We will provide you a locker for your belongings. 8. Your length of stay will be determined by your surgeon and the anesthesiologist, as well as your post-op recovery. 9. Due to COVID 19 pandemic, no visitors is allowed in the hospital. You will to be dropped off at the hospital main entrance and provide us the point of contact for OR updates. On the morning of surgery, they will be instructed on how to download an ronal to their smart phone to receive updates through your surgery. 10. Please bring a list of any medication you are taking including dose and the condition for which you are being treated. Preparation for surgery: ? Please check your blood sugar prior to coming to the hospital on the day of your surgery. ? Stop Anticoagulant (blood thinners) NA ? Stop losartan 24 hours before surgery: 12/18/2019 Ensure Drinks Instruction: ? 2 protein shakes daily for 5 days ? 2 presurgical clear drinks the night before surgery ? 1 presurgical clear drink 2 hrs before surgery Medication Notes: (Please take these medications below with small sip of water on the morning of surgery) ? Aspirin 81 mg ? Beta Ronen: take your daily scheduled Metoprolol ? Mupirocin ointment: Please use a pea sized amount on a q-tip to apply inside your nose twice daily for five days prior to surgery. Start tomorrow ? Take 200 mg of Neurontin(gabapentin) along with 1000 mg of Tylenol 2 hrs before surgery. ? ALL DRINKS AND MEDICATION SHOULD BE TAKEN NO LATER THAN 5:30 AM Cortez Nagel APRN.BULL WHEEL WORKER Prescriptions ordered this encounter Disp Refills Start End MUPIROCIN 2 % TOPICAL OINTMENT 22 g 0 12/13/2019 12/18/2019 Class: Print RX Route: TOPICAL Sig: Apply 1 application to affected area twice daily for 5 days. GABAPENTIN 100 MG CAPSULE 2 ca* 0 12/13/2019 12/13/2019 Class: Print RX Route: ORAL Sig: Take 2 capsules by mouth one time only for 1 dose. ACETAMINOPHEN 500 MG TABLET 2 ta* 0 12/13/2019 12/13/2019 Class: OTC Route: ORAL Sig: Take 2 tablets by mouth one time only for 1 dose. Encounter Status:Closed by CORTEZ NAGEL CNP on 12/13/19 [facility] CONSULT PROGon 12-13-2019 CONSULT PROG HNO ID: [id number] Author: Cortez (Sanjuanita Cassidy) ANGE Nagel Service: Cardiovascular Surgery Author Type: Nurse Practitioner Type: Consult Progress Note Filed: 12/13/2019 3:48 PM Note Text: CTVS Surgery Pre-Op Open Heart Check List Patient Info: Hilaria Woo 1960 59 year old Patient has no known allergies. HPI: This is a 59 year old man referred for evaluation of MV CAD and for consideration for MV CABG. He has no previous cardiac or vascular history. He has been developing progressive exertional dyspnea and chest tightness. He was admitted to [facility] last week with dyspnea and found to be in CHF with come pulmonary congestion and lower extremity edema. He responded well to medical therapy including diuresis. Left heart cath showed severe MV CAD including severe lesions in the LAD, ramus, and circumflex branches with an occluded RCA filling via left to right collaterals. Echo shows EF 65%, mild LVH, and mild . Risk factors for CAD include: +FH (brother); HTN; HLD; obesity; DM (poorly controlled). ? ? Last set of vitals: There were no vitals taken for this visit. Wt: 308 lb (139.7 kg) BMI: 42.96 kg/(m2) Procedure: CABG Diagnosis: MV CAD Date of Procedure: 12/19/2019 STS Risk Score: Risk of Mortality: 1.089% CARE TEAM: Cardiac Surgeon: Dr. Mack Peoplesoft Administrator: Dr. Rondon PCP: Dr. Rodriguez Other Providers: NA Pre-Op Testing: LABS: CHEMISTRY Sodium (mmol/L) Date Value 12/13/2019 138 Chloride (mmol/L) Date Value 12/13/2019 95 CO2 (mmol/L) Date Value 12/13/2019 30 BUN (mg/dL) Date Value 12/13/2019 12 Creatinine (mg/dL) Date Value 12/13/2019 0.85 Glucose (mg/dL) Date Value 12/13/2019 254 Magnesium (mg/dL) Date Value 12/13/2019 1.2 Protein, Total (g/dL) Date Value 12/13/2019 7.0 Calcium (mg/dL) Date Value 12/13/2019 8.9 Bilirubin, Total (mg/dL) Date Value 12/13/2019 0.4 Alkaline Phosphatase (U/L) Date Value 12/13/2019 111 ALT (U/L) Date Value 12/13/2019 27 AST (U/L) Date Value 12/13/2019 19 Anion Gap (mmol/L) Date Value 12/13/2019 13 { Lipid Panel No results found for: CHOL, HDL, LDL, TG NT Pro BNP No results found for: PBNP ENDOCRINE Hemoglobin A1C (%) Date Value 12/13/2019 10.5 TSH Date Value Ref Range Status 12/13/2019 2.820 0.270 - 4.200 uIU/mL Final Comment: : 1st trimester:(9-12 weeks):0.180-2.900 uIU/mL 2nd trimester: 0.110-3.980 uIU/mL 3rd trimester: 0.480-4.710 uIU/mL Patients taking a biotin dose of up to 5 mg/day should refrain from taking biotin for 4 hours prior to sample collection. Patients taking a biotin dose of 5 to 10 mg/day should refrain from taking biotin for 8 hours prior to sample collection. Patients taking a biotin dose > 10 mg/day should consult with their physician or the laboratory prior to having a sample taken. Clinicians should consider biotin interference as a source of error, when clinically suspicious of the laboratory result. HEMATOLOGY RBC (mil/cmm) Date Value 12/13/2019 4.78 HGB (g/dL) Date Value 12/13/2019 14.2 Hematocrit (%) Date Value 12/13/2019 42.1 WBC (thou/cmm) Date Value 12/13/2019 6.20 Platelet Count (thou/cmm) Date Value 12/13/2019 258 COAGULATION Prothrombin Time Date Value Ref Range Status 12/13/2019 10.7 9.7 - 13.0 sec Final INR Date Value Ref Range Status 12/13/2019 0.99 0.90 - 1.30 Final Comment: Vitamin K Antagonist (VKA) Therapeutic Range: INR 2 to 3 (Target INR of 2.5) Note: For patients treated with VKA drugs, such as warfarin, the [place] College of Chest Physicians 2012 Guideline recommends a therapeutic INR range of 2 to 3 (target INR of 2.5). This recommendation includes high-risk patients with antiphospholipid syndrome with previous arterial or venous thromboembolism, current-generation mechanical or bioprosthetic aortic heart valve replacement. Note: Patients with mechanical aortic valve replacement and additional risk factors for thromboembolic events (atrial fibrillation, previous thromboembolism, LV dysfunction, hypercoagulable conditions) or an older generation mechanical AVR (i.e., ball in-Cage) or any mechanical MVR should have a INR therapeutic range of 2.5 to 3.5 target INR of 3). Demetrio GH, et al. Chest 2012; 141:7S-47S Kathy RA et al. [facility] 2017; 70: 252-289 Anemia Evaluation: Anemic: No Accept Blood: Yes Blood Conservation Committee: No Ferritin: NA FE+TIBC: NA Fe Sat: NA FOBT: NA Anemia Treatment: NA UA pH, Urine Date Value Ref Range Status 12/13/2019 7.5 5.0 - 8.0 Final Specific Gause, Ur Date Value Ref Range Status 12/13/2019 1.022 1.005 - 1.030 Final Glucose, Urine Date Value Ref Range Status 12/13/2019 250 (A) Negative mg/dL Final Bilirubin, Urine Date Value Ref Range Status 12/13/2019 NEGATIVE Negative Final Ketones, Urine Date Value Ref Range Status 12/13/2019 NEGATIVE Negative mg/dL Final Protein, Urine Date Value Ref Range Status 12/13/2019 30 (A) Negative mg/dL Final Leukocytes Esterase Date Value Ref Range Status 12/13/2019 NEGATIVE Negative Final Bacteria, Urine Date Value Ref Range Status 12/13/2019 NONE None Final Type AND Screen: Results for HILARIA WOO ( ) as of 12/13/2019 15:33 Ref. Range 12/13/2019 12:10 ABO Group Unknown O RH Type Unknown Positive Antibody Screen Latest Ref Range: NEGATIVE NEGATIVE Blood Bank Comment Unknown PAT specimen RBC Cross match: 2UNITS MRSA Screen: Pending result, rx PROVIDED Chronic Lung Disease: No FEVI: NA DLCO: NA ABG: NA VASILIY: Yes IMAGING/PROCEDURES CXR RESULT: Lines, tubes, and devices: ?None. Lungs and pleura: ?No consolidation. No lung mass. No pleural effusion. No pneumothorax. Cardiomediastinal silhouette: ?Normal cardiomediastinal silhouette. Bones and soft tissues: ?Unremarkable. Cardiac Catheterization 11/18/2019: Left heart assessment: LVEF by echo 65% with normal LV wall motion Left main: moderate calcification LAD: Proximal LAD moderate calcification with 70% stenosis Circumflex artery: Diffuse disease up to 70% Ramus: Moderate luminal irregularity up to 50% RCA: Occluded Collateral flow: Collateral flow from [id number] 2D Echo 11/17/2019: Left ventricle: Normal LV size. Mild concentric LVH. Left ventricle systolic function is normal. The estimated EF is 65%. Stage II diastolic dysfunction. No regional wall motion abnormalities noted. Right ventricle: Normal RV size. Normal systolic function. Atria: The left atrium is moderately enlarged. Normal RA Mitral valve: Mitral valve is not well visualized. Tricuspid valve: Not well visualized. Aortic valve: Aortic valve is not well visualized. Peak aortic valve gradient 25 mmHg, mean aortic valve gradient 15 mmHg. Mild aortic stenosis. Great vessels: Normal aortic root. Pericardium/pleural: No pericardial effusion. 5 Meter Walk Test: ASSESSMENT: 1. 4.24 sec 2. 4.28 sec 3. 4.22 sec ? SIGNATURE: Kyung Oreilly LPN PATIENT NAME: Hilaria Woo DATE: November 23, 2019 TIME: 1:10 PM OPTIONAL TESTINGS: Carotid U/S: NA Lower EXT CHAN: NA Palmar Arch: NA Vein Mapping: NA Dental Clearance:NA CT Chest: NA Medications: Blood thinners: Patient is on following blood thinners: Aspirin -Yes, dose 81 mg, stopped No, date:DOS Beta Ronen: Last dose of beta ronen taken: DOS Tylenol 1000 mg DOS: Yes Neurontin 200 mg DOS: Yes KARISSA/ARB: Stop 24 hours preop Yes Last dose date 12/18/2019 Steroids: No Chronic Immunosuppressive drugs: No Heparin stop time addressed: No Implantable Device: No NA Turned off date: NA Perioperative Transfusion risk STS Risk Factors: Advanced age No Preoperative anemia No Non-CABG surgery No Preoperative anticoagulation No Clotting abnormalities No Female gender No Small body habitus No Renal insufficiency No IDDM Yes Sepsis No Liver disease No Post-operative Wound Healing - Vest recommended Yes (Yes to any one of the below requires a post thorax vest) Risk Factors: Obesity Yes DM Yes, pre-op A1c is 10.5 Renal Dx No COPD No Bilateral URIEL tbd CONSIDER PRAVENA: TBD Dietitian consultation: No Drinks provided (outpatient setting): Yes CLEARANCES NEEDED Pulmonary: No Hematology: No Nephrology No Vascular surgery No Other No Cortez Nagel, DAIR[employer] FE[employer] SALES CONSULTANT.BULL WHEEL WORKER Normal [facility] Comprehensive Metabolic Pane abdifatah 12-13-2019 Albumin [Mass/Vol] 4.2 g/dL Normal 3.9-4.9 [facility] Comment on above: Performed By: #### C MP #### [address] [address] ALP [Catalytic activity/Vol] 111 U/L Normal 38-113 [facility] Comment on above: Performed By: #### C MP #### [address] [address] ALT [Catalytic activity/Vol] 27 U/L Normal 10-54 [facility] Comment on above: Performed By: #### C MP #### [address] [address] Anion gap [Moles/Vol] 13 mmol/L Normal 9-18 [facility] Comment on above: Performed By: #### C MP #### [address] [address] AST [Catalytic activity/Vol] 19 U/L Normal 14-40 [facility] Comment on above: Performed By: #### C MP #### [address] [address] Bilirubin [Mass/Vol] 0.4 mg/dL Normal 0.2-1.3 [facility] Comment on above: Performed By: #### C MP #### [address] [address] Calcium [Mass/Vol] 8.9 mg/dL Normal 8.5-10.2 [facility] Comment on above: Performed By: #### C MP #### [facility] [address] [place], [place] [address] Chloride [Moles/Vol] 95 mmol/L Low 97-105 [facility] Comment on above: Performed By: #### C MP #### [facility] [address] [place], [place] [address] CO2 Blood 30 mmol/L Normal 22-30 [facility] Comment on above: Performed By: #### C MP #### [facility] [address] [place], [place] [address] Creatinine [Mass/Vol] 0.85 mg/dL Normal 0.73-1.22 [facility] Comment on above: Performed By: #### C MP #### [facility] [address] [place], [place] [address] Glucose [Mass/Vol] 254 mg/dL High 74-99 [facility] Comment on above: Result Comment: The [place] Diabetes Association (ADA) provides guidance for cutoff values for fasting glucose and random glucose. The ADA defines fasting as no caloric intake for at least 8 hours.Fasting plasma glucose results between 100 to 125 mg/dL indicate increased risk for diabetes (prediabetes). Fasting plasma glucose results greater than or equal to 126 mg/dL meet the criteria for diagnosis of diabetes. In the absence of unequivocal hyperglycemia, results should be confirmed by repeat testing. In a patient with classic symptoms of hyperglycemia or hyperglycemic crisis, random plasma glucose results greater than or equal to 200 mg/dL meet the criteria for diagnosis of diabetes. Reference: Standards of Medical Care in Diabetes 2016; [place] Diabetes Association. Diabetes Care. 2016;39(Suppl 1). Performed By: #### C MP #### [facility] [address] [place], [place] [address] Potassium [Moles/Vol] 3.9 mmol/L Normal 3.7-5.1 [facility] Comment on above: Performed By: #### C MP #### [facility] [address] [place], [place] [address] Protein [Mass/Vol] 7.0 g/dL Normal 6.3-8.0 [facility] Comment on above: Performed By: #### C MP #### [facility] [address] [place] [address] Sodium [Moles/Vol] 138 mmol/L Normal 136-144 [facility] Comment on above: Performed By: #### C MP #### [facility] [address] [place] [address] Urea nitrogen [Mass/Vol] 12 mg/dL Normal 9-24 [facility] Comment on above: Performed By: #### C MP #### [facility] [address] [place] [address] Hemogramon 12-13-2019 Erythrocyte distribution width (RBC) [Ratio] 12.7 % Normal 11.6-14.4 [facility] Comment on above: Performed By: #### C BC1 #### [facility] [address] [place] [address] Hematocrit (Bld) [Volume fraction] 42.1 % Normal 40.1-51.0 [facility] Comment on above: Performed By: #### C BC1 #### [facility] [address] [place] [address] Hemoglobin (Bld) [Mass/Vol] 14.2 g/dL Normal 13.7-17.5 [facility] Comment on above: Performed By: #### C BC1 #### [facility] [address] [place] [address] MCH (RBC) [Entitic mass] 29.7 pg Normal 25.7-32.2 [facility] Comment on above: Performed By: #### C BC1 #### [facility] [address] [place] [address] MCHC (RBC) [Mass/Vol] 33.7 % Normal 32.3-36.5 [facility] Comment on above: Performed By: #### C BC1 #### [facility] [address] [place] [address] MCV (RBC) [Entitic vol] 88.1 fL Normal 83.2-95.6 [facility] Comment on above: Performed By: #### C BC1 #### [facility] [address] [place] [address] Platelet mean volume (Bld) [Entitic vol] 11.1 fL Normal 8.7-12.0 [facility] Comment on above: Performed By: #### C BC1 #### [facility] [address] [place], [place] [address] Platelets (Bld) [#/Vol] 258 thou/cmm Normal 141-365 [facility] Comment on above: Performed By: #### C BC1 #### [facility] [address] [place], [place] [address] RBC (Bld) [#/Vol] 4.78 mil/cmm Normal 4.63-6.08 [facility] Comment on above: Performed By: #### C BC1 #### [facility] [address] [place], [place] [address] RDW SD 41.0 fl Normal 36.1-45.8 [facility] Comment on above: Performed By: #### C BC1 #### [facility] [address] [place], [place] [address] WBC (Bld) [#/Vol] 6.20 thou/cmm Normal 4.23-9.07 [facility] Comment on above: Performed By: #### C BC1 #### [facility] [address] [place] [id number] Hgb A1con 12-13-2019 HbA1c (Bld) [Mass fraction] 255 mg/dL Normal [facility] Comment on above: Performed By: #### H A1C #### [facility] [address] [place] [address] HbA1c (Bld) [Mass fraction] 10.5 % High 4.0-5.6 [facility] Comment on above: Result Comment: [place] Diabetes Association guidelines indicate that the patients with HgA1c in the range 5.7 ? 6.4% are at increased risk for development of diabetes, and intervention by lifestyle modification may be beneficial. HgA1c greater or equal to 6.5% is considered diagnostic of diabetes. Performed By: #### H A1C #### [facility] [address] [place], [place] [address] MDRD GFRon 12-13-2019 GFR/1.73 sq M predicted among non-blacks MDRD (S/P/Bld) [Vol rate/Area] mL/min/{1.73_m2} Normal >60mL/min/1. 73m2 [facility] Comment on above: Result Comment: If t he patient is , multiply the result by 1.210. Performed By: #### G FR #### [facility] [address] [place], [place] [address] MRSA Screenon 12-13-2019 MRSA DNA CATALINA+probe Ql (Unsp spec) Test performed at [facility] No MRSA detected. Normal [facility] Comment on above: Performed By: #### U RIN #### [facility] [address] [place], [place] [address] Magnesium Bloodon 12-13-2019 Magnesium [Mass/Vol] 1.2 mg/dL Low 1.7-2.3 [facility] Comment on above: Performed By: #### M AG #### [facility] [address] [place], [place] [address] PROGRESSon 12-13-2019 PROGRESS HNO ID: [id number] Author: Cortez (Sanjuanita Cassidy) ANGE Nagel Service: ? Author Type: Nurse Practitioner Type: Progress Notes Filed: 12/13/2019 11:42 AM Note Text: UPDATED HISTORY AND PHYSICAL EXAMINATION SERVICE DATE: 12/13/2019 SERVICE TIME: 10:36 AM PHYSICAL EXAM MUST BE COMPLETED ON ADMISSION The History and Physical (completed in the past 30 days) has been reviewed and the patient has been examined. The contents accurately reflect the patient's condition with the following additions or revisions since the HANDP was completed. Examination indicates no changes. LUNGS: Lungs clear to auscultation, Good diaphragmatic excursion CARDIAC: Normal S1 and S2; no rubs, murmurs, or gallops Rhythm: regular rate and rhythm Rate: normal Provisional Diagnosis/Treatment Plan: CABG -surgery date on 12/19/[address] Mack - MARTINE P updated, and is consistent with recent evaluation with Dr. Mack -reviewed all pre-op labs, images and reports -MRSA swap done today in office -pre-op teaching and consultation done -CHG solution given to patient along with instructions -contact offered for further concerns -Pre-op nutritional drinks provided along with instruction - Patient is to take BB, ASA, Neurontin and Tylenol on AM DOS -MUPIROCIN script is given This HANDP can be found in the Electronic Medical Record dated 11/23/2019. SIGNATURE: Cortez Nagel APRN.CNP PATIENT NAME: Hilaria Woo DATE: December 13, 2019 TIME: 10:36 AM PAGER: [phone] Normal [facility] Protimeon 12-13-2019 INR Coag (PPP) [Relative time] 0.99 {INR} Normal 0.90-1.30 [facility] Comment on above: Result Comment: Violeta min K Antagonist (VKA) Therapeutic Range: INR 2 to 3 (Target INR of 2.5) Note: For patients treated with VKA drugs, such as warfarin, the [place] College of Chest Physicians 2012 Guideline recommends a therapeutic INR range of 2 to 3 (target INR of 2.5). This recommendation includes high-risk patients with antiphospholipid syndrome with previous arterial or venous thromboembolism, current-generation mechanical or bioprosthetic aortic heart valve replacement. Note: Patients with mechanical aortic valve replacement and additional risk factors for thromboembolic events (atrial fibrillation, previous thromboembolism, LV dysfunction, hypercoagulable conditions) or an older generation mechanical AVR (i.e., ball in-Cage) or any mechanical MVR should have a INR therapeutic range of 2.5 to 3.5 target INR of 3). Demetrio GH, et al. Chest 2012; 141:7S-47S Kathy CORREA et al. [facility] 2017; 70: 252-289 Performed By: #### P T #### [address] [address] PT Coag (PPP) [Time] 10.7 s Normal 9.7-13.0 [facility] Comment on above: Performed By: #### P T #### [facility] [address] [place], [place] [address] TSHon 12-13-2019 TSH Qn 2.820 uIU/mL Normal 0.270-4.200 [facility] Comment on above: Result Comment: Preg wendy: 1st trimester:(9-12 weeks):0.180-2.900 uIU/mL 2nd trimester: 0.110-3.980 uIU/mL 3rd trimester: 0.480-4.710 uIU/mL Patients taking a biotin dose of up to 5 mg/day should refrain from taking biotin for 4 hours prior to sample collection. Patients taking a biotin dose of 5 to 10 mg/day should refrain from taking biotin for 8 hours prior to sample collection. Patients taking a biotin dose > 10 mg/day should consult with their physician or the laboratory prior to having a sample taken. Clinicians should consider biotin interference as a source of error, when clinically suspicious of the laboratory result. Performed By: #### T SH3 #### [place] [address] Type and Screenon 12-13-2019 ABO group Nom (Bld) O Normal [facility] Comment on above: Performed By: #### T &S #### [place] [address] Comment PAT specimen Normal [facility] Comment on above: Performed By: #### T &S #### [place] [address] RH Type Positive Normal [facility] Comment on above: Performed By: #### T &S #### [place] [address] Urinalysis, reflexon 020 Reflex Comment see below Normal [facility] Comment on above: Result Comment: Refl ex to culture is not indicated based on established laboratory criteria. Performed By: #### U RIN #### [place] [address] Bacteria LM.HPF (Urine sed) [#/Area] NONE Normal None [facility] Comment on above: Performed By: #### U RIN #### [place] [address] Ep Cells Urine 0.6 /hpf Normal 0.0-5.0 [facility] Comment on above: Performed By: #### U RIN #### [place] [address] Hyaline Cast 1.8 /lpf High 0.0-1.0 [facility] Comment on above: Performed By: #### U RIN #### [facility] [address] [place] [address] RBC LM.HPF (Urine sed) [#/Area] 0.6 /[HPF] Normal 0.0-5.0 [facility] Comment on above: Performed By: #### U RIN #### [facility] [address] [place] [address] WBC, reflex 2.30 /hpf Normal 0.00-5.00 [facility] Comment on above: Performed By: #### U RIN #### [facility] [address] [place] [address] Appearance (U) CLEAR Normal [facility] Comment on above: Performed By: #### U RIN #### [facility] [address] [place] [address] Bilirubin (U) [Mass/Vol] Negative Normal Negative [facility] Comment on above: Performed By: #### U RIN #### [place] [address] Color (U) YELLOW Normal [facility] Comment on above: Performed By: #### U RIN #### [place] [address] Glucose Ql (U) 250 mg/dL Abnormal Negative [facility] Comment on above: Performed By: #### U RIN #### [place] [address] Hemoglobin,Urine Negative Normal Negative [facility] Comment on above: Performed By: #### U RIN #### [facility] [address] [place] [address] Ketone Urine Negative Normal Negative [facility] [facility] Comment on above: Performed By: #### U RIN #### [place] [address] Leukocyte esterase Test strip Ql (U) Negative Normal Negative [facility] Comment on above: Performed By: #### U RIN #### [place] [address] Nitrite reflex Negative Normal Negative [facility] Comment on above: Performed By: #### U RIN #### [address], [place] [address] pH (U) 7.5 [pH] Normal 5.0-8.0 [facility] Comment on above: Performed By: #### U RIN #### [facility] [address] [place], [place] [address] Protein (U) [Mass/Vol] 30 mg/dL Abnormal Negative [facility] Comment on above: Performed By: #### U RIN #### [facility] [address] [place] [address] Specific [place], Ur 1.022 Normal 1.005-1.030 [facility] Comment on above: Performed By: #### U RIN #### [facility] [address] [place] [address] Urobilinogen,Ur 1.0 EU/dL Normal 0.2-1.0 [facility] Comment on above: Performed By: #### U RIN #### [facility] [address] [place] [address] XR CHEST 2V FRONTAL/LATon XR CHEST 2V FRONTAL/LAT * * *Final Repor t* * * DATE OF EXAM: Dec 13 2019 10:31AM AKX [id number] - XR CHEST 2V FRONTAL/LAT / PROCEDURE REASON: multiple diagnoses * * * * Physician Interpretation * * * * EXAMINATION: CHEST RADIOGRAPH (2 VIEW FRONTAL & LATERAL) CLINICAL HISTORY: Chest pain MQ: [id number] EXAM DATE/TIME: 12/13/2019 10:31 AM COMPARISON: No relevant prior studies available. RESULT: Lines, tubes, and devices: None. Lungs and pleura: No consolidation. No lung mass. No pleural effusion. No pneumothorax. Cardiomediastinal silhouette: Normal cardiomediastinal silhouette. Bones and soft tissues: Unremarkable. IMPRESSION: No acute radiographic abnormality. Framing Machine Tender: PSCB Transcribe Date/Time: Dec 13 2019 10:32A Dictated by : THOMAS OWENS MD This examination was interpreted and the report reviewed and electronically signed by: THOMAS OWENS MD on Dec 13 2019 10:33AM EST Normal [facility] CNPNon 12-12-2019 CNPN Telephone (AGVASACC) HILARIA WOO ([id number]) 1960 M Date Time Provider Department 12/12/19 BISHOP MACK During your visit today, we recorded the following information about you: Rebecca Belle LPN 12/12/2019 10:28 AM Signed Hilaria called returning Ashleigh's call from Thursday. IDALMIS Cardenas APRN.ANGE CASSIDY 12/12/2019 12:46 PM Signed Received returning call from patient, who reports doing fairly well, including no SOB/HICKS, denies chest tightness (has not had any chest tightness or anginal symptoms since his initial [facility] hospital stay). He reports doing pretty good actually and feeling better since he got started on some new medications: Metoprolol and Lasix from Dr. Rondon. Regarding his DM, he has some improvement after adjustments made on his medications, although blood sugars are still high. He expressed that he is anxiously wanting to get the surgery done and over with. As a result of the 11/22/19 order by [facility] Director Deborah Tineo M.D. to cancel non-essential surgeries that would use PPE, unless special criteria are met, I have reviewed the clinical record for this patient and have determined that the scheduled procedure meets the criteria to go forward because there is a threat to the patient's life if the surgery or procedure is not performed and there is a risk of rapidly worsening to severe symptoms. I will also forward and have Dr. Mack review his case. Thanks. Cortez Nagel APRN.ANGE Allergies As of Date: 12/12/2019 (No Known Allergies) Date Reviewed: 11/23/2019 Reviewed by: Kyung Oreilly LPN - Fully Assessed Reason for Visit: Returning Patient's Call [[phone]] Prescriptions as of 12/12/2019 Sig: ASPIRIN 81 MG CHEWABLE TABLET Take 81 mg by mouth once tariq* FUROSEMIDE 40 MG TABLET Take 1 tablet by mouth once d* METOPROLOL SUCCINATE ER 25 MG* Take 50 mg by mouth once tariq* IPRATROPIUM BROMIDE INHALATION Inhale 1 Puff as instructed o* FLUTICASONE 0.05 % LOTION-EMO* Apply 1 Surprise to affected are* ACARBOSE 100 MG TABLET Take 100 mg by mouth three ti* AMLODIPINE 10 MG TABLET Take 10 mg by mouth once tariq* ATORVASTATIN 80 MG TABLET Take 80 mg by mouth once tariq* GLIMEPIRIDE 2 MG TABLET Take 2 mg by mouth daily with* INDAPAMIDE 1.25 MG TABLET Take 1.25 mg by mouth once da* LOSARTAN 100 MG TABLET Take 100 mg by mouth once miguel* LEVOCETIRIZINE 5 MG TABLET Take 5 mg by mouth once daily* METFORMIN 1,000 MG TABLET Take 1,000 mg by mouth twice * PIOGLITAZONE 45 MG TABLET Take 45 mg by mouth once tariq* TEMAZEPAM 15 MG CAPSULE Take 15 mg by mouth daily at * TESTOSTERONE CYPIONATE 200 MG* Inject intramuscularly. Every* Problem List As Of Date: 12/12/2019 (None) Encounter Status:Closed by CORTEZ NAGEL CNP on 12/12/19 [facility] HOSPon 12-12-2019 HOSP Patient:Hilaria Woo MRN: Height:5' 11(1.803 m) Weight:310 lb (140.615 kg) Outpatient Medications as of 12/20/19: ACCU-CHEK GUIDE test strip ACCU-CHEK FASTCLIX LANCET DRUM lancets insulin glargine,hum.rec.anlog (BASAGLAR KWIKPEN U-100 INSULIN SUBCUTANEOUS) liraglutide (VICTOZA) 0.6 mg/ 0.1 ml subcutaneous pen injector gabapentin (NEURONTIN) 100 mg capsule aspirin 81 mg chewable tablet furosemide (LASIX) 40 mg tablet metoprolol succinate ER (TOPROL XL) 25 mg 24 hr tablet IPRATROPIUM BROMIDE INHALATION fluticasone-emollient no.65 0.05 % ktot acarbose (PRECOSE) 100 mg tablet amLODIPine (NORVASC) 10 mg tablet atorvastatin (LIPITOR) 80 mg tablet glimepiride (AMARYL) 2 mg tablet indapamide (LOZOL) 1.25 mg tablet losartan (COZAAR) 100 mg tablet Levocetirizine 5 mg tablet metFORMIN (GLUCOPHAGE) 1,000 mg tablet temazepam (RESTORIL) 15 mg testosterone cypionate (DEPO-TESTOSTERONE) 200 mg/mL injection Admission/Clinic Administered Medications as of 12/20/19: cold induction cardioplegia solution 500 mL maintenance cardioplegia solution 1,000 mL heparin 3,000 Units in NaCl 0.9% 500 mL irrigation PHENYLephrine 20 mg in NaCl 0.9% 250 mL (YAMILKA-SYNEPHRINE) aminocaproic acid 25 g in NaCl 0.9% 250 mL (AMicAR) dexmedetomidine 400 mcg in NaCl 0.9% 100 mL (PRECEDEX) EPINEPHrine 4 mg in NaCl 0.9% 250 mL insulin regular iv infusion 100 units in NaCl 0.9% 100 mL - AK CARD SURG NOMOGRAM nitroglycerin 100 mg in D5W 250 mL NORepinephrine 16 mg in NaCl 0.9% 250 mL (LEVOPHED) PHENYLephrine iv infusion 10 mg in NaCl 0.9% 250 mL (YAMILKA-SYNEPHRINE) Problem List: No problem list on file for this patient. Allergies: No Known Allergies Date Verified:12/16/19 Lab Values Lab Value Units Date High Low POTA* 3.9 mmol/L 12/13/2019 5.1 3.7 AUGUSTUS* 42.1 % 12/13/2019 51.0 40.1 Progress Notes ([facility]): Rebecca Belle LPN 12/14/2019 8:39 AM Signed Hilaria called stating that he would like Ashleigh to know that he has an appointment with his PCP today and would call her later with an update. Thanks, Rebecca Belle LPN Progress Notes ([facility]): Cortez Nagel APRN.BULL WHEEL WORKER, BULL WHEEL WORKER 12/13/2019 11:42 AM Signed UPDATED HISTORY AND PHYSICAL EXAMINATION SERVICE DATE: 12/13/2019 SERVICE TIME: 10:36 AM PHYSICAL EXAM MUST BE COMPLETED ON ADMISSION The History and Physical (completed in the past 30 days) has been reviewed and the patient has been examined. The contents accurately reflect the patient's condition with the following additions or revisions since the HANDP was completed. Examination indicates no changes. LUNGS: Lungs clear to auscultation, Good diaphragmatic excursion CARDIAC: Normal S1 and S2; no rubs, murmurs, or gallops Rhythm: regular rate and rhythm Rate: normal Provisional Diagnosis/Treatment Plan: CABG -surgery date on 12/19/[address] Mack - HAND P updated, and is consistent with recent evaluation with Dr. Mack -reviewed all pre-op labs, images and reports -MRSA swap done today in office -pre-op teaching and consultation done -CHG solution given to patient along with instructions -contact offered for further concerns -Pre-op nutritional drinks provided along with instruction - Patient is to take BB, ASA, Neurontin and Tylenol on AM DOS -MUPIROCIN script is given This HANDP can be found in the Electronic Medical Record dated 11/23/2019. SIGNATURE: Cortez Nagel APRN.CNP PATIENT NAME: Hilaria Woo DATE: December 13, 2019 TIME: 10:36 AM PAGER: [phone] Cortez Nagel APRN.CNP, CNP 12/13/2019 10:51 AM Addendum [facility] Pre-Admission Patient Instruction You are scheduled for surgery (Outpatient/Inpatient) located on the 2nd Floor on: 12/19/2019 Please report to the 2nd Floor Surgical Waiting Area at: 6 AM Do not stop at front entrance registration. Come in the Front Doors / Main Entrance 1. Do not eat or drink anything, including water and coffee, after 12 AM on the morning of your surgery. This is important because if you do, your surgery may have to be cancelled. Eat a light supper the evening before surgery or follow specific doctor's instructions. 2. Oral hygiene and a shower or bath is required the evening before or the morning of surgery. Use the Hibiclens body wash supplied to you today. 3. Do not chew gum the morning of surgery. 4. Notify your doctor if you develop a cold, sore throat, fever or other changes in your physical condition. 5. No alcohol 24 hours before or after surgery and refrain from smoking the morning of surgery and immediately following surgery. 6. Leave valuables such as rings, watches and money at home. Remove all make-up and nail vincentian before admission. We need to check your circulation. Remove jewelry from all piercings, tongue included, as no metal can go into surgery. Wear loose, comfortable clothing that will accommodate bandages. 7. You will be asked to remove glasses and contacts prior to surgery. Please bring a case. We will provide you a locker for your belongings. 8. Your length of stay will be determined by your surgeon and the anesthesiologist, as well as your post-op recovery. 9. Due to COVID 19 pandemic, no visitors is allowed in the hospital. You will to be dropped off at the hospital main entrance and provide us the point of contact for OR updates. On the morning of surgery, they will be instructed on how to download an ronal to their smart phone to receive updates through your surgery. 10. Please bring a list of any medication you are taking including dose and the condition for which you are being treated. Preparation for surgery: ? Please check your blood sugar prior to coming to the hospital on the day of your surgery. ? Stop Anticoagulant (blood thinners) NA ? Stop losartan 24 hours before surgery: 12/18/2019 Ensure Drinks Instruction: ? 2 protein shakes daily for 5 days ? 2 presurgical clear drinks the night before surgery ? 1 presurgical clear drink 2 hrs before surgery Medication Notes: (Please take these medications below with small sip of water on the morning of surgery) ? Aspirin 81 mg ? Beta Ronen: take your daily scheduled Metoprolol ? Mupirocin ointment: Please use a pea sized amount on a q-tip to apply inside your nose twice daily for five days prior to surgery. Start tomorrow ? Take 200 mg of Neurontin(gabapentin) along with 1000 mg of Tylenol 2 hrs before surgery. ? ALL DRINKS AND MEDICATION SHOULD BE TAKEN NO LATER THAN 5:30 AM Cortez Nagel APRN.ANGE Previous Version Normal [facility] 12-09-2019 JESSICA Telephone (AKFANGD) HILARIA WOO ([id number]) 1960 M Date Time Provider Department 12/09/19 CORTEZ NAGEL (SANJUANITA, ANGE) GAURAV During your visit today, we recorded the following information about you: Cortez Nagel APRN.ANGE CASSIDY 12/09/2019 4:04 PM Signed Called to patient to follow up, LVMOP. Contact left for call back. Cortez Nagel APRN.ANGE Allergies As of Date: 12/09/2019 (No Known Allergies) Date Reviewed: 11/23/2019 Reviewed by: Kyung Oreilly LPN - Fully Assessed Reason for Visit: Follow Up Phone Call [[id number]] Prescriptions as of 12/09/2019 Sig: ASPIRIN 81 MG CHEWABLE TABLET Take 81 mg by mouth once tariq* FUROSEMIDE 40 MG TABLET Take 1 tablet by mouth once d* METOPROLOL SUCCINATE ER 25 MG* Take 50 mg by mouth once tariq* IPRATROPIUM BROMIDE INHALATION Inhale 1 Puff as instructed o* FLUTICASONE 0.05 % LOTION-EMO* Apply 1 Surprise to affected are* ACARBOSE 100 MG TABLET Take 100 mg by mouth three ti* AMLODIPINE 10 MG TABLET Take 10 mg by mouth once tariq* ATORVASTATIN 80 MG TABLET Take 80 mg by mouth once tariq* GLIMEPIRIDE 2 MG TABLET Take 2 mg by mouth daily with* INDAPAMIDE 1.25 MG TABLET Take 1.25 mg by mouth once da* LOSARTAN 100 MG TABLET Take 100 mg by mouth once miguel* LEVOCETIRIZINE 5 MG TABLET Take 5 mg by mouth once daily* METFORMIN 1,000 MG TABLET Take 1,000 mg by mouth twice * PIOGLITAZONE 45 MG TABLET Take 45 mg by mouth once tariq* TEMAZEPAM 15 MG CAPSULE Take 15 mg by mouth daily at * TESTOSTERONE CYPIONATE 200 MG* Inject intramuscularly. Every* Problem List As Of Date: 12/09/2019 (None) Encounter Status:Closed by CORTEZ NAGEL CNP on 12/09/19 [facility] [place] 11-25-2019 [facility] Telephone (AGMERLINACC) HILARIA WOO ([id number]) 1960 M Date Time Provider Department 11/25/19 BISHOP MACK During your visit today, we recorded the following information about you: Refugio Roca 11/25/2019 11:04 AM Signed Pre-admission instructions 12/13/19 11:00am with Ashleigh Nagel CNP. Pt will have labs AND CXR on 12/13/19 at [facility] prior to office visit. Since he is coming from [facility]. CABG 12/19/19 arrival time 6:00am procedure 7:30am at [facility]. Appointment information emailed to [email or web address] per pt's request. Refugio Roca 12/12/2019 1:48 PM Signed Addended by: REFUGIO ROCA on: 12/12/2019 01:48 PM Modules accepted: Orders Cee Patton 12/22/2019 2:33 PM Signed I have r/s the surgery for 01/02/20 at 7:30 am with a 6 am arrival time. The patient will need the Gabapentin called into [facility], as he took the last ones day of surgery. Thanks Umang Gilliam APRN.ANGE CASSIDY 12/22/2019 3:22 PM Signed Addended by: UMANG GILLIAM CNP on: 12/22/2019 03:22 PM Modules accepted: Orders Cee Patton 12/23/2019 9:27 AM Signed Patient has been r/s again to 12/26/19 at 8 am with Callie. was notified and agreeable of change. Allergies As of Date: 11/25/2019 (No Known Allergies) Date Reviewed: 11/23/2019 Reviewed by: Kyung Oreilly LPN - Fully Assessed Reason for Visit: Schedule Surgery [1330] Orders [681] Primary Visit Diagnosis:Preoperative testing [Z01.818] Other Visit Diagnoses:Coronary artery disease involving [place] coronary artery of [place] heart with unstable angina pectoris (HCC) [I25.110] Chronic diastolic CHF (congestive heart failure) (HCC) [I50.32] Diabetes mellitus without complication (HCC) [E11.9] Thyroid disorder screen [Z13.29] Order(s):CBC [SQCBC] Order #: [id number] FUTURE TYPE + SCREEN [SQTSCR] Order #: [id number] FUTURE RBC PRODUCTS [3251355] Order #: [id number] FUTURE COMP METABOLIC PANEL [SQCMP] Order #: [id number] FUTURE PROTHROMBIN TIME/PT [SQPT] Order #: [id number] FUTURE HGB A1C [ZBFTI3F] Order #: [id number] FUTURE MAGNESIUM BLD [SQMG1] Order #: [id number] FUTURE MRSA CULTURE SCREEN [SQMRSASC] Order #: [id number] FUTURE UA WITH CULTURE IF INDICATED [SQUACII] Order #: [id number] FUTURE XR CHEST 2V FRONTAL/LAT [[id number]] Order #: [id number] FUTURE TSH BLD [SQTSH] Order #: [id number] FUTURE SURGICAL REQUEST - ELECTIVE [[id number]] Order #: [id number]: 1 gabapentin (NEURONTIN) 100 mg capsuleTake 2 capsules by mouth once daily for 1 day. Take morning of surgeryDisp: 2 capsuleRfl: 0 Prescriptions as of 11/25/2019 Sig: GABAPENTIN 100 MG CAPSULE Take 2 capsules by mouth once* ASPIRIN 81 MG CHEWABLE TABLET Take 81 mg by mouth once tariq* FUROSEMIDE 40 MG TABLET Take 1 tablet by mouth once d* METOPROLOL SUCCINATE ER 25 MG* Take 50 mg by mouth once tariq* IPRATROPIUM BROMIDE INHALATION Inhale 1 Surprise as instructed * FLUTICASONE 0.05 % LOTION-EMO* Apply 1 Surprise to affected are* ACARBOSE 100 MG TABLET Take 100 mg by mouth three ti* AMLODIPINE 10 MG TABLET Take 10 mg by mouth once tariq* ATORVASTATIN 80 MG TABLET Take 80 mg by mouth once tariq* GLIMEPIRIDE 2 MG TABLET Take 2 mg by mouth daily with* INDAPAMIDE 1.25 MG TABLET Take 1.25 mg by mouth once da* LOSARTAN 100 MG TABLET Take 100 mg by mouth once miguel* LEVOCETIRIZINE 5 MG TABLET Take 5 mg by mouth once daily* METFORMIN 1,000 MG TABLET Take 1,000 mg by mouth twice * TEMAZEPAM 15 MG CAPSULE Take 15 mg by mouth daily at * TESTOSTERONE CYPIONATE 200 MG* Inject intramuscularly. Every* X PIOGLITAZONE 45 MG TABLET Take 45 mg by mouth once tariq* Problem List As Of Date: 11/25/2019 (None) Prescriptions ordered this encounter Disp Refills Start End GABAPENTIN 100 MG CAPSULE 2 ca* 0 12/22/2019 12/23/2019 Route: ORAL Sig: Take 2 capsules by mouth once daily for 1 day. Take morning of surgery Encounter Status:Closed by UMANG GILLIAM CNP on 11/25/19 [facility] ANGEOlya 11-24-2019 CNPN Telephone (Cylex) HILARIA WOO ([id number]) 1960 M Date Time Provider Department 11/24/19 BISHOP MACK AGMERLINACC During your visit today, we recorded the following information about you: Refugio Roca 11/24/2019 10:50 AM Signed Left message to contact office to discuss potential surgery dates for CABG and pre-admission instructions with QUILL REAMER. Allergies As of Date: 11/24/2019 (No Known Allergies) Date Reviewed: 11/23/2019 Reviewed by: Kyung Oreilly LPN - Fully Assessed Reason for Visit: LMTCB [1226] Prescriptions as of 11/24/2019 Sig: ASPIRIN 81 MG CHEWABLE TABLET Take 81 mg by mouth once tariq* FUROSEMIDE 40 MG TABLET Take 1 tablet by mouth once d* METOPROLOL SUCCINATE ER 25 MG* Take 50 mg by mouth once tariq* IPRATROPIUM BROMIDE INHALATION Inhale 1 Puff as instructed o* FLUTICASONE 0.05 % LOTION-EMO* Apply 1 Surprise to affected are* ACARBOSE 100 MG TABLET Take 100 mg by mouth three ti* AMLODIPINE 10 MG TABLET Take 10 mg by mouth once tariq* ATORVASTATIN 80 MG TABLET Take 80 mg by mouth once tariq* GLIMEPIRIDE 2 MG TABLET Take 2 mg by mouth daily with* INDAPAMIDE 1.25 MG TABLET Take 1.25 mg by mouth once da* LOSARTAN 100 MG TABLET Take 100 mg by mouth once miguel* LEVOCETIRIZINE 5 MG TABLET Take 5 mg by mouth once daily* METFORMIN 1,000 MG TABLET Take 1,000 mg by mouth twice * PIOGLITAZONE 45 MG TABLET Take 45 mg by mouth once tariq* TEMAZEPAM 15 MG CAPSULE Take 15 mg by mouth daily at * TESTOSTERONE CYPIONATE 200 MG* Inject intramuscularly. Every* Problem List As Of Date: 11/24/2019 (None) Encounter Status:Closed by REFUGIO ROCA on 11/24/19 [facility] CNOVon 11-23-2019 CNOV Office Visit (AGVASACC) HILARIA WOO ([id number]) 1960 M Date Time Provider Department 11/23/19 1:00 PM BISHOP MACK AGVASACC During your visit today, we recorded the following information about you: Pulse Respiration Blood pressure Weight 72/minute 16/minute 134/72 139.7 kg Height 1.803 m Kyung Oreilly LPN 11/23/2019 1:12 PM Signed CARDIAC REHAB 5 METER WALK TEST SERVICE DATE: 11/23/2019 SERVICE TIME: 1307 ASSESSMENT: 1. 4.24 sec 2. 4.28 sec 3. 4.22 sec SIGNATURE: Kyung Oreilly LPN PATIENT NAME: Hilaria Woo DATE: November 23, 2019 TIME: 1:10 PM PAGER/CONTACT #: [phone] Umang Gilliam APRN.ANGE CASSIDY 11/23/2019 2:20 PM Signed [facility] Adult Cardiac Surgery Database Version 2.9 RISK SCORES Procedure: Isolated CAB Risk of Mortality: 1.089% Renal Failure: 1.634% Permanent Stroke: 0.664% Prolonged Ventilation: 8.577% DSW Infection: 0.457% Reoperation: 2.212% Morbidity or Mortality: 11.930% Short Length of Stay: 47.922% Long Length of Stay: 4.116% Umang Gilliam APRN.CNP, CNP 11/23/2019 2:07 PM Addendum You are seeing Dr Mack today at the request of Dr Rondon for heart failure symptoms and severe coronary artery disease and evaluation for coronary artery disease. He agrees with the recommendations for bypass surgery. Surgery will be scheduled in the near future. Prior to surgery, you will return to this office for pre-operative test review and teaching. We will call you to schedule this appointment will be scheduled at the same time surgery is scheduled. Please feel free to contact us if you have any questions. Umang Gilliam, SANJUANITA.[facility] [phone] Bishop Mack MD 11/23/2019 2:20 PM Signed CARDIOTHORACIC SURGERY CONSULT / HANDP SERVICE DATE: 11/23/2019 SERVICE TIME: 2:10 PM Subjective PRIMARY SERVICE: Cardiothoracic Surgery CHIEF COMPLAINT: MV CAD HPI: This is a 59 year old man referred for evaluation of MV CAD and for consideration for MV CABG. He has no previous cardiac or vascular history. He has been developing progressive exertional dyspnea and chest tightness. He was admitted to [facility] last week with dyspnea and found to be in CHF with come pulmonary congestion and lower extremity edema. He responded well to medical therapy including diuresis. Left heart cath showed severe MV CAD including severe lesions in the LAD, ramus, and circumflex branches with an occluded RCA filling via left to right collaterals. Echo shows EF 65%, mild LVH, and mild . Risk factors for CAD include: +FH (brother); HTN; HLD; obesity; DM (poorly controlled). PAST MEDICAL HISTORY Diagnosis Date - Abnormal cardiac enzyme level - Cardiomegaly - Chest pain - CHF (congestive heart failure) (HCC) - Diabetes mellitus, type II (HCC) - DVT (deep venous thrombosis) (HCC) - HTN (hypertension) - Hyperlipidemia - Obesity - SOB (shortness of breath) PAST SURGICAL HISTORY Procedure Laterality Date - CARDIAC CATH 11/18/2019 [facility] - ECHO 11/17/2019 [facility] FAMILY HISTORY Problem Relation Age of Onset - Hypertension Mother - Heart disease Father - Hypertension Father Social History Tobacco Use - Smoking status: Never Smoker - Smokeless tobacco: Never Used Substance Use Topics - Alcohol use: Not Currently - Drug use: Never (Not in a hospital admission) aspirin 81 mg chewable tablet, Take 81 mg by mouth once daily. furosemide (LASIX) 40 mg tablet, Take 1 tablet by mouth once daily. metoprolol succinate ER (TOPROL XL) 25 mg 24 hr tablet, Take 50 mg by mouth once daily. IPRATROPIUM BROMIDE INHALATION, Inhale 1 Puff as instructed once daily. fluticasone-emollient no.65 0.05 % ktot, Apply 1 Surprise to affected area twice daily. acarbose (PRECOSE) 100 mg tablet, Take 100 mg by mouth three times daily with meals. amLODIPine (NORVASC) 10 mg tablet, Take 10 mg by mouth once daily. atorvastatin (LIPITOR) 80 mg tablet, Take 80 mg by mouth once daily. glimepiride (AMARYL) 2 mg tablet, Take 2 mg by mouth daily with breakfast. losartan (COZAAR) 100 mg tablet, Take 100 mg by mouth once daily. metFORMIN (GLUCOPHAGE) 1,000 mg tablet, Take 1,000 mg by mouth twice daily with meals. pioglitazone (ACTOS) 45 mg tablet, Take 45 mg by mouth once daily. temazepam (RESTORIL) 15 mg, Take 15 mg by mouth daily at bedtime. indapamide (LOZOL) 1.25 mg tablet, Take 1.25 mg by mouth once daily. Levocetirizine 5 mg tablet, Take 5 mg by mouth once daily. testosterone cypionate (DEPO-TESTOSTERONE) 200 mg/mL injection, Inject intramuscularly. Every 2 months ALLERGIES No Known Allergies REVIEW OF SYSTEMS: REVIEW OF SYSTEMS: GENERAL: Fever - No Chills - No Night sweats - No Changes in weight - No NEUROLOGICAL: Headaches - No Seizures - No Passing out - No History of stroke or mini-stroke - No Head injury or trauma - No Numbness, tingling or sensation of pins and needles - No HEAD, EYES, EARS, NOSE, AND THROAT: Changes in hearing - No Changes in vision - No Nose bleeds - No CARDIOVASCULAR: Chest pain or pressure - Yes Palpitations - No Valvular heart disease - No High blood pressure - Yes Irregular heart rate - No Heart attack - No Heart failure - Yes High Cholesterol - Yes History of rheumatic fever - No History of Scarlet fever - No History of atrial fibrillation - No RESPIRATORY: Cough - No Wheezing - No Shortness of breath - No Shortness of breath with exertion - Yes Coughing up blood - No Asthma - No Bronchitis - No Blood clot in your lung - No GASTROINTESTINAL: Abdominal discomfort - No Nausea - No Vomiting - No Diarrhea - No Constipation - No Difficulty swallowing - No Pain with swallowing - No Stomach pain after eating - No Passing blood with bowel movement - No Black tarry stool - No History of stomach ulcers - No Acid reflux or heartburn - No GENITOURINARY: GENITOURINARY: EXTREMITY: Edema (swelling) - yes Intermittent claudication (pain with walking) - No MUSCULOSKELETAL: Joint pain - No Joint swelling - No Back pain - No Muscle pain or ache - No Skin: Rash - No Lesions - No Sores - No Ulcers - No Tenderness - No Skin cancer - No HEMATOLOGY: Bleeding disorder - No Easy bruising - No Anemia - No Cancer - No Blood transfusions - No Blood clots - No ENDOCRINE: Diabetes - Yes Thyroid disorder - No PSYCHOLOGICAL: Depression - No Anxiety - No OTHER: Objective PHYSICAL EXAM: BP 134/72 (BP Site: Left Arm, BP Position: Sitting) Pulse 72 Resp 16 Ht 5' 11 (1.803 m) Wt (!) 308 lb (139.7 kg) SpO2 97% BMI 42.96 kg/m? Body surface area is 2.65 meters squared. On examination, he appears well and is breathing comfortably. Vitals signs are BP 134/72 (BP Site: Left Arm, BP Position: Sitting) Pulse 72 Resp 16 Ht 5' 11 (1.803 m) Wt (!) 308 lb (139.7 kg) SpO2 97% BMI 42.96 kg/m? . There is no JVD. No cervical or supraclavicular adenopathy is palpated. The chest is symmetrical without deformity. Breath sounds are clear bilaterally. The cardiac rhythm is regular. There is a 2/6 soft systolic murmur. The carotid, subclavian, and radial pulses are 2+ and equal bilaterally. The abdomen is soft and non-tender. There are no abdominal masses. There is no hepatojugular reflux. There is trace pretibial edema. There is no clubbing or cyanosis. STS RISK CALCULATOR: 1% STS Calculator Assessment/Plan in summary, Hilaria Woo is a 59 year old man with accelerating angina and recent episode of diastolic CHF who is found to have sever MV CAD with normal LV function. I agree with the recommendation for MV CABG. The risks, benefits, and anticipated outcomes of the procedure; the risks and benefits of the alternatives to the procedure; and the roles and tasks of the personnel to be involved were discussed with the patient and he consents to the procedure and agrees to proceed. These findings will be communicated back to the requesting provider electronically. SIGNATURE: Bishop Mack MD PATIENT NAME: Hilaria Woo DATE: November 23, 2019 TIME: 2:10 PM PAGER/CONTACT #: [phone] Referring Provider: IAN RONDON [[id number]] Allergies As of Date: 11/23/2019 (No Known Allergies) Date Reviewed: 11/23/2019 Reviewed by: Kyung Oreilly LPN - Fully Assessed Reason for Visit: New Patient Evaluation [154] Cmt: Rfd by Dr. Rondon Primary Visit Diagnosis:Coronary artery disease involving [place] coronary artery of [place] heart with unstable angina pectoris ([facility]) [I25.110] Other Visit Diagnosis:Chronic diastolic CHF (congestive heart failure) ([facility]) [I50.32] Order(s):furosemide (LASIX) 40 mg tabletTake 1 tablet by mouth once daily.Disp: Rfl: Prescriptions as of 11/23/2019 Sig: ASPIRIN 81 MG CHEWABLE TABLET Take 81 mg by mouth once tariq* FUROSEMIDE 40 MG TABLET Take 1 tablet by mouth once d* METOPROLOL SUCCINATE ER 25 MG* Take 50 mg by mouth once tariq* IPRATROPIUM BROMIDE INHALATION Inhale 1 Puff as instructed o* FLUTICASONE 0.05 % LOTION-EMO* Apply 1 Surprise to affected are* ACARBOSE 100 MG TABLET Take 100 mg by mouth three ti* AMLODIPINE 10 MG TABLET Take 10 mg by mouth once tariq* ATORVASTATIN 80 MG TABLET Take 80 mg by mouth once tariq* GLIMEPIRIDE 2 MG TABLET Take 2 mg by mouth daily with* LOSARTAN 100 MG TABLET Take 100 mg by mouth once miguel* METFORMIN 1,000 MG TABLET Take 1,000 mg by mouth twice * PIOGLITAZONE 45 MG TABLET Take 45 mg by mouth once tariq* TEMAZEPAM 15 MG CAPSULE Take 15 mg by mouth daily at * INDAPAMIDE 1.25 MG TABLET Take 1.25 mg by mouth once da* LEVOCETIRIZINE 5 MG TABLET Take 5 mg by mouth once daily* TESTOSTERONE CYPIONATE 200 MG* Inject intramuscularly. Every* Problem List As Of Date: 11/23/2019 (None) Other instructions from your clinician: You are seeing Dr Mack today at the request of Dr Rondon for heart failure symptoms and severe coronary artery disease and evaluation for coronary artery disease. He agrees with the recommendations for bypass surgery. Surgery will be scheduled in the near future. Prior to surgery, you will return to this office for pre-operative test review and teaching. We will call you to schedule this appointment will be scheduled at the same time surgery is scheduled. Please feel free to contact us if you have any questions. Umang GilliamSANJUANITA.[facility] [phone] Visit Notes: >> Kyung Denilson RAYGOZA ThuNov 23, 2019 1:10 PM Status: Signed CARDIAC REHAB 5 METER WALK TEST SERVICE DATE: 11/23/2019 SERVICE TIME: 1307 ASSESSMENT: 1. 4.24 sec 2. 4.28 sec 3. 4.22 sec SIGNATURE: Kyung Oreilly LPN PATIENT NAME: Hilaria Woo DATE: November 23, 2019 TIME: 1:10 PM PAGER/CONTACT #: [phone] Prescriptions ordered this encounter Disp Refills Start End FUROSEMIDE 40 MG TABLET 11/23/2019 Class: Med Update Route: ORAL Sig: Take 1 tablet by mouth once daily. Medications Discontinued During This Encounter furosemide (LASIX) 40 mg tablet 11/23/2019 Class: Historical Med Route: ORAL Sig: Take 40 mg by mouth twice daily. Disc: Adjust Sig - Block E-Cancel Level of Service: NEW PATIENT VISIT LEVEL 5 [[id number]] Letter Text Encounter Status:Closed by BISHOP MACK MD on 11/23/19 [facility] HISTORY PHYSICALon 0 HISTORY PHYSICAL HNO ID: [id number] Author: Bishop Mack Service: ? Author Type: Physician Type: HANDP Filed: 11/23/2019 2:20 PM Note Text: CARDIOTHORACIC SURGERY CONSULT / HANDP SERVICE DATE: 11/23/2019 SERVICE TIME: 2:10 PM Subjective PRIMARY SERVICE: Cardiothoracic Surgery CHIEF COMPLAINT: MV CAD HPI: This is a 59 year old man referred for evaluation of MV CAD and for consideration for MV CABG. He has no previous cardiac or vascular history. He has been developing progressive exertional dyspnea and chest tightness. He was admitted to [facility] last week with dyspnea and found to be in CHF with come pulmonary congestion and lower extremity edema. He responded well to medical therapy including diuresis. Left heart cath showed severe MV CAD including severe lesions in the LAD, ramus, and circumflex branches with an occluded RCA filling via left to right collaterals. Echo shows EF 65%, mild LVH, and mild . Risk factors for CAD include: +FH (brother); HTN; HLD; obesity; DM (poorly controlled). PAST MEDICAL HISTORY Diagnosis Date - Abnormal cardiac enzyme level - Cardiomegaly - Chest pain - CHF (congestive heart failure) (HCC) - Diabetes mellitus, type II (HCC) - DVT (deep venous thrombosis) (HCC) - HTN (hypertension) - Hyperlipidemia - Obesity - SOB (shortness of breath) PAST SURGICAL HISTORY Procedure Laterality Date - CARDIAC CATH 11/18/2019 [facility] - ECHO 11/17/2019 [facility] FAMILY HISTORY Problem Relation Age of Onset - Hypertension Mother - Heart disease Father - Hypertension Father Social History Tobacco Use - Smoking status: Never Smoker - Smokeless tobacco: Never Used Substance Use Topics - Alcohol use: Not Currently - Drug use: Never (Not in a hospital admission) aspirin 81 mg chewable tablet, Take 81 mg by mouth once daily. furosemide (LASIX) 40 mg tablet, Take 1 tablet by mouth once daily. metoprolol succinate ER (TOPROL XL) 25 mg 24 hr tablet, Take 50 mg by mouth once daily. IPRATROPIUM BROMIDE INHALATION, Inhale 1 Puff as instructed once daily. fluticasone-emollient no.65 0.05 % ktot, Apply 1 Surprise to affected area twice daily. acarbose (PRECOSE) 100 mg tablet, Take 100 mg by mouth three times daily with meals. amLODIPine (NORVASC) 10 mg tablet, Take 10 mg by mouth once daily. atorvastatin (LIPITOR) 80 mg tablet, Take 80 mg by mouth once daily. glimepiride (AMARYL) 2 mg tablet, Take 2 mg by mouth daily with breakfast. losartan (COZAAR) 100 mg tablet, Take 100 mg by mouth once daily. metFORMIN (GLUCOPHAGE) 1,000 mg tablet, Take 1,000 mg by mouth twice daily with meals. pioglitazone (ACTOS) 45 mg tablet, Take 45 mg by mouth once daily. temazepam (RESTORIL) 15 mg, Take 15 mg by mouth daily at bedtime. indapamide (LOZOL) 1.25 mg tablet, Take 1.25 mg by mouth once daily. Levocetirizine 5 mg tablet, Take 5 mg by mouth once daily. testosterone cypionate (DEPO-TESTOSTERONE) 200 mg/mL injection, Inject intramuscularly. Every 2 months ALLERGIES No Known Allergies REVIEW OF SYSTEMS: REVIEW OF SYSTEMS: GENERAL: Fever - No Chills - No Night sweats - No Changes in weight - No NEUROLOGICAL: Headaches - No Seizures - No Passing out - No History of stroke or mini-stroke - No Head injury or trauma - No Numbness, tingling or sensation of pins and needles - No HEAD, EYES, EARS, NOSE, AND THROAT: Changes in hearing - No Changes in vision - No Nose bleeds - No CARDIOVASCULAR: Chest pain or pressure - Yes Palpitations - No Valvular heart disease - No High blood pressure - Yes Irregular heart rate - No Heart attack - No Heart failure - Yes High Cholesterol - Yes History of rheumatic fever - No History of Scarlet fever - No History of atrial fibrillation - No RESPIRATORY: Cough - No Wheezing - No Shortness of breath - No Shortness of breath with exertion - Yes Coughing up blood - No Asthma - No Bronchitis - No Blood clot in your lung - No GASTROINTESTINAL: Abdominal discomfort - No Nausea - No Vomiting - No Diarrhea - No Constipation - No Difficulty swallowing - No Pain with swallowing - No Stomach pain after eating - No Passing blood with bowel movement - No Black tarry stool - No History of stomach ulcers - No Acid reflux or heartburn - No GENITOURINARY: GENITOURINARY: EXTREMITY: Edema (swelling) - yes Intermittent claudication (pain with walking) - No MUSCULOSKELETAL: Joint pain - No Joint swelling - No Back pain - No Muscle pain or ache - No Skin: Rash - No Lesions - No Sores - No Ulcers - No Tenderness - No Skin cancer - No HEMATOLOGY: Bleeding disorder - No Easy bruising - No Anemia - No Cancer - No Blood transfusions - No Blood clots - No ENDOCRINE: Diabetes - Yes Thyroid disorder - No PSYCHOLOGICAL: Depression - No Anxiety - No OTHER: Objective PHYSICAL EXAM: BP 134/72 (BP Site: Left Arm, BP Position: Sitting) Pulse 72 Resp 16 Ht 5' 11 (1.803 m) Wt (!) 308 lb (139.7 kg) SpO2 97% BMI 42.96 kg/m? Body surface area is 2.65 meters squared. On examination, he appears well and is breathing comfortably. Vitals signs are BP 134/72 (BP Site: Left Arm, BP Position: Sitting) Pulse 72 Resp 16 Ht 5' 11 (1.803 m) Wt (!) 308 lb (139.7 kg) SpO2 97% BMI 42.96 kg/m? . There is no JVD. No cervical or supraclavicular adenopathy is palpated. The chest is symmetrical without deformity. Breath sounds are clear bilaterally. The cardiac rhythm is regular. There is a 2/6 soft systolic murmur. The carotid, subclavian, and radial pulses are 2+ and equal bilaterally. The abdomen is soft and non-tender. There are no abdominal masses. There is no hepatojugular reflux. There is trace pretibial edema. There is no clubbing or cyanosis. STS RISK CALCULATOR: 1% STS Calculator Assessment/Plan in summary, Hilaria Woo is a 59 year old man with accelerating angina and recent episode of diastolic CHF who is found to have sever MV CAD with normal LV function. I agree with the recommendation for MV CABG. The risks, benefits, and anticipated outcomes of the procedure; the risks and benefits of the alternatives to the procedure; and the roles and tasks of the personnel to be involved were discussed with the patient and he consents to the procedure and agrees to proceed. These findings will be communicated back to the requesting provider electronically. SIGNATURE: Bishop Mack MD PATIENT NAME: Hilaria Woo DATE: November 23, 2019 TIME: 2:10 PM PAGER/CONTACT #: [phone] Normal [facility] PROGRESSon 11-23-2019 PROGRESS HNO ID: [id number] Author: Umang Gilliam CNP Service: ? Author Type: Nurse Practitioner Type: Progress Notes Filed: 11/23/2019 2:20 PM Note Text: STS Adult Cardiac Surgery Database Version 2.9 RISK SCORES Procedure: Isolated CAB Risk of Mortality: 1.089% Renal Failure: 1.634% Permanent Stroke: 0.664% Prolonged Ventilation: 8.577% DSW Infection: 0.457% Reoperation: 2.212% Morbidity or Mortality: 11.930% Short Length of Stay: 47.922% Long Length of Stay: 4.116% Normal [facility] Vital Signs Date Time Vital Sign Value Performing Clinician Facility 01-05-2025 10:02040 Body height 182.[address] Josué Rodriguez MD Work Phone: [facility] 01-05-2025 10:02-0400 Body mass index (BMI) [Ratio] 39 kg/m2 Dr. Josué Rodriguez MD Work Phone: [facility] 01-05-2025 10:02-0400 Body weight 130.[address] Josué Rodriguez MD Work Phone: [facility] 01-05-2025 10:02-0400 Diastolic blood pressure 69 mm[Hg] Dr. Josué Rodriguez MD Work Phone: [facility] 01-05-2025 10:02-0400 Heart rate 59 /min Dr. Josué Rodriguez MD Work Phone: [facility] 01-05-2025 10:02-0400 Respiratory rate 16 /min Dr. Josué Rodriguez MD Work Phone: [facility] 01-05-2025 10:02-0400 Systolic blood pressure 103 mm[Hg] Dr. Josué Rodriguez MD Work Phone: [facility] 12-08-2023 07:40-0400 Body height 182.[address] Josué Rodriguez Work Phone: [facility] 12-08-2023 07:40-0400 Body mass index (BMI) [Ratio] 39.3 kg/m2 Dr. Josué Rodriguez Work Phone: [facility] 12-08-2023 07:40-0400 Body temperature 97.1 [degF] Dr. Josué Rodriguez Work Phone: [facility] 12-08-2023 07:40-0400 Body weight 131.[address] Josué Rodriguez Work Phone: [facility] 12-08-2023 07:40-0400 Diastolic blood pressure 63 mm[Hg] Dr. Josué Rodriguez Work Phone: [facility] 12-08-2023 07:40-0400 Heart rate 63 /min Dr. Josué Rodriguez Work Phone: [facility] 12-08-2023 07:40-0400 Respiratory rate 18 /min Dr. Josué Rodriguez Work Phone: [facility] 12-08-2023 07:40-0400 SaO2% (BldA) [Mass fraction] 99 % Dr. Josué Rodriguez Work Phone: [facility] 12-08-2023 07:40-0400 Systolic blood pressure 106 mm[Hg] Dr. Josué Rodriguez Work Phone: [facility] 12-01-2023 09:18-0400 Body mass index (BMI) [Ratio] 54.3 kg/m2 Dr. Josué Rodriguez Work Phone: [facility] 12-01-2023 09:18-0400 Body weight 130.[address] Josué Rodriguez Work Phone: [facility] 12-01-2023 09:18-0400 Diastolic blood pressure 53 mm[Hg] Dr. Josué Rodriguez Work Phone: [facility] 12-01-2023 09:18-0400 Heart rate 63 /min Dr. Josué Rodriguez Work Phone: [facility] 12-01-2023 09:18-0400 Respiratory rate 18 /min Dr. Josué Rodriguez Work Phone: [facility] 12-01-2023 09:18-0400 Systolic blood pressure 106 mm[Hg] Dr. Josué Rodriguez Work Phone: [facility] 05-12-2023 07:42-0400 Body height 154.[address] Josué Rodriguez Work Phone: [facility] 05-12-2023 07:39-0400 Body mass index (BMI) [Ratio] 39 kg/m2 Dr. Josué Rodriguez Work Phone: [facility] 05-12-2023 07:39-0400 Body temperature 97.5 [degF] Dr. Josué Rodriguez Work Phone: [facility] 05-12-2023 07:39-0400 Body weight [address] Josué Rodriguez Work Phone: [facility] 05-12-2023 07:39-0400 Diastolic blood pressure 57 mm[Hg] Dr. Josué Rodriguez Work Phone: [facility] 05-12-2023 07:39-0400 Heart rate 70 /min Dr. Josué Rodriguez Work Phone: [facility] 05-12-2023 07:39-0400 Respiratory rate 18 /min Dr. Josué Rodriguez Work Phone: [facility] 05-12-2023 07:39-0400 SaO2% (BldA) [Mass fraction] 96 % Dr. Josué Rodriguez Work Phone: [facility] 05-12-2023 07:39-0400 Systolic blood pressure 86 mm[Hg] Dr. Josué Rodriguez Work Phone: [facility] 03-03-2023 08:30-0400 Body height 154.[address] Josué Rodriguez Work Phone: [facility] 03-03-2023 08:30-0400 Body mass index (BMI) [Ratio] 54.6 kg/m2 Dr. Josué Rodriguez Work Phone: [facility] 03-03-2023 08:30-0400 Body weight 131.[address] Josué Rodriguez Work Phone: [facility] 03-03-2023 08:30-0400 Diastolic blood pressure 79 mm[Hg] Dr. Josué Rodriguez Work Phone: [facility] 03-03-2023 08:30-0400 Heart rate 67 /min Dr. Josué Rodriguez Work Phone: [facility] 03-03-2023 08:30-0400 Respiratory rate 18 /min Dr. Josué Rodriguez Work Phone: [facility] 03-03-2023 08:30-0400 SaO2% (BldA) [Mass fraction] 96 % Dr. Josué Rodriguez Work Phone: [facility] 03-03-2023 08:30-0400 Systolic blood pressure 123 mm[Hg] Dr. Josué Rodriguez Work Phone: [facility] 05-14-2022 07:41-0400 Body height 154.[address] Josué Rodriguez Work Phone: [facility] Work Phone: 05-14-2022 07:41-0400 Body mass index (BMI) [Ratio] 53.8 kg/m2 Dr. Josué Rodriguez Work Phone: [facility] Work Phone: 05-14-2022 07:41-0400 Body temperature 96.7 [degF] Dr. Josué Rodriguez Work Phone: [facility] Work Phone: 05-14-2022 07:41-0400 Body weight 129.[address] Josué Rodriguez Work Phone: [facility] Work Phone: 05-14-2022 07:41-0400 Diastolic blood pressure 82 mm[Hg] Dr. Josué Rodriguez Work Phone: [facility] Work Phone: 05-14-2022 07:41-0400 Heart rate 54 /min Dr. Josué Rodriguez Work Phone: [facility] Work Phone: 05-14-2022 07:41-0400 Respiratory rate 16 /min Dr. Josué Rodriguez Work Phone: [facility] Work Phone: 05-14-2022 07:41-0400 SaO2% (BldA) [Mass fraction] 99 % Dr. Josué Rodriguez Work Phone: [facility] Work Phone: 05-14-2022 07:41-0400 Systolic blood pressure 127 mm[Hg] Dr. Josué Rodriguez Work Phone: [facility] Work Phone: 10-16-2021 07:49-0500 Body height 154.[address] Josué Rodriguez Work Phone: [facility] Work Phone: 10-16-2021 07:49-0500 Body mass index (BMI) [Ratio] 53.6 kg/m2 Dr. Josué Rodriguez Work Phone: [facility] Work Phone: 10-16-2021 07:49-0500 Body weight 128.[address] Josué Rodriguez Work Phone: [facility] Work Phone: 10-16-2021 07:49-0500 Diastolic blood pressure 85 mm[Hg] Dr. Josué Rodriguez Work Phone: [facility] Work Phone: 10-16-2021 07:49-0500 Heart rate 72 /min Dr. Josué Rodriguez Work Phone: [facility] Work Phone: 10-16-2021 07:49-0500 Respiratory rate 16 /min Dr. Josué Rodriguez Work Phone: [facility] Work Phone: 10-16-2021 07:49-0500 Systolic blood pressure 126 mm[Hg] Dr. Josué Rodriguez Work Phone: [facility] Work Phone: 10-15-2021 06:35-0500 Body mass index (BMI) [Ratio] 53.8 kg/m2 Dr. Josué Rodriguez Work Phone: [facility] Work Phone: 10-15-2021 06:35-0500 Body temperature 97.6 [degF] Dr. Josué Rodriguez Work Phone: [facility] Work Phone: 10-15-2021 06:35-0500 Body weight 129.[address] Josué Rodriguez Work Phone: [facility] Work Phone: 10-15-2021 06:35-0500 Diastolic blood pressure 83 mm[Hg] Dr. Josué Rodriguez Work Phone: [facility] Work Phone: 10-15-2021 06:35-0500 Heart rate 69 /min Dr. Josué Rodriguez Work Phone: [facility] Work Phone: 10-15-2021 06:35-0500 Respiratory rate 16 /min Dr. Josué Rodriguez Work Phone: [facility] Work Phone: 10-15-2021 06:35-0500 SaO2% (BldA) [Mass fraction] 96 % Dr. Josué Rodriguez Work Phone: [facility] Work Phone: 10-15-2021 06:35-0500 Systolic blood pressure 131 mm[Hg] Dr. Josué Rodriguez Work Phone: [facility] Work Phone: 12-27-2019 08:51-0400 Body temperature 37.6 Deg [facility] Comment on above: Performed By: #### ABG ####[place] [id number] 12-26-2019 19:51-0400 Body temperature 36.6 Deg [facility] Comment on above: Performed By: #### PT #### [place] [id number] 12-26-2019 18:31-0400 Body temperature 36.2 Deg [facility] Comment on above: Performed By: #### PT #### [place] [id number] 12-26-2019 18:04-0400 Body temperature 37.0 Deg [facility] Comment on above: Performed By: #### URIN #### [place] [id number] Encounters Encounter Date Encounter Type Care Provider Facility Start: 01-26-2025 End: 01-26-[address] Josué Rodriguez MD Work Phone: [facility] Work Phone: Start: 01-26-2025 End: 01-26-[address] Josué Rodriguez MD -[facility] Start: 01-26-2025 End: 01-26-2025 ambulatory Josué Rodriguez Facility:[facility] Start: 01-05-2025 End: 01-05-[address] Ian Rondon MD -[facility] Work Phone: Start: 01-05-2025 End: 01-05-2025 ambulatory Josué Rodriguez Facility:[facility] Start: 12-29-2024 End: 12-29-[address] Josué Rodriguez MD -[facility] [place] Work Phone: Start: 12-29-2024 End: 12-29-2024 ambulatory Josué Rodriguez Facility:[facility] Start: 08-10-2024 ambulatory Josué Rodriguez Facility:[facility] Start: 07-06-2024 End: 07-06-2024 ambulatory Sharon Robles Facility:[facility] Start: 06-08-2024 End: 06-08-2024 ambulatory Josué Rodriguez Facility:[facility] Start: 12-29-2023 End: 12-29-[address] Josué Rodriguez Work Phone: [facility] Work Phone: Start: 12-29-2023 End: 12-29-[address] Josué Rodriguez Work Phone: [facility] Start: 12-08-2023 End: 12-08-[address] Josué Rodriguez Work Phone: [facility] Work Phone: Start: 12-01-2023 End: 12-01-[address] Joséu Rodriguez Work Phone: [facility] Work Phone: Start: 07-10-2023 End: 07-10-[address] Josué Rodriguez Work Phone: [facility] Work Phone: Start: 07-10-2023 End: 07-10-[address] [facility] Start: 05-12-2023 End: 05-12-[address] Josué Rodriguez Work Phone: [facility] Work Phone: Start: 05-01-2023 End: 05-01-[address] Josué Rodriguez Work Phone: [facility] Work Phone: Start: 05-01-2023 End: 05-01-[address] [facility] Start: 03-03-2023 End: 03-03-[address] Josué Rodriguez Work Phone: [facility] Work Phone: Start: 12-31-2022 End: 12-31-2022 ambulatory [facility] Work Phone: Start: 12-31-2022 End: 12-31-2022 Patient encounter procedure [facility] Start: 06-20-2022 End: 06-20-[address] Josué Rodriguez Work Phone: [facility] Work Phone: Start: 06-20-2022 End: 06-20-[address] [facility] Start: 06-03-2022 End: 06-03-[address] Josué Rodriguez Work Phone: [facility] Work Phone: Start: 06-03-2022 End: 06-03-[address] Josué Rodriguez Work Phone: [facility] Start: 05-14-2022 End: 05-14-[address] Josué Rodriguez Work Phone: [facility] Start: 12-03-2021 End: 12-03-[address] Josué Rodriguez Work Phone: [facility] Start: 12-02-2021 End: 12-02-[address] Josué Rodriguez Work Phone: [facility] Start: 10-16-2021 End: 10-16-[address] Josué Rodriguez Work Phone: [facility] Start: 10-15-2021 End: 10-15-[address] Josué Rodriguez Work Phone: [facility] Start: 08-16-[address] Josué Rodriguez Work Phone: [facility] Procedures Date Procedure Procedure Detail Performing Clinician Start: 12-02-[address] Leonardo Rodriguez Work Phone: Start: 12-26-2019 History of coronary artery bypass grafting H/O coronary artery bypass surgery Dr. Ian Rondon MD Comment on above: CABG x 4: WOOD-LAD, Free ISAK from the D1 SVG-OM1, SVG-D1, SVG-RPDA 12/26/19 Start: 12-13-2019 Antibody screen Comment on above: Performed By: #### T &S #### [place] [id number] Plan of Treatment Date Care Activity Detail Author Start: 03-07-2025 ambulatory Ambulatory Facility:[facility] Start: 06-03-2022 Procedure [facility] Work Phone: Procedure [facility] Work Phone: Radionuclide imaging of perfusion of myocardium under exercise stress [facility] Testosterone Free [Mass/volume] in Serum or Plasma [facility] Work Phone: Testosterone measurement [facility] Work Phone: [facility] Immunizations Immunization Date Immunization Notes Care Provider Fa wally 12-06-2020 Covid (Pfizer) Dr. Josué fletcher Work Phone: [facility] 11-15-2020 Covid (Pfizer) Dr. Josué fletcher Work Phone: [facility] 05-18-[address] Josué Rodriguez Work Phone: [facility] Payers Date Payer Category Payer Medicare [id number] 2024 Unknown [id number] 2023 Private Health Insurance [id number] 2023 Self-pay [id number] [facility] Health [facility] [address] [id number] Unknown [id number] Unknown [id number] Unknown [id number] Unknown [id number] Unknown [id number] Unknown [id number] Unknown [id number] Social History Date Type Detail Facility Start: 10-16-2021 End: 12-08-2023 Tobacco smoking status SCIS Unknown if ever smoked [facility] Start: 01-27-2020 None [facility] Start: 01-27-2020 Spouse/ Signif icant Other [facility] Start: 01-27-2020 Non-smoker [facility] Start: 1960 Sex Assigned At Male [facility] Start: 12-08-2023 Tobacco smoking status NHIS Never smoked tobacco (finding) [facility] Evaluation note 01-05-2025 Note Date & Type Note Facility 01-05-2025 Evaluation note Diagnosis Onset Date Resolution Chronic diastolic (congestive) heart failure chronic January 05, 2025 9:57am Essential (primary) hypertension chronic January 05, 2025 9:57am H/O coronary artery bypass surgery December 26, 2019 chronic January 05, 2025 9:57am Hypercholesterolemia chronic January 05, 2025 9:57am Paroxysmal atrial fibrillation December, chronic January 05, 2025 9:57am [facility] Work Phone: Evaluation note 12-26-2019 Note Date & Type Note Facility 12-26-2019 Evaluation note Diagnosis Onset Date Chronic diastolic (congestiv e) heart failure chronic Essential (primary) hypertension chronic H/O coronary artery bypass surgery December 26, 2019 chronic Hypercholesterolemia chronic Paroxysmal atrial fibrillation December, [facility] Work Phone: Evaluation note 12-26-2019 Note Date & Type Note Facility 12-26-2019 Evaluation note Diagnosis Onset Date Chronic diastolic (congestiv e) heart failure chronic Essential (primary) hypertension chronic H/O coronary artery bypass surgery December 26, 2019 chronic Hypercholesterolemia chronic Paroxysmal atrial fibrillation December, chronic Chronic diastolic (congestiv e) heart failure chronic Obstructive 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 Secondary pulmonary arterial hypertension chronic Super obese [facility] Work Phone: Evaluation note Note Date & Type Note Facility Evaluation note Diagnosis Onset Date Obstructive 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 Secondary pulmonary arterial hypertension chronic Super obese chronic Respiratory failure with hypoxia and hypercapnia resolved Atherosclerosis of coronary artery of [place] heart without angina pectoris chronic Chronic diastolic (congestiv e) heart failure chronic Essential (primary) hypertension chronic H/O coronary artery bypass surgery December 26, 2019 chronic Hypercholesterolemia chronic Paroxysmal atrial fibrillation December, chronic [facility] Work Phone: Evaluation note Note Date & Type Note Facility Evaluation note Diagnosis Onset Date Restrictive pattern present on pulmonary function testing acute Obstructive 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 Super obese chronic Respiratory failure with hyp oxia and hypercapnia resolved [facility] Work Phone: Evaluation note Note Date & Type Note Facility Evaluation note No assessment information availa ble [facility] Work Phone: Evaluation note Note Date & Type Note Facility Evaluation note Diagnosis Onset Date Restrictive pattern present on pulmonary function testing acute Obstructive 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 Super obese chronic [facility] Work Phone: Reason for referral (narrative) Note Date & Type Note Facility Reason for referral (narrative) No reason for referral information available [facility] Work Phone: Summary Purpose Family History No Family History Records Found Relationship Condition Age at Onset Recorded Date/T yamila mother Hypertension Unknown father Hypertension Unknown Cardiac disease Unknown Advance Directives No Advanced Directives Records Found Advance Directive Response Recorded Date/ Time Advance Directives No July 13, 2020 11:37am Living Will No July 13 11:37am Power of Trial Manager No July 13, 2020 11:37am Advance Directive Response Recorded Date/ Time Advance Directives No July 13, 2020 10:37am Living Will No July 13 10:37am Power of Trial Manager No July 13, 2020 10:37am Advance Directive Response Recorded Date/ Time Advance Directives No July 13, 2020 11:37am Hospital Course Note HNO ID: [id number] Author: Malissa pantoja (Artie) Anjali Service: Cardiovascular Surgery Author Type: Physician [employer]ter [employer] Type: Discharge Summary Filed: 01/01/2020 11:36 AM Note Text: Attestation signed by Bishop Mack at 01/02/2020 11:47 AM Attending Note I have personally performed a face to face assessment of the patient and have reviewed the PA/MACHINE SORTER note. My diggs findings include: Assessment/Plan are as above Other additions or changes: None Signature: Bishop Mack MD Date: 01/02/2020 Time: 11:47 AM DISCHARGE SUMMARY PATIENT NAME: Hilaria Woo Code Status: Not on file Highest Readmission Risk Score: 18 The 30 day readmissions risk score is derived from an internally validated risk model which evaluates patient level characteristics, utilization history, medication orders and lab results up until the day of discharge. (more content not included)... Note HNO ID: [id number] Author: Chance Krueger (Pa) Service: Cardiac Surgery Author Type: Physician Setter [employer] Type: Procedures Filed: 12/29/2019 10:36 AM Note Text: BEDSIDE PROCEDURE NOTE GENERIC PROCEDURE Procedure Date/Start Time: 12/29/2019 10:35 AM Performed by: Jonathan Krueger (Pa) Authorized by: Jonathan Krueger (Pa) Pre-procedure Details: Personnel directly involved with the procedure wore the appropriate PPE. The area was prepped with alcohol and allowed to dry. Medications: None Procedure Details: Area was prepped using alcohol. Suture was cut. Ventricular pacing wires were pulled without difficulty. Patient was instructed to remain in his seated position for one hour. There were no immediate complications. Post-procedure Details: Patient tolerated the procedure well with no immediate complications Estimated Blood Loss: Scant Specimens Sent: None SIGNATURE: Jonathan Krueger PA-C PATIENT NAME: Hilaria Woo DATE: December 29, 2019 TIME: 10:34 AM PAGER/CONTACT #: [id number] Procedure Findings Note HNO ID: [id number] Author: Chance Krueger (Pa) Service: Cardiac Surgery Author Type: Physician Setter [employer] Type: Procedures Filed: 12/29/2019 10:36 AM Note Text: BEDSIDE PROCEDURE NOTE GENERIC PROCEDURE Procedure Date/Start Time: 12/29/2019 10:35 AM Performed by: Jonathan Krueger (Pa) Authorized by: Jonathan Krueger (Pa) Pre-procedure Details: Personnel directly involved with the procedure wore the appropriate PPE. The area was prepped with alcohol and allowed to dry. Medications: None Procedure Details: Area was prepped using alcohol. Suture was cut. Ventricular pacing wires were pulled without difficulty. Patient was instructed to remain in his seated position for one hour. There were no immediate complications. Post-procedure Details: Patient tolerated the procedure well with no immediate complications Estimated Blood Loss: Scant Specimens Sent: None SIGNATURE: Jonathan Krueger PA-C PATIENT NAME: Hilaria Woo DATE: December 29, 2019 TIME: 10:34 AM PAGER/CONTACT #: [id number] Chief Complaint and Reason for Visit Chief Complaint ALSO E ORDER DR LOONEY H/2 ORDERING DOCTORS 6 M FU E ORDERS 3 M FU ACUTE KIDNEY INJURY URINE SAMPLE Reason for Visit Obstructive sleep ap jaden Secondary pulmonary arterial hypertension Super obese Respiratory failure with hypoxia and hypercapnia Atherosclerosis of coronary artery of [place] heart without angina pectoris Chronic diastolic (congestive) heart failure Essential (primary) hypertension H/O coronary artery bypass surgery Hypercholesterolemia Paroxysmal atrial fibrillation Chief Complaint 6 M FU Reason for Visit Restrictive pattern present on pulmonary function testing Obstructive sleep apnea Super obese Respiratory failure with hypoxia and hypercapnia Chief Complaint 6 M FU E ORDERS Reason for Visit Restrictive pattern present on pulmonary function testing Obstructive sleep apnea Super obese Respiratory failure with hypoxia and hypercapnia Chief Complaint 7 m fu e orders Reason for Visit Chronic diastolic (c ongestive) heart failure Essential (primary) hypertension H/O coronary artery bypass surgery Hypercholesterolemia Paroxysmal atrial fibrillation Chief Complaint e orders 1 Y FU Reason for Visit Restrictive pattern present on pulmonary function testing Obstructive sleep apnea Super obese Chief Complaint 9 M FU 4 M FU Reason for Visit Chronic diastolic (c ongestive) heart failure Essential (primary) hypertension H/O coronary artery bypass surgery Hypercholesterolemia Paroxysmal atrial fibrillation Chronic diastolic (congestive) heart failure Obstructive sleep apnea Secondary pulmonary arterial hypertension Super obese Chief Complaint Admit Date 2 Y FU January 05, 2025 9:57am Reason for Visit Admit Date Chronic diastolic (congestive) heart apradise lure January 05, 2025 9:57am Essential (primary) hypertension January 9:57am H/O coronary artery bypass surgery January 052024 9:57am Hypercholesterolemia January 05, 2025 9:57a m Paroxysmal atrial fibrillation January 05, 2025 9:57am Additional Source Comments (unrecognized sect ion and content) No Status Records FoundNo Status Records FoundNo Status Records Found INFORMATION SOURCE (unrecogn ized section and content) DATE CREATED AUTHOR 05/22/2020 [facility] DATE CREATED AUTHOR AUTHOR'S ORGANIZ ATION 05/22/2020 [facility] DATE CREATED AUTHOR AUTHOR'S ORGANIZ ATION 02/04/2025 [facility] Goals (unrecognized section and content) Goals may be documented in a n alternate sectionGoals may be documented in an alternate sectionGoals may be documented in an alternate sectionGoals may be documented in an alternate sectionGoals may be documented in an alternate sectionGoals may be documented in an alternate sectionGoals may be documented in an alternate sectionGoals may be documented in an alternate sectionGoals may be documented in an alternate section Care Teams (unrecognized sec tion and content) Team Status: Active Member Role Status Dates Dr. Josué Rodriguez MD Family Provider Active Dr. Josué Rodriguez MD Primary Care Provider Active Team Status: Inactive Member Role Status Dates Dr. Josué Rodriguez MD Primary Care Provider Active ADALID Llanos Attending Provider Active Team Status: Inactive Member Role Status Dates Dr. Josué Rodriguez MD Primary Care Provider, Referring P rovider Active Jefferson España NP, QUILL REAMER-C Attending Provider Active Team Status: Inactive Member Role Status Dates Dr. Josué Rodriguez MD Primary Care Provide r, Attending Provider, Referring Provider Active Team Status: Inactive Member Role Status Dates Dr. Josué Rodriguez MD Primary Care Provider, Referring P rovider Active Dr. Phi Sutherland MD Attending Provider Active Team Status: Inactive Member Role Status Dates Dr. Josué Rodriguez MD Primary Care Provider Active Dr. Sharon Robles MD Attending Provider, Referri ng Provider Active Team Status: Inactive Member Role Status Dates Dr. Josué Rodriguez MD Primary Care Provider, Referring P rovider Active Kika Mendoza NP, QUILL REAMER-C Attending Provider Active Team Status: Inactive Member Role Status Dates Dr. Josué Rodriguez MD Primary Care Provider, Attending P rovider Active Team Status: Active Member Role Status Dates Dr. Josué Rodriguez MD Primary Care Provider Active Team Status: Inactive Member Role Status Dates Dr. Josué Rodriguez MD Primary Care Provider Active Start: December 29, 2024 End: December 29, 2024 Dr. Josué Rodriguez MD Attending Provider Active St art: December 29, 2024 End: December 29, 2024 Dr. Josué Rodriguez MD Referring Provider Active St art: December 29, 2024 End: December 29, 2024 Team Status: Inactive Member Role Status Dates Dr. Josué Rodriguez MD Primary Care Provider Active Start: January 05, 2025 End: January 05, 2025 Dr. Josué Rodriguez MD Referring Provider Active St art: January 05, 2025 End: January 05, 2025 Dr. Ian Rondon MD Attending Provider Active S tart: January 05, 2025 End: January 05, 2025 Team Status: Inactive Member Role Status Dates Dr. Josué Rodriguez MD Primary Care Provider Active Start: January 26, 2025 End: January 26, 2025 Dr. Josué Rodriguez MD Attending Provider Active St art: January 26, 2025 End: January 26, 2025 Dr. Josué Rodriguez MD Referring Provider Active St art: January 26, 2025 End: January 26, 2025 FOR RECORDS PERTAINING TO PATIENTS WHO ARE OR HAVE BEEN ENROLLED IN A CHEMICAL DEPENDENCY/SUBSTANCEABUSE PROGRAM, SOME INFORMATION MAY BE OMITTED. This clinical summary was aggregated from multiple sources. Caution should be exercised in using it in the provision of clinical care. This summary normalizes information from multiple sources, and as a consequence, information in this document may materially change the coding, format and clinical context of patient data. In addition, data may be omitted in some cases. CLINICAL DECISIONS SHOULD BE BASED ON THE PRIMARY CLINICAL RECORDS. [facility] [employer] provides no warranty or guarantee of the accuracy or completeness of information in this document.
--- NOTE | 2025-03-07 17:37 | STRESSREP_ITS ---
Stress Test Report Pharmacologic myocardial perfusion stress test. 64-year-old man with a history of coronary disease status post coronary bypass surgery. Resting EKG demonstrates sinus bradycardia with a rate of 55 bpm. Premature ventricular complexes were noted. Resting blood pressure is 120/60 mmHg. 0.4 mg of regadenoson was infused per usual protocol followed by rapid intravenous saline flush injection. Continuous EKG monitoring was performed. The maximum heart rate was 68 bpm which was 44% of max impacted heart rate the maximum workload was 1 metabolic equivalent. At rest there were no ST or T wave changes noted to suggest ischemia and at peak infusion nonspecific ST changes were noted which did not meet the criteria for ischemia. No clinical angina is noted. The final blood pressure was 100/60 mmHg. Myocardial perfusion protocol. 14.9 mCi of technetium 99m sestamibi was injected at rest. 0.4 mg of regadenoson was infused per usual protocol. At peak infusion 45 mCi of technetium 99m sestamibi was injected stress images were obtained stress and rest images were reconstructed and compared in the short axis vertical long and horizontal long axis. Gated images were also obtained. Perfusion SPECT analysis: Review of the stress images demonstrate normal uptake of tracer noted in all areas of the myocardium except for the basal inferior wall and mid inferior wall extending to the apex with a large perfusion defect. The resting images demonstrate a similar pattern in this area. The above is suggestive of a previous inferior infarct. Minimal improvement is noted to suggest mild alfie- infarct ischemia only. Gated SPECT analysis: The gated ejection fraction is 30%. Conclusion: Pharmacologic myocardial perfusion stress test with previous inferior infarct and minimal to mild alfie-infarct ischemia. Reduced ejection fraction.
== END | disposition home or self-care (01) ==
PROVIDERS: PCP Family Medicine; Referring Provider Internal Medicine Cardiovascular Disease; Visit Provider Internal Medicine Cardiovascular Disease
DX: Z95.1 Presence of aortocoronary bypass graft (principal); I25.10 Atherosclerotic heart disease of native coronary artery without angina pectoris
CPT/HCPCS: 78452; 93017; 93306; A9500; Q9957; A4216; C8929; J2785

== ENCOUNTER → 2025-06-29 | Outpatient (CLI) | payer MEDICARE, OTHER, SELFPAY ==
[2020-05-30 07:03] VITALS: BMI 39.2
[2025-06-29 12:02] LABS: Hematocrit 41.2 % (40-54); Hemoglobin 13.1 g/dL (13.0-16.5); Mean Corp Hgb Conc 31.8 g/dL (32-36); Mean Corpuscular Volume 95.8 fL (80-94); Mean Platelet Vol. 11.8 fl (6.2-12.0); Platelet Count 179 K/mm3 (150-450); RBC Distribution Width CV 14.8 % (11.6-14.6); RBC Distribution Width SD 52.0 fl (35.1-43.9); Red Blood Count 4.30 M/mm3 (4.6-6.2); White Blood Count 4.8 K/mm3 (4.4-11.0)
[2025-06-29 12:26] LABS: PTHIN 94 pg/mL (11-61)
[2025-06-29 12:42] LABS: Albumin, Serum 4.1 g/dL (3.4-4.8); Anion Gap 9 (5-15); BUN 33 mg/dL (4-19); BUN/Creat Ratio 21.5 RATIO (10-20); Calcium,Total 9.1 mg/dL (7.6-11.0); Carbon Dioxide 28.8 mmol/L (21.0-32.0); Chloride 101 mmol/L (98-108); Glucose 142 mg/dL (70-99); Potassium 4.6 mmol/L (3.3-5.1); Vitamin D,25 Hydroxy 26.5 ng/mL (30-100)
[2025-06-29 12:45] LABS: Creatinine, Urine (random) 112.00 mg/dL (39.00-259.00); Protein, Urine (Random) 12.4 mg/dL (0.0-12.0); Protein:Creat Ratio 111 mg/g CRE (0-200)
== END | disposition home or self-care (01) ==
LOC: MTLAB 09:48
PROVIDERS: PCP Family Medicine; Referring Provider Internal Medicine Nephrology; Visit Provider Internal Medicine Nephrology
DX: N18.31 Chronic kidney disease, stage 3a (principal); D64.9 Anemia, unspecified
CPT/HCPCS: 36415; 80069; 82306; 82570; 83970; 84156; 85027